=== PATIENT | female | born 1980 | race Caucasian/White ===

== ENCOUNTER → 2019-11-04 09:43 | Outpatient (CLI) | payer MEDICARE, SELFPAY ==
--- NOTE | 2019-11-04 09:52 | RAD_ITS ---
STUDY: AIR-CONTRAST UPPER GI SERIES. REASON FOR EXAM: Female, 39 years old. Altered bowel habits -- diarrhea about 6 times a day everyday, cramping -- started about 8 months ago, getting worse x 2 months FLUOROSCOPY TIME (if supplied): ( 50 seconds ) minutes/seconds TECHNIQUE: The patient ingested barium. Multiple images of the esophagus, stomach and duodenum were obtained. COMPARISON: None. FINDINGS: The esophagus is unremarkable. There is no evidence of obstruction. No mass lesion is seen. There is evidence of a small sliding hiatal hernia without gastroesophageal reflux. The remainder of the stomach and duodenum is unremarkable. IMPRESSION: Small sliding hiatal hernia without gastroesophageal reflux. Electronically Signed: Randy Burch, at 11:15 EST , Service support , STUDY: SMALL BOWEL FOLLOW-THROUGH EXAMINATION. REASON FOR EXAM: Female, 39 years old. Altered bowel habits -- diarrhea about 6 times a day everyday, cramping -- started about 8 months ago, getting worse x 2 months FLUOROSCOPY TIME (if supplied): ( 50 seconds ) minutes/seconds TECHNIQUE: The patient ingested barium. A small bowel follow-through examination was then obtained. COMPARISON: None. FINDINGS: The small bowel transit is normal. There is no evidence of intrinsic or extrinsic small bowel disease. The terminal ileum is unremarkable. RAD/Upper GI/w Small Bowel IMPRESSION: Unremarkable small bowel examination. Electronically Signed: Randy Burch, at 11:17 EST , Service support ,
== END ==
PROVIDERS: Family Provider Family Medicine; PCP Family Medicine; Referring Provider Nurse Practitioner Adult Health; Visit Provider Nurse Practitioner Adult Health
DX: R19.4 Change in bowel habit (principal)
CPT/HCPCS: 74246; 74248

== ENCOUNTER 2019-12-23 11:19 | Day surgery (SDC) | payer MEDICARE, SELFPAY ==
--- NOTE | 2019-12-22 18:12 | PCM.HP.BLA ---
History and Physical Date of Admission: 12/23/19 Sheila Quiroz a 39 year old female who is returning for follow up regarding altered bowel habits. I saw the patient in consultation on 10/21/19. That note has been reviewed. UGI-SBFT was essentially normal, showing only a small hiatal hernia. ? The patient has a history of DM, HTN, CYN, chronic fibromyalgia pain (sees pain management), and Bipolar 1 disorder. ? ? Presenting complaint: The patient presents today reporting a 9 month history of intermittent diarrhea. ?Has 4-6 bowel movements a day of loose stool. ?Bowels have become more frequent over the past 1 or 2 months. Stools are brown.?Denies any blood in the stool. ?Now is more watery type diarrhea. ?Does have occasional stool leakage in the middle of the night. ? ? Takes metformin in the morning with her breakfast. Her first bowel movement can be before she eats anything. ? Reports a 100 pound weight loss over the past 2 years. ?She has changed her diet cutting out flour and sugar. ? ? Using some [id number] Pepto-Bismol and Imodium, up to the maximum without significant improvement. ?Homeopathic things made it worse. ? She has tried to increase her fiber in her diet. ?She does have some cramping that occurs with the bowel movements. ? ? Component Latest Ref Rng & Units 10/11/2019 Shigella spp./Enteroinvasive E.coli DNA ? Not Detected Campylobacter jejuni/coli DNA ? Not Detected Shiga toxin-producing gene(s) ? Not Detected Salmonella spp. DNA ? Not Detected Specimen Request ? Specimen received in sterile container. Test Results ? Positive for lactoferrin, which may indicate presence of fecal white blood cells (A) C. difficile PCR ? Negative for C. difficile toxin by PCR ? ? REVIEW OF SYSTEMS: GENERAL: Weight loss Last 10 Encounter Wt Readings: Date: Wt: 11/27/2019 121.6 kg (268 lb) 10/21/2019 125.6 kg (277 lb) 10/21/2019 126.1 kg (278 lb) 09/23/2019 128.4 kg (283 lb) 07/25/2019 133 kg (293 lb 3.2 oz) 07/15/2019 132.9 kg (293 lb) 04/19/2017 161.5 kg (356 lb) 08/05/2016 156 kg (344 lb) 04/13/2016 160.6 kg (354 lb) 01/13/2016 166 kg (366 lb) RESPIRATORY: Negative for cough, hemoptysis, wheezing, COPD, dyspnea or shortness of breath CARDIOVASCULAR: Hypertension. No chest pain or palpitations. GI: The patient states that her appetite has been adequate. She does get hungry. There has been no nausea, no vomiting. She denies dysphagia and denies odynophagia. There has not been indigestion or heartburn. There has not been regurgitation. Bowel habits have been irregular. There has been diarrhea. There has not been constipation. The patient denies rectal bleeding. There has not been melena. Intermittent abdominal cramping that is located in the left lower and right lower quadrant. TRANSFER PROFESSOR: Negative for abnormal vaginal bleeding, abnormal vaginal discharge. LMP: 10/14/19. MUSCULOSKELETAL: muscle pain related to fibromyalgia. PSYCH: as reported above HEMATOLOGY/LYMPHOLOGY Negative for prolonged bleeding, bruising easily or swollen nodes ENDOCRINE: Takes an OTC thyroid supplement. Also on metformin. NEURO: No history of headaches, syncope, paralysis, seizures or tremors All other reviewed and negative other than HPI. ? ? PAST MEDICAL HISTORY ? Allergic rhinitis due to other allergen ? ? Bipolar I disorder, most recent episode (or current) unspecified ? ? hosp 04 mutile suicide attempts/Dr. Jenkins ? Hypercalcemia ? ? Migraine without aura ? ? Morbid obesity (HCC) ? ? stated BMI HT: 68 WT: 375 ? Myalgia and myositis, unspecified ? ? Other specified cardiac dysrhythmias(427.89) ? ? PMH - PAST MEDICAL HISTORY OF ? ? MONO ? Unspecified essential hypertension ? ? ? PAST SURGICAL HISTORY ? EXTRACTION, ERUPTED TOOTH OR EXPOSED ROOT (ELEVATION AND/OR FORCEPS REMOVAL) ? 1995 ? [place] teeth ? REMOVAL ADENOIDS,PRIMARY,<12 Y/O ? 1994 ? Adenoidectomy ? REMOVAL OF TONSILS,<12 Y/O ? 1994 ? Tonsillectomy ? ? FAMILY HISTORY ? No Known Problems Mother ? ? other (stiff persons disease) Father ? ? other (autoimmune disorder) Father ? ? Diabetes Brother ? ? Diabetes Maternal Grandmother ? ? ? CURRENT MEDICATIONS ? metFORMIN (GLUCOPHAGE) 500 mg tablet Take 1 tablet by mouth daily with breakfast. 30 tablet 2 ? topiramate (TOPAMAX) 100 mg tablet Take 100 mg by mouth once daily. ? ? ? topiramate (TOPAMAX) 200 mg tablet Take 400 mg by mouth once daily. ? ? ? gabapentin (NEURONTIN) 600 mg tablet Take 600 mg by mouth four times daily. ? ? ? valbenazine (INGREZZA) 80 mg cap Take 80 mg by mouth once daily. ? ? ? meloxicam (MOBIC) 15 mg tablet Take 15 mg by mouth once daily as needed. ? ? ? buprenorphine HCl (BELBUCA) [address] 150 mcg between cheek and gum q 12 HR. ? ? ? valbenazine (INGREZZA) 80 mg cap Take 80 mg by mouth daily at bedtime. ? ? ? lisdexamfetamine (VYVANSE) 60 mg capsule Take 60 mg by mouth once daily. ? ? ? LORazepam (ATIVAN) 1 mg tablet Take 1 mg by mouth every 8 hours as needed. ? ? ? blood sugar diagnostic (CiespaceTOUCH VERIO) test strip testing 2-3 times daily - dx E11.9 - Insulin: Yes 100 Strip 12 ? benztropine (COGENTIN) 2 mg tablet Take 2 mg by mouth four times daily. ? ? ? losartan (COZAAR) 25 mg tablet Take 25 mg by mouth twice daily. ? ? ? Lancets (ONE TOUCH DELICA) lancets Test blood sugar(s) 2-3 daily. Dx: uncontrolled diabetes (250.02). Insulin: Yes 100 Each 5 ? tretinoin (RETIN-A) 0.025 % topical cream Apply 1 application to affected area daily at bedtime. (Patient not taking: Reported on 04/19/2017) 45 g 2 ? furosemide 40 mg tablet take 1 1/2 tablet daily ? ? ? calcium carbonate (CALTRATE 600) 600 mg (1,500 mg) tab Take 1 tablet by mouth twice daily. ? 0 ? buprenorphine (BUTRANS) 5 mcg/hour Apply 1 Patch as directed once each week. ? 0 ? ziprasidone 80 mg capsule Take 80 mg by mouth once daily. ? DAILY MULTI-VITAMIN ORAL Take 1 tablet by mouth once daily. ? ? ? lamotrigine (LAMICTAL) 200 mg ORAL tablet Take 400 mg by mouth once daily. ? ? 0 ? carvedilol (COREG) 25 mg ORAL tablet Take by mouth. 2 tablets twice daily ? 0 ? ? SOCIAL HISTORY: Patient is single. She quit smoking 11 years ago. She reports her alcohol use as never. ? ? PHYSICAL EXAMINATION: Blood pressure 128/70, pulse 64, weight 121.6 kg (268 lb), last menstrual period 11/14/2019, SpO2 98 %. General Appearance: Well appearing, alert, in no acute distress, well-hydrated, well nourished. Skin: Skin color, texture, turgor normal, no suspicious rashes or lesions. Head: Normocephalic, no masses, lesions or abnormalities. Eyes: Anicteric sclera. Oropharynx: Lips, mucosa, and tongue normal, teeth and gums normal, oropharynx normal. Neck: Supple, no adenopathy; thyroid symmetric, normal size . Lungs: lungs clear to auscultation. No wheezing, rhonchi, rales. Heart: RRR without murmur . Abdomen: Abdomen soft, non-tender. Bowel sounds normal. No masses, organomegaly. Extremities: No deformities, edema, skin discoloration, clubbing or cyanosis. Peripheral Pulses: Normal. Neurologic: Gait normal. Sensation grossly intact. ? ? Impression: functional bowel/ IBS. Consider microscopic colitis ? ? Plan: This patient will be scheduled [facility] a colon[facility] She will be using Golytely as the prep. The preparation, as well as the procedure, has been explained in detail. The risks, benefits, anticipated outcomes and possible complications, including failure to complete the endoscopy and perforation, were mentioned. ?I explained the procedure in understandable terms and the patient was given printed material concerning the planned procedure. The patient had the opportunity to ask questions concerning the planned procedure. The patient freely consents to the planned procedure. ? The patient is asked to call with any questions for concerns, or should there be any change in health status between now and the scheduled procedure. ? I have reviewed the information that the MA entered for this encounter. I spent 30 minutes in the visit, with greater than 50% of the total [id number] time of the visit in counseling and coordination of care. ? Ronel Montana RN [employer].ASSOCIATE PROJECT MANAGER
[2019-12-23] VITALS (8 sets, daily range): BP systolic 97–118; BP diastolic 65–70; PULSE 53–61; RESP 16; TEMP 36.1–36.2; O2SAT 16–100; BMI 40.4
--- NOTE | 2019-12-23 | COLBX_PTH ---
PATIENT: PRADEEP CROWE LOC: EN U#:[id number] AGE/SX: 39/F ROOM: RE12/23/[address]: Dr. Anny Trimble MD : 1980 BED: DIS: 12/23/2019 SPEC #: [id number] RECD: 12/23/19 13:46 STATUS: MIKE REAlida #: [id number] SUZI: 12/23/19 00:[address]: Anny Trimble DEPT: SURGICAL PATHOLOGY RECD BY: Eliseo Sandra ENTERED: 12/23/19 13:46 SP TYPE: COLON BX OTHR DR: Dr. Torres Moore MD Tissues: COLON BIOPSY Procedures: Surgery Specimen Level IV HEADER OPERATION: Colonoscopy (MAC) PRE-OP DIAGNOSIS: Altered bowel habits TISSUE SUBMITTED: Random colon biopsies MICROSCOPIC DIAGNOSIS Colon, random biopsy: Fragments of colonic mucosa with pigment laden macrophages, consistent with melanosis coli. SJ:phi 12/24/19 MICROSCOPIC DESCRIPTION Slides are reviewed. GROSS DESCRIPTION Received in fixative is one container labeled with the patient's name and designated random colon biopsy. The specimen consists of multiple irregular fragments of light liu soft tissue that in aggregate measure 1.5 x 0.7 x 0.1 cm. The specimen is totally submitted in one cassette. / SJ:phi 12/23/19 TC:5 CPT: 31627
[2019-12-23 11:55] LABS: Bedside Glucose 108 mg/dL (70-110)
[2019-12-23] MEDS: Lactated Ringers 1,000 ML 75 ML IV (11:56)
[2019-12-23 11:59] LABS: Internal QC Validated? YES +Cl - CLEAR BKGD; Pregnancy, Urine Negative Negative
--- NOTE | 2019-12-23 13:30 | OP.CCLET_ITS ---
12/23/2019 Torres Moore Re : Colonoscopy procedure for Sheila Arias Teresa This procedure was performed on Monday, December 23, 2019. My impressions and recommendations are as follows: Impressions : - Preparation of the colon was fair. - Non-bleeding internal hemorrhoids. - Biopsies were taken with a cold forceps from the entire colon for evaluation of microscopic colitis. Recommendations : - Discharge patient to home (ambulatory). - Resume previous diet. - Continue present medications. - Await pathology results. - Return to nurse practitioner in 1 week. - No recommendation at this time regarding repeat colonoscopy due to age. My findings are described in the full procedure note, which is enclosed. If I can be of further assistance, please feel free to contact me at Doctor phone number(s): , Work: . Sincerely, MD Anny Vergara MD 12/23/2019 1:29:37 PM This report has been signed electronically.
--- NOTE | 2019-12-23 13:30 | OP.COLON_ITS ---
Patient Name: Sheila Quiroz Procedure Date: 12/23/2019 12:40 PM Date of : 1980 Age: 39 Procedure: Colonoscopy Indications: Generalized abdominal pain, Change in bowel habits Providers: Anny Trimble MD Referring MD: Torres Moore Medicines: See the Anesthesia note for documentation of the administered medications Patient Profile: Refer to note in patient chart for documentation of history and physical. Last Colonoscopy: none. The patient's first colonoscopy is today. Complications: No immediate complications. Estimated blood loss: Minimal. Procedure: Pre-Anesthesia Assessment: - see anesthesia note After I obtained informed consent, the scope was passed under direct vision. Throughout the procedure, the patient's blood pressure, pulse, and oxygen saturations were monitored continuously. The pediatric colonoscope was introduced through the anus and advanced to the cecum, identified by the appendiceal orifice, IC valve and transillumination. The colonoscopy was performed with difficulty due to a redundant colon. Successful completion of the procedure was aided by changing the patient to a supine position and manual pressure. The patient tolerated the procedure well. The quality of the bowel preparation was fair and poor, there was still retained fecal material. Therefore lavage and aspiration was done to clear the fecal material. This took some time. The marsh were cleared adequately, however, polyps less than 1 cm may be missed due to the inadequacyof the colon cleansing preparation. Scope In: 12:49:22 PM Scope Withdrawal Time 0 hours 16 minutes 35 seconds Scope Out: 1:24:24 PM Total Procedure Duration Time 0 hours 35 minutes 2 seconds Findings: The perianal and digital rectal examinations were normal. Pertinent negatives include normal sphincter tone. Non-bleeding internal hemorrhoids were found. Biopsies for histology were taken with a cold forceps from the entire colon for evaluation of microscopic colitis. Impression: - Preparation of the colon was fair. - Non-bleeding internal hemorrhoids. - Biopsies were taken with a cold forceps from the entire colon for evaluation of microscopic colitis. Recommendation: - Discharge patient to home (ambulatory). - Resume previous diet. - Continue present medications. - Await pathology results. - Return to nurse practitioner in 1 week. - No recommendation at this time regarding repeat colonoscopy due to age. Procedure Code(s): --- Professional --- 38082, Colonoscopy, flexible; with biopsy, single or multiple Diagnosis Code(s): --- Professional --- K64.8, Other hemorrhoids R10.84, Generalized abdominal pain R19.4, Change in bowel habit CPT copyright 2017 [employer]. All rights reserved. The codes documented in this report are preliminary and upon cigarette tipper review may be revised to meet current compliance requirements. MD Anny Vergara MD 12/23/2019 1:29:37 PM This report has been signed electronically. Number of Addenda: 0 Note Initiated On: 12/23/2019 12:40 PM
== END 2019-12-23 14:08 | disposition home or self-care (01) ==
LOC: EN 11:19 → AC 11:22
PROVIDERS: Anesthesiology; PCP Family Medicine; Referring Provider Surgery; Visit Provider Surgery
PROC: 0DJD8ZZ Inspection of Lower Intestinal Tract, Via Natural or Artificial Opening Endoscopic (ICD-10-PCS; CPT 45378; principal; 2019-12-23 12:25)
DX: K63.89 Other specified diseases of intestine (principal); K64.8 Other hemorrhoids; R10.84 Generalized abdominal pain; F31.9 Bipolar disorder, unspecified; E66.01 Morbid (severe) obesity due to excess calories; I10 Essential (primary) hypertension; E11.9 Type 2 diabetes mellitus without complications; Z68.44 Body mass index [BMI] 60.0-69.9, adult; Z79.4 Long term (current) use of insulin; Z87.891 Personal history of nicotine dependence
CPT/HCPCS: 45380; 81025; 82962; 88305; J7120; J2405

== ENCOUNTER → 2023-07-17 | Outpatient (CLI) | payer MEDICARE, MEDICAID, SELFPAY ==
--- NOTE | 2023-07-17 14:34 | NEURO_ITS ---
NCS and/or EMG Patient Report Ordering Doctor: Luis Vee DATE OF SERVICE: 07/17/23 Findings: Nerve conduction studies were performed in the right and left lower extremities. The right peroneal motor study recording the extensor digitorum brevis showed a normal amplitude, normal distal latency and normal conduction velocity. No conduction block or focal slowing was present across the fibular neck. The right tibial motor study recording the abductor hallucis brevis showed a reduced amplitude, normal distal latency and borderline conduction velocity. Right sural sensory response showed a reduced amplitude and slightly slowed conduction velocity. Right superficial peroneal sensory response showed a red uced amplitude and borderline conduction velocity. Right superficial radial sensory response showed a normal amplitude and conduction velocity. The left peroneal motor study recording the extensor digitorum brevis showed a normal amplitude, normal distal latency and normal conduction velocity. No conduction block or focal slowing was present across the fibular neck. The left tibial motor study recording the abductor hallucis brevis showed a borderline amplitude, normal distal latency and normal conduction velocity. Left sural sensory response showed a normal amplitude and conduction velocity. Left superficial peroneal sensory response showed a normal amplitude and conduction velocity. Needle EMG of the right lower extremity muscles was performed. No denervation was present in any muscle. Motor units were mildly polyphasic in the extensor hallucis longus. All other motor unit morphology, activation and recruitment patterns were normal. Impression: This is an abnormal study. 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 Given the prominent pes cavus deformity on examination, a hereditary neuropathy (i.e., CMT2) could be considered. Yomi Herman D.O. Multi Select Codes Neurology Neurology Interp Codes: 83464-05 Musc test done w/n test comp (interp) and 30671-38 Nr cndj test 9-10 studies (interp)
== END | disposition home or self-care (01) ==
LOC: PSN 12:44
PROVIDERS: PCP Family Medicine; Referring Provider Podiatrist; Visit Provider Podiatrist
DX: G62.9 Polyneuropathy, unspecified (principal); G60.8 Other hereditary and idiopathic neuropathies
CPT/HCPCS: 95885; 95911

== ENCOUNTER → 2025-05-20 | Outpatient (CLI) | payer MEDICARE, MEDICAID, SELFPAY ==
--- NOTE | 2025-05-20 12:45 | MRI_ITS ---
PROCEDURE: UPPER EXT JOINT ONLY(ROUTINE) 05/20/2025 REASON FOR EXAM: PAIN, RULE OUT CUFF TEAR TECHNIQUE: UPPER EXT JOINT ONLY(ROUTINE) Multiplanar and multisequence images were obtained without IV contrast administration. COMPARISON: April 21, 2025 x-ray FINDINGS: Bone Marrow: There is no bony contusion or occult fracture. Rotator cuff: There is no muscular atrophy. There is a full-thickness, full width tear of the supraspinatus with 1.8 cm of retraction. There is moderate distal infraspinatus tendinopathy and subscapularis tendinopathy without full-thickness tear or retraction. The teres minor appears intact. AC joint: The AC joint is aligned without evidence of separation. There is a type 3 acromion with impingement configuration. Labrum: The labrum appears intact. Biceps tendon: The biceps tendon is present in the biceps tendon groove, with intact anchors. Effusion: There is a small joint effusion which extends into the subacromial subdeltoid bursa. MRI/Upper Ext Joint Only(Routine) IMPRESSION: There is a full-thickness, full width tear of the supraspinatus with 1.8 cm of retraction. There is moderate distal infraspinatus tendinopathy and subscapularis tendinopa thy without full-thickness tear or retraction. There is a type 3 acromion with impingement configuration. There is a small joint effusion which extends into the subacromial subdeltoid b ursa. Reading Location: [facility]
== END | disposition home or self-care (01) ==
LOC: OPMRI 12:22
PROVIDERS: PCP Family Medicine; Referring Provider Orthopaedic Surgery Sports Medicine; Visit Provider Orthopaedic Surgery Sports Medicine
DX: M25.512 Pain in left shoulder (principal)
CPT/HCPCS: 73221

== ENCOUNTER 2025-06-11 05:18 | Day surgery (SDC) | payer MEDICARE, MEDICAID, SELFPAY ==
[2025-06-11] VITALS (9 sets, daily range): BP systolic 84–107; BP diastolic 50–77; PULSE 45–48; RESP 14–16; TEMP 36.2–36.4; O2SAT 93–100; BMI 29.1
--- OUTSIDE RECORDS SUMMARY | 2025-06-11 05:22 | XMS RPT_ITS | CCD ---
Author Organization [facility] Care Team Providers Care Fire Equipment Inspector Name Role Phone NAJMA URIBE, TORRES Primary Care Physician Torres Yao MD Primary Care Provider [phone] Torres Yao MD Primary Care Provider Torres Yao MD Primary Care Provider Torres Yao MD Primary Care Provider NAJMA URIBE, TORRES Primary Care Physician [phone] Torres Yao MD Primary Care Provider MATTIE BAEZ PA-C Attending TORRES Crocker MD Primary Care Unavailable NELDA LOWE Attending Unavailable TORRES YAO MD Primary Care Unavailable PILI STAFF ELECTRONIC WARFARE OFFICER-ADIEL CAMEJO Attending TORRES Crocker MD Primary Care Unavailable DR ANABEL TOLEDO MD Attending TORRES Elise MD Primary Care Unavailable Mallory STAFF ELECTRONIC WARFARE OFFICER.Beryl CAMEJO Unavailable Suppan STAFF ELECTRONIC WARFARE OFFICER.BASHIR, Ellen A Unavailable Suppsukhdev STAFF ELECTRONIC WARFARE OFFICER.GROUP RESERVATIONS COORDINATOR, Ellen A Unavailable Dr. Torres Yao MD Primary Care Provider Dr. Torres Yao MD Referring Provider Mahad Saleh MD Attending Provider [phone] Manuel Leary MD Attending Provider ELLEN RENE Referring Unavailable TORRES YAO Primary Care Unavailable FREEMAN SARABIA Attending Unavailable TORRES YAO Primary Care Unavailable FREEMAN SARABIA Attending Unavailable TORRES YAO Primary Care Unavailable ISAAC CANNON Admitting Unavailable IASAC CANNON Attending Unavailable NAJMA, TORRES J Primary Care Unavailable FREEMAN SARABIA Attending Unavailable NAJMA, TORRES J Primary Care Unavailable LEANDRA, FREEMAN Soto Attending Unavailable NAJMA, TORRES J Primary Care Unavailable LEANDRA, FREEMAN Soto Attending Unavailable NAJMA, TORRES J Primary Care Unavailable NAJMA, TORRES J Primary Care Unavailable SUPPSUKHDEV, ELLEN A Referring Unavailable NAJMA, TORRES Child Primary Care Unavailable SUPPSUKHDEV, ELLEN A Referring Unavailable LEMJAMES, JOANNA Attending Unavailable NAJMA, TORRES Child Primary Care Unavailable LEANDRA, FREEMAN Referring Unavailable LEMON, JOANNA Attending Unavailable NAJMA, TORRES J Primary Care Unavailable SUPPAN, ELLEN A Referring Unavailable NAJMA, TORRES Child Primary Care Unavailable SUPPSUKHDEV, ELLEN A Referring Unavailable SALVADOR HART Attending Unavailable NAJMA, TORRES Child Primary Care Unavailable SUPPSUKHDEV, ELLEN A Referring Unavailable NAJMA, TORRES Child Primary Care Unavailable FREEMAN SARABIA Referring Unavailable NAJMA, TORRES Child Primary Care Unavailable FREEMAN SARABIA Referring Unavailable NAJMA, TORRES Child Primary Care Unavailable SUPPSUKHDEV, ELLEN A Referring Unavailable NAJMA, TORRES Child Primary Care Unavailable SELF Referring Unavailable SUPPAN, ELLEN A Attending Unavailable NAJMA, TORRES Child Primary Care Unavailable [facility], TORRES Child Attending Unavailable NAJMA, TORRES Child Primary Care Unavailable SUPPSUKHDEV, ELLEN A Attending Unavailable NAJMA, TORRES Child Primary Care Unavailable SUPPSUKHDEV, ELLEN A Referring Unavailable SALVADOR HART Attending Unavailable [facility], TORRES Child Primary Care Unavailable SUPPSUKHDEV, ELLEN A Referring Unavailable SALVADOR HART Attending Unavailable NAJMA, TORRES Child Primary Care Unavailable SUPPSUKHDEV, ELLEN A Referring Unavailable NAJMA, TORRES Child Primary Care Unavailable NAJMA, TORRES Child Referring Unavailable NAJMA, TORRES Child Primary Care Unavailable SUPPAN, ELLEN A Attending Unavailable NAJMA, TORRES Child Primary Care Unavailable NAJMA, TORRES Child Attending Unavailable NAJMA, TORRES Child Primary Care Unavailable SUPPAN, ELLEN A Referring Unavailable JOANNA REY Attending Unavailable NAJMA, TORRES Child Primary Care Unavailable FREEMAN SARABIA Referring Unavailable JOVAN PAIGE Attending Unavailable NAJMA, TORRES Child Primary Care Unavailable SUPPSUKHDEV, ELLEN A Referring Unavailable NAJMA, TORRES Child Primary Care Unavailable SUPPSUKHDEV, ELLEN A Referring Unavailable SALVADOR HART Attending Unavailable NAJMA, TORRES Child Primary Care Unavailable SUPPAN, ELLEN A Referring Unavailable NAJMA, [facility] Primary Care Unavailable SUPPAN, ELLEN A Referring Unavailable SALVADOR HART Attending Unavailable [facility] TORRES Primary Care Unavailable ELLEN RENE Referring Unavailable SALVADOR HART Attending Unavailable Mahad Saleh MD Referring Provider PetreyTorres Primary Care Unavailable NajmaTorres Referring Unavailable Mahad Saleh Attending Unavailable [facility] Care Unavailable Mahad Saleh Attending Unavailable Mahad Saleh Referring Unavailable PetreyTorres Primary Care Unavailable Mahad Saleh Attending Unavailable Mahad Saleh Referring Unavailable Manuel Leary Attending Unavailable [facility] Primary Care Unavailable [facility] Primary Care Unavailable [facility] Referring Unavailable Mahad Saleh Attending Unavailable Allergies Allergy Classification Reported Allergen(s) Allergy Type Date of Onset Reaction(s) Facility Lincosamides (antibiotic) (1 source) Clindamycin Drug Allergy 7 Diarrhea [facility] Work Phone: Macrolides (antibiotic) (1 source) Azithromycin Drug Allergy 9 Itching [facility] Penicillins (antibiotic) (1 source) Penicillins Drug Allergy 5 Rash [facility] Work Phone: Quinolones (antibiotic) (1 source) levoFLOXacin Drug Allergy 9 Swelling [facility] Sulfonamides (antibiotic) (1 source) Sulfonamides (Antibiotic) Drug Allergy 2 Unknown [facility] (20 sources) Clindamycin; Translations: [clindamycin] Drug Allergy 7 Diarrhea [facility] (4 sources) Penicillin; Translations: [penicillin] Drug Allergy [facility] (4 sources) Sulfonamides (Antibiotic); Translations: [sulfa drugs] Drug allergy [facility] (20 sources) Azithromycin; Translations: [AZITHROMYCIN] Drug Allergy 9 Itching [facility] (20 sources) levoFLOXacin; Translations: [LEVOFLOXACIN] Drug Allergy 9 Swelling [facility] Work Phone: (14 sources) Penicillins; Translations: [PENICILLINS] Propensity to adverse reactions 5 [facility] Work Phone: (20 sources) Sulfonamides (Antibiotic); Translations: [SULFA (SULFONAMIDE ANTIBIOTICS)] Drug Allergy 2 Unknown [facility] (20 sources) Penicillins Propensity to adverse reactions 5 [facility] Work Phone: (14 sources) Penicillins Propensity to adverse reactions 5 [facility] Work Phone: (4 sources) Penicillins Allergy to substance 5 Anaphylaxis [facility] (1 source) Penicillins Drug allergy (disorder) 5 [facility] Repository Medications Current Medications Medication Drug Class(es) Dates Sig (Normalized) Sig (Original) Albuterol (2 sources) beta2-Adrenergic Agonist Start: 05-04-2010 take 2.5 mg by inhalation every two hours as needed for wheezing Ventolin/Proventil 2.5 mg, Inhalation, q2hr, PRN, as needed for wheezing Start Date: 05/04/10 Status: Ordered benztropine mesylate 2 mg oral tablet (20 sources) Anticholinergic, Antihistamine Start: 02-14-2017 benztropine 2 mg oral tablet Dose : 2 mg = 1 tab(s), Oral, QID, # 180 tab(s) Start Date: 02/14/17 Status: Ordered Comment on above: Take 2 mg by mouth f our times daily. Blood-Glucose Meter monitoring kit (1 source) Start: 01-31-2022 End: 02-01-2022 Blood-Glucose Meter monitoring kit Indications: Type 2 diabetes mellitus without complication, with long-term current use of insulin ([facility]) Glucose Meter of Choice - Kit - Dx: Type 2 DM - Uncontrolled E11.65 1 Each 0 01/31/2022 02/01/2022 Active Comment on above: Glucose Meter of Cho ice - Kit - Dx: Type 2 DM - Uncontrolled E11.65 carvedilol 25 mg oral tablet (4 sources) alpha-Adrenergic Zion, beta-Adrenergic Zion Start: 12-20-2019 take 2 tablets by mouth twice daily Carvedilol 25 MG tablet Active 50 mg PO TWICE A DAY December 20, 2019 1:00am diclofenac sodium 0.01 mg/mg topical gel (4 sources) Nonsteroidal Anti-inflammatory Drug Start: 12-20-2019 Diclofenac Sodium 100 GM gel Active 100 g TP NEEDED as needed for Pain Or Fever December 20, 2019 1:00am diclofenac sodium-menthol (DITHOL) 1.5-10 % combo pack (20 sources) Start: 01-23-2019 diclofenac sodium-menthol (DITHOL) 1.5-10 % combo pack Apply to affected area. 01/23/2019 Active Start: 01-23-2019 diclofenac sod ium-menthol (DITHOL) 1.5-10 % combo pack Apply to affected area. 0 01/23/2019 Active Comment on above: Apply to affected ar ea. DULoxetine 60 mg delayed release oral capsule (2 sources) Serotonin and Norepinephrine Reuptake Inhibitor Start: 02-14-2017 Cymbalta 60 mg oral delayed release capsule Dose : 60 mg = 1 cap(s), Oral, BID Start Date: 02/14/17 Status: Ordered furosemide 40 mg oral tablet (8 sources) Loop Diuretic Start: 05-31-2021 Lasix 40 mg oral tablet Dose : 60 mg = 1.5 tab(s), Oral, qDay, # 135 tab(s), 3 Refill(s), Pharmacy: [address], 172.7, cm, 05/31/21 14:30:00 EDT, Height, kg, 05/31/21 14:30:00 EDT, Dosing Weight Start Date: 05/31/21 Status: Ordered Start: 12-20-2019 End: 03-07-2022 Furosemide 40 MG tablet Acti ve 60 mg PO DAILY December 20, 2019 1:00am Comment on above: Take 60 mg by mouth once daily. hydrOXYzine pamoate 50 mg oral capsule (4 sources) Antihistamine Start: 06-01-2020 hydrOXYzine pamoate 50 mg oral capsule Dose : 50 mg = 1 cap(s), Oral, TID, 0 Refill(s) Start Date: 06/01/20 Status: Ordered Ipratropium (2 sources) Anticholinergic Start: 05-04-2010 Atrovent 500 mcg, Nebulized, QID Start Date: 05/04/10 Status: Ordered ketoconazole 20 mg/ml medicated shampoo (20 sources) Azole Antifungal Start: 01-31-2022 ketoconazole (NIZORAL) 2 % shampoo 01/31/2022 Active lamoTRIgine 2 mg oral tablet (20 sources) Mood Stabilizer, Anti-epileptic Agent Start: 06-01-2020 lamoTRIgine 2 mg oral tablet, chewable dispersible Dose : 2 mg = 1 tab(s), Chewed, BID, # 180 tab(s), 0 Refill(s), >= 10 kg and Start Date: 06/01/20 Status: Ordered Start: 02-14-2017 LaMICtal 200 m g oral tablet Dose : 400 mg = 2 tab(s), Oral, qDay, # 180 tab(s) Start Date: 02/14/17 Status: Ordered Start: 02-14-2017 LaMICtal 100 m g oral tablet Dose : 100 mg = 1 tab(s), Oral, qDay, # 180 tab(s) Start Date: 02/14/17 Status: Ordered Start: 11-14-2011 take 2 tablets by mo nmh once daily lamoTRIgine (LAMICTAL) 200 mg tablet Indications: Bipolar I disorder, most recent episode (or current) unspecified Take 400 mg by mouth once daily. 0 11/14/2011 Active Comment on above: Take 400 mg by mouth once daily. LORazepam 2 mg oral tablet (3 sources) Benzodiazepine Start: 02-29-2024 End: 03-02-2024 Ativan 2 mg oral tablet Dose : 2 mg = 1 tab(s), Oral, qHS, PRN for insomnia, X 2 day(s), # 4 tab(s), 0 Refill(s), 03/02/24 5:46:00 PM EDT, Insomnia, 84.1 Start Date: 02/29/24 Stop Date: 03/02/24 Status: Ordered Start: 05-02-2010 take 1 tablet by tanvi three times daily Ativan 1 mg oral tablet 1 mg, = 1 tab(s), PO, TID Start Date: 05/02/10 Status: Ordered losartan potassium 25 mg oral tablet (20 sources) Angiotensin 2 Receptor Zion Start: 06-04-2021 End: 08-28-2024 take 1 tablet by mouth twice daily losartan 25 mg oral tablet 1 tab(s), Oral, BID, # 180 tab(s), 3 Refill(s), [facility]: [facility] #[id number], 172.7, cm, 06/26/23 13:06:00 EDT, Height, kg, 06/26/23 13:06:00 EDT, Dosing Weight Start Date: 06/26/23 Status: Ordered Start: 12-20-2019 take 1 tablet by tanvi th once daily losartan (COZAAR) 25 mg tablet Take 25 mg by mouth once daily. 01/22/2025 Active Comment on above: Take 25 mg by mouth twice daily. meclizine hydrochloride 12.5 mg oral tablet (2 sources) Antiemetic Start: 07-06-20 meclizine 12.5 mg oral tablet Dose : 12.5 mg = 1 tab(s), Oral, TID, PRN as needed for motion sickness, # 20 tab(s), 0 Refill(s) Start Date: 07/06/21 Status: Ordered meloxicam 15 mg oral tablet (20 sources) Nonsteroidal Anti-inflammatory Drug Start: 04-21-20 End: 09-12-20 25 take 0.5-1 tablets by mouth once daily as needed for pain meloxicam (MOBIC) 15 mg tablet Indications: Primary osteoarthritis of both knees Take 0.5-1 tablets by mouth once daily as needed for pain. 30 tablet 3 05/15/2025 09/12/2025 Active Start: 11-26-2020 meloxicam (MOB IC) 15 mg tablet Take 7.5-15 mg by mouth once daily as needed. 0 11/26/2020 Active Comment on above: Take 7.5-15 mg by mo ut once daily as needed. Take 0.5-1 tablets b y mouth once daily as needed. Take 0.5-1 tablets b y mouth once daily as needed for pain. metaxalone 800 mg oral tablet (20 sources) Start: 1 End: 3 metaxalone 800 mg oral tablet Dose : 800 mg = 1 tab(s), Oral, TID, 0 Refill(s) Start Date: 05/31/21 Status: Ordered Comment on above: Take 800 mg by mouth three times daily. Take 1 tablet by tanvi th three times daily. 24 hr metFORMIN hydrochloride 500 mg extended release oral tablet (4 sources) Biguanide Start: 0 take 1 tablet by mouth once daily Metformin 500 MG tablet Active 500 mg PO DAILY December 20, 2019 1:00am DIABETES cn-[id number]-FA-Ca carb-vit K (WOMEN'S MULTIVITAMIN) 18 mg-400 mcg- 500 mg-50 mcg tab (20 sources) Start: 8 qy-sy-[id number]-FA-Ca carb-vit K (WOMEN'S MULTIVITAMIN) 18 mg-400 mcg- 500 mg-50 mcg tab Women's Multivitamin 18 mg-400 mcg- 500 mg-50 mcg tablet 02/15/2018 Active Start: 02-15-2018 xu-wv-szft-FA- Ca carb-vit K (WOMEN'S MULTIVITAMIN) 18 mg-400 mcg- 500 mg-50 mcg tab Women's Multivitamin 18 mg-400 mcg- 500 mg-50 mcg tablet 0 02/15/2018 Active Comment on above: Women's Multivitamin 18 mg-400 mcg- 500 mg-50 mcg tablet perphenazine 2 mg oral tablet (4 sources) Phenothiazine Start: 12-20-19 20 take 1 tablet by mouth once daily Perphenazine 2 MG tablet Active 2 mg PO DAILY December 20, 2019 1:00am Potassium Chloride (10 sources) Start: 05-31-20 21 potassium chloride 8 mEq (600 mg) oral capsule, extended release Dose : 16 mEq = 2 cap(s), Oral, BID, # 120 cap(s), 3 Refill(s), Pharmacy: [address], 172.7, cm, 05/31/21 14:30:00 EDT, Height, kg, 05/31/21 14:30:00 EDT, Dosing Weight Start Date: 05/31/21 Status: Ordered Start: 04-23-2021 End: 03-07-2022 take 2 capsules by mouth once daily potassium chloride SR (MICRO-K) 8 mEq cpER Take 2 capsules by mouth once daily. 60 capsule 1 04/23/2021 03/07/2022 Discontinued (Discontinued by another Health Care Provider) Start: 09-02-2020 End: 07-20-2022 Potassium Chloride (SLOW-K) 8 mEq tablet Comment on above: Take 2 capsules by m outh once daily. K-Tab 8 mEq tablet e xtended release pregabalin 150 mg oral capsule (20 sources) Start: 08-28-2024 End: 09-12-2025 take 1 capsule by mouth three times daily pregabalin (LYRICA) 150 mg capsule Indications: Fibromyalgia Take 1 capsule by mouth three times a day for 120 days. 90 capsule 3 05/15/2025 09/12/2025 Active Start: 05-23-2024 End: 11-13-2024 take 1 capsule by mouth three times daily pregabalin (LYRICA) 100 mg capsule Indications: Fibromyalgia Take 1 capsule by mouth three times a day for 120 days. 90 capsule 3 07/16/2024 08/28/2024 Discontinued Start: 05-13-2024 End: 06-12-2024 pregabalin (LYRICA) 75 mg ca psule Indications: Fibromyalgia Take 1 capsule by mouth as directed for 30 days. Take one at HS for 3 days, then BID for 3 days, then TID 81 capsule 0 05/13/2024 05/23/2024 Discontinued Start: 09-28-2023 End: 02-07-2024 take 1 capsule by mouth three times daily pregabalin (LYRICA) 75 mg capsule Indications: Fibromyalgia Take 1 capsule by mouth three times a day for 120 days. 90 capsule 3 10/09/2023 02/07/2024 Discontinued Start: 07-20-2023 End: 11-17-2023 take 1 capsule by mouth twice daily pregabalin (LYRICA) 75 mg capsule Indications: Fibromyalgia Take 1 capsule by mouth twice daily for 120 days. 60 capsule 3 07/20/2023 09/28/2023 Discontinued Start: 07-13-2023 End: 11-10-2023 take 1 capsule by mouth three times daily pregabalin (LYRICA) 50 mg capsule Indications: Fibromyalgia Take 1 capsule by mouth three times daily for 120 days. 90 capsule 3 07/13/2023 07/20/2023 Discontinued (Dosage adjustment) Start: 06-26-2023 End: 10-24-2023 take 1 capsule by mouth twice daily pregabalin (LYRICA) 50 mg capsule Indications: Fibromyalgia Take 1 capsule by mouth twice daily for 120 days. 60 capsule 3 06/26/2023 07/13/2023 Discontinued Start: 05-26-2023 End: 07-13-2023 pregabalin 25 mg oral capsul e Dose : 25 mg = 1 cap(s), Oral, QID, 0 Refill(s), 93.2 Start Date: 06/26/23 Status: Ordered Comment on above: Take 1 capsule by [facility] as directed for 28 days. One QHS x 1 week, BID x 1 week, TID x 1 week, then one in the AM, one in the afternoon, and two in the PM x 1 week. Take 1 capsule by [facility] twice daily for 120 days. Take 50 mg by mouth twice daily. Take 1 capsule by [facility] three times daily for 120 days. Take 75 mg by mouth twice daily. Take 1 capsule by [facility] three times a day for 120 days. spironolactone 25 mg oral tablet (20 sources) Aldosterone Antagonist Start: 06-26-20 take 2 tablets by mouth in the morning, then take 1 tablet by mouth in the morning spironolactone 25 mg oral tablet See Instructions, Take 2 tabs in am and 1 tab in am, # 270 tab(s), 3 Refill(s), [facility]acy: [facility] #[id number], 172.7, cm, 06/26/23 13:06:00 EDT, Height, kg, 06/26/23 13:06:00 EDT, Dosing Weight Start Date: 06/26/23 Status: Ordered Start: 09-16-2021 spironolactone 25 mg oral tablet Dose : 25 mg = 1 tab(s), Oral, BID, # 60 tab(s), 5 Refill(s), Pharmacy: [facility], 172.7, cm, 09/16/21 11:26:00 EST, Height, kg, 09/16/21 11:26:00 EST, Dosing Weight Start Date: 09/16/21 Status: Ordered take 1 tablet by [facility] three times daily spironolactone (ALDACTONE) 25 mg tablet Take 25 mg by mouth three times a day. Active Comment on above: Take 25 mg by mouth twice daily. Take 25 mg by mouth three times a day. topiramate 100 mg oral tablet (20 sources) Start: 06-01-2020 take 1 mg by mouth once daily Topamax 100 mg oral tablet mg = tab(s), Oral, Daily, 0 Refill(s) Start Date: 06/01/20 Status: Ordered Start: 06-01-2020 take 1 mg by mouth twice daily Topamax 100 mg oral tablet mg = tab(s), Oral, BID, 0 Refill(s) Start Date: 06/01/20 Status: Ordered Start: 12-20-2019 Topiramate 200 MG capsule,sprinkle,ER 24hr Active 500 mg PO AT BEDTIME December 20, 2019 1:00am MOOD STABILIZER take 2 tablets by mo uth once daily topiramate (TOPAMAX) 200 mg tablet Take 400 mg by mouth once daily. Active Comment on above: Take 100 mg by mouth once daily. Take 400 mg by mouth once daily. traZODone hydrochloride 100 mg oral tablet (20 sources) Serotonin Reuptake Inhibitor Start: 05-22-2025 Trazodone 100 mg tablet Active mg PO May 22, 2025 12:00am Start: 05-16-2025 traZODone (SHAD YREL) 100 mg tablet Indications: Chronic insomnia , Panic disorder Use one half to one tab at bedtime as needed. 30 tablet 1 05/16/2025 Active Start: 06-03-2020 End: 04-03-2024 take 1 tablet by mouth once daily at bedtime traZODone (DESYREL) 100 mg tablet Take 1 tablet by mouth daily at bedtime. 06/03/2020 03/04/2024 Discontinued (Course of therapy completed) Comment on above: Take 1 tablet by tanvi th daily at bedtime. valbenazine 80 mg oral capsule (20 sources) Start: 12-20-19 take 1 capsule by mouth once daily Valbenazine 80 MG capsule Active 80 mg PO DAILY December 20, 2019 1:00am HEAVEN WILDE Comment on above: Take 80 mg by mouth once daily. ziprasidone 60 mg oral capsule (20 sources) Atypical Antipsychotic Start: 12-17-19 take 2 capsules by mouth once daily ziprasidone (GEODON) 60 mg capsule Take 120 mg by mouth once daily. 12/17/2020 Active Start: 12-17-2020 take 1 capsule by mo uth once daily ziprasidone (GEODON) 60 mg capsule Take 60 mg by mouth once daily. 0 12/17/2020 Active Start: 06-01-2020 take 1 capsule by mo uth three times daily ziprasidone (GEODON) 20 mg capsule Take 20 mg by mouth three times daily. 06/01/2020 Active Start: 06-01-2020 take 1 capsule by [facility] twice daily at mealtime ziprasidone (GEODON) 20 mg capsule Take 20 mg by mouth twice daily with meals. 0 06/01/2020 Active Start: 12-20-2019 Ziprasidone Hc l 80 MG capsule Active 100 mg PO DAILY December 20, 2019 1:00am BIPOLAR Start: 02-14-2017 ziprasidone 80 mg oral capsule Dose : 80 mg = 1 cap(s), Oral, BID, # 60 cap(s) Start Date: 02/14/17 Status: Ordered Comment on above: Take 20 mg by mouth twice daily with meals. Take 60 mg by mouth once daily. Take 20 mg by mouth three times daily. Completed/Discontinued Medications Medication Drug Class(es) Dates Sig (Normalized) Sig (Original) asenapine 5 mg sublingual tablet (5 sources) Atypical Antipsychotic Start: 04-26-2024 End: 05-23-2024 take 5 mg under the tongue once daily at bedtime asenapine sublingual (SAPHRIS) 5 mg subl Dissolve 5 mg under the tongue daily at bedtime. 04/26/2024 05/23/2024 Discontinued (Course of therapy completed) Belbuca 150 mcg buccal film (2 sources) Start: 06-01-2020 Belbuca 150 mcg buccal film Dose : 150 mcg = 1 EA, Buccal, q12h, 0 Refill(s), 139.8 Start Date: 06/01/20 Status: Ordered 168 hr buprenorphine 0.01 mg/hr transdermal system (20 sources) Partial Opioid Agonist Start: 04-11-2024 End: 02-14-2025 apply 1 dose transdermal route every hour buprenorphine (BUTRANS) 10 mcg/hour Indications: Primary osteoarthritis of both knees Apply 1 Patch as directed one time a week for 28 days. As directed. Do not start before April 11, 2024. 4 Patch 04/11/2024 02/14/2025 Discontinued (Discontinued by Patient) Start: 01-18-2024 End: 04-11-2024 apply 1 dose transdermal route every hour buprenorphine (BUTRANS) 20 mcg/hour transdermal patch Indications: Primary osteoarthritis of both knees Apply 1 Patch as directed one time a week for 28 days. Do not start before January 18, 2024. 4 Patch 01/18/2024 02/08/2024 Discontinued Start: 11-21-2023 End: 01-16-2024 apply 1 dose transdermal route every hour buprenorphine (BUTRANS) 20 mcg/hour transdermal patch Indications: Primary osteoarthritis of both knees Apply 1 Patch as directed one time a week for 28 days. Do not start before December 19, 2023. 4 Patch 0 12/19/2023 01/15/2024 Discontinued Start: 09-26-2023 End: 10-24-2023 apply 1 dose transdermal route every week buprenorphine (BUTRANS) 20 mcg/hour transdermal patch Indications: Chronic pain syndrome Apply 1 Patch as directed one time a week for 28 days. Apply one patch to fatty area for 7 days. Do not start until 12 hours after last belbuca taken. 4 Patch 0 09/26/2023 10/24/2023 Active Start: 05-21-2023 End: 10-21-2023 buprenorphine (BELBUCA) 150 mcg buccal film Indications: Primary osteoarthritis of both knees Place 1 Film between cheek and gum every 12 hours for 30 days. Do not start before September 21, 2023. 60 Film 0 09/21/2023 09/26/2023 Discontinued (Cost of medication) Start: 05-24-2022 End: 03-24-2023 buprenorphine (BELBUCA) 150 mcg buccal film Indications: Primary osteoarthritis of both knees Place 1 Film between cheek and gum q 12 HR for 30 days. 60 Film 0 11/22/2022 12/21/2022 Discontinued Start: 04-21-2022 End: 05-19-2022 buprenorphine (BELBUCA) 150 mcg buccal film Indications: Primary osteoarthritis of both knees Place 1 Film between cheek and gum q 12 HR. 60 Film 0 04/21/2022 05/19/2022 Discontinued Start: 06-01-2020 Belbuca 150 mc g buccal film Dose : 150 mcg = 1 EA, Buccal, q12h, 0 Refill(s), 139.8 Start Date: 06/01/20 Status: Ordered Start: 12-20-2019 Buprenorphine Hcl 150 MCG film Active 150 ug BC TWICE A DAY December 20, 2019 1:00am PAIN Start: 02-14-2017 Butrans 20 mcg /hr transdermal film, extended release Apply 1 patch(es), Topical, qWeek Start Date: 02/14/17 Status: Ordered take 150 ug by mouth (buccal) every twelve hours buprenorphine HCl (BELBUCA) [address] 150 mcg between cheek and gum q 12 HR. 0 Active Comment on above: Place 150 mcg betwee n cheek and gum q [address] 1 Film between cheek and gum q [address] 1 Film between cheek and gum q 12 HR for 30 days. Do not start before May 24, 2022. Place 1 Film between cheek and gum q 12 HR for 30 days. Do not start before June 23, 2022. Place 1 Film between cheek and gum q 12 HR for 30 days. Do not start before July 23, 2022. Place 1 Film between cheek and gum q 12 HR for 30 days. Do not start before August 22, 2022. Place 1 Film between cheek and gum q 12 HR for 30 days. Do not start before September 21, 2022. Place 1 Film between cheek and gum q 12 HR for 30 days. Do not start before October 20, 2022. Place 1 Film between cheek and gum q 12 HR [address] 1 Film between cheek and gum q 12 HR for 30 days. Do not start before December 23, 2022. Place 1 Film between cheek and gum q 12 HR for 30 days. Do not start before January 22, 2023. Place 1 Film between cheek and gum q 12 HR for 30 days. Do not start before February 22, 2023. Place 1 Film between cheek and gum q 12 HR for 30 days. Do not start before May 21, 2023. Place 1 Film between cheek and gum every 12 hours for 30 days. Do not start before June 21, 2023. Place 1 Film between cheek and gum every 12 hours for 30 days. Do not start before July 21, 2023. Place 1 Film between cheek and gum every [address] 1 Film between cheek and gum every 12 hours for 30 days. Do not start before September 21, 2023. Apply 1 Patch as dir ected one time a week for 28 days. Apply one patch to fatty area for 7 days. Do not start until 12 hours after last belbuca taken. Apply 1 Patch as dir ected one time a week for 28 days. Do not start before November 21, 2023. Apply 1 Patch as dir ected one time a week for 28 days. Do not start before December 19, 2023. Apply 1 Patch as dir ected one time a week for 28 days. Do not start before January 18, 2024. Apply 1 Patch as dir ected one time a week for 28 days. Do not start before February 15, 2024. cyclobenzaprine hydrochloride 10 mg oral tablet (20 sources) Muscle Relaxant Start: 11-30-19 End: 06-13-20 take 1 tablet by mouth three times daily as needed for muscle spasms cyclobenzaprine (FLEXERIL) 10 mg tablet Indications: Fibromyalgia Take 1 tablet by mouth three times a day as needed for muscle spasm. 90 tablet 3 08/25/2023 02/08/2024 Discontinued Start: 12-20-2019 take 1 tablet by tanvi three times daily as needed Cyclobenzaprine 5 MG tablet Active 5 mg PO THREE TIMES A DAY as needed for MUSCLE RELAXANT December 20, 2019 1:00am Comment on above: Take 1 tablet by tanvi three times daily as needed for muscle spasm. Take 1 tablet by tanvi th three times a day as needed for muscle spasm. DAILY MULTI-VITAMIN ORAL (20 sources) End: 02-07-2024 take 1 tablet by mouth once daily DAILY MULTI-VITAMIN ORAL Take 1 tablet by mouth once daily. 02/07/2024 Discontinued (Duplicate Entry) End: 02-07-2024 take 1 tablet by mouth once daily DAILY MULTI-VITAMIN ORAL Take 1 tablet by mouth once daily. 0 02/07/2024 Discontinued (Duplicate Entry) take 1 tablet by tanvi once daily DAILY MULTI-VITAMIN ORAL Take 1 tablet by mouth once daily. 0 Active Comment on above: Take 1 tablet by tanvi th once daily. gabapentin 600 mg oral tablet (20 sources) Anti-epileptic Agent Start: 06-01-2020 End: 05-26-2023 take 1 tablet by mouth four times daily gabapentin (NEURONTIN) 600 mg tablet Indications: Primary osteoarthritis of both knees Take 1 tablet by mouth four times daily for 120 days. 120 tablet 3 09/01/2022 12/27/2022 Discontinued Start: 12-20-2019 take 1 tablet by tnavi every four hours Gabapentin 600 MG tablet extended release 24 hr Active 600 mg PO Q4H December 20, 2019 1:00am Comment on above: Take 600 mg by mouth four times daily. Take 1 tablet by tanvi four times daily for 30 days. Take 1 tablet by tanvi th four times daily for 120 days. take 1 tablet by tanvi th four times a day methocarbamol 500 mg oral tablet (6 sources) Muscle Relaxant Start: 2023 End: 2023 take 1 tablet by mouth every six hours as needed for pain methocarbamol (ROBAXIN) 500 mg tablet Indications: Acute right-sided low back pain without sciatica Take 1 tablet by mouth every 6 hours as needed (Pain). 90 tablet 05/10/2024 06/09/2024 methylPREDNISolone 4 mg oral tablet (5 sources) Corticosteroid Start: 2021 End: 2021 take 1 tablet by mouth once methylPREDNISolone (MEDROL DOSE-PACK) 4 mg Dose-Pack Indications: Primary osteoarthritis of both knees , Sacroiliitis (HCC) Take 1 tablet by mouth as directed. As Instructed per package 1 Package 0 04/21/2022 07/20/2022 Discontinued (Course of therapy completed) Comment on above: Take 1 tablet by tanvi as directed. As Instructed per package tiZANidine 4 mg oral tablet (11 sources) Central alpha-2 Adrenergic Agonist Start: 2023 End: 2023 take 1 tablet by mouth twice daily as needed for muscle spasms tiZANidine (ZANAFLEX) 4 mg tablet Indications: Lumbar strain, subsequent encounter Take 1 tablet by mouth two times a day as needed (muscle spasms). 60 tablet 2 06/13/2024 08/28/2024 Discontinued (Discontinued by another Health Care Provider) zolpidem tartrate 10 mg oral tablet (20 sources) gamma-Aminobutyric Acid-ergic Agonist Start: 2020 End: 2023 Ambien 10 mg oral tablet Dose : 10 mg = 1 tab(s), Oral, qHS, 0 Refill(s), 91 Start Date: 09/16/21 Status: Ordered Comment on above: Take 10 mg by mouth daily at bedtime. Problems Active Problems Problem Classification Problem Date Documented Da te Episodic/Chronic Abdominal pain (1 source) Abdominal discomfort; Translations: [Unspecified abdominal pain] 01-29-2024 Episodic Anxiety disorders (20 sources) Anxiety; Translations: [Generalized anxiety disorder] Onset: 02-15-2018 02-14-2017 Chronic Cardiac dysrhythmias (4 sources) Palpitations 02-04-2020 Episodic Essential hypertension (20 sources) Hypertensive disorder; Translations: [Benign essential hypertension] Onset: 06-16-2009 02-14-2017 Chronic Fluid and electrolyte disorders (1 source) Hypokalemia; Translations: [Hypokalemia] Episodic Gastrointestinal hemorrhage (2 sources) Rectal hemorrhage; Translations: [Hemorrhage of anus and rectum] 01-29-2024 Episodic Genitourinary symptoms and ill-defined conditions (6 sources) Retention of urine; Translations: [Retention of urine, unspecified] Onset: 05-05-2025 05-05-2025 Episodic Headache; including migraine (1 source) Migraine without aura, not refractory ; Translations: [Migraine without aura, not intractable, without status migrainosus] 10-13-2023 Chronic Malaise and fatigue (1 source) Fatigue; Translations: [Other fatigue] 10-13-2023 Episodic Miscellaneous mental health disorders (5 sources) Chronic insomnia; Translations: [Psychophysiologic insomnia] Onset: 05-16-2025 03-05-2024 Chronic Mood disorders (20 sources) Bipolar I disorder; Translations: [Bipolar disorder, unspecified] Onset: 11-29-2006 02-14-2017 Chronic Open wounds of extremities (1 source) Laceration of thumb; Translations: [Laceration without foreign body of unspecified thumb without damage to nail, initial encounter] Onset: 01-08-2022 Episodic Osteoarthritis (20 sources) Osteoarthritis of knee; Translations: [Unilateral primary osteoarthritis, unspecified knee] Onset: 03-18-2020 Resolved: 04-12-2023 03-29-2022 Chronic Other aftercare (1 source) Long-term current use of insulin; Translations: [supervisor intermediates (current) use of insulin] 03-14-2025 Episodic Other aftercare (1 source) supervisor intermediates (current) use of insulin; Translations: [supervisor intermediates (current) use of insulin (HCC)] Onset: 03-14-2025 Episodic Other bone disease and musculoskeletal deformities (1 source) Disorder of bone; Translations: [Disorder of bone, unspecified] 03-14-2025 Episodic Other bone disease and musculoskeletal deformities (1 source) Disorder of bone, unspecified; Translations: [Disorder of bone, unspecified] Onset: 03-14-2025 Episodic Other connective tissue disease (4 sources) Fibromyositis 02-14-2017 Episodic Other connective tissue disease (1 source) Bursitis of left shoulder; Translations: [Bursitis of left shoulder] 05-30-2023 Episodic Other connective tissue disease (4 sources) Tear of left rotator cuff; Translations: [Unspecified rotator cuff tear or rupture of left shoulder, not specified as traumatic] 05-22-2025 Episodic Other connective tissue disease (1 source) Unspecified rotator cuff tear or rupture of left shoulder, not specified as traumatic; Translations: [Unspecified rotator cuff tear or rupture of left shoulder, not specified as traumatic] Onset: 05-22-2025 Episodic Other gastrointestinal disorders (2 sources) Chronic constipation; Translations: [Other constipation] 01-29-2024 Episodic Other nervous system disorders (20 sources) Chronic pain syndrome; Translations: [Chronic pain syndrome] Onset: 10-20-2007 04-19-2017 Chronic Other nervous system disorders (20 sources) Bilateral peripheral neuropathy of lower limbs; Translations: [Unspecified mononeuropathy of bilateral lower limbs] Onset: 02-07-2024 08-25-2023 Chronic Other nervous system disorders (1 source) Polyneuropathy; Translations: [Other specified polyneuropathies] 10-13-2023 Chronic Other nervous system disorders (2 sources) Unspecified mononeuropathy of bilateral lower limbs; Translations: [Neuropathy involving both lower extremities] Onset: 02-07-2024 Chronic Other nervous system disorders (1 source) Chronic pain syndrome; Translations: [Chronic pain syndrome] Onset: 04-19-2017 Chronic Other non-traumatic joint disorders (3 sources) Bilateral chronic pain of upper limbs; Translations: [Pain in right shoulder] 08-25-2023 Episodic Other non-traumatic joint disorders (11 sources) Pain in left shoulder; Translations: [Left shoulder pain] Onset: 05-30-2025 04-21-2025 Episodic Other non-traumatic joint disorders (4 sources) Disorder of shoulder; Translations: [Other specified joint disorders, left shoulder] 05-22-2025 Episodic Other non-traumatic joint disorders (1 source) Other specified joint disorders, left shoulder; Translations: [Other specified joint disorders, left shoulder] Onset: 05-22-2025 Episodic Other screening for suspected conditions (not mental disorders or infectious disease) (12 sources) Patient encounter status; Translations: [Encounter for other screening for malignant neoplasm of breast] Onset: 09-23-2024 12-08-2022 Episodic Residual codes; unclassified (4 sources) Obstructive sleep apnea syndrome 01-28-2020 Chronic Residual codes; unclassified (20 sources) Sleep apnea; Translations: [Sleep apnea, unspecified] Onset: 02-11-2011 03-05-2021 Chronic Residual codes; unclassified (3 sources) Edema of lower extremity 09-16-2021 Episodic Residual codes; unclassified (1 source) Insomnia; Translations: [Insomnia, unspecified] Onset: 02-29-2024 Episodic Screening and history of mental health and substance abuse codes (1 source) H/O: attempted suicide; Translations: [History of suicide attempt] 03-05-2024 Episodic Spondylosis; intervertebral disc disorders; other back problems (20 sources) Inflammation of sacroiliac joint; Translations: [Sacroiliitis, not elsewhere classified] Onset: 03-02-2022 03-29-2022 Chronic Sprains and strains (2 sources) Low back strain; Translations: [Strain of muscle, fascia and tendon of lower back, subsequent encounter] 06-13-2024 Episodic Past or Other Problems Problem Classification Problem Date Documented Da te Episodic/Chronic Diabetes mellitus without complication (20 sources) Diabetes mellitus; Translations: [Type 2 diabetes mellitus without complication] Onset: 10-29-2013 Resolved: 04-12-2023 02-14-2017 Chronic Other aftercare (20 sources) Long-term current use of drug therapy; Translations: [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] Onset: 09-24-2018 03-29-2022 Episodic Other circulatory disease (20 sources) Elevated blood-pressure reading without diagnosis of hypertension; Translations: [Elevated blood-pressure reading, without diagnosis of hypertension] Onset: 11-29-2006 Resolved: 08-05-2016 08-05-2016 Episodic Other connective tissue disease (20 sources) Fibromyalgia; Translations: [Fibromyalgia] Onset: 06-16-2009 09-06-2021 Episodic Other connective tissue disease (20 sources) Plantar fasciitis; Translations: [Plantar fascial fibromatosis] Onset: 07-26-2021 07-26-2021 Episodic Other connective tissue disease (20 sources) Pain in left foot; Translations: [Pain in left foot] Onset: 07-26-2021 07-26-2021 Episodic Other connective tissue disease (20 sources) Bilateral subacromial bursitis of shoulders; Translations: [Bursitis of right shoulder] Onset: 11-30-2022 Episodic Other connective tissue disease (2 sources) Fibromyalgia; Translations: [Fibromyalgia] Onset: 09-06-2021 Episodic Other connective tissue disease (2 sources) Bursitis of right shoulder; Translations: [Subacromial bursitis of both shoulders] Onset: 11-30-2022 Episodic Other connective tissue disease (2 sources) Bursitis of left shoulder; Translations: [Subacromial bursitis of both shoulders] Onset: 11-30-2022 Episodic Other nutritional; endocrine; and metabolic disorders (20 sources) Morbid obesity; Translations: [Morbid (severe) obesity due to excess calories] Onset: 01-01-2009 Resolved: 03-07-2022 01-01-2009 Chronic Other nutritional; endocrine; and metabolic disorders (20 sources) H/O: diabetes mellitus; Translations: [Personal history of other endocrine, nutritional and metabolic disease] Onset: 10-13-2023 10-13-2023 Episodic Other nutritional; endocrine; and metabolic disorders (1 source) Personal history of other endocrine, nutritional and metabolic disease; Translations: [History of diabetes mellitus] Onset: 10-13-2023 Episodic Other skin disorders (20 sources) Acne; Translations: [Acne, unspecified] Onset: 11-29-2006 Resolved: 09-06-2021 09-29-2014 Episodic Spondylosis; intervertebral disc disorders; other back problems (20 sources) Acute low back pain; Translations: [Acute right-sided low back pain without sciatica] Onset: 06-03-2024 05-10-2024 Episodic Unclassified (1 source) Patient encounter status 01-14-2025 Results Test Name Value Interpretation Reference Range Facility Orthopedic Visit Reporton Orthopedic Visit Report [facility] [address] [place] [id number] OFFICE VISIT Date of Service: 05/22/25 MR#: [id number] Acct: [id number] Name: SHEILA CROWE Rep #: [id number] : 1980 Provider: Dr. Mahad light MD Age/Sex: 44/F Location: [facility] Status: Signed Intake Vital Signs 04/21/25 11:00 05/21/25 11:11 05/22/25 10:24 Height 5 ft 8 in 5 ft 8 in 5 ft 8 in Weight: 194 lb 4 oz 187 lb BMI 29.5 28.4 Intake Visit Reasons: LEFT SHOULDER Chief Complaint: Left shoulder pain Accompanied by: Self Is patient in pain?: Yes Pain scale (1-10): 5 Allergies Penicillins (PCN) Allergy (Verified 05/22/25 10:26) Anaphylaxis Medications ???Medication ???Instructions ???Recorded ???Confirmed ???Type buprenorphine HCl 150 mcg buccal 150 mcg BC BID PAIN 12/20/1905/22 History film carvedilol 25 mg tablet 50 mg PO BID 12/20/19 05/22/25 His tory cyclobenzaprine 5 mg tablet 5 mg PO TID PRN MUSCLE RELAXANT 05/22/25 History diclofenac sodium 1 % topical gel 100 g TP PRN PRN Pain Or Fever 05/22/25 History furosemide 40 mg tablet 60 mg PO DAILY 12/20/19 05/22/25 H istory gabapentin 600 mg tablet,extended 600 mg PO Q4H 12/20/19 05/22/25 H istory release 24 hr lamotrigine 200 mg tablet 400 mg PO DAILY 12/20/19 05/22/25 History losartan 25 mg tablet 25 mg PO DAILY 12/20/19 05/22/25 H istory metformin 500 mg tablet,extended 500 mg PO DAILY DIABETES 12/20/19 05/22/25 History release 24 hr perphenazine 2 mg tablet 2 mg PO DAILY 12/20/19 05/22/25 Hi story topiramate 200 mg capsule 500 mg PO QHS MOOD STABILIZER 12/0105/22/25 History sprinkle,extended release 24 hr valbenazine 80 mg capsule 80 mg PO DAILY GEODONE SE 12/20/19 05/22/25 History ziprasidone HCl 80 mg capsule 100 mg PO DAILY BIPOLAR 12/20/19 0 05/22/25 History trazodone 100 mg tablet mg PO 05/22/25 05/22/25 History Have you fallen in the past year?: No [facility] History (Updated 05/22/25 @ 10:27 by Mahad Saleh MD) Impingement of left shoulder Left rotator cuff tear Left shoulder pain Social History Smoking Status: Former smoker HPI LEFT SHOULDER Details: This documentation accurately reflects the service provided and the decisions made by me, Dr. Mahad Saleh MD 05/22/25 1024. Part of today???s visit was documented by [ ], acting as scribe. SHEILA CROWE is a 44 year old F here today for FU L shoulder MRI. on disability for mental health, did PT for 15 visits, failed a cortisone injection. worse with even light lifting. Ortho Exam General General: Yes no acute distress Neurologic: Yes alert and Yes oriented x3 Psychologic: Yes reasonable and appropriate Supplemental Info [facility] Imaging Services [address] [place] [id number] Upper Ext Joint Only(Routine) MR#: [id number] Acct: [id number] Name: SHEILA CROWE Rep #: [id number] : 1980 F 44 From: Tomer Arauz MD PCP: Dr. Torres Yao MD Status: REG CLI Study: Upper Ext Joint Only(Routine) Date of Exam: 05/20/25 Exam# [id number] Ordering Dr: Mahad Saleh MD PROCEDURE: UPPER EXT JOINT ONLY(ROUTINE) 05/20/2025 REASON FOR EXAM: PAIN, RULE OUT CUFF TEAR TECHNIQUE: UPPER EXT JOINT ONLY(ROUTINE) Multiplanar and multisequence images were obtained without IV contrast administration. COMPARISON: April 21, 2025 x-ray FINDINGS: Bone Marrow: There is no bony contusion or occult fracture. Rotator cuff: There is no muscular atrophy. There is a full-thickness, full width tear of the supraspinatus with 1.8 cm of retraction. There is moderate distal infraspinatus tendinopathy and subscapularis tendinopathy without full-thickness tear or retraction. The teres minor appears intact. AC joint: The AC joint is aligned without evidence of separation. There is a type 3 acromion with impingement configuration. Labrum: The labrum appears intact. Biceps tendon: The biceps tendon is present in the biceps tendon groove, with intact anchors. Effusion: There is a small joint effusion which extends into the subacromial subdeltoid bursa. MRI/Upper Ext Joint Only(Routine) IMPRESSION: There is a full-thickness, full width tear of the supraspinatus with 1.8 cm of retraction. There is moderate distal infraspinatus tendinopathy and subscapularis tendinopathy without full- thickness tear or retraction. There is a type 3 acromion with impingement configuration. There is a small joint effusion which extends in (more content not included)... Normal [facility] Magnetic resonance imaging r eportOrdered By: Tomer Arauz on 05-21-2025 Study report [facility] Imaging Services [address] [place] [address] Upper Ext Joint Only(Routine) MR#: [id number] Acct: [id number] Name: SHEILA CROWE Rep #: [id number] : 1980 F 44 From: Adriana Arauz MD PCP: Dr. Torres Yao MD Status: JAYESH CHAPMAN Study:Upper Ext Joint Only(Routine) Date of Exam: 05/20/25 Exam# [id number] Ordering Dr: Mahad Saleh MD PROCEDURE: UPPER EXT JOINT ONLY(ROUTINE) 05/20/2025 REASON FOR EXAM: PAIN, RULE OUT CUFF TEAR TECHNIQUE: UPPER EXT JOINT ONLY(ROUTINE) Multiplanar and multisequence images were obtained without IV contrast administration. COMPARISON: April 21, 2025 x-ray FINDINGS: Bone Marrow: There is no bony contusion or occult fracture. Rotator cuff: There is no muscular atrophy. There is a full-thickness, full width tear of the supraspinatus with 1.8 cm of retraction. There is moderate distal infraspinatus tendinopathy and subscapularis tendinopathy without full-thickness tear or retraction. The teres minor appears intact. AC joint: The AC joint is aligned without evidence of separation. There is a type 3 acromion with impingement configuration. Labrum: The labrum appears intact. Biceps tendon: The biceps tendon is present in the biceps tendon groove, with intact anchors. Effusion: There is a small joint effusion which extends into the subacromial subdeltoid bursa. MRI/Upper Ext Joint Only(Routine) IMPRESSION: There is a full-thickness, full width tear of the supraspinatus with 1.8 cm of retraction. There is moderate distal infraspinatus tendinopathy and subscapularis tendinopathy without full-thickness tear or retraction. There is a type 3 acromion with impingement configuration. There is a small joint effusion which extends into the subacromial subdeltoid bursa. Reading Location: [facility] CC: Dr. Mahad Saleh MD; Dr. Torres Yao MD ~ Part Time Receptionist: Signed [facility] Upper Ext Joint Only(Routine )on 05-20-2025 Upper Ext Joint Only(Routine) [facility] Imaging Services [address] [place] [id number] Upper Ext Joint Only(Routine) MR#: [id number] Acct: [id number] Name: SHEILA CROWE Rep #: [id number] : 1980 F 44 From: Tomer Arauz MD PCP: Dr. Torres Yao MD Status: REG CLI Study: Upper Ext Joint Only(Routine) Date of Exam: 0 05/20/25 Exam# [id number] Ordering Dr: Mahad Saleh MD PROCEDURE: UPPER EXT JOINT ONLY(ROUTINE) 05/20/2025 REASON FOR EXAM: PAIN, RULE OUT CUFF TEAR TECHNIQUE: UPPER EXT JOINT ONLY(ROUTINE) Multiplanar and multisequence images were obtained without IV contrast administration. COMPARISON: April 21, 2025 x-ray FINDINGS: Bone Marrow: There is no bony contusion or occult fracture. Rotator cuff: There is no muscular atrophy. There is a full-thickness, full width tear of the supraspinatus with 1.8 cm of retraction. There is moderate distal infraspinatus tendinopathy and subscapularis tendinopathy without full-thickness tear or retraction. The teres minor appears intact. AC joint: The AC joint is aligned without evidence of separation. There is a type 3 acromion with impingement configuration. Labrum: The labrum appears intact. Biceps tendon: The biceps tendon is present in the biceps tendon groove, with intact anchors. Effusion: There is a small joint effusion which extends into the subacromial subdeltoid bursa. MRI/Upper Ext Joint Only(Routine) IMPRESSION: There is a full-thickness, full width tear of the supraspinatus with 1.8 cm of retraction. There is moderate distal infraspinatus tendinopathy and subscapularis tendinopathy without full- thickness tear or retraction. There is a type 3 acromion with impingement configuration. There is a small joint effusion which extends into the subacromial subdeltoid bursa. Reading Location: [facility] CC: Dr. Mahad Saleh MD; Dr. Torres Yao MD Part Time Receptionist: Signed Normal [facility] CNOVon 05-16-2025 CNOV Office Visit (FAMPWS ) SHEILA CROWE ([id number]) 1980 F Date Time Provider Department 05/16/25 1:40 PM [facility] During your visit today, we recorded the following information about you: Pulse Blood pressure Weight 77/minute 120/72 84.8 kg Torres Yao MD 05/16/2025 1:57 PM Addendum [facility] [address] [place] [address] [facility] [address] [place] [id number] [employer] [facility] [address] [address] [facility] [address] [place] [address] [facility] [address] [place] [address] [facility] [address] [address] [employer] [address] [facility] [place] [address] [place] [address] Torres Yao MD 05/16/2025 1:58 PM Signed Sheila Crowe is a 44-year-old female with a history of anxiety, depression, and insomnia, presenting for increased panic attacks and sleep disturbances following a traumatic event. HPI Anxiety and Depression: - Recent increase in panic attacks and sleep disturbances, sleeping only a few hours per night. - Decreased appetite and significant fatigue. - Traumatic event involving the of her dog two weeks ago, which she witnessed. - Dog was a rescue with anxiety, had been with Sheila for nine years. - Experiencing intrusive thoughts and flashbacks of the event. - Psychiatrist is on maternity leave; next appointment scheduled for June. - Previously on trazodone for sleep, last taken over a year ago. - High tolerance to medications; has been on Geodon and trazodone concurrently in the past. - Current medications include Geodon, topiramate, Ingrezza, Cogentin, and Lamictal. - Recent negative experience with a counselor; seeking new counseling options. - Engages in daily exercise, currently walking two miles a day with her mother. - Previously exercised an hour a day; now limited due to fatigue and grief. MEDICATIONS: Current Outpatient Medications Medication Sig meloxicam (MOBIC) 15 mg tablet Take 0.5-1 tablets by mouth once daily as needed for pain. pregabalin (LYRICA) 150 mg capsule Take 1 capsule by mouth three times a day for 120 days. losartan (COZAAR) 25 mg tablet Take 25 mg by mouth once daily. diclofenac sodium-menthol (DITHOL) 1.5-10 % combo pack Apply to affected area. ketoconazole (NIZORAL) 2 % shampoo en-ei-xytb-FA-Ca carb-vit K (WOMEN'S MULTIVITAMIN) 18 mg-400 mcg- 500 mg-50 mcg tab Women's Multivitamin 18 mg-400 mcg- 500 mg-50 mcg tablet spironolactone (ALDACTONE) 25 mg tablet Take 25 mg by mouth three times a day. ziprasidone (GEODON) 20 mg capsule Take 20 mg by mouth three times daily. (Patient taking differently: Take 20 mg by mouth three times a day as needed.) ziprasidone (GEODON) 60 mg capsule Take 120 mg by mouth once daily. topiramate (TOPAMAX) 100 mg tablet Take 100 mg by mouth once daily. topiramate (TOPAMAX) 200 mg tablet Take 400 mg by mouth once daily. valbenazine (INGREZZA) 80 mg capsule Take 80 mg by mouth once daily. benztropine (COGENTIN) 2 mg tablet Take 2 mg by mouth four times daily. lamoTRIgine (LAMICTAL) 200 mg tablet Take 400 mg by mouth once daily. (Patient taking differently: Take 200 mg by mouth once daily.) traZODone (DESYREL) 100 mg tablet Use one half to one tab at bedtime as needed. No current facility-administered medications for this visit. ALLERGIES: ALLERGIES Allergen Reactions Clindamycin Diarrhea Hives, cramping Levaquin [Levofloxa* Swelling Penicillins Rash Sulfa (Sulfonamide * Unknown Zithromax [Azithrom* Itching PAST MEDICAL HISTORY Diagnosis Date Allergic rhinitis due to other allergen Bipolar I disorder, most recent episode (or current) unspecified hosp 04 mutile suicide attempts/Dr. Jenkins Hypercalcemia Migraine without aura Morbid obesity (HCC) stated BMI HT: 68 WT: 375 Myalgia and myositis, unspecified Other specified cardiac dysrhythmias(427.89) PMH - PAST MEDICAL HISTORY OF MONO Unspecified essential hypertension PAST SURGICAL HISTORY Procedure Laterality Date ADENOIDECTOMY PRIMARY Adenoidectomy COLONOSCOPY W/BIOPSY SINGLE/MULTIPLE 12/23/2019 EXTRACTION, ERUPTED TOOTH OR EXPOSED ROOT (ELEVATION AND/OR FORCEPS REMOVAL) 1996 [place] teeth TONSILLECTOMY PRIMARY/SECONDARY Tonsillectomy FAMILY HISTORY Problem Relation Age of Onset Rheumatologic disease Mother other (stiff persons disease) Father other (autoimmune disorder) Father Diabetes Br (more content not included)... Normal [facility] CNOVon 05-15-2025 CNOV Office Visit (JAXONMJK ) SHEILA CROWE ([id number]) 1980 F Date Time Provider Department 05/15/25 11:30 AM FREEMAN SARABIA During your visit today, we recorded the following information about you: Pulse Respiration Blood pressure 74/minute 16/minute 132/83 Freeman Sarabia PA-C 05/15/2025 12:06 PM Signed This note was created using [email or web address] Subjective Sheila Crowe is a 44 year old female. The patient primarily being seen for back, bilateral knee and shoulder, and generalized body pain Patient was last seen on: 05/15/25 At that time, the treatment plan was: see notes Current Meds: pregabalin - pm, meloxicam - yesterday Efficacy: help Side effects: denies TENS unit: yes How often used: daily Benefit: helps Physical Therapy: 01/2025 [facility] Last UDS: not on narcotics Last injection: 09/17/24 - bilateral subacromial bursa OARRS reviewed At the present time, the patient reports benefit with her present analgesic therapy. She denies any adverse effects. Since her previous visit, she denies any hospitalizations or ER visits. She is scheduled for a left shoulder MRI on Monday that was ordered by Dr. Saleh at [facility] 03/14/2025 05/15/2025 INTAKE PAIN ASSESSMENT Are you having pain associated with your visit today? No Yes, Provider notified Pain Scales Verbal (Numeric Rating or Visual Analog Scale) Pain Level 5 Pain Location Generalized Description Aching;Shooting;Pressu re;Tingling;Tightness Duration Amount of Time 6 Duration Units Years Frequency Continuous Intervention/Comfort measure Medication;Relaxation 02/14/2025 05/15/2025 Pain Disability Index Family/Home Responsibilities: This category includes chores or duties performed around the house (e.g. yard work), errands or favors for other family members (e.g. driving the children to school) 3 10 Total Disability Recreation: This category includes hobbies, sports, and other similar leisure time activities 4 8 Social Activity: This category refers to activities which involve participation with friends and acquaintances, other than family members. It includes parties, theater, concerts, dinning out, and other social functions 3 3 Occupation: This category refers to activities that are a part of or directly related to ones' job. This includes non-paying jobs as well, such as that of a housewife or volunteer worker 6 6 Sexual Behavior: This category refers to the frequency and quality of one's sex life 0 No disability 0 No disability Self Care: This category includes activities which involve personal maintenance and independent daily living (e.g. taking a shower, driving, getting dress, etc) 4 5 Life Support Activity: This category refers to basic-life supporting behaviors such as eating, sleeping, and breathing 1 7 PDI Score 21 39 PAST MEDICAL HISTORY Diagnosis Date Allergic rhinitis due to other allergen Bipolar I disorder, most recent episode (or current) unspecified hosp 04 mutile suicide attempts/Dr. Jenkins Hypercalcemia Migraine without aura Morbid obesity (HCC) stated BMI HT: 68 WT: 375 Myalgia and myositis, unspecified Other specified cardiac dysrhythmias(427.89) PMH - PAST MEDICAL HISTORY OF MONO Unspecified essential hypertension PAST SURGICAL HISTORY Procedure Laterality Date ADENOIDECTOMY PRIMARY Adenoidectomy COLONOSCOPY W/BIOPSY SINGLE/MULTIPLE 12/23/2019 EXTRACTION, ERUPTED TOOTH OR EXPOSED ROOT (ELEVATION AND/OR FORCEPS REMOVAL) 1995 [place] teeth TONSILLECTOMY PRIMARY/SECONDARY Tonsillectomy Social History Tobacco Use Smoking status: Former Current packs/day: 0.00 Types: Cigarettes Quit date: 06/16/2008 Years since quittin.9 Smokeless tobacco: Never Vaping Use Vaping status: Never Used Substance Use Topics Alcohol use: No Drug use: No Review of Systems Constitutional: Negative for fever and unexpected weight change. Musculoskeletal: Positive for back pain. +back pain, joint pain, muscle cramps/weakness, stiffness, arthritis, and leg pain with exertion. Objective BP 132/83 (BP Site: Left Arm, BP Position: Sitting) Pulse 74 Resp 16 LMP 02/22/2024 SpO2 100% Physical Exam Vitals and nursing note reviewed. Constitutional: Appearance: Normal appearance. She is well-developed, well-groomed and overweight. HENT: Head: Normocephalic and atraumatic. Right Ear: Hearing normal. Left Ear: Hearing normal. Eyes: Conjunctiva/sclera: Conjunctivae normal. Comments: Wearing glasses Musculoskeletal: Comments: The patient walks with a normal gait. There is tenderness to palpation in the cervical and lumbar region with spasms noted in the trapezius, paraspinal, and latissimus dorsi muscles. She has tenderness noted over the right SI joint Strength is 5/5 throughout. Sensation is intact to light touc (more content not included)... Normal [facility] CNOVon 05-05-2025 [facility] Office Visit (FAMPWS ) SHEILA CROWE ([id number]) 1980 F Date Time Provider Department 05/05/25 12:40 PM [facility] During your visit today, we recorded the following information about you: Temperature Pulse Blood pressure Weight 97.6 degrees 67/minute 110/66 88.9 kg Ellen Rene APRN.GROUP RESERVATIONS COORDINATOR 05/05/2025 1:09 PM Signed This is a 44 year old female who presents today with: Patient presents with: Edema: Bilateral legs HISTORY OF PRESENT ILLNESS: Sheila Crowe is a 44 year old female. Patient presents with: Edema: Bilateral legs Sheila Crowe is a 44-year-old female with a history of fibromyalgia, presenting for evaluation of weight gain and urinary retention. Weight Gain: - Sheila noticed significant weight gain over the past 10-14 days, described as a lot of it water weight. - Reports increased appetite, attributing it to Duodone. - Taking spironolactone; previously took Lasix over a year ago. - Taking Lyrica for fibromyalgia, but reports it is no longer effective and is considering discontinuation. - Taking topiramate. - Denies excessive thirst or high salt intake. - Diet fluctuates between healthy eating and occasional binges; tries to eat vegetables and lean proteins. - Engages in regular exercise, sometimes described as overexercising. Urinary Retention: - Reports difficulty initiating urination and feeling unable to completely empty the bladder. - Does not feel the urge to urinate even after several hours. - Uses a technique of washing hands with cold water to stimulate urination. - Denies urinary urgency or frequency. - Reports alternating between constipation and diarrhea. Fibromyalgia: - Managed with Lyrica, prescribed by a pain management provider at [facility]. - Uses TENS unit and ice for symptom relief. - Also taking meloxicam once a week for pain management. Fatigue: - Reports increased fatigue, possibly related to reducing caffeine intake. - Previously consumed high amounts of caffeine, which she believes contributed to elevated blood pressure. - Has been trying to cut back on caffeine recently. PAST MEDICAL HISTORY: PAST MEDICAL HISTORY Diagnosis Date Allergic rhinitis due to other allergen Bipolar I disorder, most recent episode (or current) unspecified hosp 04 mutile suicide attempts/Dr. Jenkins Hypercalcemia Migraine without aura Morbid obesity (HCC) stated BMI HT: 68 WT: 375 Myalgia and myositis, unspecified Other specified cardiac dysrhythmias(427.89) PMH - PAST MEDICAL HISTORY OF MONO Unspecified essential hypertension PAST SURGICAL HISTORY Procedure Laterality Date ADENOIDECTOMY PRIMARY Adenoidectomy COLONOSCOPY W/BIOPSY SINGLE/MULTIPLE 12/23/2019 EXTRACTION, ERUPTED TOOTH OR EXPOSED ROOT (ELEVATION AND/OR FORCEPS REMOVAL) 1995 [place] teeth TONSILLECTOMY PRIMARY/SECONDARY Tonsillectomy ALLERGIES Clindamycin, Levaquin [Levofloxacin], Penicillins, Sulfa (Sulfonamide Antibiotics), and Zithromax [Azithromycin] MEDICATIONS Current Outpatient Medications Medication Sig losartan (COZAAR) 25 mg tablet Take 25 mg by mouth once daily. meloxicam (MOBIC) 15 mg tablet Take 0.5-1 tablets by mouth once daily as needed for pain. pregabalin (LYRICA) 150 mg capsule Take 1 capsule by mouth three times a day for 120 days. diclofenac sodium-menthol (DITHOL) 1.5-10 % combo pack Apply to affected area. fo-up-egzq-FA-Ca carb-vit K (WOMEN'S MULTIVITAMIN) 18 mg-400 mcg- 500 mg-50 mcg tab Women's Multivitamin 18 mg-400 mcg- 500 mg-50 mcg tablet spironolactone (ALDACTONE) 25 mg tablet Take 25 mg by mouth three times a day. ziprasidone (GEODON) 20 mg capsule Take 20 mg by mouth three times daily. (Patient taking differently: Take 20 mg by mouth three times a day as needed.) ziprasidone (GEODON) 60 mg capsule Take 120 mg by mouth once daily. topiramate (TOPAMAX) 100 mg tablet Take 100 mg by mouth once daily. topiramate (TOPAMAX) 200 mg tablet Take 400 mg by mouth once daily. valbenazine (INGREZZA) 80 mg capsule Take 80 mg by mouth once daily. benztropine (COGENTIN) 2 mg tablet Take 2 mg by mouth four times daily. lamoTRIgine (LAMICTAL) 200 mg tablet Take 400 mg by mouth once daily. (Patient taking differently: Take 200 mg by mouth once daily.) ketoconazole (NIZORAL) 2 % shampoo No current facility-administered medications for this visit. FAMILY HISTORY Problem Relation Age of Onset Rheumatologic disease Mother other (stiff persons disease) Father other (autoimmune disorder) Father Diabetes Brother Type 1, age 40 Diabetes Maternal Grandmother Diabetes Paternal Grandmother Heart Paternal Grandmother Social History Tobacco Use Smoking status: Former Current packs/day: 0.00 Types: Cigarettes Quit date: 06/16/2008 Years since quittin.8 Smokeless tobacco: Never Vaping Use Vapin (more content not included)... Normal [facility] PELVIS BLADDERon 05-05-20 25 PELVIS BLADDER * * *Final Report* * * DATE OF EXAM: May 05 2025 3:10PM LDU 1041 - US PELVIS BLADDER / PROCEDURE REASON: Urinary retention * * * * Physician Interpretation * * * * EXAM TITLE: ULTRASOUND OF THE PELVIS/Bladder DATE:05/05/2025 COMPARISON: None. CLINICAL INDICATION/HISTORY: Urinary retention TECHNIQUE: Scanning was performed by the technologist.ULTRASOUN D OF THE PELVIS/Bladder FINDINGS/ impression: Urinary bladder: Prevoid bladder volume 440 cc. Post void bladder volume 78 cc No evidence of bladder calculi, abnormal bladder wall mass or trabeculation Part Time Receptionist: [facility] Transcribe Date/Time: May 05 2025 3:29P Dictated by : DEE DEE TORRES MD This examination was interpreted and the report reviewed and electronically signed by: DEE DEE TORRES MD on May 05 2025 3:31PM EST [id number] Normal [facility] US Urinary bladderon 025 * * *Final Report* * * DATE OF EXAM: May 05 2025 3:10PM LDU 1041 - US PELVIS BLADDER / PROCEDURE REASON: Urinary retention * * * * Physician Interpretation * * * * EXAM TITLE: ULTRASOUND OF THE PELVIS/Bladder DATE:05/05/2025 COMPARISON: None. CLINICAL INDICATION/HISTORY: Urinary retention TECHNIQUE: Scanning was performed by the technologist.ULTRASOUN D OF THE PELVIS/Bladder FINDINGS/ impression: Urinary bladder: Prevoid bladder volume 440 cc. Post void bladder volume 78 cc No evidence of bladder calculi, abnormal bladder wall mass or trabeculation [facility] Transcribe Date/Time: May 05 2025 3:29P Dictated by : DEE DEE TORRES MD This examination was interpreted and the report reviewed and electronically signed by: DEE DEE TORRES MD on May 05 2025 3:31PM EST [facility] Provider, [facility] - 05/05/2025 * * *Final Report* * * DATE OF EXAM: May 05 2025 3:10PM LDU 1041 - US PELVIS BLADDER / PROCEDURE REASON: Urinary retention * * * * Physician Interpretation * * * * EXAM TITLE: ULTRASOUND OF THE PELVIS/Bladder DATE:05/05/2025 COMPARISON: None. CLINICAL INDICATION/HISTORY: Urinary retention TECHNIQUE: Scanning was performed by the technologist.ULTRASOUN D OF THE PELVIS/Bladder FINDINGS/ impression: Urinary bladder: Prevoid bladder volume 440 cc. Post void bladder volume 78 cc No evidence of bladder calculi, abnormal bladder wall mass or trabeculation Part Time Receptionist: [facility] Transcribe Date/Time: May 05 2025 3:29P Dictated by : DEE DEE TORRES MD This examination was interpreted and the report reviewed and electronically signed by: DEE DEE TORRES MD on May 05 2025 3:31PM EST [facility] Radiology Study observation (narrative) [facility] US Urinary bladderOrdered By : [facility]cf Provider on 05-05-2025 [facility] Urinalysis complete panel (U )on 05-05-2025 Bacteria LM.HPF (Urine sed) [#/Area] Negative Negative /HPF [facility] Bilirubin Ql (U) Negative Negative [facility] Clarity (Unsp spec) Clear Clear [facility] Color (U) Yellow Yellow [facility] Epithelial cells LM.HPF (Urine sed) [#/Area] None Seen /HPF [facility] Glucose Test strip (U) [Mass/Vol] Negative Negative [facility] Hemoglobin Ql (U) Negative Negative [facility] Hyaline casts (Urine sed) [#/Area] 0 /[LPF] 0 /LPF [facility] Ketones Ql (U) Negative Negative [facility] Leukocyte esterase Test strip Ql (U) Negative Negative [facility] Nitrite Ql (U) Negative Negative [facility] pH (U) 6.5 [pH] NINF - 8.5 [facility] Protein (U) [Mass/Vol] Negative Negative [facility] RBC LM.HPF (Urine sed) [#/Area] 0-2 /HPF 0-2 /HPF [facility] Specific gravity (U) [Rel density] 1.011 1.005 - 1.030 [facility] Urobilinogen Ql (U) 0.2 EU/dL 0.2-1.0 EU/dL [facility] WBC LM.HPF (Urine sed) [#/Area] 0-5 /HPF 0-5 /HPF [facility] This test was developed and its performance characteristics determined by [facility]'s [facility] Pathology and [facility] [place] (-[facility]). It has not been cleared or approved by the FDA. -[facility] is regulated under CLIA as qualified to perform high-complexity testing. This test is used for clinical purposes. It should not be regarded as investigational or for research. [facility] Bacteria LM.HPF (Urine sed) [#/Area] Negative Normal Negative [facility] Comment on above: Order Comment: Speci men Type: URINE SPECIMENOrdering Facility: [facility] Address: [address] [place] [address] Performed By: #### 2 4356-8 ####[facility] LABCLIA [id number] [address] [place] [address] [place] Bilirubin Ql (U) Negative Normal Negative [facility] Comment on above: Order Comment: Speci men Type: URINE SPECIMENOrdering Facility: [facility] Address: [address] [place] [address] Performed By: #### 2 4356-8 ####[facility] LABCLIA [id number] [place] [address] [place] Clarity (Unsp spec) Clear Normal Clear [facility] Comment on above: Order Comment: Speci men Type: URINE SPECIMENOrdering Facility: [facility] Address: [address] [place] [address] Performed By: #### 2 4356-8 ####[facility] LABCLIA [id number] [place] [id number] [place] Color (U) Yellow Normal Yellow [facility] Comment on above: Order Comment: Speci men Type: URINE SPECIMENOrdering Facility: [facility] Address: [address] [place] [address] Performed By: #### 2 4356-8 ####[facility] LABCLIA [id number] [address], [facility] [place] Epithelial cells LM.HPF (Urine sed) [#/Area] None Seen Normal [facility] Comment on above: Order Comment: Speci men Type: URINE SPECIMENOrdering Facility: [facility] Address: [address] [place] [address] Performed By: #### 2 4356-8 ####[facility] LABCLIA [id number] [address], [facility] [place] Glucose Test strip (U) [Mass/Vol] Negative Normal Negative [facility] Comment on above: Order Comment: Speci men Type: URINE SPECIMENOrdering Facility: [facility] Address: [address] [place] [address] Performed By: #### 2 4356-8 ####[facility] LABCLIA [id number] [address] [place] [address] [place] Hemoglobin Ql (U) Negative Normal Negative [facility] Comment on above: Order Comment: Speci men Type: URINE SPECIMENOrdering Facility: [facility] Address: [address] [place] [address] Performed By: #### 2 4356-8 ####[facility] LABCLIA [id number] [place] [address] [place] Hyaline casts (Urine sed) [#/Area] 0 /[LPF] Normal 0 /LPF [facility] Comment on above: Order Comment: Speci men Type: URINE SPECIMENOrdering Facility: [facility] Address: [address] [place] [address] Performed By: #### 2 4356-8 ####[facility] LABCLIA [id number] [place] [address] [place] Ketones Ql (U) Negative Normal Negative [facility] Comment on above: Order Comment: Speci men Type: URINE SPECIMENOrdering Facility: [facility] Address: [address] [place] [address] Performed By: #### 2 4356-8 ####[facility] LABCLIA [id number] [place] [id number] [place] Leukocyte esterase Test strip Ql (U) Negative Normal Negative [facility] Comment on above: Order Comment: Speci men Type: URINE SPECIMENOrdering Facility: [facility] Address: [address] [place] [address] Performed By: #### 2 4356-8 ####[facility] LABCLIA [id number] [address], [place] [address] [place] Nitrite Ql (U) Negative Normal Negative [facility] Comment on above: Order Comment: Speci men Type: URINE SPECIMENOrdering Facility: [facility] Address: [address] [place] [address] Performed By: #### 2 4356-8 ####[facility] LABIA [id number] [place] [address] [place] pH (U) 6.5 [pH] Normal <8.5 [facility] Comment on above: Order Comment: Speci men Type: URINE SPECIMENOrdering Facility: [facility] Address: [address] [place] [address] Performed By: #### 2 4356-8 ####[facility] LABIA [id number] [address], [place] [address] [place] Protein (U) [Mass/Vol] Negative Normal Negative [facility] Comment on above: Order Comment: Speci men Type: URINE SPECIMENOrdering Facility: [facility] Address: [address] [place] [address] Performed By: #### 2 4356-8 ####[facility] LABIA [id number] [place] [address] [place] RBC LM.HPF (Urine sed) [#/Area] 0-2 /HPF Normal 0-2 /HPF [facility] Comment on above: Order Comment: Speci men Type: URINE SPECIMENOrdering Facility: [facility] Address: [address] [place] [address] Performed By: #### 2 4356-8 ####[facility] LABIA [id number] [place] [address] [place] Specific gravity (U) [Rel density] 1.011 Normal 1.005-1.030 [facility] Comment on above: Order Comment: Speci men Type: URINE SPECIMENOrdering Facility: [facility] Address: [address] [place] [address] Performed By: #### 2 4356-8 ####[facility] LABIA [id number] [place] [address] [place] Urobilinogen Ql (U) 0.2 EU/dL Normal 0.2-1.0 EU/dL [facility] Comment on above: Order Comment: Speci men Type: URINE SPECIMENOrdering Facility: [facility] Address: [address] [place] [address] Performed By: #### 2 4356-8 ####[facility] LABIA [id number] [place] [address] [place] WBC LM.HPF (Urine sed) [#/Area] 0-5 /HPF Normal 0-5 /HPF [facility] Comment on above: Order Comment: Speci men Type: URINE SPECIMENOrdering Facility: [facility] Address: [address] [place] [address] Performed By: #### 2 4356-8 ####[facility] [id number] [place] [address] [place] Orthopedic Visit Reporton Orthopedic Visit Report [facility] [address] [place] [address] OFFICE VISIT Date of Service: 04/21/25 MR#: [id number] Acct: [id number] Name: SHEILA CROWE Rep #: [id number] : 1980 Provider: Dr. Mahad light MD Age/Sex: 44/F Location: [facility] Status: Signed Intake Vital Signs 12/23/19 11:43 04/21/25 11:00 Height 5 ft 8 in 5 ft 8 in Weight: 194 lb 4 oz BMI 29.5 Intake Visit Reasons: LEFT SHOULDER Chief Complaint: Left shoulder pain Accompanied by: Self Is patient in pain?: Yes Pain scale (1-10): 6 Allergies Penicillins (PCN) Allergy (Verified 04/21/25 11:03) Anaphylaxis Medications ???Medication ???Instructions ???Recorded ???Confirmed ???Type buprenorphine HCl 150 mcg buccal 150 mcg BC BID PAIN 12/20/1904/21 History film carvedilol 25 mg tablet 50 mg PO BID 12/20/19 04/21/25 His tory cyclobenzaprine 5 mg tablet 5 mg PO TID PRN MUSCLE RELAXANT 04/21/25 History diclofenac sodium 1 % topical gel 100 g TP PRN PRN Pain Or Fever 04/21/25 History furosemide 40 mg tablet 60 mg PO DAILY 12/20/19 04/21/25 H istory gabapentin 600 mg tablet,extended 600 mg PO Q4H 12/20/19 04/21/25 H istory release 24 hr lamotrigine 200 mg tablet 400 mg PO DAILY 12/20/19 04/21/25 History losartan 25 mg tablet 25 mg PO DAILY 12/20/19 04/21/25 H istory metformin 500 mg tablet,extended 500 mg PO DAILY DIABETES 12/20/19 04/21/25 History release 24 hr perphenazine 2 mg tablet 2 mg PO DAILY 12/20/19 04/21/25 Hi story topiramate 200 mg capsule 500 mg PO QHS MOOD STABILIZER 12/0104/21/25 History sprinkle,extended release 24 hr valbenazine 80 mg capsule 80 mg PO DAILY GEODONE SE 12/20/19 04/21/25 History ziprasidone HCl 80 mg capsule 100 mg PO DAILY BIPOLAR 12/20/19 0 04/21/25 History Have you fallen in the past year?: No PFSH Medical History Left shoulder pain Social History Smoking Status: Former smoker HPI LEFT SHOULDER Details: This documentation accurately reflects the service provided and the decisions made by me, Dr. Mahad Saleh MD 04/21/25 0901. Part of today???s visit was documented by [ ], acting as scribe. SHEILA CROWE is a 44 year old F here today for L shoulder pain. RHD. 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 lost 300 pounds. lot strain. had a cortisone injection on the left and did not help at all, but did help on the right side. Did do 16 PT visits through the [facility]. Hurts anteriorly. worse to lift or in abduction. Supplemental Info Left shoulder x-rays 4 views obtained today show mild signs of impingement syndrome type II acromion no acute abnormalities joint spaces well-maintained. Coding Level of Care Code Off vis,new,level 4 Diagnoses Left shoulder pain M25.512 Assessment and Plan Assessment and Plan (1) Left shoulder pain: Status: Acute Plan: SHEILA CROWE is a 44 year old F here today for L shoulder pain. Patient has now failed over 6 weeks of physical therapy with 16 visits through the [facility] as well as a cortisone in jection that offered no relief. Patient has been doing quite a bit of exercise and use over the years with the left upper extremity the concern here would be for rotator cuff tear although within the differential is other things like bursitis impingement syndrome tendinosis irritation or tears in the biceps or other problems. At this point I will go ahead and order an MRI of the left shoulder and follow the patient up after that they understood the plan no further questions or concerns. Patient counselled on non-operative and operative means of treating shoulder pain. Conservative options include but not limited to: 1. Rest and Activity Modification: Giving your shoulder time to heal by avoiding movements that cause pain can help. This may involve limiting overhead activities or heavy lifting. 2. Physical Therapy: A physical therapist can guide you through exercises that strengthen the muscles around the shoulder, improve flexibility, and reduce strain on the rotator cuff tendon. 3. Ice and Heat Therapy: Applying ice to the shoulder can help reduce swelling and pain, especially after activity. Heat can be helpful to relax tense muscles and improve blood flow before exercises. 4. Anti-Inflammatory Medications: Ivck-jta-oayspvc medications like ibuprofen or naproxen can help reduce pain and inflammation in the tendon. 5. Corticosteroid Injections: If the pain is more severe, a steroid injection can reduce inflammation in the shoulder and provide relief for a longer (more content not included)... Normal [facility] Shoulder min 2 Viewson 04-21 Shoulder min 2 Views [facility] Imaging Services [address] [place] [address] Shoulder min 2 Views MR#: [id number] Acct: [id number] Name: SHEILA CROWE Rep #: [id number] : 1980 F 44 From: José Manuel Villalta PCP: Dr. Torres Yao MD Status: DEP AMB Study: Shoulder min 2 Views Date of Exam: 04/21/25 Exam# [id number] Ordering Dr: Mahad Saleh MD PROCEDURE: SHOULDER MIN 2 VIEWS 04/21/2025 REASON FOR EXAM: PAIN TECHNIQUE: SHOULDER MIN 2 VIEWS COMPARISON: None. RAD/Shoulder min 2 Views IMPRESSION: At least mild left acromioclavicular joint degenerative changes are seen. Mild degenerative changes about the left humeral head greater tuberosity further suggest the presence of chronic rotator cuff disease. The left glenohumeral joint demonstrates minimal degenerative changes, without apparent joint narrowing. No acute fracture or dislocation is seen. Reading Location: [place] [address] CC: Dr. Mahad Saleh MD; Dr. Torres Yao MD Part Time Receptionist: Signed [facility] 04-15-2025 BASHIRN Telephone (AMEYA) SHEILA CROWE ([id number]) 1980 F Date Time Provider Department 04/15/25 FREEMAN SARABIA During your visit today, we recorded the following information about you: Bertha Flynn LPN 04/15/2025 3:56 PM Signed VM received and stated I was supposed to have a referral made for Ortho and they said they never got it, but they did allow me to schedule, so I am but they need the clinicals. Spoke with pt and confirmed information in chart from 02/18/25, explained we will refax the referral. Bertha Flynn LPN 04/15/2025 4:17 PM Signed Referral fax confirmation showing at [phone]. Allergies As of Date: 04/15/2025 Noted Allergy Reaction CLINDAMYCIN 07/05/2007 6 - Diarrhea Comments: Hives, cramping LEVAQUIN (LEVOFLOXACIN) 01/12/2009 7 - Swelling PENICILLINS 07/27/2005 2 - Rash SULFA (SULFONAMIDE ANTIBIOTICS) 03/29/2022 16 - Unknown ZITHROMAX (AZITHROMYCIN) 01/01/2009 9 - Itching Date Reviewed: 03/14/2025 Reviewed by: Iwona Goff LPN - Fully Assessed Prescriptions as of 04/15/2025 - losartan (COZAAR) 25 mg tablet Take 25 mg by mouth once daily. - meloxicam (MOBIC) 15 mg tablet Take 0.5-1 tablets by mouth once daily as needed for pain. - pregabalin (LYRICA) 150 mg capsule Take 1 capsule by mouth three times a day for 120 days. - diclofenac sodium-menthol (DITHOL) 1.5-10 % combo pack Apply to affected area. - ketoconazole (NIZORAL) 2 % shampoo - nh-xk-rujs-FA-Ca carb-vit K (WOMEN'S MULTIVITAMIN) 18 mg-400 mcg- 500 mg-50 mcg tab Women's Multivitamin 18 mg-400 mcg- 500 mg-50 mcg tablet - spironolactone (ALDACTONE) 25 mg tablet Take 25 mg by mouth three times a day. - ziprasidone (GEODON) 20 mg capsule Take 20 mg by mouth three times daily. - ziprasidone (GEODON) 60 mg capsule Take 120 mg by mouth once daily. - topiramate (TOPAMAX) 100 mg tablet Take 100 mg by mouth once daily. - topiramate (TOPAMAX) 200 mg tablet Take 400 mg by mouth once daily. - valbenazine (INGREZZA) 80 mg capsule Take 80 mg by mouth once daily. - benztropine (COGENTIN) 2 mg tablet Take 2 mg by mouth four times daily. - lamoTRIgine (LAMICTAL) 200 mg tablet Take 400 mg by mouth once daily. Problem List As Of Date 04/15/2025 Noted Resolved Elevated blood pressure reading without diagnos*11/29/2006 08/05/2016 Bipolar I disorder (HCC) [F31.9] 11/29/2006 Other acne [L70.8] 11/29/2006 09/06/2021 Chronic pain syndrome [G89.4] 10/20/2007 Morbid obesity (HCC) [E66.01] 01/01/2009 03/07/2022 Essential Hypertension, Benign [I10] 06/16/2009 Fibromyalgia [M79.7] 06/16/2009 Sleep apnea [G47.30] 02/11/2011 Type 2 diabetes mellitus in remission (HCC) [E1*10/29/2013 04/12/2023 Type II or unspecified type diabetes mellitus w*02/03/2014 08/05/2016 Acne [L70.9] 09/29/2014 Plantar fasciitis [M72.2] 07/26/2021 Left foot pain [M79.672] 07/26/2021 Generalized anxiety disorder [F41.1] 02/15/2018 Osteoarthritis of knee [M17.9] 03/18/2020 04/12/2023 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 [Z79.899]09/24/2018 Sacroiliitis (HCC) [M46.1] 03/02/2022 Subacromial bursitis of both shoulders [M75.51,*11/30/2022 Primary osteoarthritis of both knees [M17.0] 11/30/2022 History of diabetes mellitus [Z86.39] 10/13/2023 Neuropathy involving both lower extremities [G5*02/07/2024 Acute midline low back pain without sciatica [M*06/03/2024 Bilateral shoulder region arthritis [M19.011, M*11/25/2024 Encounter Status:Closed by BERTHA FLYNN on 04/15/25 [facility] Sp 03-14-2025 CNOV Office Visit (FAMPWS ) CROWESHEILA WANG ([id number]) 1980 F Date Time Provider Department 03/14/25 10:00 AM TORRES YAO During your visit today, we recorded the following information about you: Pulse Blood pressure Weight 97/minute 132/78 83 kg Torres Yao MD 03/14/2025 10:40 AM Signed Look into switching to a counselor experienced in managing eating disorders. Consider virtual therapy options (such as the ?[employer]? program mentioned) and discuss these changes with your psychiatrist. Follow up with your orthopedic referral regarding your continued left shoulder pain and discomfort during arm movements. Schedule your mammogram as recommended. Arrange for colon cancer screening using a Cologuard test, as discussed. Plan to have labs (CBC, CMP, cholesterol, thyroid, vitamin D, and A1c) in about six months. Adjust your exercise routine to approximately 30 minutes of activity plus a 30?minute stretch daily, as advised by your psychiatrist. Monitor your neuropathy symptoms in your feet and use your foot roller (the ball with nubs) for pain relief if needed. Torres Yao MD 03/14/2025 11:01 AM Signed Sheila is a 44-year-old female with a history of bipolar disorder, fibromyalgia, and neuropathy, presenting for an annual wellness visit, with additional concerns about eating disorder management and left shoulder pain. HPI Annual Wellness Exam: - Last colonoscopy on 12/19/[address] Trimble; prep described as fair. - Mammogram ordered. - Denies chest pain, dyspnea, abdominal pain, hematochezia, or melena. - Reports improved sleep quality. Eating Disorder: - Struggling with eating disorder; lost 10 lbs in the last 10 days, partially attributed to water weight. - Engages in binge eating, fasting, and excessive exercise. - Previously maintained weight but recently gained some weight, leading to increased efforts to lose weight before today's visit. - Currently seeing a counselor, but feels the counseling is ineffective. - Psychiatrist recommended counseling but noted a lack of local specialists in eating disorders. - Sheila reads books on eating disorders and tries to follow advice on eating regular meals. - Fearful of gaining weight due to a history of losing 300 lbs. - On multiple medications for bipolar disorder that increase hunger, including Geodon. - Recent increase in Geodon dosage led to strange behaviors and side effects, including toe dystonia. - Denies self-harm or suicidal ideation. - Experiences mixed episodes with rapid mood changes. - Psychiatrist recently seen; next appointment uncertain due to psychiatrist's maternity leave and upcoming skilled nursing next fall. - Next psychology appointment in a week; Sheila expresses dissatisfaction with current counselor, stating sessions are unproductive. - Practices mindfulness and meditation independently. - Interested in a program called [employer] [facility] [employer] that offers online counseling. encouraged her to look into that as a consideration. Left Shoulder Pain: - Referred to orthopedics for left shoulder pain. - Previous diagnosis of bursitis; received an injection and completed 15 physical therapy sessions without relief. - Pain with abduction and other movements. Neuropathy: - Neuropathy in feet reportedly worsening, with increased numbness but persistent pain. - Able to walk 10,000 steps a day, which was previously not possible. - Uses a ball with nubs to roll under feet for pain relief; reports decreased sensation. - Neurologist advised that neuropathy will not affect ability to walk. Fibromyalgia: - Fibromyalgia exacerbated by over-exercising. Hypertension: - Last seen by cardiology; antihypertensive medication dosage was reduced. - Believes stress may be contributing to elevated blood pressure readings. MEDICATIONS: Current Outpatient Medications Medication Sig losartan (COZAAR) 25 mg tablet Take 25 mg by mouth once daily. meloxicam (MOBIC) 15 mg tablet Take 0.5-1 tablets by mouth once daily as needed for pain. pregabalin (LYRICA) 150 mg capsule Take 1 capsule by mouth three times a day for 120 days. ketoconazole (NIZORAL) 2 % shampoo ud-xj-lawa-FA-Ca carb-vit K (WOMEN'S MULTIVITAMIN) 18 mg-400 mcg- 500 mg-50 mcg tab Women's Multivitamin 18 mg-400 mcg- 500 mg-50 mcg tablet spironolactone (ALDACTONE) 25 mg tablet Take 25 mg by mouth three times a day. ziprasidone (GEODON) 60 mg capsule Take 120 mg by mouth once daily. topiramate (TOPAMAX) 100 mg tablet Take 100 mg by mouth once daily. topiramate (TOPAMAX) 200 mg tablet Take 400 mg by mouth once daily. valbenazine (INGREZZA) 80 mg capsule Take 80 mg by mouth once daily. benztropine (COGENTIN) 2 mg tablet Take 2 mg by mouth four times daily. lamoTRIgine (LAMICTAL) 200 mg tablet Take 400 mg by mouth once daily. diclofenac sodium-mentho (more content not included)... [facility] SCREENING W TOMOon 03-14 [facility] SCREENING W CHANA * * *Final Report* * * DATE OF EXAM: Mar 14 2025 12:58PM [id number] [id number] - [facility] SCREENING W CHANA / PROCEDURE REASON: Encounter for screening mammogram for breast cancer * * * * Physician Interpretation * * * * RESULT: [facility] [address] [id number] #[id number] - [facility] SCREENING W CHANA HISTORY: 44 year-old patient seen for screening. Patient is asymptomatic in both breasts. Patient states no personal history of breast cancer. The patient has a family history of breast cancer. COMPARISON STUDIES: The present examination has been compared to prior imaging studies dated 09/16/2020 (mammogram), 09/16/2020 (ultrasound), 11/10/2021 (mammogram), 12/08/2022 (mammogram) and 12/11/2023 (mammogram). MAMMOGRAM TECHNIQUE: The study was acquired using full field digital technology and interpreted from soft copy. Digital Breast Tomosynthesis (DBT) images were obtained and used to assist in the interpretation of this examination. Computer-aided detection was utilized by the radiologist in the interpretation of this examination. MAMMOGRAM FINDINGS: There are scattered areas of fibroglandular density. There are multiple stable scattered punctate calcifications in both breasts. No suspicious masses, calcifications or other abnormalities are seen in either breast. IMPRESSION: There is no mammographic evidence of malignancy. Routine screening mammogram is recommended. Annual mammogram will be due in 1 year. BI-RADS Category 2: Benign RISK: Based on the Tyrer-Cuzick (TC) risk assessment model, this patient has a 9.1% lifetime risk of developing breast cancer, meaning they are at average risk for developing breast cancer. However, this is only an estimate based on available history provided on the patient's questionnaire. We encourage all patients to talk with their providers about these results, further recommendations for managing breast health, and appropriate supplemental screening options if the patient has dense breast tissue. Interpreting Radiologist: Criselda Sanches M.D. FACR, FSBI Electronically signed on: 03/17/2025 Part Time Receptionist: ADRIAN Transcribe Date/Time: Mar 14 2025 12:49P Dictated by: CRISELDA SANCHES MD This examination was interpreted and the report reviewed and electronically signed by: CRISELDA SANCHES MD on Mar 17 2025 3:28PM EST [id number] Normal [facility] CNOVon 02-14-2025 CNOV Office Visit (PAMMJK ) SHEILA CROWE ([id number]) 1980 F Date Time Provider Department 02/14/25 1:30 PM FREEMAN SARABIA During your visit today, we recorded the following information about you: Pulse Respiration Blood pressure Weight 84/minute 18/minute 142/88 83.9 kg Carmel Stark, RN 02/14/2025 1:55 PM Signed Lyrica am/ Meloxicam yest. Meds help pain Denies side effects TENS, daily-helpful 09/17/24-b/l subacromial bursa Freeman Sarabia PA-C 02/14/2025 1:55 PM Signed This note was created using [email or web address]. Subjective Sheila Crowe is a 44 year old female. The patient primarily being seen for back, generalized body, and bilateral knee and shoulder pain Patient was last seen on: 11/22/24 At that time, the treatment plan was: see notes Current Meds: pregabalin - am, meloxicam - yesterday Efficacy: help Side effects: denies TENS unit: yes How often used: daily Benefit: helps Physical Therapy: 01/2025 - [facility] Last UDS: 09/28/23 - not currently using narcotics Last injection: 11/19/24 - bilateral subacromial bursa injections OARRS reviewed At the present time, the patient reports benefit with her present analgesic therapy. She denies any adverse effects. Since her previous visit, she denies any hospitalizations or ER visits. She went to PT for her shoulder and feels this may have helped her ROM some. The left shoulder is still bothering her and affecting her ADLs. She likes to sew but states that this increases her pain. 02/04/2025 02/14/2025 INTAKE PAIN ASSESSMENT Are you having pain associated with your visit today? Yes, Provider notified Pain Scales Verbal (Numeric Rating or Visual Analog Scale) Pain Level 4 4 Pain Location Back-Lower Description -- Sharp Frequency Continuous Intervention/Comfort measure Medication;Relaxation; Cold;Heat 11/22/2024 02/14/2025 Pain Disability Index Family/Home Responsibilities: This category includes chores or duties performed around the house (e.g. yard work), errands or favors for other family members (e.g. driving the children to school) 6 3 Recreation: This category includes hobbies, sports, and other similar leisure time activities 5 4 Social Activity: This category refers to activities which involve participation with friends and acquaintances, other than family members. It includes parties, theater, concerts, dinning out, and other social functions 5 3 Occupation: This category refers to activities that are a part of or directly related to ones' job. This includes non-paying jobs as well, such as that of a housewife or volunteer worker 6 6 Sexual Behavior: This category refers to the frequency and quality of one's sex life 6 0 No disability Self Care: This category includes activities which involve personal maintenance and independent daily living (e.g. taking a shower, driving, getting dress, etc) 4 4 Life Support Activity: This category refers to basic-life supporting behaviors such as eating, sleeping, and breathing 3 1 PDI Score 35 21 PAST MEDICAL HISTORY Diagnosis Date Allergic rhinitis due to other allergen Bipolar I disorder, most recent episode (or current) unspecified hosp 04 mutile suicide attempts/Dr. Jenkins Hypercalcemia Migraine without aura Morbid obesity (HCC) stated BMI HT: 68 WT: 375 Myalgia and myositis, unspecified Other specified cardiac dysrhythmias(427.89) PMH - PAST MEDICAL HISTORY OF MONO Unspecified essential hypertension PAST SURGICAL HISTORY Procedure Laterality Date ADENOIDECTOMY PRIMARY Adenoidectomy COLONOSCOPY W/BIOPSY SINGLE/MULTIPLE 12/23/2019 EXTRACTION, ERUPTED TOOTH OR EXPOSED ROOT (ELEVATION AND/OR FORCEPS REMOVAL) 1996 [place] teeth TONSILLECTOMY PRIMARY/SECONDARY Tonsillectomy Social History Tobacco Use Smoking status: Former Current packs/day: 0.00 Types: Cigarettes Quit date: 06/16/2008 Years since quittin.6 Smokeless tobacco: Never Vaping Use Vaping status: Never Used Substance Use Topics Alcohol use: No Drug use: No Review of Systems Constitutional: Negative for fever and unexpected weight change. Musculoskeletal: Positive for back pain. +back pain, joint pain, muscle cramps/weakness, stiffness, arthritis, and leg pain with exertion. Objective BP 142/88 (BP Site: Left Arm, BP Position: Sitting, BP Cuff Size: Regular Adult) Pulse 84 Resp 18 Wt 83.9 kg (185 lb) LMP 02/22/2024 SpO2 99% BMI 28.13 kg/m? Physical Exam Vitals and nursing note reviewed. Constitutional: Appearance: Normal appearance. She is well-developed, well-groomed and overweight. HENT: Head: Normocephalic and atraumatic. Right Ear: Hearing normal. Left Ear: Hearing normal. Eyes: Conjunctiva/sclera: Conjunctivae normal. Comments: Wearing glasses Musculoskeletal: Comments: The patient walks with a normal gai (more content not included)... Normal [facility] CNTHERAPYon 02-04-2025 CNTHERAPY OT/PT/Speech Visit (PTWS) SHEILA CROWE ([id number]) 1980 F Date Time Provider Department 02/04/25 3:45 PM JOVAN PAIGE PTRENO Date Time Provider Department Center 02/04/2025 3:45 PM [id number], SEAN PTRENO Rodriguez Reason for Visit: PT Discharge [752] Primary Visit Diagnosis:Subacromial bursitis of both shoulders [M75.51, M75.52] Other Visit Diagnosis:Bilateral shoulder region arthritis [M19.011, M19.012] Allergies As of Date: 02/04/2025 Noted Allergy Reaction CLINDAMYCIN 07/05/2007 6 - Diarrhea Comments: Hives, cramping LEVAQUIN (LEVOFLOXACIN) 01/12/2009 7 - Swelling PENICILLINS 07/27/2005 2 - Rash SULFA (SULFONAMIDE ANTIBIOTICS) 03/29/2022 16 - Unknown ZITHROMAX (AZITHROMYCIN) 01/01/2009 9 - Itching Date Reviewed: 11/22/2024 Reviewed by: Freeman Sarabia PA-C - Fully Assessed Prescriptions as of 02/06/2025 - pregabalin (LYRICA) 150 mg capsule Take 1 capsule by mouth three times a day for 120 days. - meloxicam (MOBIC) 15 mg tablet Take 0.5-1 tablets by mouth once daily as needed for pain. - buprenorphine (BUTRANS) 10 mcg/hour Apply 1 Patch as directed one time a week for 28 days. As directed. Do not start before April 11, 2024. - diclofenac sodium-menthol (DITHOL) 1.5-10 % combo pack Apply to affected area. - ketoconazole (NIZORAL) 2 % shampoo - tl-zv-ebnb-FA-Ca carb-vit K (WOMEN'S MULTIVITAMIN) 18 mg-400 mcg- 500 mg-50 mcg tab Women's Multivitamin 18 mg-400 mcg- 500 mg-50 mcg tablet - spironolactone (ALDACTONE) 25 mg tablet Take 25 mg by mouth three times a day. - ziprasidone (GEODON) 20 mg capsule Take 20 mg by mouth three times daily. - ziprasidone (GEODON) 60 mg capsule Take 120 mg by mouth once daily. - topiramate (TOPAMAX) 100 mg tablet Take 100 mg by mouth once daily. - topiramate (TOPAMAX) 200 mg tablet Take 400 mg by mouth once daily. - valbenazine (INGREZZA) 80 mg capsule Take 80 mg by mouth once daily. - benztropine (COGENTIN) 2 mg tablet Take 2 mg by mouth four times daily. - lamoTRIgine (LAMICTAL) 200 mg tablet Take 400 mg by mouth once daily. Normal [facility] CNTHERAPYon 01-17-2025 CNTHERAPY OT/PT/Speech Visit (PTWS) SHEILA CROWE ([id number]) 1980 F Date Time Provider Department 01/17/25 1:00 PM ELOYJAMES JOANNA PTWS Date Time Provider Department Center 01/17/2025 1:00 PM [id number] JOANNA PTWS Irwin Rodriguez Reason for Visit: Physical Therapy [503] Primary Visit Diagnosis:Subacromial bursitis of both shoulders [M75.51, M75.52] Allergies As of Date: 01/17/2025 Noted Allergy Reaction CLINDAMYCIN 07/05/2007 6 - Diarrhea Comments: Hives, cramping LEVAQUIN (LEVOFLOXACIN) 01/12/2009 7 - Swelling PENICILLINS 07/27/2005 2 - Rash SULFA (SULFONAMIDE ANTIBIOTICS) 03/29/2022 16 - Unknown ZITHROMAX (AZITHROMYCIN) 01/01/2009 9 - Itching Date Reviewed: 11/22/2024 Reviewed by: Freeman Sarabia PA-C - Fully Assessed Prescriptions as of 01/17/2025 - pregabalin (LYRICA) 150 mg capsule Take 1 capsule by mouth three times a day for 120 days. - meloxicam (MOBIC) 15 mg tablet Take 0.5-1 tablets by mouth once daily as needed for pain. - buprenorphine (BUTRANS) 10 mcg/hour Apply 1 Patch as directed one time a week for 28 days. As directed. Do not start before April 11, 2024. - diclofenac sodium-menthol (DITHOL) 1.5-10 % combo pack Apply to affected area. - ketoconazole (NIZORAL) 2 % shampoo - lu-ut-ausz-FA-Ca carb-vit K (WOMEN'S MULTIVITAMIN) 18 mg-400 mcg- 500 mg-50 mcg tab Women's Multivitamin 18 mg-400 mcg- 500 mg-50 mcg tablet - spironolactone (ALDACTONE) 25 mg tablet Take 25 mg by mouth three times a day. - ziprasidone (GEODON) 20 mg capsule Take 20 mg by mouth three times daily. - ziprasidone (GEODON) 60 mg capsule Take 120 mg by mouth once daily. - topiramate (TOPAMAX) 100 mg tablet Take 100 mg by mouth once daily. - topiramate (TOPAMAX) 200 mg tablet Take 400 mg by mouth once daily. - valbenazine (INGREZZA) 80 mg capsule Take 80 mg by mouth once daily. - benztropine (COGENTIN) 2 mg tablet Take 2 mg by mouth four times daily. - lamoTRIgine (LAMICTAL) 200 mg tablet Take 400 mg by mouth once daily. Normal [facility] CNTHERAPYon 01-09-2025 CNTHERAPY OT/PT/Speech Visit (PTWS) SHEILA CROWE ([id number]) 1980 F Date Time Provider Department 01/09/25 11:00 AM RACHEL WHITESIDE PTRENO Date Time Provider Department [place] 01/09/2025 11:00 AM [id number], MARIAH PTRENO Rodriguez Reason for Visit: Physical Therapy [503] Primary Visit Diagnosis:Subacromial bursitis of both shoulders [M75.51, M75.52] Other Visit Diagnosis:Bilateral shoulder region arthritis [M19.011, M19.012] Allergies As of Date: 01/09/2025 Noted Allergy Reaction CLINDAMYCIN 07/05/2007 6 - Diarrhea Comments: Hives, cramping LEVAQUIN (LEVOFLOXACIN) 01/12/2009 7 - Swelling PENICILLINS 07/27/2005 2 - Rash SULFA (SULFONAMIDE ANTIBIOTICS) 03/29/2022 16 - Unknown ZITHROMAX (AZITHROMYCIN) 01/01/2009 9 - Itching Date Reviewed: 11/22/2024 Reviewed by: Freeman Sarabia PA-C - Fully Assessed Prescriptions as of 01/09/2025 - pregabalin (LYRICA) 150 mg capsule Take 1 capsule by mouth three times a day for 120 days. - meloxicam (MOBIC) 15 mg tablet Take 0.5-1 tablets by mouth once daily as needed for pain. - buprenorphine (BUTRANS) 10 mcg/hour Apply 1 Patch as directed one time a week for 28 days. As directed. Do not start before April 11, 2024. - diclofenac sodium-menthol (DITHOL) 1.5-10 % combo pack Apply to affected area. - ketoconazole (NIZORAL) 2 % shampoo - qp-it-byic-FA-Ca carb-vit K (WOMEN'S MULTIVITAMIN) 18 mg-400 mcg- 500 mg-50 mcg tab Women's Multivitamin 18 mg-400 mcg- 500 mg-50 mcg tablet - spironolactone (ALDACTONE) 25 mg tablet Take 25 mg by mouth three times a day. - ziprasidone (GEODON) 20 mg capsule Take 20 mg by mouth three times daily. - ziprasidone (GEODON) 60 mg capsule Take 120 mg by mouth once daily. - topiramate (TOPAMAX) 100 mg tablet Take 100 mg by mouth once daily. - topiramate (TOPAMAX) 200 mg tablet Take 400 mg by mouth once daily. - valbenazine (INGREZZA) 80 mg capsule Take 80 mg by mouth once daily. - benztropine (COGENTIN) 2 mg tablet Take 2 mg by mouth four times daily. - lamoTRIgine (LAMICTAL) 200 mg tablet Take 400 mg by mouth once daily. Normal [facility] CNTHERAPYon 01-06-2025 CNTHERAPY OT/PT/Speech Visit (PTWS) SHEILA CROWE ([id number]) 1980 F Date Time Provider Department 01/06/25 12:00 PM JOANNA REY PTWS Date Time Provider Department Center 01/06/2025 12:00 PM [id number] REY PTWS [place] Reason for Visit: PT Progress Note [1596] Primary Visit Diagnosis:Subacromial bursitis of both shoulders [M75.51, M75.52] Allergies As of Date: 01/06/2025 Noted Allergy Reaction CLINDAMYCIN 07/05/2007 6 - Diarrhea Comments: Hives, cramping LEVAQUIN (LEVOFLOXACIN) 01/12/2009 7 - Swelling PENICILLINS 07/27/2005 2 - Rash SULFA (SULFONAMIDE ANTIBIOTICS) 03/29/2022 16 - Unknown ZITHROMAX (AZITHROMYCIN) 01/01/2009 9 - Itching Date Reviewed: 11/22/2024 Reviewed by: Freeman Sarabia PA-C - Fully Assessed Prescriptions as of 01/06/2025 - pregabalin (LYRICA) 150 mg capsule Take 1 capsule by mouth three times a day for 120 days. - meloxicam (MOBIC) 15 mg tablet Take 0.5-1 tablets by mouth once daily as needed for pain. - buprenorphine (BUTRANS) 10 mcg/hour Apply 1 Patch as directed one time a week for 28 days. As directed. Do not start before April 11, 2024. - diclofenac sodium-menthol (DITHOL) 1.5-10 % combo pack Apply to affected area. - ketoconazole (NIZORAL) 2 % shampoo - sg-gy-bpiq-FA-Ca carb-vit K (WOMEN'S MULTIVITAMIN) 18 mg-400 mcg- 500 mg-50 mcg tab Women's Multivitamin 18 mg-400 mcg- 500 mg-50 mcg tablet - spironolactone (ALDACTONE) 25 mg tablet Take 25 mg by mouth three times a day. - ziprasidone (GEODON) 20 mg capsule Take 20 mg by mouth three times daily. - ziprasidone (GEODON) 60 mg capsule Take 120 mg by mouth once daily. - topiramate (TOPAMAX) 100 mg tablet Take 100 mg by mouth once daily. - topiramate (TOPAMAX) 200 mg tablet Take 400 mg by mouth once daily. - valbenazine (INGREZZA) 80 mg capsule Take 80 mg by mouth once daily. - benztropine (COGENTIN) 2 mg tablet Take 2 mg by mouth four times daily. - lamoTRIgine (LAMICTAL) 200 mg tablet Take 400 mg by mouth once daily. Normal [facility] CNTHERAPYon 01-03-2025 CNTHERAPY OT/PT/Speech Visit (PTWS) SHEILA CROWE ([id number]) 1980 F Date Time Provider Department 01/03/25 11:00 AM RACHEL WHITESIDE PTRENO Date Time Provider Department Center 01/03/2025 11:00 AM [id number], MARIAH PTRENO Rodriguez Reason for Visit: Physical Therapy [503] Primary Visit Diagnosis:Subacromial bursitis of both shoulders [M75.51, M75.52] Other Visit Diagnosis:Bilateral shoulder region arthritis [M19.011, M19.012] Allergies As of Date: 01/03/2025 Noted Allergy Reaction CLINDAMYCIN 07/05/2007 6 - Diarrhea Comments: Hives, cramping LEVAQUIN (LEVOFLOXACIN) 01/12/2009 7 - Swelling PENICILLINS 07/27/2005 2 - Rash SULFA (SULFONAMIDE ANTIBIOTICS) 03/29/2022 16 - Unknown ZITHROMAX (AZITHROMYCIN) 01/01/2009 9 - Itching Date Reviewed: 11/22/2024 Reviewed by: Freeman Sarabia PA-C - Fully Assessed Prescriptions as of 01/03/2025 - pregabalin (LYRICA) 150 mg capsule Take 1 capsule by mouth three times a day for 120 days. - meloxicam (MOBIC) 15 mg tablet Take 0.5-1 tablets by mouth once daily as needed for pain. - buprenorphine (BUTRANS) 10 mcg/hour Apply 1 Patch as directed one time a week for 28 days. As directed. Do not start before April 11, 2024. - diclofenac sodium-menthol (DITHOL) 1.5-10 % combo pack Apply to affected area. - ketoconazole (NIZORAL) 2 % shampoo - pp-tg-mpal-FA-Ca carb-vit K (WOMEN'S MULTIVITAMIN) 18 mg-400 mcg- 500 mg-50 mcg tab Women's Multivitamin 18 mg-400 mcg- 500 mg-50 mcg tablet - spironolactone (ALDACTONE) 25 mg tablet Take 25 mg by mouth three times a day. - ziprasidone (GEODON) 20 mg capsule Take 20 mg by mouth three times daily. - ziprasidone (GEODON) 60 mg capsule Take 120 mg by mouth once daily. - topiramate (TOPAMAX) 100 mg tablet Take 100 mg by mouth once daily. - topiramate (TOPAMAX) 200 mg tablet Take 400 mg by mouth once daily. - valbenazine (INGREZZA) 80 mg capsule Take 80 mg by mouth once daily. - benztropine (COGENTIN) 2 mg tablet Take 2 mg by mouth four times daily. - lamoTRIgine (LAMICTAL) 200 mg tablet Take 400 mg by mouth once daily. Normal [facility] CNTHERAPYon 12-31-2024 CNTHERAPY OT/PT/Speech Visit (PTWS) SHEILA CROWE ([id number]) 1980 F Date Time Provider Department 12/31/24 11:45 AM RACHEL WHITESIDE PTRENO Date Time Provider Department Center 12/31/2024 11:45 AM [id number], MARIAH PTRENO Rodriguez Reason for Visit: Physical Therapy [503] Primary Visit Diagnosis:Subacromial bursitis of both shoulders [M75.51, M75.52] Other Visit Diagnosis:Bilateral shoulder region arthritis [M19.011, M19.012] Allergies As of Date: 12/31/2024 Noted Allergy Reaction CLINDAMYCIN 07/05/2007 6 - Diarrhea Comments: Hives, cramping LEVAQUIN (LEVOFLOXACIN) 01/12/2009 7 - Swelling PENICILLINS 07/27/2005 2 - Rash SULFA (SULFONAMIDE ANTIBIOTICS) 03/29/2022 16 - Unknown ZITHROMAX (AZITHROMYCIN) 01/01/2009 9 - Itching Date Reviewed: 11/22/2024 Reviewed by: Freeman Sarabia PA-C - Fully Assessed Prescriptions as of 12/31/2024 - pregabalin (LYRICA) 150 mg capsule Take 1 capsule by mouth three times a day for 120 days. - meloxicam (MOBIC) 15 mg tablet Take 0.5-1 tablets by mouth once daily as needed for pain. - buprenorphine (BUTRANS) 10 mcg/hour Apply 1 Patch as directed one time a week for 28 days. As directed. Do not start before April 11, 2024. - diclofenac sodium-menthol (DITHOL) 1.5-10 % combo pack Apply to affected area. - ketoconazole (NIZORAL) 2 % shampoo - ew-yp-elqo-FA-Ca carb-vit K (WOMEN'S MULTIVITAMIN) 18 mg-400 mcg- 500 mg-50 mcg tab Women's Multivitamin 18 mg-400 mcg- 500 mg-50 mcg tablet - spironolactone (ALDACTONE) 25 mg tablet Take 25 mg by mouth three times a day. - ziprasidone (GEODON) 20 mg capsule Take 20 mg by mouth three times daily. - ziprasidone (GEODON) 60 mg capsule Take 120 mg by mouth once daily. - topiramate (TOPAMAX) 100 mg tablet Take 100 mg by mouth once daily. - topiramate (TOPAMAX) 200 mg tablet Take 400 mg by mouth once daily. - valbenazine (INGREZZA) 80 mg capsule Take 80 mg by mouth once daily. - benztropine (COGENTIN) 2 mg tablet Take 2 mg by mouth four times daily. - lamoTRIgine (LAMICTAL) 200 mg tablet Take 400 mg by mouth once daily. Normal [facility] CNTHERAPYon 12-24-2024 CNTHERAPY OT/PT/Speech Visit (PTWS) CROWESHEILA WANG ([id number]) 1980 F Date Time Provider Department 12/24/24 2:45 PM RACHEL WHITESIDE PTWS Date Time Provider Department [place] 12/24/2024 2:45 PM [id number], MARIAH PTWS [place] Reason for Visit: Physical Therapy [503] Primary Visit Diagnosis:Subacromial bursitis of both shoulders [M75.51, M75.52] Other Visit Diagnosis:Bilateral shoulder region arthritis [M19.011, M19.012] Allergies As of Date: 12/24/2024 Noted Allergy Reaction CLINDAMYCIN 07/05/2007 6 - Diarrhea Comments: Hives, cramping LEVAQUIN (LEVOFLOXACIN) 01/12/2009 7 - Swelling PENICILLINS 07/27/2005 2 - Rash SULFA (SULFONAMIDE ANTIBIOTICS) 03/29/2022 16 - Unknown ZITHROMAX (AZITHROMYCIN) 01/01/2009 9 - Itching Date Reviewed: 11/22/2024 Reviewed by: Freeman Sarabia PA-C - Fully Assessed Prescriptions as of 12/24/2024 - meloxicam (MOBIC) 15 mg tablet Take 0.5-1 tablets by mouth once daily as needed for pain. - pregabalin (LYRICA) 150 mg capsule Take 1 capsule by mouth three times a day for 120 days. - buprenorphine (BUTRANS) 10 mcg/hour Apply 1 Patch as directed one time a week for 28 days. As directed. Do not start before April 11, 2024. - diclofenac sodium-menthol (DITHOL) 1.5-10 % combo pack Apply to affected area. - ketoconazole (NIZORAL) 2 % shampoo - aq-uy-irme-FA-Ca carb-vit K (WOMEN'S MULTIVITAMIN) 18 mg-400 mcg- 500 mg-50 mcg tab Women's Multivitamin 18 mg-400 mcg- 500 mg-50 mcg tablet - spironolactone (ALDACTONE) 25 mg tablet Take 25 mg by mouth three times a day. - ziprasidone (GEODON) 20 mg capsule Take 20 mg by mouth three times daily. - ziprasidone (GEODON) 60 mg capsule Take 120 mg by mouth once daily. - topiramate (TOPAMAX) 100 mg tablet Take 100 mg by mouth once daily. - topiramate (TOPAMAX) 200 mg tablet Take 400 mg by mouth once daily. - valbenazine (INGREZZA) 80 mg capsule Take 80 mg by mouth once daily. - benztropine (COGENTIN) 2 mg tablet Take 2 mg by mouth four times daily. - lamoTRIgine (LAMICTAL) 200 mg tablet Take 400 mg by mouth once daily. Normal [facility] CNTHERAPYon 12-11-2024 CNTHERAPY OT/PT/Speech Visit (PTWS) SHEILA CROWE ([id number]) 1980 F Date Time Provider Department 12/11/24 2:45 PM RACHEL WHITESIDE PTRENO Date Time Provider Department [place] 12/11/2024 2:45 PM [id number], MARIAH PTWS [place] Reason for Visit: Physical Therapy [503] Primary Visit Diagnosis:Subacromial bursitis of both shoulders [M75.51, M75.52] Other Visit Diagnosis:Bilateral shoulder region arthritis [M19.011, M19.012] Allergies As of Date: 12/11/2024 Noted Allergy Reaction CLINDAMYCIN 07/05/2007 6 - Diarrhea Comments: Hives, cramping LEVAQUIN (LEVOFLOXACIN) 01/12/2009 7 - Swelling PENICILLINS 07/27/2005 2 - Rash SULFA (SULFONAMIDE ANTIBIOTICS) 03/29/2022 16 - Unknown ZITHROMAX (AZITHROMYCIN) 01/01/2009 9 - Itching Date Reviewed: 11/22/2024 Reviewed by: Freeman Sarabia PA-C - Fully Assessed Prescriptions as of 12/11/2024 - meloxicam (MOBIC) 15 mg tablet Take 0.5-1 tablets by mouth once daily as needed for pain. - pregabalin (LYRICA) 150 mg capsule Take 1 capsule by mouth three times a day for 120 days. - buprenorphine (BUTRANS) 10 mcg/hour Apply 1 Patch as directed one time a week for 28 days. As directed. Do not start before April 11, 2024. - diclofenac sodium-menthol (DITHOL) 1.5-10 % combo pack Apply to affected area. - ketoconazole (NIZORAL) 2 % shampoo - bz-mg-fezd-FA-Ca carb-vit K (WOMEN'S MULTIVITAMIN) 18 mg-400 mcg- 500 mg-50 mcg tab Women's Multivitamin 18 mg-400 mcg- 500 mg-50 mcg tablet - spironolactone (ALDACTONE) 25 mg tablet Take 25 mg by mouth three times a day. - ziprasidone (GEODON) 20 mg capsule Take 20 mg by mouth three times daily. - ziprasidone (GEODON) 60 mg capsule Take 120 mg by mouth once daily. - topiramate (TOPAMAX) 100 mg tablet Take 100 mg by mouth once daily. - topiramate (TOPAMAX) 200 mg tablet Take 400 mg by mouth once daily. - valbenazine (INGREZZA) 80 mg capsule Take 80 mg by mouth once daily. - benztropine (COGENTIN) 2 mg tablet Take 2 mg by mouth four times daily. - lamoTRIgine (LAMICTAL) 200 mg tablet Take 400 mg by mouth once daily. 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: Addendum Therapy (PT/OT/Speech/Resp) ID: [id number] 12/11/2024 3:19 PM Author: RACHEL WHITESIDE Signed by RACHEL WHITESIDE TOOL STORAGE ATTENDANT on 12/11/2024 at 3:20 PM * * * This document replaces document [id number] * * * Document text: Program_ID:[id number] Access Code: [email or web address] URL: [email or web address] Date: 12-11-2024 Prepared By: Rachel Whiteside Program Notes Exercises - Seated Shoulder Flexion AAROM with Dez Behind - 2-3 x daily - 7 x weekly - 1-2 sets - 10 reps - Seated Shoulder External Rotation AAROM with Cane and Hand in Neutral - 2-3 x daily - 7 x weekly - 1-2 sets - 10 reps - Standing Shoulder Extension AAROM with Dowel - 2-3 x daily - 7 x weekly - 1-2 sets - 10 reps - Gentle Levator Scapulae Stretch - 1 x daily - 7 x weekly - 1 sets - 3 reps - Seated Gentle Upper Trapezius Stretch - 1 x daily - 7 x weekly - 1 sets - 3 reps - Supine Chest Stretch with Elbows Bent - 1 x daily - 7 x weekly - 1 sets - 3 reps - Seated Scapular Retraction - 1 x daily - 7 x weekly - 2 sets - 10 reps -- Normal [facility] THERAPY NTon 12-11-2024 THERAPY NT HNO ID: [id number] Author: RACHEL WHITESIDE PTA Service: ? Author Type: Personal Property Appraiser Type: Therapy (PT/OT/Speech/Resp) Filed: 12/11/2024 15:20 Note Text: Program_ID:[id number] Access Code: [email or web address] URL: [email or web address] Date: 12-11-2024 Prepared By: Rachel Whiteside Program Notes Exercises - Seated Shoulder Flexion AAROM with Dez Behind - 2-3 x daily - 7 x weekly - 1-2 sets - 10 reps - Seated Shoulder External Rotation AAROM with Cane and Hand in Neutral - 2-3 x daily - 7 x weekly - 1-2 sets - 10 reps - Standing Shoulder Extension AAROM with Dowel - 2-3 x daily - 7 x weekly - 1-2 sets - 10 reps - Gentle Levator Scapulae Stretch - 1 x daily - 7 x weekly - 1 sets - 3 reps - Seated Gentle Upper Trapezius Stretch - 1 x daily - 7 x weekly - 1 sets - 3 reps - Supine Chest Stretch with Elbows Bent - 1 x daily - 7 x weekly - 1 sets - 3 reps - Seated Scapular Retraction - 1 x daily - 7 x weekly - 2 sets - 10 reps Normal [facility] CNTHERAPYon 12-09-2024 CNTHERAPY OT/PT/Speech Visit (PTWS) SHEILA CROWE ([id number]) 1980 F Date Time Provider Department 12/09/24 11:00 AM RACHEL WHITESIDE PTRENO Date Time Provider Department [place] 12/09/2024 11:00 AM [id number], MARIAH PTRENO [place] Reason for Visit: Physical Therapy [503] Primary Visit Diagnosis:Subacromial bursitis of both shoulders [M75.51, M75.52] Other Visit Diagnosis:Bilateral shoulder region arthritis [M19.011, M19.012] Allergies As of Date: 12/09/2024 Noted Allergy Reaction CLINDAMYCIN 07/05/2007 6 - Diarrhea Comments: Hives, cramping LEVAQUIN (LEVOFLOXACIN) 01/12/2009 7 - Swelling PENICILLINS 07/27/2005 2 - Rash SULFA (SULFONAMIDE ANTIBIOTICS) 03/29/2022 16 - Unknown ZITHROMAX (AZITHROMYCIN) 01/01/2009 9 - Itching Date Reviewed: 11/22/2024 Reviewed by: Freeman Sarabia PA-C - Fully Assessed Prescriptions as of 12/09/2024 - meloxicam (MOBIC) 15 mg tablet Take 0.5-1 tablets by mouth once daily as needed for pain. - pregabalin (LYRICA) 150 mg capsule Take 1 capsule by mouth three times a day for 120 days. - buprenorphine (BUTRANS) 10 mcg/hour Apply 1 Patch as directed one time a week for 28 days. As directed. Do not start before April 11, 2024. - diclofenac sodium-menthol (DITHOL) 1.5-10 % combo pack Apply to affected area. - ketoconazole (NIZORAL) 2 % shampoo - ad-gv-yrxj-FA-Ca carb-vit K (WOMEN'S MULTIVITAMIN) 18 mg-400 mcg- 500 mg-50 mcg tab Women's Multivitamin 18 mg-400 mcg- 500 mg-50 mcg tablet - spironolactone (ALDACTONE) 25 mg tablet Take 25 mg by mouth three times a day. - ziprasidone (GEODON) 20 mg capsule Take 20 mg by mouth three times daily. - ziprasidone (GEODON) 60 mg capsule Take 120 mg by mouth once daily. - topiramate (TOPAMAX) 100 mg tablet Take 100 mg by mouth once daily. - topiramate (TOPAMAX) 200 mg tablet Take 400 mg by mouth once daily. - valbenazine (INGREZZA) 80 mg capsule Take 80 mg by mouth once daily. - benztropine (COGENTIN) 2 mg tablet Take 2 mg by mouth four times daily. - lamoTRIgine (LAMICTAL) 200 mg tablet Take 400 mg by mouth once daily. 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: Therapy (PT/OT/Speech/Resp) ID: [id number] 12/09/2024 11:26 AM Author: RACHEL WHITESIDE Signed by RACHEL WHITESIDE TOOL STORAGE ATTENDANT on 12/09/2024 at 11:27 AM Document text: Program_ID:[id number] Access Code: [email or web address] URL: [email or web address] Date: 12-09-2024 Prepared By: Rachel Whiteside Program Notes Exercises - Seated Shoulder Flexion AAROM with Dez Behind - 2-3 x daily - 7 x weekly - 1-2 sets - 10 reps - Seated Shoulder External Rotation AAROM with Cane and Hand in Neutral - 2-3 x daily - 7 x weekly - 1-2 sets - 10 reps - Standing Shoulder Extension AAROM with Dowel - 2-3 x daily - 7 x weekly - 1-2 sets - 10 reps -- Normal [facility] THERAPY NTon 12-09-2024 THERAPY NT HNO ID: [id number] Author: RACHEL WHITESIDE PTA Service: ? Author Type: Personal Property Appraiser Type: Therapy (PT/OT/Speech/Resp) Filed: 12/09/2024 11:27 Note Text: Program_ID:[id number] Access Code: [email or web address] URL: [email or web address] Date: 12-09-2024 Prepared By: Rachel Whiteside Program Notes Exercises - Seated Shoulder Flexion AAROM with Dez Behind - 2-3 x daily - 7 x weekly - 1-2 sets - 10 reps - Seated Shoulder External Rotation AAROM with Cane and Hand in Neutral - 2-3 x daily - 7 x weekly - 1-2 sets - 10 reps - Standing Shoulder Extension AAROM with Dowel - 2-3 x daily - 7 x weekly - 1-2 sets - 10 reps Normal [facility] [id number] 11-25-2024 [id number] HNO ID: [id number] Author: JOANNA REY PT Service: ? Author Type: Physical Therapist Type: [id number] Filed: 11/25/2024 19:37 Note Text: [facility] Physical Therapy Plan of Care Certification Patient Name: Sheila Crowe : 1980 [facility] #: [id number] Date: 11/25/2024 To: Freeman Sarabia PA-C From Therapist: Joanna Rey PT RE: Patient Certification/ Recertification Your review, approval and electronic signature are required in order to comply with Payor: MEDICARE / Plan: MEDICARE A AND B / Product Type: Medicare / regulations. The identified Physical Therapy PLAN OF CARE for the patient is as follows: M75.51, M75.52 Subacromial bursitis of both shoulders (primary encounter diagnosis) M19.011, M19.012 Bilateral shoulder region arthritis PLAN OF CARE: Assessment: Sheila Crowe presents with diagnosis of subacromial bursitis both shoulders and bilateral shld region arthritis that interferes with sleeping, reaching overhead, use hand with arm at shoulder level, Comments, carrying, grooming sewing, cutting material for quilting, blowdrying hair. The patient presents with impairments in overall function, range of motion, strength, symptom management, and tissue tenderness. Patient did not complete the PROMIS? (Patient Reported Outcome Measures Information System). Prognosis for therapy is Good due to: current objective clinical presentation, good overall health status, good support system/ coping skills, Prognosis may be limited due to chronic nature of impairments . The patient will benefit from skilled therapy services to meet the goals established for this plan of care as noted below. Goals for Episode of Care: established 11/25/24 [place] in home exercise program. Patient will decrease pain rating by 2 points to meet minimal clinical important difference for numeric pain rating scale. Patient will increase active ROM of L shld to 160-170deg flex, abd, 50-60deg ER to allow pt to to improve postural alignment and to improve performance of ADLs. Patient will demonstrate increase in L UE strength to 4 to 4+/5 during manual muscle testing in order to improve function for home management tasks, leisure / recreation skills, and prior functional tasks. Perform sleeping;reaching overhead;use hand with arm at shoulder level;Comments;carryin g;grooming; without pain. Improve postural awareness. Patient Goals: Improved function/mobility of L UE and alleviate pain Time Frame for Goals and Treatment : 01/23/25 Planned Interventions, Frequency, and Duration: Current Frequency: 2x/week Duration: 8 weeks Total Number of Visits Planned: 16 Planned Treatment Interventions: Therapeutic exercise (84330), Neuromuscular re-education (85505), Manual therapy (02701), Self-alf management (74636), Patient/Family/Caregiv er Education PLAN FOR NEXT VISIT: Assess performance of and response to HEP. Continue to progress with strengthening and ROM. may add manual techniques as needed for pain relief. Patient demonstrates good understanding of plan of care and treatment. The above goals and plan of care were discussed and agreed upon by patient/family. For further details regarding this patient refer to the Physical Therapy electronically documented visit dated 11/25/2024. Provider Attestation I have reviewed the treatment plan for Sheila Crowe, [facility]# [id number] for the period of 11/25/24 -- 01/23/25, established on 11/25/2024. Signature certifies the need for therapy services. Normal [facility] CNTHERAPYon 11-25-2024 CNTHERAPY OT/PT/Speech Visit (PTWS) SHEILA CROWE ([id number]) 1980 F Date Time Provider Department 11/25/24 5:15 PM JOANNA REY PTWS Date Time Provider Department [place] 11/25/2024 5:15 PM [id number] REY PTWS [facility] Reason for Visit: PT Eval [747] Primary Visit Diagnosis:Subacromial bursitis of both shoulders [M75.51, M75.52] Other Visit Diagnosis:Bilateral shoulder region arthritis [M19.011, M19.012] Allergies As of Date: 11/25/2024 Noted Allergy Reaction CLINDAMYCIN 07/05/2007 6 - Diarrhea Comments: Hives, cramping LEVAQUIN (LEVOFLOXACIN) 01/12/2009 7 - Swelling PENICILLINS 07/27/2005 2 - Rash SULFA (SULFONAMIDE ANTIBIOTICS) 03/29/2022 16 - Unknown ZITHROMAX (AZITHROMYCIN) 01/01/2009 9 - Itching Date Reviewed: 11/22/2024 Reviewed by: Freeman Sarabia PA-C - Fully Assessed Prescriptions as of 11/25/2024 - meloxicam (MOBIC) 15 mg tablet Take 0.5-1 tablets by mouth once daily as needed for pain. - pregabalin (LYRICA) 150 mg capsule Take 1 capsule by mouth three times a day for 120 days. - buprenorphine (BUTRANS) 10 mcg/hour Apply 1 Patch as directed one time a week for 28 days. As directed. Do not start before April 11, 2024. - diclofenac sodium-menthol (DITHOL) 1.5-10 % combo pack Apply to affected area. - ketoconazole (NIZORAL) 2 % shampoo - gj-pm-sitl-FA-Ca carb-vit K (WOMEN'S MULTIVITAMIN) 18 mg-400 mcg- 500 mg-50 mcg tab Women's Multivitamin 18 mg-400 mcg- 500 mg-50 mcg tablet - spironolactone (ALDACTONE) 25 mg tablet Take 25 mg by mouth three times a day. - ziprasidone (GEODON) 20 mg capsule Take 20 mg by mouth three times daily. - ziprasidone (GEODON) 60 mg capsule Take 120 mg by mouth once daily. - topiramate (TOPAMAX) 100 mg tablet Take 100 mg by mouth once daily. - topiramate (TOPAMAX) 200 mg tablet Take 400 mg by mouth once daily. - valbenazine (INGREZZA) 80 mg capsule Take 80 mg by mouth once daily. - benztropine (COGENTIN) 2 mg tablet Take 2 mg by mouth four times daily. - lamoTRIgine (LAMICTAL) 200 mg tablet Take 400 mg by mouth once daily. 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: Therapy (PT/OT/Speech/Resp) ID: [id number] 11/25/2024 6:05 PM Author: JOANNA REY Signed by JOANNA REY PT on 11/25/2024 at 6:05 PM Document text: Program_ID:[id number] Access Code: [email or web address] URL: [email or web address] Date: 11-25-2024 Prepared By: Salvador Hart Program Notes Exercises - Hooklying Single Knee to Chest Stretch - 1-2 x daily - 5-7 x weekly - 2-3 sets - reps - Supine Double Knee to Chest - 1-2 x daily - 5-7 x weekly - 2-3 sets - reps - Supine Posterior Pelvic Tilt - 2 x daily - 5-7 x weekly - 2 sets - 10 reps - Child's Pose Stretch - 1-2 x daily - 5-7 x weekly - 2-3 sets - reps - Cat Cow - 1-2 x daily - 5-7 x weekly - 2 sets - 10 reps - Anti-Rotation Press With Sidesteps and Anchored Resistance - 2 x daily - 5-7 x weekly - 2 sets - 8-10 reps - Seated Transversus Abdominis Bracing - 2 x daily - 5-7 x weekly - 2 sets - 10 reps - Shoulder Extension with Resistance - 1 x daily - 7 x weekly - 2 sets - 10 reps - Shoulder Internal Rotation with Resistance - 1 x daily - 7 x weekly - 2 sets - 10 reps - Shoulder External Rotation with Anchored Resistance - 1 x daily - 7 x weekly - 2 sets - 10 reps -- Letter Text Normal [facility] THERAPY NTon 11-25-2024 THERAPY NT HNO ID: [id number] Author: JOANNA REY PT Service: ? Author Type: Physical Therapist Type: Therapy (PT/OT/Speech/Resp) Filed: 11/25/2024 18:05 Note Text: Program_ID:[id number] Access Code: [email or web address] URL: [email or web address] Date: 11-25-2024 Prepared By: Salvador Hart Program Notes Exercises - Hooklying Single Knee to Chest Stretch - 1-2 x daily - 5-7 x weekly - 2-3 sets - reps - Supine Double Knee to Chest - 1-2 x daily - 5-7 x weekly - 2-3 sets - reps - Supine Posterior Pelvic Tilt - 2 x daily - 5-7 x weekly - 2 sets - 10 reps - Child's Pose Stretch - 1-2 x daily - 5-7 x weekly - 2-3 sets - reps - Cat Cow - 1-2 x daily - 5-7 x weekly - 2 sets - 10 reps - Anti-Rotation Press With Sidesteps and Anchored Resistance - 2 x daily - 5-7 x weekly - 2 sets - 8-10 reps - Seated Transversus Abdominis Bracing - 2 x daily - 5-7 x weekly - 2 sets - 10 reps - Shoulder Extension with Resistance - 1 x daily - 7 x weekly - 2 sets - 10 reps - Shoulder Internal Rotation with Resistance - 1 x daily - 7 x weekly - 2 sets - 10 reps - Shoulder External Rotation with Anchored Resistance - 1 x daily - 7 x weekly - 2 sets - 10 reps Normal [facility] CNOVon 11-22-2024 CNOV Office Visit ([place] ) SHEILA CROWE ([id number]) 1980 F Date Time Provider Department 11/22/24 11:30 AM FREEMAN SARABIA During your visit today, we recorded the following information about you: Pulse Respiration Blood pressure Weight 71/minute 18/minute 133/90 82.6 kg Carmel Stark, RN 11/22/2024 11:49 AM Signed Lyrica am/ Meloxicam am Meds help pain Denies side effects TENS, daily-helpful 09/17/24-b/l subacromial bursa Freeman Sarabia PA-C 11/22/2024 11:49 AM Signed This note was created using Newformater. Subjective Sheila Crowe is a 44 year old female. The patient primarily being seen for back, bilateral knee and shoulder, and generalized body pain Patient was last seen on: 08/28/24 At that time, the treatment plan was: see notes Current Meds: pregabalin - am, meloxicam - am Efficacy: help Side effects: denies TENS unit: yes How often used: daily Benefit: helps Physical Therapy: July PT Last UDS: 09/28/23 - not using narcotics Last injection: 09/17/24 - Bilateral subacromial bursa injections OARRS reviewed At the present time, the patient reports benefit with her present analgesic therapy. She denies any adverse effects. Since her previous visit, she denies any hospitalizations or ER visits. She states that the bilateral subacromial bursa injections relieved 100% of her pain on the right, but did not help much on the left. 09/17/2024 11/22/2024 INTAKE PAIN ASSESSMENT Are you having pain associated with your visit today? Yes, Provider notified Pain Scales Verbal (Numeric Rating or Visual Analog Scale) Pain Level 0 5 Pain Location Back-Lower Description Tightness;Aching;Burni ng;Sharp Frequency Continuous Intervention/Comfort measure Medication;Relaxation; Heat;Other: See comment Comments relief with injections Pain Assessment Reassessment Back Pain Pertinent negatives include no fever. Pain (Shoulder Pain) Pertinent negatives include no fever. PAST MEDICAL HISTORY Diagnosis Date Allergic rhinitis due to other allergen Bipolar I disorder, most recent episode (or current) unspecified hosp 04 mutile suicide attempts/Dr. Jenkins Hypercalcemia Migraine without aura Morbid obesity (HCC) stated BMI HT: 68 WT: 375 Myalgia and myositis, unspecified Other specified cardiac dysrhythmias(427.89) PMH - PAST MEDICAL HISTORY OF MONO Unspecified essential hypertension PAST SURGICAL HISTORY Procedure Laterality Date ADENOIDECTOMY PRIMARY Adenoidectomy COLONOSCOPY W/BIOPSY SINGLE/MULTIPLE 12/23/2019 EXTRACTION, ERUPTED TOOTH OR EXPOSED ROOT (ELEVATION AND/OR FORCEPS REMOVAL) 1995 [place] teeth TONSILLECTOMY PRIMARY/SECONDARY Tonsillectomy Social History Tobacco Use Smoking status: Former Current packs/day: 0.00 Types: Cigarettes Quit date: 06/16/2008 Years since quittin.4 Smokeless tobacco: Never Vaping Use Vaping status: Never Used Substance Use Topics Alcohol use: No Drug use: No Review of Systems Constitutional: Negative for fever and unexpected weight change. Musculoskeletal: Positive for back pain. +back pain, joint pain, muscle cramps/weakness, stiffness, arthritis, and leg pain with exertion. Objective BP 133/90 (BP Site: Left Arm, BP Position: Sitting, BP Cuff Size: Regular Adult) Pulse 71 Resp 18 Wt 82.6 kg (182 lb) LMP 02/22/2024 SpO2 100% BMI 27.67 kg/m? Physical Exam Vitals and nursing note reviewed. Constitutional: Appearance: Normal appearance. She is well-developed, well-groomed and overweight. HENT: Head: Normocephalic and atraumatic. Right Ear: Hearing normal. Left Ear: Hearing normal. Eyes: Conjunctiva/sclera: Conjunctivae normal. Comments: Wearing glasses Musculoskeletal: Comments: The patient walks with a normal gait. There is tenderness to palpation in the cervical and lumbar region with spasms noted in the trapezius, paraspinal, and latissimus dorsi muscles. She has tenderness noted over the right SI joint Strength is 5/5 throughout. Sensation is intact to light touch throughout. SLR is negative. She has tenderness to palpation in the knees bilaterally. There is tenderness noted in the left shoulder over the acromioclavicular joint with decreased ROM in all planes secondary to pain Neurological: Mental Status: She is alert and oriented to person, place, and time. Psychiatric: Attention and Perception: Attention and perception normal. Mood and Affect: Mood and affect normal. Speech: Speech normal. Behavior: Behavior normal. Behavior is cooperative. Thought Content: Thought content normal. Judgment: Judgment normal. Assessment and Plan ASSESSMENT/PLAN: 1. Fibromyalgia - ICD9: 729.1, ICD10: M79.7 (primary diagnosis) 2. Primary osteoarthritis of both knees - ICD9: 715.16, ICD10: M17.0 - MELOXICAM 15 MG TABLET 3. Subacromia (more content not included)... [facility] ([place]) SHEILA CROWE ([id number]) 1980 F Date Time Provider Department [facility] During your visit today, we recorded the following information about you: Og Pastor LPN 09/24/2024 8:14 AM Signed ----- Message from Ellen Rene sent at 09/24/2024 7:47 AM EST ----- Labs look good. Hemoglobin A1c indicates a possible low blood sugar, no diabetes. Thyroid is normal. Blood counts and kidney function are normal. While your LDL, bad cholesterol, is high your good cholesterol and triglycerides are so good; we can except that LDL. No changes are needed. Everything looks good. Og Pastor LPN 09/24/2024 8:15 AM Signed Left a message for pt to call the office and ask to speak to a nurse. MART Gu Laurie Lynn, LPN 09/24/2024 8:41 AM Signed Spoke with pt and information listed below given. Pt verbalizes understanding. Og Pastor LPN Allergies As of Date: 09/24/2024 Noted Allergy Reaction CLINDAMYCIN 07/05/2007 6 - Diarrhea Comments: Hives, cramping LEVAQUIN (LEVOFLOXACIN) 01/12/2009 7 - Swelling PENICILLINS 07/27/2005 2 - Rash SULFA (SULFONAMIDE ANTIBIOTICS) 03/29/2022 16 - Unknown ZITHROMAX (AZITHROMYCIN) 01/01/2009 9 - Itching Date Reviewed: 09/17/2024 Reviewed by: Jenna Diaz, RN - Fully Assessed Reason for Visit: Results [95] Prescriptions as of 09/24/2024 - pregabalin (LYRICA) 150 mg capsule Take 1 capsule by mouth three times a day for 120 days. - meloxicam (MOBIC) 15 mg tablet Take 0.5-1 tablets by mouth once daily as needed for pain. - buprenorphine (BUTRANS) 10 mcg/hour Apply 1 Patch as directed one time a week for 28 days. As directed. Do not start before April 11, 2024. - diclofenac sodium-menthol (DITHOL) 1.5-10 % combo pack Apply to affected area. - ketoconazole (NIZORAL) 2 % shampoo - hy-nb-shqx-FA-Ca carb-vit K (WOMEN'S MULTIVITAMIN) 18 mg-400 mcg- 500 mg-50 mcg tab Women's Multivitamin 18 mg-400 mcg- 500 mg-50 mcg tablet - spironolactone (ALDACTONE) 25 mg tablet Take 25 mg by mouth three times a day. - ziprasidone (GEODON) 20 mg capsule Take 20 mg by mouth three times daily. - ziprasidone (GEODON) 60 mg capsule Take 120 mg by mouth once daily. - topiramate (TOPAMAX) 100 mg tablet Take 100 mg by mouth once daily. - topiramate (TOPAMAX) 200 mg tablet Take 400 mg by mouth once daily. - valbenazine (INGREZZA) 80 mg capsule Take 80 mg by mouth once daily. - benztropine (COGENTIN) 2 mg tablet Take 2 mg by mouth four times daily. - lamoTRIgine (LAMICTAL) 200 mg tablet Take 400 mg by mouth once daily. Problem List As Of Date 09/24/2024 Noted Resolved Elevated blood pressure reading without diagnos*11/29/2006 08/05/2016 Bipolar I disorder (HCC) [F31.9] 11/29/2006 Other acne [L70.8] 11/29/2006 09/06/2021 Chronic pain syndrome [G89.4] 10/20/2007 Morbid obesity (HCC) [E66.01] 01/01/2009 03/07/2022 Essential Hypertension, Benign [I10] 06/16/2009 Fibromyalgia [M79.7] 06/16/2009 Sleep apnea [G47.30] 02/11/2011 Type 2 diabetes mellitus in remission (HCC) [E1*10/29/2013 04/12/2023 Type II or unspecified type diabetes mellitus w*02/03/2014 08/05/2016 Acne [L70.9] 09/29/2014 Plantar fasciitis [M72.2] 07/26/2021 Left foot pain [M79.672] 07/26/2021 Generalized anxiety disorder [F41.1] 02/15/2018 Osteoarthritis of knee [M17.9] 03/18/2020 04/12/2023 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 [Z79.899]09/24/2018 Sacroiliitis (HCC) [M46.1] 03/02/2022 Subacromial bursitis of both shoulders [M75.51,*11/30/2022 Primary osteoarthritis of both knees [M17.0] 11/30/2022 History of diabetes mellitus [Z86.39] 10/13/2023 Neuropathy involving both lower extremities [G5*02/07/2024 Acute midline low back pain without sciatica [M*06/03/2024 Encounter Status:Closed by OG PASTOR on 09/24/24 Normal [facility] ALBUMIN/CREATININE RATIO, UR INEon 09-23-2024 Albumin DL <= 20 mg/L (U) [Mass/Vol] mg/dL Normal [facility] Comment on above: Order Comment: Speci men Type: URINE SPECIMENOrdering Facility: [facility] Address: [address] [place] [address] Performed By: #### U ACR ####[facility] LABCLIA [id number] [place] [address] [place] Albumin/Creatinine (U) [Mass ratio] Normal [facility] Comment on above: Order Comment: Speci men Type: URINE SPECIMENOrdering Facility: [facility] Address: [address] [place] [address] Result Comment: Not calculated Adult Male and Female Nephrotic Criteria: <30 mg/g is considered normal to mildly increased 30-300 mg/g is considered moderately increased >300 mg/g is considered severely increased KDIGO. (2013). KDIGO 2012 Clinical Practice Guideline for the Evaluation and Management of Chronic Kidney Disease. Official Journal of the International Society of Nephrology, 3(1), 1-150. Performed By: #### U ACR ####[facility] LABCLIA [id number] [place] [address] [place] Creatinine (U) [Mass/Vol] 18.0 mg/dL Low 20.0-300.0 [facility] Comment on above: Order Comment: Speci men Type: URINE SPECIMENOrdering Facility: [facility] Address: [address] [place] [address] Performed By: #### U ACR ####[facility] LABCLIA [id number] [place] [id number] [place] CBC W Auto Differential pane l (Bld)on 09-23-2024 Basophils (Bld) [#/Vol] 0.03 10*3/uL Normal <0.11 [facility] Comment on above: Order Comment: Speci men Type: BLOOD SPECIMENOrdering Facility: [facility] Address: [address] [place] [address] Performed By: #### 5 7021-8 ####[facility] LABCLIA [id number] [place] [address] [place] Basophils/100 WBC (Bld) 0.5 % Normal [facility] Comment on above: Order Comment: Speci men Type: BLOOD SPECIMENOrdering Facility: [facility] Address: [address] [place] [address] Performed By: #### 5 7021-8 ####[facility] LABCLIA [id number] [place] [address] [place] Differential cell count method Nom (Bld) Auto Normal [facility] Comment on above: Order Comment: Speci men Type: BLOOD SPECIMENOrdering Facility: [facility] Address: [address] [place] [address] Performed By: #### 5 7021-8 ####[facility] LABCLIA [id number] [place] [address] [place] Eosinophils (Bld) [#/Vol] 0.04 10*3/uL Normal <0.46 [facility] Comment on above: Order Comment: Speci men Type: BLOOD SPECIMENOrdering Facility: [facility] Address: [address] [place] [address] Performed By: #### 5 7021-8 ####[facility] LABCLIA [id number] [place] [address] [place] Eosinophils/100 WBC (Bld) 0.6 % Normal [facility] Comment on above: Order Comment: Speci men Type: BLOOD SPECIMENOrdering Facility: [facility] Address: [address] [place] [address] Performed By: #### 5 7021-8 ####[facility] LABCLIA [id number] [id number] [address] [place] Erythrocyte distribution width (RBC) [Ratio] 12.5 % Normal 11.5-15.0 [facility] Comment on above: Order Comment: Speci men Type: BLOOD SPECIMENOrdering Facility: [facility] Address: [address] [place] [address] Performed By: #### 5 7021-8 ####[facility] LABCLIA [id number] [place] [address] [place] Hematocrit (Bld) [Volume fraction] 42.4 % Normal 36.0-46.0 [facility] Comment on above: Order Comment: Speci men Type: BLOOD SPECIMENOrdering Facility: [facility] Address: [address] [place] [address] Performed By: #### 5 7021-8 ####[facility] LABCLIA [id number] [place] [address] [place] Hemoglobin (Bld) [Mass/Vol] 13.9 g/dL Normal 11.5-15.5 [facility] Comment on above: Order Comment: Speci men Type: BLOOD SPECIMENOrdering Facility: [facility] Address: [address] [place] [address] Performed By: #### 5 7021-8 ####[facility] LABIA [id number] [place] [address] [place] Immature granulocytes (Bld) [#/Vol] 10*3/uL Normal <0.10 [facility] Comment on above: Order Comment: Speci men Type: BLOOD SPECIMENOrdering Facility: [facility] Address: [address] [place] [address] Performed By: #### 5 7021-8 ####[facility] LABCLIA [id number] [place] [address] [place] Immature granulocytes/100 WBC (Bld) 0.3 % Normal [facility] Comment on above: Order Comment: Speci men Type: BLOOD SPECIMENOrdering Facility: [facility] Address: [address] [place] [address] Performed By: #### 5 7021-8 ####[facility] LABCLIA [id number] [place] [address] [place] Lymphocytes (Bld) [#/Vol] 2.31 10*3/uL Normal 1.00-4.00 [facility] Comment on above: Order Comment: Speci men Type: BLOOD SPECIMENOrdering Facility: [facility] Address: [address] [place] [address] Performed By: #### 5 7021-8 ####[facility] LABCLIA [id number] [place] [address] [place] Lymphocytes/100 WBC (Bld) 35.4 % Normal [facility] Comment on above: Order Comment: Speci men Type: BLOOD SPECIMENOrdering Facility: [facility] Address: [address] [place] [address] Performed By: #### 5 7021-8 ####[facility] LABCLIA [id number] [place] [address] [place] MCH (RBC) [Entitic mass] 30.6 pg Normal 26.0-34.0 [facility] Comment on above: Order Comment: Speci men Type: BLOOD SPECIMENOrdering Facility: [facility] Address: [address] [place] [address] Performed By: #### 5 7021-8 ####[facility] LABCLIA [id number] [place] [address] [place] MCHC (RBC) [Mass/Vol] 32.8 g/dL Normal 30.5-36.0 [facility] Comment on above: Order Comment: Speci men Type: BLOOD SPECIMENOrdering Facility: [facility] Address: [address] [place] [address] Performed By: #### 5 7021-8 ####[facility] LABCLIA [id number] [place] [address] [place] MCV (RBC) [Entitic vol] 93.4 fL Normal 80.0-100.0 [facility] Comment on above: Order Comment: Speci men Type: BLOOD SPECIMENOrdering Facility: [facility] Address: [address] [place] [address] Performed By: #### 5 7021-8 ####[facility] LABCLIA [id number] [place] [address] [place] Monocytes (Bld) [#/Vol] 0.28 10*3/uL Normal <0.87 [facility] Comment on above: Order Comment: Speci men Type: BLOOD SPECIMENOrdering Facility: [facility] Address: [address] [place] [address] Performed By: #### 5 7021-8 ####[facility] LABCLIA [id number] [place] [address] [place] Monocytes/100 WBC (Bld) 4.3 % Normal [facility] Comment on above: Order Comment: Speci men Type: BLOOD SPECIMENOrdering Facility: [facility] Address: [address] [place] [address] Performed By: #### 5 7021-8 ####[facility] LABCLIA [id number] [place] [address] [place] Neutrophils (Bld) [#/Vol] 3.85 10*3/uL Normal 1.45-7.50 [facility] Comment on above: Order Comment: Speci men Type: BLOOD SPECIMENOrdering Facility: [facility] Address: [address] [place] [address] Performed By: #### 5 7021-8 ####[facility] LABCLIA [id number] [place] [address] [place] Neutrophils/100 WBC (Bld) 58.9 % Normal [facility] Comment on above: Order Comment: Speci men Type: BLOOD SPECIMENOrdering Facility: [facility] Address: [address] [place] [address] Performed By: #### 5 7021-8 ####[facility] LABCLIA [id number] [place] [address] [place] Nucleated RBC (Bld) [#/Vol] 10*3/uL Normal <0.01 [facility] Comment on above: Order Comment: Speci men Type: BLOOD SPECIMENOrdering Facility: [facility] Address: [address] [place] [address] Performed By: #### 5 7021-8 ####[facility] LABCLIA [id number] [place] [address] [place] Nucleated RBC/100 WBC (Bld) [Ratio] 0.0 /100 WBC Normal [facility] Comment on above: Order Comment: Speci men Type: BLOOD SPECIMENOrdering Facility: [facility] Address: [address] [place] [address] Performed By: #### 5 7021-8 ####[facility] LABIA [id number] [place] [address] [place] Platelet mean volume (Bld) [Entitic vol] 12.2 fL Normal 9.0-12.7 [facility] Comment on above: Order Comment: Speci men Type: BLOOD SPECIMENOrdering Facility: [facility] Address: [address] [place] [address] Performed By: #### 5 7021-8 ####[facility] LABCLIA [id number] [place] [address] [place] Platelets (Bld) [#/Vol] 163 10*3/uL Normal 150-400 [facility] Comment on above: Order Comment: Speci men Type: BLOOD SPECIMENOrdering Facility: [facility] Address: [address] [place] [address] Performed By: #### 5 7021-8 ####[facility] LABCLIA [id number] [place] [address] [place] RBC (Bld) [#/Vol] 4.54 10*6/uL Normal 3.90-5.20 [facility] Comment on above: Order Comment: Speci men Type: BLOOD SPECIMENOrdering Facility: [facility] Address: [address] [place] [address] Performed By: #### 5 7021-8 ####[facility] LABIA [id number] [place] [address] [place] WBC (Bld) [#/Vol] 6.53 10*3/uL Normal 3.70-11.00 [facility] Comment on above: Order Comment: Speci men Type: BLOOD SPECIMENOrdering Facility: [facility] Address: [address] [place] [address] Performed By: #### 5 7021-8 ####[facility] LABIA [id number] [place] [address] [place] Comprehensive metabolic 2000 panelon 09-23-2024 Albumin [Mass/Vol] 4.6 g/dL Normal 3.9-4.9 [facility] Comment on above: Order Comment: Speci men Type: BLOOD SPECIMENOrdering Facility: [facility] Address: [address] [place] [address] Performed By: #### 1 9123-9, 3016-3, 51608-1, LIPNF ####[facility] LABIA [id number] [place] [address] [place] ALP [Catalytic activity/Vol] 59 U/L Normal 34-123 [facility] Comment on above: Order Comment: Speci men Type: BLOOD SPECIMENOrdering Facility: [facility] Address: [address] [place] [address] Performed By: #### 1 9123-9, 3016-3, 93409-8, LIPNF ####[facility] LABCLIA [id number] [place] [address] [place] ALT [Catalytic activity/Vol] 18 U/L Normal 7-38 [facility] Comment on above: Order Comment: Speci men Type: BLOOD SPECIMENOrdering Facility: [facility] Address: [address] [place] [address] Performed By: #### 1 9123-9, 3016-3, 17292-6, LIPNF ####[facility] LABCLIA [id number] [place] [address] [place] Anion gap [Moles/Vol] 11 mmol/L Normal 8-15 [facility] Comment on above: Order Comment: Speci men Type: BLOOD SPECIMENOrdering Facility: [facility] Address: [address] [place] [address] Performed By: #### 1 9123-9, 3016-3, 72036-9, LIPNF ####[facility] LABCLIA [id number] [place] [address] [place] AST [Catalytic activity/Vol] 17 U/L Normal 13-35 [facility] Comment on above: Order Comment: Speci men Type: BLOOD SPECIMENOrdering Facility: [facility] Address: [address] [place] [address] Performed By: #### 1 9123-9, 3016-3, 23550-5, LIPNF ####[facility] LABCLIA [id number] [place] [address] [place] Bilirubin [Mass/Vol] 0.2 mg/dL Normal 0.2-1.3 [facility] Comment on above: Order Comment: Speci men Type: BLOOD SPECIMENOrdering Facility: [facility] Address: [address] [place] [address] Performed By: #### 1 9123-9, 3016-3, 92432-0, LIPNF ####[facility] LABCLIA [id number] [place] [address] [place] Calcium [Mass/Vol] 9.3 mg/dL Normal 8.5-10.2 [facility] Comment on above: Order Comment: Speci men Type: BLOOD SPECIMENOrdering Facility: [facility] Address: [address] [place] [address] Performed By: #### 1 9123-9, 3016-3, 90253-5, LIPNF ####[facility] LABCLIA [id number] [place] [address] [place] Chloride [Moles/Vol] 106 mmol/L Normal 98-107 [facility] Comment on above: Order Comment: Speci men Type: BLOOD SPECIMENOrdering Facility: [facility] Address: [address] [place] [address] Performed By: #### 1 9123-9, 3016-3, 63584-3, LIPNF ####[facility] LABCLIA [id number] [place] [address] [place] CO2 [Moles/Vol] 21 mmol/L Low 22-30 [facility] Comment on above: Order Comment: Speci men Type: BLOOD SPECIMENOrdering Facility: [facility] Address: [address] [place] [address] Performed By: #### 1 9123-9, 3016-3, 04709-7, LIPNF ####[facility] LABCLIA [id number] [place] [address] [place] Creatinine [Mass/Vol] 0.78 mg/dL Normal 0.58-0.96 [facility] Comment on above: Order Comment: Speci men Type: BLOOD SPECIMENOrdering Facility: [facility] Address: [address] [place] [address] Performed By: #### 1 9123-9, 3016-3, 83019-5, LIPNF ####[facility] LABCLIA [id number] [id number] [address] [place] Creatinine and Glomerular filtration rate.predicted panel (S/P/Bld) 96 mL/min/1.73m??? Normal >=60 [facility] Comment on above: Order Comment: Pérez zhu Type: BLOOD SPECIMENOrdering Facility: [facility] Address: [address] [place] [address] Result Comment: Lydia mated Glomerular Filtration Rate (eGFR) is calculated using the 2020 CKD-EPI creatinine equation. This equation utilizes serum creatinine, sex, and age as parameters. The creatinine assay has traceable calibration to isotope dilution-mass spectrometry. Refer to KDIGO guidelines for clinical interpretation. In patients with unstable renal function, e.g. those with acute kidney injury, the eGFR may not accurately reflect actual GFR. Performed By: #### 1 9123-9, 3016-3, 27109-1, LIPNF ####[facility] LABCLIA [id number] [place] [address] [place] Glucose [Mass/Vol] 92 mg/dL Normal 74-99 [facility] Comment on above: Order Comment: Pérez zhu Type: BLOOD SPECIMENOrdering Facility: [facility] Address: [address] [place] [address] Result Comment: The [place] Diabetes Association (ADA) provides guidance for cutoff values for fasting glucose and random glucose. The ADA defines fasting as no caloric intake for at least 8 hours. Fasting plasma glucose results between 100 to 125 mg/dL indicate increased risk for diabetes (prediabetes). Fasting plasma glucose results greater than or equal to 126 mg/dL meet the criteria for diagnosis of diabetes. In the absence of unequivocal hyperglycemia, results should be confirmed by repeat testing. In a patient with classic symptoms of hyperglycemia or hyperglycemic crisis, random plasma glucose results greater than or equal to 200 mg/dL meet the criteria for diagnosis of diabetes. Reference: Standards of Medical Care in Diabetes 2016, [place] Diabetes Association. Diabetes Care. 2016.39(Suppl 1). Performed By: #### 1 9123-9, 3016-3, 51497-6, LIPNF ####[facility] LABCLIA [id number] [place] [id number] [place] Potassium [Moles/Vol] 3.9 mmol/L Normal 3.7-5.1 [facility] Comment on above: Order Comment: Speci men Type: BLOOD SPECIMENOrdering Facility: [facility] Address: [address] [place] [address] Performed By: #### 1 9123-9, 3016-3, 31547-7, LIPNF ####[facility] LABCLIA [id number] [place] [address] [place] Protein [Mass/Vol] 7.5 g/dL Normal 6.3-8.0 [facility] Comment on above: Order Comment: Speci men Type: BLOOD SPECIMENOrdering Facility: [facility] Address: [address] [place] [address] Performed By: #### 1 9123-9, 3016-3, 70467-8, LIPNF ####[facility] LABCLIA [id number] [place] [address] [place] Sodium [Moles/Vol] 138 mmol/L Normal 136-144 [facility] Comment on above: Order Comment: Speci men Type: BLOOD SPECIMENOrdering Facility: [facility] Address: [address] [place] [address] Performed By: #### 1 9123-9, 3016-3, 08281-9, LIPNF ####[facility] LABCLIA [id number] [place] [address] [place] Urea nitrogen [Mass/Vol] 18 mg/dL Normal 7-21 [facility] Comment on above: Order Comment: Speci men Type: BLOOD SPECIMENOrdering Facility: [facility] Address: [address] [place] [address] Performed By: #### 1 9123-9, 3016-3, 48940-1, LIPNF ####[facility] LABCLIA [id number] [place] [address] [place] HbA1c (Bld)on 09-23-2024 Average glucose Estimated from glycated hemoglobin (Bld) [Mass/Vol] 80 mg/dL Normal [facility] Comment on above: Order Comment: Pérez zhu Type: BLOOD SPECIMENOrdering Facility: [facility] Address: [address] [place] [address] Result Comment: eAG: (Estimated average glucose) is a calculated value from HgbA1c and is client support representative of the average blood glucose level in the last 2-3 month period. Performed By: #### 5 5454-3 ####[facility] LABCLIA [id number] [place] [address] [place] HbA1c (Bld) [Mass fraction] 4.4 % Normal 4.3-5.6 [facility] Comment on above: Order Comment: Pérez zhu Type: BLOOD SPECIMENOrdering Facility: [facility] Address: [address] [place] [address] Result Comment: [place] Diabetes Association guidelines indicate that patients with HgbA1c in the range 5.7-6.4% are at increased risk for development of diabetes, and intervention by lifestyle modification may be beneficial. HgbA1c greater or equal to 6.5% is considered diagnostic of diabetes. Performed By: #### 5 5454-3 ####[facility] LABCLIA [id number] [address] [place] LIPID PANEL, NONFASTINGon Cholesterol [Mass/Vol] 190 mg/dL Normal <200 [facility] Comment on above: Order Comment: Pérez zhu Type: BLOOD SPECIMENOrdering Facility: [facility] Address: [address] [place] [address] Result Comment: <200 mg/dL, Desirable 200-239 mg/dL, Borderline high >239 mg/dL, High Performed By: #### 1 9123-9, 3016-3, 42305-8, LIPNF ####[facility] LABCLIA [id number] [address] [place] HDL CHOLESTEROL, NF 53 mg/dL Normal >39 [facility] Comment on above: Order Comment: Speci men Type: BLOOD SPECIMENOrdering Facility: [facility] Address: [address] [place] [address] Result Comment: 40-5 9 mg/dL, Acceptable >59 mg/dL, High: Negative risk factor for coronary heart disease <40 mg/dL, Low: Positive risk factor for coronary heart disease Performed By: #### 1 9123-9, 3016-3, 35671-1, LIPNF ####[facility] LABCLIA [id number] [place] [address] [place] LDL CHOLESTEROL, NF 121 mg/dL High <100 [facility] Comment on above: Order Comment: Leonorbryce zhu Type: BLOOD SPECIMENOrdering Facility: [facility] Address: [address] [place] [address] Result Comment: <100 mg/dL, Optimal 100-129 mg/dL, Near optimal/above optimal 130-159 mg/dL, Borderline high 160-189 mg/dL, High >189 mg/dL, Very high Secondary prevention optimal LDL Cholesterol levels are recommended to be < 70 mg/dL Performed By: #### 1 9123-9, 3016-3, 32220-3, LIPNF ####[facility] LABCLIA [id number] [place] [address] [place] LDL/HDL RATIO, NF 2.28 mg/dL Normal <2.54 [facility] Comment on above: Order Comment: Pérez zhu Type: BLOOD SPECIMENOrdering Facility: [facility] Address: [address] [place] [address] Result Comment: Refe rence: 1. National Cholesterol Education Program ATP III Guideline At-A-Glance Quick Desk Reference: National Heart, Lung, and Blood [place]. National Institutes of Health. 2001: NIH Publication No. 01-3305. 2. An International Atherosclerosis Society position paper: global recommendations for the management of dyslipidemia: executive summary, Atherosclerosis. 2014: 232(2):410-413. Performed By: #### 1 9123-9, 3016-3, 65438-8, LIPNF ####[facility] LABCLIA [id number] [place] [address] [place] NON HDL CHOL, NF 137 mg/dL High <[address] [facility] Comment on above: Order Comment: Speci men Type: BLOOD SPECIMENOrdering Facility: [facility] Address: [address] [place] [address] Result Comment: <130 mg/dL, Optimal 130-159 mg/dL, Near optimal/above optimal 160-189 mg/dL, Borderline high 190-219 mg/dL, High >219 mg/dL, Very high Secondary prevention optimal non HDL Cholesterol levels are recommended to be <100 mg/dL Performed By: #### 1 9123-9, 3016-3, 89683-1, LIPNF ####[facility] LABCLIA [id number] [place] [address] [place] T CHOL/HDL RATIO NF 3.58 mg/dL Normal <5.10 [facility] Comment on above: Order Comment: Speci men Type: BLOOD SPECIMENOrdering Facility: [facility] Address: [address] [place] [address] Performed By: #### 1 9123-9, 3016-3, 17036-5, LIPNF ####[facility] LABCLIA [id number] [place] [address] [place] TRIGLYCERIDES, NF 81 mg/dL Normal <150 [facility] Comment on above: Order Comment: Speci men Type: BLOOD SPECIMENOrdering Facility: [facility] Address: [address] [place] [address] Result Comment: <150 mg/dL, Normal 150-199 mg/dL, Borderline high 200-499 mg/dL, High >499 mg/dL, Very high Performed By: #### 1 9123-9, 3016-3, 72322-2, LIPNF ####[facility] LABCLIA [id number] [place] [address] [place] VLDL CHOLESTEROL, NF 16 mg/dL Normal <30 [facility] Comment on above: Order Comment: Speci men Type: BLOOD SPECIMENOrdering Facility: [facility] Address: [address] [place] [address] Performed By: #### 1 9123-9, 3016-3, 22146-7, LIPNF ####[facility] LABCLIA [id number] [place] [address] [place] Magnesium SerPl-mCncon 09-23 Magnesium [Mass/Vol] 2.2 mg/dL Normal 1.7-2.3 [facility] Comment on above: Order Comment: Speci men Type: BLOOD SPECIMENOrdering Facility: [facility] Address: [address] [place] [address] Performed By: #### 1 9123-9, 3016-3, 73393-1, LIPNF ####[facility] LABCLIA [id number] [place] [address] [place] TSH SerPl-aCncon 09-23-2024 TSH Qn 1.470 m[IU]/L Normal 0.270-4.200 [facility] Comment on above: Order Comment: Speci men Type: BLOOD SPECIMENOrdering Facility: [facility] Address: [address] [place] [address] Result Comment: If t he patient is , TSH reference range varies by gestational period: First Trimester (weeks 9-12): 0.180-2.990 mIU/L Second Trimester: 0.110-3.980 mIU/L Third Trimester: 0.480-4.710 mIU/L Gordon Al et al. A Practical Approach for the Verifications and Determination of Site- and Trimester-Specific Reference Intervals for Thyroid Function tests in . Thyroid, 2019:29:3:412-420. Gilson Garcia, et al. 2017 Guidelines of the [place] Thyroid Association for the Diagnosis and Management of Thyroid Disease during and the . Thyroid, 2017:27:3:315-389. Performed By: #### 1 9123-9, 3016-3, 62302-3, LIPNF ####[facility] LABCLIA [id number] [facility] [id number] [place] [address] [place] Vit [facility]12 [facility] 024 Cobalamin (Vitamin B12) [Mass/Vol] 976 pg/mL Normal 232-1245 [facility] Comment on above: Order Comment: Speci men Type: BLOOD SPECIMENOrdering Facility: [facility] Address: [address] [place] [address] Performed By: #### 2 132-9 ####[facility] LABCLIA [id number] [facility] [place] [address] [place] OPERATIVE NOon 09-17-2024 OPERATIVE NO HNO ID: [id number] Author: ISAAC CANNON MD Service: Pain Management Author Type: Anesthesiologist Type: Operative Report Filed: 09/17/2024 13:25 Note Text: Summary: B Subacromial bursa inj PATIENT: Sheila Crowe SURGEON: Primary: Isaac Cannon MD : 1980 DATE OF SURGERY: September 17, 2024 PRE-OP Diagnosis: Subacromial bursitis of both shoulders [M75.51, M75.52] POST-OP Diagnosis: Same Procedure: Procedure(s): ARTHROCENTESIS,ASPIRAT ION AND/OR INJECTION,MAJOR JOINT OR BURSA W/O US GUIDANCE (Subacromial bursas) Anesthesia Type: Local The following procedure was performed in the office today: Shoulder (subacromial bursa injection with ultrasound) (77063-39, U/S) Laterality: Bilateral Approach: anterior Injectate: [1 mL methylprednisolone (80 mg/mL) in 5 mL of 1% lidocaine-total split between 2 bursas Notes: Procedure: Patient was placed in sitting position. The patient was prepped in a sterile fashion in the sitting position after informed consent was signed and all the patient's questions were answered including the risks, benefits, alternative treatment options and prognosis. A time out was performed as per protocol. The subacromial bursa was identified with ultrasound. Using a 1.5 inch 25 gauge needle, the needle was advanced to the area between the deltoid and supraspinatus muscle over the humeral head. After aspiration was negative for heme, the injectate noted above was then injected without difficulty and the needle was removed. The procedure was repeated on the opposite side. The patient tolerated the procedure well and was discharged after an appropriate period of observation. If there are any complications, the patient was instructed to call us. The patient is to follow-up with the ordering physician as planned. Isaac Cannon [facility] Office Visit (FAMPWS ) SHEILA CROWE ([id number]) 1980 F Date Time Provider Department 09/12/24 10:00 AM ELLEN RENE [facility] During your visit today, we recorded the following information about you: Pulse Respiration Blood pressure Weight 76/minute 16/minute 134/78 82.7 kg Ellen Rene APRN.CNP 09/12/2024 10:36 AM Signed This is a 43 year old female who presents today with: Patient presents with: Back Pain: 3 month f/u HISTORY OF PRESENT ILLNESS: Sheila Crowe is a 43 year old female. Patient presents with: Back Pain: 3 month f/u Back is feeling better. Only hurts if she sits too long or in a car too long. Doing stretches and exercises. No pain down legs except fibromyalgia pain. On topiramate 500 mg daily and Lyrica 150 mg 3 x day. Sleeping really well. Walking loosens up her back- no longer daily walking a mile but doing harder exercises. Sitting for hours still aches some Lying is bad, but now from shoulders 0/10.in axial pain and out into hips- outer hips and anterior unless sitting too long thighs achy from exercises Tried using TENs unit, didn't help PAST MEDICAL HISTORY: PAST MEDICAL HISTORY Diagnosis Date Allergic rhinitis due to other allergen Bipolar I disorder, most recent episode (or current) unspecified hosp 04 mutile suicide attempts/Dr. Jenkins Hypercalcemia Migraine without aura Morbid obesity (HCC) stated BMI HT: 68 WT: 375 Myalgia and myositis, unspecified Other specified cardiac dysrhythmias(427.89) PMH - PAST MEDICAL HISTORY OF MONO Unspecified essential hypertension PAST SURGICAL HISTORY Procedure Laterality Date ADENOIDECTOMY PRIMARY Adenoidectomy COLONOSCOPY W/BIOPSY SINGLE/MULTIPLE 12/23/2019 EXTRACTION, ERUPTED TOOTH OR EXPOSED ROOT (ELEVATION AND/OR FORCEPS REMOVAL) 1995 [place] teeth TONSILLECTOMY PRIMARY/SECONDARY Tonsillectomy ALLERGIES Clindamycin, Levaquin [Levofloxacin], Penicillins, Sulfa (Sulfonamide Antibiotics), and Zithromax [Azithromycin] MEDICATIONS Current Outpatient Medications Medication Sig pregabalin (LYRICA) 150 mg capsule Take 1 capsule by mouth three times a day for 120 days. meloxicam (MOBIC) 15 mg tablet Take 0.5-1 tablets by mouth once daily as needed for pain. buprenorphine (BUTRANS) 10 mcg/hour Apply 1 Patch as directed one time a week for 28 days. As directed. Do not start before April 11, 2024. diclofenac sodium-menthol (DITHOL) 1.5-10 % combo pack Apply to affected area. ketoconazole (NIZORAL) 2 % shampoo [id number] carb-vit K (WOMEN'S MULTIVITAMIN) 18 mg-400 mcg- 500 mg-50 mcg tab Women's Multivitamin 18 mg-400 mcg- 500 mg-50 mcg tablet spironolactone (ALDACTONE) 25 mg tablet Take 25 mg by mouth three times a day. ziprasidone (GEODON) 20 mg capsule Take 20 mg by mouth three times daily. ziprasidone (GEODON) 60 mg capsule Take 120 mg by mouth once daily. topiramate (TOPAMAX) 100 mg tablet Take 100 mg by mouth once daily. topiramate (TOPAMAX) 200 mg tablet Take 400 mg by mouth once daily. valbenazine (INGREZZA) 80 mg capsule Take 80 mg by mouth once daily. benztropine (COGENTIN) 2 mg tablet Take 2 mg by mouth four times daily. lamoTRIgine (LAMICTAL) 200 mg tablet Take 400 mg by mouth once daily. No current facility-administered medications for this visit. FAMILY HISTORY Problem Relation Age of Onset Rheumatologic disease Mother other (stiff persons disease) Father other (autoimmune disorder) Father Diabetes Brother Type 1, age 40 Diabetes Maternal Grandmother Diabetes Paternal Grandmother Heart Paternal Grandmother Social History Tobacco Use Smoking status: Former Current packs/day: 0.00 Types: Cigarettes Quit date: 06/16/2008 Years since quittin.2 Smokeless tobacco: Never Vaping Use Vaping status: Never Used Substance Use Topics Alcohol use: No Drug use: No REVIEW OF SYSTEMS GENERAL: Some weight loss, no malaise, no fevers/chills HEENT: Negative for frequent or significant headaches, No changes in hearing or vision. NECK: Negative for lumps, goiter, pain and significant neck swelling RESPIRATORY: Negative for cough, hemoptysis, wheezing, dyspnea or shortness of breath CARDIOVASCULAR: Negative for chest pain, leg swelling, orthopnea, or palpitations GI: No nausea, vomiting, + diarrhea/ usually constipation. No hematochezia/melena. No heartburn or reflux symptoms. : No history of dysuria, frequency or incontinence MUSCULOSKELETAL: Multiple joint pains and muscle aches SKIN: Negative for lesions, rash, and itching NEURO: No history of headaches, syncope, paralysis, seizures or tremors MOOD: Negative for depression, anxiety, or suicidal ideation. EXAM: BP 134/78 Pulse 76 Resp 16 Wt 82.7 kg (182 lb 5.1 oz) LMP 02/22/2024 SpO2 (!) 85% BMI 27.72 kg/m? PHYSICAL EXAM: Physical Exam Vitals reviewed. (more content not included)... Normal [facility] CNOVon 08-28-2024 [facility] Office Visit (JAXONMJK ) SHEILA CROWE ([id number]) 1980 F Date Time Provider Department 08/28/24 1:30 PM FREEMAN SARABIA During your visit today, we recorded the following information about you: Pulse Respiration Blood pressure Weight 73/minute 18/minute 134/88 84.4 kg Carmel Stark, RN 08/28/2024 1:19 PM Signed Lyrica am/ Meloxicam am Meds help pain Denies side effects TENS, daily-helpful 01/04/24-b/l subacromial bursa Freeman Sarabia PA-C 08/28/2024 1:37 PM Signed This note was created using [employer]mix. Subjective Sheila Crowe is a 43 year old female. The patient primarily being seen for back, bilateral knee and shoulder pain, and generalized whole body pain Patient was last seen on: 05/23/24 At that time, the treatment plan was: see notes Current Meds: pregabalin - am, meloxicam - am Efficacy: helps Side effects: denies TENS unit: yes How often used: daily Benefit: helps Physical Therapy: now - [facility] Last UDS: Last injection: 01/04/24 - Bilateral subacromial bursa injections OARRS reviewed At the present time, the patient reports some benefit with her present analgesic therapy. She denies any adverse effects. She would like to try increasing the pregabalin dosing a little higher. Since her previous visit, she denies any hospitalizations or ER visits. She states that her shoulder pain has been getting worse and she would like to get the subacromial bursa injections repeated. They were previously done in December and gave her 70% relief initially. She got at least 50% relief for over 3 months. The shoulder pain is interfering with her ability to sit at her sewing machine. 08/07/2024 08/28/2024 INTAKE PAIN ASSESSMENT Are you having pain associated with your visit today? Yes, Provider notified Pain Scales Verbal (Numeric Rating or Visual Analog Scale) Pain Level 2 6 Pain Location Generalized Description Aching;Sharp;Pressure Frequency Continuous Intervention/Comfort measure Medication;Relaxation; Exercise;Cold;Other: See comment Comments relief with shoulder injections in past HPI PAST MEDICAL HISTORY Diagnosis Date Allergic rhinitis due to other allergen Bipolar I disorder, most recent episode (or current) unspecified hosp 04 mutile suicide attempts/Dr. Jenkins Hypercalcemia Migraine without aura Morbid obesity (HCC) stated BMI HT: 68 WT: 375 Myalgia and myositis, unspecified Other specified cardiac dysrhythmias(427.89) PMH - PAST MEDICAL HISTORY OF MONO Unspecified essential hypertension PAST SURGICAL HISTORY Procedure Laterality Date ADENOIDECTOMY PRIMARY Adenoidectomy COLONOSCOPY W/BIOPSY SINGLE/MULTIPLE 12/23/2019 EXTRACTION, ERUPTED TOOTH OR EXPOSED ROOT (ELEVATION AND/OR FORCEPS REMOVAL) 1995 [place] teeth TONSILLECTOMY PRIMARY/SECONDARY Tonsillectomy Social History Tobacco Use Smoking status: Former Current packs/day: 0.00 Types: Cigarettes Quit date: 06/16/2008 Years since quittin.2 Smokeless tobacco: Never Vaping Use Vaping status: Never Used Substance Use Topics Alcohol use: No Drug use: No Review of Systems Constitutional: Negative for fever and unexpected weight change. Musculoskeletal: +back pain, joint pain, muscle cramps/weakness, stiffness, arthritis, and leg pain with exertion. Objective BP 134/88 (BP Site: Left Arm, BP Position: Sitting, BP Cuff Size: Regular Adult) Pulse 73 Resp 18 Wt 84.4 kg (186 lb) LMP 02/22/2024 SpO2 99% BMI 28.28 kg/m? Physical Exam Vitals and nursing note reviewed. Constitutional: Appearance: Normal appearance. She is well-developed, well-groomed and overweight. HENT: Head: Normocephalic and atraumatic. Right Ear: Hearing normal. Left Ear: Hearing normal. Eyes: Conjunctiva/sclera: Conjunctivae normal. Comments: Wearing glasses Musculoskeletal: Comments: The patient walks with a normal gait. There is tenderness to palpation in the cervical and lumbar region with spasms noted in the trapezius, paraspinal, and latissimus dorsi muscles. She has tenderness noted over the right SI joint Strength is 5/5 throughout. Sensation is intact to light touch throughout. SLR is negative. She has tenderness to palpation in the knees bilaterally. There is tenderness noted over the bilateral subacromial bursas. Neurological: Mental Status: She is alert and oriented to person, place, and time. Psychiatric: Attention and Perception: Attention and perception normal. Mood and Affect: Mood and affect normal. Speech: Speech normal. Behavior: Behavior normal. Behavior is cooperative. Thought Content: Thought content normal. Judgment: Judgment normal. Assessment and Plan ASSESSMENT/PLAN: 1. Subacromial bursitis of both shoulders - ICD9: 726.19, ICD10: M75.51, M75.52 (primary diagnosis) - SURGICAL REQUEST - ELECTIVE (05/2020) 2 (more content not included)... Normal [facility] CNTHERAPYon 08-07-2024 CNTHERAPY OT/PT/Speech Visit (PTWS) SHEILA CROWE ([id number]) 1980 F Date Time Provider Department 08/07/24 11:30 AM SALVADOR HART PTWS Date Time Provider Department Center 08/07/2024 11:30 AM [id number], COLIN PTWS Irwin Rodriguez Reason for Visit: PT Discharge [752] Primary Visit Diagnosis:Acute midline low back pain without sciatica [M54.50] Allergies As of Date: 08/07/2024 Noted Allergy Reaction CLINDAMYCIN 07/05/2007 6 - Diarrhea Comments: Hives, cramping LEVAQUIN (LEVOFLOXACIN) 01/12/2009 7 - Swelling PENICILLINS 07/27/2005 2 - Rash SULFA (SULFONAMIDE ANTIBIOTICS) 03/29/2022 16 - Unknown ZITHROMAX (AZITHROMYCIN) 01/01/2009 9 - Itching Date Reviewed: 06/13/2024 Reviewed by: Ellen Rene APRN.GROUP RESERVATIONS COORDINATOR - Fully Assessed Prescriptions as of 08/07/2024 - pregabalin (LYRICA) 100 mg capsule Take 1 capsule by mouth three times a day for 120 days. - tiZANidine (ZANAFLEX) 4 mg tablet Take 1 tablet by mouth two times a day as needed (muscle spasms). - meloxicam (MOBIC) 15 mg tablet Take 0.5-1 tablets by mouth once daily as needed for pain. - buprenorphine (BUTRANS) 10 mcg/hour Apply 1 Patch as directed one time a week for 28 days. As directed. Do not start before April 11, 2024. - diclofenac sodium-menthol (DITHOL) 1.5-10 % combo pack Apply to affected area. - ketoconazole (NIZORAL) 2 % shampoo - zs-xr-uxdq-FA-Ca carb-vit K (WOMEN'S MULTIVITAMIN) 18 mg-400 mcg- 500 mg-50 mcg tab Women's Multivitamin 18 mg-400 mcg- 500 mg-50 mcg tablet - spironolactone (ALDACTONE) 25 mg tablet Take 25 mg by mouth three times a day. - ziprasidone (GEODON) 20 mg capsule Take 20 mg by mouth three times daily. - ziprasidone (GEODON) 60 mg capsule Take 120 mg by mouth once daily. - topiramate (TOPAMAX) 100 mg tablet Take 100 mg by mouth once daily. - topiramate (TOPAMAX) 200 mg tablet Take 400 mg by mouth once daily. - valbenazine (INGREZZA) 80 mg capsule Take 80 mg by mouth once daily. - benztropine (COGENTIN) 2 mg tablet Take 2 mg by mouth four times daily. - losartan (COZAAR) 25 mg tablet Take 25 mg by mouth twice daily. - lamoTRIgine (LAMICTAL) 200 mg tablet Take 400 mg by mouth once daily. Normal [facility] CNTHERAPYon 07-24-2024 CNTHERAPY OT/PT/Speech Visit (PTWS) CROWESHEILA WANG ([id number]) 1980 F Date Time Provider Department 07/24/24 11:30 AM SALVADOR HART PTWS Date Time Provider Department Center 07/24/2024 11:30 AM [id number], COLIN PTWS [place] Reason for Visit: Physical Therapy [503] Primary Visit Diagnosis:Acute midline low back pain without sciatica [M54.50] Allergies As of Date: 07/24/2024 Noted Allergy Reaction CLINDAMYCIN 07/05/2007 6 - Diarrhea Comments: Hives, cramping LEVAQUIN (LEVOFLOXACIN) 01/12/2009 7 - Swelling PENICILLINS 07/27/2005 2 - Rash SULFA (SULFONAMIDE ANTIBIOTICS) 03/29/2022 16 - Unknown ZITHROMAX (AZITHROMYCIN) 01/01/2009 9 - Itching Date Reviewed: 06/13/2024 Reviewed by: Ellen Rene APRN.GROUP RESERVATIONS COORDINATOR - Fully Assessed Prescriptions as of 07/24/2024 - pregabalin (LYRICA) 100 mg capsule Take 1 capsule by mouth three times a day for 120 days. - tiZANidine (ZANAFLEX) 4 mg tablet Take 1 tablet by mouth two times a day as needed (muscle spasms). - meloxicam (MOBIC) 15 mg tablet Take 0.5-1 tablets by mouth once daily as needed for pain. - buprenorphine (BUTRANS) 10 mcg/hour Apply 1 Patch as directed one time a week for 28 days. As directed. Do not start before April 11, 2024. - diclofenac sodium-menthol (DITHOL) 1.5-10 % combo pack Apply to affected area. - ketoconazole (NIZORAL) 2 % shampoo - kk-ui-unsw-FA-Ca carb-vit K (WOMEN'S MULTIVITAMIN) 18 mg-400 mcg- 500 mg-50 mcg tab Women's Multivitamin 18 mg-400 mcg- 500 mg-50 mcg tablet - spironolactone (ALDACTONE) 25 mg tablet Take 25 mg by mouth three times a day. - ziprasidone (GEODON) 20 mg capsule Take 20 mg by mouth three times daily. - ziprasidone (GEODON) 60 mg capsule Take 120 mg by mouth once daily. - topiramate (TOPAMAX) 100 mg tablet Take 100 mg by mouth once daily. - topiramate (TOPAMAX) 200 mg tablet Take 400 mg by mouth once daily. - valbenazine (INGREZZA) 80 mg capsule Take 80 mg by mouth once daily. - benztropine (COGENTIN) 2 mg tablet Take 2 mg by mouth four times daily. - losartan (COZAAR) 25 mg tablet Take 25 mg by mouth twice daily. - lamoTRIgine (LAMICTAL) 200 mg tablet Take 400 mg by mouth once daily. 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: Addendum Therapy (PT/OT/Speech/Resp) ID: [id number] 07/24/2024 11:54 AM Author: SALVADOR HART Signed by SALVADOR HART PT on 07/24/2024 at 11:54 AM * * * This document replaces document [id number] * * * Document text: Program_ID:[id number] Access Code: [email or web address] URL: [email or web address] Date: 07-24-2024 Prepared By: Salvador Hart Program Notes Exercises - Hooklying Single Knee to Chest Stretch - 1-2 x daily - 5-7 x weekly - 2-3 sets - reps - Supine Double Knee to Chest - 1-2 x daily - 5-7 x weekly - 2-3 sets - reps - Supine Posterior Pelvic Tilt - 2 x daily - 5-7 x weekly - 2 sets - 10 reps - Child's Pose Stretch - 1-2 x daily - 5-7 x weekly - 2-3 sets - reps - Cat Cow - 1-2 x daily - 5-7 x weekly - 2 sets - 10 reps - Anti-Rotation Press With Sidesteps and Anchored Resistance - 2 x daily - 5-7 x weekly - 2 sets - 8-10 reps - Seated Transversus Abdominis Bracing - 2 x daily - 5-7 x weekly - 2 sets - 10 reps -- Normal [facility] THERAPY NTon 07-24-2024 THERAPY NT HNO ID: [id number] Author: SALVADOR HART PT Service: ? Author Type: Physical Therapist Type: Therapy (PT/OT/Speech/Resp) Filed: 07/24/2024 11:54 Note Text: Program_ID:[id number] Access Code: [email or web address] URL: [email or web address]/ Date: 07-24-2024 Prepared By: Salvador Hart Program Notes Exercises - Hooklying Single Knee to Chest Stretch - 1-2 x daily - 5-7 x weekly - 2-3 sets - reps - Supine Double Knee to Chest - 1-2 x daily - 5-7 x weekly - 2-3 sets - reps - Supine Posterior Pelvic Tilt - 2 x daily - 5-7 x weekly - 2 sets - 10 reps - Child's Pose Stretch - 1-2 x daily - 5-7 x weekly - 2-3 sets - reps - Cat Cow - 1-2 x daily - 5-7 x weekly - 2 sets - 10 reps - Anti-Rotation Press With Sidesteps and Anchored Resistance - 2 x daily - 5-7 x weekly - 2 sets - 8-10 reps - Seated Transversus Abdominis Bracing - 2 x daily - 5-7 x weekly - 2 sets - 10 reps Normal [facility] CNTHERAPYon 07-10-2024 CNTHERAPY OT/PT/Speech Visit (PTWS) SHEILA CROWE ([id number]) 1980 F Date Time Provider Department 07/10/24 3:00 PM SALVADOR HART PTWS Date Time Provider Department Center 07/10/2024 3:00 PM [id number], COLIN PTWS Irwin Rodriguez Reason for Visit: Physical Therapy [503] Primary Visit Diagnosis:Acute midline low back pain without sciatica [M54.50] Allergies As of Date: 07/10/2024 Noted Allergy Reaction CLINDAMYCIN 07/05/2007 6 - Diarrhea Comments: Hives, cramping LEVAQUIN (LEVOFLOXACIN) 01/12/2009 7 - Swelling PENICILLINS 07/27/2005 2 - Rash SULFA (SULFONAMIDE ANTIBIOTICS) 03/29/2022 16 - Unknown ZITHROMAX (AZITHROMYCIN) 01/01/2009 9 - Itching Date Reviewed: 06/13/2024 Reviewed by: Ellen Rene APRN.GROUP RESERVATIONS COORDINATOR - Fully Assessed Prescriptions as of 07/10/2024 - tiZANidine (ZANAFLEX) 4 mg tablet Take 1 tablet by mouth two times a day as needed (muscle spasms). - pregabalin (LYRICA) 100 mg capsule Take 1 capsule by mouth three times a day for 120 days. - meloxicam (MOBIC) 15 mg tablet Take 0.5-1 tablets by mouth once daily as needed for pain. - buprenorphine (BUTRANS) 10 mcg/hour Apply 1 Patch as directed one time a week for 28 days. As directed. Do not start before April 11, 2024. - diclofenac sodium-menthol (DITHOL) 1.5-10 % combo pack Apply to affected area. - ketoconazole (NIZORAL) 2 % shampoo - jg-wf-kddn-FA-Ca carb-vit K (WOMEN'S MULTIVITAMIN) 18 mg-400 mcg- 500 mg-50 mcg tab Women's Multivitamin 18 mg-400 mcg- 500 mg-50 mcg tablet - spironolactone (ALDACTONE) 25 mg tablet Take 25 mg by mouth three times a day. - ziprasidone (GEODON) 20 mg capsule Take 20 mg by mouth three times daily. - ziprasidone (GEODON) 60 mg capsule Take 120 mg by mouth once daily. - topiramate (TOPAMAX) 100 mg tablet Take 100 mg by mouth once daily. - topiramate (TOPAMAX) 200 mg tablet Take 400 mg by mouth once daily. - valbenazine (INGREZZA) 80 mg capsule Take 80 mg by mouth once daily. - benztropine (COGENTIN) 2 mg tablet Take 2 mg by mouth four times daily. - losartan (COZAAR) 25 mg tablet Take 25 mg by mouth twice daily. - lamoTRIgine (LAMICTAL) 200 mg tablet Take 400 mg by mouth once daily. Normal [facility] [id number] 07-04-2024 [id number] HNO ID: [id number] Author: SALVADOR HART PT Service: ? Author Type: Physical Therapist Type: [id number] Filed: 07/04/2024 13:00 Note Text: [facility] Physical Therapy Plan of Care Certification Patient Name: Sheila Crowe : 1980 [facility] #: [id number] Date: 07/04/2024 To: Ellen Rene A* From Therapist: Salvador Hart PT RE: Patient Certification/ Recertification Your review, approval and electronic signature are required in order to comply with Payor: MEDICARE / Plan: MEDICARE A AND B / Product Type: Medicare / regulations. The identified Physical Therapy PLAN OF CARE for the patient is as follows: M54.50 Acute midline low back pain without sciatica (primary encounter diagnosis) PLAN OF CARE UPDATE: Assessment: Sheila Crowe demonstrates moderate improvement in pain severity + frequency (intermittent now), daily + physical activities, stair negotiation, Lumbar ROM, and sleeping. She has progressed toward goals. Patient continues to present with impairments in ADL's, overall function, range of motion, soft tissue healing, strength, symptom management, and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 erythematosus and mixed connective tissue disease. Cross-reactivity with Anti-sarabia antibody is not uncommon. Clinical correlation is required. Test Methodology: Multiplex flow immunoassay. Performed By: [place] [address] Diagram Clerk: Carlos Mistry III, M.D. CLIA#: [id number] Performed By: #### A 1C, 591932, ENA1, 699352, 688740, TSH #### [address] [address] #### IFES, B12, RF, SPE, FOL #### [address] [address] PROJECT ACCOUNT MANAGER Antibody <0.2 Normal <1.0 [facility] ([place]) Comment on above: Result Comment: Anti -PROJECT ACCOUNT MANAGER antibody is used as an aid in diagnosis of systemic autoimmune diseases especially systemic lupus erythematosus and mixed connective tissue disease. Cross-reactivity with Anti-sarabia antibody is not uncommon. Clinical correlation is required. Test Methodology: Multiplex flow immunoassay. Performed By: [facility] [place] [place] [address] Diagram Clerk: Carlos Mistry III, M.D. CLIA#: [id number] Performed By: #### A 1C, 615091, ENA1, 493860, 057739, TSH #### [address] [address] #### IFES, B12, RF, SPE, FOL #### [address] [address] PROJECT ACCOUNT MANAGER Antibody Qualitative Negative Normal Negative [facility] ([place]) Comment on above: Result Comment: Perf ormed By: [place] [address] Diagram Clerk: Carlos Mistry III, M.D. CLIA#: [id number] Performed By: #### A 1C, 620796, ENA1, 673599, 346031, TSH #### [place] [address] #### IFES, B12, RF, SPE, FOL #### [address] [address] Scleroderma Ab, IgG Qualitative Negative Normal Negative [facility] ([place]) Comment on above: Result Comment: Perf ormed By: [place] [address] Diagram Clerk: Carlos Mistry III, M.D. CLIA#: [id number] Performed By: #### A 1C, 360166, ENA1, 115360, 102395, TSH #### [place] [address] #### IFES, B12, RF, SPE, FOL #### [place] [id number] Scleroderma IgG Ab <0.2 Normal <1.0 [facility] ([place]) Comment on above: Result Comment: Scl- 70/Scleroderma antibody test is used as an aid in diagnosis of systemic sclerosis especially the diffuse cutaneous form. A negative result cannot rule out systemic sclerosis. The final interpretation should consider clinical picture and other test results such as anti-centromere antibody. Test Methodology: Multiplex flow immunoassay. Performed By: [place] [address] Diagram Clerk: Carlos Mistry III, M.D. CLIA#: [id number] Performed By: #### A 1C, 176179, ENA1, 752511, 402353, TSH #### [place] [address] #### IFES, B12, RF, SPE, FOL #### [address] [address] Sm Antibody <0.2 Normal <1.0 [facility] ([place]) Comment on above: Result Comment: Perf ormed By: [place] [address] Diagram Clerk: Carlos Mistry III, M.D. CLIA#: [id number] Performed By: #### A 1C, 137754, ENA1, 602672, 158901, TSH #### [place] [address] #### IFES, B12, RF, SPE, FOL #### [address] [address] Sm Antibody Qual Negative Normal Negative [facility] ([place]) Comment on above: Result Comment: Anti -Sm (Sarabia) antibody is used as an aid in diagnosis of systemic lupus erythematosus and its presence is associated with renal disease. A negative result cannot rule out systemic lupus erythematosus. Clinical correlation is required. Test Methodology: Multiplex flow immunoassay. Performed By: [facility] [place] [place] [address] Diagram Clerk: Carlos Mistry III, M.D. CLIA#: [id number] Performed By: #### A 1C, 011330, ENA1, 747457, 384991, TSH #### [place] [address] #### IFES, B12, RF, SPE, FOL #### [address] [address] SS-A Antibody <0.2 Normal <1.0 [facility] ([place]) Comment on above: Result Comment: Test Methodology: Multiplex flow immunoassay. Anti-SSA (anti-Ro) antibody is used as an aid in diagnosis of a variety of systemic autoimmune diseases, Sjogren's syndrome among others. Clinical correlation is required. Test Methodology: Multiplex flow immunoassay. Performed By: [facility] [place], [place] [address] Diagram Clerk: Carlos Mistry III, M.D. CLIA#: [id number] Performed By: #### A 1C, 168906, ENA1, 247763, 205138, TSH #### [address] [address] #### IFES, B12, RF, SPE, FOL #### [address] [address] SS-B Antibody <0.2 Normal <1.0 [facility] ([place]) Comment on above: Result Comment: Anti -SSB (anti-La) antibody is used as an aid in diagnosis of a variety of systemic autoimmune diseases, especially for Sjogren's syndrome and systemic lupus erythematosus. Clinical correlation is required. Test Methodology: Multiplex flow immunoassay. Performed By: [place] [address] Diagram Clerk: Carlos Mistry III, M.D. CLIA#: [id number] Performed By: #### A 1C, 629151, ENA1, 884164, 405341, TSH #### [address] [address] #### IFES, B12, RF, SPE, FOL #### [address] [address] SSA Antibody Qualitative Negative Normal Negative [facility] ([place]) Comment on above: Result Comment: Perf ormed By: [facility] [place], [place] [address] Diagram Clerk: Carlos Mistry III, M.D. CLIA#: [id number] Performed By: #### A 1C, 861639, ENA1, 367168, 926371, TSH #### [address] [address] #### IFES, B12, RF, SPE, FOL #### [address] [address] SSB Antibody Qualitative Negative Normal Negative [facility] ([place]) Comment on above: Result Comment: Perf ormed By: [facility] [address] [place], [place] [address] [address] Diagram Clerk: Carlos Mistry III, M.D. CLIA#: [id number] Performed By: #### A 1C, 110864, ENA1, 761032, 758000, TSH #### [address] [address] #### IFES, B12, RF, SPE, FOL #### [place] [id number] IFESon 12-06-2023 IFES Interpretation Immunofixation electrophoresis of serum shows the presence of only polyclonal immunoglobulins (IgG,A,M,[place] and Lambda), No monoclonal protein detected. Normal [facility] ([place]) Comment on above: Result Comment: Elec tronically Signed by: TAYLOR RADFORD 12/06/2023 15:12 EST Performed By: #### A 1C, 915814, ENA1, 315335, 420445, TSH #### [place] [address] #### IFES, B12, RF, SPE, FOL #### [place] [id number] A1Con 12-05-2023 HbA1c (Bld) [Mass fraction] 4.3 % Normal 4.3-6.4 [facility] ([place]) Comment on above: Performed By: #### A 1C, 992812, ENA1, 698678, 645907, TSH #### [place] [address] #### IFES, B12, RF, SPE, FOL #### [place] [id number] B12on 12-05-2023 Cobalamin (Vitamin B12) [Mass/Vol] 1209 pg/mL High 211-911 [facility] ([place]) Comment on above: Performed By: #### A 1C, 311910, ENA1, 107077, 470576, TSH #### [place] [address] #### IFES, B12, RF, SPE, FOL #### [address] [address] FOLon 12-05-2023 Folate 24.22 ng/mL High 5.38-24.00 [facility] ([place]) Comment on above: Performed By: #### A 1C, 665344, ENA1, 194465, 676540, TSH #### [address] [address] #### IFES, B12, RF, SPE, FOL #### [place] [address] LABORATORYOrdered By: SYSTEM SYSTEM on 12-05-2023 Cobalamin (Vitamin B12) [Mass/Vol] 1209 pg/mL High 211 - 911 pg/mL AH ADM SS Folate [Mass/Vol] 24.22 ng/mL High 5.38 - 24. 00 ng/mL AH ADM SS HbA1c (Bld) [Mass fraction] 4.3 % Normal 4.3 - 6.4 % AO ADM SS TSH Qn 1.48 m[IU]/L Normal 0.36 - 3.74 mcIU/mL AO ADM SS LABORATORYOrdered By: Milvia Diamond on 12-05-2023 Protein [Mass/Vol] 7.6 G/dL Normal 5.7 - 8.2 G/dL ADM SS Comment on above: Interpretive Data: * *Note - New Reference Range in effect 20 SPEon 12-05-2023 Total Protein 7.6 G/dL Normal 5.7-8.2 [facility] ([place]) Comment on above: Result Comment: No te - New Reference Range in effect 20 Performed By: #### A 1C, 153517, ENA1, 584656, 155607, TSH #### [address] [address] #### IFES, B12, RF, SPE, FOL #### [address] [address] TSHon 12-05-2023 TSH Qn 1.48 m[IU]/L Normal 0.36-3.74 [facility] ([place]) Comment on above: Performed By: #### A 1C, 283815, ENA1, 720716, 980887, TSH #### [address] [address] #### IFES, B12, RF, SPE, FOL #### [address] [address] CBC W Auto Differential pane l (Bld)on 10-13-2023 Basophils (Bld) [#/Vol] <0.11 k/uL [facility] Basophils/100 WBC (Bld) 0.2 % [facility] Differential cell count method Nom (Bld) Auto [facility] Eosinophils (Bld) [#/Vol] 0.04 10*3/uL <0.46 k/uL [facility] Eosinophils/100 WBC (Bld) 0.7 % [facility] Erythrocyte distribution width (RBC) [Ratio] 13.1 % 11.5 - 15.0 % [facility] Hematocrit (Bld) [Volume fraction] 43.1 % 36.0 - 46.0 % [facility] Hemoglobin (Bld) [Mass/Vol] 13.9 g/dL 11.5 - 15.5 g/dL [facility] Immature granulocytes (Bld) [#/Vol] <0.10 k/uL [facility] Immature granulocytes/100 WBC (Bld) 0.3 % [facility] Lymphocytes (Bld) [#/Vol] 1.25 10*3/uL 1.00 - 4.00 k/uL [facility] Lymphocytes/100 WBC (Bld) 21.8 % [facility] MCH (RBC) [Entitic mass] 30.0 pg 26.0 - 34.0 pg [facility] MCHC (RBC) [Mass/Vol] 32.3 g/dL 30.5 - 36.0 g/dL [facility] MCV (RBC) [Entitic vol] 93.1 fL 80.0 - 100.0 fL [facility] Monocytes (Bld) [#/Vol] 0.23 10*3/uL <0.87 k/uL [facility] Monocytes/100 WBC (Bld) 4.0 % [facility] Neutrophils (Bld) [#/Vol] 4.19 10*3/uL 1.45 - 7.50 k/uL [facility] Neutrophils/100 WBC (Bld) 73.0 % [facility] Nucleated RBC (Bld) [#/Vol] <0.01 k/uL [facility] Nucleated RBC/100 WBC (Bld) [Ratio] 0.0 /100 WBC [facility] Platelet mean volume (Bld) [Entitic vol] 10.8 fL 9.0 - 12.7 fL [facility] Platelets (Bld) [#/Vol] 185 10*3/uL 150 - 400 k/uL [facility] RBC (Bld) [#/Vol] 4.63 10*6/uL 3.90 - 5.2 0 m/uL [facility] WBC (Bld) [#/Vol] 5.74 10*3/uL 3.70 - 11. 00 k/uL [facility] ESR Westergren method (Bld) [Velocity]on 10-13-2023 ESR (Bld) [Velocity] 2 mm/h 0 - 20 mm/hr [facility] ANAIFSon 07-21-2023 Antinuclear Ab Screen Negative Normal Negative [facility] ([place]) Comment on above: Result Comment: Anti -nuclear antibody test is used as an aid in diagnosis of systemic autoimmune diseases. Where positive and clinically warranted, follow-up using disease-specific testing is recommended. Low positive titers are not uncommon with advanced age, certain chronic infections, and malignancies among others. Test methodology: Indirect fluorescence immunoassay (IFA) using HEp-2 cells. Performed By: [facility] [address] [place] [address] Diagram Clerk: Carlos Mistry III, M.D. CLIA#: [id number] Performed By: #### A NAIFS #### [address] [address] .Auto Diffon 07-19-2023 Basophil, Absolute 0.0 10 3/mcL Normal 0.0-0.2 [facility] ([place]) Comment on above: Performed By: #### A 1C, 713793, ENA1, 369086, 294082, TSH #### [place] [address] [place], [place] [address] #### IFES, B12, RF, SPE, FOL #### [address] [address] Basophils/100 WBC (Bld) 0.3 % Normal 0.0-2.5 [facility] ([place]) Comment on above: Performed By: #### A 1C, 966218, ENA1, 346428, 724066, TSH #### [address] [address] #### IFES, B12, RF, SPE, FOL #### [address] [address] Eosinophil, Absolute 0.0 10 3/mcL Normal 0.0-0.4 [facility] ([place]) Comment on above: Performed By: #### A 1C, 582927, ENA1, 761057, 468602, TSH #### [address] [address] #### IFES, B12, RF, SPE, FOL #### [address] [address] Eosinophils/100 WBC (Bld) 1.0 % Normal 0.0-7.0 [facility] ([place]) Comment on above: Performed By: #### A 1C, 032870, ENA1, 387624, 390103, TSH #### [place] [address] #### IFES, B12, RF, SPE, FOL #### [address] [address] Lymphocyte, Absolute 1.2 10 3/mcL Normal 0.8-3.9 [facility] ([place]) Comment on above: Performed By: #### A 1C, 110317, ENA1, 076444, 669378, TSH #### [address] [address] #### IFES, B12, RF, SPE, FOL #### [address] [address] Lymphocytes/100 WBC (Bld) 24.9 % Normal 10.0-50.0 [facility] ([place]) Comment on above: Performed By: #### A 1C, 530518, ENA1, 508117, 293910, TSH #### [address] [address] #### IFES, B12, RF, SPE, FOL #### [address] [address] Monocyte, Absolute 0.2 10 3/mcL Normal 0.2-1.0 [facility] ([place]) Comment on above: Performed By: #### A 1C, 663674, ENA1, 213920, 586210, TSH #### [place] [address] #### IFES, B12, RF, SPE, FOL #### [address] [address] Monocytes/100 WBC (Bld) 4.5 % Normal 1.7-13.0 [facility] ([place]) Comment on above: Performed By: #### A 1C, 119855, ENA1, 393473, 619215, TSH #### [place] [address] #### IFES, B12, RF, SPE, FOL #### [address] [address] Neutrophils/100 WBC (Bld) 69.3 % Normal 37.0-80.0 [facility] ([place]) Comment on above: Performed By: #### A 1C, 188359, ENA1, 593353, 889562, TSH #### [place] [address] #### IFES, B12, RF, SPE, FOL #### [address] [address] .GFRon 07-19-2023 GFR Non- 60 ml/min/1.73sqm Normal [facility] ([place]) Comment on above: Result Comment: GFR Population mean for , Non- Americans Ages 20-29 = 116 mL/min/1.73 sq.m. Ages 30-39 = 107 mL/min/1.73 sq.m. Ages 40-49 = 99 mL/min/1.73 sq.m. Ages 50-59 = 93 mL/min/1.73 sq.m. Ages 60-69 = 85 mL/min/1.73 sq.m. Ages 70+ = 75 mL/min/1.73 sq.m. Chronic Kidney Disease: Less than 60 mL/min/1.73 square meters End Stage Renal Disease: Less than 15 mL/min/1.73 square meters Performed By: #### A 1C, 099033, ENA1, 288954, 172402, TSH #### [address] [address] #### IFES, B12, RF, SPE, FOL #### [address] [address] GFR 72 ml/min/1.73sqm Normal [facility] ([place]) Comment on above: Result Comment: GFR Population mean for , Non- Americans Ages 20-29 = 116 mL/min/1.73 sq.m. Ages 30-39 = 107 mL/min/1.73 sq.m. Ages 40-49 = 99 mL/min/1.73 sq.m. Ages 50-59 = 93 mL/min/1.73 sq.m. Ages 60-69 = 85 mL/min/1.73 sq.m. Ages 70+ = 75 mL/min/1.73 sq.m. Chronic Kidney Disease: Less than 60 mL/min/1.73 square meters End Stage Renal Disease: Less than 15 mL/min/1.73 square meters Performed By: #### Elizabeth 1C, 893864, ENA1, 181287, 703564, TSH #### [address] [address] #### IFES, B12, RF, SPE, FOL #### [address] [address] .NEUABSon 07-19-2023 Neutrophil, Absolute 3.4 10 3/mcL Normal 2.9-6.2 [facility] ([place]) Comment on above: Performed By: #### A 1C, 081155, ENA1, 676452, 243421, TSH #### [address] [address] #### IFES, B12, RF, SPE, FOL #### [address] [address] A1Con 07-19-2023 HbA1c (Bld) [Mass fraction] 5.0 % Normal 4.3-6.4 [facility] ([place]) Comment on above: Performed By: #### A 1C, 539337, ENA1, 271760, 899329, TSH #### [place] [address] #### IFES, B12, RF, SPE, FOL #### [place] [address] CBCon 07-19-2023 Erythrocyte distribution width (RBC) [Ratio] 12.9 % Normal 11.5-14.5 [facility] ([place]) Comment on above: Performed By: #### A 1C, 707762, ENA1, 009924, 998796, TSH #### [place] [address] #### IFES, B12, RF, SPE, FOL #### [place] [address] Hematocrit (Bld) [Volume fraction] 38.0 % Normal 37.0-47.0 [facility] ([place]) Comment on above: Performed By: #### A 1C, 704214, ENA1, 849918, 466665, TSH #### [place] [address] #### IFES, B12, RF, SPE, FOL #### [place] [address] Hgb 12.9 G/dL Normal 12.0-16.0 [facility] ([place]) Comment on above: Performed By: #### A 1C, 261724, ENA1, 568653, 555153, TSH #### [place] [address] #### IFES, B12, RF, SPE, FOL #### [place] [address] MCH (RBC) [Entitic mass] 30.4 pg Normal 27.0-31.2 [facility] ([place]) Comment on above: Performed By: #### A 1C, 582385, ENA1, 150474, 219763, TSH #### [place] [address] #### IFES, B12, RF, SPE, FOL #### [address] [address] MCHC 34.1 G/dL Normal 33.0-37.0 [facility] ([place]) Comment on above: Performed By: #### A 1C, 849449, ENA1, 675341, 394742, TSH #### [place] [address] #### IFES, B12, RF, SPE, FOL #### [place] [address] MCV (RBC) [Entitic vol] 89.2 fL Normal 80.0-94.0 [facility] ([place]) Comment on above: Performed By: #### A 1C, 620412, ENA1, 284878, 750914, TSH #### [place] [address] #### IFES, B12, RF, SPE, FOL #### [place] [address] Platelet 138 10 3/mcL Normal 130-400 [facility] ([place]) Comment on above: Performed By: #### A 1C, 520574, ENA1, 918218, 125449, TSH #### [place] [address] #### IFES, B12, RF, SPE, FOL #### [place] [address] Platelet mean volume (Bld) [Entitic vol] 9.5 fL Normal 7.4-10.4 [facility] ([place]) Comment on above: Performed By: #### A 1C, 483022, ENA1, 388025, 625784, TSH #### [place] [address] #### IFES, B12, RF, SPE, FOL #### [address] [address] RBC 4.26 10 6/mcL Normal 4.20-5.40 [facility] ([place]) Comment on above: Performed By: #### A 1C, 765339, ENA1, 917009, 690004, TSH #### [place] [address] #### IFES, B12, RF, SPE, FOL #### [place] [address] WBC 4.9 10 3/mcL Normal 4.6-10.8 [facility] ([place]) Comment on above: Performed By: #### Elizabeth 1C, 128178, ENA1, 305893, 699839, TSH #### [place] [address] #### IFES, B12, RF, SPE, FOL #### [place] [address] CMPon 07-19-2023 Albumin Level 4.5 G/dL Normal 3.5-5.0 [facility] ([place]) Comment on above: Performed By: #### Elizabeth 1C, 268574, ENA1, 446207, 682089, TSH #### [place] [address] #### IFES, B12, RF, SPE, FOL #### [place] [address] Albumin/Globulin [Mass ratio] 1.4 {ratio} Normal 1.1-2.5 [facility] ([place]) Comment on above: Performed By: #### A 1C, 048671, ENA1, 460957, 209475, TSH #### [place] [address] #### IFES, B12, RF, SPE, FOL #### [place] [address] ALP [Catalytic activity/Vol] 67 U/L Normal 40-135 [facility] ([place]) Comment on above: Performed By: #### A 1C, 935404, ENA1, 056452, 984720, TSH #### [place] [address] #### IFES, B12, RF, SPE, FOL #### [address] [address] ALT [Catalytic activity/Vol] 25 U/L Normal 14-59 [facility] ([place]) Comment on above: Performed By: #### A 1C, 302630, ENA1, 881015, 458995, TSH #### [place] [address] #### IFES, B12, RF, SPE, FOL #### [place] [address] AST [Catalytic activity/Vol] 18 U/L Normal 10-40 [facility] ([place]) Comment on above: Performed By: #### A 1C, 177561, ENA1, 226540, 659829, TSH #### [place] [address] #### IFES, B12, RF, SPE, FOL #### [place] [address] Bili Total 0.4 mg/dL Normal 0.2-1.0 [facility] ([place]) Comment on above: Result Comment: Use of this assay is not recommended for patients undergoing treatment with eltrombopag due to the potential for falsely elevated results. Performed By: #### A 1C, 192616, ENA1, 112726, 284815, TSH #### [place] [address] #### IFES, B12, RF, SPE, FOL #### [place] [id number] BUN/Creatinine Ratio 20 ratio Normal 7-27 [facility] ([place]) Comment on above: Performed By: #### A 1C, 726330, ENA1, 317272, 539445, TSH #### [place] [address] #### IFES, B12, RF, SPE, FOL #### [address] [address] Calcium [Mass/Vol] 9.4 mg/dL Normal 8.4-10.2 [facility] ([place]) Comment on above: Performed By: #### A 1C, 047507, ENA1, 611674, 435641, TSH #### [place] [address] #### IFES, B12, RF, SPE, FOL #### [address] [address] Chloride [Moles/Vol] 106 mmol/L Normal 98-107 [facility] ([place]) Comment on above: Performed By: #### A 1C, 873038, ENA1, 240250, 906996, TSH #### [place] [address] #### IFES, B12, RF, SPE, FOL #### [place] [address] CO2 [Moles/Vol] 24 mmol/L Normal 22-29 [facility] ([place]) Comment on above: Performed By: #### A 1C, 498510, ENA1, 605846, 404363, TSH #### [place] [address] #### IFES, B12, RF, SPE, FOL #### [address] [address] Creatinine [Mass/Vol] 1.01 mg/dL Normal 0.55-1.02 [facility] ([place]) Comment on above: Performed By: #### A 1C, 099671, ENA1, 398626, 134901, TSH #### [place] [address] #### IFES, B12, RF, SPE, FOL #### [address] [address] Electrolyte Balance 12.0 mEq/L Normal 4.0-15.0 [facility] ([place]) Comment on above: Performed By: #### A 1C, 679143, ENA1, 953675, 479898, TSH #### [address] [address] #### IFES, B12, RF, SPE, FOL #### [address] [address] Globulin 3.3 G/dL Normal [facility] ([place]) Comment on above: Performed By: #### A 1C, 515972, ENA1, 194439, 922216, TSH #### [address] [address] #### IFES, B12, RF, SPE, FOL #### [address] [address] Glucose [Mass/Vol] 89 mg/dL Normal 70-105 [facility] ([place]) Comment on above: Performed By: #### A 1C, 907769, ENA1, 390547, 305395, TSH #### [place] [address] #### IFES, B12, RF, SPE, FOL #### [address] [address] Potassium [Moles/Vol] 4.0 mmol/L Normal 3.5-5.1 [facility] ([place]) Comment on above: Performed By: #### A 1C, 308275, ENA1, 844794, 799169, TSH #### [address] [address] #### IFES, B12, RF, SPE, FOL #### [address] [address] Sodium [Moles/Vol] 142 mmol/L Normal 136-145 [facility] ([place]) Comment on above: Performed By: #### A 1C, 523008, ENA1, 645379, 802873, TSH #### [address] [address] #### IFES, B12, RF, SPE, FOL #### [address] [address] Total Protein 7.8 G/dL Normal 6.4-8.2 [facility] ([place]) Comment on above: Performed By: #### A 1C, 543902, ENA1, 546650, 558051, TSH #### [address] [address] #### IFES, B12, RF, SPE, FOL #### [address] [address] Urea nitrogen [Mass/Vol] 20 mg/dL High 7-18 [facility] ([place]) Comment on above: Performed By: #### A 1C, 678528, ENA1, 276507, 918318, TSH #### [address] [address] #### IFES, B12, RF, SPE, FOL #### [address] [address] Neal 07-19-2023 Ferritin [Mass/Vol] 51.0 ng/mL Normal 8.0-252.0 [facility] ([place]) Comment on above: Performed By: #### A 1C, 595011, ENA1, 600178, 127378, TSH #### [address] [address] #### IFES, B12, RF, SPE, FOL #### [address] [address] LIPIDon 07-19-2023 Cholesterol [Mass/Vol] 180 mg/dL Normal 0-200 [facility] ([place]) Comment on above: Result Comment: Chol esterol Reference Interval: Less than 200 Desirable 200-239 Borderline high risk 240 and above High risk Performed By: #### A 1C, 260357, ENA1, 912424, 996205, TSH #### [address] [address] #### IFES, B12, RF, SPE, FOL #### [address] [address] Cholesterol in HDL [Mass/Vol] 55 mg/dL Normal 40-60 [facility] ([place]) Comment on above: Performed By: #### A 1C, 069466, ENA1, 344232, 072074, TSH #### [address] [address] #### IFES, B12, RF, SPE, FOL #### [address] [address] Cholesterol in LDL [Mass/Vol] 112 mg/dL Normal 0-130 [facility] ([place]) Comment on above: Performed By: #### A 1C, 339110, ENA1, 262829, 924119, TSH #### [address] [address] #### IFES, B12, RF, SPE, FOL #### [address] [address] Triglyceride [Mass/Vol] 63 mg/dL Normal 0-150 [facility] ([place]) Comment on above: Result Comment: Trig lyceride Reference Interval: Less than 150 Normal 150-199 Borderline high risk 200-499 High risk 500 or higher Very high risk Performed By: #### A 1C, 616482, ENA1, 143916, 069944, TSH #### [address] [address] #### IFES, B12, RF, SPE, FOL #### [address] [address] TSHon 07-19-2023 TSH Qn 1.84 m[IU]/L Normal 0.36-3.74 [facility] ([place]) Comment on above: Performed By: #### A 1C, 872977, ENA1, 294340, 345953, TSH #### [address] [address] #### IFES, B12, RF, SPE, FOL #### [address] [address] aTPOon 07-19-2023 anti-Thyroid Peroxidase <28 Normal 0-60 [facility] ([place]) Comment on above: Result Comment: No te - New Reference Range in effect 20 Performed By: #### A 1C, 142985, ENA1, 123965, 723109, TSH #### [facility] [address] [place], [place] [address] #### IFES, B12, RF, SPE, FOL #### [facility] [address] [place] [address] BRITTON SCREENINGon 12-08-2022 [facility] Vitamin D 25 Hydroxyon 05-28 Vitamin D 25 Hydroxy 53.8 ng/mL Normal 31.0-80.0 [facility] Comment on above: Performed By: #### V ITD #### [facility] Routine Lab [address] [place], [place] [address] KNEE COMP 4 OR MORE VWS BILo n 03-18-2020 KNEE COMP 4 OR MORE VWS HANNAH KNEE COMP 4 OR MORE VWS HANNAH Ordering Physician: Freeman Sarabia 03/18/2020 10:15 AM 10 VIEWS BILATERAL KNEES: Clinical Statement: AP Comparison: None FINDINGS: On the right there is no fracture or dislocation. Tricompartment osteoarthritis is noted there is no joint effusion or apparent soft tissue swelling. On the left there is no fracture or dislocation. There is mild tricompartment osteoarthritis most severe in the medial compartment and mild in the lateral compartment and patellofemoral compartment is no appreciable joint effusion or soft tissue swelling. IMPRESSION: No acute osseous abnormality. Bilateral tricompartment osteoarthritis. Findings are more severe on the right than left with only mild degenerative changes in the lateral compartment of the left knee and patellofemoral compartment of the left knee ---- Electronic Signature on File ---- Signed By: Edy Rienoso MD [email or web address] Dictated: 03/18/2020 10:37 AM Signed: 03/18/2020 10:41 AM Reported By: EDY REINOSO M.D. Signed By: EDY REINOSO M.D. [facility] Vital Signs Date Time Vital Sign Value Performing Clinician Luis F christian 05-22-2025 10:24-0400 Body height 172.[address] Torres Yao MD Work Phone: [facility] 05-22-2025 10:24-0400 Body mass index (BMI) [Ratio] 28.4 kg/m2 Dr. Torres Yao MD Work Phone: [facility] 05-22-2025 10:24-0400 Body weight 84.[address] Torres Yao MD Work Phone: [facility] 05-16-2025 13:36-0400 Body mass index (BMI) [Ratio] 28.43 kg/m2 Torres Yao MD Work Phone: [facility] 05-16-2025 13:36-0400 Body weight 84.82 kg Torres Yao MD Work Phone: [facility] 05-16-2025 13:36-0400 Diastolic blood pressure 72 mm[Hg] Torres Yao MD Work Phone: [facility] 05-16-2025 13:36-0400 Heart rate 77 /min Torres Yao MD Work Phone: [facility] 05-16-2025 13:36-0400 SaO2% (BldA) [Mass fraction] 99 % Torres Yao MD Work Phone: [facility] 05-16-2025 13:36-0400 Systolic blood pressure 120 mm[Hg] Torres Yao MD Work Phone: [facility] 05-15-2025 11:16-0400 Diastolic blood pressure 83 mm[Hg] Freeman Sarabia PA-C Work Phone: [facility] 05-15-2025 11:16-0400 Heart rate 74 /min Freeman Sarabia PA-C Work Phone: [facility] 05-15-2025 11:16-0400 Respiratory rate 16 /min Freeman Sarabia PA-C Work Phone: [facility] 05-15-2025 11:16-0400 SaO2% (BldA) [Mass fraction] 100 % Freeman DUKE-C Work Phone: [facility] 05-15-2025 11:16-0400 Systolic blood pressure 132 mm[Hg] Freeman Sarabia PA-C Work Phone: [facility] 05-05-2025 12:58-0400 Diastolic blood pressure 66 mm[Hg] Ellen Suppan STAFF ELECTRONIC WARFARE OFFICER.GROUP RESERVATIONS COORDINATOR Work Phone: [facility] 05-05-2025 12:58-0400 Systolic blood pressure 110 mm[Hg] Ellen Suppan STAFF ELECTRONIC WARFARE OFFICER.GROUP RESERVATIONS COORDINATOR Work Phone: [facility] 05-05-2025 12:44-0400 Body mass index (BMI) [Ratio] 29.8 kg/m2 Ellen Suppan STAFF ELECTRONIC WARFARE OFFICER.GROUP RESERVATIONS COORDINATOR Work Phone: [facility] 05-05-2025 12:44-0400 Body temperature 97.59 [degF] Ellen Suppan STAFF ELECTRONIC WARFARE OFFICER.GROUP RESERVATIONS COORDINATOR Work Phone: [facility] 05-05-2025 12:44-0400 Body weight 88.91 kg Ellen Suppan STAFF ELECTRONIC WARFARE OFFICER.GROUP RESERVATIONS COORDINATOR Work Phone: [facility] 05-05-2025 12:44-0400 Heart rate 67 /min Ellen Suppan STAFF ELECTRONIC WARFARE OFFICER.GROUP RESERVATIONS COORDINATOR Work Phone: [facility] 05-05-2025 12:44-0400 SaO2% (BldA) [Mass fraction] 99 % Ellen Suppan STAFF ELECTRONIC WARFARE OFFICER.GROUP RESERVATIONS COORDINATOR Work Phone: [facility] 04-21-2025 11:00-0400 Body height 172.[address] Torres Yao MD Work Phone: [facility] 04-21-2025 11:00-0400 Body mass index (BMI) [Ratio] 29.5 kg/m2 Dr. Torres Yao MD Work Phone: [facility] 04-21-2025 11:00-0400 Body weight 88.[address] Torres Yao MD Work Phone: [facility] 03-14-2025 10:32-0400 Diastolic blood pressure 78 mm[Hg] Torres Yao MD Work Phone: [facility] 03-14-2025 10:32-0400 Systolic blood pressure 132 mm[Hg] Torres Yao MD Work Phone: [facility] 03-14-2025 10:08-0400 Body mass index (BMI) [Ratio] 27.83 kg/m2 Torres Yao MD Work Phone: [facility] 03-14-2025 10:08-0400 Body weight 83.01 kg Torres Yao MD Work Phone: [facility] 03-14-2025 10:08-0400 Heart rate 97 /min Torres Yao MD Work Phone: [facility] 03-14-2025 10:08-0400 SaO2% (BldA) [Mass fraction] 99 % Torres Yao MD Work Phone: [facility] 02-14-2025 13:13-0400 Body mass index (BMI) [Ratio] 28.13 kg/m2 Freeman Sarabia PA-C Work Phone: [facility] 02-14-2025 13:13-0400 Body weight 83.92 kg Freeman Sarabia PA-C Work Phone: [facility] 02-14-2025 13:13-0400 Diastolic blood pressure 88 mm[Hg] Freeman Sarabia PA-C Work Phone: [facility] 02-14-2025 13:13-0400 Heart rate 84 /min Freeman Sarabia PA-C Work Phone: [facility] 02-14-2025 13:13-0400 Respiratory rate 18 /min Freeman Sarabia PA-C Work Phone: [facility] 02-14-2025 13:13-0400 SaO2% (BldA) [Mass fraction] 99 % Freeman Sarabia PA-C Work Phone: [facility] 02-14-2025 13:13-0400 Systolic blood pressure 142 mm[Hg] Freeman Sarabia PA-C Work Phone: [facility] 11-22-2024 11:27-0500 Body mass index (BMI) [Ratio] 27.67 kg/m2 Freeman Sarabia PA-C Work Phone: [facility] 11-22-2024 11:27-0500 Body weight 82.56 kg Freeman Sarabia PA-C Work Phone: [facility] 11-22-2024 11:27-0500 Diastolic blood pressure 90 mm[Hg] Freeman Sarabia PA-C Work Phone: [facility] 11-22-2024 11:27-0500 Heart rate 71 /min Freeman Sarabia PA-C Work Phone: [facility] 11-22-2024 11:27-0500 Respiratory rate 18 /min Freeman Sarabia PA-C Work Phone: [facility] 11-22-2024 11:27-0500 SaO2% (BldA) [Mass fraction] 100 % Freeman Sarabia PA-C Work Phone: [facility] 11-22-2024 11:27-0500 Systolic blood pressure 133 mm[Hg] Freeman Sarabia PA-C Work Phone: [facility] 09-17-2024 13:25-0500 Diastolic blood pressure 70 mm[Hg] Isaac Cannon MD Work Phone: [facility] 09-17-2024 13:25-0500 Heart rate 69 /min Isaac Cannon MD Work Phone: [facility] 09-17-2024 13:25-0500 Respiratory rate 18 /min Isaac Cannon MD Work Phone: [facility] 09-17-2024 13:25-0500 Systolic blood pressure 114 mm[Hg] Isaac Cannon MD Work Phone: [facility] 09-17-2024 13:00-0500 Body temperature 97.2 [degF] Isaac Cannon MD Work Phone: [facility] 09-12-2024 10:08-0500 Body mass index (BMI) [Ratio] 27.72 kg/m2 Ellen Suppan STAFF ELECTRONIC WARFARE OFFICER.GROUP RESERVATIONS COORDINATOR Work Phone: [facility] 09-12-2024 10:08-0500 Body weight 82.7 kg Ellen Suppan STAFF ELECTRONIC WARFARE OFFICER.GROUP RESERVATIONS COORDINATOR Work Phone: [facility] 09-12-2024 10:08-0500 Diastolic blood pressure 78 mm[Hg] Ellen Suppan STAFF ELECTRONIC WARFARE OFFICER.GROUP RESERVATIONS COORDINATOR Work Phone: [facility] 09-12-2024 10:08-0500 Heart rate 76 /min Ellen Suppan STAFF ELECTRONIC WARFARE OFFICER.GROUP RESERVATIONS COORDINATOR Work Phone: [facility] 09-12-2024 10:08-0500 Respiratory rate 16 /min Ellen Suppan STAFF ELECTRONIC WARFARE OFFICER.GROUP RESERVATIONS COORDINATOR Work Phone: [facility] 09-12-2024 10:08-0500 SaO2% (BldA) [Mass fraction] 85 % Ellen Suppan STAFF ELECTRONIC WARFARE OFFICER.GROUP RESERVATIONS COORDINATOR Work Phone: [facility] 09-12-2024 10:08-0500 Systolic blood pressure 134 mm[Hg] Ellen Suppan STAFF ELECTRONIC WARFARE OFFICER.GROUP RESERVATIONS COORDINATOR Work Phone: [facility] 08-28-2024 13:17-0400 Body mass index (BMI) [Ratio] 28.28 kg/m2 Freeman DUKE-C Work Phone: [facility] 08-28-2024 13:17-0400 Body weight 84.37 kg Freeman DUKE-C Work Phone: [facility] 08-28-2024 13:17-0400 Diastolic blood pressure 88 mm[Hg] Freeman DUKE-C Work Phone: [facility] 08-28-2024 13:17-0400 Heart rate 73 /min Freeman DUKE-C Work Phone: [facility] 08-28-2024 13:17-0400 Respiratory rate 18 /min Freeman Sarabia PA-C Work Phone: [facility] 08-28-2024 13:17-0400 SaO2% (BldA) [Mass fraction] 99 % Freeman Sarabia PA-C Work Phone: [facility] 08-28-2024 13:17-0400 Systolic blood pressure 134 mm[Hg] Freeman Sarabia PA-C Work Phone: [facility] 06-13-2024 11:12-0400 Body mass index (BMI) [Ratio] 28.28 kg/m2 Ellen Suppan STAFF ELECTRONIC WARFARE OFFICER.GROUP RESERVATIONS COORDINATOR Work Phone: [facility] 06-13-2024 11:12-0400 Body weight 84.37 kg Ellen Suppan STAFF ELECTRONIC WARFARE OFFICER.GROUP RESERVATIONS COORDINATOR Work Phone: [facility] 06-13-2024 11:12-0400 Diastolic blood pressure 74 mm[Hg] Ellen Suppan STAFF ELECTRONIC WARFARE OFFICER.GROUP RESERVATIONS COORDINATOR Work Phone: [facility] 06-13-2024 11:12-0400 Heart rate 78 /min Ellen Suppan STAFF ELECTRONIC WARFARE OFFICER.GROUP RESERVATIONS COORDINATOR Work Phone: [facility] 06-13-2024 11:12-0400 Respiratory rate 16 /min Ellen Suppan STAFF ELECTRONIC WARFARE OFFICER.GROUP RESERVATIONS COORDINATOR Work Phone: [facility] 06-13-2024 11:12-0400 SaO2% (BldA) [Mass fraction] 99 % Ellen Suppan STAFF ELECTRONIC WARFARE OFFICER.GROUP RESERVATIONS COORDINATOR Work Phone: [facility] 06-13-2024 11:12-0400 Systolic blood pressure 122 mm[Hg] Ellen Suppan STAFF ELECTRONIC WARFARE OFFICER.GROUP RESERVATIONS COORDINATOR Work Phone: [facility] 05-23-2024 13:43-0400 Body height 172.7 cm Freeman Sarabia PA-C Work Phone: [facility] 05-23-2024 13:43-0400 Body mass index (BMI) [Ratio] 30.11 kg/m2 Freeman Sarabia PA-C Work Phone: [facility] 05-23-2024 13:43-0400 Body temperature 97.3 [degF] Freeman Sarabia PA-C Work Phone: [facility] 05-23-2024 13:43-0400 Body weight 89.81 kg Freeman Sarabia PA-C Work Phone: [facility] 05-23-2024 13:43-0400 Diastolic blood pressure 79 mm[Hg] Freeman Sarabia PA-C Work Phone: [facility] 05-23-2024 13:43-0400 Heart rate 84 /min Freeman Sarabia PA-C Work Phone: [facility] 05-23-2024 13:43-0400 Respiratory rate 20 /min Freeman Sarabia PA-C Work Phone: [facility] 05-23-2024 13:43-0400 SaO2% (BldA) [Mass fraction] 94 % Freeman Sarabia PA-C Work Phone: [facility] 05-23-2024 13:43-0400 Systolic blood pressure 120 mm[Hg] Freeman Sarabia PA-C Work Phone: [facility] 05-10-2024 11:06-0400 Body mass index (BMI) [Ratio] 28.89 kg/m2 Ellen Suppsukhdev STAFF [employer] OFFICER.[employer] RESERVATIONS COORDINATOR Work Phone: [facility] 05-10-2024 11:06-0400 Body weight 86.18 kg Ellen Suppsukhdev STAFF [employer]LECT[employer] OFFICER.GROUP RESERVATIONS COORDINATOR Work Phone: [facility] 05-10-2024 11:06-0400 Diastolic blood pressure 76 mm[Hg] Ellen Suppan STAFF ELECT[employer]IC [employer] OFFICER.GROUP RESERVATIONS COORDINATOR Work Phone: [facility] 05-10-2024 11:06-0400 Heart rate 81 /min Ellen Suppan STAFF [employer] OFFICER.GROUP RESERVATIONS COORDINATOR Work Phone: [facility] 05-10-2024 11:06-0400 SaO2% (BldA) [Mass fraction] 100 % Ellen Suppan STAFF [employer] OFFICER.GROUP RESERVATIONS COORDINATOR Work Phone: [facility] 05-10-2024 11:06-0400 Systolic blood pressure 118 mm[Hg] Ellen Suppan STAFF ELECTRONIC WARFARE OFFICER.GROUP RESERVATIONS COORDINATOR Work Phone: [facility] 03-04-2024 13:38-0400 Body mass index (BMI) [Ratio] 28.07 kg/m2 Yomi Suarez MD Work Phone: [facility] 03-04-2024 13:38-0400 Body weight 83.73 kg Yomi Suarez MD Work Phone: [facility] 03-04-2024 13:38-0400 Diastolic blood pressure 62 mm[Hg] Yomi Suarez MD Work Phone: [facility] 03-04-2024 13:38-0400 Heart rate 68 /min Yomi Suarez MD Work Phone: [facility] 03-04-2024 13:38-0400 Respiratory rate 16 /min Yomi Suarez MD Work Phone: [facility] 03-04-2024 13:38-0400 SaO2% (BldA) [Mass fraction] 98 % Yomi Suarez MD Work Phone: [facility] 03-04-2024 13:38-0400 Systolic blood pressure 100 mm[Hg] Yomi Suarez MD Work Phone: [facility] 02-29-2024 17:38-0400 Body height 172.[address] ANABEL TOLEDO MD [facility] 02-29-2024 17:38-0400 Body temperature 96.98 [degF] DR ANABEL TOLEDO MD [facility] 02-29-2024 17:38-0400 Body weight 84.[address] ANABEL TOLEDO MD [facility] 02-29-2024 17:38-0400 Diastolic Blood Pressure Non-Invasive 84 mm[Hg] DR ANABEL TOLEDO MD [facility] 02-29-2024 17:38-0400 Heart rate 90 /min DR ANABEL TOLEDO MD [facility] 02-29-2024 17:38-0400 Respiratory rate 18 /min DR ANABEL TOLEDO MD [facility] 02-29-2024 17:38-0400 Systolic Blood Pressure Non-Invasive 130 mm[Hg] DR ANABEL TOLEDO MD [facility] 02-07-2024 13:10-0400 Body height 172.7 cm Min Velazco MD Work Phone: [facility] 02-07-2024 13:10-0400 Body temperature 97.59 [degF] Min Velazco MD Work Phone: [facility] 02-07-2024 13:10-040 Body weight 83.01 kg Min Velazco MD Work Phone: [facility] 02-07-2024 13:10-0400 Diastolic blood pressure 84 mm[Hg] Min Velazco MD Work Phone: [facility] 02-07-2024 13:10-0400 Heart rate 74 /min Min Velazco MD Work Phone: [facility] 02-07-2024 13:10-0400 Respiratory rate 20 /min Min Velazco MD Work Phone: [facility] 02-07-2024 13:10-0400 SaO2% (BldA) [Mass fraction] 100 % Min Velazco MD Work Phone: [facility] 02-07-2024 13:10-0400 Systolic blood pressure 128 mm[Hg] Min Velazco MD Work Phone: [facility] 01-29-2024 14:28-040 Body height 172.7 cm Torres Yao MD Work Phone: [facility] 01-29-2024 [id number] Body weight 83.01 kg Torres Yao MD Work Phone: [facility] 01-29-2024 14:28-0400 Diastolic blood pressure 68 mm[Hg] Torres Yao MD Work Phone: [facility] 01-29-2024 14:28-0400 Heart rate 85 /min Torres Yao MD Work Phone: [facility] 01-29-2024 14:28-0400 Systolic blood pressure 99 mm[Hg] Torres Yao MD Work Phone: [facility] 01-04-2024 14:53-0500 Diastolic blood pressure 76 mm[Hg] Min Velazco MD Work Phone: [facility] 01-04-2024 14:53-0500 Heart rate 85 /min Min Velazco MD Work Phone: [facility] 01-04-2024 14:53-0500 Respiratory rate 18 /min Min Velazco MD Work Phone: [facility] 01-04-2024 14:53-0500 Systolic blood pressure 114 mm[Hg] Min Velazco MD Work Phone: [facility] 01-04-2024 14:41-0500 Body temperature 96.49 [degF] Min Velazco MD Work Phone: [facility] 12-22-2023 13:04-0500 Body temperature 97.81 [degF] Freeman Sarabia PA-C Work Phone: [facility] 12-22-2023 13:04-0500 Diastolic blood pressure 77 mm[Hg] Freeman Sarabia PA-C Work Phone: [facility] 12-22-2023 13:04-0500 Heart rate 70 /min Freeman Sarabia PA-C Work Phone: [facility] 12-22-2023 13:04-0500 Respiratory rate 18 /min Freeman DUKE-C Work Phone: [facility] 12-22-2023 13:04-0500 SaO2% (BldA) [Mass fraction] 100 % Freeman Sarabia PA-C Work Phone: [facility] 12-22-2023 13:04-0500 Systolic blood pressure 121 mm[Hg] Freeman Sarabia PA-C Work Phone: [facility] 10-13-2023 14:07-0500 Body weight 84.37 kg Torres Yao MD Work Phone: [facility] 10-13-2023 14:07-0500 Diastolic blood pressure 72 mm[Hg] Torres Yao MD Work Phone: [facility] 10-13-2023 14:07-0500 Heart rate 71 /min Torres Yao MD Work Phone: [facility] 10-13-2023 14:07-0500 SaO2% (BldA) [Mass fraction] 100 % Torres Yao MD Work Phone: [facility] 10-13-2023 14:07-0500 Systolic blood pressure 102 mm[Hg] Torres Yao MD Work Phone: [facility] 09-28-2023 14:06-0500 Body height 172.7 cm Freeman Sarabia PA-C Work Phone: [facility] 09-28-2023 14:06-0500 Body temperature 97 [degF] Freeamn Sarabia PA-C Work Phone: [facility] 09-28-2023 14:06-0500 Body weight 85.28 kg Freeman Sarabia PA-C Work Phone: [facility] 09-28-2023 14:06-0500 Diastolic blood pressure 75 mm[Hg] Freeman Sarabia PA-C Work Phone: [facility] 09-28-2023 14:06-0500 Heart rate 71 /min Freeman Sarabia PA-C Work Phone: [facility] 09-28-2023 14:06-0500 Respiratory rate 18 /min Freeman Sarabia PA-C Work Phone: [facility] 09-28-2023 14:06-0500 SaO2% (BldA) [Mass fraction] 100 % Freeman Sarabia PA-C Work Phone: [facility] 09-28-2023 14:06-0500 Systolic blood pressure 115 mm[Hg] Freeman DUKE-C Work Phone: [facility] 08-29-2023 15:13-0400 Diastolic blood pressure 74 mm[Hg] Min Velazco MD Work Phone: [facility] 08-29-2023 15:13-0400 Heart rate 62 /min Min Velazco MD Work Phone: [facility] 08-29-2023 15:13-0400 Respiratory rate 18 /min Min Velazco MD Work Phone: [facility] 08-29-2023 15:13-0400 Systolic blood pressure 104 mm[Hg] Min Velazco MD Work Phone: [facility] 08-29-2023 14:53-0400 Body temperature 96.8 [degF] Min Velazco MD Work Phone: [facility] 08-25-2023 09:07-0400 Body temperature 97.2 [degF] Freeman DUKE-Delroy Work Phone: [facility] 08-25-2023 09:07-0400 Diastolic blood pressure 72 mm[Hg] Freeman DUKE-C Work Phone: [facility] 08-25-2023 09:07-0400 Heart rate 68 /min Freeman IBARRAC Work Phone: [facility] 08-25-2023 09:07-0400 Respiratory rate 18 /min Freeman DUKE-C Work Phone: [facility] 08-25-2023 09:07-0400 SaO2% (BldA) [Mass fraction] 100 % Freeman IBARRAC Work Phone: [facility] 08-25-2023 09:07-0400 Systolic blood pressure 109 mm[Hg] Freeman Sarabia PA-C Work Phone: [facility] 07-13-2023 13:33-0400 Body temperature 97.3 [degF] Freeman Sarabia PA-C Work Phone: [facility] 07-13-2023 13:33-0400 Diastolic blood pressure 76 mm[Hg] Freeman Sarabia PA-C Work Phone: [facility] 07-13-2023 13:33-0400 Heart rate 64 /min Freeman Sarabia PA-C Work Phone: [facility] 07-13-2023 13:33-0400 Respiratory rate 18 /min Freeman Sarabia PA-C Work Phone: [facility] 07-13-2023 13:33-0400 SaO2% (BldA) [Mass fraction] 100 % Freeman Sarabia PA-C Work Phone: [facility] 07-13-2023 13:33-0400 Systolic blood pressure 119 mm[Hg] Freeman DUKE-C Work Phone: [facility] 06-01-2023 16:28-0400 Diastolic blood pressure 68 mm[Hg] Min Velazco MD Work Phone: [facility] 06-01-2023 16:28-0400 Heart rate 60 /min Min Velazco MD Work Phone: [facility] 06-01-2023 16:28-0400 Respiratory rate 18 /min Min Velazco MD Work Phone: [facility] 06-01-2023 16:28-0400 Systolic blood pressure 114 mm[Hg] Min Velazco MD Work Phone: [facility] 06-01-2023 16:19-0400 Body temperature 96.6 [degF] Min Velazco MD Work Phone: [facility] 05-26-2023 13:28-0400 Body temperature 97.59 [degF] Freeman DUKE-C Work Phone: [facility] 05-26-2023 13:28-0400 Diastolic blood pressure 85 mm[Hg] Freeman Sarabia PA-C Work Phone: [facility] 05-26-2023 13:28-0400 Heart rate 74 /min Freeman Sarabia PA-C Work Phone: [facility] 05-26-2023 13:28-0400 Respiratory rate 18 /min Freeman Sarabia PA-C Work Phone: [facility] 05-26-2023 13:28-0400 SaO2% (BldA) [Mass fraction] 100 % Freeman Sarabia PA-C Work Phone: [facility] 05-26-2023 13:28-0400 Systolic blood pressure 136 mm[Hg] Freeman Sarabia PA-C Work Phone: [facility] 03-03-2023 09:32-0400 Body temperature 97.59 [degF] Freeman Sarabia PA-C Work Phone: [facility] 03-03-2023 09:32-0400 Diastolic blood pressure 79 mm[Hg] Freeman Sarabia PA-C Work Phone: [facility] 03-03-2023 09:32-0400 Heart rate 83 /min Freeman Sarabia PA-C Work Phone: [facility] 03-03-2023 09:32-0400 Respiratory rate 18 /min Freeman Sarabia PA-C Work Phone: [facility] 03-03-2023 09:32-0400 SaO2% (BldA) [Mass fraction] 100 % Freeman Sarabia PA-C Work Phone: [facility] 03-03-2023 09:32-0400 Systolic blood pressure 123 mm[Hg] Freeman Sarabia PA-C Work Phone: [facility] 02-02-2023 10:35-0400 Diastolic blood pressure 66 mm[Hg] Min Velazco MD Work Phone: [facility] 02-02-2023 10:35-0400 Heart rate 66 /min Min Velazco MD Work Phone: [facility] 02-02-2023 10:35-0400 Respiratory rate 18 /min Min Velazco MD Work Phone: [facility] 02-02-2023 10:35-0400 Systolic blood pressure 107 mm[Hg] Min Velazco MD Work Phone: [facility] 02-02-2023 10:29-0400 Body temperature 97.9 [degF] Min Velazco MD Work Phone: [facility] 01-20-2023 09:28-0400 Body temperature 97 [degF] Freeman Sarabia PA-C Work Phone: [facility] 01-20-2023 09:28-0400 Diastolic blood pressure 66 mm[Hg] Freeman Sarabia PA-C Work Phone: [facility] 01-20-2023 09:28-0400 Heart rate 60 /min Freeman Sarabia PA-C Work Phone: [facility] 01-20-2023 09:28-0400 Respiratory rate 18 /min Freeman Sarabia PA-C Work Phone: [facility] 01-20-2023 09:28-0400 SaO2% (BldA) [Mass fraction] 100 % Freeman Sarabia PA-C Work Phone: [facility] 01-20-2023 09:28-0400 Systolic blood pressure 116 mm[Hg] Freeman Sarabia PA-C Work Phone: [facility] 11-30-2022 13:32-0500 Body height 172.7 cm Min Velazco MD Work Phone: [facility] 11-30-2022 13:32-0500 Body temperature 97.11 [degF] Min Velazco MD Work Phone: [facility] 11-30-2022 13:32-0500 Body weight 88.91 kg Min Velazco MD Work Phone: [facility] 11-30-2022 13:32-0500 Diastolic blood pressure 67 mm[Hg] Min Velazco MD Work Phone: [facility] 11-30-2022 13:32-0500 Heart rate 67 /min Min Velazco MD Work Phone: [facility] 11-30-2022 13:32-0500 Respiratory rate 20 /min Min Velazco MD Work Phone: [facility] 11-30-2022 13:32-0500 SaO2% (BldA) [Mass fraction] 100 % Min Velazco MD Work Phone: [facility] 11-30-2022 13:32-0500 Systolic blood pressure 111 mm[Hg] Min Velazco MD Work Phone: [facility] 10-13-2022 13:32-0500 Body height 172.7 cm Freeman Sarabia PA-C Work Phone: [facility] 10-13-2022 13:32-0500 Body temperature 97.59 [degF] Freeman Sarabia PA-C Work Phone: [facility] 10-13-2022 13:32-0500 Body weight 88.91 kg Fremean Sarabia PA-C Work Phone: [facility] 10-13-2022 13:32-0500 Diastolic blood pressure 67 mm[Hg] Freeman Sarabia PA-C Work Phone: [facility] 10-13-2022 13:32-0500 Heart rate 64 /min Freeman Sarabia PA-C Work Phone: [facility] 10-13-2022 13:32-0500 Respiratory rate 18 /min Freeman Sarabia PA-C Work Phone: [facility] 10-13-2022 13:32-0500 SaO2% (BldA) [Mass fraction] 100 % Freeman Sarabia PA-C Work Phone: [facility] 10-13-2022 13:32-0500 Systolic blood pressure 115 mm[Hg] Freeman Sarabia PA-C Work Phone: [facility] 09-15-2022 11:03-0500 Diastolic blood pressure 66 mm[Hg] Min Velazco MD Work Phone: [facility] 09-15-2022 11:03-0500 Heart rate 62 /min Min Velazco MD Work Phone: [facility] 09-15-2022 11:03-0500 Respiratory rate 20 /min Min Velazco MD Work Phone: [facility] 09-15-2022 11:03-0500 Systolic blood pressure 111 mm[Hg] Min Velazco MD Work Phone: [facility] 09-15-2022 10:53-0500 Body temperature 97 [degF] Min Velazco MD Work Phone: [facility] 09-01-2022 14:06-0400 Body height 172.7 cm Freeman Sarabia PA-C Work Phone: [facility] 09-01-2022 14:06-0400 Body temperature 97.2 [degF] Freeman Sarabia PA-C Work Phone: [facility] 09-01-2022 14:06-0400 Body weight 89.81 kg Freeman Sarabia PA-C Work Phone: [facility] 09-01-2022 14:06-0400 Diastolic blood pressure 73 mm[Hg] Freeman Sarabia PA-C Work Phone: [facility] 09-01-2022 14:06-0400 Heart rate 73 /min Freeman Sarabia PA-C Work Phone: [facility] 09-01-2022 14:06-0400 Respiratory rate 20 /min Freeman Sarabia PA-C Work Phone: [facility] 09-01-2022 14:06-0400 SaO2% (BldA) [Mass fraction] 100 % Freeman Sarabia PA-C Work Phone: [facility] 09-01-2022 14:06-0400 Systolic blood pressure 119 mm[Hg] Freeman Sarabia PA-C Work Phone: [facility] 07-20-2022 14:19-0400 Body height 172.7 cm Freeman Sarabia PA-C Work Phone: [facility] 07-20-2022 14:19-0400 Body temperature 96.91 [degF] Freeman Sarabia PA-C Work Phone: [facility] 07-20-2022 14:19-0400 Body weight 89.81 kg Freeman Sarabia PA-C Work Phone: [facility] 07-20-2022 14:19-0400 Diastolic blood pressure 64 mm[Hg] Freeman Sarabia PA-C Work Phone: [facility] 07-20-2022 14:19-0400 Heart rate 63 /min Freeman Sarabia PA-C Work Phone: [facility] 07-20-2022 14:19-0400 Respiratory rate 20 /min Freeman Sarabia PA-C Work Phone: [facility] 07-20-2022 14:19-0400 SaO2% (BldA) [Mass fraction] 99 % Freeman Sarabia PA-C Work Phone: [facility] 07-20-2022 14:19-0400 Systolic blood pressure 103 mm[Hg] Freeman Sarabia PA-C Work Phone: [facility] 06-09-2022 13:38-0400 Body height 172.7 cm Freeman Sarabia PA-C Work Phone: [facility] 06-09-2022 13:38-0400 Body temperature 97.2 [degF] Freeman Sarabia PA-C Work Phone: [facility] 06-09-2022 13:38-0400 Body weight 89.81 kg Freeman Sarabia PA-C Work Phone: [facility] 06-09-2022 13:38-0400 Diastolic blood pressure 67 mm[Hg] Freeman Sarabia PA-C Work Phone: [facility] 06-09-2022 13:38-0400 Heart rate 61 /min Freeman Sarabia PA-C Work Phone: [facility] 06-09-2022 13:38-0400 Respiratory rate 20 /min Freeman Sarabia PA-C Work Phone: [facility] 06-09-2022 13:38-0400 SaO2% (BldA) [Mass fraction] 98 % Freeman Sarabia PA-C Work Phone: [facility] 06-09-2022 13:38-0400 Systolic blood pressure 105 mm[Hg] Freeman Sarabia PA-C Work Phone: [facility] 03-07-2022 13:46-0400 Body weight 89.81 kg Torres Yao MD Work Phone: [facility] 03-07-2022 13:46-0400 Diastolic blood pressure 70 mm[Hg] Torres Yao MD Work Phone: [facility] 03-07-2022 13:46-0400 Heart rate 76 /min Torres Yao MD Work Phone: [facility] 03-07-2022 13:46-0400 Systolic blood pressure 108 mm[Hg] Torres Yao MD Work Phone: [facility] 01-08-2022 19:56-0500 Body temperature 98.42 [degF] KANE SHANIQUECESAR THOMSON [facility] 01-08-2022 19:56-0500 Diastolic blood pressure 79 mm[Hg] KANE SHANIQUEBARRETTT DO [facility] 01-08-2022 19:56-0500 Heart rate 74 /min KANE SHANIQUEBARRETTT DO [facility] 01-08-2022 19:56-0500 Mean blood pressure 96 mm[Hg] KANE ARCE DO [facility] 01-08-2022 19:56-0500 Respiratory rate 19 /min KANE ARCE DO [facility] 01-08-2022 19:56-0500 Systolic blood pressure 130 mm[Hg] KANE ARCE DO [facility] 08-13-2021 14:37-0400 Body temperature 98.42 [degF] KERRY NUNES DO [facility] 08-13-2021 14:37-0400 Diastolic blood pressure 76 mm[Hg] KERRY NUNES DO [facility] 08-13-2021 14:37-0400 Heart rate 73 /min KERRY NUNES DO [facility] 08-13-2021 14:37-0400 Mean blood pressure 92 mm[Hg] KERRY NUNES DO [facility] 08-13-2021 14:37-0400 Respiratory rate 18 /min KERRY NUNES DO [facility] 08-13-2021 14:37-0400 Systolic blood pressure 125 mm[Hg] KERRY NUNES DO [facility] Encounters Encounter Date Encounter Type Care Provider Facility Start: 06-11-2025 ambulatory [facility] Facility:[facility] Start: 06-09-2025 Encounter for other preprocedural examination Mahad Saleh [facility] Start: 05-22-2025 End: 05-22-[address] Mahad Saleh MD -[facility] Work Phone: Start: 05-22-2025 End: 05-22-[address] Torres Yao MD Work Phone: -[facility] Start: 05-20-2025 End: 05-20-[address] Torres Yao MD Work Phone: [facility] Start: 05-20-2025 End: 05-20-[address] Mahad Saleh MD [facility] Work Phone: Start: 05-20-2025 End: 05-20-2025 ambulatory [facility] Facility:[facility] Start: 05-16-2025 End: 05-16-2025 Patient encounter procedure Torres Yao MD Work Phone: [facility] Comment on above: Chronic insomnia (Pr imary Dx); Generalized anxiety disorder; Bipolar I disorder (HCC); Panic disorder Start: 05-16-2025 End: 05-16-2025 ambulatory [facility] Facility:[facility] Start: 05-15-2025 End: 05-15-2025 Patient encounter procedure Freeman Sarabia PA-C Work Phone: [facility] Comment on above: Fibromyalgia (Primar y Dx); Bilateral shoulder region arthritis; Subacromial bursitis of both shoulders; Primary osteoarthritis of both knees; Sacroiliitis; Neuropathy involving both lower extremities; Generalized anxiety disorder Start: 05-15-2025 End: 05-15-2025 ambulatory FREEMAN SARABIA Facility:[id number] Start: 05-05-2025 End: 05-05-2025 Subsequent hospital visit by physician [facility] Comment on above: Urinary retention [R 33.9] Start: 05-05-2025 End: 05-05-2025 Follow-up encounter Ellen Rene APRN.GROUP RESERVATIONS COORDINATOR Work Phone: [facility] Start: 05-05-2025 End: 05-05-2025 Office outpatient visit 15 minutes Ellen Rene APRN.GROUP RESERVATIONS COORDINATOR Work Phone: [facility] [place] Comment on above: Chronic pain syndrom e (Primary Dx); Fibromyalgia; Essential Hypertension, Benign; Urinary retention Start: 05-05-2025 End: 05-05-2025 ambulatory Torres Yao MD Work Phone: [facility] [place] Comment on above: Urinary Symptoms Start: 04-21-2025 End: 04-21-[address] Manuel Leary MD -[facility] Start: 04-21-2025 End: 04-21-[address] Torres Yao MD Work Phone: [facility] Work Phone: Start: 04-15-2025 End: 04-15-2025 Telephone encounter Freeman Sarabia PA-C Work Phone: [facility] Start: 03-31-2025 End: 05-31-2025 Follow-up encounter Torres Yao MD Work Phone: [facility] [place] Start: 03-17-2025 End: 05-17-2025 Follow-up encounter Torres Yao MD Work Phone: [facility] [place] Start: 03-14-2025 ambulatory TORRES YAO Facility :[facility] Start: 03-14-2025 End: 03-14-2025 Subsequent hospital visit by physician [facility] Comment on above: Encounter for screen ing mammogram for breast cancer [Z12.31] Start: 03-14-2025 End: 03-14-2025 Patient encounter procedure Torres Yao MD Work Phone: [facility] Comment on above: Fibromyalgia (Primar y Dx); Bipolar I disorder (HCC); 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 intermediates (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) use of 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 (HCC); Neuropathy involving both lower extremities; Essential Hypertension, Benign; History of diabetes mellitus; Generalized anxiety disorder; Screening for colon cancer; Disorder of bone, unspecified Start: 03-14-2025 End: 03-14-2025 ambulatory TORRES YAO Facility:[facility] Start: 02-18-2025 End: 02-18-2025 ambulatory Freeman Sarabia PA-C Work Phone: [facility] Start: 02-18-2025 End: 02-18-2025 Patient encounter procedure Freeman Sarabia PA-C Work Phone: [facility] Comment on above: Orthopedic referral Start: 02-14-2025 End: 02-14-2025 Patient encounter procedure Freeman Sarabia PA-C Work Phone: [facility] Comment on above: Fibromyalgia (Primar y Dx); Primary osteoarthritis of both knees; Subacromial bursitis of both shoulders; Bilateral shoulder region arthritis; Sacroiliitis; Neuropathy involving both lower extremities; Generalized anxiety disorder Start: 02-14-2025 End: 02-14-2025 ambulatory FREEMAN SARABIA Facility:[id number] Start: 02-04-2025 End: 02-04-2025 ambulatory TORRES YAO Facility:[facility] Start: 01-17-2025 End: 01-17-2025 ambulatory Joanna Rey PT [facility] Comment on above: Subacromial bursitis of both shoulders (Primary Dx) Start: 01-14-2025 End: 02-14-2025 ambulatory Torres Yao MD Work Phone: [facility] Start: 01-09-2025 End: 01-09-2025 ambulatory Rachel Whiteside TOOL STORAGE ATTENDANT Work Phone: [facility] Comment on above: Subacromial bursitis of both shoulders (Primary Dx); Bilateral shoulder region arthritis Start: 01-06-2025 End: 01-06-2025 ambulatory Joanna Rey PT [facility] Comment on above: Subacromial bursitis of both shoulders (Primary Dx) Start: 01-03-2025 End: 01-03-2025 ambulatory Rachel Kaschiragba TOOL STORAGE ATTENDANT Work Phone: [facility] Comment on above: Subacromial bursitis of both shoulders (Primary Dx); Bilateral shoulder region arthritis Start: 12-31-2024 End: 12-31-2024 ambulatory Rachel Kaschiragba TOOL STORAGE ATTENDANT Work Phone: [facility] Comment on above: Subacromial bursitis of both shoulders (Primary Dx); Bilateral shoulder region arthritis Start: 12-27-2024 End: 12-27-2024 Refill Freeman Sarabia PA-C Work Phone: Pain Management Comment on above: Refill Request Start: 12-24-2024 End: 12-24-2024 ambulatory Rachel Whiteside TOOL STORAGE ATTENDANT Work Phone: [facility] Comment on above: Subacromial bursitis of both shoulders (Primary Dx); Bilateral shoulder region arthritis Start: 12-11-2024 End: 12-11-2024 ambulatory Rachel Whiteside TOOL STORAGE ATTENDANT Work Phone: [facility] Comment on above: Subacromial bursitis of both shoulders (Primary Dx); Bilateral shoulder region arthritis Start: 12-09-2024 End: 12-09-2024 ambulatory Rachel Whiteside TOOL STORAGE ATTENDANT Work Phone: [facility] Comment on above: Subacromial bursitis of both shoulders (Primary Dx); Bilateral shoulder region arthritis Start: 11-25-2024 End: 11-25-2024 ambulatory Joanna Lemon PT [facility] Comment on above: Subacromial bursitis of both shoulders (Primary Dx); Bilateral shoulder region arthritis Start: 11-22-2024 End: 11-22-2024 Patient encounter procedure Freeman Sarabia PA-C Work Phone: [facility] Comment on above: Fibromyalgia (Primar y Dx); Primary osteoarthritis of both knees; Subacromial bursitis of both shoulders; Sacroiliitis (HCC); Neuropathy involving both lower extremities; Generalized anxiety disorder; Bilateral shoulder region arthritis Start: 11-22-2024 End: 11-22-2024 ambulatory FREEMAN SARABIA Facility:[id number] Start: 09-24-2024 End: 09-24-2024 Telephone encounter Torres Yao MD Work Phone: [facility] Comment on above: Results Start: 09-23-2024 End: 09-23-2024 ambulatory TORRES YAO Facility:[facility] Start: 09-17-[address] [id number] Start: 09-17-2024 End: 09-17-2024 Subsequent hospital visit by physician Isaac Cannon MD Work Phone: [facility] Comment on above: Subacromial bursitis of both shoulders [M75.51, M75.52] Start: 09-12-2024 End: 09-12-2024 ambulatory TORRES YAO Facility:[facility] Start: 09-12-2024 End: 09-12-2024 Office outpatient visit 25 minutes Ellen Rene APRN.GROUP RESERVATIONS COORDINATOR Work Phone: [facility] Comment on above: Chronic pain syndrom e (Primary Dx); Screening for depression; History of diabetes mellitus; Lumbar strain, subsequent encounter; Fibromyalgia; Essential Hypertension, Benign; Sleep apnea, unspecified type; Chronic insomnia; Encounter for lipid screening for cardiovascular disease Start: 08-28-2024 End: 08-28-2024 Patient encounter procedure Freeman Sarabia PA-C Work Phone: Pain Management Comment on above: Subacromial bursitis of both shoulders (Primary Dx); Fibromyalgia; Sacroiliitis (HCC); Primary osteoarthritis of both knees; Neuropathy involving both lower extremities; Generalized anxiety disorder Start: 08-28-2024 End: 08-29-2024 ambulatory FREEMAN SARABIA Facility:[id number] Start: 08-07-2024 End: 08-07-2024 ambulatory Salvador Hart PT Work Phone: [facility] Comment on above: Acute midline low ba ck pain without sciatica (Primary Dx) Start: 07-24-2024 End: 07-24-2024 ambulatory Salvador Hart PT Work Phone: [facility] Comment on above: Acute midline low ba ck pain without sciatica (Primary Dx) Start: 07-16-2024 End: 07-16-2024 Refill Freeman Sarabia PA-C Work Phone: Pain Management Comment on above: Refill Request Start: 07-10-2024 End: 07-10-2024 ambulatory Salvador Hart PT Work Phone: [facility] Comment on above: Acute midline low ba ck pain without sciatica (Primary Dx) Start: 07-04-2024 End: 07-04-2024 ambulatory Salvador Hart PT Work Phone: [facility] Comment on above: Acute midline low ba ck pain without sciatica (Primary Dx) Start: 06-27-2024 End: 06-27-2024 ambulatory Rachel Whiteside TOOL STORAGE ATTENDANT Work Phone: [facility] Comment on above: Acute midline low ba ck pain without sciatica (Primary Dx) Start: 06-21-2024 End: 06-21-2024 ambulatory [facility] Facility:[facility] Start: 06-21-2024 End: 06-21-2024 Subsequent hospital visit by physician [facility] [place] Work Phone: Radiology Comment on above: Coccyx pain [M53.3] Start: 06-21-2024 End: 06-21-2024 Telephone encounter Torres Yao MD Work Phone: [facility] Comment on above: Patient concern Start: 06-13-2024 End: 06-13-2024 ambulatory Salvador Hart PT Work Phone: [facility] Comment on above: Acute midline low ba ck pain without sciatica (Primary Dx) Start: 06-13-2024 End: 06-13-2024 ambulatory [facility] Facility:[facility] Start: 06-13-2024 End: 06-13-2024 Office outpatient visit 15 minutes Ellen Rene APRN.GROUP RESERVATIONS COORDINATOR Work Phone: [facility] Comment on above: Chronic pain syndrom e (Primary Dx); Fibromyalgia; Essential Hypertension, Benign; Lumbar strain, subsequent encounter Start: 06-03-2024 End: 06-03-2024 ambulatory Salvador Hart PT Work Phone: [facility] Comment on above: Acute midline low ba ck pain without sciatica (Primary Dx) Start: 05-23-2024 End: 05-23-2024 Patient encounter procedure Freeman Sarabia PA-C Work Phone: Pain Management Comment on above: Fibromyalgia (Primar y Dx); Sacroiliitis (HCC); Subacromial bursitis of both shoulders; Primary osteoarthritis of both knees; Generalized anxiety disorder; Neuropathy involving both lower extremities Start: 05-23-2024 End: 05-23-2024 ambulatory FREEMAN SARABIA Facility:[id number] Start: 05-13-2024 Telephone encounter Freeman Sarabia PA-C Work Phone: Pain Management Comment on above: Patient Update (Incr eased pain) Start: 05-10-2024 Telephone encounter Ellen Rene APRN.GROUP RESERVATIONS COORDINATOR Work Phone: [facility] [place] Comment on above: Results Start: 05-10-2024 End: 05-10-2024 Subsequent hospital visit by physician Xr [facility] [place] Work Phone: Radiology Comment on above: Acute right-sided lo w back pain without sciatica [M54.50] Start: 05-10-2024 End: 05-10-2024 Office outpatient visit 15 minutes Ellen Rene STAFF ELECTRONIC WARFARE OFFICER.GROUP RESERVATIONS COORDINATOR Work Phone: [facility] [place] Comment on above: Acute right-sided lo w back pain without sciatica (Primary Dx) Start: 03-27-2024 Refill Freeman nava PA-C Work Phone: Pain Management Comment on above: Refill Request Start: 03-21-2024 End: 03-21-2024 [facility] Freeman Sarabia PA-C Work Phone: Pain Management Comment on above: Fibromyalgia (Primar y Dx); Primary osteoarthritis of both knees; Sacroiliitis (HCC); Subacromial bursitis of both shoulders; Generalized anxiety disorder; Neuropathy involving both lower extremities Start: 03-11-2024 Refill Freeman nava PA-C Work Phone: Pain Management Comment on above: Refill Request Start: 03-04-2024 End: 03-04-2024 Patient encounter procedure Yomi Suarez MD Work Phone: Family [facility] Comment on above: Chronic insomnia (Pr imary Dx); Generalized anxiety disorder; Bipolar I disorder (HCC); Other mcfp (current) drug therapy; History of suicide attempt Start: 02-29-2024 End: 02-29-2024 Emergency department patient visit DR ANABEL TOLEDO MD Facility:B Start: 02-29-2024 End: 02-29-2024 Emergency department patient visit DR ANABEL TOLEDO MD [facility] Start: 02-08-2024 Refill Freeman nava PA-C Work Phone: Pain Management Comment on above: Refill Request Start: 02-07-2024 End: 02-07-2024 Office outpatient visit 25 minutes Min Velazco MD Work Phone: Pain Management Comment on above: Chronic pain syndrom e (Primary Dx); Fibromyalgia; Primary osteoarthritis of both knees; Sacroiliitis (HCC); Subacromial bursitis of both shoulders; Generalized anxiety disorder; Neuropathy involving both lower extremities Start: 01-29-2024 End: 01-29-2024 Subsequent hospital visit by physician Francisco [facility] [place] Work Phone: Radiology Comment on above: Rectal bleeding [K62 .5] Start: 01-29-2024 End: 01-29-2024 Patient encounter procedure Torres Yao MD Work Phone: [facility] Comment on above: Rectal bleeding (Pat nima Dx); Chronic constipation; Abdominal discomfort Start: 01-15-2024 Refill Freeman nava PA-C Work Phone: Pain Management Comment on above: Refill Request Start: 01-04-2024 End: 01-04-2024 Subsequent hospital visit by physician Min Velazco MD Work Phone: [facility] Comment on above: Subacromial bursitis of both shoulders [M75.51, M75.52] Start: 12-22-2023 End: 12-22-2023 Patient encounter procedure Freeman Sarabia PA-C Work Phone: Pain Management Comment on above: Fibromyalgia (Primar y Dx); Primary osteoarthritis of both knees; Sacroiliitis (HCC); Subacromial bursitis of both shoulders; Generalized anxiety disorder; Neuropathy involving both lower extremities Start: 12-15-2023 Refill Freeman Sarabia Pain [facility] Comment on above: Refill Request Start: 12-12-2023 Documentation procedure Mammog adarsh Coordinator [facility] Start: 12-12-2023 Letter encounter Mammography Coordinator [facility] Department Start: 12-11-2023 End: 12-11-2023 Subsequent hospital visit by physician Screen Mammo [facility] Comment on above: Encounter for screen ing mammogram for malignant neoplasm of breast [Z12.31] Start: 12-05-2023 End: 12-06-2023 ambulatory NELDA LOWE Facility:[facility] Start: 12-05-2023 End: 12-05-2023 Patient encounter procedure NELDA LOWE MD [facility] Start: 10-13-2023 End: 10-13-2023 Patient encounter procedure Torres Yao MD Work Phone: [facility] Comment on above: Fibromyalgia (Primar y Dx); Essential hypertension, benign; Sleep apnea, unspecified type; Generalized anxiety disorder; Other polyneuropathy; Bipolar I disorder (HCC); Migraine without aura and without status migrainosus, not intractable; Chronic pain syndrome; History of diabetes mellitus; Fatigue, unspecified type; Encounter for screening mammogram for malignant neoplasm of breast Start: 10-09-2023 Refill Freeman nava PA-C Work Phone: Pain Management Comment on above: Refill Request Start: 09-28-2023 End: 09-28-2023 Patient encounter procedure Freeman Sarabia PA-C Work Phone: Pain Management Comment on above: Fibromyalgia (Primar y Dx); Sacroiliitis (HCC); Primary osteoarthritis of both knees; Subacromial bursitis of both shoulders; Generalized anxiety disorder; Chronic pain of both shoulders; Neuropathy involving both lower extremities; Other mcfp (current) drug therapy Start: 09-25-2023 Telephone encounter Min Velazco MD Work Phone: Pain Management Comment on above: [place] not covered Start: 09-18-2023 Refill Freeman nava PA-C Work Phone: Pain Management Comment on above: Refill Request Start: 08-29-2023 End: 08-29-2023 Subsequent hospital visit by physician Min Velazco MD Work Phone: [facility] Comment on above: Subacromial bursitis of both shoulders [M75.51, M75.52] Start: 08-25-2023 End: 08-25-2023 Subsequent hospital visit by physician Francisco Paige Work Phone: [facility] Comment on above: Chronic pain of both shoulders [M25.511, G89.29, M25.512] Start: 08-25-2023 End: 08-25-2023 Patient encounter procedure Freeman Sarabia PA-C Work Phone: Pain Management Comment on above: Fibromyalgia (Primar y Dx); Primary osteoarthritis of both knees; Sacroiliitis (HCC); Generalized anxiety disorder; Subacromial bursitis of both shoulders; Chronic pain of both shoulders; Neuropathy involving both lower extremities Start: 08-21-2023 Refill Freeman nava PA-C Work Phone: Pain Management Comment on above: Refill Request Start: 07-20-2023 Refill Freeman nava PA-C Work Phone: Pain Management Comment on above: Refill Request Start: 07-19-2023 End: 07-20-2023 ambulatory MATTIE BAEZ PA-C Facility:[facility] Start: 07-13-2023 End: 07-13-2023 Patient encounter procedure Freeman Sarabia PA-C Work Phone: Pain Management Comment on above: Fibromyalgia (Primar y Dx); Primary osteoarthritis of both knees; Sacroiliitis (HCC); Generalized anxiety disorder; Subacromial bursitis of both shoulders Start: 06-26-2023 Refill Freeman nava PA-C Work Phone: Pain Management Comment on above: Refill Request Start: 06-20-2023 Refill Min Torres MD Work Phone: Pain Management Comment on above: Refill Request Start: 06-01-2023 End: 06-01-2023 Subsequent hospital visit by physician Min Velazco MD Work Phone: [facility] Comment on above: Bursitis of left korey ulder [M75.52] Start: 05-30-2023 Telephone encounter Freeman Sarabia PA-C Work Phone: Pain Management Comment on above: PA of pregabalin / r equest for shoulder inj Start: 05-26-2023 End: 05-26-2023 Patient encounter procedure Freeman Sarabia PA-C Work Phone: Pain Management Comment on above: Fibromyalgia (Primar y Dx); Primary osteoarthritis of both knees; Sacroiliitis (HCC); Generalized anxiety disorder; Subacromial bursitis of both shoulders Start: 03-03-2023 End: 03-03-2023 Patient encounter procedure Freeman Sarabia PA-C Work Phone: Pain Management Comment on above: Primary osteoarthrit is of both knees (Primary Dx); Fibromyalgia; Sacroiliitis (HCC); Generalized anxiety disorder; Subacromial bursitis of both shoulders; Other mcfp (current) drug therapy Start: 02-06-2023 Refill Freeman nava PA-C Work Phone: Pain Management Comment on above: Refill Request Start: 02-02-2023 End: 02-02-2023 Subsequent hospital visit by physician Min Velazco MD Work Phone: [facility] Comment on above: Subacromial bursitis of both shoulders [M75.51, M75.52] Start: 01-20-2023 End: 01-20-2023 Patient encounter procedure Freeman Sarabia PA-C Work Phone: Pain Management Comment on above: Fibromyalgia (Primar y Dx); Primary osteoarthritis of both knees; Sacroiliitis (HCC); Generalized anxiety disorder; Subacromial bursitis of both shoulders Start: 12-27-2022 Refill Freeman nava PA-C Work Phone: Pain Management Comment on above: Refill Request Start: 12-08-2022 Documentation procedure Mammog adarsh Coordinator [facility] Start: 12-08-2022 Letter encounter Mammography Coordinator [facility] Department Start: 12-08-2022 End: 12-08-2022 Subsequent hospital visit by physician Screen Mammo [facility] Comment on above: Screening breast exa mination [Z12.39] Start: 11-30-2022 Refill Freeman nava PA-C Work Phone: Pain Management Comment on above: Refill Request Start: 11-30-2022 End: 11-30-2022 Office outpatient visit 25 minutes Min Velazco MD Work Phone: Pain Management Comment on above: Fibromyalgia (Primar y Dx); Primary osteoarthritis of both knees; Sacroiliitis (HCC); Generalized anxiety disorder; Subacromial bursitis of both shoulders Start: 11-22-2022 Refill Freeman nava PA-C Work Phone: Pain Management Comment on above: Refill Request Start: 10-13-2022 End: 10-13-2022 Patient encounter procedure Freeman Sarabia PA-C Work Phone: Pain Management Comment on above: Fibromyalgia (Primar y Dx); Primary osteoarthritis of both knees; Sacroiliitis (HCC); Generalized anxiety disorder; Subacromial bursitis of both shoulders Start: 09-21-2022 Telephone encounter Torres Yao MD Work Phone: [facility] Comment on above: Results Start: 09-16-2022 Refill Freeman IBARRAC Work Phone: Pain Management Comment on above: Refill Request Start: 09-15-2022 End: 09-15-2022 Subsequent hospital visit by physician Min Velazco MD Work Phone: [facility] Comment on above: Subacromial bursitis of both shoulders [M75.51, M75.52] Start: 09-01-2022 End: 09-01-2022 Patient encounter procedure Freeman Sarabia PA-C Work Phone: Pain Management Comment on above: Fibromyalgia (Primar y Dx); Primary osteoarthritis of both knees; Generalized anxiety disorder; Sacroiliitis (HCC); 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; Subacromial bursitis of both shoulders Start: 08-18-2022 Refill Min Torres MD Work Phone: Pain Management Comment on above: Refill Request Start: 07-20-2022 End: 07-20-2022 Patient encounter procedure Freeman Sarabia PA-C Work Phone: Pain Management Comment on above: Primary osteoarthrit is of both knees (Primary Dx); Fibromyalgia; Generalized anxiety disorder; Sacroiliitis (HCC) Start: 06-20-2022 Refill Freeman nava PA-C Work Phone: Pain Management Comment on above: Refill Request Start: 06-09-2022 End: 06-09-2022 Patient encounter procedure Freeman Sarabia PA-C Work Phone: Pain Management Comment on above: Fibromyalgia (Primar y Dx); Primary osteoarthritis of both knees; Generalized anxiety disorder; Sacroiliitis (HCC) Start: 05-09-2022 Refill Min Torres MD Work Phone: Pain Management Comment on above: Refill Request Start: 05-06-2022 Refill Freeman nava PA-C Work Phone: Pain Management Comment on above: Refill Request; Refi ll Request Start: 03-29-2022 Chart abstracting Freeman snyder PA-C Work Phone: Pain Management Start: 03-07-2022 End: 03-07-2022 Patient encounter procedure Torres Yao MD Work Phone: [facility] Comment on above: Type 2 diabetes elvi itus without complication, with long-term current use of insulin (HCC) (Primary Dx); Bipolar I disorder (HCC); Essential hypertension, benign; Fibromyalgia; Acne, unspecified acne type Start: 01-31-2022 Telephone encounter Torres Yao MD Work Phone: [facility] [place] Comment on above: Glucometer New Presc ription Start: 01-19-2022 End: 01-19-2022 Subsequent hospital visit by physician Freeman Sarabia PA-C Work Phone: [facility] Comment on above: FOLLOW UP Start: 01-08-2022 End: 01-08-2022 Emergency department patient visit KANE ARCE DO [facility] Start: 08-13-2021 End: 08-13-2021 Emergency department patient visit KERRY NUNES DO [facility] Procedures Date Procedure Procedure Detail Performing Clinician Start: 05-20-2025 MRI of joint of lowe r extremity Dr. Torres Yao MD Work Phone: Start: 05-05-2025 Us pelvic nonobstetr ic image dcmtn limited/f/u Ellen Rene STAFF ELECTRONIC WARFARE OFFICER.GROUP RESERVATIONS COORDINATOR Work Phone: Start: 05-05-2025 Urnls dip stick/tabl et reagent auto microscopy Ellen Rene STAFF ELECTRONIC WARFARE OFFICER.GROUP RESERVATIONS COORDINATOR Work Phone: Start: 04-21-2025 Plain X-ray of shoulder Dr. Torres Yao MD Work Phone: Start: 09-23-2024 Lipid 1996 panel - S veronika or Plasma Freeman Sarabia PA-C Work Phone: Start: 09-17-2024 End: 09-17-2024 Arthrocentesis aspir&/inj major jt/bursa w/o us Isaac Cannon MD Work Phone: Start: 09-12-2024 Adult depression scr eening assessment Ellen Rene STAFF ELECTRONIC WARFARE OFFICER.GROUP RESERVATIONS COORDINATOR Work Phone: Start: 08-23-2024 Radex sacrum & coccy x minimum 2 views Ellen A Suppan STAFF ELECTRONIC WARFARE OFFICER.GROUP RESERVATIONS COORDINATOR Work Phone: Start: 05-10-2024 Radex spine lumbosac ral 2/3 views Ellen A Suppan STAFF ELECTRONIC WARFARE OFFICER.GROUP RESERVATIONS COORDINATOR Work Phone: Start: 01-29-2024 Radiologic exam abdomen 1 view Torres Yao MD Work Phone: Start: 01-29-2024 HEMOCUE B/O Torres Yao MD Work Phone: Start: 01-04-2024 End: 01-04-2024 Arthrocentesis aspir&/inj major jt/bursa w/o us Min Velazco MD Work Phone: Start: 08-29-2023 End: 08-29-2023 Arthrocentesis aspir&/inj major jt/bursa w/o us Min Velazco MD Work Phone: Start: 06-01-2023 End: 06-01-2023 Arthrocentesis aspir&/inj major jt/bursa w/o us Min Velazco MD Work Phone: Start: 02-02-2023 End: 02-02-2023 Arthrocentesis aspir&/inj major jt/bursa w/o us Min Velazco MD Work Phone: Start: 12-08-2022 End: 12-08-2022 Mammography Torres Yao MD Work Phone: Start: 09-15-2022 End: 09-15-2022 Arthrocentesis aspir&/inj major jt/bursa w/o us Min Velazco MD Work Phone: Start: 11-10-2021 Mammography Freeman snyder PA-C Work Phone: Start: 10-30-2019 Colonoscopy KERRY CONNELL DO Start: 06-04-2019 Electrocardiographic monitoring KERRY NUNES DO Comment on above: NSR Start: 04-13-2016 Adult depression scr eening assessment Freeman Sarabia PA-C Work Phone: Tonsillectomy and adenoidectomy KERRY NUNES DO Plan of Treatment Date Care Activity Detail Author Start: 01-09-2032 Urine microalbumin profile DTaP,Tdap,Td Vaccine (4 - Td or Tdap) [facility] Start: 09-23-2029 Lipid panel Lipid Screening [facility] Start: 03-25-2028 Screening for malign ant neoplasm of colon [facility] Start: 09-23-2027 Diabetes Screening Diabetes Screenin g [facility] Start: 05-16-2026 Annual PCP Team Chain Forming Machine Operator francisco Disease Visit Annual PCP Team Chronic Disease Visit [facility] Start: 05-05-2026 Annual PCP Team Chain Forming Machine Operator francisco Disease Visit Annual PCP Team Chronic Disease Visit [facility] Start: 03-14-2026 Annual PCP Team Chain Forming Machine Operator francisco Disease Visit Annual PCP Team Chronic Disease Visit [facility] Start: 03-14-2026 Screening for malign ant neoplasm of breast Mammogram Screening [facility] Start: 11-25-2025 BP Controlled (<130/80) BP Controlle d (<130/80) [facility] Start: 10-01-2025 End: 10-01-2025 Patient encounter procedure 10/01/2025 10:00 AM EST Office Visit Family [facility] [address] [place] [address] Torres Yao MD [address] [place] [address] 6 mo follow up Family [facility] [place] Comment on above: 6 mo follow up Start: 09-14-2025 End: 12-14-2025 25-hydroxyvitamin D3 [Mass/volume] in Serum or Plasma VITAMIN D 25 HYDROXY Lab Routine Fibromyalgia Disorder of bone, unspecified Expected: 09/14/2025, Expires: 12/14/2025 [facility] Comment on above: Expected: 09/14/2025 , Expires: 12/14/2025 Start: 09-14-2025 End: 12-14-2025 CBC W Auto Differential panel - Blood COMPLETE BLOOD COUNT AND DIFFERENTIAL Lab Routine Essential Hypertension, Benign Expected: 09/14/2025, Expires: 12/14/2025 Work Phone: Comment on above: Expected: 09/14/2025 , Expires: 12/14/2025 Start: 09-14-2025 End: 12-14-2025 Comprehensive metabolic 2000 panel - Serum or Plasma COMPREHENSIVE METABOLIC PANEL Lab Routine Essential Hypertension, Benign Expected: 09/14/2025, Expires: 12/14/2025 [facility] Comment on above: Expected: 09/14/2025 , Expires: 12/14/2025 Start: 09-14-2025 End: 12-14-2025 Hemoglobin A1c in Blood HEMOGLOBIN A1C Lab Routine History of diabetes mellitus Expected: 09/14/2025, Expires: 12/14/2025 [facility] Comment on above: Expected: 09/14/2025 , Expires: 12/14/2025 Start: 09-14-2025 End: 12-14-2025 Lipid 1996 panel - Serum or Plasma LIPID PANEL, FASTING Lab Routine Essential Hypertension, Benign Expected: 09/14/2025, Expires: 12/14/2025 [facility] Comment on above: Expected: 09/14/2025 , Expires: 12/14/2025 Start: 09-14-2025 End: 12-14-2025 Thyrotropin [Units/volume] in Serum or Plasma THYROID STIMULATING HORMONE Lab Routine Generalized anxiety disorder Expected: 09/14/2025, Expires: 12/14/2025 [facility] Comment on above: Expected: 09/14/2025 , Expires: 12/14/2025 Start: 09-12-2025 Annual PCP Team Chain Forming Machine Operator francisco Disease Visit Annual PCP Team Chronic Disease Visit [facility] Start: 09-12-2025 BP Controlled (<130/80) BP Controlle d (<130/80) [facility] Start: 09-12-2025 Covid-19 Vaccine ( season) Covid-19 Vaccine () [facility] Comment on above: Postponed from 06/30 (Declined at this time) Start: 09-12-2025 Depression Screening Depression Scre ening [facility] Start: 09-12-2025 Hepatitis B Vaccine (1 of 3 - 19+ 3-dose series) Hepatitis B Vaccine (1 of 3 - 19+ 3-dose series) [facility] Comment on above: Postponed from 10/02 (Declined at this time) Start: 09-12-2025 Screening for malign ant neoplasm of cervix Cervical Cancer Screening [facility] Comment on above: Postponed from 07/27 (Declined at this time) Start: 08-11-2025 End: 08-11-2025 Patient encounter procedure 08/11/2025 2:00 PM EDT Office Visit Pain Management [address] [place] [address] Isaac Cannon MD [address] [place] [address] Follow Up Pain Management Comment on above: Follow Up Start: 07-27-2025 HPV TESTING HPV TESTING [facility] Start: 07-27-2025 Screening for malign ant neoplasm of cervix HPV Testing [facility] Start: 06-30-2025 Influenza vaccination [facility] Start: 06-13-2025 BP Controlled (<130/80) BP Controlle d (<130/80) [facility] Start: 05-23-2025 BP Controlled (<130/80) BP Controlle d (<130/80) [facility] Start: 05-16-2025 End: 05-16-2025 Patient encounter procedure 05/16/2025 1:40 PM EDT Office Visit Family [facility] [place] [address] [place], [place] [id number] Torres Yao MD [address] [place], [place] [id number] pt feels a bit anxious tried reaching therapist on maternity leave [facility] [place] Comment on above: pt feels a bit anxio us tried reaching therapist on maternity leave Start: 05-15-2025 End: 05-15-2025 Patient encounter procedure Pain Management Comment on above: Follow Up Start: 05-10-2025 BP Controlled (<130/80) BP Controlle d (<130/80) [facility] Start: 04-28-2025 Influenza vaccination Influenza Vacc ine (#1) [facility] Comment on above: Postponed from 06/30 (Declined at this time) Start: 04-21-2025 Plain X-ray of shoulder Shoulder min 2 Views [facility] Start: 04-21-2025 XR Shoulder GE 2 Views [facility] Start: 03-14-2025 End: 03-14-2025 Patient encounter procedure 03/14/2025 10:00 AM EDT Office Visit Family [facility] [address] [place] [address] Torres Yao MD [address] [place] [address] 6 month f/u [facility] Comment on above: 6 month f/u Start: 03-04-2025 Annual PCP Team Chain Forming Machine Operator francisco Disease Visit Annual PCP Team Chronic Disease Visit [facility] Start: 03-04-2025 BP Controlled (<130/80) BP Controlle d (<130/80) [facility] Start: 02-14-2025 End: 02-14-2025 Patient encounter procedure 02/14/2025 1:30 PM EDT Office Visit Pain Management [address] [place] [address] Freeman Sarabia PA-C [address] [place] [address] Follow Up Pain Management Comment on above: Follow Up Start: 02-03-2025 End: 02-03-2025 ambulatory 02/03/2025 4:00 PM EDT OT/PT/Speech Visit [facility] [address] [place] [address] Joanna Rey PT Rupture of anterior cruciate ligament of right knee, subsequent encounter [S83.511D (ICD-10-CM [facility] Comment on above: Rupture of anterior cruciate ligament of right knee, subsequent encounter [S83.511D (ICD-10-CM Start: 01-28-2025 Annual PCP Team Chain Forming Machine Operator francisco Disease Visit Annual PCP Team Chronic Disease Visit [facility] Start: 01-28-2025 BP Controlled (<130/80) BP Controlle d (<130/80) [facility] Start: 01-17-2025 End: 01-17-2025 ambulatory 01/17/2025 1:00 PM EDT OT/PT/Speech Visit [facility] [address] [place] [address] Lemon, Joanna, PT Subacromial bursitis of both shoulders [M75.51, M75.52] [facility] Comment on above: Subacromial bursitis of both shoulders [M75.51, M75.52] Start: 01-13-2025 End: 01-13-2025 ambulatory 01/13/2025 12:00 PM EDT OT/PT/Speech Visit [facility] [address] [place] [address] Lemon, Joanna, PT Subacromial bursitis of both shoulders [M75.51, M75.52] [facility] Comment on above: Subacromial bursitis of both shoulders [M75.51, M75.52] Start: 01-09-2025 End: 01-09-2025 ambulatory 01/09/2025 11:00 AM EDT OT/PT/Speech Visit [facility] [address] [place] [address] KasRachel quezada, TOOL STORAGE ATTENDANT [address] [place] [address] Subacromial bursitis of both shoulders [M75.51, M75.52] [facility] Comment on above: Subacromial bursitis of both shoulders [M75.51, M75.52] Start: 01-06-2025 End: 01-06-2025 ambulatory 01/06/2025 12:00 PM EDT OT/PT/Speech Visit [facility] [address] [place] [address] Lemon, Joanna, PT Subacromial bursitis of both shoulders [M75.51, M75.52] [facility] Comment on above: Subacromial bursitis of both shoulders [M75.51, M75.52] Start: 01-03-2025 End: 01-03-2025 ambulatory 01/03/2025 11:00 AM EST OT/PT/Speech Visit [facility] [address] [place] [address] Rachel Whiteside, TOOL STORAGE ATTENDANT [address] [place] [address] Subacromial bursitis of both shoulders [M75.51, M75.52] [facility] Comment on above: Subacromial bursitis of both shoulders [M75.51, M75.52] Start: 12-31-2024 End: 12-31-2024 ambulatory 12/31/2024 11:45 AM EST OT/PT/Speech Visit [facility] [address] [place] [address] Leeann Whitesideh, TOOL STORAGE ATTENDANT [address] [place] [address] Subacromial bursitis of both shoulders [M75.51, M75.52] [facility] Comment on above: Subacromial bursitis of both shoulders [M75.51, M75.52] Start: 12-24-2024 End: 12-24-2024 ambulatory 12/24/2024 2:45 PM EST OT/PT/Speech Visit [facility] [address] [place] [address] Leeann Whitesideh, TOOL STORAGE ATTENDANT [address] [place] [address] Subacromial bursitis of both shoulders [M75.51, M75.52] [facility] Comment on above: Subacromial bursitis of both shoulders [M75.51, M75.52] Start: 12-22-2024 BP Controlled (<130/80) BP Controlle d (<130/80) [facility] Start: 12-19-2024 End: 12-19-2024 ambulatory 12/19/2024 11:00 AM EST OT/PT/Speech Visit [facility] [address] [place] [address] ChavochiragstarlaRachel, TOOL STORAGE ATTENDANT [address] [place] [address] shoulder pain [facility] Comment on above: shoulder pain Start: 12-11-2024 End: 12-11-2024 ambulatory 12/11/2024 2:45 PM EST OT/PT/Speech Visit [facility] [address] [place] [address] ChavoRachel quezada, TOOL STORAGE ATTENDANT [address] [place] [address] shoulder pain [facility] Comment on above: shoulder pain Start: 12-11-2024 Screening for malign ant neoplasm of breast Mammogram Screening [facility] Start: 11-22-2024 End: 11-22-2024 Patient encounter procedure 11/22/2024 11:30 AM EST Office Visit Pain Management [address] [facility] [place] [address] Freeman Sarabia PA-C [address] [place] [address] Follow Up Pain Management Comment on above: Follow Up Start: 11-10-2024 BP Controlled (<130/80) BP Controlle d (<130/80) [facility] Start: 10-13-2024 Annual PCP Team Chain Forming Machine Operator francisco Disease Visit Annual PCP Team Chronic Disease Visit [facility] Start: 10-13-2024 BP Controlled (<130/80) BP Controlle d (<130/80) [facility] Start: 10-13-2024 Covid-19 Vaccine () Covid-19 Vaccine () [facility] Comment on above: Postponed from 06/30 (Declined at this time) Start: 2024 Screening for malign ant neoplasm of colon [facility] Start: 09-28-2024 BP Controlled (<130/80) BP Controlle d (<130/80) [facility] Start: 09-17-2024 End: 09-17-2024 Admission to same day surgery center 09/17/2024 1:00 PM EST - 09/17/2024 1:15 PM EST Surgery [facility] [address] [place] [address] Isaac Cannon MD [address] [place], [place] [id number] ARTHROCENTESIS,ASPIRATIO N AND/OR INJECTION,MAJOR JOINT OR BURSA W/O US GUIDANCE (Subacromial bursas) [facility] Comment on above: ARTHROCENTESIS,ASPIR ATION AND/OR INJECTION,MAJOR JOINT OR BURSA W/O US GUIDANCE (Subacromial bursas) Start: 09-17-2024 End: 09-17-2024 Arthrocentesis aspir&/inj major jt/bursa w/o us ARTHROCENTESIS,ASPIRATIO N AND/OR INJECTION,MAJOR JOINT OR BURSA W/O US GUIDANCE Subacromial bursitis of both shoulders 09/17/2024 1:00 PM EST MR [facility] Start: 09-17-2024 Subsequent hospital visit by physician 09/17/2024 1:00 PM EST Hospital Encounter [facility] [address] [place] [address] Isaac Cannon MD [address] [place] [address] Subacromial bursitis of both shoulders [M75.51, M75.52] [facility] Comment on above: Subacromial bursitis of both shoulders [M75.51, M75.52] Start: 09-12-2024 End: 12-12-2024 CBC W Auto Differential panel - Blood COMPLETE BLOOD COUNT AND DIFFERENTIAL Lab Routine Chronic pain syndrome History of diabetes mellitus Expected: 09/12/2024, Expires: 12/12/2024 [facility] Comment on above: Expected: 09/12/2024 , Expires: 12/12/2024 Start: 09-12-2024 End: 12-12-2024 Cobalamin (Vitamin B12) [Mass/volume] in Serum or Plasma VITAMIN B12 Lab Routine Chronic pain syndrome History of diabetes mellitus Expected: 09/12/2024, Expires: 12/12/2024 [facility] Comment on above: Expected: 09/12/2024 , Expires: 12/12/2024 Start: 09-12-2024 End: 12-12-2024 Comprehensive metabolic 2000 panel - Serum or Plasma COMPREHENSIVE METABOLIC PANEL Lab Routine Chronic pain syndrome History of diabetes mellitus Essential Hypertension, Benign Expected: 09/12/2024, Expires: 12/12/2024 Work Phone: Comment on above: Expected: 09/12/2024 , Expires: 12/12/2024 Start: 09-12-2024 End: 12-12-2024 Hemoglobin A1c in Blood HEMOGLOBIN A1C Lab Routine Chronic pain syndrome History of diabetes mellitus Expected: 09/12/2024, Expires: 12/12/2024 [facility] Comment on above: Expected: 09/12/2024 , Expires: 12/12/2024 Start: 09-12-2024 End: 12-12-2024 LIPID PANEL, NONFASTING LIPID PANEL, NONFASTING Lab Routine Chronic pain syndrome History of diabetes mellitus Encounter for lipid screening for cardiovascular disease Expected: 09/12/2024, Expires: 12/12/2024 [facility] Comment on above: Expected: 09/12/2024 , Expires: 12/12/2024 Start: 09-12-2024 End: 12-12-2024 Magnesium [Mass/volume] in Serum or Plasma MAGNESIUM Lab Routine Chronic pain syndrome History of diabetes mellitus Expected: 09/12/2024, Expires: 12/12/2024 [facility] Comment on above: Expected: 09/12/2024 , Expires: 12/12/2024 Start: 09-12-2024 End: 12-12-2024 Microalbumin/Creatinine [Mass Ratio] in Urine ALBUMIN/CREATININE RATIO, URINE Lab Routine History of diabetes mellitus Expected: 09/12/2024, Expires: 12/12/2024 [facility] Comment on above: Expected: 09/12/2024 , Expires: 12/12/2024 Start: 09-12-2024 End: 12-12-2024 Thyrotropin [Units/volume] in Serum or Plasma THYROID STIMULATING HORMONE Lab Routine Chronic pain syndrome History of diabetes mellitus Expected: 09/12/2024, Expires: 12/12/2024 [facility] Comment on above: Expected: 09/12/2024 , Expires: 12/12/2024 Start: 09-12-2024 End: 09-12-2024 Patient encounter procedure 09/12/2024 10:00 AM EST Office Visit Family [facility] [address] [place] [address] Ellen Rene APRN.GROUP RESERVATIONS COORDINATOR [address] [facility] [place] [address] 3 month lumbar spine f/u [facility] Comment on above: 3 month lumbar spine f/u Start: 08-28-2024 End: 08-28-2024 Patient encounter procedure 08/28/2024 1:30 PM EDT Office Visit Pain Management [address] [place] [address] Freeman Sarabia PA-C [address] [place] [address] Follow up Pain Management Comment on above: Follow up Start: 08-25-2024 BP Controlled (<130/80) BP Controlle d (<130/80) [facility] Start: 08-07-2024 End: 08-07-2024 ambulatory 08/07/2024 11:30 AM EDT OT/PT/Speech [facility] [address] [facility] [place], [place] [address] Salvador Hart, PT [address] [place] [address] M54.50 (ICD-10-CM) - Acute midline low back pain without sciatica [facility] Comment on above: M54.50 (ICD-10-CM) - Acute midline low back pain without sciatica Start: 07-24-2024 End: 07-24-2024 ambulatory 07/24/2024 11:30 AM EDT OT/PT/Speech Visit [facility] [address] [place] [address] Salvador Hart, PT [address] [place] [address] M54.50 (ICD-10-CM) - Acute midline low back pain without sciatica [facility] Comment on above: M54.50 (ICD-10-CM) - Acute midline low back pain without sciatica Start: 07-13-2024 BP Controlled (<130/80) BP Controlle d (<130/80) [facility] Start: 07-10-2024 End: 07-10-2024 ambulatory 07/10/2024 3:00 PM EDT OT/PT/Speech Visit [facility] [address] [place] [address] Salvador Hart, PT [address] [place], [place] [id number] M54.50 (ICD-10-CM) - Acute midline low back pain without sciatica [facility] Comment on above: M54.50 (ICD-10-CM) - Acute midline low back pain without sciatica Start: 07-04-2024 End: 07-04-2024 Documentation procedure 07/04/2024 Plan of Care Documentation [facility] [address] [place] [address] [facility] Start: 07-04-2024 End: 07-04-2024 ambulatory 07/04/2024 10:45 AM EDT OT/PT/Speech Visit [facility] [address] [place] [address] Salvador Hart, PT [address] [place] [address] Acute midline low back pain without sciatica [M54.50] [facility] Comment on above: Acute midline low ba ck pain without sciatica [M54.50] Start: 06-30-2024 Covid-19 Vaccine ( season) Covid-19 Vaccine () [facility] Start: 06-30-2024 Covid-19 Vaccine ( season) Covid-19 Vaccine () [facility] Start: 06-30-2024 Influenza vaccination [facility] Start: 06-27-2024 End: 06-27-2024 ambulatory 06/27/2024 10:15 AM EDT OT/PT/Speech Visit [facility] [address] [place], [place] [address] Rachel Whiteside, TOOL STORAGE ATTENDANT [address] [facility] [place] [address] Acute midline low back pain without sciatica [M54.50] [facility] Comment on above: Acute midline low ba ck pain without sciatica [M54.50] Start: 06-21-2024 End: 07-21-2025 XR Sacrum and Coccyx 3 Views Work Phone: Comment on above: Expected: 06/21/2024 , Expires: 07/21/2025 Start: 06-20-2024 End: 06-20-2024 ambulatory 06/20/2024 10:15 AM EDT OT/PT/Speech Visit [facility] [address] [facility] [place] [address] Rachel Whiteside, TOOL STORAGE ATTENDANT [address] [place] [address] Acute midline low back pain without sciatica [M54.50] [facility] Comment on above: Acute midline low ba ck pain without sciatica [M54.50] Start: 06-13-2024 End: 06-13-2024 ambulatory 06/13/2024 2:15 PM EDT OT/PT/Speech Visit [facility] [address] [place] [facility] [place] [address] Salvador Hart, PT [address] [place] [address] Acute midline low back pain without sciatica [M54.50] [facility] Comment on above: Acute midline low ba ck pain without sciatica [M54.50] Start: 06-13-2024 End: 06-13-2024 Patient encounter procedure 06/13/2024 11:20 AM EDT Office Visit Family [facility] [address] [facility] [place] [address] Ellen Rene APRN.[facility] [address] [facility] [address] 1 month f/u [facility] Comment on above: 1 month f/u Start: 06-03-2024 End: 06-03-2024 ambulatory 06/03/2024 10:00 AM EDT OT/PT/Speech Visit [facility] [address] [facility] [place] [address] Salvador Hart, PT [address] [facility] [place] [address] Acute midline low back pain without sciatica [M54.50] [facility] Comment on above: Acute midline low ba ck pain without sciatica [M54.50] Start: 05-26-2024 Urine microalbumin profile [facility] Start: 05-23-2024 End: 05-23-2024 Patient encounter procedure 05/23/2024 1:30 PM EDT Office Visit Pain Management [address] [place] [address] Freeman Sarabia PADrewC [address] [place] [address] follow up Pain Management Comment on above: follow up Start: 04-28-2024 Influenza vaccination Influenza Vacc ine (#1) [facility] Comment on above: Postponed from 06/30 (Declined at this time) Start: 04-19-2024 End: 04-19-2024 Patient encounter procedure 04/19/2024 10:20 AM EDT Office Visit [facility] [place] [address] [place] [address] Torres Yao MD [address] [place] [address] 6 mth f/u [facility] [place] Comment on above: 6 mth f/u Start: 04-12-2024 ANNUAL PCP TEAM ELECTRONICS UTILITY WORKER FRANCISCO DISEASE VISIT ANNUAL PCP TEAM CHRONIC DISEASE VISIT [facility] Start: 04-12-2024 COVID-19 VACCINE (3 - Booster for Kamala series) COVID-19 VACCINE (3 - Booster for Kamala series) [facility] Comment on above: Postponed from 12/23 (Declined at this time) Start: 04-12-2024 HEPATITIS B (1 of 3 - 3-dose series) HEPATITIS B (1 of 3 - 3-dose series) [facility] Comment on above: Postponed from 10/02 (Declined at this time) Start: 04-12-2024 Hepatitis B Vaccine (1 of 3 - 19+ 3-dose series) Hepatitis B Vaccine (1 of 3 - 19+ 3-dose series) [facility] Comment on above: Postponed from 10/02 (Declined at this time) Start: 04-12-2024 Hepatitis B Vaccine (1 of 3 - 3-dose series) Hepatitis B Vaccine (1 of 3 - 3-dose series) [facility] Comment on above: Postponed from 10/02 (Declined at this time) Start: 04-12-2024 PNEUMOCOCCAL (2 - PCV) PNEUMOCOCCAL (2 - PCV) [facility] Comment on above: Postponed from 10/21 (Declined at this time) Start: 04-12-2024 Pneumococcal vaccination Pneum ococcal Vaccine (2 - PCV) [facility] Comment on above: Postponed from 10/21 (Declined at this time) Start: 03-20-2024 End: 03-20-2024 Patient encounter procedure 03/20/2024 1:15 PM EDT Office Visit Pain Management [address] [facility] [place] [address] Freeman Sarabia PA-C [address] [place] [address] FOLLOWUP Pain Management Comment on above: FOLLOWUP Start: 03-03-2024 BP CONTROLLED (<130/80) BP CONTROLLE D (<130/80) [facility] Start: 01-21-2024 BP CONTROLLED (<130/80) BP CONTROLLE D (<130/80) [facility] Start: 12-08-2023 Mammography [facility] Start: 12-08-2023 Screening for malign ant neoplasm of breast Mammogram Screening [facility] Start: 11-30-2023 BP CONTROLLED (<130/80) BP CONTROLLE D (<130/80) [facility] Start: 10-30-2023 Behavioral Health Screening Behavioral Health Screening [facility] Start: 10-30-2023 Depression Assessment Depression Ass essment [facility] Start: 10-13-2023 End: 10-13-2024 BINTA BY IFA SCREEN Work Phone: Comment on above: Expected: 10/13/2023 , Expires: 10/13/2024 Start: 10-13-2023 BP CONTROLLED (<130/80) BP CONTROLLE D (<130/80) [facility] Start: 10-13-2023 End: 10-13-2024 C reactive protein [Mass/volume] in Serum or Plasma Work Phone: Comment on above: Expected: 10/13/2023 , Expires: 10/13/2024 Start: 10-13-2023 End: 01-12-2024 Cobalamin (Vitamin B12) [Mass/volume] in Serum or Plasma Work Phone: Comment on above: Expected: 10/13/2023 , Expires: 01/12/2024 Start: 10-13-2023 End: 01-12-2024 Comprehensive metabolic 2000 panel - Serum or Plasma Work Phone: Comment on above: Expected: 10/13/2023 , Expires: 01/12/2024 Start: 10-13-2023 End: 01-12-2024 Folate [Mass/volume] in Serum or Plasma Work Phone: Comment on above: Expected: 10/13/2023 , Expires: 01/12/2024 Start: 10-13-2023 End: 01-12-2024 Hemoglobin A1c in Blood Work Phone: Comment on above: Expected: 10/13/2023 , Expires: 01/12/2024 Start: 10-13-2023 End: 01-12-2024 PROTEIN ELECTROPHORESIS SERUM W/INTERP Work Phone: Comment on above: Expected: 10/13/2023 , Expires: 01/12/2024 Start: 10-13-2023 End: 10-13-2024 Rheumatoid factor [Units/volume] in Serum or Plasma Work Phone: Comment on above: Expected: 10/13/2023 , Expires: 10/13/2024 Start: 10-13-2023 End: 01-12-2024 Thyrotropin [Units/volume] in Serum or Plasma Work Phone: Comment on above: Expected: 10/13/2023 , Expires: 01/12/2024 Start: 09-28-2023 End: 12-28-2023 TOXASSURE FLEX 23, URINE TOXASSURE FLEX 23, URINE Lab Routine Other [facility] (current) drug therapy Primary osteoarthritis of both knees Expected: 09/28/2023, Expires: 12/28/2023 Work Phone: Comment on above: Expected: 09/28/2023 , Expires: 12/28/2023 Start: 09-19-2023 Hepatitis B surface antibody level LDL CHOLESTEROL [facility] Start: 09-08-2023 ANNUAL PCP TEAM ELECTRONICS UTILITY WORKER FRANCISCO DISEASE VISIT ANNUAL PCP TEAM CHRONIC DISEASE VISIT [facility] Start: 09-01-2023 BP CONTROLLED (<130/80) BP CONTROLLE D (<130/80) [facility] Start: 07-27-2023 PAP TESTING PAP TESTING [facility] Start: 07-27-2023 Screening for malign ant neoplasm of cervix [facility] Start: 07-20-2023 BP CONTROLLED (<130/80) BP CONTROLLE D (<130/80) [facility] Start: 06-30-2023 Covid-19 Vaccine () Covid-19 Vaccine () [facility] Start: 06-30-2023 Influenza vaccination [facility] Start: 06-09-2023 BP CONTROLLED (<130/80) BP CONTROLLE D (<130/80) [facility] Start: 04-28-2023 Influenza vaccination INFLUENZA (#1) [facility] Comment on above: Postponed from 06/30 (Declined at this time) Start: 03-19-2023 Hemoglobin A1c/Hemoglobin.total in Blood HBA1C [facility] Start: 03-10-2023 Hepatitis B screening URINE AL BUMIN:CREATININE RATIO [facility] Start: 03-10-2023 Hepatitis C antibody , confirmatory test DILATED RETINAL EXAM [facility] Start: 03-07-2023 ANNUAL PCP TEAM ELECTRONICS UTILITY WORKER FRANCISCO DISEASE VISIT ANNUAL PCP TEAM CHRONIC DISEASE VISIT [facility] Start: 03-07-2023 BP CONTROLLED (<130/80) BP CONTROLLE D (<130/80) [facility] Start: 03-03-2023 End: 05-03-2023 TOXASSURE FLEX 23, URINE TOXASSURE FLEX 23, URINE Lab Routine Primary osteoarthritis of both knees Other [facility] (current) drug therapy Expected: 03/03/2023, Expires: 05/03/2023 Work Phone: Comment on above: Expected: 03/03/2023 , Expires: 05/03/2023 Start: 11-10-2022 Mammography MAMMOGRAM [facility] Start: 10-30-2022 DEPRESSION ASSESSMENT DEPRESSION ASS ESSMENT [facility] Start: 09-21-2022 End: 11-21-2022 POTASSIUM BLD POTASSIUM BLD Lab Routine Hypokalemia Expected: 09/21/2022, Expires: 11/21/2022 Work Phone: Comment on above: Expected: 09/21/2022 , Expires: 11/21/2022 Start: 09-19-2022 3 comp foot exam completed DIABETIC FOOT EXAM [facility] Start: 09-13-2022 Hepatitis B surface antibody level LDL CHOLESTEROL [facility] Start: 09-07-2022 Hemoglobin A1c/Hemoglobin.total in Blood HBA1C [facility] Start: 09-06-2022 ANNUAL PCP TEAM ELECTRONICS UTILITY WORKER FRANCISCO DISEASE VISIT ANNUAL PCP TEAM CHRONIC DISEASE VISIT [facility] Start: 09-01-2022 End: 11-01-2022 DRUG SCR TOXASURE DRUG SCR TOXASURE Lab Routine Primary osteoarthritis of both knees 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 Expected: 09/01/2022, Expires: 11/01/2022 Work Phone: Comment on above: Expected: 09/01/2022 , Expires: 11/01/2022 Start: 06-30-2022 Influenza vaccination [facility] Start: 04-28-2022 Influenza vaccination INFLUENZA (#1) [facility] Comment on above: Postponed from 06/30 (Declined at this time) Start: 03-13-2022 Hemoglobin A1c/Hemoglobin.total in Blood HBA1C [facility] Start: 03-07-2022 End: 05-07-2022 ALBUMIN/CREAT RATIO RND UR ALBUMIN/CREAT RATIO RND UR Lab Routine Type 2 diabetes mellitus without complication, with long-term current use of insulin (HCC) Expected: 03/07/2022, Expires: 05/07/2022 Work Phone: Comment on above: Expected: 03/07/2022 , Expires: 05/07/2022 Start: 03-07-2022 End: 05-07-2022 Basic metabolic 2000 panel - Serum or Plasma Work Phone: Comment on above: Expected: 03/07/2022 , Expires: 05/07/2022 Start: 03-07-2022 End: 05-07-2022 Hemoglobin A1c/Hemoglobin.total in Blood Work Phone: Comment on above: Expected: 03/07/2022 , Expires: 05/07/2022 Start: 03-05-2022 3 comp foot exam completed DIABETIC FOOT EXAM [facility] Start: 02-26-2022 COVID-19 VACCINE (3 - Booster for Kamala series) COVID-19 VACCINE (3 - Booster for Kamala series) [facility] Start: 02-24-2022 Hepatitis B screening URINE AL BUMIN:CREATININE RATIO [facility] Start: 12-23-2021 COVID-19 VACCINE (3 - Booster for Kamala series) COVID-19 VACCINE (3 - Booster for Kamala series) [facility] Start: 10-30-2021 DEPRESSION ASSESSMENT DEPRESSION ASS ESSMENT [facility] Start: 10-06-2021 Hepatitis C antibody , confirmatory test DILATED RETINAL EXAM [facility] Start: 04-13-2017 Adult depression screening assessment DEPRESSION SCREENING [facility] Start: 10-21-2014 PNEUMOCOCCAL (2 - PCV) PNEUMOCOCCAL (2 - PCV) [facility] Start: 05-30-2001 Medicare Annual Well ness Visit Medicare Annual Wellness Visit [facility] Start: 1998 HEPATITIS B (1 of 3 - Risk 3-dose series) HEPATITIS B (1 of 3 - Risk 3-dose series) [facility] Start: 1998 Hepatitis B Vaccine (1 of 3 - 19+ 3-dose series) Hepatitis B Vaccine (1 of 3 - 19+ 3-dose series) [facility] Start: 1997 BP CONTROLLED (<130/80) BP CONTROLLE D (<130/80) [facility] Start: 1997 Depression Screening Depression Scre ening [facility] Start: 1997 HEPATITIS C SCREENING HEPATITIS C SC RETA [facility] Start: 1979 HEPATITIS B (1 of 3 - 3-dose series) HEPATITIS B (1 of 3 - 3-dose series) [facility] COLOGUARD COLOGUARD Lab Ro utine Screening for colon cancer Ordered: 03/14/2025 [facility] Comment on above: Ordered: 03/14/2025 End: 02-13-2026 DBT Breast - bilateral screening [facility] SCRE[facility] Radiology Routine Encounter for screening mammogram for breast cancer 1 Occurrences starting 01/14/2025 until 02/13/2026 Work Phone: Comment on above: 1 Occurrences starti ng 01/14/2025 until 02/13/2026 DBT Breast - bilater al screening [facility] Radiology Routine Encounter for screening mammogram for breast cancer 03/14/2025 12:58 PM EDT Work Phone: End: 11-11-2024 BRITTON SCREENING [facility] SCREEN[facility] Radiology Routine Encounter for screening mammogram for malignant neoplasm of breast 1 Occurrences starting 10/13/2023 until 11/11/2024 Work Phone: Comment on above: 1 Occurrences starti ng 10/13/2023 until 11/11/2024 MG Breast Screening BRITTON SCREENIN G Radiology Routine Encounter for screening mammogram for malignant neoplasm of breast 12/11/2023 10:18 AM [facility] Work Phone: MR Lower Extremity Joint [facility] End: 09-25-2024 XR SHOULDER ORTHO 4V AP/TRUE AP/LAT/OUTLET LEFT XR SHOULDER ORTHO 4V AP/TRUE AP/LAT/OUTLET LEFT Radiology Routine Chronic pain of both shoulders 1 Occurrences starting 08/25/2023 until 09/25/2024 Work Phone: Comment on above: 1 Occurrences starti ng 08/25/2023 until 09/25/2024 XR SHOULDER ORTHO 4V AP/TRUE AP/LAT/OUTLET LEFT XR SHOULDER ORTHO 4V AP/TRUE AP/LAT/OUTLET LEFT Radiology Routine Chronic pain of both shoulders 08/25/2023 10:14 AM EDT Work Phone: End: 09-25-2024 XR SHOULDER ORTHO 4V AP/TRUE AP/LAT/OUTLET RIGHT XR SHOULDER ORTHO 4V AP/TRUE AP/LAT/OUTLET RIGHT Radiology Routine Chronic pain of both shoulders 1 Occurrences starting 08/25/2023 until 09/25/2024 Work Phone: Comment on above: 1 Occurrences starti ng 08/25/2023 until 09/25/2024 XR SHOULDER ORTHO 4V AP/TRUE AP/LAT/OUTLET RIGHT XR SHOULDER ORTHO 4V AP/TRUE AP/LAT/OUTLET RIGHT Radiology Routine Chronic pain of both shoulders 08/25/2023 10:14 AM EDT Work Phone: [facility] MR ZANA PAIGE [facility] Immunizations Immunization Date Immunization Notes Care Provider Daniel arce 01-08-2022 tetanus toxoid, redu melanie diphtheria toxoid, and acellular pertussis vaccine, adsorbed; Translations: [Boostrix (Tdap)] KANE ARCE DO [facility] 02-04-2021 COVID-19 vaccine (KAMALA) Freeman Sarabia PA-C Work Phone: [facility] 07-15-2019 influenza, injectabl e, quadrivalent, contains preservative Freeman Sarabia PA-C Work Phone: [facility] 07-15-2019 influenza virus vacc ine, unspecified formulation Freeman Sarabia PA-C Work Phone: [facility] 08-05-2016 influenza, injectabl e, quadrivalent, contains preservative Freeman Sarabia PA-C Work Phone: [facility] 08-05-2016 influenza, seasonal, injectable Freeman Sarabia PA-C Work Phone: [facility] 10-07-2015 influenza, injectabl e, quadrivalent, contains preservative Freeman Sarabia PA-C Work Phone: [facility] 10-07-2015 influenza, seasonal, injectable Freeman Sarabia PA-C Work Phone: [facility] 09-29-2014 influenza, seasonal, injectable Freeman Sarabia PA-C Work Phone: [facility] 05-26-2014 tetanus toxoid, redu melanie diphtheria toxoid, and acellular pertussis vaccine, adsorbed Freeman Sarabia PA-C Work Phone: [facility] 10-21-2013 pneumococcal polysaccharide vaccine, 23 valent Freeman Sarabia PA-C Work Phone: [facility] Work Phone: 07-30-2011 influenza virus vacc ine, unspecified formulation Freeman Sarabia PA-C Work Phone: [facility] Work Phone: 07-30-2011 influenza, seasonal, injectable Freeman Sarabia PA-C Work Phone: [facility] 09-29-2010 influenza virus vacc ine, unspecified formulation Freeman Sarabia PA-C Work Phone: [facility] Work Phone: 09-29-2010 influenza, seasonal, injectable Freeman Sarabia PA-C Work Phone: [facility] 06-09-2004 diphtheria and tetan us toxoids, adsorbed for pediatric use Freeman Sarabia PA-C Work Phone: [facility] Work Phone: Payers Date Payer Category Payer Medicaid [id number] 2025 Self-pay 2024 Private Health Insurance MED[place]Y [address] [place] [address] [id number] 2024 Unknown MEDPAY MEDPAY [id number] 2024-Present [phone] [id number] [facility] [id number] [place] [address] Indemnity [id number] 2023 Medicare [id number] 2019 Medicaid [employer] [id number] 2019-Present [phone] [address] [place] [address] Medicaid [id number] 2014 Medicaid [id number] 2014 Medicare MEDICARE MEDICAR E A AND B [id number] 2014-Present [phone] [address] [address] [place] [address] Medicare [id number] 2014 Unknown [id number] 2001 Medicare [id number] 2001 Medicare [id number] 1979 Unknown [id number] 1979 Unknown [id number] 627 1979 Unknown [id number] 627 1979 Unknown [id number] 627 Unknown [id number] 462 Unknown [id number] 462 Unknown [id number] 462 Unknown [id number] 462 Unknown [id number] 462 Social History Date Type Detail Facility Start: 01-28-2020 End: 09-12-2024 Ex-smoker (finding) [facility] Start: 1980 Sex Assigned At Female A [facility] End: 06-16-2008 History of tobacco use Current smoker [facility] End: 06-16-2008 History of tobacco use Cigarette Smoker [facility] Start: 09-20-2021 End: 03-14-2025 Alcohol intake Current non-drinker of alcohol (finding) [facility] Start: 1980 Sex Assigned At Not on file [facility] Start: 02-25-2022 End: 09-15-2022 Exposure to SARS-CoV-2 (event) Not sure [facility] Start: 08-05-2016 End: 03-03-2023 Cigarettes smoked current (pack per day) - Reported 0.5 [facility] Work Phone: Start: 08-05-2016 End: 09-12-2024 Tobacco use and exposure Smokeless tobacco non-user [facility] Work Phone: Start: 03-03-2023 End: 05-26-2023 Tobacco use panel [facility] Work Phone: Adult Depression Screening Assessment 3 [facility] Work Phone: Start: 12-20-2019 Tobacco Use [facility] Procedure Code Equipment Code Equipment Original Text Equipment Identifier Dates Start: 11-25-2020 End: 09-15-2022 Comment on above: testing 1 times paresh y - dx E11.9 - Insulin: Yes Test blood sugar(s) 2-3 daily. Dx: uncontrolled diabetes (250.02). Insulin: Yes Test blood sugar(s) 1 x daily. Dx: uncontrolled diabetes (250.02). Insulin: Yes Functional Status Date Assessment Result Facility 04-08-2015 Are you deaf, or do you have serious difficulty hearing No 04/08/2015 9:21 AM Ellen Glaser LPN No [facility] 04-08-2015 Are you blind, or do you have serious difficulty seeing, even when wearing glasses No 04/08/2015 9:21 AM Ellen Glaser LPN No [facility] 04-08-2015 Do you have serious difficulty walking or climbing stairs No 04/08/2015 9:21 AM Ellen Glaser LPN No [facility] 04-08-2015 Do you have difficul ty dressing or bathing No 04/08/2015 9:21 AM Ellen Glaser LPN No [facility] 04-08-2015 Because of a physica l, mental, or emotional condition, do you have difficulty doing errands alone such as visiting a physician's office or shopping No 04/08/2015 9:21 AM Ellen Glaser LPN No [facility] Mental Status Date Assessment Result Facility 02-29-2024 Mental Status Orientation Oriented x 4 [facility] 04-08-2015 Because of a physica l, mental, or emotional condition, do you have serious difficulty concentrating, remembering, or making decisions No 04/08/2015 9:21 AM Ellen Glaser LPN No [facility] Clinical Notes 02-03-2014 to 05-22-2025 Note Date & Type Note Facility 05-22-2025 Progress note [facility] 05-22-2025 Progress note Note Date/Time May 22, 2025 10:45am [facility] [address] [place] [id number] OFFICE VISIT Date of Service: 05/22/25 MR#: [id number] Acct: [id number] Name: SHEILA CROWE Rep #: [id number] : 1980 Provider: Dr. Delvin Saleh MD Age/Sex: 44/F Location: [facility].NEETU Status: Signed Intake Vital Signs 04/21/25 11:00 05/21/25 11:11 05/22/25 10:24 Height 5 ft 8 in 5 ft 8 in 5 ft 8 in Weight: 194 lb 4 oz 187 lb BMI 29.5 28.4 Intake Visit Reasons: LEFT SHOULDER Chief Complaint: Left shoulder pain Accompanied by: Self Is patient in pain?: Yes Pain scale (1-10): 5 Allergies Penicillins (PCN) Allergy (Verified 05/22/25 10:26) Anaphylaxis Medications ?Medication ?Instructions ?Recorded ?Confirmed ?Type buprenorphine HCl 150 mcg buccal 150 mcg BC BID PAIN 0 12/20/19 05/22/25 History film carvedilol 25 mg tablet 50 mg PO BID 12/20/19 History cyclobenzaprine 5 mg tablet 5 mg PO TID PRN MUSCLE REL AXANT 12/20/19 05/22/25 History diclofenac sodium 1 % topical gel 100 g TP PRN PRN Elvin n Or Fever 12/20/19 05/22/25 History furosemide 40 mg tablet 60 mg PO DAILY 12/20/1904/30 History gabapentin 600 mg tablet,extended 600 mg PO Q4H 05/22/25 History release 24 hr lamotrigine 200 mg tablet 400 mg PO DAILY 12/20/19 History losartan 25 mg tablet 25 mg PO DAILY 12/20/1904/30 History metformin 500 mg tablet,extended 500 mg PO DAILY DIABE JESI 12/20/19 05/22/25 History release 24 hr perphenazine 2 mg tablet 2 mg PO DAILY 12/20/1905/22 History topiramate 200 mg capsule 500 mg PO QHS MOOD STABILIZE R 12/20/19 05/22/25 History sprinkle,extended release 24 hr valbenazine 80 mg capsule 80 mg PO DAILY GEODONE SE 05/22/25 History ziprasidone HCl 80 mg capsule 100 mg PO DAILY BIPOLAR 12/20/19 05/22/25 History trazodone 100 mg tablet mg PO 05/22/25 05/22/25 Hist ory Have you fallen in the past year?: No PFSH Medical History (Updated 05/22/25 @ 10:27 by Mahad Saleh MD) Impingement of left shoulder Left rotator cuff tear Left shoulder pain Social History Smoking Status: Former smoker HPI LEFT SHOULDER Details: This documentation accurately reflects the service provided and the decisions made by me, Dr. Mahad Saleh MD 05/22/25 1024. Part of today?s visit was documented by [ ], acting as scribe. SHEILA CROWE is a 44 year old F here today for FU L shoulder MRI. on disability for mental health, did PT for 15 visits, failed a cortisone injection. worse with even light lifting. Ortho Exam General General: Yes no acute distress Neurologic: Yes alert and Yes oriented x3 Psychologic: Yes reasonable and appropriate Supplemental Info [facility] Imaging Services [address] [place] [address] [id number] Upper Ext Joint Only(Routine) MR#: [id number] Acct: [id number] Name: SHEILA CROWE Rep #: [id number] : 1980 F 44 From: Tomer Arauz MD PCP: Dr. Torres Yao MD Status: REG CLI Study: Upper Ext Joint Only(Routine) Date of Exam: 05/20/25 Exam# [id number] Ordering Dr: Mahad Saleh MD PROCEDURE: UPPER EXT JOINT ONLY(ROUTINE) 05/20/2025 REASON FOR EXAM: PAIN, RULE OUT CUFF TEAR TECHNIQUE: UPPER EXT JOINT ONLY(ROUTINE) Multiplanar and multisequence images were obtained without IV contrast administration. COMPARISON: April 21, 2025 x-ray FINDINGS: Bone Marrow: There is no bony contusion or occult fracture. Rotator cuff: There is no muscular atrophy. There is a full-thickness, full width tear of the supraspinatus with 1.8 cm of retraction. There is moderate distal infraspinatus tendinopathy and subscapularis tendinopathy without full-thickness tear or retraction. The teres minor appears intact. AC joint: The AC joint is aligned without evidence of separation. There is a type 3 acromion with impingement configuration. Labrum: The labrum appears intact. Biceps tendon: The biceps tendon is present in the biceps tendon groove, with intact anchors. Effusion: There is a small joint effusion which extends into the subacromial subdeltoid bursa. MRI/Upper Ext Joint Only(Routine) IMPRESSION: There is a full-thickness, full width tear of the supraspinatus with 1.8 cm of retraction. There is moderate distal infraspinatus tendinopathy and subscapularis tendinopathy without full-thickness tear or retraction. There is a type 3 acromion with impingement configuration. There is a small joint effusion which extends into the subacromial subdeltoid bursa. Reading Location: [facility] Reilly independently reviewed the imaging. Concur with radiologist report. Coding Level of Care Code Off vis,est,level 4 Diagnoses Left shoulder pain M25.512 Left rotator cuff tear M75.102 Impingement of left shoulder M25.812 Assessment and Plan Assessment and Plan (1) Left shoulder pain: Status: Acute Plan: 44-year-old female with a left full-thickness 1.8 cm supraspinatus rotator cuff tear with a type III acromion. The surgical option here would be left shoulder arthroscopy, subacromial decompression, rotator cuff repair. Risks alternativesbenefits discussed with that as well as the recovery time 3 to 6 months before going back to full activities in 2 weeks in a sling postoperatively. There doeslook to be some tendon still attached to the footprint making this more so the type II or trans tendon tear / near the musculotendinous junction type tear which can make the repair more challenging with a higher risk of re tears or delayed or nonhealing, so therefore have offered and plan to do dermal allograftaugmentation with arthrex cuffmend patch. Patient understands wished to go ahead with left shoulder arthroscopy, subacromial decompression, rotator cuff repair, allograft tissue augmentation. Pros and cons risks and benefits were discussed with the patient including but not limited to infection, pain, stiffness, bleeding, damage to surrounding structures, neurovascular injury, recurrence or retear, failure or wear of hardware or fixation, instability, fracture, deep vein thrombosis and pulmonary embolism, anesthetic risks, , patient dissatisfaction, need for further surgery and other risks. Patient understood and wished to proceed with surgery,and signed the informed consent documentation. Patient counselled on non-operative and operative means of treating shoulder pain. Conservative options include but not limited to: 1. Rest and Activity Modification: Giving your shoulder time to heal by avoidingmovements that cause pain can help. This may involve limiting overhead activities or heavy lifting. 2. Physical Therapy: A physical therapist can guide you through exercises that strengthen the muscles around the shoulder, improve flexibility, and reduce strain on the rotator cuff tendon. 3. Ice and Heat Therapy: Applying ice to the shoulder can help reduce swelling and pain, especially after activity. Heat can be helpful to relax tense muscles and improve blood flow before exercises. 4. Anti-Inflammatory Medications: Ponq-fwo-rmewrsa medications like ibuprofen ornaproxen can help reduce pain and inflammation in the tendon. 5. Corticosteroid Injections: If the pain is more severe, a steroid injection can reduce inflammation in the shoulder and provide relief for a longer period. 6. Platelet-Rich Plasma (PRP) Injection: This treatment involves using your own blood to promote healing in the tendon. The plasma is rich in growth factors that can encourage tissue repair. 7. TENS (Transcutaneous Electrical Nerve Stimulation): This therapy uses a smallelectrical current to help manage pain and promote healing by stimulating nerves. (2) Left rotator cuff tear: Status: Acute (3) Impingement of left shoulder: Status: Acute Clinical Quality Measures Falls Risk Screening/Assistive Devices Have you fallen in the past year?: No 05/22/25 1045 <Electronically signed by Mahad castro MD> Date _ Mahad Saleh MD [facility] Signature: Date (if applicable) CC: ~ [place] [employer] Work Phone: [phone] 272-886707-18-2025 NoteHNO ID: [id number] Author: TORRES YAO MD Service: ? Author Type: Physician Type: Progress Notes Filed: 05/16/2025 13:58 Note Text: Sheila Crowe is a 44-year-old female with a history of anxiety, depression, and insomnia, presenting for increased panic attacks and sleep disturbances following a traumatic event. HPI Anxiety and Depression: - Recent increase in panic attacks and sleep disturbances, sleeping only a few hours per night. - Decreased appetite and significant fatigue. - Traumatic event involving the of her dog two weeks ago, which she witnessed. - Dog was a rescue with anxiety, had been with Sheila for nine years. - Experiencing intrusive thoughts and flashbacks of the event. - Psychiatrist is on maternity leave; next appointment scheduled for June. - Previously on trazodone for sleep, last taken over a year ago. - High tolerance to medications; has been on Geodon and trazodone concurrently in the past. - Current medications include Geodon, topiramate, Ingrezza, Cogentin, and Lamictal. - Recent negative experience with a counselor; seeking new counseling options. - Engages in daily exercise, currently walking two miles a day with her mother. - Previously exercised an hour a day; now limited due to fatigue and grief. MEDICATIONS: Current Outpatient Medications Medication Sig meloxicam (MOBIC) 15 mg tablet Take 0.5-1 tablets by mouth once daily as needed for pain. pregabalin (LYRICA) 150 mg capsule Take 1 capsule by mouth three times a day for 120 days. losartan (COZAAR) 25 mg tablet Take 25 mg by mouth once daily. diclofenac sodium-menthol (DITHOL) 1.5-10 % combo pack Apply to affected area. ketoconazole (NIZORAL) 2 % shampoo [id number] carb-vit K (WOMEN'S MULTIVITAMIN) 18 mg-400 mcg- 500 mg-50 mcg tab Women's Multivitamin 18 mg-400 mcg- 500 mg-50 mcg tablet spironolactone (ALDACTONE) 25 mg tablet Take 25 mg by mouth three times a day. ziprasidone (GEODON) 20 mg capsule Take 20 mg by mouth three times daily. (Patient taking differently: Take 20 mg by mouth three times a day as needed.) ziprasidone (GEODON) 60 mg capsule Take 120 mg by mouth once daily. topiramate (TOPAMAX) 100 mg tablet Take 100 mg by mouth once daily. topiramate (TOPAMAX) 200 mg tablet Take 400 mg by mouth once daily. valbenazine (INGREZZA) 80 mg capsule Take 80 mg by mouth once daily. benztropine (COGENTIN) 2 mg tablet Take 2 mg by mouth four times daily. lamoTRIgine (LAMICTAL) 200 mg tablet Take 400 mg by mouth once daily. (Patient taking differently: Take 200 mg by mouth once daily.) traZODone (DESYREL) 100 mg tablet Use one half to one tab at bedtime as needed. No current facility-administered medications for this visit. ALLERGIES: ALLERGIES Allergen Reactions Clindamycin Diarrhea Hives, cramping Levaquin [Levofloxa* Swelling Penicillins Rash Sulfa (Sulfonamide * Unknown Zithromax [Azithrom* Itching PAST MEDICAL HISTORY Diagnosis Date Allergic rhinitis due to other allergen Bipolar I disorder, most recent episode (or current) unspecified hosp 04 mutile suicide attempts/Dr. Jenkins Hypercalcemia Migraine without aura Morbid obesity (HCC) stated BMI HT: 68 WT: 375 Myalgia and myositis, unspecified Other specified cardiac dysrhythmias(427.89) PMH - PAST MEDICAL HISTORY OF MONO Unspecified essential hypertension PAST SURGICAL HISTORY Procedure Laterality Date ADENOIDECTOMY PRIMARY Adenoidectomy COLONOSCOPY W/BIOPSY SINGLE/MULTIPLE 12/23/2019 EXTRACTION, ERUPTED TOOTH OR EXPOSED ROOT (ELEVATION AND/OR FORCEPS REMOVAL) 1995 [place] teeth TONSILLECTOMY PRIMARY/SECONDARY Tonsillectomy FAMILY HISTORY Problem Relation Age of Onset Rheumatologic disease Mother other (stiff persons disease) Father other (autoimmune disorder) Father Diabetes Brother Type 1, age 40 Diabetes Maternal Grandmother Diabetes Paternal Grandmother Heart Paternal Grandmother Social History Tobacco Use Smoking status: Former Current packs/day: 0.00 Types: Cigarettes Quit date: 06/16/2008 Years since quittin.9 Smokeless tobacco: Never Vaping Use Vaping status: Never Used Substance Use Topics Alcohol use: No Drug use: No Reviewed current medications, allergies, past medical history, surgical history, family history and social history today. REVIEW OF SYSTEMS Constitutional: (+) insomnia, (+) fatigue, (+) weight loss Gastrointestinal: (+) decreased appetite Psychiatric: (+) panic attacks, (+) flashbacks HEALTH MAINTENANCE: Reviewed health maintenance issues today and recommended the following in detail. Medicare Annual Wellness Visit Never done LAB REVIEWED: VITALS: BP 120/72 Pulse 77 Wt 84.8 kg (187 lb) LMP 02/22/2024 SpO2 99% BMI 28.43 kg/m? Last 4 Encounter Wt Readings: Date: Wt: 05/16/2025 84.8 kg (187 lb) 05/05/2025 88.9 kg (196 lb) 03/14/2025 83 kg (183 lb) 02/14/2025 83.9 kg ( (more content not included)...[facility] 05-16-2025 History of Present illness Narrative* Torres Yao MD - 05/16/2025 1:58 PM EDT Sheila Crowe is a 44-year-old female with a history of anxiety, depression, and insomnia, presenting for increased panic attacks and sleep disturbances following a traumatic event. HPI Anxiety and Depression: - Recent increase in panic attacks and sleep disturbances, sleeping only a few hours per night. - Decreased appetite and significant fatigue. - Traumatic event involving the of her dog two weeks ago, which she witnessed. - Dog was a rescue with anxiety, had been with Sheila for nine years. - Experiencing intrusive thoughts and flashbacks of the event. - Psychiatrist is on maternity leave; next appointment scheduled for June. - Previously on trazodone for sleep, last taken over a year ago. - High tolerance to medications; has been on Geodon and trazodone concurrently in the past. - Current medications include Geodon, topiramate, Ingrezza, Cogentin, and Lamictal. - Recent negative experience with a counselor; seeking new counseling options. - Engages in daily exercise, currently walking two miles a day with her mother. - Previously exercised an hour a day; now limited due to fatigue and grief. MEDICATIONS: Current Outpatient Medications Medication Sig meloxicam (MOBIC) 15 mg tablet Take 0.5-1 tablets by mouth once daily as needed for pain. pregabalin (LYRICA) 150 mg capsule Take 1 capsule by mouth three times a day for 120 days. losartan (COZAAR) 25 mg tablet Take 25 mg by mouth once daily. diclofenac sodium-menthol (DITHOL) 1.5-10 % combo pack Apply to affected area. ketoconazole (NIZORAL) 2 % shampoo uq-an-ivxv-FA-Ca carb-vit K (WOMEN'S MULTIVITAMIN) 18 mg-400 mcg- 500 mg-50 mcg tab Women's Multivitamin 18 mg-400 mcg- 500 mg-50 mcg tablet spironolactone (ALDACTONE) 25 mg tablet Take 25 mg by mouth three times a day. ziprasidone (GEODON) 20 mg capsule Take 20 mg by mouth three times daily. (Patient taking differently: Take 20 mg by mouth three times a day as needed.) ziprasidone (GEODON) 60 mg capsule Take 120 mg by mouth once daily. topiramate (TOPAMAX) 100 mg tablet Take 100 mg by mouth once daily. topiramate (TOPAMAX) 200 mg tablet Take 400 mg by mouth once daily. valbenazine (INGREZZA) 80 mg capsule Take 80 mg by mouth once daily. benztropine (COGENTIN) 2 mg tablet Take 2 mg by mouth four times daily. lamoTRIgine (LAMICTAL) 200 mg tablet Take 400 mg by mouth once daily. (Patient taking differently: Take 200 mg by mouth once daily.) traZODone (DESYREL) 100 mg tablet Use one half to one tab at bedtime as needed. No current facility-administered medications for this visit. ALLERGIES: ALLERGIES Allergen Reactions Clindamycin Diarrhea Hives, cramping Levaquin [Levofloxa* Swelling Penicillins Rash Sulfa (Sulfonamide * Unknown Zithromax [Azithrom* Itching PAST MEDICAL HISTORY Diagnosis Date Allergic rhinitis due to other allergen Bipolar I disorder, most recent episode (or current) unspecified hosp 04 mutile suicide attempts/Dr. Jenkins Hypercalcemia Migraine without aura Morbid obesity (HCC) stated BMI HT: 68 WT: 375 Myalgia and myositis, unspecified Other specified cardiac dysrhythmias(427.89) PMH - PAST MEDICAL HISTORY OF MONO Unspecified essential hypertension PAST SURGICAL HISTORY Procedure Laterality Date ADENOIDECTOMY PRIMARY <AGE 11 1994 Adenoidectomy COLONOSCOPY W/BIOPSY SINGLE/MULTIPLE 12/23/2019 EXTRACTION, ERUPTED TOOTH OR EXPOSED ROOT (ELEVATION AND/OR FORCEPS REMOVAL) 1995 [place] teeth TONSILLECTOMY PRIMARY/SECONDARY <AGE 11 1994 Tonsillectomy FAMILY HISTORY Problem Relation Age of Onset Rheumatologic disease Mother other (stiff persons disease) Father other (autoimmune disorder) Father Diabetes Brother Type 1, age 40 Diabetes Maternal Grandmother Diabetes Paternal Grandmother Heart Paternal Grandmother Social History Tobacco Use Smoking status: Former Current packs/day: 0.00 Types: Cigarettes Quit date: 06/16/2008 Years since quittin.9 Smokeless tobacco: Never Vaping Use Vaping status: Never Used Substance Use Topics Alcohol use: No Drug use: No Reviewed current medications, allergies, past medical history, surgical history, family history andsocial history today. REVIEW OF SYSTEMS Constitutional: (+) insomnia, (+) fatigue, (+) weight loss Gastrointestinal: (+) decreased appetite Psychiatric: (+) panic attacks, (+) flashbacks HEALTH MAINTENANCE: Reviewed health maintenance issues today and recommended the following in detail. Medicare Annual Wellness Visit Never done LAB REVIEWED: VITALS: BP 120/72 Pulse 77 Wt 84.8 kg (187 lb) LMP 02/22/2024 SpO2 99% BMI 28.43 kg/m Last 4 Encounter Wt Readings: Date: Wt: 05/16/2025 84.8 kg (187 lb) 05/05/2025 88.9 kg (196 lb) 03/14/2025 83 kg (183 lb) 02/14/2025 83.9 kg (185 lb) PHYSICAL EXAMINATION: GENERAL: NAD, alert and oriented SKIN: unremarkable, no rash or skin lesions. LUNGS: Clear to auscultation bilaterally, no wheezes/rhonchi/rales. HEART: Regular rate and rhythm, no murmurs. No ectopy. EXTREMITIES: Normal, No deformities, No skin discoloration, No edema. NEURO: Awake, alert and oriented x3, cranial nerves II-XII grossly intact, normal gait, no involuntary motions ASSESSMENT AND PLAN 1. Chronic insomnia (F51.04) - Experiencing significant sleep disturbances, sometimes only sleeping a few hours per night. - Previously managed with trazodone, last taken over a year ago. - Prescribed trazodone 100 mg, instructed to take 1/2 to 1 tablet at bedtime as needed. - Discussed potential side effects and interactions with current medications, including Geodon. Sus tolerated them together in the past. - Follow-up in two weeks to assess effectiveness; patient to contact if symptoms worsen. 2. Generalized anxiety disorder (F41.1) 3. Panic disorder (F41.0) - Increased anxiety and panic attacks following a traumatic event involving the of her dog. - Discussed short-term use of antihistamines like hydroxyzine for daytime anxiety if needed. - Provided resources for behavioral health support and counseling. - Patient to explore new counseling options; follow-up with current psychiatrist scheduled in June. 4. Bipolar I disorder (HCC) (F31.9) - Currently managed with Geodon, topiramate, Ingrezza, Cogentin, and Lamictal. - No changes to current medication regimen. - Monitor for any mood destabilization; patient to report any significant changes. (See patient after visit summary for additional instructions to patient) Torres Yao MD Recording using [employer] software for draft documentation of the visit was discussed with the patient/authorized client support representative; all questions welcomed and answered. Patient/authorized client support representative agreed to proceed documented in this encounterMer[facility]07-18-[facility]25 Instructions* Patient Instructions* Torres Yao MD - 05/16/2025 1:56 PM EDT [facility] - Insurance Therapy/Counseling [facility] [address] [place] [address] [facility] [address] [place] [address] [employer] [address] [address] [facility] [address] [place] [address] [facility] [address] [place] [address] [facility] [address] [address] [employer] [address] [facility] [place] [address] [facility] [address] [place] [address] documented in this encounterMercy Health Tiffin [facility]07-17-2025 Instructions* Patient Instructions* Freeman Sarabia PA-C - 05/15/2025 11:43 AM EDT The OARRS report has been reviewed and is consistent with the patients medical history and medication intake. Continue with the pregabalin, meloxicam, and diclofenac gel. Continue with the PT exercises on home on your own FU with ortho about the left shoulder pain Continue using the TENS unit. Continue doing your yoga and strengthening exercises, but make sure you give your body a chance to rest between sessions. FU in the office in 3 months Continue to FU with the net developer architect for the neuropathy. FU with your psychiatrist regarding the sleep/miguel issues Continue with the kinesiology tape/roller ball on the feet. You can use CBD oil, just avoid THC, and delta 8 and delta 9. FU with Dr. Saleh with [facility] for the upcoming left shoulder MRI. Supervising Physiciain - Dr. Isaac Cannon MD documented in this encounterMercy Health Tiffin [facility]07-17-2025 NoteHNO ID: [id number] Author: FREEMAN SARABIA PA-C Service: ? Author Type: Physician Director Of Restaurants Type: Progress Notes Filed: 05/15/2025 12:06 Note Text: This note was created using NoteWriter. Subjective Sheila Crowe is a 44 year old female. The patient primarily being seen for back, bilateral knee and shoulder, and generalized body pain Patient was last seen on: 05/15/25 At that time, the treatment plan was: see notes Current Meds: pregabalin - pm, meloxicam - yesterday Efficacy: help Side effects: denies TENS unit: yes How often used: daily Benefit: helps Physical Therapy: 01/2025 [facility] Last UDS: not on narcotics Last injection: 09/17/24 - bilateral subacromial bursa OARRS reviewed At the present time, the patient reports benefit with her present analgesic therapy. She denies any adverse effects. Since her previous visit, she denies any hospitalizations or ER visits. She is scheduled for a left shoulder MRI on Monday that was ordered by Dr. Saleh at [facility] 03/14/2025 05/15/2025 INTAKE PAIN ASSESSMENT Are you having pain associated with your visit today? No Yes, Provider notified Pain Scales Verbal (Numeric Rating or Visual Analog Scale) Pain Level 5 Pain Location Generalized Description Aching;Shooting;Pressure;Tingling;Tightness Duration Amount of Time 6 Duration Units Years Frequency Continuous Intervention/Comfort measure Medication;Relaxation 02/14/2025 05/15/2025 Pain Disability Index Family/Home Responsibilities: This category includes chores or duties performed around the house (e.g. yard work), errands or favors for other family members (e.g. driving the children to school) 3 10 Total Disability Recreation: This category includes hobbies, sports, and other similar leisure time activities 4 8 Social Activity: This category refers to activities which involve participation with friends and acquaintances, other than family members. It includes parties, theater, concerts, dinning out, and other social functions 3 3 Occupation: This category refers to activities that are a part of or directly related to ones' job. This includes non-paying jobs as well, such as that of a housewife or volunteer worker 6 6 Sexual Behavior: This category refers to the frequency and quality of one's sex life 0 No disability 0 No disability Self Care: This category includes activities which involve personal maintenance and independent daily living (e.g. taking a shower, driving, getting dress, etc) 4 5 Life Support Activity: This category refers to basic-life supporting behaviors such as eating, sleeping, and breathing 1 7 PDI Score 21 39 PAST MEDICAL HISTORY Diagnosis Date Allergic rhinitis due to other allergen Bipolar I disorder, most recent episode (or current) unspecified hosp 04 mutile suicide attempts/Dr. Jenkins Hypercalcemia Migraine without aura Morbid obesity (HCC) stated BMI HT: 68 WT: 375 Myalgia and myositis, unspecified Other specified cardiac dysrhythmias(427.89) PMH - PAST MEDICAL HISTORY OF MONO Unspecified essential hypertension PAST SURGICAL HISTORY Procedure Laterality Date ADENOIDECTOMY PRIMARY Adenoidectomy COLONOSCOPY W/BIOPSY SINGLE/MULTIPLE 12/23/2019 EXTRACTION, ERUPTED TOOTH OR EXPOSED ROOT (ELEVATION AND/OR FORCEPS REMOVAL) 1995 [place] teeth TONSILLECTOMY PRIMARY/SECONDARY Tonsillectomy Social History Tobacco Use Smoking status: Former Current packs/day: 0.00 Types: Cigarettes Quit date: 06/16/2008 Years since quittin.9 Smokeless tobacco: Never Vaping Use Vaping status: Never Used Substance Use Topics Alcohol use: No Drug use: No Review of Systems Constitutional: Negative for fever and unexpected weight change. Musculoskeletal: Positive for back pain. +back pain, joint pain, muscle cramps/weakness, stiffness, arthritis, and leg pain with exertion. Objective BP 132/83 (BP Site: Left Arm, BP Position: Sitting) Pulse 74 Resp 16 LMP 02/22/2024 SpO2 100% Physical Exam Vitals and nursing note reviewed. Constitutional: Appearance: Normal appearance. She is well-developed, well-groomed and overweight. HENT: Head: Normocephalic and atraumatic. Right Ear: Hearing normal. Left Ear: Hearing normal. Eyes: Conjunctiva/sclera: Conjunctivae normal. Comments: Wearing glasses Musculoskeletal: Comments: The patient walks with a normal gait. There is tenderness to palpation in the cervical and lumbar region with spasms noted in the trapezius, paraspinal, and latissimus dorsi muscles. She has tenderness noted over the right SI joint Strength is 5/5 throughout. Sensation is intact to light touch throughout. SLR is negative. She has tenderness to palpation in the knees bilaterally. There is tenderness noted in the left shoulder over the glenohumoral joint. ROM is decreased secondary to pain with external rotation and abduction. Lupe (more content not included)...[facility]07-17-[facility] History of Present illness Narrative* Freeman Sarabia PA-C - 05/15/2025 11:40 AM EDT This note was created using [email or web address] Subjective Sheila Crowe is a 44 year old female. The patient primarily being seen for back, bilateral knee and shoulder, and generalized body pain Patient was last seen on: 05/15/25 At that time, the treatment plan was: see notes Current Meds: pregabalin - pm, meloxicam - yesterday Efficacy: help Side effects: denies TENS unit: yes How often used: daily Benefit: helps Physical Therapy: 01/2025 [facility] Last UDS: not on narcotics Last injection: 09/17/24 - bilateral subacromial bursa OARRS reviewed At the present time, the patient reports benefit with her present analgesic therapy. She denies anyadverse effects. Since her previous visit, she denies any hospitalizations or ER visits. She is scheduled for a left shoulder MRI on Monday that was ordered by Dr. Saleh at [facility] 03/14/2025 05/15/2025 INTAKE PAIN ASSESSMENT Are you having pain associated with your visit today? No Yes, Provider notified Pain Scales Verbal (Numeric Rating or Visual Analog Scale) Pain Level 5 Pain Location Generalized Description Aching;Shooting;Pressure;Tingling;Tightness Duration Amount of Time 6 Duration Units Years Frequency Continuous Intervention/Comfort measure Medication;Relaxation 02/14/2025 05/15/2025 Pain Disability Index Family/Home Responsibilities: This category includes chores or duties performed around the house (e.g. yard work), errands or favors for other family members (e.g. driving the children to school) 3 10 Total Disability Recreation: This category includes hobbies, sports, and other similar leisure time activities 4 8 Social Activity: This category refers to activities which involve participation with friends and acquaintances, other than family members. It includes parties, theater, concerts, dinning out, and other social functions 3 3 Occupation: This category refers to activities that are a part of or directly related to ones' job.This includes non-paying jobs as well, such as that of a housewife or volunteer worker 6 6 Sexual Behavior: This category refers to the frequency and quality of one's sex life 0 No disability 0 No disability Self Care: This category includes activities which involve personal maintenance and independent daily living (e.g. taking a shower, driving, getting dress, etc) 4 5 Life Support Activity: This category refers to basic-life supporting behaviors such as eating, sleeping, and breathing 1 7 PDI Score 21 39 PAST MEDICAL HISTORY Diagnosis Date Allergic rhinitis due to other allergen Bipolar I disorder, most recent episode (or current) unspecified hosp 04 mutile suicide attempts/Dr. Jenkins Hypercalcemia Migraine without aura Morbid obesity (HCC) stated BMI HT: 68 WT: 375 Myalgia and myositis, unspecified Other specified cardiac dysrhythmias(427.89) PMH - PAST MEDICAL HISTORY OF MONO Unspecified essential hypertension PAST SURGICAL HISTORY Procedure Laterality Date ADENOIDECTOMY PRIMARY <AGE 11 1994 Adenoidectomy COLONOSCOPY W/BIOPSY SINGLE/MULTIPLE 12/23/2019 EXTRACTION, ERUPTED TOOTH OR EXPOSED ROOT (ELEVATION AND/OR FORCEPS REMOVAL) 1995 [place] teeth TONSILLECTOMY PRIMARY/SECONDARY <AGE 11 1994 Tonsillectomy Social History Tobacco Use Smoking status: Former Current packs/day: 0.00 Types: Cigarettes Quit date: 06/16/2008 Years since quittin.9 Smokeless tobacco: Never Vaping Use Vaping status: Never Used Substance Use Topics Alcohol use: No Drug use: No Review of Systems Constitutional: Negative for fever and unexpected weight change. Musculoskeletal: Positive for back pain. +back pain, joint pain, muscle cramps/weakness, stiffness, arthritis, and leg pain with exertion. Objective BP 132/83 (BP Site: Left Arm, BP Position: Sitting) Pulse 74 Resp 16 LMP 02/22/2024 SpO2 100% Physical Exam Vitals and nursing note reviewed. Constitutional: Appearance: Normal appearance. She is well-developed, well-groomed and overweight. HENT: Head: Normocephalic and atraumatic. Right Ear: Hearing normal. Left Ear: Hearing normal. Eyes: Conjunctiva/sclera: Conjunctivae normal. Comments: Wearing glasses Musculoskeletal: Comments: The patient walks with a normal gait. There is tenderness to palpation in the cervical and lumbar region with spasms noted in the trapezius, paraspinal, and latissimus dorsi muscles. She has tenderness noted over the right SI joint Strength is 5/5 throughout. Sensation is intact to light touch throughout. SLR is negative. She has tenderness to palpation in the knees bilaterally. There is tenderness noted in the left shoulder over the glenohumoral joint. ROM is decreased secondary to pain with external rotation and abduction. Neurological: Mental Status: She is alert and oriented to person, place, and time. Psychiatric: Attention and Perception: Attention and perception normal. Mood and Affect: Mood and affect normal. Speech: Speech normal. Behavior: Behavior normal. Behavior is cooperative. Thought Content: Thought content normal. Judgment: Judgment normal. Assessment and Plan ASSESSMENT/PLAN: 1. Fibromyalgia - ICD9: 729.1, ICD10: M79.7 (primary diagnosis) - PREGABALIN 150 MG CAPSULE 2. Bilateral shoulder region arthritis - ICD9: 716.91, ICD10: M19.011, M19.012 3. Subacromial bursitis of both shoulders - ICD9: 726.19, ICD10: M75.51, M75.52 4. Primary osteoarthritis of both knees - ICD9: 715.16, ICD10: M17.0 - MELOXICAM 15 MG TABLET 5. Sacroiliitis - ICD9: 720.2, ICD10: M46.1 6. Neuropathy involving both lower extremities - ICD9: 356.9, ICD10: G57.93 7. Generalized anxiety disorder - ICD9: 300.02, ICD10: F41.1 PLAN: The OARRS report has been reviewed and is consistent with the patients medical history and medication intake. Continue with the pregabalin, meloxicam, and diclofenac gel. Continue with the PT exercises on home on your own FU with ortho about the left shoulder pain Continue using the TENS unit. Continue doing your yoga and strengthening exercises, but make sure you give your body a chance to rest between sessions. FU in the office in 3 months Continue to FU with the net developer architect for the neuropathy. FU with your psychiatrist regarding the sleep/miguel issues Continue with the kinesiology tape/roller ball on the feet. You can use CBD oil, just avoid THC, and delta 8 and delta 9. FU with Dr. Saleh with [facility] for the upcoming left shoulder MRI. Freeman Sarabia PA-C documented in this encounterMercy [facility]07-07-2025 Telephone encounter Note * Telephone Encounter - Cass Nelson MA - 05/05/2025 5:14 PM EDT Patient was made aware of the results. Patient verbalizes understanding. Cass Nelson Ma [facility]07-07-2025 Miscellaneous Notes* Telephone Encounter - Cass Nelson MA - 05/05/2025 5:14 PM EDT Patient was made aware of the results. Patient verbalizes understanding. Cass Nelson Ma * Telephone Encounter - Ellen Rene APRN.CNP - 05/05/2025 4:37 PM EDT Please let patient know that bladder ultrasound did not show urinary retention and everything was normal. documented in this encounterMercy Health [facility]07-07-2025 Telephone encounter Note * Telephone Encounter - Ellen Rene APRN.CNP - 05/05/2025 4:37 PM EDT Please let patient know that bladder ultrasound did not show urinary retention and everything was normal. [facility]07-[facility] History of Present illness Narrative* Jaye Marks RT(R) - 05/05/2025 3:00 PM EDT Radiology Service Progress Note PATIENT NAME: Sheila Crowe DATE OF SERVICE: May 05, 2025 TIME: 3:07 PM PATIENT IDENTITY VERIFICATION COMPLETED USING TWO (2) IDENTIFIERS: Name and Date of confirmedby patient verbally. FALL SCREENING: Has the patient had 2 falls in the last year or 1 fall with injury or currently using an Ambulatory Assistive Device (Walker, Cane, Wheelchair, Crutches, etc.)? No PATIENT GENDER DATA: Assigned female at . status: : No status:NO. PATIENT RELEVANT IMPLANT DATA REVIEWED: Yes PATIENT PRESENTS WITH AN IMPLANTABLE OR ATTACHED MANAGEMENT ASSOCIATE: No RADIOLOGY DEPARTMENT: Ultrasound PERIPHERAL IV DATA: Not applicable SIGNED BY: Jaye Marks RDMS, RVT May 05, 2025 3:07 PM documented in this encounterMercy Health [facility]07-07-2025 NoteHNO ID: [id number] Author: JAYE MARKS RT(R) Service: ? Author Type: Technologist Type: Progress Notes Filed: 05/05/2025 15:07 Note Text: Radiology Service Progress Note PATIENT NAME: Sheila Crowe DATE OF SERVICE: May 05, 2025 TIME: 3:07 PM PATIENT IDENTITY VERIFICATION COMPLETED USING TWO (2) IDENTIFIERS: Name and Date of confirmed by patient verbally. FALL SCREENING: Has the patient had 2 falls in the last year or 1 fall with injury or currently using an Ambulatory Assistive Device (Walker, Cane, Wheelchair, Crutches, etc.)? No PATIENT GENDER DATA: Assigned female at . status: : No status: NO. PATIENT RELEVANT IMPLANT DATA REVIEWED: Yes PATIENT PRESENTS WITH AN IMPLANTABLE OR ATTACHED MANAGEMENT ASSOCIATE: No RADIOLOGY DEPARTMENT: Ultrasound PERIPHERAL IV DATA: Not applicable SIGNED BY: Jaye Marks RDMS, BOYD May 05, 2025 3:07 [facility]07-07-2025 Instructions* Patient Instructions* Ellen Rene APRN.GROUP RESERVATIONS COORDINATOR - 05/05/2025 1:07 PM EDT - Continue spironolactone (potassium-sparing water pill) as you have been taking it. - Continue meloxicam for your pain. - Continue Lyrica at your current dose (two pills daily) and do not stop or change it without talking to your pain specialist. - Use stretching exercises, your TENS unit, and ice on sore areas to help manage fibromyalgia discomfort. - Limit high-sodium foods and reduce caffeine intake as tolerated. - Obtain a urinalysis to check for any infection--please provide a urine sample at the lab. - Complete a stat bladder ultrasound (bladder scan) at the specialty building to assess how well your bladder is emptying. documented in this encounterMercy Health [facility]07-07-2025 NoteHNO ID: [id number] Author: ELLEN RENE APRN.CNP Service: ? Author Type: Nurse Practitioner Type: Progress Notes Filed: 05/05/2025 13:09 Note Text: This is a 44 year old female who presents today with: Patient presents with: Edema: Bilateral legs HISTORY OF PRESENT ILLNESS: Sheila Crowe is a 44 year old female. Patient presents with: Edema: Bilateral legs Sehila Crowe is a 44-year-old female with a history of fibromyalgia, presenting for evaluation of weight gain and urinary retention. Weight Gain: - Sheila noticed significant weight gain over the past 10-14 days, described as a lot of it water weight. - Reports increased appetite, attributing it to Duodone. - Taking spironolactone; previously took Lasix over a year ago. - Taking Lyrica for fibromyalgia, but reports it is no longer effective and is considering discontinuation. - Taking topiramate. - Denies excessive thirst or high salt intake. - Diet fluctuates between healthy eating and occasional binges; tries to eat vegetables and lean proteins. - Engages in regular exercise, sometimes described as overexercising. Urinary Retention: - Reports difficulty initiating urination and feeling unable to completely empty the bladder. - Does not feel the urge to urinate even after several hours. - Uses a technique of washing hands with cold water to stimulate urination. - Denies urinary urgency or frequency. - Reports alternating between constipation and diarrhea. Fibromyalgia: - Managed with Lyrica, [facility] - Uses TENS unit and ice for symptom relief. - Also taking meloxicam once a week for pain management. Fatigue: - Reports increased fatigue, possibly related to reducing caffeine intake. - Previously consumed high amounts of caffeine, which she believes contributed to elevated blood pressure. - Has been trying to cut back on caffeine recently. PAST MEDICAL HISTORY: PAST MEDICAL HISTORY Diagnosis Date Allergic rhinitis due to other allergen Bipolar I disorder, most recent episode (or current) unspecified hosp 04 mutile suicide attempts/Dr. Jenkins Hypercalcemia Migraine without aura Morbid obesity (HCC) stated BMI HT: 68 WT: 375 Myalgia and myositis, unspecified Other specified cardiac dysrhythmias(427.89) PMH - PAST MEDICAL HISTORY OF MONO Unspecified essential hypertension PAST SURGICAL HISTORY Procedure Laterality Date ADENOIDECTOMY PRIMARY Adenoidectomy COLONOSCOPY W/BIOPSY SINGLE/MULTIPLE 12/23/2019 EXTRACTION, ERUPTED TOOTH OR EXPOSED ROOT (ELEVATION AND/OR FORCEPS REMOVAL) 1995 [place] teeth TONSILLECTOMY PRIMARY/SECONDARY Tonsillectomy ALLERGIES Clindamycin, Levaquin [Levofloxacin], Penicillins, Sulfa (Sulfonamide Antibiotics), and Zithromax [Azithromycin] MEDICATIONS Current Outpatient Medications Medication Sig losartan (COZAAR) 25 mg tablet Take 25 mg by mouth once daily. meloxicam (MOBIC) 15 mg tablet Take 0.5-1 tablets by mouth once daily as needed for pain. pregabalin (LYRICA) 150 mg capsule Take 1 capsule by mouth three times a day for 120 days. diclofenac sodium-menthol (DITHOL) 1.5-10 % combo pack Apply to affected area. [id number]-rj-rzia-FA-Ca carb-vit K (WOMEN'S MULTIVITAMIN) 18 mg-400 mcg- 500 mg-50 mcg tab Women's Multivitamin 18 mg-400 mcg- 500 mg-50 mcg tablet spironolactone (ALDACTONE) 25 mg tablet Take 25 mg by mouth three times a day. ziprasidone (GEODON) 20 mg capsule Take 20 mg by mouth three times daily. (Patient taking differently: Take 20 mg by mouth three times a day as needed.) ziprasidone (GEODON) 60 mg capsule Take 120 mg by mouth once daily. topiramate (TOPAMAX) 100 mg tablet Take 100 mg by mouth once daily. topiramate (TOPAMAX) 200 mg tablet Take 400 mg by mouth once daily. valbenazine (INGREZZA) 80 mg capsule Take 80 mg by mouth once daily. benztropine (COGENTIN) 2 mg tablet Take 2 mg by mouth four times daily. lamoTRIgine (LAMICTAL) 200 mg tablet Take 400 mg by mouth once daily. (Patient taking differently: Take 200 mg by mouth once daily.) ketoconazole (NIZORAL) 2 % shampoo No current facility-administered medications for this visit. FAMILY HISTORY Problem Relation Age of Onset Rheumatologic disease Mother other (stiff persons disease) Father other (autoimmune disorder) Father Diabetes Brother Type 1, age 40 Diabetes Maternal Grandmother Diabetes Paternal Grandmother Heart Paternal Grandmother Social History Tobacco Use Smoking status: Former Current packs/day: 0.00 Types: Cigarettes Quit date: 06/16/2008 Years since quittin.8 Smokeless tobacco: Never Vaping Use Vaping status: Never Used Substance Use Topics Alcohol use: No Drug use: No REVIEW OF SYSTEMS Constitutional: (+) weight gain, (+) fatigue, (+) increased appetite Respiratory: (+) cough, (?) dyspnea, (?) wheezing Gastrointestinal: (+) constipation, (+) diarrhea (more content not included)...[facility]07-07-2025 History of Present illness Narrative* Ellen Rene APRN.[facility] - 05/05/2025 12:50 PM EDT This is a 44 year old female who presents today with: Patient presents with: Edema: Bilateral legs HISTORY OF PRESENT ILLNESS: Sheila Crowe is a 44 year old female. Patient presents with: Edema: Bilateral legs Sheila Crowe is a 44-year-old female with a history of fibromyalgia, presenting for evaluation of weight gain and urinary retention. Weight Gain: - Sheila noticed significant weight gain over the past 10-14 days, described as a lot of it water weight. - Reports increased appetite, attributing it to Duodone. - Taking spironolactone; previously took Lasix over a year ago. - Taking Lyrica for fibromyalgia, but reports it is no longer effective and is considering discontinuation. - Taking topiramate. - Denies excessive thirst or high salt intake. - Diet fluctuates between healthy eating and occasional binges; tries to eat vegetables and lean proteins. - Engages in regular exercise, sometimes described as overexercising. Urinary Retention: - Reports difficulty initiating urination and feeling unable to completely empty the bladder. - Does not feel the urge to urinate even after several hours. - Uses a technique of washing hands with cold water to stimulate urination. - Denies urinary urgency or frequency. - Reports alternating between constipation and diarrhea. Fibromyalgia: - Managed with Lyrica, prescribed by a pain management provider at [facility]. - Uses TENS unit and ice for symptom relief. - Also taking meloxicam once a week for pain management. Fatigue: - Reports increased fatigue, possibly related to reducing caffeine intake. - Previously consumed high amounts of caffeine, which she believes contributed to elevated blood pressure. - Has been trying to cut back on caffeine recently. PAST MEDICAL HISTORY: PAST MEDICAL HISTORY Diagnosis Date Allergic rhinitis due to other allergen Bipolar I disorder, most recent episode (or current) unspecified hosp 04 mutile suicide attempts/Dr. Jenkins Hypercalcemia Migraine without aura Morbid obesity (HCC) stated BMI HT: 68 WT: 375 Myalgia and myositis, unspecified Other specified cardiac dysrhythmias(427.89) PMH - PAST MEDICAL HISTORY OF MONO Unspecified essential hypertension PAST SURGICAL HISTORY Procedure Laterality Date ADENOIDECTOMY PRIMARY <AGE 11 1994 Adenoidectomy COLONOSCOPY W/BIOPSY SINGLE/MULTIPLE 12/23/2019 EXTRACTION, ERUPTED TOOTH OR EXPOSED ROOT (ELEVATION AND/OR FORCEPS REMOVAL) 1995 [place] teeth TONSILLECTOMY PRIMARY/SECONDARY <AGE 11 1994 Tonsillectomy ALLERGIES Clindamycin, Levaquin [Levofloxacin], Penicillins, Sulfa (Sulfonamide Antibiotics), and Zithromax [Azithromycin] MEDICATIONS Current Outpatient Medications Medication Sig losartan (COZAAR) 25 mg tablet Take 25 mg by mouth once daily. meloxicam (MOBIC) 15 mg tablet Take 0.5-1 tablets by mouth once daily as needed for pain. pregabalin (LYRICA) 150 mg capsule Take 1 capsule by mouth three times a day for 120 days. diclofenac sodium-menthol (DITHOL) 1.5-10 % combo pack Apply to affected area. [id number]-cg-qduy-FA-Ca carb-vit K (WOMEN'S MULTIVITAMIN) 18 mg-400 mcg- 500 mg-50 mcg tab Women's Multivitamin 18 mg-400 mcg- 500 mg-50 mcg tablet spironolactone (ALDACTONE) 25 mg tablet Take 25 mg by mouth three times a day. ziprasidone (GEODON) 20 mg capsule Take 20 mg by mouth three times daily. (Patient taking differently: Take 20 mg by mouth three times a day as needed.) ziprasidone (GEODON) 60 mg capsule Take 120 mg by mouth once daily. topiramate (TOPAMAX) 100 mg tablet Take 100 mg by mouth once daily. topiramate (TOPAMAX) 200 mg tablet Take 400 mg by mouth once daily. valbenazine (INGREZZA) 80 mg capsule Take 80 mg by mouth once daily. benztropine (COGENTIN) 2 mg tablet Take 2 mg by mouth four times daily. lamoTRIgine (LAMICTAL) 200 mg tablet Take 400 mg by mouth once daily. (Patient taking differently: Take 200 mg by mouth once daily.) ketoconazole (NIZORAL) 2 % shampoo No current facility-administered medications for this visit. FAMILY HISTORY Problem Relation Age of Onset Rheumatologic disease Mother other (stiff persons disease) Father other (autoimmune disorder) Father Diabetes Brother Type 1, age 40 Diabetes Maternal Grandmother Diabetes Paternal Grandmother Heart Paternal Grandmother Social History Tobacco Use Smoking status: Former Current packs/day: 0.00 Types: Cigarettes Quit date: 06/16/2008 Years since quittin.8 Smokeless tobacco: Never Vaping Use Vaping status: Never Used Substance Use Topics Alcohol use: No Drug use: No REVIEW OF SYSTEMS Constitutional: (+) weight gain, (+) fatigue, (+) increased appetite Respiratory: (+) cough, (?) dyspnea, (?) wheezing Gastrointestinal: (+) constipation, (+) diarrhea Genitourinary: (+) diminished urinary urge, (+) urinary hesitancy, (+) sensation of incomplete bladder emptying, (?) urinary urgency EXAM: BP 140/78 Pulse 67 Temp 36.4 C (97.6 F) Wt 88.9 kg (196 lb) LMP 02/22/2024 SpO2 99% BMI29.80 kg/m PHYSICAL EXAM: GENERAL: NAD, alert and oriented. SKIN: Unremarkable, no rash or skin lesions. HEAD: Normocephalic. LUNGS: Clear to auscultation bilaterally, no wheezes/rhonchi/rales. HEART: Regular rate and rhythm, no murmurs. No ectopy. EXTREMITIES: Normal, no deformities, no skin discoloration, no edema- no pitting. Blood vessels clearly visible. NEURO: Awake, alert and oriented x3, cranial nerves II-XII grossly intact, normal gait, no involuntary motions. LABS: urinalysis ASSESSMENT/PLAN: 1. Chronic pain syndrome (G89.4) 2. Fibromyalgia (M79.7) - Managed with Lyrica, which is known to cause fluid retention and weight gain. - Patient reports Lyrica is no longer effective and is taking a reduced dose. Will discuss with herpain provider. - Utilizes stretching, TENS unit, and ice for symptom management. - Will send a note to the pain management provider at [facility] regarding the current swelling and concerns about Lyrica's efficacy. 3. Essential hypertension, benign (I10) - Blood pressure measured at 110/66 mmHg during the visit. - Patient reports recent episodes of higher blood pressure, possibly related to fluid retention. - Previously on losartan, which was reduced due to low blood pressure readings. - Advised to continue monitoring blood pressure at home. 4. Urinary retention (R33.9) - Reports decreased urinary frequency and difficulty initiating urination. - Ordered urinalysis to rule out infection. - Ordered stat bladder ultrasound post-void to assess for post-void residual volume. Discussed treatment plan and patient voices understanding. Patient's questions answered appropriately. Medications and potential side effects were discussed and patient voices understanding. Return to the office as scheduled or as needed for worsening/no improvement. Ellen Rene APRN.GROUP RESERVATIONS COORDINATOR documented in this encounterMer[facility] Telephone encounter Note * Telephone Encounter - Ghazala Chiang RN - 05/05/2025 9:31 AM EDT Patient calls to report urinary frequency and bilateral lower leg edema. Nurse triage completed. Both recommendations would be to see provider within 24 hours. Appt scheduled. Care advice reviewed with verbalized understanding. Reason for Disposition Urinating more frequently than usual (i.e., frequency) OR new-onset of the feeling of an urgent need to urinate (i.e., urgency) Answer Assessment - Initial Assessment Questions 1. SYMPTOM: Patent reports frequency but then when goes doesn't feel that she is going as much as usual. Urinating approximately 6x in a 24 hour period. Pushing fluids. Trying for 64 oz in 24 hours. Feels like she is retaining fluid in lower legs bilateral (no redness, warmth, or pain). Feels like she has gained 10-15 lbs in the last several weeks. Denies feeling that her bladder is full. 2. ONSET: One week ago. 3. PAIN: No 4. CAUSE: Patient is not certain reports that she has had this trouble in the past and had to be ondiuretics to get rid of the excess fluids. 5. OTHER SYMPTOMS: No blood in urine, fever, flank pain, pain with urination. Reports felt feverishfor a couple of days but not today. Protocols used: Urinary Sokbyozk-[id number] [facility]07-07-2025 Miscellaneous Notes* Telephone Encounter - Ghazala Chiang RN - 05/05/2025 9:31 AM EDT Patient calls to report urinary frequency and bilateral lower leg edema. Nurse triage completed. Both recommendations would be to see provider within 24 hours. Appt scheduled. Care advice reviewed with verbalized understanding. Reason for Disposition Urinating more frequently than usual (i.e., frequency) OR new-onset of the feeling of an urgent need to urinate (i.e., urgency) Answer Assessment - Initial Assessment Questions 1. SYMPTOM: Patent reports frequency but then when goes doesn't feel that she is going as much as usual. Urinating approximately 6x in a 24 hour period. Pushing fluids. Trying for 64 oz in 24 hours. Feels like she is retaining fluid in lower legs bilateral (no redness, warmth, or pain). Feels like she has gained 10-15 lbs in the last several weeks. Denies feeling that her bladder is full. 2. ONSET: One week ago. 3. PAIN: No 4. CAUSE: Patient is not certain reports that she has had this trouble in the past and had to be ondiuretics to get rid of the excess fluids. 5. OTHER SYMPTOMS: No blood in urine, fever, flank pain, pain with urination. Reports felt feverishfor a couple of days but not today. Protocols used: Urinary [id number] documented in this encounterMercy [facility]06-23-[facility] Evaluation note* Diagnosis Onset Date Resolution Status Admit Date Left shoulder pain acute March 312024 10:59am Impingement of left shoulder acute May 22, 2025 10:19am Left rotator cuff tear acute Ju 2024 10:19am Left shoulder pain acute April 302024 10:19am [facility] [employer] Phone: [phone] Telephone encounter Note* Telephone Encounter - Bertha Flynn LPN - 04/15/2025 4:17 PM EDT Referral fax confirmation showing at 0615. [facility]06-17-2025 Miscellaneous Notes* Telephone Encounter - Bertha Flynn LPN - 04/15/2025 4:17 PM EDT Referral fax confirmation showing at 0615. * Telephone Encounter - Bertha Flynn LPN - 04/15/2025 3:51 PM EDT [facility] received and stated I was supposed to have a referral made for Ortho and they said they never got it, but they did allow me to schedule, so I am but they need the clinicals. Spoke with pt and confirmed information in chart from 02/18/25, explained we will refax the referral. documented in this encounterMercy [facility]06-17-2025 Telephone encounter Note * Telephone Encounter - Bertha Flynn LPN - 04/15/2025 3:51 PM EDT [facility] received and stated I was supposed to have a referral made for Ortho and they said they never got it, but they did allow me to schedule, so I am but they need the clinicals. Spoke with pt and confirmed information in chart from 02/18/25, explained we will refax the referral. [facility]05-16-2025 History of Present illness Narrative* Tati Odell Mammo Tech - 03/14/2025 12:50 PM EDT Radiology Service Progress Note PATIENT NAME: Sheila Crowe DATE OF SERVICE: March 14, 2025 TIME: 1:39 PM PATIENT IDENTITY VERIFICATION COMPLETED USING TWO (2) IDENTIFIERS: Name and Date of confirmedby patient verbally. FALL SCREENING: Has the patient had 2 falls in the last year or 1 fall with injury or currently using an Ambulatory Assistive Device (Walker, Cane, Wheelchair, Crutches, etc.)? No PATIENT GENDER DATA: Assigned female at . status: : No status:NO. PATIENT RELEVANT IMPLANT DATA REVIEWED: Not Applicable PATIENT PRESENTS WITH AN IMPLANTABLE OR ATTACHED MANAGEMENT ASSOCIATE: No RADIOLOGY DEPARTMENT: Mammography PERIPHERAL IV DATA: Not applicable SIGNED BY: Mary Vargas March 14, 2025 1:39 PM documented in this encounterMercy Health [facility]05-16-2025 NoteHNO ID: [id number] Author: TATI ODELL Mammo Tech Service: ? Author Type: We[employer]her [employer] Grader Type: Progress Notes Filed: 03/14/2025 13:39 Note Text: Radiology Service Progress Note PATIENT NAME: Sheila Crowe DATE OF SERVICE: March 14, 2025 TIME: 1:39 PM PATIENT IDENTITY VERIFICATION COMPLETED USING TWO (2) IDENTIFIERS: Name and Date of confirmed by patient verbally. FALL SCREENING: Has the patient had 2 falls in the last year or 1 fall with injury or currently using an Ambulatory Assistive Device (Walker, Cane, Wheelchair, Crutches, etc.)? No PATIENT GENDER DATA: Assigned female at . status: : No status: NO. PATIENT RELEVANT IMPLANT DATA REVIEWED: Not Applicable PATIENT PRESENTS WITH AN IMPLANTABLE OR ATTACHED MANAGEMENT ASSOCIATE: No RADIOLOGY DEPARTMENT: Mammography PERIPHERAL IV DATA: Not applicable SIGNED BY: Tati Jeramie [employer] March 14, 2025 1:39 [facility]05-16-2025 NoteHNO ID: [id number] Author: TORRES YAO MD Service: ? Author Type: Physician Type: Progress Notes Filed: 03/14/2025 11:01 Note Text: Sheila is a 44-year-old female with a history of bipolar disorder, fibromyalgia, and neuropathy, presenting for an annual wellness visit, with additional concerns about eating disorder management and left shoulder pain. HPI Annual Wellness Exam: - Last colonoscopy on 12/19/[address] Trimble; prep described as fair. - Mammogram ordered. - Denies chest pain, dyspnea, abdominal pain, hematochezia, or melena. - Reports improved sleep quality. Eating Disorder: - Struggling with eating disorder; lost 10 lbs in the last 10 days, partially attributed to water weight. - Engages in binge eating, fasting, and excessive exercise. - Previously maintained weight but recently gained some weight, leading to increased efforts to lose weight before today's visit. - Currently seeing a counselor, but feels the counseling is ineffective. - Psychiatrist recommended counseling but noted a lack of local specialists in eating disorders. - Sheila reads books on eating disorders and tries to follow advice on eating regular meals. - Fearful of gaining weight due to a history of losing 300 lbs. - On multiple medications for bipolar disorder that increase hunger, including Geodon. - Recent increase in Geodon dosage led to strange behaviors and side effects, including toe dystonia. - Denies self-harm or suicidal ideation. - Experiences mixed episodes with rapid mood changes. - Psychiatrist recently seen; next appointment uncertain due to psychiatrist's maternity leave and upcoming skilled nursing next fall. - Next psychology appointment in a week; Sheila expresses dissatisfaction with current counselor, stating sessions are unproductive. - Practices mindfulness and meditation independently. - Interested in a program called [employer] [facility] that offers online counseling. encouraged her to look into that as a consideration. Left Shoulder Pain: - Referred to orthopedics for left shoulder pain. - Previous diagnosis of bursitis; received an injection and completed 15 physical therapy sessions without relief. - Pain with abduction and other movements. Neuropathy: - Neuropathy in feet reportedly worsening, with increased numbness but persistent pain. - Able to walk 10,000 steps a day, which was previously not possible. - Uses a ball with nubs to roll under feet for pain relief; reports decreased sensation. - Neurologist advised that neuropathy will not affect ability to walk. Fibromyalgia: - Fibromyalgia exacerbated by over-exercising. Hypertension: - Last seen by cardiology; antihypertensive medication dosage was reduced. - Believes stress may be contributing to elevated blood pressure readings. MEDICATIONS: Current Outpatient Medications Medication Sig losartan (COZAAR) 25 mg tablet Take 25 mg by mouth once daily. meloxicam (MOBIC) 15 mg tablet Take 0.5-1 tablets by mouth once daily as needed for pain. pregabalin (LYRICA) 150 mg capsule Take 1 capsule by mouth three times a day for 120 days. ketoconazole (NIZORAL) 2 % shampoo [id number]-mr-xwbu-FA-Ca carb-vit K (WOMEN'S MULTIVITAMIN) 18 mg-400 mcg- 500 mg-50 mcg tab Women's Multivitamin 18 mg-400 mcg- 500 mg-50 mcg tablet spironolactone (ALDACTONE) 25 mg tablet Take 25 mg by mouth three times a day. ziprasidone (GEODON) 60 mg capsule Take 120 mg by mouth once daily. topiramate (TOPAMAX) 100 mg tablet Take 100 mg by mouth once daily. topiramate (TOPAMAX) 200 mg tablet Take 400 mg by mouth once daily. valbenazine (INGREZZA) 80 mg capsule Take 80 mg by mouth once daily. benztropine (COGENTIN) 2 mg tablet Take 2 mg by mouth four times daily. lamoTRIgine (LAMICTAL) 200 mg tablet Take 400 mg by mouth once daily. diclofenac sodium-menthol (DITHOL) 1.5-10 % combo pack Apply to affected area. ziprasidone (GEODON) 20 mg capsule Take 20 mg by mouth three times daily. No current facility-administered medications for this visit. ALLERGIES: ALLERGIES Allergen Reactions Clindamycin Diarrhea Hives, cramping Levaquin [Levofloxa* Swelling Penicillins Rash Sulfa (Sulfonamide * Unknown Zithromax [Azithrom* Itching PAST MEDICAL HISTORY Diagnosis Date Allergic rhinitis due to other allergen Bipolar I disorder, most recent episode (or current) unspecified hosp 04 mutile suicide attempts/Dr. Jenkins Hypercalcemia Migraine without aura Morbid obesity (HCC) stated BMI HT: 68 WT: 375 Myalgia and myositis, unspecified Other specified cardiac dysrhythmias(427.89) PMH - PAST MEDICAL HISTORY OF MONO Unspecified essential hypertension PAST SURGICAL HISTORY Procedure Laterality Date ADENOIDECTOMY PRIMARY Adenoidectomy COLONOSCOPY W/BIOPSY SINGLE/MULTIPLE 12/23/2019 EXTRACTION, ERUPTED TOOTH OR EXPOSED ROOT (ELEVATION AND/OR FORCEPS REMOVAL) 1995 [place] teeth TONSILLECTOMY PRIMARY/SECONDA (more content not included)...[facility]05-16-2025 History of Present illness Narrative* Torres Yao MD - 03/14/2025 10:55 AM EDT Sheila is a 44-year-old female with a history of bipolar disorder, fibromyalgia, and neuropathy, presenting for an annual wellness visit, with additional concerns about eating disorder management andleft shoulder pain. HPI Annual Wellness Exam: - Last colonoscopy on 12/19/[address] Trimble; prep described as fair. - Mammogram ordered. - Denies chest pain, dyspnea, abdominal pain, hematochezia, or melena. - Reports improved sleep quality. Eating Disorder: - Struggling with eating disorder; lost 10 lbs in the last 10 days, partially attributed to water weight. - Engages in binge eating, fasting, and excessive exercise. - Previously maintained weight but recently gained some weight, leading to increased efforts to lose weight before today's visit. - Currently seeing a counselor, but feels the counseling is ineffective. - Psychiatrist recommended counseling but noted a lack of local specialists in eating disorders. - Sheila reads books on eating disorders and tries to follow advice on eating regular meals. - Fearful of gaining weight due to a history of losing 300 lbs. - On multiple medications for bipolar disorder that increase hunger, including Geodon. - Recent increase in Geodon dosage led to strange behaviors and side effects, including toe dystonia. - Denies self-harm or suicidal ideation. - Experiences mixed episodes with rapid mood changes. - Psychiatrist recently seen; next appointment uncertain due to psychiatrist's maternity leave and upcoming skilled nursing next fall. - Next psychology appointment in a week; Sheila expresses dissatisfaction with current counselor, stating sessions are unproductive. - Practices mindfulness and meditation independently. - Interested in a program called [employer] [facility] [employer] that offers online counseling. encouraged her to look into that as a consideration. Left Shoulder Pain: - Referred to orthopedics for left shoulder pain. - Previous diagnosis of bursitis; received an injection and completed 15 physical therapy sessions without relief. - Pain with abduction and other movements. Neuropathy: - Neuropathy in feet reportedly worsening, with increased numbness but persistent pain. - Able to walk 10,000 steps a day, which was previously not possible. - Uses a ball with nubs to roll under feet for pain relief; reports decreased sensation. - Neurologist advised that neuropathy will not affect ability to walk. Fibromyalgia: - Fibromyalgia exacerbated by over-exercising. Hypertension: - Last seen by cardiology; antihypertensive medication dosage was reduced. - Believes stress may be contributing to elevated blood pressure readings. MEDICATIONS: Current Outpatient Medications Medication Sig losartan (COZAAR) 25 mg tablet Take 25 mg by mouth once daily. meloxicam (MOBIC) 15 mg tablet Take 0.5-1 tablets by mouth once daily as needed for pain. pregabalin (LYRICA) 150 mg capsule Take 1 capsule by mouth three times a day for 120 days. ketoconazole (NIZORAL) 2 % shampoo [id number]-agau-FA-Ca carb-vit K (WOMEN'S MULTIVITAMIN) 18 mg-400 mcg- 500 mg-50 mcg tab Women's Multivitamin 18 mg-400 mcg- 500 mg-50 mcg tablet spironolactone (ALDACTONE) 25 mg tablet Take 25 mg by mouth three times a day. ziprasidone (GEODON) 60 mg capsule Take 120 mg by mouth once daily. topiramate (TOPAMAX) 100 mg tablet Take 100 mg by mouth once daily. topiramate (TOPAMAX) 200 mg tablet Take 400 mg by mouth once daily. valbenazine (INGREZZA) 80 mg capsule Take 80 mg by mouth once daily. benztropine (COGENTIN) 2 mg tablet Take 2 mg by mouth four times daily. lamoTRIgine (LAMICTAL) 200 mg tablet Take 400 mg by mouth once daily. diclofenac sodium-menthol (DITHOL) 1.5-10 % combo pack Apply to affected area. ziprasidone (GEODON) 20 mg capsule Take 20 mg by mouth three times daily. No current facility-administered medications for this visit. ALLERGIES: ALLERGIES Allergen Reactions Clindamycin Diarrhea Hives, cramping Levaquin [Levofloxa* Swelling Penicillins Rash Sulfa (Sulfonamide * Unknown Zithromax [Azithrom* Itching PAST MEDICAL HISTORY Diagnosis Date Allergic rhinitis due to other allergen Bipolar I disorder, most recent episode (or current) unspecified hosp 04 mutile suicide attempts/Dr. Jenkins Hypercalcemia Migraine without aura Morbid obesity (HCC) stated BMI HT: 68 WT: 375 Myalgia and myositis, unspecified Other specified cardiac dysrhythmias(427.89) PMH - PAST MEDICAL HISTORY OF MONO Unspecified essential hypertension PAST SURGICAL HISTORY Procedure Laterality Date ADENOIDECTOMY PRIMARY <AGE 11 1994 Adenoidectomy COLONOSCOPY W/BIOPSY SINGLE/MULTIPLE 12/23/2019 EXTRACTION, ERUPTED TOOTH OR EXPOSED ROOT (ELEVATION AND/OR FORCEPS REMOVAL) 1995 [place] teeth TONSILLECTOMY PRIMARY/SECONDARY <AGE 11 1994 Tonsillectomy FAMILY HISTORY Problem Relation Age of Onset Rheumatologic disease Mother other (stiff persons disease) Father other (autoimmune disorder) Father Diabetes Brother Type 1, age 40 Diabetes Maternal Grandmother Diabetes Paternal Grandmother Heart Paternal Grandmother Social History Tobacco Use Smoking status: Former Current packs/day: 0.00 Types: Cigarettes Quit date: 06/16/2008 Years since quittin.7 Smokeless tobacco: Never Vaping Use Vaping status: Never Used Substance Use Topics Alcohol use: No Drug use: No Reviewed current medications, allergies, past medical history, surgical history, family history andsocial history today. REVIEW OF SYSTEMS Constitutional: (+) weight loss Cardiovascular: (-) chest pain, (-) palpitations, (-) leg swelling Respiratory: (-) breathing problems Gastrointestinal: (+) normal bowel movements, (-) blood in stool, (-) black stools Musculoskeletal: (+) left shoulder pain with movement, (+) generalized myalgia Neurological: (+) foot numbness, (+) burning foot pain Psychiatric: (+) disordered eating behaviors, (+) mood swings, (-) suicidal ideation, (+) overexercising, (+) manic/hyper episodes HEALTH MAINTENANCE: Reviewed health maintenance issues today and recommended the following in detail. Colorectal Cancer Screening due on 2024 Mammogram Screening due on 12/11/2024 LAB REVIEWED: Labs: (09/23) - CBC, CMP, non-fasting lipid, magnesium, B12, thyroid, A1c, urine creatinine: A1c 4.4 (normal), cholesterol 190 mg/dL, LDL 121 mg/dL (minimally elevated), all other parameters within normal limits (October 2013) - Stool test for colon cancer screening (no results documented) Tests: (12/19/2019) Colonoscopy: Fair bowel prep (no additional findings discussed) VITALS: BP 132/78 Pulse 97 Wt 83 kg (183 lb) LMP 02/22/2024 SpO2 99% BMI 27.83 kg/m Last 4 Encounter Wt Readings: Date: Wt: 03/14/2025 83 kg (183 lb) 02/14/2025 83.9 kg (185 lb) 11/22/2024 82.6 kg (182 lb) 09/12/2024 82.7 kg (182 lb 5.1 oz) PHYSICAL EXAMINATION: GENERAL: NAD, alert and oriented. SKIN: Unremarkable, no rash or skin lesions. excess skin but no reports of skin infections etc. discussed options of plastic surgery. NECK: Supple, no lymphadenopathy, normal thyroid, no carotid bruits. LUNGS: Clear to auscultation bilaterally, no wheezes/rhonchi/rales. HEART: Regular rate and rhythm, no murmurs. No ectopy. EXTREMITIES: Normal, no deformities, no skin discoloration, no edema. NEURO: Awake, alert and oriented x3, cranial nerves II-XII grossly intact, normal gait, no involuntary motions. ASSESSMENT AND PLAN 1. Bipolar I disorder (HCC) (F31.9) - Experiencing mixed episodes with mood fluctuations. - Current psychiatrist on maternity leave; patient reports psychiatrist plans to retire next fall. - Discussed the importance of continuing psychiatric care and exploring virtual counseling options,especially those specializing in eating disorders. - Recommended maintaining current psychiatric treatment and discussing future plans with the psychiatrist upon her return. 2. supervisor intermediates (current) use of insulin (HCC) (Z79.4) - No longer using insulin; A1c is 4.4%. - Continue current management and monitor A1c levels. Will order labs in six months since so good at last ov. 3. Fibromyalgia (M79.7) - Symptoms exacerbated by over-exercising. - Advised to moderate exercise to prevent worsening of symptoms. 4. Neuropathy involving both lower extremities (G57.93) - Experiencing increased numbness and decreased pain in feet. - Continue current management; discussed that neuropathy is difficult to reverse. - Follow-up with neurology as needed. 5. Essential hypertension, benign (I10) - Blood pressure measured at 132/78 mmHg. - Continue current antihypertensive regimen. - Monitor blood pressure regularly. 6. History of diabetes mellitus (Z86.39) - A1c is 4.4%, indicating excellent glycemic control. - Continue current lifestyle and dietary measures. 7. Generalized anxiety disorder (F41.1) - Symptoms managed with current psychiatric treatment. - Continue current medications and follow-up with psychiatrist. 8. Screening for colon cancer (Z12.11) - Last colonoscopy on 12/19/2019 with fair prep. - Discussed options for colon cancer screening, including Cologuard. - Ordered Cologuard test. (See patient after visit summary for additional instructions to patient) Torres Yao MD Recording using ambient [employer] software for draft documentation of the visit was discussed with the patient/authorized client support representative; all questions welcomed and answered. Patient/authorized client support representative agreed to proceed documented in this encounterMer[facility]-16-[facility] Instructions* Patient Instructions* Torres Yao MD - 03/14/2025 10:40 AM EDT Look into switching to a counselor experienced in managing eating disorders. Consider virtual therapy options (such as the Eat Right Now program mentioned) and discuss these changes with your psychiatrist. Follow up with your orthopedic referral regarding your continued left shoulder pain and discomfort during arm movements. Schedule your mammogram as recommended. Arrange for colon cancer screening using a Cologuard test, as discussed. Plan to have labs (CBC, CMP, cholesterol, thyroid, vitamin D, and A1c) in about six months. Adjust your exercise routine to approximately 30 minutes of activity plus a 30?minute stretch daily, as advised by your psychiatrist. Monitor your neuropathy symptoms in your feet and use your foot roller (the ball with nubs) for pain relief if needed. documented in this encounterMercy Health [facility]04-18-2025 Instructions* Patient Instructions* Freeman Sarabia PA-C - 02/14/2025 1:37 PM EDT The OARRS report has been reviewed and is consistent with the patients medical history and medication intake. Continue with the pregabalin, meloxicam, and diclofenac gel. Continue with the PT exercises on home on your own Call with the name of an orthopedic surgeon in your area, and we will put in a referral for a consultation for the left shoulder due to a lack of response to PT and injections Continue using the TENS unit. Continue doing your yoga and strengthening exercises, but make sure you give your body a chance to rest between sessions. FU in the office in 3 months Continue to FU with the net developer architect for the neuropathy. FU with your psychiatrist regarding the sleep/miguel issues Continue with the kinesiology tape/roller ball on the feet. You can use CBD oil, just avoid THC, and delta 8 and delta 9. Supervising Physiciain - Dr. Isaac Cannon MD documented in this encounterMercy Health [facility]04-18-2025 NoteHNO ID: [id number] Author: FREEMAN SARABIA PA-C Service: ? Author Type: Physician Director Of Restaurants Type: Progress Notes Filed: 02/14/2025 13:55 Note Text: This note was created using [email or web address]. Subjective Sheila Crowe is a 44 year old female. The patient primarily being seen for back, generalized body, and bilateral knee and shoulder pain Patient was last seen on: 11/22/24 At that time, the treatment plan was: see notes Current Meds: pregabalin - am, meloxicam - yesterday Efficacy: help Side effects: denies TENS unit: yes How often used: daily Benefit: helps Physical Therapy: 01/2025 - [facility] Last UDS: 09/28/23 - not currently using narcotics Last injection: 09/17/24 - bilateral subacromial bursa injections OARRS reviewed At the present time, the patient reports benefit with her present analgesic therapy. She denies any adverse effects. Since her previous visit, she denies any hospitalizations or ER visits. She went to PT for her shoulder and feels this may have helped her ROM some. The left shoulder is still bothering her and affecting her ADLs. She likes to sew but states that this increases her pain. 02/04/2025 02/14/2025 INTAKE PAIN ASSESSMENT Are you having pain associated with your visit today? Yes, Provider notified Pain Scales Verbal (Numeric Rating or Visual Analog Scale) Pain Level 4 4 Pain Location Back-Lower Description -- Sharp Frequency Continuous Intervention/Comfort measure Medication;Relaxation;Cold;Heat 11/22/2024 02/14/2025 Pain Disability Index Family/Home Responsibilities: This category includes chores or duties performed around the house (e.g. yard work), errands or favors for other family members (e.g. driving the children to school) 6 3 Recreation: This category includes hobbies, sports, and other similar leisure time activities 5 4 Social Activity: This category refers to activities which involve participation with friends and acquaintances, other than family members. It includes parties, theater, concerts, dinning out, and other social functions 5 3 Occupation: This category refers to activities that are a part of or directly related to ones' job. This includes non-paying jobs as well, such as that of a housewife or volunteer worker 6 6 Sexual Behavior: This category refers to the frequency and quality of one's sex life 6 0 No disability Self Care: This category includes activities which involve personal maintenance and independent daily living (e.g. taking a shower, driving, getting dress, etc) 4 4 Life Support Activity: This category refers to basic-life supporting behaviors such as eating, sleeping, and breathing 3 1 PDI Score 35 21 PAST MEDICAL HISTORY Diagnosis Date Allergic rhinitis due to other allergen Bipolar I disorder, most recent episode (or current) unspecified hosp 04 mutile suicide attempts/Dr. Jenkins Hypercalcemia Migraine without aura Morbid obesity (HCC) stated BMI HT: 68 WT: 375 Myalgia and myositis, unspecified Other specified cardiac dysrhythmias(427.89) PMH - PAST MEDICAL HISTORY OF MONO Unspecified essential hypertension PAST SURGICAL HISTORY Procedure Laterality Date ADENOIDECTOMY PRIMARY Adenoidectomy COLONOSCOPY W/BIOPSY SINGLE/MULTIPLE 12/23/2019 EXTRACTION, ERUPTED TOOTH OR EXPOSED ROOT (ELEVATION AND/OR FORCEPS REMOVAL) 1995 [place] teeth TONSILLECTOMY PRIMARY/SECONDARY Tonsillectomy Social History Tobacco Use Smoking status: Former Current packs/day: 0.00 Types: Cigarettes Quit date: 06/16/2008 Years since quittin.6 Smokeless tobacco: Never Vaping Use Vaping status: Never Used Substance Use Topics Alcohol use: No Drug use: No Review of Systems Constitutional: Negative for fever and unexpected weight change. Musculoskeletal: Positive for back pain. +back pain, joint pain, muscle cramps/weakness, stiffness, arthritis, and leg pain with exertion. Objective BP 142/88 (BP Site: Left Arm, BP Position: Sitting, BP Cuff Size: Regular Adult) Pulse 84 Resp 18 Wt 83.9 kg (185 lb) LMP 02/22/2024 SpO2 99% BMI 28.13 kg/m? Physical Exam Vitals and nursing note reviewed. Constitutional: Appearance: Normal appearance. She is well-developed, well-groomed and overweight. HENT: Head: Normocephalic and atraumatic. Right Ear: Hearing normal. Left Ear: Hearing normal. Eyes: Conjunctiva/sclera: Conjunctivae normal. Comments: Wearing glasses Musculoskeletal: Comments: The patient walks with a normal gait. There is tenderness to palpation in the cervical and lumbar region with spasms noted in the trapezius, paraspinal, and latissimus dorsi muscles. She has tenderness noted over the right SI joint Strength is 5/5 throughout. Sensation is intact to light touch throughout. SLR is negative. She has tenderness to palpation in the knees bilaterally. There is tenderness noted in the left shoulder over the glenohumoral joint. ROM (more content not included)...[facility] 02-14-2025 History of Present illness Narrative* Freeman Sarabia PA-C - 02/14/2025 1:34 PM EDT This note was created using NoteWriter. Subjective Sheila Crowe is a 44 year old female. The patient primarily being seen for back, generalized body, and bilateral knee and shoulder pain Patient was last seen on: 11/22/24 At that time, the treatment plan was: see notes Current Meds: pregabalin - am, meloxicam - yesterday Efficacy: help Side effects: denies TENS unit: yes How often used: daily Benefit: helps Physical Therapy: 01/2025 - [facility] Last UDS: 09/28/23 - not currently using narcotics Last injection: 09/17/24 - bilateral subacromial bursa injections OARRS reviewed At the present time, the patient reports benefit with her present analgesic therapy. She denies anyadverse effects. Since her previous visit, she denies any hospitalizations or ER visits. She went to PT for her shoulder and feels this may have helped her ROM some. The left shoulder is still bothering her and affecting her ADLs. She likes to sew but states that this increases her pain. 02/04/2025 02/14/2025 INTAKE PAIN ASSESSMENT Are you having pain associated with your visit today? Yes, Provider notified Pain Scales Verbal (Numeric Rating or Visual Analog Scale) Pain Level 4 4 Pain Location Back-Lower Description -- Sharp Frequency Continuous Intervention/Comfort measure Medication;Relaxation;Cold;Heat 11/22/2024 02/14/2025 Pain Disability Index Family/Home Responsibilities: This category includes chores or duties performed around the house (e.g. yard work), errands or favors for other family members (e.g. driving the children to school) 6 3 Recreation: This category includes hobbies, sports, and other similar leisure time activities 5 4 Social Activity: This category refers to activities which involve participation with friends and acquaintances, other than family members. It includes parties, theater, concerts, dinning out, and other social functions 5 3 Occupation: This category refers to activities that are a part of or directly related to ones' job.This includes non-paying jobs as well, such as that of a housewife or volunteer worker 6 6 Sexual Behavior: This category refers to the frequency and quality of one's sex life 6 0 No disability Self Care: This category includes activities which involve personal maintenance and independent daily living (e.g. taking a shower, driving, getting dress, etc) 4 4 Life Support Activity: This category refers to basic-life supporting behaviors such as eating, sleeping, and breathing 3 1 PDI Score 35 21 PAST MEDICAL HISTORY Diagnosis Date Allergic rhinitis due to other allergen Bipolar I disorder, most recent episode (or current) unspecified hosp 04 mutile suicide attempts/Dr. Jenkins Hypercalcemia Migraine without aura Morbid obesity (HCC) stated BMI HT: 68 WT: 375 Myalgia and myositis, unspecified Other specified cardiac dysrhythmias(427.89) PMH - PAST MEDICAL HISTORY OF MONO Unspecified essential hypertension PAST SURGICAL HISTORY Procedure Laterality Date ADENOIDECTOMY PRIMARY <AGE 11 1994 Adenoidectomy COLONOSCOPY W/BIOPSY SINGLE/MULTIPLE 12/23/2019 EXTRACTION, ERUPTED TOOTH OR EXPOSED ROOT (ELEVATION AND/OR FORCEPS REMOVAL) 1995 [place] teeth TONSILLECTOMY PRIMARY/SECONDARY <AGE 11 1994 Tonsillectomy Social History Tobacco Use Smoking status: Former Current packs/day: 0.00 Types: Cigarettes Quit date: 06/16/2008 Years since quittin.6 Smokeless tobacco: Never Vaping Use Vaping status: Never Used Substance Use Topics Alcohol use: No Drug use: No Review of Systems Constitutional: Negative for fever and unexpected weight change. Musculoskeletal: Positive for back pain. +back pain, joint pain, muscle cramps/weakness, stiffness, arthritis, and leg pain with exertion. Objective BP 142/88 (BP Site: Left Arm, BP Position: Sitting, BP Cuff Size: Regular Adult) Pulse 84 Resp 18 Wt 83.9 kg (185 lb) LMP 02/22/2024 SpO2 99% BMI 28.13 kg/m Physical Exam Vitals and nursing note reviewed. Constitutional: Appearance: Normal appearance. She is well-developed, well-groomed and overweight. HENT: Head: Normocephalic and atraumatic. Right Ear: Hearing normal. Left Ear: Hearing normal. Eyes: Conjunctiva/sclera: Conjunctivae normal. Comments: Wearing glasses Musculoskeletal: Comments: The patient walks with a normal gait. There is tenderness to palpation in the cervical and lumbar region with spasms noted in the trapezius, paraspinal, and latissimus dorsi muscles. She has tenderness noted over the right SI joint Strength is 5/5 throughout. Sensation is intact to light touch throughout. SLR is negative. She has tenderness to palpation in the knees bilaterally. There is tenderness noted in the left shoulder over the glenohumoral joint. ROM is decreased secondary to pain with external rotation and abduction. Neurological: Mental Status: She is alert and oriented to person, place, and time. Psychiatric: Attention and Perception: Attention and perception normal. Mood and Affect: Mood and affect normal. Speech: Speech normal. Behavior: Behavior normal. Behavior is cooperative. Thought Content: Thought content normal. Judgment: Judgment normal. Assessment and Plan ASSESSMENT/PLAN: 1. Fibromyalgia - ICD9: 729.1, ICD10: M79.7 (primary diagnosis) 2. Primary osteoarthritis of both knees - ICD9: 715.16, ICD10: M17.0 - MELOXICAM 15 MG TABLET 3. Subacromial bursitis of both shoulders - ICD9: 726.19, ICD10: M75.51, M75.52 4. Bilateral shoulder region arthritis - ICD9: 716.91, ICD10: M19.011, M19.012 5. Sacroiliitis - ICD9: 720.2, ICD10: M46.1 6. Neuropathy involving both lower extremities - ICD9: 356.9, ICD10: G57.93 7. Generalized anxiety disorder - ICD9: 300.02, ICD10: F41.1 PLAN: The OARRS report has been reviewed and is consistent with the patients medical history and medication intake. Continue with the pregabalin, meloxicam, and diclofenac gel. Continue with the PT exercises on home on your own Call with the name of an orthopedic surgeon in your area, and we will put in a referral for a consultation for the left shoulder due to a lack of response to PT and injections Continue using the TENS unit. Continue doing your yoga and strengthening exercises, but make sure you give your body a chance to rest between sessions. FU in the office in 3 months Continue to FU with the net developer architect for the neuropathy. FU with your psychiatrist regarding the sleep/miguel issues Continue with the kinesiology tape/roller ball on the feet. You can use CBD oil, just avoid THC, and delta 8 and delta 9. Freeman Sarabia PA-C * Carmel Stark RN - 02/14/2025 1:08 PM EDT Lyrica am/ Meloxicam yest. Meds help pain Denies side effects TENS, daily-helpful 09/17/24-b/l subacromial bursa documented in this encounterMer[facility]04-18-2025 NoteHNO ID: [id number] Author: CARMEL STARK RN Service: ? Author Type: Registered Nurse Type: Progress Notes Filed: 02/14/2025 13:55 Note Text: Lyrica am/ Meloxicam yest. Meds help pain Denies side effects TENS, daily-helpful 09/17/24-b/l subacromial bursProv[facility]04-10-[facility]25 NoteHNO ID: [id number] Author: JOVAN PAIGE PT Service: ? Author Type: Physical Therapist Type: Progress Notes Filed: 02/06/2025 11:18 Note Text: Episode Visit Count: 10 Therapist That Will Accept/Oversee The Plan Of Care: Joanna Rey Start of Care Date: 11/25/24 Onset Date: 07/30/24 (months ago) Plan of Care Certification Date: 11/25/24 Next Certification Due Date: 01/23/25 REHABILITATION AND SPORTS THERAPY PHYSICAL THERAPY DISCONTINUANCE OF CARE PLAN OF CARE UPDATE: Assessment: Sheila Crowe is discontinued from Physical Therapy services due to maximal benefit. and Patient/Clinician mutual decision to discontinue current plan of care.. Patient was seen for 10 visits from Start of Care Date: 11/25/24 to 02/06/2025 and treatment included: Therapeutic exercise. Goals updated on 02/04/2025. Goals for Episode of Care: established 11/25/24 [place] in home exercise program. Partially met Patient will decrease pain rating by 2 points to meet minimal clinical important difference for numeric pain rating scale. Partially met Patient will increase active ROM of L shld to 160-170deg flex, abd, 50-60deg ER to allow pt to to improve postural alignment and to improve performance of ADLs. Not met Patient will demonstrate increase in L UE strength to 4 to 4+/5 during manual muscle testing in order to improve function for home management tasks, leisure / recreation skills, and prior functional tasks. Not met Perform sleeping;reaching overhead;use hand with arm at shoulder level;Comments;carrying;grooming; without pain. Improved Improve postural awareness. Met Patient Goals: Improved function/mobility of L UE and alleviate pain SUBJECTIVE: Patient notes her L shoulder is doing ok today, and overall. Pain: Pain Pain Level: 4 Pain Location: Shoulder - Left Description: (Mild tearing) Frequency: Continuous PROMIS Scales 02/04/2025 12/09/2024 08/07/2024 Higher is Better Phys Func - T Score 41 (mild dysfunction) 38 (moderate dysfunction) 47 (within normal limits) Phys Func - Percentile 18 12 38 Self-Eff Symptom - T Score 54 (Average) 38 (Low) 41 (Average) Self-Eff Symptom - Percentile 66 12 18 Proxy-reported T-scores: mean of general population = 50. 5 points is clinically meaningfully difference Percentiles provide an indication of how the patient's score ranks in relation to the general population. Higher percentile rankings indicate better function/quality of life. 50th percentile is the average of the general population and indicates half of respondents had a worse score. OBJECTIVE MEASURES WITH LEVEL OF FUNCTION: UE AROM L Shoulder Flex: 90 Degrees L Shoulder ABduction: 92 Degrees L Shoulder Internal Rotation (Functional): T11 L Shoulder External Rotation (Functional): T1 UE and Cervical Strength R UE Strength: grossly 4+/5 L UE Strength: grossly 4/5 TREATMENT: Therapeutic Exercise: 1: Objective measures obtained 2: Reviewed HEP and discussed progressions/regressions per symptoms Skilled Intervention: Patient was educated in proper exercise technique and purpose for exercises. Skilled judgment was used in selection of appropriate interventions. Provided written instruction for home exercise program to facilitate proper performance and compliance. Correct performance of therapeutic exercises was facilitated with verbal cuing. Billing Therapeutic Exercise Treatment Minutes: 26 Skilled Treatment Time Minutes (timed and untimed codes): 26 Total Session Time (minutes): 26 Session Start Time : 1554 Session Stop Time : 16[address] [facility]03-21-2025 NoteHNO ID: [id number] Author: JOANNA REY PT Service: ? Author Type: Physical Therapist Type: Progress Notes Filed: 01/17/2025 17:01 Note Text: Episode Visit Count: 9 Therapist That Will Accept/Oversee The Plan Of Care: Joanna Rey Start of Care Date: 11/25/24 Onset Date: 10/01/24 (months ago) Plan of Care Certification Date: 11/25/24 Next Certification Due Date: 01/23/25 Patient Identified by Name and Date of : Yes REHABILITATION AND SPORTS THERAPY PHYSICAL THERAPY TREATMENT NOTE ASSESSMENT: Sheila Crowe tolerated the session with decreased symptoms. She demonstrated improvements in Passive ROM L shld. The patient will continue to benefit from ongoing skilled physical therapy to progress toward set goals. PLAN FOR NEXT VISIT: Cont with exercise (UBE, stretches, ROM, strengthening). SUBJECTIVE: Pt stating her feet are more painful today than her shoulder, but she is also just tired in general d/t her brother visiting this week and has been on the go. Pt states she has been using a vest when working out (fastens in the front) which she feels this helps to improve her trunk/shoulder posture. Pain: Pain Pain Level: 5 Pain Location: Shoulder - Left Post Treatment Pain Post Treatment Pain Level: Better Post Treatment Pain Location: Shoulder - Left OBJECTIVE MEASURES WITH LEVEL OF FUNCTION: UE PROM L Shoulder Flex: 110 Degrees L Shoulder ABduction: 95 Degrees TREATMENT: Therapeutic Exercise: 1: UBE x 5 min, seat # 7 2: Shoulder circles backwards 2x 15 3: Scapular retractions 5 sec holds, 2x10 4: doorway stretch with arm at different levels (shld flex angle) 5: *corner stretch 5 x 30 sec holds 6: *scapular retraction with blue band (elbows at side) 2x 10 7: PROM L shld with pt in supine flexion, abduction, ER 2x15 Skilled Intervention: Patient was educated in proper exercise technique and purpose for exercises. Reviewed and educated patient on additions/changes for home exercise program as above (*). Skilled judgment was used in selection of appropriate interventions. Provided written instruction for home exercise program to facilitate proper performance and compliance. Correct performance of therapeutic exercises was facilitated with verbal and visual cuing. Patient education as noted. Billing Therapeutic Exercise Treatment Minutes: 45 Skilled Treatment Time Minutes (timed and untimed codes): 45 Total Session Time (minutes): 45 Session Start Time : 1302 Session Stop Time : [address] [facility]03-21-2025 History of Present illness Narrative* Joanna Rey, PT - 01/17/2025 1:02 PM EDT Episode Visit Count: 9 Therapist That Will Accept/Oversee The Plan Of Care: Joanna Rey Start of Care Date: 11/25/24 Onset Date: 07/30/24 (months ago) Plan of Care Certification Date: 11/25/24 Next Certification Due Date: 01/23/25 Patient Identified by Name and Date of : Yes REHABILITATION AND SPORTS THERAPY PHYSICAL THERAPY TREATMENT NOTE ASSESSMENT: Sheila Crowe tolerated the session with decreased symptoms. She demonstrated improvements in Passive ROM L shld. The patient will continue to benefit from ongoing skilled physical therapy to progress toward set goals. PLAN FOR NEXT VISIT: Cont with exercise (UBE, stretches, ROM, strengthening). SUBJECTIVE: Pt stating her feet are more painful today than her shoulder, but she is also just tired in general d/t her brother visiting this week and has been on the go. Pt states she has been using a vest when working out (fastens in the front) which she feels this helps to improve her trunk/shoulder posture. Pain: Pain Pain Level: 5 Pain Location: Shoulder - Left Post Treatment Pain Post Treatment Pain Level: Better Post Treatment Pain Location: Shoulder - Left OBJECTIVE MEASURES WITH LEVEL OF FUNCTION: UE PROM L Shoulder Flex: 110 Degrees L Shoulder ABduction: 95 Degrees TREATMENT: Therapeutic Exercise: 1: UBE x 5 min, seat # 7 2: Shoulder circles backwards 2x 15 3: Scapular retractions 5 sec holds, 2x10 4: doorway stretch with arm at different levels (shld flex angle) 5: *corner stretch 5 x 30 sec holds 6: *scapular retraction with blue band (elbows at side) 2x 10 7: PROM L shld with pt in supine flexion, abduction, ER 2x15 Skilled Intervention: Patient was educated in proper exercise technique and purpose for exercises. Reviewed and educated patient on additions/changes for home exercise program as above (*). Skilled judgment was used in selection of appropriate interventions. Provided written instruction for home exercise program to facilitate proper performance and compliance. Correct performance of therapeutic exercises was facilitated with verbal and visual cuing. Patient education as noted. Billing Therapeutic Exercise Treatment Minutes: 45 Skilled Treatment Time Minutes (timed and untimed codes): 45 Total Session Time (minutes): 45 Session Start Time : 1302 Session Stop Time : 1347 Joanna Rey [facility] NotePatient Outreach (FAMPWS) SHEILA CROWE ([id number]) 1980 F Date Time Provider Department 01/14/25 TORRES YAOPWS During your visit today, we recorded the following information about you: Allergies As of Date: 01/14/2025 Noted Allergy Reaction CLINDAMYCIN 07/05/2007 6 - Diarrhea Comments: Hives, cramping LEVAQUIN (LEVOFLOXACIN) 01/12/2009 7 - Swelling PENICILLINS 07/27/2005 2 - Rash SULFA (SULFONAMIDE ANTIBIOTICS) 03/29/2022 16 - Unknown ZITHROMAX (AZITHROMYCIN) 01/01/2009 9 - Itching Date Reviewed: 11/22/2024 Reviewed by: Freeman Sarabia PA-C - Fully Assessed Visit Diagnosis:Encounter for screening mammogram for breast cancer [Z12.31] Order(s):[facility] Jamie ZAYAS [[id number]] Order #: [id number] FUTURE Prescriptions as of 02/14/2025 - pregabalin (LYRICA) 150 mg capsule Take 1 capsule by mouth three times a day for 120 days. - meloxicam (MOBIC) 15 mg tablet Take 0.5-1 tablets by mouth once daily as needed for pain. - buprenorphine (BUTRANS) 10 mcg/hour Apply 1 Patch as directed one time a week for 28 days. As directed. Do not start before April 11, 2024. - diclofenac sodium-menthol (DITHOL) 1.5-10 % combo pack Apply to affected area. - ketoconazole (NIZORAL) 2 % shampoo - rt-iu-liqr-FA-Ca carb-vit K (WOMEN'S MULTIVITAMIN) 18 mg-400 mcg- 500 mg-50 mcg tab Women's Multivitamin 18 mg-400 mcg- 500 mg-50 mcg tablet - spironolactone (ALDACTONE) 25 mg tablet Take 25 mg by mouth three times a day. - ziprasidone (GEODON) 20 mg capsule Take 20 mg by mouth three times daily. - ziprasidone (GEODON) 60 mg capsule Take 120 mg by mouth once daily. - topiramate (TOPAMAX) 100 mg tablet Take 100 mg by mouth once daily. - topiramate (TOPAMAX) 200 mg tablet Take 400 mg by mouth once daily. - valbenazine (INGREZZA) 80 mg capsule Take 80 mg by mouth once daily. - benztropine (COGENTIN) 2 mg tablet Take 2 mg by mouth four times daily. - lamoTRIgine (LAMICTAL) 200 mg tablet Take 400 mg by mouth once daily. 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) [E1*10/29/2013 04/12/2023 Type II or unspecified type diabetes mellitus w*02/03/2014 08/05/2016 Acne [L70.9] 09/29/2014 Plantar fasciitis [M72.2] 07/26/2021 Left foot pain [M79.672] 07/26/2021 Generalized anxiety disorder [F41.1] 02/15/2018 Osteoarthritis of knee [M17.9] 03/18/2020 04/12/2023 Other [facility] (current) drug therapy [Z79.899]09/24/2018 Sacroiliitis (HCC) [M46.1] 03/02/2022 Subacromial bursitis of both shoulders [M75.51,*11/30/2022 Primary osteoarthritis of both knees [M17.0] 11/30/2022 History of diabetes mellitus [Z86.39] 10/13/2023 Neuropathy involving both lower extremities [G5*02/07/2024 Acute midline low back pain without sciatica [M*06/03/2024 Bilateral shoulder region arthritis [M19.011, M*11/25/2024 Encounter Status:Closed by EPIC, PRODUSER on 02/14/25[facility] 01-09-2025 NoteHNO ID: [id number] Author: SALVADOR HART PT Service: ? Author Type: Physical Therapist Type: Progress Notes Filed: 01/09/2025 12:28 Note Text: Episode Visit Count: 8 Therapist That Will Accept/Oversee The Plan Of Care: Joanna Rey Start of Care Date: 11/25/24 Onset Date: 07/30/24 (months ago) Plan of Care Certification Date: 11/25/24 Next Certification Due Date: 01/23/25 Patient Identified by Name and Date of : Yes REHABILITATION AND SPORTS THERAPY PHYSICAL THERAPY TREATMENT NOTE ASSESSMENT: Sheila Crowe tolerated the session with fatigue and decreased symptoms. She demonstrated improvements in relaxation with PROM. The patient will continue to benefit from ongoing skilled physical therapy to progress toward set goals. PLAN FOR NEXT VISIT: PROM and stretching as tolerated. Use of UBE. SUBJECTIVE: Pt reports that her L shoulder still hurts a lot. Pain: Pain Pain Level: 4 Pain Location: Shoulder - Left Frequency: Continuous Post Treatment Pain Post Treatment Pain Level: 2 Post Treatment Pain Location: Shoulder - Left OBJECTIVE MEASURES WITH LEVEL OF FUNCTION: UE PROM L Shoulder Flex: 90 Degrees TREATMENT: Therapeutic Exercise: 1: UBE x 5 min, seat # 7 2: Shoulder circles backwards 2x 15 3: Scapular retractions 5 sec holds, 2x10 4: PROM L shld with pt in supine flexion, abduction, ER 2x15 Skilled Intervention: Patient was educated in proper exercise technique and purpose for exercises. Skilled judgment was used in selection of appropriate interventions. Correct performance of therapeutic exercises was facilitated with verbal and visual cuing. Billing Therapeutic Exercise Treatment Minutes: 42 Skilled Treatment Time Minutes (timed and untimed codes): 42 Total Session Time (minutes): 42 Session Start Time : 1100 Session Stop Time : 1142 Rachel Whiteside, HARMAN Hart, PT, DPT.[facility]03-13-2025 History of Present illness Narrative* Salvador Hart PT - 01/09/2025 11:02 AM EDT Episode Visit Count: 8 Therapist That Will Accept/Oversee The Plan Of Care: Joanna Rey Start of Care Date: 11/25/24 Onset Date: 07/30/24 (months ago) Plan of Care Certification Date: 11/25/24 Next Certification Due Date: 01/23/25 Patient Identified by Name and Date of : Yes REHABILITATION AND SPORTS THERAPY PHYSICAL THERAPY TREATMENT NOTE ASSESSMENT: Sheila Crowe tolerated the session with fatigue and decreased symptoms. She demonstrated improvements in relaxation with PROM. The patient will continue to benefit from ongoing skilledphysical therapy to progress toward set goals. PLAN FOR NEXT VISIT: PROM and stretching as tolerated. Use of UBE. SUBJECTIVE: Pt reports that her L shoulder still hurts a lot. Pain: Pain Pain Level: 4 Pain Location: Shoulder - Left Frequency: Continuous Post Treatment Pain Post Treatment Pain Level: 2 Post Treatment Pain Location: Shoulder - Left OBJECTIVE MEASURES WITH LEVEL OF FUNCTION: UE PROM L Shoulder Flex: 90 Degrees TREATMENT: Therapeutic Exercise: 1: UBE x 5 min, seat # 7 2: Shoulder circles backwards 2x 15 3: Scapular retractions 5 sec holds, 2x10 4: PROM L shld with pt in supine flexion, abduction, ER 2x15 Skilled Intervention: Patient was educated in proper exercise technique and purpose for exercises. Skilled judgment was used in selection of appropriate interventions. Correct performance of therapeutic exercises was facilitated with verbal and visual cuing. Billing Therapeutic Exercise Treatment Minutes: 42 Skilled Treatment Time Minutes (timed and untimed codes): 42 Total Session Time (minutes): 42 Session Start Time : 1100 Session Stop Time : 1142 HARMAN Childs, PT, DPT. documented in [facility]25 NoteHNO ID: [id number] Author: JOANNA REY PT Service: ? Author Type: Physical Therapist Type: Progress Notes Filed: 01/06/2025 20:22 Note Text: Episode Visit Count: 7 Therapist That Will Accept/Oversee The Plan Of Care: Joanna Rey Start of Care Date: 11/25/24 Onset Date: 07/30/24 (months ago) Plan of Care Certification Date: 11/25/24 Next Certification Due Date: 01/23/25 Patient Identified by Name and Date of : Yes REHABILITATION AND SPORTS THERAPY PHYSICAL THERAPY PROGRESS REPORT PLAN OF CARE UPDATE: Assessment: Sheila Crowe demonstrates difficulty with reaching overhead and use hand with arm at shoulder level. The patient has minimal progression towards goals. Patient continues to present with impairments in overall function, posture, range of motion, strength, and symptom management that interfere with sleeping, reaching overhead, use hand with arm at shoulder level (difficulty finding comfortable position to sleep) . Current prognosis is Good due to: current objective clinical presentation, good overall health status, good support system/ coping skills, Prognosis may be limited due to Fair due to: chronic nature of impairments, limited tolerance to activity . The patient will benefit from continued skilled therapy services to meet the updated goals for this plan of care as noted below. Pt with decreased shoulder ROM and consistent pain, but seemed to respond well (reporting decreased pain) with today's treatment. Will monitor for long-lasting relief/improvement. Goals for Episode of Care: established 11/25/24 Goals updated on 01/06/2025. [place] in home exercise program.(Partially Met)-decreased frequency Patient will decrease pain rating by 2 points to meet minimal clinical important difference for numeric pain rating scale. (Not Met) Patient will increase active ROM of L shld to 160-170deg flex, abd, 50-60deg ER to allow pt to to improve postural alignment and to improve performance of ADLs. (Not Met) Patient will demonstrate increase in L UE strength to 4 to 4+/5 during manual muscle testing in order to improve function for home management tasks, leisure / recreation skills, and prior functional tasks. (Not Met) Perform sleeping;reaching overhead;use hand with arm at shoulder level;Comments;carrying;grooming; without pain. (Not Met) Improve postural awareness. (Met) Patient Goals: Improved function/mobility of L UE and alleviate pain Time Frame for Goals and Treatment : 01/23/25 Planned Interventions, Frequency, and Duration: 2x/week, 2 weeks Patient to be seen for Therapeutic exercise (43356), Neuromuscular re-education (46525), Manual therapy (76222), Self-alf management (57827), Patient/Family/Caregiver Education PLAN FOR NEXT VISIT: Continue with UBE, passive stretches, and progression of HEP as tolerated. SUBJECTIVE: Pt reports that her shoulder still hurts quite a bit. Seems to be more in the front since initial evaluation. Notes worst pain if reaching up and out (away from body). Functional Limitations: sleeping, reaching overhead, use hand with arm at shoulder level (difficulty finding comfortable position to sleep) Pain: Pain Pain Level: 5 Pain Location: Shoulder - Left Frequency: Continuous Post Treatment Pain Post Treatment Pain Level: 3 Post Treatment Pain Location: Shoulder - Left PROMIS Scales 12/09/2024 08/07/2024 07/04/2024 Higher is Better Phys Func - T Score 38 (moderate dysfunction) 47 (within normal limits) Phys Func - Percentile 12 38 Self-Eff Symptom - T Score 38 (Low) 41 (Average) 44 (Average) Self-Eff Symptom - Percentile 12 18 27 Proxy-reported T-scores: mean of general population = 50. 5 points is clinically meaningfully difference Percentiles provide an indication of how the patient's score ranks in relation to the general population. Higher percentile rankings indicate better function/quality of life. 50th percentile is the average of the general population and indicates half of respondents had a worse score. OBJECTIVE MEASURES WITH LEVEL OF FUNCTION: Posture / Alignment Posture: Rounded shoulders Shoulder Observations L Shoulder Palpation Tenderness: Bicipital groove, Comments L Shoulder Palpation Tenderness Comments: lateral subacromial space UE AROM L Shoulder Extension: 50 Degrees (ant shld pain) L Shoulder Flex: 60 Degrees (end range pain) L Shoulder ABduction: 65 Degrees (lateral shld pain) L Shoulder Internal Rotation (Functional): back of hand to upper lumbar spine L Shoulder External Rotation: 50 Degrees (pain) UE PROM L Shoulder Flex: 90 Degrees (in supine; soft end feel) TREATMENT: Therapeutic Exercise: 1: Pulleys for shoulder flexion 2 x 10 2: UBE x 5 min 3: Shoulder circles backwards 2x 15 4: Scapular retractions 5 sec holds, 2x10 5: PROM L shld with pt in supine. 6: Reviewed HEP and stretches including warming up before stretching and co (more content not included)...[facility]03-10-2025 History of Present illness Narrative* Joanna Rey, PT - 01/06/2025 12:09 PM EDT Images from the original note were not included. Episode Visit Count: 7 Therapist That Will Accept/Oversee The Plan Of Care: Joanna Rey Start of Care Date: 11/25/24 Onset Date: 07/30/24 (months ago) Plan of Care Certification Date: 11/25/24 Next Certification Due Date: 01/23/25 Patient Identified by Name and Date of : Yes REHABILITATION AND SPORTS THERAPY PHYSICAL THERAPY PROGRESS REPORT PLAN OF CARE UPDATE: Assessment: Sheila Crowe demonstrates difficulty with reaching overhead and use hand with arm at shoulder level. The patient has minimal progression towards goals. Patient continues to present with impairments in overall function, posture, range of motion, strength, and symptom management that interfere with sleeping, reaching overhead, use hand with arm at shoulder level (difficulty finding comfortable position to sleep) . Current prognosis is Good due to: current objective clinical presentation, good overall health status, good support system/ coping skills, Prognosis may be limited due to Fair due to: chronic nature of impairments, limited tolerance to activity . The patient will benefit from continued skilled therapy services to meet the updated goals for this plan of care as noted below. Pt with decreased shoulder ROM and consistent pain, but seemed to respond well (reporting decreased pain) with today's treatment. Will monitor for long-lasting relief/improvement. Goals for Episode of Care: established 11/25/24 Goals updated on 01/06/2025. [place] in home exercise program.(Partially Met)-decreased frequency Patient will decrease pain rating by 2 points to meet minimal clinical important difference for numeric pain rating scale. (Not Met) Patient will increase active ROM of L shld to 160-170deg flex, abd, 50-60deg ER to allow pt to to improve postural alignment and to improve performance of ADLs. (Not Met) Patient will demonstrate increase in L UE strength to 4 to 4+/5 during manual muscle testing in order to improve function for home management tasks, leisure / recreation skills, and prior functional tasks. (Not Met) Perform sleeping;reaching overhead;use hand with arm at shoulder level;Comments;carrying;grooming; without pain. (Not Met) Improve postural awareness. (Met) Patient Goals: Improved function/mobility of L UE and alleviate pain Time Frame for Goals and Treatment : 01/23/25 Planned Interventions, Frequency, and Duration: 2x/week, 2 weeks Patient to be seen for Therapeutic exercise (01071), Neuromuscular re-education (50850), Manual therapy (84410), Self-alf management (17199), Patient/Family/Caregiver Education PLAN FOR NEXT VISIT: Continue with UBE, passive stretches, and progression of HEP as tolerated. SUBJECTIVE: Pt reports that her shoulder still hurts quite a bit. Seems to be more in the front since initial evaluation. Notes worst pain if reaching up and out (away from body). Functional Limitations: sleeping, reaching overhead, use hand with arm at shoulder level (difficulty finding comfortable position to sleep) Pain: Pain Pain Level: 5 Pain Location: Shoulder - Left Frequency: Continuous Post Treatment Pain Post Treatment Pain Level: 3 Post Treatment Pain Location: Shoulder - Left PROMIS Scales 12/09/2024 08/07/2024 07/04/2024 Higher is Better Phys Func - T Score 38 (moderate dysfunction) 47 (within normal limits) Phys Func - Percentile 12 38 Self-Eff Symptom - T Score 38 (Low) 41 (Average) 44 (Average) Self-Eff Symptom - Percentile 12 18 27 Proxy-reported T-scores: mean of general population = 50. 5 points is clinically meaningfully difference Percentiles provide an indication of how the patient's score ranks in relation to the general population. Higher percentile rankings indicate better function/quality of life. 50th percentile is the average of the general population and indicates half of respondents had a worse score. OBJECTIVE MEASURES WITH LEVEL OF FUNCTION: Posture / Alignment Posture: Rounded shoulders Shoulder Observations L Shoulder Palpation Tenderness: Bicipital groove, Comments L Shoulder Palpation Tenderness Comments: lateral subacromial space UE AROM L Shoulder Extension: 50 Degrees (ant shld pain) L Shoulder Flex: 60 Degrees (end range pain) L Shoulder ABduction: 65 Degrees (lateral shld pain) L Shoulder Internal Rotation (Functional): back of hand to upper lumbar spine L Shoulder External Rotation: 50 Degrees (pain) UE PROM L Shoulder Flex: 90 Degrees (in supine; soft end feel) TREATMENT: Therapeutic Exercise: 1: Pulleys for shoulder flexion 2 x 10 2: UBE x 5 min 3: Shoulder circles backwards 2x 15 4: Scapular retractions 5 sec holds, 2x10 5: PROM L shld with pt in supine. 6: Reviewed HEP and stretches including warming up before stretching and comfortable stretch versuspain. Skilled Intervention: Patient was educated in proper exercise technique and purpose for exercises. Reviewed and educated patient on additions/changes for home exercise program. Skilled judgment was used in selection of appropriate interventions. Correct performance of therapeutic exercises was facilitated with verbal and visual cuing. Additional time necessary for objective measurements and reassessment due to plan of care update. Patient education as noted. Billing Therapeutic Exercise Treatment Minutes: 57 Skilled Treatment Time Minutes (timed and untimed codes): 57 Total Session Time (minutes): 57 Session Start Time : 1205 Session Stop Time : 1302 Joanna Rey PT documented [facility] encounter[facility]25 NoteHNO ID: [id number] Author: JOANNA REY PT Service: ? Author Type: Physical Therapist Type: Progress Notes Filed: 01/03/2025 12:15 Note Text: Episode Visit Count: 6 Therapist That Will Accept/Oversee The Plan Of Care: Joanna Rey Start of Care Date: 11/25/24 Onset Date: 07/30/24 (months ago) Plan of Care Certification Date: 11/25/24 Next Certification Due Date: 01/23/25 Patient Identified by Name and Date of : Yes REHABILITATION AND SPORTS THERAPY PHYSICAL THERAPY TREATMENT NOTE ASSESSMENT: Sheila Crowe tolerated the session with decreased activity tolerance due to pain and limited mobility of L shoulder. She demonstrated difficulty with PROM l shoulder flexion and ER due to increase in pain . The patient will continue to benefit from ongoing skilled physical therapy to progress toward set goals. PLAN FOR NEXT VISIT: SUBJECTIVE: Pt reports that her shoulder is still feeling the same. Pain: Pain Pain Level: 5 Pain Location: Shoulder - Left (subacromial/deltoid region) Frequency: Continuous OBJECTIVE MEASURES WITH LEVEL OF FUNCTION: UE AROM L Shoulder Flex: 74 Degrees (painful) L Shoulder ABduction: 64 Degrees (pain) UE PROM L Shoulder Flex: 100 Degrees (painful) L Shoulder ABduction: 90 Degrees (not painful) TREATMENT: Therapeutic Exercise: 1: PROM shoulder flexion ,ER, and abduction x 10 each (painful with ER and flexion) 2: Pulleys for flexion 2x8 3: Seated table slides 2x10 4: Scapular retractions 2x10 5: Shoulder circles forwards and backwards x 10 Skilled Intervention: Patient was educated in proper exercise technique and purpose for exercises. Skilled judgment was used in selection of appropriate interventions. Correct performance of therapeutic exercises was facilitated with verbal and visual cuing. Billing Therapeutic Exercise Treatment Minutes: 34 Skilled Treatment Time Minutes (timed and untimed codes): 34 Total Session Time (minutes): 34 Session Start Time : 1103 Session Stop Time : 1137 Rachel Whiteside, [employer]OR[employer] ATTENDANT Joanna Rey, [facility]03-07-2025 History of Present illness Narrative* Joanna Rey, PT - 01/03/2025 11:04 AM EST Episode Visit Count: 6 Therapist That Will Accept/Oversee The Plan Of Care: Candido Joanna Start of Care Date: 11/25/24 Onset Date: 07/30/24 (months ago) Plan of Care Certification Date: 11/25/24 Next Certification Due Date: 01/23/25 Patient Identified by Name and Date of : Yes REHABILITATION AND SPORTS THERAPY PHYSICAL THERAPY TREATMENT NOTE ASSESSMENT: Sheila Crowe tolerated the session with decreased activity tolerance due to pain andlimited mobility of L shoulder. She demonstrated difficulty with PROM l shoulder flexion and ER dueto increase in pain . The patient will continue to benefit from ongoing skilled physical therapy to progress toward set goals. PLAN FOR NEXT VISIT: SUBJECTIVE: Pt reports that her shoulder is still feeling the same. Pain: Pain Pain Level: 5 Pain Location: Shoulder - Left (subacromial/deltoid region) Frequency: Continuous OBJECTIVE MEASURES WITH LEVEL OF FUNCTION: UE AROM L Shoulder Flex: 74 Degrees (painful) L Shoulder ABduction: 64 Degrees (pain) UE PROM L Shoulder Flex: 100 Degrees (painful) L Shoulder ABduction: 90 Degrees (not painful) TREATMENT: Therapeutic Exercise: 1: PROM shoulder flexion ,ER, and abduction x 10 each (painful with ER and flexion) 2: Pulleys for flexion 2x8 3: Seated table slides 2x10 4: Scapular retractions 2x10 5: Shoulder circles forwards and backwards x 10 Skilled Intervention: Patient was educated in proper exercise technique and purpose for exercises. Skilled judgment was used in selection of appropriate interventions. Correct performance of therapeutic exercises was facilitated with verbal and visual cuing. Billing Therapeutic Exercise Treatment Minutes: 34 Skilled Treatment Time Minutes (timed and untimed codes): 34 Total Session Time (minutes): 34 Session Start Time : 1103 Session Stop Time : 1137 Rachel Whiteside, HARMAN Rey PT documented in this encounterMer[facility]25 NoteHNO ID: [id number] Author: KIMBERLEY TY PT Service: ? Author Type: Physical Therapist Type: Progress Notes Filed: 12/31/2024 12:40 Note Text: Episode Visit Count: 5 Therapist That Will Accept/Oversee The Plan Of Care: Joanna Rey Start of Care Date: 11/25/24 Onset Date: 07/30/24 (months ago) Plan of Care Certification Date: 11/25/24 Next Certification Due Date: 01/23/25 Patient Identified by Name and Date of : Yes REHABILITATION AND SPORTS THERAPY PHYSICAL THERAPY TREATMENT NOTE ASSESSMENT: Sheila Crowe tolerated the session with fatigue and expected muscle soreness. She demonstrated difficulty with mobility of L shoulder this visit. The patient will continue to benefit from ongoing skilled physical therapy to progress toward set goals. PLAN FOR NEXT VISIT: Continue with gentle shoulder ROM SUBJECTIVE: Pt reports that her shoulder is about the same. Pt states that she is having more overall pain throughout her body today, only slept a few hours last night. Pain: Pain Pain Level: 5 Pain Location: Shoulder - Left (subacromial/deltoid region) Frequency: Continuous Post Treatment Pain Post Treatment Pain Location: Shoulder - Left OBJECTIVE MEASURES WITH LEVEL OF FUNCTION: TREATMENT: Therapeutic Exercise: 1: B levator scap stretch 3x30 seconds 2: B UT stretch 3x30 seconds 3: Pulleys for flexion 2x8 4: IR behind back with pulleys 2x10 5: Seated table slides 2x10 6: Scapular retractions 2x10 7: Shoulder circles forwards and backwards x 10 8: Scapular retractions 2x10 Skilled Intervention: Patient was educated in proper exercise technique and purpose for exercises. Skilled judgment was used in selection of appropriate interventions. Correct performance of therapeutic exercises was facilitated with verbal and visual cuing. Billing Therapeutic Exercise Treatment Minutes: 40 Skilled Treatment Time Minutes (timed and untimed codes): 40 Total Session Time (minutes): 40 Session Start Time : 1145 Session Stop Time : 1225 [facility] History of Present illness Narrative* Kimberley Ty PT - 12/31/2024 11:47 AM EST Episode Visit Count: 5 Therapist That Will Accept/Oversee The Plan Of Care: EloyjamesJoanna Start of Care Date: 11/25/24 Onset Date: 07/30/24 (months ago) Plan of Care Certification Date: 11/25/24 Next Certification Due Date: 01/23/25 Patient Identified by Name and Date of : Yes REHABILITATION AND SPORTS THERAPY PHYSICAL THERAPY TREATMENT NOTE ASSESSMENT: Sheila Crowe tolerated the session with fatigue and expected muscle soreness. She demonstrated difficulty with mobility of L shoulder this visit. The patient will continue to benefit from ongoing skilled physical therapy to progress toward set goals. PLAN FOR NEXT VISIT: Continue with gentle shoulder ROM SUBJECTIVE: Pt reports that her shoulder is about the same. Pt states that she is having more overall pain throughout her body today, only slept a few hours last night. Pain: Pain Pain Level: 5 Pain Location: Shoulder - Left (subacromial/deltoid region) Frequency: Continuous Post Treatment Pain Post Treatment Pain Location: Shoulder - Left OBJECTIVE MEASURES WITH LEVEL OF FUNCTION: TREATMENT: Therapeutic Exercise: 1: B levator scap stretch 3x30 seconds 2: B UT stretch 3x30 seconds 3: Pulleys for flexion 2x8 4: IR behind back with pulleys 2x10 5: Seated table slides 2x10 6: Scapular retractions 2x10 7: Shoulder circles forwards and backwards x 10 8: Scapular retractions 2x10 Skilled Intervention: Patient was educated in proper exercise technique and purpose for exercises. Skilled judgment was used in selection of appropriate interventions. Correct performance of therapeutic exercises was facilitated with verbal and visual cuing. Billing Therapeutic Exercise Treatment Minutes: 40 Skilled Treatment Time Minutes (timed and untimed codes): 40 Total Session Time (minutes): 40 Session Start Time : 1145 Session Stop Time : 1225 HARMAN Childs PT documented in this encounterMer[facility]02-28-[facility]25 Telephone encounter Note * Telephone Encounter - Freeman Sarabia PA-C - 12/27/2024 3:35 PM EST The following approved medication requests have been transmitted electronically. Requested Prescriptions Pending Prescriptions Disp Refills pregabalin (LYRICA) 150 mg capsule 90 capsule 3 Sig: Take 1 capsule by mouth three times a day for 120 days. Freeman Sarabia PA-C [facility]02-28-[facility]25 Miscellaneous Notes* Telephone Encounter - Freeman Sarabia PA-C - 12/27/2024 3:35 PM EST The following approved medication requests have been transmitted electronically. Requested Prescriptions Pending Prescriptions Disp Refills pregabalin (LYRICA) 150 mg capsule 90 capsule 3 Sig: Take 1 capsule by mouth three times a day for 120 days. Freeman Sarabia PA-C * Telephone Encounter - Cass Frey RN - 12/27/2024 3:22 PM EST Patient phones requesting refills as follows: Requested Prescriptions Pending Prescriptions Disp Refills pregabalin (LYRICA) 150 mg capsule 90 capsule 3 Sig: Take 1 capsule by mouth three times a day for 120 days. Last UDS: Opioid/Non opioid agreement - 11/10/23. 12/22/23 - Bilateral subacromial bursas x 1 visit Summary Report Date Value Ref Range Status 03/03/2023 FINAL Final Comment: Gabapentin, MS, Ur RFX ToxAssure Flex 23, Ur Test Result Flag Units Drug Present and Declared for Prescription Verification Buprenorphine 8 EXPECTED ng/mg creat Norbuprenorphine 38 EXPECTED ng/mg creat Source of buprenorphine is a scheduled prescription medication. Norbuprenorphine is an expected metabolite of buprenorphine. Gabapentin PRESENT EXPECTED Drug Present not Declared for Prescription Verification Zolpidem Acid PRESENT UNEXPECTED Zolpidem acid is an expected metabolite of zolpidem. Test Result Flag Units Ref Range Creatinine 40 mg/dL >=20 Declared Medications: The flagging and interpretation on this report are based on the following declared medications. Unexpected results may arise from inaccuracies in the declared medications. Note: The testing scope of this panel includes these medications: Gabapentin Note: The testing scope of this panel does not include small to moderate amounts of these reported medications: Buprenorphine For clinical consultation, please call . No results found for: UQNOTE, OPIATEPNMGT, DRUGSCRPAIN Urine Panel: No results found for: UQCANN, UQBNZL, WYG9YXV, UQAMPH, UQMAMP, UQBUPRE, UQNORBUP, UQMTHD, UQEDDP, UQTRAM, UQDTRM, UQFNTL, UQNFTL, UQCODE, UQMORP, UQDCDN, UQHCOD, UQOXYC, UQHMOR, UQOXYM, UQCREA, UQPH, UQSPGR, UQOXID, UQSPQ Lab Results Component Value Date SUMM FINAL 03/03/2023 Summary Report (Summary) Date Value Ref Range Status 09/01/2022 FINAL Final Comment: TOXASSURE COMP DRUG ANALYSIS,UR Test Result Flag Units Drug Present and Declared for Prescription Verification Buprenorphine 16 EXPECTED ng/mg creat Norbuprenorphine 16 EXPECTED ng/mg creat Source of buprenorphine is a scheduled prescription medication. Norbuprenorphine is an expected metabolite of buprenorphine. Gabapentin PRESENT EXPECTED Drug Present not Declared for Prescription Verification Topiramate PRESENT UNEXPECTED Lamotrigine PRESENT UNEXPECTED Zolpidem Acid PRESENT UNEXPECTED Zolpidem acid is an expected metabolite of zolpidem. Trazodone PRESENT UNEXPECTED 1,3 chlorophenyl piperazine PRESENT UNEXPECTED 1,3-chlorophenyl piperazine is an expected metabolite of trazodone. Ziprasidone PRESENT UNEXPECTED Diphenhydramine PRESENT UNEXPECTED Benztropine PRESENT UNEXPECTED Test Result Flag Units Ref Range Creatinine 31 mg/dL >=20 Declared Medications: The flagging and interpretation on this report are based on the following declared medications. Unexpected results may arise from inaccuracies in the declared medications. Note: The testing scope of this panel includes these medications: Gabapentin Note: The testing scope of this panel does not include small to moderate amounts of these reported medications: Buprenorphine For clinical consultation, please call . Last Opioid agreement effective date: 11/10/2023 Please review and advise. Cass Frey RN documented in this encounterMer[facility]02-28-2025 Telephone encounter Note * Telephone Encounter - Cass Frey RN - 12/27/2024 3:22 PM EST Patient phones requesting refills as follows: Requested Prescriptions Pending Prescriptions Disp Refills pregabalin (LYRICA) 150 mg capsule 90 capsule 3 Sig: Take 1 capsule by mouth three times a day for 120 days. Last UDS: Opioid/Non opioid agreement - 11/10/23. 12/22/23 - Bilateral subacromial bursas x 1 visit Summary Report Date Value Ref Range Status 03/03/2023 FINAL Final Comment: Gabapentin, MS, Ur RFX ToxAssure Flex 23, Ur Test Result Flag Units Drug Present and Declared for Prescription Verification Buprenorphine 8 EXPECTED ng/mg creat Norbuprenorphine 38 EXPECTED ng/mg creat Source of buprenorphine is a scheduled prescription medication. Norbuprenorphine is an expected metabolite of buprenorphine. Gabapentin PRESENT EXPECTED Drug Present not Declared for Prescription Verification Zolpidem Acid PRESENT UNEXPECTED Zolpidem acid is an expected metabolite of zolpidem. Test Result Flag Units Ref Range Creatinine 40 mg/dL >=20 Declared Medications: The flagging and interpretation on this report are based on the following declared medications. Unexpected results may arise from inaccuracies in the declared medications. Note: The testing scope of this panel includes these medications: Gabapentin Note: The testing scope of this panel does not include small to moderate amounts of these reported medications: Buprenorphine For clinical consultation, please call . No results found for: UQNOTE, OPIATEPNMGT, DRUGSCRPAIN Urine Panel: No results found for: UQCANN, UQBNZL, LUA6KZD, UQAMPH, UQMAMP, UQBUPRE, UQNORBUP, UQMTHD, UQEDDP, UQTRAM, UQDTRM, UQFNTL, UQNFTL, UQCODE, UQMORP, UQDCDN, UQHCOD, UQOXYC, UQHMOR, UQOXYM, UQCREA, UQPH, UQSPGR, UQOXID, UQSPQ Lab Results Component Value Date SUMM FINAL 03/03/2023 Summary Report (Summary) Date Value Ref Range Status 09/01/2022 FINAL Final Comment: TOXASSURE COMP DRUG ANALYSIS,UR Test Result Flag Units Drug Present and Declared for Prescription Verification Buprenorphine 16 EXPECTED ng/mg creat Norbuprenorphine 16 EXPECTED ng/mg creat Source of buprenorphine is a scheduled prescription medication. Norbuprenorphine is an expected metabolite of buprenorphine. Gabapentin PRESENT EXPECTED Drug Present not Declared for Prescription Verification Topiramate PRESENT UNEXPECTED Lamotrigine PRESENT UNEXPECTED Zolpidem Acid PRESENT UNEXPECTED Zolpidem acid is an expected metabolite of zolpidem. Trazodone PRESENT UNEXPECTED 1,3 chlorophenyl piperazine PRESENT UNEXPECTED 1,3-chlorophenyl piperazine is an expected metabolite of trazodone. Ziprasidone PRESENT UNEXPECTED Diphenhydramine PRESENT UNEXPECTED Benztropine PRESENT UNEXPECTED Test Result Flag Units Ref Range Creatinine 31 mg/dL >=20 Declared Medications: The flagging and interpretation on this report are based on the following declared medications. Unexpected results may arise from inaccuracies in the declared medications. Note: The testing scope of this panel includes these medications: Gabapentin Note: The testing scope of this panel does not include small to moderate amounts of these reported medications: Buprenorphine For clinical consultation, please call . Last Opioid agreement effective date: 11/10/2023 Please review and advise. Cass Frey RN [facility]02-25-[facility]25 NoteHNO ID: [id number] Author: KIMBERLEY TY PT Service: ? Author Type: Physical Therapist Type: Progress Notes Filed: 12/24/2024 15:36 Note Text: Episode Visit Count: 4 Therapist That Will Accept/Oversee The Plan Of Care: Joanna Rey Start of Care Date: 11/25/24 Onset Date: 07/30/24 (months ago) Plan of Care Certification Date: 11/25/24 Next Certification Due Date: 01/23/25 Patient Identified by Name and Date of : Yes REHABILITATION AND SPORTS THERAPY PHYSICAL THERAPY TREATMENT NOTE ASSESSMENT: Sheila Crowe tolerated the session with fatigue and expected muscle soreness. She demonstrated difficulty with ER stretch. The patient will continue to benefit from ongoing skilled physical therapy to progress toward set goals. PLAN FOR NEXT VISIT: Asses response to table slides. SUBJECTIVE: Pt reports that her shoulder is about the same. In a small range her exercsies don't hurt, but does not feel like her ROM or pain is changing at all. Pain: Pain Pain Level: 5 Pain Location: Shoulder - Left (subacromial/deltoid region) Frequency: Continuous Post Treatment Pain Post Treatment Pain Level: No Change Post Treatment Pain Location: Shoulder - Left OBJECTIVE MEASURES WITH LEVEL OF FUNCTION: TREATMENT: Therapeutic Exercise: 1: B levator scap stretch 3x30 seconds 2: B UT stretch 3x30 seconds 3: Pulleys for flexion 2x8 4: *Seated table slides 2x10 5: *IR behind back with pulleys 2x10 6: ER stretch with strap x10 7: Scapular retractions 2x10 Skilled Intervention: Patient was educated in proper exercise technique and purpose for exercises. Reviewed and educated patient on additions/changes for home exercise program as above (*). Skilled judgment was used in selection of appropriate interventions. Correct performance of therapeutic exercises was facilitated with verbal and visual cuing. Billing Therapeutic Exercise Treatment Minutes: 42 Skilled Treatment Time Minutes (timed and untimed codes): 42 Total Session Time (minutes): 42 Session Start Time : 1432 Session Stop Time : 1514 HARMAN Childs, [facility]02-25-2025 History of Present illness Narrative* Kimberley Ty, PT - 12/24/2024 2:34 PM EST Episode Visit Count: 4 Therapist That Will Accept/Oversee The Plan Of Care: Eloyjames Joanna Start of Care Date: 11/25/24 Onset Date: 07/30/24 (months ago) Plan of Care Certification Date: 11/25/24 Next Certification Due Date: 01/23/25 Patient Identified by Name and Date of : Yes REHABILITATION AND SPORTS THERAPY PHYSICAL THERAPY TREATMENT NOTE ASSESSMENT: Sheila Crowe tolerated the session with fatigue and expected muscle soreness. She demonstrated difficulty with ER stretch. The patient will continue to benefit from ongoing skilled physical therapy to progress toward set goals. PLAN FOR NEXT VISIT: Asses response to table slides. SUBJECTIVE: Pt reports that her shoulder is about the same. In a small range her exercsies don't hurt, but does not feel like her ROM or pain is changing at all. Pain: Pain Pain Level: 5 Pain Location: Shoulder - Left (subacromial/deltoid region) Frequency: Continuous Post Treatment Pain Post Treatment Pain Level: No Change Post Treatment Pain Location: Shoulder - Left OBJECTIVE MEASURES WITH LEVEL OF FUNCTION: TREATMENT: Therapeutic Exercise: 1: B levator scap stretch 3x30 seconds 2: B UT stretch 3x30 seconds 3: Pulleys for flexion 2x8 4: *Seated table slides 2x10 5: *IR behind back with pulleys 2x10 6: ER stretch with strap x10 7: Scapular retractions 2x10 Skilled Intervention: Patient was educated in proper exercise technique and purpose for exercises. Reviewed and educated patient on additions/changes for home exercise program as above (*). Skilled judgment was used in selection of appropriate interventions. Correct performance of therapeutic exercises was facilitated with verbal and visual cuing. Billing Therapeutic Exercise Treatment Minutes: 42 Skilled Treatment Time Minutes (timed and untimed codes): 42 Total Session Time (minutes): 42 Session Start Time : 1432 Session Stop Time : 1514 HARMAN Childs PT documented in this encounterMer[facility]02-12-2025 History of Present illness Narrative* Rachel Whiteside PTA - 12/11/2024 3:19 PM EST Program_ID:[id number] Access Code: [email or web address] URL: [email or web address] Date: 12-11-2024 Prepared By: Rachel Whiteside Program Notes Exercises - Seated Shoulder Flexion AAROM with Dez Behind - 2-3 x daily - 7 x weekly - 1-2 sets - 10 reps - Seated Shoulder External Rotation AAROM with Cane and Hand in Neutral - 2-3 x daily - 7 x weekly - 1-2 sets - 10 reps - Standing Shoulder Extension AAROM with Dowel - 2-3 x daily - 7 x weekly - 1-2 sets - 10 reps - Gentle Levator Scapulae Stretch - 1 x daily - 7 x weekly - 1 sets - 3 reps - Seated Gentle Upper Trapezius Stretch - 1 x daily - 7 x weekly - 1 sets - 3 reps - Supine Chest Stretch with Elbows Bent - 1 x daily - 7 x weekly - 1 sets - 3 reps - Seated Scapular Retraction - 1 x daily - 7 x weekly - 2 sets - 10 reps * Kimberley Ty, PT - 12/11/2024 2:47 PM EST Episode Visit Count: 3 Therapist That Will Accept/Oversee The Plan Of Care: Joanna Rey Start of Care Date: 11/25/24 Onset Date: 07/30/24 (months ago) Plan of Care Certification Date: 11/25/24 Next Certification Due Date: 01/23/25 Patient Identified by Name and Date of : Yes REHABILITATION AND SPORTS THERAPY PHYSICAL THERAPY TREATMENT NOTE ASSESSMENT: Sheila Crowe tolerated the session with fatigue, decreased symptoms, and expected muscle soreness. She demonstrated improvements in tightness throughout L shoulder and neck with stretching. The patient will continue to benefit from ongoing skilled physical therapy to progress toward set goals. PLAN FOR NEXT VISIT: Asses response to neck stretching. Continue with AAROM exercises for L shoulder. SUBJECTIVE: Pt reports that her shoulder still hurts, might kaylee a little better. New exercises wentbetter for her.Hard for her to fully relax the L arm, epscially with pulleys. Pain: Pain Pain Level: 5 Pain Location: Shoulder - Left (subacromial/deltoid region) Frequency: Continuous Post Treatment Pain Post Treatment Pain Level: Better Post Treatment Pain Location: Shoulder - Left OBJECTIVE MEASURES WITH LEVEL OF FUNCTION: Improved neck mobility and decreased scapular elevation bilaterally. TREATMENT: Therapeutic Exercise: 1: Pulleys for flexion 2x8 2: * B levator scap stretch 3x30 seconds 3: * B UT stretch 3x30 seconds 4: *Pect stretch in supine with arms behind the head x30 seconds 5: * Seated scapular retractions 2x10 Skilled Intervention: Patient was educated in proper exercise technique and purpose for exercises. Reviewed and educated patient on additions/changes for home exercise program as above (*). Skilled judgment was used in selection of appropriate interventions. Provided written instruction for home exercise program to facilitate proper performance and compliance. Correct performance of therapeutic exercises was facilitated with verbal and visual cuing. Billing Therapeutic Exercise Treatment Minutes: 41 Skilled Treatment Time Minutes (timed and untimed codes): 41 Total Session Time (minutes): 41 Session Start Time : 1445 Session Stop Time : 1526 HARMAN Childs PT documented in this encounterMer[facility]02-12-2025 NoteHNO ID: [id number] Author: KIMBERLEY TY PT Service: ? Author Type: Physical Therapist Type: Progress Notes Filed: 12/11/2024 17:33 Note Text: Episode Visit Count: 3 Therapist That Will Accept/Oversee The Plan Of Care: Joanna Rey Start of Care Date: 11/25/24 Onset Date: 07/30/24 (months ago) Plan of Care Certification Date: 11/25/24 Next Certification Due Date: 01/23/25 Patient Identified by Name and Date of : Yes REHABILITATION AND SPORTS THERAPY PHYSICAL THERAPY TREATMENT NOTE ASSESSMENT: Sheila Crowe tolerated the session with fatigue, decreased symptoms, and expected muscle soreness. She demonstrated improvements in tightness throughout L shoulder and neck with stretching. The patient will continue to benefit from ongoing skilled physical therapy to progress toward set goals. PLAN FOR NEXT VISIT: Asses response to neck stretching. Continue with AAROM exercises for L shoulder. SUBJECTIVE: Pt reports that her shoulder still hurts, might kaylee a little better. New exercises went better for her.Hard for her to fully relax the L arm, epscially with pulleys. Pain: Pain Pain Level: 5 Pain Location: Shoulder - Left (subacromial/deltoid region) Frequency: Continuous Post Treatment Pain Post Treatment Pain Level: Better Post Treatment Pain Location: Shoulder - Left OBJECTIVE MEASURES WITH LEVEL OF FUNCTION: Improved neck mobility and decreased scapular elevation bilaterally. TREATMENT: Therapeutic Exercise: 1: Pulleys for flexion 2x8 2: * B levator scap stretch 3x30 seconds 3: * B UT stretch 3x30 seconds 4: *Pect stretch in supine with arms behind the head x30 seconds 5: * Seated scapular retractions 2x10 Skilled Intervention: Patient was educated in proper exercise technique and purpose for exercises. Reviewed and educated patient on additions/changes for home exercise program as above (*). Skilled judgment was used in selection of appropriate interventions. Provided written instruction for home exercise program to facilitate proper performance and compliance. Correct performance of therapeutic exercises was facilitated with verbal and visual cuing. Billing Therapeutic Exercise Treatment Minutes: 41 Skilled Treatment Time Minutes (timed and untimed codes): 41 Total Session Time (minutes): 41 Session Start Time : 1445 Session Stop Time : 1526 HARMAN Childs, [facility]02-10-2025 History of Present illness Narrative* Rachel Whiteside PTA - 12/09/2024 11:26 AM EST Program_ID:[id number] Access Code: [email or web address] URL: [email or web address] Date: 12-09-2024 Prepared By: Rachel Whiteside Program Notes Exercises - Seated Shoulder Flexion AAROM with Dez Behind - 2-3 x daily - 7 x weekly - 1-2 sets - 10 reps - Seated Shoulder External Rotation AAROM with Cane and Hand in Neutral - 2-3 x daily - 7 x weekly - 1-2 sets - 10 reps - Standing Shoulder Extension AAROM with Dowel - 2-3 x daily - 7 x weekly - 1-2 sets - 10 reps * Joanna Rey, PT - 12/09/2024 10:53 AM EST Episode Visit Count: 2 Therapist That Will Accept/Oversee The Plan Of Care: Joanna Rey Start of Care Date: 11/25/24 Onset Date: 07/30/24 (months ago) Plan of Care Certification Date: 11/25/24 Next Certification Due Date: 01/23/25 Patient Identified by Name and Date of : Yes REHABILITATION AND SPORTS THERAPY PHYSICAL THERAPY TREATMENT NOTE ASSESSMENT: Sheila Crowe tolerated the session with decreased activity tolerance due to increased pain and decreased ROM, fatigue, and expected muscle soreness. She demonstrated difficulty with AAROM flexion with wand. The patient will continue to benefit from ongoing skilled physical therapy toprogress toward set goals. PLAN FOR NEXT VISIT: Asses response to wand AAROM exercises. SUBJECTIVE: Pt reports that she has new pain in the front and back of her L shoudler. Was doing good with ROM and now it is limited since evaluation. Hurts more not doing anything now than it did andhard to get comfortable. Some pain with the strengthening exercises, but not a lot. Pain: Pain Pain Level: 6 (increases with movement 8/10) Pain Location: Shoulder - Left (subacromial/deltoid region) Frequency: Continuous Post Treatment Pain Post Treatment Pain Level: No Change Post Treatment Pain Location: Shoulder - Left OBJECTIVE MEASURES WITH LEVEL OF FUNCTION: UE AROM L Shoulder Flex: 70 Degrees (AAROM with wand in sitting and painful) TREATMENT: Therapeutic Exercise: 1: *Pulleys for flexion 2x8 2: Attempted shoulder flexion x3 with wand seated, unable to tolerate due to pain 3: Attempted wand press in supine, discontinued due to increase in pain near biceps tendon 4: Wand AAROM ER in supine 2x10 5: *Wand AAROM ER in sitting x10 6: *Standing wand AAROM extension 2x10 Skilled Intervention: Patient was educated in proper exercise technique and purpose for exercises. Reviewed and educated patient on additions/changes for home exercise program as above (*). Skilled judgment was used in selection of appropriate interventions. Provided written instruction for home exercise program to facilitate proper performance and compliance. Correct performance of therapeutic exercises was facilitated with verbal and visual cuing. Billing Therapeutic Exercise Treatment Minutes: 46 Skilled Treatment Time Minutes (timed and untimed codes): 46 Total Session Time (minutes): 46 Session Start Time : 1051 Session Stop Time : 1137 HARMAN Childs PT documented [facility] NoteHNO ID: [id number] Author: JOANNA REY PT Service: ? Author Type: Physical Therapist Type: Progress Notes Filed: 12/09/2024 11:56 Note Text: Episode Visit Count: 2 Therapist That Will Accept/Oversee The Plan Of Care: Joanna Rey Start of Care Date: 11/25/24 Onset Date: 07/30/24 (months ago) Plan of Care Certification Date: 11/25/24 Next Certification Due Date: 01/23/25 Patient Identified by Name and Date of : Yes REHABILITATION AND SPORTS THERAPY PHYSICAL THERAPY TREATMENT NOTE ASSESSMENT: Sheila Crowe tolerated the session with decreased activity tolerance due to increased pain and decreased ROM, fatigue, and expected muscle soreness. She demonstrated difficulty with AAROM flexion with wand. The patient will continue to benefit from ongoing skilled physical therapy to progress toward set goals. PLAN FOR NEXT VISIT: Asses response to wand AAROM exercises. SUBJECTIVE: Pt reports that she has new pain in the front and back of her L shoudler. Was doing good with ROM and now it is limited since evaluation. Hurts more not doing anything now than it did and hard to get comfortable. Some pain with the strengthening exercises, but not a lot. Pain: Pain Pain Level: 6 (increases with movement 8/10) Pain Location: Shoulder - Left (subacromial/deltoid region) Frequency: Continuous Post Treatment Pain Post Treatment Pain Level: No Change Post Treatment Pain Location: Shoulder - Left OBJECTIVE MEASURES WITH LEVEL OF FUNCTION: UE AROM L Shoulder Flex: 70 Degrees (AAROM with wand in sitting and painful) TREATMENT: Therapeutic Exercise: 1: *Pulleys for flexion 2x8 2: Attempted shoulder flexion x3 with wand seated, unable to tolerate due to pain 3: Attempted wand press in supine, discontinued due to increase in pain near biceps tendon 4: Wand AAROM ER in supine 2x10 5: *Wand AAROM ER in sitting x10 6: *Standing wand AAROM extension 2x10 Skilled Intervention: Patient was educated in proper exercise technique and purpose for exercises. Reviewed and educated patient on additions/changes for home exercise program as above (*). Skilled judgment was used in selection of appropriate interventions. Provided written instruction for home exercise program to facilitate proper performance and compliance. Correct performance of therapeutic exercises was facilitated with verbal and visual cuing. Billing Therapeutic Exercise Treatment Minutes: 46 Skilled Treatment Time Minutes (timed and untimed codes): 46 Total Session Time (minutes): 46 Session Start Time : 1051 Session Stop Time : 1137 Rachel Whiteside, TOOL STORAGE ATTENDANT Joanna Rey, [facility]01-27-2025 History of Present illness Narrative* Joanna Rey, PT - 11/25/2024 6:05 PM EST Program_ID:[id number] Access Code: [email or web address] URL: [email or web address] Date: 11-25-2024 Prepared By: Salvador Hart Program Notes Exercises - Hooklying Single Knee to Chest Stretch - 1-2 x daily - 5-7 x weekly - 2-3 sets - reps - Supine Double Knee to Chest - 1-2 x daily - 5-7 x weekly - 2-3 sets - reps - Supine Posterior Pelvic Tilt - 2 x daily - 5-7 x weekly - 2 sets - 10 reps - Child's Pose Stretch - 1-2 x daily - 5-7 x weekly - 2-3 sets - reps - Cat Cow - 1-2 x daily - 5-7 x weekly - 2 sets - 10 reps - Anti-Rotation Press With Sidesteps and Anchored Resistance - 2 x daily - 5-7 x weekly - 2 sets - 8-10 reps - Seated Transversus Abdominis Bracing - 2 x daily - 5-7 x weekly - 2 sets - 10 reps - Shoulder Extension with Resistance - 1 x daily - 7 x weekly - 2 sets - 10 reps - Shoulder Internal Rotation with Resistance - 1 x daily - 7 x weekly - 2 sets - 10 reps - Shoulder External Rotation with Anchored Resistance - 1 x daily - 7 x weekly - 2 sets - 10 reps * Joanna Rey, PT - 11/25/2024 5:45 PM EST Images from the original note were not included. Episode Visit Count: 1 Therapist That Will Accept/Oversee The Plan Of Care: Joanna Rey Start of Care Date: 11/25/24 Onset Date: 07/30/24 (months ago) Plan of Care Certification Date: 11/25/24 Next Certification Due Date: 01/23/25 Patient Identified by Name and Date of : Yes REHABILITATION AND SPORTS THERAPY PHYSICAL THERAPY EVALUATION PLAN OF CARE: Assessment: Sheila Crowe presents with diagnosis of subacromial bursitis both shoulders and bilateral shld region arthritis that interferes with sleeping, reaching overhead, use hand with arm at shoulder level, Comments, carrying, grooming sewing, cutting material for quilting, blowdrying hair. The patient presents with impairments in overall function, range of motion, strength, symptom management, and tissue tenderness. Patient did not complete the PROMIS (Patient Reported Outcome Measures Information System). Prognosis for therapy is Good due to: current objective clinical presentation, good overall health status, good support system/ coping skills, Prognosis may be limited due to chronic nature of impairments . The patient will benefit from skilled therapy services to meet the goalsestablished for this plan of care as noted below. Goals for Episode of Care: established 11/25/24 [place] in home exercise program. Patient will decrease pain rating by 2 points to meet minimal clinical important difference for numeric pain rating scale. Patient will increase active ROM of L shld to 160-170deg flex, abd, 50-60deg ER to allow pt to to improve postural alignment and to improve performance of ADLs. Patient will demonstrate increase in L UE strength to 4 to 4+/5 during manual muscle testing in order to improve function for home management tasks, leisure / recreation skills, and prior functional tasks. Perform sleeping;reaching overhead;use hand with arm at shoulder level;Comments;carrying;grooming; without pain. Improve postural awareness. Patient Goals: Improved function/mobility of L UE and alleviate pain Time Frame for Goals and Treatment : 01/23/25 Planned Interventions, Frequency, and Duration: Current Frequency: 2x/week Duration: 8 weeks Total Number of Visits Planned: 16 Planned Treatment Interventions: Therapeutic exercise (76913), Neuromuscular re- education (54084), Manual therapy (70443), Self-alf management (32542), Patient/Family/Caregiver Education PLAN FOR NEXT VISIT: Assess performance of and response to HEP. Continue to progress with strengthening and ROM. may add manual techniques as needed for pain relief. Patient demonstrates good understanding of plan of care and treatment. The above goals and plan of care were discussed and agreed upon by patient/family. SUBJECTIVE: Pt reports c/c of limited mobility of L UE including sewing, using paper cutter operator for material (quilting), and is very active with exercising as she has lost 300lb and is determined not to gain it back. Injections have always helped in the past. This time, injections 09/17/24 resolved R shoulder pain, but L helped with sagittal motions, but still painful and limited with abd, ER. Pt feels that the cold weather also tightens her up and can feel more painful in joints/all over. Patient Goals: Improved function/mobility of L UE and alleviate pain Functional Limitations: sleeping, reaching overhead, use hand with arm at shoulder level, Comments,carrying, grooming Functional Limitation Comments: sewing, cutting material for quilting, blowdrying hair Relevant History Right or Left Handed: Right Employment: Medically Disabled Recreation / Current Exercise: regular exercise Intake Information: Prescription present Previous Treatment: Injections , Pain meds (meloxicam, lyrica) Pain: Pain Pain Level: 6 (up to 8/10 with reaching/ER, as low as 2-3 at rest) Pain Location: Shoulder - Left (subacromial/deltoid region) Description: Burning, Aching (a tearing, ripping pain) Frequency: Continuous Post Treatment Pain Post Treatment Pain Level: 6 Post Treatment Pain Location: Shoulder - Left PROMIS Scales 08/07/2024 07/04/2024 06/25/2024 Higher is Better Phys Func - T Score 47 (within normal limits) 40 (mild dysfunction) Phys Func - Percentile 38 16 Self-Eff Symptom - T Score 41 (Average) 44 (Average) Self-Eff Symptom - Percentile 18 27 T-scores: mean of general population = 50. 5 points is clinically meaningfully difference Percentiles provide an indication of how the patient's score ranks in relation to the general population. Higher percentile rankings indicate better function/quality of life. 50th percentile is the average of the general population and indicates half of respondents had a worse score. OBJECTIVE MEASURES WITH LEVEL OF FUNCTION: Shoulder Observations L Shoulder Palpation Tenderness: Bicipital groove, Comments L Shoulder Palpation Tenderness Comments: subacromial space UE AROM R Shoulder Extension: 68 Degrees R Shoulder Flex: 160 Degrees R Shoulder ABduction: 175 Degrees R Shoulder Internal Rotation (Functional): 2.5inches below inferior angle of scapula R Shoulder External Rotation: 80 Degrees L Shoulder Extension: 65 Degrees (minimal discomfort) L Shoulder Flex: 145 Degrees (mild pain) L Shoulder ABduction: 95 Degrees (pain) L Shoulder Internal Rotation (Functional): 5 inches below inferior angle of scapula (pain pulling front of shoulder) L Shoulder External Rotation: 40 Degrees (tight and pain) UE and Cervical Strength R UE Strength: 4 to 4+ L UE Strength: flex 4, abd 3+ with increased pain, IR 4 with pain, ER 4- with increased pain Special Tests - Shoulder Shoulder Special Tests: Empty Can Empty Can: Left Positive Vitals BP: (not assessed today) Education: Education Learning Preferences: Demonstration, Explanation Barriers: None Learning/educational needs: Home exercise program, Plan of Care Education Provided: Yes, see treatment interventions for education provided Education Provided To: Patient Education Mode/Type: Demonstration, Explanation/Discussion, Literature/Printed Materials, Performance Response to Education/Teach Back: States/Identifies, Return Demonstration TREATMENT: PT Treatment Interventions: Therapeutic Exercise Evaluation Therapeutic Exercise: 1: *L shld ext, pink band 2 x 10 2: *L shld IR, pink band 2 x 10 3: *L shld ER, pink band 2 x 10 4: Educated pt in anatomy of shoulder and evaluation findings related to her sympotms. Instruction in avoidance of irritating positions, movements of L UE. Skilled Intervention: Patient was educated in proper exercise technique and purpose for exercises. Skilled judgment was used in selection of appropriate interventions. Provided written instruction for home exercise program to facilitate proper performance and compliance. Correct performance of therapeutic exercises was facilitated with verbal and visual cuing. Patient education as noted. Billing * Evaluation Low Complexity: 1 Unit Therapeutic Exercise Treatment Minutes: 23 Skilled Treatment Time Minutes (timed and untimed codes): 47 Total Session Time (minutes): 47 Session Start Time : 1717 Session Stop Time : 180 Joanna Rey PT documented in this [facility]Mer[facility]-27-[facility]25 NoteHNO ID: [id number] Author: JOANNA REY PT Service: ? Author Type: Physical Therapist Type: Progress Notes Filed: 11/25/2024 19:37 Note Text: Episode Visit Count: 1 Therapist That Will Accept/Oversee The Plan Of Care: Joanna Rey Start of Care Date: 11/25/24 Onset Date: 07/30/24 (months ago) Plan of Care Certification Date: 11/25/24 Next Certification Due Date: 01/23/25 Patient Identified by Name and Date of : Yes REHABILITATION AND SPORTS THERAPY PHYSICAL THERAPY EVALUATION PLAN OF CARE: Assessment: Sheila Crowe presents with diagnosis of subacromial bursitis both shoulders and bilateral shld region arthritis that interferes with sleeping, reaching overhead, use hand with arm at shoulder level, Comments, carrying, grooming sewing, cutting material for quilting, blowdrying hair. The patient presents with impairments in overall function, range of motion, strength, symptom management, and tissue tenderness. Patient did not complete the PROMIS? (Patient Reported Outcome Measures Information System). Prognosis for therapy is Good due to: current objective clinical presentation, good overall health status, good support system/ coping skills, Prognosis may be limited due to chronic nature of impairments . The patient will benefit from skilled therapy services to meet the goals established for this plan of care as noted below. Goals for Episode of Care: established 11/25/24 [place] in home exercise program. Patient will decrease pain rating by 2 points to meet minimal clinical important difference for numeric pain rating scale. Patient will increase active ROM of L shld to 160-170deg flex, abd, 50-60deg ER to allow pt to to improve postural alignment and to improve performance of ADLs. Patient will demonstrate increase in L UE strength to 4 to 4+/5 during manual muscle testing in order to improve function for home management tasks, leisure / recreation skills, and prior functional tasks. Perform sleeping;reaching overhead;use hand with arm at shoulder level;Comments;carrying;grooming; without pain. Improve postural awareness. Patient Goals: Improved function/mobility of L UE and alleviate pain Time Frame for Goals and Treatment : 01/23/25 Planned Interventions, Frequency, and Duration: Current Frequency: 2x/week Duration: 8 weeks Total Number of Visits Planned: 16 Planned Treatment Interventions: Therapeutic exercise (65863), Neuromuscular re-education (29584), Manual therapy (43617), Self-alf management (46570), Patient/Family/Caregiver Education PLAN FOR NEXT VISIT: Assess performance of and response to HEP. Continue to progress with strengthening and ROM. may add manual techniques as needed for pain relief. Patient demonstrates good understanding of plan of care and treatment. The above goals and plan of care were discussed and agreed upon by patient/family. SUBJECTIVE: Pt reports c/c of limited mobility of L UE including sewing, using paper cutter operator for material (quilting), and is very active with exercising as she has lost 300lb and is determined not to gain it back. Injections have always helped in the past. This time, injections 09/17/24 resolved R shoulder pain, but L helped with sagittal motions, but still painful and limited with abd, ER. Pt feels that the cold weather also tightens her up and can feel more painful in joints/all over. Patient Goals: Improved function/mobility of L UE and alleviate pain Functional Limitations: sleeping, reaching overhead, use hand with arm at shoulder level, Comments, carrying, grooming Functional Limitation Comments: sewing, cutting material for quilting, blowdrying hair Relevant History Right or Left Handed: Right Employment: Medically Disabled Recreation / Current Exercise: regular exercise Intake Information: Prescription present Previous Treatment: Injections , Pain meds (meloxicam, lyrica) Pain: Pain Pain Level: 6 (up to 8/10 with reaching/ER, as low as 2-3 at rest) Pain Location: Shoulder - Left (subacromial/deltoid region) Description: Burning, Aching (a tearing, ripping pain) Frequency: Continuous Post Treatment Pain Post Treatment Pain Level: 6 Post Treatment Pain Location: Shoulder - Left PROMIS Scales 08/07/2024 07/04/2024 06/25/2024 Higher is Better Phys Func - T Score 47 (within normal limits) 40 (mild dysfunction) Phys Func - Percentile 38 16 Self-Eff Symptom - T Score 41 (Average) 44 (Average) Self-Eff Symptom - Percentile 18 27 T-scores: mean of general population = 50. 5 points is clinically meaningfully difference Percentiles provide an indication of how the patient's score ranks in relation to the general population. Higher percentile rankings indicate better function/quality of life. 50th percentile is the average of the general population and indicates half of respondents had a worse score. OBJECTIVE MEASURES WITH LEVEL OF FUNCTION: Shou (more content not included)...[facility]01-24-2025 Instructions* Patient Instructions* Freeman Sarabia PA-C - 11/22/2024 11:35 AM EST The OARRS report has been reviewed and is consistent with the patients medical history and medication intake. Continue with the pregabalin, meloxicam, and diclofenac gel. Continue with the PT exercises for your back at home on your own Order PT for the shoulders and will consider an MRI if there is inadequate relief for the left shoulder pain we will consider ordering an MRI for further evaluation. She would like to do this in [place]. Continue using the TENS unit. Continue doing your yoga and strengthening exercises, but make sure you give your body a chance to rest. FU in the office in 3 months Continue to FU with the net developer architect for the neuropathy. FU with your psychiatrist regarding the sleep/miguel issues Continue with the kinesiology tape/roller ball on the feet. You can use CBD oil, just avoid THC, and delta 8 and delta 9. Supervising Physiciain - Dr. Isaac Cannon MD documented in this encounterMer[facility]01-24-2025 NoteHNO ID: [id number] Author: FREEMAN SARABIA PA-C Service: ? Author Type: Physician Director Of Restaurants Type: Progress Notes Filed: 11/22/2024 11:49 Note Text: This note was created using [email or web address] Subjective Sheila Crowe is a 44 year old female. The patient primarily being seen for back, bilateral knee and shoulder, and generalized body pain Patient was last seen on: 08/28/24 At that time, the treatment plan was: see notes Current Meds: pregabalin - am, meloxicam - am Efficacy: help Side effects: denies TENS unit: yes How often used: daily Benefit: helps Physical Therapy: July - [facility] Last UDS: 09/28/23 - not using narcotics Last injection: 09/17/24 - Bilateral subacromial bursa injections OARRS reviewed At the present time, the patient reports benefit with her present analgesic therapy. She denies any adverse effects. Since her previous visit, she denies any hospitalizations or ER visits. She states that the bilateral subacromial bursa injections relieved 100% of her pain on the right, but did not help much on the left. 09/17/2024 11/22/2024 INTAKE PAIN ASSESSMENT Are you having pain associated with your visit today? Yes, Provider notified Pain Scales Verbal (Numeric Rating or Visual Analog Scale) Pain Level 0 5 Pain Location Back-Lower Description Tightness;Aching;Burning;Sharp Frequency Continuous Intervention/Comfort measure Medication;Relaxation;Heat;Other: See comment Comments relief with injections Pain Assessment Reassessment Back Pain Pertinent negatives include no fever. Pain (Shoulder Pain) Pertinent negatives include no fever. PAST MEDICAL HISTORY Diagnosis Date Allergic rhinitis due to other allergen Bipolar I disorder, most recent episode (or current) unspecified hosp 04 mutile suicide attempts/Dr. Jenkins Hypercalcemia Migraine without aura Morbid obesity (HCC) stated BMI HT: 68 WT: 375 Myalgia and myositis, unspecified Other specified cardiac dysrhythmias(427.89) PMH - PAST MEDICAL HISTORY OF MONO Unspecified essential hypertension PAST SURGICAL HISTORY Procedure Laterality Date ADENOIDECTOMY PRIMARY Adenoidectomy COLONOSCOPY W/BIOPSY SINGLE/MULTIPLE 12/23/2019 EXTRACTION, ERUPTED TOOTH OR EXPOSED ROOT (ELEVATION AND/OR FORCEPS REMOVAL) 1995 [place] teeth TONSILLECTOMY PRIMARY/SECONDARY Tonsillectomy Social History Tobacco Use Smoking status: Former Current packs/day: 0.00 Types: Cigarettes Quit date: 06/16/2008 Years since quittin.4 Smokeless tobacco: Never Vaping Use Vaping status: Never Used Substance Use Topics Alcohol use: No Drug use: No Review of Systems Constitutional: Negative for fever and unexpected weight change. Musculoskeletal: Positive for back pain. +back pain, joint pain, muscle cramps/weakness, stiffness, arthritis, and leg pain with exertion. Objective BP 133/90 (BP Site: Left Arm, BP Position: Sitting, BP Cuff Size: Regular Adult) Pulse 71 Resp 18 Wt 82.6 kg (182 lb) LMP 02/22/2024 SpO2 100% BMI 27.67 kg/m? Physical Exam Vitals and nursing note reviewed. Constitutional: Appearance: Normal appearance. She is well-developed, well-groomed and overweight. HENT: Head: Normocephalic and atraumatic. Right Ear: Hearing normal. Left Ear: Hearing normal. Eyes: Conjunctiva/sclera: Conjunctivae normal. Comments: Wearing glasses Musculoskeletal: Comments: The patient walks with a normal gait. There is tenderness to palpation in the cervical and lumbar region with spasms noted in the trapezius, paraspinal, and latissimus dorsi muscles. She has tenderness noted over the right SI joint Strength is 5/5 throughout. Sensation is intact to light touch throughout. SLR is negative. She has tenderness to palpation in the knees bilaterally. There is tenderness noted in the left shoulder over the acromioclavicular joint with decreased ROM in all planes secondary to pain Neurological: Mental Status: She is alert and oriented to person, place, and time. Psychiatric: Attention and Perception: Attention and perception normal. Mood and Affect: Mood and affect normal. Speech: Speech normal. Behavior: Behavior normal. Behavior is cooperative. Thought Content: Thought content normal. Judgment: Judgment normal. Assessment and Plan ASSESSMENT/PLAN: 1. Fibromyalgia - ICD9: 729.1, ICD10: M79.7 (primary diagnosis) 2. Primary osteoarthritis of both knees - ICD9: 715.16, ICD10: M17.0 - MELOXICAM 15 MG TABLET 3. Subacromial bursitis of both shoulders - ICD9: 726.19, ICD10: M75.51, M75.52 - CONSULT TO PHYSICAL THERAPY 4. Sacroiliitis (HCC) - ICD9: 720.2, ICD10: M46.1 5. Neuropathy involving both lower extremities - ICD9: 356.9, ICD10: G57.93 6. Generalized anxiety disorder - ICD9: 300.02, ICD10: F41.1 7. Bilateral shoulder region arthritis - ICD9: 716.91, ICD10: M19.011, M19.012 - CONSULT TO PHYSICAL THERAPY PLAN: The OARRS report has be (more content not included)...[facility] 11-22-2024 History of Present illness Narrative* Freeman Sarabia PA-C - 11/22/2024 11:30 AM EST This note was created using [email or web address]. Subjective Sheila Crowe is a 44 year old female. The patient primarily being seen for back, bilateral knee and shoulder, and generalized body pain Patient was last seen on: 08/28/24 At that time, the treatment plan was: see notes Current Meds: pregabalin - am, meloxicam - am Efficacy: help Side effects: denies TENS unit: yes How often used: daily Benefit: helps Physical Therapy: [facility] PT Last UDS: 09/28/23 - not using narcotics Last injection: 09/17/24 - Bilateral subacromial bursa injections OARRS reviewed At the present time, the patient reports benefit with her present analgesic therapy. She denies anyadverse effects. Since her previous visit, she denies any hospitalizations or ER visits. She statesthat the bilateral subacromial bursa injections relieved 100% of her pain on the right, but did nothelp much on the left. 09/17/2024 11/22/2024 INTAKE PAIN ASSESSMENT Are you having pain associated with your visit today? Yes, Provider notified Pain Scales Verbal (Numeric Rating or Visual Analog Scale) Pain Level 0 5 Pain Location Back-Lower Description Tightness;Aching;Burning;Sharp Frequency Continuous Intervention/Comfort measure Medication;Relaxation;Heat;Other: See comment Comments relief with injections Pain Assessment Reassessment Back Pain Pertinent negatives include no fever. Pain (Shoulder Pain) Pertinent negatives include no fever. PAST MEDICAL HISTORY Diagnosis Date Allergic rhinitis due to other allergen Bipolar I disorder, most recent episode (or current) unspecified hosp 04 mutile suicide attempts/Dr. Jenkins Hypercalcemia Migraine without aura Morbid obesity (HCC) stated BMI HT: 68 WT: 375 Myalgia and myositis, unspecified Other specified cardiac dysrhythmias(427.89) PMH - PAST MEDICAL HISTORY OF MONO Unspecified essential hypertension PAST SURGICAL HISTORY Procedure Laterality Date ADENOIDECTOMY PRIMARY <AGE 11 1994 Adenoidectomy COLONOSCOPY W/BIOPSY SINGLE/MULTIPLE 12/23/2019 EXTRACTION, ERUPTED TOOTH OR EXPOSED ROOT (ELEVATION AND/OR FORCEPS REMOVAL) 1995 [place] teeth TONSILLECTOMY PRIMARY/SECONDARY <AGE 11 1994 Tonsillectomy Social History Tobacco Use Smoking status: Former Current packs/day: 0.00 Types: Cigarettes Quit date: 06/16/2008 Years since quittin.4 Smokeless tobacco: Never Vaping Use Vaping status: Never Used Substance Use Topics Alcohol use: No Drug use: No Review of Systems Constitutional: Negative for fever and unexpected weight change. Musculoskeletal: Positive for back pain. +back pain, joint pain, muscle cramps/weakness, stiffness, arthritis, and leg pain with exertion. Objective BP 133/90 (BP Site: Left Arm, BP Position: Sitting, BP Cuff Size: Regular Adult) Pulse 71 Resp 18 Wt 82.6 kg (182 lb) LMP 02/22/2024 SpO2 100% BMI 27.67 kg/m Physical Exam Vitals and nursing note reviewed. Constitutional: Appearance: Normal appearance. She is well-developed, well-groomed and overweight. HENT: Head: Normocephalic and atraumatic. Right Ear: Hearing normal. Left Ear: Hearing normal. Eyes: Conjunctiva/sclera: Conjunctivae normal. Comments: Wearing glasses Musculoskeletal: Comments: The patient walks with a normal gait. There is tenderness to palpation in the cervical and lumbar region with spasms noted in the trapezius, paraspinal, and latissimus dorsi muscles. She has tenderness noted over the right SI joint Strength is 5/5 throughout. Sensation is intact to light touch throughout. SLR is negative. She has tenderness to palpation in the knees bilaterally. There is tenderness noted in the left shoulder over the acromioclavicular joint with decreased ROM in all planes secondary to pain Neurological: Mental Status: She is alert and oriented to person, place, and time. Psychiatric: Attention and Perception: Attention and perception normal. Mood and Affect: Mood and affect normal. Speech: Speech normal. Behavior: Behavior normal. Behavior is cooperative. Thought Content: Thought content normal. Judgment: Judgment normal. Assessment and Plan ASSESSMENT/PLAN: 1. Fibromyalgia - ICD9: 729.1, ICD10: M79.7 (primary diagnosis) 2. Primary osteoarthritis of both knees - ICD9: 715.16, ICD10: M17.0 - MELOXICAM 15 MG TABLET 3. Subacromial bursitis of both shoulders - ICD9: 726.19, ICD10: M75.51, M75.52 - CONSULT TO PHYSICAL THERAPY 4. Sacroiliitis (HCC) - ICD9: 720.2, ICD10: M46.1 5. Neuropathy involving both lower extremities - ICD9: 356.9, ICD10: G57.93 6. Generalized anxiety disorder - ICD9: 300.02, ICD10: F41.1 7. Bilateral shoulder region arthritis - ICD9: 716.91, ICD10: M19.011, M19.012 - CONSULT TO PHYSICAL THERAPY PLAN: The OARRS report has been reviewed and is consistent with the patients medical history and medication intake. Continue with the pregabalin, meloxicam, and diclofenac gel. Continue with the PT exercises for your back at home on your own Order PT for the shoulders and will consider an MRI if there is inadequate relief for the left shoulder pain we will consider ordering an MRI for further evaluation. She would like to do this in [place]. Continue using the TENS unit. Continue doing your yoga and strengthening exercises, but make sure you give your body a chance to rest. FU in the office in 3 months Continue to FU with the net developer architect for the neuropathy. FU with your psychiatrist regarding the sleep/miguel issues Continue with the kinesiology tape/roller ball on the feet. You can use CBD oil, just avoid THC, and delta 8 and delta 9. Freeman Sarabia PA-C * Carmel Stark RN - 11/22/2024 11:19 AM EST Lyrica am/ Meloxicam am Meds help pain Denies side effects TENS, daily-helpful 09/17/24-b/l subacromial bursa documented in this encounterMer[facility]01-[facility]-2025 NoteHNO ID: [id number] Author: CARMEL STARK RN Service: ? Author Type: Registered Nurse Type: Progress Notes Filed: 11/22/2024 11:49 Note Text: Lyrica am/ Meloxicam am Meds help pain Denies side effects TENS, daily-helpful 09/17/24-b[facility] Tele[facility] encounter Note* Telephone Encounter - Og Pastor LPN - 09/24/2024 8:41 AM EST Spoke with pt and information listed below given. Pt verbalizes understanding. Og Pastor LPN [facility]11-26-2024 Miscellaneous Notes* Telephone Encounter - Og Pastor LPN - 09/24/2024 8:41 AM EST Spoke with pt and information listed below given. Pt verbalizes understanding. Og Pastor LPN * Telephone Encounter - Og Pastor LPN - 09/24/2024 8:14 AM EST Left a message for pt to call the office and ask to speak to a nurse. Og Pastor LPN * Telephone Encounter - Og Pastor LPN - 09/24/2024 8:14 AM EST ----- Message from Ellen Rene sent at 09/24/2024 7:47 AM EST ----- Labs look good. Hemoglobin A1c indicates a possible low blood sugar, no diabetes. Thyroid is normal. Blood counts and kidney function are normal. While your LDL, bad cholesterol, is high your good cholesterol and triglycerides are so good; we can except that LDL. No changes are needed. Everything looks good. documented in this encounterMer[facility]11-26-2024 Telephone encounter Note * Telephone Encounter - Og Pastor LPN - 09/24/2024 8:14 AM EST Left a message for pt to call the office and ask to speak to a nurse. Og Pastor LPN [facility]11-26-[facility]24 Telephone encounter Note* Telephone Encounter - Og Pastor LPN - 09/24/2024 8:14 AM EST ----- Message from Ellen Rene sent at 09/24/2024 7:47 AM EST ----- Labs look good. Hemoglobin A1c indicates a possible low blood sugar, no diabetes. Thyroid is normal. Blood counts and kidney function are normal. While your LDL, bad cholesterol, is high your good cholesterol and triglycerides are so good; we can except that LDL. No changes are needed. Everything looks good. [facility]11-19-[facility] Surgery Surgical operation note* Operative Report - Isaac Cannon MD - 09/17/2024 1:09 PM ESTSummary: B Subacromial bursa inj PATIENT: Sheila Crowe SURGEON: Primary: Isaac Cannon MD : 1980 DATE OF SURGERY: September 17, 2024 PRE-OP Diagnosis: Subacromial bursitis of both shoulders [M75.51, M75.52] POST-OP Diagnosis: Same Procedure: Procedure(s): ARTHROCENTESIS,ASPIRATION AND/OR INJECTION,MAJOR JOINT OR BURSA W/O US GUIDANCE (Subacromial bursas) Anesthesia Type: Local The following procedure was performed in the office today: Shoulder (subacromial bursa injection with ultrasound) ([id number], U/S) Laterality: Bilateral Approach: anterior Injectate: [1 mL methylprednisolone (80 mg/mL) in 5 mL of 1% lidocaine-total split between 2 bursas Notes: Procedure: Patient was placed in sitting position. The patient was prepped in a sterile fashion in the sitting position after informed consent was signed and all the patient's questions were answeredincluding the risks, benefits, alternative treatment options and prognosis. A time out was performed as per protocol. The subacromial bursa was identified with ultrasound. Using a 1.5 inch 25 gauge needle, the needle was advanced to the area between the deltoid and supraspinatus muscle over the humeral head. After aspiration was negative for heme, the injectate noted above was then injected without difficulty and the needle was removed. The procedure was repeated on the opposite side. The patient tolerated the procedure well and was discharged after an appropriate period of observation. If there are any complications, the patient was instructed to call us. The patient is to follow-up with the ordering physician as planned. Isaac Cannon MD [facility] Work Phone: [phone]) 236-282111-19-2024 Surgical operation note* Operative Report - Isaac Cannon MD - 09/17/2024 1:09 PM ESTSummary: B Subacromial bursa inj PATIENT: Sheila Crowe SURGEON: Primary: Isaac Cannon MD : 1980 DATE OF SURGERY: September 17, 2024 PRE-OP Diagnosis: Subacromial bursitis of both shoulders [M75.51, M75.52] POST-OP Diagnosis: Same Procedure: Procedure(s): ARTHROCENTESIS,ASPIRATION AND/OR INJECTION,MAJOR JOINT OR BURSA W/O US GUIDANCE (Subacromial bursas) Anesthesia Type: Local The following procedure was performed in the office today: Shoulder (subacromial bursa injection with ultrasound) ([id number], U/S) Laterality: Bilateral Approach: anterior Injectate: [1 mL methylprednisolone (80 mg/mL) in 5 mL of 1% lidocaine-total split between 2 bursas Notes: Procedure: Patient was placed in sitting position. The patient was prepped in a sterile fashion in the sitting position after informed consent was signed and all the patient's questions were answeredincluding the risks, benefits, alternative treatment options and prognosis. A time out was performed as per protocol. The subacromial bursa was identified with ultrasound. Using a 1.5 inch 25 gauge needle, the needle was advanced to the area between the deltoid and supraspinatus muscle over the humeral head. After aspiration was negative for heme, the injectate noted above was then injected without difficulty and the needle was removed. The procedure was repeated on the opposite side. The patient tolerated the procedure well and was discharged after an appropriate period of observation. If there are any complications, the patient was instructed to call us. The patient is to follow-up with the ordering physician as planned. Isaac Cannon MD documented in this encounterMer[facility]11-14-2024 Instructions* Patient Instructions* Ellen Rene APRN.CNP - 09/12/2024 10:36 AM EST 1) Check labs 2) Follow up in 6 months documented in this encounterMer[facility]11-14-2024 NoteHNO ID: [id number] Author: ELLEN RENE APRN.CNP Service: ? Author Type: Clinical Nurse Specialist Type: Progress Notes Filed: 09/12/2024 10:36 Note Text: This is a 43 year old female who presents today with: Patient presents with: Back Pain: 3 month f/u HISTORY OF PRESENT ILLNESS: Sheila Crowe is a 43 year old female. Patient presents with: Back Pain: 3 month f/u Back is feeling better. Only hurts if she sits too long or in a car too long. Doing stretches and exercises. No pain down legs except fibromyalgia pain. On topiramate 500 mg daily and Lyrica 150 mg 3 x day. Sleeping really well. Walking loosens up her back- no longer daily walking a mile but doing harder exercises. Sitting for hours still aches some Lying is bad, but now from shoulders 0/10.in axial pain and out into hips- outer hips and anterior unless sitting too long thighs achy from exercises Tried using TENs unit, didn't help PAST MEDICAL HISTORY: PAST MEDICAL HISTORY Diagnosis Date Allergic rhinitis due to other allergen Bipolar I disorder, most recent episode (or current) unspecified hosp 04 mutile suicide attempts/Dr. Jenkins Hypercalcemia Migraine without aura Morbid obesity (HCC) stated BMI HT: 68 WT: 375 Myalgia and myositis, unspecified Other specified cardiac dysrhythmias(427.89) PMH - PAST MEDICAL HISTORY OF MONO Unspecified essential hypertension PAST SURGICAL HISTORY Procedure Laterality Date ADENOIDECTOMY PRIMARY Adenoidectomy COLONOSCOPY W/BIOPSY SINGLE/MULTIPLE 12/23/2019 EXTRACTION, ERUPTED TOOTH OR EXPOSED ROOT (ELEVATION AND/OR FORCEPS REMOVAL) 1995 [place] teeth TONSILLECTOMY PRIMARY/SECONDARY Tonsillectomy ALLERGIES Clindamycin, Levaquin [Levofloxacin], Penicillins, Sulfa (Sulfonamide Antibiotics), and Zithromax [Azithromycin] MEDICATIONS Current Outpatient Medications Medication Sig pregabalin (LYRICA) 150 mg capsule Take 1 capsule by mouth three times a day for 120 days. meloxicam (MOBIC) 15 mg tablet Take 0.5-1 tablets by mouth once daily as needed for pain. buprenorphine (BUTRANS) 10 mcg/hour Apply 1 Patch as directed one time a week for 28 days. As directed. Do not start before April 11, 2024. diclofenac sodium-menthol (DITHOL) 1.5-10 % combo pack Apply to affected area. ketoconazole (NIZORAL) 2 % shampoo [id number] carb-vit K (WOMEN'S MULTIVITAMIN) 18 mg-400 mcg- 500 mg-50 mcg tab Women's Multivitamin 18 mg-400 mcg- 500 mg-50 mcg tablet spironolactone (ALDACTONE) 25 mg tablet Take 25 mg by mouth three times a day. ziprasidone (GEODON) 20 mg capsule Take 20 mg by mouth three times daily. ziprasidone (GEODON) 60 mg capsule Take 120 mg by mouth once daily. topiramate (TOPAMAX) 100 mg tablet Take 100 mg by mouth once daily. topiramate (TOPAMAX) 200 mg tablet Take 400 mg by mouth once daily. valbenazine (INGREZZA) 80 mg capsule Take 80 mg by mouth once daily. benztropine (COGENTIN) 2 mg tablet Take 2 mg by mouth four times daily. lamoTRIgine (LAMICTAL) 200 mg tablet Take 400 mg by mouth once daily. No current facility-administered medications for this visit. FAMILY HISTORY Problem Relation Age of Onset Rheumatologic disease Mother other (stiff persons disease) Father other (autoimmune disorder) Father Diabetes Brother Type 1, age 40 Diabetes Maternal Grandmother Diabetes Paternal Grandmother Heart Paternal Grandmother Social History Tobacco Use Smoking status: Former Current packs/day: 0.00 Types: Cigarettes Quit date: 06/16/2008 Years since quittin.2 Smokeless tobacco: Never Vaping Use Vaping status: Never Used Substance Use Topics Alcohol use: No Drug use: No REVIEW OF SYSTEMS GENERAL: Some weight loss, no malaise, no fevers/chills HEENT: Negative for frequent or significant headaches, No changes in hearing or vision. NECK: Negative for lumps, goiter, pain and significant neck swelling RESPIRATORY: Negative for cough, hemoptysis, wheezing, dyspnea or shortness of breath CARDIOVASCULAR: Negative for chest pain, leg swelling, orthopnea, or palpitations GI: No nausea, vomiting, + diarrhea/ usually constipation. No hematochezia/melena. No heartburn or reflux symptoms. : No history of dysuria, frequency or incontinence MUSCULOSKELETAL: Multiple joint pains and muscle aches SKIN: Negative for lesions, rash, and itching NEURO: No history of headaches, syncope, paralysis, seizures or tremors MOOD: Negative for depression, anxiety, or suicidal ideation. EXAM: BP 134/78 Pulse 76 Resp 16 Wt 82.7 kg (182 lb 5.1 oz) LMP 02/22/2024 SpO2 (!) 85% BMI 27.72 kg/m? PHYSICAL EXAM: Physical Exam Vitals reviewed. Constitutional: Appearance: Normal appearance. HENT: Head: Normocephalic. Eyes: General: Right eye: Right eye discharge: CBC. Cardiovascular: Rate and Rhythm: Normal rate and regular rhythm. Pulses: Normal pulses. Heart sounds: Normal heart sound (more content not included)...[facility]11-14-2024 History of Present illness Narrative* Ellen Rene APRN.[facility] - 09/12/2024 10:16 AM EST This is a 43 year old female who presents today with: Patient presents with: Back Pain: 3 month f/u HISTORY OF PRESENT ILLNESS: Sheila Crowe is a 43 year old female. Patient presents with: Back Pain: 3 month f/u Back is feeling better. Only hurts if she sits too long or in a car too long. Doing stretches and exercises. No pain down legs except fibromyalgia pain. On topiramate 500 mg daily and Lyrica 150 mg 3 x day. Sleeping really well. Walking loosens up her back- no longer daily walking a mile but doing harder exercises. Sitting for hours still aches some Lying is bad, but now from shoulders 0/10.in axial pain and out into hips- outer hips and anterior unless sitting too long thighs achy from exercises Tried using TENs unit, didn't help PAST MEDICAL HISTORY: PAST MEDICAL HISTORY Diagnosis Date Allergic rhinitis due to other allergen Bipolar I disorder, most recent episode (or current) unspecified hosp 04 mutile suicide attempts/Dr. Jenkins Hypercalcemia Migraine without aura Morbid obesity (HCC) stated BMI HT: 68 WT: 375 Myalgia and myositis, unspecified Other specified cardiac dysrhythmias(427.89) PMH - PAST MEDICAL HISTORY OF MONO Unspecified essential hypertension PAST SURGICAL HISTORY Procedure Laterality Date ADENOIDECTOMY PRIMARY <AGE 11 1994 Adenoidectomy COLONOSCOPY W/BIOPSY SINGLE/MULTIPLE 12/23/2019 EXTRACTION, ERUPTED TOOTH OR EXPOSED ROOT (ELEVATION AND/OR FORCEPS REMOVAL) 1995 [place] teeth TONSILLECTOMY PRIMARY/SECONDARY <AGE 11 1994 Tonsillectomy ALLERGIES Clindamycin, Levaquin [Levofloxacin], Penicillins, Sulfa (Sulfonamide Antibiotics), and Zithromax [Azithromycin] MEDICATIONS Current Outpatient Medications Medication Sig pregabalin (LYRICA) 150 mg capsule Take 1 capsule by mouth three times a day for 120 days. meloxicam (MOBIC) 15 mg tablet Take 0.5-1 tablets by mouth once daily as needed for pain. buprenorphine (BUTRANS) 10 mcg/hour Apply 1 Patch as directed one time a week for 28 days. As directed. Do not start before April 11, 2024. diclofenac sodium-menthol (DITHOL) 1.5-10 % combo pack Apply to affected area. ketoconazole (NIZORAL) 2 % shampoo [id number] carb-vit K (WOMEN'S MULTIVITAMIN) 18 mg-400 mcg- 500 mg-50 mcg tab Women's Multivitamin 18 mg-400 mcg- 500 mg-50 mcg tablet spironolactone (ALDACTONE) 25 mg tablet Take 25 mg by mouth three times a day. ziprasidone (GEODON) 20 mg capsule Take 20 mg by mouth three times daily. ziprasidone (GEODON) 60 mg capsule Take 120 mg by mouth once daily. topiramate (TOPAMAX) 100 mg tablet Take 100 mg by mouth once daily. topiramate (TOPAMAX) 200 mg tablet Take 400 mg by mouth once daily. valbenazine (INGREZZA) 80 mg capsule Take 80 mg by mouth once daily. benztropine (COGENTIN) 2 mg tablet Take 2 mg by mouth four times daily. lamoTRIgine (LAMICTAL) 200 mg tablet Take 400 mg by mouth once daily. No current facility-administered medications for this visit. FAMILY HISTORY Problem Relation Age of Onset Rheumatologic disease Mother other (stiff persons disease) Father other (autoimmune disorder) Father Diabetes Brother Type 1, age 40 Diabetes Maternal Grandmother Diabetes Paternal Grandmother Heart Paternal Grandmother Social History Tobacco Use Smoking status: Former Current packs/day: 0.00 Types: Cigarettes Quit date: 06/16/2008 Years since quittin.2 Smokeless tobacco: Never Vaping Use Vaping status: Never Used Substance Use Topics Alcohol use: No Drug use: No REVIEW OF SYSTEMS GENERAL: Some weight loss, no malaise, no fevers/chills HEENT: Negative for frequent or significant headaches, No changes in hearing or vision. NECK: Negative for lumps, goiter, pain and significant neck swelling RESPIRATORY: Negative for cough, hemoptysis, wheezing, dyspnea or shortness of breath CARDIOVASCULAR: Negative for chest pain, leg swelling, orthopnea, or palpitations GI: No nausea, vomiting, + diarrhea/ usually constipation. No hematochezia/melena. No heartburn or reflux symptoms. : No history of dysuria, frequency or incontinence MUSCULOSKELETAL: Multiple joint pains and muscle aches SKIN: Negative for lesions, rash, and itching NEURO: No history of headaches, syncope, paralysis, seizures or tremors MOOD: Negative for depression, anxiety, or suicidal ideation. EXAM: BP 134/78 Pulse 76 Resp 16 Wt 82.7 kg (182 lb 5.1 oz) LMP 02/22/2024 SpO2 (!) 85% BMI 27.72 kg/m PHYSICAL EXAM: Physical Exam Vitals reviewed. Constitutional: Appearance: Normal appearance. HENT: Head: Normocephalic. Eyes: General: Right eye: Right eye discharge: CBC. Cardiovascular: Rate and Rhythm: Normal rate and regular rhythm. Pulses: Normal pulses. Heart sounds: Normal heart sounds. Pulmonary: Effort: Pulmonary effort is normal. Breath sounds: Normal breath sounds. Abdominal: General: Bowel sounds are normal. There is no distension. Palpations: Abdomen is soft. Tenderness: There is no abdominal tenderness. Musculoskeletal: General: Normal range of motion. Cervical back: Normal range of motion and neck supple. Comments: Ongoing fibromyalgia Shoulders hurt and getting injections hannah. Skin: General: Skin is warm and dry. Neurological: Mental Status: She is alert and oriented to person, place, and time. Psychiatric: Mood and Affect: Mood normal. Behavior: Behavior normal. LABS: screening labs ASSESSMENT/PLAN: 1. Chronic pain syndrome - ICD9: 338.4, ICD10: G89.4 (primary diagnosis) Improved back pain but hannah. Shoulder pain & fibromyalgia - COMPREHENSIVE METABOLIC PANEL - COMPLETE BLOOD COUNT AND DIFFERENTIAL - LIPID PANEL, NONFASTING - MAGNESIUM - VITAMIN B12 - THYROID STIMULATING HORMONE - HEMOGLOBIN A1C 2. Screening for depression - ICD9: V79.0, ICD10: Z13.31 Stable - DEPRESSION SCREENING 3. History of diabetes mellitus - ICD9: V12.29, ICD10: Z86.39 Check labs - COMPREHENSIVE METABOLIC PANEL - COMPLETE BLOOD COUNT AND DIFFERENTIAL - LIPID PANEL, NONFASTING - MAGNESIUM - VITAMIN B12 - THYROID STIMULATING HORMONE - HEMOGLOBIN A1C - ALBUMIN/CREATININE RATIO, URINE 4. Lumbar strain, subsequent encounter - ICD9: V58.89, 847.2, ICD10: S39.012D Improved Continue current [place] 5. Fibromyalgia - ICD9: 729.1, ICD10: M79.7 - Sleeping better, exercise, controlling stress 6. Essential Hypertension, Benign - ICD9: 401.1, ICD10: I10 - Controlled - Recommend home blood pressure monitoring, to bring results to next visit - Encouraged sodium restriction, DASH or Mediterranean diet - Recommend regular aerobic exercise - COMPREHENSIVE METABOLIC PANEL 7. Sleep apnea, unspecified type - ICD9: 780.57, ICD10: G47.30 No longer needs CPAP 8. Chronic insomnia - ICD9: 780.52, ICD10: F51.04 Lately sleeping well 9. Encounter for lipid screening for cardiovascular disease - ICD9: V77.91, V81.2, ICD10: Z13.220, Z13.6 Check labs - LIPID PANEL, NONFASTING Discussed treatment plan and patient voices understanding. Patient's questions answered appropriately. Medications and potential side effects were discussed and patient voices understanding. Return to the office as scheduled or as needed for worsening/no improvement. Ellen Rene APRN.BASHIR documented in this encounterMer[facility]10-30-[facility]24 Instructions* Patient Instructions* Freeman Sarabia PA-C - 08/28/2024 1:25 PM EDT The OARRS report has been reviewed and is consistent with the patients medical history and medication intake. Continue with the meloxicam and diclofenac gel. Increase the pregabalin to 100 mg 4 times a day with your current script and then start pregabalin 150 mg three times a day on your next refill. We will not go any higher on this dosing due to the other medications you are currently using. Continue with the PT exercises at home on your own Continue using the TENS unit. Continue doing your yoga and strengthening exercises, but make sure you give your body a chance to rest. FU in the office in 3 months Continue to FU with the net developer architect for the neuropathy. FU with your psychiatrist regarding the sleep/miguel issues Continue with the kinesiology tape/roller ball on the feet. You can use CBD oil, just avoid THC, and delta 8 and delta 9. Schedule bilateral subacromial bursa injections x 1 visit. Supervising Physiciain - Dr. Isaac Cannon MD Procedure to be done: Joint Injection - bilateral subacromial bursa injections x 1 visit A van driver helper is required: No Oral Sedation is requested : No If you are receiving oral sedation, you may eat a light meal. Clothing to wear: Back injections - elastic waist/jogging pants Neck injections - wide neck or button down shirt; please do not wear neck jewelry Plan to take it easy the rest of the day following your procedure. You may resume normal [id number] hours following your procedure or as otherwise instructed. Special Instructions - NONE documented in this encounterMercy Health [facility]10-30-2024 NoteHNO ID: [id number] Author: FREEMAN SARABIA PA-C Service: ? Author Type: Physician Director Of Restaurants Type: Progress Notes Filed: 08/28/2024 13:37 Note Text: This note was created using [email or web address] Subjective Sheila Crowe is a 43 year old female. The patient primarily being seen for back, bilateral knee and shoulder pain, and generalized whole body pain Patient was last seen on: 05/23/24 At that time, the treatment plan was: see notes Current Meds: pregabalin - am, meloxicam - am Efficacy: helps Side effects: denies TENS unit: yes How often used: daily Benefit: helps Physical Therapy: now - [facility] Last UDS: Last injection: 01/04/24 - Bilateral subacromial bursa injections O[facility] reviewed At the present time, the patient reports some benefit with her present analgesic therapy. She denies any adverse effects. She would like to try increasing the pregabalin dosing a little higher. Since her previous visit, she denies any hospitalizations or ER visits. She states that her shoulder pain has been getting worse and she would like to get the subacromial bursa injections repeated. They were previously done in December and gave her 70% relief initially. She got at least 50% relief for over 3 months. The shoulder pain is interfering with her ability to sit at her sewing machine. 08/07/2024 08/28/2024 INTAKE PAIN ASSESSMENT Are you having pain associated with your visit today? Yes, Provider notified Pain Scales Verbal (Numeric Rating or Visual Analog Scale) Pain Level 2 6 Pain Location Generalized Description Aching;Sharp;Pressure Frequency Continuous Intervention/Comfort measure Medication;Relaxation;Exercise;Cold;Other: See comment Comments relief with shoulder injections in past HPI PAST MEDICAL HISTORY Diagnosis Date Allergic rhinitis due to other allergen Bipolar I disorder, most recent episode (or current) unspecified hosp 04 mutile suicide attempts/Dr. Jenkins Hypercalcemia Migraine without aura Morbid obesity (HCC) stated BMI HT: 68 WT: 375 Myalgia and myositis, unspecified Other specified cardiac dysrhythmias(427.89) PMH - PAST MEDICAL HISTORY OF MONO Unspecified essential hypertension PAST SURGICAL HISTORY Procedure Laterality Date ADENOIDECTOMY PRIMARY Adenoidectomy COLONOSCOPY W/BIOPSY SINGLE/MULTIPLE 12/23/2019 EXTRACTION, ERUPTED TOOTH OR EXPOSED ROOT (ELEVATION AND/OR FORCEPS REMOVAL) 1995 [place] teeth TONSILLECTOMY PRIMARY/SECONDARY Tonsillectomy Social History Tobacco Use Smoking status: Former Current packs/day: 0.00 Types: Cigarettes Quit date: 06/16/2008 Years since quittin.2 Smokeless tobacco: Never Vaping Use Vaping status: Never Used Substance Use Topics Alcohol use: No Drug use: No Review of Systems Constitutional: Negative for fever and unexpected weight change. Musculoskeletal: +back pain, joint pain, muscle cramps/weakness, stiffness, arthritis, and leg pain with exertion. Objective BP 134/88 (BP Site: Left Arm, BP Position: Sitting, BP Cuff Size: Regular Adult) Pulse 73 Resp 18 Wt 84.4 kg (186 lb) LMP 02/22/2024 SpO2 99% BMI 28.28 kg/m? Physical Exam Vitals and nursing note reviewed. Constitutional: Appearance: Normal appearance. She is well-developed, well-groomed and overweight. HENT: Head: Normocephalic and atraumatic. Right Ear: Hearing normal. Left Ear: Hearing normal. Eyes: Conjunctiva/sclera: Conjunctivae normal. Comments: Wearing glasses Musculoskeletal: Comments: The patient walks with a normal gait. There is tenderness to palpation in the cervical and lumbar region with spasms noted in the trapezius, paraspinal, and latissimus dorsi muscles. She has tenderness noted over the right SI joint Strength is 5/5 throughout. Sensation is intact to light touch throughout. SLR is negative. She has tenderness to palpation in the knees bilaterally. There is tenderness noted over the bilateral subacromial bursas. Neurological: Mental Status: She is alert and oriented to person, place, and time. Psychiatric: Attention and Perception: Attention and perception normal. Mood and Affect: Mood and affect normal. Speech: Speech normal. Behavior: Behavior normal. Behavior is cooperative. Thought Content: Thought content normal. Judgment: Judgment normal. Assessment and Plan ASSESSMENT/PLAN: 1. Subacromial bursitis of both shoulders - ICD9: 726.19, ICD10: M75.51, M75.52 (primary diagnosis) - SURGICAL REQUEST - ELECTIVE (05/2020) 2. Fibromyalgia - ICD9: 729.1, ICD10: M79.7 - PREGABALIN 150 MG CAPSULE 3. Sacroiliitis (HCC) - ICD9: 720.2, ICD10: M46.1 4. Primary osteoarthritis of both knees - ICD9: 715.16, ICD10: M17.0 5. Neuropathy involving both lower extremities - ICD9: 356.9, ICD10: G57.93 6. Generalized anxiety disorder - ICD9: 300.02, ICD10: F41.1 PLAN: The OARRS report has been reviewed and is consistent with the patients medical history (more content not included)...[facility]10-30-2024 History of Present illness Narrative* Freeman Sarabia PA-C - 08/28/2024 1:17 PM EDT This note was created using Kosmix. Subjective Sheila Crowe is a 43 year old female. The patient primarily being seen for back, bilateral knee and shoulder pain, and generalized whole body pain Patient was last seen on: 05/23/24 At that time, the treatment plan was: see notes Current Meds: pregabalin - am, meloxicam - am Efficacy: helps Side effects: denies TENS unit: yes How often used: daily Benefit: helps Physical Therapy: now - [facility] Last UDS: Last injection: 01/04/24 - Bilateral subacromial bursa injections OARRS reviewed At the present time, the patient reports some benefit with her present analgesic therapy. She denies any adverse effects. She would like to try increasing the pregabalin dosing a little higher. Sinceher previous visit, she denies any hospitalizations or ER visits. She states that her shoulder painhas been getting worse and she would like to get the subacromial bursa injections repeated. They were previously done in December and gave her 70% relief initially. She got at least 50% relief for over 3 months. The shoulder pain is interfering with her ability to sit at her sewing machine. 08/07/2024 08/28/2024 INTAKE PAIN ASSESSMENT Are you having pain associated with your visit today? Yes, Provider notified Pain Scales Verbal (Numeric Rating or Visual Analog Scale) Pain Level 2 6 Pain Location Generalized Description Aching;Sharp;Pressure Frequency Continuous Intervention/Comfort measure Medication;Relaxation;Exercise;Cold;Other: See comment Comments relief with shoulder injections in past HPI PAST MEDICAL HISTORY Diagnosis Date Allergic rhinitis due to other allergen Bipolar I disorder, most recent episode (or current) unspecified hosp 04 mutile suicide attempts/Dr. Jenkins Hypercalcemia Migraine without aura Morbid obesity (HCC) stated BMI HT: 68 WT: 375 Myalgia and myositis, unspecified Other specified cardiac dysrhythmias(427.89) PMH - PAST MEDICAL HISTORY OF MONO Unspecified essential hypertension PAST SURGICAL HISTORY Procedure Laterality Date ADENOIDECTOMY PRIMARY <AGE 12 1994 Adenoidectomy COLONOSCOPY W/BIOPSY SINGLE/MULTIPLE 12/23/2019 EXTRACTION, ERUPTED TOOTH OR EXPOSED ROOT (ELEVATION AND/OR FORCEPS REMOVAL) 1995 [place] teeth TONSILLECTOMY PRIMARY/SECONDARY <AGE 11 1994 Tonsillectomy Social History Tobacco Use Smoking status: Former Current packs/day: 0.00 Types: Cigarettes Quit date: 06/16/2008 Years since quittin.2 Smokeless tobacco: Never Vaping Use Vaping status: Never Used Substance Use Topics Alcohol use: No Drug use: No Review of Systems Constitutional: Negative for fever and unexpected weight change. Musculoskeletal: +back pain, joint pain, muscle cramps/weakness, stiffness, arthritis, and leg pain with exertion. Objective BP 134/88 (BP Site: Left Arm, BP Position: Sitting, BP Cuff Size: Regular Adult) Pulse 73 Resp 18 Wt 84.4 kg (186 lb) LMP 02/22/2024 SpO2 99% BMI 28.28 kg/m Physical Exam Vitals and nursing note reviewed. Constitutional: Appearance: Normal appearance. She is well-developed, well-groomed and overweight. HENT: Head: Normocephalic and atraumatic. Right Ear: Hearing normal. Left Ear: Hearing normal. Eyes: Conjunctiva/sclera: Conjunctivae normal. Comments: Wearing glasses Musculoskeletal: Comments: The patient walks with a normal gait. There is tenderness to palpation in the cervical and lumbar region with spasms noted in the trapezius, paraspinal, and latissimus dorsi muscles. She has tenderness noted over the right SI joint Strength is 5/5 throughout. Sensation is intact to light touch throughout. SLR is negative. She has tenderness to palpation in the knees bilaterally. There is tenderness noted over the bilateral subacromial bursas. Neurological: Mental Status: She is alert and oriented to person, place, and time. Psychiatric: Attention and Perception: Attention and perception normal. Mood and Affect: Mood and affect normal. Speech: Speech normal. Behavior: Behavior normal. Behavior is cooperative. Thought Content: Thought content normal. Judgment: Judgment normal. Assessment and Plan ASSESSMENT/PLAN: 1. Subacromial bursitis of both shoulders - ICD9: 726.19, ICD10: M75.51, M75.52 (primary diagnosis) - SURGICAL REQUEST - ELECTIVE (05/2020) 2. Fibromyalgia - ICD9: 729.1, ICD10: M79.7 - PREGABALIN 150 MG CAPSULE 3. Sacroiliitis (HCC) - ICD9: 720.2, ICD10: M46.1 4. Primary osteoarthritis of both knees - ICD9: 715.16, ICD10: M17.0 5. Neuropathy involving both lower extremities - ICD9: 356.9, ICD10: G57.93 6. Generalized anxiety disorder - ICD9: 300.02, ICD10: F41.1 PLAN: The OARRS report has been reviewed and is consistent with the patients medical history and medication intake. Continue with the meloxicam and diclofenac gel. Increase the pregabalin to 100 mg 4 times a day with your current script and then start pregabalin 150 mg three times a day on your next refill. We will not go any higher on this dosing due to the other medications you are currently using. Continue with the PT exercises at home on your own Continue using the TENS unit. Continue doing your yoga and strengthening exercises, but make sure you give your body a chance to rest. FU in the office in 3 months Continue to FU with the net developer architect for the neuropathy. FU with your psychiatrist regarding the sleep/miguel issues Continue with the kinesiology tape/roller ball on the feet. You can use CBD oil, just avoid THC, and delta 8 and delta 9. Schedule bilateral subacromial bursa injections x 1 visit. Freeman Sarabia PA-C [facility]* Carmel Stark RN - 08/28/2024 1:05 PM EDT Lyrica am/ Meloxicam am Meds help pain Denies side effects TENS, daily-helpful 01/04/24-b/l subacromial bursa [facility] Nurse Note* Carmel Stark RN - 08/28/2024 1:05 PM EDT Lyrica am/ Meloxicam am Meds help pain Denies side effects TENS, daily-helpful 01/04/24-b/l subacromial bursa documented in this encounterMer[facility]10-[facility]24 NoteHNO ID: [id number] Author: SALVADOR HART, JESUS Service: ? Author Type: Physical Therapist Type: Progress Notes Filed: 08/07/2024 12:09 Note Text: Episode Visit Count: 7 Therapist That Will Accept/Oversee The Plan Of Care: Salvador Hart PT. Start of Care Date: 06/03/24 Onset Date: 05/04/24 Plan of Care Certification Date: 07/10/24 Next Certification Due Date: 08/15/24 Patient Identified by Name and Date of : Yes REHABILITATION AND SPORTS THERAPY PHYSICAL THERAPY DISCONTINUANCE OF CARE PLAN OF CARE UPDATE: Assessment: Sheila Crowe is discontinued from Physical Therapy services due to goal achievement and maximal benefit. Patient was seen for 7 visits from Start of Care Date: 06/03/24 to 08/07/2024 and treatment included: Therapeutic exercise, Manual therapy, and Self-alf management. Updated 07/04/24 AND 08/07/24. Goals for Episode of Care: created on 06/03/24 through 08/18/24 [place] in home exercise program. (Goal Met) Patient will decrease pain rating by 2 points to meet minimal clinical important difference for numeric pain rating scale. (Goal Met) Restore pain-free lumbar ROM to WNL to allow for improved ADLs/IADLs. (Progressing) Patient will report she will be able to tolerate prolonged stand / sit without pain/symptoms in 8 weeks or less. (Goal Met) Sleep through night without pain/symptoms. (Partially Met, improved. Feels like she does have to reposition sometimes). Patient will increase back extensor and core strength to 5/5 on objective testing. (Goal Met) SUBJECTIVE: I feel tight, it is not really painful, but it feels tight during stretching. Reports more tightness than she is use to. Does better with movement. Feels confident with continuing HEP on her own indep. Back to doing yoga, core workouts and light cardio. Pain: Pain Pain Level: 2 Pain Location: Low Back/Lumbar Spine - Left, Low Back/Lumbar Spine - Right PROMIS Scales 08/07/2024 07/04/2024 06/25/2024 Higher is Better Phys Func - Score 47 (within normal limits) 40 (mild dysfunction) Phys Func - Percentile 38 16 Self-Eff Symptom - Score 41 (Average) 44 (Average) Self-Eff Symptom - Percentile 18 27 T-scores: mean of general population = 50. 5 points is clinically meaningfully difference Percentiles provide an indication of how the patient's score ranks in relation to the general population. Higher percentile rankings indicate better function/quality of life. 50th percentile is the average of the general population and indicates half of respondents had a worse score. OBJECTIVE MEASURES WITH LEVEL OF FUNCTION: Posture / Alignment Posture: Rounded shoulders, Comments Posture comment: Slight Lumbar Lordosis. Sitting Posture: Comments Sitting Posture Comments: Well Improved, Upright. Lumbar Spine AROM Lumbar Flexion: Normal (Can touch ground; close to flat with fingers.) Lumbar Extension: Normal (I can feel it, not near as bad..) Lumbar R Side-Bend: Normal Lumbar L Side-Bend: Normal Lumbar R Rotation: Normal Lumbar L Rotation: Normal LE Strength Trunk Strength: 5/5 Special Tests - Hip and Spine SLR Test: Right Negative, Left Negative Special Test Comments: Supine Leg Lowering from 90/90 - Negative. Gait Gait Observation: Non-Remarkable. TREATMENT: Therapeutic Exercise: 1: *Re-assessment per above, discussion on patient's progress. Discussed soft tissue healing timelines and how following traumatic accidents such as hers it is hard to predict accurate rates of healing. Discussed her progression in function and pain reduction and how with time and continued adherance to plan this should improve to prior baseline. 2: *Discussed core exercises and yoga poses based off patients questions. 3: *Patient denies needing new exercises today. Will reach out to PT if in the future she would like new things to be challenged by. 4: *Discussed stress vs. strain curve and how to apply to her exercises/activity. Skilled Intervention: Patient was educated in proper exercise technique and purpose for exercises. Patient education as noted. Activity progression based on professional judgement. Billing Therapeutic Exercise Treatment Minutes: 30 Skilled Treatment Time Minutes (timed and untimed codes): 30 Total Session Time (minutes): 30 Session Start Time : 1130 Session Stop Time : [address] [facility]10-09-2024 History of Present illness Narrative* Salvador Hart, PT - 08/07/2024 11:33 AM EDT Episode Visit Count: 7 Therapist That Will Accept/Oversee The Plan Of Care: Salvador Hart PT. Start of Care Date: 06/03/24 Onset Date: 05/04/24 Plan of Care Certification Date: 07/10/24 Next Certification Due Date: 08/15/24 Patient Identified by Name and Date of : Yes REHABILITATION AND SPORTS THERAPY PHYSICAL THERAPY DISCONTINUANCE OF CARE PLAN OF CARE UPDATE: Assessment: Sheila Crowe is discontinued from Physical Therapy services due to goal achievement and maximal benefit. Patient was seen for 7 visits from Start of Care Date: 06/03/24 to 08/07/2024 and treatment included: Therapeutic exercise, Manual therapy, and Self-alf management. Updated 07/04/24 & 08/07/24. Goals for Episode of Care: created on 06/03/24 through 08/18/24 [place] in home exercise program. (Goal Met) Patient will decrease pain rating by 2 points to meet minimal clinical important difference for numeric pain rating scale. (Goal Met) Restore pain-free lumbar ROM to WNL to allow for improved ADLs/IADLs. (Progressing) Patient will report she will be able to tolerate prolonged stand / sit without pain/symptoms in 8 weeks or less. (Goal Met) Sleep through night without pain/symptoms. (Partially Met, improved. Feels like she does have to reposition sometimes). Patient will increase back extensor and core strength to 5/5 on objective testing. (Goal Met) SUBJECTIVE: I feel tight, it is not really painful, but it feels tight during stretching. Reportsmore tightness than she is use to. Does better with movement. Feels confident with continuing HEP on her own indep. Back to doing yoga, core workouts and light cardio. Pain: Pain Pain Level: 2 Pain Location: Low Back/Lumbar Spine - Left, Low Back/Lumbar Spine - Right PROMIS Scales 08/07/2024 07/04/2024 06/25/2024 Higher is Better Phys Func - Score 47 (within normal limits) 40 (mild dysfunction) Phys Func - Percentile 38 16 Self-Eff Symptom - Score 41 (Average) 44 (Average) Self-Eff Symptom - Percentile 18 27 T-scores: mean of general population = 50. 5 points is clinically meaningfully difference Percentiles provide an indication of how the patient's score ranks in relation to the general population. Higher percentile rankings indicate better function/quality of life. 50th percentile is the average of the general population and indicates half of respondents had a worse score. OBJECTIVE MEASURES WITH LEVEL OF FUNCTION: Posture / Alignment Posture: Rounded shoulders, Comments Posture comment: Slight Lumbar Lordosis. Sitting Posture: Comments Sitting Posture Comments: Well Improved, Upright. Lumbar Spine AROM Lumbar Flexion: Normal (Can touch ground; close to flat with fingers.) Lumbar Extension: Normal (I can feel it, not near as bad..) Lumbar R Side-Bend: Normal Lumbar L Side-Bend: Normal Lumbar R Rotation: Normal Lumbar L Rotation: Normal LE Strength Trunk Strength: 5/5 Special Tests - Hip and Spine SLR Test: Right Negative, Left Negative Special Test Comments: Supine Leg Lowering from 90/90 - Negative. Gait Gait Observation: Non-Remarkable. TREATMENT: Therapeutic Exercise: 1: *Re-assessment per above, discussion on patient's progress. Discussed soft tissue healing timelines and how following traumatic accidents such as hers it is hard to predict accurate rates of healing. Discussed her progression in function and pain reduction and how with time and continued adherance to plan this should improve to prior baseline. 2: *Discussed core exercises and yoga poses based off patients questions. 3: *Patient denies needing new exercises today. Will reach out to PT if in the future she would like new things to be challenged by. 4: *Discussed stress vs. strain curve and how to apply to her exercises/activity. Skilled Intervention: Patient was educated in proper exercise technique and purpose for exercises. Patient education as noted. Activity progression based on professional judgement. Billing Therapeutic Exercise Treatment Minutes: 30 Skilled Treatment Time Minutes (timed and untimed codes): 30 Total Session Time (minutes): 30 Session Start Time : 1130 Session Stop Time : 1200 Salvador Hart PT documented in this encounterMer[facility] History of Present illness Narrative* Salvador Hart PT - 07/24/2024 11:54 AM EDT Program_ID:[id number] Access Code: [email or web address] URL: [email or web address] Date: 07-24-2024 Prepared By: Salvador Hart Program Notes Exercises - Hooklying Single Knee to Chest Stretch - 1-2 x daily - 5-7 x weekly - 2-3 sets - reps - Supine Double Knee to Chest - 1-2 x daily - 5-7 x weekly - 2-3 sets - reps - Supine Posterior Pelvic Tilt - 2 x daily - 5-7 x weekly - 2 sets - 10 reps - Child's Pose Stretch - 1-2 x daily - 5-7 x weekly - 2-3 sets - reps - Cat Cow - 1-2 x daily - 5-7 x weekly - 2 sets - 10 reps - Anti-Rotation Press With Sidesteps and Anchored Resistance - 2 x daily - 5-7 x weekly - 2 sets - 8-10 reps - Seated Transversus Abdominis Bracing - 2 x daily - 5-7 x weekly - 2 sets - 10 reps * Salvador Hart PT - 07/24/2024 11:14 AM EDT Episode Visit Count: 6 Therapist That Will Accept/Oversee The Plan Of Care: Salvador Hart PT. Start of Care Date: 06/03/24 Onset Date: 05/04/24 Plan of Care Certification Date: 07/10/24 Next Certification Due Date: 08/15/24 Patient Identified by Name and Date of : Yes REHABILITATION AND SPORTS THERAPY PHYSICAL THERAPY TREATMENT NOTE ASSESSMENT: Sheila Crowe tolerated the session with expected muscle soreness. She demonstrated difficulty with PPT in Seated Position on Table and [place] Ball. The patient will continue to benefit from ongoing skilled physical therapy to progress toward set goals. PLAN FOR NEXT VISIT: NS Strength in Seated and Standing. SUBJECTIVE: Last week has been better for patient; sitting has been better, has not sat on her recliner as much (the recliner does not have much support/cushion, and causes her the most pain). Pain: Pain Pain Level: 3 Pain Location: Low Back/Lumbar Spine - Left, Low Back/Lumbar Spine - Right OBJECTIVE MEASURES WITH LEVEL OF FUNCTION: Trouble with form of PPT on [place] Ball. TREATMENT: Therapeutic Exercise: 1: Sci-Fit: 5 Min, Level 2.0. (Direct 1:1, subjective taken.) 3: TA Bracing in Sittinx10, 5-sec holds. 4: PPT on Physioball: 2x10, 2-3sec hold. 5: Seated Pallof Hold Pertubations: 4x30, PinkTB. 6: Seated PPT: 2x10, Unable to continue due to pulling on both side of low back. Skilled Intervention: Patient was educated in proper exercise technique and purpose for exercises. Reviewed and educated patient on additions/changes for home exercise program as above (*). Skilled judgment was used in selection of appropriate interventions. Provided written instruction for home exercise program to facilitate proper performance and compliance. Correct performance of therapeutic exercises was facilitated with verbal and visual cuing. Billing Therapeutic Exercise Treatment Minutes: 39 Skilled Treatment Time Minutes (timed and untimed codes): 39 Total Session Time (minutes): 39 Session Start Time : 1120 Session Stop Time : 1159 Salvador Hart PT documented in this encounterMer[facility]09-25-[facility]24 NoteHNO ID: [id number] Author: SALVADOR HART PT Service: ? Author Type: Physical Therapist Type: Progress Notes Filed: 07/24/2024 12:33 Note Text: Episode Visit Count: 6 Therapist That Will Accept/Oversee The Plan Of Care: Salvador Hart PT. Start of Care Date: 06/03/24 Onset Date: 05/04/24 Plan of Care Certification Date: 07/10/24 Next Certification Due Date: 08/15/24 Patient Identified by Name and Date of : Yes REHABILITATION AND SPORTS THERAPY PHYSICAL THERAPY TREATMENT NOTE ASSESSMENT: Sheila Crowe tolerated the session with expected muscle soreness. She demonstrated difficulty with PPT in Seated Position on Table and [place] Ball. The patient will continue to benefit from ongoing skilled physical therapy to progress toward set goals. PLAN FOR NEXT VISIT: NS Strength in Seated and Standing. SUBJECTIVE: Last week has been better for patient; sitting has been better, has not sat on her recliner as much (the recliner does not have much support/cushion, and causes her the most pain). Pain: Pain Pain Level: 3 Pain Location: Low Back/Lumbar Spine - Left, Low Back/Lumbar Spine - Right OBJECTIVE MEASURES WITH LEVEL OF FUNCTION: Trouble with form of PPT on [place] Ball. TREATMENT: Therapeutic Exercise: 1: Sci-Fit: 5 Min, Level 2.0. (Direct 1:1, subjective taken.) 3: TA Bracing in Sittinx10, 5-sec holds. 4: PPT on Physioball: 2x10, 2-3sec hold. 5: Seated Pallof Hold Pertubations: 4x30, PinkTB. 6: Seated PPT: 2x10, Unable to continue due to pulling on both side of low back. Skilled Intervention: Patient was educated in proper exercise technique and purpose for exercises. Reviewed and educated patient on additions/changes for home exercise program as above (*). Skilled judgment was used in selection of appropriate interventions. Provided written instruction for home exercise program to facilitate proper performance and compliance. Correct performance of therapeutic exercises was facilitated with verbal and visual cuing. Billing Therapeutic Exercise Treatment Minutes: 39 Skilled Treatment Time Minutes (timed and untimed codes): 39 Total Session Time (minutes): 39 Session Start Time : 1120 Session Stop Time : 1159 Salvador Hart, [facility]09-17-2024 Telephone encounter Note * Telephone Encounter - Freeman Sarabia PA-C - 07/16/2024 10:17 AM EDT The following approved medication requests have been transmitted electronically. Requested Prescriptions Pending Prescriptions Disp Refills pregabalin (LYRICA) 100 mg capsule 90 capsule 3 Sig: Take 1 capsule by mouth three times a day for 120 days. Freeman Sarabia PA-C [facility]09-17-2024 Miscellaneous Notes* Telephone Encounter - Freeman Sarabia PA-C - 07/16/2024 10:17 AM EDT The following approved medication requests have been transmitted electronically. Requested Prescriptions Pending Prescriptions Disp Refills pregabalin (LYRICA) 100 mg capsule 90 capsule 3 Sig: Take 1 capsule by mouth three times a day for 120 days. Freeman Sarabia PA-C * Telephone Encounter - Hilda Carvalho RN - 07/16/2024 10:12 AM EDT Since [facility] closed pt no longer has Rfs at pharmacy. New RX requested. Hilda Carvalho RN July 16, 2024 10:12 AM documented [facility] Telephone encounter Note * Telephone Encounter - Hilad Carvalho RN - 07/16/2024 10:12 AM EDT Since [facility] closed pt no longer has Rfs at pharmacy. New RX requested. Hilda Carvalho RN July 16, 2024 10:12 AM [facility]09-11-2024 NoteHNO ID: [id number] Author: SALVADOR HART, PT Service: ? Author Type: Physical Therapist Type: Progress Notes Filed: 07/10/2024 15:31 Note Text: Episode Visit Count: 5 Therapist That Will Accept/Oversee The Plan Of Care: Salvador Hart PT. Start of Care Date: 06/03/24 Onset Date: 05/04/24 Plan of Care Certification Date: 07/10/24 Next Certification Due Date: 08/15/24 Patient Identified by Name and Date of : Yes REHABILITATION AND SPORTS THERAPY PHYSICAL THERAPY TREATMENT NOTE ASSESSMENT: Sheila Crowe tolerated the session with decreased symptoms. She demonstrated limitations with Lumbar ROM today. Better symptoms following MT. The patient will continue to benefit from ongoing skilled physical therapy to progress toward set goals. PLAN FOR NEXT VISIT: Discuss how sxs have been; Begin TA Bracing in Sitting; NS Strength in standing if tolerated. SUBJECTIVE: Patient reports getting a lot worse the last couple of days; bending is worse for her, cannot get comfortable laying in bed or sitting, has to reposition frequently. Reports a lot of heat in the area, which is new. Started regressing 5 days ago, no ADRIANA or re-injury. Has not reached out to referring provider. Pain is not constant. Ice helps, exercises continue to help. Wondering if not walking as much has worsened pain. Pain: Pain Pain Level: 7 Pain Location: (Across the Low Back and Tailbone.) Description: Pressure (Tearing Type Pulling Pain per patient.) Frequency: Intermittent Post Treatment Pain Post Treatment Pain Level: 3 Post Treatment Pain Location: Low Back/Lumbar Spine - Left, Low Back/Lumbar Spine - Right OBJECTIVE MEASURES WITH LEVEL OF FUNCTION: Lumbar Spine AROM Lumbar Flexion: Minimal limitation (Unable to touch ground today due to pain.) Lumbar Extension: Minimal limitation, Pain during movement Lumbar R Side-Bend: Minimal limitation Lumbar L Side-Bend: Minimal limitation Lumbar R Rotation: Normal Lumbar L Rotation: Normal Lumbar Spine AROM Comments: Above is AROM today following recent subjective of worsening pain. TREATMENT: Manual Therapy: 1: STM with tennis ball to B L/S erectors and upper glutes. - Push to tolerance. In Prone Position with Pillow under low abdomen/pelvic region. 2: Soft Tissue Mobilization AND Erector Bowstringing with Hands to B Lumbar Paraspinals: Push to tolerance. Skilled Intervention: Manual skills to improve joint mobility, ROM, and decrease pain. Utilized anatomy knowledge of the therapist, and assessment of patient's response to intervention. Self-Mcc Management: 1: *Discussed sleeping positions and pillow in between the knees during side lying. 2: *Discussed log roll technique. 3: *Discussed progressing parameters and completion rate of HEP tomasa. if she is unable to complete walking/active movement. 4: *Discussed sitting position, props and changing positions once she feels sxs coming on. Skilled Intervention: Skilled judgment in the selection of proper modification for activity of daily living/home management based on clinical presentation, deficits, and needs. Reviewed patient specific diagnosis in relation to activities of daily living/home management. Billing Manual TherapyTreatment Minutes: 23 Self-Care/Home Management Treatment Minutes: 8 Skilled Treatment Time Minutes (timed and untimed codes): 31 Total Session Time (minutes): 31 Session Start Time : 1453 Session Stop Time : [address] [facility]09-11-2024 History of Present illness Narrative* Salvador Hart, PT - 07/10/2024 2:53 PM EDT Episode Visit Count: 5 Therapist That Will Accept/Oversee The Plan Of Care: Salvador Hart PT. Start of Care Date: 06/03/24 Onset Date: 05/04/24 Plan of Care Certification Date: 07/10/24 Next Certification Due Date: 08/15/24 Patient Identified by Name and Date of : Yes REHABILITATION AND SPORTS THERAPY PHYSICAL THERAPY TREATMENT NOTE ASSESSMENT: Sheila Crowe tolerated the session with decreased symptoms. She demonstrated limitations with Lumbar ROM today. Better symptoms following MT. The patient will continue to benefit from ongoing skilled physical therapy to progress toward set goals. PLAN FOR NEXT VISIT: Discuss how sxs have been; Begin TA Bracing in Sitting; NS Strength in standing if tolerated. SUBJECTIVE: Patient reports getting a lot worse the last couple of days; bending is worse for her, cannot get comfortable laying in bed or sitting, has to reposition frequently. Reports a lot of heatin the area, which is new. Started regressing 5 days ago, no ADRIANA or re-injury. Has not reached out to referring provider. Pain is not constant. Ice helps, exercises continue to help. Wondering if notwalking as much has worsened pain. Pain: Pain Pain Level: 7 Pain Location: (Across the Low Back and Tailbone.) Description: Pressure (Tearing Type Pulling Pain per patient.) Frequency: Intermittent Post Treatment Pain Post Treatment Pain Level: 3 Post Treatment Pain Location: Low Back/Lumbar Spine - Left, Low Back/Lumbar Spine - Right OBJECTIVE MEASURES WITH LEVEL OF FUNCTION: Lumbar Spine AROM Lumbar Flexion: Minimal limitation (Unable to touch ground today due to pain.) Lumbar Extension: Minimal limitation, Pain during movement Lumbar R Side-Bend: Minimal limitation Lumbar L Side-Bend: Minimal limitation Lumbar R Rotation: Normal Lumbar L Rotation: Normal Lumbar Spine AROM Comments: Above is AROM today following recent subjective of worsening pain. TREATMENT: Manual Therapy: 1: STM with tennis ball to B L/S erectors and upper glutes. - Push to tolerance. In Prone Position with Pillow under low abdomen/pelvic region. 2: Soft Tissue Mobilization & Erector Bowstringing with Hands to B Lumbar Paraspinals: Push to tolerance. Skilled Intervention: Manual skills to improve joint mobility, ROM, and decrease pain. Utilized anatomy knowledge of the therapist, and assessment of patient's response to intervention. Self-Mcc Management: 1: *Discussed sleeping positions and pillow in between the knees during side lying. 2: *Discussed log roll technique. 3: *Discussed progressing parameters and completion rate of HEP tomasa. if she is unable to complete walking/active movement. 4: *Discussed sitting position, props and changing positions once she feels sxs coming on. Skilled Intervention: Skilled judgment in the selection of proper modification for activity of daily living/home management based on clinical presentation, deficits, and needs. Reviewed patient specific diagnosis in relation to activities of daily living/home management. Billing Manual TherapyTreatment Minutes: 23 Self-Care/Home Management Treatment Minutes: 8 Skilled Treatment Time Minutes (timed and untimed codes): 31 Total Session Time (minutes): 31 Session Start Time : 1453 Session Stop Time : 1524 Salvador Hart PT documented in this encounter[facility]24 NoteHNO ID: [id number] Author: SALVADOR HART PT Service: ? Author Type: Physical Therapist Type: Progress Notes Filed: 07/04/2024 13:00 Note Text: Episode Visit Count: 4 Therapist That Will Accept/Oversee The Plan Of Care: Salvador Hart PT. Start of Care Date: 06/03/24 Onset Date: 05/04/24 Plan of Care Certification Date: 07/10/24 Next Certification Due Date: 08/15/24 Patient Identified by Name and Date of : Yes REHABILITATION AND SPORTS THERAPY PHYSICAL THERAPY PROGRESS REPORT PLAN OF CARE UPDATE: Assessment: Sheila Crowe demonstrates moderate improvement in pain severity + frequency (intermittent now), daily + physical activities, stair negotiation, Lumbar ROM, and sleeping. She has progressed toward goals. Patient continues to present with impairments in ADL's, overall function, range of motion, soft tissue healing, strength, symptom management, and tissue tenderness that interfere with standing, sitting (Prolonged Sitting.). Current prognosis is Excellent due to: current objective clinical presentation, positive past response to therapy, within-session changes . She will benefit from continued skilled therapy services to meet the updated goals for this plan of care as noted below. Updated 07/04/24. Goals for Episode of Care: created on 06/03/24 through 08/18/24 [place] in home exercise program. (Currently Met) Patient will decrease pain rating by 2 points to meet minimal clinical important difference for numeric pain rating scale. (Improving, continuing) Restore pain-free lumbar ROM to WNL to allow for improved ADLs/IADLs. (Progressing) Patient will report she will be able to tolerate prolonged stand / sit without pain/symptoms in 8 weeks or less. (Progressing) Sleep through night without pain/symptoms. (Improving, continuing) Patient will increase back extensor and core strength to 5/5 on objective testing. (Improving, continuing) Time Frame for Goals and Treatment : 08/15/24 Planned Interventions, Frequency, and Duration: 1x every other week, 6 weeks Total Number of Visits Planned: 3 Patient to be seen for Therapeutic exercise (99641), Neuromuscular re-education (37029), Manual therapy (12754), Therapeutic activities (63521), Self-alf management (71277), Body Mechanics Training, Patient/Family/Caregiver Education PLAN FOR NEXT VISIT: Erector Strength and Stability in Standing; Can return to STM on B erectors and upper glutes as tolerated. Classification Pain Mechanism Classification: Nociceptive Low Back Pain Classification: Functional Optimization SUBJECTIVE: Had 2-3 days where it was so much better at last weekend; then had a couple bad days with just sitting; however her pain is not as constant as before. Sitting and prolonged standing are still difficult. Reports after the stretches AND exercises, her pain decreases and states it is a lot better. Tailbone is where her sitting pain is. Ice helps with the tailbone. Functional Limitations: standing, sitting Functional Limitation Comments: (Prolonged Sitting.). Spine History Symptoms Location at Onset: Back Symptoms Since Onset: Improving Pain is Worse Always: Sitting, Standing, As the day progresses Pain: Pain Pain Level: 2 Pain Location: Low Back/Lumbar Spine - Left, Low Back/Lumbar Spine - Right Description: Pressure Frequency: Intermittent Post Treatment Pain Post Treatment Pain Level: No Change Post Treatment Pain Location: Low Back/Lumbar Spine - Left, Low Back/Lumbar Spine - Right PROMIS Scales 07/04/2024 06/25/2024 Higher is Better Phys Func - Score 40 (mild dysfunction) Phys Func - Percentile 16 Self-Eff Symptom - Score 44 (Average) Self-Eff Symptom - Percentile 27 T-scores: mean of general population = 50. 5 points is clinically meaningfully difference Percentiles provide an indication of how the patient's score ranks in relation to the general population. Higher percentile rankings indicate better function/quality of life. 50th percentile is the average of the general population and indicates half of respondents had a worse score. OBJECTIVE MEASURES WITH LEVEL OF FUNCTION: Posture / Alignment Sitting Posture: Slump, Perched Spine Observations R Lumbar Spine Palpation Tenderness: Paraspinals L Lumbar Spine Palpation Tenderness: Paraspinals Lumbar Spine AROM Lumbar Flexion: Normal (Can Touch Ground. Pain returning to stand.) Lumbar Extension: Minimal limitation, Pain during movement (This feels better per patient.) Lumbar R Side [place]: Minimal limitation Lumbar L Side [place]: Minimal limitation Lumbar R Side-Bend: Normal Lumbar L Side-Bend: Normal Lumbar R Rotation: Normal Lumbar L Rotation: Normal LE Strength Trunk Strength: 4+/5 R LE Strength: 5/5 gross L LE Strength: 5/5 gross Special Tests - Hip and Spine Hip and Spine Special Tests: SLR Test, Slump Test, CHI Test SLR Test: Right Negative, Left Negative Slum (more content not included)...[facility]09-05-2024 History of Present illness Narrative* Salvador Hart, PT - 07/04/2024 10:47 AM EDT Images from the original note were not included. Episode Visit Count: 4 Therapist That Will Accept/Oversee The Plan Of Care: Salvador Hart, PT. Start of Care Date: 06/03/24 Onset Date: 05/04/24 Plan of Care Certification Date: 07/10/24 Next Certification Due Date: 08/15/24 Patient Identified by Name and Date of : Yes REHABILITATION AND SPORTS THERAPY PHYSICAL THERAPY PROGRESS REPORT PLAN OF CARE UPDATE: Assessment: Sheila Crowe demonstrates moderate improvement in pain severity + frequency (intermittent now), daily + physical activities, stair negotiation, Lumbar ROM, and sleeping. She has progressed toward goals. Patient continues to present with impairments in ADL's, overall function, range of motion, soft tissue healing, strength, symptom management, and tissue tenderness that interfere with standing,sitting (Prolonged Sitting.). Current prognosis is Excellent due to: current objective clinical presentation, positive past response to therapy, within-session changes . She will benefit from continued skilled therapy services to meet the updated goals for this plan of care as noted below. Updated 07/04/24. Goals for Episode of Care: created on 06/03/24 through 08/18/24 [place] in home exercise program. (Currently Met) Patient will decrease pain rating by 2 points to meet minimal clinical important difference for numeric pain rating scale. (Improving, continuing) Restore pain-free lumbar ROM to WNL to allow for improved ADLs/IADLs. (Progressing) Patient will report she will be able to tolerate prolonged stand / sit without pain/symptoms in 8 weeks or less. (Progressing) Sleep through night without pain/symptoms. (Improving, continuing) Patient will increase back extensor and core strength to 5/5 on objective testing. (Improving, continuing) Time Frame for Goals and Treatment : 08/15/24 Planned Interventions, Frequency, and Duration: 1x every other week, 6 weeks Total Number of Visits Planned: 3 Patient to be seen for Therapeutic exercise (24051), Neuromuscular re-education (21509), Manual therapy (91847), Therapeutic activities (39515), Self-alf management (71957), Body Mechanics Training, Patient/Family/Caregiver Education PLAN FOR NEXT VISIT: Erector Strength and Stability in Standing; Can return to STM on B erectors and upper glutes as tolerated. Classification Pain Mechanism Classification: Nociceptive Low Back Pain Classification: Functional Optimization SUBJECTIVE: Had 2-3 days where it was so much better at last weekend; then had a couple bad days with just sitting; however her pain is not as constant as before. Sitting and prolonged standing are still difficult. Reports after the stretches & exercises, her pain decreases and states it is a lot better. Tailbone is where her sitting pain is. Ice helps with the tailbone. Functional Limitations: standing, sitting Functional Limitation Comments: (Prolonged Sitting.). Spine History Symptoms Location at Onset: Back Symptoms Since Onset: Improving Pain is Worse Always: Sitting, Standing, As the day progresses Pain: Pain Pain Level: 2 Pain Location: Low Back/Lumbar Spine - Left, Low Back/Lumbar Spine - Right Description: Pressure Frequency: Intermittent Post Treatment Pain Post Treatment Pain Level: No Change Post Treatment Pain Location: Low Back/Lumbar Spine - Left, Low Back/Lumbar Spine - Right PROMIS Scales 07/04/2024 06/25/2024 Higher is Better Phys Func - Score 40 (mild dysfunction) Phys Func - Percentile 16 Self-Eff Symptom - Score 44 (Average) Self-Eff Symptom - Percentile 27 T-scores: mean of general population = 50. 5 points is clinically meaningfully difference Percentiles provide an indication of how the patient's score ranks in relation to the general population. Higher percentile rankings indicate better function/quality of life. 50th percentile is the average of the general population and indicates half of respondents had a worse score. OBJECTIVE MEASURES WITH LEVEL OF FUNCTION: Posture / Alignment Sitting Posture: Slump, Perched Spine Observations R Lumbar Spine Palpation Tenderness: Paraspinals L Lumbar Spine Palpation Tenderness: Paraspinals Lumbar Spine AROM Lumbar Flexion: Normal (Can Touch Ground. Pain returning to stand.) Lumbar Extension: Minimal limitation, Pain during movement (This feels better per patient.) Lumbar R Side [place]: Minimal limitation Lumbar L Side [place]: Minimal limitation Lumbar R Side-Bend: Normal Lumbar L Side-Bend: Normal Lumbar R Rotation: Normal Lumbar L Rotation: Normal LE Strength Trunk Strength: 4+/5 R LE Strength: 5/5 gross L LE Strength: 5/5 gross Special Tests - Hip and Spine Hip and Spine Special Tests: SLR Test, Slump Test, CHI Test SLR Test: Right Negative, Left Negative Slump Test: Right Negative, Left Negative CHI Test: Right Negative, Left Negative Special Test Comments: Supine Leg Lowering from 90/90 - Negative. TREATMENT: Therapeutic Exercise: 1: *Re-assessment & objectives taken per above, discussion on patient's progress; discussed HEPand POC moving forward. 2: *Discussion on remaining symptoms for patient and exam findings. Skilled Intervention: Patient was educated in proper exercise technique and purpose for exercises. Reviewed home exercise program as above. Patient education as noted. Manual Therapy: 1: Long [place] and Short [place] Hip Distraction Bilaterally: Pull to tolerance. (Both provided relief for the patient.) Manual Traction: Manual L/S Traction with LEs propped 90/90: Pull to tolerance. (Patient reports noinstant relief or relief following completion. Reports pulling during but no pain.) Skilled Intervention: Manual skills to improve joint mobility, ROM, and decrease pain. Utilized anatomy knowledge of the therapist, and assessment of patient's response to intervention. Billing Therapeutic Exercise Treatment Minutes: 25 Manual TherapyTreatment Minutes: 15 Skilled Treatment Time Minutes (timed and untimed codes): 40 Total Session Time (minutes): 43 Session Start Time : 1045 Session Stop Time : 1128 Salvador Hart PT documented in this encounterMer[facility] NoteHNO ID: [id number] Author: JOVAN PAIGE PT Service: ? Author Type: Physical Therapist Type: Progress Notes Filed: 06/27/2024 14:53 Note Text: Episode Visit Count: 3 Therapist That Will Accept/Oversee The Plan Of Care: Salvador Hart PT. Start of Care Date: 06/03/24 Onset Date: 05/04/24 Plan of Care Certification Date: 06/03/24 Next Certification Due Date: 07/10/24 Patient Identified by Name and Date of : Yes REHABILITATION AND SPORTS THERAPY PHYSICAL THERAPY TREATMENT NOTE ASSESSMENT: Sheila Crowe tolerated the session with fatigue and expected muscle soreness. She demonstrated difficulty with PPT with LE involovement. The patient will continue to benefit from ongoing skilled physical therapy to progress toward set goals. PLAN FOR NEXT VISIT: Consider trialing traction. SUBJECTIVE: Pt reports that her back is not feeling too bad, jsut did her stretches prior to coming to therapy today. Pt states that she is getting a new burning or tearing sensation in her tail bone with prolonged sitting. Pt states that she is using ice and that is helping ro relieve the pain fro awhile. Unable to tolerate sitting more than 20 minutes. Pain is really bad with going up stairs across her low back and hip. Pain is getting worse as the day goes on. Pt denies any saddle area parasthesias, no loss of bowel or bladder. Pt states that she does have some instances of not being able to void urine, most of the time in the morning when waking up, has to drink some coffee first. Pain: Pain Pain Level: 5 Pain Location: Low Back/Lumbar Spine - Left, Low Back/Lumbar Spine - Right Description: Pressure, Burning Frequency: Continuous Post Treatment Pain Post Treatment Pain Level: No Change Post Treatment Pain Location: Low Back/Lumbar Spine - Left, Low Back/Lumbar Spine - Right OBJECTIVE MEASURES WITH LEVEL OF FUNCTION: Difficulty returning to neutral seated position with seated,repeated lumbar flexion . TREATMENT: Therapeutic Exercise: 1: Seated,repeated lumbar flexion x10 2: Reviewed yoga stretches pt is performing at home and okayed her to keep continuing with stretches that do not cause increased LBP. 3: TA Bracing in [place]10, 5-sec holds. 4: PPT: 2x10, 2-3sec hold. 5: PPT with alt marching and toe taps attempted, but discotninued, pain increased. 6: Hook[place] TA activation with push into 55 cm physioball 2x10 Skilled Intervention: Patient was educated in proper exercise technique and purpose for exercises. Skilled judgment was used in selection of appropriate interventions. Correct performance of therapeutic exercises was facilitated with verbal and visual cuing. Self-Mcc Management: 1: Discussed symptoms of cauda equina and what to do if symptoms worsen or if she is unable to void urine more frequently. 2: Discussed difference between muscle and nerve weakness Skilled Intervention: Skilled judgment in the selection of proper modification for activity of daily living/home management based on clinical presentation, deficits, and needs. Activity progression based on professional judgement. Billing Therapeutic Exercise Treatment Minutes: 29 Self-Care/Home Management Treatment Minutes: 15 Skilled Treatment Time Minutes (timed and untimed codes): 44 Total Session Time (minutes): 44 Session Start Time : 1016 Session Stop Time : 1100 HARMAN Childs, [facility]08-29-2024 History of Present illness Narrative* Jovan Paige, PT - 06/27/2024 10:18 AM EDT Episode Visit Count: 3 Therapist That Will Accept/Oversee The Plan Of Care: Salvador Hart PT. Start of Care Date: 06/03/24 Onset Date: 05/04/24 Plan of Care Certification Date: 06/03/24 Next Certification Due Date: 07/10/24 Patient Identified by Name and Date of : Yes REHABILITATION AND SPORTS THERAPY PHYSICAL THERAPY TREATMENT NOTE ASSESSMENT: Sheila Crowe tolerated the session with fatigue and expected muscle soreness. She demonstrated difficulty with PPT with LE involovement. The patient will continue to benefit from ongoing skilled physical therapy to progress toward set goals. PLAN FOR NEXT VISIT: Consider trialing traction. SUBJECTIVE: Pt reports that her back is not feeling too bad, jsut did her stretches prior to comingto therapy today. Pt states that she is getting a new burning or tearing sensation in her tail bonewith prolonged sitting. Pt states that she is using ice and that is helping ro relieve the pain froawhile. Unable to tolerate sitting more than 20 minutes. Pain is really bad with going up stairs across her low back and hip. Pain is getting worse as the day goes on. Pt denies any saddle area parasthesias, no loss of bowel or bladder. Pt states that she does have some instances of not being able to void urine, most of the time in the morning when waking up, has to drink some coffee first. Pain: Pain Pain Level: 5 Pain Location: Low Back/Lumbar Spine - Left, Low Back/Lumbar Spine - Right Description: Pressure, Burning Frequency: Continuous Post Treatment Pain Post Treatment Pain Level: No Change Post Treatment Pain Location: Low Back/Lumbar Spine - Left, Low Back/Lumbar Spine - Right OBJECTIVE MEASURES WITH LEVEL OF FUNCTION: Difficulty returning to neutral seated position with seated,repeated lumbar flexion . TREATMENT: Therapeutic Exercise: 1: Seated,repeated lumbar flexion x10 2: Reviewed yoga stretches pt is performing at home and okayed her to keep continuing with stretches that do not cause increased LBP. 3: TA Bracing in Hooklyinx10, 5-sec holds. 4: PPT: 2x10, 2-3sec hold. 5: PPT with alt marching and toe taps attempted, but discotninued, pain increased. 6: Hooklying TA activation with push into 55 cm physioball 2x10 Skilled Intervention: Patient was educated in proper exercise technique and purpose for exercises. Skilled judgment was used in selection of appropriate interventions. Correct performance of therapeutic exercises was facilitated with verbal and visual cuing. Self-Mcc Management: 1: Discussed symptoms of cauda equina and what to do if symptoms worsen or if she is unable to voidurine more frequently. 2: Discussed difference between muscle and nerve weakness Skilled Intervention: Skilled judgment in the selection of proper modification for activity of daily living/home management based on clinical presentation, deficits, and needs. Activity progression based on professional judgement. Billing Therapeutic Exercise Treatment Minutes: 29 Self-Care/Home Management Treatment Minutes: 15 Skilled Treatment Time Minutes (timed and untimed codes): 44 Total Session Time (minutes): 44 Session Start Time : 1016 Session Stop Time : 1100 HARMAN Childs PT documented in this encounterMer[facility] History of Present illness Narrative* Aicha Dempsey RT(R) - 06/21/2024 2:10 PM EDT Radiology Service Progress Note PATIENT NAME: Sheila Crowe DATE OF SERVICE: June 21, 2024 TIME: 2:02 PM PATIENT IDENTITY VERIFICATION COMPLETED USING TWO (2) IDENTIFIERS: Name and Date of confirmedby patient verbally. FALL SCREENING: Has the patient had 2 falls in the last year or 1 fall with injury or currently using an Ambulatory Assistive Device (Walker, Cane, Wheelchair, Crutches, etc.)? No PATIENT GENDER DATA: Female. status: : No status: NO. PATIENT RELEVANT IMPLANT DATA REVIEWED: Yes PATIENT PRESENTS WITH AN IMPLANTABLE OR ATTACHED MANAGEMENT ASSOCIATE: No RADIOLOGY DEPARTMENT: General X-ray: Exam(s) Completed: Spine X-Ray(s): Sacrum/Coccyx PERIPHERAL IV DATA: Not applicable SIGNED BY: RT Efrain(R) June 21, 2024 2:02 PM documented in this encounterMercy Health [facility]08-23-2024 NoteHNO ID: [id number] Author: AICHA DEMPSEY RT(Brittany) Service: ? Author Type: Weigher And Grader Type: Progress Notes Filed: 06/21/2024 14:11 Note Text: Radiology Service Progress Note PATIENT NAME: Sheila Crowe DATE OF SERVICE: June 21, 2024 TIME: 2:02 PM PATIENT IDENTITY VERIFICATION COMPLETED USING TWO (2) IDENTIFIERS: Name and Date of confirmed by patient verbally. FALL SCREENING: Has the patient had 2 falls in the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 is an expected metabolite of trazodone. Ziprasidone PRESENT UNEXPECTED Diphenhydramine PRESENT UNEXPECTED Benztropine PRESENT UNEXPECTED Test Result Flag Units Ref Range Creatinine 31 mg/dL >=20 Declared Medications: The flagging and interpretation on this report are based on the following declared medications. Unexpected results may arise from inaccuracies in the declared medications. Note: The testing scope of this panel includes these medications: Gabapentin Note: The testing scope of this panel does not include small to moderate amounts of these reported medications: Buprenorphine For clinical consultation, please call . Last Opioid agreement effective date: 11/10/2023 Please review and advise. Joanna Sutherland RN [facility]05-[facility] History of Present illness Narrative* Yomi Suarez MD - 03/04/2024 1:51 PM EDT Chief Complaint Patient presents with: Sleep Problem HPI Sheila Crowe is a 43 year old female who presents here today for ER follow up. Patient was evaluated at [facility] ER on 02/28 for complaint of difficulty sleeping. Noted shehas history of bipolar disorder which is managed by psychiatry at [facility]. Difficulty sleeping related to manic symptoms which she reported was improved by Ativan in the past. Had been taking ambien with no relief. Evaluation in the ER showed patient with good insight into her predicamentand was given total of 4 tablets of 2 mg Ativan on discharge. Recommended she follow up with psychiatrist for further treatment. Since discharge, patient states that she has been taking Ativan as prescribed which does help with her sleep. The first night she took with Ambien. Patient was able to talk with her psychiatrist's nurse today and they advised her to not take the Ambien with her Ativan. Her next appointment with psychiatrist is in March. Patient states that she she is getting racing thoughts at night which are keeping her up and she feels like she has a lot of energy. Denies SI/HI at this time. Has history of multiple suicide attempts with medication overdose. She sets up her medication for the week, but gives the rest of her medications to her mother. Aside from Ambien, she has tried trazodone more than a year ago to help with sleep. Helped for a while, but then wore off and she was placed on Ambien. OTC she has taken benadryl and tylenol PM without improvement. Reviewing patient's OARRS, she has been getting Ambien from [facility] and is also on Buprenorphine and flexeril from [facility]. She states she takes this for fibromyalgia and chronic pain in her feet. Past medical history, appointments, medications, allergies reviewed. Previous Medical History PAST MEDICAL HISTORY Diagnosis Date Allergic rhinitis due to other allergen Bipolar I disorder, most recent episode (or current) unspecified hosp 04 mutile suicide attempts/Dr. Jenkins Hypercalcemia Migraine without aura Morbid obesity (HCC) stated BMI HT: 68 WT: 375 Myalgia and myositis, unspecified Other specified cardiac dysrhythmias(427.89) PMH - PAST MEDICAL HISTORY OF MONO Unspecified essential hypertension Previous Surgical History PAST SURGICAL HISTORY Procedure Laterality Date ADENOIDECTOMY PRIMARY <AGE 11 1994 Adenoidectomy COLONOSCOPY W/BIOPSY SINGLE/MULTIPLE 12/23/2019 EXTRACTION, ERUPTED TOOTH OR EXPOSED ROOT (ELEVATION AND/OR FORCEPS REMOVAL) 1995 [place] teeth TONSILLECTOMY PRIMARY/SECONDARY <AGE 12 1994 Tonsillectomy Family History FAMILY HISTORY Problem Relation Age of Onset Rheumatologic disease Mother other (stiff persons disease) Father other (autoimmune disorder) Father Diabetes Brother Type 1, age 40 Diabetes Maternal Grandmother Diabetes Paternal Grandmother Heart Paternal Grandmother Patient Allergies ALLERGIES Allergen Reactions Clindamycin Diarrhea Hives, cramping Levaquin [Levofloxa* Swelling Penicillins Rash Sulfa (Sulfonamide * Unknown Zithromax [Azithrom* Itching Current Medications Current Outpatient Medications on File Prior to Visit Medication Sig buprenorphine (BUTRANS) 20 mcg/hour transdermal patch Apply 1 Patch as directed one time a week for28 days. Do not start before February 15, 2024. cyclobenzaprine (FLEXERIL) 10 mg tablet Take 1 tablet by mouth three times a day as needed for muscle spasm. [id number] carb-vit K (WOMEN'S MULTIVITAMIN) 18 mg-400 mcg- 500 mg-50 mcg tab Women's Multivitamin 18 mg-400 mcg- 500 mg-50 mcg tablet spironolactone (ALDACTONE) 25 mg tablet Take 25 mg by mouth three times a day. ziprasidone (GEODON) 20 mg capsule Take 20 mg by mouth three times daily. ziprasidone (GEODON) 60 mg capsule Take 60 mg by mouth once daily. topiramate (TOPAMAX) 100 mg tablet Take 100 mg by mouth once daily. topiramate (TOPAMAX) 200 mg tablet Take 400 mg by mouth once daily. valbenazine (INGREZZA) 80 mg capsule Take 80 mg by mouth once daily. benztropine (COGENTIN) 2 mg tablet Take 2 mg by mouth four times daily. losartan (COZAAR) 25 mg tablet Take 25 mg by mouth twice daily. lamoTRIgine (LAMICTAL) 200 mg tablet Take 400 mg by mouth once daily. meloxicam (MOBIC) 15 mg tablet Take 0.5-1 tablets by mouth once daily as needed for pain. diclofenac sodium-menthol (DITHOL) 1.5-10 % combo pack Apply to affected area. ketoconazole (NIZORAL) 2 % shampoo zolpidem (AMBIEN) 10 mg Take 10 mg by mouth daily at bedtime. (Patient not taking: Reported on 03/04/2024) traZODone (DESYREL) 100 mg tablet Take 1 tablet by mouth daily at bedtime. (Patient not taking: Reported on 03/04/2024) No current facility-administered medications on file prior to visit. Social History Social History Tobacco Use Smoking status: Former Packs/day: .5 Types: Cigarettes Quit date: 06/16/2008 Years since quittin.7 Smokeless tobacco: Never Vaping Use Vaping Use: Never used Substance Use Topics Alcohol use: No Drug use: No Review of Symptoms REVIEW OF SYSTEMS See HPI EXAM: BP 100/62 Pulse 68 Resp 16 Wt 83.7 kg (184 lb 9.6 oz) LMP 02/22/2024 SpO2 98% BMI 28.07kg/m General Appearance: Well appearing, alert, in no acute distress, well-hydrated, well nourished.. Skin: Skin color, texture, turgor normal, no suspicious rashes or lesions. Lungs: Lungs clear to auscultation. No wheezing, rhonchi, rales.. Heart: RRR without murmur, gallop, or rubs. No ectopy. Health Maintenance List BP Controlled (<130/80) Never done Pap Testing due on 07/27/2023 Behavioral Health Screening Never done Hepatitis B Vaccine(1 of 3 - 19+ 3-dose series) due on 04/12/2024 Covid-19 Vaccine( - 2022- season) due on 10/13/2024 Influenza Vaccine(Season Ended) due on 06/30/2024 Mammogram Screening due on 12/11/2024 Annual PCP Team Chronic Disease Visit due on 01/28/2025 HPV Testing due on 07/27/2025 DTaP,Tdap,Td Vaccine(4 - Td or Tdap) due on 01/09/2032 Hepatitis C Screening Completed HIV Screening Completed HPV Vaccine Aged Out ASSESSMENT/PLAN: 1. Chronic insomnia - ICD9: 780.52, ICD10: F51.04 (primary diagnosis) Patient's symptoms uncontrolled on current regimen. Discussed stopping ambien and repeating treatment with trazodone qhs until she can get in for appointment with psychiatry. Discussed with her current use of buprenorphine, I would not feel comfortable giving her nightly benzos due to potential interaction causing [employer] depression and possible overdose. Patient denies SI/HI at this time and feels safe going home. 2. Generalized anxiety disorder - ICD9: 300.02, ICD10: F41.1 See above. F/u with psychiatry. 3. Bipolar I disorder (HCC) - ICD9: 296.7, ICD10: F31.9 See above. F/u with psychiatry. 4. Other mcfp (current) drug therapy - ICD9: V58.69, ICD10: Z79.899 See above. F/u with psychiatry. 5. History of suicide attempt - ICD9: V11.8, ICD10: Z91.51 See above. F/u with psychiatry. Yomi Suarez MD [facility] Hospital Discharge instructions Patient Education 02/29/2024 17:48:10 Insomnia Insomnia Insomnia is repeated difficulty going to sleep or staying asleep, or both. Whether you have insomnia is not defined by a specific amount of sleep. Different people need different amounts of sleep, and you may need more or less sleep at different times of your life. There are 3 major types of insomnia: short-term, chronic, and other. Short-term, or acute insomnia lasts less than 3 months. The symptoms are temporary and can be linked directly to a stressor, such as the of a loved one, financial problems, or a new physical problem. Short-term insomnia stops when the stressor resolves or the person adapts to its presence. Chronic insomnia occurs at least 3 times a week and lasts longer than 3 months. Chronic insomnia can occur when either the cause of the sleeping problem is not clear, or the insomnia does not get better when the stressor is resolved. A number of other criteria are also used to make the diagnosis ofchronic insomnia. Other insomnia is the third type of insomnia-related sleep disorders. This description applies to people who have problems getting to sleep or staying asleep, but don't meet all of the factors that describe either short-term or chronic insomnia. Many things cause insomnia. Different people may have different causes. It can be from an underlying medical or psychological condition, or lifestyle. It can also be primary insomnia, which means no cause can be found. Causes of insomnia include: Chronic medical problems- heart disease, gastrointestinal problems, hormonal changes, breathing problems Anxiety Stress Depression Pain Work schedule Sleep apnea Illegal drugs Certain medicines Many different medicines can affect your sleep, such as stimulants, caffeine, alcohol, some decongestants, and diet pills. Other medicines may include some types of blood pressure pills, steroids, asthma medicines, antihistamines, antidepressants, seizure medicines and statins. Not all of these will affect your sleep, and they shouldn t be stopped without talking to your doctor. Symptoms of insomnia can include: Lying awake for long periods at night before falling asleep Waking up several times during the night Waking up early in the morning and not being able to get back to sleep Feeling tired and not refreshed by sleep Not being able to function properly during the day and finding it hard to concentrate Irritability Tiredness and fatigue during the day Home care Review your medicines with your doctor or pharmacist to find out if they can cause insomnia. Not all medicines will affect your sleep, but they shouldn't be stopped without reviewing them with your doctor. There may be serious side effects and consequences from suddenly stopping your medicines. Nottaking them may cause strokes, heart attacks, and many other problems. Caffeine, smoking, and alcohol also affect sleep. Limit your daily use and don't use these before bedtime. Alcohol may make you sleepy at first, but as its effects wear off, you may awaken a few hours later and have trouble returning to sleep. Don't exercise, eat or drink large amounts of liquid within 2 hours of your bedtime. Improve your sleep habits. Have a fixed bed and wake-up time. Try to keep noise, light and heat in your bedroom at a comfortable level. Try using earplugs or eyeshades if needed. Don't watch TV in bed. If you don't fall asleep within 30 minutes, try to relax by reading or listening to soft music. Limit daytime napping to one 30 minute period, early in the day. Get regular exercise. Find other ways to lessen your stress level. If a medicine was prescribed to help reset your sleep patterns, take it as directed. Sleeping pillsare intended for short-term use, only. If taken for too long, the effect wears off while the risk of physical addiction and psychological dependence increases. Sleep diary If the cause isn t obvious and it is not improving, try keeping a sleep diary for a couple of weeks. Include in it: The time you go to bed How long it takes to fall asleep How many times you wake up What time you wake up Your meal times and what you eat What time you drink alcohol and caffeine Your exercise habits and times Follow-up care Follow up with your healthcare provider, or as advised. If an X-ray or CT scan was done, you will be notified if there is a change in the reading, especially if it affects treatment. Call 911 Call 911 if any of these occur: Trouble breathing Confusion or trouble waking Fainting or loss of consciousness Rapid heart rate New chest, arm, shoulder, neck or upper back pain Trouble with speech or vision, weakness of an arm or leg Trouble walking or talking, loss of balance, numbness or weakness in one side of your body, facial droop When to seek medical advice Call your healthcare provider right away if any of these occur: Extreme restlessness or irritability Confusion or hallucinations (seeing or hearing things that are not there) Anxiety, depression Several days without sleeping [id number] [employer] [place] [address]. All rights reserved. This information is not intended as a substitute for professional medical care. Always follow yourhealthcare professional's instructions. Follow Up Care 02/29/2024 17:33:21 With:TORRES YAO Address: SHAUNNA CRU[address] [facility] [address] [place] [address] [phone] Business (1) When:2-4 days Comments:Use Ativan as needed, this is only short-term medication. You must follow-up with your doctor, return if any worsening or concerning symptoms. [facility] 05-02-[facility] Note Discharge Instructions Thank you for allowing [facility] to assist you with your healthcare needs. The following is importantdischarge information regarding your hospital visit. Diagnosis from Today's Visit Insomnia Insomnia What to Do Next Instructions from Your Care Team No qualifying data available. Post Acute Orders No qualifying data available. You Need to Schedule the Following Appointments Follow Up with TORRES YAO When Within 2-4 days Why: Use Ativan as needed, this is only short-term medication. You must follow- up with your doctor,return if any worsening or concerning symptoms. Where: [facility] [address] [place] [address]- [phone] Business (1) Allergies clindamycin penicillin sulfa drug Medications Please ask your primary doctor or pharmacist before taking any other medication not listed, including over the counter drugs, herbal medications, vitamins and or supplements as they may interact withyour home medications. What How Much When Why Instructions Last Dose New LORazepam (Ativan 2 mg oral tablet) 1 tab(s) by mouth Daily at bedtime as needed for for insomnia Insomnia Duration: 2 Days Printed Prescription Unchanged benztropine (benztropine 2 mg oral tablet) 1 tab(s) by mouth Four (4) times a day Unchanged buprenorphine (Belbuca 150 mcg buccal film) 1 Each in the cheek Every 12 hours Unchanged buprenorphine (Butrans 20 mcg/ hr transdermal film, extended release) 1 patch(es) Topical Every week Unchanged cyclobenzaprine (cyclobenzaprine 10 mg oral tablet) take 1 tablet by mouth three times a day if needed for muscle spasm Unchanged hydrOXYzine (hydrOXYzine pamoate 50 mg oral capsule) 1 cap by mouth Three (3) times a day Unchanged lamoTRIgine (LaMICtal 200 mg oral tablet) 2 tab(s) by mouth Once a day Unchanged losartan (losartan 25 mg oral tablet) 1 tab(s) by mouth Two (2) times a day Unchanged meloxicam (meloxicam 15 mg oral tablet) take 1/ 2 to 1 tablet by mouth once daily if needed Unchanged metaxalone (metaxalone 800 mg oral tablet) 1 tab(s) by mouth Three (3) times a day Unchanged pregabalin (pregabalin 25 mg oral capsule) 1 cap by mouth Four (4) times a day Unchanged spironolactone (spironolactone 25 mg oral tablet) See instructions Take 2 tabs in am and 1 tab in am Unchanged topiramate (Topamax 100 mg oral tablet) by mouth Every day Unchanged valbenazine (Ingrezza 80 mg oral capsule) 1 cap by mouth Once a day Unchanged ziprasidone (ziprasidone 20 mg oral capsule) 2 cap by mouth Every day Unchanged ziprasidone (ziprasidone 60 mg oral capsule) 1 cap by mouth Every day Unchanged zolpidem (Ambien 10 mg oral tablet) 1 tab(s) by mouth Daily at bedtime Please take this list to your next doctor s visit. Bring all medications you take, including over the counter medications, herbals and other supplements with you to your doctor s visit. Patients and families are reminded to discard old lists and to update any records with all medication providers or retail pharmacies. Medication Leaflets lorazepam (oral) (vita A ze jaxon) Ativan, Lorazepam Intensol, Loreev XR What is the most important information I should know about lorazepam? Lorazepam can slow or stop your breathing, especially if you have recently used an opioid medication or alcohol. MISUSE OF THIS MEDICINE CAN CAUSE ADDICTION, OVERDOSE, OR . Keep this medicine where others cannot get to it. You may have withdrawal symptoms if you stop using lorazepam suddenly. Ask your doctor before stopping the medicine. What is lorazepam? Lorazepam is used in adults and children at least 12 years old to treat anxiety disorders. Extended-release lorazepam is used in adults to treat anxiety disorders. Lorazepam may also be used for purposes not listed in this medication guide. What should I discuss with my healthcare provider before taking lorazepam? You should not use lorazepam if you have: narrow-angle glaucoma; or a history of allergic reaction to any benzodiazepine (lorazepam, alprazolam, diazepam, Valium, Xanax, Versed, Klonopin, and others). Tell your doctor if you have ever had: asthma, chronic obstructive pulmonary disease (COPD), sleep apnea, or other breathing disorder; drug or alcohol addiction; depression, mental illness or psychosis, mood changes, or suicidal thoughts or actions; seizures; an allergy to aspirin or yellow food dye; or kidney or liver disease. Tell your doctor if you are or plan to become . If you use lorazepam during , your baby could be born with life-threatening withdrawal symptoms, and may need medical treatment for several weeks. If you are , your name may be listed on a registry to track the effects of lorazepam on the baby. You should not breastfeed. If you do breastfeed, tell your doctor if you notice drowsiness, feeding problems, or slow weight gain in the nursing baby. How should I take lorazepam? Follow the directions on your prescription label and read all medication guides or instruction sheets. Never use lorazepam in larger amounts, or for longer than prescribed. Tell your doctor if you feel an increased urge to use more of this medicine. Never share this medicine with another person, especially someone with a history of drug addiction.MISUSE CAN CAUSE ADDICTION, OVERDOSE, OR . Keep the medicine where others cannot get to it. Selling or giving away this medicine is against the law. Measure the oral concentrate (liquid) with the supplied measuring device (not a kitchen spoon). Mixthe liquid with water, juices, soda or soda-like beverages, or with semi-solid foods such as applesauce or puddings. Swallow this mixture right away. Swallow the extended-release capsule whole and do not crush, chew, break, or open it. If you cannot swallow a capsule whole, open it and mix the medicine with applesauce. Swallow the mixture right away without chewing. Do not stop using lorazepam without asking your doctor. You may have life- threatening withdrawal symptoms if you stop using the medicine suddenly after long-term use. Store tightly closed at room temperature, away from moisture and heat. Store the liquid form of lorazepam in the refrigerator. Throw away any liquid not used within 90 days. Keep your medicine in a place where no one can use it improperly. What happens if I miss a dose? Take the medicine as soon as you can, but skip the missed dose if it is almost time for your next dose. Do not take two doses at one time. What happens if I overdose? Seek emergency medical attention or call the Poison Help line at . An overdose of lorazepam can be fatal if you also drink alcohol or use other drugs that cause drowsiness or slow breathing. Overdose symptoms may include severe drowsiness, confusion, slurred speech, feeling restless, muscle weakness, loss of balance or coordination, feeling light-headed, slow heartbeats, weak or shallow breathing, or coma. What should I avoid while taking lorazepam? Do not drink alcohol. Dangerous side effects or could occur. Avoid driving or hazardous activity until you know how this medicine will affect you. Dizziness or drowsiness can cause falls, accidents, or severe injuries. What are the possible side effects of lorazepam? Get emergency medical help if you have signs of an allergic reaction: hives; difficulty breathing; swelling of your face, lips, tongue, or throat. Lorazepam can slow or stop your breathing, especially if you have recently used an opioid medication or alcohol. A person caring for you should seek emergency medical attention if you have slow breathing with long pauses, blue colored lips, or if you are hard to wake up. Call your doctor at once if you have: severe drowsiness; unusual changes in mood or behavior, being agitated or talkative; sudden restless feeling or excitement; seizures, depression, thinking problems, thoughts of suicide or hurting yourself; confusion, aggression, hallucinations; sleep problems (insomnia); vision changes; or dark urine, or jaundice (yellowing of the skin or eyes). Drowsiness or dizziness may last longer in older adults. Use caution to avoid falling or accidentalinjury. Common side effects may include: dizziness, sedation, drowsiness; weakness; or feeling unsteady. You will need frequent blood tests to check your blood counts and liver function. After you stop using lorazepam, seek medical help right away if you have symptoms such as: unusual muscle movements, being more active or talkative, sudden and severe changes in mood or behavior, confusion, hallucinations, seizures, suicidal thoughts or actions. Some withdrawal symptoms may last up to 12 months or longer after stopping this medicine suddenly. Tell your doctor if you have ongoing anxiety, depression, problems with memory or thinking, trouble sleeping, ringing in your ears, a burning or prickly feeling, or a crawling sensation under your skin. This is not a complete list of side effects and others may occur. Call your doctor for medical advice about side effects. You may report side effects to FDA at 7-242-BVB-2627. What other drugs will affect lorazepam? Taking lorazepam with other drugs that slow your breathing can cause dangerous side effects or . Ask your doctor before using opioid medication, a sleeping pill, a muscle relaxer, or medicine for anxiety or seizures. Tell your doctor about all your other medicines, especially: valproate, probenecid, aminophylline, or theophylline; medicine to treat mental illness; or medicine that contains an antihistamine (such as sleep medicine, cold or allergy medicine). This list is not complete and many other drugs may affect lorazepam. This includes prescription [id number] medicines, vitamins, and herbal products. Not all possible drug interactions are listed here. Where can I get more information? Your doctor or pharmacist can provide more information about lorazepam. Remember, keep this and all other medicines out of the reach of children, never share your medicines with others, and use this medication only for the indication prescribed. Every effort has been made to ensure that the information provided by [employer]. ('[employer]') is accurate, up-to-date, and complete, but no guarantee is made to that effect. Drug information contained herein may be time sensitive. [employer] information has been compiled for use by healthcare practitioners and consumers in the [place] and therefore [employer] does not warrant that uses outside of the [place] are appropriate, unless specifically indicated otherwise. [employer] drug information does not endorse drugs, diagnose patients or recommend therapy. [employer] drug information isan informational resource designed to assist licensed healthcare practitioners in caring for their p atients and/or to serve consumers viewing this service as a supplement to, and not a substitute for, the expertise, skill, knowledge and judgment of healthcare practitioners. The absence of a warningfor a given drug or drug combination in no way should be construed to indicate that the drug or drug combination is safe, effective or appropriate for any given patient. [employer] does not assume any responsibility for any aspect of healthcare administered with the aid of information [employer] provides. The information contained herein is not intended to cover all possible uses, directions, precautions, warnings, drug interactions, allergic reactions, or adverse effects. If you have questions about the drugs you are taking, check with your doctor, nurse or pharmacist. Copyright 8713-8794 [employer]. Version: 10.04. Revision Date: 03/20/2023. Education Materials Insomnia Insomnia is repeated difficulty going to sleep or staying asleep, or both. Whether you have insomnia is not defined by a specific amount of sleep. Different people need different amounts of sleep, and you may need more or less sleep at different times of your life. There are 3 major types of insomnia: short-term, chronic, and other. Short-term, or acute insomnia lasts less than 3 months. The symptoms are temporary and can be linked directly to a stressor, such as the of a loved one, financial problems, or a new physical problem. Short-term insomnia stops when the stressor resolves or the person adapts to its presence. Chronic insomnia occurs at least 3 times a week and lasts longer than 3 months. Chronic insomnia can occur when either the cause of the sleeping problem is not clear, or the insomnia does not get better when the stressor is resolved. A number of other criteria are also used to make the diagnosis ofchronic insomnia. Other insomnia is the third type of insomnia-related sleep disorders. This description applies to people who have problems getting to sleep or staying asleep, but don't meet all of the factors that describe either short-term or chronic insomnia. Many things cause insomnia. Different people may have different causes. It can be from an underlying medical or psychological condition, or lifestyle. It can also be primary insomnia, which means no cause can be found. Causes of insomnia include: Chronic medical problems- heart disease, gastrointestinal problems, hormonal changes, breathing problems Anxiety Stress Depression Pain Work schedule Sleep apnea Illegal drugs Certain medicines Many different medicines can affect your sleep, such as stimulants, caffeine, alcohol, some decongestants, and diet pills. Other medicines may include some types of blood pressure pills, steroids, asthma medicines, antihistamines, antidepressants, seizure medicines and statins. Not all of these will affect your sleep, and they shouldn t be stopped without talking to your doctor. Symptoms of insomnia can include: Lying awake for long periods at night before falling asleep Waking up several times during the night Waking up early in the morning and not being able to get back to sleep Feeling tired and not refreshed by sleep Not being able to function properly during the day and finding it hard to concentrate Irritability Tiredness and fatigue during the day Home care Review your medicines with your doctor or pharmacist to find out if they can cause insomnia. Not all medicines will affect your sleep, but they shouldn't be stopped without reviewing them with your doctor. There may be serious side effects and consequences from suddenly stopping your medicines. Nottaking them may cause strokes, heart attacks, and many other problems. Caffeine, smoking, and alcohol also affect sleep. Limit your daily use and don't use these before bedtime. Alcohol may make you sleepy at first, but as its effects wear off, you may awaken a few hours later and have trouble returning to sleep. Don't exercise, eat or drink large amounts of liquid within 2 hours of your bedtime. Improve your sleep habits. Have a fixed bed and wake-up time. Try to keep noise, light and heat in your bedroom at a comfortable level. Try using earplugs or eyeshades if needed. Don't watch TV in bed. If you don't fall asleep within 30 minutes, try to relax by reading or listening to soft music. Limit daytime napping to one 30 minute period, early in the day. Get regular exercise. Find other ways to lessen your stress level. If a medicine was prescribed to help reset your sleep patterns, take it as directed. Sleeping pillsare intended for short-term use, only. If taken for too long, the effect wears off while the risk of physical addiction and psychological dependence increases. Sleep diary If the cause isn t obvious and it is not improving, try keeping a sleep diary for a couple of weeks. Include in it: The time you go to bed How long it takes to fall asleep How many times you wake up What time you wake up Your meal times and what you eat What time you drink alcohol and caffeine Your exercise habits and times Follow-up care Follow up with your healthcare provider, or as advised. If an X-ray or CT scan was done, you will be notified if there is a change in the reading, especially if it affects treatment. Call 911 Call 911 if any of these occur: Trouble breathing Confusion or trouble waking Fainting or loss of consciousness Rapid heart rate New chest, arm, shoulder, neck or upper back pain Trouble with speech or vision, weakness of an arm or leg Trouble walking or talking, loss of balance, numbness or weakness in one side of your body, facial droop When to seek medical advice Call your healthcare provider right away if any of these occur: Extreme restlessness or irritability Confusion or hallucinations (seeing or hearing things that are not there) Anxiety, depression Several days without sleeping [id number] [employer] [place] [address]. All rights reserved. This information is not intended as a substitute for professional medical care. Always follow yourhealthcare professional's instructions. Additional Information VACCINATE! IT SAVES LIVES! Members of the community who have not yet received the COVID-19 vaccine and would like to receive it can visit one of [facility] vaccine clinics. There are many vaccine clinic locations within the [facility]. For locations and available times, please visit www.[email or web address].[place].gov/. It is important to note that some COVID mobile vaccine clinics are held outdoors and may be canceled in rainy or stormy conditions. To learn more about pediatric vaccinations (ages 5-11), we invite you to visit the [facility] webpage. [email or web address]/[email or web address] learn more about the COVID-19 vaccine, we invite you to visit the CDC website for a list of frequently asked questions. https://www.cdc.gov/coronavirus/2019-ncov/vaccines/faq.html [facility] Patient Portal Access Instructions: Stay connected with your healthcare team and access your personal medical information anytime with the [facility] Patient Portal. If you would like a full copy of your medical records please contact the [facility] Medical Records Department Monday through Monday between 8a.m. and 4:30p.m. Please follow the directions below to access the portal: 1.Access the email account you provided upon registration to the [facility].2.Look for an invitation email from [facility].3.Open the email and access the invitation link: Accept Invitation to [facility]4.Fill in the required mathew to create your account. Sign into www.[employer] with your username and password that you created in the above steps to stay up to date. You can then view a summary of results, a summary of your visits, and the ability to download your summaries to your computer or send the information securely to a physician. Remember that your healthcare information is confidential, so carefully consider who you will allow to register on the [facility] Patient Portal for access to your information. You can also access the [facility] Patient Portal on the [employer]. Simply click on Health Records under Wire and then click on the [facility] logo. HOW TO SAFELY DISPOSE OF PRESCRIPTION MEDICATIONS Please use one of the following methods to safely dispose of your unused medications. 1.Use a drug disposal kit: the drug disposal pouch allows you to safely discard your old and unuseddrugs. Ask your nurse to give you one when you are discharged.2.Visit a local take-back location: Many local pharmacies and police departments have programs that collect old and unwanted prescriptiondrugs. Call your local pharmacy or go to http://[employer]/9D6To0a to find one close to you.3.Make use of household items: Use cat litter or old coffee grounds to dispose medications if other options arenot available. Mix your drugs with these household products, seal them in an airtight container andthrow it into the garbage. Call [facility]: [phone] to be sure your drugs can be disposed of in this way. Some medicines may require a different approach.4.Never flush your medications down the toilet. IF YOU HAVE BEEN PRESCRIBED AN OPIOIDS FOR PAIN If you have been prescribed an opioid (such as hydrocodone, oxycodone or morphine), it is critical to understand the possible side effects and risks of opioid pain medications. Even when taken as directed, opioids can have several side effects including: Tolerance, meaning you might need to take more of a medication for the same pain relief. Nausea, vomiting and/or constipation. Sleepiness, dizziness, dry mouth, confusion, depression or itching. Physical dependence, meaning you have withdrawal symptoms when a medication is stopped ? this can develop within a few days. KNOW YOUR RESPONSIBILITIES It is important to know exactly how much and how often to take the opioid pain medications you are prescribed. Never take opioids in higher amounts or more often than prescribed. Do not combine opioids with alcohol or other drugs that cause drowsiness, such as benzodiazepines, also known as benzos,including diazepam and alprazolam, muscle relaxants or sleep aids. Never sell or share prescriptionopioids. This is illegal. Store opioids in a secure place and out of reach of others (including children, family, friends and visitors). The last page(s) of this document has been signed and retained as a CHART COPY Signatures Patient Education Materials Insomnia Medication Leaflets lorazepam (oral) My discharge plan and instructions have been reviewed and explained to me and I,SHEILA CROWE understand my current condition and have read and understand these discharge instructions. I have received a written copy of the plan/instructions. If I have questions, I am aware that I should contact my doctor. Patient/Front Desk Monitor Signature: Date/Time: Relationship to Patient: Witness Name/Signature: Date/Time: [facility]04-11-2024 Miscellaneous Notes* Telephone Encounter - Freeman Sarabia PA-C - 02/08/2024 3:24 PM EDT The following approved medication requests have been transmitted electronically. Requested Prescriptions Signed Prescriptions Disp Refills buprenorphine (BUTRANS) 20 mcg/hour transdermal patch 4 Patch 0 Sig: Apply 1 Patch as directed one time a week for 28 days. Do not start before February 15, 2024. Authorizing Provider: FREEMAN SARABIA cyclobenzaprine (FLEXERIL) 10 mg tablet 90 tablet 3 Sig: Take 1 tablet by mouth three times a day as needed for muscle spasm. Authorizing Provider: FREEMAN SARABIA PA-C * Telephone Encounter - Cass Frey RN - 02/08/2024 2:55 PM EDT Patient phones requesting refills as follows: Requested Prescriptions Pending Prescriptions Disp Refills buprenorphine (BUTRANS) 20 mcg/hour transdermal patch 4 Patch 0 Sig: Apply 1 Patch as directed one time a week for 28 days. cyclobenzaprine (FLEXERIL) 10 mg tablet 90 tablet 3 Sig: Take 1 tablet by mouth three times a day as needed for muscle spasm. Last UDS: Opioid agreement signed 11/10/23. Non opioid agreement signed 11/10/23. 12/22/23 - Bilateral subacromial bursas x 1 visit Summary Report Date Value Ref Range Status 03/03/2023 FINAL Final Comment: Gabapentin, MS, Ur RFX ToxAssure Flex 23, Ur Test Result Flag Units Drug Present and Declared for Prescription Verification Buprenorphine 8 EXPECTED ng/mg creat Norbuprenorphine 38 EXPECTED ng/mg creat Source of buprenorphine is a scheduled prescription medication. Norbuprenorphine is an expected metabolite of buprenorphine. Gabapentin PRESENT EXPECTED Drug Present not Declared for Prescription Verification Zolpidem Acid PRESENT UNEXPECTED Zolpidem acid is an expected metabolite of zolpidem. Test Result Flag Units Ref Range Creatinine 40 mg/dL >=20 Declared Medications: The flagging and interpretation on this report are based on the following declared medications. Unexpected results may arise from inaccuracies in the declared medications. Note: The testing scope of this panel includes these medications: Gabapentin Note: The testing scope of this panel does not include small to moderate amounts of these reported medications: Buprenorphine For clinical consultation, please call . No results found for: UQNOTE, OPIATEPNMGT, DRUGSCRPAIN Urine Panel: No results found for: UQCANN, UQBNZL, RRI6GTJ, UQAMPH, UQMAMP, UQBUPRE, UQNORBUP, UQMTHD, UQEDDP, UQTRAM, UQDTRM, UQFNTL, UQNFTL, UQCODE, UQMORP, UQDCDN, UQHCOD, UQOXYC, UQHMOR, UQOXYM, UQCREA, UQPH, UQSPGR, UQOXID, UQSPQ @FLOW([id number])@ Lab Results Component Value Date SUMM FINAL 03/03/2023 Summary Report (Summary) Date Value Ref Range Status 09/01/2022 FINAL Final Comment: TOXASSURE COMP DRUG ANALYSIS,UR Test Result Flag Units Drug Present and Declared for Prescription Verification Buprenorphine 16 EXPECTED ng/mg creat Norbuprenorphine 16 EXPECTED ng/mg creat Source of buprenorphine is a scheduled prescription medication. Norbuprenorphine is an expected metabolite of buprenorphine. Gabapentin PRESENT EXPECTED Drug Present not Declared for Prescription Verification Topiramate PRESENT UNEXPECTED Lamotrigine PRESENT UNEXPECTED Zolpidem Acid PRESENT UNEXPECTED Zolpidem acid is an expected metabolite of zolpidem. Trazodone PRESENT UNEXPECTED 1,3 chlorophenyl piperazine PRESENT UNEXPECTED 1,3-chlorophenyl piperazine is an expected metabolite of trazodone. Ziprasidone PRESENT UNEXPECTED Diphenhydramine PRESENT UNEXPECTED Benztropine PRESENT UNEXPECTED Test Result Flag Units Ref Range Creatinine 31 mg/dL >=20 Declared Medications: The flagging and interpretation on this report are based on the following declared medications. Unexpected results may arise from inaccuracies in the declared medications. Note: The testing scope of this panel includes these medications: Gabapentin Note: The testing scope of this panel does not include small to moderate amounts of these reported medications: Buprenorphine For clinical consultation, please call . Last Opioid agreement effective date: 11/10/2023 Please review and advise. Cass Frey RN [facility] Instructions* Patient Instructions* Min Velazco MD - 02/07/2024 1:24 PM EDT The patient will continue with Butrans patch, cyclobenzaprine, and meloxicam. She was encouraged to increase fluid and fiber intake and to take MiraLAX as needed for opioid-induced constipation. The patient will continue using her TENS unit. Patient will continue with yoga. She will keep herself physically active, stretch out, and exercise. Follow-up in office in 6 weeks time. documented in [facility] History of Present illness Narrative* Min Velazco MD - 02/07/2024 1:15 PM EDT This note was created using [employer]. Subjective Sheila Crowe is a 43 year old female. The patient primarily being seen for generalized pain Patient was last seen on: 12/22/23 At that time, the treatment plan was: see notes Current Meds: Butrans Patch - last applied 6 days ago, Meloxicam - yesterday, Flexeril - few days ago Efficacy: help Side effects: constipation - relieved with OTC meds TENS unit: yes How often used: 3-4 times weekly - uses on back Benefit: helps Physical Therapy: years ago Last UDS: 09/28/23 Last injection: 01/04/24 - Bilateral Subacromial Bursa injection - states 70% pain relief OARRS reviewed 01/29/2024 02/07/2024 INTAKE PAIN ASSESSMENT Are you having pain associated with your visit today? No Yes, Provider notified Pain Scales Verbal (Numeric Rating or Visual Analog Scale) Pain Level 3 Pain Location Generalized Description Aching;Dull;Sharp;Other: See comment Frequency Continuous Intervention/Comfort measure Medication HPI Patient is getting adequate relief from the present regimen and denies any side effect from it except for occasional constipation that is relieved by MiraLAX. This has improved the patient s level offunctionality and has been able to perform activities of daily living. The patient exhibits no aberrant behavior. The PDMP report and last UDS are both consistent with prescribed medications and are unremarkable. The patient has weaned herself off pregabalin and she did not notice any difference. Pain has been getting better lately. Review of Systems Constitutional: Negative for fever and unexpected weight change. Gastrointestinal: Positive for constipation. Musculoskeletal: +back pain, joint pain, muscle cramps/weakness, stiffness, arthritis, and leg pain with exertion. Objective BP 128/84 (BP Site: Left Arm, BP Position: Sitting, BP Cuff Size: Large Adult) Pulse 74 Temp 36.4 C (97.6 F) (Temporal) Resp 20 Ht 172.7 cm (5' 8) Wt 83 kg (183 lb) LMP 07/08/2020 (Approximate) SpO2 100% BMI 27.83 kg/m Physical Exam Vitals and nursing note reviewed. Constitutional: General: She is not in acute distress. Appearance: Normal appearance. She is well-developed, well-groomed and overweight. HENT: Head: Normocephalic and atraumatic. Right Ear: Hearing and external ear normal. Left Ear: Hearing and external ear normal. Nose: Nose normal. Eyes: General: No scleral icterus. Extraocular Movements: Extraocular movements intact. Conjunctiva/sclera: Conjunctivae normal. Comments: Wearing glasses Musculoskeletal: Comments: The patient walks with a normal gait. There is tenderness to palpation in the cervical and lumbar region with spasms noted in the trapezius and paraspinal muscles. She has tenderness noted over the right SI joint Strength is 5/5 throughout. Sensation is intact to light touch throughout. SLR is negative. She has tenderness to palpation in the knees bilaterally. There is tenderness noted over the bilateral subacromial bursas left greater than right. Skin: General: Skin is warm and dry. Neurological: Mental Status: She is alert and oriented to person, place, and time. Psychiatric: Attention and Perception: Attention and perception normal. Mood and Affect: Mood and affect normal. Speech: Speech normal. Behavior: Behavior normal. Behavior is cooperative. Thought Content: Thought content normal. Judgment: Judgment normal. Assessment and Plan ASSESSMENT/PLAN: 1. Chronic pain syndrome - ICD9: 338.4, ICD10: G89.4 (primary diagnosis) 2. Fibromyalgia - ICD9: 729.1, ICD10: M79.7 3. Primary osteoarthritis of both knees - ICD9: 715.16, ICD10: M17.0 4. Sacroiliitis (HCC) - ICD9: 720.2, ICD10: M46.1 5. Subacromial bursitis of both shoulders - ICD9: 726.19, ICD10: M75.51, M75.52 6. Generalized anxiety disorder - ICD9: 300.02, ICD10: F41.1 7. Neuropathy involving both lower extremities - ICD9: 356.9, ICD10: G57.93 PLAN: The patient will continue with Butrans patch, cyclobenzaprine, and meloxicam. She was encouraged to increase fluid and fiber intake and to take MiraLAX as needed for opioid-induced constipation. The patient will continue using her TENS unit. Patient will continue with yoga. She will keep herself physically active, stretch out, and exercise. Follow-up in office in 6 weeks time. 30 minutes spent for chronic pain management distinct from evaluation and management Two or more stable chronic illness and prescription medication management This document was transcribed using a voice recognition software and may contain minor errors. Min Velazco MD documented in this encounterMer[facility]04[facility] History of Present illness Narrative* Autumn Garcia RT(R) - 01/29/2024 3:20 PM EDT Radiology Service Progress Note PATIENT NAME: Sheila Crowe DATE OF SERVICE: January 29, 2024 TIME: 3:16 PM PATIENT IDENTITY VERIFICATION COMPLETED USING TWO (2) IDENTIFIERS: Name and Date of confirmedby patient verbally. FALL SCREENING: Has the patient had 2 falls in the last year or 1 fall with injury or currently using an Ambulatory Assistive Device (Walker, Cane, Wheelchair, Crutches, etc.)? No PATIENT GENDER DATA: Female. status: : No status: NO. PATIENT RELEVANT IMPLANT DATA REVIEWED: Yes PATIENT PRESENTS WITH AN IMPLANTABLE OR ATTACHED MANAGEMENT ASSOCIATE: No RADIOLOGY DEPARTMENT: General X-ray: Exam(s) Completed: Abdomen X-Ray: Abdomen PERIPHERAL IV DATA: Not applicable SIGNED BY: RT Janice(R) January 29, 2024 3:16 PM documented in this encounter[facility] History of Present illness Narrative* Torres Yao MD - 01/29/2024 2:17 PM EDT Patient presents with: Rectal Problem: Blood in stool X 1 week. 3 episodes HPI: Patient presents today for office visit for blood in stool. Hx of constipation issues. Has been taking colon clenz with fiber and herbs. States she has been taking this for years. Always with some abdominal discomfort and is gassy. Notes that over the last couple weeks she hasn't felt well. Her stomach has been bothering her. Loss of appetite. Has lost a couple pounds. Last week noticed blood in her stool about 2 tablespoons in 3 of her BM's. Blood was mixed in stool and on toilet paper when she wiped. Blood was bright red. One episode happened this morning. No black stools. No clots in the commode. Is mildly nauseated. No vomiting. No rectal pain. Has a hx of polypectomy with her polyps. Some nausea Denies vomiting Sometimes has diarrhea. States if she hasn't had a BM in a couple days she'll take more of the Colon Clenz which will cause diarrhea. Denies rectum pain. Denies hemorrhoids. Mentions she checks her BP at home occ. Had occasional low readings. Lowest was 80/50 a few weeks ago. states she felt dizzy when this happened. States her Spironolactone was increased by her Founder / Ceo and was told this could happen. Has not happened recently. Denies chest pain and shortness of breath. No syncope. No tachycardia. Bp is usually 90's systolic No bleeding or bruising elsewhere. MEDICATIONS: Current Outpatient Medications Medication Sig buprenorphine (BUTRANS) 20 mcg/hour transdermal patch Apply 1 Patch as directed one time a week for28 days. Do not start before January 18, 2024. cyclobenzaprine (FLEXERIL) 10 mg tablet Take 1 tablet by mouth three times a day as needed for muscle spasm. meloxicam (MOBIC) 15 mg tablet Take 0.5-1 tablets by mouth once daily as needed for pain. diclofenac sodium-menthol (DITHOL) 1.5-10 % combo pack Apply to affected area. ketoconazole (NIZORAL) 2 % shampoo [id number] carb-vit K (WOMEN'S MULTIVITAMIN) 18 mg-400 mcg- 500 mg-50 mcg tab Women's Multivitamin 18 mg-400 mcg- 500 mg-50 mcg tablet spironolactone (ALDACTONE) 25 mg tablet Take 25 mg by mouth three times a day. zolpidem (AMBIEN) 10 mg Take 10 mg by mouth daily at bedtime. ziprasidone (GEODON) 20 mg capsule Take 20 mg by mouth three times daily. ziprasidone (GEODON) 60 mg capsule Take 60 mg by mouth once daily. topiramate (TOPAMAX) 100 mg tablet Take 100 mg by mouth once daily. topiramate (TOPAMAX) 200 mg tablet Take 400 mg by mouth once daily. valbenazine (INGREZZA) 80 mg capsule Take 80 mg by mouth once daily. benztropine (COGENTIN) 2 mg tablet Take 2 mg by mouth four times daily. losartan (COZAAR) 25 mg tablet Take 25 mg by mouth twice daily. DAILY MULTI-VITAMIN ORAL Take 1 tablet by mouth once daily. lamoTRIgine (LAMICTAL) 200 mg tablet Take 400 mg by mouth once daily. pregabalin (LYRICA) 75 mg capsule Take 1 capsule by mouth three times a day for 120 days. (Patient not taking: Reported on 12/22/2023) traZODone (DESYREL) 100 mg tablet Take 1 tablet by mouth daily at bedtime. (Patient not taking: Reported on 01/29/2024) No current facility-administered medications for this visit. ALLERGIES: ALLERGIES Allergen Reactions Clindamycin Diarrhea Hives, cramping Levaquin [Levofloxa* Swelling Penicillins Rash Sulfa (Sulfonamide * Unknown Zithromax [Azithrom* Itching PAST MEDICAL HISTORY Diagnosis Date Allergic rhinitis due to other allergen Bipolar I disorder, most recent episode (or current) unspecified hosp 04 mutile suicide attempts/Dr. Jenkins Hypercalcemia Migraine without aura Morbid obesity (HCC) stated BMI HT: 68 WT: 375 Myalgia and myositis, unspecified Other specified cardiac dysrhythmias(427.89) PMH - PAST MEDICAL HISTORY OF MONO Unspecified essential hypertension PAST SURGICAL HISTORY Procedure Laterality Date ADENOIDECTOMY PRIMARY <AGE 11 1994 Adenoidectomy COLONOSCOPY W/BIOPSY SINGLE/MULTIPLE 12/23/2019 EXTRACTION, ERUPTED TOOTH OR EXPOSED ROOT (ELEVATION AND/OR FORCEPS REMOVAL) 1995 [place] teeth TONSILLECTOMY PRIMARY/SECONDARY <AGE 11 1994 Tonsillectomy FAMILY HISTORY Problem Relation Age of Onset Rheumatologic disease Mother other (stiff persons disease) Father other (autoimmune disorder) Father Diabetes Brother Type 1, age 40 Diabetes Maternal Grandmother Diabetes Paternal Grandmother Heart Paternal Grandmother Social History Tobacco Use Smoking status: Former Packs/day: .5 Types: Cigarettes Quit date: 06/16/2008 Years since quittin.6 Smokeless tobacco: Never Vaping Use Vaping Use: Never used Substance Use Topics Alcohol use: No Drug use: No Reviewed current medications, allergies, past medical history, surgical history, family history andsocial history today. REVIEW OF SYSTEMS All other reviewed and negative other than HPI. VITALS: BP 99/68 Pulse 85 Ht 172.7 cm (5' 8) Wt 83 kg (183 lb) LMP 07/08/2020 (Approximate) BMI 27.83 kg/m Last 4 Encounter Wt Readings: Date: Wt: 10/13/2023 84.4 kg (186 lb) 09/28/2023 85.3 kg (188 lb) 04/14/2023 85.3 kg (188 lb) 04/12/2023 85.5 kg (188 lb 6.4 oz) PHYSICAL EXAMINATION: General appearance: Well appearing, alert, in no acute distress, well-hydrated, well nourished. Skin: Skin color, texture, turgor normal, no suspicious rashes or lesions, no excess pallo Lungs: Lungs clear to auscultation. No wheezing, rhonchi, rales Heart: RRR without murmur, gallop, or rubs. No ectopy Abdomen: bowel sounds positive. No rebound. Mild diffuse tenderness. No rebound or guarding. Chaperoned by LABOR CUSTODIAN. Rectal shows no fissures or hemorrhoids. No stool in vault. No masses. Mucous isheme negative. ASSESSMENT/PLAN: 1. Rectal bleeding - ICD9: 569.3, ICD10: K62.5 (primary diagnosis) - heme negative this afternoon. Red flags for re-assessment reviewed with patient in detail. - CBC + DIFF - COMP METABOLIC PANEL - CONSULT TO GENERAL SURGERY - HEMOCUE B/O 2. Chronic constipation - ICD9: 564.00, ICD10: K59.09 - KUB Add miralax daily. - CONSULT TO GENERAL SURGERY 3. Abd discomfort. Mild discomfort. Nonsurgical abdomen. Red flags for re-assessment reviewed with patient in detail. Check labs, kub and see surgery. Appears stable today, if worsens, to ER documented in this encounterMer[facility]03-18-[facility]24 Miscellaneous Notes* Telephone Encounter - Hilda Carvalho RN - 01/15/2024 12:54 PM EDT Patient phones requesting refills as follows: Requested Prescriptions Pending Prescriptions Disp Refills buprenorphine (BUTRANS) 20 mcg/hour transdermal patch 4 Patch 0 Sig: Apply 1 Patch as directed one time a week for 28 days. Last UDS: Opioid agreement signed 11/10/23. Non opioid agreement signed 11/10/23. 12/22/23 - Bilateral subacromial bursas x 1 visit Summary Report Date Value Ref Range Status 03/03/2023 FINAL Final Comment: Gabapentin, MS, Ur RFX ToxAssure Flex 23, Ur Test Result Flag Units Drug Present and Declared for Prescription Verification Buprenorphine 8 EXPECTED ng/mg creat Norbuprenorphine 38 EXPECTED ng/mg creat Source of buprenorphine is a scheduled prescription medication. Norbuprenorphine is an expected metabolite of buprenorphine. Gabapentin PRESENT EXPECTED Drug Present not Declared for Prescription Verification Zolpidem Acid PRESENT UNEXPECTED Zolpidem acid is an expected metabolite of zolpidem. Test Result Flag Units Ref Range Creatinine 40 mg/dL >=20 Declared Medications: The flagging and interpretation on this report are based on the following declared medications. Unexpected results may arise from inaccuracies in the declared medications. Note: The testing scope of this panel includes these medications: Gabapentin Note: The testing scope of this panel does not include small to moderate amounts of these reported medications: Buprenorphine For clinical consultation, please call . No results found for: UQNOTE, OPIATEPNMGT, DRUGSCRPAIN Urine Panel: No results found for: UQCANN, UQBNZL, FBK7BIR, UQAMPH, UQMAMP, UQBUPRE, UQNORBUP, UQMTHD, UQEDDP, UQTRAM, UQDTRM, UQFNTL, UQNFTL, UQCODE, UQMORP, UQDCDN, UQHCOD, UQOXYC, UQHMOR, UQOXYM, UQCREA, UQPH, UQSPGR, UQOXID, UQSPQ @FLOW([id number])@ Lab Results Component Value Date SUMM FINAL 03/03/2023 Summary Report (Summary) Date Value Ref Range Status 09/01/2022 FINAL Final Comment: TOXASSURE COMP DRUG ANALYSIS,UR Test Result Flag Units Drug Present and Declared for Prescription Verification Buprenorphine 16 EXPECTED ng/mg creat Norbuprenorphine 16 EXPECTED ng/mg creat Source of buprenorphine is a scheduled prescription medication. Norbuprenorphine is an expected metabolite of buprenorphine. Gabapentin PRESENT EXPECTED Drug Present not Declared for Prescription Verification Topiramate PRESENT UNEXPECTED Lamotrigine PRESENT UNEXPECTED Zolpidem Acid PRESENT UNEXPECTED Zolpidem acid is an expected metabolite of zolpidem. Trazodone PRESENT UNEXPECTED 1,3 chlorophenyl piperazine PRESENT UNEXPECTED 1,3-chlorophenyl piperazine is an expected metabolite of trazodone. Ziprasidone PRESENT UNEXPECTED Diphenhydramine PRESENT UNEXPECTED Benztropine PRESENT UNEXPECTED Test Result Flag Units Ref Range Creatinine 31 mg/dL >=20 Declared Medications: The flagging and interpretation on this report are based on the following declared medications. Unexpected results may arise from inaccuracies in the declared medications. Note: The testing scope of this panel includes these medications: Gabapentin Note: The testing scope of this panel does not include small to moderate amounts of these reported medications: Buprenorphine For clinical consultation, please call . Last Opioid agreement effective date: 11/10/2023 Please review and advise. Hilda Carvalho RN documented in this encounterMer[facility]03-07-[facility]24 Hospital Discharge instructions* Discharge Instr - Other Orders* Min Velazco MD - 01/04/2024 2:44 PM EST Post-procedure instructions: 1. Rest today. You may feel drowsy the rest of the day. Avoid excessive bending, walking, and lifting. Resume your normal activities tomorrow. 2. Remove Band-Aid tomorrow. 3. Resume your current medications. If you are on any blood thinners or any other medications you were told to stop before your procedure, you may continue those tomorrow. 4. If you received oral sedation, no driving or alcohol for 24 hours. 5. You may shower, but no tub baths for 24 hours. 6. If you are diabetic, check your sugar for the next 5 days as the steroid may elevate you sugar. Call your medical doctor if you sugar is elevated. Before your next injection: (also refer to your pre-procedure checklist given to you when you scheduled your first injection) 1. Stop all blood thinners as you were directed. If you are unsure, please call our office for clarification. 2. If you were prescribed Valium prior to the procedure or if you are to receive oral sedation, youmay eat as you normally would, but you do need a van driver helper. Additional Instructions: documented in this encounterMer[facility]03-07-2024 Surgical operation note* Operative Report - Min Velazco MD - 01/04/2024 2:40 PM EST Summary: bilateral subacromial bursae injection Subacromial Bursa Injection PROCEDURE: Bilateral subacromial bursae injection CPT code: 11091-61 PREPROCEDURE DIAGNOSIS: subacromial bursitis POSTPROCEDURE DIAGNOSIS: same ANESTHESIA: none PROCEDURE REPORT: The risks and benefits of the procedure were explained to the patient and all questions were answered. The patient gave consent to proceed with the procedure. The skin was sterilely prepped. A 25G 38mm needle was advanced to the point of greatest tenderness around the right subacromial/subdeltoid bursa. 40 mg of Depo-Medrol diluted to a total volume of 5 mL with bupivacaine 0.25% was then injected. The needle was withdrawn intact. A similar procedure was performed on the left side. The patient tolerated the procedure well with no complications noted. SIGNATURE: Min Velazco MD PATIENT NAME: Sheila Crowe DATE: January 04, 2024 TIME: 2:44 PM documented in this encounterMer[facility]02-23-2024 Instructions* Patient Instructions* Freeman Sarabia PA-C - 12/22/2023 1:10 PM EST The OAR[place] report has been reviewed and is consistent with the patients medical history and medication intake. The patient's most recent drug screen was not available for review at today's visit. We have calledfor the results and they will be faxed to us so we can discuss them at the next FU. Continue with the Butrans patches, cyclobenzaprine, pregabalin, meloxicam, and diclofenac gel. If you want to try decreasing the pregabalin you can try decreasing it by one pill every week or two as tolerated and if you don't notice any changes in your pain levels stop using it. Continue using TENS unit. Continue doing your yoga and strengthening exercises, but make sure you give your body a chance to rest. FU in the office in 6 weeks. Schedule bilateral subacromial bursa injections x 1 visit Continue to FU with the net developer architect for the neuropathy. Continue with the kinesiology tape/roller ball on the feet. You can use CBD oil, just avoid THC, and delta 8 and delta 9. I will discuss the patient with Dr. Velazco when he returns to the office. All of the above is to improve functionality and quality of life. No evidence of drug abuse or diversion is seen at this time. Procedure to be done: Joint Injection - Bilateral subacromial bursa injections x 1 visit A van driver helper is required: No Oral Sedation is requested : No If you are receiving oral sedation, you may eat a light meal. Clothing to wear: Back injections - elastic waist/jogging pants Neck injections - wide neck or button down shirt; please do not wear neck jewelry Plan to take it easy the rest of the day following your procedure. You may resume normal [id number] hours following your procedure or as otherwise instructed. Special Instructions - NONE documented in this encounterMer[facility]02-23-2024 History of Present illness Narrative* Freeman Sarabia PA-C - 12/22/2023 12:59 PM EST This note was created using [email or web address] Subjective Sheila Crowe is a 43 year old female. The patient primarily being seen for generalized pain Patient was last seen on: 11/10/23 At that time, the treatment plan was: see notes Current Meds: Butrans Patch Wed./ Meloxicam yest./ Flexeril last pm Efficacy: helpful Side effects: denies TENS unit: yes How often used: 4x/week Benefit: helpful Physical Therapy: Last UDS: 09/28/23 Last injection: 08/29/23-b/l subacromial bursa OARRS reviewed At the present time, the patient reports benefit with her present analgesic therapy. She denies anyadverse effects. Since her previous visit, she denies any hospitalizations or ER visits. She saw the neurologist for her neuropathy who had no other suggestions for her at this time. She will FU withthem again in 6 months for another EMG/NCV. INTAKE PAIN ASSESSMENT 11/10/2023 12/22/2023 Are you having pain associated with your visit today? Yes, Provider notified Yes, Provider notified Pain Scales Verbal (Numeric Rating or Visual Analog Scale) Verbal (Numeric Rating or Visual Analog Scale) Pain Level 4 4 Pain Location Generalized Generalized Description Burning;Aching;Sharp Burning;Sharp Duration Amount of Time - - Duration Units - - Frequency Continuous Continuous Intervention/Comfort measure Medication;Relaxation;Cold;Other: See comment Medication;Relaxation;Exercise;Other: See comment Comments relief with injections relief with injections Pain Assessment - - HPI PAST MEDICAL HISTORY Diagnosis Date Allergic rhinitis due to other allergen Bipolar I disorder, most recent episode (or current) unspecified hosp 04 mutile suicide attempts/Dr. Jenkins Hypercalcemia Migraine without aura Morbid obesity (HCC) stated BMI HT: 68 WT: 375 Myalgia and myositis, unspecified Other specified cardiac dysrhythmias(427.89) PMH - PAST MEDICAL HISTORY OF MONO Unspecified essential hypertension PAST SURGICAL HISTORY Procedure Laterality Date ADENOIDECTOMY PRIMARY <AGE 12 1994 Adenoidectomy COLONOSCOPY W/BIOPSY SINGLE/MULTIPLE 12/23/2019 EXTRACTION, ERUPTED TOOTH OR EXPOSED ROOT (ELEVATION AND/OR FORCEPS REMOVAL) 1995 [place] teeth TONSILLECTOMY PRIMARY/SECONDARY <AGE 11 1994 Tonsillectomy Social History Tobacco Use Smoking status: Former Packs/day: .5 Types: Cigarettes Quit date: 06/16/2008 Years since quittin.5 Smokeless tobacco: Never Vaping Use Vaping Use: Never used Substance Use Topics Alcohol use: No Drug use: No Review of Systems Constitutional: Negative for fever and unexpected weight change. Musculoskeletal: +back pain, joint pain, muscle cramps/weakness, stiffness, arthritis, and leg pain with exertion. Objective BP 121/77 (BP Site: Left Arm, BP Position: Sitting, BP Cuff Size: Regular Adult) Pulse 70 Temp 36.6 C (97.8 F) (Temporal) Resp 18 LMP 07/08/2020 (Approximate) SpO2 100% Physical Exam Assessment and Plan ASSESSMENT/PLAN: 1. Fibromyalgia - ICD9: 729.1, ICD10: M79.7 (primary diagnosis) The OARRS report has been reviewed and is consistent with the patients medical history and medication intake. The patient's most recent drug screen was not available for review at today's visit. We have calledfor the results and they will be faxed to us so we can discuss them at the next FU. Continue with the Butrans patches, cyclobenzaprine, pregabalin, meloxicam, and diclofenac gel. If you want to try decreasing the pregabalin you can try decreasing it by one pill every week or two as tolerated and if you don't notice any changes in your pain levels stop using it. Continue using TENS unit. Continue doing your yoga and strengthening exercises, but make sure you give your body a chance to rest. FU in the office in 6 weeks. Schedule bilateral subacromial bursa injections x 1 visit Continue to FU with the net developer architect for the neuropathy. Continue with the kinesiology tape/roller ball on the feet. You can use CBD oil, just avoid THC, and delta 8 and delta 9. 2. Primary osteoarthritis of both knees - ICD9: 715.16, ICD10: M17.0 3. Sacroiliitis (HCC) - ICD9: 720.2, ICD10: M46.1 4. Subacromial bursitis of both shoulders - ICD9: 726.19, ICD10: M75.51, M75.52 - SURGICAL REQUEST - ELECTIVE (05/2020) 5. Generalized anxiety disorder - ICD9: 300.02, ICD10: F41.1 6. Neuropathy involving both lower extremities - ICD9: 356.9, ICD10: G57.93 Freeman Sarabia PA-C documented in this encounterMercy Health [facility]02-16-2024 Miscellaneous Notes* Telephone Encounter - Freeman Sarabia PA-C - 12/15/2023 10:43 AM EST The following approved medication requests have been transmitted electronically. Requested Prescriptions Signed Prescriptions Disp Refills buprenorphine (BUTRANS) 20 mcg/hour transdermal patch 4 Patch 0 Sig: Apply 1 Patch as directed one time a week for 28 days. Do not start before December 19, 2023. Authorizing Provider: FREEMAN SARABIA PA-C * Telephone Encounter - Hilda Carvalho RN - 12/15/2023 10:30 AM EST Patient phones requesting refills as follows: Requested Prescriptions Pending Prescriptions Disp Refills buprenorphine (BUTRANS) 20 mcg/hour transdermal patch 4 Patch 0 Sig: Apply 1 Patch as directed one time a week for 28 days. Last UDS: Opioid agreement signed 11/10/23. Non opioid agreement signed 11/10/23. Summary Report Date Value Ref Range Status 03/03/2023 FINAL Final Comment: Gabapentin, MS, Ur RFX ToxAssure Flex 23, Ur Test Result Flag Units Drug Present and Declared for Prescription Verification Buprenorphine 8 EXPECTED ng/mg creat Norbuprenorphine 38 EXPECTED ng/mg creat Source of buprenorphine is a scheduled prescription medication. Norbuprenorphine is an expected metabolite of buprenorphine. Gabapentin PRESENT EXPECTED Drug Present not Declared for Prescription Verification Zolpidem Acid PRESENT UNEXPECTED Zolpidem acid is an expected metabolite of zolpidem. Test Result Flag Units Ref Range Creatinine 40 mg/dL >=20 Declared Medications: The flagging and interpretation on this report are based on the following declared medications. Unexpected results may arise from inaccuracies in the declared medications. Note: The testing scope of this panel includes these medications: Gabapentin Note: The testing scope of this panel does not include small to moderate amounts of these reported medications: Buprenorphine For clinical consultation, please call . No results found for: UQNOTE, OPIATEPNMGT, DRUGSCRPAIN Urine Panel: No results found for: UQCANN, UQBNZL, MLO5JBE, UQAMPH, UQMAMP, UQBUPRE, UQNORBUP, UQMTHD, UQEDDP, UQTRAM, UQDTRM, UQFNTL, UQNFTL, UQCODE, UQMORP, UQDCDN, UQHCOD, UQOXYC, UQHMOR, UQOXYM, UQCREA, UQPH, UQSPGR, UQOXID, UQSPQ @FLOW([id number])@ Lab Results Component Value Date SUMM FINAL 03/03/2023 Summary Report (Summary) Date Value Ref Range Status 09/01/2022 FINAL Final Comment: TOXASSURE COMP DRUG ANALYSIS,UR Test Result Flag Units Drug Present and Declared for Prescription Verification Buprenorphine 16 EXPECTED ng/mg creat Norbuprenorphine 16 EXPECTED ng/mg creat Source of buprenorphine is a scheduled prescription medication. Norbuprenorphine is an expected metabolite of buprenorphine. Gabapentin PRESENT EXPECTED Drug Present not Declared for Prescription Verification Topiramate PRESENT UNEXPECTED Lamotrigine PRESENT UNEXPECTED Zolpidem Acid PRESENT UNEXPECTED Zolpidem acid is an expected metabolite of zolpidem. Trazodone PRESENT UNEXPECTED 1,3 chlorophenyl piperazine PRESENT UNEXPECTED 1,3-chlorophenyl piperazine is an expected metabolite of trazodone. Ziprasidone PRESENT UNEXPECTED Diphenhydramine PRESENT UNEXPECTED Benztropine PRESENT UNEXPECTED Test Result Flag Units Ref Range Creatinine 31 mg/dL >=20 Declared Medications: The flagging and interpretation on this report are based on the following declared medications. Unexpected results may arise from inaccuracies in the declared medications. Note: The testing scope of this panel includes these medications: Gabapentin Note: The testing scope of this panel does not include small to moderate amounts of these reported medications: Buprenorphine For clinical consultation, please call . Last Opioid agreement effective date: 11/10/2023 Please review and advise. Hilda Carvalho RN documented in this encounterMercy Health [facility]02-13-2024 Miscellaneous Notes* Letter - Coordinator, Mammography - 12/12/2023 1:40 PM EST December 13, 2023 PID: [id number] Sheila Crowe [address] [place] [address] Dear Ms. Crowe, We are pleased to inform you that the results of your recent breast imaging exam on 12/11/2023 are normal. Early detection of cancer is very important. We also understand recommendations regarding breast cancer screening are controversial. Please discuss with your primary care provider which strategy is best for you and whether a mammogram is right for you. Your imaging studies and report will be [facility] as part of [facility] permanent medical record and are available for your continuing care. Thank you for allowing us to help in meeting your health care needs. Sincerely, Dr. Sanches Interpreting Radiologist [facility] (Normal over 40) documented in this encounterMercy Health [facility]iff[facility]02-06-2024 Evaluation + Plan note Diagnostic Tests Pending * JONATHAN (serum) 2/24 * Methylmalonic Acid, Serum 2/624 * QUIRINO Panel /04/22 * Vitamin B6, Plasma 12/05/23 * Vitamin B1 (Thiamine), Blood 12/05/23 * Rheumatoid Factor 12/05/23 [facility] 12[facility] History of Present illness Narrative* Torres Yao MD - 10/13/2023 1:53 PM EST Patient presents with: 6 Month Exam HPI: Patient presents today for office visit for follow up. Neuropathy in bilateral feet and legs. Had EMG with podiatry 07/17/23 Dr Vee but hasn't been given results yet. Previously saw [facility] for neurology but wondering about seeing neurology again? EMG showed peripheral neuropathy on check. ? Congenital based on findings. Has seen neurology in the past for headaches and balance issues. Lately has been having a lot of sneezing and waking up with a sore throat. Sore throat goes away asthe day goes on. Does have some congestion in head also. Hasn't not tried anything for this. Deniesany cough or fever. Believes allergy related. Discussed claritin or alla. Has also been seeing pain management. Some fatigue. Bp is well controlled. No shortness of breath. No chest pain. No edema. Still seeing cardiology and psych. Not checking sugars. Not following the diet as closely recently. MEDICATIONS: Current Outpatient Medications Medication Sig pregabalin (LYRICA) 75 mg capsule Take 1 capsule by mouth three times a day for 120 days. buprenorphine (BUTRANS) 20 mcg/hour transdermal patch Apply 1 Patch as directed one time a week for28 days. Apply one patch to fatty area for 7 days. Do not start until 12 hours after last belbuca taken. cyclobenzaprine (FLEXERIL) 10 mg tablet Take 1 tablet by mouth three times a day as needed for muscle spasm. meloxicam (MOBIC) 15 mg tablet Take 0.5-1 tablets by mouth once daily as needed for pain. diclofenac sodium-menthol (DITHOL) 1.5-10 % combo pack Apply to affected area. ketoconazole (NIZORAL) 2 % shampoo [id number] carb-vit K (WOMEN'S MULTIVITAMIN) 18 mg-400 mcg- 500 mg-50 mcg tab Women's Multivitamin 18 mg-400 mcg- 500 mg-50 mcg tablet spironolactone (ALDACTONE) 25 mg tablet Take 25 mg by mouth twice daily. zolpidem (AMBIEN) 10 mg Take 10 mg by mouth daily at bedtime. ziprasidone (GEODON) 20 mg capsule Take 20 mg by mouth three times daily. ziprasidone (GEODON) 60 mg capsule Take 60 mg by mouth once daily. traZODone (DESYREL) 100 mg tablet Take 1 tablet by mouth daily at bedtime. topiramate (TOPAMAX) 100 mg tablet Take 100 mg by mouth once daily. topiramate (TOPAMAX) 200 mg tablet Take 400 mg by mouth once daily. valbenazine (INGREZZA) 80 mg capsule Take 80 mg by mouth once daily. benztropine (COGENTIN) 2 mg tablet Take 2 mg by mouth four times daily. losartan (COZAAR) 25 mg tablet Take 25 mg by mouth twice daily. DAILY MULTI-VITAMIN ORAL Take 1 tablet by mouth once daily. lamoTRIgine (LAMICTAL) 200 mg tablet Take 400 mg by mouth once daily. No current facility-administered medications for this visit. ALLERGIES: ALLERGIES Allergen Reactions Clindamycin Diarrhea Hives, cramping Levaquin [Levofloxa* Swelling Penicillins Rash Sulfa (Sulfonamide * Unknown Zithromax [Azithrom* Itching PAST MEDICAL HISTORY Diagnosis Date Allergic rhinitis due to other allergen Bipolar I disorder, most recent episode (or current) unspecified hosp 04 mutile suicide attempts/Dr. Jenkins Hypercalcemia Migraine without aura Morbid obesity (HCC) stated BMI HT: 68 WT: 375 Myalgia and myositis, unspecified Other specified cardiac dysrhythmias(427.89) PMH - PAST MEDICAL HISTORY OF MONO Unspecified essential hypertension PAST SURGICAL HISTORY Procedure Laterality Date ADENOIDECTOMY PRIMARY <AGE 12 1994 Adenoidectomy COLONOSCOPY W/BIOPSY SINGLE/MULTIPLE 12/23/2019 EXTRACTION, ERUPTED TOOTH OR EXPOSED ROOT (ELEVATION AND/OR FORCEPS REMOVAL) 1995 [place] teeth TONSILLECTOMY PRIMARY/SECONDARY <AGE 11 1994 Tonsillectomy FAMILY HISTORY Problem Relation Age of Onset Rheumatologic disease Mother other (stiff persons disease) Father other (autoimmune disorder) Father Diabetes Brother Type 1, age 40 Diabetes Maternal Grandmother Diabetes Paternal Grandmother Heart Paternal Grandmother Social History Tobacco Use Smoking status: Former Packs/day: .5 Types: Cigarettes Quit date: 06/16/2008 Years since quittin.3 Smokeless tobacco: Never Vaping Use Vaping Use: Never used Substance Use Topics Alcohol use: No Drug use: No Reviewed current medications, allergies, past medical history, surgical history, family history andsocial history today. REVIEW OF SYSTEMS Requests arthritis testing as well. All other reviewed and negative other than HPI. HEALTH MAINTENANCE: Reviewed health maintenance issues today and recommended the following in detail. Influenza Vaccine(1) due on 06/30/2023 Covid-19 Vaccine( season) due on 06/30/2023 Pap Testing due on 07/27/2023 Mammogram Screening due on 12/08/2023 VITALS: BP 102/72 Pulse 71 Wt 84.4 kg (186 lb) LMP 07/08/2020 (Approximate) SpO2 100% BMI 28.28 kg/m Last 4 Encounter Wt Readings: Date: Wt: 09/28/2023 85.3 kg (188 lb) 04/14/2023 85.3 kg (188 lb) 04/12/2023 85.5 kg (188 lb 6.4 oz) 11/30/2022 88.9 kg (196 lb) PHYSICAL EXAMINATION: General appearance: Well appearing, alert, in no acute distress, well-hydrated, well nourished. Skin: Skin color, texture, turgor normal, no suspicious rashes or lesions Head: Normocephalic, no masses, lesions, tenderness or abnormalities Lungs: Lungs clear to auscultation. No wheezing, rhonchi, rales Heart: RRR without murmur, gallop, or rubs. No ectopy Abdomen: Normal abdominal exam, Abdomen soft, non-tender. Bowel sounds normal. No masses, organomegaly Extremities: No deformities, edema, skin discoloration, clubbing or cyanosis. Good capillary refill. Musculoskeletal: No joint swelling, deformity, or tenderness Peripheral pulses: Normal ASSESSMENT/PLAN: 1. Fibromyalgia - ICD9: 729.1, ICD10: M79.7 (primary diagnosis) - stable. 2. Essential hypertension, benign - ICD9: 401.1, ICD10: I10 - Controlled - Continue current medications 3. Sleep apnea, unspecified type - ICD9: 780.57, ICD10: G47.30 - off cpap 4. Generalized anxiety disorder - ICD9: 300.02, ICD10: F41.1 - stable. 5. Other polyneuropathy - ICD9: 357.89, ICD10: G62.89 - see neurology. Check labs. - CBC + DIFF - COMP METABOLIC PANEL - VITAMIN B12 BLOOD - FOLATE SERUM - HGB A1C - TSH BLD - PROTEIN ELECTROPHORESIS SERUM W/INTERP - CONSULT TO NEUROLOGY 6. Bipolar I disorder (HCC) - ICD9: 296.7, ICD10: F31.9 - per psych. 7. Migraine without aura and without status migrainosus, not intractable - ICD9: 346.10, ICD10: G43.009 - CONSULT TO NEUROLOGY 8. Chronic pain syndrome - ICD9: 338.4, ICD10: G89.4 9. History of diabetes mellitus - ICD9: V12.29, ICD10: Z86.39 - HGB A1C 10. Fatigue, unspecified type - ICD9: 780.79, ICD10: R53.83 - TSH BLD 11. Encounter for screening mammogram for malignant neoplasm of breast - ICD9: V76.12, ICD10: Z12.31 - Follow up for annual exam in one year. - [facility] S[facility] Torres Yao MD documented in this encounterMer[facility]12[facility] Miscellaneous Notes* Telephone Encounter - Freeman Sarabia PA-C - 10/09/2023 2:27 PM EST The following approved medication requests have been transmitted electronically. Requested Prescriptions Pending Prescriptions Disp Refills pregabalin (LYRICA) 75 mg capsule 90 capsule 3 Sig: Take 1 capsule by mouth three times a day for 120 days. Freeman Sarabia PA-C * Telephone Encounter - Kristla Luo RN - 10/09/2023 1:19 PM EST Patient phones requesting refills as follows: Requested Prescriptions Pending Prescriptions Disp Refills pregabalin (LYRICA) 75 mg capsule 90 capsule 3 Sig: Take 1 capsule by mouth three times a day for 120 days. Please review and advise. Kristal Luo RN documented in this encounterMercy Health [facility]11-30-2023 Instructions* Patient Instructions* Freeman Sarabia PA-C - 09/28/2023 2:16 PM EST The OARRS report has been reviewed and is consistent with the patients medical history and medication intake. The patient underwent a random drug screen at today's office visit. Continue with cyclobenzaprine, pregabalin, meloxicam, and diclofenac gel. Increase the pregabalin to 75 mg three times a day to help cover the pain from not having the belbuca. We will send in a script for a butrans patch under her new insurance once this kicks in. Continue using TENS unit. Continue doing your yoga and strengthening exercises, but make sure you give your body a chance to rest. FU in the office in 6 weeks Continue to FU with the net developer architect for the neuropathy. Continue with the kinesiology tape/roller ball on the feet. You can use CBD oil, just avoid THC, and delta 8 and delta 9. I discussed the patient with Dr. Velazco who agrees with my assessment and plan. All of the above is to improve functionality and quality of life. No evidence of drug abuse or diversion is seen at this time. documented in this encounterMercy [facility]11-30-2023 History of Present illness Narrative* Freeman Sarabia PA-C - 09/28/2023 2:00 PM EST This note was created using [email or web address] Subjective Sheila Crowe is a 42 year old female. The patient primarily being seen for generalized pain Patient was last seen on: 08/25/23 At that time, the treatment plan was: see notes Current Meds:Belbuca last dose this am,Lyrica last dose this am,Meloxicam last dose yesterday,Flexeril last dose couple days ago Efficacy:meds help pain, insurance will not pay for belbuca new insurance will Butrans not sure when starts Side effects: none TENS unit: yes How often used:4 x week Benefit: helps Physical Therapy: Last UDS: 09/28/23 Last injection: 08/29/23 Bilateral subacromial bursa injections helped OARRS reviewed yes At the present time, the patient reports benefit with her present analgesic therapy. She denies anyadverse effects. Her insurance is no longer covering the belbuca. She has been taking this once a day for the last few days to help wean off. Since her previous visit, she denies any hospitalizationsor ER visits. She states that the bilateral subacromial bursa injections helped relieve 80% of her pain and allowed her to be more active. INTAKE PAIN ASSESSMENT 08/29/2023 09/28/2023 Are you having pain associated with your visit today? - Yes, Provider notified Pain Scales - Verbal (Numeric Rating or Visual Analog Scale) Pain Level 1 4 Pain Location Shoulder-Right Generalized Description Aching Sharp;Stabbing;Radiating;Aching Duration Amount of Time - - Duration Units - - Frequency - Continuous Intervention/Comfort measure - Medication;Other: See comment;Exercise Comments - Injections and TENs Pain Assessment Reassessment - HPI PAST MEDICAL HISTORY Diagnosis Date Allergic rhinitis due to other allergen Bipolar I disorder, most recent episode (or current) unspecified hosp 04 mutile suicide attempts/Dr. Jenkins Hypercalcemia Migraine without aura Morbid obesity (HCC) stated BMI HT: 68 WT: 375 Myalgia and myositis, unspecified Other specified cardiac dysrhythmias(427.89) PMH - PAST MEDICAL HISTORY OF MONO Unspecified essential hypertension PAST SURGICAL HISTORY Procedure Laterality Date ADENOIDECTOMY PRIMARY <AGE 11 1994 Adenoidectomy COLONOSCOPY W/BIOPSY SINGLE/MULTIPLE 12/23/2019 EXTRACTION, ERUPTED TOOTH OR EXPOSED ROOT (ELEVATION AND/OR FORCEPS REMOVAL) 1995 [place] teeth TONSILLECTOMY PRIMARY/SECONDARY <AGE 11 1994 Tonsillectomy Social History Tobacco Use Smoking status: Former Packs/day: .5 Types: Cigarettes Quit date: 06/16/2008 Years since quittin.2 Smokeless tobacco: Never Vaping Use Vaping Use: Never used Substance Use Topics Alcohol use: No Drug use: No Review of Systems Constitutional: Negative for fever and unexpected weight change. Musculoskeletal: +back pain, joint pain, muscle cramps/weakness, stiffness, arthritis, and leg pain with exertion. Objective BP 115/75 (BP Site: Left Arm, BP Position: Sitting, BP Cuff Size: Large Adult) Pulse 71 Temp 36.1 C (97 F) Resp 18 Ht 172.7 cm (5' 8) Wt 85.3 kg (188 lb) LMP 07/08/2020 (Approximate) SpO2 100% BMI 28.59 kg/m Physical Exam Vitals and nursing note reviewed. Constitutional: Appearance: Normal appearance. She is well-developed, well-groomed and overweight. HENT: Head: Normocephalic and atraumatic. Right Ear: Hearing normal. Left Ear: Hearing normal. Eyes: Conjunctiva/sclera: Conjunctivae normal. Comments: Wearing glasses Musculoskeletal: Comments: The patient walks with a normal gait. There is tenderness to palpation in the cervical and lumbar region with spasms noted in the trapezius and paraspinal muscles. She has tenderness noted over the right SI joint Strength is 5/5 throughout. Sensation is intact to light touch throughout. SLR is negative. She has tenderness to palpation in the knees bilaterally. There is tenderness noted over the left subacromial bursa. Neurological: Mental Status: She is alert and oriented to person, place, and time. Psychiatric: Attention and Perception: Attention and perception normal. Mood and Affect: Mood and affect normal. Speech: Speech normal. Behavior: Behavior normal. Behavior is cooperative. Thought Content: Thought content normal. Judgment: Judgment normal. Assessment and Plan ASSESSMENT/PLAN: 1. Fibromyalgia - ICD9: 729.1, ICD10: M79.7 (primary diagnosis) The OARRS report has been reviewed and is consistent with the patients medical history and medication intake. The patient underwent a random drug screen at today's office visit. Continue with cyclobenzaprine, pregabalin, meloxicam, and diclofenac gel. Increase the pregabalin to 75 mg three times a day to help cover the pain from not having the belbuca. We will send in a script for a butrans patch under her new insurance once this kicks in. Continue using TENS unit. Continue doing your yoga and strengthening exercises, but make sure you give your body a chance to rest. FU in the office in 6 weeks Continue to FU with the net developer architect for the neuropathy. Continue with the kinesiology tape/roller ball on the feet. You can use CBD oil, just avoid THC, and delta 8 and delta 9. 2. Sacroiliitis (HCC) - ICD9: 720.2, ICD10: M46.1 3. Primary osteoarthritis of both knees - ICD9: 715.16, ICD10: M17.0 - TOXASSURE FLEX 23, URINE 4. Subacromial bursitis of both shoulders - ICD9: 726.19, ICD10: M75.51, M75.52 5. Generalized anxiety disorder - ICD9: 300.02, ICD10: F41.1 6. Chronic pain of both shoulders - ICD9: 719.41, 338.29, ICD10: M25.511, G89.29, M25.512 7. Neuropathy involving both lower extremities - ICD9: 356.9, ICD10: G57.93 8. Other mcfp (current) drug therapy - ICD9: V58.69, ICD10: Z79.899 - TOXASSURE FLEX 23, URINE Freeman Sarabia PA-C documented in this encounterMer[facility]11-28-2023 Miscellaneous Notes* Telephone Encounter - Freeman Sarabia PA-C - 09/26/2023 10:33 AM EST The following approved medication requests have been transmitted electronically. Signed Prescriptions: Disp Refills buprenorphine (BUTRANS) 20 mcg/hour transd*4 Patch0 Sig: Apply 1 Patch as directed one time a week for 28 days. Apply one patch to fatty area for 7 days. Do not start until 12 hours after last belbuca taken. Authorizing Provider: FREEMAN SARABIA PA-C * Telephone Encounter - Bertha Flynn LPN - 09/26/2023 10:16 AM EST Pt informed of change in medication, to not start patch until 12 hours after last belbuca dose, stated ok. * Telephone Encounter - Min Velazco MD - 09/25/2023 3:12 PM EST Switch to butrans 20 mcg/hr q 7 days * Telephone Encounter - Bertha Flynn LPN - 09/25/2023 2:56 PM EST Call received from pt that PA needed for belbuca. Submitted to [facility] and call medicationnot covered, no longer on formulary. Spoke with pt and informed. Stated I have been using only 1 a day since it couldn't be filled on 09/20/23, and needed an auth (office was closed after finding out), and I am having more pain since, but since they won't cover it, if my dosing of lyrica could beincreased or consider going back to the butrans patch (I had to stop since I was sweating so much and the patch would fall off after 2 days, but now I am on a med that causes me to not sweat). documented in this encounterMer[facility]11-20-2023 Miscellaneous Notes* Telephone Encounter - Freeman Sarabia PA-C - 09/18/2023 3:07 PM EST The following approved medication requests have been transmitted electronically. Requested Prescriptions Pending Prescriptions Disp Refills buprenorphine (BELBUCA) 150 mcg buccal film 60 Film 0 Sig: Place 1 Film between cheek and gum every 12 hours for 30 days. Do not start before September 21, 2023. Freeman Sarabia PA-C * Telephone Encounter - Nydia Mike RN - 09/18/2023 2:00 PM EST Patient phones requesting refills as follows: Requested Prescriptions Pending Prescriptions Disp Refills buprenorphine (BELBUCA) 150 mcg buccal film 60 Film 0 Sig: Place 1 Film between cheek and gum every 12 hours for 30 days. Do not start before September 21, 2023. Nydia Mike RN documented in this encounterMercy [facility]10-31-2023 Hospital Discharge instructions* Discharge Instr - Other Orders* Min Velazco MD - 08/29/2023 2:53 PM EDT Post-procedure instructions: 1. Rest today. You may feel drowsy the rest of the day. Avoid excessive bending, walking, and lifting. Resume your normal activities tomorrow. 2. Remove Band-Aid tomorrow. 3. Resume your current medications. If you are on any blood thinners or any other medications you were told to stop before your procedure, you may continue those tomorrow. 4. If you received oral sedation, no driving or alcohol for 24 hours. 5. You may shower, but no tub baths for 24 hours. 6. If you are diabetic, check your sugar for the next 5 days as the steroid may elevate you sugar. Call your medical doctor if you sugar is elevated. Before your next injection: (also refer to your pre-procedure checklist given to you when you scheduled your first injection) 1. Stop all blood thinners as you were directed. If you are unsure, please call our office for clarification. 2. If you were prescribed Valium prior to the procedure or if you are to receive oral sedation, youmay eat as you normally would, but you do need a van driver helper. Additional Instructions: documented in this encounterMercy Health [facility]10-31-2023 Surgical operation note* Operative Report - Min Velazco MD - 08/29/2023 2:52 PM EDT Summary: Bilateral subacromial bursae injection Subacromial Bursa Injection PROCEDURE: Bilateral subacromial bursa injection CPT code: 52449-11 PREPROCEDURE DIAGNOSIS: subacromial bursitis POSTPROCEDURE DIAGNOSIS: same ANESTHESIA: none PROCEDURE REPORT: The risks and benefits of the procedure were explained to the patient and all questions were answered. The patient gave consent to proceed with the procedure. The skin was sterilely prepped. A 25G 38mm needle was advanced to the point of greatest tenderness around the right subacromial/subdeltoid bursa. 40 mg of Depo-Medrol diluted to a total volume of 5 mL with bupivacaine 0.25% was then injected. The needle was withdrawn intact. A similar procedure was performed on the left side. The patient tolerated the procedure well with no complications noted. SIGNATURE: Min Velazco MD PATIENT NAME: Sheila Crowe DATE: August 29, 2023 TIME: 2:52 PM documented in this encounterMercy Health [facility]10-27-2023 History of Present illness Narrative* Geno Mcrae RT(R) - 08/25/2023 10:00 AM EDT Radiology Service Progress Note PATIENT NAME: Sheila Crowe DATE OF SERVICE: August 25, 2023 TIME: 10:14 AM PATIENT IDENTITY VERIFICATION COMPLETED USING TWO (2) IDENTIFIERS: Name and Date of confirmedby patient verbally. FALL SCREENING: Has the patient had 2 falls in the last year or 1 fall with injury or currently using an Ambulatory Assistive Device (Walker, Cane, Wheelchair, Crutches, etc.)? No PATIENT GENDER DATA: Female. status: : No status: NO. PATIENT RELEVANT IMPLANT DATA REVIEWED: Yes RADIOLOGY DEPARTMENT: General X-ray: Exam(s) Completed: Upper Extremity X- Ray(s): Shoulder, AP / TRUE AP / AXILLARY / SUPRA OUTLET bilateral PERIPHERAL IV DATA: Not applicable SIGNED BY: RT Sudheer(R) August 25, 2023 10:14 AM documented in this encounterMercy Health Tiff[facility]10-27-2023 Instructions* Patient Instructions* Freeman Sarabia PA-C - 08/25/2023 9:24 AM EDT The OARRS report has been reviewed and is consistent with the patients medical history and medication intake. Continue with belbuca, cyclobenzaprine, pregabalin, meloxicam, and diclofenac gel. Continue using TENS unit. We will try and order a sock garment to use on her feet. If this is not covered you can look for one online. Continue doing your yoga and strengthening exercises, but make sure you give your body a chance to rest. FU in the office in 6 weeks Order bilateral shoulder xrays for further evaluation. Depending on the results, we will then consider ordering PT. Schedule bilateral subacromial bursa injections x 1 visit. Continue to FU with the net developer architect for the neuropathy. Continue with the kinesiology tape/roller ball on the feet. You can use CBD oil, just avoid THC, and delta 8 and delta 9. I will discuss the patient with Dr. Velazco when he returns to the office. All of the above is to improve functionality and quality of life. No evidence of drug abuse or diversion is seen at this time. documented in this encounterMercy Health [facility]10-27-2023 History of Present illness Narrative* Freeman Sarabia PA-C - 08/25/2023 9:02 AM EDT This note was created using [employer]. Subjective Sheila Crowe is a 42 year old female. The patient primarily being seen for generalized pain Patient was last seen on: 07/13/23 At that time, the treatment plan was: see notes Current Meds: Belbuca am/ Lyrica am/ Meloxicam prn/ Flexeril prn Efficacy: helpful Side effects: denies TENS unit: yes How often used: 4x/week Benefit: helpful Physical Therapy: Last UDS: 03/03/23 Last injection: 06/21/23-left subacromial bursa OARRS reviewed At the present time, the patient reports benefit with her present analgesic therapy. She denies anyadverse effects. Since her previous visit, she denies any hospitalizations or ER visits. She is having worsening pain in her shoulders and would like to get an xray of her shoulders for further evaluation. She would also like to get the shoulder injections rescheduled. INTAKE PAIN ASSESSMENT 07/13/2023 08/25/2023 Are you having pain associated with your visit today? Yes, Provider notified Yes, Provider notified Pain Scales Verbal (Numeric Rating or Visual Analog Scale) Verbal (Numeric Rating or Visual Analog Scale) Pain Level 4 5 Pain Location Generalized Generalized Description Aching;Burning;Radiating Aching;Sharp Duration Amount of Time - - Duration Units - - Frequency Continuous Continuous Intervention/Comfort measure Medication;Relaxation;Cold;Other: See comment;Exercise Medication;Relaxation;Exercise;Heat Comments relief of shoulder pain with injection in past - Pain Assessment - - HPI PAST MEDICAL HISTORY Diagnosis Date Allergic rhinitis due to other allergen Bipolar I disorder, most recent episode (or current) unspecified hosp 04 mutile suicide attempts/Dr. Jenkins Hypercalcemia Migraine without aura Morbid obesity (HCC) stated BMI HT: 68 WT: 375 Myalgia and myositis, unspecified Other specified cardiac dysrhythmias(427.89) PMH - PAST MEDICAL HISTORY OF MONO Unspecified essential hypertension PAST SURGICAL HISTORY Procedure Laterality Date ADENOIDECTOMY PRIMARY <AGE 11 1994 Adenoidectomy COLONOSCOPY W/BIOPSY SINGLE/MULTIPLE 12/23/2019 EXTRACTION, ERUPTED TOOTH OR EXPOSED ROOT (ELEVATION AND/OR FORCEPS REMOVAL) 1995 [place] teeth TONSILLECTOMY PRIMARY/SECONDARY <AGE 11 1994 Tonsillectomy Social History Tobacco Use Smoking status: Former Packs/day: .5 Types: Cigarettes Quit date: 06/16/2008 Years since quittin.2 Smokeless tobacco: Never Vaping Use Vaping Use: Never used Substance Use Topics Alcohol use: No Drug use: No Review of Systems Constitutional: Negative for fever and unexpected weight change. Musculoskeletal: +back pain, joint pain, muscle cramps/weakness, stiffness, arthritis, and leg pain with exertion. Objective BP 109/72 (BP Site: Left Arm, BP Position: Sitting, BP Cuff Size: Regular Adult) Pulse 68 Temp 36.2 C (97.2 F) (Temporal) Resp 18 LMP 07/08/2020 (Approximate) SpO2 100% Physical Exam Vitals and nursing note reviewed. Constitutional: Appearance: Normal appearance. She is well-developed, well-groomed and overweight. HENT: Head: Normocephalic and atraumatic. Right Ear: Hearing normal. Left Ear: Hearing normal. Eyes: Conjunctiva/sclera: Conjunctivae normal. Comments: Wearing glasses Musculoskeletal: Comments: The patient walks with a normal gait. There is tenderness to palpation in the cervical and lumbar region with spasms noted in the trapezius and paraspinal muscles. She has tenderness noted over the right SI joint Strength is 5/5 throughout. Sensation is intact to light touch throughout. SLR is negative. She has tenderness to palpation in the knees bilaterally. There is tenderness noted over the left subacromial bursa. Neurological: Mental Status: She is alert and oriented to person, place, and time. Psychiatric: Attention and Perception: Attention and perception normal. Mood and Affect: Mood and affect normal. Speech: Speech normal. Behavior: Behavior normal. Behavior is cooperative. Thought Content: Thought content normal. Judgment: Judgment normal. Assessment and Plan ASSESSMENT/PLAN: 1. Fibromyalgia - ICD9: 729.1, ICD10: M79.7 (primary diagnosis) The OARRS report has been reviewed and is consistent with the patients medical history and medication intake. Continue with belbuca, cyclobenzaprine, pregabalin, meloxicam, and diclofenac gel. Continue using TENS unit. We will try and order a sock garment to use on her feet. If this is not covered you can look for one online. Continue doing your yoga and strengthening exercises, but make sure you give your body a chance to rest. FU in the office in 6 weeks Order bilateral shoulder xrays for further evaluation. Depending on the results, we will then consider ordering PT. Schedule bilateral subacromial bursa injections x 1 visit. Continue to FU with the net developer architect for the neuropathy. Continue with the kinesiology tape/roller ball on the feet. You can use CBD oil, just avoid THC, and delta 8 and delta 9. - CYCLOBENZAPRINE 10 MG TABLET 2. Primary osteoarthritis of both knees - ICD9: 715.16, ICD10: M17.0 3. Sacroiliitis (HCC) - ICD9: 720.2, ICD10: M46.1 4. Generalized anxiety disorder - ICD9: 300.02, ICD10: F41.1 5. Subacromial bursitis of both shoulders - ICD9: 726.19, ICD10: M75.51, M75.52 - SURGICAL REQUEST - ELECTIVE (05/2020) 6. Chronic pain of both shoulders - ICD9: 719.41, 338.29, ICD10: M25.511, G89.29, M25.512 - XR SHOULDER ORTHO 4V AP/TRUE AP/LAT/OUTLET LEFT - XR SHOULDER ORTHO 4V AP/TRUE AP/LAT/OUTLET RIGHT 7. Neuropathy involving both lower extremities - ICD9: 356.9, ICD10: G57.93 Freeman Sarabia PA-C documented in this encounterMer[facility]23 Miscellaneous Notes* Telephone Encounter - Freeman Sarabia PA-C - 08/21/2023 11:02 AM EDT The following approved medication requests have been transmitted electronically. Requested Prescriptions Pending Prescriptions Disp Refills buprenorphine (BELBUCA) 150 mcg buccal film 60 Film 0 Sig: Place 1 Film between cheek and gum every 12 hours for 30 days. Freeman Sarabia PA-C * Telephone Encounter - Kristal Luo RN - 08/21/2023 10:50 AM EDT Patient phones requesting refills as follows: Requested Prescriptions Pending Prescriptions Disp Refills buprenorphine (BELBUCA) 150 mcg buccal film 60 Film 0 Sig: Place 1 Film between cheek and gum every 12 hours for 30 days. Please review and advise. Kristal Luo RN documented in this encounterMercy [facility]09-21-2023 Miscellaneous Notes* Telephone Encounter - Freeman Sarabia PA-C - 07/20/2023 12:16 PM EDT The following approved medication requests have been transmitted electronically. Requested Prescriptions Pending Prescriptions Disp Refills pregabalin (LYRICA) 75 mg capsule 60 capsule 3 Sig: Take 1 capsule by mouth twice daily for 120 days. Freeman Sarabia PA-C * Telephone Encounter - Nydia Miek RN - 07/20/2023 11:50 AM EDT Patient called. She states that you told her that it is OK for her to change the Pregabalin Rx at the next refill to Pregabalin 75mg bid (rather than 50mg tid). Rx set up to be sent electronically. Nydia Mike RN July 20, 2023 11:51 AM Patient phones requesting refills as follows: Requested Prescriptions Pending Prescriptions Disp Refills pregabalin (LYRICA) 75 mg capsule 60 capsule 3 Sig: Take 1 capsule by mouth twice daily for 120 days. Nydia Mike RN documented in this encounterMercy Health [facility]09-14-2023 Instructions* Patient Instructions* Freeman Sarabia PA-C - 07/13/2023 1:38 PM EDT The OARRS report has been reviewed and is consistent with the patients medical history and medication intake. Continue with belbuca, cyclobenzaprine, pregabalin, meloxicam, and diclofenac gel. Increase the pregabalin to 50 mg three times a day. Continue using TENS unit. Continue doing your yoga and strengthening exercises, but make sure you give your body a chance to rest. FU in the office in 6 weeks Continue to FU with the net developer architect and get the EMG done in June. Continue with the kinesiology tape/roller ball on the feet. You can use CBD oil, just avoid THC, and delta 8 and delta 9. I discussed the patient with Dr. Velazco who agrees with my assessment and plan. All of the above is to improve functionality and quality of life. No evidence of drug abuse or diversion is seen at this time. documented in this encounterMercy Health [facility]09-14-2023 History of Present illness Narrative* Freeman Sarabia PA-C - 07/13/2023 1:26 PM EDT This note was created using [email or web address]. Subjective Sheila Crowe is a 42 year old female. The patient primarily being seen for generalized pain Patient was last seen on: 05/26/23 At that time, the treatment plan was: see notes Current Meds: Belbuca am/ Lyrica am/ Meloxicam prn/ Flexeril prn Efficacy: helpful Side effects: denies TENS unit: yes How often used: 4x/week Benefit: helpful Physical Therapy: Last UDS: 03/03/23 Last injection: 06/01/23-left subacromial bursa OARRS reviewed At the present time, the patient reports benefit with her present analgesic therapy. She denies anyadverse effects. Since her previous visit, she denies any hospitalizations or ER visits. She statesthat the shoulder injection helped 60% of her pain and allowed her to be more active. INTAKE PAIN ASSESSMENT 06/01/2023 07/13/2023 Are you having pain associated with your visit today? - Yes, Provider notified Pain Scales - Verbal (Numeric Rating or Visual Analog Scale) Pain Level 3 4 Pain Location Shoulder-Left Generalized Description Sharp Aching;Burning;Radiating Duration Amount of Time - - Duration Units - - Frequency - Continuous Intervention/Comfort measure - Medication;Relaxation;Cold;Other: See comment;Exercise Comments - relief of shoulder pain with injection in past Pain Assessment Reassessment - HPI PAST MEDICAL HISTORY Diagnosis Date Allergic rhinitis due to other allergen Bipolar I disorder, most recent episode (or current) unspecified hosp 04 mutile suicide attempts/Dr. Jenkins Hypercalcemia Migraine without aura Morbid obesity (HCC) stated BMI HT: 68 WT: 375 Myalgia and myositis, unspecified Other specified cardiac dysrhythmias(427.89) PMH - PAST MEDICAL HISTORY OF MONO Unspecified essential hypertension PAST SURGICAL HISTORY Procedure Laterality Date ADENOIDECTOMY PRIMARY <AGE 11 1994 Adenoidectomy COLONOSCOPY W/BIOPSY SINGLE/MULTIPLE 12/23/2019 EXTRACTION, ERUPTED TOOTH OR EXPOSED ROOT (ELEVATION AND/OR FORCEPS REMOVAL) 1995 [place] teeth TONSILLECTOMY PRIMARY/SECONDARY <AGE 11 1994 Tonsillectomy Social History Tobacco Use Smoking status: Former Packs/day: .5 Types: Cigarettes Quit date: 06/16/2008 Years since quittin.0 Smokeless tobacco: Never Vaping Use Vaping Use: Never used Substance Use Topics Alcohol use: No Drug use: No Review of Systems Constitutional: Negative for fever and unexpected weight change. Musculoskeletal: +back pain, joint pain, muscle cramps/weakness, stiffness, arthritis, and leg pain with exertion. Objective BP 119/76 (BP Site: Left Arm, BP Position: Sitting, BP Cuff Size: Large Adult) Pulse 64 Temp 36.3 C (97.3 F) (Temporal) Resp 18 LMP 07/08/2020 (Approximate) SpO2 100% Physical Exam Vitals and nursing note reviewed. Constitutional: Appearance: Normal appearance. She is well-developed, well-groomed and overweight. HENT: Head: Normocephalic and atraumatic. Right Ear: Hearing normal. Left Ear: Hearing normal. Eyes: Conjunctiva/sclera: Conjunctivae normal. Comments: Wearing glasses Musculoskeletal: Comments: The patient walks with a normal gait. There is tenderness to palpation in the cervical and lumbar region with spasms noted in the trapezius and paraspinal muscles. She has tenderness noted over the right SI joint Strength is 5/5 throughout. Sensation is intact to light touch throughout. SLR is negative. She has tenderness to palpation in the knees bilaterally. There is tenderness noted over the left subacromial bursa. Neurological: Mental Status: She is alert and oriented to person, place, and time. Psychiatric: Attention and Perception: Attention and perception normal. Mood and Affect: Mood and affect normal. Speech: Speech normal. Behavior: Behavior normal. Behavior is cooperative. Thought Content: Thought content normal. Judgment: Judgment normal. Assessment and Plan ASSESSMENT/PLAN: 1. Fibromyalgia - ICD9: 729.1, ICD10: M79.7 (primary diagnosis) The OARRS report has been reviewed and is consistent with the patients medical history and medication intake. Continue with belbuca, cyclobenzaprine, pregabalin, meloxicam, and diclofenac gel. Increase the pregabalin to 50 mg three times a day. Continue using TENS unit. Continue doing your yoga and strengthening exercises, but make sure you give your body a chance to rest. FU in the office in 6 weeks Continue to FU with the net developer architect and get the EMG done in June. Continue with the kinesiology tape/roller ball on the feet. You can use CBD oil, just avoid THC, and delta 8 and delta 9. - PREGABALIN 50 MG CAPSULE 2. Primary osteoarthritis of both knees - ICD9: 715.16, ICD10: M17.0 - BUPRENORPHINE HCL 150 MCG BUCCAL FILM - MELOXICAM 15 MG TABLET 3. Sacroiliitis (HCC) - ICD9: 720.2, ICD10: M46.1 4. Generalized anxiety disorder - ICD9: 300.02, ICD10: F41.1 5. Subacromial bursitis of both shoulders - ICD9: 726.19, ICD10: M75.51, M75.52 Freeman Sarabia PA-C documented in this encounterMer[facility]08-28-2023 Miscellaneous Notes* Telephone Encounter - Freeman Sarabia PA-C - 06/26/2023 2:24 PM EDT The following approved medication requests have been transmitted electronically. Requested Prescriptions Pending Prescriptions Disp Refills pregabalin (LYRICA) 50 mg capsule 60 capsule 3 Sig: Take 1 capsule by mouth twice daily for 120 days. Freeman Sarabia PA-C * Telephone Encounter - Nydia Mike RN - 06/26/2023 1:59 PM EDT Patient called for refill of Pregabalin. She said that it is helping with her pain. She will continue at 50mg bid and keep follow up appointment on 07/13/23. Rx set up to send electronically in [employer]. Nydia Mike RN June 26, 2023 2:01 PM Patient phones requesting refills as follows: Requested Prescriptions Pending Prescriptions Disp Refills pregabalin (LYRICA) 50 mg capsule 60 capsule 3 Sig: Take 1 capsule by mouth twice daily for 120 days. Nydia Mike RN documented in this encounterMercy [facility]08-22-2023 Miscellaneous Notes* Telephone Encounter - Kristal Luo RN - 06/20/2023 7:50 AM EDT Patient phones requesting refills as follows: Requested Prescriptions Pending Prescriptions Disp Refills buprenorphine (BELBUCA) 150 mcg buccal film 60 Film 0 Sig: Place 1 Film between cheek and gum every 12 hours for 30 days. Do not start before June 21, 2023. Please review and advise. Kristal Luo, RN documented in this encounterMercy Health [facility]08-03-2023 Hospital Discharge instructions* Discharge Instr - Other Orders* Min Velazco MD - 06/01/2023 4:17 PM EDT Post-procedure instructions: 1. Rest today. You may feel drowsy the rest of the day. Avoid excessive bending, walking, and lifting. Resume your normal activities tomorrow. 2. Remove Band-Aid tomorrow. 3. Resume your current medications. If you are on any blood thinners or any other medications you were told to stop before your procedure, you may continue those tomorrow. 4. If you received oral sedation, no driving or alcohol for 24 hours. 5. You may shower, but no tub baths for 24 hours. 6. If you are diabetic, check your sugar for the next 5 days as the steroid may elevate you sugar. Call your medical doctor if you sugar is elevated. Before your next injection: (also refer to your pre-procedure checklist given to you when you scheduled your first injection) 1. Stop all blood thinners as you were directed. If you are unsure, please call our office for clarification. 2. If you were prescribed Valium prior to the procedure or if you are to receive oral sedation, youmay eat as you normally would, but you do need a van driver helper. Additional Instructions: documented in this encounterMercy Health [facility]08-03-2023 Surgical operation note* Operative Report - Min Velazco MD - 06/01/2023 4:17 PM EDT Summary: Left subacromial bursa injection Subacromial Bursa Injection PROCEDURE: Left subacromial bursa injection CPT code: 27521 PREPROCEDURE DIAGNOSIS: subacromial bursitis POSTPROCEDURE DIAGNOSIS: same ANESTHESIA: none PROCEDURE REPORT: The risks and benefits of the procedure were explained to the patient and all questions were answered. The patient gave consent to proceed with the procedure. The skin was sterilely prepped. A 25G 38mm needle was advanced to the point of greatest tenderness around the left subacromial/subdeltoid bursa. 40 mg of Depo- Medrol diluted to a total volume of 5 mL with bupivacaine 0.25% was then injected. The needle was withdrawn intact. The patient tolerated the procedure well with no complications noted. SIGNATURE: Min Velazco MD PATIENT NAME: Sheila Crowe DATE: June 01, 2023 TIME: 4:17 PM documented in this encounterMercy [facility]08-02-2023 Miscellaneous Notes* Telephone Encounter - Freeman Sarabia PA-C - 05/31/2023 7:04 AM EDT Signed. * Telephone Encounter - Bertha Flynn LPN - 05/30/2023 4:22 PM EDT Reached pt and obtained information for PA of pregabalin. Stated I was going to call and ask for a shoulder injection, I don't think I can wait for it much longer. Scheduled 06/01/2023 =@ 4:30. Procedure to be done: Joint Injection - Left shoulder - subacromial A van driver helper is required: No Oral Sedation is requested : No If you are receiving oral sedation, you may eat a light meal. Clothing to wear: Back injections - elastic waist/jogging pants Neck injections - wide neck or button down shirt; please do not wear neck jewelry Plan to take it easy the rest of the day following your procedure. You may resume normal [id number] hours following your procedure or as otherwise instructed. Special Instructions - NONE documented in this encounterMercy Health [facility]07-28-2023 Instructions* Patient Instructions* Freeman Sarabia PA-C - 05/26/2023 1:32 PM EDT The OARRS report has been reviewed and is consistent with the patients medical history and medication intake. Continue with belbuca, cyclobenzaprine, meloxicam, and diclofenac gel Take the gabapentin once a day for 1 week, then stop that and start pregabalin 25 mg one at night x1 week, twice a day for 1 week, three times a day for 1 week, then one in the AM, one in afternoon,and two in the PM x 1 week. Call our office when you are close to running out and let us know whereyou are at with the dose and whether you are having side effects and we will call in the next script. Continue using TENS unit. Continue doing your yoga and strengthening exercises, but make sure you give your body a chance to rest. FU in the office in 6 weeks Continue to FU with the new net developer architect and get the EMG done in June. Continue with the kinesiology tape/roller ball on the feet. You can use CBD oil, just avoid THC, and delta 8 and delta 9. Call our office if you need the left subacromial bursa injections scheduled prior to your next visit. I will discuss the patient with Dr. Velazco when he returns to the office. All of the above is to improve functionality and quality of life. No evidence of drug abuse or diversion is seen at this time. documented in this encounterMercy Health [facility]07-28-2023 History of Present illness Narrative* Freeman Sarabia PA-C - 05/26/2023 1:24 PM EDT This note was created using [email or web address]. Subjective Sheila Crowe is a 42 year old female. The patient primarily being seen for generalized pain Patient was last seen on: 04/14/23 At that time, the treatment plan was: see notes Current Meds: Belbuca am/ Gabapentin am/ Meloxicam prn/ Flexeril prn Efficacy: helpful Side effects: denies TENS unit: yes How often used: 4x/week Benefit: helpful Physical Therapy: Last UDS: 03/03/23 Last injection: 02/02/23-left subacromial bursa OARRS reviewed At the present time, the patient reports some benefit with her present analgesic therapy. She denies any adverse effects. She has been decreasing the dose Since her previous visit, she denies any hospitalizations or ER visits. She saw the new net developer architect and he has ordered an EMG that is currently scheduled for 07/17/23. INTAKE PAIN ASSESSMENT 04/14/2023 05/26/2023 Are you having pain associated with your visit today? Yes, Provider notified Yes, Provider notified Pain Scales Verbal (Numeric Rating or Visual Analog Scale) Verbal (Numeric Rating or Visual Analog Scale) Pain Level 5 4 Pain Location Generalized Generalized Description Sharp;Burning Aching Duration Amount of Time - - Duration Units - - Frequency Continuous Continuous Intervention/Comfort measure Medication;Relaxation;Cold;Other: See comment Medication;Relaxation;Cold;Other: See comment;Exercise Comments relief with shoulder inj. relief with injection Pain Assessment - - HPI PAST MEDICAL HISTORY Diagnosis Date Allergic rhinitis due to other allergen Bipolar I disorder, most recent episode (or current) unspecified hosp 04 mutile suicide attempts/Dr. Jenkins Hypercalcemia Migraine without aura Morbid obesity (HCC) stated BMI HT: 68 WT: 375 Myalgia and myositis, unspecified Other specified cardiac dysrhythmias(427.89) PMH - PAST MEDICAL HISTORY OF MONO Unspecified essential hypertension PAST SURGICAL HISTORY Procedure Laterality Date ADENOIDECTOMY PRIMARY <AGE 11 1994 Adenoidectomy COLONOSCOPY W/BIOPSY SINGLE/MULTIPLE 12/23/2019 EXTRACTION, ERUPTED TOOTH OR EXPOSED ROOT (ELEVATION AND/OR FORCEPS REMOVAL) 1995 [place] teeth TONSILLECTOMY PRIMARY/SECONDARY <AGE 11 1994 Tonsillectomy Social History Tobacco Use Smoking status: Former Packs/day: 0.50 Types: Cigarettes Quit date: 06/16/2008 Years since quittin.9 Smokeless tobacco: Never Vaping Use Vaping Use: Never used Substance Use Topics Alcohol use: No Drug use: No Review of Systems Constitutional: Negative for fever and unexpected weight change. Musculoskeletal: +back pain, joint pain, muscle cramps/weakness, stiffness, arthritis, and leg pain with exertion. Objective BP 136/85 (BP Site: Left Arm, BP Position: Sitting, BP Cuff Size: Regular Adult) Pulse 74 Temp 36.4 C (97.6 F) (Temporal) Resp 18 LMP 07/08/2020 (Approximate) SpO2 100% Physical Exam Vitals and nursing note reviewed. Constitutional: Appearance: Normal appearance. She is well-developed, well-groomed and overweight. HENT: Head: Normocephalic and atraumatic. Right Ear: Hearing normal. Left Ear: Hearing normal. Eyes: Conjunctiva/sclera: Conjunctivae normal. Comments: Wearing glasses Musculoskeletal: Comments: The patient walks with a normal gait. There is tenderness to palpation in the cervical and lumbar region with spasms noted in the trapezius and paraspinal muscles. She has tenderness noted over the right SI joint Strength is 5/5 throughout. Sensation is intact to light touch throughout. SLR is negative. She has tenderness to palpation in the knees bilaterally. There is tenderness noted over the left subacromial bursa. Neurological: Mental Status: She is alert and oriented to person, place, and time. Psychiatric: Attention and Perception: Attention and perception normal. Mood and Affect: Mood and affect normal. Speech: Speech normal. Behavior: Behavior normal. Behavior is cooperative. Thought Content: Thought content normal. Judgment: Judgment normal. Assessment and Plan ASSESSMENT/PLAN: 1. Fibromyalgia - ICD9: 729.1, ICD10: M79.7 (primary diagnosis) The OARRS report has been reviewed and is consistent with the patients medical history and medication intake. Continue with belbuca, cyclobenzaprine, meloxicam, and diclofenac gel Take the gabapentin once a day for 1 week, then stop that and start pregabalin 25 mg one at night x1 week, twice a day for 1 week, three times a day for 1 week, then one in the AM, one in afternoon,and two in the PM x 1 week. Call our office when you are close to running out and let us know whereyou are at with the dose and whether you are having side effects and we will call in the next script. Continue using TENS unit. Continue doing your yoga and strengthening exercises, but make sure you give your body a chance to rest. FU in the office in 6 weeks Continue to FU with the new net developer architect and get the EMG done in June. Continue with the kinesiology tape/roller ball on the feet. You can use CBD oil, just avoid THC, and delta 8 and delta 9. Call our office if you need the left subacromial bursa injections scheduled prior to your next visit. - PREGABALIN 25 MG CAPSULE 2. Primary osteoarthritis of both knees - ICD9: 715.16, ICD10: M17.0 3. Sacroiliitis (HCC) - ICD9: 720.2, ICD10: M46.1 4. Generalized anxiety disorder - ICD9: 300.02, ICD10: F41.1 5. Subacromial bursitis of both shoulders - ICD9: 726.19, ICD10: M75.51, M75.52 Freeman Sarabia PA-C documented in this encounterMercy Health [facility]05-05-2023 Instructions* Patient Instructions* Freeman Sarabia PA-C - 03/03/2023 9:51 AM EDT The OARRS report has been reviewed and is consistent with the patients medical history and medication intake. The patient underwent a random UDS at today's office visit. Continue with belbuca, gabapentin, cyclobenzaprine, meloxicam, and diclofenac gel We will send an order to [facility] for a new TENS unit to use on her upper back, knees, and lateral flanks 2-3 times a day for 30 minutes. Call them if you do not hear from them in 1-2 weeks Continue doing your yoga and strengthening exercises, but make sure you give your body a chance to rest. FU in the office in 6 weeks Continue with the kinesiology tape/roller ball on the feet. You can use CBD oil, just avoid THC, and delta 8 and delta 9. I will discuss the patient with Dr. Velazco when he returns to the office. All of the above is to improve functionality and quality of life. No evidence of drug abuse or diversion is seen at this time. documented in this encounterMercy Health [facility]05-05-2023 History of Present illness Narrative* Freeman Sarabia PA-C - 03/03/2023 9:26 AM EDT This note was created using [email or web address]. Subjective Sheila Crowe is a 42 year old female. The patient primarily being seen for generalized pain Patient was last seen on: 01/20/23 At that time, the treatment plan was: see notes Current Meds: Belbuca am/ gabapentin am/ Meloxicam yest./ Flexeril yest. Efficacy: helpful Side effects: denies TENS unit: broke How often used: Benefit: Physical Therapy: Last UDS: 03/03/23 Last injection: 02/02/23-left subacromial bursa OARRS reviewed At the present time, the patient reports benefit with her present analgesic therapy. She denies anyadverse effects. Since her previous visit, she denies any hospitalizations or ER visits. She statesthat the left subacromial bursa injection helped relieve 90% of her pain and allowed her to be moreactive. INTAKE PAIN ASSESSMENT 02/02/2023 03/03/2023 Are you having pain associated with your visit today? - Yes, Provider notified Pain Scales - Verbal (Numeric Rating or Visual Analog Scale) Pain Level 0 4 Pain Location - Generalized Description - Aching;Burning Duration Amount of Time - - Duration Units - - Frequency - Continuous Intervention/Comfort measure - Medication;Relaxation;Cold;Exercise;Other: See comment Comments - relief with shoulder inj. Pain Assessment Reassessment - PAST MEDICAL HISTORY Diagnosis Date Allergic rhinitis due to other allergen Bipolar I disorder, most recent episode (or current) unspecified hosp 04 mutile suicide attempts/Dr. Jenkins Hypercalcemia Migraine without aura Morbid obesity (HCC) stated BMI HT: 68 WT: 375 Myalgia and myositis, unspecified Other specified cardiac dysrhythmias(427.89) PMH - PAST MEDICAL HISTORY OF MONO Unspecified essential hypertension PAST SURGICAL HISTORY Procedure Laterality Date ADENOIDECTOMY PRIMARY <AGE 11 1994 Adenoidectomy COLONOSCOPY W/BIOPSY SINGLE/MULTIPLE 12/23/2019 EXTRACTION, ERUPTED TOOTH OR EXPOSED ROOT (ELEVATION AND/OR FORCEPS REMOVAL) 1995 [place] teeth TONSILLECTOMY PRIMARY/SECONDARY <AGE 11 1994 Tonsillectomy Social History Tobacco Use Smoking status: Former Packs/day: 0.50 Types: Cigarettes Quit date: 06/16/2008 Years since quittin.7 Smokeless tobacco: Never Vaping Use Vaping Use: Never used Substance Use Topics Alcohol use: No Drug use: No HPI Review of Systems Constitutional: Negative for fever and unexpected weight change. Musculoskeletal: +back pain, joint pain, muscle cramps/weakness, stiffness, arthritis, and leg pain with exertion. Objective BP 123/79 (BP Site: Left Arm, BP Position: Sitting, BP Cuff Size: Regular Adult) Pulse 83 Temp 36.4 C (97.6 F) (Temporal) Resp 18 LMP 07/08/2020 (Approximate) SpO2 100% Physical Exam Vitals and nursing note reviewed. Constitutional: Appearance: Normal appearance. She is well-developed, well-groomed and overweight. HENT: Head: Normocephalic and atraumatic. Right Ear: Hearing normal. Left Ear: Hearing normal. Eyes: Conjunctiva/sclera: Conjunctivae normal. Comments: Wearing glasses Musculoskeletal: Comments: The patient walks with a normal gait. There is tenderness to palpation in the cervical and lumbar region with spasms noted in the trapezius and paraspinal muscles. She has tenderness noted over the right SI joint Strength is 5/5 throughout. Sensation is intact to light touch throughout. SLR is negative. She has tenderness to palpation in the knees bilaterally. Neurological: Mental Status: She is alert and oriented to person, place, and time. Psychiatric: Attention and Perception: Attention and perception normal. Mood and Affect: Mood and affect normal. Speech: Speech normal. Behavior: Behavior normal. Behavior is cooperative. Thought Content: Thought content normal. Judgment: Judgment normal. Assessment and Plan ASSESSMENT/PLAN: 1. Primary osteoarthritis of both knees - ICD9: 715.16, ICD10: M17.0 (primary diagnosis) The OARRS report has been reviewed and is consistent with the patients medical history and medication intake. The patient underwent a random UDS at today's office visit. Continue with belbuca, gabapentin, cyclobenzaprine, meloxicam, and diclofenac gel We will send an order to [facility] for a new TENS unit to use on her upper back, knees, and lateral flanks 2-3 times a day for 30 minutes. Call them if you do not hear from them in 1-2 weeks Continue doing your yoga and strengthening exercises, but make sure you give your body a chance to rest. FU in the office in 6 weeks Continue with the kinesiology tape/roller ball on the feet. You can use CBD oil, just avoid THC, and delta 8 and delta 9. - TOXASSURE FLEX 23, URINE 2. Fibromyalgia - ICD9: 729.1, ICD10: M79.7 3. Sacroiliitis (HCC) - ICD9: 720.2, ICD10: M46.1 4. Generalized anxiety disorder - ICD9: 300.02, ICD10: F41.1 5. Subacromial bursitis of both shoulders - ICD9: 726.19, ICD10: M75.51, M75.52 6. Other mcfp (current) drug therapy - ICD9: V58.69, ICD10: Z79.899 - TOXASSURE FLEX 23, URINE Freeman Sarabia PA-C documented in this encounterMer[facility]04-10-[facility]23 Miscellaneous Notes* Telephone Encounter - Freeman Sarabia PA-C - 02/06/2023 2:53 PM EDT The following approved medication requests have been transmitted electronically. Requested Prescriptions Pending Prescriptions Disp Refills meloxicam (MOBIC) 15 mg tablet 30 tablet 3 Sig: Take 0.5-1 tablets by mouth once daily as needed. Freeman Sarabia PA-C * Telephone Encounter - Nydia Mike RN - 02/06/2023 2:47 PM EDT Patient phones requesting refills as follows: Requested Prescriptions Pending Prescriptions Disp Refills meloxicam (MOBIC) 15 mg tablet 30 tablet 3 Sig: Take 0.5-1 tablets by mouth once daily as needed. Nydia Mike RN documented in this encounterMercy Health Tiff[facility]04-06-2023 Hospital Discharge instructions* Discharge Instr - Other Orders* Min Velazco MD - 02/02/2023 10:29 AM EDT Post-procedure instructions: 1. Rest today. You may feel drowsy the rest of the day. Avoid excessive bending, walking, and lifting. Resume your normal activities tomorrow. 2. Remove Band-Aid tomorrow. 3. Resume your current medications. If you are on any blood thinners or any other medications you were told to stop before your procedure, you may continue those tomorrow. 4. If you received oral sedation, no driving or alcohol for 24 hours. 5. You may shower, but no tub baths for 24 hours. 6. If you are diabetic, check your sugar for the next 5 days as the steroid may elevate you sugar. Call your medical doctor if you sugar is elevated. Before your next injection: (also refer to your pre-procedure checklist given to you when you scheduled your first injection) 1. Stop all blood thinners as you were directed. If you are unsure, please call our office for clarification. 2. If you were prescribed Valium prior to the procedure or if you are to receive oral sedation, youmay eat as you normally would, but you do need a van driver helper. Additional Instructions: documented in this encounterMercy Health Tiff[facility]04-06-2023 Surgical operation note* Operative Report - Min Velazco MD - 02/02/2023 10:28 AM EDT Summary: Left subacromial bursa injection Subacromial Bursa Injection PROCEDURE: Left subacromial bursa injection CPT code: 08966 PREPROCEDURE DIAGNOSIS: subacromial bursitis POSTPROCEDURE DIAGNOSIS: same ANESTHESIA: none PROCEDURE REPORT: The risks and benefits of the procedure were explained to the patient and all questions were answered. The patient gave consent to proceed with the procedure. The skin was sterilely prepped. A 25G 38mm needle was advanced to the point of greatest tenderness around the left subacromial/subdeltoid bursa. 40 mg of Depo- Medrol diluted to a total volume of 5 mL with bupivacaine 0.25% was then injected. The needle was withdrawn intact. The patient tolerated the procedure well with no complications noted. SIGNATURE: Min Velazco MD PATIENT NAME: Sheila Crowe DATE: February 02, 2023 TIME: 10:29 AM documented in this encounterMercy Health Tiffin [facility]03-24-2023 Instructions* Patient Instructions* Freeman Sarabia PA-C - 01/20/2023 9:49 AM EDT The OARRS report has been reviewed and is consistent with the patients medical history and medication intake. Continue with belbuca, gabapentin, cyclobenzaprine, meloxicam, and diclofenac gel Call your TENS company and find out if they are able to fix/replace your unit. If not, we will senda new order to [facility]. Continue doing your yoga and strengthening exercises, but make sure you give your body a chance to rest. FU in the office in 6 weeks Continue with the kinesiology tape/roller ball on the feet. Schedule a left shoulder subacromial bursa injection x 1 visit. I will discuss the patient with Dr. Velazco when he returns to the office. All of the above is to improve functionality and quality of life. No evidence of drug abuse or diversion is seen at this time. Procedure to be done: Joint Injection - left subacromial bursa injection x 1 visit A van driver helper is required: No Oral Sedation is requested : No If you are receiving oral sedation, you may eat a light meal. Clothing to wear: Back injections - elastic waist/jogging pants Neck injections - wide neck or button down shirt; please do not wear neck jewelry Plan to take it easy the rest of the day following your procedure. You may resume normal [id number] hours following your procedure or as otherwise instructed. Special Instructions - NONE documented in this encounterMercy Health Tiff[facility]03-24-2023 History of Present illness Narrative* Freeman Sarabia PA-C - 01/20/2023 9:22 AM EDT This note was created using Newformater. Subjective Sheila Crowe is a 42 year old female. The patient primarily being seen for generalized pain Patient was last seen on: 11/30/22 At that time, the treatment plan was: see notes Current Meds: Belbuca am/ Gabapentin am/ Meloxicam 2 days ago/ cyclobenzaprine yest. Efficacy: helpful Side effects: denies TENS unit: yes How often used: broke Benefit: helpful Physical Therapy: Last UDS: 09/01/22 Last injection: 09/15/22-b/l shoulder OARRS reviewed At the present time, the patient reports benefit with her present analgesic therapy. She denies anyadverse effects. Since her previous visit, she denies any hospitalizations or ER visits. She would like to get the shoulder injection repeated due to increasing shoulder pain. INTAKE PAIN ASSESSMENT 11/30/2022 01/20/2023 Are you having pain associated with your visit today? Yes, Provider notified Yes, Provider notified Pain Scales Verbal (Numeric Rating or Visual Analog Scale) Verbal (Numeric Rating or Visual Analog Scale) Pain Level 4 4 Pain Location Generalized Generalized Description Aching;Sharp;Stabbing Throbbing;Aching Duration Amount of Time - - Duration Units Years - Frequency Continuous Continuous Intervention/Comfort measure Medication;Exercise Medication;Relaxation;Heat;Massage;Exercise;Other:See comment Comments - relief with shoulder injections Pain Assessment - - PAST MEDICAL HISTORY Diagnosis Date Allergic rhinitis due to other allergen Bipolar I disorder, most recent episode (or current) unspecified hosp 04 mutile suicide attempts/Dr. Jenkins Hypercalcemia Migraine without aura Morbid obesity (HCC) stated BMI HT: 68 WT: 375 Myalgia and myositis, unspecified Other specified cardiac dysrhythmias(427.89) PMH - PAST MEDICAL HISTORY OF MONO Unspecified essential hypertension PAST SURGICAL HISTORY Procedure Laterality Date ADENOIDECTOMY PRIMARY <AGE 11 1994 Adenoidectomy COLONOSCOPY W/BIOPSY SINGLE/MULTIPLE 12/23/2019 EXTRACTION, ERUPTED TOOTH OR EXPOSED ROOT (ELEVATION AND/OR FORCEPS REMOVAL) 1995 [place] teeth TONSILLECTOMY PRIMARY/SECONDARY <AGE 11 1994 Tonsillectomy Social History Tobacco Use Smoking status: Former Packs/day: 0.50 Types: Cigarettes Quit date: 06/16/2008 Years since quittin.6 Smokeless tobacco: Never Vaping Use Vaping Use: Never used Substance Use Topics Alcohol use: No Drug use: No HPI Review of Systems Constitutional: Negative for fever and unexpected weight change. Musculoskeletal: +back pain, joint pain, muscle cramps/weakness, stiffness, arthritis, and leg pain with exertion. Objective BP 116/66 (BP Site: Left Arm, BP Position: Sitting, BP Cuff Size: Regular Adult) Pulse 60 Temp 36.1 C (97 F) (Temporal) Resp 18 LMP 07/08/2020 (Approximate) SpO2 100% Physical Exam Vitals and nursing note reviewed. Constitutional: Appearance: Normal appearance. She is well-developed, well-groomed and overweight. HENT: Head: Normocephalic and atraumatic. Right Ear: Hearing normal. Left Ear: Hearing normal. Eyes: Conjunctiva/sclera: Conjunctivae normal. Comments: Wearing glasses Musculoskeletal: Comments: The patient walks with a normal gait. There is tenderness to palpation in the cervical and lumbar region with spasms noted in the trapezius and paraspinal muscles. She has tenderness noted over the right SI joint Strength is 5/5 throughout. Sensation is intact to light touch throughout. SLR is negative. She has tenderness to palpation in the knees bilaterally. She has tenderness to palpation noted over the left subacromial bursa. Neurological: Mental Status: She is alert and oriented to person, place, and time. Psychiatric: Attention and Perception: Attention and perception normal. Mood and Affect: Mood and affect normal. Speech: Speech normal. Behavior: Behavior normal. Behavior is cooperative. Thought Content: Thought content normal. Judgment: Judgment normal. Assessment and Plan ASSESSMENT/PLAN: 1. Fibromyalgia - ICD9: 729.1, ICD10: M79.7 (primary diagnosis) The OARRS report has been reviewed and is consistent with the patients medical history and medication intake. Continue with belbuca, gabapentin, cyclobenzaprine, meloxicam, and diclofenac gel Call your [employer] company and find out if they are able to fix/replace your unit. If not, we will senda new order to [facility]. Continue doing your yoga and strengthening exercises, but make sure you give your body a chance to rest. FU in the office in 6 weeks Continue with the kinesiology tape/roller ball on the feet. Schedule a left shoulder subacromial bursa injection x 1 visit. 2. Primary osteoarthritis of both knees - ICD9: 715.16, ICD10: M17.0 - BUPRENORPHINE HCL 150 MCG BUCCAL FILM 3. Sacroiliitis (HCC) - ICD9: 720.2, ICD10: M46.1 4. Generalized anxiety disorder - ICD9: 300.02, ICD10: F41.1 5. Subacromial bursitis of both shoulders - ICD9: 726.19, ICD10: M75.51, M75.52 - SURGICAL REQUEST - ELECTIVE (05/2020) Freeman Sarabia PA-C documented in this encounterMercy Health [facility]02-28-2023 Miscellaneous Notes* Telephone Encounter - Freeman Sarabia PA-C - 12/27/2022 1:40 PM EST The following approved medication requests have been transmitted electronically. Requested Prescriptions Pending Prescriptions Disp Refills gabapentin (NEURONTIN) 600 mg tablet [Pharmacy Med Name: GABAPENTIN 600 MG TABLET] 120 tablet 3 Sig: take 1 tablet by mouth four times a day Freeman Sarabia PA-C * Telephone Encounter - Kristal Luo RN - 12/27/2022 1:37 PM EST Patient phones requesting refills as follows: Requested Prescriptions Pending Prescriptions Disp Refills gabapentin (NEURONTIN) 600 mg tablet [Pharmacy Med Name: GABAPENTIN 600 MG TABLET] 120 tablet 3 Sig: take 1 tablet by mouth four times a day Please review and advise. Kristal Luo RN documented in this encounterMercy Health [facility]02-09-2023 Miscellaneous Notes* Letter - Mammography Coordinator - 12/08/2022 9:23 PM EST December 09, 2022 PID: [id number] Sheila Crowe [address] [id number] Dear Ms. Crowe, We are pleased to inform you that the results of your recent breast imaging exam on 12/08/2022 are normal. Your mammogram demonstrates that you have dense breast tissue, which could hide abnormalities. Dense breast tissue, in and of itself, is a relatively common condition. Therefore, this information is not provided to cause undue concern; rather, it is to raise your awareness and promote discussion with your health care provider regarding the presence of dense breast tissue in addition to other riskfactors. Early detection of cancer is very important. We also understand recommendations regarding breast cancer screening are controversial. Please discuss with your primary care provider which strategy is best for you and whether a mammogram is right for you. Your imaging studies and report will [facility] of [facility] permanent medical record and are available for your continuing care. Thank you for allowing us to help in meeting your health care needs. Sincerely, Dr. Gama Interpreting Radiologist [facility] (Normal over 40) documented in this encounterMercy Health Tiff[facility]02-09-2023 History of Present illness Narrative* Ronel Lewis Mammo Tech - 12/08/2022 10:10 AM EST Radiology Service Progress Note PATIENT NAME: Sheila Crowe DATE OF SERVICE: December 08, 2022 TIME: 9:56 AM PATIENT IDENTITY VERIFICATION COMPLETED USING TWO (2) IDENTIFIERS: Name and Date of confirmedby patient verbally. FALL SCREENING: Has the patient had 2 falls in the last year or 1 fall with injury or currently using an Ambulatory Assistive Device (Walker, Cane, Wheelchair, Crutches, etc.)? No PATIENT GENDER DATA: Female. status: : No status: NO. PATIENT RELEVANT IMPLANT DATA REVIEWED: Not Applicable RADIOLOGY DEPARTMENT: Mammography PERIPHERAL IV DATA: Not applicable SIGNED BY: Mary Patel December 08, 2022 9:56 AM documented in this encounterMercy Health T[facility]02-01-2023 Miscellaneous Notes* Telephone Encounter - Freeman Sarabia PA-C - 11/30/2022 2:38 PM EST The following approved medication requests have been transmitted electronically. Requested Prescriptions Pending Prescriptions Disp Refills cyclobenzaprine (FLEXERIL) 10 mg tablet 90 tablet 3 Sig: Take 1 tablet by mouth three times daily as needed for muscle spasm. Freeman Sarabia PA-C * Telephone Encounter - Krisatl Luo RN - 11/30/2022 2:31 PM EST Ordered per Dr Velazco at office visit Patient phones requesting refills as follows: Requested Prescriptions Pending Prescriptions Disp Refills cyclobenzaprine (FLEXERIL) 10 mg tablet 90 tablet 3 Sig: Take 1 tablet by mouth three times daily as needed for muscle spasm. Please review and advise. Kristal Luo RN documented in this encounterMercy Health Tiff[facility]02-01-2023 Instructions* Patient Instructions* Min Velaczo MD - 11/30/2022 1:50 PM EST Patient will be switched back to cyclobenzaprine from metaxalone. She will continue with Belbuca, gabapentin, meloxicam, and diclofenac gel. She will continue using her TENS unit. She will continue with yoga and stretching exercises. Follow-up in office in 6 weeks time. documented in this encounterMercy Health [facility]02-01-2023 History of Present illness Narrative* Min Velazco MD - 11/30/2022 1:30 PM EST This note was created using [email or web address]. Subjective Sheila Crowe is a 42 year old female. The patient primarily being seen for generalized pain Patient was last seen on: 10/13/22 At that time, the treatment plan was: see notes Current Meds: Belbuca - last dose this am, Gabapentin - noon, Meloxicam - couple days ago, Metaxalone - this week Efficacy: help , Metaxalone doesn't seem to be helping Side effects: none TENS unit: yes How often used: 2-3 times weekly Benefit: helps back Physical Therapy: none - does stretches at home Last UDS: 09/01/22 Last injection: 09/15/22 - Bilateral Shoulder injection OARRS reviewed INTAKE PAIN ASSESSMENT 10/13/2022 11/30/2022 Are you having pain associated with your visit today? Yes, Provider notified Yes, Provider notified Pain Scales Verbal (Numeric Rating or Visual Analog Scale) Verbal (Numeric Rating or Visual Analog Scale) Pain Level 3 4 Pain Location Generalized Generalized Description Sharp;Aching;Burning;Other: See comment Aching;Sharp;Stabbing Duration Amount of Time - - Duration Units - Years Frequency Continuous Continuous Intervention/Comfort measure Medication;Other: See comment;Heat;Massage;Exercise Medication;Exercise Comments - - Pain Assessment - - HPI Patient is getting adequate relief from the present regimen and denies any side effect from it. This has improved the patient s level of functionality and has been able to perform activities of dailyliving. The patient exhibits no aberrant behavior. The PDMP report and last UDS are both consistentwith prescribed medications and are unremarkable. Patient says that cyclobenzaprine worked better for her than Skelaxin. Review of Systems Constitutional: Negative for fever and unexpected weight change. Musculoskeletal: Positive for neck pain, back pain, joint pain, muscle cramps/weakness, stiffness, arthritis, and leg pain with exertion. Objective BP 111/67 (BP Site: Left Arm, BP Position: Sitting, BP Cuff Size: Large Adult) Pulse 67 Temp 36.2 C (97.1 F) (Temporal) Resp 20 Ht 172.7 cm (5' 8) Wt 88.9 kg (196 lb) LMP 07/08/2020 (Approximate) SpO2 100% BMI 29.80 kg/m Physical Exam Vitals and nursing note reviewed. Constitutional: General: She is not in acute distress. Appearance: Normal appearance. She is well-developed, well-groomed and normal weight. HENT: Head: Normocephalic and atraumatic. Right Ear: Hearing and external ear normal. Left Ear: Hearing and external ear normal. Nose: Nose normal. Eyes: General: No scleral icterus. Extraocular Movements: Extraocular movements intact. Conjunctiva/sclera: Conjunctivae normal. Comments: Wearing glasses Musculoskeletal: Comments: The patient walks with a normal gait. There is tenderness to palpation in the cervical and lumbar region with spasms noted in the trapezius and paraspinal muscles. She has tenderness noted over the right SI joint Strength is 5/5 throughout. Sensation is intact to light touch throughout. SLR is negative. She has tenderness to palpation in the knees bilaterally. Shoulder ROM is intact. Skin: General: Skin is warm and dry. Neurological: Mental Status: She is alert and oriented to person, place, and time. Psychiatric: Attention and Perception: Attention and perception normal. Mood and Affect: Mood and affect normal. Speech: Speech normal. Behavior: Behavior normal. Behavior is cooperative. Thought Content: Thought content normal. Judgment: Judgment normal. Assessment and Plan ASSESSMENT/PLAN: 1. Fibromyalgia - ICD9: 729.1, ICD10: M79.7 (primary diagnosis) Patient will be switched back to cyclobenzaprine from metaxalone. She will continue with Belbuca, gabapentin, meloxicam, and diclofenac gel. She will continue using her TENS unit. She will continue with yoga and stretching exercises. Follow-up in office in 6 weeks time. 2. Primary osteoarthritis of both knees - ICD9: 715.16, ICD10: M17.0 3. Sacroiliitis (HCC) - ICD9: 720.2, ICD10: M46.1 4. Generalized anxiety disorder - ICD9: 300.02, ICD10: F41.1 5. Subacromial bursitis of both shoulders - ICD9: 726.19, ICD10: M75.51, M75.52 Greater than two stable chronic illness and prescription medication management. This document was transcribed using a voice recognition software and may contain minor errors. Min Velazco MD documented in this encounterMercy Health [facility]01-24-2023 Miscellaneous Notes* Telephone Encounter - Freeman Sarabia PA-C - 11/22/2022 8:24 AM EST The following approved medication requests have been transmitted electronically. Requested Prescriptions Pending Prescriptions Disp Refills buprenorphine (BELBUCA) 150 mcg buccal film 60 Film 0 Sig: Place 1 Film between cheek and gum q 12 HR for 30 days. Freeman Sarabia PA-C * Telephone Encounter - Kristal Luo RN - 11/22/2022 8:09 AM EST Patient phones requesting refills as follows: Requested Prescriptions Pending Prescriptions Disp Refills buprenorphine (BELBUCA) 150 mcg buccal film 60 Film 0 Sig: Place 1 Film between cheek and gum q 12 HR for 30 days. Please review and advise. Kristal Luo RN documented in this encounterMercy Health Tiffin Hospital12-15-2022 Instructions* Patient Instructions* Freeman Sarabia PA-C - 10/13/2022 1:39 PM EST The OARRS report has been reviewed and is consistent with the patients medical history and medication intake. The patient's most recent urine drug screen has been reviewed and is appropriate and consistent with current therapy. Continue with belbuca, gabapentin, metaxalone, meloxicam, and diclofenac gel Continue using TENS unit. Continue doing your yoga and strengthening exercises, but make sure you give your body a chance to rest. FU in the office in [address] Velazco. Continue with the kinesiology tape/roller ball on the feet. I discussed the patient with Dr. Velazco who agrees with my assessment and plan. All of the above is to improve functionality and quality of life. No evidence of drug abuse or diversion is seen at this time. documented in this encounterMercy Health Tiffin Hospital12-15-2022 History of Present illness Narrative* Freeman Sarabia PA-C - 10/13/2022 1:26 PM EST This note was created using [email or web address]. Subjective Sheila Crowe is a 42 year old female. The patient primarily being seen for generalized pain Patient was last seen on: 09/01/22 At that time, the treatment plan was: see notes Current Meds: Belbuca last dose this am,Gabapentin last dose 12 noon today,Meloxicam last dose lastpm Efficacy: meds help pain Side effects: none TENS unit: yes How often used:3-4 x week Benefit: helps certain areas back and shoulders Physical Therapy: Last UDS: 09/01/22 Last injection: 09/15/22 Bilateral shoulder inj helped OARRS reviewed yes At the present time, the patient reports benefit with her present analgesic therapy. She denies anyadverse effects. Since her previous visit, she denies any hospitalizations or ER visits. She statesthat the subacromial bursa injections helped relieve 100 % on the right and 75% of her left of her pain and allowed her to be more active. INTAKE PAIN ASSESSMENT 09/15/2022 10/13/2022 Are you having pain associated with your visit today? - Yes, Provider notified Pain Scales - Verbal (Numeric Rating or Visual Analog Scale) Pain Level 4 3 Pain Location Shoulder-Left Generalized Description Sharp;Stabbing/Not Incision Sharp;Aching;Burning;Other: See comment Duration Amount of Time - - Duration Units - - Frequency - Continuous Intervention/Comfort measure - Medication;Other: See comment;Heat;Massage;Exercise Comments - - Pain Assessment Reassessment - PAST MEDICAL HISTORY Diagnosis Date Allergic rhinitis due to other allergen Bipolar I disorder, most recent episode (or current) unspecified hosp 04 mutile suicide attempts/Dr. Jenkins Hypercalcemia Migraine without aura Morbid obesity (HCC) stated BMI HT: 68 WT: 375 Myalgia and myositis, unspecified Other specified cardiac dysrhythmias(427.89) PMH - PAST MEDICAL HISTORY OF MONO Unspecified essential hypertension PAST SURGICAL HISTORY Procedure Laterality Date ADENOIDECTOMY PRIMARY <AGE 11 1994 Adenoidectomy COLONOSCOPY W/BIOPSY SINGLE/MULTIPLE 12/23/2019 EXTRACTION, ERUPTED TOOTH OR EXPOSED ROOT (ELEVATION AND/OR FORCEPS REMOVAL) 1995 [place] teeth TONSILLECTOMY PRIMARY/SECONDARY <AGE 11 1994 Tonsillectomy Social History Tobacco Use Smoking status: Former Packs/day: 0.50 Types: Cigarettes Quit date: 06/16/2008 Years since quittin.3 Smokeless tobacco: Never Vaping Use Vaping Use: Never used Substance Use Topics Alcohol use: No Drug use: No HPI Review of Systems Constitutional: Negative for fever and unexpected weight change. Musculoskeletal: +back pain, joint pain, muscle cramps/weakness, stiffness, arthritis, and leg pain with exertion. Objective BP 115/67 (BP Site: Left Arm, BP Position: Sitting, BP Cuff Size: Large Adult) Pulse 64 Temp 36.4 C (97.6 F) Resp 18 Ht 172.7 cm (5' 8) Wt 88.9 kg (196 lb) LMP 07/08/2020 (Approximate) SpO2 100% BMI 29.80 kg/m Physical Exam Vitals and nursing note reviewed. Constitutional: Appearance: Normal appearance. She is well-developed, well-groomed and overweight. HENT: Head: Normocephalic and atraumatic. Right Ear: Hearing normal. Left Ear: Hearing normal. Eyes: Conjunctiva/sclera: Conjunctivae normal. Comments: Wearing glasses Musculoskeletal: Comments: The patient walks with a normal gait. There is tenderness to palpation in the cervical and lumbar region with spasms noted in the trapezius and paraspinal muscles. She has tenderness noted over the right SI joint Strength is 5/5 throughout. Sensation is intact to light touch throughout. SLR is negative. She has tenderness to palpation in the knees bilaterally. Shoulder ROM is intact. Neurological: Mental Status: She is alert and oriented to person, place, and time. Psychiatric: Attention and Perception: Attention and perception normal. Mood and Affect: Mood and affect normal. Speech: Speech normal. Behavior: Behavior normal. Behavior is cooperative. Thought Content: Thought content normal. Judgment: Judgment normal. Assessment and Plan ASSESSMENT/PLAN: 1. Fibromyalgia - ICD9: 729.1, ICD10: M79.7 (primary diagnosis) The OARRS report has been reviewed and is consistent with the patients medical history and medication intake. The patient's most recent urine drug screen has been reviewed and is appropriate and consistent with current therapy. Continue with belbuca, gabapentin, metaxalone, meloxicam, and diclofenac gel Continue using TENS unit. Continue doing your yoga and strengthening exercises, but make sure you give your body a chance to rest. FU in the office in [address] Velazco. Continue with the kinesiology tape/roller ball on the feet. 2. Primary osteoarthritis of both knees - ICD9: 715.16, ICD10: M17.0 3. Sacroiliitis (HCC) - ICD9: 720.2, ICD10: M46.1 4. Generalized anxiety disorder - ICD9: 300.02, ICD10: F41.1 5. Subacromial bursitis of both shoulders - ICD9: 726.19, ICD10: M75.51, M75.52 Freeman Sarabia PA-C documented in this encounterMer[facility] Miscellaneous Notes* Telephone Encounter - Viki Kumar RN - 09/21/2022 3:45 PM EST Pt called and is notified of providers results and instructions. Pt voices understanding. Viki Kumar RN * Telephone Encounter - Torres Yao MD - 09/21/2022 3:28 PM EST Cholesterol is actually better. Potassium is borderline low. Given that she is now on spironolactone. Lets just recheck potassium in a few weeks. Arthritis studies are overall ok. Binta is minimally up. It is usually not significant at this level. documented in this encounterMer[facility]11-18-2022 Miscellaneous Notes* Telephone Encounter - Freeman Sarabia PA-C - 09/16/2022 12:11 PM EST The following approved medication requests have been transmitted electronically. Requested Prescriptions Pending Prescriptions Disp Refills buprenorphine (BELBUCA) 150 mcg buccal film 60 Film 0 Sig: Place 1 Film between cheek and gum q 12 HR for 30 days. Do not start before September 21, 2022. Freeman Sarabia PA-C * Telephone Encounter - Kristal Luo RN - 09/16/2022 11:29 AM EST Patient phones requesting refills as follows: Requested Prescriptions Pending Prescriptions Disp Refills buprenorphine (BELBUCA) 150 mcg buccal film 60 Film 0 Sig: Place 1 Film between cheek and gum q 12 HR for 30 days. Do not start before September 21, 2022. Please review and advise. Kristal Luo RN documented in this encounterMercy [facility]11-17-2022 Hospital Discharge instructions* Discharge Instr - Other Orders* Min Velazco MD - 09/15/2022 10:55 AM EST Post-procedure instructions: 1. Rest today. You may feel drowsy the rest of the day. Avoid excessive bending, walking, and lifting. Resume your normal activities tomorrow. 2. Remove Band-Aid tomorrow. 3. Resume your current medications. If you are on any blood thinners or any other medications you were told to stop before your procedure, you may continue those tomorrow. 4. If you received oral sedation, no driving or alcohol for 24 hours. 5. You may shower, but no tub baths for 24 hours. 6. If you are diabetic, check your sugar for the next 5 days as the steroid may elevate you sugar. Call your medical doctor if you sugar is elevated. Before your next injection: (also refer to your pre-procedure checklist given to you when you scheduled your first injection) 1. Stop all blood thinners as you were directed. If you are unsure, please call our office for clarification. 2. If you were prescribed Valium prior to the procedure or if you are to receive oral sedation, youmay eat as you normally would, but you do need a van driver helper. Additional Instructions: documented in this encounterMercy [facility]11-17-2022 Surgical operation note* Operative Report - Min Velazco MD - 09/15/2022 10:54 AM EST Summary: Bilateral subacromial bursae injection Subacromial Bursa Injection PROCEDURE: Bilateral subacromial bursae injection CPT code: 59706-97 PREPROCEDURE DIAGNOSIS: subacromial bursitis POSTPROCEDURE DIAGNOSIS: same ANESTHESIA: none PROCEDURE REPORT: The risks and benefits of the procedure were explained to the patient and all questions were answered. The patient gave consent to proceed with the procedure. The skin was sterilely prepped. A 25G 38mm needle was advanced to the point of greatest tenderness around the right subacromial/subdeltoid bursa. 40 mg of Depo-Medrol diluted to a total volume of 5 mL with bupivacaine 0.25% was then injected. The needle was withdrawn intact. A similar procedure was performed on the left side. The patient tolerated the procedure well with no complications noted. SIGNATURE: Min Velazco MD PATIENT NAME: Sheila Crowe DATE: September 15, 2022 TIME: 10:55 AM documented in this encounterMer[facility]11-03-2022 Instructions* Patient Instructions* Freeman Sarabia PA-C - 09/01/2022 2:13 PM EDT The OARRS report has been reviewed and is consistent with the patients medical history and medication intake. The patient underwent a random UDS at today's office visit. Continue with belbuca, gabapentin, metaxalone, meloxicam, and diclofenac gel Continue using TENS unit. Continue doing your yoga and strengthening exercises, but make sure you give your body a chance to rest. FU in the office in 6 weeks. Continue with the kinesiology tape on the feet. Schedule bilateral subacromial bursa cortisone injections x 1 visits. If that is not beneficial, weshon then pursue x-rays. I discussed the patient with Dr. Velazco who agrees with my assessment and plan. All of the above is to improve functionality and quality of life. No evidence of drug abuse or diversion is seen at this time. Procedure to be done: Joint Injection - bilateral subacromial bursa cortisone injections x 1 visit. A van driver helper is required: No Oral Sedation is requested : No If you are receiving oral sedation, you may eat a light meal. Clothing to wear: Back injections - elastic waist/jogging pants Neck injections - wide neck or button down shirt; please do not wear neck jewelry Plan to take it easy the rest of the day following your procedure. You may resume normal [id number] hours following your procedure or as otherwise instructed. Special Instructions - NONE documented in this encounterMercy [facility]11-03-2022 History of Present illness Narrative* Freeman Sarabia PA-C - 09/01/2022 2:00 PM EDT This note was created using [email or web address] Subjective Sheila Crowe is a 41 year old female. The patient primarily being seen for generalized pain Patient was last seen on: 07/20/22 At that time, the treatment plan was: see notes Current Meds: Belbuca - last dose this am, Gabapentin & Meloxicam - this am Efficacy: helps, but still having a lot of pain in shoulders Side effects: none TENS unit: yes How often used: 5 days weekly Benefit: helps Physical Therapy: none Last UDS: 09/01/22 Last injection: 09/10/19 - TPI OARRS reviewed At the present time, the patient reports benefit with her present analgesic therapy. She denies anyadverse effects. Since her previous visit, she denies any hospitalizations or ER visits. She has been having some issues with pain in her shoulders and may discuss this with her PCP because they had mentioned referring her to a insurance assistant in the past. The pain has been worse in the past month. She denies any injuries. INTAKE PAIN ASSESSMENT 07/20/2022 09/01/2022 Are you having pain associated with your visit today? Yes, Provider notified Yes, Provider notified Pain Scales Verbal (Numeric Rating or Visual Analog Scale) Verbal (Numeric Rating or Visual Analog Scale) Pain Level 3 5 Pain Location Generalized Generalized Description Aching;Dull;Sharp;Stabbing Sharp;Radiating;Shooting Duration Amount of Time - - Duration Units Years Years Frequency Continuous Continuous Intervention/Comfort measure Medication;Massage Medication;Cold;Massage;Relaxation Comments stretches daily help pain stretching helps HPI Review of Systems Constitutional: Negative for fever and unexpected weight change. Musculoskeletal: +back pain, joint pain, muscle cramps/weakness, stiffness, arthritis, and leg pain with exertion. PAST MEDICAL HISTORY Diagnosis Date Allergic rhinitis due to other allergen Bipolar I disorder, most recent episode (or current) unspecified hosp 04 mutile suicide attempts/Dr. Jenkins Hypercalcemia Migraine without aura Morbid obesity (HCC) stated BMI HT: 68 WT: 375 Myalgia and myositis, unspecified Other specified cardiac dysrhythmias(427.89) PMH - PAST MEDICAL HISTORY OF MONO Unspecified essential hypertension PAST SURGICAL HISTORY Procedure Laterality Date ADENOIDECTOMY PRIMARY <AGE 11 1994 Adenoidectomy COLONOSCOPY W/BIOPSY SINGLE/MULTIPLE 12/23/2019 EXTRACTION, ERUPTED TOOTH OR EXPOSED ROOT (ELEVATION AND/OR FORCEPS REMOVAL) 1995 [place] teeth TONSILLECTOMY PRIMARY/SECONDARY <AGE 11 1994 Tonsillectomy Social History Tobacco Use Smoking status: Former Packs/day: 0.50 Types: Cigarettes Quit date: 06/16/2008 Years since quittin.2 Smokeless tobacco: Never Vaping Use Vaping Use: Never used Substance Use Topics Alcohol use: No Drug use: No Objective BP 119/73 (BP Site: Left Arm, BP Position: Sitting, BP Cuff Size: Large Adult) Pulse 73 Temp 36.2 C (97.2 F) (Temporal) Resp 20 Ht 172.7 cm (5' 8) Wt 89.8 kg (198 lb) LMP 07/08/2020 (Approximate) SpO2 100% BMI 30.11 kg/m Physical Exam Vitals and nursing note reviewed. Constitutional: Appearance: Normal appearance. She is well-developed, well-groomed and overweight. HENT: Head: Normocephalic and atraumatic. Right Ear: Hearing normal. Left Ear: Hearing normal. Eyes: Conjunctiva/sclera: Conjunctivae normal. Comments: Wearing glasses Musculoskeletal: Comments: The patient walks with a normal gait. There is tenderness to palpation in the cervical and lumbar region with spasms noted in the trapezius and paraspinal muscles. She has tenderness noted over the right SI joint Strength is 5/5 throughout. Sensation is intact to light touch throughout. SLR is negative. She has tenderness to palpation in the knees bilaterally. Shoulder ROM is intact. She has tenderness to palpation over the bilateral subacromial bursas. Neurological: Mental Status: She is alert and oriented to person, place, and time. Psychiatric: Attention and Perception: Attention and perception normal. Mood and Affect: Mood and affect normal. Speech: Speech normal. Behavior: Behavior normal. Behavior is cooperative. Thought Content: Thought content normal. Judgment: Judgment normal. Assessment and Plan ASSESSMENT/PLAN: 1. Fibromyalgia - ICD9: 729.1, ICD10: M79.7 (primary diagnosis) The OARRS report has been reviewed and is consistent with the patients medical history and medication intake. The patient underwent a random UDS at today's office visit. Continue with belbuca, gabapentin, metaxalone, meloxicam, and diclofenac gel Continue using TENS unit. Continue doing your yoga and strengthening exercises, but make sure you give your body a chance to rest. FU in the office in 6 weeks. Continue with the kinesiology tape on the feet. Schedule bilateral subacromial bursa cortisone injections x 1 visits. If that is not beneficial, wegriffinll then pursue x-rays. 2. Primary osteoarthritis of both knees - ICD9: 715.16, ICD10: M17.0 - DRUG SCR TOXASURE - GABAPENTIN 600 MG TABLET 3. Generalized anxiety disorder - ICD9: 300.02, ICD10: F41.1 4. Sacroiliitis (HCC) - ICD9: 720.2, ICD10: M46.1 5. 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 - ICD9: V58.69, ICD10: Z79.899 - DRUG SCR TOXASURE 6. Subacromial bursitis of both shoulders - ICD9: 726.19, ICD10: M75.51, M75.52 Freeman Sarabia PA-C documented in this encounterMer[facility]10-20-2022 Miscellaneous Notes* Telephone Encounter - Kristal Luo RN - 08/18/2022 3:45 PM EDT Patient phones requesting refills as follows: Requested Prescriptions Pending Prescriptions Disp Refills buprenorphine (BELBUCA) 150 mcg buccal film 60 Film 0 Sig: Place 1 Film between cheek and gum q 12 HR for 30 days. Do not start before August 22, 2022. Please review and advise. Kristal Luo RN documented in this encounterMer[facility]09-21-2022 Instructions* Patient Instructions* Freeman Sarabia PA-C - 07/20/2022 2:37 PM EDT The OARRS report has been reviewed and is consistent with the patients medical history and medication intake. Continue with belbuca, gabapentin, metaxalone, meloxicam, and diclofenac gel Continue using TENS unit. Continue doing your yoga and strengthening exercises, but make sure you give your body a chance to rest. FU in the office in 6 weeks. Continue with the kinesiology tape. I discussed the patient with Dr. Velazco who agrees with my assessment and plan. All of the above is to improve functionality and quality of life. No evidence of drug abuse or diversion is seen at this time. documented in this encounterMer[facility]09-21-2022 History of Present illness Narrative* Freeman Sarabia PA-C - 07/20/2022 1:45 PM EDT This note was created using NoteWriter. Subjective Sheila Crowe is a 41 year old female. The patient primarily being seen for generalized pain Patient was last seen on: 06/09/22 At that time, the treatment plan was: see notes Current Meds: Belbuca - last dose this am, Gabapentin - this am, Meloxicam - couple days ago Efficacy: help Side effects: none TENS unit: yes How often used: not using much - Benefit: Physical Therapy: none Last UDS: 03/02/22 Last injection: 09/10/19 - TPI OARRS reviewed At the present time, the patient reports benefit with her present analgesic therapy. She denies anyadverse effects. Since her previous visit, she denies any hospitalizations or ER visits. She is using kinesiology tape on her feet which has helped her walk better. INTAKE PAIN ASSESSMENT 06/09/2022 07/20/2022 Are you having pain associated with your visit today? Yes, Provider notified Yes, Provider notified Pain Scales Verbal (Numeric Rating or Visual Analog Scale) Verbal (Numeric Rating or Visual Analog Scale) Pain Level 4 3 Pain Location Generalized Generalized Description Aching;Dull;Burning;Sharp Aching;Dull;Sharp;Stabbing Duration Amount of Time - - Duration Units Years Years Frequency Continuous Continuous Intervention/Comfort measure Medication;Massage Medication;Massage Comments stretching, roll ball to help plantar fasciitis stretches daily help pain HPI Review of Systems Constitutional: Negative for fever and unexpected weight change. Musculoskeletal: +back/joint pain, muscle cramps/weakness, stiffness, arthritis, and leg pain with exertion. PAST MEDICAL HISTORY Diagnosis Date Allergic rhinitis due to other allergen Bipolar I disorder, most recent episode (or current) unspecified hosp 04 mutile suicide attempts/Dr. Jenkins Hypercalcemia Migraine without aura Morbid obesity (HCC) stated BMI HT: 68 WT: 375 Myalgia and myositis, unspecified Other specified cardiac dysrhythmias(427.89) PMH - PAST MEDICAL HISTORY OF MONO Unspecified essential hypertension PAST SURGICAL HISTORY Procedure Laterality Date ADENOIDECTOMY PRIMARY <AGE 11 1994 Adenoidectomy COLONOSCOPY W/BIOPSY SINGLE/MULTIPLE 12/23/2019 EXTRACTION, ERUPTED TOOTH OR EXPOSED ROOT (ELEVATION AND/OR FORCEPS REMOVAL) 1995 [place] teeth TONSILLECTOMY PRIMARY/SECONDARY <AGE 11 1994 Tonsillectomy Social History Tobacco Use Smoking status: Former Packs/day: 0.50 Types: Cigarettes Quit date: 06/16/2008 Years since quittin.1 Smokeless tobacco: Never Vaping Use Vaping Use: Never used Substance Use Topics Alcohol use: No Drug use: No Objective BP 103/64 (BP Site: Left Arm, BP Position: Sitting, BP Cuff Size: Large Adult) Pulse 63 Temp 36.1 C (96.9 F) (Temporal) Resp 20 Ht 172.7 cm (5' 8) Wt 89.8 kg (198 lb) LMP 07/08/2020 (Approximate) SpO2 99% BMI 30.11 kg/m Physical Exam Vitals and nursing note reviewed. Constitutional: Appearance: Normal appearance. She is well-developed, well-groomed and overweight. HENT: Head: Normocephalic and atraumatic. Right Ear: Hearing normal. Left Ear: Hearing normal. Eyes: Conjunctiva/sclera: Conjunctivae normal. Comments: Wearing glasses Musculoskeletal: Comments: The patient walks with a normal gait. There is tenderness to palpation in the cervical and lumbar region with spasms noted in the trapezius and paraspinal muscles. She has tenderness noted over the right SI joint Strength is 5/5 throughout. Sensation is intact to light touch throughout. SLR is negative. She has tenderness to palpation in the knees bilaterally. Neurological: Mental Status: She is alert and oriented to person, place, and time. Psychiatric: Attention and Perception: Attention and perception normal. Mood and Affect: Mood and affect normal. Speech: Speech normal. Behavior: Behavior normal. Behavior is cooperative. Thought Content: Thought content normal. Judgment: Judgment normal. Assessment and Plan ASSESSMENT/PLAN: 1. Primary osteoarthritis of both knees - ICD9: 715.16, ICD10: M17.0 (primary diagnosis) The OARRS report has been reviewed and is consistent with the patients medical history and medication intake. Continue with belbuca, gabapentin, metaxalone, meloxicam, and diclofenac gel Continue using TENS unit. Continue doing your yoga and strengthening exercises, but make sure you give your body a chance to rest. FU in the office in 6 weeks. Continue with the kinesiology tape. - BUPRENORPHINE HCL 150 MCG BUCCAL FILM - MELOXICAM 15 MG TABLET 2. Fibromyalgia - ICD9: 729.1, ICD10: M79.7 3. Generalized anxiety disorder - ICD9: 300.02, ICD10: F41.1 4. Sacroiliitis (HCC) - ICD9: 720.2, ICD10: M46.1 Freeman Sarabia PA-C documented in this encounterMer[facility]08-22-2022 Miscellaneous Notes* Telephone Encounter - Freeman Sarabia PA-C - 06/20/2022 3:32 PM EDT The following approved medication requests have been transmitted electronically. Requested Prescriptions Pending Prescriptions Disp Refills buprenorphine (BELBUCA) 150 mcg buccal film 60 Film 0 Sig: Place 1 Film between cheek and gum q 12 HR for 30 days. Do not start before June 23, 2022. Freeman Sarabia PA-C * Telephone Encounter - Kristal Luo RN - 06/20/2022 2:50 PM EDT Patient phones requesting refills as follows: Requested Prescriptions Pending Prescriptions Disp Refills buprenorphine (BELBUCA) 150 mcg buccal film 60 Film 0 Sig: Place 1 Film between cheek and gum q 12 HR for 30 days. Do not start before June 23, 2022. Kristal Luo RN documented in this encounterMercy [facility]08-11-2022 Instructions* Patient Instructions* Freeman Sarabia PA-C - 06/09/2022 1:55 PM EDT The OARRS report has been reviewed and is consistent with the patients medical history and medication intake.Continue with belbuca, gabapentin, metaxalone, meloxicam, and diclofenac gel Continue using TENS unit. Continue doing your yoga and strengthening exercises, but make sure you give your body a chance to rest. FU in the office in 6 weeks. I discussed the patient with Dr. Velazco who agrees with my assessment and plan. All of the above is to improve functionality and quality of life. No evidence of drug abuse or diversion is seen at this time. documented in this encounterMercy [facility]08-11-2022 History of Present illness Narrative* Freeman Sarabia PA-C - 06/09/2022 1:45 PM EDT This note was created using [email or web address]. Subjective Sheila Crowe is a 41 year old female. The patient primarily being seen for generalized pain Patient was last seen on: 04/21/22 At that time, the treatment plan was: see notes Current Meds: Belbuca - last dose this am, Gabapentin - this am, Meloxicam - yesterday Efficacy: help Side effects: none TENS unit: yes How often used: couple times weekly Benefit: helps when used on mid back Physical Therapy: none Last UDS: 03/02/22 Last injection: 09/10/19 - TPI OARRS reviewed At the present time, the patient reports benefit with her present analgesic therapy. She denies anyadverse effects. Since her previous visit, she denies any hospitalizations or ER visits. She statesthat the right SI joint has improved. She continues to use the foam roller on her lower back. INTAKE PAIN ASSESSMENT 04/21/2022 06/09/2022 Are you having pain associated with your visit today? Yes, Provider notified Yes, Provider notified Pain Scales Verbal (Numeric Rating or Visual Analog Scale) Verbal (Numeric Rating or Visual Analog Scale) Pain Level 5 4 Pain Location Back Generalized Description Sharp;Shooting Aching;Dull;Burning;Sharp Duration Amount of Time - - Duration Units - Years Frequency Continuous Continuous Intervention/Comfort measure Medication;Exercise Medication;Massage Comments stretching stretching, roll ball to help plantar fasciitis HPI Review of Systems Constitutional: Negative for fever and unexpected weight change. Musculoskeletal: +back/joint pain, muscle cramps/weakness, stiffness, arthritis, and leg pain with exertion. PAST MEDICAL HISTORY Diagnosis Date Allergic rhinitis due to other allergen Bipolar I disorder, most recent episode (or current) unspecified hosp 04 mutile suicide attempts/Dr. Gregory Hypercalcemia Migraine without aura Morbid obesity (HCC) stated BMI HT: 68 WT: 375 Myalgia and myositis, unspecified Other specified cardiac dysrhythmias(427.89) PMH - PAST MEDICAL HISTORY OF MONO Unspecified essential hypertension PAST SURGICAL HISTORY Procedure Laterality Date ADENOIDECTOMY PRIMARY <AGE 11 1994 Adenoidectomy COLONOSCOPY W/BIOPSY SINGLE/MULTIPLE 12/23/2019 EXTRACTION, ERUPTED TOOTH OR EXPOSED ROOT (ELEVATION AND/OR FORCEPS REMOVAL) 1995 [place] teeth TONSILLECTOMY PRIMARY/SECONDARY <AGE 11 1994 Tonsillectomy Social History Tobacco Use Smoking status: Former Packs/day: 0.50 Types: Cigarettes Quit date: 06/16/2008 Years since quittin.9 Smokeless tobacco: Never Vaping Use Vaping Use: Never used Substance Use Topics Alcohol use: No Drug use: No Objective BP 105/67 (BP Site: Left Arm, BP Position: Sitting, BP Cuff Size: Large Adult) Pulse 61 Temp 36.2 C (97.2 F) (Temporal) Resp 20 Ht 172.7 cm (5' 8) Wt 89.8 kg (198 lb) LMP 07/08/2020 (Approximate) SpO2 98% BMI 30.11 kg/m Physical Exam Vitals and nursing note reviewed. Constitutional: Appearance: Normal appearance. She is well-developed, well-groomed and overweight. HENT: Head: Normocephalic and atraumatic. Right Ear: Hearing normal. Left Ear: Hearing normal. Eyes: Conjunctiva/sclera: Conjunctivae normal. Comments: Wearing glasses Musculoskeletal: Comments: The patient walks with a normal gait. There is tenderness to palpation in the cervical and lumbar region with spasms noted in the trapezius and paraspinal muscles. She has tenderness noted over the right SI joint Strength is 5/5 throughout. Sensation is intact to light touch throughout. SLR is negative. She has tenderness to palpation in the knees bilaterally. Neurological: Mental Status: She is alert and oriented to person, place, and time. Psychiatric: Attention and Perception: Attention and perception normal. Mood and Affect: Mood and affect normal. Speech: Speech normal. Behavior: Behavior normal. Behavior is cooperative. Thought Content: Thought content normal. Cognition and Memory: Cognition and memory normal. Judgment: Judgment normal. Assessment and Plan ASSESSMENT/PLAN: 1. Fibromyalgia - ICD9: 729.1, ICD10: M79.7 (primary diagnosis) The OARRS report has been reviewed and is consistent with the patients medical history and medication intake.Continue with belbuca, gabapentin, metaxalone, meloxicam, and diclofenac gel Continue using TENS unit. Continue doing your yoga and strengthening exercises, but make sure you give your body a chance to rest. FU in the office in 6 weeks. 2. Primary osteoarthritis of both knees - ICD9: 715.16, ICD10: M17.0 3. Generalized anxiety disorder - ICD9: 300.02, ICD10: F41.1 4. Sacroiliitis (HCC) - ICD9: 720.2, ICD10: M46.1 Freeman Sarabia PA-C documented in this encounter[facility] Miscellaneous Notes* Telephone Encounter - Freeman Sarabia PA-C - 05/19/2022 3:36 PM EDT The following approved medication requests have been transmitted electronically. Pending Prescriptions Disp Refills BUPRENORPHINE HCL 150 MCG BUCCAL FILM 60 Film 0 Sig: Place 1 Film between cheek and gum q 12 HR for 30 days. Do not start before May 24, 2022. DANYELL Class: C-III PEDRO: No Refused Prescriptions Disp Refills gabapentin (NEURONTIN) 600 mg tablet [Pharmacy Med Name: GABAPENTIN 600 MG TABLET] 120 tablet Sig: take 1 tablet by mouth four times a day as directed PEDRO: No Refused By: KRISTAL LUO Reason for Refusal: Patient should contact Prescriber first Freeman Sarabia PA-C * Telephone Encounter - Kristal Luo RN - 05/19/2022 2:19 PM EDT Patient phones requesting refills as follows: Pending Prescriptions Disp Refills BUPRENORPHINE HCL 150 MCG BUCCAL FILM 60 Film 0 Sig: Place 1 Film between cheek and gum q 12 HR for 30 days. Do not start before May 24, 2022. DANYELL Class: C-III PEDRO: No Refused Prescriptions Disp Refills gabapentin (NEURONTIN) 600 mg tablet [Pharmacy Med Name: GABAPENTIN 600 MG TABLET] 120 tablet Sig: take 1 tablet by mouth four times a day as directed PEDRO: No Refused By: KRISTAL LUO Reason for Refusal: Patient should contact Prescriber first Please review and advise. Kristal Luo RN documented in this encounterMer[facility]07-11-2022 Miscellaneous Notes* Telephone Encounter - Kristal Luo RN - 05/09/2022 1:59 PM EDT Patient phones requesting refills as follows: Pending Prescriptions Disp Refills GABAPENTIN 600 MG TABLET 120 tablet 3 Sig: Take 1 tablet by mouth four times daily for 30 days. PEDRO: No Please review and advise. Kristal Luo RN documented in this encounterMer[facility]05-09-2022 History of Present illness Narrative* Torres Yao MD - 03/07/2022 1:51 PM EDT Patient presents with: 6 Month Exam: needs new glucometer order today HPI: Patient presents today for office visit for follow up. Has been having more fatigue recently. They did adjust her sleep meds and changed her to aldactone instead of lasix. Cardiology had made the change based on questions from dermatology to use on her for skin issues. DM:no longer checks sugars. Her diet has been good. No polydipsia. PSYCH:still seeing psychiatry. CHRONIC Pain:still seeing pain management. Exercises aggressively. MEDICATIONS: Current Outpatient Medications Medication Sig spironolactone (ALDACTONE) 25 mg tablet Take 25 mg by mouth twice daily. zolpidem (AMBIEN) 10 mg Take 10 mg by mouth daily at bedtime. meloxicam (MOBIC) 15 mg tablet Take 7.5-15 mg by mouth once daily as needed. ziprasidone (GEODON) 20 mg capsule Take 20 mg by mouth twice daily with meals. ziprasidone (GEODON) 60 mg capsule Take 60 mg by mouth once daily. topiramate (TOPAMAX) 100 mg tablet Take 100 mg by mouth once daily. topiramate (TOPAMAX) 200 mg tablet Take 400 mg by mouth once daily. gabapentin (NEURONTIN) 600 mg tablet Take 600 mg by mouth four times daily. valbenazine (INGREZZA) 80 mg cap Take 80 mg by mouth once daily. buprenorphine HCl (BELBUCA) [address] 150 mcg between cheek and gum q 12 HR. benztropine (COGENTIN) 2 mg tablet Take 2 mg by mouth four times daily. losartan (COZAAR) 25 mg tablet Take 25 mg by mouth twice daily. lamotrigine (LAMICTAL) 200 mg ORAL tablet Take 400 mg by mouth once daily. Lancets lancets Test blood sugar(s) 1 x daily. Dx: uncontrolled diabetes (250.02). Insulin: Yes blood sugar diagnostic (ONETOUCH VERIO TEST STRIPS) test strip testing 1 times daily - dx E11.9 - Insulin: Yes metaxalone (SKELAXIN) 800 mg tablet Take 800 mg by mouth three times daily. traZODone (DESYREL) 100 mg tablet Take 1 tablet by mouth daily at bedtime. DAILY MULTI-VITAMIN ORAL Take 1 tablet by mouth once daily. No current facility-administered medications for this visit. ALLERGIES: ALLERGIES Allergen Reactions Clindamycin Diarrhea Hives, cramping Levaquin [Levofloxa* Swelling Penicillins Rash Zithromax [Azithrom* Itching PAST MEDICAL HISTORY Diagnosis Date Allergic rhinitis due to other allergen Bipolar I disorder, most recent episode (or current) unspecified hosp 04 mutile suicide attempts/Dr. Jenkins Hypercalcemia Migraine without aura Morbid obesity (HCC) stated BMI HT: 68 WT: 375 Myalgia and myositis, unspecified Other specified cardiac dysrhythmias(427.89) PMH - PAST MEDICAL HISTORY OF MONO Unspecified essential hypertension PAST SURGICAL HISTORY Procedure Laterality Date ADENOIDECTOMY PRIMARY <AGE 11 1994 Adenoidectomy COLONOSCOPY W/BIOPSY SINGLE/MULTIPLE 12/23/2019 EXTRACTION, ERUPTED TOOTH OR EXPOSED ROOT (ELEVATION AND/OR FORCEPS REMOVAL) 1995 [place] teeth TONSILLECTOMY PRIMARY/SECONDARY <AGE 11 1994 Tonsillectomy FAMILY HISTORY Problem Relation Age of Onset Rheumatologic disease Mother other (stiff persons disease) Father other (autoimmune disorder) Father Diabetes Brother Type 1, age 40 Diabetes Maternal Grandmother Diabetes Paternal Grandmother Heart Paternal Grandmother Social History Tobacco Use Smoking status: Former Smoker Packs/day: 0.50 Types: Cigarettes Quit date: 06/16/2008 Years since quittin.7 Smokeless tobacco: Never Used Vaping Use Vaping Use: Never used Substance Use Topics Alcohol use: No Drug use: No Reviewed current medications, allergies, past medical history, surgical history, family history andsocial history today. REVIEW OF SYSTEMS All other reviewed and negative other than HPI. HEALTH MAINTENANCE: Reviewed health maintenance issues today and recommended the following in detail. DILATED RETINAL EXAM -appt on URINE ALBUMIN:CREATININE RATIO due on 02/24/2022 VITALS: BP 108/70 Pulse 76 Wt 89.8 kg (198 lb) LMP 07/08/2020 (Approximate) BMI 29.24 kg/m Last 4 Encounter Wt Readings: Date: Wt: 03/07/2022 89.8 kg (198 lb) 09/06/2021 93 kg (205 lb) 03/05/2021 95.7 kg (211 lb) 07/27/2020 106.1 kg (234 lb) PHYSICAL EXAMINATION: General appearance: Well appearing, alert, in no acute distress, well-hydrated, well nourished. Skin: Skin color, texture, turgor normal, no suspicious rashes or lesions Head: Normocephalic, no masses, lesions, tenderness or abnormalities Neck: Supple, no adenopathy; thyroid symmetric, normal size, no bruits Lungs: Lungs clear to auscultation. No wheezing, rhonchi, rales Heart: RRR without murmur, gallop, or rubs. No ectopy Abdomen: Normal abdominal exam, Abdomen soft, non-tender. Bowel sounds normal. No masses, organomegaly Extremities: No deformities, edema, skin discoloration, clubbing or cyanosis. Good capillary refill. Musculoskeletal: No joint swelling, deformity, or tenderness ASSESSMENT/PLAN: 1. Type 2 diabetes mellitus without complication, with long-term current use of insulin (HCC) - ICD9: 250.00, V58.67, ICD10: E11.9, Z79.4 (primary diagnosis) - Check labs. - HGB A1C - BASIC METABOLIC PNL 2. Bipolar I disorder (HCC) - ICD9: 296.7, ICD10: F31.9 - stable. 3. Essential hypertension, benign - ICD9: 401.1, ICD10: I10 - good control - Continue current medication(s) - Goal of BP <130/80 4. Fibromyalgia - ICD9: 729.1, ICD10: M79.7 - continue to follow progress. 5. Acne, unspecified acne type - ICD9: 706.1, ICD10: L70.9 - stable. - BASIC METABOLIC PNL Torres Yao RTO in six months and prn. documented in this encounterMer[facility]04-04-2022 Miscellaneous Notes* Telephone Encounter - Adiel Miller MA - 01/31/2022 4:53 PM EDT Patient notified and voiced understanding. Adiel Miller MA * Telephone Encounter - Torres Yao MD - 01/31/2022 4:34 PM EDT rx sent * Telephone Encounter - Gina Schultz RN - 01/31/2022 3:24 PM EDT Patient calls and states that her glucometer has quit working. Patient states that she has had thisfor over 8 years. Patient asking if provider can write her a new prescription for a new glucometer.Patient currently has a one touch verio. Please review and advise, Gina Schultz RN documented in this encounterMer[facility]03-12-2022 Hospital Discharge instructions Patient Education 01/08/2022 20:18:09 LACERATION, Extremity (Dermabond) Laceration (Skin Glue) A laceration is a cut through the skin. You have a laceration that has been closed with a type of skin glue. Home Care Medications: Acetaminophen (Tylenol) or ibuprofen (Motrin, Advil) may be taken for pain, unless another pain medicine was prescribed. NOTE: If you have chronic liver or kidney disease or ever had a stomach ulcer or GI bleeding, talk with your doctor before using these medications. General Care: Keep the wound clean and dry. You may shower or bathe as usual, but do not use soaps, lotions, or ointments on the wound area. Do not scrub the wound. After bathing, pat the wound dry with a soft towel. If a bandage was applied and it becomes wet or dirty, replace it. Otherwise, change the bandage every 24 hours. Do not scratch, rub, or pick at the film. Do not place tape directly over the film. Do not apply liquids (such as peroxide), ointments, or creams to the wound while the film is in place. Most skin wounds heal without problems. However, an infection sometimes occurs despite proper treatment. Therefore, watch for the signs of infection listed below. Follow Up as directed by the doctor or our staff. The skin glue film will fall off naturally in 5 to 10 days. Get Prompt Medical Attention if any of the following occur: Signs of infection: Fever of 100.4 F (38 C) or higher, or as directed by your healthcare provider Increasing pain in the wound Increasing redness or swelling Pus coming from the wound Wound bleeds more than a small amount or bleeding doesn t stop Wound edges come apart You feel numbness or weakness in the wound area that doesn t go away [id number] [employer]. [address] [place] [address], [place] [address]. All rights reserved. This information is not intended as a substitute for professional medical care. Always follow yourhealthcare professional's instructions. Follow Up Care 01/08/2022 19:56:41 With:TORRES YAO MD, [facility], [facility] Address: [facility] [address] [place] [id number]- When:2-4 days [facility] 10-15-[facility]21 Hospital Discharge instructions Patient Education 08/13/2021 14:52:00 Insomnia Insomnia Insomnia is repeated difficulty going to sleep or staying asleep, or both. Whether you have insomnia is not defined by a specific amount of sleep. Different people need different amounts of sleep, and you may need more or less sleep at different times of your life. There are 3 major types of insomnia: short-term, chronic, and other. Short-term, or acute insomnia lasts less than 3 months. The symptoms are temporary and can be linked directly to a stressor, such as the of a loved one, financial problems, or a new physical problem. Short-term insomnia stops when the stressor resolves or the person adapts to its presence. Chronic insomnia occurs at least 3 times a week and lasts longer than 3 months. Chronic insomnia can occur when either the cause of the sleeping problem is not clear, or the insomnia does not get better when the stressor is resolved. A number of other criteria are also used to make the diagnosis ofchronic insomnia. Other insomnia is the third type of insomnia-related sleep disorders. This description applies to people who have problems getting to sleep or staying asleep, but don't meet all of the factors that describe either short-term or chronic insomnia. Many things cause insomnia. Different people may have different causes. It can be from an underlying medical or psychological condition, or lifestyle. It can also be primary insomnia, which means no cause can be found. Causes of insomnia include: Chronic medical problems- heart disease, gastrointestinal problems, hormonal changes, breathing problems Anxiety Stress Depression Pain Work schedule Sleep apnea Illegal drugs Certain medicines Many different medicines can affect your sleep, such as stimulants, caffeine, alcohol, some decongestants, and diet pills. Other medicines may include some types of blood pressure pills, steroids, asthma medicines, antihistamines, antidepressants, seizure medicines and statins. Not all of these will affect your sleep, and they shouldn t be stopped without talking to your doctor. Symptoms of insomnia can include: Lying awake for long periods at night before falling asleep Waking up several times during the night Waking up early in the morning and not being able to get back to sleep Feeling tired and not refreshed by sleep Not being able to function properly during the day and finding it hard to concentrate Irritability Tiredness and fatigue during the day Home care Review your medicines with your doctor or pharmacist to find out if they can cause insomnia. Not all medicines will affect your sleep, but they shouldn't be stopped without reviewing them with your doctor. There may be serious side effects and consequences from suddenly stopping your medicines. Nottaking them may cause strokes, heart attacks, and many other problems. Caffeine, smoking, and alcohol also affect sleep. Limit your daily use and don't use these before bedtime. Alcohol may make you sleepy at first, but as its effects wear off, you may awaken a few hours later and have trouble returning to sleep. Don't exercise, eat or drink large amounts of liquid within 2 hours of your bedtime. Improve your sleep habits. Have a fixed bed and wake-up time. Try to keep noise, light and heat in your bedroom at a comfortable level. Try using earplugs or eyeshades if needed. Don't watch TV in bed. If you don't fall asleep within 30 minutes, try to relax by reading or listening to soft music. Limit daytime napping to one 30 minute period, early in the day. Get regular exercise. Find other ways to lessen your stress level. If a medicine was prescribed to help reset your sleep patterns, take it as directed. Sleeping pillsare intended for short-term use, only. If taken for too long, the effect wears off while the risk of physical addiction and psychological dependence increases. Sleep diary If the cause isn t obvious and it is not improving, try keeping a sleep diary for a couple of weeks. Include in it: The time you go to bed How long it takes to fall asleep How many times you wake up What time you wake up Your meal times and what you eat What time you drink alcohol and caffeine Your exercise habits and times Follow-up care Follow up with your healthcare provider, or as advised. If an X-ray or CT scan was done, you will be notified if there is a change in the reading, especially if it affects treatment. Call 911 Call 911 if any of these occur: Trouble breathing Confusion or trouble waking Fainting or loss of consciousness Rapid heart rate New chest, arm, shoulder, neck or upper back pain Trouble with speech or vision, weakness of an arm or leg Trouble walking or talking, loss of balance, numbness or weakness in one side of your body, facial droop When to seek medical advice Call your healthcare provider right away if any of these occur: Extreme restlessness or irritability Confusion or hallucinations (seeing or hearing things that are not there) Anxiety, depression Several days without sleeping [id number] [employer] [address] [place] [address]. All rights reserved. This information is not intended as a substitute for professional medical care. Always follow [facility] professional's instructions. 08/13/2021 14:51:56 Drug Reaction, Other Reaction to Medicine (Other Type) You are having a reaction to a medicine you have taken. This may not be the same as an allergic reaction. It is an undesired, unfavorable reaction, or a side effect of a medicine. This can cause a variety of symptoms, including: Dizziness or headache Rash Flushing or hot sensation Nausea, vomiting, or stomach pain Diarrhea or constipation Trouble breathing High or low blood pressure A reaction can be an upset stomach from something like aspirin or ibuprofen, feeling faint after taking a blood pressure medicine, feeling anxious, and many other things. Symptoms of a medicine reaction can range from very mild to very severe. In most cases, the reaction goes away within 1 to 12 hours. But it will probably occur again if youtake this same medicine. Your healthcare provider will advise you whether to change how much, when,or how often you take this medicine. He or she may also advise you to discontinue this medicine or switch to another one. Home care Another medicine may be recommended to reduce your symptoms until the medicine s effect wears off. Follow your healthcare provider s advice. When the medicine s effect has worn off, there should be no further problem as long as you don't take the same medicine again. Ask your healthcare provider if you should also avoid similar medicines. Write down the informationso you will remember it. Make certain the medicine reaction is documented in your medical record. Follow-up care Follow up with your healthcare provider, or as advised if your symptoms are not better within 24 hours. When to seek medical advice Call your healthcare provider right away if any of these occur. New symptoms that concern you Worsening of your current symptoms, including rash or facial swelling Symptoms that are not relieved by the treatment advised Fever of 100.4 F (38 C) or higher, or as advised by your healthcare provider Call 911 Call 911 if any of these occur: Trouble breathing or swallowing, or wheezing Hoarse voice or trouble speaking Confusion Extreme drowsiness or trouble awakening Fainting or loss of consciousness Rapid heart rate or slow heart rate Very low or very high blood pressure Vomiting blood, or large amounts of blood in stool Seizure [id number] [employer] [address] [place] [address], [place] [address]. All rights reserved. This information is not intended as a substitute for professional medical care. Always follow yourhealthcare professional's instructions. Follow Up Care 08/13/2021 14:28:58 With:TORRES YAO MD, [facility], [facility] Address: [facility] [address] [place] [address]- When:2-4 days [facility] History of Past illness Narrative* Problem Noted Date Diagnosed Date Resolved Date Osteoarthritis of knee 03/18/202004/12 Type II or unspecified type diabetes mellitus without mention of complication, not stated as uncontrolled 02/03/2014 08/05/2016 Type 2 diabetes mellitus in remission 10/29/2013 04/12/2023 Morbid obesity 01/01/2009 03/07/2022 Elevated blood pressure read ing without diagnosis of hypertension 11/29/2006 08/05/2016 Other acne 11/29/2006 09/06/2021 documented as of this encounter (statuses as of 05/26/2023) [facility] of Past illness Narrative* Problem Noted Date Diagnosed Date Resolved Date Osteoarthritis of knee 03/18/202004/12 Type II or unspecified type diabetes mellitus without mention of complication, not stated as uncontrolled 02/03/2014 08/05/2016 Type 2 diabetes mellitus in remission 10/29/2013 04/12/2023 Morbid obesity 01/01/2009 03/07/2022 Elevated blood pressure read ing without diagnosis of hypertension 11/29/2006 08/05/2016 Other acne 11/29/2006 09/06/2021 documented as of this encounter (statuses as of 05/31/2023) [facility] of Past illness Narrative* Problem Noted Date Diagnosed Date Resolved Date Osteoarthritis of knee 03/18/202004/12 Type II or unspecified type diabetes mellitus without mention of complication, not stated as uncontrolled 02/03/2014 08/05/2016 Type 2 diabetes mellitus in remission 10/29/2013 04/12/2023 Morbid obesity 01/01/2009 03/07/2022 Elevated blood pressure read ing without diagnosis of hypertension 11/29/2006 08/05/2016 Other acne 11/29/2006 09/06/2021 documented as of this encounter (statuses as of 06/02/2023) [address]20-2020 History of Past illness Narrative* Problem Noted Date Diagnosed Date Resolved Date Osteoarthritis of knee 03/18/202004/12 Type II or unspecified type diabetes mellitus without mention of complication, not stated as uncontrolled 02/03/2014 08/05/2016 Type 2 diabetes mellitus in remission 10/29/2013 04/12/2023 Morbid obesity 01/01/2009 03/07/2022 Elevated blood pressure read ing without diagnosis of hypertension 11/29/2006 08/05/2016 Other acne 11/29/2006 09/06/2021 documented as of this encounter (statuses as of 06/20/2023) [address]20-2020 History of Past illness Narrative* Problem Noted Date Diagnosed Date Resolved Date Osteoarthritis of knee 03/18/202004/12 Type II or unspecified type diabetes mellitus without mention of complication, not stated as uncontrolled 02/03/2014 08/05/2016 Type 2 diabetes mellitus in remission 10/29/2013 04/12/2023 Morbid obesity 01/01/2009 03/07/2022 Elevated blood pressure read ing without diagnosis of hypertension 11/29/2006 08/05/2016 Other acne 11/29/2006 09/06/2021 documented as of this encounter (statuses as of 06/27/2023) [address]20-2020 History of Past illness Narrative* Problem Noted Date Diagnosed Date Resolved Date Osteoarthritis of knee 03/18/202004/12 Type II or unspecified type diabetes mellitus without mention of complication, not stated as uncontrolled 02/03/2014 08/05/2016 Type 2 diabetes mellitus in remission 10/29/2013 04/12/2023 Morbid obesity 01/01/2009 03/07/2022 Elevated blood pressure read ing without diagnosis of hypertension 11/29/2006 08/05/2016 Other acne 11/29/2006 09/06/2021 documented as of this encounter (statuses as of 07/13/2023) [address]20-2020 History of Past illness Narrative* Problem Noted Date Diagnosed Date Resolved Date Osteoarthritis of knee 03/18/202004/12 Type II or unspecified type diabetes mellitus without mention of complication, not stated as uncontrolled 02/03/2014 08/05/2016 Type 2 diabetes mellitus in remission 10/29/2013 04/12/2023 Morbid obesity 01/01/2009 03/07/2022 Elevated blood pressure read ing without diagnosis of hypertension 11/29/2006 08/05/2016 Other acne 11/29/2006 09/06/2021 documented as of this encounter (statuses as of 07/21/2023) [facility]-20-2020 History of Past illness Narrative* Problem Noted Date Diagnosed Date Resolved Date Osteoarthritis of knee 03/18/202004/12 Type II or unspecified type diabetes mellitus without mention of complication, not stated as uncontrolled 02/03/2014 08/05/2016 Type 2 diabetes mellitus in remission 10/29/2013 04/12/2023 Morbid obesity 01/01/2009 03/07/2022 Elevated blood pressure read ing without diagnosis of hypertension 11/29/2006 08/05/2016 Other acne 11/29/2006 09/06/2021 documented as of this encounter (statuses as of 08/21/2023) [facility]20[facility]2020 History of Past illness Narrative* Problem Noted Date Diagnosed Date Resolved Date Osteoarthritis of knee 03/18/202004/12 Type II or unspecified type diabetes mellitus without mention of complication, not stated as uncontrolled 02/03/2014 08/05/2016 Type 2 diabetes mellitus in remission 10/29/2013 04/12/2023 Morbid obesity 01/01/2009 03/07/2022 Elevated blood pressure read ing without diagnosis of hypertension 11/29/2006 08/05/2016 Other acne 11/29/2006 09/06/2021 documented as of this encounter (statuses as of 08/25/2023) [facility]2020 History of Past illness Narrative* Problem Noted Date Diagnosed Date Resolved Date Osteoarthritis of knee 03/18/202004/12 Type II or unspecified type diabetes mellitus without mention of complication, not stated as uncontrolled 02/03/2014 08/05/2016 Type 2 diabetes mellitus in remission 10/29/2013 04/12/2023 Morbid obesity 01/01/2009 03/07/2022 Elevated blood pressure read ing without diagnosis of hypertension 11/29/2006 08/05/2016 Other acne 11/29/2006 09/06/2021 documented as of this encounter (statuses as of 08/26/2023) [facility]2020 History of Past illness Narrative* Problem Noted Date Diagnosed Date Resolved Date Osteoarthritis of knee 03/18/202004/12 Type II or unspecified type diabetes mellitus without mention of complication, not stated as uncontrolled 02/03/2014 08/05/2016 Type 2 diabetes mellitus in remission 10/29/2013 04/12/2023 Morbid obesity 01/01/2009 03/07/2022 Elevated blood pressure read ing without diagnosis of hypertension 11/29/2006 08/05/2016 Other acne 11/29/2006 09/06/2021 documented as of this encounter (statuses as of 08/30/2023) [facility]2020 History of Past illness Narrative* Problem Noted Date Diagnosed Date Resolved Date Osteoarthritis of knee 03/18/202004/12 Type II or unspecified type diabetes mellitus without mention of complication, not stated as uncontrolled 02/03/2014 08/05/2016 Type 2 diabetes mellitus in remission 10/29/2013 04/12/2023 Morbid obesity 01/01/2009 03/07/2022 Elevated blood pressure read ing without diagnosis of hypertension 11/29/2006 08/05/2016 Other acne 11/29/2006 09/06/2021 documented as of this encounter (statuses as of 09/03/2023) [facility]2020 History of Past illness Narrative* Problem Noted Date Diagnosed Date Resolved Date Osteoarthritis of knee 03/18/202004/12 Type II or unspecified type diabetes mellitus without mention of complication, not stated as uncontrolled 02/03/2014 08/05/2016 Type 2 diabetes mellitus in remission 10/29/2013 04/12/2023 Morbid obesity 01/01/2009 03/07/2022 Elevated blood pressure read ing without diagnosis of hypertension 11/29/2006 08/05/2016 Other acne 11/29/2006 09/06/2021 documented as of this encounter (statuses as of 09/19/2023) [facility] History of Past illness Narrative* Problem Noted Date Diagnosed Date Resolved Date Osteoarthritis of knee 03/18/202004/12 Type II or unspecified type diabetes mellitus without mention of complication, not stated as uncontrolled 02/03/2014 08/05/2016 Type 2 diabetes mellitus in remission 10/29/2013 04/12/2023 Morbid obesity 01/01/2009 03/07/2022 Elevated blood pressure read ing without diagnosis of hypertension 11/29/2006 08/05/2016 Other acne 11/29/2006 09/06/2021 documented as of this encounter (statuses as of 09/27/2023) [place] [address]-20-2020 History of Past illness Narrative* Problem Noted Date Diagnosed Date Resolved Date Osteoarthritis of knee 03/18/202004/12 Type II or unspecified type diabetes mellitus without mention of complication, not stated as uncontrolled 02/03/2014 08/05/2016 Type 2 diabetes mellitus in remission 10/29/2013 04/12/2023 Morbid obesity 01/01/2009 03/07/2022 Elevated blood pressure read ing without diagnosis of hypertension 11/29/2006 08/05/2016 Other acne 11/29/2006 09/06/2021 documented as of this encounter (statuses as of 09/28/2023) [place] [address]20-2020 History of Past illness Narrative* Problem Noted Date Diagnosed Date Resolved Date Osteoarthritis of knee 03/18/202004/12 Type II or unspecified type diabetes mellitus without mention of complication, not stated as uncontrolled 02/03/2014 08/05/2016 Type 2 diabetes mellitus in remission 10/29/2013 04/12/2023 Morbid obesity 01/01/2009 03/07/2022 Elevated blood pressure read ing without diagnosis of hypertension 11/29/2006 08/05/2016 Other acne 11/29/2006 09/06/2021 documented as of this encounter (statuses as of 10/10/2023) [address]20-2020 History of Past illness Narrative* Problem Noted Date Diagnosed Date Resolved Date Osteoarthritis of knee 03/18/202004/12 Type II or unspecified type diabetes mellitus without mention of complication, not stated as uncontrolled 02/03/2014 08/05/2016 Type 2 diabetes mellitus in remission 10/29/2013 04/12/2023 Morbid obesity 01/01/2009 03/07/2022 Elevated blood pressure read ing without diagnosis of hypertension 11/29/2006 08/05/2016 Other acne 11/29/2006 09/06/2021 documented as of this encounter (statuses as of 10/14/2023) [address]20-2020 History of Past illness Narrative* Problem Noted Date Diagnosed Date Resolved Date Osteoarthritis of knee 03/18/202004/12 Type II or unspecified type diabetes mellitus without mention of complication, not stated as uncontrolled 02/03/2014 08/05/2016 Type 2 diabetes mellitus in remission 10/29/2013 04/12/2023 Morbid obesity 01/01/2009 03/07/2022 Elevated blood pressure read ing without diagnosis of hypertension 11/29/2006 08/05/2016 Other acne 11/29/2006 09/06/2021 documented as of this encounter (statuses as of 12/12/2023) [address]20-2020 History of Past illness Narrative* Problem Noted Date Diagnosed Date Resolved Date Osteoarthritis of knee 03/18/202004/12 Type II or unspecified type diabetes mellitus without mention of complication, not stated as uncontrolled 02/03/2014 08/05/2016 Type 2 diabetes mellitus in remission 10/29/2013 04/12/2023 Morbid obesity 01/01/2009 03/07/2022 Elevated blood pressure read ing without diagnosis of hypertension 11/29/2006 08/05/2016 Other acne 11/29/2006 09/06/2021 documented as of this encounter (statuses as of 12/14/2023) [address]20-2020 History of Past illness Narrative* Problem Noted Date Diagnosed Date Resolved Date Osteoarthritis of knee 03/18/202004/12 Type II or unspecified type diabetes mellitus without mention of complication, not stated as uncontrolled 02/03/2014 08/05/2016 Type 2 diabetes mellitus in remission 10/29/2013 04/12/2023 Morbid obesity 01/01/2009 03/07/2022 Elevated blood pressure read ing without diagnosis of hypertension 11/29/2006 08/05/2016 Other acne 11/29/2006 09/06/2021 documented as of this encounter (statuses as of 12/15/2023) [address]20-2020 History of Past illness Narrative* Problem Noted Date Diagnosed Date Resolved Date Osteoarthritis of knee 03/18/202004/12 Type II or unspecified type diabetes mellitus without mention of complication, not stated as uncontrolled 02/03/2014 08/05/2016 Type 2 diabetes mellitus in remission 10/29/2013 04/12/2023 Morbid obesity 01/01/2009 03/07/2022 Elevated blood pressure read ing without diagnosis of hypertension 11/29/2006 08/05/2016 Other acne 11/29/2006 09/06/2021 documented as of this encounter (statuses as of 12/22/2023) [facility]2020 History of Past illness Narrative* Problem Noted Date Diagnosed Date Resolved Date Osteoarthritis of knee 03/18/202004/12 Type II or unspecified type diabetes mellitus without mention of complication, not stated as uncontrolled 02/03/2014 08/05/2016 Type 2 diabetes mellitus in remission 10/29/2013 04/12/2023 Morbid obesity 01/01/2009 03/07/2022 Elevated blood pressure read ing without diagnosis of hypertension 11/29/2006 08/05/2016 Other acne 11/29/2006 09/06/2021 documented as of this encounter (statuses as of 01/05/2024) [facility]2020 History of Past illness Narrative* Problem Noted Date Diagnosed Date Resolved Date Osteoarthritis of knee 03/18/202004/12 Type II or unspecified type diabetes mellitus without mention of complication, not stated as uncontrolled 02/03/2014 08/05/2016 Type 2 diabetes mellitus in remission 10/29/2013 04/12/2023 Morbid obesity 01/01/2009 03/07/2022 Elevated blood pressure read ing without diagnosis of hypertension 11/29/2006 08/05/2016 Other acne 11/29/2006 09/06/2021 documented as of this encounter (statuses as of 01/18/2024) [facility]2020 History of Past illness Narrative* Problem Noted Date Diagnosed Date Resolved Date Osteoarthritis of knee 03/18/202004/12 Type II or unspecified type diabetes mellitus without mention of complication, not stated as uncontrolled 02/03/2014 08/05/2016 Type 2 diabetes mellitus in remission 10/29/2013 04/12/2023 Morbid obesity 01/01/2009 03/07/2022 Elevated blood pressure read ing without diagnosis of hypertension 11/29/2006 08/05/2016 Other acne 11/29/2006 09/06/2021 documented as of this encounter (statuses as of 01/30/2024) [facility]2020 History of Past illness Narrative* Problem Noted Date Diagnosed Date Resolved Date Osteoarthritis of knee 03/18/202004/12 Type II or unspecified type diabetes mellitus without mention of complication, not stated as uncontrolled 02/03/2014 08/05/2016 Type 2 diabetes mellitus in remission 10/29/2013 04/12/2023 Morbid obesity 01/01/2009 03/07/2022 Elevated blood pressure read ing without diagnosis of hypertension 11/29/2006 08/05/2016 Other acne 11/29/2006 09/06/2021 documented as of this encounter (statuses as of 02/08/2024) [facility]2020 History of Past illness Narrative* Problem Noted Date Diagnosed Date Resolved Date Osteoarthritis of knee 03/18/202004/12 Type II or unspecified type diabetes mellitus without mention of complication, not stated as uncontrolled 02/03/2014 08/05/2016 Type 2 diabetes mellitus in remission 10/29/2013 04/12/2023 Morbid obesity 01/01/2009 03/07/2022 Elevated blood pressure read ing without diagnosis of hypertension 11/29/2006 08/05/2016 Other acne 11/29/2006 09/06/2021 documented as of this encounter (statuses as of 02/09/2024) [facility]2014 History of Past illness Narrative* Problem Noted Date Resolved Date Type II or unspecified type diabetes mellitus without mention of complication, not stated as uncontrolled 02/03/2014 Elevated blood pressure read ing without diagnosis of hypertension 11/29/2006 08/05/2016 Other acne 11/29/2006 09/06/2021 documented as of this encounter (statuses as of 01/20/2022) [facility] History of Past illness Narrative* Problem Noted Date Resolved Date Type II or unspecified type diabetes mellitus without mention of complication, not stated as uncontrolled 02/03/2014 Elevated blood pressure read ing without diagnosis of hypertension 11/29/2006 08/05/2016 Other acne 11/29/2006 09/06/2021 documented as of this encounter (statuses as of 01/31/2022) [facility] History of Past illness Narrative* Problem Noted Date Resolved Date Type II or unspecified type diabetes mellitus without mention of complication, not stated as uncontrolled 02/03/2014 Morbid obesity 01/01/2009 03/07/2022 Elevated blood pressure read ing without diagnosis of hypertension 11/29/2006 08/05/2016 Other acne 11/29/2006 09/06/2021 documented as of this encounter (statuses as of 03/07/2022) [address]07-2014 History of Past illness Narrative* Problem Noted Date Resolved Date Type II or unspecified type diabetes mellitus without mention of complication, not stated as uncontrolled 02/03/2014 Morbid obesity 01/01/2009 03/07/2022 Elevated blood pressure read ing without diagnosis of hypertension 11/29/2006 08/05/2016 Other acne 11/29/2006 09/06/2021 documented as of this encounter (statuses as of 03/29/2022) [address]-2014 History of Past illness Narrative* Problem Noted Date Resolved Date Type II or unspecified type diabetes mellitus without mention of complication, not stated as uncontrolled 02/03/2014 Morbid obesity 01/01/2009 03/07/2022 Elevated blood pressure read ing without diagnosis of hypertension 11/29/2006 08/05/2016 Other acne 11/29/2006 09/06/2021 documented as of this encounter (statuses as of 05/09/2022) [address]-2014 History of Past illness Narrative* Problem Noted Date Resolved Date Type II or unspecified type diabetes mellitus without mention of complication, not stated as uncontrolled 02/03/2014 Morbid obesity 01/01/2009 03/07/2022 Elevated blood pressure read ing without diagnosis of hypertension 11/29/2006 08/05/2016 Other acne 11/29/2006 09/06/2021 documented as of this encounter (statuses as of 05/19/2022) [address]-2014 History of Past illness Narrative* Problem Noted Date Resolved Date Type II or unspecified type diabetes mellitus without mention of complication, not stated as uncontrolled 02/03/2014 Morbid obesity 01/01/2009 03/07/2022 Elevated blood pressure read ing without diagnosis of hypertension 11/29/2006 08/05/2016 Other acne 11/29/2006 09/06/2021 documented as of this encounter (statuses as of 06/09/2022) [address]-2014 History of Past illness Narrative* Problem Noted Date Resolved Date Type II or unspecified type diabetes mellitus without mention of complication, not stated as uncontrolled 02/03/2014 Morbid obesity 01/01/2009 03/07/2022 Elevated blood pressure read ing without diagnosis of hypertension 11/29/2006 08/05/2016 Other acne 11/29/2006 09/06/2021 documented as of this encounter (statuses as of 06/20/2022) [address]-2014 History of Past illness Narrative* Problem Noted Date Resolved Date Type II or unspecified type diabetes mellitus without mention of complication, not stated as uncontrolled 02/03/2014 Morbid obesity 01/01/2009 03/07/2022 Elevated blood pressure read ing without diagnosis of hypertension 11/29/2006 08/05/2016 Other acne 11/29/2006 09/06/2021 documented as of this encounter (statuses as of 07/20/2022) [address]-2014 History of Past illness Narrative* Problem Noted Date Resolved Date Type II or unspecified type diabetes mellitus without mention of complication, not stated as uncontrolled 02/03/2014 Morbid obesity 01/01/2009 03/07/2022 Elevated blood pressure read ing without diagnosis of hypertension 11/29/2006 08/05/2016 Other acne 11/29/2006 09/06/2021 documented as of this encounter (statuses as of 08/18/2022) [facility] History of Past illness Narrative* Problem Noted Date Resolved Date Type II or unspecified type diabetes mellitus without mention of complication, not stated as uncontrolled 02/03/2014 Morbid obesity 01/01/2009 03/07/2022 Elevated blood pressure read ing without diagnosis of hypertension 11/29/2006 08/05/2016 Other acne 11/29/2006 09/06/2021 documented as of this encounter (statuses as of 09/01/2022) [facility] History of Past illness Narrative* Problem Noted Date Resolved Date Type II or unspecified type diabetes mellitus without mention of complication, not stated as uncontrolled 02/03/2014 Morbid obesity 01/01/2009 03/07/2022 Elevated blood pressure read ing without diagnosis of hypertension 11/29/2006 08/05/2016 Other acne 11/29/2006 09/06/2021 documented as of this encounter (statuses as of 09/16/2022) [address]-2014 History of Past illness Narrative* Problem Noted Date Resolved Date Type II or unspecified type diabetes mellitus without mention of complication, not stated as uncontrolled 02/03/2014 Morbid obesity 01/01/2009 03/07/2022 Elevated blood pressure read ing without diagnosis of hypertension 11/29/2006 08/05/2016 Other acne 11/29/2006 09/06/2021 documented as of this encounter (statuses as of 09/16/2022) [address]-2014 History of Past illness Narrative* Problem Noted Date Resolved Date Type II or unspecified type diabetes mellitus without mention of complication, not stated as uncontrolled 02/03/2014 Morbid obesity 01/01/2009 03/07/2022 Elevated blood pressure read ing without diagnosis of hypertension 11/29/2006 08/05/2016 Other acne 11/29/2006 09/06/2021 documented as of this encounter (statuses as of 09/21/2022) [address]07-2014 History of Past illness Narrative* Problem Noted Date Resolved Date Type II or unspecified type diabetes mellitus without mention of complication, not stated as uncontrolled 02/03/2014 Morbid obesity 01/01/2009 03/07/2022 Elevated blood pressure read ing without diagnosis of hypertension 11/29/2006 08/05/2016 Other acne 11/29/2006 09/06/2021 documented as of this encounter (statuses as of 10/13/2022) [address]-2014 History of Past illness Narrative* Problem Noted Date Resolved Date Type II or unspecified type diabetes mellitus without mention of complication, not stated as uncontrolled 02/03/2014 Morbid obesity 01/01/2009 03/07/2022 Elevated blood pressure read ing without diagnosis of hypertension 11/29/2006 08/05/2016 Other acne 11/29/2006 09/06/2021 documented as of this encounter (statuses as of 11/22/2022) [address]-2014 History of Past illness Narrative* Problem Noted Date Resolved Date Type II or unspecified type diabetes mellitus without mention of complication, not stated as uncontrolled 02/03/2014 Morbid obesity 01/01/2009 03/07/2022 Elevated blood pressure read ing without diagnosis of hypertension 11/29/2006 08/05/2016 Other acne 11/29/2006 09/06/2021 documented as of this encounter (statuses as of 11/30/2022) [address]-2014 History of Past illness Narrative* Problem Noted Date Resolved Date Type II or unspecified type diabetes mellitus without mention of complication, not stated as uncontrolled 02/03/2014 Morbid obesity 01/01/2009 03/07/2022 Elevated blood pressure read ing without diagnosis of hypertension 11/29/2006 08/05/2016 Other acne 11/29/2006 09/06/2021 documented as of this encounter (statuses as of 12/01/2022) [address]-2014 History of Past illness Narrative* Problem Noted Date Resolved Date Type II or unspecified type diabetes mellitus without mention of complication, not stated as uncontrolled 02/03/2014 Morbid obesity 01/01/2009 03/07/2022 Elevated blood pressure read ing without diagnosis of hypertension 11/29/2006 08/05/2016 Other acne 11/29/2006 09/06/2021 documented as of this encounter (statuses as of 12/10/2022) [address]-2014 History of Past illness Narrative* Problem Noted Date Resolved Date Type II or unspecified type diabetes mellitus without mention of complication, not stated as uncontrolled 02/03/2014 Morbid obesity 01/01/2009 03/07/2022 Elevated blood pressure read ing without diagnosis of hypertension 11/29/2006 08/05/2016 Other acne 11/29/2006 09/06/2021 documented as of this encounter (statuses as of 12/27/2022) [address]-2014 History of Past illness Narrative* Problem Noted Date Resolved Date Type II or unspecified type diabetes mellitus without mention of complication, not stated as uncontrolled 02/03/2014 Morbid obesity 01/01/2009 03/07/2022 Elevated blood pressure read ing without diagnosis of hypertension 11/29/2006 08/05/2016 Other acne 11/29/2006 09/06/2021 documented as of this encounter (statuses as of 01/20/2023) [facility]2014 History of Past illness Narrative* Problem Noted Date Resolved Date Type II or unspecified type diabetes mellitus without mention of complication, not stated as uncontrolled 02/03/2014 Morbid obesity 01/01/2009 03/07/2022 Elevated blood pressure read ing without diagnosis of hypertension 11/29/2006 08/05/2016 Other acne 11/29/2006 09/06/2021 documented as of this encounter (statuses as of 02/03/2023) [facility]2014 History of Past illness Narrative* Problem Noted Date Resolved Date Type II or unspecified type diabetes mellitus without mention of complication, not stated as uncontrolled 02/03/2014 Morbid obesity 01/01/2009 03/07/2022 Elevated blood pressure read ing without diagnosis of hypertension 11/29/2006 08/05/2016 Other acne 11/29/2006 09/06/2021 documented as of this encounter (statuses as of 02/07/2023) [facility] History of Past illness Narrative* Problem Noted Date Resolved Date Type II or unspecified type diabetes mellitus without mention of complication, not stated as uncontrolled 02/03/2014 Morbid obesity 01/01/2009 03/07/2022 Elevated blood pressure read ing without diagnosis of hypertension 11/29/2006 08/05/2016 Other acne 11/29/2006 09/06/2021 documented as of this encounter (statuses as of 03/03/2023) [facility] + Plan note Future Appointments Appointment Date:05/30/2022 01:00:00 PM Scheduled Provider:ADIEL ALEJANDRE Location:[facility] Appointment Type:[facility] Evaluation note* Diagnosis Type 2 diabetes mellitus without complication, with long-term current use of insulin (HCC) documented in this encounter [facility] note* Diagnosis Type 2 diabetes mellitus without complication, with long-term current use of insulin (HCC)- Primary Bipolar I disorder (HCC) Bipolar I disorder, most recent episode (or current) unspecified Essential hypertension, benign Fibromyalgia Mylagia and myositis, unspecified Acne, unspecified acne type documented in this encounter [facility] note* Diagnosis Primary osteoarthritis of both knees- Primary Primary localized osteoarthrosis, lower leg [facility]* Diagnosis Primary osteoarthritis of both knees Primary localized osteoarthrosis, lower leg [facility]* Diagnosis Fibromyalgia- Primary Mylagia and myositis, unspecified Primary osteoarthritis of both knees Primary localized osteoarthrosis, lower leg Generalized anxiety disorder Sacroiliitis (HCC) Sacroiliitis, not elsewhere classified [facility] this encounter [facility]* Diagnosis Primary osteoarthritis of both knees Primary localized osteoarthrosis, lower leg [facility]* Diagnosis Primary osteoarthritis of both knees- Primary Primary localized osteoarthrosis, lower leg Fibromyalgia Mylagia and myositis, unspecified Generalized anxiety disorder Sacroiliitis (HCC) Sacroiliitis, not elsewhere classified [facility]* Diagnosis Primary osteoarthritis of both knees Primary localized osteoarthrosis, lower leg [facility] Diagnosis Fibromyalgia- Primary Mylagia and myositis, unspecified Primary osteoarthritis of both knees Primary localized osteoarthrosis, lower leg Generalized anxiety disorder Sacroiliitis (HCC) Sacroiliitis, not elsewhere classified Other mcfp (current) drug therapy Subacromial bursitis of both shoulders Subacromial bursitis of both shoulders [facility] Diagnosis Primary osteoarthritis of both knees Primary localized osteoarthrosis, lower leg [facility] Diagnosis Hypokalemia- Primary Hypopotassemia [facility] Diagnosis Fibromyalgia- Primary Mylagia and myositis, unspecified Primary osteoarthritis of both knees Primary localized osteoarthrosis, lower leg Sacroiliitis (HCC) Sacroiliitis, not elsewhere classified Generalized anxiety disorder Subacromial bursitis of both shoulders [facility]* Diagnosis Primary osteoarthritis of both knees Primary localized osteoarthrosis, lower leg [facility] Diagnosis Fibromyalgia- Primary Mylagia and myositis, unspecified Primary osteoarthritis of both knees Primary localized osteoarthrosis, lower leg Sacroiliitis (HCC) Sacroiliitis, not elsewhere classified Generalized anxiety disorder Subacromial bursitis of both shoulders [facility] Diagnosis Fibromyalgia- Primary Mylagia and myositis, unspecified Primary osteoarthritis of both knees Primary localized osteoarthrosis, lower leg Sacroiliitis (HCC) Sacroiliitis, not elsewhere classified Generalized anxiety disorder Subacromial bursitis of both shoulders Subacromial bursitis of both shoulders [facility]* Diagnosis Primary osteoarthritis of both knees- Primary Primary localized osteoarthrosis, lower leg Fibromyalgia Mylagia and myositis, unspecified Sacroiliitis (HCC) Sacroiliitis, not elsewhere classified Generalized anxiety disorder Subacromial bursitis of both shoulders Other mcfp (current) drug therapy [facility]* Diagnosis Fibromyalgia- Primary Mylagia and myositis, unspecified Primary osteoarthritis of both knees Primary localized osteoarthrosis, lower leg Sacroiliitis (HCC) Sacroiliitis, not elsewhere classified Generalized anxiety disorder Subacromial bursitis of both shoulders documented in this encounter [facility] note* Diagnosis Bursitis of left shoulder- Primary Disorders of bursae and tendons in shoulder region, unspecified Bursitis of left shoulder Disorders of bursae and tendons in shoulder region, unspecified [facility]* Diagnosis Fibromyalgia- Primary Mylagia and myositis, unspecified [facility]* Diagnosis Fibromyalgia- Primary Mylagia and myositis, unspecified Primary osteoarthritis of both knees Primary localized osteoarthrosis, lower leg Sacroiliitis (HCC) Sacroiliitis, not elsewhere classified Generalized anxiety disorder Subacromial bursitis of both shoulders documented in this encounter [facility] note* Diagnosis Fibromyalgia- Primary Mylagia and myositis, unspecified [facility]* Diagnosis Primary osteoarthritis of both knees Primary localized osteoarthrosis, lower leg [facility] Diagnosis Fibromyalgia- Primary Mylagia and myositis, unspecified Primary osteoarthritis of both knees Primary localized osteoarthrosis, lower leg Sacroiliitis (HCC) Sacroiliitis, not elsewhere classified Generalized anxiety disorder Subacromial bursitis of both shoulders Chronic pain of both shoulders Pain in joint, shoulder region Neuropathy involving both lower extremities Subacromial bursitis of both shoulders [facility]* Diagnosis Chronic pain of both shoulders Pain in joint, shoulder region Subacromial bursitis of both shoulders documented in this encounter [facility] note* Diagnosis Screening breast examination Breast screening, unspecified [facility]* Diagnosis Chronic pain syndrome- Primary documented in this encounter [facility] note* Diagnosis Fibromyalgia- Primary Mylagia and myositis, unspecified Sacroiliitis (HCC) Sacroiliitis, not elsewhere classified Primary osteoarthritis of both knees Primary localized osteoarthrosis, lower leg Subacromial bursitis of both shoulders Generalized anxiety disorder Chronic pain of both shoulders Pain in joint, shoulder region Neuropathy involving both lower extremities Other mcfp (current) drug therapy documented in this encounter [facility] note* Diagnosis Fibromyalgia Mylagia and myositis, unspecified [facility]* Diagnosis Fibromyalgia- Primary Mylagia and myositis, unspecified Essential hypertension, benign Sleep apnea, unspecified type Generalized anxiety disorder Other polyneuropathy Bipolar I disorder (HCC) Bipolar I disorder, most recent episode (or current) unspecified Migraine without aura and without status migrainosus, not intractable Migraine without aura, without mention of intractable migraine without mention of status migrainosus Chronic pain syndrome History of diabetes mellitus Personal history of other endocrine, metabolic, and immunity disorders Fatigue, unspecified type Encounter for screening mammogram for malignant neoplasm of breast Other screening mammogram [facility] Diagnosis Encounter for screening mammogram for malignant neoplasm of breast Other screening mammogram [facility] Diagnosis Primary osteoarthritis of both knees Primary localized osteoarthrosis, lower leg [facility] Diagnosis Fibromyalgia- Primary Mylagia and myositis, unspecified Primary osteoarthritis of both knees Primary localized osteoarthrosis, lower leg Sacroiliitis (HCC) Sacroiliitis, not elsewhere classified Subacromial bursitis of both shoulders Generalized anxiety disorder Neuropathy involving both lower extremities Subacromial bursitis of both shoulders [facility] Diagnosis Rectal bleeding- Primary Hemorrhage of rectum and anus Chronic constipation Unspecified constipation Abdominal discomfort Abdominal pain, unspecified site documented in this encounter [facility] note* Diagnosis Chronic pain syndrome- Primary Fibromyalgia Mylagia and myositis, unspecified Primary osteoarthritis of both knees Primary localized osteoarthrosis, lower leg Sacroiliitis (HCC) Sacroiliitis, not elsewhere classified Subacromial bursitis of both shoulders Generalized anxiety disorder Neuropathy involving both lower extremities documented in this encounter [facility] note* Diagnosis Primary osteoarthritis of both knees Primary localized osteoarthrosis, lower leg Fibromyalgia Mylagia and myositis, unspecified [facility]* Diagnosis Chronic insomnia- Primary Insomnia, unspecified Generalized anxiety disorder Bipolar I disorder (HCC) Bipolar I disorder, most recent episode (or current) unspecified 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 History of suicide attempt Personal history of other mental disorder documented in this encounter [facility] note* Diagnosis Fibromyalgia- Primary Mylagia and myositis, unspecified Primary osteoarthritis of both knees Primary localized osteoarthrosis, lower leg Sacroiliitis (HCC) Sacroiliitis, not elsewhere classified Subacromial bursitis of both shoulders Generalized anxiety disorder Neuropathy involving both lower extremities documented in this encounter [facility] note* Diagnosis Primary osteoarthritis of both knees Primary localized osteoarthrosis, lower leg [facility] Diagnosis Acute right-sided low back pain without sciatica- Primary Acute right-sided low back pain without sciatica [facility]* Diagnosis Fibromyalgia Mylagia and myositis, unspecified [facility] Diagnosis Fibromyalgia- Primary Mylagia and myositis, unspecified Sacroiliitis (HCC) Sacroiliitis, not elsewhere classified Subacromial bursitis of both shoulders Primary osteoarthritis of both knees Primary localized osteoarthrosis, lower leg Generalized anxiety disorder Neuropathy involving both lower extremities [facility] Diagnosis Acute midline low back pain without sciatica- Primary [facility]* Diagnosis Chronic pain syndrome- Primary Fibromyalgia Mylagia and myositis, unspecified Essential Hypertension, Benign Essential hypertension, benign Lumbar strain, subsequent encounter [facility]* Diagnosis Acute midline low back pain without sciatica- Primary [facility] Diagnosis Coccyx pain- Primary Other disorder of coccyx [facility] Diagnosis Acute midline low back pain without sciatica- Primary [facility]* Diagnosis Coccyx pain Other disorder of coccyx [facility] Diagnosis Acute right-sided low back pain without sciatica [facility] Diagnosis Acute midline low back pain without sciatica- Primary [facility]* Diagnosis Rectal bleeding Hemorrhage of rectum and anus Chronic constipation Unspecified constipation [facility]* Diagnosis Fibromyalgia Mylagia and myositis, unspecified [facility]* Diagnosis Acute midline low back pain without sciatica- Primary [facility]* Diagnosis Subacromial bursitis of both shoulders- Primary Fibromyalgia Mylagia and myositis, unspecified Sacroiliitis (HCC) Sacroiliitis, not elsewhere classified Primary osteoarthritis of both knees Primary localized osteoarthrosis, lower leg Neuropathy involving both lower extremities Generalized anxiety disorder Subacromial bursitis of both shoulders [facility] Diagnosis Chronic pain syndrome- Primary Screening for depression History of diabetes mellitus Personal history of other endocrine, metabolic, and immunity disorders Lumbar strain, subsequent encounter Fibromyalgia Mylagia and myositis, unspecified Essential Hypertension, Benign Essential hypertension, benign Sleep apnea, unspecified type Chronic insomnia Insomnia, unspecified Encounter for lipid screening for cardiovascular disease Screening for lipoid disorders Subacromial bursitis of both shoulders [facility] Diagnosis Fibromyalgia- Primary Mylagia and myositis, unspecified Primary osteoarthritis of both knees Primary localized osteoarthrosis, lower leg Subacromial bursitis of both shoulders Sacroiliitis (HCC) Sacroiliitis, not elsewhere classified Neuropathy involving both lower extremities Generalized anxiety disorder Bilateral shoulder region arthritis [facility] Diagnosis Subacromial bursitis of both shoulders- Primary Bilateral shoulder region arthritis [facility] Diagnosis Subacromial bursitis of both shoulders- Primary Bilateral shoulder region arthritis [facility] Diagnosis Subacromial bursitis of both shoulders- Primary Bilateral shoulder region arthritis [facility]* Diagnosis Subacromial bursitis of both shoulders- Primary Bilateral shoulder region arthritis [facility]* Diagnosis Fibromyalgia Mylagia and myositis, unspecified documented [facility]* Diagnosis Subacromial bursitis of both shoulders- Primary Bilateral shoulder region arthritis [facility]* Diagnosis Subacromial bursitis of both shoulders- Primary [facility]* Diagnosis Subacromial bursitis of both shoulders- Primary Bilateral shoulder region arthritis [facility]* Diagnosis Subacromial bursitis of both shoulders- Primary [facility]* Diagnosis Encounter for screening mammogram for breast cancer documented [facility]* Diagnosis Fibromyalgia- Primary Mylagia and myositis, unspecified Primary osteoarthritis of both knees Primary localized osteoarthrosis, lower leg Subacromial bursitis of both shoulders Bilateral shoulder region arthritis Sacroiliitis Sacroiliitis, not elsewhere classified Neuropathy involving both lower extremities Generalized anxiety disorder documented [facility]* Diagnosis Subacromial bursitis of both shoulders- Primary Bilateral shoulder region arthritis [facility]* Diagnosis Fibromyalgia- Primary Mylagia and myositis, unspecified Bipolar I disorder (HCC) Bipolar I disorder, most recent episode (or current) unspecified snf (current) use of insulin (HCC) Neuropathy involving both lower extremities Essential Hypertension, Benign Essential hypertension, benign History of diabetes mellitus Personal history of other endocrine, metabolic, and immunity disorders Generalized anxiety disorder Screening for colon cancer Special screening for malignant neoplasms, colon Disorder of bone, unspecified [facility]* Diagnosis Encounter for screening mammogram for breast cancer [facility]* Diagnosis Onset Date Resolution Status Admit Date Left shoulder pain acute March 312024 10:59am [facility] Work Phone: Evaluation note* Diagnosis Chronic pain syndrome- Primary Fibromyalgia Mylagia and myositis, unspecified Essential Hypertension, Benign Essential hypertension, benign Urinary retention Retention of urine, unspecified Urinary retention Retention of urine, unspecified [facility]* Diagnosis Urinary retention Retention of urine, unspecified documented in this encounter [facility] note* Diagnosis Fibromyalgia- Primary Mylagia and myositis, unspecified Bilateral shoulder region arthritis Subacromial bursitis of both shoulders Primary osteoarthritis of both knees Primary localized osteoarthrosis, lower leg Sacroiliitis Sacroiliitis, not elsewhere classified Neuropathy involving both lower extremities Generalized anxiety disorder documented in this encounter [facility] note* Diagnosis Chronic insomnia- Primary Insomnia, unspecified Generalized anxiety disorder Bipolar I disorder (HCC) Bipolar I disorder, most recent episode (or current) unspecified Panic disorder Panic disorder without agoraphobia documented in this encounter [facility] course Narrative No data available for this section [facility] Hospital Discharge instructions No data available for this section [facility] Progress note No data available for this section [facility] Reason for referral (narrative)* Diagnostic Procedure Only (Routine) - Closed Specialty Diagnoses / Procedures Referred By Mercedes maravilla Referred To Contact XR IMAGING Diagnoses Chronic pain of both shoulders Procedures XR SHOULDER ORTHO 4V AP/TRUE AP/LAT/OUTLET RIGHT RADEX SHOULDER COMPLETE MINIMUM 2 VIEWS Freeman Sarabia PA-C [address] [place] [address] [place] [address] Referral ID Status Reason Start Date Expiration Date V isits Requested Visits Authorized [id number] Closed Auto-Generate d Referral 08/25/2023 09/23/2024 1 1 * Diagnostic Procedure Only (Routine) - Closed Specialty Diagnoses / Procedures Referred By Contac t Referred To Contact XR IMAGING Diagnoses Chronic pain of both shoulders Procedures XR SHOULDER ORTHO 4V AP/TRUE AP/LAT/OUTLET LEFT RADEX SHOULDER COMPLETE MINIMUM 2 VIEWS Freemna Sarabia PA-C [address] [place] [address] [place] [address] Referral ID Status Reason Start Date Expiration Date V isits Requested Visits Authorized [id number] Closed Auto-Generate d Referral 08/25/2023 09/23/2024 1 1 [facility] for referral (narrative)* Diagnostic Procedure Only (Routine) - Closed Specialty Diagnoses / Procedures Referred By Contac t Referred To Contact BR IMAGING Diagnoses Screening breast examination Procedures BRITTON SCREENING SCREENING MAMMOGRAPHY BI 2-VIEW BREAST INC Torres Valle MD [address] [place], [place] [id number] [facility] [address] [place] [address] Referral ID Status Reason Start Date Expiration Date V isits Requested Visits Authorized [id number] Closed Auto-Generate d Referral 09/08/2022 10/08/2023 1 1 [facility] for referral (narrative)* Diagnostic Procedure Only (Routine) - Authorized Specialty Diagnoses / Procedures Referred By Contac t Referred To Contact BR IMAGING Diagnoses Encounter for screening mammogram for malignant neoplasm of breast Procedures BRITTON SCREENING SCREENING MAMMOGRAPHY BI 2-VIEW BREAST INC Torres Valle MD [address] [place] [id number] [facility] [address] [place] [address] Referral ID Status Reason Start Date Expiration Date Visits Requested Visits Authorized [id number] Authorized Auto-Generat ed Referral 3 11/11/2024 1 1 * Transition of Care (Routine) - Ref Not Required Specialty Diagnoses / Procedures Referred By Contac t Referred To Contact Neurology Diagnoses Other polyneuropathy Migraine without aura and without status migrainosus, not intractable Procedures CONSULT TO NEUROLOGY Torres Yao MD [address] [place] [id number] Referral ID Status Reason Start Date Expiration Date Visits Requested Visits Authorized [id number] Ref Not Required PCP Requested Referral 3 10/12/2024 1 1 [facility] for referral (narrative)* Diagnostic Procedure Only (Urgent) - Closed Specialty Diagnoses / Procedures Referred By Contac t Referred To Contact XR IMAGING Diagnoses Rectal bleeding Chronic constipation Procedures XR ABDOMEN 1V SUPINE RADIOLOGIC EXAM ABDOMEN 1 VIEW Torres Yao MD [address] [place] [address] [place] [address] Referral ID Status Reason Start Date Expiration Date V isits Requested Visits Authorized [id number] Closed Auto-Generate d Referral 01/29/2024 02/27/2025 1 1 * Consult, Test, Treat (Routine) - Authorized Specialty Diagnoses / Procedures Referred By Contac t Referred To Contact General Surgery Diagnoses Rectal bleeding Chronic constipation Procedures CONSULT TO GENERAL SURGERY OFFICE/OUTPATIENT [facility] 60 MINUTES Torres Yao MD [address] [place] [id number] Referral ID Status Reason Start Date Expiration Date Visits Requested Visits Authorized [id number] Authorized PCP Requested Referral 01/29/2024 01/28/2025 1 1 [facility] for referral (narrative)* Diagnostic Procedure Only (Urgent) - Closed Specialty Diagnoses / Procedures Referred By Contac t Referred To Contact XR IMAGING Diagnoses Acute right-sided low back pain without sciatica Procedures XR LUMBAR GENERAL 3V AP/LAT/L5-S1 RADEX SPINE LUMBOSACRAL 2/3 VIEWS Ellen Rene APRN.CNP [address] [place] [address] [place] [address] Referral ID Status Reason Start Date Expiration Date V isits Requested Visits Authorized [id number] Closed Auto-Generate d Referral 05/10/2024 06/09/2025 1 1 [facility] for referral (narrative)* Diagnostic Procedure Only (Routine) - Closed Specialty Diagnoses / Procedures Referred By Contac t Referred To Contact XR IMAGING Diagnoses Coccyx pain Procedures XR SACRUM/COCCYX 3V AP/LAT RADEX SACRUM & COCCYX MINIMUM 2 VIEWS Ellen Rene APRN.CNP [address] [place] [address] [place] [address] Referral ID Status Reason Start Date Expiration Date V isits Requested Visits Authorized [id number] Closed Auto-Generate d Referral 06/21/2024 07/21/2025 1 1 [facility] for referral (narrative)* Diagnostic Procedure Only (Routine) - Closed Specialty Diagnoses / Procedures Referred By Contac t Referred To Contact XR IMAGING Diagnoses Coccyx pain Procedures XR SACRUM/COCCYX 3V AP/LAT RADEX SACRUM & COCCYX MINIMUM 2 VIEWS Ellen Rene APRN.GROUP RESERVATIONS COORDINATOR [address] [place] [address] [place] [address] Referral ID Status Reason Start Date Expiration Date V isits Requested Visits Authorized [id number] Closed Auto-Generate d Referral 06/21/2024 07/21/2025 1 1 [facility] for referral (narrative)* Diagnostic Procedure Only (Urgent) - Closed Specialty Diagnoses / Procedures Referred By Contac t Referred To Contact XR IMAGING Diagnoses Acute right-sided low back pain without sciatica Procedures XR LUMBAR GENERAL 3V AP/LAT/L5-S1 RADEX SPINE LUMBOSACRAL 2/3 VIEWS Ellen Rene APRN.GROUP RESERVATIONS COORDINATOR [address] [place] [address] [place] [address] Referral ID Status Reason Start Date Expiration Date V isits Requested Visits Authorized [id number] Closed Auto-Generate d Referral 05/10/2024 06/09/2025 1 1 [facility] for referral (narrative)* Diagnostic Procedure Only (Urgent) - Closed Specialty Diagnoses / Procedures Referred By Contac t Referred To Contact XR IMAGING Diagnoses Rectal bleeding Chronic constipation Procedures XR ABDOMEN 1V SUPINE RADIOLOGIC EXAM ABDOMEN 1 VIEW Torres Yao MD [address] [place] [address] [place] [address] Referral ID Status Reason Start Date Expiration Date V isits Requested Visits Authorized [id number] Closed Auto-Generate d Referral 01/29/2024 02/27/2025 1 1 [facility] for referral (narrative)No reason for referral information [place] [facility] Work Phone: [facility] Narrative* Diagnostic Procedure Only (Routine) - Closed Specialty Diagnoses / Procedures Referred By Contac t Referred To Contact XR IMAGING Diagnoses Chronic pain of both shoulders Procedures XR SHOULDER ORTHO 4V AP/TRUE AP/LAT/OUTLET RIGHT RADEX SHOULDER COMPLETE MINIMUM 2 VIEWS Freeman Sarabia, NIEC[employer] [address] [place] [address] [place] [address] Referral ID Status Reason Start Date Expiration Date V isits Requested Visits Authorized [id number] Closed Auto-Generate d Referral 08/25/2023 09/23/2024 1 1 [facility] for visit Narrative* Diagnostic Procedure Only (Routine) - Closed Specialty Diagnoses / Procedures Referred By Contac t Referred To Contact [facility] Diagnoses Screening breast examination Procedures BRITTON SCREENING SCREENING MAMMOGRAPHY BI 2-VIEW BREAST INC CAD Torres Yao MD [address] [place] [address] [facility] [address] [place] [address] Referral ID Status Reason Start Date Expiration Date V isits Requested Visits Authorized [id number] Closed Auto-Generate d Referral 09/08/2022 10/08/2023 1 1 [facility] for visit Narrative* Diagnostic Procedure Only (Routine) - Closed Specialty Diagnoses / Procedures Referred By Madelinac t Referred To Contact [facility] Diagnoses Encounter for screening mammogram for malignant neoplasm of breast Procedures BRITTON SCREENING SCREENING MAMMOGRAPHY BI 2-VIEW BREAST INC CAD Torres Yao MD [address] [place] [address] [facility] [address] [place] [address] Referral ID Status Reason Start Date Expiration Date V isits Requested Visits Authorized [id number] Closed Auto-Generate d Referral 10/13/2023 11/11/2024 1 1 [facility] for visit Narrative* Diagnostic Procedure Only (Routine) - Closed Specialty Diagnoses / Procedures Referred By Madelinac t Referred To Contact XR IMAGING Diagnoses Coccyx pain Procedures XR SACRUM/COCCYX 3V AP/LAT RADEX SACRUM & COCCYX MINIMUM 2 VIEWS Ellen Rene, STAFF [employer]LECT[employer]IC [employer] OFFICER.GROUP RESERVATIONS COORDINATOR [address] [place] [address] [place] [address] Referral ID Status Reason Start Date Expiration Date V isits Requested Visits Authorized [id number] Closed Auto-Generate d Referral 06/21/2024 07/21/2025 1 1 [facility] for visit Narrative* Diagnostic Procedure Only (Urgent) - Closed Specialty Diagnoses / Procedures Referred By Madelinac t Referred To Contact X[facility] IMAGING Diagnoses Acute right-sided low back pain without sciatica Procedures XR LUMBAR GENERAL 3V AP/LAT/L5-S1 RADEX SPINE LUMBOSACRAL 2/3 VIEWS Ellen Rene, STAFF ELECTRONIC [employer]ARFARE OFFICER.GROUP RESERVATIONS COORDINATOR [address] [place] [address] [place] [address] Referral ID Status Reason Start Date Expiration Date V isits Requested Visits Authorized [id number] Closed Auto-Generate d Referral 05/10/2024 06/09/2025 1 1 [facility] for visit Narrative* Diagnostic Procedure Only (Urgent) - Closed Specialty Diagnoses / Procedures Referred By Madelinac t Referred To Contact XR IMAGING Diagnoses Rectal bleeding Chronic constipation Procedures XR ABDOMEN 1V SUPINE RADIOLOGIC EXAM ABDOMEN 1 VIEW Torres Yao MD [address] [place] [address] [place] [address] Referral ID Status Reason Start Date Expiration Date V isits Requested Visits Authorized [id number] Closed Auto-Generate d Referral 01/29/2024 02/27/2025 1 1 [facility] for visit Narrative* Diagnostic Procedure Only (Routine) - Closed Specialty Diagnoses / Procedures Referred By Mercedes t Referred To Contact [facility] Diagnoses Encounter for screening mammogram for breast cancer Procedures BRITTON SCREENING W CHANA SCREENING DIGITAL BREAST TOMOSYNTHESIS BI SCREENING MAMMOGRAPHY BI 2-VIEW BREAST INC CAD Torres Yao MD [address] [place] [address] Phone: tel: fax: [facility] [address] [place] [address] Referral ID Status Reason Start Date Expiration Date V isits Requested Visits Authorized [id number] Closed Auto-Generate d Referral 01/14/2025 02/13/2026 1 1 [facility] for visit Narrative* Diagnostic Procedure Only (Urgent) - Closed Specialty Diagnoses / Procedures Referred By Mercedes maravilla Referred To Contact [facility] Diagnoses Urinary retention Procedures US PELVIS BLADDER US PELVIC NONOBSTETRIC IMAGE DCMTN LIMITED/F/U Ellen Rene APRN.GROUP RESERVATIONS COORDINATOR [address] [place] [address] Phone: tel: fax: [place] [address] Referral ID Status Reason Start Date Expiration Date V isits Requested Visits Authorized [id number] Closed Auto-Generate d Referral 05/05/2025 06/04/2026 1 1 [facility] Summary Purpose Family History No Family History Records FoundNo Family History Records Found No data available for this section No data available for this section No Family History Records FoundNo Family History Records FoundNo Family History Records FoundNo Family History Records FoundNo Family History Records Found Advance Directives No Advanced Directives Records FoundNo Advanced Directives Records FoundNo Advanced Directives Records FoundNo Advanced Directives Records FoundNo Advanced Directives Records FoundNo Advanced Directives Records FoundNo Advanced Directives Records Found Reason for Referral Specialty Diagnoses / Procedures Referred By Mercedes t Referred To Contact [facility] Diagnoses Subacromial bursitis of both shoulders Bilateral shoulder region arthritis Procedures CONSULT TO PHYSICAL THERAPY PHYSICAL THERAPY EVALUATION HIGH COMPLEX 45 MINS Freeman Sarabia PA-C [address] [facility] [place] [address] [facility] [address] [place] [address] Referral ID Status Reason Start Date Expiration Date Visits Requested Visits Authorized [id number] Authorized PCP Requested Referral Auto-Generate d Referral 11/22/2024 11/22/2025 99 99 Specialty Diagnoses / Procedures Referred By Contac t Referred To Contact Diagnoses Chronic pain syndrome Freeman Sarabia PA-C [address] [place] [address] Referral ID Status Reason Start Date Expiration Date V isits Requested Visits Authorized [id number] Pending Review 1 1 Specialty Diagnoses / Procedures Referred By Contac t Referred To Contact Diagnoses Fibromyalgia Freeman Sarabia PA-C [address] [place] [address] Referral ID Status Reason Start Date Expiration Date V isits Requested Visits Authorized [id number] Pending Review 1 1 Chief Complaint and Reason for Visit Chief Complaint Admit Date LEFT SHOULDER April 21, 2025 10:5 9am Room 1 April 21, 2025 11:0 4am Reason for Visit Admit Date Left shoulder pain April 21, 2025 10:5 9am Chief Complaint Admit Date LEFT SHOULDER April 21, 2025 10:5 9am Room 1 April 21, 2025 11:0 4am LT SHOULDER PAIN, R/O CUFF TEAR April 12:22pm LEFT SHOULDER May 22, 2025 10:1 9am Reason for Visit Admit Date Left shoulder pain April 21, 2025 10:5 9am Impingement of left shoulder May 22, 2025 10:19am Left rotator cuff tear May 22, 2025 1 0:19am Left shoulder pain May 22, 2025 10:1 9am Additional Source Comments INFORMATION SOURCE (unrecogn ized section and content) DATE CREATED AUTHOR 05/29/2020 [facility] DATE CREATED AUTHOR 'S AUGUST ATABRAHAM 02/26/2021 [facility] DATE CREATED AUTHOR AUTHOR'S ORGANIZ ATION 03/07/2024 [facility] ([place]) DATE CREATED AUTHOR AUTHOR'S ORGANIZ ATION 05/09/2025 [facility] DATE CREATED AUTHOR AUTHOR'S ORGANIZ ATION 05/19/2025 [facility] DATE CREATED AUTHOR AUTHOR'S ORGANIZ ATION 05/19/2025 [facility] DATE CREATED AUTHOR AUTHOR'S ORGANIZ ATION 06/10/2025 [facility] Source Comments (unrecognize d section and content) In the event this informatio n is protected by the Federal Confidentiality of Alcohol and Drug Abuse Patient Records regulations: The Federal rules restrict any use of the information to criminally investigate or prosecute any alcohol or drug abuse patient.[facility] the event this information is protected by the Federal Confidentiality of Alcohol and Drug Abuse Patient Records regulations: The Federal rules restrict any use of the information to criminally investigate or prosecute any alcohol or drug abuse patient.[facility] the event this information is protected by the Federal Confidentiality of Alcohol and Drug Abuse Patient Records regulations: The Federal rules restrict any use of the information to criminally investigate or prosecute any alcohol or drug abuse patient.[facility] the event this information is protected by the Federal Confidentiality of Alcohol and Drug Abuse Patient Records regulations: The Federal rules restrict any use of the information to criminally investigate or prosecute any alcohol or drug abuse patient.[facility] HospitalIn the event this information is protected by the Federal Confidentiality of Alcohol and Drug Abuse Patient Records regulations: The Federal rules restrict any use of the information to criminally investigate or prosecute any alcohol or drug abuse patient.[facility] HospitalIn the event this information is protected by the Federal Confidentiality of Alcohol and Drug Abuse Patient Records regulations: The Federal rules restrict any use of the information to criminally investigate or prosecute any alcohol or drug abuse patient.[facility] HospitalIn the event this information is protected by the Federal Confidentiality of Alcohol and Drug Abuse Patient Records regulations: The Federal rules restrict any use of the information to criminally investigate or prosecute any alcohol or drug abuse patient.[facility] HospitalIn the event this information is protected by the Federal Confidentiality of Alcohol and Drug Abuse Patient Records regulations: The Federal rules restrict any use of the information to criminally investigate or prosecute any alcohol or drug abuse patient.[facility] HospitalIn the event this information is protected by the Federal Confidentiality of Alcohol and Drug Abuse Patient Records regulations: The Federal rules restrict any use of the information to criminally investigate or prosecute any alcohol or drug abuse patient.[facility] HospitalIn the event this information is protected by the Federal Confidentiality of Alcohol and Drug Abuse Patient Records regulations: The Federal rules restrict any use of the information to criminally investigate or prosecute any alcohol or drug abuse patient.[facility] HospitalIn the event this information is protected by the Federal Confidentiality of Alcohol and Drug Abuse Patient Records regulations: The Federal rules restrict any use of the information to criminally investigate or prosecute any alcohol or drug abuse patient.[facility] HospitalIn the event this information is protected by the Federal Confidentiality of Alcohol and Drug Abuse Patient Records regulations: The Federal rules restrict any use of the information to criminally investigate or prosecute any alcohol or drug abuse patient.[facility] HospitalIn the event this information is protected by the Federal Confidentiality of Alcohol and Drug Abuse Patient Records regulations: The Federal rules restrict any use of the information to criminally investigate or prosecute any alcohol or drug abuse patient.[facility] HospitalIn the event this information is protected by the Federal Confidentiality of Alcohol and Drug Abuse Patient Records regulations: The Federal rules restrict any use of the information to criminally investigate or prosecute any alcohol or drug abuse patient.[facility] HospitalIn the event this information is protected by the Federal Confidentiality of Alcohol and Drug Abuse Patient Records regulations: The Federal rules restrict any use of the information to criminally investigate or prosecute any alcohol or drug abuse patient.[facility] HospitalIn the event this information is protected by the Federal Confidentiality of Alcohol and Drug Abuse Patient Records regulations: The Federal rules restrict any use of the information to criminally investigate or prosecute any alcohol or drug abuse patient.[facility] HospitalIn the event this information is protected by the Federal Confidentiality of Alcohol and Drug Abuse Patient Records regulations: The Federal rules restrict any use of the information to criminally investigate or prosecute any alcohol or drug abuse patient.[facility] HospitalIn the event this information is protected by the Federal Confidentiality of Alcohol and Drug Abuse Patient Records regulations: The Federal rules restrict any use of the information to criminally investigate or prosecute any alcohol or drug abuse patient.[facility] HospitalIn the event this information is protected by the Federal Confidentiality of Alcohol and Drug Abuse Patient Records regulations: The Federal rules restrict any use of the information to criminally investigate or prosecute any alcohol or drug abuse patient.[facility] HospitalIn the event this information is protected by the Federal Confidentiality of Alcohol and Drug Abuse Patient Records regulations: The Federal rules restrict any use of the information to criminally investigate or prosecute any alcohol or drug abuse patient.[facility] HospitalIn the event this information is protected by the Federal Confidentiality of Alcohol and Drug Abuse Patient Records regulations: The Federal rules restrict any use of the information to criminally investigate or prosecute any alcohol or drug abuse patient.[facility] HospitalIn the event this information is protected by the Federal Confidentiality of Alcohol and Drug Abuse Patient Records regulations: The Federal rules restrict any use of the information to criminally investigate or prosecute any alcohol or drug abuse patient.[facility] HospitalIn the event this information is protected by the Federal Confidentiality of Alcohol and Drug Abuse Patient Records regulations: The Federal rules restrict any use of the information to criminally investigate or prosecute any alcohol or drug abuse patient.[facility] HospitalIn the event this information is protected by the Federal Confidentiality of Alcohol and Drug Abuse Patient Records regulations: The Federal rules restrict any use of the information to criminally investigate or prosecute any alcohol or drug abuse patient.[facility] HospitalIn the event this information is protected by the Federal Confidentiality of Alcohol and Drug Abuse Patient Records regulations: The Federal rules restrict any use of the information to criminally investigate or prosecute any alcohol or drug abuse patient.[facility] HospitalIn the event this information is protected by the Federal Confidentiality of Alcohol and Drug Abuse Patient Records regulations: The Federal rules restrict any use of the information to criminally investigate or prosecute any alcohol or drug abuse patient.[facility] HospitalIn the event this information is protected by the Federal Confidentiality of Alcohol and Drug Abuse Patient Records regulations: The Federal rules restrict any use of the information to criminally investigate or prosecute any alcohol or drug abuse patient.[facility] HospitalIn the event this information is protected by the Federal Confidentiality of Alcohol and Drug Abuse Patient Records regulations: The Federal rules restrict any use of the information to criminally investigate or prosecute any alcohol or drug abuse patient.[facility] HospitalIn the event this information is protected by the Federal Confidentiality of Alcohol and Drug Abuse Patient Records regulations: The Federal rules restrict any use of the information to criminally investigate or prosecute any alcohol or drug abuse patient.[facility] HospitalIn the event this information is protected by the Federal Confidentiality of Alcohol and Drug Abuse Patient Records regulations: The Federal rules restrict any use of the information to criminally investigate or prosecute any alcohol or drug abuse patient.[facility] HospitalIn the event this information is protected by the Federal Confidentiality of Alcohol and Drug Abuse Patient Records regulations: The Federal rules restrict any use of the information to criminally investigate or prosecute any alcohol or drug abuse patient.[facility] HospitalIn the event this information is protected by the Federal Confidentiality of Alcohol and Drug Abuse Patient Records regulations: The Federal rules restrict any use of the information to criminally investigate or prosecute any alcohol or drug abuse patient.[facility] HospitalIn the event this information is protected by the Federal Confidentiality of Alcohol and Drug Abuse Patient Records regulations: The Federal rules restrict any use of the information to criminally investigate or prosecute any alcohol or drug abuse patient.[facility] HospitalIn the event this information is protected by the Federal Confidentiality of Alcohol and Drug Abuse Patient Records regulations: The Federal rules restrict any use of the information to criminally investigate or prosecute any alcohol or drug abuse patient.[facility] HospitalIn the event this information is protected by the Federal Confidentiality of Alcohol and Drug Abuse Patient Records regulations: The Federal rules restrict any use of the information to criminally investigate or prosecute any alcohol or drug abuse patient.[facility] HospitalIn the event this information is protected by the Federal Confidentiality of Alcohol and Drug Abuse Patient Records regulations: The Federal rules restrict any use of the information to criminally investigate or prosecute any alcohol or drug abuse patient.[facility] HospitalIn the event this information is protected by the Federal Confidentiality of Alcohol and Drug Abuse Patient Records regulations: The Federal rules restrict any use of the information to criminally investigate or prosecute any alcohol or drug abuse patient.[facility] HospitalIn the event this information is protected by the Federal Confidentiality of Alcohol and Drug Abuse Patient Records regulations: The Federal rules restrict any use of the information to criminally investigate or prosecute any alcohol or drug abuse patient.[facility] HospitalIn the event this information is protected by the Federal Confidentiality of Alcohol and Drug Abuse Patient Records regulations: The Federal rules restrict any use of the information to criminally investigate or prosecute any alcohol or drug abuse patient.[facility] HospitalIn the event this information is protected by the Federal Confidentiality of Alcohol and Drug Abuse Patient Records regulations: The Federal rules restrict any use of the information to criminally investigate or prosecute any alcohol or drug abuse patient.[facility] HospitalIn the event this information is protected by the Federal Confidentiality of Alcohol and Drug Abuse Patient Records regulations: The Federal rules restrict any use of the information to criminally investigate or prosecute any alcohol or drug abuse patient.[facility] HospitalIn the event this information is protected by the Federal Confidentiality of Alcohol and Drug Abuse Patient Records regulations: The Federal rules restrict any use of the information to criminally investigate or prosecute any alcohol or drug abuse patient.[facility] the event this information is protected by the Federal Confidentiality of Alcohol and Drug Abuse Patient Records regulations: The Federal rules restrict any use of the information to criminally investigate or prosecute any alcohol or drug abuse patient.[facility] HospitalIn the event this information is protected by the Federal Confidentiality of Alcohol and Drug Abuse Patient Records regulations: The Federal rules restrict any use of the information to criminally investigate or prosecute any alcohol or drug abuse patient.[facility] HospitalIn the event this information is protected by the Federal Confidentiality of Alcohol and Drug Abuse Patient Records regulations: The Federal rules restrict any use of the information to criminally investigate or prosecute any alcohol or drug abuse patient.[facility] HospitalIn the event this information is protected by the Federal Confidentiality of Alcohol and Drug Abuse Patient Records regulations: The Federal rules restrict any use of the information to criminally investigate or prosecute any alcohol or drug abuse patient.[facility] HospitalIn the event this information is protected by the Federal Confidentiality of Alcohol and Drug Abuse Patient Records regulations: The Federal rules restrict any use of the information to criminally investigate or prosecute any alcohol or drug abuse patient.[facility] HospitalIn the event this information is protected by the Federal Confidentiality of Alcohol and Drug Abuse Patient Records regulations: The Federal rules restrict any use of the information to criminally investigate or prosecute any alcohol or drug abuse patient.[facility] HospitalIn the event this information is protected by the Federal Confidentiality of Alcohol and Drug Abuse Patient Records regulations: The Federal rules restrict any use of the information to criminally investigate or prosecute any alcohol or drug abuse patient.[facility] HospitalIn the event this information is protected by the Federal Confidentiality of Alcohol and Drug Abuse Patient Records regulations: The Federal rules restrict any use of the information to criminally investigate or prosecute any alcohol or drug abuse patient.[facility] HospitalIn the event this information is protected by the Federal Confidentiality of Alcohol and Drug Abuse Patient Records regulations: The Federal rules restrict any use of the information to criminally investigate or prosecute any alcohol or drug abuse patient.[facility] HospitalIn the event this information is protected by the Federal Confidentiality of Alcohol and Drug Abuse Patient Records regulations: The Federal rules restrict any use of the information to criminally investigate or prosecute any alcohol or drug abuse patient.[facility] HospitalIn the event this information is protected by the Federal Confidentiality of Alcohol and Drug Abuse Patient Records regulations: The Federal rules restrict any use of the information to criminally investigate or prosecute any alcohol or drug abuse patient.[facility] HospitalIn the event this information is protected by the Federal Confidentiality of Alcohol and Drug Abuse Patient Records regulations: The Federal rules restrict any use of the information to criminally investigate or prosecute any alcohol or drug abuse patient.[facility] HospitalIn the event this information is protected by the Federal Confidentiality of Alcohol and Drug Abuse Patient Records regulations: The Federal rules restrict any use of the information to criminally investigate or prosecute any alcohol or drug abuse patient.[facility] HospitalIn the event this information is protected by the Federal Confidentiality of Alcohol and Drug Abuse Patient Records regulations: The Federal rules restrict any use of the information to criminally investigate or prosecute any alcohol or drug abuse patient.[facility] HospitalIn the event this information is protected by the Federal Confidentiality of Alcohol and Drug Abuse Patient Records regulations: The Federal rules restrict any use of the information to criminally investigate or prosecute any alcohol or drug abuse patient.[facility] HospitalIn the event this information is protected by the Federal Confidentiality of Alcohol and Drug Abuse Patient Records regulations: The Federal rules restrict any use of the information to criminally investigate or prosecute any alcohol or drug abuse patient.[facility] HospitalIn the event this information is protected by the Federal Confidentiality of Alcohol and Drug Abuse Patient Records regulations: The Federal rules restrict any use of the information to criminally investigate or prosecute any alcohol or drug abuse patient.[facility] HospitalIn the event this information is protected by the Federal Confidentiality of Alcohol and Drug Abuse Patient Records regulations: The Federal rules restrict any use of the information to criminally investigate or prosecute any alcohol or drug abuse patient.[facility] HospitalIn the event this information is protected by the Federal Confidentiality of Alcohol and Drug Abuse Patient Records regulations: The Federal rules restrict any use of the information to criminally investigate or prosecute any alcohol or drug abuse patient.[facility] HospitalIn the event this information is protected by the Federal Confidentiality of Alcohol and Drug Abuse Patient Records regulations: The Federal rules restrict any use of the information to criminally investigate or prosecute any alcohol or drug abuse patient.[facility] HospitalIn the event this information is protected by the Federal Confidentiality of Alcohol and Drug Abuse Patient Records regulations: The Federal rules restrict any use of the information to criminally investigate or prosecute any alcohol or drug abuse patient.[facility] HospitalIn the event this information is protected by the Federal Confidentiality of Alcohol and Drug Abuse Patient Records regulations: The Federal rules restrict any use of the information to criminally investigate or prosecute any alcohol or drug abuse patient.[facility] HospitalIn the event this information is protected by the Federal Confidentiality of Alcohol and Drug Abuse Patient Records regulations: The Federal rules restrict any use of the information to criminally investigate or prosecute any alcohol or drug abuse patient.[facility] HospitalIn the event this information is protected by the Federal Confidentiality of Alcohol and Drug Abuse Patient Records regulations: The Federal rules restrict any use of the information to criminally investigate or prosecute any alcohol or drug abuse patient.[facility] HospitalIn the event this information is protected by the Federal Confidentiality of Alcohol and Drug Abuse Patient Records regulations: The Federal rules restrict any use of the information to criminally investigate or prosecute any alcohol or drug abuse patient.[facility] HospitalIn the event this information is protected by the Federal Confidentiality of Alcohol and Drug Abuse Patient Records regulations: The Federal rules restrict any use of the information to criminally investigate or prosecute any alcohol or drug abuse patient.[facility] HospitalIn the event this information is protected by the Federal Confidentiality of Alcohol and Drug Abuse Patient Records regulations: The Federal rules restrict any use of the information to criminally investigate or prosecute any alcohol or drug abuse patient.[facility] HospitalIn the event this information is protected by the Federal Confidentiality of Alcohol and Drug Abuse Patient Records regulations: The Federal rules restrict any use of the information to criminally investigate or prosecute any alcohol or drug abuse patient.[facility] HospitalIn the event this information is protected by the Federal Confidentiality of Alcohol and Drug Abuse Patient Records regulations: The Federal rules restrict any use of the information to criminally investigate or prosecute any alcohol or drug abuse patient.[facility] HospitalIn the event this information is protected by the Federal Confidentiality of Alcohol and Drug Abuse Patient Records regulations: The Federal rules restrict any use of the information to criminally investigate or prosecute any alcohol or drug abuse patient.[facility] HospitalIn the event this information is protected by the Federal Confidentiality of Alcohol and Drug Abuse Patient Records regulations: The Federal rules restrict any use of the information to criminally investigate or prosecute any alcohol or drug abuse patient.[facility] HospitalIn the event this information is protected by the Federal Confidentiality of Alcohol and Drug Abuse Patient Records regulations: The Federal rules restrict any use of the information to criminally investigate or prosecute any alcohol or drug abuse patient.[facility] HospitalIn the event this information is protected by the Federal Confidentiality of Alcohol and Drug Abuse Patient Records regulations: The Federal rules restrict any use of the information to criminally investigate or prosecute any alcohol or drug abuse patient.[facility] HospitalIn the event this information is protected by the Federal Confidentiality of Alcohol and Drug Abuse Patient Records regulations: The Federal rules restrict any use of the information to criminally investigate or prosecute any alcohol or drug abuse patient.[facility] HospitalIn the event this information is protected by the Federal Confidentiality of Alcohol and Drug Abuse Patient Records regulations: The Federal rules restrict any use of the information to criminally investigate or prosecute any alcohol or drug abuse patient.[facility] HospitalIn the event this information is protected by the Federal Confidentiality of Alcohol and Drug Abuse Patient Records regulations: The Federal rules restrict any use of the information to criminally investigate or prosecute any alcohol or drug abuse patient.[facility] HospitalIn the event this information is protected by the Federal Confidentiality of Alcohol and Drug Abuse Patient Records regulations: The Federal rules restrict any use of the information to criminally investigate or prosecute any alcohol or drug abuse patient.[facility] HospitalIn the event this information is protected by the Federal Confidentiality of Alcohol and Drug Abuse Patient Records regulations: The Federal rules restrict any use of the information to criminally investigate or prosecute any alcohol or drug abuse patient.[facility] HospitalIn the event this information is protected by the Federal Confidentiality of Alcohol and Drug Abuse Patient Records regulations: The Federal rules restrict any use of the information to criminally investigate or prosecute any alcohol or drug abuse patient.[facility] HospitalIn the event this information is protected by the Federal Confidentiality of Alcohol and Drug Abuse Patient Records regulations: The Federal rules restrict any use of the information to criminally investigate or prosecute any alcohol or drug abuse patient.[facility] HospitalIn the event this information is protected by the Federal Confidentiality of Alcohol and Drug Abuse Patient Records regulations: The Federal rules restrict any use of the information to criminally investigate or prosecute any alcohol or drug abuse patient.[facility] HospitalIn the event this information is protected by the Federal Confidentiality of Alcohol and Drug Abuse Patient Records regulations: The Federal rules restrict any use of the information to criminally investigate or prosecute any alcohol or drug abuse patient.[facility] HospitalIn the event this information is protected by the Federal Confidentiality of Alcohol and Drug Abuse Patient Records regulations: The Federal rules restrict any use of the information to criminally investigate or prosecute any alcohol or drug abuse patient.[facility] HospitalIn the event this information is protected by the Federal Confidentiality of Alcohol and Drug Abuse Patient Records regulations: The Federal rules restrict any use of the information to criminally investigate or prosecute any alcohol or drug abuse patient.[facility] HospitalIn the event this information is protected by the Federal Confidentiality of Alcohol and Drug Abuse Patient Records regulations: The Federal rules restrict any use of the information to criminally investigate or prosecute any alcohol or drug abuse patient.[facility] HospitalIn the event this information is protected by the Federal Confidentiality of Alcohol and Drug Abuse Patient Records regulations: The Federal rules restrict any use of the information to criminally investigate or prosecute any alcohol or drug abuse patient.[facility] HospitalIn the event this information is protected by the Federal Confidentiality of Alcohol and Drug Abuse Patient Records regulations: The Federal rules restrict any use of the information to criminally investigate or prosecute any alcohol or drug abuse patient.[facility] HospitalIn the event this information is protected by the Federal Confidentiality of Alcohol and Drug Abuse Patient Records regulations: The Federal rules restrict any use of the information to criminally investigate or prosecute any alcohol or drug abuse patient.[facility] HospitalIn the event this information is protected by the Federal Confidentiality of Alcohol and Drug Abuse Patient Records regulations: The Federal rules restrict any use of the information to criminally investigate or prosecute any alcohol or drug abuse patient.[facility] HospitalIn the event this information is protected by the Federal Confidentiality of Alcohol and Drug Abuse Patient Records regulations: The Federal rules restrict any use of the information to criminally investigate or prosecute any alcohol or drug abuse patient.[facility] the event this information is protected by the Federal Confidentiality of Alcohol and Drug Abuse Patient Records regulations: The Federal rules restrict any use of the information to criminally investigate or prosecute any alcohol or drug abuse patient.[facility] HospitalIn the event this information is protected by the Federal Confidentiality of Alcohol and Drug Abuse Patient Records regulations: The Federal rules restrict any use of the information to criminally investigate or prosecute any alcohol or drug abuse patient.[facility] HospitalIn the event this information is protected by the Federal Confidentiality of Alcohol and Drug Abuse Patient Records regulations: The Federal rules restrict any use of the information to criminally investigate or prosecute any alcohol or drug abuse patient.[facility] HospitalIn the event this information is protected by the Federal Confidentiality of Alcohol and Drug Abuse Patient Records regulations: The Federal rules restrict any use of the information to criminally investigate or prosecute any alcohol or drug abuse patient.[facility] HospitalIn the event this information is protected by the Federal Confidentiality of Alcohol and Drug Abuse Patient Records regulations: The Federal rules restrict any use of the information to criminally investigate or prosecute any alcohol or drug abuse patient.[facility] HospitalIn the event this information is protected by the Federal Confidentiality of Alcohol and Drug Abuse Patient Records regulations: The Federal rules restrict any use of the information to criminally investigate or prosecute any alcohol or drug abuse patient.[facility] HospitalIn the event this information is protected by the Federal Confidentiality of Alcohol and Drug Abuse Patient Records regulations: The Federal rules restrict any use of the information to criminally investigate or prosecute any alcohol or drug abuse patient.[facility] HospitalIn the event this information is protected by the Federal Confidentiality of Alcohol and Drug Abuse Patient Records regulations: The Federal rules restrict any use of the information to criminally investigate or prosecute any alcohol or drug abuse patient.[facility] HospitalIn the event this information is protected by the Federal Confidentiality of Alcohol and Drug Abuse Patient Records regulations: The Federal rules restrict any use of the information to criminally investigate or prosecute any alcohol or drug abuse patient.[facility] Care Teams (unrecognized sec tion and content) Fire Equipment Inspector Relationship Specialty Start Date End Date Torres Yao MD [address] [place] [address] PCP - General Family Practice 01/14/15 Fire Equipment Inspector Relationship Specialty Start Date End Date Torres Yao MD [address] [place] [address] PCP - General Family Practice 01/14/15 Fire Equipment Inspector Relationship Specialty Start Date End Date Torres Yao MD [address] [place] [address] PCP - General Family Practice 01/14/15 Fire Equipment Inspector Relationship Specialty Start Date End Date Torres Yao MD [address] [place] [address] PCP - General Family Practice 01/14/15 Fire Equipment Inspector Relationship Specialty Start Date End Date Torres Yao MD [address] [facility] [place] [address] PCP - General Family Practice 01/14/15 Fire Equipment Inspector Relationship Specialty Start Date End Date Torres Yao MD [address] [facility] [place] [address] PCP - General Family Practice 01/14/15 Fire Equipment Inspector Relationship Specialty Start Date End Date Torres Yao MD [address] [facility] [place] [address] PCP - General Family Practice 01/14/15 Fire Equipment Inspector Relationship Specialty Start Date End Date Torres Yao MD [address] [facility] [place] [address] PCP - General Family Medicine 01/14/15 Fire Equipment Inspector Relationship Specialty Start Date End Date Torres Yao MD [address] [facility] [place] [address] PCP - General Family Medicine 01/14/15 Fire Equipment Inspector Relationship Specialty Start Date End Date Torres Yao MD [address] [facility] [place] [address] PCP - General Family Medicine 01/14/15 Fire Equipment Inspector Relationship Specialty Start Date End Date Torres Yao MD [address] [facility] [place] [address] PCP - General Family Medicine 01/14/15 Fire Equipment Inspector Relationship Specialty Start Date End Date Torres Yao MD [address] [facility] [place] [address] PCP - General Family Medicine 01/14/15 Fire Equipment Inspector Relationship Specialty Start Date End Date Torres Yao MD [address] [facility] [place] [address] PCP - General Family Medicine 01/14/15 Fire Equipment Inspector Relationship Specialty Start Date End Date Torres Yao MD [address] [facility] [place] [address] PCP - General Family Medicine 01/14/15 Fire Equipment Inspector Relationship Specialty Start Date End Date Torres Yao MD [address] [facility] [place] [address] PCP - General Family Medicine 01/14/15 Fire Equipment Inspector Relationship Specialty Start Date End Date Torres Yao MD [address] [facility] [place] [address] PCP - General Family Medicine 01/14/15 Fire Equipment Inspector Relationship Specialty Start Date End Date Torres Yao MD [address] [facility] [place] [address] PCP - General Family Medicine 01/14/15 Fire Equipment Inspector Relationship Specialty Start Date End Date Torres Yao MD [address] [facility] [place] [address] PCP - General Family Medicine 01/14/15 Fire Equipment Inspector Relationship Specialty Start Date End Date Torres Yao MD [address] [facility] [place] [address] PCP - General Family Medicine 01/14/15 Fire Equipment Inspector Relationship Specialty Start Date End Date Torres Yao MD [address] [facility] [place] [address] PCP - General Family Medicine 01/14/15 Fire Equipment Inspector Relationship Specialty Start Date End Date Torres Yao MD [address] [facility] [place] [address] PCP - General Family Medicine 01/14/15 Fire Equipment Inspector Relationship Specialty Start Date End Date Torres Yao MD [address] [facility] [place] [address] PCP - General Family Medicine 01/14/15 Fire Equipment Inspector Relationship Specialty Start Date End Date Torres Yao MD [address] [facility] [place] [address] PCP - General Family Medicine 01/14/15 Fire Equipment Inspector Relationship Specialty Start Date End Date Torres Yao MD [address] [facility] [place] [address] PCP - General Family Medicine 01/14/15 Fire Equipment Inspector Relationship Specialty Start Date End Date Torres Yao MD [address] [facility] [place] [address] PCP - General Family Medicine 01/14/15 Fire Equipment Inspector Relationship Specialty Start Date End Date Torres Yao MD [address] [facility] [place] [address] PCP - General Family Medicine 01/14/15 Fire Equipment Inspector Relationship Specialty Start Date End Date Torres Yao MD [address] [facility] [place] [address] PCP - General Family Medicine 01/14/15 Fire Equipment Inspector Relationship Specialty Start Date End Date Torres Yao MD [address] [facility] [place] [address] PCP - General Family Medicine 01/14/15 Fire Equipment Inspector Relationship Specialty Start Date End Date Torres Yao MD [address] [facility] [place] [address] PCP - General Family Medicine 01/14/15 Fire Equipment Inspector Relationship Specialty Start Date End Date Torres Yao MD [address] [place], [place] [address] PCP - General Family Medicine 01/14/15 Fire Equipment Inspector Relationship Specialty Start Date End Date Torres Yao MD [address] [place], [place] [address] PCP - General Family Medicine 01/14/15 Fire Equipment Inspector Relationship Specialty Start Date End Date Torres Yao MD [address] [place], [place] [address] PCP - General Family Medicine 01/14/15 Fire Equipment Inspector Relationship Specialty Start Date End Date Torres Yao MD [address] [place] [address] PCP - General Family Medicine 01/14/15 Fire Equipment Inspector Relationship Specialty Start Date End Date Torres Yao MD [address] [place] [address] PCP - General Family Medicine 01/14/15 Fire Equipment Inspector Relationship Specialty Start Date End Date Torres Yao MD [address] [place] [address] PCP - General Family Medicine 01/14/15 Fire Equipment Inspector Relationship Specialty Start Date End Date Torres Yao MD [address] [place], [place] [address] PCP - General Family Medicine 01/14/15 Fire Equipment Inspector Relationship Specialty Start Date End Date Torres Yao MD [address] [place], [place] [address] PCP - General Family Medicine 01/14/15 Fire Equipment Inspector Relationship Specialty Start Date End Date Torres Yao MD [address] [place] [address] PCP - General Family Medicine 01/14/15 Fire Equipment Inspector Relationship Specialty Start Date End Date Torres Yao MD [address] [place] [address] PCP - General Family Medicine 01/14/15 Fire Equipment Inspector Relationship Specialty Start Date End Date Torres Yao MD [address] [place] [address] PCP - General Family Medicine 01/14/15 Fire Equipment Inspector Relationship Specialty Start Date End Date Torres Yao MD [address] [place] [address] PCP - General Family Medicine 01/14/15 Fire Equipment Inspector Relationship Specialty Start Date End Date Torres Yao MD [address] [place] [address] PCP - General Family Medicine 01/14/15 Fire Equipment Inspector Relationship Specialty Start Date End Date Torres Yao MD [address] [place] [address] PCP - General Family Medicine 01/14/15 Fire Equipment Inspector Relationship Specialty Start Date End Date Torres Yao MD [address] [place], [place] [address] PCP - General Family Medicine 01/14/15 Fire Equipment Inspector Relationship Specialty Start Date End Date Torres Yao MD [address] [place] [address] PCP - General Family Medicine 01/14/15 Beryl Tejada APRN.GROUP RESERVATIONS COORDINATOR [address] [place] [address] Day Care Center Director Family [facility] 10/07/24 Ellen Rene STAFF ELECTRONIC WARFARE OFFICER.GROUP RESERVATIONS COORDINATOR [address] [facility] [place] [address] [facility] Fire Equipment Inspector Relationship Specialty Start Date End Date Torres Yao MD [address] [place] [address] PCP - General Family Medicine 01/14/15 Beryl Tejada STAFF ELECTRONIC WARFARE OFFICER.GROUP RESERVATIONS COORDINATOR [address] [place] [address] [facility]/07/24 Ellen Rene STAFF ELECTRONIC WARFARE OFFICER.GROUP RESERVATIONS COORDINATOR [address] [place] [address] [facility] 10/07/24 Fire Equipment Inspector Relationship Specialty Start Date End Date Torres Yao MD [address] [place] [address] PCP - General Family Medicine 01/14/15 Beryl Tejada STAFF ELECTRONIC WARFARE OFFICER.GROUP RESERVATIONS COORDINATOR [address] [place] [address] [facility] 10/07/24 Ellen Rene STAFF ELECTRONIC WARFARE OFFICER.GROUP RESERVATIONS COORDINATOR [address] [facility] [place] [address] [facility] 10/07/24 Fire Equipment Inspector Relationship Specialty Start Date End Date Torres Yao MD [address] [facility] [place] [address] PCP - General Family Medicine 01/14/15 Beryl Tejada APRN.GROUP RESERVATIONS COORDINATOR [address] [place] [address] Day Care Center Director Family Medicine 10/07/24 Ellen Rene STAFF ELECTRONIC WARFARE OFFICER.GROUP RESERVATIONS COORDINATOR [address] [facility] [place] [address] Day Care Center Director Family Medicine 10/07/24 Fire Equipment Inspector Relationship Specialty Start Date End Date Torres Yao MD [address] [facility] [place] [address] PCP - General Family Medicine 01/14/15 Beryl Tejada STAFF ELECTRONIC WARFARE OFFICER.GROUP RESERVATIONS COORDINATOR [address] [facility] [place] [address] Day Care Center Director Family Medicine 10/07/24 Ellen Rene STAFF ELECTRONIC WARFARE OFFICER.GROUP RESERVATIONS COORDINATOR [address] [place] [address] Day Care Center Director Family Medicine 10/07/24 Fire Equipment Inspector Relationship Specialty Start Date End Date Torres Yao MD [address] [facility] [place] [address] PCP - General Family Medicine 01/14/15 Beryl Tejada APRN.GROUP RESERVATIONS COORDINATOR [address] [facility] [place] [address] Day Care Center Director Family Medicine 10/07/24 Ellen Rene STAFF ELECTRONIC WARFARE OFFICER.GROUP RESERVATIONS COORDINATOR [address] [place] [address] Day Care Center Director Family [facility] 10/07/24 Fire Equipment Inspector Relationship Specialty Start Date End Date Torres Yao MD [address] [facility] [place] [place] [address] PCP - General Family Medicine 01/14/15 Beryl Tejada, STAFF ELECTRONIC WARFARE OFFICER.GROUP RESERVATIONS COORDINATOR [address] [place] [address] Day Care Center Director Family Medicine 10/07/24 Ellen Rene STAFF ELECTRONIC WARFARE OFFICER.GROUP RESERVATIONS COORDINATOR [address] [place] [address] [facility]/07/24 Fire Equipment Inspector Relationship Specialty Start Date End Date Torres Yao MD [address] [place] [address] PCP - General Family Medicine 01/14/15 Beryl Tejada, STAFF ELECTRONIC WARFARE OFFICER.GROUP RESERVATIONS COORDINATOR [address] [place] [address] Day Care Center Director Family Medicine 10/07/24 Ellen Rene STAFF ELECTRONIC WARFARE OFFICER.GROUP RESERVATIONS COORDINATOR [address] [place] [address] [facility] 10/07/24 Fire Equipment Inspector Relationship Specialty Start Date End Date Torres Yao MD [address] [place] [address] PCP - General Family Medicine 01/14/15 Beryl Tejada, STAFF ELECTRONIC WARFARE OFFICER.GROUP RESERVATIONS COORDINATOR [address] [place] [address] Day Care Center Director Family Medicine 10/07/24 Ellen Rene STAFF ELECTRONIC WARFARE OFFICER.GROUP RESERVATIONS COORDINATOR [address] [facility] [place] [address] [phone] [facility] 10/07/24 Fire Equipment Inspector Relationship Specialty Start Date End Date Torres Yao MD [address] [place], [place] [address] [phone] PCP - General Family Medicine 01/14/15 Beryl Tejada STAFF ELECTRONIC WARFARE OFFICER.GROUP RESERVATIONS COORDINATOR [address] [place] [address] [facility] 10/07/24 Ellen Rene STAFF ELECTRONIC WARFARE OFFICER.GROUP RESERVATIONS COORDINATOR [address] [place] [address] [facility] 10/07/24 Fire Equipment Inspector Relationship Specialty Start Date End Date Torres Yao MD [address] [place] [address] PCP - General Family Medicine 01/14/15 Beryl Tejada, STAFF ELECTRONIC WARFARE OFFICER.GROUP RESERVATIONS COORDINATOR [address] [place] [address] [facility] 10/07/24 Ellen Rene STAFF [employer]LECT[employer]IC [employer]ARE OFFICER.GROUP RESERVATIONS COORDINATOR [address] [place] [address] [facility] 10/07/24 Fire Equipment Inspector Relationship Specialty Start Date End Date Torres Yao MD [address] [place], [place] [id number] [phone] PCP - General Family Medicine 01/14/15 Beryl Tejada APRN.GROUP RESERVATIONS COORDINATOR [address] [place] [address] [facility]24 Ellen Rene APRN.GROUP RESERVATIONS COORDINATOR [address] [place] [address] [facility] 10/07/24 Fire Equipment Inspector Relationship Specialty Start Date End Date Torres Yao MD [address] [facility] [place] [address] PCP - General Family Medicine 01/14/15 Beryl Tejada APRN.GROUP RESERVATIONS COORDINATOR [address] [place] [address] [facility] 10/07/24 Ellen Rene APRN.GROUP RESERVATIONS COORDINATOR [address] [facility] [place] [address] [facility] 10/07/24 Fire Equipment Inspector Relationship Specialty Start Date End Date Torres Yao MD [address] [facility] [address] PCP - General Family Medicine 01/14/15 Beryl Tejada STAFF ELECTRONIC [employer]ARFARE OFFICER.GROUP RESERVATIONS COORDINATOR [address] [place] [address] [facility] 10/07/24 Ellen Rene APRN.GROUP RESERVATIONS COORDINATOR [address] [facility] [address] [facility] 10/07/24 Team Status: Active Member Role Status Dates Dr. Torres Yao MD Family Provider Active Dr. Torres Yao MD Primary Care Provider Active Team Status: Active Member Role Status Dates Dr. Torres Yao MD Primary Care Provider Active Start: April 21, 2025 Dr. Torres Yao MD Referring Provider Active Start: April 21, 2025 Mahad Saleh MD Attending Provider Active St art: April 21, 2025 Team Status: Inactive Member Role Status Dates Dr. Torres Yao MD Primary Care Provider Active Start: April 21, 2025 End: April 21, 2025 Dr. Manuel Leary MD Attending Provider Active S tart: April 21, 2025 End: April 21, 2025 Team Status: Inactive Member Role Status Dates Dr. Torres Yao MD Primary Care Provider Active Start: April 21, 2025 End: April 21, 2025 Dr. Torres Yao MD Referring Provider Active Start: April 21, 2025 End: April 21, 2025 Mahad Saleh MD Attending Provider Active St art: April 21, 2025 End: April 21, 2025 Fire Equipment Inspector Relationship Specialty Start Date End Date Torres Yao MD [address] [place] [address] PCP - General Family Medicine 01/14/15 Beryl Tejada, KIM.GROUP RESERVATIONS COORDINATOR [address] [place] [address] [facility] Director Family Medicine 10/07/24 Ellen Rene STAFF ELECTRONIC WARFARE OFFICER.GROUP RESERVATIONS COORDINATOR [address] [place], [place] [id number] [facility] Director Family Medicine 10/07/24 Fire Equipment Inspector Relationship Specialty Start Date End Date Torres Yao MD [address] [place], [place] [address] PCP - General Family Medicine 01/14/15 Beryl Tejada, STAFF ELECTRONIC [employer]ARFARE OFFICER.GROUP RESERVATIONS COORDINATOR [address] [place] [address] [facility] 10/07/24 Ellen Rene APRN.GROUP RESERVATIONS COORDINATOR [address] [place] [address] [facility] 10/07/24 Fire Equipment Inspector Relationship Specialty Start Date End Date Torres Yao MD [address] [place] [address] PCP - General Family Medicine 01/14/15 Beryl Tejada APRN.GROUP RESERVATIONS COORDINATOR [address] [facility] [place] [address] [facility] 10/07/24 Ellen Rene STAFF ELECTRONIC WARFARE OFFICER.GROUP RESERVATIONS COORDINATOR [address] [place] [address] [facility] 10/07/24 Team Status: Active Member Role/Relationship Status Dates Dr. Torres Yao MD Primary Care Provider Active Team Status: Inactive Member Role/Relationship Status Dates Dr. Torres Yao MD Primary Care Provider Active Start: April 21, 2025 End: April 21, 2025 Dr. Torres Yao MD Referring Provider Active Start: April 21, 2025 End: April 21, 2025 Mahad Saleh MD Attending Provider Active St art: April 21, 2025 End: April 21, 2025 Team Status: Inactive Member Role/Relationship Status Dates Dr. Torres Yao MD Primary Care Provider Active Start: April 21, 2025 End: April 21, 2025 Dr. Manuel Leary MD Attending Provider Active S tart: April 21, 2025 End: April 21, 2025 Team Status: Active Member Role/Relationship Status Dates Dr. Torres Yao MD Primary Care Provider Active Start: May 20, 2025 Mahad Saleh MD Attending Provider Active St art: May 20, 2025 Mahad Saleh MD Referring Provider Active St art: May 20, 2025 Team Status: Inactive Member Role/Relationship Status Dates Dr. Torres Yao MD Primary Care Provider Active Start: May 22, 2025 End: May 22, 2025 Dr. Torres Yao MD Referring Provider Active Start: May 22, 2025 End: May 22, 2025 Mahad Saleh MD Attending Provider Active St art: May 22, 2025 End: May 22, 2025 Team Status: Inactive Member Role/Relationship Status Dates Dr. Torres Yao MD Primary Care Provider Active Start: May 20, 2025 End: May 20, 2025 Mahad Saleh MD Attending Provider Active St art: May 20, 2025 End: May 20, 2025 Mahad Saleh MD Referring Provider Active St art: May 20, 2025 End: May 20, 2025 Fire Equipment Inspector Relationship Specialty Start Date End Date Torres Yao MD [address] [place], [place] [id number] PCP - General Family Medicine 01/14/15 Beryl Tejada APRN.GROUP RESERVATIONS COORDINATOR [address] [place], [place] [id number] [facility] 10/07/24 Ellen Rene APRN.GROUP RESERVATIONS COORDINATOR [address] [place], [place] [id number] [facility] 10/07/24 Reason for Visit (unrecogniz ed section and content) Reason Comments Physical Therapy Specialty Diagnoses / Procedures Referred By Contac t Referred To Contact [facility] Diagnoses Acute midline low back pain without sciatica Procedures CONSULT TO PHYSICAL THERAPY PHYSICAL THERAPY EVALUATION HIGH COMPLEX 45 MINS Ellen Rene, STAFF ELECTRONIC WARFARE OFFICER.GROUP RESERVATIONS COORDINATOR [address] [place] [address] Phone: tel: fax: [facility] [address] [place] [address] Referral ID Status Reason Start Date Expiration Date Visits Requested Visits Authorized [id number] Authorized PCP Requested Referral Auto-Generate d Referral 05/17/2024 05/10/2025 99 99 Reason Comments PT Progress Note Specialty Diagnoses / Procedures Referred By Contac t Referred To Contact PHYSICAL THERAPY Diagnoses Subacromial bursitis of both shoulders Bilateral shoulder region arthritis Procedures CONSULT TO PHYSICAL THERAPY PHYSICAL THERAPY EVALUATION HIGH COMPLEX 45 MINS Freeman Sarabia PA-C [address] [place] [address] Phone: tel: fax: [facility] [address] [place] [address] Phone: tel: fax: Referral ID Status Reason Start Date Expiration Date Visits Requested Visits Authorized [id number] Authorized PCP Requested Referral Auto-Generate d Referral 11/22/2024 11/22/2025 99 99 Reason Comments PT Eval Specialty Diagnoses / Procedures Referred By Contac t Referred To Contact PHYSICAL THERAPY Diagnoses Subacromial bursitis of both shoulders Bilateral shoulder region arthritis Procedures CONSULT TO PHYSICAL THERAPY PHYSICAL THERAPY EVALUATION HIGH COMPLEX 45 MINS Freeman Sarabia PA-C [address] [place] [address] [facility] [address] [place] [address] Referral ID Status Reason Start Date Expiration Date Visits Requested Visits Authorized [id number] Authorized PCP Requested Referral Auto-Generate d Referral 11/22/2024 11/22/2025 99 99 Reason Comments PT Discharge Specialty Diagnoses / Procedures Referred By Contac t Referred To Contact [facility] Diagnoses Acute midline low back pain without sciatica Procedures CONSULT TO PHYSICAL THERAPY PHYSICAL THERAPY EVALUATION HIGH COMPLEX 45 MINS Ellen Rene, STAFF ELECTRONIC WARFARE OFFICER.GROUP RESERVATIONS COORDINATOR [address] [place] [address] [facility] [address] [place] [address] Referral ID Status Reason Start Date Expiration Date Visits Requested Visits Authorized [id number] Authorized PCP Requested Referral Auto-Generate d Referral 05/17/2024 05/10/2025 99 99 Reason Comments Glucometer New Prescription Reason Comments 6 Month Exam needs new glucometer order today Reason Onset Date Comments Refill Request 05/09/2022 Reason Onset Date Comments Refill Request Refill Request 05/19/2022 Reason Comments Pain Reason Onset Date Comments Refill Request 06/20/2022 Reason Onset Date Comments Refill Request 08/18/2022 Reason Onset Date Comments Refill Request 09/16/2022 Reason Comments Results Reason Comments Pain generalized Reason Onset Date Comments Refill Request 11/22/2022 Reason Onset Date Comments Refill Request 11/30/2022 Reason Comments Refill Request Reason Onset Date Comments Refill Request 02/06/2023 Reason Comments Pain Reason Comments PA of pregabalin / request for shoulder inj Specialty Diagnoses / Procedures Referred By Mercedes t Referred To Contact Diagnoses Bursitis of left shoulder Procedures ARTHROCENTESIS ASPIR&/INJ MAJOR JT/BURSA W/O US ARTHROCENTESIS,ASPIRATION AND/OR INJECTION,MAJOR JOINT OR BURSA W/O US GUIDANCE [facility] [address] [place] [address] Referral ID Status Reason Start Date Expiration Date Visits Re quested Visits Authorized [id number] 1 Reason Onset Date Comments Refill Request 06/20/2023 Reason Onset Date Comments Refill Request 06/26/2023 Reason Onset Date Comments Refill Request 07/20/2023 Reason Onset Date Comments Refill Request 08/21/2023 Reason Comments Back Pain Reason Onset Date Comments Refill Request 09/18/2023 Reason Comments Belbuca not covered Reason Onset Date Comments Refill Request 10/09/2023 Reason Comments 6 Month Exam Reason Onset Date Comments Refill Request 12/15/2023 Reason Comments Fibromyalgia Reason Onset Date Comments Refill Request 01/15/2024 Reason Comments Rectal Problem Blood in stool X 1 w [place]. 3 episodes Reason Comments Pain Generalized pain Reason Onset Date Comments Refill Request 02/08/2024 Reason Comments Sleep Problem Reason Onset Date Comments Refill Request 03/11/2024 Reason Comments generalized pain Reason Comments Patient Update Increased pain Reason Comments Low Back Pain Pain Shoulders, knees Reason Comments Back Pain 1 month follow up Reason Comments Patient concern Reason Onset Date Comments Refill Request 07/16/2024 Reason Comments Back Pain 3 month f/u Reason Comments Back Pain Pain (Shoulder Pain) left Reason Onset Date Comments Refill Request 12/27/2024 Reason Comments Back Pain Pain (Shoulder Pain) bilateral Reason Comments 6 Month Exam Reason Comments Urinary Symptoms Reason Comments Edema Bilateral legs Reason Comments Mood PRN Active and Recently Administ ered Medications (unrecognized section and content) Medication Order 09/13/2022 09/14/2022 09/15/2022 bupivacaine HCl injection (SENSORCAINE) (CANCELED) X (OR/PROCEDURE) PRN, Starting on Milana 09/15/22 at 1100, Until Milana 09/15/22 at 1102, Intraprocedure 1100 (Given - Provid er: Min Velazco MD) methylPREDNISolone acetate injection (DEPO-Medrol) (CANCELED) X (OR/PROCEDURE) PRN, Starting on Mil[place] 09/15/22 at 1100, Until Mil[place] 09/15/22 at 1102, Intraprocedure 1100 (Given - Provid er: Min Velazco MD) PRN Medication Order 01/31/2023 02/01/2023 02/02/2023 BUPivacaine HCl injection (SENSORCAINE) (CANCELED) X (OR/PROCEDURE) PRN, Starting on Milana 02/02/23 at 1033, Until Milana 02/02/23 at 1035, Intraprocedure 1033 (Given - Provid er: Min Velazco MD) methylPREDNISolone acetate injection (DEPO-Medrol) (CANCELED) X (OR/PROCEDURE) PRN, Starting on Milana 02/02/23 at 1033, Until Milana 02/02/23 at 1035, Intraprocedure 1033 (Given - Provid er: Min Velazco MD) PRN Medication Order 05/30/2023 05/31/2023 06/01/2023 BUPivacaine HCl injection (SENSORCAINE) (CANCELED) X (OR/PROCEDURE) PRN, Starting on Mil[place] 06/01/23 at 1624, Until Milana 06/01/23 at 1631, Intraprocedure 1624 (Given - Provid er: Min Velazco MD) methylPREDNISolone acetate injection (DEPO-Medrol) (CANCELED) X (OR/PROCEDURE) PRN, Starting on Mil[place] 06/01/23 at 1625, Until Milana 06/01/23 at 1631, Intraprocedure 1625 (Given - Provid er: Min Velazco MD) PRN Medication Order 08/27/2023 08/28/2023 08/29/2023 BUPivacaine HCl injection (SENSORCAINE) (CANCELED) X (OR/PROCEDURE) PRN, Starting on Mon08/29/23 at 1507, Until Mon08/29/23 at 1516, Intraprocedure 1507 (Given - Provid er: Min Velazco MD) methylPREDNISolone acetate injection (DEPO-Medrol) (CANCELED) X (OR/PROCEDURE) PRN, Starting on Mon08/29/23 at 1508, Until Mon08/29/23 at 1516, Intraprocedure 1508 (Given - Provid er: Min Velazco MD) PRN Medication Order 01/02/2024 01/03/2024 01/04/2024 BUPivacaine HCl injection (SENSORCAINE) (CANCELED) X (OR/PROCEDURE) PRN, Starting on Milana 01/04/24 at 1450, Until Milana 01/04/24 at 1453, Intraprocedure 1450 (Given - Provid er: Min Velazco MD) methylPREDNISolone acetate injection (DEPO-Medrol) (CANCELED) X (OR/PROCEDURE) PRN, Starting on Mil[place] 01/04/24 at 1450, Until Milana 01/04/24 at 1453, Intraprocedure 1450 (Given - Provid er: Min Velazco MD) PRN Medication Order 09/15/2024 09/16/2024 09/17/2024 lidocaine (PF) 10 mg/mL (1 %) injection (XYLOCAINE) (CANCELED) X (OR/PROCEDURE) PRN, Starting on e 09/17/24 at 1316, Until Mon09/17/24 at 1325, Intraprocedure 1316 (Given - Provid er: Isaac Cannon MD)1319 (Given - Provider: Isaac Cannon MD) methylPREDNISolone acetate injection (DEPO-Medrol) (CANCELED) X (OR/PROCEDURE) PRN, Starting on Mon09/17/24 at 1316, Until Mon09/17/24 at 1325, Intraprocedure 1316 (Given - Provid er: Isaac Cannon MD) Goals (unrecognized section and content) Goals may be documented in a n alternate section FOR RECORDS PERTAINING TO PATIENTS WHO ARE OR HAVE BEEN ENROLLED IN A CHEMICAL DEPENDENCY/SUBSTANCEABUSE PROGRAM, SOME INFORMATION MAY BE OMITTED. This clinical summary was aggregated from multiple sources. Caution should be exercised in using it in the provision of clinical care. This summary normalizes information from multiple sources, and as a consequence, information in this document may materially change the coding, format and clinical context of patient data. In addition, data may be omitted in some cases. CLINICAL DECISIONS SHOULD BE BASED ON THE PRIMARY CLINICAL RECORDS. [employer] provides no warranty or guarantee of the accuracy or completeness of information in this document.
[2025-06-11 05:50] LABS: Internal QC Validated? YES +Cl - CLEAR BKGD; Pregnancy, Urine Negative Negative; Record Kit Lot#,Urine Preg 0000947241
[2025-06-11] MEDS: Lactated Ringers 1,000 ML 15 ML IV (06:00)
--- NOTE | 2025-06-11 06:45 | PCM.PRE.AN2 ---
ASA Classification* ASA Classification ASA Classification: 2 Assessment & Plan Anesthesia* Anesthesia Assessment Anesthesia Assessment: Discussed sedation and/or anesthesia options, risks, benefits, and alternatives with patient/parents/legal guardian/POA. Questions invited. The patient/parents/legal guardian/POA seems to understand and agrees to proceed with anesthesia plan. Reviewed the physical assessment, medical history, allergy history and patient home medications list prior to surgery/procedure/anesthetic and documented any changes. Performed airway and anesthesia risk assessments. Anesthesia Type Anesthesia Type: General and Block History Source History Obtained from:: Patient and Chart Anesthesia Focused Assessment* Temperature: 97.5 F Pulse Rate: 47 Blood Pressure: 101/69 Respiratory Rate: 16 Pulse Ox: 100 Oxygen Delivery Method: Room Air Airway Assessment Mouth opens: >3 cm Mallampati Score: II Teeth Condition: Intact (Missing few teeth posteriorly and chipped front ) Neck Range of motion (ROM): Full ROM Labs Anesthesia Preop lab: CBC CHEMISTRY POC Glucose 108 mg/dL (70-110) 12/23/19 11:52 12/23/19 COAG Urine Test Negative Negative 06/11/25 05:35 06/11/25 Pre-Assessment Diagnosis/Proposed Procedure Planned Operative Procedure(s): (L) Left shoulder Arthroscopy, subacromial decompression, rotator cuff repair, allograft tissue augmentation Anesthesia History 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 When Was Last Pacemaker Check QUESTION #4 FULL TEXT: You/Your Family Experience fever (hyperthermia) with Anesthesia Last Oral Intake Last Oral intake: Last Oral Intake NPO since 05:30 06/11/25 05:57 Meds taken in AM with sips of water? Meds patient instructed to take am of surgery PONV PONV - transit survey worker: PONV - transit survey worker Female Yes 05/29/25 15:27 HX of Motion Sickness No 05/29/25 15:27 HX of N/V After Surgery No 05/29/25 15:27 Non-Smoker Yes 05/29/25 15:27 Duration of Surgery greater Yes 05/29/25 15:27 than 60 minutes Number of Risk Factors 3 05/29/25 15:27 PONV Score Moderate Risk 05/29/25 15:27 Height & Weight Height & Weight: Anesthesia: Height & Weight Height 5 ft 8 in 06/11/25 05:57 Weight: 87 kg 06/11/25 05:57 Body Mass Index (BMI) 29.1 06/11/25 05:57 Respiratory Assessment Respiratory Assessment - transit survey worker: Respiratory Tract Infection Hx - transit survey worker Hx Respiratory Tract Infection No 05/29/25 15:27 STOP Sleep Apnea STOP Sleep Apnea - transit survey worker: STOP Sleep Apnea - transit survey worker Hx Hypertension Yes: CONTROLLED WITH MED 05/29/25 15:27 Hx Sleep Apnea No 05/29/25 15:27 CPAP Yes 05/21/25 11:11 BIPAP No 05/21/25 11:11 Do you snore loudly (louder No 05/29/25 15:27 than talking or can be heard Do you often feel tired/ No 05/29/25 15:27 fatigued/ sleepy during daytime? Has anyone observed you stop No 05/29/25 15:27 breathing during sleep? STOP Results Negative 05/29/25 15:27 QUESTION #5 FULL TEXT : Do you snore loudly (louder than talking or can be heard through closed doors)? 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 Specify any problems Hx of Preganancy in last 3 N/A 05/29/25 15:27 Months Nurse Filling Out Transfusion NBUCHER 05/29/25 15:27 & Questions: Date: 05/29/25 05/29/25 15:27 Time: 15:30 05/29/25 15:27 Patient unable to answer at this time (ie. confused, unrespo /Reproduction History /Reproductive History - transit survey worker: /Reproductive Hx- transit survey worker Hx Now No 05/29/25 15:27 Gestational Age (in weeks): EDC: Hx Hx Para Hx Section SAB No 05/29/25 15:27 Active Medications Active Medications: Current Medications Generic Name Dose Route Start Last Admin Trade Name Freq PRN Reason Stop Dose Admin Cefazolin Sodium 2 gm/ Sodium 110 mls @ 200 mls/hr 06/11/25 07:30 Chloride IV 06/11/25 08:02 INTRAOP ONE Lactated Ringer's 1,000 mls @ 15 mls/hr 06/11/25 05:45 06/11/25 06:00 IV 15 mls/hr .Q48H BURTON Administration PFSH Medical History Wears glasses Depression Anxiety Bipolar disorder Arthritis Restless legs Former smoker Impingement of left shoulder Left rotator cuff tear Left shoulder pain Home Medications ?Medication ?Instructions ?Recorded ?Last Taken ?Type lamotrigine 200 mg tablet 100 mg PO DAILY 12/20/19 Unknown History losartan 25 mg tablet 25 mg PO DAILY 12/20/19 12/23/19 08:45 History topiramate 200 mg capsule 500 mg PO QHS MOOD STABILIZER 12/20/19 Unknown History sprinkle,extended release 24 hr valbenazine 80 mg capsule 80 mg PO DAILY GEODONE SE 12/20/19 Unknown History ziprasidone HCl 80 mg capsule 100 mg PO DAILY BIPOLAR 12/20/19 Unknown History trazodone 100 mg tablet 100 - 300 mg PO QHS PRN sleep 05/22/25 Unknown History benztropine 2 mg tablet 2 mg PO 4X/DAY 05/29/25 Unknown History pregabalin 100 mg capsule 100 mg PO TID 05/29/25 Unknown History spironolactone 25 mg tablet 50 mg PO BID 05/29/25 Unknown History Allergy/AdvReac Type Severity Reaction Status Date / Time Penicillins (PCN) Allergy Anaphylaxis Verified 06/11/25 05:55 amoxicillin AdvReac Anaphylaxis Verified 06/11/25 05:55 Surgical History History of wisdom tooth extraction History of tonsillectomy Social History Smoking Status: Former smoker Review of Systems (Anesthesia) ROS Narrative System reviewed and no additional complaints, except as documented.
--- NOTE | 2025-06-11 07:04 | PCM.HP.STD ---
HPI - General HPI Narrative PRADEEP CROWE, is a 44 F who presents for left shoulder arthroscopy, subacromial decompression, rotator cuff repair, allograft tissue augmentation. No changes to history and physical exam. Left shoulder marked. Risks alternatives benefits as well as postoperative instructions and narcotic counseling given. Plan for preoperative block. The patient understands wished to proceed no further questions or concerns. MR#: [id number] Acct: [id number] Name: PRADEEP CROWE Rep #: [id number] : 1980 Provider: Dr. Mahad Saleh MD Age/Sex: 44/F Location: [facility] [place] Status: Signed Intake Vital Signs 04/21/2511:00 05/21/2511:11 05/22/2510:24 Height 5 ft 8 in 5 ft 8 in 5 ft 8 in Weight: 194 lb 4 oz 187 lb BMI 29.5 28.4 Intake Visit Reasons: LEFT SHOULDER Chief Complaint: Left shoulder pain Accompanied by: Self Is patient in pain?: Yes Pain scale (1-10): 5 Allergies Penicillins (PCN) Allergy (Verified 05/22/25 10:26) Anaphylaxis Medications ?Medication ?Instructions ?Recorded ?Confirmed ?Type buprenorphine HCl 150 mcg buccal 150 mcg BC BID PAIN 12/20/19 05/22/25 History film carvedilol 25 mg tablet 50 mg PO BID 12/20/19 05/22/25 History cyclobenzaprine 5 mg tablet 5 mg PO TID PRN MUSCLE RELAXANT 12/20/19 05/22/25 History diclofenac sodium 1 % topical gel 100 g TP PRN PRN Pain Or Fever 12/20/19 05/22/25 History furosemide 40 mg tablet 60 mg PO DAILY 12/20/19 05/22/25 History gabapentin 600 mg tablet,extended 600 mg PO Q4H 12/20/19 05/22/25 History release 24 hr lamotrigine 200 mg tablet 400 mg PO DAILY 12/20/19 05/22/25 History losartan 25 mg tablet 25 mg PO DAILY 12/20/19 05/22/25 History metformin 500 mg tablet,extended 500 mg PO DAILY DIABETES 12/20/19 05/22/25 History release 24 hr perphenazine 2 mg tablet 2 mg PO DAILY 12/20/19 05/22/25 History topiramate 200 mg capsule 500 mg PO QHS MOOD STABILIZER 12/20/19 05/22/25 History sprinkle,extended release 24 hr valbenazine 80 mg capsule 80 mg PO DAILY GEODONE SE 12/20/19 05/22/25 History ziprasidone HCl 80 mg capsule 100 mg PO DAILY BIPOLAR 12/20/19 05/22/25 History trazodone 100 mg tablet mg PO 05/22/25 05/22/25 History Have you fallen in the past year?: No PFSH Medical History (Updated 05/22/25 @ 10:27 by Mahad Saleh MD) Impingement of left shoulder Left rotator cuff tear Left shoulder pain Social History Smoking Status: Former smoker HPI LEFT SHOULDER Details: This documentation accurately reflects the service provided and the decisions made by me, Dr. Mahad Saleh MD 05/22/25 1024. Part of today?s visit was documented by [ ], acting as scribe. PRADEEP CROEW is a 44 year old F here today for FU L shoulder MRI. on disability for mental health, did PT for 15 visits, failed a cortisone injection. worse with even light lifting. Ortho Exam General General: Yes no acute distress Neurologic: Yes alert and Yes oriented x3 Psychologic: Yes reasonable and appropriate Supplemental Info [facility] Imaging Services [address] [place] [id number] Upper Ext Joint Only(Routine) MR#: [id number] Acct: [id number] Name: PRADEEP CROWE Rep #: [id number] : 1980 F 44 From: Tomer Arauz MD PCP: Dr. Torres Moore MD Status: REG CLI Study: Upper Ext Joint Only(Routine) Date of Exam: 05/20/25 Exam# [id number] Ordering Dr: Mahad Saleh MD PROCEDURE: UPPER EXT JOINT ONLY(ROUTINE) 05/20/2025 REASON FOR EXAM: PAIN, RULE OUT CUFF TEAR TECHNIQUE: UPPER EXT JOINT ONLY(ROUTINE) Multiplanar and multisequence images were obtained without IV contrast administration. COMPARISON: April 21, 2025 x-ray FINDINGS: Bone Marrow: There is no bony contusion or occult fracture. Rotator cuff: There is no muscular atrophy. There is a full-thickness, full width tear of the supraspinatus with 1.8 cm of retraction. There is moderate distal infraspinatus tendinopathy and subscapularis tendinopathy without full-thickness tear or retraction. The teres minor appears intact. AC joint: The AC joint is aligned without evidence of separation. There is a type 3 acromion with impingement configuration. Labrum: The labrum appears intact. Biceps tendon: The biceps tendon is present in the biceps tendon groove, with intact anchors. Effusion: There is a small joint effusion which extends into the subacromial subdeltoid bursa. MRI/Upper Ext Joint Only(Routine) IMPRESSION: There is a full-thickness, full width tear of the supraspinatus with 1.8 cm of retraction. There is moderate distal infraspinatus tendinopathy and subscapularis tendinopathy without full-thickness tear or retraction. There is a type 3 acromion with impingement configuration. There is a small joint effusion which extends into the subacromial subdeltoid bursa. Reading Location: [facility] independently reviewed the imaging. Concur with radiologist report. Coding Level of Care Code Off vis,est,level 4 Diagnoses Left shoulder pain M25.512 Left rotator cuff tear M75.102 Impingement of left shoulder M25.812 Assessment and Plan Assessment and Plan (1) Left shoulder pain: Status: Acute Plan: 44-year-old female with a left full-thickness 1.8 cm supraspinatus rotator cuff tear with a type III acromion. The surgical option here would be left shoulder arthroscopy, subacromial decompression, rotator cuff repair. Risks alternatives benefits discussed with that as well as the recovery time 3 to 6 months before going back to full activities in 2 weeks in a sling postoperatively. There does look to be some tendon still attached to the footprint making this more so the type II or trans tendon tear / near the musculotendinous junction type tear which can make the repair more challenging with a higher risk of re tears or delayed or nonhealing, so therefore have offered and plan to do dermal allograft augmentation with arthrex cuffmend patch. Patient understands wished to go ahead with left shoulder arthroscopy, subacromial decompression, rotator cuff repair, allograft tissue augmentation. Pros and cons risks and benefits were discussed with the patient including but not limited to infection, pain, stiffness, bleeding, damage to surrounding structures, neurovascular injury, recurrence or retear, failure or wear of hardware or fixation, instability, fracture, deep vein thrombosis and pulmonary embolism, anesthetic risks, , patient dissatisfaction, need for further surgery and other risks. Patient understood and wished to proceed with surgery, and signed the informed consent documentation. Patient counselled on non-operative and operative means of treating shoulder pain. Conservative options include but not limited to: 1. Rest and Activity Modification: Giving your shoulder time to heal by avoiding movements that cause pain can help. This may involve limiting overhead activities or heavy lifting. 2. Physical Therapy: A physical therapist can guide you through exercises that strengthen the muscles around the shoulder, improve flexibility, and reduce strain on the rotator cuff tendon. 3. Ice and Heat Therapy: Applying ice to the shoulder can help reduce swelling and pain, especially after activity. Heat can be helpful to relax tense muscles and improve blood flow before exercises. 4. Anti-Inflammatory Medications: Lxch-xem-jxylbyc medications like ibuprofen or naproxen can help reduce pain and inflammation in the tendon. 5. Corticosteroid Injections: If the pain is more severe, a steroid injection can reduce inflammation in the shoulder and provide relief for a longer period. 6. Platelet-Rich Plasma (PRP) Injection: This treatment involves using your own blood to promote healing in the tendon. The plasma is rich in growth factors that can encourage tissue repair. 7. TENS (Transcutaneous Electrical Nerve Stimulation): This therapy uses a small electrical current to help manage pain and promote healing by stimulating nerves. (2) Left rotator cuff tear: Status: Acute (3) Impingement of left shoulder: Status: Acute Clinical Quality Measures Falls Risk Screening/Assistive Devices Have you fallen in the past year?: No COUNT INCLUDES THE [facility] Medical History Wears glasses Depression Anxiety Bipolar disorder Arthritis Restless legs Former smoker Impingement of left shoulder Left rotator cuff tear Left shoulder pain Home Medications ?Medication ?Instructions ?Recorded ?Last Taken ?Type lamotrigine 200 mg tablet 100 mg PO DAILY 12/20/19 Unknown History losartan 25 mg tablet 25 mg PO DAILY 12/20/19 12/23/19 08:45 History topiramate 200 mg capsule 500 mg PO QHS MOOD STABILIZER 12/20/19 Unknown History sprinkle,extended release 24 hr valbenazine 80 mg capsule 80 mg PO DAILY GEODONE SE 12/20/19 Unknown History ziprasidone HCl 80 mg capsule 100 mg PO DAILY BIPOLAR 12/20/19 Unknown History trazodone 100 mg tablet 100 - 300 mg PO QHS PRN sleep 05/22/25 Unknown History benztropine 2 mg tablet 2 mg PO 4X/DAY 05/29/25 Unknown History pregabalin 100 mg capsule 100 mg PO TID 05/29/25 Unknown History spironolactone 25 mg tablet 50 mg PO BID 05/29/25 Unknown History Allergy/AdvReac Type Severity Reaction Status Date / Time Penicillins (PCN) Allergy Anaphylaxis Verified 06/11/25 05:55 amoxicillin AdvReac Anaphylaxis Verified 06/11/25 05:55 Surgical History History of wisdom tooth extraction History of tonsillectomy Social History Smoking Status: Former smoker Vital Signs Vital Signs Vital Signs: 06/11/25 05:57 06/11/25 05:57 06/11/25 06:47 Temperature 97.5 F L 97.5 F L Temperature Source Temporal Pulse Rate 47 L 47 L Respiratory Rate 16 16 Respiratory Pattern Normal Blood Pressure 101/69 101/69 Blood Pressure Mean 79 Blood Pressure Source Monitor Blood Pressure Position Semi-Fowlers Blood Pressure Location Right Arm Pulse Ox 100 100 Oxygen Delivery Method Room Air Room Air Weight Weight: 191 lb 12.835 oz Body Mass Index (BMI) 29.1 Results Lab / Micro Data Labs: Laboratory Results - last 24 hr 06/11/25 05:35: Urine Test Negative
[2025-06-11] MEDS: Midazolam 2 MG/2 ML Syringe IV (07:12)
[2025-06-11] MEDS: Cefazolin 1 GM/5 ML Vial 2 GM IV (07:21)
[2025-06-11] MEDS: Lidocaine 1% (5 ml sdv) 5 ML Vial IV (07:30)
[2025-06-11] MEDS: Epinephrine (1 mg/ml) 1 MG/ML VIAL (07:52)
[2025-06-11] MEDS: fentaNYL 100 MCG/2 ML Ampul IV (09:19)
--- NOTE | 2025-06-11 09:22 | DCINST_ITS ---
Discharge Instructions Diet Discharge Diet: No restrictions Activity Ice area for (Minutes): 10 Lifting Restrictions: no lifting over 1 pound, pendulums 4x/day Additional Activity Instructions:: ok to remove sling at rest, hand wrist elbow ROM 4x/juan josé Dressing / Incision Call your doctor if your incision/area has: Continuous Slow Oozing, Sudden Increased Bleeding, Increased Pain/ Swelling, Increased Redness, Foul Smelling Discharge and Swelling at the incision site Call your doctor if you observe: Fever of 101 or Higher, Coldness, Increased Pain and Numbness or Tingling Change Dressing in: leave in place till F/U Cleanse incision/area with: Do not get Incision Wet Additional Dressing/Incision Instructions:: ok to change dressing if leaks or is wet Follow Up Care Please Follow Up With: Mahad Saleh MD When: within 2 weeks Test Results: Test results from this visit will be discussed in further detail at your follow- up appointment, if applicable. Discharge Plan Admission Attending Provider: Mahad Saleh Primary Care Provider: Torres Moore Instructions Patient Instructions: Shoulder Arthroscopy Print Language: [place] Citizen Discharge Orders/Prescriptions Prescriptions: New oxycodone-acetaminophen [Endocet] 5-325 mg tablet 1 tab PO Q4H MDD 6 PRN (Reason: pain) 5 Days Qty: 30 0RF No Action trazodone 100 mg tablet 100 - 300 mg PO QHS PRN (Reason: sleep) ziprasidone HCl 80 MG capsule 100 mg PO DAILY lamotrigine 200 MG tablet 100 mg PO DAILY losartan 25 MG tablet 25 mg PO DAILY topiramate 200 MG capsule,sprinkle,ER 24hr 500 mg PO QHS valbenazine 80 MG capsule 80 mg PO DAILY spironolactone 25 mg tablet 50 mg PO BID Rx Instructions: 50 MG IN AM, 25 MG IN PM benztropine 2 mg tablet 2 mg PO 4X/DAY pregabalin 100 mg capsule 100 mg PO TID Referrals / Follow Up: Mahad Saleh MD [Med Staff - Active Staff] - Torres Moore MD [Primary Care Provider] - Disposition Disposition (needs filled in before D/C Order can be placed): Home, Self Care
--- NOTE | 2025-06-11 09:24 | PCM.OPRPT ---
Problems Associated Problem List Diagnoses (1) Impingement of left shoulder: (2) Left rotator cuff tear: (3) Left shoulder pain: Procedures Musculoskeletal 20xxx-29xxx: Other Procedure See Report Operative Report (Standard) Operative Information Date of Procedure: 06/11/25 Pre-Operative Diagnosis: L shoulder impingement, rotator cuff tear Post-Operative Diagnosis: same Surgery/Procedure Performed: L shoulder arthroscopy, SAD, RC repair, arthrex cuffmend graft resource development manager: Yes Hydroelectric Station Operator Chief: shane Tasks completed by mobile sales assistant: Retracting Additional assistant designer?: No Type of Anesthesia: Block,Regional and General RN Documented Start/Stop Times: Operation Date: 06/11/25 07:30 Case Time Into Pre-Op 06/11/25 05:44 Anesthesia Start 06/11/25 07:22 Into Room 06/11/25 07:22 Out of Pre-Op 06/11/25 07:22 Procedure Start 06/11/25 07:47 Procedure Start Time: 07:47 Procedure Stop Time: 09:18 Select all DRAINS/GRAFTS/IMPLANTS that apply: Graft Graft details: arthrex cuff mend allograft tissue. Estimated Blood Loss: 50 Specimen collected: No Description of surgery: Patient brought to the operating room theater. Placed supine on the table. General anesthesia induced. 2 g of IV Ancef administered prior to the start of the case. Patient transferred left side up lateral decubitus beanbag positioner. Axillary roll placed. SCDs on the legs. All bony prominences padded. Upper extremity prepped and draped in the usual sterile fashion with chlorhexidine-based prep solution allowing over 3 minutes drying time prior to draping. 10 pounds of inline traction with the arm in 40 degrees of abduction was used. Preoperative timeout performed to confirm the site patient and the surgery. Began by inserting the arthroscope into the intra-articular portion of the shoulder. Use spinal needle inside out localization to perform an anterior portal through the rotator interval. Did a full diagnostic arthroscopy. Cartilage on the humeral head and the glenoid was normal. There was some longitudinal fraying of the biceps tendon but the origin at the superior glenoid was normal. Slight fraying of the labrum gently debrided. The subscapularis was normal. The rotator supraspinatus had a full-thickness crescent-shaped tear with minor retraction to the level of the mid humeral head. This was mobile. I then placed the arthroscope into the subacromial space and used 2 accessory lateral portals. Again the cuff was mobile. I gently debrided the edges. I prepared the tuberosity. I did a subacromial decompression for the type III acromion to flat margins for about 4 mm. I used the Arthrex power pick for multiple trephination's. I placed 2 Arthrex 2.6 mm fiber tack RC anchors just off the articular margin. Set the anchors remove the stay suture. I passed the anchors from deep to superficial through the supraspinatus tendon and cut at the swedge. I then crisscrossed the sutures and inserted these into two 4.75 mm bio composite knotless swivel anchors just off a margin of the footprint. This achieved good compression and repair of the rotator cuff tendon. I also used the accessory stay suture to pass a simple suture at the anterior and posterior margins of the tear From both anchors. I then prepared the Arthrex cuff mend graft marking the superior aspect with purple marker. I attached the fiber link sutures to the lateral side as well as simple sutures in order to attach the graft to the passing device. Passport cannulas inserted laterally. The graft was then inserted into the subacromial space on top of the repair. I fixed this medially with the included knotless all inside medial sutures and a horizontal mattress fashion 2 of those repair sutures that were stable and solid. The supply chain associate was removed. I then used the fiber link sutures at the lateral corners to then insert these into push lock anchors in the standard fashion just lateral to the knotless swivel lock anchors. This achieved good compression and spread of the graft at the greater tuberosity and at the cuff repair site. Arthroscopy pictures taken and saved onto the system wounds thoroughly irrigated. Meticulous hemostasis achieved. Portal sites cleaned with wet dry dressing followed by closure of the portals with 3-0 Monocryl sutures. Steri-Strips Adaptic 4 x 4 gauze ABD dressing with cloth tape and an abduction pillow sling was then placed. Patient woken up from general anesthetic transferred off the operating room table and taken to postanesthetic care unit in stable condition. All sponge needle instrument counts were correct. Plan to the patient discharged home according to day surgery criteria. CPT 69525, 48107, 95123, mod 22. Surgical Findings: as above Complications Complications: No Admit VTE Documentation VTE Present on Admission: No VTE Mechan Device Prophylaxis: SCD's VTE Pharm Prophylaxis ordered?: No Reason prophylaxis not ordered: Treatment Not Indicated
--- NOTE | 2025-06-11 10:33 | PCM.POST.ANE ---
Anesthesia: Postop Eval I Current Vital Signs Temperature: 97.3 F Pulse Rate: 47 Blood Pressure: 100/77 Respiratory Rate: 16 Pulse Ox: 96 Oxygen Delivery Method: Room Air Assessment Airway patent: Yes Spontaneous unlabored respirations: Yes Mental status: Awake and Calm nausea: No Vomiting: No Anesthesia Complication: No Fluid Hydration Crystalloid volume administer (ml): 1,200 Total IV fluid infused: 1,200 Progress Note Anesthesia document: Postop Eval 1 completed: Yes
--- NOTE | 2025-06-11 15:33 | POSTOPAN2_ITS ---
Anesthesia Postop Eval I Sum Postop Eval Completion status Anesthesia document: Postop Eval 1 completed: Yes Anesthesia Postop Eval I Summary Anesthesia Postop Eval I Summary: Anesthesia Postop Eval I: Assessment Summary Airway patent Yes 06/11/25 10:33 [email or web address] Spontaneous unlabored Yes 06/11/25 10:33 [email or web address] respirations Mental status Awake,Calm 06/11/25 10:33 [email or web address] nausea No 06/11/25 10:33 [email or web address] Vomiting No 06/11/25 10:33 [email or web address] Anesthesia Postop Eval I: Fluid Summary Crystalloid volume administer 1,200 06/11/25 10:33 [email or web address] (ml) Colloids volume administered ( ml) Blood Product volume administered (ml) Total IV fluid infused 1,200 06/11/25 10:33 [email or web address] Anesthesia Postop Eval I: Summary Notes Anesthesia Complication No 06/11/25 10:33 [email or web address] Anesthesia Complication Comment: Post-operative progress note Anesthesia: Postop Eval II Evaluation Mental status: Awake Pain Level: 3 nausea: No Vomiting: No
--- NOTE | 2025-06-11 15:33 | PCM.POSTANE2 ---
Anesthesia Postop Eval I Sum Postop Eval Completion status Anesthesia document: Postop Eval 1 completed: Yes Anesthesia Postop Eval I Summary Anesthesia Postop Eval I Summary: Anesthesia Postop Eval I: Assessment Summary Airway patent Yes 06/11/25 10:33 PHARMACY [email or web address] [email or web address] Spontaneous unlabored Yes 06/11/25 10:33 PHARMACY CLINICAL [email or web address] respirations Mental status Awake,Calm 06/11/25 10:33 PHARMACY CLINICAL [email or web address] nausea No 06/11/25 10:33 PHARMACY CLINICAL [email or web address] Vomiting No 06/11/25 10:33 PHARMACY CLINICAL [email or web address] Anesthesia Postop Eval I: Fluid Summary Crystalloid volume administer 1,200 06/11/25 10:33 PHARMACY CLINICAL [email or web address] (ml) Colloids volume administered ( ml) Blood Product volume administered (ml) Total IV fluid infused 1,200 06/11/25 10:33 PHARMACY CLINICAL [email or web address] Anesthesia Postop Eval I: Summary Notes Anesthesia Complication No 06/11/25 10:33 PHARMACY CLINICAL [email or web address] Anesthesia Complication Comment: Post-operative progress note Anesthesia: Postop Eval II Evaluation Mental status: Awake Pain Level: 3 nausea: No Vomiting: No
== END 2025-06-11 11:01 | disposition home or self-care (01) ==
LOC: SDC 05:21 → AC 05:21
PROVIDERS: Anesthesiology; PCP Family Medicine; Referring Provider Orthopaedic Surgery Sports Medicine; Visit Provider Orthopaedic Surgery Sports Medicine
PROC: (CPT 29805; principal; 2025-06-11 07:10)
DX: M75.102 Unspecified rotator cuff tear or rupture of left shoulder, not specified as traumatic (principal); F31.9 Bipolar disorder, unspecified; M75.42 Impingement syndrome of left shoulder; I10 Essential (primary) hypertension; F41.9 Anxiety disorder, unspecified; G25.81 Restless legs syndrome; Z79.84 Long term (current) use of oral hypoglycemic drugs; Z79.899 Other long term (current) drug therapy; Z87.891 Personal history of nicotine dependence
CPT/HCPCS: 29827; 29826; 01630; 64415; 81025; C1713; J2405

== ENCOUNTER 2025-10-01 17:19 | Inpatient (IN) | payer MEDICARE, MEDICAID, SELFPAY ==
[2025-10-01 17:19] VITALS: BP 111/63; PULSE 51; RESP 20; TEMP 36; O2SAT 98; BMI 28.8
--- NOTE | 2025-10-01 17:48 | EDS_ITS ---
HPI HPI - GI History of Present Illness Chief Complaint: Abd Pain Informant: patient Abdominal Pain/Flank Pain Onset: Today Context: Gradual Onset Timing: Continuous Quality: Aching Location: Epigastric, RUQ and LUQ Worsened by: Food Relieved by: Nothing Nausea/Vomiting/Emesis GI Symptom: Positive for Nausea; Negative for Vomiting Diarrhea/Melena/Hematochezia GI Symptom: Negative for Diarrhea, Melena or Hematochezia Associated Symptoms Associated Symptoms: Negative for Dysuria, Frequency or Hematuria LMP: Today Narrative Narrative: Patient presents with abdominal pain that began today. Patient states it came on gradually. Patient states it is constant. Patient describes her pain as aching, like she was punched in the stomach multiple times. Patient states it is mainly over the upper abdomen. Patient states it is worse with eating. Patient states she did eat some popcorn approximately 1 hour prior to arrival. Patient states her pain became worse after that. Patient admits to some nausea but denies any vomiting. Patient denies any diarrhea, melena, or hematochezia. Patient denies any dysuria, frequency, or hematuria. Patient states she started her menstrual period today. Patient saw her primary care physician today who ordered a liver profile which showed elevated alkaline phosphatase of 356, AST of 89, and ALT of 244. These were increased compared to previous results on 09/16/2025. Patient also had an outpatient right upper quadrant ultrasound which showed cholelithiasis with common bile duct dilatation. There are calculi noted near the neck of the gallbladder and proximal cystic duct. There is no definite common bile duct calculus noted. The common bile duct is 1.3 cm at the hilum and 1.5 cm near the head of the pancreas. There is no gallbladder wall thickening. There is no pericholecystic fluid. [facility] Medical History (Updated 10/01/25 @ 19:[address] Kvng Childs, DO) Hypertension Wears glasses Depression Anxiety Bipolar disorder Arthritis Restless legs Former smoker Impingement of left shoulder Left rotator cuff tear Left shoulder pain Home Medications ?Medication ?Instructions ?Recorded ?Last Taken ?Type lamotrigine 200 mg tablet 100 mg PO DAILY 12/20/19 Unk nown History losartan 25 mg tablet 25 mg PO DAILY 12/20/1912/01 08:45 History valbenazine 80 mg capsule 80 mg PO DAILY [facility] Unknown History trazodone 100 mg tablet 100 - 300 mg PO QHS PRN slee p 05/22/25 Unknown History benztropine 2 mg tablet 2 mg PO 4X/DAY 05/29/25 Unkn own History spironolactone 25 mg tablet 50 mg PO BID 05/29/25 Unkn own History meloxicam 15 mg tablet 15 mg PO QDAY 06/24/25 Unkno wn History pregabalin 150 mg capsule 150 mg PO TID 10/01/25 Unkno wn History tizanidine 4 mg tablet 4 mg PO TID 10/01/25 Unknown History topiramate 200 mg tablet 200 mg PO BID 10/01/25 Unkno wn History ziprasidone HCl 20 mg capsule 20 mg PO DAILY 10/01/25 Unknown History ziprasidone HCl 60 mg capsule 60 mg PO BID 10/01/25 Un known History Allergy/AdvReac Type Severity Reaction Status Date / Time Penicillins (PCN) Allergy Anaphylaxis Verified 10/01/25 17:20 amoxicillin AdvReac Anaphylaxis Verified 10/01/25 17:20 Surgical History History of wisdom tooth extraction History of tonsillectomy Social History Smoking Status: Former smoker ROS ROS ED Constitutional Constitutional ED: Denies chills or fever(s) Eyes Eyes: Denies blurry vision or change in vision ENT ENT ED: Reports rhinorrhea; Denies sore throat Cardiovascular Cardiovascular: Denies chest pain or palpitations Respiratory/Chest Respiratory/Chest: Denies cough or dyspnea Gastrointestinal Gastrointestinal: Reports abdominal pain and nausea; Denies diarrhea, melena or vomiting Genitourinary Genitourinary ED: Denies dysuria or hematuria Musculoskeletal Musculoskeletal: Reports back pain; Denies neck pain Integumentary Denies abscess or rash Neurologic Neurologic: Denies headache(s) or weakness Allergic/Immunologic Allergic/Immunologic ED: Denies mouth swelling or urticaria EXAM Physical Exam Const Vital Signs: 10/01/25 17:19 10/01/25 19:19 10/01/25 19:26 Temperature 96.8 F L 97.6 F L 97.6 F L Temperature Source Temporal Oral Pulse Rate 51 L 61 61 Respiratory Rate 20 H 17 17 Blood Pressure 111/63 112/74 112/74 Blood Pressure Mean 79 86 86 Pulse Ox 98 100 100 Oxygen Delivery Method Room Air Room Air Positive well nourished and well developed General Appearance ED: well developed and NAD HEENT Reports moist mucous membranes Neck supple and no JVD Resp normal respiratory effort and clear to auscultation bilaterally Cardio regular rate and regular rhythm GI non-distended Palpation: soft and tender epigastric, LUQ (Mild), RUQ and Yao's sign; Negative for guarding or rebound tenderness present Extremity full ROM Neuro CN's II-XII intact bilaterally, moves all extremities and no sensory deficits noted Sensorium / Orientation: alert Motor Exam: strength 5/5 throughout Psych mental status grossly normal MDM MDM MDM Narrative Medical decision making narrative: Differential diagnosis includes cholecystitis, cholelithiasis, dehydration, electrolyte abnormality, pancreatitis, and urinary tract infection. CBC will be obtained to assess for leukocytosis and anemia. Basic metabolic profile will be obtained to assess for electrolyte abnormality renal function. Lipase will be obtained to assess for pancreatitis. Serum hCG will be obtained to assess for . Urinalysis will be obtained to assess for urinary tract infection and hematuria. Lab Data Attestation: I reviewed the patient's lab results. Lab results narrative: CBC was reviewed and was within normal limits. Basic metabolic profile was reviewed and was essentially within normal limits. Urinalysis was reviewed. There is no evidence of urinary tract infection or hematuria. Lipase was reviewed and was elevated at 204. Labs: Laboratory Results - last 24 hr 10/01/25 18:00 WBC 6.2 RBC 4.39 Hgb 13.7 Hct 41.3 MCV 94.1 MCH 31.2 MCHC 33.2 RDW Std Deviation 44.2 H RDW Coeff of Kushal 12.7 Plt Count 135 L MPV 12.0 Immature Gran % (Auto) 0.300 Neut % (Auto) 74.5 H Lymph % (Auto) 18.6 L [place] % (Auto) 5.8 Eos % (Auto) 0.5 Baso % (Auto) 0.3 Absolute Neuts (auto) 4.6 Absolute Lymphs (auto) 1.15 Nucleated RBC % 0 Sodium 139 Potassium 3.7 Chloride 106 Carbon Dioxide 17.5 L Anion Gap 15 BUN 14 Creatinine 0.68 L Estim Creat Clear Calc 120.09 Est GFR (MDRD) Non-Af 110 BUN/Creatinine Ratio 20.3 H Glucose 117 H Calcium 10.0 Lipase 204 H Serum , Qual NEGATIVE Urine Color Yellow Urine Clarity Clear Urine pH 6.5 Ur Specific Admire 1.015 Urine Protein 15 H Urine Glucose (UA) Normal Urine Ketones Negative Urine Occult Blood Negative Urine Nitrite Negative Urine Bilirubin Negative Urine Urobilinogen Normal Ur Leukocyte Esterase Negative Urine RBC 0 SEEN Urine WBC 0 SEEN Ur Squamous Epith Cells 0 SEEN Amorphous Sediment 1+ Urine Bacteria 1+ Urine Mucus 0 SEEN Management Discussion w/another healthcare provider: Hospitalist and Quantitative Developer Treatment and Re-Evaluation :: Patient was given IV fluids, morphine, and Zofran. Patient was given a dose of Dilaudid. Case was discussed with Dr. Knowles from general surgery. He recommended admitting the patient to the hospitalist service. Case was discussed with the hospitalist. Discharge Plan Dx/Rx/DC Orders Clinical Impression: Acute gallstone pancreatitis, Cholelithiasis, Hypertension Disposition Disposition: Acute Care [facility]
[2025-10-01] MEDS: 0.9% Normal Saline (1000mL) 1,000 ML 1000 ML IV (17:59)
[2025-10-01 18:10] LABS: Mucous, Urine 0 SEEN /hpf (<or=2+); Red Blood Cells-Urine 0 SEEN /hpf (0-5); Squamous Epithelial Cells - UA 0 SEEN /hpf (5-10)
--- OUTSIDE RECORDS SUMMARY | 2025-10-01 18:10 | XMS RPT_ITS | CCD ---
Author Organization [facility] Care Team Providers Care Food Production Supervisor Name Role Phone TORRES YAO MD Primary Care Physician Torres Yao MD Primary [...] TORRES YAO MD Primary Care Unavailable PILI DIGITAL PROJECT COORDINATOR-ADIEL CAMEJO Attending TORRES Crocker MD Primary Care Unavailable DR ANABEL TOLEDO MD Attending UnavailTORRES Saavedra MD Primary Care Unavailable Mallory DIGITAL PROJECT COORDINATOR.RUFFLING MACHINE OPERATORBeryl Unavailable Marco Aan DIGITAL PROJECT COORDINATOR.RUFFLING MACHINE OPERATOR, Ellen A Unavailable Eldon DIGITAL PROJECT COORDINATOR.RUFFLING MACHINE OPERATOR, Ellen A Unavailable Dr. Torres Yao MD Primary Care Provider Dr. Torres Yao MD Referring Provider Mahad Saleh MD Attending Provider [phone] Manuel Leary MD Attending Provider ELLEN RENE Referring Unavailable TORRES YAO Primary Care Unavailable TORRES YAO Primary Care Unavailable ELLEN RENE Referring Unavailable TORRES YAO Primary Care Unavailable ELLEN RENE Referring Unavailable JOANNA REY Attending Unavailable NAJMA, TORRES J Primary Care Unavailable FREEMAN SARABIA Referring Unavailable JOANNA REY Attending Unavailable NAJMA, TORRES J Primary Care Unavailable SUPPAN, ELLEN A Referring Unavailable NAJMA, TORRES J Primary Care Unavailable SUPPAN, ELLEN A Referring Unavailable SALVADOR HART Attending Unavailable NAJMA, TORRES J Primary Care Unavailable SUPPAN, ELLEN A Referring Unavailable NAJMA, TORRES J Primary Care Unavailable LEANDRA, FREEMAN Referring Unavailable NAJMA, TORRES J Primary Care Unavailable FREEMAN SARABIA Referring Unavailable NAJMA, TORRES J Primary Care Unavailable SUPPAN, ELLEN A Referring Unavailable NAJMA, TORRES J Primary Care Unavailable SELF Referring Unavailable SUPPAN, ELLEN A Attending Unavailable NAJMA, TORRES J Primary Care Unavailable NAJMA, TORRES J Attending Unavailable NAJMA, TORRES J Primary Care Unavailable SUPPAN, ELLEN A Attending Unavailable NAJMA, TORRES J Primary Care Unavailable SUPPAN, ELLEN A Referring Unavailable HAILEYSALVADOR ADAMS Attending Unavailable NAJMA, TORRES Child Primary Care Unavailable SUPPAN, ELLEN A Referring Unavailable SALVADOR HART Attending Unavailable NAJMA, TORRES J Primary Care Unavailable SUPPAN, ELLEN A Referring Unavailable NAJMA, TORRES J Primary Care Unavailable NAJMA, TORRES J Referring Unavailable NAJMA, TORRES Child Primary Care Unavailable SUPPAN, ELLEN A Attending Unavailable NAJMA, TORRES Child Primary Care Unavailable NAJMA, TORRES Mateusz Attending Unavailable NAJMA, TORRES J Primary Care Unavailable SUPPAN, ELLEN A Referring Unavailable JOANNA REY Attending Unavailable NAJMA, TORRES J Primary Care Unavailable FREEMAN SARABIA Referring Unavailable JOVAN PAIGE Attending Unavailable NAJMA, TORRES J Primary Care Unavailable SUPPAN, ELLEN A Referring Unavailable NAJMA, TORRES J Primary Care Unavailable SUPPAN, ELLEN A Referring Unavailable SALVADOR HART Attending Unavailable NAJMA, TORRES J Primary Care Unavailable SUPPAN, ELLEN A Referring Unavailable NAJMA, TORRES Child Primary Care Unavailable SUPPAN, ELLEN A Referring Unavailable SALVADOR HART Attending Unavailable NAJMA, TORRES J Primary Care Unavailable SUPPSUKHDEV, ELLEN A Referring Unavailable SALVADOR HART Attending Unavailable Mahad Saleh MD Referring Provider Mahad Saleh MD Other Provider [phone] Torres Yao MD Primary Care Physician [phone] Mahad Saleh MD Attending Physician [phone] Gibran URIBE, Dr. Jackson Attending Physician Therese URIBE, Mahad Nurse Practitioner FREEMAN SARABIA Attending Unavailable NAJMA, TORRES J Primary Care Unavailable ISAAC CANNON Admitting Unavailable ISAAC CANNON Attending Unavailable NAJMA, TORRES J Primary Care Unavailable FREEMAN SARABIA Attending Unavailable NAJMA, TORRES J Primary Care Unavailable FREEMAN SARABIA Attending Unavailable NAJMA, TORRES J Primary Care Unavailable FREEMAN SARABIA Attending Unavailable NAJMA, TORRES J Primary Care Unavailable ISAAC CANNON Attending Unavailable NAJMA, TORRES J Primary Care Unavailable Najma, Torres Referring Unavailable Najma, Torres Primary Care Unavailable Mollison, Mahad Attending Unavailable Mollison, Mahad Attending Unavailable Najma, Torres Referring Unavailable Napier Field, Torres Primary Care Unavailable Najma, Torres Primary Care Unavailable Najma, Torres Referring Unavailable Mollison, Mahad Attending Unavailable Najma, Torres Primary Care Unavailable Manuel Leary Attending Unavailable [place], Torres Primary Care Unavailable Najma, Torres Referring Unavailable Molledison, Mahad Attending Unavailable [place], Torres Referring Unavailable [place]ier [place], Torres Primary Care Unavailable Therese, Mahad Attending Unavailable [place], Torres Primary Care Unavailable Molledison, Mahad Attending Unavailable Therese, Mahad Referring Unavailable [place]ier [place], Torres Primary Care Unavailable Molledisno, Mahad Attending Unavailable Therese, Mahad Referring Unavailable Molledison, Mahad Attending Unavailable Najma, Torres Primary Care Unavailable Molledison, Mahad Referring Unavailable Najma, Torres Referring Unavailable Napier Field, Torres Primary Care Unavailable Molledison, Mahad Attending Unavailable Therese, Mahad Attending Unavailable [place]ier Field, Torres Primary Care Unavailable Molledison, Mahad Referring Unavailable Therese, Mahad Consulting Unavailable Allergies Allergy Classification Reported Allergen(s) Allergy Type Date of Onset Reaction(s) Facility Lincosamides (antibiotic) (1 source) Clindamycin Drug Allergy 7 Diarrhea [facility] Work Phone: Macrolides (antibiotic) (1 source) Azithromycin Drug Allergy 9 Itching [facility] Penicillins (antibiotic) (1 source) Penicillins Drug Allergy 5 Rash [facility] Work Phone: Quinolones (antibiotic) (1 source) levoFLOXacin Drug Allergy 9 Swelling [facility] Sulfonamides (antibiotic) (1 source) Sulfonamides (Antibiotic) Drug Allergy 2 Unknown [facility] (20 sources) Clindamycin; Translations: [clindamycin] Drug Allergy 7 Diarrhea [facility] (4 sources) Penicillin; Translations: [penicillin] Drug Allergy [facility] (4 sources) Sulfonamides (Antibiotic); Translations: [sulfa drugs] Drug allergy [facility] (20 sources) Azithromycin; Translations: [AZITHROMYCIN] Drug Allergy 9 Itching [facility] (20 sources) levoFLOXacin; Translations: [LEVOFLOXACIN] Drug Allergy 9 Swelling [facility] Work Phone: (14 sources) Penicillins; Translations: [PENICILLINS] Propensity to adverse reactions 5 Rash [facility] Work Phone: (20 sources) Sulfonamides (Antibiotic); Translations: [SULFA (SULFONAMIDE ANTIBIOTICS)] Drug Allergy 2 Unknown [facility] (20 sources) Penicillins Propensity to adverse reactions 5 [facility] Work Phone: (14 sources) Penicillins Propensity to adverse reactions 5 [facility] Work Phone: (8 sources) Penicillins Allergy to substance 5 Anaphylaxis [facility] (4 sources) Amoxicillin Drug Allergy 5 Anaphylaxis [facility] Comment on above: & hives (1 source) Amoxicillin Drug Allergy 5 [facility] Repository (1 source) Penicillins Drug allergy (disorder) 5 [facility] Repository Medications Current Medications Medication Drug Class(es) Dates Sig (Normalized) Sig (Original) acetaminophen 500 mg oral tablet (2 sources) Start: 06-24-2025 take 1 tablet by mouth every six hours as needed Albuterol (2 sources) beta2-Adrenergic Agonist Start: 05-04-2010 take 2.5 mg by inhalation every two hours as needed for wheezing Ventolin/Proventil 2.5 mg, Inhalation, q2hr, PRN, as needed for wheezing Start Date: 05/04/10 Status: Ordered benztropine mesylate 2 mg oral tablet (20 sources) Anticholinergic, Antihistamine Start: 02-14-2017 take 1 tablet by mouth four times daily Comment on above: Take 2 mg by mouth f our times daily. Blood-Glucose Meter monitoring kit (1 source) Start: 01-31-2022 End: 02-01-2022 Blood-Glucose Meter monitoring kit Indications: Type 2 diabetes mellitus without complication, with long-term current use of insulin (HCC) Glucose Meter of Choice - Kit - Dx: Type 2 DM - Uncontrolled E11.65 1 Each 0 01/31/2022 02/01/2022 Active Comment on above: Glucose Meter of Cho ice - Kit - Dx: Type 2 DM - Uncontrolled E11.65 diclofenac sodium-menthol (DITHOL) 1.5-10 % combo pack [...] Status: Ordered furosemide 40 mg oral tablet (12 sources) Loop Diuretic Start: 05-31-2021 Lasix 40 mg oral tablet Dose : 60 mg = 1.5 tab(s), Oral, qDay, # 135 tab(s), 3 Refill(s), Pharmacy: [facility] [facility], 172.7, cm, 05/31/21 14:30:00 EDT, Height, kg, 05/31/21 14:30:00 EDT, Dosing Weight Start Date: 05/31/21 Status: Ordered Start: 12-20-2019 End: 05-29-2025 Furosemide 40 MG tablet Disc ontinued 60 mg PO DAILY December 20, 2019 1:00am May 29, 2025 3:17pm Comment on above: Take 60 mg by [...] and Start Date: 06/01/20 Status: Ordered Start: 12-20-2019 Start: 02-14-2017 LaMICtal 200 m g oral tablet Dose : 400 mg = 2 tab(s), Oral, qDay, # 180 tab(s) Start Date: 02/14/17 Status: Ordered Start: 02-14-2017 LaMICtal 100 m g oral tablet Dose : 100 mg = 1 tab(s), Oral, qDay, # 180 tab(s) Start Date: 02/14/17 Status: Ordered Start: 11-14-2011 take 2 tablets by [facility] once daily lamoTRIgine (LAMICTAL) 200 mg tablet [...] BID, # 180 tab(s), 3 Refill(s), Pharmacy: [facility] #[id number], 172.7, cm, 06/26/23 13:06:00 EDT, Height, kg, 06/26/23 13:06:00 EDT, Dosing Weight Start Date: 06/26/23 Status: Ordered Start: 12-20-2019 take 1 tablet by mouth once da hyacinth Comment on above: Take 25 mg by mouth twice daily. meclizine hydrochloride 12.5 mg oral tablet (2 sources) Antiemetic Start: 1 meclizine 12.5 mg oral tablet Dose : 12.5 mg = 1 tab(s), Oral, TID, PRN as needed for motion sickness, # 20 tab(s), 0 Refill(s) Start Date: 07/06/21 Status: Ordered meloxicam 15 mg oral tablet (20 sources) Nonsteroidal Anti-inflammatory Drug Start: 2 End: 5 take 1 tablet by mouth once daily Start: 11-26-2020 meloxicam (MOB IC) 15 mg tablet Take 7.5-15 mg by mouth once daily as needed. 0 11/26/2020 Active Comment on above: Take 7.5-15 mg by mo [facility] once daily as needed. Take 0.5-1 tablets b y mouth once daily as needed. Take 0.5-1 tablets b y mouth once daily as needed for pain. metaxalone 800 mg oral tablet (20 sources) Start: 05-31-2021 End: 11-30-2022 metaxalone 800 mg oral tablet Dose : 800 mg = 1 tab(s), Oral, TID, 0 Refill(s) Start Date: 05/31/21 Status: Ordered Comment on above: Take 800 mg by mouth three times daily. Take 1 tablet by tanvi three times daily. lu-nm-degn-FA-Ca carb-vit K (WOMEN'S MULTIVITAMIN) 18 mg-400 mcg- 500 mg-50 mcg tab (20 sources) Start: 02-15-2018 qm-sq-asqc-FA-Ca carb-vit K (WOMEN'S MULTIVITAMIN) 18 mg-400 mcg- 500 mg-50 mcg tab Women's Multivitamin 18 mg-400 mcg- 500 mg-50 mcg tablet 02/15/2018 Active Start: 02-15-2018 gj-ii-yoml-FA- Ca carb-vit K (WOMEN'S MULTIVITAMIN) 18 mg-400 mcg- 500 mg-50 mcg tab Women's Multivitamin 18 mg-400 mcg- 500 mg-50 mcg tablet 0 02/15/2018 Active Comment on above: Women's Multivitamin 18 mg-400 mcg- 500 mg-50 mcg tablet Potassium Chloride (10 sources) Start: 05-31-2021 potassium chloride 8 mEq (600 mg) oral capsule, extended release Dose : 16 mEq = 2 cap(s), Oral, BID, # 120 cap(s), 3 Refill(s), Pharmacy: [facility], 172.7, cm, 05/31/21 14:30:00 EDT, Height, [...] on above: Take 2 capsules by m out once daily. K-Tab 8 mEq tablet e xtended release pregabalin 100 mg oral capsule (20 sources) Start: 05-29-2025 take 1 capsule by mouth three times daily Start: 08-28-2024 End: 09-12-2025 take 1 capsule [...] Comment on above: Take 1 capsule by [facility] as directed for 28 days. One QHS x 1 week, BID x 1 week, TID x 1 week, then one in the AM, one in the afternoon, and two in the PM x 1 week. Take 1 capsule by [facility] twice daily for 120 days. Take 50 mg by mouth twice daily. Take 1 capsule by [facility] three times daily for 120 days. Take 75 mg by mouth twice daily. Take 1 capsule by [facility] three times a day for 120 days. spironolactone 25 mg oral tablet (20 sources) Aldosterone Antagonist Start: 05-29-2025 take 2 tablets by mouth twice daily in the morning, then take 1 tablet by mouth in the evening Start: 06-26-2023 take 2 tablets by [facility] in the morning, then take 1 tablet by mouth in the morning spironolactone 25 mg oral tablet See Instructions, Take 2 tabs in am and 1 tab in am, # 270 tab(s), 3 Refill(s), Pharmacy: [facility] #[id number], 172.7, cm, 06/26/23 13:06:00 EDT, Height, kg, 06/26/23 13:06:00 EDT, Dosing Weight Start Date: 06/26/23 Status: Ordered Start: 09-16-2021 spironolactone 25 mg oral tablet Dose : 25 mg = 1 tab(s), Oral, BID, # 60 tab(s), 5 Refill(s), Pharmacy: [facility] [facility], 172.7, cm, 09/16/21 11:26:00 EST, Height, kg, 09/16/21 11:26:00 EST, Dosing Weight Start Date: 09/16/21 Status: Ordered take 1 tablet by [facility] three times daily spironolactone (ALDACTONE) 25 [...] Start Date: 06/01/20 Status: Ordered Start: 12-20-2019 take 2 tablets by mo ut once daily topiramate (TOPAMAX) 200 mg tablet Take 400 mg by mouth once daily. Active Comment on above: Take 100 mg by mouth once daily. Take 400 mg by mouth once daily. traZODone hydrochloride 100 mg oral tablet (20 sources) Serotonin Reuptake Inhibitor Start: 05-22-2025 take 100-300 mg by mouth at bedtime as needed for sleep Start: 05-16-2025 traZODone (SHAD YREL) 100 mg [...] Comment on above: Take 1 tablet by [facility] daily at bedtime. valbenazine 80 mg oral capsule (20 sources) Start: 12-20-19 20 take 1 capsule by mouth once daily Comment on above: Take 80 mg by mouth once daily. ziprasidone 60 mg oral capsule (20 sources) Atypical Antipsychotic Start: 12-17-19 take 2 capsules by mouth once daily ziprasidone (GEODON) 60 mg capsule Take 120 mg by mouth once daily. 12/17/2020 Active Start: 12-17-2020 take 1 capsule by mo [facility] once daily ziprasidone (GEODON) 60 mg capsule Take 60 mg by mouth once daily. 0 12/17/2020 Active Start: 06-01-2020 take 1 capsule by mo [facility] three times daily ziprasidone (GEODON) 20 mg capsule Take 20 mg by mouth three times daily. 06/01/2020 Active Start: 06-01-2020 take 1 capsule by mo [facility] twice daily at mealtime ziprasidone (GEODON) 20 mg capsule Take 20 mg by mouth twice daily with meals. 0 06/01/2020 Active Start: 12-20-2019 Start: 02-14-2017 ziprasidone 80 mg oral capsule Dose : 80 mg = 1 cap(s), Oral, BID, # 60 cap(s) Start Date: 02/14/17 Status: Ordered Comment on above: Take 20 mg by mouth twice daily with meals. Take 60 mg by mouth once daily. Take 20 mg by mouth three times daily. Completed/Discontinued Medications Medication Drug Class(es) Dates Sig (Normalized) Sig (Original) acetaminophen 325 mg / oxyCODONE hydrochloride 5 mg oral tablet (6 sources) Opioid Agonist Start: 06-24-2025 End: 06-29-2025 Oxycodone-Acetamino phen (Percocet) 5-325 mg tablet Discontinued 1 {tbl} PO Q8H as needed for pain 14 5 0 June 24, 2025 June 28, 2025 12:00am June 29, 2025 12:09am Impingement of left shoulder Tear of left rotator cuff Left shoulder pain Other specified joint disorders, left shoulder Pain in left shoulder Start: 06-11-2025 take 1 tablet by mouth every f our hours as needed for pain asenapine 5 mg sublingual tablet (5 sources) [...] Start Date: 06/01/20 Status: Ordered Start: 12-20-2019 End: 05-29-2025 Buprenorphine Hcl 150 MCG fi lm Discontinued 150 ug BC TWICE A DAY December 20, 2019 1:00am May 29, 2025 3:16pm PAIN Start: 02-14-2017 Butrans 20 mcg /hr [...] Do not start before February 15, 2024. carvedilol 25 mg oral tablet (8 sources) alpha-Adrenergic Zion, beta-Adrenergic Zion Start: 12-20-19 End: 05-29-20 take 2 tablets by mouth twice daily Carvedilol 25 MG tablet Discontinued 50 mg PO TWICE A DAY December 20, 2019 1:00am May 29, 2025 3:16pm cyclobenzaprine hydrochloride 10 mg oral tablet (20 sources) Muscle Relaxant Start: 11-30-19 End: 06-13-20 24 take 1 tablet by mouth three times daily as needed for muscle spasms cyclobenzaprine (FLEXERIL) 10 mg tablet Indications: Fibromyalgia Take 1 tablet by mouth three times a day as needed for muscle spasm. 90 tablet 3 08/25/2023 02/08/2024 Discontinued Start: 12-20-2019 End: 05-29-2025 take 1 tablet by mouth three times daily as needed Cyclobenzaprine 5 MG tablet Discontinued 5 mg PO THREE TIMES A DAY as needed for MUSCLE RELAXANT December 20, 2019 1:00am May 29, 2025 3:16pm Comment on above: Take 1 tablet by [facility] th three times daily as needed for muscle [...] Comment on above: Take 1 tablet by [facility] once daily. diclofenac sodium 0.01 mg/mg topical gel (8 sources) Nonsteroidal Anti-inflammatory Drug Start: 0 End: 5 Diclofenac Sodium 100 GM gel Discontinued 100 g TP NEEDED as needed for Pain Or Fever December 20, 2019 1:00am May 29, 2025 3:17pm gabapentin 600 mg oral tablet (20 sources) Anti-epileptic Agent Start: 0 End: 3 take 1 tablet by mouth four times daily gabapentin (NEURONTIN) 600 mg tablet Indications: Primary osteoarthritis of both knees Take 1 tablet by mouth four times daily for 120 days. 120 tablet 3 09/01/2022 12/27/2022 Discontinued Start: 12-20-2019 End: 05-29-2025 take 1 tablet by mouth every four hours Gabapentin 600 MG tablet extended release 24 hr Discontinued 600 mg PO Q4H December 20, 2019 1:00am May 29, 2025 3:17pm Start: 12-20-2019 End: 05-29-2025 take 1 tablet by mouth every four hours Gabapentin 600 MG tablet extended release 24 hr Discontinued 600 mg PO Q4H December 20, 2019 1:00am May 29, 2025 3:17pm Comment on above: Take 600 mg by mouth four times daily. Take 1 tablet by [facility] four times daily for 30 days. Take 1 tablet by [facility] four times daily for 120 days. take 1 tablet by [facility] four times a day 24 hr metFORMIN hydrochloride 500 mg extended release oral tablet (8 sources) Biguanide Start: 2019 End: 2024 take 1 tablet by mouth once daily Metformin 500 MG tablet Discontinued 500 mg PO DAILY December 20, 2019 1:00am May 29, 2025 3:17pm DIABETES methocarbamol 500 mg oral tablet (6 sources) [...] above: Take 1 tablet by tanvi th as directed. 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)] Onset: 03-14-2025 [...] shoulder] 05-30-2023 Episodic Other connective tissue disease (20 sources) Tear of left rotator cuff; Translations: [Unspecified rotator cuff tear or rupture of left shoulder, not specified as traumatic] 05-22-2025 Episodic Other connective tissue disease (2 sources) Unspecified rotator cuff tear or rupture of left shoulder, not specified as traumatic; Translations: [Unspecified rotator cuff tear or rupture of left shoulder, not specified as traumatic] Onset: 09-02-2025 Episodic Other gastrointestinal disorders (2 sources) Chronic [...] Onset: 02-07-2024 Chronic Other nervous system disorders (2 sources) Chronic pain syndrome; Translations: [Chronic pain syndrome] Onset: 04-19-2017 Chronic Other non-traumatic joint disorders (3 sources) Bilateral chronic pain of upper limbs; Translations: [Pain in right shoulder] 08-25-2023 Episodic Other non-traumatic joint disorders (20 sources) Pain in left shoulder; Translations: [Left shoulder pain] Onset: 07-04-2025 04-21-2025 Episodic Other non-traumatic joint disorders (20 sources) Disorder of shoulder; Translations: [Other specified joint disorders, left shoulder] 05-22-2025 Episodic Other non-traumatic joint disorders (2 sources) Other specified joint disorders, left shoulder; Translations: [Other specified joint disorders, left shoulder] Onset: 06-13-2025 Episodic Other screening for suspected conditions (not [...] of lower back, subsequent encounter] 06-13-2024 Episodic Unclassified (2 sources) Impingement of left shoulder Unclassified (2 sources) Tear of left rotator cuff Unclassified (2 sources) Left shoulder pain Unclassified (3 sources) M25.812 - Other specified joint disorders, left shoulder,M75.102 - Unspecified rotator cuff tear or rupture of left shoulder, not specified as traumatic,M25.512 - Pain in left shoulder Unclassified (1 source) Left shoulder pain Unclassified (1 source) M25.812 - Other specified joint disorders, left shoulder Past or Other Problems Problem Classification Problem Date Documented Da te Episodic/Chronic Diabetes mellitus without complication (20 sources) Diabetes mellitus; Translations: [Type 2 diabetes mellitus without complication] Onset: 10-29-2013 Resolved: 04-12-2023 02-14-2017 Chronic Other aftercare (20 sources) Long-term current use of drug therapy; Translations: [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] Onset: 09-24-2018 03-29-2022 Episodic Other aftercare (1 source) 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 Mahad light MD Age/Sex: 44/F Location: [facility] Status: Signed Intake Vital Signs 07/22/25 12:51 09/02/25 12:58 Height 5 ft 8 in 5 ft 8 in Weight: 188 lb 187 lb BMI 28.5 28.4 Intake Visit Reasons: LEFT SHOULDER Chief Complaint: 6 week post-op Accompanied by: Self Is patient in pain?: Yes Pain scale (1-10): 4 Allergies Penicillins (PCN) Allergy (Verified 09/02/25 13:00) Anaphylaxis amoxicillin Adverse Reaction (Verified 09/02/25 13:00) Anaphylaxis Medications ???Medication ???Instructions ???Recorded ???Confirmed ???Type lamotrigine 200 mg tablet 100 mg PO DAILY 12/20/19 09/02/25 History losartan 25 mg tablet 25 mg PO DAILY 12/20/19 09/02/25 H istory topiramate 200 mg capsule 500 mg PO QHS MOOD STABILIZER 12/0109/02/25 History sprinkle,extended release 24 hr valbenazine 80 mg capsule 80 mg PO DAILY GEODONE SE 12/20/19 09/02/25 History ziprasidone HCl 80 mg capsule 100 mg PO DAILY BIPOLAR 12/20/19 1 11/02/24 History trazodone 100 mg tablet 100 - 300 mg PO QHS PRN sleep 04/3009/02/25 History benztropine 2 mg tablet 2 mg PO 4X/DAY 05/29/25 09/02/25 H istory pregabalin 100 mg capsule 100 mg PO TID 05/29/25 09/02/25 Hi story spironolactone 25 mg tablet 50 mg PO BID 05/29/25 09/02/25 His tory oxycodone-acetaminophe n 5 mg-325 1 tab PO Q4H PRN pain 5 days #30 0 06/11/25 09/02/25 Rx mg tablet (Endocet) tabs acetaminophen 500 mg tablet 500 mg PO Q6H PRN 06/24/25 5 History (Acetaminophen Extra Strength) meloxicam 15 mg tablet 15 mg PO QDAY 06/24/25 09/02/25 Hi story Have you [facility] in the past year?: [facility] History Wears glasses Depression Anxiety Bipolar disorder Arthritis Restless legs Former smoker Impingement of left shoulder Left rotator cuff tear Left shoulder pain Surgical History History of wisdom tooth extraction History of tonsillectomy Social History Smoking Status: Former smoker HPI LEFT SHOULDER Details: This documentation accurately reflects the service provided and the decisions made by me, Dr. Mahad Saleh MD 09/02/25 0856. Part of today???s visit was documented by [ ], acting as scribe. SHEILA CROWE is a 44 year old F here today for 3 months FU L shoulder arthroscopy, SAD, RC repair, arthrex cuffmend graft. Patient had a period of time where he was doing little bit better with some time off therapy she started back in and now it is little bit sore again in the anterior aspect of the shoulder no traumatic injuries. No pop. Pain is worse with lifting. There was a period of time where the patient was laying a little bit on the shoulder and having it up to sleep that seem to aggravate it. Office Procedures Ortho Injections Injections Yes Subacromial Injection Left Is this a patient provided medication?: Yes Details: Obtained consent for injection. Under sterile conditions, injected the patients left shoulder with 2cc Kenalog, and 4cc Bupivacaine. The patient tolerated the injection well without any noted complication. Patient should call our office if redness develops, pain worsens or if they have any concerns. Office Meds Kenalog 40 mg/mL suspension for injection Performing Provider: Mahad Saleh MD Performing Location: [facility] Administered by: Mahad Saleh MD on 09/02/25 13:15 Dose Route Admin Location Dispensed Lot Number Expiration Date Package NDC NDC Fine Arts Instructor 40 mg intra-articular left shoulder 1 mL [id number] 10/30/26 37700-080-04 [id number] [facility] Coding Level of Care Code Attention Teena Diagnoses Left rotator cuff tear M75.102 CPT Codes manager servicing.sub (10570) Comment 58579 and CPT inject major joint Assessment and Plan Assessment and Plan (1) Left rotator cuff tear: Status: Acute Plan: SHEILA CROWE is a 44 year old F here today for 3 months FU L shoulder arthroscopy, SAD, RC repair, arthrex cuffmend graft. The patient having some mild anterior shoulder pain but good range of motion and strength of the shoulder likely irritated or bursitis postoperatively. Low chance of an infection although could be other problems of the graft or repair or other problems of the shoulder but this is mostly likely irritation and bursitis so we will try cortisone injection per the patient's request and follow-up in 4 to 6 weeks. Pros (more content not included)... Normal [facility] Re-Evaluation - PT (1)on Re-Evaluation - PT (1) [facility] [address] [place] [address] [address] [place] [address] / REEVALUATION / MEDICARE RECERTIFICATION PHYSICAL THERAPY MR#: [id number] Acct: [id number] Name: SHEILA CROWE Rep #: [id number] : 1980 44 From: Nurys Mckoy MPT Referring Dr.: Dr. Mahad Saleh MD Status:REG RCR Insurance: MEDICARE PART A B [employer] Re-Evaluation Intro: Dr. Mahad Saleh MD, It has been my pleasure to treat SHEILA CROWE over the last 16 visits for S/P L RC Repair with arthrex cuffmend graft and SAD on 06-11-25. Please see the progress note below for an update on the physical therapy plan of care! Subjective Subjective: When pt has pain it is the anterior L shoulder. She reports that it hurts when she tries to reach for something out the the side Objective Objective/Function: Full flexion and ABD AROM and ER AROM 80 and IR WFL UE MMT: R shoulder flexion 9.3 and L 5.3 R shoulder ABD 11.4 and L 8.3 R shoulder ER 8.6 and 5.6 R shoulder IR 6.3 and L 6 Plan Plan Plan: 1X/ week for 4-6 weeks for continue of AAROM.AROM and scapular and RC strengthening with HEP Balance/Gait/Functiona l tests Balance/Special Test Scores Quick DASH Score: 45.4525 Goals Goals Goal 1:: I HEP Goal Time Frame: 8-12 Weeks Goal 2:: AROM L shoulder to 170 elevation and 70 degrees ER with no pain by 8 weeks Goal Time Frame: 6-8 Weeks Goal 3:: Be able to use her L arm functionally without having pain Goal Time Frame: 8-12 Weeks Goal 4:: L shoulder strength to be close to equal with the R shoulder by discharge Goal Time Frame: 8-12 Weeks Anticipated Interventions Anticipated Interventions Patient/Client Instruction: Educate patient on: Condition and Plan of Care For the Purpose of:: To decrease pain, To decrease swelling/inflammation, To increase ROM, To improve nutrient delivery to tissue, To improve muscle performance and motor function, To improve ability to perform ADL's, To increase tolerance to activity/condition/pos ition, To improve performance and independence with ADL's, To decrease level of supervision to perform tasks, To improve health of tissue, To decrease soft tissue restriction and To increase flexibility/ROM Therapeutic Exercise to Include: Strength training, Power training, Postural training, Flexibilty training, Neuromotor development, Passive ROM, Active ROM and Scapular Strength/Stabilization For the Purpose of:: To decrease pain, To decrease swelling/inflammation, To increase ROM, To increase oxygenation perfusion, To improve muscle performance and motor function, To improve ability to perform ADL's, To increase tolerance to activity/condition/pos ition, To improve performance and independence with ADL's, To decrease level of supervision to perform tasks, To improve ability of physical actions for home/community/work/le isure, To improve health of tissue, To decrease soft tissue restriction and To increase flexibility/ROM Manual Therapy Techniques to Include: Passive ROM For the Purpose of:: To increase ROM Cryotherapy (ice pack, ice massage): Yes Thermo therapy (hot pack): Yes For the Purpose of:: To decrease pain, To decrease swelling/inflammation, To increase ROM and To improve nutrient delivery to tissue Re-Evaluation Ending Re-evaluation ending: Please do not hesitate to contact me at [phone] by phone or if you have questions or concerns regarding this new plan of care! Sincerely, Nurys Ean, MPT 08/26/25 1330 CC: Dr. Mahad Saleh MD; Dr. Torres Yao MD Signed For Medicare only, by signing this I certify the plan of care. Physicians Signature Date [facility] 08-11-2025 [facility] Office Visit ([place] ) CROWESHEILA WANG ([id number]) 1980 F Date Time Provider Department 08/11/25 2:00 PM ISAAC CANNON During your visit today, we recorded the following information about you: Pulse Respiration Blood pressure Weight 60/minute 18/minute 112/76 84.8 kg Height 1.727 m Geno Jeong MA 08/11/2025 2:12 PM Signed Room 2 Follow up Fibromyalgia Isaac Cannon MD 08/11/2025 2:12 PM Signed PATIENT: Sheila Crowe : 1980 DATE OF SERVICE: 08/11/2025 REFERRING PRACTITIONER: No ref. provider found PRIMARY CARE PROVIDER: Torres Yao MD CHIEF COMPLAINT: Patient presents with: Fibromyalgia HISTORY OF PRESENT ILLNESS: Sheila Crowe is a 44 year old year old female who presents to the clinic today with chief complaint(s) as above. Following up for: Bilateral shoulder pain, fibromyalgia Response to treatment recommendations: Improvement with right subacromial bursa injection. Patient had left shoulder surgery approximately 7 weeks ago and is currently doing physical therapy. She is still experiencing some pain in the left shoulder Current primary concern/description: Left shoulder pain, tightness in the right thigh area Pain Level: 5 /10 Better with: Cold, heat, massage, medication Worse with: Doing too much with the left shoulder, pain is continuous Numbness/Tingling: [x] Yes [] No-bilateral feet Bladder/bowel fxn change: [] Yes [x] No --- 14 point ROS as above; pertinent positives listed above, the rest are reviewed and confirmed to be negative. Nursing ROS Reviewed and confirmed. === HISTORY: ALLERGIES Allergen Reactions Clindamycin Diarrhea Hives, cramping [...] EXPOSED ROOT (ELEVATION AND/OR FORCEPS REMOVAL) 1995 [place] teeth TONSILLECTOMY PRIMARY/SECONDARY Tonsillectomy FAMILY HISTORY Problem Relation Age of Onset Rheumatologic disease Mother other (stiff persons disease) Father other (autoimmune disorder) Father Diabetes Brother Type 1, age 40 Diabetes Maternal Grandmother Diabetes Paternal Grandmother Heart Paternal Grandmother SOCIAL HISTORY[1] Current Outpatient Medications Medication Sig traZODone (DESYREL) 100 mg tablet Use one half to one tab at bedtime as needed. meloxicam (MOBIC) 15 mg tablet Take 0.5-1 tablets by mouth once daily as needed for pain. losartan (COZAAR) 25 mg tablet Take 25 mg by mouth once daily. diclofenac sodium-menthol (DITHOL) 1.5-10 % combo pack Apply to affected area. ketoconazole (NIZORAL) 2 % shampoo [id number] carb-vit K (WOMEN'S MULTIVITAMIN) 18 mg-400 mcg- [...] Take 200 mg by mouth once daily.) pregabalin (LYRICA) 150 mg capsule Take 1 capsule by mouth three times a day for 120 days. tiZANidine (ZANAFLEX) 4 mg tablet Take 1 tablet by mouth every 8 hours as needed. No current facility-administered medications for this visit. OBJECTIVE: VS: BP 112/76 (BP Site: Left Arm, BP Position: Sitting, BP Cuff Size: Regular Adult) Pulse 60 Resp 18 Ht 172.7 cm (5' 8) Wt 84.8 kg (187 lb) LMP 02/22/2024 SpO2 97% BMI 28.43 kg/m? Body mass index is 28.43 kg/m?. PHYSICAL EXAMINATION: Gen: Well developed. No acute distress. Eyes: Conjunctivae clear. Normal upper and lower lids. CV: Non-cyanotic. No obvious jugular venous distention. Chest: Non-labored breathing, good respiratory effort. Lymph: No v (more content not included)... Normal [facility] Orthopedic Visit Reporton Orthopedic Visit Report [facility] [address] [place] [address] OFFICE VISIT Date of Service: 07/22/25 MR#: [id number] Acct: [id number] Name: SHEILA CROWE Rep #: [id number] : 1980 Provider: Dr. Mahad light MD Age/Sex: 44/F Location: [facility] Status: Signed Intake Vital Signs 06/11/25 05:57 07/22/25 12:51 Height 5 ft 8 in 5 ft 8 in Weight: 188 lb BMI 28.5 Intake Visit Reasons: LEFT SHOULDER Chief Complaint: 6 week post-op Accompanied by: Self Is patient in pain?: Yes Pain scale (1-10): 2 Allergies Penicillins (PCN) Allergy (Verified 07/22/25 12:54) Anaphylaxis amoxicillin Adverse Reaction (Verified 07/22/25 12:54) Anaphylaxis Medications ???Medication ???Instructions ???Recorded ???Confirmed ???Type lamotrigine 200 mg tablet 100 mg PO DAILY 12/20/19 07/22/25 History losartan 25 mg tablet 25 mg PO DAILY 12/20/19 07/22/25 H istory topiramate 200 mg capsule 500 mg PO QHS MOOD STABILIZER 12/0107/22/25 History sprinkle,extended release 24 hr valbenazine 80 mg capsule 80 mg PO DAILY GEODONE SE 12/20/19 07/22/25 History ziprasidone HCl 80 mg capsule 100 mg PO DAILY BIPOLAR 12/20/19 0 07/22/25 History trazodone 100 mg tablet 100 - 300 mg PO QHS PRN sleep 04/3007/22/25 History benztropine 2 mg tablet 2 mg PO 4X/DAY 05/29/25 07/22/25 H istory pregabalin 100 mg capsule 100 mg PO TID 05/29/25 07/22/25 Hi story spironolactone 25 mg tablet 50 mg PO BID 05/29/25 07/22/25 His tory oxycodone-acetaminophe n 5 mg-325 1 tab PO Q4H PRN pain 5 days #30 0 06/11/25 07/22/25 Rx mg tablet (Endocet) tabs acetaminophen 500 mg tablet 500 mg PO Q6H PRN 06/24/25 5 History (Acetaminophen Extra Strength) meloxicam 15 mg tablet 15 mg PO QDAY 06/24/25 07/22/25 Hi story Have you fallen in the past year?: Yes PFSH Medical History Wears glasses Depression Anxiety Bipolar disorder Arthritis Restless legs Former smoker Impingement of left shoulder Left rotator cuff tear Left shoulder pain Surgical History History of wisdom tooth extraction History of tonsillectomy Social History Smoking Status: Former smoker HPI LEFT SHOULDER Details: This documentation accurately reflects the service provided and the decisions made by me, Dr. Mahad Saleh MD 07/22/25 1052. Part of today???s visit was documented by [ ], acting as scribe. SHEILA CROWE is a 44 year old F here today for 6 weeks FU L shoulder arthroscopy, SAD, RC repair, arthrex cuffmend graft. Doing well good range of motion no pain doing some light stretching has good range of motion. Feels weak in the hand. Coding Level of Care Code Global Post Op Diagnoses Left rotator cuff tear M75.102 Left shoulder pain M25.512 Impingement of left shoulder M25.812 Assessment and Plan Assessment and Plan (1) Left rotator cuff tear: Status: Acute Plan: SHEILA CROWE is a 44 year old F here today for 6 weeks FU L shoulder arthroscopy, SAD, RC repair, arthrex cuffmend graft. Doing well. OK to start strengthening. FU 6 weeks. Phase 1: Initial Protection and Pain Management (Weeks 1-2) Dressing: Keep incisions clean and dry. Change dressing every 1-2 days. Sling: Wearing a sling for comfort and to protect the surgical repair Pain Management: Ice, rest, and pain medication are used to control pain and swelling. Gentle Movement: Early passive range of motion exercises are introduced to prevent stiffness. Perform pendulum exercises 4x/day, where the patient gently swings the arm in a controlled manner. Maintaining range of motion and strength in the elbow, wrist, and hand is important to prevent stiffness and muscle atrophy. Phase 2: Gradual Sikh of Motion (Weeks 2-6) Gradually discontinue the sling starting 2 weeks after surgery. Active Assisted Range of Motion: Gradually increasing the range of motion with assistance from the unaffected arm or a physical therapist is introduced. Phase 3: Gradual Sikh of Strength (Weeks 6-12) Light Strengthening: Isometrics and gentle resistance exercises are started to strengthen the rotator cuff muscles. Progression of Exercises: Exercises progress from simple movements like scapular retraction to more complex ones like lateral elevation and external rotation. Phase 4: Functional Exercises and Return to Activity (Weeks 12+) Advanced Strengthening: More challenging exercises are added to further strengthen the shoulder and improve stability. Functional Activities: Exercises that mimic daily activities and sports-specific movements are inco (more content not included)... Normal [facility] Inital Evaluation (1) - PTon 06-25-2025 Inital Evaluation (1) - PT [facility] [address] [place] [address] [address] [place] [address] / REHABILITATION SERVICES INITIAL EVALUATION MR#: [id number] Acct: [id number] Name: SHEILA CROWE Rep #: [id number] : 1980 44 From: Nurys AMADO Referring Dr.: Dr. Mahad Saleh MD Status: R EG RCR Insurance: MEDICARE PART A B [facility] Patient's Visit Information Visit Information Visit Information: SHEILA CROWE is a 44 year old F referred to Physical Therapy by Dr. Mahad Saleh MD with a diagnosis of S/P RC Repair and SAD on 06-11-25. Date of Evaluation: 06/25/25 Physical Therapist: INGRIS Amaya Visit Plan Frequency: 2x /Week Duration: 4 Months Plan: On order pt states to go slow with rehab. Her PROM looks great at eval. 2X/ week for 12-18 weeks for PROM of the L shoulder for 4 weeks (until 07-23) Start AAROM on 07-23 Will assess for strengthening at 8 weeks (08-06-25) to see if ready to advance. May use heat and ice as needed. Subjective Subjective: Pt not sure how she tore her RC but thinks a lot over time. She used to be 300 lbs and did a lot of repetitive overhead stuff and quilting. Pt is 2 weeks post op. said to take out of sling yesterday. She reports that she about the same pain proctor since out of the sling yesterday. She is icing every couple of hours. She has Fibro also and she sees pain management. She is still taking Lyrica and Myloxicam right now. She is sleeping in her bed. She is R handed and the surgery was performed on her L. Pain L shoulder pain: Pain Intensity (Out of 10): 5 Objective Objective: R handed: PROM L shoulder flexion 159 and ER 68 Instructed pt in pendulums (lateral and FW/BW), scapular squeezes, hand ball squeezes Instructed pt ok to use the sling if arm is tired or if in crowded areas Balance/Special Test Scores Quick DASH Score: 70.4525 Goals Goal 1:: I HEP Goal Time Frame: 8-12 Weeks Goal 2:: AROM L shoulder to 170 elevation and 70 degrees ER with no pain by 8 weeks Goal Time Frame: 6-8 Weeks Goal 3:: Be able to use her L arm functionally without having pain Goal Time Frame: 8-12 Weeks Goal 4:: L shoulder strength to be close to equal with the R shoulder by discharge Goal Time Frame: 8-12 Weeks Rehabilitation Potential Rehabilitation Potential: Good Anticipated Interventions Patient/Client Instruction: Educate patient on: Condition and Plan of Care For the Purpose of:: To decrease pain, To decrease swelling/inflammation, To increase ROM, To improve nutrient delivery to tissue, To improve muscle performance and motor function, To improve ability to perform ADL's, To increase tolerance to activity/condition/pos ition, To improve performance and independence with ADL's, To decrease level of supervision to perform tasks, To improve health of tissue, To decrease soft tissue restriction and To increase flexibility/ROM Therapeutic Exercise to Include: Strength training, Power training, Postural training, Flexibilty training, Neuromotor development, Passive ROM, Active ROM and Scapular Strength/Stabilization For the Purpose of:: To decrease pain, To decrease swelling/inflammation, To increase ROM, To increase oxygenation perfusion, To improve muscle performance and motor function, To improve ability to perform ADL's, To increase tolerance to activity/condition/pos ition, To improve performance and independence with ADL's, To decrease level of supervision to perform tasks, To improve ability of physical actions for home/community/work/le isure, To improve health of tissue, To decrease soft tissue restriction and To increase flexibility/ROM Manual Therapy Techniques to Include: Passive ROM For the Purpose of:: To increase ROM Cryotherapy (ice pack, ice massage): Yes Thermo therapy (hot pack): Yes For the Purpose of:: To decrease pain, To decrease swelling/inflammation, To increase ROM and To improve nutrient delivery to tissue Text: Thank you for the opportunity to evaluate your patient. For Medicare and Medicare HMO plans, please review the plan of care and approve it. It will need to be FAXED BACK to us at [phone] for Medicare purposes. For Medicare only, by signing this I certify the plan of care. Please let me know if there are questions or concerns regarding this plan of care. Physician Signature: Date:__ 06/25/25 1259 CC: Dr. Mahad Saleh MD; Dr. Torres Yao MD Signed Normal [facility] Orthopedic Visit Reporton Orthopedic Visit Report [facility] [address] [place] [address] OFFICE VISIT Date of Service: 06/24/25 MR#: [id number] Acct: [id number] Name: SHEILA CROWE Rep #: [id number] : 1980 Provider: Dr. Mahad light MD Age/Sex: 44/F Location: [facility] Status: Signed Intake Vital Signs 05/22/25 10:24 06/11/25 05:57 Height 5 ft 8 in 5 ft 8 in Intake Visit Reasons: left shoulder Chief Complaint: 2 week post-op Accompanied by: Self Is patient in pain?: Yes (shooting pain into forearm) Pain scale (1-10): 4 Allergies Penicillins (PCN) Allergy (Verified 06/24/25 13:07) Anaphylaxis amoxicillin Adverse Reaction (Verified 06/24/25 13:07) Anaphylaxis Medications ???Medication ???Instructions ???Recorded ???Confirmed ???Type lamotrigine 200 mg tablet 100 mg PO DAILY 12/20/19 06/24/25 History losartan 25 mg tablet 25 mg PO DAILY 12/20/19 06/24/25 H istory topiramate 200 mg capsule 500 mg PO QHS MOOD STABILIZER 12/0106/24/25 History sprinkle,extended release 24 hr valbenazine 80 mg capsule 80 mg PO DAILY GEODONE SE 12/20/19 06/24/25 History ziprasidone HCl 80 mg capsule 100 mg PO DAILY BIPOLAR 12/20/19 0 06/24/25 History trazodone 100 mg tablet 100 - 300 mg PO QHS PRN sleep 04/3006/24/25 History benztropine 2 mg tablet 2 mg PO 4X/DAY 05/29/25 06/24/25 H istory pregabalin 100 mg capsule 100 mg PO TID 05/29/25 06/24/25 Hi story spironolactone 25 mg tablet 50 mg PO BID 05/29/25 06/24/25 His tory oxycodone-acetaminophe n 5 mg-325 1 tab PO Q4H PRN pain 5 days #30 0 06/11/25 06/24/25 Rx mg tablet (Endocet) tabs acetaminophen 500 mg tablet 500 mg PO Q6H PRN 06/24/25 5 History (Acetaminophen Extra Strength) meloxicam 15 mg tablet 15 mg PO QDAY 06/24/25 06/24/25 Hi story oxycodone-acetaminophe n 5 mg-325 1 tab PO Q8H PRN pain 5 days #14 0 06/24/25 06/24/25 Rx mg tablet (Percocet) tabs PFSH Medical History Wears glasses Depression Anxiety Bipolar disorder Arthritis Restless legs Former smoker Impingement of left shoulder Left rotator cuff tear Left shoulder pain Surgical History History of wisdom tooth extraction History of tonsillectomy Social History Smoking Status: Former smoker HPI left shoulder Details: This documentation accurately reflects the service provided and the decisions made by me, Dr. Mahad Saleh MD 06/24/25 1121. Part of today???s visit was documented by [ ], acting as scribe. SHEILA CROWE is a 44 year old F here today for 2 weeks FU L shoulder arthroscopy, SAD, RC repair, arthrex cuffmend graft. still having pain 5/10. asking for more medications. was on chronic pain medications before / was seeing pain medicine doctor. no redness/ signs of infection. starts PT this week. feels better without the sling. Coding Level of Care Code Global Post Op Diagnoses Impingement of left shoulder M25.812 Left rotator cuff tear M75.102 Left shoulder pain M25.512 Assessment and Plan Assessment and Plan (1) Impingement of left shoulder: Status: Acute Plan: SHEILA CROWE is a 44 year old F here today for 2 weeks FU L shoulder arthroscopy, SAD, RC repair, arthrex cuffmend graft. Doing well, a bit anxious. 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 will prescribe short course at night only / for PT. DC sling. FU 4 weeks. Phase 1: Initial Protection and Pain Management (Weeks 1-2) Dressing: Keep incisions clean and dry. Change dressing every 1-2 days. Sling: Wearing a sling for comfort and to protect the surgical repair Pain Management: Ice, rest, and pain medication are used to control pain and swelling. Gentle Movement: Early passive range of motion exercises are introduced to prevent stiffness. Perform pendulum exercises 4x/day, where the patient gently swings the arm in a controlled manner. Maintaining range of motion and strength in the elbow, wrist, and hand is important to prevent stiffness and muscle atrophy. Phase 2: Gradual Sikh of Motion (Weeks 2-6) Gradually discontinue the sling starting 2 weeks after surgery. Active Assisted Range of Motion: Gradually increasing the range of motion with assistance from the unaffected arm or a physical therapist is introduced. Phase 3: Gradual Sikh of Strength (Weeks 6-12) Light Strengthening: Isometrics and gentle resistance exercises are started to strengthen the rotator cuff muscles. Progression of Exercises: Exercises progress from simple movements like scapular retraction to more complex ones like lateral elevation and external rotation. Phase 4: Functional Exercises and Return to Acti (more content not included)... Normal [facility] Orthopedic Visit Reporton Orthopedic Visit Report [facility] [place] [address] OFFICE VISIT Date of Service: 06/13/25 MR#: [id number] Acct: [id number] Name: SHEILA CROWE Rep #: [id number] : 1980 Provider: Dr. Mahad light MD Age/Sex: 44/F Location: [facility] Status: Signed Intake Vital Signs 05/22/25 10:24 06/11/25 05:57 Height 5 ft 8 in 5 ft 8 in Intake Visit Reasons: left shoulder Chief Complaint: Left shoulder pain Is patient in pain?: Yes Pain scale (1-10): 7 Allergies Penicillins (PCN) Allergy (Verified 06/13/25 13:05) Anaphylaxis amoxicillin Adverse Reaction (Verified 06/13/25 13:05) Anaphylaxis Medications ???Medication ???Instructions ???Recorded ???Confirmed ???Type lamotrigine 200 mg tablet 100 mg PO DAILY 12/20/19 06/13/25 History losartan 25 mg tablet 25 mg PO DAILY 12/20/19 06/13/25 H istory topiramate 200 mg capsule 500 mg PO QHS MOOD STABILIZER 12/0106/13/25 History sprinkle,extended release 24 hr valbenazine 80 mg capsule 80 mg PO DAILY GEODONE SE 12/20/19 06/13/25 History ziprasidone HCl 80 mg capsule 100 mg PO DAILY BIPOLAR 12/20/19 0 06/13/25 History trazodone 100 mg tablet 100 - 300 mg PO QHS PRN sleep 04/3006/13/25 History benztropine 2 mg tablet 2 mg PO 4X/DAY 05/29/25 06/13/25 H istory pregabalin 100 mg capsule 100 mg PO TID 05/29/25 06/13/25 Hi story spironolactone 25 mg tablet 50 mg PO BID 05/29/25 06/13/25 His tory oxycodone-acetaminophe n 5 mg-325 1 tab PO Q4H PRN pain 5 days #30 0 06/11/25 06/13/25 Rx mg tablet (Endocet) tabs PFSH Medical History Wears glasses Depression Anxiety Bipolar disorder Arthritis Restless legs Former smoker Impingement of left shoulder Left rotator cuff tear Left shoulder pain Surgical History History of wisdom tooth extraction History of tonsillectomy Social History Smoking Status: Former smoker HPI left shoulder Details: This documentation accurately reflects the service provided and the decisions made by me, Dr. Mahad Saleh MD 06/13/25 1125. Part of today???s visit was documented by [ ], acting as scribe. SHEILA CROWE is a 44 year old F here today for POD 2 L shoulder arthroscopy, SAD, RC repair, arthrex cuffmend graft. Doing reasonably well. Having pain postoperatively the block wore off Coding Level of Care Code Global Post Op Diagnoses Impingement of left shoulder M25.812 Left rotator cuff tear M75.102 Left shoulder pain M25.512 Assessment and Plan Assessment and Plan (1) Impingement of left shoulder: Status: Acute Plan: SHEILA CROWE is a 44 year old F here today for POD 2 L shoulder arthroscopy, SAD, RC repair, arthrex cuffmend graft. FU 2 weeks. Start PT at 3 weeks post op. Sling 2-3 weeks. Phase 1: Initial Protection and Pain Management (Weeks 1-2) Dressing: Keep incisions clean and dry. Change dressing every 1-2 days. Sling: Wearing a sling for comfort and to protect the surgical repair Pain Management: Ice, rest, and pain medication are used to control pain and swelling. Gentle Movement: Early passive range of motion exercises are introduced to prevent stiffness. Perform pendulum exercises 4x/day, where the patient gently swings the arm in a controlled manner. Maintaining range of motion and strength in the elbow, wrist, and hand is important to prevent stiffness and muscle atrophy. Phase 2: Gradual Sikh of Motion (Weeks 2-6) Gradually discontinue the sling starting 2 weeks after surgery. Active Assisted Range of Motion: Gradually increasing the range of motion with assistance from the unaffected arm or a physical therapist is introduced. Phase 3: Gradual Sikh of Strength (Weeks 6-12) Light Strengthening: Isometrics and gentle resistance exercises are started to strengthen the rotator cuff muscles. Progression of Exercises: Exercises progress from simple movements like scapular retraction to more complex ones like lateral elevation and external rotation. Phase 4: Functional Exercises and Return to Activity (Weeks 12+) Advanced Strengthening: More challenging exercises are added to further strengthen the shoulder and improve stability. Functional Activities: Exercises that mimic daily activities and sports-specific movements are incorporated to prepare the patient for a return to their desired level of activity. (2) Left rotator cuff tear: Status: Acute (3) Left shoulder pain: Status: Acute Orders: Referrals PT Referral M25.512 - Pain in left shoulder, M25.812 - Other specified joint disorders, left shoulder, M75.102 - Unspecified rotator cuff tear or r (more content not included)... Normal [facility] Discharge Instructionon 05-30 Discharge Instruction [facility] Medical Records Department [address] [place] [address] Instructions for Home/Discharge Instructions 06/11/25 0922 MR#: [id number] Acct: [id number] Name: SHEILA CROWE Rep #: [id number] : 1980 44 From: Mahad Saleh MD PCP: Dr. Torres Yao MD Status:[place] [facility] [place]charge Instructions Diet Discharge Diet: No restrictions Activity Ice area for (Minutes): 10 Lifting Restrictions: no lifting over 1 pound, pendulums 4x/day Additional Activity Instructions:: ok to remove sling at rest, hand wrist elbow ROM 4x/juan josé Dressing / Incision Call your doctor if your incision/area has: Continuous Slow Oozing, Sudden Increased Bleeding, Increased Pain/ Swelling, Increased Redness, Foul Smelling Discharge and Swelling at the incision site Call your doctor if you observe: Fever of 101 or Higher, Coldness, Increased Pain and Numbness or Tingling Change Dressing in: leave in place till F/U Cleanse incision/area with: Do not get Incision Wet Additional Dressing/Incision Instructions:: ok to change dressing if leaks or is wet Follow Up Care Please Follow Up With: Mahad Saleh MD When: within 2 weeks Test Results: Test results from this visit will be discussed in further detail at your follow-up appointment, if applicable. Discharge Plan Admission Attending Provider: Mahad Saleh Primary Care Provider: Torres Yao Instructions Patient Instructions: Shoulder Arthroscopy Print Language: Senegalese Discharge Orders/Prescriptions Prescriptions: New oxycodone-acetaminophe n [Endocet] 5-325 mg tablet 1 tab PO Q4H MDD 6 PRN (Reason: pain) 5 Days Qty: 30 0RF No Action trazodone 100 mg tablet 100 - 300 mg PO QHS PRN (Reason: sleep) ziprasidone HCl 80 MG capsule 100 mg PO DAILY lamotrigine 200 MG tablet 100 mg PO DAILY losartan 25 MG tablet 25 mg PO DAILY topiramate 200 MG capsule,sprinkle,ER 24hr 500 mg PO QHS valbenazine 80 MG capsule 80 mg PO DAILY spironolactone 25 mg tablet 50 mg PO BID Rx Instructions: 50 MG IN AM, 25 MG IN PM benztropine 2 mg tablet 2 mg PO 4X/DAY pregabalin 100 mg capsule 100 mg PO TID Referrals / Follow Up: Mahad Saleh MD [Med Staff - Active Staff] - Torres Yao MD [Primary Care Provider] - Disposition Disposition (needs filled in before D/C Order can be placed): Home, Self Care 06/11/25 0924 Mahad Saleh MD CC: Dr. Torres Yao MD Signed [facility] MR/POSTOP.[facility] 06-11-2025 MR/POSTOP.[facility] Medical Records Department [address] [place] [address] Anesthesia Postop Eval I 06/11/25 1033 MR#: [id number] Acct: [id number] Name: SHEILA CROWE Rep #: [id number] : 1980 44 From: Ayaz Pollard CRNA PCP: Dr. Torres Yao MD Status:REG SDC Y Race: C Location: [place] [address] Anesthesia: Postop Eval I Current Vital Signs Temperature: 97.3 F Pulse Rate: 47 Blood Pressure: 100/77 Respiratory Rate: 16 Pulse Ox: 96 Oxygen Delivery Method: Room Air Assessment Airway patent: Yes Spontaneous unlabored respirations: Yes Mental status: Awake and Calm nausea: No Vomiting: No Anesthesia Complication: No Fluid Hydration Crystalloid volume administer (ml): 1,200 Total IV fluid infused: 1,200 Progress Note Anesthesia document: Postop Eval 1 completed: Yes 06/11/25 1033 Date Ayaz Pollard VACUUM FRAME OPERATOR Cosigner Signature: Date CC: Signed Normal [facility] MR/[id number] 06-11-2025 /[facility] Medical Records Department [address] [place] [address] Anesthesia Postop Eval II 06/11/25 1533 MR#: [id number] Acct: [id number] Name: SHEILA CROWE Rep #: [id number] : 1980 44 From: Bianka Vega CRNA PCP: Dr. Torres Yao MD Status:[facility] Y Race: C [place] [facility] [place]esthesia Postop Eval I Sum Postop Eval Completion status Anesthesia document: Postop Eval 1 completed: Yes Anesthesia Postop Eval I Summary Anesthesia Postop Eval I Summary: Anesthesia Postop Eval I: Assessment Summary Airway patent Yes 06/11/25 10:33 VACUUM FRAME OPERATOR.SURYALOU Spontaneous unlabored Yes 06/11/25 10:33 VACUUM FRAME OPERATOR.JBLOU respirations Mental status Awake,Calm 06/11/25 10:33 VACUUM FRAME OPERATOR.JBLOU nausea No 06/11/25 10:33 VACUUM FRAME OPERATOR.JBLOU Vomiting No 06/11/25 10:33 VACUUM FRAME OPERATOR.JBLOU Anesthesia Postop Eval I: Fluid Summary Crystalloid volume administer 1,200 06/11/25 10:33 VACUUM FRAME OPERATOR.JBLOU (ml) Colloids volume administered ( ml) Blood Product volume administered (ml) Total IV fluid infused 1,200 06/11/25 10:33 VACUUM FRAME OPERATOR.JBLOU Anesthesia Postop Eval I: Summary Notes Anesthesia Complication No 06/11/25 10:33 VACUUM FRAME OPERATOR.JBLOU Anesthesia Complication Comment: Post-operative progress note Anesthesia: Postop Eval II Evaluation Mental status: Awake Pain Level: 3 nausea: No Vomiting: No 06/11/25 1534 Date Bianka Vega VACUUM FRAME OPERATOR Cosigner Signature: Date CC: Signed Normal [facility] Operative Reporton 5 Operative Report [facility] Medical Records Department [address] [place] [address] Operative Report 06/11/25923 MR#: [id number] Acct: [id number] Name: SHEILA CROWE Rep #: [id number] : 1980 44 From: Mahad Saleh MD PCP: Dr. Torres Yao MD Status:[facility] Location: [place] [address] Problems Associated Problem List Diagnoses (1) Impingement of left shoulder: (2) Left rotator cuff tear: (3) Left shoulder pain: Procedures Musculoskeletal 20xxx-29xxx: Other Procedure See Report Operative Report (Standard) Operative Information Date of Procedure: 06/11/25 Pre-Operative Diagnosis: L shoulder impingement, rotator cuff tear Post-Operative Diagnosis: same Surgery/Procedure Performed: L shoulder arthroscopy, SAD, RC repair, arthrex cuffmend graft sub prior: Yes Lining Vamper: shane Tasks completed by assistant professor of biochemistry: Retracting Additional assistant news director?: No Type of Anesthesia: Block,Regional and General RN Documented Start/Stop Times: Operation Date: 06/11/25 07:30 Case Time Into Pre-Op 06/11/25 05:44 Anesthesia Start 06/11/25 07:22 Into Room 06/11/25 07:22 Out of Pre-Op 06/11/25 07:22 Procedure Start 06/11/25 07:47 Procedure Start Time: 07:47 Procedure Stop Time: 09:18 Select all DRAINS/GRAFTS/IMPLANTS that apply: Graft Graft details: arthrex cuff mend allograft tissue. Estimated Blood Loss: 50 Specimen collected: No Description of surgery: Patient brought to the operating room theater. Placed supine on the table. General anesthesia induced. 2 g of IV Ancef administered prior to the start of the case. Patient transferred left side up lateral decubitus beanbag positioner. Axillary roll placed. SCDs on the legs. All bony prominences padded. Upper extremity prepped and draped in the usual sterile fashion with chlorhexidine-based prep solution allowing over 3 minutes drying time prior to draping. 10 pounds of inline traction with the arm in 40 degrees of abduction was used. Preoperative timeout performed to confirm the site patient and the surgery. Began by inserting the arthroscope into the intra-articular portion of the shoulder. Use spinal needle inside out localization to perform an anterior portal through the rotator interval. Did a full diagnostic arthroscopy. Cartilage on the humeral head and the glenoid was normal. There was some longitudinal fraying of the biceps tendon but the origin at the superior glenoid was normal. Slight fraying of the labrum gently debrided. The subscapularis was normal. The rotator supraspinatus had a full-thickness crescent-shaped tear with minor retraction to the level of the mid humeral head. This was mobile. I then placed the arthroscope into the subacromial space and used 2 accessory lateral portals. Again the cuff was mobile. I gently debrided the edges. I prepared the tuberosity. I did a subacromial decompression for the type III acromion to flat margins for about 4 mm. I used the Arthrex power pick for multiple trephination's. I placed 2 Arthrex 2.6 mm fiber tack RC anchors just off the articular margin. Set the anchors remove the stay suture. I passed the anchors from deep to superficial through the supraspinatus tendon and cut at the swedge. I then crisscrossed the sutures and inserted these into two 4.75 mm bio composite knotless swivel anchors just off a margin of the footprint. This achieved good compression and repair of the rotator cuff tendon. I also used the accessory stay suture to pass a simple suture at the anterior and posterior margins of the tear From both anchors. I then prepared the Arthrex cuff mend graft marking the superior aspect with purple marker. I attached the fiber link sutures to the lateral side as well as simple sutures in order to attach the graft to the passing device. Passport cannulas inserted laterally. The graft was then inserted into the subacromial space on top of the repair. I fixed this medially with the included knotless all inside medial sutures and a horizontal mattress fashion 2 of those repair sutures that were stable and solid. The newspaper inserter was removed. I then used the fiber link sutures at the lateral corners to then insert these into push lock anchors in the standard fashion just lateral to the knotless swivel lock anchors. This achieved good compression and spread of the graft at the greater tuberosity and at the cuff repair site. Arthroscopy pictures taken and saved onto the system wounds thoroughly irrigated. Meticulous hemostasis achieved. Portal sites cleaned with wet dry dressing followed by closure of the portals with 3-0 Monocryl sutures. Steri-Strips Adaptic 4 x 4 gauze ABD dressing with cloth tape and an abduction pillow sling was then placed. Patient woken up from general anesthetic transferred off the operating room table and taken to postanesthetic care unit in stable condition. Al (more content not included)... Normal [facility] ,Urineon 06-11-2025 Beta HCG ( test) Ql (U) Negative Normal [facility] Comment on above: Result Comment: Very dilute urine specimens, as indicated by a low specific gravity, may not contain factory representative levels of hCG. If is still suspected, a first morning urine specimen should be collected 48 hours later and tested. Performed By: #### L [id number] #### [facility] Laboratory [facility] [place], [address] Urine testOrdered By: Rocael Moctezuma on 06-11-2025 HCG ( test) Ql (U) Negative [facility] Comment on above: Very dilute urine sp ecimens, as indicated by a low specificgravity, may not contain factory representative levels of hCG. If is still suspected, a first morning urinespecimen should be collected 48 hours later and tested. Orthopedic Visit Reporton Orthopedic Visit Report [facility] [address] [place] [address] [address] [place] [address] OFFICE VISIT Date of Service: 05/22/25 MR#: [id number] Acct: [id number] Name: SHEILA CROWE Rep #: [id number] : 1980 Provider: Dr. Mahad light MD Age/Sex: 44/F Location: [facility] Status: Signed Intake Vital Signs 04/21/25 11:00 [...] you fallen in the past year?: No [facility]LY [facility] Medical History (Updated 05/22/25 @ 10:27 by [...] Psychologic: Yes reasonable and appropriate Supplemental Info [facility] Imaging Services [facility] [place], [place] [address] Upper Ext Joint Only(Routine) MR#: [id number] Acct: [id number] Name: SHEILA CROWE Rep #: [id number] : 1980 F 44 From: Tomer Arauz MD PCP: Dr. Torres Yao MD Status: [facility] CLI Study: Upper Ext Joint Only(Routine) Date of Exam: 05/20/25 Exam# [id number] Ordering Dr: Mahad Saleh MD PROCEDURE: UPPER [...] extends in (more content not included)... Normal [facility] Magnetic resonance imaging r eportOrdered By: Tomer Arauz on 05-21-2025 Study report [facility] Imaging Services [address] [place] [address] Upper Ext Joint Only(Routine) MR#: [id number] Acct: [id number] Name: SHEILA CROWE Rep #: [id number] : 1980 F 44 From: Adriana Arauz MD PCP: Dr. Torres Yao MD Status: [facility] [address] Study:Upper Ext Joint Only(Routine) Date of Exam: 05/20/25 Exam# [id number] Ordering Dr: Mahad Saleh MD PROCEDURE: UPPER [...] into the subacromial subdeltoid bursa. Reading [facility] CC: Dr. Mahad Saleh MD; Dr. Torres Yao MD ~ In Shop Service Technician: Signed [facility] Upper Ext Joint Only(Routine )on 05-20-2025 Upper Ext Joint Only(Routine) [facility] Imaging Services [address] [place] [id number] Upper Ext Joint Only(Routine) MR#: [id number] Acct: [id number] Name: SHEILA CROWE Rep #: [id number] : 1980 F 44 From: Tomer Arauz MD PCP: Dr. Torres Yao MD Status: REG CLI Study: Upper Ext Joint Only(Routine) Date of Exam: 0 05/20/25 Exam# [id number] Ordering Dr: Mahad Saleh MD PROCEDURE: UPPER [...] Mahad Saleh MD; Dr. Torres Yao MD In Shop Service Technician: Signed Normal [facility] CNOVon 05-16-2025 CNOV Office Visit (FAMPWS ) SHEILA CROWE ([id number]) 1980 F Date Time Provider Department 05/16/25 1:40 PM [facility] During your visit today, we recorded the following information about you: Pulse Blood pressure Weight 77/minute 120/72 84.8 kg Torres Yao MD 05/16/2025 1:57 PM Addendum [facility] - Insurance Therapy/Counseling Formerly [facility] [address] [place] [address] [facility] [address] [place] [address] [address] [address] [facility] [address] [place] [address] [facility] [address] [place] [address] [facility] [address] [place] [address] [employer] [address] [place] [address] [facility] [address] [place] [address] Torres Yao MD 05/16/2025 1:58 PM Signed [...] affected area. ketoconazole (NIZORAL) 2 % shampoo an-ao-npsd-FA-Ca carb-vit K (WOMEN'S MULTIVITAMIN) 18 mg-400 mcg- [...] EXPOSED ROOT (ELEVATION AND/OR FORCEPS REMOVAL) 1995 [place] teeth TONSILLECTOMY PRIMARY/SECONDARY Tonsillectomy FAMILY HISTORY Problem Relation Age of Onset Rheumatologic disease Mother other (stiff persons disease) Father other (autoimmune disorder) Father Diabetes Br (more content not included)... Normal [facility] CNOVon 05-15-2025 CNOV Office Visit ([place] ) SHEILA CROWE ([id number]) 1980 F Date Time Provider Department 05/15/25 11:30 AM FREEMAN SARABIA During your visit today, we recorded the following information about you: Pulse Respiration Blood pressure 74/minute 16/minute 132/83 Freeman Sarabia PA-C 05/15/2025 12:06 PM Signed This note was created using Predixion Softwareter. Subjective Sheila Crowe is a 44 year [...] used: daily Benefit: helps Physical Therapy: 01/2025 [facility] Last UDS: not on narcotics Last injection: 09/17/24 - bilateral subacromial bursa OARRS reviewed At the present time, the patient reports benefit with her present analgesic therapy. She denies any adverse effects. Since her previous visit, she denies any hospitalizations or ER visits. She is scheduled for a left shoulder MRI on Monday that was ordered by Dr. Saleh at [facility] 03/14/2025 05/15/2025 INTAKE PAIN ASSESSMENT [...] EXPOSED ROOT (ELEVATION AND/OR FORCEPS REMOVAL) 1995 [place] teeth TONSILLECTOMY PRIMARY/SECONDARY Tonsillectomy Social History Tobacco [...] light touc (more content not included)... [facility] Office Visit (FAMPWS ) SHEILA CROWE ([id number]) 1980 F Date Time Provider Department 05/05/25 12:40 PM [facility] During your visit today, we recorded the following information about you: Temperature Pulse Blood pressure Weight 97.6 degrees 67/minute 110/66 88.9 kg Ellen Rene APRN.RUFFLING MACHINE OPERATOR 05/05/2025 1:09 PM Signed This is a [...] prescribed by a pain management provider at [facility]. - Uses TENS unit and ice [...] EXPOSED ROOT (ELEVATION AND/OR FORCEPS REMOVAL) 1995 [place] teeth TONSILLECTOMY PRIMARY/SECONDARY Tonsillectomy ALLERGIES Clindamycin, Levaquin [...] % combo pack Apply to affected area. jx-yk-wvhn-FA-Ca carb-vit K (WOMEN'S MULTIVITAMIN) 18 mg-400 mcg- [...] Use Vapin (more content not included)... Normal [facility] PELVIS BLADDERon 05-05-20 25 US PELVIS BLADDER * * *Final Report* * [...] calculi, abnormal bladder wall mass or trabeculation In Shop Service Technician: [facility] Transcribe Date/Time: May 05 2025 3:29P Dictated by : DEE DEE TORRES MD This examination was interpreted and the report reviewed and electronically signed by: DEE DEE TORRES MD on May 05 2025 3:31PM EST [id number] Normal [facility] US Urinary bladderon 025 * * [...] calculi, abnormal bladder wall mass or trabeculation In Shop Service Technician: [facility] Transcribe Date/Time: May 05 2025 3:29P Dictated by : DEE DEE TORRES MD This examination was interpreted and the report reviewed and electronically signed by: DEE DEE TORRES MD on May 05 2025 3:31PM EST [facility] Provider, [facility] - 05/05/2025 * * *Final Report* * [...] calculi, abnormal bladder wall mass or trabeculation In Shop Service Technician: TAINA Transcribe Date/Time: May 05 2025 3:29P Dictated by : DEE DEE TORRES MD This examination was interpreted and the report reviewed and electronically signed by: DEE DEE TORRES MD on May 05 2025 3:31PM EST [facility] Radiology Study observation (narrative) [facility] US Urinary bladderOrdered By : Ccf Provider on 05-05-2025 [facility] Urinalysis complete panel (U )on 05-05-2025 Bacteria LM.HPF (Urine sed) [#/Area] Negative Negative /HPF [facility] Bilirubin Ql (U) Negative Negative [facility] Clarity (Unsp spec) Clear Clear [facility] Color (U) Yellow Yellow [facility] Epithelial cells LM.HPF (Urine sed) [#/Area] None Seen /HPF [facility] Glucose Test strip (U) [Mass/Vol] Negative Negative [facility] Hemoglobin Ql (U) Negative Negative [facility] Hyaline casts (Urine sed) [#/Area] 0 /[LPF] 0 /LPF [facility] Ketones Ql (U) Negative Negative [facility] Leukocyte esterase Test strip Ql (U) Negative Negative [facility] Nitrite Ql (U) Negative Negative [facility] pH (U) 6.5 [pH] NINF - 8.5 [facility] Protein (U) [Mass/Vol] Negative Negative [facility] RBC LM.HPF (Urine sed) [#/Area] 0-2 /HPF 0-2 /HPF [facility] Specific gravity (U) [Rel density] 1.011 1.005 - 1.030 [facility] Urobilinogen Ql (U) 0.2 EU/dL 0.2-1.0 EU/dL [facility] WBC LM.HPF (Urine sed) [#/Area] 0-5 /HPF 0-5 /HPF [facility] This test was developed and its performance characteristics determined by [facility]'s Theo Dugan [facility] Pathology and Laboratory Medicine [place] ([facility]). It has not been cleared or approved by the FDA. [facility] is regulated under CLIA as qualified to perform high-complexity testing. This test is used for clinical purposes. It should not be regarded as investigational or for research. [facility] Bacteria LM.HPF (Urine sed) [#/Area] Negative Normal Negative [facility] Comment on above: Order Comment: Speci men Type: URINE SPECIMENOrdering Facility: [facility] Address: [address] [place] [address] Performed By: #### 2 4356-8 ####[facility] LABCLIA [id number] [place] [address] [place] Bilirubin Ql (U) Negative Normal Negative [facility] Comment on above: Order Comment: Speci men Type: URINE SPECIMENOrdering Facility: [facility] Address: [address] [place] [address] Performed By: #### 2 4356-8 ####[facility] LABCLIA [id number] [place] [address] [place] Clarity (Unsp spec) Clear Normal Clear [facility] Comment on above: Order Comment: Speci men Type: URINE SPECIMENOrdering Facility: [facility] Address: [address] [place] [address] Performed By: #### 2 4356-8 ####[facility] LABCLIA [id number] [place] [address] [place] Color (U) Yellow Normal Yellow [facility] Comment on above: Order Comment: Speci men Type: URINE SPECIMENOrdering Facility: [facility] Address: [address] [place] [address] Performed By: #### 2 4356-8 ####[facility] LABCLIA [id number] [place] [id number] [place] Epithelial cells LM.HPF (Urine sed) [#/Area] None Seen Normal [facility] Comment on above: Order Comment: Speci men Type: URINE SPECIMENOrdering Facility: [facility] Address: [address] [place] [address] Performed By: #### 2 4356-8 ####[facility] LABCLIA [id number] [address] [place] [address] [place] Glucose Test strip (U) [Mass/Vol] Negative Normal Negative [facility] Comment on above: Order Comment: Speci men Type: URINE SPECIMENOrdering Facility: [facility] Address: [address] [place] [address] Performed By: #### 2 4356-8 ####[facility] LABCLIA [id number] [address], [facility]95 [place] Hemoglobin Ql (U) Negative Normal Negative [facility] Comment on above: Order Comment: Speci men Type: URINE SPECIMENOrdering Facility: [facility] Address: [address] [place] [address] Performed By: #### 2 4356-8 ####[facility] LABCLIA [id number] [address], [place] [address] [place] Hyaline casts (Urine sed) [#/Area] 0 /[LPF] Normal 0 /LPF [facility] Comment on above: Order Comment: Speci men Type: URINE SPECIMENOrdering Facility: [facility] Address: [address] [place] [address] Performed By: #### 2 4356-8 ####[facility] LABCLIA [id number] [address], [facility] [place] Ketones Ql (U) Negative Normal Negative [facility] Comment on above: Order Comment: Speci men Type: URINE SPECIMENOrdering Facility: [facility] Address: [address] [place] [address] Performed By: #### 2 4356-8 ####[facility] LABCLIA [id number] [address], [facility] [place] Leukocyte esterase Test strip Ql (U) Negative Normal Negative [facility] Comment on above: Order Comment: Speci men Type: URINE SPECIMENOrdering Facility: [facility] Address: [address] [place] [address] Performed By: #### 2 4356-8 ####[facility] LABCLIA [id number] [place] [address] [place] Nitrite Ql (U) Negative Normal Negative [facility] Comment on above: Order Comment: Speci men Type: URINE SPECIMENOrdering Facility: [facility] Address: [address] [place] [address] Performed By: #### 2 4356-8 ####[facility] LABCLIA [id number] [place] [address] [place] pH (U) 6.5 [pH] Normal <8.5 [facility] Comment on above: Order Comment: Speci men Type: URINE SPECIMENOrdering Facility: [facility] Address: [address] [place] [address] Performed By: #### 2 4356-8 ####[facility] LABIA [id number] [place] [address] [place] Protein (U) [Mass/Vol] Negative Normal Negative [facility] Comment on above: Order Comment: Speci men Type: URINE SPECIMENOrdering Facility: [facility] Address: [address] [place] [address] Performed By: #### 2 4356-8 ####[facility] LABIA [id number] [place] [address] [place] RBC LM.HPF (Urine sed) [#/Area] 0-2 /HPF Normal 0-2 /HPF [facility] Comment on above: Order Comment: Speci men Type: URINE SPECIMENOrdering Facility: [facility] Address: [address] [place] [address] Performed By: #### 2 4356-8 ####[facility] LABCLIA [id number] [place] [address] [place] Specific gravity (U) [Rel density] 1.011 Normal 1.005-1.030 [facility] Comment on above: Order Comment: Speci men Type: URINE SPECIMENOrdering Facility: [facility] Address: [address] [place] [address] Performed By: #### 2 4356-8 ####[facility] LABCLIA [id number] [place] [id number] [place] Urobilinogen Ql (U) 0.2 EU/dL Normal 0.2-1.0 EU/dL Cl [facility] Comment on above: Order Comment: Speci men Type: URINE SPECIMENOrdering Facility: [facility] Address: [address] [place] [address] Performed By: #### 2 4356-8 ####[facility] LABIA [id number] [place] [address] [place] WBC LM.HPF (Urine sed) [#/Area] 0-5 /HPF Normal 0-5 /HPF [facility] Comment on above: Order Comment: Speci men Type: URINE SPECIMENOrdering Facility: [facility] Address: [address] [place] [address] Performed By: #### 2 4356-8 ####[facility] [id number] [place] [address] [place] Orthopedic Visit Reporton Orthopedic Visit Report [facility] [address] [place] [address] OFFICE VISIT Date of Service: 04/21/25 MR#: [id number] Acct: [id number] Name: SHEILA CROWE Rep #: [id number] : 1980 Provider: Dr. Mahad light MD Age/Sex: 44/F Location: [facility].NEETU Status: Signed Intake Vital Signs [...] Did do 16 PT visits through the [facility]. Hurts anteriorly. worse to lift or in [...] physical therapy with 16 visits through the [facility] as well as a cortisone in [...] blood flow before exercises. 4. Anti-Inflammatory Medications: Xodp-gqn-csqnqzr medications like ibuprofen or naproxen can help reduce pain and inflammation in the tendon. 5. Corticosteroid Injections: If the pain is more severe, a steroid injection can reduce inflammation in the shoulder and provide relief for a longer (more content not included)... Normal [facility] Shoulder min 2 Viewson 04-21 Shoulder min 2 Views [facility] [address] [place] [address] Shoulder min 2 Views MR#: [id number] Acct: [id number] Name: SHEILA CROWE Rep #: [id number] : 1980 F 44 From: José Manuel Villalta PCP: Dr. Torres Yao MD Status: DEP AMB Study: Shoulder min 2 Views Date of Exam: 04/21/25 Exam# [id number] Ordering Dr: Mahad Saleh MD PROCEDURE: SHOULDER [...] fracture or dislocation is seen. Reading Location: [place] [address] CC: Dr. Mahad Saleh MD; Dr. Torres Yao MD In Shop Service Technician: Signed Normal [facility] Tele[facility] (AMEYA) SHEILA CROWE ([id number]) 1980 F Date Time Provider Department 04/15/25 [...] PM Signed Referral fax confirmation showing at 2893. 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 [Z79.899]09/24/2018 Sacroiliitis (HCC) [M46.1] 03/02/2022 Subacromial bursitis of both shoulders [M75.51,*11/30/2022 Primary osteoarthritis of both knees [M17.0] 11/30/2022 History of diabetes mellitus [Z86.39] 10/13/2023 Neuropathy involving both lower extremities [G5*02/07/2024 Acute midline low back pain without sciatica [M*06/03/2024 Bilateral shoulder region arthritis [M19.011, M*11/25/2024 Encounter Status:Closed by BERTHA FLYNN on 04/15/25 [facility] Sp 03-14-2025 CNOV Office Visit (FAMPWS ) CROWESHEILA ([id number]) 1980 F Date Time Provider Department 03/14/25 [...] due to psychiatrist's maternity leave and upcoming detention next fall. - Next psychology appointment in [...] 120 days. ketoconazole (NIZORAL) 2 % shampoo bt-mp-ebjr-FA-Ca carb-vit K (WOMEN'S MULTIVITAMIN) 18 mg-400 mcg- [...] diclofenac sodium-mentho (more content not included)... Normal [facility] SCREENING W TOMOon 03-14 [facility] SCREENING W CHANA * * *Final Report* * * DATE OF EXAM: Mar 14 2025 12:58PM WRW 0582 - [facility] SCREENING W CHANA / PROCEDURE REASON: Encounter for screening mammogram for breast cancer * * * * Physician Interpretation * * * * RESULT: [place] [address] [place] [address] #[id number] - [facility] SCREENING W CHANA HISTORY: 44 year-old patient [...] tissue. Interpreting Radiologist: Criselda Sanches M.D. FACR, [facility] Electronically signed on: 03/17/2025 In Shop Service Technician: ADRIAN Transcribe Date/Time: Mar 14 2025 12:49P Dictated by: CRISELDA SANCHES MD This examination was interpreted and the report reviewed and electronically signed by: CRISELDA SANCHES MD on Mar 17 2025 3:28PM EST [id number] Normal [facility] CNOVon 02-14-2025 CNOV Office Visit ([place] ) SHEILA CROWE ([id number]) 1980 F Date Time Provider Department 02/14/25 [...] PM Signed This note was created using [employer]. Subjective Sheila Crowe is a 44 year [...] daily Benefit: helps Physical Therapy: 01/2025 - [place] [facility] Last UDS: 09/28/23 - not currently [...] EXPOSED ROOT (ELEVATION AND/OR FORCEPS REMOVAL) 1995 [place] teeth TONSILLECTOMY PRIMARY/SECONDARY Tonsillectomy Social History Tobacco [...] normal gai (more content not included)... Normal [facility] CNTHERAPYon 02-04-2025 CNTHERAPY OT/PT/Speech Visit (PTWS) SHEILA CROWE ([id number]) 1980 F Date Time Provider Department 02/04/25 3:45 PM JOVAN PAIGE PTWS Date Time Provider Department Center 02/04/2025 3:45 PM [id number], SEAN PTWS Irwin Rodriguez Reason for Visit: PT [...] - ketoconazole (NIZORAL) 2 % shampoo - ti-vy-ttcj-FA-Ca carb-vit K (WOMEN'S MULTIVITAMIN) 18 mg-400 mcg- [...] 400 mg by mouth once daily. Normal [facility] CNTHERAPYon 01-17-2025 CNTHERAPY OT/PT/Speech Visit (PTWS) SHEILA CROWE ([id number]) 1980 F Date Time Provider Department 01/17/25 1:00 PM JOANNA REY PTWS Date Time Provider Department Center 01/17/2025 1:00 PM [id number] REY PTWS Irwin Rodriguez Reason for Visit: Physical [...] - ketoconazole (NIZORAL) 2 % shampoo - xo-hp-wvhu-FA-Ca carb-vit K (WOMEN'S MULTIVITAMIN) 18 mg-400 mcg- [...] 400 mg by mouth once daily. Normal [facility] CNTHERAPYon 01-09-2025 CNTHERAPY OT/PT/Speech Visit (PTWS) SHEILA CROWE ([id number]) 1980 F Date Time Provider Department 01/09/25 11:00 AM RACHEL WHITESIDE PTWS Date Time Provider Department Center 01/09/2025 11:00 AM [id number], MARIAH PTRENO Rodriguez Reason for Visit: Physical [...] - ketoconazole (NIZORAL) 2 % shampoo - jh-ye-zvtr-FA-Ca carb-vit K (WOMEN'S MULTIVITAMIN) 18 mg-400 mcg- [...] 400 mg by mouth once daily. Normal [facility] CNTHERAPYon 01-06-2025 CNTHERAPY OT/PT/Speech Visit (PTWS) SHEILA ([id number]) 1980 F Date Time Provider Department 01/06/25 12:00 PM JOANNA REY PTWS Date Time Provider Department Center 01/06/2025 12:00 PM [id number] REY PTWS [place] Reason for Visit: PT Progress Note [...] - ketoconazole (NIZORAL) 2 % shampoo - vn-gl-rcmo-FA-Ca carb-vit K (WOMEN'S MULTIVITAMIN) 18 mg-400 mcg- [...] 400 mg by mouth once daily. Normal [facility] CNTHERAPYon 01-03-2025 CNTHERAPY OT/PT/Speech Visit (PTWS) SHEILA CROWE ([id number]) 1980 F Date Time Provider Department 01/03/25 11:00 AM RACHEL WHITESIDE PTWS Date Time Provider Department [place] 01/03/2025 11:00 AM [id number], MARIAH PTWS Irwin Rodriguez Reason for Visit: [...] - ketoconazole (NIZORAL) 2 % shampoo - ni-vg-ifpq-FA-Ca carb-vit K (WOMEN'S MULTIVITAMIN) 18 mg-400 mcg- [...] 400 mg by mouth once daily. Normal [facility] CNTHERAPYon 12-31-2024 CNTHERAPY OT/PT/Speech Visit (PTWS) SHEILA CROWE ([id number]) 1980 F Date Time Provider Department 12/31/24 11:45 AM RACHEL WHITESIDE PTRENO Date Time Provider Department Center 12/31/2024 11:45 AM [id number], MARIAH PTRENO Rodriguez Reason for Visit: Physical [...] - ketoconazole (NIZORAL) 2 % shampoo - fv-nd-wfab-FA-Ca carb-vit K (WOMEN'S MULTIVITAMIN) 18 mg-400 mcg- [...] 400 mg by mouth once daily. Normal [facility] CNTHERAPYon 12-24-2024 CNTHERAPY OT/PT/Speech Visit (PTWS) SHEILA CROWE ([id number]) 1980 F Date Time Provider Department 12/24/24 2:45 PM RACHEL WHITESIDE PTWS Date Time Provider Department Center 12/24/2024 2:45 PM [id number], MARIAH PTWS Irwin Rodriguez Reason for Visit: [...] - ketoconazole (NIZORAL) 2 % shampoo - qv-jq-nkdl-FA-Ca carb-vit K (WOMEN'S MULTIVITAMIN) 18 mg-400 mcg- [...] 400 mg by mouth once daily. Normal [facility] CNTHERAPYon 12-11-2024 CNTHERAPY OT/PT/Speech Visit (PTWS) SHEILA CROWE ([id number]) 1980 F Date Time Provider Department 12/11/24 2:45 PM RACHEL WHITESIDE PTRENO Date Time Provider Department Center 12/11/2024 2:45 PM [id number], MARIAH PTRENO Rodriguez Reason for Visit: Physical [...] - ketoconazole (NIZORAL) 2 % shampoo - fs-yf-zjgd-FA-Ca carb-vit K (WOMEN'S MULTIVITAMIN) 18 mg-400 mcg- [...] Take 400 mg by mouth once daily. Interior Surface Insulation Worker: Addendum Therapy (PT/OT/Speech/Resp) ID: [id number] 12/11/2024 3:19 PM Author: RACHEL WHITESIDE Signed by RACHEL WHITESIDE INTERNET DESIGNER on 12/11/2024 at 3:20 PM * * * This document replaces document [id number] * * * Document text: Program_ID:[id number] Access Code: NNEMEMQR URL: [email or web address] Date: 12-11-2024 Prepared By: Rachel Whiteside Program [...] 2 sets - 10 reps -- Normal [facility] THERAPY NTon 12-11-2024 THERAPY NT HNO ID: [id number] Author: RACHEL WHITESIDE PTA Service: ? Author Type: High School Science Teacher Type: Therapy (PT/OT/Speech/Resp) Filed: 12/11/2024 15:20 Note Text: Program_ID:[id number] Access Code: [email or web address] URL: [email or web address]/ Date: 12-11-2024 Prepared By: Rachel Whiteside Program [...] - 2 sets - 10 reps Normal [facility] CNTHERAPYon 12-09-2024 CNTHERAPY OT/PT/Speech Visit (PTWS) SHEILA CROWE ([id number]) 1980 F Date Time Provider Department 12/09/24 11:00 AM RACHEL WHITESIDE PTRENO Date Time Provider Department Center 12/09/2024 11:00 AM [id number], MARIAH PTRENO Rodriguez Reason for Visit: Physical [...] - ketoconazole (NIZORAL) 2 % shampoo - pt-jf-jvez-FA-Ca carb-vit K (WOMEN'S MULTIVITAMIN) 18 mg-400 mcg- [...] Take 400 mg by mouth once daily. Interior Surface Insulation Worker: Therapy (PT/OT/Speech/Resp) ID: [id number] 12/09/2024 11:26 AM Author: RACHEL WHITESIDE Signed by RACHEL WHITESIDE INTERNET DESIGNER on 12/09/2024 at 11:27 AM Document text: Program_ID:[id number] Access Code: NNEMEMQR URL: [email or web address]/ Date: 12-09-2024 Prepared By: Rachel Whiteside Program [...] 1-2 sets - 10 reps -- Normal [facility] THERAPY NTon 12-09-2024 THERAPY NT HNO ID: [id number] Author: RACHEL WHITESIDE PTA Service: ? Author Type: High School Science Teacher Type: Therapy (PT/OT/Speech/Resp) Filed: 12/09/2024 11:27 Note Text: Program_ID:[id number] Access Code: NNEMEMQR URL: https://[facility] [employer]/ Date: 12-09-2024 Prepared By: Rachel Whiteside Program [...] - 1-2 sets - 10 reps Normal [facility] [id number] 11-25-2024 [id number] HNO ID: [id number] Author: JOANNA REY PT Service: ? Author Type: Physical Therapist Type: [id number] Filed: 11/25/2024 19:37 Note Text: [facility] Physical Therapy Plan of Care Certification Patient Name: Sheila Crowe : 1980 [facility] #: [id number] Date: 11/25/2024 To: Freeman Sarabia PA-C From [...] Goals for Episode of Care: established 11/25/24 [place] in home exercise program. Patient will decrease [...] Planned: 16 Planned Treatment Interventions: Therapeutic exercise (16005), Neuromuscular re-education (70295), Manual therapy (05920), Self-long-term management (23412), Patient/Family/Caregiv er Education PLAN FOR NEXT VISIT: [...] reviewed the treatment plan for Sheila Crowe, [facility]# [id number] for the period of 11/25/24 -- 01/23/25, established on 11/25/2024. Signature certifies the need for therapy services. Normal [facility] CNTHERAPYon 11-25-2024 CNTHERAPY OT/PT/Speech Visit (PTWS) CROWESHEILA WANG Servando ([id number]) 1980 F Date Time Provider Department 11/25/24 5:15 PM JOANNA REY PTWS Date Time Provider Department Center 11/25/2024 5:15 PM [id number] REY PTWS Irwin Rodriguez Reason for Visit: PT Eval [747] [...] - ketoconazole (NIZORAL) 2 % shampoo - ds-ui-pesn-FA-Ca carb-vit K (WOMEN'S MULTIVITAMIN) 18 mg-400 mcg- [...] Take 400 mg by mouth once daily. Interior Surface Insulation Worker: Therapy (PT/OT/Speech/Resp) ID: [id number] 11/25/2024 6:05 PM Author: JOANNA REY Signed by JOANNA REY PT on 11/25/2024 at 6:05 PM Document text: Program_ID:[id number] Access Code: NNEMEMQR URL: https://ely [employer]/ Date: 11-25-2024 Prepared By: Salvador Hart Program [...] - 10 reps -- Letter Text Normal [facility] THERAPY NTon 11-25-2024 THERAPY NT HNO ID: [id number] Author: JOANNA REY PT Service: ? Author Type: Physical Therapist Type: Therapy (PT/OT/Speech/Resp) Filed: 11/25/2024 18:05 Note Text: Program_ID:[id number] Access Code: NNEMEMQR URL: https://[email or web address] [employer]/ Date: 11-25-2024 Prepared By: Salvador Hart Program [...] - 2 sets - 10 reps Normal [facility] CNOVon 11-22-2024 CNOV Office Visit (PAMMJK ) CROWESHEILA L ([id number]) 1980 F Date Time Provider Department 11/22/24 [...] AM Signed This note was created using [employer]. Subjective Sheila Crowe is a 44 year [...] daily Benefit: helps Physical Therapy: July - PT Last UDS: 09/28/23 - not using [...] EXPOSED ROOT (ELEVATION AND/OR FORCEPS REMOVAL) 1995 [place] teeth TONSILLECTOMY PRIMARY/SECONDARY Tonsillectomy Social History Tobacco [...] TABLET 3. Subacromia (more content not included)... 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 [Z79.899]09/24/2018 Sacroiliitis (HCC) [M46.1] 03/02/2022 Subacromial bursitis of both shoulders [M75.51,*11/30/2022 Primary osteoarthritis of both knees [M17.0] 11/30/2022 History of diabetes mellitus [Z86.39] 10/13/2023 Neuropathy involving both lower extremities [G5*02/07/2024 Acute midline low back pain without sciatica [M*06/03/2024 Encounter Status:Closed by OG PASTOR on 09/24/24 Normal [facility] ALBUMIN/CREATININE RATIO, UR INEon 09-23-2024 Albumin DL <= 20 mg/L (U) [Mass/Vol] mg/dL Normal [facility] Comment on above: Order Comment: Speci men Type: URINE SPECIMENOrdering Facility: [facility] Address: [address] [place] [address] Performed By: #### U ACR ####[facility] LABCLIA [id number] [place] [address] [place] Albumin/Creatinine (U) [Mass ratio] Normal [facility] Comment on above: Order Comment: Speci men Type: URINE SPECIMENOrdering Facility: [facility] Address: [address] [place] [address] Result Comment: Not calculated Adult Male and Female Nephrotic Criteria: <30 mg/g is considered normal to mildly increased 30-300 mg/g is considered moderately increased >300 mg/g is considered severely increased KDIGO. (2013). KDIGO 2012 Clinical Practice Guideline for the Evaluation and Management of Chronic Kidney Disease. Official Journal of the International Society of Nephrology, 3(1), 1-150. Performed By: #### U ACR ####[facility] LABCLIA [id number] [place] [address] [place] Creatinine (U) [Mass/Vol] 18.0 mg/dL Low 20.0-300.0 [facility] Comment on above: Order Comment: Speci men Type: URINE SPECIMENOrdering Facility: [facility] Address: [address] [place] [address] Performed By: #### U ACR ####[facility] LABCLIA [id number] [place] [address] [place] CBC W Auto Differential pane l (Bld)on 09-23-2024 Basophils (Bld) [#/Vol] 0.03 10*3/uL Normal <0.11 [facility] Comment on above: Order Comment: Speci men Type: BLOOD SPECIMENOrdering Facility: [facility] Address: [address] [place] [address] Performed By: #### 5 7021-8 ####[facility] LABCLIA [id number] [place] [address] [place] Basophils/100 WBC (Bld) 0.5 % Normal [facility] Comment on above: Order Comment: Speci men Type: BLOOD SPECIMENOrdering Facility: [facility] Address: [address] [place] [address] Performed By: #### 5 7021-8 ####[facility] LABCLIA [id number] [place] [address] [place] Differential cell count method Nom (Bld) Auto Normal [facility] Comment on above: Order Comment: Speci men Type: BLOOD SPECIMENOrdering Facility: [facility] Address: [address] [place] [address] Performed By: #### 5 7021-8 ####[facility] LABCLIA [id number] [place] [address] [place] Eosinophils (Bld) [#/Vol] 0.04 10*3/uL Normal <0.46 [facility] Comment on above: Order Comment: Speci men Type: BLOOD SPECIMENOrdering Facility: [facility] Address: [address] [place] [address] Performed By: #### 5 7021-8 ####[facility] LABCLIA [id number] [place] [address] [place] Eosinophils/100 WBC (Bld) 0.6 % Normal [facility] Comment on above: Order Comment: Speci men Type: BLOOD SPECIMENOrdering Facility: [facility] Address: [address] [place] [address] Performed By: #### 5 7021-8 ####[facility] LABCLIA [id number] [place] [address] [place] Erythrocyte distribution width (RBC) [Ratio] 12.5 % Normal 11.5-15.0 [facility] Comment on above: Order Comment: Speci men Type: BLOOD SPECIMENOrdering Facility: [facility] Address: [address] [place] [address] Performed By: #### 5 7021-8 ####[facility] LABIA [id number] [place] [address] [place] Hematocrit (Bld) [Volume fraction] 42.4 % Normal 36.0-46.0 [facility] Comment on above: Order Comment: Speci men Type: BLOOD SPECIMENOrdering Facility: [facility] Address: [address] [place] [address] Performed By: #### 5 7021-8 ####[facility] LABIA [id number] [place] [address] [place] Hemoglobin (Bld) [Mass/Vol] 13.9 g/dL Normal 11.5-15.5 [facility] Comment on above: Order Comment: Speci men Type: BLOOD SPECIMENOrdering Facility: [facility] Address: [address] [place] [address] Performed By: #### 5 7021-8 ####[facility] LABIA [id number] [place] [address] [place] Immature granulocytes (Bld) [#/Vol] 10*3/uL Normal <0.10 [facility] Comment on above: Order Comment: Speci men Type: BLOOD SPECIMENOrdering Facility: [facility] Address: [address] [place] [address] Performed By: #### 5 7021-8 ####[facility] [facility] LABIA [id number] [place] [address] [place] Immature granulocytes/100 WBC (Bld) 0.3 % Normal [facility] Comment on above: Order Comment: Speci men Type: BLOOD SPECIMENOrdering Facility: [facility] Address: [address] [place] [address] Performed By: #### 5 7021-8 ####[facility] LABCLIA [id number] [place] [address] [place] Lymphocytes (Bld) [#/Vol] 2.31 10*3/uL Normal 1.00-4.00 [facility] Comment on above: Order Comment: Speci men Type: BLOOD SPECIMENOrdering Facility: [facility] Address: [address] [place] [address] Performed By: #### 5 7021-8 ####[facility] LABIA [id number] [place] [address] [place] Lymphocytes/100 WBC (Bld) 35.4 % Normal [facility] Comment on above: Order Comment: Speci men Type: BLOOD SPECIMENOrdering Facility: [facility] Address: [address] [place] [address] Performed By: #### 5 7021-8 ####[facility] LABIA [id number] [place] [address] [place] MCH (RBC) [Entitic mass] 30.6 pg Normal 26.0-34.0 [facility] Comment on above: Order Comment: Speci men Type: BLOOD SPECIMENOrdering Facility: [facility] Address: [address] [place] [address] Performed By: #### 5 7021-8 ####[facility] LABIA [id number] [place] [address] [place] MCHC (RBC) [Mass/Vol] 32.8 g/dL Normal 30.5-36.0 [facility] Comment on above: Order Comment: Speci men Type: BLOOD SPECIMENOrdering Facility: [facility] Address: [address] [place] [address] Performed By: #### 5 7021-8 ####[facility] LABCLIA [id number] [place] [address] [place] MCV (RBC) [Entitic vol] 93.4 fL Normal 80.0-100.0 [facility] Comment on above: Order Comment: Speci men Type: BLOOD SPECIMENOrdering Facility: [facility] Address: [address] [place] [address] Performed By: #### 5 7021-8 ####[facility] LABIA [id number] [place] [address] [place] Monocytes (Bld) [#/Vol] 0.28 10*3/uL Normal <0.87 [facility] Comment on above: Order Comment: Speci men Type: BLOOD SPECIMENOrdering Facility: [facility] Address: [address] [place] [address] Performed By: #### 5 7021-8 ####[facility] LABIA [id number] [place] [address] [place] Monocytes/100 WBC (Bld) 4.3 % Normal [facility] Comment on above: Order Comment: Speci men Type: BLOOD SPECIMENOrdering Facility: [facility] Address: [address] [place] [address] Performed By: #### 5 7021-8 ####[facility] LABIA [id number] [place] [address] [place] Neutrophils (Bld) [#/Vol] 3.85 10*3/uL Normal 1.45-7.50 [facility] Comment on above: Order Comment: Speci men Type: BLOOD SPECIMENOrdering Facility: [facility] Address: [address] [place] [address] Performed By: #### 5 7021-8 ####[facility] LABIA [id number] [place] [address] [place] Neutrophils/100 WBC (Bld) 58.9 % Normal [facility] Comment on above: Order Comment: Speci men Type: BLOOD SPECIMENOrdering Facility: [facility] Address: [address] [place] [address] Performed By: #### 5 7021-8 ####[facility] LABIA [id number] [place] [address] [place] Nucleated RBC (Bld) [#/Vol] 10*3/uL Normal <0.01 [facility] Comment on above: Order Comment: Speci men Type: BLOOD SPECIMENOrdering Facility: [facility] Address: [address] [place] [address] Performed By: #### 5 7021-8 ####[facility] LABIA [id number] [place] [address] [place] Nucleated RBC/100 WBC (Bld) [Ratio] 0.0 /100 WBC Normal [facility] Comment on above: Order Comment: Speci men Type: BLOOD SPECIMENOrdering Facility: [facility] Address: [address] [place] [address] Performed By: #### 5 7021-8 ####[facility] LABIA [id number] [place] [address] [place] Platelet mean volume (Bld) [Entitic vol] 12.2 fL Normal 9.0-12.7 [facility] Comment on above: Order Comment: Speci men Type: BLOOD SPECIMENOrdering Facility: [facility] Address: [address] [place] [address] Performed By: #### 5 7021-8 ####[facility] LABIA [id number] [place] [address] [place] Platelets (Bld) [#/Vol] 163 10*3/uL Normal 150-400 [facility] Comment on above: Order Comment: Speci men Type: BLOOD SPECIMENOrdering Facility: [facility] Address: [address] [place] [address] Performed By: #### 5 7021-8 ####[facility] LABCLIA [id number] [address] [address] [place] RBC (Bld) [#/Vol] 4.54 10*6/uL Normal 3.90-5.20 [facility] Comment on above: Order Comment: Speci men Type: BLOOD SPECIMENOrdering Facility: [facility] Address: [address] [place] [address] Performed By: #### 5 7021-8 ####[facility] LABIA [id number] [address] [address] [place] WBC (Bld) [#/Vol] 6.53 10*3/uL Normal 3.70-11.00 [facility] Comment on above: Order Comment: Speci men Type: BLOOD SPECIMENOrdering Facility: [facility] Address: [address] [place] [address] Performed By: #### 5 7021-8 ####[facility] [id number] [place] [id number] [place] Comprehensive metabolic 2000 panelon 09-23-2024 Albumin [Mass/Vol] 4.6 g/dL Normal 3.9-4.9 [facility] Comment on above: Order Comment: Speci men Type: BLOOD SPECIMENOrdering Facility: [facility] Address: [address] [place], [place] [address] Performed By: #### 1 9123-9, 3016-3, 72250-1, LIPNF ####[facility] [id number] [place] [id number] [place] ALP [Catalytic activity/Vol] 59 U/L Normal 34-123 [facility] Comment on above: Order Comment: Speci men Type: BLOOD SPECIMENOrdering Facility: [facility] Address: [address] [place] [address] Performed By: #### 1 9123-9, 3016-3, 93312-6, LIPNF ####[facility] LABCLIA [id number] [address] [address] [place] ALT [Catalytic activity/Vol] 18 U/L Normal 7-38 [facility] Comment on above: Order Comment: Speci men Type: BLOOD SPECIMENOrdering Facility: [facility] Address: [address] [place] [address] Performed By: #### 1 9123-9, 3015-3, 54786-7, LIPNF ####[facility] LABCLIA [id number] [address] [address] [place] Anion gap [Moles/Vol] 11 mmol/L Normal 8-15 [facility] Comment on above: Order Comment: Speci men Type: BLOOD SPECIMENOrdering Facility: [facility] Address: [address] [place] [address] Performed By: #### 1 9123-9, 3015-3, 89270-7, LIPNF ####[facility] LABIA [id number] [place] [id number] [place] AST [Catalytic activity/Vol] 17 U/L Normal 13-35 [facility] Comment on above: Order Comment: Speci men Type: BLOOD SPECIMENOrdering Facility: [facility] Address: [address] [place] [address] Performed By: #### 1 9123-9, 3015-3, 04314-5, LIPNF ####[facility] LABCLIA [id number] [address] [address] [place] Bilirubin [Mass/Vol] 0.2 mg/dL Normal 0.2-1.3 [facility] Comment on above: Order Comment: Speci men Type: BLOOD SPECIMENOrdering Facility: [facility] Address: [address] [place] [address] Performed By: #### 1 9123-9, 6-3, 31051-7, LIPNF ####[facility] LABCLIA [id number] [address] [address] [place] Calcium [Mass/Vol] 9.3 mg/dL Normal 8.5-10.2 [facility] Comment on above: Order Comment: Speci men Type: BLOOD SPECIMENOrdering Facility: [facility] Address: [address] [place] [address] Performed By: #### 1 9123-9, 3016-3, 05036-8, LIPNF ####[facility] LABCLIA [id number] [place] [address] [place] Chloride [Moles/Vol] 106 mmol/L Normal 98-107 [facility] Comment on above: Order Comment: Speci men Type: BLOOD SPECIMENOrdering Facility: [facility] Address: [address] [place] [address] Performed By: #### 1 9123-9, 3015-3, 93562-4, LIPNF ####[facility] LABCLIA [id number] [place] [address] [place] CO2 [Moles/Vol] 21 mmol/L Low 22-30 [facility] Comment on above: Order Comment: Speci men Type: BLOOD SPECIMENOrdering Facility: [facility] Address: [address] [place] [address] Performed By: #### 1 9123-9, 3015-3, 00632-5, LIPNF ####[facility] LABCLIA [id number] [place] [id number] [place] Creatinine [Mass/Vol] 0.78 mg/dL Normal 0.58-0.96 [facility] Comment on above: Order Comment: Speci men Type: BLOOD SPECIMENOrdering Facility: [facility] Address: [address] [place] [address] Performed By: #### 1 9123-9, 3016-3, 37661-9, LIPNF ####[facility] LABCLIA [id number] [place] [address] [place] Creatinine and Glomerular filtration rate.predicted panel (S/P/Bld) 96 mL/min/1.73m??? Normal >=60 [facility] Comment on above: Order Comment: Pérez zhu Type: BLOOD SPECIMENOrdering Facility: [facility] Address: [address] [place] [address] Result Comment: Lydia mated Glomerular Filtration Rate [...] GFR. Performed By: #### 1 9123-9, 3016-3, 19350-2, LIPNF ####[facility] [id number] [place] [address] [place] Glucose [Mass/Vol] 92 mg/dL Normal 74-99 [facility] Comment on above: Order Comment: Pérez zhu Type: BLOOD SPECIMENOrdering Facility: [facility] Address: [address] [place] [address] Result Comment: The [place] Diabetes Association (ADA) provides guidance for cutoff [...] Standards of Medical Care in Diabetes 2016, [place] Diabetes Association. Diabetes Care. 2016.39(Suppl 1). Performed By: #### 1 9123-9, 3016-3, 46804-6, LIPNF ####[facility] LABCLIA [id number] [address] [address] [place] Potassium [Moles/Vol] 3.9 mmol/L Normal 3.7-5.1 [facility] Comment on above: Order Comment: Speci men Type: BLOOD SPECIMENOrdering Facility: [facility] Address: [address] [place] [address] Performed By: #### 1 9123-9, 6-3, 60617-0, LIPNF ####[facility] LABCLIA [id number] [address] [address] [place] Protein [Mass/Vol] 7.5 g/dL Normal 6.3-8.0 [facility] Comment on above: Order Comment: Speci men Type: BLOOD SPECIMENOrdering Facility: [facility] Address: [address] [place] [address] Performed By: #### 1 9123-9, 3015-3, 43079-5, LIPNF ####[facility] LABCLIA [id number] [place] [address] [place] Sodium [Moles/Vol] 138 mmol/L Normal 136-144 [facility] Comment on above: Order Comment: Speci men Type: BLOOD SPECIMENOrdering Facility: [facility] Address: [address] [place] [address] Performed By: #### 1 9123-9, 3015-3, 82829-6, LIPNF ####[facility] LABCLIA [id number] [address] [address] [place] Urea nitrogen [Mass/Vol] 18 mg/dL Normal 7-21 [facility] Comment on above: Order Comment: Speci men Type: BLOOD SPECIMENOrdering Facility: [facility] Address: [address] [place] [address] Performed By: #### 1 9123-9, 6-3, 39873-9, LIPNF ####[facility] LABCLIA [id number] [address] [place] HbA1c (Bld)on 09-23-2024 Average glucose Estimated from glycated hemoglobin (Bld) [Mass/Vol] 80 mg/dL Normal [facility] Comment on above: Order Comment: Pérez zhu Type: BLOOD SPECIMENOrdering Facility: [facility] Address: [address] [place] [address] Result Comment: eAG: (Estimated average glucose) is a calculated value from HgbA1c and is factory representative of the average blood glucose level in the last 2-3 month period. Performed By: #### 5 5454-3 ####[facility] LABCLIA [id number] [address] OF [facility] HbA1c (Bld) [Mass fraction] 4.4 % Normal 4.3-5.6 [facility] Comment on above: Order Comment: Pérez zhu Type: BLOOD SPECIMENOrdering Facility: [facility] Address: [address] [place] [address] Result Comment: [place] Diabetes Association guidelines indicate that patients with HgbA1c in the range 5.7-6.4% are at increased risk for development of diabetes, and intervention by lifestyle modification may be beneficial. HgbA1c greater or equal to 6.5% is considered diagnostic of diabetes. Performed By: #### 5 5454-3 ####[facility] LABCLIA [id number] [address] [place] LIPID PANEL, NONFASTINGon Cholesterol [Mass/Vol] 190 mg/dL Normal <200 [facility] Comment on above: Order Comment: Pérez zhu Type: BLOOD SPECIMENOrdering Facility: [facility] Address: [address] [place] [address] Result Comment: <200 mg/dL, Desirable 200-239 mg/dL, Borderline high >239 mg/dL, High Performed By: #### 1 9123-9, 3016-3, 23698-1, LIPNF ####[facility] LABCLIA [id number] [address] [place] HDL CHOLESTEROL, NF 53 mg/dL Normal >39 [facility] Comment on above: Order Comment: Speci men Type: BLOOD SPECIMENOrdering Facility: [facility] Address: [address] [place] [address] Result Comment: 40-5 9 mg/dL, Acceptable >59 mg/dL, High: Negative risk factor for coronary heart disease <40 mg/dL, Low: Positive risk factor for coronary heart disease Performed By: #### 1 9123-9, 3016-3, 64825-5, LIPNF ####[facility] LABCLIA [id number] [address] OF [facility] LDL CHOLESTEROL, NF 121 mg/dL High <100 [facility] Comment on above: Order Comment: Pérez marko Type: BLOOD SPECIMENOrdering Facility: [facility] Address: [address] [place] [address] Result Comment: <100 mg/dL, Optimal 100-129 mg/dL, Near optimal/above optimal 130-159 mg/dL, Borderline high 160-189 mg/dL, High >189 mg/dL, Very high Secondary prevention optimal LDL Cholesterol levels are recommended to be < 70 mg/dL Performed By: #### 1 9123-9, 6-3, 90913-7, LIPNF ####[facility] LABCLIA [id number] [address] [place] LDL/HDL RATIO, NF 2.28 mg/dL Normal <2.54 [facility] Comment on above: Order Comment: Leonori men Type: BLOOD SPECIMENOrdering Facility: [facility] Address: [facility] [place] [address] Result Comment: Henri horner: 1. National Cholesterol Education Program ATP III Guideline At-A-Glance Quick Desk Reference: National Heart, Lung, and Blood Snyder. National Institutes of Health. 2001: NIH Publication No. 01-3305. 2. An International Atherosclerosis Society position paper: global recommendations for the management of dyslipidemia: executive summary, Atherosclerosis. 2014: 232(2):410-413. Performed By: #### 1 9123-9, 6-3, 47356-4, LIPNF ####[facility] LABCLIA [id number] [place] [address] [place] NON HDL CHOL, NF 137 mg/dL High <130 [facility] Comment on above: Order Comment: Speci men Type: BLOOD SPECIMENOrdering Facility: [facility] Address: [address] [place] [address] Result Comment: <130 mg/dL, Optimal 130-159 mg/dL, Near optimal/above optimal 160-189 mg/dL, Borderline high 190-219 mg/dL, High >219 mg/dL, Very high Secondary prevention optimal non HDL Cholesterol levels are recommended to be <100 mg/dL Performed By: #### 1 9123-9, 3015-3, 14626-5, LIPNF ####[facility] LABCLIA [id number] [place] [address] [place] T CHOL/HDL RATIO NF 3.58 mg/dL Normal <5.10 [facility] Comment on above: Order Comment: Speci men Type: BLOOD SPECIMENOrdering Facility: [facility] Address: [address] [place] [address] Performed By: #### 1 9123-9, 3015-3, 42915-6, LIPNF ####[facility] LABCLIA [id number] [place] [address] [place] TRIGLYCERIDES, NF 81 mg/dL Normal <150 [facility] Comment on above: Order Comment: Speci men Type: BLOOD SPECIMENOrdering Facility: [facility] Address: [address] [place] [address] Result Comment: <150 mg/dL, Normal 150-199 mg/dL, Borderline high 200-499 mg/dL, High >499 mg/dL, Very high Performed By: #### 1 9123-9, 6-3, 75602-9, LIPNF ####[facility] LABCLIA [id number] [place] [address] [place] VLDL CHOLESTEROL, NF 16 mg/dL Normal <30 [facility] Comment on above: Order Comment: Speci men Type: BLOOD SPECIMENOrdering Facility: [facility] Address: [address] [place] [address] Performed By: #### 1 9123-9, 3016-3, 42299-8, LIPNF ####[facility] LABCLIA [id number] [place] [address] [place] Magnesium SerPl-mCncon 09-23 Magnesium [Mass/Vol] 2.2 mg/dL Normal 1.7-2.3 [facility] Comment on above: Order Comment: Speci men Type: BLOOD SPECIMENOrdering Facility: [facility] Address: [address] [place] [address] Performed By: #### 1 9123-9, 3016-3, 88437-2, LIPNF ####[facility] LABCLIA [id number] [place] [address] [place] TSH SerPl-aCncon 09-23-2024 TSH Qn 1.470 m[IU]/L Normal 0.270-4.200 [facility] Comment on above: Order Comment: Speci men Type: BLOOD SPECIMENOrdering Facility: [facility] Address: [address] [place] [address] Result Comment: If t he patient is , TSH reference range varies by gestational period: First Trimester (weeks 9-12): 0.180-2.990 mIU/L Second Trimester: 0.110-3.980 mIU/L Third Trimester: 0.480-4.710 mIU/L Gordon Al et al. A Practical Approach for the Verifications and Determination of Site- and Trimester-Specific Reference Intervals for Thyroid Function tests in . Thyroid, 2019:29:3:412-420. Gilson Garcia, et al. 2017 Guidelines of the [place] Thyroid Association for the Diagnosis and Management of Thyroid Disease during and the . Thyroid, 2017:27:3:315-389. Performed By: #### 1 9123-9, 3016-3, 34965-9, LIPNF ####[facility] LABCLIA [id number] [facility] [address] [place] Vit B12 SerPl-mCncon 11-25-2 024 Cobalamin (Vitamin B12) [Mass/Vol] 976 pg/mL Normal 232-1245 [facility] Comment on above: Order Comment: Speci men Type: BLOOD SPECIMENOrdering Facility: [facility] Address: [address] [place] [address] Performed By: #### 2 132-9 ####[facility] LABCLIA [id number] [address] [place] OPERATIVE NOon 09-17-2024 OPERATIVE NO HNO ID: [id number] Author: ISAAC CANNON MD Service: Pain Management Author Type: Anesthesiologist Type: Operative Report Filed: 09/17/2024 13:25 Note Text: Summary: B Subacromial bursa inj PATIENT: Sheila Servando Crowe SURGEON: Primary: Isaac Cannon MD : 1980 DATE OF SURGERY: September 17, 2024 PRE-OP Diagnosis: Subacromial bursitis of both shoulders [M75.51, M75.52] POST-OP Diagnosis: Same Procedure: Procedure(s): ARTHROCENTESIS,ASPIRAT ION AND/OR INJECTION,MAJOR JOINT OR BURSA W/O US GUIDANCE (Subacromial bursas) Anesthesia Type: Local The following procedure was performed in the office today: Shoulder (subacromial bursa injection with ultrasound) (08487-74, U/S) Laterality: Bilateral Approach: anterior Injectate: [1 [...] ordering physician as planned. Isaac Cannon MD [facility] 09-12-2024 [facility] Office Visit ([facility] ) SHEILA CROWE ([id number]) 1980 F Date Time Provider Department 09/12/24 10:00 AM [facility] During your visit today, we recorded the following information about you: Pulse Respiration Blood pressure Weight 76/minute 16/minute 134/78 82.7 kg Ellen Rene APRN.RUFFLING MACHINE OPERATOR 09/12/2024 10:36 AM Signed This is a [...] EXPOSED ROOT (ELEVATION AND/OR FORCEPS REMOVAL) 1995 [place] teeth TONSILLECTOMY PRIMARY/SECONDARY Tonsillectomy ALLERGIES Clindamycin, Levaquin [...] affected area. ketoconazole (NIZORAL) 2 % shampoo de-qz-ayqr-FA-Ca carb-vit K (WOMEN'S MULTIVITAMIN) 18 mg-400 mcg- [...] Vitals reviewed. (more content not included)... Normal [facility] CNOVon 08-28-2024 CNOV Office Visit ([place] ) SHEILA CROWE ([id number]) 1980 F Date Time Provider Department 08/28/24 1:30 PM FREEMAN SARABIA During your visit today, we recorded the following information about you: Pulse Respiration Blood pressure Weight 73/minute 18/minute 134/88 84.4 kg Carmel Stark RN 08/28/2024 1:19 PM Signed Lyrica am/ Meloxicam am Meds help pain Denies side effects TENS, daily-helpful 01/04/24-b/l subacromial bursa Freeman Sarabia PA-C 08/28/2024 1:37 PM Signed This note was created using Make YES! Happen. Subjective Sheila Crowe is a 43 year [...] daily Benefit: helps Physical Therapy: now - [facility] Last UDS: Last injection: 01/04/24 - [...] EXPOSED ROOT (ELEVATION AND/OR FORCEPS REMOVAL) 1995 [place] teeth TONSILLECTOMY PRIMARY/SECONDARY Tonsillectomy Social History Tobacco [...] (05/2020) 2 (more content not included)... Normal [facility] CNTHERAPYon 08-07-2024 CNTHERAPY OT/PT/Speech Visit (PTWS) SHEILA CROWE ([id number]) 1980 F Date Time Provider Department 08/07/24 11:30 AM SALVADOR HART PTWS Date Time Provider Department Center 08/07/2024 11:30 AM [id number], [place] PTWS Irwin Rodriguez Reason for Visit: [...] Date Reviewed: 06/13/2024 Reviewed by: Ellen Rene APRN.RUFFLING MACHINE OPERATOR - Fully Assessed Prescriptions as of 08/07/2024 [...] - ketoconazole (NIZORAL) 2 % shampoo - ca-mg-oloi-FA-Ca carb-vit K (WOMEN'S MULTIVITAMIN) 18 mg-400 mcg- [...] 400 mg by mouth once daily. Normal [facility] CNTHERAPYon 07-24-2024 CNTHERAPY OT/PT/Speech Visit (PTWS) SHEILA CROWE ([id number]) 1980 F Date Time Provider Department 07/24/24 11:30 AM SALVADOR HART PTWS Date Time Provider Department Center 07/24/2024 11:30 AM [id number], [place] PTWS Irwin Rodriguez Reason for Visit: [...] Date Reviewed: 06/13/2024 Reviewed by: Ellen Rene APRN.RUFFLING MACHINE OPERATOR - Fully Assessed Prescriptions as of 07/24/2024 [...] - ketoconazole (NIZORAL) 2 % shampoo - di-cc-aemd-FA-Ca carb-vit K (WOMEN'S MULTIVITAMIN) 18 mg-400 mcg- [...] Take 400 mg by mouth once daily. Interior Surface Insulation Worker: Addendum Therapy (PT/OT/Speech/Resp) ID: [id number] 07/24/2024 11:54 AM Author: SALVADOR HART Signed by SALVADOR HART PT on 07/24/2024 at 11:54 AM * * * This document replaces document [id number] * * * Document text: Program_ID:[id number] Access Code: [email or web address] URL: [email or web address] Date: 07-24-2024 Prepared By: Salvador Hart Program [...] 2 sets - 10 reps -- Normal [facility] THERAPY NTon 07-24-2024 THERAPY NT HNO ID: [id number] Author: SALVADOR HART PT Service: ? Author Type: Physical Therapist Type: Therapy (PT/OT/Speech/Resp) Filed: 07/24/2024 11:54 Note Text: Program_ID:[id number] Access Code: [email or web address] URL: [email or web address] [employer] Date: 07-24-2024 Prepared By: Salvador Hart Program [...] - 2 sets - 10 reps Normal [facility] CNTHERAPYon 07-10-2024 CNTHERAPY OT/PT/Speech Visit (PTWS) SHEILA CROWE ([id number]) 1980 F Date Time Provider Department 07/10/24 3:00 PM SALVADOR HART PTWS Date Time Provider Department [place] 07/10/2024 3:00 PM [id number], COLIN PTWS Irwin Rodriguez Reason for Visit: [...] Date Reviewed: 06/13/2024 Reviewed by: Ellen Rene APRN.RUFFLING MACHINE OPERATOR - Fully Assessed Prescriptions as of 07/10/2024 [...] - ketoconazole (NIZORAL) 2 % shampoo - oo-oo-bhxs-FA-Ca carb-vit K (WOMEN'S MULTIVITAMIN) 18 mg-400 mcg- [...] 400 mg by mouth once daily. Normal [facility] [id number] 07-04-2024 [id number] HNO ID: [id number] Author: SALVADOR HART, JESUS Service: ? Author Type: Physical Therapist Type: [id number] Filed: 07/04/2024 13:00 Note Text: [facility] Physical Therapy Plan of Care Certification Patient Name: Sheila Crowe : 1980 [facility] #: [id number] Date: 07/04/2024 To: Ellen Rene A* From [...] of Care: created on 06/03/24 through 08/18/24 [place] in home exercise program. (Currently Met) Patient [...] Patient to be seen for Therapeutic exercise (22454), Neuromuscular re-education (18075), Manual therapy (12066), Therapeutic activities (15772), Self-long-term management (62050), Body Mechanics Training, Patient/Family/Caregiv er Education PLAN FOR NEXT VISIT: Erector Strength and Stability in Standing; Can return to STM on B erectors and upper glutes as tolerated. For further details regarding this patient refer to the Physical Therapy electronically documented visit dated 07/04/2024. Provider Attestation I have reviewed the treatment plan for Sheila Crowe, CC# [id number] for the period of 07/10/24 -- 08/15/24, established on 07/04/2024. Signature certifies the need for therapy services. Normal [facility] CNTHERAPYon 07-04-2024 CNTHERAPY OT/PT/Speech Visit (PTWS) SHEILA CROWE ([id number]) 1980 F Date Time Provider Department 07/04/24 10:45 AM SALVADOR HART PTWS Date Time Provider Department Center 07/04/2024 10:45 AM [id number], COLIN PTWS Irwin Rodriguez Reason for Visit: [...] Date Reviewed: 06/13/2024 Reviewed by: Ellen Rene APRN.RUFFLING MACHINE OPERATOR - Fully Assessed Prescriptions as of 07/04/2024 [...] - ketoconazole (NIZORAL) 2 % shampoo - to-tv-dudo-FA-Ca carb-vit K (WOMEN'S MULTIVITAMIN) 18 mg-400 mcg- [...] 400 mg by mouth once daily. Normal [facility] CNTHERAPYon 06-27-2024 CNTHERAPY OT/PT/Speech Visit (PTWS) SHEILA CROWE ([id number]) 1980 F Date Time Provider Department 06/27/24 10:15 AM RACHEL WHITESIDE PTWS Date Time Provider Department Center 06/27/2024 10:15 AM [id number], MARIAH PTWS Irwin Rodriguez Reason for Visit: [...] Date Reviewed: 06/13/2024 Reviewed by: Ellen Rene APRN.RUFFLING MACHINE OPERATOR - Fully Assessed Prescriptions as of 06/27/2024 [...] - ketoconazole (NIZORAL) 2 % shampoo - md-ui-wcux-FA-Ca carb-vit K (WOMEN'S MULTIVITAMIN) 18 mg-400 mcg- [...] 400 mg by mouth once daily. Normal [facility] XR Sacrum and Coccyx 3 Views on 06-25-2024 IMPRESSION: No acute osseous abnormality. In Shop Service Technician: PSCB Transcribe Date/Time: Jun 25 2024 5:53P Dictated by : GUSTAVO PECK DO This examination was interpreted and the report reviewed and electronically signed by: GUSTAVO PECK DO on Jun 25 2024 5:55PM [facility] DIVISION OF RADIOLOGY * * *Final Report* [...] lumbar spine. DIVISION OF RADIOLOGY Provider, Camelia Spann - 06/25/2024 * * *Final Report* * [...] spine. IMPRESSION IMPRESSION: No acute osseous abnormality. In Shop Service Technician: TAINA Transcribe Date/Time: Jun 25 2024 5:53P Dictated by : GUSTAVO PECK DO This examination was interpreted and the report reviewed and electronically signed by: GUSTAVO PECK DO on Jun 25 2024 5:55PM [facility] XR Sacrum and Coccyx 3 Views Ordered By: Radha Provider [facility] SHEIL[facility] CROW[facility] ([id number]) 1980 F Date Time Provider Department 06/21/24 [facility] During your visit today, we recorded the [...] please advise and phone pt with reply: [phone] Ellen Rene APRN.RUFFLING MACHINE OPERATOR 06/21/2024 10:42 AM Signed We can certainly [...] Date Reviewed: 06/13/2024 Reviewed by: Ellen Rene APRN.RUFFLING MACHINE OPERATOR - Fully Assessed Reason for Visit: Patient concern [Other] Primary Visit Diagnosis:Coccyx pain [M53.3] Order(s):XR SACRUM/COCCYX 3V AP/LAT [5996511] Order #: [id number] FUTURE Prescriptions as of 06/21/2024 - tiZANidine [...] - ketoconazole (NIZORAL) 2 % shampoo - xk-ia-edzr-FA-Ca carb-vit K (WOMEN'S MULTIVITAMIN) 18 mg-400 mcg- [...] Osteoarthritis of knee [M17.9] 03/18/2020 04/12/2023 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 IMPRESSION: No acute osseous abnormality. In Shop Service Technician: PSCB Transcribe Date/Time: Jun 25 2024 5:53P Dictated by : GUSTAVO PECK DO This examination was interpreted and the report reviewed and electronically signed by: GUSTAVO PECK DO on Jun 25 2024 5:55PM EST [id number] Normal [facility] XR Sacrum and Coccyx 3 Views on 06-21-2024 Radiology Study observation (narrative) [facility] CNOVon 06-13-2024 CNOV Office Visit (FAMPWS ) SHEILA CROWE ([id number]) 1980 F Date Time Provider Department 06/13/24 11:20 AM [facility] During your visit today, we recorded the following information about you: Pulse Respiration Blood pressure Weight 78/minute 16/minute 122/74 84.4 kg Ellen Rene, DIGITAL PROJECT COORDINATOR.RUFFLING MACHINE OPERATOR 06/13/2024 11:39 AM Signed This is a [...] EXPOSED ROOT (ELEVATION AND/OR FORCEPS REMOVAL) Comment: [place] teeth 1995: TONSILLECTOMY PRIMARY/SECONDARY Comment: Tonsillectomy ALLERGIES [...] affected area. ketoconazole (NIZORAL) 2 % shampoo ad-tx-amfi-FA-Ca carb-vit K (WOMEN'S MULTIVITAMIN) 18 mg-400 mcg- [...] next v (more content not included)... Normal [facility] CNTHERAPYon 06-13-2024 CNTHERAPY OT/PT/Speech Visit (PTWS) SHEILA CROWE ([id number]) 1980 F Date Time Provider Department 06/13/24 2:15 PM SALVADOR HART PTWS Date Time Provider Department Center 06/13/2024 2:15 PM [id number], COLIN PTWS Irwin Rodriguez Reason for Visit: [...] Date Reviewed: 06/13/2024 Reviewed by: Ellen Rene APRN.RUFFLING MACHINE OPERATOR - Fully Assessed Prescriptions as of 07/04/2024 [...] - ketoconazole (NIZORAL) 2 % shampoo - sd-pu-tqhd-FA-Ca carb-vit K (WOMEN'S MULTIVITAMIN) 18 mg-400 mcg- [...] Take 400 mg by mouth once daily. Interior Surface Insulation Worker: Therapy (PT/OT/Speech/Resp) ID: [id number] 06/13/2024 2:45 PM Author: SALVADOR HART Signed by SALVADOR HART PT on 06/13/2024 at 2:45 PM Document text: Program_ID:[id number] Access Code: [email or web address] URL: [email or web address] Date: 06-13-2024 Prepared By: Salvador Hart Program [...] 2 sets - 10 reps -- Normal [facility] THERAPY NTon 06-13-2024 THERAPY NT HNO ID: [id number] Author: SALVADOR HART, PT Service: ? Author Type: Physical Therapist Type: Therapy (PT/OT/Speech/Resp) Filed: 06/13/2024 14:45 Note Text: Program_ID:[id number] Access Code: [email or web address] URL: [email or web address] Date: 06-13-2024 Prepared By: Salvador Hart Program [...] - 2 sets - 10 reps Normal [facility] [id number] 06-03-2024 [id number] HNO ID: [id number] Author: SALVADOR HART PT Service: ? Author Type: Physical Therapist Type: [id number] Filed: 06/03/2024 13:39 Note Text: [facility] Physical Therapy Plan of Care Certification Patient Name: Sheila Crowe : 1980 [facility] #: [id number] Date: 06/03/2024 To: Ellen Rene A* From [...] of Care: created on 06/03/24 through 08/03/24 [place] in home exercise program. Patient will decrease [...] Planned: 4 Planned Treatment Interventions: Therapeutic exercise (29061), Neuromuscular re-education (41980), Manual therapy (42187), Therapeutic activities (83156), Self-long-term management (20824), Body Mechanics Training, Patient/Family/Caregiv er Education PLAN [...] I have reviewed the treatment plan for Sheial Crowe, [facility]# [id number] for the period of 06/03/24 -- 07/10/24, established on 06/03/2024. Signature certifies the need for therapy services. Normal [facility] CNTHERAPYon 06-03-2024 CNTHERAPY OT/PT/Speech Visit (PTWS) SHEILA CROWE ([id number]) 1980 F Date Time Provider Department 06/03/24 10:00 AM SALVADOR HART PTWS Date Time Provider Department Center 06/03/2024 10:00 AM [id number], COLIN PTWS Irwin Michael Reason for Visit: PT Brittney [747] Primary Visit Diagnosis:Acute midline low back [...] - ketoconazole (NIZORAL) 2 % shampoo - fz-zb-fwvm-FA-Ca carb-vit K (WOMEN'S MULTIVITAMIN) 18 mg-400 mcg- [...] Take 400 mg by mouth once daily. Interior Surface Insulation Worker: Therapy (PT/OT/Speech/Resp) ID: [id number] 06/03/2024 10:40 AM Author: SALVADOR HART Signed by SALVADOR HART PT on 06/03/2024 at 10:40 AM Document text: Program_ID:[id number] Access Code: [email or web address] URL: [email or web address] Date: 06-03-2024 Prepared By: Salvador Hart Program [...] - 2-3 sets - reps -- Normal [facility] THERAPY NTon 06-03-2024 THERAPY NT HNO ID: [id number] Author: SALVADOR HART, PT Service: ? Author Type: Physical Therapist Type: Therapy (PT/OT/Speech/Resp) Filed: 06/03/2024 10:40 Note Text: Program_ID:[id number] Access Code: [email or web address] URL: [email or web address] Date: 06-03-2024 Prepared By: Salvador Hart Program [...] weekly - 2-3 sets - reps Normal [facility] XR Lumbar spine 3 Viewson IMPRESSION: Lumbar spine degenerative changes as described above. In Shop Service Technician: PSCB Transcribe Date/Time: May 10 2024 12:05P Dictated by : MACEY GERBER MD This examination was interpreted and the report reviewed and electronically signed by: MACEY GERBER MD on May 10 2024 12:09PM [facility] DIVISION OF RADIOLOGY * * *Final Report* [...] spine are presented. FINDINGS: There are five woj-guz-vfpkifh lumbar vertebrae. No fracture or subluxations are noted. L1-2 and possible L5-S1 disc space narrowing noted. There is moderate osteophyte formation. Kissing spine seen on lateral view. DIVISION OF RADIOLOGY Provider, Camelia Spann - 05/10/2024 * * *Final Report* * [...] spine are presented. FINDINGS: There are five ird-nai-ehvmsds lumbar vertebrae. No fracture or subluxations are noted. L1-2 and possible L5-S1 disc space narrowing noted. There is moderate osteophyte formation. Kissing spine seen on lateral view. IMPRESSION IMPRESSION: Lumbar spine degenerative changes as described above. In Shop Service Technician: PSCB Transcribe Date/Time: May 10 2024 12:05P Dictated by : MACEY GERBER MD This examination was interpreted and the report reviewed and electronically signed by: MACEY GERBER MD on May 10 2024 12:09PM EST [facility] Radiology Study observation (narrative) [facility] XR Lumbar spine 3 ViewsOrder ed By: Ccf Provider on 05-10-2024 [facility] CBC W Auto Differential pane l (Bld)on 01-29-2024 Basophils (Bld) [#/Vol] <0.11 k/uL [facility] Basophils/100 WBC (Bld) 0.3 % [facility] Differential cell count method Nom (Bld) Auto [facility] Eosinophils (Bld) [#/Vol] 0.03 10*3/uL <0.46 k/uL [facility] Eosinophils/100 WBC (Bld) 0.4 % [facility] Erythrocyte distribution width (RBC) [Ratio] 11.8 % 11.5 - 15.0 % [facility] Hematocrit (Bld) [Volume fraction] 44.0 % 36.0 - 46.0 % [facility] Hemoglobin (Bld) [Mass/Vol] 14.3 g/dL 11.5 - 15.5 g/dL [facility] Immature granulocytes (Bld) [#/Vol] <0.10 k/uL [facility] Immature granulocytes/100 WBC (Bld) 0.3 % [facility] Lymphocytes (Bld) [#/Vol] 2.33 10*3/uL 1.00 - 4.00 k/uL [facility] Lymphocytes/100 WBC (Bld) 32.2 % [facility] MCH (RBC) [Entitic mass] 30.1 pg 26.0 - 34.0 pg [facility] MCHC (RBC) [Mass/Vol] 32.5 g/dL 30.5 - 36.0 g/dL [facility] MCV (RBC) [Entitic vol] 92.6 fL 80.0 - 100.0 fL [facility] Monocytes (Bld) [#/Vol] 0.27 10*3/uL <0.87 k/uL [facility] Monocytes/100 WBC (Bld) 3.7 % [facility] Neutrophils (Bld) [#/Vol] 4.56 10*3/uL 1.45 - 7.50 k/uL [facility] Neutrophils/100 WBC (Bld) 63.1 % [facility] Nucleated RBC (Bld) [#/Vol] <0.01 k/uL [facility] Nucleated RBC/100 WBC (Bld) [Ratio] 0.0 /100 WBC [facility] Platelet mean volume (Bld) [Entitic vol] 11.4 fL 9.0 - 12.7 fL [facility] Platelets (Bld) [#/Vol] 201 10*3/uL 150 - 400 k/uL [facility] RBC (Bld) [#/Vol] 4.75 10*6/uL 3.90 - 5.2 0 m/uL [facility] WBC (Bld) [#/Vol] 7.23 10*3/uL 3.70 - 11. 00 k/uL [facility] Comprehensive metabolic 2000 panelon 01-29-2024 Albumin [Mass/Vol] 4.7 g/dL 3.9 - 4.9 g/dL [facility] ALP [Catalytic activity/Vol] 66 U/L 34 - 123 U/L [facility] ALT [Catalytic activity/Vol] 19 U/L 7 - 38 U/L [facility] Anion gap [Moles/Vol] 14 mmol/L 9 - 18 mmol/L [facility] AST [Catalytic activity/Vol] 25 U/L 13 - 35 U/L [facility] Bilirubin [Mass/Vol] 0.3 mg/dL 0.2 - 1 .3 mg/dL [facility] Calcium [Mass/Vol] 10.2 mg/dL 8.5 - 10. 2 mg/dL [facility] Chloride [Moles/Vol] 104 mmol/L 97 - 10 5 mmol/L [facility] CO2 [Moles/Vol] 24 mmol/L 22 - 30 mmol/L [facility] Creatinine [Mass/Vol] 0.84 mg/dL 0.58 - 0.96 mg/dL [facility] Estimated Glomerular Filtration Rate 88 mL/min/1.73m >=60 mL/min/1.73m [facility] Glucose [Mass/Vol] 103 mg/dL High 74 - 99 mg/dL [facility] Potassium [Moles/Vol] 4.0 mmol/L 3.7 - 5.1 mmol/L [facility] Protein [Mass/Vol] 7.6 g/dL 6.3 - 8.0 g/dL [facility] Sodium [Moles/Vol] 142 mmol/L 136 - 144 mmol/L [facility] Urea nitrogen [Mass/Vol] 12 mg/dL 7 - 21 mg/dL [facility] HEMOCUE B/Oon 01-29-2024 Hemoglobin (Bld) [Mass/Vol] Negative 12.0 - 16.0 g/dL [facility] LIPASE BLDon 01-29-2024 Lipase [Catalytic activity/Vol] 15 U/L Low 16 - 61 U/L [facility] XR Abdomen Supine and Uprigh ton 01-29-2024 IMPRESSION: NO ACUTE ABDOMINAL PATHOLOGY VISUALIZED In Shop Service Technician: PSCNadeem Transcribe Date/Time: Jan 29 2024 3:34P Dictated by : CARLOS ENRIQUE YANEZ MD This examination was interpreted and the report reviewed and electronically signed by: CARLOS ENRIQUE YANEZ MD on Jan 29 2024 3:34PM [facility] DIVISION OF RADIOLOGY * * *Final Report* [...] acute osseous abnormalities. DIVISION OF RADIOLOGY Provider, [facility] - 01/29/2024 * * *Final Report* * [...] IMPRESSION IMPRESSION: NO ACUTE ABDOMINAL PATHOLOGY VISUALIZED In Shop Service Technician: [facility] Transcribe Date/Time: Jan 29 2024 3:34P Dictated by : CARLOS ENRIQUE YANEZ MD This examination was interpreted and the report reviewed and electronically signed by: CARLOS ENRIQUE YANEZ MD on Jan 29 2024 3:34PM EST [facility] Radiology Study observation (narrative) [facility] XR Abdomen Supine and Uprigh tOrdered By: Ccf Provider on 01-29-2024 [facility] [id number] 12-15-2023 Vitamin B6 Lvl 26.2 UG/L Normal 3.4-65.2 [facility] ([place]) Comment on above: Result Comment: This test was developed and its performance characteristics determined by [facility]. It has not been cleared or approved by the Food and Drug Administration. Deficiency: <3.4 Marginal: 3.4 - 5.1 Adequate: >5.1 Performed At: [address] [id number] Lloyd White MD Ph:[phone] Performed By: #### A 1C, 279574, ENA1, 603901, 458132, TSH #### [place] [address] [address] #### IFES, B12, RF, SPE, FOL #### [address] [address] METon 12-11-2023 Methylmalonic Acid 153 nmol/L Normal 0-378 [facility] ([place]) Comment on above: Result Comment: This test was developed and its performance characteristics determined by [facility]. It has not been cleared or approved by the Food and Drug Administration. Performed At: [address] [id number] Lloyd White MD Ph:[phone] Performed By: #### A 1C, 067754, ENA1, 669927, 670231, TSH #### [address] [address] #### IFES, B12, RF, SPE, FOL #### [place] [id number] B1WBon 12-10-2023 Vitamin B1 Whl Bld 150.0 nmol/L Normal 66.5-200.0 [facility] ([place]) Comment on above: Result Comment: This test was developed and its performance characteristics determined by [facility]. It has not been cleared or approved by the Food and Drug Administration. Performed At: [address] [id number] Lloyd White MD Ph:[phone] Performed By: #### A 1C, 441346, ENA1, 142910, 438369, TSH #### [address] [address] #### IFES, B12, RF, SPE, FOL #### [address] [address] RFon 12-07-2023 Rheumatoid Factor <6.0 Normal <=5.9 [facility] ([place]) Comment on above: Result Comment: RF I [...] tests. These results were obtained with the INOVA QUANTA Lite RF IgM MAGGI. RF IgM values obtained with different manufacturers' assay methods may not be used interchangeably. The magnitude of the reported IgM levels cannot be correlated to an endpoint titer. Performed By: #### A 1C, 481180, ENA1, 018342, 067978, TSH #### [place] [address] #### IFES, B12, RF, SPE, FOL #### [place] [address] SPEon 12-07-2023 SPE Interpretation Normal serum protein electrophoresis pattern. No abnormality detected. Normal [facility] ([place]) Comment on above: Result Comment: Elec tronically Signed by: TAYLOR RADFORD 12/07/2023 15:33 EST Performed By: #### A 1C, 610064, ENA1, 463193, 219524, TSH #### [place] [address] #### IFES, B12, RF, SPE, FOL #### [place] [address] Albumin 4.4 G/dL Normal 3.3-5.0 [facility] ([place]) Comment on above: Performed By: #### A 1C, 814959, ENA1, 624293, 944984, TSH #### [place] [address] #### IFES, B12, RF, SPE, FOL #### [place] [address] Alpha 1 0.2 G/dL Normal 0.1-0.4 [facility] ([place]) Comment on above: Performed By: #### A 1C, 895679, ENA1, 539332, 069271, TSH #### [place] [address] #### IFES, B12, RF, SPE, FOL #### [place] [address] Alpha 2 0.9 G/dL Normal 0.6-1.2 [facility] ([place]) Comment on above: Performed By: #### A 1C, 866270, ENA1, 731995, 599953, TSH #### [address] [address] #### IFES, B12, RF, SPE, FOL #### [address] [address] Beta 0.9 G/dL Normal 0.6-1.3 [facility] ([place]) Comment on above: Performed By: #### A 1C, 106991, ENA1, 990170, 275726, TSH #### [address] [address] #### IFES, B12, RF, SPE, FOL #### [address] [address] Gamma 1.2 G/dL Normal 0.7-1.6 [facility] ([place]) Comment on above: Performed By: #### A 1C, 399160, ENA1, 693181, 738770, TSH #### [place] [address] #### IFES, B12, RF, SPE, FOL #### [place] [address] ENA1on 12-06-2023 Centromere <0.2 Normal <1.0 [facility] ([place]) Comment on above: Result Comment: Anti -centromere antibody is used as in aid in diagnosis of systemic sclerosis. Clinical correlation is required. Test Methodology: Multiplex flow immunoassay. Performed By: [facility] [place] [address] Print Binding And Finishing Worker: Rick Orantes IIIIA#: [id number] Performed By: #### A 1C, 296259, ENA1, 107234, 630442, TSH #### [place] [address] #### IFES, B12, RF, SPE, FOL #### [address] [address] Centromere Ab Qualitative Negative Normal Negative [facility] ([place]) Comment on above: Result Comment: Perf ormed By: [place] [address] Print Binding And Finishing Worker: Carlos Mistry III, M.D. CLIA#: [id number] Performed By: #### A 1C, 270062, ENA1, 428553, 550487, TSH #### [address] [address] #### IFES, B12, RF, SPE, FOL #### [address] [address] Chromatin Ab Qualitative Negative Normal Negative [facility] ([place]) Comment on above: Result Comment: Perf ormed By: [place] [address] Print Binding And Finishing Worker: Carlos Mistry III, M.D. CLIA#: [id number] Performed By: #### A 1C, 504002, ENA1, 977895, 818573, TSH #### [place] [address] #### IFES, B12, RF, SPE, FOL #### [address] [address] Chromatin Antibody <0.2 Normal <1.0 [facility] ([place]) Comment on above: Result Comment: Test Methodology: Multiplex flow immunoassay. Anti-chromatin antibody is used as an aid in diagnosis of systemic lupus erythematosus. Clinical correlation is required. Test Methodology: Multiplex flow immunoassay. Performed By: [place] [address] Print Binding And Finishing Worker: Carlos Mistry III, M.D. CLIA#: [id number] Performed By: #### A 1C, 210752, ENA1, 503394, 439701, TSH #### [address] [address] #### IFES, B12, RF, SPE, FOL #### [address] [address] CARMELITA 1 Antibody <0.2 Normal <1.0 [facility] ([place]) Comment on above: Result Comment: Perf ormed By: [facility] [address] [place] [address] Print Binding And Finishing Worker: Carlos Mistry III, M.D. CLIA#: [id number] Performed By: #### A 1C, 241189, ENA1, 811290, 522267, TSH #### [address] [address] #### IFES, B12, RF, SPE, FOL #### [address] [address] CARMELITA 1 Antibody Qual Negative Normal Negative [facility] ([place]) Comment on above: Result Comment: Anti -CARMELITA-1 antibody is used as an aid in diagnosis of polymyositis and dermatomyositis especially with pulmonary involvement. A negative result cannot rule out polymyositis or dermatomyositis. Clinical correlation is required. Test Methodology: Multiplex flow immunoassay. Performed By: [place] [address] Print Binding And Finishing Worker: Carlos Mistry III, M.D. CLIA#: [id number] Performed By: #### A 1C, 909745, ENA1, 135459, 535830, TSH #### [address] [address] #### IFES, B12, RF, SPE, FOL #### [address] [address] Ribosomal PICK UP AND DELIVERY DRIVER <0.2 Normal <1.0 [facility] ([place]) Comment on above: Result Comment: Perf ormed By: [place] [address] Print Binding And Finishing Worker: Carlos Mistry III, M.D. CLIA#: [id number] Performed By: #### A 1C, 909052, ENA1, 236856, 680607, TSH #### [address] [address] #### IFES, B12, RF, SPE, FOL #### [address] [address] Ribosomal PICK UP AND DELIVERY DRIVER Qualitative Negative Normal Negative [facility] ([place]) Comment on above: Result Comment: Anti -Ribosomal RNA (Ribosomal P) antibody is used as an aid in diagnosis of systemic autoimmune diseases especially systemic lupus erythematosus and mixed connective tissue disease. Cross-reactivity with Anti-sarabia antibody is not uncommon. Clinical correlation is required. Test Methodology: Multiplex flow immunoassay. Performed By: [place] [address] Print Binding And Finishing Worker: Carlos Mistry III, M.D. CLIA#: [id number] Performed By: #### A 1C, 803346, ENA1, 444245, 967683, TSH #### [place] [address] #### IFES, B12, RF, SPE, FOL #### [address] [address] PICK UP AND DELIVERY DRIVER Antibody <0.2 Normal <1.0 [facility] ([place]) Comment on above: Result Comment: Anti -PICK UP AND DELIVERY DRIVER antibody is used as an aid in diagnosis of systemic autoimmune diseases especially systemic lupus erythematosus and mixed connective tissue disease. Cross-reactivity with Anti-sarabia antibody is not uncommon. Clinical correlation is required. Test Methodology: Multiplex flow immunoassay. Performed By: [place] [address] [employer] Binding And Finishing Worker: Carlos Mistry III, M.D. CLIA#: [id number] Performed By: #### A 1C, 516565, ENA1, 104385, 148235, TSH #### [address] [address] #### IFES, B12, RF, SPE, FOL #### [address] [address] PICK UP AND DELIVERY DRIVER Antibody Qualitative Negative Normal Negative [facility] ([place]) Comment on above: Result Comment: Perf ormed By: [place] [address] [employer] Binding And Finishing Worker: Carlos Mistry III, M.D. CLIA#: [id number] Performed By: #### A 1C, 507599, ENA1, 311068, 862692, TSH #### [address] [address] #### IFES, B12, RF, SPE, FOL #### [address] [address] Scleroderma Ab, IgG Qualitative Negative Normal Negative [facility] ([place] Comment on above: Result Comment: Perf ormed By: [place] [address] [employer] Binding And Finishing Worker: Carlos Mistry III, M.D. CLIA#: [id number] Performed By: #### A 1C, 197369, ENA1, 566614, 453785, TSH #### [place] [address] #### IFES, B12, RF, SPE, FOL #### [address] [address] Scleroderma IgG Ab <0.2 Normal <1.0 [facility] ([place]) Comment on above: Result Comment: Scl- 70/Scleroderma antibody test is used as an aid in diagnosis of systemic sclerosis especially the diffuse cutaneous form. A negative result cannot rule out systemic sclerosis. The final interpretation should consider clinical picture and other test results such as anti-centromere antibody. Test Methodology: Multiplex flow immunoassay. Performed By: [place] [address] [employer] Binding And Finishing Worker: Carlos Mistry III, M.D. CLIA#: [id number] Performed By: #### A 1C, 915590, ENA1, 458481, 135097, TSH #### [address] [address] #### IFES, B12, RF, SPE, FOL #### [place] [id number] Sm Antibody <0.2 Normal <1.0 [facility] ([place]) Comment on above: Result Comment: Perf ormed By: [place] [address] [employer] Binding And Finishing Worker: Carlos Mistry III, M.D. CLIA#: [id number] Performed By: #### A 1C, 152343, ENA1, 930484, 264752, TSH #### [address] [address] #### IFES, B12, RF, SPE, FOL #### [address] [address] Sm Antibody Qual Negative Normal Negative [facility] ([place] Comment on above: Result Comment: Anti -Sm (Sarabia) antibody is used as an aid in diagnosis of systemic lupus erythematosus and its presence is associated with renal disease. A negative result cannot rule out systemic lupus erythematosus. Clinical correlation is required. Test Methodology: Multiplex flow immunoassay. Performed By: [facility] [employer] [address] [place] [address] Print Binding And Finishing Worker: Carlos Mistry III, M.D. CLIA#: [id number] Performed By: #### A 1C, 440289, ENA1, 466561, 479527, TSH #### [place] [address] #### IFES, B12, RF, SPE, FOL #### [address] [address] SS-A Antibody <0.2 Normal <1.0 [facility] ([place]) Comment on above: Result Comment: Test Methodology: Multiplex flow immunoassay. Anti-SSA (anti-Ro) antibody is used as an aid in diagnosis of a variety of systemic autoimmune diseases, Sjogren's syndrome among others. Clinical correlation is required. Test Methodology: Multiplex flow immunoassay. Performed By: [facility] [employer] [address] [place] [address] [employer] Binding And Finishing Worker: Carlos Mistry III, M.D. CLIA#: [id number] Performed By: #### A 1C, 338120, ENA1, 600328, 824098, TSH #### [place] [address] #### IFES, B12, RF, SPE, FOL #### [address] [address] SS-B Antibody <0.2 Normal <1.0 [facility] ([place] Comment on above: Result Comment: Anti -SSB (anti-La) antibody is used as an aid in diagnosis of a variety of systemic autoimmune diseases, especially for Sjogren's syndrome and systemic lupus erythematosus. Clinical correlation is required. Test Methodology: Multiplex flow immunoassay. Performed By: [place] [address] [employer] Binding And Finishing Worker: Carlos Mistry III, M.D. CLIA#: [id number] Performed By: #### A 1C, 559191, ENA1, 722637, 357073, TSH #### [place] [address] #### IFES, B12, RF, SPE, FOL #### [address] [address] SSA Antibody Qualitative Negative Normal Negative [facility] ([place] Comment on above: Result Comment: Perf ormed By: [place] [address] [employer] Binding And Finishing Worker: Carlos Mistry III, M.D. CLIA#: [id number] Performed By: #### A 1C, 001830, ENA1, 212440, 477862, TSH #### [place] [address] #### IFES, B12, RF, SPE, FOL #### [address] [address] SSB Antibody Qualitative Negative Normal Negative [facility] ([place] Comment on above: Result Comment: Perf ormed By: [place] [address] [employer] Binding [employer] Finishing Worker: Carlos Mistry III, M.D. CLIA#: [id number] Performed By: #### Elizabeth 1C, 512435, ENA1, 177559, 917699, TSH #### [place] [address] #### IFES, B12, RF, SPE, FOL #### [address] [address] IFESon 12-06-2023 IFES Interpretation Immunofixation electrophoresis of serum shows the presence of only polyclonal immunoglobulins (IgG,A,M,[place] and Lambda), No monoclonal protein detected. Normal [facility] ([place]) Comment on above: Result Comment: Elec tronically Signed by: TAYLOR RADFORD 12/06/2023 15:12 EST Performed By: #### A 1C, 627303, ENA1, 870331, 569341, TSH #### [address] [address] #### IFES, B12, RF, SPE, FOL #### [address] [address] A1Con 12-05-2023 HbA1c (Bld) [Mass fraction] 4.3 % Normal 4.3-6.4 [facility] ([place]) Comment on above: Performed By: #### A 1C, 904033, ENA1, 217683, 009886, TSH #### [address] [address] #### IFES, B12, RF, SPE, FOL #### [address] [address] B12on 12-05-2023 Cobalamin (Vitamin B12) [Mass/Vol] 1209 pg/mL High 211-911 [facility] ([place] Comment on above: Performed By: #### A 1C, 452587, ENA1, 984041, 698077, TSH #### [address] [address] #### IFES, B12, RF, SPE, FOL #### [address] [address] FOLon 12-05-2023 Folate 24.22 ng/mL High 5.38-24.00 [facility] ([place]) Comment on above: Performed By: #### A 1C, 051105, ENA1, 066014, 288233, TSH #### [address] [address] #### IFES, B12, RF, SPE, FOL #### [address] [address] LABORATORYOrdered By: SYSTEM SYSTEM on 12-05-2023 Cobalamin (Vitamin B12) [Mass/Vol] 1209 pg/mL High 211 - 911 pg/mL ADM SS Folate [Mass/Vol] 24.22 ng/mL High 5.38 - 24. 00 ng/mL ADM SS HbA1c (Bld) [Mass fraction] 4.3 % Normal 4.3 - 6.4 % AO ADM SS TSH Qn 1.48 m[IU]/L Normal 0.36 - 3.74 mcIU/mL AO ADM SS LABORATORYOrdered By: Milvia Diamond on 12-05-2023 Protein [Mass/Vol] 7.6 G/dL Normal 5.7 - 8.2 G/dL AH ADM SS Comment on above: Interpretive Data: * *Note - New Reference Range in effect 20 SPEon 12-05-2023 Total Protein 7.6 G/dL Normal 5.7-8.2 [facility] ([place]) Comment on above: Result Comment: No te - New Reference Range in effect 20 Performed By: #### A 1C, 344533, ENA1, 506248, 238991, TSH #### [place] [address] #### IFES, B12, RF, SPE, FOL #### [place] [address] TSHon 12-05-2023 TSH Qn 1.48 m[IU]/L Normal 0.36-3.74 [facility] ([place]) Comment on above: Performed By: #### A 1C, 862649, ENA1, 176659, 227715, TSH #### [place] [address] #### IFES, B12, RF, SPE, FOL #### [place] [address] CBC W Auto Differential pane l (Bld)on 10-13-2023 Basophils (Bld) [#/Vol] <0.11 k/uL [facility] Basophils/100 WBC (Bld) 0.2 % [facility] Differential cell count method Nom (Bld) Auto [facility] Eosinophils (Bld) [#/Vol] 0.04 10*3/uL <0.46 k/uL [facility] Eosinophils/100 WBC (Bld) 0.7 % [facility] Erythrocyte distribution width (RBC) [Ratio] 13.1 % 11.5 - 15.0 % [facility] Hematocrit (Bld) [Volume fraction] 43.1 % 36.0 - 46.0 % [facility] Hemoglobin (Bld) [Mass/Vol] 13.9 g/dL 11.5 - 15.5 g/dL [facility] Immature granulocytes (Bld) [#/Vol] <0.10 k/uL [facility] Immature granulocytes/100 WBC (Bld) 0.3 % [facility] Lymphocytes (Bld) [#/Vol] 1.25 10*3/uL 1.00 - 4.00 k/uL [facility] Lymphocytes/100 WBC (Bld) 21.8 % [facility] MCH (RBC) [Entitic mass] 30.0 pg 26.0 - 34.0 pg [facility] MCHC (RBC) [Mass/Vol] 32.3 g/dL 30.5 - 36.0 g/dL [facility] MCV (RBC) [Entitic vol] 93.1 fL 80.0 - 100.0 fL [facility] Monocytes (Bld) [#/Vol] 0.23 10*3/uL <0.87 k/uL [facility] Monocytes/100 WBC (Bld) 4.0 % [facility] Neutrophils (Bld) [#/Vol] 4.19 10*3/uL 1.45 - 7.50 k/uL [facility] Neutrophils/100 WBC (Bld) 73.0 % [facility] Nucleated RBC (Bld) [#/Vol] <0.01 k/uL [facility] Nucleated RBC/100 WBC (Bld) [Ratio] 0.0 /100 WBC [facility] Platelet mean volume (Bld) [Entitic vol] 10.8 fL 9.0 - 12.7 fL [facility] Platelets (Bld) [#/Vol] 185 10*3/uL 150 - 400 k/uL [facility] RBC (Bld) [#/Vol] 4.63 10*6/uL 3.90 - 5.2 0 m/uL [facility] WBC (Bld) [#/Vol] 5.74 10*3/uL 3.70 - 11. 00 k/uL [facility] ESR Westergren method (Bld) [Velocity]on 10-13-2023 ESR (Bld) [Velocity] 2 mm/h 0 - 20 mm/hr [facility] ANAIFSon 09-22-2023 Antinuclear Ab Screen Negative Normal Negative [facility] ([place]) Comment on above: Result Comment: Anti -nuclear antibody test is used as an aid in diagnosis of systemic autoimmune diseases. Where positive and clinically warranted, follow-up using disease-specific testing is recommended. Low positive titers are not uncommon with advanced age, certain chronic infections, and malignancies among others. Test methodology: Indirect fluorescence immunoassay (IFA) using HEp-2 cells. Performed By: [facility] [address] [place] [address] Print Binding And Finishing Worker: Carlos Mistry III, M.D. CLIA#: [id number] Performed By: #### A NAIFS #### [address] [address] .Auto Diffon 07-19-2023 Basophil, Absolute 0.0 10 3/mcL Normal 0.0-0.2 [facility] ([place]) Comment on above: Performed By: #### A Lupillo, 389709, ENA1, 584035, 663297, TSH #### [place] [address] #### IFES, B12, RF, SPE, FOL #### [address] [address] Basophils/100 WBC (Bld) 0.3 % Normal 0.0-2.5 [facility] ([place]) Comment on above: Performed By: #### A 1C, 221948, ENA1, 421820, 409768, TSH #### [address] [address] #### IFES, B12, RF, SPE, FOL #### [address] [address] Eosinophil, Absolute 0.0 10 3/mcL Normal 0.0-0.4 [facility] ([place]) Comment on above: Performed By: #### A 1C, 343815, ENA1, 576461, 530119, TSH #### [address] [address] #### IFES, B12, RF, SPE, FOL #### [address] [address] Eosinophils/100 WBC (Bld) 1.0 % Normal 0.0-7.0 [facility] ([place]) Comment on above: Performed By: #### A 1C, 296265, ENA1, 940805, 178536, TSH #### [address] [address] #### IFES, B12, RF, SPE, FOL #### [address] [address] Lymphocyte, Absolute 1.2 10 3/mcL Normal 0.8-3.9 [facility] ([place]) Comment on above: Performed By: #### A 1C, 121846, ENA1, 669963, 379252, TSH #### [address] [address] #### IFES, B12, RF, SPE, FOL #### [address] [address] Lymphocytes/100 WBC (Bld) 24.9 % Normal 10.0-50.0 [facility] ([place] Comment on above: Performed By: #### A 1C, 091302, ENA1, 614949, 775743, TSH #### [address] [address] #### IFES, B12, RF, SPE, FOL #### [address] [address] Monocyte, Absolute 0.2 10 3/mcL Normal 0.2-1.0 [facility] ([place] Comment on above: Performed By: #### A 1C, 281674, ENA1, 553434, 376257, TSH #### [address] [address] #### IFES, B12, RF, SPE, FOL #### [address] [address] Monocytes/100 WBC (Bld) 4.5 % Normal 1.7-13.0 [facility] ([place] Comment on above: Performed By: #### A 1C, 496499, ENA1, 141219, 487380, TSH #### [place] [address] [place], [place] [address] #### IFES, B12, RF, SPE, FOL #### [address] [address] Neutrophils/100 WBC (Bld) 69.3 % Normal 37.0-80.0 [facility] ([place] Comment on above: Performed By: #### A 1C, 085960, ENA1, 203867, 676648, TSH #### [address] [address] #### IFES, B12, RF, SPE, FOL #### [address] [address] .GFRon 07-19-2023 GFR Non- 60 ml/min/1.73sqm Normal [facility] ([place]) Comment on above: Result Comment: GFR Population [...] square meters Performed By: #### A 1C, 786582, ENA1, 630772, 839890, TSH #### [address] [address] #### IFES, B12, RF, SPE, FOL #### [address] [address] GFR 72 ml/min/1.73sqm Normal [facility] ([place]) Comment on above: Result Comment: GFR Population [...] square meters Performed By: #### A 1C, 150878, ENA1, 086556, 124107, TSH #### [address] [address] #### IFES, B12, RF, SPE, FOL #### [address] [address] .NEUABSon 07-19-2023 Neutrophil, Absolute 3.4 10 3/mcL Normal 2.9-6.2 [facility] ([place]) Comment on above: Performed By: #### Elizabeth 1C, 109478, ENA1, 220315, 046201, TSH #### [address] [address] #### IFES, B12, RF, SPE, FOL #### [address] [address] A1Con 07-19-2023 HbA1c (Bld) [Mass fraction] 5.0 % Normal 4.3-6.4 [facility] ([place]) Comment on above: Performed By: #### Elizabeth 1C, 705637, ENA1, 118473, 331327, TSH #### [address] [address] #### IFES, B12, RF, SPE, FOL #### [address] [address] CBCon 07-19-2023 Erythrocyte distribution width (RBC) [Ratio] 12.9 % Normal 11.5-14.5 [facility] ([place]) Comment on above: Performed By: #### Elizabeth 1C, 232695, ENA1, 334361, 377756, TSH #### [place] [address] #### IFES, B12, RF, SPE, FOL #### [place] [address] Hematocrit (Bld) [Volume fraction] 38.0 % Normal 37.0-47.0 [facility] ([place] Comment on above: Performed By: #### A 1C, 222616, ENA1, 453718, 484764, TSH #### [place] [address] #### IFES, B12, RF, SPE, FOL #### [place] [address] Hgb 12.9 G/dL Normal 12.0-16.0 [facility] ([place] Comment on above: Performed By: #### A 1C, 196659, ENA1, 476744, 934678, TSH #### [place] [address] #### IFES, B12, RF, SPE, FOL #### [place] [address] MCH (RBC) [Entitic mass] 30.4 pg Normal 27.0-31.2 [facility] ([place] Comment on above: Performed By: #### A 1C, 723691, ENA1, 336702, 512905, TSH #### [place] [address] #### IFES, B12, RF, SPE, FOL #### [place] [address] MCHC 34.1 G/dL Normal 33.0-37.0 [facility] ([place] Comment on above: Performed By: #### A 1C, 246563, ENA1, 184775, 442226, TSH #### [place] [address] #### IFES, B12, RF, SPE, FOL #### [place] [address] MCV (RBC) [Entitic vol] 89.2 fL Normal 80.0-94.0 [facility] ([place] Comment on above: Performed By: #### A 1C, 713721, ENA1, 476407, 634565, TSH #### [address] [address] #### IFES, B12, RF, SPE, FOL #### [address] [address] Platelet 138 10 3/mcL Normal 130-400 [facility] ([place]) Comment on above: Performed By: #### Elizabeth 1C, 535761, ENA1, 533852, 838324, TSH #### [place] [address] #### IFES, B12, RF, SPE, FOL #### [address] [address] Platelet mean volume (Bld) [Entitic vol] 9.5 fL Normal 7.4-10.4 [facility] ([place]) Comment on above: Performed By: #### Elizabeth 1C, 203718, ENA1, 313095, 080631, TSH #### [place] [address] #### IFES, B12, RF, SPE, FOL #### [address] [address] RBC 4.26 10 6/mcL Normal 4.20-5.40 [facility] ([place]) Comment on above: Performed By: #### Elizabeth 1C, 331633, ENA1, 830239, 664525, TSH #### [address] [address] #### IFES, B12, RF, SPE, FOL #### [address] [address] WBC 4.9 10 3/mcL Normal 4.6-10.8 [facility] ([place] Comment on above: Performed By: #### Elizabeth 1C, 041065, ENA1, 246203, 812921, TSH #### [place] [id number] #### IFES, B12, RF, SPE, FOL #### [address] [address] CMPon 07-19-2023 Albumin Level 4.5 G/dL Normal 3.5-5.0 [facility] ([place]) Comment on above: Performed By: #### A 1C, 006124, ENA1, 570293, 945155, TSH #### [place] [address] #### IFES, B12, RF, SPE, FOL #### [address] [address] Albumin/Globulin [Mass ratio] 1.4 {ratio} Normal 1.1-2.5 [facility] ([place] Comment on above: Performed By: #### A 1C, 978263, ENA1, 146792, 477008, TSH #### [place] [address] #### IFES, B12, RF, SPE, FOL #### [address] [address] ALP [Catalytic activity/Vol] 67 U/L Normal 40-135 [facility] ([place]) Comment on above: Performed By: #### A 1C, 856260, ENA1, 905696, 370493, TSH #### [place] [address] #### IFES, B12, RF, SPE, FOL #### [place] [id number] ALT [Catalytic activity/Vol] 25 U/L Normal 14-59 [facility] ([place] Comment on above: Performed By: #### A 1C, 104478, ENA1, 861524, 520651, TSH #### [place] [address] #### IFES, B12, RF, SPE, FOL #### [address] [address] AST [Catalytic activity/Vol] 18 U/L Normal 10-40 [facility] ([place]) Comment on above: Performed By: #### A 1C, 377054, ENA1, 302743, 396699, TSH #### [place] [address] #### IFES, B12, RF, SPE, FOL #### [place] [address] Bili Total 0.4 mg/dL Normal 0.2-1.0 [facility] ([place]) Comment on above: Result Comment: Use of this assay is not recommended for patients undergoing treatment with eltrombopag due to the potential for falsely elevated results. Performed By: #### A 1C, 192548, ENA1, 605707, 311626, TSH #### [place] [address] #### IFES, B12, RF, SPE, FOL #### [place] [address] BUN/Creatinine Ratio 20 ratio Normal 7-27 [facility] ([place]) Comment on above: Performed By: #### A 1C, 724290, ENA1, 064918, 874827, TSH #### [place] [address] #### IFES, B12, RF, SPE, FOL #### [place] [address] Calcium [Mass/Vol] 9.4 mg/dL Normal 8.4-10.2 [facility] ([place]) Comment on above: Performed By: #### A 1C, 265786, ENA1, 150054, 145790, TSH #### [place] [address] #### IFES, B12, RF, SPE, FOL #### [place] [id number] Chloride [Moles/Vol] 106 mmol/L Normal 98-107 [facility] ([place]) Comment on above: Performed By: #### A 1C, 660829, ENA1, 123762, 229228, TSH #### [address] [address] #### IFES, B12, RF, SPE, FOL #### [address] [address] CO2 [Moles/Vol] 24 mmol/L Normal 22-29 [facility] ([place]) Comment on above: Performed By: #### A 1C, 405722, ENA1, 154710, 755379, TSH #### [place] [address] #### IFES, B12, RF, SPE, FOL #### [address] [address] Creatinine [Mass/Vol] 1.01 mg/dL Normal 0.55-1.02 [facility] ([place]) Comment on above: Performed By: #### A 1C, 300018, ENA1, 026411, 646838, TSH #### [place] [address] #### IFES, B12, RF, SPE, FOL #### [address] [address] Electrolyte Balance 12.0 mEq/L Normal 4.0-15.0 [facility] ([place]) Comment on above: Performed By: #### A 1C, 931311, ENA1, 501219, 343530, TSH #### [place] [address] #### IFES, B12, RF, SPE, FOL #### [place] [address] Globulin 3.3 G/dL Normal [facility] ([place] Comment on above: Performed By: #### A 1C, 776215, ENA1, 025558, 853083, TSH #### [place] [address] #### IFES, B12, RF, SPE, FOL #### [address] [address] Glucose [Mass/Vol] 89 mg/dL Normal 70-105 [facility] ([place]) Comment on above: Performed By: #### A 1C, 306669, ENA1, 159174, 130072, TSH #### [address] [address] #### IFES, B12, RF, SPE, FOL #### [address] [address] Potassium [Moles/Vol] 4.0 mmol/L Normal 3.5-5.1 [facility] ([place]) Comment on above: Performed By: #### A 1C, 621738, ENA1, 197446, 664807, TSH #### [address] [address] #### IFES, B12, RF, SPE, FOL #### [address] [address] Sodium [Moles/Vol] 142 mmol/L Normal 136-145 [facility] ([place] Comment on above: Performed By: #### A 1C, 017753, ENA1, 611248, 322077, TSH #### [address] [address] #### IFES, B12, RF, SPE, FOL #### [address] [address] Total Protein 7.8 G/dL Normal 6.4-8.2 [facility] ([place]) Comment on above: Performed By: #### A 1C, 564832, ENA1, 810613, 184747, TSH #### [address] [address] #### IFES, B12, RF, SPE, FOL #### [address] [address] Urea nitrogen [Mass/Vol] 20 mg/dL High 7-18 [facility] ([place] Comment on above: Performed By: #### A 1C, 394536, ENA1, 833537, 819435, TSH #### [address] [address] #### IFES, B12, RF, SPE, FOL #### [address] [address] Neal 07-19-2023 Ferritin [Mass/Vol] 51.0 ng/mL Normal 8.0-252.0 [facility] ([place]) Comment on above: Performed By: #### A 1C, 858464, ENA1, 797836, 551003, TSH #### [address] [address] #### IFES, B12, RF, SPE, FOL #### [address] [address] LIPIDon 07-19-2023 Cholesterol [Mass/Vol] 180 mg/dL Normal 0-200 [facility] ([place] Comment on above: Result Comment: Chol esterol Reference Interval: Less than 200 Desirable 200-239 Borderline high risk 240 and above High risk Performed By: #### A 1C, 270370, ENA1, 279031, 293873, TSH #### [place] [address] #### IFES, B12, RF, SPE, FOL #### [address] [address] Cholesterol in HDL [Mass/Vol] 55 mg/dL Normal 40-60 [facility] ([place] Comment on above: Performed By: #### A 1C, 177187, ENA1, 710170, 028897, TSH #### [address] [address] #### IFES, B12, RF, SPE, FOL #### [address] [address] Cholesterol in LDL [Mass/Vol] 112 mg/dL Normal 0-130 [facility] ([place] Comment on above: Performed By: #### A 1C, 523572, ENA1, 797554, 190150, TSH #### [address] [address] #### IFES, B12, RF, SPE, FOL #### [address] [address] Triglyceride [Mass/Vol] 63 mg/dL Normal 0-150 [facility] ([place] Comment on above: Result Comment: Trig lyceride Reference Interval: Less than 150 Normal 150-199 Borderline high risk 200-499 High risk 500 or higher Very high risk Performed By: #### A 1C, 462895, ENA1, 396638, 075731, TSH #### [address] [address] #### IFES, B12, RF, SPE, FOL #### [address] [address] TSHon 07-19-2023 TSH Qn 1.84 m[IU]/L Normal 0.36-3.74 [facility] ([place] Comment on above: Performed By: #### A 1C, 551596, ENA1, 998483, 415111, TSH #### [address] [address] #### IFES, B12, RF, SPE, FOL #### [address] [address] aTPOon 07-19-2023 anti-Thyroid Peroxidase <28 Normal 0-60 [facility] ([place] Comment on above: Result Comment: No te - New Reference Range in effect 20 Performed By: #### A 1C, 548333, ENA1, 380875, 080060, TSH #### [address] [address] #### IFES, B12, RF, SPE, FOL #### [address] [address] BRITTON SCREENINGon 12-08-2022 [facility] Vitamin D 25 Hydroxyon 05-28 Vitamin D 25 Hydroxy 53.8 ng/mL Normal 31.0-80.0 [facility] Comment on above: Performed By: #### V ITD #### [facility] Routine Lab [address] [place], [place] [address] KNEE COMP 4 OR MORE VWS BILo [...] Signature on File ---- Signed By: Edy Reinoso MD [email or web address] Dictated: 03/18/2020 10:37 AM Signed: 03/18/2020 10:41 AM Reported By: EDY REINOSO M.D. Signed By: EDY REINOSO M.D. [facility] Vital Signs Date Time Vital Sign Value Performing Clinician Flori anahi 07-22-2025 12:51-0400 Body height 172.[address] Torres Yao MD Work Phone: [facility] 07-22-2025 12:51-0400 Body mass index (BMI) [Ratio] 28.5 kg/m2 Dr. Torres Yao MD Work Phone: [facility] 07-22-2025 12:51-0400 Body weight 85.[address] Torres Yao MD Work Phone: [facility] 06-11-2025 10:33-0400 Body temperature 97.3 [degF] Dr. Torres Yao MD Work Phone: [facility] 06-11-2025 10:33-0400 Diastolic blood pressure 77 mm[Hg] Dr. Torres Yao MD Work Phone: [facility] 06-11-2025 10:33-0400 Heart rate 47 /min Dr. Torres Yao MD Work Phone: [phone] [place] [address] 06-11-2025 10:33-0400 Respiratory rate 16 /min Dr. Torres Yao MD Work Phone: 8(722)[phone] [place] [address] 06-11-2025 10:33-0400 SaO2% (BldA) [Mass fraction] 96 % Dr. Torres Yao MD Work Phone: 1(006)381-357110 [place] [address] 06-11-2025 10:33-0400 Systolic blood pressure 100 mm[Hg] Dr. Torres Yao MD Work Phone: 1(301)865-123110 [place] [address] 06-11-2025 05:57-0400 Body height 172.[address] Torres Yao MD Work Phone: 0(969)994-626810 [place] [address] 06-11-2025 05:57-0400 Body mass index (BMI) [Ratio] 29.1 kg/m2 Dr. Torres Yao MD Work Phone: 7(056)871-967510 [place] [address] 06-11-2025 05:57-0400 Body weight [address] Torres Yao MD Work Phone: 6(193)[phone] [place] [address] 05-22-2025 10:24-0400 Body height 172.[address] Torres Yao MD Work Phone: 2(399)542-270710 [place] [address] 05-22-2025 10:24-0400 Body mass index (BMI) [Ratio] 28.4 kg/m2 Dr. Torres Yao MD Work Phone: 9(127)129-413992 [place] [address] 05-22-2025 10:24-0400 Body weight 84.[address] Torres Yao MD Work Phone: [facility] 05-16-2025 13:36-0400 Body mass index (BMI) [Ratio] 28.43 kg/m2 Torres Yao MD Work Phone: [facility] 05-16-2025 13:36-0400 Body weight 84.82 kg Torres Yao MD Work Phone: [facility] 05-16-2025 13:36-0400 Diastolic blood pressure 72 mm[Hg] Torres Yao MD Work Phone: [facility] 05-16-2025 13:36-0400 Heart rate 77 /min Torres Yao MD Work Phone: [facility] 05-16-2025 13:36-0400 SaO2% (BldA) [Mass fraction] 99 % Torres Yao MD Work Phone: [facility] 05-16-2025 13:36-0400 Systolic blood pressure 120 mm[Hg] Torres Yao MD Work Phone: [facility] 05-15-2025 11:16-0400 Diastolic blood pressure 83 mm[Hg] Freeman Sarabia PA-C Work Phone: [facility] 05-15-2025 11:16-0400 Heart rate 74 /min Freeman Sarabia PA-C Work Phone: [facility] 05-15-2025 11:16-0400 Respiratory rate 16 /min Freeman Sarabia PA-C Work Phone: [facility] 05-15-2025 11:16-0400 SaO2% (BldA) [Mass fraction] 100 % Freeman Sarabia PA-C Work Phone: [facility] 05-15-2025 11:16-0400 Systolic blood pressure 132 mm[Hg] Freeman Sarabia PA-C Work Phone: [facility] 05-05-2025 12:58-0400 Diastolic blood pressure 66 mm[Hg] Ellen Suppan DIGITAL PROJECT COORDINATOR.RUFFLING MACHINE OPERATOR Work Phone: [facility] 05-05-2025 12:58-0400 Systolic blood pressure 110 mm[Hg] Ellen Suppan DIGITAL PROJECT COORDINATOR.RUFFLING MACHINE OPERATOR Work Phone: [facility] 05-05-2025 12:44-0400 Body mass index (BMI) [Ratio] 29.8 kg/m2 Ellen Suppan DIGITAL PROJECT COORDINATOR.RUFFLING MACHINE OPERATOR Work Phone: [facility] 05-05-2025 12:44-0400 Body temperature 97.59 [degF] Ellen Suppan DIGITAL PROJECT COORDINATOR.RUFFLING MACHINE OPERATOR Work Phone: [facility] 05-05-2025 12:44-0400 Body weight 88.91 kg Ellen Marco Asukhdev DIGITAL PROJECT COORDINATOR.RUFFLING MACHINE OPERATOR Work Phone: [facility] 05-05-2025 12:44-0400 Heart rate 67 /min Ellen Marco Asukhdev DIGITAL PROJECT COORDINATOR.RUFFLING MACHINE OPERATOR Work Phone: [facility] 05-05-2025 12:44-0400 SaO2% (BldA) [Mass fraction] 99 % Ellen Marco Asukhdev DIGITAL PROJECT COORDINATOR.RUFFLING MACHINE OPERATOR Work Phone: [facility] 04-21-2025 11:00-0400 Body height 172.[address] Torres Yao MD Work Phone: [facility] 04-21-2025 11:00-0400 Body mass index (BMI) [Ratio] 29.5 kg/m2 Dr. Torres Yao MD Work Phone: [facility] 04-21-2025 11:00-0400 Body weight 88.[address] Torres Yao MD Work Phone: [facility] 03-14-2025 10:32-0400 Diastolic blood pressure 78 mm[Hg] Torres Yao MD Work Phone: [facility] 03-14-2025 10:32-0400 Systolic blood pressure 132 mm[Hg] Torres Yao MD Work Phone: [facility] 03-14-2025 10:08-0400 Body mass index (BMI) [Ratio] 27.83 kg/m2 Torres Yao MD Work Phone: [facility] 03-14-2025 10:08-0400 Body weight 83.01 kg Torres Yao MD Work Phone: [facility] 03-14-2025 10:08-0400 Heart rate 97 /min Torres Yao MD Work Phone: [facility] 03-14-2025 10:08-0400 SaO2% (BldA) [Mass fraction] 99 % Torres Yao MD Work Phone: [facility] 02-14-2025 13:13-0400 Body mass index (BMI) [Ratio] 28.13 kg/m2 Freeman Sarabia PA-C Work Phone: [facility] 02-14-2025 13:13-0400 Body weight 83.92 kg Freeman Sarabia PA-C Work Phone: [facility] 02-14-2025 13:13-0400 Diastolic blood pressure 88 mm[Hg] Freeman Sarabia PA-C Work Phone: [facility] 02-14-2025 13:13-0400 Heart rate 84 /min Freeman Sarabia PA-C Work Phone: [facility] 02-14-2025 13:13-0400 Respiratory rate 18 /min Freeman Sarabia PA-C Work Phone: [facility] 02-14-2025 13:13-0400 SaO2% (BldA) [Mass fraction] 99 % Freeman Sarabia PA-C Work Phone: [facility] 02-14-2025 13:13-0400 Systolic blood pressure 142 mm[Hg] Freeman Sarabia PA-C Work Phone: [facility] 11-22-2024 11:27-0500 Body mass index (BMI) [Ratio] 27.67 kg/m2 Freeman Sarabia PA-C Work Phone: [facility] 11-22-2024 11:27-0500 Body weight 82.56 kg Freeman Sarabia PA-C Work Phone: [facility] 11-22-2024 11:27-0500 Diastolic blood pressure 90 mm[Hg] Freeman Sarabia PA-C Work Phone: [facility] 11-22-2024 11:27-0500 Heart rate 71 /min Freeman Sarabia PA-C Work Phone: [facility] 11-22-2024 11:27-0500 Respiratory rate 18 /min Freeman Sarabia PA-C Work Phone: [facility] 11-22-2024 11:27-0500 SaO2% (BldA) [Mass fraction] 100 % Freeman Sarabia PA-C Work Phone: [facility] 11-22-2024 11:27-0500 Systolic blood pressure 133 mm[Hg] Freeman Sarabia PA-C Work Phone: [facility] 09-17-2024 13:25-0500 Diastolic blood pressure 70 mm[Hg] Isaac Cannon MD Work Phone: [facility] 09-17-2024 13:25-0500 Heart rate 69 /min Isaac Cannon MD Work Phone: [facility] 09-17-2024 13:25-0500 Respiratory rate 18 /min Isaac Cannon MD Work Phone: [facility] 09-17-2024 13:25-0500 Systolic blood pressure 114 mm[Hg] Isaac Cannon MD Work Phone: [facility] 09-17-2024 13:00-0500 Body temperature 97.2 [degF] Isaac Cannon MD Work Phone: [facility] 09-12-2024 10:08-0500 Body mass index (BMI) [Ratio] 27.72 kg/m2 Ellen Suppan DIGITAL PROJECT COORDINATOR.RUFFLING MACHINE OPERATOR Work Phone: [facility] 09-12-2024 10:08-0500 Body weight 82.7 kg Ellen Suppan DIGITAL PROJECT COORDINATOR.RUFFLING MACHINE OPERATOR Work Phone: [facility] 09-12-2024 10:08-0500 Diastolic blood pressure 78 mm[Hg] Ellen Suppan DIGITAL PROJECT COORDINATOR.RUFFLING MACHINE OPERATOR Work Phone: [facility] 09-12-2024 10:08-0500 Heart rate 76 /min Ellen Suppan DIGITAL PROJECT COORDINATOR.RUFFLING MACHINE OPERATOR Work Phone: [facility] 09-12-2024 10:08-0500 Respiratory rate 16 /min Ellen Suppan DIGITAL PROJECT COORDINATOR.RUFFLING MACHINE OPERATOR Work Phone: [facility] 09-12-2024 10:08-0500 SaO2% (BldA) [Mass fraction] 85 % Ellen Suppan DIGITAL PROJECT COORDINATOR.RUFFLING MACHINE OPERATOR Work Phone: [facility] 09-12-2024 10:08-0500 Systolic blood pressure 134 mm[Hg] Ellen Suppan DIGITAL PROJECT COORDINATOR.RUFFLING MACHINE OPERATOR Work Phone: [facility] 08-28-2024 13:17-0400 Body mass index (BMI) [Ratio] 28.28 kg/m2 Freeman Sarabia PA-C Work Phone: [facility] 08-28-2024 13:17-0400 Body weight 84.37 kg Freeman Sarabia PA-C Work Phone: [facility] 08-28-2024 13:17-0400 Diastolic blood pressure 88 mm[Hg] Freeman Sarabia PA-C Work Phone: [facility] 08-28-2024 13:17-0400 Heart rate 73 /min Freeman Sarabia PA-C Work Phone: [facility] 08-28-2024 13:17-0400 Respiratory rate 18 /min Freeman Sarabia PA-C Work Phone: [facility] 08-28-2024 13:17-0400 SaO2% (BldA) [Mass fraction] 99 % Freeman Sarabia PA-C Work Phone: [facility] 08-28-2024 13:17-0400 Systolic blood pressure 134 mm[Hg] Freeman Sarabia PA-C Work Phone: [facility] 06-13-2024 11:12-0400 Body mass index (BMI) [Ratio] 28.28 kg/m2 Ellen Suppan DIGITAL PROJECT COORDINATOR.RUFFLING MACHINE OPERATOR Work Phone: [facility] 06-13-2024 11:12-0400 Body weight 84.37 kg Ellen Suppan DIGITAL PROJECT COORDINATOR.RUFFLING MACHINE OPERATOR Work Phone: [facility] 06-13-2024 11:12-0400 Diastolic blood pressure 74 mm[Hg] Ellen Suppan DIGITAL PROJECT COORDINATOR.RUFFLING MACHINE OPERATOR Work Phone: [facility] 06-13-2024 11:12-0400 Heart rate 78 /min Ellen Rene DIGITAL PROJECT COORDINATOR.RUFFLING MACHINE OPERATOR Work Phone: [facility] 06-13-2024 11:12-0400 Respiratory rate 16 /min Ellen Stricklandan DIGITAL PROJECT COORDINATOR.RUFFLING MACHINE OPERATOR Work Phone: [facility] 06-13-2024 11:12-0400 SaO2% (BldA) [Mass fraction] 99 % Ellen Suppan DIGITAL PROJECT COORDINATOR.RUFFLING MACHINE OPERATOR Work Phone: [facility] 06-13-2024 11:12-0400 Systolic blood pressure 122 mm[Hg] Ellen Suppan DIGITAL PROJECT COORDINATOR.RUFFLING MACHINE OPERATOR Work Phone: [facility] 05-23-2024 13:43-0400 Body height 172.7 cm Freeman DUKE-C Work Phone: [facility] 05-23-2024 13:43-0400 Body mass index (BMI) [Ratio] 30.11 kg/m2 Freeman DUKE-C Work Phone: [facility] 05-23-2024 13:43-0400 Body temperature 97.3 [degF] Freeman DUKE-C Work Phone: [facility] 05-23-2024 13:43-0400 Body weight 89.81 kg Freeman DUKE-C Work Phone: [facility] 05-23-2024 13:43-0400 Diastolic blood pressure 79 mm[Hg] Freeman DUKE-C Work Phone: [facility] 05-23-2024 13:43-0400 Heart rate 84 /min Freeman DUKE-C Work Phone: [facility] 05-23-2024 13:43-0400 Respiratory rate 20 /min Freeman Sarabia PA-C Work Phone: [facility] 05-23-2024 13:43-0400 SaO2% (BldA) [Mass fraction] 94 % Freeman DUKE-C Work Phone: [facility] 05-23-2024 13:43-0400 Systolic blood pressure 120 mm[Hg] Freeman Sarabia PA-C Work Phone: [facility] 05-10-2024 11:06-0400 Body mass index (BMI) [Ratio] 28.89 kg/m2 Ellen Suppan DIGITAL PROJECT COORDINATOR.RUFFLING MACHINE OPERATOR Work Phone: [facility] 05-10-2024 11:06-0400 Body weight 86.18 kg Ellen Suppan DIGITAL PROJECT COORDINATOR.RUFFLING MACHINE OPERATOR Work Phone: [facility] 05-10-2024 11:06-0400 Diastolic blood pressure 76 mm[Hg] Ellen Suppan DIGITAL PROJECT COORDINATOR.RUFFLING MACHINE OPERATOR Work Phone: [facility] 05-10-2024 11:06-0400 Heart rate 81 /min Ellen Suppan DIGITAL PROJECT COORDINATOR.RUFFLING MACHINE OPERATOR Work Phone: [facility] 05-10-2024 11:06-0400 SaO2% (BldA) [Mass fraction] 100 % Ellen Suppan DIGITAL PROJECT COORDINATOR.RUFFLING MACHINE OPERATOR Work Phone: [facility] 05-10-2024 11:06-0400 Systolic blood pressure 118 mm[Hg] Ellen Suppan DIGITAL PROJECT COORDINATOR.RUFFLING MACHINE OPERATOR Work Phone: [facility] 03-04-2024 13:38-0400 Body mass index (BMI) [Ratio] 28.07 kg/m2 Yomi Suarez MD Work Phone: [facility] 03-04-2024 13:38-0400 Body weight 83.73 kg Yomi Suarez MD Work Phone: [facility] 03-04-2024 13:38-0400 Diastolic blood pressure 62 mm[Hg] Yomi Suarez MD Work Phone: [facility] 03-04-2024 13:38-0400 Heart rate 68 /min Yomi Suarez MD Work Phone: [facility] 03-04-2024 13:38-0400 Respiratory rate 16 /min Yomi Suarez MD Work Phone: [facility] 03-04-2024 13:38-0400 SaO2% (BldA) [Mass fraction] 98 % Yomi Suarez MD Work Phone: [facility] 03-04-2024 13:38-0400 Systolic blood pressure 100 mm[Hg] Yomi Suarez MD Work Phone: [facility] 02-29-2024 17:38-0400 Body height 172.[address] ANABEL TOLEDO MD [facility] 02-29-2024 17:38-0400 Body temperature 96.98 [degF] DR AANBEL TOLEDO MD [facility] 02-29-2024 17:38-0400 Body weight 84.[address] ANABEL TOLEDO MD [facility] 02-29-2024 17:38-0400 Diastolic Blood Pressure Non-Invasive 84 mm[Hg] DR ANABEL TOLEDO MD [facility] 02-29-2024 17:38-0400 Heart rate 90 /min DR ANABEL TOLEDO MD [facility] 02-29-2024 17:38-0400 Respiratory rate 18 /min DR ANABEL TOLEDO MD [facility] 02-29-2024 17:38-0400 Systolic Blood Pressure Non-Invasive 130 mm[Hg] DR ANABEL TOLEDO MD [facility] 02-07-2024 13:10-0400 Body height 172.7 cm Min Velazco MD Work Phone: [facility] 02-07-2024 13:10-0400 Body temperature 97.59 [degF] Min Velazco MD Work Phone: [facility] 02-07-2024 13:10-0400 Body weight 83.01 kg Min Velazco MD Work Phone: [facility] 02-07-2024 13:10-0400 Diastolic blood pressure 84 mm[Hg] Min Velazco MD Work Phone: [facility] 02-07-2024 13:10-0400 Heart rate 74 /min Min Velazco MD Work Phone: [facility] 02-07-2024 13:10-0400 Respiratory rate 20 /min Min Velazco MD Work Phone: [facility] 02-07-2024 13:10-0400 SaO2% (BldA) [Mass fraction] 100 % Min Velazco MD Work Phone: [facility] 02-07-2024 13:10-0400 Systolic blood pressure 128 mm[Hg] Min Velazco MD Work Phone: [facility] 01-29-2024 14:28-0400 Body height 172.7 cm Torres Yao MD Work Phone: [facility] 01-29-2024 14:28-0400 Body weight 83.01 kg Torres Yao MD Work Phone: [facility] 01-29-2024 14:28-0400 Diastolic blood pressure 68 mm[Hg] Torres Yao MD Work Phone: [facility] 01-29-2024 14:28-0400 Heart rate 85 /min Torres Yao MD Work Phone: [facility] 01-29-2024 14:28-0400 Systolic blood pressure 99 mm[Hg] Torres Yao MD Work Phone: [facility] 01-04-2024 14:53-0500 Diastolic blood pressure 76 mm[Hg] Min Velazco MD Work Phone: [facility] 01-04-2024 14:53-0500 Heart rate 85 /min Min Velazco MD Work Phone: [facility] 01-04-2024 14:53-0500 Respiratory rate 18 /min Min Velazco MD Work Phone: [facility] 01-04-2024 14:53-0500 Systolic blood pressure 114 mm[Hg] Min Velazco MD Work Phone: [facility] 01-04-2024 14:41-0500 Body temperature 96.49 [degF] Min Velazco MD Work Phone: [facility] 12-22-2023 13:04-0500 Body temperature 97.81 [degF] Freeman Sarabia PA-C Work Phone: [facility] 12-22-2023 13:04-0500 Diastolic blood pressure 77 mm[Hg] Freeman Sarabia PA-C Work Phone: [facility] 12-22-2023 13:04-0500 Heart rate 70 /min Freeman Sarabia PA-C Work Phone: [facility] 12-22-2023 13:04-0500 Respiratory rate 18 /min Freeman Sarabia PA-C Work Phone: [facility] 12-22-2023 13:04-0500 SaO2% (BldA) [Mass fraction] 100 % Freeman Sarabia PA-C Work Phone: [facility] 12-22-2023 13:04-0500 Systolic blood pressure 121 mm[Hg] Freeman Sarabia PA-C Work Phone: [facility] 10-13-2023 14:07-0500 Body weight 84.37 kg Torres Yao MD Work Phone: [facility] 10-13-2023 14:07-0500 Diastolic blood pressure 72 mm[Hg] Torres Yao MD Work Phone: [facility] 10-13-2023 14:07-0500 Heart rate 71 /min Torres Yao MD Work Phone: [facility] 10-13-2023 14:07-0500 SaO2% (BldA) [Mass fraction] 100 % Torres Yao MD Work Phone: [facility] 10-13-2023 14:07-0500 Systolic blood pressure 102 mm[Hg] Torres Yao MD Work Phone: [facility] 09-28-2023 14:06-0500 Body height 172.7 cm Freeman DUKE-C Work Phone: [facility] 09-28-2023 14:06-0500 Body temperature 97 [degF] Freeman Sarabia PA-C Work Phone: [facility] 09-28-2023 14:06-0500 Body weight 85.28 kg Freeman Sarabia PA-C Work Phone: [facility] 09-28-2023 14:06-0500 Diastolic blood pressure 75 mm[Hg] Freeman Sarabia PA-C Work Phone: [facility] 09-28-2023 14:06-0500 Heart rate 71 /min Freeman DUKE-C Work Phone: [facility] 09-28-2023 14:06-0500 Respiratory rate 18 /min Freeman Sarabia PA-C Work Phone: [facility] 09-28-2023 14:06-0500 SaO2% (BldA) [Mass fraction] 100 % Freeman Sarabia PA-C Work Phone: [facility] 09-28-2023 14:06-0500 Systolic blood pressure 115 mm[Hg] Freeman Sarabia PA-C Work Phone: [facility] 08-29-2023 15:13-0400 Diastolic blood pressure 74 mm[Hg] Min Velazco MD Work Phone: [facility] 08-29-2023 15:13-0400 Heart rate 62 /min Min Velazco MD Work Phone: [facility] 08-29-2023 15:13-0400 Respiratory rate 18 /min Min Velazco MD Work Phone: [facility] 08-29-2023 15:13-0400 Systolic blood pressure 104 mm[Hg] Min Velazco MD Work Phone: [facility] 08-29-2023 14:53-0400 Body temperature 96.8 [degF] Min Velazco MD Work Phone: [facility] 08-25-2023 09:07-0400 Body temperature 97.2 [degF] Freeman Sarabia PA-C Work Phone: [facility] 08-25-2023 09:07-0400 Diastolic blood pressure 72 mm[Hg] Freeman Sarabia PA-C Work Phone: [facility] 08-25-2023 09:07-0400 Heart rate 68 /min Freeman Sarabia PA-C Work Phone: [facility] 08-25-2023 09:07-0400 Respiratory rate 18 /min Freeman Sarabia PA-C Work Phone: [facility] 08-25-2023 09:07-0400 SaO2% (BldA) [Mass fraction] 100 % Freeman Sarabia PA-C Work Phone: [facility] 08-25-2023 09:07-0400 Systolic blood pressure 109 mm[Hg] Freeman Sarabia PA-C Work Phone: [facility] 07-13-2023 13:33-0400 Body temperature 97.3 [degF] Freeman Sarabia PA-C Work Phone: [facility] 07-13-2023 13:33-0400 Diastolic blood pressure 76 mm[Hg] Freeman Sarabia PA-C Work Phone: [facility] 07-13-2023 13:33-0400 Heart rate 64 /min Freeman Sarabia PA-C Work Phone: [facility] 07-13-2023 13:33-0400 Respiratory rate 18 /min Freeman Sarabia PA-C Work Phone: [facility] 07-13-2023 13:33-0400 SaO2% (BldA) [Mass fraction] 100 % Freeman Sarabia PA-C Work Phone: [facility] 07-13-2023 13:33-0400 Systolic blood pressure 119 mm[Hg] Freeman Sarabia PA-C Work Phone: [facility] 06-01-2023 16:28-0400 Diastolic blood pressure 68 mm[Hg] Min Velazco MD Work Phone: [facility] 06-01-2023 16:28-0400 Heart rate 60 /min Min Velazco MD Work Phone: [facility] 06-01-2023 16:28-0400 Respiratory rate 18 /min Min Velazco MD Work Phone: [facility] 06-01-2023 16:28-0400 Systolic blood pressure 114 mm[Hg] Min Velazco MD Work Phone: [facility] 06-01-2023 16:19-0400 Body temperature 96.6 [degF] Min Velazco MD Work Phone: [facility] 05-26-2023 13:28-0400 Body temperature 97.59 [degF] Freeman Sarabia PA-C Work Phone: [facility] 05-26-2023 13:28-0400 Diastolic blood pressure 85 mm[Hg] Freeman Sarabia PA-C Work Phone: [facility] 05-26-2023 13:28-0400 Heart rate 74 /min Freeman Sarabia PA-C Work Phone: [facility] 05-26-2023 13:28-0400 Respiratory rate 18 /min Freeman Sarabia PA-C Work Phone: [facility] 05-26-2023 13:28-0400 SaO2% (BldA) [Mass fraction] 100 % Freeman Sarabia PA-C Work Phone: [facility] 05-26-2023 13:28-0400 Systolic blood pressure 136 mm[Hg] Freeman Sarabia PA-C Work Phone: [facility] 03-03-2023 09:32-0400 Body temperature 97.59 [degF] Freeman Sarabia PA-C Work Phone: [facility] 03-03-2023 09:32-0400 Diastolic blood pressure 79 mm[Hg] Freeman DUKE-C Work Phone: [facility] 03-03-2023 09:32-0400 Heart rate 83 /min Freeman DUKE-C Work Phone: [facility] 03-03-2023 09:32-0400 Respiratory rate 18 /min Freeman DUKE-C Work Phone: [facility] 03-03-2023 09:32-0400 SaO2% (BldA) [Mass fraction] 100 % Freeman DUKE-C Work Phone: [facility] 03-03-2023 09:32-0400 Systolic blood pressure 123 mm[Hg] Freeman DUKE-C Work Phone: [facility] 02-02-2023 10:35-0400 Diastolic blood pressure 66 mm[Hg] Min Velazco MD Work Phone: [facility] 02-02-2023 10:35-0400 Heart rate 66 /min Min Velazco MD Work Phone: [facility] 02-02-2023 10:35-0400 Respiratory rate 18 /min Min Velazco MD Work Phone: [facility] 02-02-2023 10:35-0400 Systolic blood pressure 107 mm[Hg] Min Velazco MD Work Phone: [facility] 02-02-2023 10:29-0400 Body temperature 97.9 [degF] Min Velazco MD Work Phone: [facility] 01-20-2023 09:28-0400 Body temperature 97 [degF] Freeman DUKE-C Work Phone: [facility] 01-20-2023 09:28-0400 Diastolic blood pressure 66 mm[Hg] Freeman DUKE-C Work Phone: [facility] 01-20-2023 09:28-0400 Heart rate 60 /min Freeamn Sarabia PA-C Work Phone: [facility] 01-20-2023 09:28-0400 Respiratory rate 18 /min Freeman Sarabia PA-C Work Phone: [facility] 01-20-2023 09:28-0400 SaO2% (BldA) [Mass fraction] 100 % Freeman DUKE-C Work Phone: [facility] 01-20-2023 09:28-0400 Systolic blood pressure 116 mm[Hg] Freeman DUKE-C Work Phone: [facility] 11-30-2022 13:32-0500 Body height 172.7 cm Min Velazco MD Work Phone: [facility] 11-30-2022 13:32-0500 Body temperature 97.11 [degF] Min Velazco MD Work Phone: [facility] 11-30-2022 13:32-0500 Body weight 88.91 kg Min Velazco MD Work Phone: [facility] 11-30-2022 13:32-0500 Diastolic blood pressure 67 mm[Hg] Min Velazco MD Work Phone: [facility] 11-30-2022 13:32-0500 Heart rate 67 /min Min Velazco MD Work Phone: [facility] 11-30-2022 13:32-0500 Respiratory rate 20 /min Min Velazco MD Work Phone: [facility] 11-30-2022 13:32-0500 SaO2% (BldA) [Mass fraction] 100 % Min Velazco MD Work Phone: [facility] 11-30-2022 13:32-0500 Systolic blood pressure 111 mm[Hg] Min Velazco MD Work Phone: [facility] 10-13-2022 13:32-0500 Body height 172.7 cm Freeman IBARRAC Work Phone: [facility] 10-13-2022 13:32-0500 Body temperature 97.59 [degF] Freeman DUKE-C Work Phone: [facility] 10-13-2022 13:32-0500 Body weight 88.91 kg Freeman DUKE-C Work Phone: [facility] 10-13-2022 13:32-0500 Diastolic blood pressure 67 mm[Hg] Freeman DUKE-C Work Phone: [facility] 10-13-2022 13:32-0500 Heart rate 64 /min Freeman IBARRAC Work Phone: [facility] 10-13-2022 13:32-0500 Respiratory rate 18 /min Freeman DUKE-C Work Phone: [facility] 10-13-2022 13:32-0500 SaO2% (BldA) [Mass fraction] 100 % Freeman IBARRAC Work Phone: [facility] 10-13-2022 13:32-0500 Systolic blood pressure 115 mm[Hg] Freeman DUKE-C Work Phone: [facility] 09-15-2022 11:03-0500 Diastolic blood pressure 66 mm[Hg] Min Velazco MD Work Phone: [facility] 09-15-2022 11:03-0500 Heart rate 62 /min Min Velazco MD Work Phone: [facility] 09-15-2022 11:03-0500 Respiratory rate 20 /min Min Velazco MD Work Phone: [facility] 09-15-2022 11:03-0500 Systolic blood pressure 111 mm[Hg] Min Velazco MD Work Phone: [facility] 09-15-2022 10:53-0500 Body temperature 97 [degF] Min Velazco MD Work Phone: [facility] 09-01-2022 14:06-0400 Body height 172.7 cm Freeman Sarabia PA-C Work Phone: [facility] 09-01-2022 14:06-0400 Body temperature 97.2 [degF] Freeman Sarabia PA-C Work Phone: [facility] 09-01-2022 14:06-0400 Body weight 89.81 kg Freeman Sarabia PA-C Work Phone: [facility] 09-01-2022 14:06-0400 Diastolic blood pressure 73 mm[Hg] Freeman Sarabia PA-C Work Phone: [facility] 09-01-2022 14:06-0400 Heart rate 73 /min Freeman Sarabia PA-C Work Phone: [facility] 09-01-2022 14:06-0400 Respiratory rate 20 /min Freeman Sarabia PA-C Work Phone: [facility] 09-01-2022 14:06-0400 SaO2% (BldA) [Mass fraction] 100 % Freeman Sarabia PA-C Work Phone: [facility] 09-01-2022 14:06-0400 Systolic blood pressure 119 mm[Hg] Freeman Sarabia PA-C Work Phone: [facility] 07-20-2022 14:19-0400 Body height 172.7 cm Freeman Sarabia PA-C Work Phone: [facility] 07-20-2022 14:19-0400 Body temperature 96.91 [degF] Freeman Sarabia PA-C Work Phone: [facility] 07-20-2022 14:19-0400 Body weight 89.81 kg Freeman Sarabia PA-C Work Phone: [facility] 07-20-2022 14:19-0400 Diastolic blood pressure 64 mm[Hg] Freeman Sarabia PA-C Work Phone: [facility] 07-20-2022 14:19-0400 Heart rate 63 /min Freeman Sarabia PA-C Work Phone: [facility] 07-20-2022 14:19-0400 Respiratory rate 20 /min Freeman Sarabia PA-C Work Phone: [facility] 07-20-2022 14:19-0400 SaO2% (BldA) [Mass fraction] 99 % Freeman Sarabia PA-C Work Phone: [facility] 07-20-2022 14:19-0400 Systolic blood pressure 103 mm[Hg] Freeman Sarabia PA-C Work Phone: [facility] 06-09-2022 13:38-0400 Body height 172.7 cm Freeman Sarabia PA-C Work Phone: [facility] 06-09-2022 13:38-0400 Body temperature 97.2 [degF] Freeman Sarabia PA-C Work Phone: [facility] 06-09-2022 13:38-0400 Body weight 89.81 kg Freeman Sarabia PA-C Work Phone: [facility] 06-09-2022 13:38-0400 Diastolic blood pressure 67 mm[Hg] Freeman Sarabia PA-C Work Phone: [facility] 06-09-2022 13:38-0400 Heart rate 61 /min Freeman Sarabia PA-C Work Phone: [facility] 06-09-2022 13:38-0400 Respiratory rate 20 /min Freeman Sarabia PA-C Work Phone: [facility] 06-09-2022 13:38-0400 SaO2% (BldA) [Mass fraction] 98 % Freeman Sarabia PA-C Work Phone: [facility] 06-09-2022 13:38-0400 Systolic blood pressure 105 mm[Hg] Freeman Sarabia PA-C Work Phone: [facility] 03-07-2022 13:46-0400 Body weight 89.81 kg Torres Yao MD Work Phone: [facility] 03-07-2022 13:46-0400 Diastolic blood pressure 70 mm[Hg] Torres Yao MD Work Phone: [facility] 03-07-2022 13:46-0400 Heart rate 76 /min Torres Yao MD Work Phone: [facility] 03-07-2022 13:46-0400 Systolic blood pressure 108 mm[Hg] Torres Yao MD Work Phone: [facility] 01-08-2022 19:56-0500 Body temperature 98.42 [degF] KANE GUT DO [facility] 01-08-2022 19:56-0500 Diastolic blood pressure 79 mm[Hg] KANE GUT DO [facility] 01-08-2022 19:56-0500 Heart rate 74 /min KANE GUT DO [facility] 01-08-2022 19:56-0500 Mean blood pressure 96 mm[Hg] KANE GUT DO [facility] 01-08-2022 19:56-0500 Respiratory rate 19 /min KANE GUT DO [facility] 01-08-2022 19:56-0500 Systolic blood pressure 130 mm[Hg] KANE GUT DO [facility] 08-13-2021 14:37-0400 Body temperature 98.42 [degF] KERRY NUNES DO [facility] 08-13-2021 14:37-0400 Diastolic blood pressure 76 mm[Hg] KERRY NUNES DO [facility] 08-13-2021 14:37-0400 Heart rate 73 /min KERRY NUNES DO [facility] 08-13-2021 14:37-0400 Mean blood pressure 92 mm[Hg] KERRY NUNES DO [facility] 08-13-2021 14:37-0400 Respiratory rate 18 /min KERRY NUNES DO [facility] 08-13-2021 14:37-0400 Systolic blood pressure 125 mm[Hg] KERRY NUNES DO [facility] Encounters Encounter Date Encounter Type Care Provider Facility Start: 09-02-2025 End: 09-02-2025 ambulatory Mahad Saleh Facility:[facility] Start: 08-11-2025 End: 08-11-2025 ambulatory ISAAC CANNON Facility:[id number] Start: 07-22-2025 End: 07-22-[address] Mahad Saleh MD -[facility] Work Phone: Start: 07-22-2025 End: 07-22-[address] Torres Yao MD Work Phone: -[facility] Start: 07-04-2025 Encounter for other preprocedural examination [facility] Start: 06-24-2025 End: 06-24-[address] Mahad Saleh MD -[facility] Work Phone: Start: 06-24-2025 End: 06-24-[address] oTrres Yao MD Work Phone: -[facility] Start: 06-13-2025 End: 06-13-[address] Mahad Saleh MD -[facility] Work Phone: Start: 06-13-2025 End: 06-13-[address] Torres Yao MD Work Phone: -[facility] Start: 06-11-2025 ambulatory Mahad Saleh Facility :[facility] Start: 06-11-2025 Non-patient / Non-visit Dr. Mahad molina MD -[facility] Start: 06-11-2025 End: 06-11-2025 Admission to same day surgery center Dr. Mahad Saleh [facility] Start: 06-11-2025 End: 06-11-[address] Torres Yao MD Work Phone: [facility] Start: 05-22-2025 End: 05-22-[address] Mahad Saleh MD -[facility] Work Phone: Start: 05-22-2025 End: 05-22-[address] Torres Yao MD Work Phone: -[facility] Start: 05-20-2025 End: 05-20-[address] Torres Yao MD Work Phone: [facility] Start: 05-20-2025 End: 05-20-[address] Mahad Saleh MD [facility] Work Phone: Start: 05-20-2025 End: 05-20-2025 amb[address] [facility] Facility:[facility] Start: 05-16-2025 End: 05-16-2025 Patient encounter procedure Torres Yao MD Work Phone: [facility] [place] Comment on above: Chronic insomnia (Pr imary Dx); Generalized anxiety disorder; Bipolar I disorder (HCC); Panic disorder Start: 05-16-2025 End: 05-16-2025 ambulatory [facility] Facility:[facility] Start: 05-15-2025 End: 05-15-2025 Patient encounter procedure Freeman Sarabia PA-C Work Phone: Pain Management Comment on above: Fibromyalgia (Primar y Dx); Bilateral shoulder region arthritis; Subacromial bursitis of both shoulders; Primary osteoarthritis of both knees; Sacroiliitis; Neuropathy involving both lower extremities; Generalized anxiety disorder Start: 05-15-2025 End: 05-15-2025 ambulatory FREEMAN SARABIA Facility:[id number] Start: 05-05-2025 End: 05-05-2025 Subsequent hospital visit by physician [facility] Comment on above: Urinary retention [R 33.9] Start: 05-05-2025 End: 05-05-2025 Follow-up encounter Ellen Rene APRN.RUFFLING MACHINE OPERATOR Work Phone: [facility] [place] Start: 05-05-2025 End: 05-05-2025 Office outpatient visit 15 minutes Ellen Rene APRN.RUFFLING MACHINE OPERATOR Work Phone: [facility] [place] Comment on above: Chronic pain syndrom e (Primary Dx); Fibromyalgia; Essential Hypertension, Benign; Urinary retention Start: 05-05-2025 End: 05-05-2025 ambulatory Torres Yao MD Work Phone: [facility] [place] Comment on above: Urinary Symptoms Start: 04-21-2025 End: 04-21-[address] Manuel Leary MD -[facility] Start: 04-21-2025 End: 04-21-[address] Torres Yao MD Work Phone: [facility] Work Phone: Start: 04-15-2025 End: 04-15-2025 Telephone encounter Freeman Sarabia PA-C Work Phone: Pain Management Start: 03-31-2025 End: 05-31-2025 Follow-up encounter Torres Yao MD Work Phone: [facility] [place] Start: 03-17-2025 End: 05-17-2025 Follow-up encounter Torres Yao MD Work Phone: [facility] [place] Start: 03-14-2025 ambulatory TORRES YAO Facility :[facility] Start: 03-14-2025 End: 03-14-2025 Subsequent hospital visit by physician Screen Mammo [facility] Comment on above: Encounter for screen ing mammogram for breast cancer [Z12.31] Start: 03-14-2025 End: 03-14-2025 Patient encounter procedure Torres Yao MD Work Phone: [facility] Comment on above: Fibromyalgia (Primar y Dx); Bipolar I disorder (HCC); 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); Neuropathy involving both lower extremities; Essential Hypertension, Benign; History of diabetes mellitus; Generalized anxiety disorder; Screening for colon cancer; Disorder of bone, unspecified Start: 03-14-2025 End: 03-14-2025 ambulatory TORRES YAO Facility:[facility] Start: 02-18-2025 End: 02-18-2025 ambulatory Freeman Sarabia [...] Start: 02-14-2025 End: 02-14-2025 ambulatory FREEMAN SARABIA Facility:[id number] Start: 02-04-2025 End: 02-04-2025 ambulatory TORRES YAO Facility:[facility] Start: 01-17-2025 End: 01-17-2025 ambulatory Joanna Gayle [facility] Comment on above: Subacromial bursitis of both shoulders (Primary Dx) Start: 01-14-2025 End: 02-14-2025 ambulatory Torres Yao MD [facility] Start: 01-09-2025 End: 01-09-2025 ambulatory Rachel Whiteside PTA Work Phone: [facility] Comment on above: Subacromial bursitis of both shoulders (Primary Dx); Bilateral shoulder region arthritis Start: 01-06-2025 End: 01-06-2025 ambulatory Joanna Lemon PT [facility] Comment on above: Subacromial bursitis of both shoulders (Primary Dx) Start: 01-03-2025 End: 01-03-2025 ambulatory [employer] Work Phone: [facility] Comment on above: Subacromial bursitis of both shoulders (Primary Dx); Bilateral shoulder region arthritis Start: 12-31-2024 End: 12-31-2024 ambulatory [employer] Work Phone: [facility] Comment on above: Subacromial bursitis of both shoulders (Primary Dx); Bilateral shoulder region arthritis Start: 12-27-2024 End: 12-27-2024 Refill Freeman Sarabia PA-C Work Phone: Pain Management Comment on above: Refill Request Start: 12-24-2024 End: 12-24-2024 ambulatory [employer] Work Phone: [facility] Comment on above: Subacromial bursitis of both shoulders (Primary Dx); Bilateral shoulder region arthritis Start: 12-11-2024 End: 12-11-2024 ambulatory [employer] Work Phone: [facility] Comment on above: Subacromial bursitis of both shoulders (Primary Dx); Bilateral shoulder region arthritis Start: 12-09-2024 End: 12-09-2024 ambulatory Rachel [employer] INTERNET DESIGNER Work Phone: [facility] Comment on above: Subacromial bursitis of both shoulders (Primary Dx); Bilateral shoulder region arthritis Start: 11-25-2024 End: 11-25-2024 ambulatory Joanna Lemon PT [facility] Comment on above: Subacromial bursitis [...] Start: 11-22-2024 End: 11-22-2024 ambulatory FREEMAN SARABIA Facility:[id number] Start: 09-24-2024 End: 09-24-2024 Telephone encounter Torres Yao MD Work Phone: [facility] Comment on above: Results Start: 09-23-2024 End: 09-23-2024 ambulatory TORRES YAO Facility:[facility] Start: 09-17-2024 ambulatory ISAAC Cortez ty:[id number] Start: 09-17-2024 End: 09-17-2024 Subsequent hospital visit by physician Isaac Cannon MD Work Phone: [facility] Comment on above: Subacromial bursitis of both shoulders [M75.51, M75.52] Start: 09-12-2024 End: 09-12-2024 ambulatory TORRES YAO Facility:[facility] Start: 09-12-2024 End: 09-12-2024 Office outpatient visit 25 minutes Ellen Rene APRN.CNP Work Phone: [facility] Comment on above: Chronic pain syndrom e [...] Start: 08-28-2024 End: 08-29-2024 ambulatory FREEMAN SARABIA Facility:[id number] Start: 08-07-2024 End: 08-07-2024 ambulatory Salvador Hailey PT Work Phone: [facility] Comment on above: Acute midline low ba ck pain without sciatica (Primary Dx) Start: 07-24-2024 End: 07-24-2024 ambulatory Salvador Hailey PT Work Phone: [facility] Comment on above: Acute midline low ba ck pain without sciatica (Primary Dx) Start: 07-16-2024 End: 07-16-2024 Refill Freeman Sarabia PA-C Work Phone: Pain Management Comment on above: Refill Request Start: 07-10-2024 End: 07-10-2024 ambulatory Salvador Hailey PT Work Phone: [facility] Comment on above: Acute midline low ba ck pain without sciatica (Primary Dx) Start: 07-04-2024 End: 07-04-2024 ambulatory Salvador Hailey PT Work Phone: [facility] Comment on above: Acute midline low ba ck pain without sciatica (Primary Dx) Start: 06-27-2024 End: 06-27-2024 ambulatory Rachel Whiteside INTERNET DESIGNER Work Phone: [facility] Comment on above: Acute midline low ba ck pain without sciatica (Primary Dx) Start: 06-21-2024 End: 06-21-2024 ambulatory TORRES YAO Facility:[facility] Start: 06-21-2024 End: 06-21-2024 Subsequent hospital visit by physician [facility] [place] Work Phone: Radiology Comment on above: Coccyx pain [M53.3] Start: 06-21-2024 End: 06-21-2024 Telephone encounter Torres Yao MD Work Phone: [facility] [place] Comment on above: Patient concern Start: 06-13-2024 End: 06-13-2024 ambulatory Salvador Hailey PT Work Phone: [facility] Comment on above: Acute midline low ba ck pain without sciatica (Primary Dx) Start: 06-13-2024 End: 06-13-2024 ambulatory TORRES YAO Facility:[facility] Start: 06-13-2024 End: 06-13-2024 Office outpatient visit 15 minutes Ellen Rene APRN.CNP Work Phone: [facility] Comment on above: Chronic pain syndrom e (Primary Dx); Fibromyalgia; Essential Hypertension, Benign; Lumbar strain, subsequent encounter Start: 06-03-2024 End: 06-03-2024 ambulatory Salvador Hart PT Work Phone: [facility] Comment on above: Acute midline low ba ck pain without sciatica (Primary Dx) Start: 05-23-2024 End: 05-23-2024 Patient encounter procedure Freeman Sarabia PA-C Work Phone: Pain Management Comment on above: Fibromyalgia (Primar y Dx); Sacroiliitis (HCC); Subacromial bursitis of both shoulders; Primary osteoarthritis of both knees; Generalized anxiety disorder; Neuropathy involving both lower extremities Start: 05-13-2024 Telephone encounter Freeman Sarabia PA-C Work Phone: Pain Management Comment on above: Patient Update (Incr eased pain) Start: 05-10-2024 Telephone encounter Ellen Rene APRN.CNP Work Phone: [facility] Comment on above: Results Start: 05-10-2024 End: 05-10-2024 Subsequent hospital visit by physician Xr [facility] [place] Work Phone: Radiology Comment on above: Acute right-sided lo w back pain without sciatica [M54.50] Start: 05-10-2024 End: 05-10-2024 Office outpatient visit 15 minutes Ellen Rene APRN.RUFFLING MACHINE OPERATOR Work Phone: [facility] Comment on above: Acute right-sided lo w back pain without sciatica (Primary Dx) Start: 03-27-2024 Refill Freeman nava PA-C Work Phone: Pain Management Comment on above: Refill Request Start: 03-21-2024 End: 03-21-2024 [facility] Freeman Sarabia PA-C Work Phone: Pain Management Comment on above: Fibromyalgia (Primar y Dx); Primary osteoarthritis of both knees; Sacroiliitis (HCC); Subacromial bursitis of both shoulders; Generalized anxiety disorder; Neuropathy involving both lower extremities Start: 03-11-2024 Refill Freeman IBARRAP21 Work Phone: Pain Management Comment on above: Refill Request Start: 03-04-2024 End: 03-04-2024 Patient encounter procedure Yomi Suarez MD Work Phone: 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; History of suicide attempt Start: 02-29-2024 End: 02-29-2024 Emergency department patient visit DR ANABEL TOLEDO MD Facility:[facility] Start: 02-29-2024 End: 02-29-2024 Emergency department patient visit DR ANABEL TOLEDO MD [facility] Start: 02-08-2024 Refill Freeman DUKEOverdog Work Phone: Pain Management Comment on above: [...] 01-29-2024 Subsequent hospital visit by physician Francisco [facility] [place] Work Phone: Radiology Comment on above: Rectal bleeding [K62 .5] Start: 01-29-2024 End: 01-29-2024 Patient encounter procedure Torres Yao MD Work Phone: [facility] [place] Comment on above: Rectal bleeding (Pat nima Dx); Chronic constipation; Abdominal discomfort Start: 01-15-2024 Refill Freemna nava PA-C Work Phone: Pain Management Comment [...] extremities Start: 12-15-2023 Refill Freeman Sarabia Pain Ma nagement Comment on above: Refill Request Start: 12-12-2023 Documentation procedure Mammog adarsh Coordinator [facility] Start: 12-12-2023 Letter encounter Mammography Coordinator [facility] Department Start: 12-11-2023 End: 12-11-2023 Subsequent hospital visit by physician Screen Mammo [facility] Comment on above: Encounter for screen ing mammogram for malignant neoplasm of breast [Z12.31] Start: 12-05-2023 End: 12-06-2023 ambulatory NELDA LOWE Facility:[facility] Start: 12-05-2023 End: 12-05-2023 Patient encounter procedure NELDA LOWE MD [facility] Start: 10-13-2023 End: 10-13-2023 Patient encounter procedure Torres Yao MD Work Phone: [facility] [place] Comment on above: Fibromyalgia (Primar y Dx); [...] shoulders; Neuropathy involving both lower extremities; 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 Start: 09-25-2023 Telephone encounter [...] disorder; Subacromial bursitis of both shoulders; 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 Start: 02-06-2023 Refill Freeman [...] 12-08-2022 Documentation procedure Mammog adarsh Coordinator [facility] Start: 12-08-2022 Letter encounter Mammography Coordinator [facility] Department Start: 12-08-2022 End: 12-08-2022 Subsequent hospital visit by physician Screen Mammo [facility] Comment on above: Screening [...] Telephone encounter Torres Yao MD Work Phone: [facility] Comment on above: Results Start: 09-16-2022 Refill Freeman nava PA-C Work Phone: Pain [...] knees; Generalized anxiety disorder; Sacroiliitis (HCC); 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; Subacromial bursitis of both [...] encounter procedure Torres Yao MD Work Phone: [facility] [place] Comment on above: Type 2 diabetes elvi itus without complication, with long-term current use of insulin (HCC) (Primary Dx); Bipolar I disorder (HCC); Essential hypertension, benign; Fibromyalgia; Acne, unspecified acne type Start: 01-31-2022 Telephone encounter Torres Yao MD Work Phone: [facility] [place] Comment on above: Glucometer New Presc ription Start: 01-19-2022 End: 01-19-2022 Subsequent hospital visit by physician Freeman Sarabia PA-C Work Phone[facility] Comment on above: FOLLOW UP Start: 01-08-2022 End: 01-08-2022 Emergency department patient visit KANE SHANIQUECESAR DO [facility] Start: 08-13-2021 End: 08-13-2021 Emergency department patient visit KERRY Min NUNES DO [facility] Procedures Date Procedure Procedure Detail Performing Clinician Start: 06-11-2025 Procedure on shoulder joint Dr. Torres Yao MD Work Phone: Start: 05-20-2025 MRI of joint of lowe r extremity Dr. Torres Yao MD Work Phone: Start: 05-05-2025 Us pelvic nonobstetr ic image dcmtn limited/f/u Ellen Rene DIGITAL PROJECT COORDINATOR.RUFFLING MACHINE OPERATOR Work Phone: Start: 05-05-2025 Urnls dip stick/tabl et reagent auto microscopy Ellen Rene DIGITAL PROJECT COORDINATOR.[facility] Work Phone: Start: 04-21-2025 Plain X-ray of shoulder Dr. Torres Yao MD Work Phone: Start: 09-23-2024 Lipid 1996 panel - S veronika or Plasma Freeman Sarabia PA-C Work Phone: Start: 09-17-2024 End: 09-17-2024 Arthrocentesis aspir&/inj major jt/bursa w/o us Isaac Cannon MD Work Phone: Start: 09-12-2024 Adult depression scr eening assessment Ellen Rene DIGITAL PROJECT COORDINATOR.[facility] Work Phone: Start: 06-21-2024 Radex sacrum & coccy x minimum 2 views Ellen Rene DIGITAL PROJECT COORDINATOR.[facility] Work Phone: Start: 05-10-2024 Radex spine lumbosac ral 2/3 views Ellen Rene DIGITAL PROJECT COORDINATOR.[facility] Work Phone: Start: 01-29-2024 Radiologic exam abdomen 1 view Torres Yao MD Work Phone: Start: 01-29-2024 HEMOCUE B/O Torres Yao MD Work Phone: Start: 01-04-2024 End: 01-04-2024 Arthrocentesis aspir&/inj major jt/bursa w/o Min Velazco MD Work Phone: Start: 08-29-2023 [...] Work Phone: Start: 11-10-2021 Mammography Freeman snyder PAAkua Work Phone: Start: 10-30-2019 Colonoscopy KERRY CONNELL DO Start: 06-04-2019 Electrocardiographic monitoring KERRY NUNES DO Comment on above: NSR Start: 04-13-2016 Adult depression scr eening assessment Freeman Sarabia PA-C Work Phone: Tonsillectomy and adenoidectomy KERRY NUNES DO Plan of Treatment Date Care Activity Detail Author Start: 01-09-2032 Urine microalbumin profile DTaP,Tdap,Td Vaccine (4 - Td or Tdap) [facility] Start: 09-23-2029 Lipid panel Lipid Screening [facility] Start: 03-25-2028 Screening for malign ant neoplasm of colon [facility] Start: 09-23-2027 Diabetes Screening Diabetes Screenin g [facility] Start: 05-16-2026 Annual PCP Team Associate Software Application Engineer francisco Disease Visit Annual PCP Team Chronic Disease Visit [facility] Start: 05-05-2026 Annual PCP Team Associate Software Application Engineer francisco Disease Visit Annual PCP Team Chronic Disease Visit [facility] Start: 03-14-2026 Annual PCP Team Associate Software Application Engineer francisco Disease Visit Annual PCP Team Chronic Disease Visit [facility] Start: 03-14-2026 Screening for malign ant neoplasm of breast Mammogram Screening [facility] Start: 11-25-2025 BP Controlled (<130/80) BP Controlle d (<130/80) [facility] Start: 10-01-2025 End: 10-01-2025 Patient encounter procedure 10/01/2025 10:00 AM EST [facility] Visit [facility] [place] [address] [facility] [place] [address] Torres Yao MD [address] [facility] [address] 6 mo follow up [facility] [place] Comment on above: 6 mo follow up Start: 09-14-2025 End: 12-14-2025 25-hydroxyvitamin D3 [Mass/volume] in Serum or Plasma VITAMIN D 25 HYDROXY Lab Routine Fibromyalgia Disorder of bone, unspecified Expected: 09/14/2025, Expires: 12/14/2025 [facility] Comment on above: Expected: 09/14/2025 , Expires: 12/14/2025 Start: 09-14-2025 End: 12-14-2025 CBC W Auto Differential panel - Blood COMPLETE BLOOD COUNT AND DIFFERENTIAL Lab Routine Essential Hypertension, Benign Expected: 09/14/2025, Expires: 12/14/2025 [facility] Work Phone: Comment on above: Expected: 09/14/2025 , Expires: 12/14/2025 Start: 09-14-2025 End: 12-14-2025 Comprehensive metabolic 2000 panel - Serum or Plasma COMPREHENSIVE METABOLIC PANEL Lab Routine Essential Hypertension, Benign Expected: 09/14/2025, Expires: 12/14/2025 [facility] Comment on above: Expected: 09/14/2025 , Expires: 12/14/2025 Start: 09-14-2025 End: 12-14-2025 Hemoglobin A1c in Blood HEMOGLOBIN A1C Lab Routine History of diabetes mellitus Expected: 09/14/2025, Expires: 12/14/2025 [facility] Comment on above: Expected: 09/14/2025 , Expires: 12/14/2025 Start: 09-14-2025 End: 12-14-2025 Lipid 1996 panel - Serum or Plasma LIPID PANEL, FASTING Lab Routine Essential Hypertension, Benign Expected: 09/14/2025, Expires: 12/14/2025 [facility] Comment on above: Expected: 09/14/2025 , Expires: 12/14/2025 Start: 09-14-2025 End: 12-14-2025 Thyrotropin [Units/volume] in Serum or Plasma THYROID STIMULATING HORMONE Lab Routine Generalized anxiety disorder Expected: 09/14/2025, Expires: 12/14/2025 [facility] Comment on above: Expected: 09/14/2025 , Expires: 12/14/2025 Start: 09-12-2025 Annual PCP Team Associate Software Application Engineer francisco Disease Visit Annual PCP Team Chronic Disease Visit [facility] Start: 09-12-2025 BP Controlled (<130/80) BP Controlle d (<130/80) [facility] Start: 09-12-2025 Covid-19 Vaccine () Covid-19 Vaccine () [facility] Comment on above: Postponed from 06/30 (Declined at this time) Start: 09-12-2025 Depression Screening Depression Scre ening [facility] Start: 09-12-2025 Hepatitis B Vaccine (1 of 3 - 19+ 3-dose series) Hepatitis B Vaccine (1 of 3 - 19+ 3-dose series) [facility] Comment on above: Postponed from 10/02 (Declined at this time) Start: 09-12-2025 Screening for malign ant neoplasm of cervix Cervical Cancer Screening [facility] Comment on above: Postponed from 07/27 (Declined at this time) Start: 08-11-2025 End: 08-11-2025 Patient encounter procedure 08/11/2025 2:00 PM EDT Office Visit Pain Management [address] [place] [address] Isaac Cannon MD [address] [place] [address] Follow Up Pain Management Comment on above: Follow Up Start: 07-29-2025 Registered Recurring Registered Recu rring -Physical Therapy Work Phone: Start: 07-27-2025 HPV TESTING HPV TESTING [facility] Start: 07-27-2025 Screening for malign ant neoplasm of cervix HPV Testing [facility] Start: 06-30-2025 Influenza vaccination [facility] Start: 06-13-2025 BP Controlled (<130/80) BP Controlle d (<130/80) [facility] Start: 06-11-2025 Anes arthrs humeral h/n strnclav & shoulder nos ANESTH SURGERY OF SHOULDER [facility] Start: 06-11-2025 Anterior decompressi on of shoulder joint KOREY ARTHRS SRG DECOMPRESSION [facility] Start: 06-11-2025 Arthroscopy of shoul erick with biceps tenodesis KOREY ARTHRS SRG RT8TR CUF RPR [facility] Start: 06-11-2025 Arthroscopy shoulder rotator cuff repair KOREY ARTHRS SRG RT8TR CUF R [facility] Start: 06-11-2025 Arthroscopy shoulder w/coracoacrm ligmnt release [facility] ARTHRS SRG DECOMPRESSION [facility] Start: 06-11-2025 Injection aa&/strd brachial plexus NJX AA&/STRD BRCH PLXS IMG [facility] Start: 06-11-2025 Patient discharge [facility] Start: 06-11-2025 Application of device [facility] Start: 06-11-2025 Application of ice collar, cap or bag [facility] Start: 06-11-2025 Assessment of risk o f venous thromboembolism [facility] Start: 06-11-2025 Catheterization of vein [facility] Start: 06-11-2025 Continuous positive airway pressure ventilation treatment [facility] Start: 06-11-2025 Following clinical pathway protocol [facility] Start: 06-11-2025 Incentive spirometry [facility] Start: 06-11-2025 Introduction of urin lori catheter [facility] Start: 06-11-2025 Vital signs measurements [facility] Start: 06-11-2025 End: 06-11-2025 [facility] Start: 05-23-2025 BP Controlled (<130/80) BP Controlle d (<130/80) [facility] Start: 05-16-2025 End: 05-16-2025 Patient encounter procedure 05/16/2025 1:40 PM EDT Office Visit [facility] [address] [place] [address] Torres Yao MD [address] [place] [address] pt feels a bit anxious tried reaching therapist on maternity leave [facility] [place] Comment on above: pt feels a bit anxio us tried reaching therapist on maternity leave Start: 05-15-2025 End: 05-15-2025 Patient encounter procedure Pain Management Comment on above: Follow Up Start: 05-10-2025 BP Controlled (<130/80) BP Controlle d (<130/80) [facility] Start: 04-28-2025 Influenza vaccination Influenza Vacc ine (#1) [facility] Comment on above: Postponed from 06/30 (Declined at this time) Start: 04-21-2025 Plain X-ray of shoulder Shoulder min 2 Views [facility] Start: 04-21-2025 XR Shoulder GE 2 Views [facility] Start: 03-14-2025 End: 03-14-2025 Patient encounter procedure 03/14/2025 10:00 AM EDT Office Visit [facility] [place] [address] [place] [address] Torres Yao MD [address] [place] [address] 6 month f/u [facility] [place] [facility] Comment on above: 6 month f/u Start: 03-04-2025 Annual PCP Team Associate Software Application Engineer francisco Disease Visit Annual PCP Team Chronic Disease Visit [facility] Start: 03-04-2025 BP Controlled (<130/80) BP Controlle d (<130/80) [facility] Start: 02-14-2025 End: 02-14-2025 Patient encounter procedure 02/14/2025 1:30 PM EDT Office Visit Pain Management [address] [place] [address] Freeman Sarabia PAAkua [address] [place] [address] Follow Up Pain Management Comment on above: Follow Up Start: 02-03-2025 End: 02-03-2025 ambulatory 02/03/2025 4:00 PM EDT OT/PT/Speech Visit [facility] [address] [place], [place] [id number] Joanna Rey, PT Rupture of anterior cruciate ligament of right knee, subsequent encounter [S83.511D (ICD-10-CM [facility] Comment on above: Rupture of anterior cruciate ligament of right knee, subsequent encounter [S83.511D (ICD-10-CM Start: 01-28-2025 Annual PCP Team Associate Software Application Engineer francisco Disease Visit Annual PCP Team Chronic Disease Visit [facility] Start: 01-28-2025 BP Controlled (<130/80) BP Controlle d (<130/80) [facility] Start: 01-17-2025 End: 01-17-2025 ambulatory 01/17/2025 1:00 PM EDT OT/PT/Speech Visit [facility] [address] [place] [address] Lemon, Joanna, PT Subacromial bursitis of both shoulders [M75.51, M75.52] [facility] Comment on above: Subacromial bursitis of both shoulders [M75.51, M75.52] Start: 01-13-2025 End: 01-13-2025 ambulatory 01/13/2025 12:00 PM EDT OT/PT/Speech Visit [facility] [address] [place] [address] Lemon, Joanna, PT Subacromial bursitis of both shoulders [M75.51, M75.52] [facility] Comment on above: Subacromial bursitis of both shoulders [M75.51, M75.52] Start: 01-09-2025 End: 01-09-2025 ambulatory 01/09/2025 11:00 AM EDT OT/PT/Speech Visit [facility] [address] [place] [address] KasRachel quezada, INTERNET DESIGNER [address] [place] [address] Subacromial bursitis of both shoulders [M75.51, M75.52] [facility] Comment on above: Subacromial bursitis of both shoulders [M75.51, M75.52] Start: 01-06-2025 End: 01-06-2025 ambulatory 01/06/2025 12:00 PM EDT OT/PT/Speech Visit [facility] [address] [place] [address] Joanna Rey, PT Subacromial bursitis of both shoulders [M75.51, M75.52] [facility] Comment on above: Subacromial bursitis of both shoulders [M75.51, M75.52] Start: 01-03-2025 End: 01-03-2025 ambulatory 01/03/2025 11:00 AM EST OT/PT/Speech Visit [facility] [address] [place] [address] Rachel Whiteside, INTERNET DESIGNER [address] [place] [address] Subacromial bursitis of both shoulders [M75.51, M75.52] [facility] Comment on above: Subacromial bursitis of both shoulders [M75.51, M75.52] Start: 12-31-2024 End: 12-31-2024 ambulatory 12/31/2024 11:45 AM EST OT/PT/Speech Visit [facility] [address] [place] [address] Rachel Whiteside, INTERNET DESIGNER [address] [place] [address] Subacromial bursitis of both shoulders [M75.51, M75.52] [facility] Comment on above: Subacromial bursitis of both shoulders [M75.51, M75.52] Start: 12-24-2024 End: 12-24-2024 ambulatory 12/24/2024 2:45 PM EST OT/PT/Speech Visit [facility] [address] [place] [address] Rachel Whiteside, INTERNET DESIGNER [address] [place] [address] Subacromial bursitis of both shoulders [M75.51, M75.52] [facility] Comment on above: Subacromial bursitis of both shoulders [M75.51, M75.52] Start: 12-22-2024 BP Controlled (<130/80) BP Controlle d (<130/80) [facility] Start: 12-19-2024 End: 12-19-2024 ambulatory 12/19/2024 11:00 AM EST OT/PT/Speech Visit [facility] [address] [place] [address] Rachel Whiteside, INTERNET DESIGNER [address] [place] [address] shoulder pain [facility] Comment on above: shoulder pain Start: 12-11-2024 End: 12-11-2024 ambulatory 12/11/2024 2:45 PM EST OT/PT/Speech Visit [facility] [address] [place] [address] Rachel Whiteside, INTERNET DESIGNER [address] [place] [address] shoulder pain [facility] Comment on above: shoulder pain Start: 12-11-2024 Screening for malign ant neoplasm of breast Mammogram Screening [facility] Start: 11-22-2024 End: 11-22-2024 Patient encounter procedure 11/22/2024 11:30 AM EST Office Visit Pain Management [address] [facility] [address] Freeman Sarabia PA-C [address] [facility] [place] [address] Follow Up Pain Management Comment on above: Follow Up Start: 11-10-2024 BP Controlled (<130/80) BP Controlle d (<130/80) [facility] Start: 12-15-2024 Annual PCP Team Associate Software Application Engineer francisco Disease Visit Annual PCP Team Chronic Disease Visit [facility] Start: 10-13-2024 BP Controlled (<130/80) BP Controlle d (<130/80) [facility] Start: 10-13-2024 Covid-19 Vaccine ( season) Covid-19 Vaccine () [facility] Comment on above: Postponed from 06/30 (Declined at this time) Start: 2024 Screening for malign ant neoplasm of colon [facility] Start: 09-28-2024 BP Controlled (<130/80) BP Controlle d (<130/80) [facility] Start: 09-17-2024 End: 09-17-2024 Admission to same day surgery center 09/17/2024 1:00 PM EST - 09/17/2024 1:15 PM EST Surgery [facility] [address] [place] [address] Isaac Cannon MD [address] [place] [address] ARTHROCENTESIS,ASPIRATIO N AND/OR INJECTION,MAJOR JOINT OR BURSA W/O US GUIDANCE (Subacromial bursas) [facility] Comment on above: ARTHROCENTESIS,ASPIR ATION AND/OR INJECTION,MAJOR JOINT OR BURSA W/O US GUIDANCE (Subacromial bursas) Start: 09-17-2024 End: 09-17-2024 Arthrocentesis aspir&/inj major jt/bursa w/o us ARTHROCENTESIS,ASPIRATIO N AND/OR INJECTION,MAJOR JOINT OR BURSA W/O US GUIDANCE Subacromial bursitis of both shoulders 09/17/2024 1:00 PM EST MR [facility] Start: 09-17-2024 Subsequent hospital visit by physician 09/17/2024 1:00 PM EST Hospital Encounter [facility] [address] [place] [address] Isaac Cannon MD [address] [place] [address] Subacromial bursitis of both shoulders [M75.51, M75.52] [facility] Comment on above: Subacromial bursitis of both shoulders [M75.51, M75.52] Start: 09-12-2024 End: 12-12-2024 CBC W Auto Differential panel - Blood COMPLETE BLOOD COUNT AND DIFFERENTIAL Lab Routine Chronic pain syndrome History of diabetes mellitus Expected: 09/12/2024, Expires: 12/12/2024 [facility] Comment on above: Expected: 09/12/2024 , Expires: 12/12/2024 Start: 09-12-2024 End: 12-12-2024 Cobalamin (Vitamin B12) [Mass/volume] in Serum or Plasma VITAMIN B12 Lab Routine Chronic pain syndrome History of diabetes mellitus Expected: 09/12/2024, Expires: 12/12/2024 [facility] Comment on above: Expected: 09/12/2024 , Expires: 12/12/2024 Start: 09-12-2024 End: 12-12-2024 Comprehensive metabolic 2000 panel - Serum or Plasma COMPREHENSIVE METABOLIC PANEL Lab Routine Chronic pain syndrome History of diabetes mellitus Essential Hypertension, Benign Expected: 09/12/2024, Expires: 12/12/2024 [facility] Work Phone: Comment on above: Expected: 09/12/2024 , Expires: 12/12/2024 Start: 09-12-2024 End: 12-12-2024 Hemoglobin A1c in Blood HEMOGLOBIN A1C Lab Routine Chronic pain syndrome History of diabetes mellitus Expected: 09/12/2024, Expires: 12/12/2024 [facility] Comment on above: Expected: 09/12/2024 , Expires: 12/12/2024 Start: 09-12-2024 End: 12-12-2024 LIPID PANEL, NONFASTING LIPID PANEL, NONFASTING Lab Routine Chronic pain syndrome History of diabetes mellitus Encounter for lipid screening for cardiovascular disease Expected: 09/12/2024, Expires: 12/12/2024 [facility] Comment on above: Expected: 09/12/2024 , Expires: 12/12/2024 Start: 09-12-2024 End: 12-12-2024 Magnesium [Mass/volume] in Serum or Plasma MAGNESIUM Lab Routine Chronic pain syndrome History of diabetes mellitus Expected: 09/12/2024, Expires: 12/12/2024 [facility] Comment on above: Expected: 09/12/2024 , Expires: 12/12/2024 Start: 09-12-2024 End: 12-12-2024 Microalbumin/Creatinine [Mass Ratio] in Urine ALBUMIN/CREATININE RATIO, URINE Lab Routine History of diabetes mellitus Expected: 09/12/2024, Expires: 12/12/2024 [facility] Comment on above: Expected: 09/12/2024 , Expires: 12/12/2024 Start: 09-12-2024 End: 12-12-2024 Thyrotropin [Units/volume] in Serum or Plasma THYROID STIMULATING HORMONE Lab Routine Chronic pain syndrome History of diabetes mellitus Expected: 09/12/2024, Expires: 12/12/2024 [facility] Comment on above: Expected: 09/12/2024 , Expires: 12/12/2024 Start: 09-12-2024 End: 09-12-2024 Patient encounter procedure 09/12/2024 10:00 AM EST Office Visit [facility] [place] [address] [place] [address] Ellen Rene APRN.RUFFLING MACHINE OPERATOR [address] [place], [place] [address] 3 month lumbar spine f/u [facility] Comment on above: 3 month lumbar spine f/u Start: 08-28-2024 End: 08-28-2024 Patient encounter procedure 08/28/2024 1:30 PM EDT Office Visit Pain Management [address] [place] [address] Freeman Sarabia PA-C [address] [place] [address] Follow up Pain Management Comment on above: Follow up Start: 08-25-2024 BP Controlled (<130/80) BP Controlle d (<130/80) [facility] Start: 08-07-2024 End: 08-07-2024 ambulatory 08/07/2024 11:30 AM EDT OT/PT/Speech Visit [facility] [address] [place], [place] [address] Salvador Hart, PT [address] [place], [place] [id number] M54.50 (ICD-10-CM) - Acute midline low back pain without sciatica [facility] Comment on above: M54.50 (ICD-10-CM) - Acute midline low back pain without sciatica Start: 07-24-2024 End: 07-24-2024 ambulatory 07/24/2024 11:30 AM EDT OT/PT/Speech Visit [facility] [address] [place], [place] [id number] Salvador Hart, PT [address] [place], [place] [id number] M54.50 (ICD-10-CM) - Acute midline low back pain without sciatica [facility] Comment on above: M54.50 (ICD-10-CM) - Acute midline low back pain without sciatica Start: 07-13-2024 BP Controlled (<130/80) BP Controlle d (<130/80) [facility] Start: 07-10-2024 End: 07-10-2024 ambulatory 07/10/2024 3:00 PM EDT OT/PT/Speech Visit [facility] [address] [place], [place] [address] Salvador Hart, PT [address] [place], [place] [id number] M54.50 (ICD-10-CM) - Acute midline low back pain without sciatica [facility] Comment on above: M54.50 (ICD-10-CM) - Acute midline low back pain without sciatica Start: 07-04-2024 End: 07-04-2024 Documentation procedure 07/04/2024 Plan of Care Documentation [facility] [address] [place] [address] [facility] Start: 07-04-2024 End: 07-04-2024 ambulatory 07/04/2024 10:45 AM EDT OT/PT/Speech Visit [facility] [address] [place] [address] Salvador Hart, PT [address] [facility] [place] [place] [address] Acute midline low back pain without sciatica [M54.50] [facility] Comment on above: Acute midline low ba ck pain without sciatica [M54.50] Start: 06-30-2024 Covid-19 Vaccine ( season) Covid-19 Vaccine () [facility] Start: 06-30-2024 Covid-19 Vaccine () Covid-19 Vaccine () [facility] Start: 06-30-2024 Influenza vaccination C [facility] Start: 06-27-2024 End: 06-27-2024 ambulatory 06/27/2024 10:15 AM EDT OT/PT/Speech Visit [facility] [address] [place] [address] Rachel Whiteside, INTERNET DESIGNER [address] [place] [address] Acute midline low back pain without sciatica [M54.50] [facility] Comment on above: Acute midline low ba ck pain without sciatica [M54.50] Start: 06-21-2024 End: 07-21-2025 XR Sacrum and Coccyx 3 Views [facility] Work Phone: Comment on above: Expected: 06/21/2024 , Expires: 07/21/2025 Start: 06-20-2024 End: 06-20-2024 ambulatory 06/20/2024 10:15 AM EDT OT/PT/Speech Visit [facility] [address] [place] [address] Rashaad Rachel, INTERNET DESIGNER [address] [place] [address] Acute midline low back pain without sciatica [M54.50] [facility] Comment on above: Acute midline low ba ck pain without sciatica [M54.50] Start: 06-13-2024 End: 06-13-2024 ambulatory 06/13/2024 2:15 PM EDT OT/PT/Speech Visit [facility] [address] [place] [address] Salvador Hart, PT [address] [place] [address] Acute midline low back pain without sciatica [M54.50] [facility] Comment on above: Acute midline low ba ck pain without sciatica [M54.50] Start: 06-13-2024 End: 06-13-2024 Patient encounter procedure 06/13/2024 11:20 AM EDT Office Visit Family [facility] [address] [place] [address] Ellen Rene APRN.RUFFLING MACHINE OPERATOR [address] [place] [address] 1 month f/u Family [facility] Comment on above: 1 month f/u Start: 06-03-2024 End: 06-03-2024 ambulatory 06/03/2024 10:00 AM EDT OT/PT/Speech Visit [facility] [address] [facility] [address] Salvador Hart, PT [address] [place] [address] Acute midline low back pain without sciatica [M54.50] [facility] Comment on above: Acute midline low ba ck pain without sciatica [M54.50] Start: 05-26-2024 Urine microalbumin profile [facility] Start: 05-23-2024 End: 05-23-2024 Patient encounter procedure 05/23/2024 1:30 PM EDT Office Visit Pain Management [address] [place] [address] Freeman Sarabia PA-C [address] [place] [address] follow up Pain Management Comment on above: follow up Start: 04-28-2024 Influenza vaccination Influenza Vacc ine (#1) [facility] Comment on above: Postponed from 06/30 (Declined at this time) Start: 04-19-2024 End: 04-19-2024 Patient encounter procedure 04/19/2024 10:20 AM EDT Office Visit [facility] [place] [address] [place], [place] [id number] Torres Yao MD [address] [place], [place] [id number] 6 mth f/u [facility] [place] Comment on above: 6 mth f/u Start: 04-12-2024 ANNUAL PCP TEAM HEALTH SAFETY COORDINATOR FRANCISCO DISEASE VISIT ANNUAL PCP TEAM CHRONIC DISEASE VISIT [facility] Start: 04-12-2024 COVID-19 VACCINE (3 - Booster for Kamala series) COVID-19 VACCINE (3 - Booster for Kamala series) [facility] Comment on above: Postponed from 12/23 (Declined at this time) Start: 04-12-2024 HEPATITIS B (1 of 3 - 3-dose series) HEPATITIS B (1 of 3 - 3-dose series) [facility] Comment on above: Postponed from 10/02 (Declined at this time) Start: 04-12-2024 Hepatitis B Vaccine (1 of 3 - 19+ 3-dose series) Hepatitis B Vaccine (1 of 3 - 19+ 3-dose series) [facility] Comment on above: Postponed from 10/02 (Declined at this time) Start: 04-12-2024 Hepatitis B Vaccine (1 of 3 - 3-dose series) Hepatitis B Vaccine (1 of 3 - 3-dose series) [facility] Comment on above: Postponed from 10/02 (Declined at this time) Start: 04-12-2024 PNEUMOCOCCAL (2 - PCV) PNEUMOCOCCAL (2 - PCV) [facility] Comment on above: Postponed from 10/21 (Declined at this time) Start: 04-12-2024 Pneumococcal vaccination Pneum ococcal Vaccine (2 - PCV) [facility] Comment on above: Postponed from 10/21 (Declined at this time) Start: 03-20-2024 End: 03-20-2024 Patient encounter procedure 03/20/2024 1:15 PM EDT Office Visit Pain Management [address] [place] [address] Freeman Sarabia PA-C [address] [place] [address] FOLLOWUP Pain Management Comment on above: FOLLOWUP Start: 03-03-2024 BP CONTROLLED (<130/80) BP CONTROLLE D (<130/80) [facility] Start: 01-21-2024 BP CONTROLLED (<130/80) BP CONTROLLE D (<130/80) [facility] Start: 12-08-2023 Mammography [facility] Start: 12-08-2023 Screening for malign ant neoplasm of breast Mammogram Screening [facility] Start: 11-30-2023 BP CONTROLLED (<130/80) BP CONTROLLE D (<130/80) [facility] Start: 10-30-2023 Behavioral Health Screening Behavioral Health Screening [facility] Start: 10-30-2023 Depression Assessment Depression Ass essment [facility] Start: 10-13-2023 End: 10-13-2024 BINTA BY IFA SCREEN [facility] Work Phone: Comment on above: Expected: 10/13/2023 , Expires: 10/13/2024 Start: 10-13-2023 BP CONTROLLED (<130/80) BP CONTROLLE D (<130/80) [facility] Start: 10-13-2023 End: 10-13-2024 C reactive protein [Mass/volume] in Serum or Plasma [facility] Work Phone: Comment on above: Expected: 10/13/2023 , Expires: 10/13/2024 Start: 10-13-2023 End: 01-12-2024 Cobalamin (Vitamin B12) [Mass/volume] in Serum or Plasma [facility] Work Phone: Comment on above: Expected: 10/13/2023 , Expires: 01/12/2024 Start: 10-13-2023 End: 01-12-2024 Comprehensive metabolic 2000 panel - Serum or Plasma [facility] Work Phone: Comment on above: Expected: 10/13/2023 , Expires: 01/12/2024 Start: 10-13-2023 End: 01-12-2024 Folate [Mass/volume] in Serum or Plasma [facility] Work Phone: Comment on above: Expected: 10/13/2023 , Expires: 01/12/2024 Start: 10-13-2023 End: 01-12-2024 Hemoglobin A1c in Blood [facility] Work Phone: Comment on above: Expected: 10/13/2023 , Expires: 01/12/2024 Start: 10-13-2023 End: 01-12-2024 PROTEIN ELECTROPHORESIS SERUM W/INTERP [facility] Work Phone: Comment on above: Expected: 10/13/2023 , Expires: 01/12/2024 Start: 10-13-2023 End: 10-13-2024 Rheumatoid factor [Units/volume] in Serum or Plasma [facility] Work Phone: Comment on above: Expected: 10/13/2023 , Expires: 10/13/2024 Start: 10-13-2023 End: 01-12-2024 Thyrotropin [Units/volume] in Serum or Plasma [facility] Work Phone: Comment on above: Expected: 10/13/2023 , Expires: 01/12/2024 Start: 09-28-2023 End: 12-28-2023 TOXASSURE FLEX 23, URINE TOXASSURE FLEX 23, URINE Lab Routine 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 Primary osteoarthritis of both knees Expected: 09/28/2023, Expires: 12/28/2023 [facility] Work Phone: Comment on above: Expected: 09/28/2023 , Expires: 12/28/2023 Start: 09-19-2023 Hepatitis B surface antibody level LDL CHOLESTEROL [facility] Start: 09-08-2023 ANNUAL PCP TEAM HEALTH SAFETY COORDINATOR FRANCISCO DISEASE VISIT ANNUAL PCP TEAM CHRONIC DISEASE VISIT [facility] Start: 09-01-2023 BP CONTROLLED (<130/80) BP CONTROLLE D (<130/80) [facility] Start: 07-27-2023 PAP TESTING PAP TESTING [facility] Start: 07-27-2023 Screening for malign ant neoplasm of cervix [facility] Start: 07-20-2023 BP CONTROLLED (<130/80) BP CONTROLLE D (<130/80) [facility] Start: 06-30-2023 Covid-19 Vaccine () Covid-19 Vaccine () [facility] Start: 06-30-2023 Influenza vaccination [facility] Start: 06-09-2023 BP CONTROLLED (<130/80) BP CONTROLLE D (<130/80) [facility] Start: 04-28-2023 Influenza vaccination INFLUENZA (#1) [facility] Comment on above: Postponed from 06/30 (Declined at this time) Start: 03-19-2023 Hemoglobin A1c/Hemoglobin.total in Blood HBA1C [facility] Start: 03-10-2023 Hepatitis B screening URINE AL BUMIN:CREATININE RATIO [facility] Start: 03-10-2023 Hepatitis C antibody , confirmatory test DILATED RETINAL EXAM [facility] Start: 03-07-2023 ANNUAL PCP TEAM HEALTH SAFETY COORDINATOR FRANCISCO DISEASE VISIT ANNUAL PCP TEAM CHRONIC DISEASE VISIT [facility] Start: 03-07-2023 BP CONTROLLED (<130/80) BP CONTROLLE D (<130/80) [facility] Start: 03-03-2023 End: 05-03-2023 TOXASSURE FLEX 23, URINE TOXASSURE FLEX 23, URINE Lab Routine Primary osteoarthritis of both knees 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 Expected: 03/03/2023, Expires: 05/03/2023 [facility] Work Phone: Comment on above: Expected: 03/03/2023 , Expires: 05/03/2023 Start: 11-10-2022 Mammography MAMMOGRAM [facility] Start: 10-30-2022 DEPRESSION ASSESSMENT DEPRESSION ASS ESSMENT [facility] Start: 09-21-2022 End: 11-21-2022 POTASSIUM BLD POTASSIUM BLD Lab Routine Hypokalemia Expected: 09/21/2022, Expires: 11/21/2022 [facility] Work Phone: Comment on above: Expected: 09/21/2022 , Expires: 11/21/2022 Start: 09-19-2022 3 comp foot exam completed DIABETIC FOOT EXAM [facility] Start: 09-13-2022 Hepatitis B surface antibody level LDL CHOLESTEROL [facility] Start: 09-07-2022 Hemoglobin A1c/Hemoglobin.total in Blood HBA1C [facility] Start: 09-06-2022 ANNUAL PCP TEAM HEALTH SAFETY COORDINATOR FRANCISCO DISEASE VISIT ANNUAL PCP TEAM CHRONIC DISEASE VISIT [facility] Start: 09-01-2022 End: 11-01-2022 DRUG SCR TOXASURE DRUG SCR TOXASURE Lab Routine Primary osteoarthritis of both knees 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 Expected: 09/01/2022, Expires: 11/01/2022 [facility] Work Phone: Comment on above: Expected: 09/01/2022 , Expires: 11/01/2022 Start: 06-30-2022 Influenza vaccination C [facility] Start: 04-28-2022 Influenza vaccination INFLUENZA (#1) [facility] Comment on above: Postponed from 06/30 (Declined at this time) Start: 03-13-2022 Hemoglobin A1c/Hemoglobin.total in Blood HBA1C [facility] Start: 03-07-2022 End: 05-07-2022 ALBUMIN/CREAT RATIO RND UR ALBUMIN/CREAT RATIO RND UR Lab Routine Type 2 diabetes mellitus without complication, with long-term current use of insulin (HCC) Expected: 03/07/2022, Expires: 05/07/2022 [facility] Work Phone: Comment on above: Expected: 03/07/2022 , Expires: 05/07/2022 Start: 03-07-2022 End: 05-07-2022 Basic metabolic 2000 panel - Serum or Plasma [facility] Work Phone: Comment on above: Expected: 03/07/2022 , Expires: 05/07/2022 Start: 03-07-2022 End: 05-07-2022 Hemoglobin A1c/Hemoglobin.total in Blood [facility] Work Phone: Comment on above: Expected: 03/07/2022 , Expires: 05/07/2022 Start: 03-05-2022 3 comp foot exam completed DIABETIC FOOT EXAM [facility] Start: 02-26-2022 COVID-19 VACCINE (3 - Booster for Kamala series) COVID-19 VACCINE (3 - Booster for Kamala series) [facility] Start: 02-24-2022 Hepatitis B screening URINE AL BUMIN:CREATININE RATIO [facility] Start: 12-23-2021 COVID-19 VACCINE (3 - Booster for Kamala series) COVID-19 VACCINE (3 - Booster for Kamala series) [facility] Start: 10-30-2021 DEPRESSION ASSESSMENT DEPRESSION ASS ESSMENT [facility] Start: 10-06-2021 Hepatitis C antibody , confirmatory test DILATED RETINAL EXAM [facility] Start: 04-13-2017 Adult depression screening assessment DEPRESSION SCREENING [facility] Start: 10-21-2014 PNEUMOCOCCAL (2 - PCV) PNEUMOCOCCAL (2 - PCV) [facility] Start: 05-30-2001 Medicare Annual Well ness Visit Medicare Annual Wellness Visit [facility] Start: 1998 HEPATITIS B (1 of 3 - Risk 3-dose series) HEPATITIS B (1 of 3 - Risk 3-dose series) [facility] Start: 1998 Hepatitis B Vaccine (1 of 3 - 19+ 3-dose series) Hepatitis B Vaccine (1 of 3 - 19+ 3-dose series) [facility] Start: 1997 BP CONTROLLED (<130/80) BP CONTROLLE D (<130/80) [facility] Start: 1997 Depression Screening Depression Scre ening [facility] Start: 1997 HEPATITIS C SCREENING HEPATITIS C SC RETA [facility] Start: 1979 HEPATITIS B (1 of 3 - 3-dose series) HEPATITIS B (1 of 3 - 3-dose series) [facility] COLOGUARD COLOGUARD Lab Ro utine Screening for colon cancer Ordered: 03/14/2025 [facility] Comment on above: Ordered: 03/14/2025 End: 02-13-2026 DBT Breast - bilateral screening BRITTON SCREENING [facility] Radiology Routine Encounter for screening mammogram for breast cancer 1 Occurrences starting 01/14/2025 until 02/13/2026 [facility] Work Phone: Comment on above: 1 Occurrences starti ng 01/14/2025 until 02/13/2026 DBT Breast - bilater al screening BRITTON SCREENING [facility] Radiology Routine Encounter for screening mammogram for breast cancer 03/14/2025 12:58 PM EDT [facility] Work Phone: End: 11-11-2024 BRITTON SCREENING BRITTON SCREENING Radiology Routine Encounter for screening mammogram for malignant neoplasm of breast 1 Occurrences starting 10/13/2023 until 11/11/2024 [facility] Work Phone: Comment on above: 1 Occurrences starti ng 10/13/2023 until 11/11/2024 MG Breast Screening BRITTON SCREENIN G Radiology Routine Encounter for screening mammogram for malignant neoplasm of breast 12/11/2023 10:18 AM EST [facility] Work Phone: MR Lower Extremity Joint [facility] Patient Education [facility] Work Phone: End: 09-25-2024 XR SHOULDER ORTHO 4V AP/TRUE AP/LAT/OUTLET LEFT XR SHOULDER ORTHO 4V AP/TRUE AP/LAT/OUTLET LEFT Radiology Routine Chronic pain of both shoulders 1 Occurrences starting 08/25/2023 until 09/25/2024 [facility] Work Phone: Comment on above: 1 Occurrences starti ng 08/25/2023 until 09/25/2024 XR SHOULDER ORTHO 4V AP/TRUE AP/LAT/OUTLET LEFT XR SHOULDER ORTHO 4V AP/TRUE AP/LAT/OUTLET LEFT Radiology Routine Chronic pain of both shoulders 08/25/2023 10:14 AM EDT [facility] Work Phone: End: 09-25-2024 XR SHOULDER ORTHO 4V AP/TRUE AP/LAT/OUTLET RIGHT XR SHOULDER ORTHO 4V AP/TRUE AP/LAT/OUTLET RIGHT Radiology Routine Chronic pain of both shoulders 1 Occurrences starting 08/25/2023 until 09/25/2024 [facility] Work Phone: Comment on above: 1 Occurrences starti ng 08/25/2023 until 09/25/2024 XR SHOULDER ORTHO 4V AP/TRUE AP/LAT/OUTLET RIGHT XR SHOULDER ORTHO 4V AP/TRUE AP/LAT/OUTLET RIGHT Radiology Routine Chronic pain of both shoulders 08/25/2023 10:14 AM EDT [facility] Work Phone: [facility] MR ZANA PAIGE [facility] Immunizations Immunization Date Immunization Notes Care Provider Daniel arce 01-08-2022 tetanus toxoid, redu melanie diphtheria toxoid, and acellular pertussis vaccine, adsorbed; Translations: [Boostrix (Tdap)] KANE ARCE DO [facility] 02-04-2021 COVID-19 vaccine (KAMALA) Freeman Sarabia PA-C Work Phone: [facility] 07-15-2019 influenza, injectabl e, quadrivalent, contains preservative Freeman Sarabia PA-C Work Phone: [facility] 07-15-2019 influenza virus vacc ine, unspecified formulation Freeman Sarabia PA-C Work Phone: [facility] 08-05-2016 influenza, injectabl e, quadrivalent, contains preservative Freeman Sarabia PA-C Work Phone: [facility] 08-05-2016 influenza, seasonal, injectable Freeman Sarabia PA-C Work Phone: [facility] 10-07-2015 influenza, injectabl e, quadrivalent, contains preservative Freeman Sarabia PA-C Work Phone: [facility] 10-07-2015 influenza, seasonal, injectable Freeman Sarabia PA-C Work Phone: [facility] 09-29-2014 influenza, seasonal, injectable Freeman Sarabia PA-C Work Phone: [facility] 05-26-2014 tetanus toxoid, redu melanie diphtheria toxoid, and acellular pertussis vaccine, adsorbed Freeman Sarabia PA-C Work Phone: [facility] 10-21-2013 pneumococcal polysaccharide vaccine, 23 valent Freeman Sarabia PA-C Work Phone: [facility] Work Phone: 07-30-2011 influenza virus vacc ine, unspecified formulation Freeman Sarabia PA-C Work Phone: [facility] Work Phone: 07-30-2011 influenza, seasonal, injectable Freeman Sarabia PA-C Work Phone: [facility] 09-29-2010 influenza virus vacc ine, unspecified formulation Freeman Sarabia PA-C Work Phone: [facility] Work Phone: 09-29-2010 influenza, seasonal, injectable Freeman Sarabia PA-C Work Phone: [facility] 06-09-2004 diphtheria and tetan us toxoids, adsorbed for pediatric use Freeman Sarabia PA-C Work Phone: [facility] Work Phone: Payers Date Payer Category Payer Self-pay 2024 Medicaid [id number] 2024 Private Health Insurance MEDPAY [id number] [place] [address] [id number] 2024 Unknown MEDPAY MEDPAY [id number] 2024-Present [phone] [place] [address] [id number] [place] [address] Indemnity [id number] 2023 Medicare [id number] 2019 Medicaid [employer] [facility] MEDICAID [id number] 2019-Present [phone] [address] [place] [address] Medicaid [id number] 2014 Medicaid [id number] 2014 Medicare MEDICARE MEDICAR E A AND B [id number] 2014-Present [phone] [address] [address] [place] [address] Medicare [id number] 2014 Unknown [id number] 2001 Medicare [id number] 2001 Medicare [id number] 1979 Unknown [id number]. 627 1979 Unknown [id number]. 627 1979 Unknown [id number]. 627 1979 Unknown [id number]. 627 Unknown [id number]. 462 Unknown [id number] 2.16.840.1.477486.3.579.2. 462 Unknown [id number] 2.16.840.1.345052.3.579.2. 462 Unknown [id number] 2.16.840.1.106333.3.579.2. 462 Unknown [id number] 2.16.840.1.561468.3.579.2. 462 Unknown [id number] 2.16.840.1.319406.3.579.2. 462 Unknown [id number] 2.16.840.1.363356.3.579.2. 462 Unknown [id number] 2.16.840.1.666684.3.579.2. 462 Unknown [id number] 2.16.840.1.032760.3.579.2. 462 Unknown [id number] 2.16.840.1.789681.3.579.2. 462 Unknown [id number]. 462 Social History Date Type Detail Facility Start: 01-28-2020 End: 05-29-2025 Ex-smoker (finding) [facility] Start: 1980 Sex Assigned At Female A [facility] End: 06-16-2008 History of tobacco use Current smoker [facility] End: 06-16-2008 History of tobacco use Cigarette Smoker [facility] Start: 09-20-2021 End: 03-14-2025 Alcohol intake Current non-drinker of alcohol (finding) [facility] Start: 1980 Sex Assigned At Not on file [facility] Start: 02-25-2022 End: 09-15-2022 Exposure to SARS-CoV-2 (event) Not sure [facility] Start: 08-05-2016 End: 03-03-2023 Cigarettes smoked current (pack per day) - Reported 0.5 [facility] Work Phone: Start: 08-05-2016 End: 09-12-2024 Tobacco use and exposure Smokeless tobacco non-user [facility] Work Phone: Start: 03-03-2023 End: 05-26-2023 Tobacco use panel [facility] Work Phone: Adult Depression Screening Assessment 3 [facility] Work Phone: Start: 12-20-2019 Tobacco Use Tobacco Use [facility] Medical Equipment Procedure Code Equipment Code Equipment Origin al Text Equipment Identifier Dates Arthroscopy, shoulder DECELLULARIZED DERMIS ([id number]) FDA Start: 06-11-2025 Arthroscopy, shoulder cuffed aqumentation system FDA Start: 06-11-2025 Arthroscopy, shoulder Tendon/ligament bone anchor, non-bioabsorbable [id number] FDA Start: 06-11-2025 Arthroscopy, shoulder Tendon/ligament bone anchor, non-bioabsorbable [id number] FDA Start: 06-11-2025 Arthroscopy, shoulder Tendon/ligament bone anchor, bioabsorbable [id number] FDA Start: 06-11-2025 Arthroscopy, shoulder Tendon/ligament bone anchor, bioabsorbable ()[id number] FDA Start: 06-11-2025 Arthroscopy, shoulder DECELLULARIZED DERMIS ([id number]) FDA Start: 06-11-2025 Arthroscopy, shoulder cuffed aqumentation system FDA Start: 06-11-2025 Arthroscopy, shoulder DECELLULARIZED DERMIS ([id number]) FDA Start: 06-11-2025 Arthroscopy, shoulder cuffed aqumentation system FDA Start: 06-11-2025 Start: 11-25-2020 End: 09-15-2022 Comment on above: testing 1 times daily - dx E11.9 - Insul in: Yes Test blood sugar(s) 2-3 daily. Dx: uncontrolled diabetes (250.02). Insulin: Yes Test blood sugar(s) 1 x daily. Dx: uncontrolled diabetes (250.02). Insulin: Yes Goals Date Patient Goal Desired Activity /State Functional Status Date Assessment Result Facility 06-11-2025 Functional status Ambulates [facility] Work Phone: 04-08-2015 Are you deaf, or do you have serious difficulty hearing No 04/08/2015 9:21 AM Ellen Glaser LPN No [facility] 04-08-2015 Are you blind, or do you have serious difficulty seeing, even when wearing glasses No 04/08/2015 9:21 AM Ellen Glaser LPN No [facility] 04-08-2015 Do you have serious difficulty walking or climbing stairs No 04/08/2015 9:21 AM Ellen Glaser LPN No [facility] 04-08-2015 Do you have difficul ty dressing or bathing No 04/08/2015 9:21 AM Ellen Glaser LPN No [facility] 04-08-2015 Because of a physica l, mental, or emotional condition, do you have difficulty doing errands alone such as visiting a physician's office or shopping No 04/08/2015 9:21 AM Ellen Glaser LPN No [facility] Mental Status Date Assessment Result Facility 06-11-2025 Cognitive function Level Of Cons ciousness Drowsy [facility] Work Phone: 06-11-2025 Cognitive function Voice/Name [facility] Work Phone: 02-29-2024 Mental Status [facility]2015 Because of a physica l, mental, or emotional condition, do you have serious difficulty concentrating, remembering, or making decisions No 04/08/2015 9:21 AM Ellen Glaser LPN No [facility] Clinical Notes 02-03-2014 to 08-11-2025 Note Date & Type Note Facility 08-11-2025 Note HNO ID: [id number] Author: ISAAC CANNON MD Service: ? Author Type: Physician Type: Progress Notes Filed: 08/11/2025 14:12 Note Text: PATIENT: Sheila Crowe : 1980 DATE OF SERVICE: 08/11/2025 REFERRING PRACTITIONER: No ref. provider found PRIMARY CARE PROVIDER: Torres Yao MD CHIEF COMPLAINT: Patient presents with: Fibromyalgia HISTORY OF PRESENT ILLNESS: Sheila Crowe is a 44 year old year old female who presents to the clinic today with chief complaint(s) as above. Following up for: Bilateral shoulder pain, fibromyalgia Response to treatment recommendations: Improvement with right subacromial bursa injection. Patient had left shoulder surgery approximately 7 weeks ago and is currently doing physical therapy. She is still experiencing some pain in the left shoulder Current primary concern/description: Left shoulder pain, tightness in the right thigh area Pain Level: 5 /10 Better with: Cold, heat, massage, medication Worse with: Doing too much with the left shoulder, pain is continuous Numbness/Tingling: [x] Yes [] No-bilateral feet Bladder/bowel fxn change: [] Yes [x] No --- 14 point ROS as above; pertinent positives listed above, the rest are reviewed and confirmed to be negative. Nursing ROS Reviewed and confirmed. === HISTORY: ALLERGIES Allergen Reactions Clindamycin Diarrhea Hives, cramping [...] EXPOSED ROOT (ELEVATION AND/OR FORCEPS REMOVAL) 1995 [place] teeth TONSILLECTOMY PRIMARY/SECONDARY Tonsillectomy FAMILY HISTORY Problem Relation Age of Onset Rheumatologic disease Mother other (stiff persons disease) Father other (autoimmune disorder) Father Diabetes Brother Type 1, age 40 Diabetes Maternal Grandmother Diabetes Paternal Grandmother Heart Paternal Grandmother SOCIAL HISTORY[1] Current Outpatient Medications Medication Sig traZODone (DESYREL) 100 mg tablet Use one half to one tab at bedtime as needed. meloxicam (MOBIC) 15 mg tablet Take 0.5-1 tablets by mouth once daily as needed for pain. losartan (COZAAR) 25 mg tablet Take 25 mg by mouth once daily. diclofenac sodium-menthol (DITHOL) 1.5-10 % combo pack Apply to affected area. ketoconazole (NIZORAL) 2 % shampoo [id number] carb-vit K (WOMEN'S MULTIVITAMIN) 18 mg-400 mcg- [...] Take 200 mg by mouth once daily.) pregabalin (LYRICA) 150 mg capsule Take 1 capsule by mouth three times a day for 120 days. tiZANidine (ZANAFLEX) 4 mg tablet Take 1 tablet by mouth every 8 hours as needed. No current facility-administered medications for this visit. OBJECTIVE: VS: BP 112/76 (BP Site: Left Arm, BP Position: Sitting, BP Cuff Size: Regular Adult) Pulse 60 Resp 18 Ht 172.7 cm (5' 8) Wt 84.8 kg (187 lb) LMP 02/22/2024 SpO2 97% BMI 28.43 kg/m? Body mass index is 28.43 kg/m?. PHYSICAL EXAMINATION: Gen: Well developed. No acute distress. Eyes: Conjunctivae clear. Normal upper and lower lids. CV: Non-cyanotic. No obvious jugular venous distention. Chest: Non-labored breathing, good respiratory effort. Lymph: No visible regional lymphadenopathy. No gross edema noted. Skin: Visualized portions intact and no rashes or ecchymosis noted. Psych: Alert and well-oriented. Mood/Affect: appropriate. Neuro/MSK: Straight leg raise increases tightness in the right thigh. No symptoms with straight leg raise test on the left. Shoulder exam deferred today Diagnostic Imaging: Other Diagnostic (more content not included)... [facility] 08-11-2025 Note HNO ID: [id number] Author: GENO JEONG MA Service: ? 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 Delvin Saleh MD Age/Sex: 44/F Location: [facility] Status: Signed Intake Vital Signs 05/22/25 10:24 06/11/25 05:57 Height 5 ft 8 in 5 ft 8 in Intake Visit Reasons: left shoulder Chief Complaint: Left shoulder pain Is patient in pain?: Yes Pain scale (1-10): 7 Allergies Penicillins (PCN) Allergy (Verified 06/13/25 13:05) Anaphylaxis amoxicillin Adverse Reaction (Verified 06/13/25 13:05) Anaphylaxis Medications ?Medication ?Instructions ?Recorded ?Confirmed ?Type lamotrigine 200 mg tablet 100 mg PO DAILY 12/20/19 History losartan 25 mg tablet 25 mg PO DAILY 12/20/1905/30 History topiramate 200 mg capsule 500 mg PO QHS MOOD STABILIZE R 12/20/19 06/13/25 History sprinkle,extended release 24 hr valbenazine 80 mg capsule 80 mg PO DAILY GEODONE SE 06/13/25 History ziprasidone HCl 80 mg capsule 100 mg PO DAILY BIPOLAR 12/20/19 06/13/25 History trazodone 100 mg tablet 100 - 300 mg PO QHS PRN slee p 05/22/25 06/13/25 History benztropine 2 mg tablet 2 mg PO 4X/DAY 05/29/2505/30 History pregabalin 100 mg capsule 100 mg PO TID 05/29/2506/13 History spironolactone 25 mg tablet 50 mg PO BID 05/29/2505/30 History oxycodone-acetaminophen 5 mg-325 1 tab PO Q4H PRN pain 5 days #30 06/11/25 06/13/25 Rx mg tablet (Endocet) tabs PFSH Medical History Wears glasses Depression Anxiety Bipolar disorder Arthritis Restless legs Former smoker Impingement of left shoulder Left rotator cuff tear Left shoulder pain Surgical History History of wisdom tooth extraction History of tonsillectomy Social History Smoking Status: Former smoker HPI left shoulder Details: This documentation accurately reflects the service provided and the decisions made by me, Dr. Mahad Saleh MD 06/13/25 7231. Part of today?s visit was documented by [ ], acting as scribe. SHEILA CROWE is a 44 year old F here today for POD 2 L shoulder arthroscopy, SAD, RC repair, arthrex cuffmend graft. Doing reasonably well. Having pain postoperatively the block wore off Coding Level of Care Code Global Post Op Diagnoses Impingement of left shoulder M25.812 Left rotator cuff tear M75.102 Left shoulder pain M25.512 Assessment and Plan Assessment and Plan (1) Impingement of left shoulder: Status: Acute Plan: SHEILA CROWE is a 44 year old F here today for POD 2 L shoulder arthroscopy, SAD, RC repair, arthrex cuffmend graft. FU 2 weeks. Start PT at 3 weeks post op. Sling 2-3 weeks. Phase 1: Initial Protection and Pain Management (Weeks 1-2) Dressing: Keep incisions clean and dry. Change dressing every 1-2 days. Sling: Wearing a sling for comfort and to protect the surgical repair Pain Management: Ice, rest, and pain medication are used to control pain and swelling. Gentle Movement: Early passive range of motion exercises are introduced to prevent stiffness. Perform pendulum exercises 4x/day, where the patient gently swings the arm in a controlled manner. Maintaining range of motion and strength in the elbow, wrist, and hand is important to prevent stiffness and muscle atrophy. Phase 2: Gradual Sikh of Motion (Weeks 2-6) Gradually discontinue the sling starting 2 weeks after surgery. Active Assisted Range of Motion: Gradually increasing the range of motion with assistance from the unaffected arm or a physical therapist is introduced. Phase 3: Gradual Sikh of Strength (Weeks 6-12) Light Strengthening: Isometrics and gentle resistance exercises are started to strengthen the rotator cuff muscles. Progression of Exercises: Exercises progress from simple movements like scapularretraction to more complex ones like lateral elevation and external rotation. Phase 4: Functional Exercises and Return to Activity (Weeks 12+) Advanced Strengthening: More challenging exercises are added to further strengthen the shoulder and improve stability. Functional Activities: Exercises that mimic daily activities and sports-specificmovements are incorporated to prepare the patient for a return to their desired level of activity. (2) Left rotator cuff tear: Status: Acute (3) Left shoulder pain: Status: Acute Orders: Referrals PT Referral M25.512 - Pain in left shoulder, M25.812 - Other specified joint disorders, left shoulder, M75.102 - Unspecified rotator cuff tear or rupture of left shoulder, not specified as traumatic Ortho Exam General General: Yes no acute distress Neurologic: Yes alert and Yes oriented x3 Psychologic: Yes reasonable and appropriate Left Shoulder Skin/Wound: Yes CDI, Yes healing, No ecchymosis, No erythema and Yes swelling (mild) SHOULDER: nvi mru ain/pinax, nerves. good rad pulse. 06/13/25 1325 <Electronically signed by Mahad castro MD> Date _ Mahad Saleh MD Cosigner Signature: Date (if applicable) CC: ~ [employer] Work Phone: 1(100) 244-810408-13-2025 Consult note [facility] Medical Records Department [address] [place] [address] Anesthesia Postop Eval I 06/11/25 1033 MR#: [id number] Acct: [id number] Name: SHEILA CROWE Rep #:[id number] : 1980 44 From: Ayaz MONCADA PCP: Dr. Torres Yao MD Status:REG S DC Y Race: C Location: [place] [address] Anesthesia: Postop Eval I Current Vital Signs Temperature: 97.3 F Pulse Rate: 47 Blood Pressure: 100/77 Respiratory Rate: 16 Pulse Ox: 96 Oxygen Delivery Method: Room Air Assessment Airway patent: Yes Spontaneous unlabored respirations: Yes Mental status: Awake and Calm nausea: No Vomiting: No Anesthesia Complication: No Fluid Hydration Crystalloid volume administer (ml): 1,200 Total IV fluid infused: 1,200 Progress Note Anesthesia document: Postop Eval 1 completed: Yes 06/11/25 1033 VACUUM FRAME OPERATOR> Date _ Ayaz Pollard VACUUM FRAME OPERATOR Cosigner Signature: Date CC: ~ Signed [facility]08-13-2025 Procedure note [facility] Medical Records Department [address] [place] [address] Operative Report 06/11/25 0924 MR#: [id number] Acct: [id number] Name: SHEILA CROWE Rep #:[id number] : 1980 44 From: Mahad Saleh MD PCP: Dr. Torres Yao MD Status:REG S DC Location: [place] [address] Problems Associated Problem List Diagnoses (1) Impingement of left shoulder: (2) Left rotator cuff tear: (3) Left shoulder pain: Procedures Musculoskeletal 20xxx-29xxx: Other Procedure See Report Operative Report (Standard) Operative Information Date of Procedure: 06/11/25 Pre-Operative Diagnosis: L shoulder impingement, rotator cuff tear Post-Operative Diagnosis: same Surgery/Procedure Performed: L shoulder arthroscopy, SAD, RC repair, arthrex cuffmend graft sub prior: Yes Lining Vamper: shane Tasks completed by assistant professor of biochemistry: Retracting Additional assistant news director?: No Type of Anesthesia: Block,Regional and General RN Documented Start/Stop Times: Operation Date: 06/11/25 07:30 Case Time Into Pre-Op 06/11/25 05:44 Anesthesia Start 06/11/25 07:22 Into Room 06/11/25 07:22 Out of Pre-Op 06/11/25 07:22 Procedure Start 06/11/25 07:47 Procedure Start Time: 07:47 Procedure Stop Time: 09:18 Select all DRAINS/GRAFTS/IMPLANTS that apply: Graft Graft details: arthrex cuff mend allograft tissue. Estimated Blood Loss: 50 Specimen collected: No Description of surgery: Patient brought to the operating room theater. Placed supine on the table. General anesthesia induced. 2 g of IV Ancef administered prior to the start of the case. Patient transferred left side up lateral decubitus beanbag positioner. Axillary roll placed. SCDs on the legs. All bony prominences padded. Upper extremity prepped and draped in the usual sterile fashion with chlorhexidine- based prep solution allowing over 3 minutes drying time prior to draping. 10 pounds of inline traction with the arm in 40 degrees of abduction was used. Preoperative timeout performed to confirm the site patient and the surgery. Began by inserting the arthroscope into the intra-articular portion of the shoulder. Use spinal needle inside out localization to perform an anterior portal through the rotator interval. Did a full diagnostic arthroscopy. Cartilage on the humeral head and the glenoid was normal. There was some longi tudinal fraying of the biceps tendon but the origin at the superior glenoidwas normal. Slight fraying of the labrum gently debrided. The subscapularis was normal. The rotator supraspinatus had a full-thickness crescent-shaped tearwith minor retraction to the level of the mid humeral head. This was mobile. I then placed the arthroscope into the subacromial space and used 2 accessory lateral portals. Again the cuff was mobile. I gently debrided the edges. I prepared the tuberosity. I did a subacromial decompression for the type III acromion to flat margins for about 4 mm. I used the Arthrex power pickfor multiple trephination's. I placed 2 Arthrex 2.6 mm fiber tack RC anchors just off the articularmargin. Set the anchors remove the stay suture. I passed theanchors from deep to superficial through the supraspinatus tendon and cut at theswedge. I then crisscrossed the sutures and inserted these into two 4.75 mm biocomposite knotless swivel anchors just off a margin of the footprint. This achieved good compression and repair of the rotator cuff tendon. I also used the accessory stay suture topass a simple suture at the anterior and posterior margins of the tear From both anchors. I then prepared the Arthrex cuff mend graft marking the superior aspect with purple marker. I attached the fiber link sutures to the lateral side as well assimple sutures in order to attach the graftto the passing device. Passport cannulas inserted laterally. The graft was then inserted into the subacromial space on top of the repair. I fixed this medially with the included knotless all inside medial sutures and a horizontal mattress fashion 2 of those repair sutures that were stable and solid. The newspaper inserter was removed. I then used the fiber link sutures at the lateral corners to then insertthese into push lock anchors in the standard fashion just lateral to the knotless swivel lock anchor s. This achieved good compression and spread of the graft at the greater tuberosity and at the cuffrepair site. Arthroscopy pictures taken and saved onto the system wounds thoroughly irrigated. Meticulous hemostasis achieved. Portal sites cleaned with wet dry dressing followed by closure of the portals with 3-0 Monocryl sutures. Steri- Strips Adaptic 4 x 4 gauze ABD dressing with cloth tape and an abduction pillow sling was then placed. Patient woken up from general anesthetic transferred off the operating room table and taken to postanesthetic care unit in stable condition. All sponge needle instrument counts were correct. Plan to the patient discharged home according to day surgery criteria. CPT 90544, 81704, 23532, mod 22. Surgical Findings: as above Complications Complications: No Admit VTE Documentation VTE Present on Admission: No VTE Mechan Device Prophylaxis: SCD's VTE Pharm Prophylaxis ordered?: No Reason prophylaxis not ordered: Treatment Not Indicated 06/11/25932 Cosigner Signature (if applicable): CC: Dr. Mahad Saleh MD; Dr. Torres Yao MD~ Signed [facility]08-13-2025 Discharge summary [facility] Medical Records Department [address] [place] [address] Instructions for Home/Discharge Instructions 06/11/25921 MR#: [id number] Acct: [id number] Name: SHEILA CROWE Rep #:[id number] : 1980 44 From: Mahad Saleh MD PCP: Dr. Torres Yao MD Status:REG S DC Discharge Instructions Diet Discharge Diet: No restrictions Activity Ice area for (Minutes): 10 Lifting Restrictions: no lifting over 1 pound, pendulums 4x/day Additional Activity Instructions:: ok to remove sling at rest, hand wrist elbow ROM 4x/juan josé Dressing / Incision Call your doctor if your incision/area has: Continuous Slow Oozing, Sudden Increased Bleeding, Increased Pain/ Swelling, Increased Redness, Foul Smelling Discharge and Swelling at the incision site Call your doctor if you observe: Fever of 101 or Higher, Coldness, Increased Pain and Numbness or Tingling Change Dressing in: leave in place till F/U Cleanse incision/area with: Do not get Incision Wet Additional Dressing/Incision Instructions:: ok to change dressing if leaks or iswet Follow Up Care Please Follow Up With: Mahad Saleh MD When: within 2 weeks Test Results: Test results from this visit will be discussed in further detail at your follow- up appointment, if applicable. Discharge Plan Admission Attending Provider: Mahad Saleh Primary Care Provider: Torres Yao Instructions Patient Instructions: Shoulder Arthroscopy Print Language: Senegalese Discharge Orders/Prescriptions Prescriptions: New oxycodone-acetaminophen [Endocet] 5-325 mg tablet 1 tab PO Q4H MDD 6 PRN (Reason: pain) 5 Days Qty: 30 0RF No Action trazodone 100 mg tablet 100 - 300 mg PO QHS PRN (Reason: sleep) ziprasidone HCl 80 MG capsule 100 mg PO DAILY lamotrigine 200 MG tablet 100 mg PO DAILY losartan 25 MG tablet 25 mg PO DAILY topiramate 200 MG capsule,sprinkle,ER 24hr 500 mg PO QHS valbenazine 80 MG capsule 80 mg PO DAILY spironolactone 25 mg tablet 50 mg PO BID Rx Instructions: 50 MG IN AM, 25 MG IN PM benztropine 2 mg tablet 2 mg PO 4X/DAY pregabalin 100 mg capsule 100 mg PO TID Referrals / Follow Up: Mahad Saleh MD [Med Staff - Active Staff] - Torres Yao MD [Primary Care Provider] - Disposition Disposition (needs filled in before D/C Order can be placed): Home, Self Care 06/11/25 0924Scgeovanny Saleh MD CC: Dr. Torrse Yao MD ~ [facility]08-13-2025 History and physical note Author [facility] Note Date/Time June 11, 2025 7: 05am [facility] Medical Records Department [address] [place] [address] History & Physical Exam 06/11/25 0704 MR#: [id number] Acct: [id number] Name: SHEILA CROWE Rep #:[id number] : 1980 44 From: Mahad Saleh MD PCP: Dr. Torres Yao MD Status:REG S DC Location: [facility] HPI - General HPI Narrative SHEILA CROWE, is a 44 F who presents for left shoulder arthroscopy, subacromialdecompression, rotator cuff repair, allograft tissue augmentation. No changes to history and physical exam. Left shoulder marked. Risks alternatives benefits as well as postoperative instructions and narcotic counseling given. Plan for preoperative block. The patient understands wished to proceed no further questions or concerns. MR#: [id number] Acct: [id number] Name: SHEILA CROWE Rep #: [id number] : 1980 Provider: Dr. Mahad Saleh MD Age/Sex: 44/F Location: [facility] Status: Signed Intake Vital Signs 04/21/2511:00 05/21/2511:11 05/22/2510:24 Height 5 ft 8 in 5 ft [...] mcg buccal 150 mcg BC BID PAIN 12/20/19 05/22/25 Hi story film carvedilol 25 mg tablet 50 mg PO BID 12/20/19 05/22/25 History cyclobenzaprine 5 mg tablet 5 mg PO TID PRN MUSCLE RELAXANT 12/20/19 05/22/25 History diclofenac sodium 1 % topical gel 100 g TP PRN PRN Pain Or Fever 12/20/19 05/22/25 History furosemide 40 mg tablet 60 mg PO DAILY 12/20/19 05/22/25 History gabapentin 600 mg tablet,extended 600 mg PO Q4H 12/20/19 05/22/25 History release 24 hr lamotrigine 200 mg tablet 400 mg PO DAILY 12/20/19 05/22/25 Histor y losartan 25 mg tablet 25 mg PO DAILY 12/20/19 05/22/25 History metformin 500 mg tablet,extended 500 mg PO DAILY DIABETES 12/20/19 History release 24 hr perphenazine 2 mg tablet 2 mg PO DAILY 12/20/19 05/22/25 History topiramate 200 mg capsule 500 mg PO QHS MOOD STABILIZER 12/20/19 0 05/22/25 History sprinkle,extended release 24 hr valbenazine 80 mg capsule 80 mg PO DAILY GEODONE SE 12/20/1905/22 History ziprasidone HCl 80 mg capsule 100 mg PO DAILY BIPOLAR 12/20/19 5 History trazodone 100 mg tablet mg PO [...] Psychologic: Yes reasonable and appropriate Supplemental Info [facility] Imaging Services [address] [place] [address] Upper Ext Joint Only(Routine) MR#: [id number] Acct: [id number] Name: SHEILA CROWE Rep #: [id number] : 1980 F 44 From: Tomer Arauz MD PCP: Dr. Torres Yao MD Status: REG CLI Study: Upper Ext Joint Only(Routine) Date of Exam: 05/20/25 Exam# [id number] Ordering Dr: Mahad Saleh MD PROCEDURE: UPPER [...] blood flow before exercises. 4. Anti-Inflammatory Medications: Eboj-ikh-xsqkhzv medications like ibuprofen or naproxen can help [...] Electrical Nerve Stimulation): This therapy uses a small electrical current to help manage pain and promote healing by stimulating nerves. (2) Left rotator cuff tear: Status: Acute (3) Impingement of left shoulder: Status: Acute Clinical Quality Measures Falls Risk Screening/Assistive Devices Have you fallen in the past year?: No PFSH Medical History Wears glasses Depression Anxiety Bipolar disorder Arthritis Restless legs Former smoker Impingement of left shoulder Left rotator cuff tear Left shoulder pain Home Medications ?Medication ?Instructions ?Recorded ?Last Taken ?Type lamotrigine 200 mg tablet 100 mg PO DAILY 12/20/19 Unk nown History losartan 25 mg tablet 25 mg PO DAILY 12/20/19/02/16 08:45 History topiramate 200 mg capsule 500 mg PO QHS MOOD STABILIZE R 12/20/19 Unknown History sprinkle,extended release 24 hr valbenazine 80 mg capsule 80 mg PO DAILY GEODONE SE Unknown History ziprasidone HCl 80 mg capsule 100 mg PO DAILY BIPOLAR 12/20/19 Unknown History trazodone 100 mg tablet 100 - 300 mg PO QHS PRN slee p 05/22/25 Unknown History benztropine 2 mg tablet 2 mg PO 4X/DAY 05/29/25 Unkn own History pregabalin 100 mg capsule 100 mg PO TID 05/29/25 Unkno wn History spironolactone 25 mg tablet 50 mg PO BID 05/29/25 Unkn own History Allergy/AdvReac Type Severity Reaction Status Date / Time Penicillins (PCN) Allergy Anaphylaxis Verified 06/11/25 05:55 amoxicillin AdvReac Anaphylaxis Verified 06/11/25 05:55 Surgical History History of wisdom tooth extraction History of tonsillectomy Social History Smoking Status: Former smoker Vital Signs Vital Signs Vital Signs: 06/11/25 05:57 06/11/25 05:57 06/11/25 06:47 Temperature 97.5 F L 97.5 F L Temperature Source Temporal Pulse Rate 47 L 47 L Respiratory Rate 16 16 Respiratory Pattern Normal Blood Pressure 101/69 101/69 Blood Pressure Mean 79 Blood Pressure Source Monitor Blood Pressure Position Semi-Fowlers Blood Pressure Location Right Arm Pulse Ox 100 100 Oxygen Delivery Method Room Air Room Air Weight Weight: 191 lb 12.835 oz Body Mass Index (BMI) 29.1 Results Lab / Micro Data Labs: Laboratory Results - last 24 hr 06/11/25 05:35: Urine Test Negative 06/11/25 0705 <Electronically signed by Mahad Saleh MD> Cosigner Signature (if applicable): CC: Dr. Mahad Saleh MD; Dr. Torres Yao MD~ Signed [facility] Work Phone: 1(213) 377-444208-13-2025 Consult note Author Rocael Moctezuma [facility] Note Date/Time June 11, 2025 6: 53am [facility] Medical Records Department [address] [place] [address] Pre-Anesthesia Evaluation 06/11/2545 MR#: [id number] Acct: [id number] Name: SHEILA CROWE Rep #:[id number] : 1980 44 From: Rocael Villalta PCP: Dr. Torres Yao MD Status:REG S DC Y Race: C Location: [facility] ASA Classification* ASA Classification ASA Classification: 2 Assessment & Plan Anesthesia* Anesthesia Assessment Anesthesia Assessment: Discussed sedation and/or anesthesia options, risks, benefits, and alternatives with patient/parents/legal guardian/POA. Questions invited. The patient/parents/legal guardian/POA seems to understand and agrees to proceedwith anesthesia plan. Reviewed the physical assessment, medical history, allergy history and patient home medications list prior to surgery/procedure/anesthetic and documented any changes. Performed airway and anesthesia risk assessments. Anesthesia Type Anesthesia Type: General and Block History Source History Obtained from:: Patient and Chart Anesthesia Focused Assessment* Temperature: 97.5 F Pulse Rate: 47 Blood Pressure: 101/69 Respiratory Rate: 16 Pulse Ox: 100 Oxygen Delivery Method: Room Air Airway Assessment Mouth opens: >3 cm Mallampati Score: II Teeth Condition: Intact (Missing few teeth posteriorly and chipped front ) Neck Range of motion (ROM): Full ROM Labs Anesthesia Preop lab: CBC CHEMISTRY POC Glucose 108 mg/dL (70-110) 12/23/19 11:52 12/23/19 COAG Urine Test Negative Negative 06/11/25 05:35 06/11/25 Pre-Assessment Diagnosis/Proposed Procedure Planned Operative Procedure(s): (L) Left shoulder Arthroscopy, subacromial decompression, rotator cuff repair, allograft tissue augmentation Anesthesia History Anesthesia History - property disposal officer: Anesthesia History - property disposal officer Hx Hospitalization No 05/29/25 15:27 Any Problems With Anesthesia No 05/29/25 15:27 Cholinesterase deficiency No 05/29/25 15:27 You/Your Family Experience No 05/29/25 15:27 fever (hyperthermia) with Relationship Recent Exposure to Contagious No 06/11/25 05:57 Disease Does patient have nerve No 05/29/25 15:27 stimulator Patient instructed to have device shut off --Does patient have Pacemaker No 06/11/25 05:57 or ICD? When Was Last Pacemaker Check QUESTION #4 FULL TEXT: You/Your Family Experience fever (hyperthermia) with Anesthesia Last Oral Intake Last Oral intake: Last Oral Intake NPO since 05:30 06/11/25 05:57 Meds taken in AM with sips of water? Meds patient instructed to take am of surgery PONV PONV - property disposal officer: PONV - property disposal officer Female Yes 05/29/25 15:27 HX of Motion Sickness No 05/29/25 15:27 HX of N/V After Surgery No 05/29/25 15:27 Non-Smoker Yes 05/29/25 15:27 Duration of Surgery greater Yes 05/29/25 15:27 than 60 minutes Number of Risk Factors 3 05/29/25 15:27 PONV Score Moderate Risk 05/29/25 15:27 Height & Weight Height & Weight: Anesthesia: Height & Weight Height 5 ft 8 in 06/11/25 05:57 Weight: 87 kg 06/11/25 05:57 Body Mass Index (BMI) 29.1 06/11/25 05:57 Respiratory Assessment Respiratory Assessment - property disposal officer: Respiratory Tract Infection Hx - property disposal officer Hx Respiratory Tract Infection No 05/29/25 15:27 STOP Sleep Apnea STOP Sleep Apnea - property disposal officer: STOP Sleep Apnea - property disposal officer Hx Hypertension Yes: CONTROLLED WITH MED 05/29/25 15:27 Hx Sleep Apnea No 05/29/25 15:27 CPAP Yes 05/21/25 11:11 BIPAP No 05/21/25 11:11 Do you snore loudly (louder No 05/29/25 15:27 than talking or can be heard Do you often feel tired/ No 05/29/25 15:27 fatigued/ sleepy during daytime? Has anyone observed you stop No 05/29/25 15:27 breathing during sleep? STOP Results Negative 05/29/25 15:27 QUESTION #5 FULL TEXT : Do you snore loudly (louder than talking or can be heard through closed doors)? 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 Specify any problems Hx of Preganancy in last 3 N/A 05/29/25 15:27 Months Nurse Filling Out Transfusion NBUCHER 05/29/25 15:27 & Questions: Date: 05/29/25 05/29/25 15:27 Time: 15:30 05/29/25 15:27 Patient unable to answer at this time (ie. confused, unrespo /Reproduction History /Reproductive History - property disposal officer: /Reproductive Hx- property disposal officer Hx Now No 05/29/25 15:27 Gestational Age (in weeks): EDC: Hx Hx Para Hx Section SAB No 05/29/25 15:27 Active Medications Active Medications: Current Medications Generic Name Dose Route Start Last Admin Trade Name Freq PRN Reason Stop Dose Admin Cefazolin Sodium 2 gm/ Sodium 110 mls @ 200 mls/hr 06/11/25 07:30 Chloride IV 06/11/25 08:02 INTRAOP ONE Lactated Ringer's 1,000 mls @ 15 mls/hr 06/11/25 05:45 06/11/25 06:00 IV 15 mls/hr .Q48H BURTON Administration PFSH Medical History Wears glasses Depression Anxiety Bipolar disorder Arthritis Restless legs Former smoker Impingement of left shoulder Left rotator cuff tear Left shoulder pain Home Medications ?Medication ?Instructions ?Recorded ?Last Taken ?Type lamotrigine 200 mg tablet 100 mg PO DAILY 12/20/19 Unk nown History losartan 25 mg tablet 25 mg PO DAILY 12/20/19 02/2 02/16 08:45 History topiramate 200 mg capsule 500 mg PO QHS MOOD STABILIZE R 12/20/19 Unknown History sprinkle,extended release 24 hr valbenazine 80 mg capsule 80 mg PO DAILY GEODONE SE Unknown History ziprasidone HCl 80 mg capsule 100 mg PO DAILY BIPOLAR 12/20/19 Unknown History trazodone 100 mg tablet 100 - 300 mg PO QHS PRN slee p 05/22/25 Unknown History benztropine 2 mg tablet 2 mg PO 4X/DAY 05/29/25 Unkn own History pregabalin 100 mg capsule 100 mg PO TID 05/29/25 Unkno wn History spironolactone 25 mg tablet 50 mg PO BID 05/29/25 Unkn own History Allergy/AdvReac Type Severity Reaction Status Date / Time Penicillins (PCN) Allergy Anaphylaxis Verified 06/11/25 05:55 amoxicillin AdvReac Anaphylaxis Verified 06/11/25 05:55 Surgical History History of wisdom tooth extraction History of tonsillectomy Social History Smoking Status: Former smoker Review of Systems (Anesthesia) ROS Narrative System reviewed and no additional complaints, except as documented. 06/11/25 0653 <Electronically signed by Rocael Moctezuma MD> Date _ Rocael Moctezuma MD Cosigner Signature: Date CC: ~ Signed [facility] Work Phone: 1(559) 764-228108-13-2025 History and physical note [facility] Medical Records Department [address] [place] [address] [place] [address] History & Physical Exam 06/11/25 0704 MR#: [id number] Acct: [id number] Name: SHEILA CROWE Rep #:[id number] : 1980 44 From: Mahad Saleh MD PCP: Dr. Torres Yao MD Status:REG S DC Location: [place] [address] HPI - General HPI Narrative SHEILA CROWE, is a 44 F who presents for left shoulder arthroscopy, subacromialdecompression, rotator cuff repair, allograft tissue augmentation. No changes to history and physical exam. Left shoulder marked. Risks alternatives benefits as well as postoperative instructions and narcotic counselinggiven. Plan for preoperative block. The patient understands wished to proceed no further questions or concerns. MR#: [id number] Acct: [id number] Name: SHEILA CROWE Rep #: [id number] : 1980 Provider: Dr. Mahad Saleh MD Age/Sex: 44/F Location: [facility] Status: Signed Intake Vital Signs 04/21/2511:00 05/21/2511:11 05/22/2510:24 Height 5 ft 8 in 5 ft [...] mcg buccal 150 mcg BC BID PAIN 12/20/19 05/22/25 Hi story film carvedilol 25 mg tablet 50 mg PO BID 12/20/19 05/22/25 History cyclobenzaprine 5 mg tablet 5 mg PO TID PRN MUSCLE RELAXANT 12/20/19 05/22/25 History diclofenac sodium 1 % topical gel 100 g TP PRN PRN Pain Or Fever 12/20/19 05/22/25 History furosemide 40 mg tablet 60 mg PO DAILY 12/20/19 05/22/25 History gabapentin 600 mg tablet,extended 600 mg PO Q4H 12/20/19 05/22/25 History release 24 hr lamotrigine 200 mg tablet 400 mg PO DAILY 12/20/19 05/22/25 Histor y losartan 25 mg tablet 25 mg PO DAILY 12/20/19 05/22/25 History metformin 500 mg tablet,extended 500 mg PO DAILY DIABETES 12/20/19 History release 24 hr perphenazine 2 mg tablet 2 mg PO DAILY 12/20/19 05/22/25 History topiramate 200 mg capsule 500 mg PO QHS MOOD STABILIZER 12/20/19 0 05/22/25 History sprinkle,extended release 24 hr valbenazine 80 mg capsule 80 mg PO DAILY GEODONE SE 12/20/1905/22 History ziprasidone HCl 80 mg capsule 100 mg PO DAILY BIPOLAR 12/20/19 5 History trazodone 100 mg tablet mg PO [...] and the decisions made by me, Dr. Jodie MD 05/22/25 1024. Part of today?s visit was documented by [ ], acting as scribe. SHEILA CROWE is a 44 year old F here today for FU L shoulder MRI. on disability for mental health,did PT for 15 visits, failed a cortisone injection. worse with even light lifting. Ortho Exam General General: Yes no acute distress Neurologic: Yes alert and Yes oriented x3 Psychologic: Yes reasonable and appropriate Supplemental Info [facility] Imaging Services [address] [place], [place] [address] Upper Ext Joint Only(Routine) MR#: [id number] Acct: [id number] Name: SHEILA CROWE Rep #: [id number] : 1980 F 44 From: Tomer Arauz MD PCP: Dr. Torres Yao MD Status: REG CLI Study: Upper Ext Joint Only(Routine) Date of Exam: 05/20/25 Exam# [id number] Ordering Dr: Mahad Saleh MD PROCEDURE: UPPER [...] into the subacromial subdeltoid bursa. Reading [facility] Tommie independently reviewed the imaging. Concur with radiologist [...] activities in 2 weeks in a sling postoperati vely. There doeslook to be some tendon still attached to the footprint making this more so the typeII or trans tendon tear / near the [...] wear of hardware or fixation, instability, fracture, deepvein thrombosis and pulmonary embolism, anesthetic risks, , [...] blood flow before exercises. 4. Anti-Inflammatory Medications: Ogis-uiv-amzdfms medications like ibuprofen or naproxen can help [...] Electrical Nerve Stimulation): This therapy uses a small electrical current to help manage pain and promote healing by stimulating nerves. (2) Left rotator cuff tear: Status: Acute (3) Impingement of left shoulder: Status: Acute Clinical Quality Measures Falls Risk Screening/Assistive Devices Have you fallen in the past year?: No [facility]LY [facility], [facility] Medical History Wears glasses Depression Anxiety Bipolar disorder Arthritis Restless legs Former smoker Impingement of left shoulder Left rotator cuff tear Left shoulder pain Home Medications ?Medication ?Instructions ?Recorded ?Last Taken ?Type lamotrigine 200 mg tablet 100 mg PO DAILY 12/20/19 Unk nown History losartan 25 mg tablet 25 mg PO DAILY 12/20/19/2 02/16 08:45 History topiramate 200 mg capsule 500 mg PO QHS MOOD STABILIZE R 12/20/19 Unknown History sprinkle,extended release 24 hr valbenazine 80 mg capsule 80 mg PO DAILY GEODONE SE Unknown History ziprasidone HCl 80 mg capsule 100 mg PO DAILY BIPOLAR 12/20/19 Unknown History trazodone 100 mg tablet 100 - 300 mg PO QHS PRN slee p 05/22/25 Unknown History benztropine 2 mg tablet 2 mg PO 4X/DAY 05/29/25 Unkn own History pregabalin 100 mg capsule 100 mg PO TID 05/29/25 Unkno wn History spironolactone 25 mg tablet 50 mg PO BID 05/29/25 Unkn own History Allergy/AdvReac Type Severity Reaction Status Date / Time Penicillins (PCN) Allergy Anaphylaxis Verified 06/11/25 05:55 amoxicillin AdvReac Anaphylaxis Verified 06/11/25 05:55 Surgical History History of wisdom tooth extraction History of tonsillectomy Social History Smoking Status: Former smoker Vital Signs Vital Signs Vital Signs: 06/11/25 05:57 06/11/25 05:57 06/11/25 06:47 Temperature 97.5 F L 97.5 F L Temperature Source Temporal Pulse Rate 47 L 47 L Respiratory Rate 16 16 Respiratory Pattern Normal Blood Pressure 101/69 101/69 Blood Pressure Mean 79 Blood Pressure Source Monitor Blood Pressure Position Semi-Fowlers Blood Pressure Location Right Arm Pulse Ox 100 100 Oxygen Delivery Method Room Air Room Air Weight Weight: 191 lb 12.835 oz Body Mass Index (BMI) 29.1 Results Lab / Micro Data Labs: Laboratory Results - last 24 hr 06/11/25 05:35: Urine Test Negative 06/11/25 0705 Cosigner Signature (if applicable): CC: Dr. Mahad Saleh MD; Dr. Torres Yao MD~ Signed [facility]08-13-2025 [facility] Medical Records Department [address] [place] [address] History Physical Exam 06/11/25 0704 MR#: [id number] Acct: [id number] Name: SHEILA CROWE Rep #: [id number] : 1980 44 From: Mahad Saleh MD PCP: Dr. Torres Yao MD Status:REG [facility] [place] Location: [place] [address] HPI - General HPI Narrative SHEILA CROWE, is a 44 F who presents for left shoulder arthroscopy, subacromial decompression, rotator cuff repair, allograft tissue augmentation. No changes to history and physical exam. Left shoulder marked. Risks alternatives benefits as well as postoperative instructions and narcotic counseling given. Plan for preoperative block. The patient understands wished to proceed no further questions or concerns. MR#: [id number] Acct: [id number] Name: SHEILA CROWE Rep #: [id number] : 1980 Provider: Dr. Mahad Saleh MD Age/Sex: 44/F Location: [facility] [place] Status: Signed Intake Vital Signs 04/21/2511:00 05/21/2511:11 05/22/2510:24 Height 5 ft 8 in 5 ft [...] mcg buccal 150 mcg BC BID PAIN 12/20/19 05/22/25 History film carvedilol 25 mg tablet 50 mg PO BID 12/20/19 05/22/25 History cyclobenzaprine 5 mg tablet 5 mg PO TID PRN MUSCLE RELAXANT 12/20/19 05/22/25 History diclofenac sodium 1 % topical gel 100 g TP PRN PRN Pain Or Fever 12/20/19 05/22/25 H istory furosemide 40 mg tablet 60 mg PO DAILY 12/20/19 05/22/25 History gabapentin 600 mg tablet,extended 600 mg PO Q4H 12/20/19 05/22/25 History release 24 hr lamotrigine 200 mg tablet 400 mg PO DAILY 12/20/19 05/22/25 History losartan 25 mg tablet 25 mg PO DAILY 12/20/19 05/22/25 History metformin 500 mg tablet,extended 500 mg PO DAILY DIABETES 12/20/19 05/22/25 History release 24 hr perphenazine 2 mg tablet 2 mg PO DAILY 12/20/19 05/22/25 History topiramate 200 mg capsule 500 mg PO QHS MOOD STABILIZER 12/20/19 05/22/25 Hi story sprinkle,extended release 24 hr valbenazine 80 mg capsule 80 mg PO DAILY GEODONE SE 12/20/19 05/22/25 Histor y ziprasidone HCl 80 mg capsule 100 mg [...] Psychologic: Yes reasonable and appropriate Supplemental Info [facility] Imaging Services [address] [place], [place] [id number] Upper Ext Joint Only(Routine) MR#: [id number] Acct: [id number] Name: SHEILA CROWE Rep #: [id number] : 1980 F 44 From: Tomer Arauz MD PCP: Dr. Torres Yao MD Status: REG CLI Study: Upper Ext Joint Only(Routine) Date of Exam: 05/20/25 Exam# [id number] Ordering Dr: Mahad Saleh MD PROCEDURE: UPPER [...] AC joint: The AC joint is aligned (more content not included)...[facility]08-13-2025 Consult note [facility] Medical Records Department [address] [place] [address] Pre-Anesthesia Evaluation 06/11/25 0645 MR#: [id number] Acct: [id number] Name: SHEILA CROWE Rep #:[id number] : 1980 44 From: Rocael Villalta PCP: Dr. Torres Yao MD Status:REG S DC Y Race: C Location: AC01-1 ASA Classification* ASA Classification ASA Classification: 2 Assessment & Plan Anesthesia* Anesthesia Assessment Anesthesia Assessment: Discussed sedation and/or anesthesia options, risks, benefits, and alternatives with patient/parents/legal guardian/POA. Questions invited. The patient/parents/legal guardian/POA seems to understand and agrees to proceedwith anesthesia plan. Reviewed the physical assessment, medical history, allergy history and patient home medications list prior to surgery/procedure/anesthetic and documented any changes. Performed airway and anesthesia risk assessments. Anesthesia Type Anesthesia Type: General and Block History Source History Obtained from:: Patient and Chart Anesthesia Focused Assessment* Temperature: 97.5 F Pulse Rate: 47 Blood Pressure: 101/69 Respiratory Rate: 16 Pulse Ox: 100 Oxygen Delivery Method: Room Air Airway Assessment Mouth opens: >3 cm Mallampati Score: II Teeth Condition: Intact (Missing few teeth posteriorly and chipped front ) Neck Range of motion (ROM): Full ROM Labs Anesthesia Preop lab: CBC CHEMISTRY POC Glucose 108 mg/dL (70-110) 12/23/19 11:52 12/23/19 COAG Urine Test Negative Negative 06/11/25 05:35 06/11/25 Pre-Assessment Diagnosis/Proposed Procedure Planned Operative Procedure(s): (L) Left shoulder Arthroscopy, subacromial decompression, rotator cuff repair, allograft tissue augmentation Anesthesia History Anesthesia History - property disposal officer: Anesthesia History - property disposal officer Hx Hospitalization No 05/29/25 15:27 Any Problems With Anesthesia No 05/29/25 15:27 Cholinesterase deficiency No 05/29/25 15:27 You/Your Family Experience No 05/29/25 15:27 fever (hyperthermia) with Relationship Recent Exposure to Contagious No 06/11/25 05:57 Disease Does patient have nerve No 05/29/25 15:27 stimulator Patient instructed to have device shut off --Does patient have Pacemaker No 06/11/25 05:57 or ICD? When Was Last Pacemaker Check QUESTION #4 FULL TEXT: You/Your Family Experience fever (hyperthermia) with Anesthesia Last Oral Intake Last Oral intake: Last Oral Intake NPO since 05:30 06/11/25 05:57 Meds taken in AM with sips of water? Meds patient instructed to take am of surgery PONV PONV - property disposal officer: PONV - property disposal officer Female Yes 05/29/25 15:27 HX of Motion Sickness No 05/29/25 15:27 HX of N/V After Surgery No 05/29/25 15:27 Non-Smoker Yes 05/29/25 15:27 Duration of Surgery greater Yes 05/29/25 15:27 than 60 minutes Number of Risk Factors 3 05/29/25 15:27 PONV Score Moderate Risk 05/29/25 15:27 Height & Weight Height & Weight: Anesthesia: Height & Weight Height 5 ft 8 in 06/11/25 05:57 Weight: 87 kg 06/11/25 05:57 Body Mass Index (BMI) 29.1 06/11/25 05:57 Respiratory Assessment Respiratory Assessment - property disposal officer: Respiratory Tract Infection Hx - property disposal officer Hx Respiratory Tract Infection No 05/29/25 15:27 STOP Sleep Apnea STOP Sleep Apnea - property disposal officer: STOP Sleep Apnea - property disposal officer Hx Hypertension Yes: CONTROLLED WITH MED 05/29/25 15:27 Hx Sleep Apnea No 05/29/25 15:27 CPAP Yes 05/21/25 11:11 BIPAP No 05/21/25 11:11 Do you snore loudly (louder No 05/29/25 15:27 than talking or can be heard Do you often feel tired/ No 05/29/25 15:27 fatigued/ sleepy during daytime? Has anyone observed you stop No 05/29/25 15:27 breathing during sleep? STOP Results Negative 05/29/25 15:27 QUESTION #5 FULL TEXT : Do you snore loudly (louder than talking or can be heard through closeddoors)? 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 Specify any problems Hx of Preganancy in last 3 N/A 05/29/25 15:27 Months Nurse Filling Out Transfusion NBUCHER 05/29/25 15:27 & Questions: Date: 05/29/25 05/29/25 15:27 Time: 15:30 05/29/25 15:27 Patient unable to answer at this time (ie. confused, unrespo /Reproduction History /Reproductive History - property disposal officer: /Reproductive Hx- property disposal officer Hx Now No 05/29/25 15:27 Gestational Age (in weeks): EDC: Hx Hx Para Hx Section SAB No 05/29/25 15:27 Active Medications Active Medications: Current Medications Generic Name Dose Route Start Last Admin Trade Name Freq PRN Reason Stop Dose Admin Cefazolin Sodium 2 gm/ Sodium 110 mls @ 200 mls/hr 06/11/25 07:30 Chloride IV 06/11/25 08:02 INTRAOP ONE Lactated Ringer's 1,000 mls @ 15 mls/hr 06/11/25 05:45 06/11/25 06:00 IV 15 mls/hr .Q48H BURTON Administration PFSH Medical History Wears glasses Depression Anxiety Bipolar disorder Arthritis Restless legs Former smoker Impingement of left shoulder Left rotator cuff tear Left shoulder pain Home Medications ?Medication ?Instructions ?Recorded ?Last Taken ?Type lamotrigine 200 mg tablet 100 mg PO DAILY 12/20/19 Unk nown History losartan 25 mg tablet 25 mg PO DAILY 12/20/1912/01 08:45 History topiramate 200 mg capsule 500 mg PO QHS MOOD STABILIZE R 12/20/19 Unknown History sprinkle,extended release 24 hr valbenazine 80 mg capsule 80 mg PO DAILY GEODONE SE Unknown History ziprasidone HCl 80 mg capsule 100 mg PO DAILY BIPOLAR 12/20/19 Unknown History trazodone 100 mg tablet 100 - 300 mg PO QHS PRN slee p 05/22/25 Unknown History benztropine 2 mg tablet 2 mg PO 4X/DAY 05/29/25 Unkn own History pregabalin 100 mg capsule 100 mg PO TID 05/29/25 Unkno wn History spironolactone 25 mg tablet 50 mg PO BID 05/29/25 Unkn own History Allergy/AdvReac Type Severity Reaction Status Date / Time Penicillins (PCN) Allergy Anaphylaxis Verified 06/11/25 05:55 amoxicillin AdvReac Anaphylaxis Verified 06/11/25 05:55 Surgical History History of wisdom tooth extraction History of tonsillectomy Social History Smoking Status: Former smoker Review of Systems (Anesthesia) ROS Narrative System reviewed and no additional complaints, except as documented. 06/11/25 0653 MD> Date _ Rocael Moctezuma MD [facility] Signature: Date CC: ~ Signed [facility]07-24-2025 [facility] [address] [place] [address] OFFICE VISIT Date of Service: 05/22/25 MR#: [id number] Acct: [id number] Name: SHEILA CROWE Rep #: [id number] : 1980 Provider: Dr. Delvin Saleh MD Age/Sex: 44/F Location: [facility] Status: Signed Intake Vital Signs [...] and the decisions made by me, Dr. Jodie MD 05/22/25 1024. Part of today?s visit was documented by [ ], acting as scribe. SHEILA CROWE is a 44 year old F here today for FU L shoulder MRI. on disability for mental health,did PT for 15 visits, failed a cortisone injection. worse with even light lifting. Ortho Exam General General: Yes no acute distress Neurologic: Yes alert and Yes oriented x3 Psychologic: Yes reasonable and appropriate Supplemental Info [facility] Imaging Services [address] [place] [address] Upper Ext Joint Only(Routine) MR#: [id number] Acct: [id number] Name: SHEILA CROWE Rep #: [id number] : 1980 F 44 From: Tomer Arauz MD PCP: Dr. Torres Yao MD Status: REG CLI Study: Upper Ext Joint Only(Routine) Date of Exam: 05/20/25 Exam# [id number] Ordering Dr: Mahad Saleh MD PROCEDURE: UPPER [...] into the subacromial subdeltoid bursa. Reading [facility] [place] independently reviewed the imaging. Concur with [...] shoulder can help reduce swelling and pain, especiallyafter activity. Heat can be helpful to relax tense muscles and improve blood flow before exercises. 4. Anti-Inflammatory Medications: Qlku-yyg-koooquw medications like ibuprofen ornaproxen can help reduce [...] in the past year?: No 05/22/25 1045 n > Date _ Mahad Saleh MD Cosigner Signature: Date (if applicable) CC: ~ [facility]07-24-2025 Progress note Author Mahad Saleh [facility] Services Note Date/Time May 22, 2025 10:4 5am [facility] [address] [place] [address] [place] [address] OFFICE VISIT Date of Service: 05/22/25 MR#: [id number] Acct: [id number] Name: SHEILA CROWE Rep #: [id number] : 1980 Provider: Dr. Delvin Saleh MD Age/Sex: 44/F Location: [facility] [place] Status: Signed Intake Vital Signs 04/21/25 11:00 [...] Psychologic: Yes reasonable and appropriate Supplemental Info [facility] Imaging Services [address] [place] [address] Upper Ext Joint Only(Routine) MR#: [id number] Acct: [id number] Name: SHEILA CROWE Rep #: [id number] : 1980 F 44 From: Tomer Arauz MD PCP: Dr. Torres Yao MD Status: REG CLI Study: Upper Ext Joint Only(Routine) Date of Exam: 05/20/25 Exam# [id number] Ordering Dr: Mahad Saleh MD PROCEDURE: UPPER [...] blood flow before exercises. 4. Anti-Inflammatory Medications: Wise-ndp-kyhmhmd medications like ibuprofen ornaproxen can help reduce [...] castro MD> Date _ Mahad Saleh MD Cosigner Signature: Date (if applicable) CC: ~ [facility] Work Phone: 1(227) 986-549707-18-2025 NoteHNO ID: [id number] Author: TORRES YAO MD Service: ? Author [...] affected area. ketoconazole (NIZORAL) 2 % shampoo cw-yi-iiye-FA-Ca carb-vit K (WOMEN'S MULTIVITAMIN) 18 mg-400 mcg- [...] EXPOSED ROOT (ELEVATION AND/OR FORCEPS REMOVAL) 1995 [place] TONSILLECTOMY PRIMARY/SECONDARY Tonsillectomy FAMILY HISTORY Problem [...] 02/14/2025 83.9 kg ( (more content not included)...[facility] 05-16-2025 History of Present illness Narrative* Torres [...] affected area. ketoconazole (NIZORAL) 2 % shampoo tp-ew-gsuk-FA-Ca carb-vit K (WOMEN'S MULTIVITAMIN) 18 mg-400 mcg- [...] EXPOSED ROOT (ELEVATION AND/OR FORCEPS REMOVAL) 1995 [place] TONSILLECTOMY PRIMARY/SECONDARY <AGE 12 1994 Tonsillectomy [...] to patient) Torres Yao MD Recording using [employer] software for draft documentation of the visit was discussed with the patient/authorized factory representative; all questions welcomed and answered. Patient/authorized factory representative agreed to proceed documented in this encounterMartin [facility] Hospital07-18-[facility]25 Instructions* Patient Instructions* Torres Yao MD - 05/16/2025 1:56 PM EDT [place] [facility] - Insurance Therapy/Counseling [facility] [address] [place] [address] [employer] [address] [place] [address] [address] [address] [facility] [address] [facility] [address] [place] [address] Stephanie Bankson [facility] [address] [facility] [address] [place] [address] [facility] [address] [place] [address] [employer] [address] [facility] [place] [address] [facility] [address] [place] [address] documented in this encounterMartin Memorial Hospital07-17-2025 Instructions* Patient Instructions* Freeman Sarabia PA-C [...] 3 months Continue to FU with the migratory farm hand for the neuropathy. FU with your psychiatrist regarding the sleep/miguel issues Continue with the kinesiology tape/roller ball on the feet. You can use CBD oil, just avoid THC, and delta 8 and delta 9. FU with Dr. Saleh with [facility] for the upcoming left shoulder MRI. Supervising Physiciain - Dr. Isaac Cannon MD documented in this encounterMartin Memorial Hospital07-17-2025 NoteHNO ID: [id number] Author: FREEMAN SARABIA PA-C Service: ? Author Type: Physician Street Worker Type: Progress Notes Filed: 05/15/2025 12:06 Note Text: This note was created using [employer]. Subjective Sheila Crowe is a 44 year [...] that was ordered by Dr. Saleh at [facility] 03/14/2025 05/15/2025 INTAKE PAIN ASSESSMENT [...] EXPOSED ROOT (ELEVATION AND/OR FORCEPS REMOVAL) 1995 [place] TONSILLECTOMY PRIMARY/SECONDARY Tonsillectomy Social History Tobacco [...] rotation and abduction. Lupe (more content not included)...[facility]07-17-2025 History of Present illness Narrative* Freeman Sarabia PA-C - 05/15/2025 11:40 AM EDT This note was created using [employer]. Subjective Sheila Crowe is a 44 year [...] that was ordered by Dr. Saleh at [facility] 03/14/2025 05/15/2025 INTAKE PAIN ASSESSMENT Are [...] EXPOSED ROOT (ELEVATION AND/OR FORCEPS REMOVAL) 1995 [place] TONSILLECTOMY PRIMARY/SECONDARY <AGE 12 1994 Tonsillectomy [...] 3 months Continue to FU with the migratory farm hand for the neuropathy. FU with your psychiatrist regarding the sleep/miguel issues Continue with the kinesiology tape/roller ball on the feet. You can use CBD oil, just avoid THC, and delta 8 and delta 9. FU with Dr. Saleh with [facility] for the upcoming left shoulder MRI. Freeman Sarabia PA-C documented in this encounterMartin Memorial Hospital07-07-2025 Telephone encounter Note * Telephone Encounter - Cass Nelson MA - 05/05/2025 5:14 PM EDT Patient was made aware of the results. Patient verbalizes understanding. Cass Nelson Ma [facility]07-07-2025 Miscellaneous Notes* Telephone Encounter - Cass Nelson MA - 05/05/2025 5:14 PM EDT Patient was made aware of the results. Patient verbalizes understanding. Cass Nelson Ma * Telephone Encounter - Ellen Rene APRN.CNP - 05/05/2025 4:37 PM EDT Please let patient know that bladder ultrasound did not show urinary retention and everything was normal. documented in this encounterMartin Memorial Hospital07-07-2025 Telephone encounter Note * Telephone Encounter - Ellen Rene APRN.CNP - 05/05/2025 4:37 PM EDT Please let patient know that bladder ultrasound did not show urinary retention and everything was normal. [facility] History of Present illness Narrative* Jaye Marks RT(Brittany) - 05/05/2025 3:00 PM EDT Radiology Service [...] PATIENT PRESENTS WITH AN IMPLANTABLE OR ATTACHED ALLERGY NURSE: No RADIOLOGY DEPARTMENT: Ultrasound PERIPHERAL IV DATA: Not applicable SIGNED BY: Jaye Marks RDMS, T May 05, 2025 3:07 PM documented in this encounterMartin Memorial Hospital07-07-2025 NoteHNO ID: [id number] Author: JAYE MARKS RT(Brittany) Service: ? Author Type: Technologist Type: Progress [...] PATIENT PRESENTS WITH AN IMPLANTABLE OR ATTACHED ALLERGY NURSE: No RADIOLOGY DEPARTMENT: Ultrasound PERIPHERAL IV DATA: Not applicable SIGNED BY: Jaye Marks RDMS, RVT May 05, 2025 3:07 [facility]07-07-2025 Instructions* Patient Instructions* Ellne Rene APRN.CNP - 05/05/2025 1:07 PM EDT - Continue [...] your bladder is emptying. documented in this encounterMartin Memorial Hospital07-07-2025 NoteHNO ID: [id number] Author: ELLEN RENE APRN.CNP Service: ? Author [...] prescribed by a pain management provider at [facility]. - Uses TENS unit and ice [...] EXPOSED ROOT (ELEVATION AND/OR FORCEPS REMOVAL) 1995 [place] TONSILLECTOMY PRIMARY/SECONDARY Tonsillectomy ALLERGIES Clindamycin, Levaquin [...] % combo pack Apply to affected area. ig-ic-eryx-FA-Ca carb-vit K (WOMEN'S MULTIVITAMIN) 18 mg-400 mcg- [...] (+) constipation, (+) diarrhea (more content not included)...[facility]07-07-2025 History of Present illness Narrative* Ellen Rene APRN.[facility] - 05/05/2025 12:50 PM EDT This is [...] prescribed by a pain management provider at [facility]. - Uses TENS unit and ice [...] EXPOSED ROOT (ELEVATION AND/OR FORCEPS REMOVAL) 1995 [place] TONSILLECTOMY PRIMARY/SECONDARY <AGE 12 1994 Tonsillectomy [...] % combo pack Apply to affected area. wn-iv-wqbr-FA-Ca carb-vit K (WOMEN'S MULTIVITAMIN) 18 mg-400 mcg- [...] note to the pain management provider at [facility] regarding the current swelling and concerns [...] improvement. Ellen Rene APRN.BASHIR documented in this encounterMartin Memorial Hospital07-07-2025 Telephone encounter Note * Telephone Encounter [...] days but not today. Protocols used: Urinary Smkvllag-FKZMB-FO [facility]07-07-2025 Miscellaneous Notes* Telephone Encounter - Ghazala [...] days but not today. Protocols used: Urinary Dgqqdwen-EJADZ-ZH documented in this encounterMartin Memorial Hospital06-23-2025 Evaluation note* Diagnosis Onset Date Resolution Status Admit Date Left shoulder pain acute March 312024 10:59am Impingement of left shoulder acute May 22, 2025 10:19am Left rotator cuff tear acute Ju ly 2024 10:19am Left shoulder pain acute April 302024 10:19am [facility] Work Phone: [phone]) [phone] Evaluation note* Diagnosis Onset Date Resolution Status Admit Date Left shoulder pain acute March 312024 10:59am Impingement of left shoulder acute May 22, 2025 10:19am Left rotator cuff tear acute ly 2024 10:19am Left shoulder pain acute April 302024 10:19am Impingement of left shoulder acute June 11, 2025 5:18am Left rotator cuff tear acute Au giovana 2024 5:18am Left shoulder pain acute June 11, 2025 5:18am [facility] Work Phone: [phone]) 927-783906-23-2025 Evaluation note* Diagnosis Onset Date Resolution Status Admit Date Left shoulder pain acute March 312024 10:59am Impingement of left shoulder acute May 22, 2025 10:19am Left rotator cuff tear acute Ju ly 2024 10:19am Left shoulder pain acute April 302024 10:19am Impingement of left shoulder acute June 11, 2025 5:18am Left rotator cuff tear acute Au giovana 2024 5:18am Left shoulder pain acute June 11, 2025 5:18am Impingement of left shoulder acute June 13, 2025 1:01pm Left rotator cuff tear acute Au giovana 2024 1:01pm Left shoulder pain acute June 13, 2025 1:01pm [facility] Work Phone: 1(675) 966-539206-23-2025 Evaluation note* Diagnosis Onset Date Resolution Status Admit Date Left shoulder pain acute March 312024 10:59am Impingement of left shoulder acute May 22, 2025 10:19am Left rotator cuff tear acute Ju ly 2024 10:19am Left shoulder pain acute April 302024 10:19am Impingement of left shoulder acute June 11, 2025 5:18am Left rotator cuff tear acute Au giovana 2024 5:18am Left shoulder pain acute June 11, 2025 5:18am Impingement of left shoulder acute June 13, 2025 1:01pm Left rotator cuff tear acute Au giovana 2024 1:01pm Left shoulder pain acute June 13, 2025 1:01pm Impingement of left shoulder acute June 24, 2025 1:03pm Left rotator cuff tear acute Au giovana 2024 1:03pm Left shoulder pain acute June 24, 2025 1:03pm [facility] [employer] [facility] Work Phone: 1(212) 419-409506-23-2025 Evaluation note* Diagnosis Onset Date Resolution Status Admit Date Left shoulder pain acute March 312024 10:59am Impingement of left shoulder acute May 22, 2025 10:19am Left rotator cuff tear acute Ju ly 2024 10:19am Left shoulder pain acute April 302024 10:19am Impingement of left shoulder acute June 11, 2025 5:18am Left rotator cuff tear acute Au giovana 2024 5:18am Left shoulder pain acute June 11, 2025 5:18am Impingement of left shoulder acute June 13, 2025 1:01pm Left rotator cuff tear acute Au giovana 2024 1:01pm Left shoulder pain acute June 13, 2025 1:01pm Impingement of left shoulder acute June 24, 2025 1:03pm Left rotator cuff tear acute Au giovana 2024 1:03pm Left shoulder pain acute June 24, 2025 1:03pm Impingement of left shoulder acute July 22, 2025 12:49pm Left rotator cuff tear acute Se ptember 2024 12:49pm Left shoulder pain acute Septem yvette 2024 12:49pm [employer] Work Phone: 1(622) 415-355506-17-2025 Telephone encounter Note* Telephone Encounter - Bertha Flynn LPN - 04/15/2025 4:17 PM EDT Referral fax confirmation showing at 0615. [facility]06-17-2025 Miscellaneous Notes* Telephone Encounter - Bertha Flynn LPN - 04/15/2025 4:17 PM EDT Referral fax confirmation showing at 0615. * Telephone Encounter - Bertha Flynn LPN - 04/15/2025 3:51 PM EDT VM received and stated I was supposed to have a referral made for Ortho and they said they never got it, but they did allow me to schedule, so I am but they need the clinicals. Spoke with pt and confirmed information in chart from 02/18/25, explained we will refax the referral. documented in this encounterMartin Memorial Hospital06-17-2025 Telephone encounter Note * Telephone Encounter - Bertha Flynn LPN - 04/15/2025 3:51 PM EDT VM received and stated I was supposed to have a referral made for Ortho and they said they never got it, but they did allow me to schedule, so I am but they need the clinicals. Spoke with pt and confirmed information in chart from 02/18/25, explained we will refax the referral. [facility]05-16-2025 History of Present illness Narrative* Tati [...] PATIENT PRESENTS WITH AN IMPLANTABLE OR ATTACHED ALLERGY NURSE: No RADIOLOGY DEPARTMENT: Mammography PERIPHERAL IV DATA: Not applicable SIGNED BY: Mary Vargas March 14, 2025 1:39 PM documented in this encounterMartin Memorial Hospital05-16-2025 NoteHNO ID: [id number] Author: TATI ODELL Mammo Tech Service: ? Author Type: Fisher Trap Type: Progress Notes Filed: 03/14/2025 13:39 Note [...] PATIENT PRESENTS WITH AN IMPLANTABLE OR ATTACHED ALLERGY NURSE: No RADIOLOGY DEPARTMENT: Mammography PERIPHERAL IV DATA: Not applicable SIGNED BY: Tati Odell [employer] March 14, 2025 1:39 [facility]05-16-2025 NoteHNO ID: [id number] Author: TORRES YAO MD Service: ? Author [...] due to psychiatrist's maternity leave and upcoming detention next fall. - Next psychology appointment in [...] 120 days. ketoconazole (NIZORAL) 2 % shampoo cp-kw-jmgo-FA-Ca carb-vit K (WOMEN'S MULTIVITAMIN) 18 mg-400 mcg- [...] EXPOSED ROOT (ELEVATION AND/OR FORCEPS REMOVAL) 1995 [place] TONSILLECTOMY PRIMARY/SECONDA (more content not included)...[facility]05-16-2025 History of Present illness Narrative* Torres Yao [...] due to psychiatrist's maternity leave and upcoming detention next fall. - Next psychology appointment in [...] 120 days. ketoconazole (NIZORAL) 2 % shampoo jc-sj-ebaj-FA-Ca carb-vit K (WOMEN'S MULTIVITAMIN) 18 mg-400 mcg- [...] EXPOSED ROOT (ELEVATION AND/OR FORCEPS REMOVAL) 1995 [place] TONSILLECTOMY PRIMARY/SECONDARY <AGE 11 1994 Tonsillectomy [...] with the psychiatrist upon her return. 2. group home (current) use of insulin (HCC) (Z79.4) - [...] to patient) Torres Yao MD Recording using Virt[employer] software for draft documentation of the visit was discussed with the patient/authorized factory representative; all questions welcomed and answered. Patient/authorized factory representative agreed to proceed documented in this encounterMartin Memorial Hospital05-16-2025 Instructions* Patient Instructions* Torres Yao MD [...] pain relief if needed. documented in this encounterMartin Memorial Hospital04-18-2025 Instructions* Patient Instructions* Freeman Sarabia PA-C [...] 3 months Continue to FU with the migratory farm hand for the neuropathy. FU with your psychiatrist regarding the sleep/miguel issues Continue with the kinesiology tape/roller ball on the feet. You can use CBD oil, just avoid THC, and delta 8 and delta 9. Supervising Physiciain - Dr. Isaac Cannon MD documented in this encounterMartin Memorial Hospital04-18-2025 NoteHNO ID: [id number] Author: FREEMAN SARABIA PA-C Service: ? Author Type: Physician Street Worker Type: Progress Notes Filed: 02/14/2025 13:55 Note Text: This note was created using [employer] Bioscien[employer]. Subjective Sheila Crowe is a 44 year [...] daily Benefit: helps Physical Therapy: 01/2025 - [place] PT Last UDS: 09/28/23 - not currently [...] EXPOSED ROOT (ELEVATION AND/OR FORCEPS REMOVAL) 1995 [place] TONSILLECTOMY PRIMARY/SECONDARY Tonsillectomy Social History Tobacco [...] the glenohumoral joint. ROM (more content not included)...[facility] 02-14-2025 History of Present illness Narrative* Freeman Sarabia PA-C - 02/14/2025 1:34 PM EDT This note was created using [employer]. Subjective Sheila Crowe is a 44 year [...] EXPOSED ROOT (ELEVATION AND/OR FORCEPS REMOVAL) 1995 [place] TONSILLECTOMY PRIMARY/SECONDARY <AGE 11 1994 Tonsillectomy [...] 3 months Continue to FU with the migratory farm hand for the neuropathy. FU with your psychiatrist [...] daily-helpful 09/17/24-b/l subacromial bursa documented in this encounterMartin Memorial Hospital04-18-2025 NoteHNO ID: [id number] Author: CARMEL STARK, RN Service: ? Author Type: Registered Nurse Type: Progress Notes Filed: 02/14/2025 13:55 Note Text: Lyrica am/ Meloxicam yest. Meds help pain Denies side effects TENS, daily-helpful 09/17/24-b/l subacromial [facility]ursProv[facility]04-[facility]25 NoteHNO ID: [id number] Author: JOVAN PAIGE, JESUS Service: ? Author Type: Physical Therapist [...] Goals for Episode of Care: established 11/25/24 Hettinger in home exercise program. Partially met Patient [...] Session Stop Time : 1620 Jovan Paige [facility]03-21-2025 NoteHNO ID: [id number] Author: LEMON, JOANNA, PT Service: ? Author Type: Physical Therapist [...] 1302 Session Stop Time : 1347 Joanna Rey, [facility]03-21-2025 History of Present illness Narrative* Joanna [...] 1347 Joanna Rey PT documented in this encounterMartin Memorial Hospital03-18-2025 NotePatient Outreach (FAMPWS) SHEILA CROWE ([id number]) 1980 F Date Time Provider Department [facility] visit today, we recorded the [...] for screening mammogram for breast cancer [Z12.31] Order(s):[facility] [place] SCREENING W CHANA [[id number]] Order #: [id number] FUTURE Prescriptions as of 02/14/2025 - pregabalin [...] - ketoconazole (NIZORAL) 2 % shampoo - ig-ci-ztih-FA-Ca carb-vit K (WOMEN'S MULTIVITAMIN) 18 mg-400 mcg- [...] Osteoarthritis of knee [M17.9] 03/18/2020 04/12/2023 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 Author [...] Stop Time : 1142 Rachel Whiteside, HARMAN Hart PT, DPT.[facility]03-13-2025 History of Present illness Narrative* Salvador Hart, PT - 01/09/2025 11:02 AM EDT Episode [...] : 1142 Rachel Whiteside, HARMAN Hart, PT, DPT. documented in this encounterMartin Memorial Hospital03-10-2025 NoteHNO ID: [id number] Author: JOANNA REY, PT Service: ? Author Type: Physical Therapist [...] Care: established 11/25/24 Goals updated on 01/06/2025. Hettinger in home exercise program.(Partially Met)-decreased frequency Patient [...] Patient to be seen for Therapeutic exercise (48698), Neuromuscular re-education (41521), Manual therapy (15945), Self-long-term management (12408), Patient/Family/Caregiver Education PLAN FOR NEXT VISIT: Continue [...] before stretching and co (more content not included)...[facility]03-10-2025 History of Present illness Narrative* Joanna Rey, [...] Care: established 11/25/24 Goals updated on 01/06/2025. Hettinger in home exercise program.(Partially Met)-decreased frequency Patient [...] Patient to be seen for Therapeutic exercise (94860), Neuromuscular re-education (32695), Manual therapy (31667), Self-long-term management (52733), Patient/Family/Caregiver Education PLAN FOR NEXT VISIT: Continue [...] 1302 Joanna Rey PT documented in this encounterMartin Memorial Hospital03-07-2025 NoteHNO ID: [id number] Author: JOANNA REY PT Service: ? Author [...] Stop Time : 1137 Rachel Whiteside, HARMAN Rey, [facility]03-07-2025 History of Present illness Narrative* Joanna [...] Whiteside, HARMAN Rey PT documented in this encounterMartin Memorial Hospital03-04-2025 NoteHNO ID: [id number] Author: KIMBERLEY TY PT Service: ? Author [...] : 1145 Session Stop Time : 1225 Rachel Alfonsostarla, INTERNET DESIGNER Kimberley Ty, [facility] History of Present illness Narrative* Kimberley Ty, PT - 12/31/2024 11:47 AM EST Episode [...] 1225 HARMAN Childs PT documented in this encounterMartin Memorial Hospital02-28-2025 Telephone encounter Note * Telephone Encounter - Freeman Sarabia PA-C - 12/27/2024 3:35 PM EST The following approved medication requests have been transmitted electronically. Requested Prescriptions Pending Prescriptions Disp Refills pregabalin (LYRICA) 150 mg capsule 90 capsule 3 Sig: Take 1 capsule by mouth three times a day for 120 days. Freeman Sarabia PA-C [facility]02-28-2025 Miscellaneous Notes* Telephone Encounter - Freeman [...] Panel: No results found for: UQCANN, UQBNZL, NZC4WBC, UQAMPH, UQMAMP, UQBUPRE, UQNORBUP, UQMTHD, UQEDDP, UQTRAM, [...] advise. Cass Frey RN documented in this encounterMartin Memorial Hospital02-28-2025 Telephone encounter Note * Telephone Encounter [...] Panel: No results found for: UQCANN, UQBNZL, GSH4GUZ, UQAMPH, UQMAMP, UQBUPRE, UQNORBUP, UQMTHD, UQEDDP, UQTRAM, [...] Please review and advise. Cass Frey RN [facility]02-25-2025 NoteHNO ID: [id number] Author: KIMBERLEY TY, PT Service: ? Author Type: Physical Therapist [...] Time (minutes): 42 Session Start Time : 1431 Session Stop Time : 1513 HARMAN Childs, [facility]02-25-2025 History of Present illness Narrative* Kimberley [...] Time (minutes): 42 Session Start Time : 1431 Session Stop Time : 1513 HARMAN Childs PT documented in this encounterMartin Memorial Hospital02-12-2025 History of Present illness Narrative* Rachel Whiteside PTA - 12/11/2024 3:19 PM EST Program_ID:[id number] Access Code: [email or web address] URL: [email or web address]/ Date: 12-11-2024 Prepared By: Rachel Whiteside Program [...] 2 sets - 10 reps * Kimberley Ty PT - 12/11/2024 2:47 PM EST Episode [...] 1526 HARMAN Childs PT documented in this encounterMartin Memorial Hospital02-12-2025 NoteHNO ID: [id number] Author: KIMBERLEY TY PT Service: ? Author [...] Session Stop Time : 1526 HARMAN Childs, [facility]02-10-2025 History of Present illness Narrative* Rachel Whiteside PTA - 12/09/2024 11:26 AM EST Program_ID:[id number] Access Code: [email or web address] URL: [email or web address] Date: 12-09-2024 Prepared By: Rachel Whiteside Program [...] 1137 HARMAN Childs PT documented in this encounterMartin Memorial Hospital02-10-2025 NoteHNO ID: [id number] Author: JOANNA REY PT Service: ? Author [...] Session Stop Time : 1137 Rachel Whiteside, INTERNET DESIGNER Joanna Rey, [facility]01-27-2025 History of Present illness Narrative* Joanna Rey, PT - 11/25/2024 6:05 PM EST Program_ID:[id number] Access Code: [email or web address] URL: [email or web address] Date: 11-25-2024 Prepared By: Salvador Hart Program [...] 2 sets - 10 reps * Joanna Rey PT - 11/25/2024 5:45 PM EST Images [...] Goals for Episode of Care: established 11/25/24 Hettinger in home exercise program. Patient will decrease [...] Planned: 16 Planned Treatment Interventions: Therapeutic exercise (45510), Neuromuscular re- education (79769), Manual therapy (14228), Self-long-term management (82516), Patient/Family/Caregiver Education PLAN FOR NEXT VISIT: Assess [...] mobility of L UE including sewing, using flower cutter for material (quilting), and is very active [...] Time : 1717 Session Stop Time : 1805 Joanna Rey PT documented in this encounterMartin Memorial Hospital01-27-2025 NoteHNO ID: [id number] Author: JOANNA REY PT Service: ? Author [...] Goals for Episode of Care: established 11/25/24 Hettinger in home exercise program. Patient will decrease [...] Planned: 16 Planned Treatment Interventions: Therapeutic exercise (59886), Neuromuscular re-education (20386), Manual therapy (48310), Self-long-term management (89670), Patient/Family/Caregiver Education PLAN FOR NEXT VISIT: Assess [...] mobility of L UE including sewing, using flower cutter for material (quilting), and is very active [...] LEVEL OF FUNCTION: Shou (more content not included)...[facility]01-24-2025 Instructions* Patient Instructions* Freeman Sarabia PA-C - [...] She would like to do this in [place]. Continue using the TENS unit. Continue doing your yoga and strengthening exercises, but make sure you give your body a chance to rest. FU in the office in 3 months Continue to FU with the migratory farm hand for the neuropathy. FU with your psychiatrist regarding the sleep/miguel issues Continue with the kinesiology tape/roller ball on the feet. You can use CBD oil, just avoid THC, and delta 8 and delta 9. Supervising Physiciain - Dr. Isaac Cannon MD documented in this encounterMartin Memorial Hospital01-24-2025 NoteHNO ID: [id number] Author: FREEMAN SARABIA PA-C Service: ? Author Type: Physician Street Worker Type: Progress Notes Filed: 11/22/2024 11:49 Note [...] daily Benefit: helps Physical Therapy: July - [place] PT Last UDS: 09/28/23 - not using [...] EXPOSED ROOT (ELEVATION AND/OR FORCEPS REMOVAL) 1995 [place] TONSILLECTOMY PRIMARY/SECONDARY Tonsillectomy Social History Tobacco [...] OARRS report has be (more content not included)...[facility] 11-22-2024 History of Present illness Narrative* Freeman Sarabia PA-C - 11/22/2024 11:30 AM EST This note was created using [employer]. Subjective Sheila Crowe is a 44 year [...] daily Benefit: helps Physical Therapy: July - PT Last UDS: 09/28/23 - not using [...] EXPOSED ROOT (ELEVATION AND/OR FORCEPS REMOVAL) 1995 [place] TONSILLECTOMY PRIMARY/SECONDARY <AGE 11 1994 Tonsillectomy [...] She would like to do this in [place]. Continue using the TENS unit. Continue doing your yoga and strengthening exercises, but make sure you give your body a chance to rest. FU in the office in 3 months Continue to FU with the migratory farm hand for the neuropathy. FU with your psychiatrist [...] daily-helpful 09/17/24-b/l subacromial bursa documented in this encounterMartin Memorial Hospital01-24-2025 NoteHNO ID: [id number] Author: CARMEL STARK RN Service: ? Author Type: Registered Nurse Type: Progress Notes Filed: 11/22/2024 11:49 Note Text: Lyrica am/ Meloxicam am Meds help pain Denies side effects TENS, daily-helpful 09/17/24-b/l subacromial bursProvidence [facility]berg [facility]11-26-2024 Telephone encounter Note* Telephone Encounter - Og Pastor LPN - 09/24/2024 8:41 AM EST Spoke with pt and information listed below given. Pt verbalizes understanding. Og Pastor LPN [facility]11-26-2024 Miscellaneous Notes* Telephone Encounter - Og [...] needed. Everything looks good. documented in this encounterMartin Memorial Hospital11-26-2024 Telephone encounter Note * Telephone Encounter - Og Pastor LPN - 09/24/2024 8:14 AM EST Left a message for pt to call the office and ask to speak to a nurse. Og Pastor LPN [facility]11-26-2024 Telephone encounter Note* Telephone Encounter - [...] No changes are needed. Everything looks good. [facility]11-19-2024 Surgery Surgical operation note* Operative Report [...] today: Shoulder (subacromial bursa injection with ultrasound) (01695-53, U/S) Laterality: Bilateral Approach: anterior Injectate: [1 [...] ordering physician as planned. Isaac Cannon MD [facility] Work Phone: 1(896) 683-564611-19-2024 Surgical operation note* Operative Report - Isaac [...] today: Shoulder (subacromial bursa injection with ultrasound) (22124-05, U/S) Laterality: Bilateral Approach: anterior Injectate: [1 [...] planned. Isaac Cannon MD documented in this encounterMartin Memorial Hospital11-14-2024 Instructions* Patient Instructions* Ellen Rene APRN.CNP - 09/12/2024 10:36 AM EST 1) Check labs 2) Follow up in 6 months documented in this encounterMartin Memorial Hospital11-14-2024 NoteHNO ID: [id number] Author: ELLEN RENE APRN.CNP Service: ? Author [...] EXPOSED ROOT (ELEVATION AND/OR FORCEPS REMOVAL) 1995 [place] TONSILLECTOMY PRIMARY/SECONDARY Tonsillectomy ALLERGIES Clindamycin, Levaquin [...] affected area. ketoconazole (NIZORAL) 2 % shampoo hs-pe-pcqf-FA-Ca carb-vit K (WOMEN'S MULTIVITAMIN) 18 mg-400 mcg- [...] sounds: Normal heart sound (more content not included)...[facility]11-14-2024 History of Present illness Narrative* Ellen Rene APRN.BASHIR - 09/12/2024 10:16 AM EST This is [...] EXPOSED ROOT (ELEVATION AND/OR FORCEPS REMOVAL) 1995 [place] TONSILLECTOMY PRIMARY/SECONDARY <AGE 12 1994 Tonsillectomy [...] affected area. ketoconazole (NIZORAL) 2 % shampoo xj-tl-lhmt-FA-Ca carb-vit K (WOMEN'S MULTIVITAMIN) 18 mg-400 mcg- [...] as needed for worsening/no improvement. Ellen Rene APRN.RUFFLING MACHINE OPERATOR documented in this encounterMartin Memorial Hospital10-30-2024 Instructions* Patient Instructions* Freeman Sarabia PA-C [...] 3 months Continue to FU with the migratory farm hand for the neuropathy. FU with your psychiatrist [...] subacromial bursa injections x 1 visit A emergency detail driver is required: No Oral Sedation is requested : No If you are receiving oral sedation, you may eat a light meal. Clothing to wear: Back injections - elastic waist/jogging pants Neck injections - wide neck or button down shirt; please do not wear neck jewelry Plan to take it easy the rest of the day following your procedure. You may resume normal [id number] hours following your procedure or as otherwise instructed. Special Instructions - NONE documented in this encounterMartin Memorial Hospital10-30-2024 NoteHNO ID: [id number] Author: FREEMAN SARABIA PA-C Service: ? Author Type: Physician Street Worker Type: Progress Notes Filed: 08/28/2024 13:37 Note Text: This note was created using [employer]. Subjective Sheila Crowe is a 43 year [...] daily Benefit: helps Physical Therapy: now - [place] [facility] Last UDS: Last injection: 01/04/24 - [...] EXPOSED ROOT (ELEVATION AND/OR FORCEPS REMOVAL) 1995 [place] TONSILLECTOMY PRIMARY/SECONDARY Tonsillectomy Social History Tobacco [...] the patients medical history (more content not included)...[facility]10-30-2024 History of Present illness Narrative* Freeman Sarabia PA-C - 08/28/2024 1:17 PM EDT This note was created using Predixion Softwareter. Subjective Sheila Crowe is a 43 year [...] daily Benefit: helps Physical Therapy: now - [place] PT Last UDS: Last injection: 01/04/24 - [...] EXPOSED ROOT (ELEVATION AND/OR FORCEPS REMOVAL) 1995 [place] TONSILLECTOMY PRIMARY/SECONDARY <AGE 11 1994 Tonsillectomy [...] 3 months Continue to FU with the migratory farm hand for the neuropathy. FU with your psychiatrist regarding the sleep/miguel issues Continue with the kinesiology tape/roller ball on the feet. You can use CBD oil, just avoid THC, and delta 8 and delta 9. Schedule bilateral subacromial bursa injections x 1 visit. Freeman Sarabia PA-C documented in this encounterMartin Memorial Hospital10-30-2024 Nurse Note* Carmel Stark RN - 08/28/2024 1:05 PM EDT Lyrica am/ Meloxicam am Meds help pain Denies side effects TENS, daily-helpful 01/04/24-b/l subacromial bursa [facility]10-30-2024 Nurse Note* Carmel Stark RN - 08/28/2024 1:05 PM EDT Lyrica am/ Meloxicam am Meds help pain Denies side effects TENS, daily-helpful 01/04/24-b/l subacromial bursa documented in this encounterMartin Memorial Hospital10-09-2024 NoteHNO ID: [id number] Author: SALVADOR HART PT Service: ? Author [...] treatment included: Therapeutic exercise, Manual therapy, and Self-long-term management. Updated 07/04/24 AND 08/07/24. Goals for Episode of Care: created on 06/03/24 through 08/18/24 Hettinger in home exercise program. (Goal Met) Patient [...] Session Stop Time : 1200 Salvador Hart [facility]10-09-2024 History of Present illness Narrative* Salvador [...] treatment included: Therapeutic exercise, Manual therapy, and Self-long-term management. Updated 07/04/24 & 08/07/24. Goals for Episode of Care: created on 06/03/24 through 08/18/24 Hettinger in home exercise program. (Goal Met) Patient [...] 1200 Salvador Hart PT documented in this encounterMartin Memorial Hospital09-25-2024 History of Present illness Narrative* Salvador Hart, PT - 07/24/2024 11:54 AM EDT Program_ID:[id number] Access Code: [email or web address] URL: [email or web address]/ Date: 07-24-2024 Prepared By: Salvador Hart Program [...] 10 reps * Salvador Hart, PT - 07/24/2024 11:14 AM EDT Episode [...] PPT in Seated Position on Table and [place] Ball. The patient will continue to benefit [...] FUNCTION: Trouble with form of PPT on Macanese Ball. TREATMENT: Therapeutic Exercise: 1: Sci-Fit: 5 [...] 1159 Salvador Hart PT documented in this encounterMartin Memorial Hospital09-25-2024 NoteHNO ID: [id number] Author: SALVADOR HART PT Service: ? Author [...] PPT in Seated Position on Table and [place]anese Ball. The patient will continue to benefit [...] FUNCTION: Trouble with form of PPT on Macanese Ball. TREATMENT: Therapeutic Exercise: 1: Sci-Fit: 5 [...] Session Stop Time : 1159 Salvador Hart [facility]09-17-2024 Telephone encounter Note * Telephone Encounter - Freeman Sarabia PA-C - 07/16/2024 10:17 AM EDT The following approved medication requests have been transmitted electronically. Requested Prescriptions Pending Prescriptions Disp Refills pregabalin (LYRICA) 100 mg capsule 90 capsule 3 Sig: Take 1 capsule by mouth three times a day for 120 days. Freeman Sarabia PA-C [facility]09-17-2024 Miscellaneous Notes* Telephone Encounter - Freeman [...] 16, 2024 10:12 AM documented in this encounterMartin [facility] Hospital09-[facility]24 Telephone encounter Note * Telephone Encounter - Hilda Carvalho RN - 07/16/2024 10:12 AM EDT Since [facility] closed pt no longer has Rfs at pharmacy. New RX requested. Hilda Carvalho RN July 16, 2024 10:12 AM [facility]09-11-2024 NoteHNO ID: [id number] Author: SALVADOR HART, PT Service: ? Author [...] and assessment of patient's response to intervention. Self-Senior Care Management: 1: *Discussed sleeping positions and pillow [...] Session Stop Time : 1524 Salvador Hart [facility]09-11-2024 History of Present illness Narrative* Salvador [...] and assessment of patient's response to intervention. Self-Senior Care Management: 1: *Discussed sleeping positions and pillow [...] 1524 Salvador Hart PT documented in this encounterMartin Memorial Hospital09-05-2024 NoteHNO ID: [id number] Author: SALVADOR HART PT Service: ? Author Type: Physical Therapist Type: Progress Notes Filed: 07/04/2024 13:00 Note Text: Episode Visit Count: 4 Therapist That Will Accept/Oversee The Plan Of Care: Salvador Hailey, PT. Start of Care Date: 06/03/24 Onset [...] of Care: created on 06/03/24 through 08/18/24 Hettinger in home exercise program. (Currently Met) Patient [...] Patient to be seen for Therapeutic exercise (79642), Neuromuscular re-education (79019), Manual therapy (19603), Therapeutic activities (34154), Self-long-term management (40148), Body Mechanics Training, Patient/Family/Caregiver Education PLAN FOR [...] feels better per patient.) Lumbar R Side Lodi: Minimal limitation Lumbar L Side L[place]: Minimal limitation Lumbar R Side-Bend: Normal Lumbar L Side-Bend: Normal Lumbar R Rotation: Normal Lumbar L Rotation: Normal LE Strength Trunk Strength: 4+/5 R LE Strength: 5/5 gross L LE Strength: 5/5 gross Special Tests - Hip and Spine Hip and Spine Special Tests: SLR Test, Slump Test, CHI Test SLR Test: Right Negative, Left Negative Slum (more content not included)...[facility]09-05-2024 History of Present illness Narrative* Salvador Hart, [...] of Care: created on 06/03/24 through 08/18/24 Hettinger in home exercise program. (Currently Met) Patient [...] Patient to be seen for Therapeutic exercise (14124), Neuromuscular re-education (09250), Manual therapy (30783), Therapeutic activities (67956), Self-long-term management (33702), Body Mechanics Training, Patient/Family/Caregiver Education PLAN FOR [...] feels better per patient.) Lumbar R Side Lodi: Minimal limitation Lumbar L Side L[place]: Minimal limitation Lumbar R Side-Bend: Normal Lumbar [...] education as noted. Manual Therapy: 1: Long [place] and Short [place] Hip Distraction Bilaterally: Pull to tolerance. (Both [...] 1128 Salvador Hart PT documented in this encounterMartin Memorial Hospital08-29-2024 NoteHNO ID: [id number] Author: JOVAN PAIGE PT Service: ? Author [...] was facilitated with verbal and visual cuing. Self-Senior Care Management: 1: Discussed symptoms of cauda equina [...] Session Stop Time : 1100 HARMAN Childs, [facility]08-29-2024 History of Present illness Narrative* Jovan [...] was facilitated with verbal and visual cuing. Self-Senior Care Management: 1: Discussed symptoms of cauda equina [...] 1100 HARMAN Childs PT documented in this encounterMartin Memorial Hospital08-23-2024 History of Present illness Narrative* Aicha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 Narrative* Torres Yao MD - 10/13/2023 1:53 PM EST Patient presents with: 6 Month Exam HPI: Patient presents today for office visit for follow up. Neuropathy in bilateral feet and legs. Had EMG with podiatry 07/17/23 Dr eVe but hasn't been given results yet. Previously [...] affected area. ketoconazole (NIZORAL) 2 % shampoo bk-ic-ukbg-FA-Ca carb-vit K (WOMEN'S MULTIVITAMIN) 18 mg-400 mcg- [...] EXPOSED ROOT (ELEVATION AND/OR FORCEPS REMOVAL) 1995 [place] TONSILLECTOMY PRIMARY/SECONDARY <AGE 12 1994 Tonsillectomy [...] detail. Influenza Vaccine(1) due on 06/30/2023 Covid-19 Vaccine(3 - season) due on 06/30/2023 Pap Testing due [...] for annual exam in one year. - [facility] - [place] SCREENING Torres Yao MD documented in this encounterMartin Memorial Hospital12-11-2023 Miscellaneous Notes* Telephone Encounter - Freeman Sarabia PA-C - 10/09/2023 2:27 PM EST The following approved medication requests have been transmitted electronically. Requested Prescriptions Pending Prescriptions Disp Refills pregabalin (LYRICA) 75 mg capsule 90 capsule 3 Sig: Take 1 capsule by mouth three times a day for 120 days. Freeman Sarabia PA-C * Telephone Encounter - Kristal Luo RN - 10/09/2023 1:19 PM EST Patient phones requesting refills as follows: Requested Prescriptions Pending Prescriptions Disp Refills pregabalin (LYRICA) 75 mg capsule 90 capsule 3 Sig: Take 1 capsule by mouth three times a day for 120 days. Please review and advise. Kristal Luo RN documented in this encounterMartin Memorial Hospital11-30-2023 Instructions* Patient Instructions* Freeman Sarabia PA-C [...] 6 weeks Continue to FU with the migratory farm hand for the neuropathy. Continue with the kinesiology [...] seen at this time. documented in this encounterMartin Memorial Hospital11-30-2023 History of Present illness Narrative* Freeman Sarabia PA-C - 09/28/2023 2:00 PM EST This note was created using [employer]. Subjective Sheila Crowe is a 42 year [...] EXPOSED ROOT (ELEVATION AND/OR FORCEPS REMOVAL) 1995 [place] TONSILLECTOMY PRIMARY/SECONDARY <AGE 12 1994 Tonsillectomy [...] 6 weeks Continue to FU with the migratory farm hand for the neuropathy. Continue with the kinesiology [...] - ICD9: 356.9, ICD10: G57.93 8. 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 documented in this encounterMartin Memorial Hospital11-20-2023 Miscellaneous Notes* Telephone Encounter - Freeman [...] 2023. Nydia Mike RN documented in this encounterMartin Memorial Hospital10-31-2023 Hospital Discharge instructions* Discharge Instr - [...] normally would, but you do need a emergency detail driver. Additional Instructions: documented in this encounterMartin Memorial Hospital10-31-2023 Surgical operation note* Operative Report - Min Velazco MD - 08/29/2023 2:52 PM EDT Summary: Bilateral subacromial bursae injection Subacromial Bursa Injection PROCEDURE: Bilateral subacromial bursa injection CPT code: 95583-89 PREPROCEDURE DIAGNOSIS: subacromial bursitis POSTPROCEDURE DIAGNOSIS: same [...] 2023 TIME: 2:52 PM documented in this encounterMartin Memorial Hospital10-27-2023 History of Present illness Narrative* Geno [...] 25, 2023 10:14 AM documented in this encounterMartin Memorial Hospital10-27-2023 Instructions* Patient Instructions* Freeman Sarabia PA-C [...] 1 visit. 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 Continue with the kinesiology [...] seen at this time. documented in this encounterMartin Memorial Hospital10-27-2023 History of Present illness Narrative* Freeman Sarabia PA-C - 08/25/2023 9:02 AM EDT This note was created using [employer]. Subjective Sheila Crowe is a 42 year [...] EXPOSED ROOT (ELEVATION AND/OR FORCEPS REMOVAL) 1995 [place] TONSILLECTOMY PRIMARY/SECONDARY <AGE 12 1994 Tonsillectomy [...] 1 visit. 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 Continue with the kinesiology [...] G57.93 Freeman Sarabia PA-C documented in this encounterMartin Memorial Hospital10-23-2023 Miscellaneous Notes* Telephone Encounter - Freeman [...] advise. Kristal Luo RN documented in this encounterMartin Memorial Hospital09-21-2023 Miscellaneous Notes* Telephone Encounter - Freeman Sarabia PA-C - 07/20/2023 12:16 PM EDT The following approved medication requests have been transmitted electronically. Requested Prescriptions Pending Prescriptions Disp Refills pregabalin (LYRICA) 75 mg capsule 60 capsule 3 Sig: Take 1 capsule by mouth twice daily for 120 days. Freeman Sarabia PA-C * Telephone Encounter - Nydia Mike RN - 07/20/2023 11:50 AM EDT Patient [...] days. Nydia Mike RN documented in this encounterMartin Memorial Hospital09-14-2023 Instructions* Patient Instructions* Freeman Sarabia PA-C [...] 6 weeks Continue to FU with the migratory farm hand and get the EMG done in June. [...] seen at this time. documented in this encounterMartin Memorial Hospital09-14-2023 History of Present illness Narrative* Freeman Sarabia PA-C - 07/13/2023 1:26 PM EDT This note was created using [employer]. Subjective Sheila Crowe is a 42 year [...] EXPOSED ROOT (ELEVATION AND/OR FORCEPS REMOVAL) 1995 [place] TONSILLECTOMY PRIMARY/SECONDARY <AGE 12 1994 Tonsillectomy [...] 6 weeks Continue to FU with the migratory farm hand and get the EMG done in June. [...] M75.52 Freeman Sarabia PA-C documented in this encounterMartin Memorial Hospital08-28-2023 Miscellaneous Notes* Telephone Encounter - Freeman [...] Rx set up to send electronically in [employer]. Nydia Mike RN June 26, 2023 2:01 PM Patient phones requesting refills as follows: Requested Prescriptions Pending Prescriptions Disp Refills pregabalin (LYRICA) 50 mg capsule 60 capsule 3 Sig: Take 1 capsule by mouth twice daily for 120 days. Nydia Mike RN documented in this encounterMartin Memorial Hospital08-22-2023 Miscellaneous Notes* Telephone Encounter - Kristal Luo RN - 06/20/2023 7:50 AM EDT Patient phones requesting refills as follows: Requested Prescriptions Pending Prescriptions Disp Refills buprenorphine (BELBUCA) 150 mcg buccal film 60 Film 0 Sig: Place 1 Film between cheek and gum every 12 hours for 30 days. Do not start before June 21, 2023. Please review and advise. Kristal Luo RN documented in this encounterMartin Memorial Hospital08-03-2023 Hospital Discharge instructions* Discharge Instr - [...] normally would, but you do need a emergency detail driver. Additional Instructions: documented in this encounterMartin Memorial Hospital08-03-2023 Surgical operation note* Operative Report - Min Velazco MD - 06/01/2023 4:17 PM EDT Summary: Left subacromial bursa injection Subacromial Bursa Injection PROCEDURE: Left subacromial bursa injection CPT code: 32804 PREPROCEDURE DIAGNOSIS: subacromial bursitis POSTPROCEDURE DIAGNOSIS: same [...] 2023 TIME: 4:17 PM documented in this encounterMartin Memorial Hospital08-02-2023 Miscellaneous Notes* Telephone Encounter - Freeman [...] Injection - Left shoulder - subacromial A emergency detail driver is required: No Oral Sedation is requested : No If you are receiving oral sedation, you may eat a light meal. Clothing to wear: Back injections - elastic waist/jogging pants Neck injections - wide neck or button down shirt; please do not wear neck jewelry Plan to take it easy the rest of the day following your procedure. You may resume normal [id number] hours following your procedure or as otherwise instructed. Special Instructions - NONE documented in this encounterMartin Memorial Hospital07-28-2023 Instructions* Patient Instructions* Freeman Sarabia PA-C [...] weeks Continue to FU with the new migratory farm hand and get the EMG done in June. [...] seen at this time. documented in this encounterMartin Memorial Hospital07-28-2023 History of Present illness Narrative* Freeman Sarabia PA-C - 05/26/2023 1:24 PM EDT This note was created using [employer]. Subjective Sheila Crowe is a 42 year [...] or ER visits. She saw the new migratory farm hand and he has ordered an EMG that [...] EXPOSED ROOT (ELEVATION AND/OR FORCEPS REMOVAL) 1995 [place] TONSILLECTOMY PRIMARY/SECONDARY <AGE 12 1994 Tonsillectomy [...] weeks Continue to FU with the new migratory farm hand and get the EMG done in June. [...] M75.52 Freeman Sarabia PA-C documented in this encounterMartin Memorial Hospital05-05-2023 Instructions* Patient Instructions* Freeman Sarabia PA-C - 03/03/2023 9:51 AM EDT The OARRS report has been reviewed and is consistent with the patients medical history and medication intake. The patient underwent a random UDS at today's office visit. Continue with belbuca, gabapentin, cyclobenzaprine, meloxicam, and diclofenac gel We will send an order to [facility] for a new TENS unit to use [...] seen at this time. documented in this encounterMartin Memorial Hospital05-05-2023 History of Present illness Narrative* Freeman Sarabia PA-C - 03/03/2023 9:26 AM EDT This note was created using [employer]. Subjective Sheila Crowe is a 42 year [...] EXPOSED ROOT (ELEVATION AND/OR FORCEPS REMOVAL) 1995 [place] TONSILLECTOMY PRIMARY/SECONDARY <AGE 12 1994 Tonsillectomy [...] gel We will send an order to [facility] for a new TENS unit to use [...] ICD9: 726.19, ICD10: M75.51, M75.52 6. 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 Nydia Mike RN documented in this encounterMartin Memorial Hospital04-06-2023 Hospital Discharge instructions* Discharge Instr - [...] normally would, but you do need a emergency detail driver. Additional Instructions: documented in this encounterMartin Memorial Hospital04-06-2023 Surgical operation note* Operative Report - Min Velazco MD - 02/02/2023 10:28 AM EDT Summary: Left subacromial bursa injection Subacromial Bursa Injection PROCEDURE: Left subacromial bursa injection CPT code: 53674 PREPROCEDURE DIAGNOSIS: subacromial bursitis POSTPROCEDURE DIAGNOSIS: same [...] 2023 TIME: 10:29 AM documented in this encounterMartin Memorial Hospital03-24-2023 Instructions* Patient Instructions* Freeman Sarabia PA-C - 01/20/2023 9:49 AM EDT The OARRS report has been reviewed and is consistent with the patients medical history and medication intake. Continue with belbuca, gabapentin, cyclobenzaprine, meloxicam, and diclofenac gel Call your TENS company and find out if they are able to fix/replace your unit. If not, we will senda new order to [facility]. Continue doing your yoga and strengthening exercises, [...] subacromial bursa injection x 1 visit A emergency detail driver is required: No Oral Sedation is requested : No If you are receiving oral sedation, you may eat a light meal. Clothing to wear: Back injections - elastic waist/jogging pants Neck injections - wide neck or button down shirt; please do not wear neck jewelry Plan to take it easy the rest of the day following your procedure. You may resume normal [id number] hours following your procedure or as otherwise instructed. Special Instructions - NONE documented in this encounterMartin Memorial Hospital03-24-2023 History of Present illness Narrative* Freeman Sarabia PA-C - 01/20/2023 9:22 AM EDT This note was created using [employer]. Subjective Sheila Crowe is a 42 year [...] EXPOSED ROOT (ELEVATION AND/OR FORCEPS REMOVAL) 1995 [place] TONSILLECTOMY PRIMARY/SECONDARY <AGE 12 1994 Tonsillectomy [...] not, we will senda new order to [facility]. Continue doing your yoga and strengthening exercises, [...] (05/2020) Freeman Sarabia PA-C documented in this encounterMartin Memorial Hospital02-28-2023 Miscellaneous Notes* Telephone Encounter - Freeman [...] advise. Kristal Luo RN documented in this encounterMartin Memorial Hospital02-09-2023 Miscellaneous Notes* Letter - Mammography Coordinator - 12/08/2022 9:23 PM EST December 09, 2022 PID: [id number] Sheila Crowe [address] [place] [address] Dear Ms. Crowe, We are pleased to [...] report [facility] medical [facility] and are available for your continuing care. Thank you for allowing us to help in meeting your health care needs. Sincerely, Dr. Gama Interpreting Radiologist [facility] (Normal over 40) documented in this encounterMartin Memorial Hospital02-09-2023 History of Present illness Narrative* Ronel Lewis Mammo Pelon - 12/08/2022 10:10 AM EST Radiology Service [...] PERIPHERAL IV DATA: Not applicable SIGNED BY: Huan Patelo Pelon December 08, 2022 9:56 AM documented in this encounterMartin Memorial Hospital02-01-2023 Miscellaneous Notes* Telephone Encounter - Freeman Sarabia PA-C - 11/30/2022 2:38 PM EST The following approved medication requests have been transmitted electronically. Requested Prescriptions Pending Prescriptions Disp Refills cyclobenzaprine (FLEXERIL) 10 mg tablet 90 tablet 3 Sig: Take 1 tablet by mouth three times daily as needed for muscle spasm. Freeman Sarabia PA-C * Telephone Encounter - Kristal Luo RN - 11/30/2022 2:31 PM EST Ordered per Dr Velazco at office visit Patient phones requesting refills as follows: Requested Prescriptions Pending Prescriptions Disp Refills cyclobenzaprine (FLEXERIL) 10 mg tablet 90 tablet 3 Sig: Take 1 tablet by mouth three times daily as needed for muscle spasm. Please review and advise. Kristal Luo, RN documented in this encounterMartin Memorial Hospital02-01-2023 Instructions* Patient Instructions* Min Velazco MD - 11/30/2022 1:50 PM EST Patient will be switched back to cyclobenzaprine from metaxalone. She will continue with Belbuca, gabapentin, meloxicam, and diclofenac gel. She will continue using her TENS unit. She will continue with yoga and stretching exercises. Follow-up in office in 6 weeks time. documented in this encounterMartin Memorial Hospital02-01-2023 History of Present illness Narrative* Min Velazco MD - 11/30/2022 1:30 PM EST This note was created using [employer]. Subjective Sheila Crowe is a 42 year [...] errors. Min Velazco MD documented in this encounterMartin Memorial Hospital01-24-2023 Miscellaneous Notes* Telephone Encounter - Freeman [...] advise. Kristal Luo RN documented in this encounterMartin Memorial Hospital12-15-2022 Instructions* Patient Instructions* Freeman Sarabia PA-C [...] seen at this time. documented in this encounterMartin Memorial Hospital12-15-2022 History of Present illness Narrative* Freeman Sarabia PA-C - 10/13/2022 1:26 PM EST This note was created using [employer]. Subjective Sheila Crowe is a 42 year [...] EXPOSED ROOT (ELEVATION AND/OR FORCEPS REMOVAL) 1995 [place] TONSILLECTOMY PRIMARY/SECONDARY <AGE 12 1994 Tonsillectomy [...] M75.52 Freeman Sarabia PA-C documented in this encounterMartin Memorial Hospital11-23-2022 Miscellaneous Notes* Telephone Encounter - Viki [...] significant at this level. documented in this encounterMartin Memorial Hospital11-18-2022 Miscellaneous Notes* Telephone Encounter - Freeman [...] advise. Kristal Luo RN documented in this encounterMartin Memorial Hospital11-17-2022 Hospital Discharge instructions* Discharge Instr - [...] normally would, but you do need a emergency detail driver. Additional Instructions: documented in this encounterMartin Memorial Hospital11-17-2022 Surgical operation note* Operative Report - Min Velazco MD - 09/15/2022 10:54 AM EST Summary: Bilateral subacromial bursae injection Subacromial Bursa Injection PROCEDURE: Bilateral subacromial bursae injection CPT code: 80329-63 PREPROCEDURE DIAGNOSIS: subacromial bursitis POSTPROCEDURE DIAGNOSIS: same [...] 2022 TIME: 10:55 AM documented in this encounterMartin Memorial Hospital11-03-2022 Instructions* Patient Instructions* Freeman Sarabia PA-C [...] 1 visits. If that is not beneficial, ronny then pursue x-rays. I discussed the patient with Dr. Velazco who agrees with my assessment and plan. All of the above is to improve functionality and quality of life. No evidence of drug abuse or diversion is seen at this time. Procedure to be done: Joint Injection - bilateral subacromial bursa cortisone injections x 1 visit. A emergency detail driver is required: No Oral Sedation is requested : No If you are receiving oral sedation, you may eat a light meal. Clothing to wear: Back injections - elastic waist/jogging pants Neck injections - wide neck or button down shirt; please do not wear neck jewelry Plan to take it easy the rest of the day following your procedure. You may resume normal [id number] hours following your procedure or as otherwise instructed. Special Instructions - NONE documented in this encounterMartin Memorial Hospital11-03-2022 History of Present illness Narrative* Freeman Sarabia PA-C - 09/01/2022 2:00 PM EDT This note was created using [employer]. Subjective Sheila Crowe is a 41 year [...] they had mentioned referring her to a hand spring repairer in the past. The pain has been [...] EXPOSED ROOT (ELEVATION AND/OR FORCEPS REMOVAL) 1995 [place] TONSILLECTOMY PRIMARY/SECONDARY <AGE 12 1994 Tonsillectomy [...] - ICD9: 720.2, ICD10: M46.1 5. 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 - ICD9: V58.69, ICD10: Z79.899 - DRUG SCR TOXASURE 6. Subacromial bursitis of both shoulders - ICD9: 726.19, ICD10: M75.51, M75.52 Freeman Sarabia PA-C documented in this encounterMartin Memorial Hospital10-20-2022 Miscellaneous Notes* Telephone Encounter - Kristal [...] advise. Kristal Luo RN documented in this encounterMartin Memorial Hospital09-21-2022 Instructions* Patient Instructions* Freeman Sarabia PA-C [...] seen at this time. documented in this encounterMartin Memorial Hospital09-21-2022 History of Present illness Narrative* Freeman Sarabia PA-C - 07/20/2022 1:45 PM EDT This note was created using [employer]. Subjective Sheila Crowe is a 41 year [...] EXPOSED ROOT (ELEVATION AND/OR FORCEPS REMOVAL) 1995 [place] TONSILLECTOMY PRIMARY/SECONDARY <AGE 12 1994 Tonsillectomy [...] M46.1 Freeman Sarabia PA-C documented in this encounterMartin Memorial Hospital08-22-2022 Miscellaneous Notes* Telephone Encounter - Freeman [...] 2022. Kristal Luo RN documented in this encounterMartin Memorial Hospital08-11-2022 Instructions* Patient Instructions* Freeman Sarabia PA-C [...] seen at this time. documented in this encounterMartin Memorial Hospital08-11-2022 History of Present illness Narrative* Freeman Sarabia PA-C - 06/09/2022 1:45 PM EDT This note was created using [employer]. Subjective Sheila Crowe is a 41 year [...] EXPOSED ROOT (ELEVATION AND/OR FORCEPS REMOVAL) 1995 [place] TONSILLECTOMY PRIMARY/SECONDARY <AGE 12 1994 Tonsillectomy [...] M46.1 Freeman Sarabia PA-C documented in this encounterMartin Memorial Hospital07-21-2022 Miscellaneous Notes* Telephone Encounter - Freeman [...] advise. Kristal Luo RN documented in this encounterMartin Memorial Hospital07-11-2022 Miscellaneous Notes* Telephone Encounter - Kristal Luo RN - 05/09/2022 1:59 PM EDT Patient phones requesting refills as follows: Pending Prescriptions Disp Refills GABAPENTIN 600 MG TABLET 120 tablet 3 Sig: Take 1 tablet by mouth four times daily for 30 days. PEDRO: No Please review and advise. Kristal Luo RN documented in this encounterMartin Memorial Hospital05-09-2022 History of Present illness Narrative* Torres [...] EXPOSED ROOT (ELEVATION AND/OR FORCEPS REMOVAL) 1995 [place] teeth TONSILLECTOMY PRIMARY/SECONDARY <AGE 11 1994 Tonsillectomy [...] six months and prn. [facility] Miscellaneous Notes* Telephone Encounter - Adiel [...] advise, Gina Schultz RN [facility] Hospital Discharge instructions Patient Education 01/08/2022 [...] wound area that doesn t go away [id number] [employer] [address] [place] [address]. All rights reserved. This information is not intended as a substitute for professional medical care. Always follow yourhealthcare professional's instructions. Follow Up Care 01/08/2022 19:56:41 With:TORRES YAO MD, [facility], [facility] Address: [address] [address]- When:2-4 days [facility] 10-15-2021 Hospital Discharge instructions Patient Education [...] there) Anxiety, depression Several days without sleeping [id number] [employer] [address] [place] [address], [place] [address]. All rights reserved. This information is not intended as a substitute for professional medical care. Always follow yourhealthcare professional's instructions. 08/13/2021 14:51:56 Drug Reaction, Other [...] large amounts of blood in stool Seizure [id number] [employer] [address] [place] [address], [place] [address]. All rights reserved. This information is not intended as a substitute for professional medical care. Always follow yourhealthcare professional's instructions. Follow Up Care 08/13/2021 14:28:58 With:TORRES YAO MD, [facility], [facility] Address: [facility] [address] [place] [address]- When:2-4 days [facility] 05-20-2020 History of Past illness Narrative* [...] of this encounter (statuses as of 05/26/2023) [facility] Narr[facility]* Problem [...] of this encounter (statuses as of 05/31/2023) [facility] Narrative* Problem [...] of this encounter (statuses as of 06/02/2023) [facility] Narrative* Problem [...] of this encounter (statuses as of 06/20/2023) [facility] Narrative* Problem [...] of this encounter (statuses as of 06/27/2023) [facility] Narrative* Problem [...] of this encounter (statuses as of 07/13/2023) [facility] Narr[facility]* Problem [...] of this encounter (statuses as of 07/21/2023) [address]20-2020 History of Past illness Narrative* Problem [...] of this encounter (statuses as of 08/21/2023) [address]2020 History of Past illness Narrative* Problem [...] of this encounter (statuses as of 08/25/2023) [address]2020 History of Past illness Narrative* Problem [...] of this encounter (statuses as of 08/26/2023) [facility] Narr[facility]* Problem [...] of this encounter (statuses as of 08/30/2023) [facility]arr[facility]* Problem [...] of this encounter (statuses as of 09/03/2023) [facility]* Problem [...] of this encounter (statuses as of 09/19/2023) [facility]* Problem [...] of this encounter (statuses as of 09/27/2023) [address]2020 History of Past illness Narrative* Problem [...] of this encounter (statuses as of 09/28/2023) [address]2020 History of Past illness Narrative* Problem [...] of this encounter (statuses as of 10/10/2023) [address]2020 History of Past illness Narrative* Problem [...] of this encounter (statuses as of 10/14/2023) [facility]* Problem [...] of this encounter (statuses as of 12/12/2023) [facility]arr[facility]* Problem [...] of this encounter (statuses as of 12/14/2023) [place] [address]2020 History of Past illness Narrative* Problem Noted [...] of this encounter (statuses as of 12/15/2023) [address]2020 History of Past illness Narrative* Problem [...] of this encounter (statuses as of 12/22/2023) [address]2020 History of Past illness Narrative* Problem [...] of this encounter (statuses as of 01/05/2024) [address]2020 History of Past illness Narrative* Problem [...] of this encounter (statuses as of 01/18/2024) [address]2020 History of Past illness Narrative* Problem [...] of this encounter (statuses as of 01/30/2024) [address]2020 History of Past illness Narrative* Problem [...] of this encounter (statuses as of 02/08/2024) [facility]* Problem [...] of this encounter (statuses as of 02/09/2024) [facility] Narrative* Problem Noted Date Resolved Date Type II or unspecified type diabetes mellitus without mention of complication, not stated as uncontrolled 02/03/2014 Elevated blood pressure read ing without diagnosis of hypertension 11/29/2006 08/05/2016 Other acne 11/29/2006 09/06/2021 documented as of this encounter (statuses as of 01/20/2022) [facility] Narrative* Problem Noted Date Resolved Date Type II or unspecified type diabetes mellitus without mention of complication, not stated as uncontrolled 02/03/2014 Elevated blood pressure read ing without diagnosis of hypertension 11/29/2006 08/05/2016 Other acne 11/29/2006 09/06/2021 documented as of this encounter (statuses as of 01/31/2022) [facility] Narrative* Problem Noted Date Resolved Date Type II or unspecified type diabetes mellitus without mention of complication, not stated as uncontrolled 02/03/2014 Morbid obesity 01/01/2009 03/07/2022 Elevated blood pressure read ing without diagnosis of hypertension 11/29/2006 08/05/2016 Other acne 11/29/2006 09/06/2021 documented as of this encounter (statuses as of 03/07/2022) [address]07-2014 History of Past illness Narrative* Problem Noted Date Resolved Date Type II or unspecified type diabetes mellitus without mention of complication, not stated as uncontrolled 02/03/2014 Morbid obesity 01/01/2009 03/07/2022 Elevated blood pressure read ing without diagnosis of hypertension 11/29/2006 08/05/2016 Other acne 11/29/2006 09/06/2021 documented as of this encounter (statuses as of 03/29/2022) [address]07-2014 History of Past illness Narrative* Problem Noted Date Resolved Date Type II or unspecified type diabetes mellitus without mention of complication, not stated as uncontrolled 02/03/2014 Morbid obesity 01/01/2009 03/07/2022 Elevated blood pressure read ing without diagnosis of hypertension 11/29/2006 08/05/2016 Other acne 11/29/2006 09/06/2021 documented as of this encounter (statuses as of 05/09/2022) [address]07-2014 History of Past illness Narrative* Problem Noted Date Resolved Date Type II or unspecified type diabetes mellitus without mention of complication, not stated as uncontrolled 02/03/2014 Morbid obesity 01/01/2009 03/07/2022 Elevated blood pressure read ing without diagnosis of hypertension 11/29/2006 08/05/2016 Other acne 11/29/2006 09/06/2021 documented as of this encounter (statuses as of 05/19/2022) [address]07-2014 History of Past illness Narrative* Problem Noted Date Resolved Date Type II or unspecified type diabetes mellitus without mention of complication, not stated as uncontrolled 02/03/2014 Morbid obesity 01/01/2009 03/07/2022 Elevated blood pressure read ing without diagnosis of hypertension 11/29/2006 08/05/2016 Other acne 11/29/2006 09/06/2021 documented as of this encounter (statuses as of 06/09/2022) [place] [address]07-2014 History of Past illness Narrative* Problem Noted Date Resolved Date Type II or unspecified type diabetes mellitus without mention of complication, not stated as uncontrolled 02/03/2014 Morbid obesity 01/01/2009 03/07/2022 Elevated blood pressure read ing without diagnosis of hypertension 11/29/2006 08/05/2016 Other acne 11/29/2006 09/06/2021 documented as of this encounter (statuses as of 06/20/2022) [address]07-2014 History of Past illness Narrative* Problem Noted Date Resolved Date Type II or unspecified type diabetes mellitus without mention of complication, not stated as uncontrolled 02/03/2014 Morbid obesity 01/01/2009 03/07/2022 Elevated blood pressure read ing without diagnosis of hypertension 11/29/2006 08/05/2016 Other acne 11/29/2006 09/06/2021 documented as of this encounter (statuses as of 07/20/2022) [address]07-2014 History of Past illness Narrative* Problem Noted Date Resolved Date Type II or unspecified type diabetes mellitus without mention of complication, not stated as uncontrolled 02/03/2014 Morbid obesity 01/01/2009 03/07/2022 Elevated blood pressure read ing without diagnosis of hypertension 11/29/2006 08/05/2016 Other acne 11/29/2006 09/06/2021 documented as of this encounter (statuses as of 08/18/2022) [address]07-2014 History of Past illness Narrative* Problem Noted Date Resolved Date Type II or unspecified type diabetes mellitus without mention of complication, not stated as uncontrolled 02/03/2014 Morbid obesity 01/01/2009 03/07/2022 Elevated blood pressure read ing without diagnosis of hypertension 11/29/2006 08/05/2016 Other acne 11/29/2006 09/06/2021 documented as of this encounter (statuses as of 09/01/2022) [address]07-2014 History of Past illness Narrative* Problem Noted Date Resolved Date Type II or unspecified type diabetes mellitus without mention of complication, not stated as uncontrolled 02/03/2014 Morbid obesity 01/01/2009 03/07/2022 Elevated blood pressure read ing without diagnosis of hypertension 11/29/2006 08/05/2016 Other acne 11/29/2006 09/06/2021 documented as of this encounter (statuses as of 09/16/2022) [address]07-2014 History of Past illness Narrative* Problem Noted Date Resolved Date Type II or unspecified type diabetes mellitus without mention of complication, not stated as uncontrolled 02/03/2014 Morbid obesity 01/01/2009 03/07/2022 Elevated blood pressure read ing without diagnosis of hypertension 11/29/2006 08/05/2016 Other acne 11/29/2006 09/06/2021 documented as of this encounter (statuses as of 09/16/2022) [address]07[address]2014 History of Past illness Narrative* Problem Noted Date Resolved Date Type II or unspecified type diabetes mellitus without mention of complication, not stated as uncontrolled 02/03/2014 Morbid obesity 01/01/2009 03/07/2022 Elevated blood pressure read ing without diagnosis of hypertension 11/29/2006 08/05/2016 Other acne 11/29/2006 09/06/2021 documented as of this encounter (statuses as of 09/21/2022) [facility]* Problem Noted Date Resolved Date Type II or unspecified type diabetes mellitus without mention of complication, not stated as uncontrolled 02/03/2014 Morbid obesity 01/01/2009 03/07/2022 Elevated blood pressure read ing without diagnosis of hypertension 11/29/2006 08/05/2016 Other acne 11/29/2006 09/06/2021 documented as of this encounter (statuses as of 10/13/2022) [facility] Narrative* Problem Noted Date Resolved Date Type II or unspecified type diabetes mellitus without mention of complication, not stated as uncontrolled 02/03/2014 Morbid obesity 01/01/2009 03/07/2022 Elevated blood pressure read ing without diagnosis of hypertension 11/29/2006 08/05/2016 Other acne 11/29/2006 09/06/2021 documented as of this encounter (statuses as of 11/22/2022) [facility] Narrative* Problem Noted Date Resolved Date Type II or unspecified type diabetes mellitus without mention of complication, not stated as uncontrolled 02/03/2014 Morbid obesity 01/01/2009 03/07/2022 Elevated blood pressure read ing without diagnosis of hypertension 11/29/2006 08/05/2016 Other acne 11/29/2006 09/06/2021 documented as of this encounter (statuses as of 11/30/2022) [address]07-2014 History of Past illness Narrative* Problem Noted Date Resolved Date Type II or unspecified type diabetes mellitus without mention of complication, not stated as uncontrolled 02/03/2014 Morbid obesity 01/01/2009 03/07/2022 Elevated blood pressure read ing without diagnosis of hypertension 11/29/2006 08/05/2016 Other acne 11/29/2006 09/06/2021 documented as of this encounter (statuses as of 12/01/2022) [address]07-2014 History of Past illness Narrative* Problem Noted Date Resolved Date Type II or unspecified type diabetes mellitus without mention of complication, not stated as uncontrolled 02/03/2014 Morbid obesity 01/01/2009 03/07/2022 Elevated blood pressure read ing without diagnosis of hypertension 11/29/2006 08/05/2016 Other acne 11/29/2006 09/06/2021 documented as of this encounter (statuses as of 12/10/2022) [address]07-2014 History of Past illness Narrative* Problem Noted Date Resolved Date Type II or unspecified type diabetes mellitus without mention of complication, not stated as uncontrolled 02/03/2014 Morbid obesity 01/01/2009 03/07/2022 Elevated blood pressure read ing without diagnosis of hypertension 11/29/2006 08/05/2016 Other acne 11/29/2006 09/06/2021 documented as of this encounter (statuses as of 12/27/2022) [address]07-2014 History of Past illness Narrative* Problem Noted Date Resolved Date Type II or unspecified type diabetes mellitus without mention of complication, not stated as uncontrolled 02/03/2014 Morbid obesity 01/01/2009 03/07/2022 Elevated blood pressure read ing without diagnosis of hypertension 11/29/2006 08/05/2016 Other acne 11/29/2006 09/06/2021 documented as of this encounter (statuses as of 01/20/2023) [address]07-2014 History of Past illness Narrative* Problem Noted Date Resolved Date Type II or unspecified type diabetes mellitus without mention of complication, not stated as uncontrolled 02/03/2014 Morbid obesity 01/01/2009 03/07/2022 Elevated blood pressure read ing without diagnosis of hypertension 11/29/2006 08/05/2016 Other acne 11/29/2006 09/06/2021 documented as of this encounter (statuses as of 02/03/2023) [facility]arr[facility]* Problem Noted Date Resolved Date Type II or unspecified type diabetes mellitus without mention of complication, not stated as uncontrolled 02/03/2014 Morbid obesity 01/01/2009 03/07/2022 Elevated blood pressure read ing without diagnosis of hypertension 11/29/2006 08/05/2016 Other acne 11/29/2006 09/06/2021 documented as of this encounter (statuses as of 02/07/2023) [facility] Narrative* Problem Noted Date Resolved Date Type II or unspecified type diabetes mellitus without mention of complication, not stated as uncontrolled 02/03/2014 Morbid obesity 01/01/2009 03/07/2022 Elevated blood pressure read ing without diagnosis of hypertension 11/29/2006 08/05/2016 Other acne 11/29/2006 09/06/2021 documented as of this encounter (statuses as of 03/03/2023) [facility] Ayaz Pollard [facility] Note Date/Time June 11, 2025 11 :01[facility] Medical Records Department [address] [place] [address] Anesthesia Postop Eval I 06/11/25 1033 MR#: [id number] Acct: [id number] Name: SHEILA CROWE Rep #:[id number] 18 : 1980 44 From: Ayaz MONCADA PCP: Dr. Torres Yao MD Status:REG S DC Y Race: C Location: [place] [address] Anesthesia: Postop Eval I Current Vital Signs Temperature: 97.3 F Pulse Rate: 47 Blood Pressure: 100/77 Respiratory Rate: 16 Pulse Ox: 96 Oxygen Delivery Method: Room Air Assessment Airway patent: Yes Spontaneous unlabored respirations: Yes Mental status: Awake and Calm nausea: No Vomiting: No Anesthesia Complication: No Fluid Hydration Crystalloid volume administer (ml): 1,200 Total IV fluid infused: 1,200 Progress Note Anesthesia document: Postop Eval 1 completed: Yes 06/11/25 1033 <Electronically signed by Ayaz Pollard CRNA> Date _ Ayaz Pollard CRNA Cosigner Signature: Date CC: ~ Signed [facility] Work Phone: Discharge summary Author Mahad Saleh [facility] Note Date/Time June 11, 2025 9: 24am [facility] Medical Records Department [address] [place] [address] Instructions for Home/Discharge Instructions 06/11/25 0922 MR#: [id number] Acct: [id number] Name: SHEILA CROWE Rep #:[id number] 14 : 1980 44 From: Mahad Saleh MD PCP: Dr. Torres Yao MD Status:REG S DC Discharge Instructions Diet Discharge Diet: No restrictions Activity Ice area for (Minutes): 10 Lifting Restrictions: no lifting over 1 pound, pendulums 4x/day Additional Activity Instructions:: ok to remove sling at rest, hand wrist elbow ROM 4x/juan josé Dressing / Incision Call your doctor if your incision/area has: Continuous Slow Oozing, Sudden Increased Bleeding, Increased Pain/ Swelling, Increased Redness, Foul Smelling Discharge and Swelling at the incision site Call your doctor if you observe: Fever of 101 or Higher, Coldness, Increased Pain and Numbness or Tingling Change Dressing in: leave in place till F/U Cleanse incision/area with: Do not get Incision Wet Additional Dressing/Incision Instructions:: ok to change dressing if leaks or iswet Follow Up Care Please Follow Up With: Mahad Saleh MD When: within 2 weeks Test Results: Test results from this visit will be discussed in further detail at your follow- up appointment, if applicable. Discharge Plan Admission Attending Provider: Mahad Saleh Primary Care Provider: Torres Yao Instructions Patient Instructions: Shoulder Arthroscopy Print Language: Senegalese Discharge Orders/Prescriptions Prescriptions: New oxycodone-acetaminophen [Endocet] 5-325 mg tablet 1 tab PO Q4H MDD 6 PRN (Reason: pain) 5 Days Qty: 30 0RF No Action trazodone 100 mg tablet 100 - 300 mg PO QHS PRN (Reason: sleep) ziprasidone HCl 80 MG capsule 100 mg PO DAILY lamotrigine 200 MG tablet 100 mg PO DAILY losartan 25 MG tablet 25 mg PO DAILY topiramate 200 MG capsule,sprinkle,ER 24hr 500 mg PO QHS valbenazine 80 MG capsule 80 mg PO DAILY spironolactone 25 mg tablet 50 mg PO BID Rx Instructions: 50 MG IN AM, 25 MG IN PM benztropine 2 mg tablet 2 mg PO 4X/DAY pregabalin 100 mg capsule 100 mg PO TID Referrals / Follow Up: Mahad Saleh MD [Med Staff - Active Staff] - Torres Yao MD [Primary Care Provider] - Disposition Disposition (needs filled in before D/C Order can be placed): Home, Self Care 06/11/25 0924<Electronically signed by Mahad Saleh MD>Mahad Saleh MD CC: Dr. Torres Yao MD ~ Signed [facility] Work Phone: Evaluation + Plan note Future Appointments Appointment Date:05/30/2022 01:00:00 PM Scheduled Provider:ADIEL ALEJANDRE Location:[facility] Appointment Type:[facility] Evaluation note* Diagnosis Type 2 diabetes mellitus without complication, with long-term current use of insulin (HCC) documented in this encounter [facility] note* Diagnosis Type 2 diabetes mellitus without complication, with long-term current use of insulin (HCC)- Primary Bipolar I disorder (HCC) Bipolar I disorder, most recent episode (or current) unspecified Essential hypertension, benign Fibromyalgia Mylagia and myositis, unspecified Acne, unspecified acne type documented in this encounter [facility] note* Diagnosis Primary osteoarthritis of both knees- Primary Primary localized osteoarthrosis, lower leg documented in this encounter [facility] note* Diagnosis Primary osteoarthritis of both knees Primary localized osteoarthrosis, lower leg [facility] Diagnosis Fibromyalgia- Primary Mylagia and myositis, unspecified Primary osteoarthritis of both knees Primary localized osteoarthrosis, lower leg Generalized anxiety disorder Sacroiliitis (HCC) Sacroiliitis, not elsewhere classified documented in this encounter [facility] note* Diagnosis Primary osteoarthritis of both knees Primary localized osteoarthrosis, lower leg documented in this encounter [facility] note* Diagnosis Primary osteoarthritis of both knees- Primary Primary localized osteoarthrosis, lower leg Fibromyalgia Mylagia and myositis, unspecified Generalized anxiety disorder Sacroiliitis (HCC) Sacroiliitis, not elsewhere classified documented in this encounter [facility] note* Diagnosis Primary osteoarthritis of both knees Primary localized osteoarthrosis, lower leg [facility] Diagnosis Fibromyalgia- Primary Mylagia and myositis, unspecified Primary osteoarthritis of both knees Primary localized osteoarthrosis, lower leg Generalized anxiety disorder Sacroiliitis (HCC) Sacroiliitis, not elsewhere classified 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 Subacromial bursitis of both shoulders Subacromial bursitis of both shoulders documented in this encounter [facility] note* Diagnosis Primary osteoarthritis of both knees Primary localized osteoarthrosis, lower leg [facility] Diagnosis Hypokalemia- Primary Hypopotassemia [facility]* Diagnosis Fibromyalgia- Primary Mylagia and myositis, unspecified Primary osteoarthritis of both knees Primary localized osteoarthrosis, lower leg Sacroiliitis (HCC) Sacroiliitis, not elsewhere classified Generalized anxiety disorder Subacromial bursitis of both shoulders [facility] Diagnosis Primary osteoarthritis of both knees Primary localized osteoarthrosis, lower leg [facility] Diagnosis Fibromyalgia- Primary Mylagia and myositis, unspecified Primary osteoarthritis of both knees Primary localized osteoarthrosis, lower leg Sacroiliitis (HCC) Sacroiliitis, not elsewhere classified Generalized anxiety disorder Subacromial bursitis of both shoulders [facility] Diagnosis Fibromyalgia- Primary Mylagia and myositis, unspecified Primary osteoarthritis of both knees Primary localized osteoarthrosis, lower leg Sacroiliitis (HCC) Sacroiliitis, not elsewhere classified Generalized anxiety disorder Subacromial bursitis of both shoulders Subacromial bursitis of both shoulders [facility] Diagnosis Primary osteoarthritis of both knees- Primary Primary localized osteoarthrosis, lower leg Fibromyalgia Mylagia and myositis, unspecified Sacroiliitis (HCC) Sacroiliitis, not elsewhere classified Generalized anxiety disorder Subacromial bursitis of both shoulders 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 [facility] Diagnosis Fibromyalgia- Primary Mylagia and myositis, unspecified Primary osteoarthritis of both knees Primary localized osteoarthrosis, lower leg Sacroiliitis (HCC) Sacroiliitis, not elsewhere classified Generalized anxiety disorder Subacromial bursitis of both shoulders [facility] Diagnosis Bursitis of left shoulder- Primary Disorders of bursae and tendons in shoulder region, unspecified Bursitis of left shoulder Disorders of bursae and tendons in shoulder region, unspecified [facility] center note* Diagnosis Fibromyalgia- Primary Mylagia and myositis, unspecified [facility] Fibromyalgia- Primary Mylagia and myositis, unspecified Primary osteoarthritis of both knees Primary localized osteoarthrosis, lower leg Sacroiliitis (HCC) Sacroiliitis, not elsewhere classified Generalized anxiety disorder Subacromial bursitis of both shoulders [facility] Diagnosis Fibromyalgia- Primary Mylagia and myositis, unspecified [facility] Diagnosis Primary osteoarthritis of both knees Primary localized osteoarthrosis, lower leg [facility] Diagnosis Fibromyalgia- Primary Mylagia and myositis, unspecified Primary osteoarthritis of both knees Primary localized osteoarthrosis, lower leg Sacroiliitis (HCC) Sacroiliitis, not elsewhere classified Generalized anxiety disorder Subacromial bursitis of both shoulders Chronic pain of both shoulders Pain in joint, shoulder region Neuropathy involving both lower extremities Subacromial bursitis of both shoulders [facility] Diagnosis Chronic pain of both shoulders Pain in joint, shoulder region Subacromial bursitis of both shoulders documented in this encounter [facility] note* Diagnosis Screening breast examination Breast screening, unspecified documented in this encounter [facility] note* Diagnosis Chronic pain syndrome- Primary documented in this encounter [facility] note* Diagnosis Fibromyalgia- Primary Mylagia and myositis, unspecified Sacroiliitis (HCC) Sacroiliitis, not elsewhere classified Primary osteoarthritis of both knees Primary localized osteoarthrosis, lower leg Subacromial bursitis of both shoulders Generalized anxiety disorder Chronic pain of both shoulders Pain in joint, shoulder region Neuropathy involving both lower extremities 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 documented in this encounter [facility] note* Diagnosis Fibromyalgia Mylagia and myositis, unspecified [facility] Diagnosis Fibromyalgia- Primary Mylagia and myositis, [...] Other screening mammogram [facility] Diagnosis Encounter for screening mammogram for malignant neoplasm of breast Other screening mammogram documented in this encounter [facility] note* Diagnosis Primary osteoarthritis of both knees Primary localized osteoarthrosis, lower leg documented in this encounter [facility] note* Diagnosis Fibromyalgia- Primary Mylagia and myositis, unspecified Primary osteoarthritis of both knees Primary localized osteoarthrosis, lower leg Sacroiliitis (HCC) Sacroiliitis, not elsewhere classified Subacromial bursitis of both shoulders Generalized anxiety disorder Neuropathy involving both lower extremities Subacromial bursitis of both shoulders documented in this encounter [facility] note* Diagnosis Rectal bleeding- Primary Hemorrhage of rectum and anus Chronic constipation Unspecified constipation Abdominal discomfort Abdominal pain, unspecified site documented in this encounter [facility] note* Diagnosis Chronic pain syndrome- Primary Fibromyalgia Mylagia and myositis, unspecified Primary osteoarthritis of both knees Primary localized osteoarthrosis, lower leg Sacroiliitis (HCC) Sacroiliitis, not elsewhere classified Subacromial bursitis of both shoulders Generalized anxiety disorder Neuropathy involving both lower extremities [facility] Diagnosis Primary osteoarthritis of both knees Primary localized osteoarthrosis, lower leg Fibromyalgia Mylagia and myositis, unspecified [facility] Diagnosis Chronic insomnia- Primary Insomnia, unspecified Generalized anxiety disorder Bipolar I disorder (HCC) Bipolar I disorder, most recent episode (or current) unspecified 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 History of suicide attempt Personal history of other mental disorder [facility] Diagnosis Fibromyalgia- Primary Mylagia and myositis, unspecified Primary osteoarthritis of both knees Primary localized osteoarthrosis, lower leg Sacroiliitis (HCC) Sacroiliitis, not elsewhere classified Subacromial bursitis of both shoulders Generalized anxiety disorder Neuropathy involving both lower extremities [facility] Diagnosis Primary osteoarthritis of both knees Primary localized osteoarthrosis, lower leg [facility] Diagnosis Acute right-sided low back pain without sciatica- Primary Acute right-sided low back pain without sciatica [facility]* Diagnosis Fibromyalgia Mylagia and myositis, unspecified [facility]* Diagnosis Fibromyalgia- Primary Mylagia and myositis, unspecified Sacroiliitis (HCC) Sacroiliitis, not elsewhere classified Subacromial bursitis of both shoulders Primary osteoarthritis of both knees Primary localized osteoarthrosis, lower leg Generalized anxiety disorder Neuropathy involving both lower extremities [facility] Diagnosis Acute midline low back pain without sciatica- Primary [facility]* Diagnosis Chronic pain syndrome- Primary Fibromyalgia Mylagia and myositis, unspecified Essential Hypertension, Benign Essential hypertension, benign Lumbar strain, subsequent encounter [facility]* Diagnosis Acute midline low back pain without sciatica- Primary [facility]* Diagnosis Coccyx pain- Primary Other disorder of coccyx [facility]* Diagnosis Acute midline low back pain without sciatica- Primary [facility]* Diagnosis Coccyx pain Other disorder of coccyx [facility]* Diagnosis Acute right-sided low back pain without sciatica [facility]* Diagnosis Acute midline low back pain without sciatica- Primary [facility]* Diagnosis Rectal bleeding Hemorrhage of rectum and anus Chronic constipation Unspecified constipation [facility] Diagnosis Fibromyalgia Mylagia and myositis, unspecified [facility] Diagnosis Acute midline low back pain without sciatica- Primary [facility]* Diagnosis Subacromial bursitis of both shoulders- Primary Fibromyalgia Mylagia and myositis, unspecified Sacroiliitis (HCC) Sacroiliitis, not elsewhere classified Primary osteoarthritis of both knees Primary localized osteoarthrosis, lower leg Neuropathy involving both lower extremities Generalized anxiety disorder Subacromial bursitis of both shoulders [facility] Diagnosis Chronic pain syndrome- Primary Screening [...] of both shoulders [facility]* Diagnosis Fibromyalgia- Primary Mylagia and myositis, unspecified Primary osteoarthritis of both knees Primary localized osteoarthrosis, lower leg Subacromial bursitis of both shoulders Sacroiliitis (HCC) Sacroiliitis, not elsewhere classified Neuropathy involving both lower extremities Generalized anxiety disorder Bilateral shoulder region arthritis [facility] Diagnosis Subacromial bursitis of both shoulders- Primary Bilateral shoulder region arthritis [facility]* Diagnosis Subacromial bursitis of both shoulders- Primary Bilateral shoulder region arthritis [facility]* Diagnosis Subacromial bursitis of both shoulders- Primary Bilateral shoulder region arthritis [facility]* Diagnosis Subacromial bursitis of both shoulders- Primary Bilateral shoulder region arthritis [facility]* Diagnosis Fibromyalgia Mylagia and myositis, unspecified [facility] Diagnosis Subacromial bursitis of both shoulders- Primary Bilateral shoulder region arthritis [facility]* Diagnosis Subacromial bursitis of both shoulders- Primary [facility]* Diagnosis Subacromial bursitis of both shoulders- Primary Bilateral shoulder region arthritis [facility]* Diagnosis Subacromial bursitis of both shoulders- Primary [facility]* Diagnosis Encounter for screening mammogram for breast cancer [facility]* Diagnosis Fibromyalgia- Primary Mylagia and myositis, unspecified Primary osteoarthritis of both knees Primary localized osteoarthrosis, lower leg Subacromial bursitis of both shoulders Bilateral shoulder region arthritis Sacroiliitis Sacroiliitis, not elsewhere classified Neuropathy involving both lower extremities Generalized anxiety disorder [facility]* Diagnosis Subacromial bursitis of both shoulders- Primary Bilateral shoulder region arthritis [facility]* Diagnosis Fibromyalgia- Primary Mylagia and myositis, unspecified Bipolar I disorder (HCC) Bipolar I disorder, most recent episode (or current) unspecified group home (current) use of insulin (HCC) Neuropathy involving both lower extremities Essential Hypertension, Benign Essential hypertension, benign History of diabetes mellitus Personal history of other endocrine, metabolic, and immunity disorders Generalized anxiety disorder Screening for colon cancer Special screening for malignant neoplasms, colon Disorder of bone, unspecified documented in this encounter [facility] note* Diagnosis Encounter for screening mammogram for breast cancer [facility]* Diagnosis Onset Date Resolution Status Admit Date Left shoulder pain acute March 312024 10:59am [facility] Work Phone: Evaluation note* Diagnosis Chronic pain syndrome- Primary Fibromyalgia Mylagia and myositis, unspecified Essential Hypertension, Benign Essential hypertension, benign Urinary retention Retention of urine, unspecified Urinary retention Retention of urine, unspecified documented in this encounter [facility] note* Diagnosis Urinary retention Retention of urine, unspecified [facility]* Diagnosis Fibromyalgia- Primary Mylagia and myositis, unspecified Bilateral shoulder region arthritis Subacromial bursitis of both shoulders Primary osteoarthritis of both knees Primary localized osteoarthrosis, lower leg Sacroiliitis Sacroiliitis, not elsewhere classified Neuropathy involving both lower extremities Generalized anxiety disorder [facility] Diagnosis Chronic insomnia- Primary Insomnia, unspecified Generalized anxiety disorder Bipolar I disorder (HCC) Bipolar I disorder, most recent episode (or current) unspecified Panic disorder Panic disorder without agoraphobia [facility] Narrative No data available for this section [facility] Hospital Discharge instructions No data available for this section [facility] Hospital Discharge instructionsAmbulatory Orders* PT Referral Location: None Selected [facility] Work Phone: Proaybnp note No data available for this section [facility] Projhell note Author Mahad Saleh [facility] Note Date/Time July 22, 2025 1:06pm [facility] [address] [place] [address] OFFICE VISIT Date of Service: 07/22/25 MR#: [id number] Acct: [id number] Name: SHEILA CORWE Rep #: [id number] : 1980 Provider: Dr. Delvin Saleh MD Age/Sex: 44/F Location: [facility] Status: Signed Intake Vital Signs 06/11/25 05:57 07/22/25 12:51 Height 5 ft 8 in 5 ft 8 in Weight: 188 lb BMI 28.5 Intake Visit Reasons: LEFT SHOULDER Chief Complaint: 6 week post-op Accompanied by: Self Is patient in pain?: Yes Pain scale (1-10): 2 Allergies Penicillins (PCN) Allergy (Verified 07/22/25 12:54) Anaphylaxis amoxicillin Adverse Reaction (Verified 07/22/25 12:54) Anaphylaxis Medications ?Medication ?Instructions ?Recorded ?Confirmed ?Type lamotrigine 200 mg tablet 100 mg PO DAILY 12/20/19 History losartan 25 mg tablet 25 mg PO DAILY 12/20/1907/01 History topiramate 200 mg capsule 500 mg PO QHS MOOD STABILIZE R 12/20/19 07/22/25 History sprinkle,extended release 24 hr valbenazine 80 mg capsule 80 mg PO DAILY GEODONE SE 07/22/25 History ziprasidone HCl 80 mg capsule 100 mg PO DAILY BIPOLAR 12/20/19 07/22/25 History trazodone 100 mg tablet 100 - 300 mg PO QHS PRN slee p 05/22/25 07/22/25 History benztropine 2 mg tablet 2 mg PO 4X/DAY 05/29/2507/01 History pregabalin 100 mg capsule 100 mg PO TID 05/29/2507/22 History spironolactone 25 mg tablet 50 mg PO BID 05/29/2507/01 History oxycodone-acetaminophen 5 mg-325 1 tab PO Q4H PRN pain 5 days #30 06/11/25 07/22/25 Rx mg tablet (Endocet) tabs acetaminophen 500 mg tablet 500 mg PO Q6H PRN 06/24/25 07/22/25 History (Acetaminophen Extra Strength) meloxicam 15 mg tablet 15 mg PO QDAY 06/24/2507/22 History Have you fallen in the past year?: Yes PFSH Medical History Wears glasses Depression Anxiety Bipolar disorder Arthritis Restless legs Former smoker Impingement of left shoulder Left rotator cuff tear Left shoulder pain Surgical History History of wisdom tooth extraction History of tonsillectomy Social History Smoking Status: Former smoker HPI LEFT SHOULDER Details: This documentation accurately reflects the service provided and the decisions made by me, Dr. Mahad Saleh MD 07/22/25 1052. Part of today?s visit was documented by [ ], acting as scribe. SHEILA CROWE is a 44 year old F here today for 6 weeks FU L shoulder arthroscopy, SAD, RC repair, arthrex cuffmend graft. Doing well good range of motion no pain doing some light stretching has good range of motion. Feels weakin the hand. Coding Level of Care Code Global Post Op Diagnoses Left rotator cuff tear M75.102 Left shoulder pain M25.512 Impingement of left shoulder M25.812 Assessment and Plan Assessment and Plan (1) Left rotator cuff tear: Status: Acute Plan: SHEILA CROWE is a 44 year old F here today for 6 weeks FU L shoulder arthroscopy, SAD, RC repair, arthrex cuffmend graft. Doing well. OK to start strengthening. FU 6 weeks. Phase 1: Initial Protection and Pain Management (Weeks 1-2) Dressing: Keep incisions clean and dry. Change dressing every 1-2 days. Sling: Wearing a sling for comfort and to protect the surgical repair Pain Management: Ice, rest, and pain medication are used to control pain and swelling. Gentle Movement: Early passive range of motion exercises are introduced to prevent stiffness. Perform pendulum exercises 4x/day, where the patient gently swings the arm in a controlled manner. Maintaining range of motion and strength in the elbow, wrist, and hand is important to prevent stiffness and muscle atrophy. Phase 2: Gradual Sikh of Motion (Weeks 2-6) Gradually discontinue the sling starting 2 weeks after surgery. Active Assisted Range of Motion: Gradually increasing the range of motion with assistance from the unaffected arm or a physical therapist is introduced. Phase 3: Gradual Sikh of Strength (Weeks 6-12) Light Strengthening: Isometrics and gentle resistance exercises are started to strengthen the rotator cuff muscles. Progression of Exercises: Exercises progress from simple movements like scapularretraction to more complex ones like lateral elevation and external rotation. Phase 4: Functional Exercises and Return to Activity (Weeks 12+) Advanced Strengthening: More challenging exercises are added to further strengthen the shoulder and improve stability. Functional Activities: Exercises that mimic daily activities and sports-specificmovements are incorporated to prepare the patient for a return to their desired level of activity. (2) Left shoulder pain: Status: Acute (3) Impingement of left shoulder: Status: Acute Clinical Quality Measures Falls Risk Screening/Assistive Devices Have you fallen in the past year?: Yes Ortho Exam General General: Yes no acute distress Neurologic: Yes alert and Yes oriented x3 Psychologic: Yes reasonable and appropriate Left Shoulder Skin/Wound: Yes CDI, Yes healed, No ecchymosis, No erythema and No swelling (mild) Testing: Yes AROM-External Rotation at side 0-60, Yes PROM-Forward Elevation 0- 180 and Yes PROM-External Rotation at side 0-60 SHOULDER: active fe 150. nvi mru ain/pinax, nerves. good rad pulse. 07/22/25 1308 <Electronically signed by Mahad castro MD> Date _ Mahad Saleh MD Cosigner Signature: Date (if applicable) CC: ~ [facility] Work Phone: [facility] for referral (narrative)* Diagnostic Procedure Only (Routine) - Closed Specialty Diagnoses / Procedures Referred By Contac Referred To Contact XR IMAGING Diagnoses Chronic pain of both shoulders Procedures XR SHOULDER ORTHO 4V AP/TRUE AP/LAT/OUTLET RIGHT RADEX SHOULDER COMPLETE MINIMUM 2 VIEWS Freeman Sarabia PA-C [id number] [place] [address] [place] [address] Referral ID Status Reason Start Date Expiration Date V isits Requested Visits Authorized [id number] Closed Auto-Generate d Referral 08/25/2023 09/23/2024 1 1 * Diagnostic Procedure Only (Routine) - Closed Specialty Diagnoses / Procedures Referred By Contac Referred To Contact XR IMAGING Diagnoses Chronic pain of both shoulders Procedures XR SHOULDER ORTHO 4V AP/TRUE AP/LAT/OUTLET LEFT RADEX SHOULDER COMPLETE MINIMUM 2 VIEWS Freeman Sarabia PA-C [id number] [email or web address] [address] [place] [address] Referral ID Status Reason Start Date Expiration Date V isits Requested Visits Authorized [id number] Closed Auto-Generate d Referral 08/25/2023 09/23/2024 1 1 [facility] for referral (narrative)* Diagnostic Procedure Only (Routine) - Closed Specialty Diagnoses / Procedures Referred By Contac t Referred To Contact BR IMAGING Diagnoses Screening breast examination Procedures BRITTON SCREENING SCREENING MAMMOGRAPHY BI 2-VIEW BREAST INC Torres Valle MD [address] [place] [address] [facility] [address] [place] [address] Referral ID Status Reason Start Date Expiration Date V isits Requested Visits Authorized [id number] Closed Auto-Generate d Referral 09/08/2022 10/08/2023 1 1 [facility] for referral (narrative)* Diagnostic Procedure Only (Routine) - Authorized Specialty Diagnoses / Procedures Referred By Contac t Referred To Contact BR IMAGING Diagnoses Encounter for screening mammogram for malignant neoplasm of breast Procedures BRITTON SCREENING SCREENING MAMMOGRAPHY BI 2-[place] [address] [place] [address] [facility] [address] [place] [address] Referral ID Status Reason Start Date Expiration Date Visits Requested Visits Authorized [id number] Authorized Auto-Generat ed Referral 3 11/11/2024 1 1 * Transition of Care (Routine) - Ref Not Required Specialty Diagnoses / Procedures Referred By Contac t Referred To Contact Neurology Diagnoses Other polyneuropathy Migraine without aura and without status migrainosus, not intractable Procedures CONSULT TO NEUROLOGY Torres Yao MD [address] [place] [id number] Referral ID Status Reason Start Date Expiration Date Visits Requested Visits Authorized [id number] Ref Not Required PCP Requested Referral 3 10/12/2024 1 1 [facility] for referral (narrative)* Diagnostic Procedure Only (Urgent) - Closed Specialty Diagnoses / Procedures Referred By Contac t Referred To Contact XR IMAGING Diagnoses Rectal bleeding Chronic constipation Procedures XR ABDOMEN 1V SUPINE RADIOLOGIC EXAM ABDOMEN 1 VIEW Torres Yao MD [address] [place] [address] [place] [address] Referral ID Status Reason Start Date Expiration Date V isits Requested Visits Authorized [id number] Closed Auto-Generate d Referral 01/29/2024 02/27/2025 1 1 * Consult, Test, Treat (Routine) - Authorized Specialty Diagnoses / Procedures Referred By Contac t Referred To Contact General Surgery Diagnoses Rectal bleeding Chronic constipation Procedures CONSULT TO GENERAL SURGERY OFFICE/OUTPATIENT [facility] 60 MINUTES Torres Yao MD [address] [place] [address] Referral ID Status Reason Start Date Expiration Date Visits Requested Visits Authorized [id number] Authorized PCP Requested Referral 01/29/2024 01/28/2025 1 1 [facility] for referral (narrative)* Diagnostic Procedure Only (Urgent) - Closed Specialty Diagnoses / Procedures Referred By Contac t Referred To Contact XR IMAGING Diagnoses Acute right-sided low back pain without sciatica Procedures XR LUMBAR GENERAL 3V AP/LAT/L5-S1 RADEX SPINE LUMBOSACRAL 2/3 VIEWS Ellen Rene, DIGITAL PROJECT COORDINATOR.RUFFLING MACHINE OPERATOR [address] [place] [address] [place] [address] Referral ID Status Reason Start Date Expiration Date V isits Requested Visits Authorized [id number] Closed Auto-Generate d Referral 05/10/2024 06/09/2025 1 1 [facility] for referral (narrative)* Diagnostic Procedure Only (Routine) - Closed Specialty Diagnoses / Procedures Referred By Contac t Referred To Contact XR IMAGING Diagnoses Coccyx pain Procedures XR SACRUM/COCCYX 3V AP/LAT RADEX SACRUM & COCCYX MINIMUM 2 VIEWS Ellen Rene APRN.CNP [address] [place] [address] [place] [address] Referral ID Status Reason Start Date Expiration Date V isits Requested Visits Authorized [id number] Closed Auto-Generate d Referral 06/21/2024 07/21/2025 1 1 [facility] for referral (narrative)* Diagnostic Procedure Only (Routine) - Closed Specialty Diagnoses / Procedures Referred By Contac t Referred To Contact XR IMAGING Diagnoses Coccyx pain Procedures XR SACRUM/COCCYX 3V AP/LAT RADEX SACRUM & COCCYX MINIMUM 2 VIEWS Ellen Rene APRN.RUFFLING MACHINE OPERATOR [address] [place] [address] [place] [address] Referral ID Status Reason Start Date Expiration Date V isits Requested Visits Authorized [id number] Closed Auto-Generate d Referral 06/21/2024 07/21/2025 1 1 [facility] for referral (narrative)* Diagnostic Procedure Only (Urgent) - Closed Specialty Diagnoses / Procedures Referred By Contac t Referred To Contact XR IMAGING Diagnoses Acute right-sided low back pain without sciatica Procedures XR LUMBAR GENERAL 3V AP/LAT/L5-S1 RADEX SPINE LUMBOSACRAL 2/3 VIEWS Ellen Rene APRN.RUFFLING MACHINE OPERATOR [address] [place] [address] [place] [address] Referral ID Status Reason Start Date Expiration Date V isits Requested Visits Authorized [id number] Closed Auto-Generate d Referral 05/10/2024 06/09/2025 1 1 [facility] for referral (narrative)* Diagnostic Procedure Only (Urgent) - Closed Specialty Diagnoses / Procedures Referred By Contac t Referred To Contact XR IMAGING Diagnoses Rectal bleeding Chronic constipation Procedures XR ABDOMEN 1V SUPINE RADIOLOGIC EXAM ABDOMEN 1 VIEW Torres Yao MD [address] [place] [address] [place] [address] Referral ID Status Reason Start Date Expiration Date V isits Requested Visits Authorized [id number] Closed Auto-Generate d Referral 01/29/2024 02/27/2025 1 1 [facility] for referral (narrative)No reason for referral information [facility] Work Phone: Reason for visit Narrative* Diagnostic Procedure Only (Routine) - Closed Specialty Diagnoses / Procedures Referred By Contac t Referred To Contact XR IMAGING Diagnoses Chronic pain of both shoulders Procedures XR SHOULDER ORTHO 4V AP/TRUE AP/LAT/OUTLET RIGHT RADEX SHOULDER COMPLETE MINIMUM 2 VIEWS Freeman Sarabia, NIECY [address] [place] [address] [place] [address] Referral ID Status Reason Start Date Expiration Date V isits Requested Visits Authorized [id number] Closed Auto-Generate d Referral 08/25/2023 09/23/2024 1 1 [facility] for visit Narrative* Diagnostic Procedure Only (Routine) - Closed Specialty Diagnoses / Procedures Referred By Contac t Referred To Contact BR IMAGING Diagnoses Screening breast examination Procedures BRITTON SCREENING SCREENING MAMMOGRAPHY BI 2-VIEW BREAST INC CAD Torres Yao MD [address] [place] [address] [facility] [address] [place] [address] Referral ID Status Reason Start Date Expiration Date V isits Requested Visits Authorized [id number] Closed Auto-Generate d Referral 09/08/2022 10/08/2023 1 1 [facility] for visit Narrative* Diagnostic Procedure Only (Routine) - Closed Specialty Diagnoses / Procedures Referred By Contac t Referred To Contact BR IMAGING Diagnoses Encounter for screening mammogram for malignant neoplasm of breast Procedures BRITTON SCREENING SCREENING MAMMOGRAPHY BI 2-VIEW BREAST INC CAD Torres Yao MD [address] [place] [address] Br Imaging [address] [place] [address] Referral ID Status Reason Start Date Expiration Date V isits Requested Visits Authorized [id number] Closed Auto-Generate d Referral 10/13/2023 11/11/2024 1 1 [facility] for visit Narrative* Diagnostic Procedure Only (Routine) - Closed Specialty Diagnoses / Procedures Referred By Madelinac t Referred To Contact XR IMAGING Diagnoses Coccyx pain Procedures XR SACRUM/COCCYX 3V AP/LAT RADEX SACRUM & COCCYX MINIMUM 2 VIEWS Ellen Rene, DIGITAL PROJECT COORDINATOR.RUFFLING MACHINE OPERATOR [address] [place] [address] [place] [address] Referral ID Status Reason Start Date Expiration Date V isits Requested Visits Authorized [id number] Closed Auto-Generate d Referral 06/21/2024 07/21/2025 1 1 [facility] for visit Narrative* Diagnostic Procedure Only (Urgent) - Closed Specialty Diagnoses / Procedures Referred By Contac t Referred To Contact XR IMAGING Diagnoses Acute right-sided low back pain without sciatica Procedures XR LUMBAR GENERAL 3V AP/LAT/L5-S1 RADEX SPINE LUMBOSACRAL 2/3 VIEWS Ellen Rene, DIGITAL PROJECT COORDINATOR.RUFFLING MACHINE OPERATOR [address] [place] [address] [place] [address] Referral ID Status Reason Start Date Expiration Date V isits Requested Visits Authorized [id number] Closed Auto-Generate d Referral 05/10/2024 06/09/2025 1 1 [facility] for visit Narrative* Diagnostic Procedure Only (Urgent) - Closed Specialty Diagnoses / Procedures Referred By Contac t Referred To Contact XR IMAGING Diagnoses Rectal bleeding Chronic constipation Procedures XR ABDOMEN 1V SUPINE RADIOLOGIC EXAM ABDOMEN 1 VIEW Torres Yao MD [address] [place] [address] [place] [address] Referral ID Status Reason Start Date Expiration Date V isits Requested Visits Authorized [id number] Closed Auto-Generate d Referral 01/29/2024 02/27/2025 1 1 [facility] for visit Narrative* Diagnostic Procedure Only (Routine) - Closed Specialty Diagnoses / Procedures Referred By Mercedes maravilla Referred To Contact BR IMAGING Diagnoses Encounter for screening mammogram for breast cancer Procedures BRITTON SCREENING W CHANA SCREENING DIGITAL BREAST TOMOSYNTHESIS BI SCREENING MAMMOGRAPHY BI 2-VIEW BREAST INC CAD Torres Yao MD [address] [place] [address] Phone: tel: fax: BR IMAGING [address] [place] [address] Referral ID Status Reason Start Date Expiration Date V isits Requested Visits Authorized [id number] Closed Auto-Generate d Referral 01/14/2025 02/13/2026 1 1 [facility] for visit Narrative* Diagnostic Procedure Only (Urgent) - Closed Specialty Diagnoses / Procedures Referred By Mercedes maravilla Referred To Contact US IMAGING Diagnoses Urinary retention Procedures US PELVIS BLADDER US PELVIC NONOBSTETRIC IMAGE DCMTN LIMITED/F/U Eldon, Ellen A, DIGITAL PROJECT COORDINATOR.RUFFLING MACHINE OPERATOR [address] [place] [address] Phone: tel: fax: [place] [address] Referral ID Status Reason Start Date Expiration Date V isits Requested Visits Authorized [id number] Closed Auto-Generate d Referral 05/05/2025 06/04/2026 1 1 [facility] Summary Purpose Family History No Family History Records FoundNo Family History Records Found No data available for this section No data available for this section No Family History Records FoundNo Family History Records FoundNo Family History Records FoundNo Family History Records FoundNo Family History Records Found Advance Directives No Advanced Directives Records Found Advance Directive Response Recorded Date/ Time Do you have a Healthcare Power of Cold Rolling Coordinator? No May 29, 2025 3:27pm Reason for Referral Specialty Diagnoses / Procedures Referred By Mercedes maravilla Referred To Contact [facility] Diagnoses Subacromial bursitis of both shoulders Bilateral shoulder region arthritis Procedures CONSULT TO PHYSICAL THERAPY PHYSICAL THERAPY EVALUATION HIGH COMPLEX 45 MINS Freeman Sarabia PA-C [address] [place] [address] [facility] [place] [address] Referral ID Status Reason Start Date Expiration Date Visits Requested Visits Authorized [id number] Authorized PCP Requested Referral Auto-Generate d Referral 11/22/2024 11/22/2025 99 99 Specialty Diagnoses / Procedures Referred By Contac t Referred To Contact Diagnoses Chronic pain syndrome Freeman Sarabia PA-C [address] [place] [address] Referral ID Status Reason Start Date Expiration Date V isits Requested Visits Authorized [id number] Pending Review 1 1 Specialty Diagnoses / Procedures Referred By Contac t Referred To Contact Diagnoses Fibromyalgia Freeman Sarabia PA-C [address] [place] [address] Referral ID Status Reason Start Date Expiration Date V isits Requested Visits Authorized [id number] Pending Review 1 1 Chief Complaint and [...] shoulder pain May 22, 2025 10:1 9am Chief Complaint Admit Date LEFT SHOULDER April 21, 2025 10:5 9am Room 1 April 21, 2025 11:0 4am LT SHOULDER PAIN, R/O CUFF TEAR April 12:22pm LEFT SHOULDER May 22, 2025 10:1 9am Left shoulder Arthroscopy, subacromial d ecompressi June 11, 2025 5:18am Left shoulder Arthroscopy, subacromial d ecompressi June 11, 2025 7:04am Reason for Visit Admit Date Left shoulder pain April 21, 2025 10:5 9am Impingement of left shoulder May 22, 2025 10:19am Left rotator cuff tear May 22, 2025 1 0:19am Left shoulder pain May 22, 2025 10:1 9am Impingement of left shoulder May 5:18am Left rotator cuff tear June 11, 2025 5:18am Left shoulder pain June 11, 2025 5: 18am Chief Complaint Admit Date LEFT SHOULDER April 21, 2025 10:5 9am Room 1 April 21, 2025 11:0 4am LT SHOULDER PAIN, R/O CUFF TEAR April 12:22pm LEFT SHOULDER May 22, 2025 10:1 9am Left shoulder Arthroscopy, subacromial d ecompressi June 11, 2025 5:18am Left shoulder Arthroscopy, subacromial d ecompressi June 11, 2025 7:04am left shoulder June 13, 2025 1: 01pm Reason for Visit Admit Date Left shoulder pain April 21, 2025 10:5 9am Impingement of left shoulder May 22, 2025 10:19am Left rotator cuff tear May 22, 2025 1 0:19am Left shoulder pain May 22, 2025 10:1 9am Impingement of left shoulder May 5:18am Left rotator cuff tear June 11, 2025 5:18am Left shoulder pain June 11, 2025 5: 18am Impingement of left shoulder May 1:01pm Left rotator cuff tear June 13, 2025 1:01pm Left shoulder pain June 13, 2025 1: 01pm Chief Complaint Admit Date LEFT SHOULDER April 21, 2025 10:5 9am Room 1 April 21, 2025 11:0 4am LT SHOULDER PAIN, R/O CUFF TEAR April 12:22pm LEFT SHOULDER May 22, 2025 10:1 9am Left shoulder Arthroscopy, subacromial d ecompressi June 11, 2025 5:18am Left shoulder Arthroscopy, subacromial d ecompressi June 11, 2025 7:04am left shoulder June 13, 2025 1: 01pm left shoulder June 24, 2025 1: 03pm Reason for Visit Admit Date Left shoulder pain April 21, 2025 10:5 9am Impingement of left shoulder May 22, 2025 10:19am Left rotator cuff tear May 22, 2025 1 0:19am Left shoulder pain May 22, 2025 10:1 9am Impingement of left shoulder May 5:18am Left rotator cuff tear June 11, 2025 5:18am Left shoulder pain June 11, 2025 5: 18am Impingement of left shoulder May 1:01pm Left rotator cuff tear June 13, 2025 1:01pm Left shoulder pain June 13, 2025 1: 01pm Impingement of left shoulder May 1:03pm Left rotator cuff tear June 24, 2025 1:03pm Left shoulder pain June 24, 2025 1: 03pm Chief Complaint Admit Date LEFT SHOULDER April 21, 2025 10:5 9am Room 1 April 21, 2025 11:0 4am LT SHOULDER PAIN, R/O CUFF TEAR April 12:22pm LEFT SHOULDER May 22, 2025 10:1 9am Left shoulder Arthroscopy, subacromial d ecompressi June 11, 2025 5:18am Left shoulder Arthroscopy, subacromial d ecompressi June 11, 2025 7:04am left shoulder June 13, 2025 1: 01pm left shoulder June 24, 2025 1: 03pm LEFT SHOULDER July 22, 2025 12:49pm SHOULDER POST OP. RX HERE June 1:00pm Reason for Visit Admit Date Left shoulder pain April 21, 2025 10:5 9am Impingement of left shoulder May 22, 2025 10:19am Left rotator cuff tear May 22, 2025 1 0:19am Left shoulder pain May 22, 2025 10:1 9am Impingement of left shoulder May 5:18am Left rotator cuff tear June 11, 2025 5:18am Left shoulder pain June 11, 2025 5: 18am Impingement of left shoulder May 1:01pm Left rotator cuff tear June 13, 2025 1:01pm Left shoulder pain June 13, 2025 1: 01pm Impingement of left shoulder May 1:03pm Left rotator cuff tear June 24, 2025 1:03pm Left shoulder pain June 24, 2025 1: 03pm Impingement of left shoulder July [id number] 12:49pm Left rotator cuff tear July 22 12:49pm Left shoulder pain July 22, 2025 12:49pm Additional Source Comments INFORMATION SOURCE (unrecogn ized section and content) DATE CREATED AUTHOR 05/29/2020 [facility] DATE CREATED AUTHOR AUTHOR'S ORGANIZ ATION 02/26/2021 [facility] [place] DATE CREATED AUTHOR AUTHOR'S ORGANIZ ATION 03/07/2024 [facility] DATE CREATED AUTHOR AUTHOR'S ORGANIZ ATION 05/09/2025 [facility] DATE CREATED AUTHOR AUTHOR'S ORGANIZ ATION 05/19/2025 [facility] DATE CREATED AUTHOR AUTHOR'S ORGANIZ ATION 08/12/2025 [facility] DATE CREATED AUTHOR AUTHOR'S ORGANIZ ATION 09/03/[address] [facility] Source Comments (unrecognize d section and content) In the event this informatio n is protected by the Federal Confidentiality of Alcohol and Drug Abuse Patient Records regulations: The Federal rules restrict any use of the information to criminally investigate or prosecute any alcohol or drug abuse patient.[facility] HospitalIn the event this information is protected by the Federal Confidentiality of Alcohol and Drug Abuse Patient Records regulations: The Federal rules restrict any use of the information to criminally investigate or prosecute any alcohol or drug abuse patient.[facility] HospitalIn the event this information is protected by the Federal Confidentiality of Alcohol and Drug Abuse Patient Records regulations: The Federal rules restrict any use of the information to criminally investigate or prosecute any alcohol or drug abuse patient.[facility] HospitalIn the event this information is protected by the Federal Confidentiality of Alcohol and Drug Abuse Patient Records regulations: The Federal rules restrict any use of the information to criminally investigate or prosecute any alcohol or drug abuse patient.[facility] HospitalIn the event this information is protected by the Federal Confidentiality of Alcohol and Drug Abuse Patient Records regulations: The Federal rules restrict any use of the information to criminally investigate or prosecute any alcohol or drug abuse patient.[facility] HospitalIn the event this information is protected by the Federal Confidentiality of Alcohol and Drug Abuse Patient Records regulations: The Federal rules restrict any use of the information to criminally investigate or prosecute any alcohol or drug abuse patient.[facility] HospitalIn the event this information is protected by the Federal Confidentiality of Alcohol and Drug Abuse Patient Records regulations: The Federal rules restrict any use of the information to criminally investigate or prosecute any alcohol or drug abuse patient.[facility] HospitalIn the event this information is protected by the Federal Confidentiality of Alcohol and Drug Abuse Patient Records regulations: The Federal rules restrict any use of the information to criminally investigate or prosecute any alcohol or drug abuse patient.[facility] HospitalIn the event this information is protected by the Federal Confidentiality of Alcohol and Drug Abuse Patient Records regulations: The Federal rules restrict any use of the information to criminally investigate or prosecute any alcohol or drug abuse patient.[facility] HospitalIn the event this information is protected by the Federal Confidentiality of Alcohol and Drug Abuse Patient Records regulations: The Federal rules restrict any use of the information to criminally investigate or prosecute any alcohol or drug abuse patient.[facility] HospitalIn the event this information is protected by the Federal Confidentiality of Alcohol and Drug Abuse Patient Records regulations: The Federal rules restrict any use of the information to criminally investigate or prosecute any alcohol or drug abuse patient.[facility] HospitalIn the event this information is protected by the Federal Confidentiality of Alcohol and Drug Abuse Patient Records regulations: The Federal rules restrict any use of the information to criminally investigate or prosecute any alcohol or drug abuse patient.[facility] HospitalIn the event this information is protected by the Federal Confidentiality of Alcohol and Drug Abuse Patient Records regulations: The Federal rules restrict any use of the information to criminally investigate or prosecute any alcohol or drug abuse patient.[facility] HospitalIn the event this information is protected by the Federal Confidentiality of Alcohol and Drug Abuse Patient Records regulations: The Federal rules restrict any use of the information to criminally investigate or prosecute any alcohol or drug abuse patient.[facility] HospitalIn the event this information is protected by the Federal Confidentiality of Alcohol and Drug Abuse Patient Records regulations: The Federal rules restrict any use of the information to criminally investigate or prosecute any alcohol or drug abuse patient.[facility] HospitalIn the event this information is protected by the Federal Confidentiality of Alcohol and Drug Abuse Patient Records regulations: The Federal rules restrict any use of the information to criminally investigate or prosecute any alcohol or drug abuse patient.[facility] HospitalIn the event this information is protected by the Federal Confidentiality of Alcohol and Drug Abuse Patient Records regulations: The Federal rules restrict any use of the information to criminally investigate or prosecute any alcohol or drug abuse patient.[facility] HospitalIn the event this information is protected by the Federal Confidentiality of Alcohol and Drug Abuse Patient Records regulations: The Federal rules restrict any use of the information to criminally investigate or prosecute any alcohol or drug abuse patient.[facility] HospitalIn the event this information is protected by the Federal Confidentiality of Alcohol and Drug Abuse Patient Records regulations: The Federal rules restrict any use of the information to criminally investigate or prosecute any alcohol or drug abuse patient.[facility] HospitalIn the event this information is protected by the Federal Confidentiality of Alcohol and Drug Abuse Patient Records regulations: The Federal rules restrict any use of the information to criminally investigate or prosecute any alcohol or drug abuse patient.[facility] HospitalIn the event this information is protected by the Federal Confidentiality of Alcohol and Drug Abuse Patient Records regulations: The Federal rules restrict any use of the information to criminally investigate or prosecute any alcohol or drug abuse patient.[facility] HospitalIn the event this information is protected by the Federal Confidentiality of Alcohol and Drug Abuse Patient Records regulations: The Federal rules restrict any use of the information to criminally investigate or prosecute any alcohol or drug abuse patient.[facility] HospitalIn the event this information is protected by the Federal Confidentiality of Alcohol and Drug Abuse Patient Records regulations: The Federal rules restrict any use of the information to criminally investigate or prosecute any alcohol or drug abuse patient.[facility] HospitalIn the event this information is protected by the Federal Confidentiality of Alcohol and Drug Abuse Patient Records regulations: The Federal rules restrict any use of the information to criminally investigate or prosecute any alcohol or drug abuse patient.[facility] HospitalIn the event this information is protected by the Federal Confidentiality of Alcohol and Drug Abuse Patient Records regulations: The Federal rules restrict any use of the information to criminally investigate or prosecute any alcohol or drug abuse patient.[facility] HospitalIn the event this information is protected by the Federal Confidentiality of Alcohol and Drug Abuse Patient Records regulations: The Federal rules restrict any use of the information to criminally investigate or prosecute any alcohol or drug abuse patient.[facility] HospitalIn the event this information is protected by the Federal Confidentiality of Alcohol and Drug Abuse Patient Records regulations: The Federal rules restrict any use of the information to criminally investigate or prosecute any alcohol or drug abuse patient.[facility] HospitalIn the event this information is protected by the Federal Confidentiality of Alcohol and Drug Abuse Patient Records regulations: The Federal rules restrict any use of the information to criminally investigate or prosecute any alcohol or drug abuse patient.[facility] HospitalIn the event this information is protected by the Federal Confidentiality of Alcohol and Drug Abuse Patient Records regulations: The Federal rules restrict any use of the information to criminally investigate or prosecute any alcohol or drug abuse patient.[facility] HospitalIn the event this information is protected by the Federal Confidentiality of Alcohol and Drug Abuse Patient Records regulations: The Federal rules restrict any use of the information to criminally investigate or prosecute any alcohol or drug abuse patient.[facility] HospitalIn the event this information is protected by the Federal Confidentiality of Alcohol and Drug Abuse Patient Records regulations: The Federal rules restrict any use of the information to criminally investigate or prosecute any alcohol or drug abuse patient.[facility] HospitalIn the event this information is protected by the Federal Confidentiality of Alcohol and Drug Abuse Patient Records regulations: The Federal rules restrict any use of the information to criminally investigate or prosecute any alcohol or drug abuse patient.[facility] HospitalIn the event this information is protected by the Federal Confidentiality of Alcohol and Drug Abuse Patient Records regulations: The Federal rules restrict any use of the information to criminally investigate or prosecute any alcohol or drug abuse patient.[facility] HospitalIn the event this information is protected by the Federal Confidentiality of Alcohol and Drug Abuse Patient Records regulations: The Federal rules restrict any use of the information to criminally investigate or prosecute any alcohol or drug abuse patient.[facility] HospitalIn the event this information is protected by the Federal Confidentiality of Alcohol and Drug Abuse Patient Records regulations: The Federal rules restrict any use of the information to criminally investigate or prosecute any alcohol or drug abuse patient.[facility] HospitalIn the event this information is protected by the Federal Confidentiality of Alcohol and Drug Abuse Patient Records regulations: The Federal rules restrict any use of the information to criminally investigate or prosecute any alcohol or drug abuse patient.[facility] HospitalIn the event this information is protected by the Federal Confidentiality of Alcohol and Drug Abuse Patient Records regulations: The Federal rules restrict any use of the information to criminally investigate or prosecute any alcohol or drug abuse patient.[facility] HospitalIn the event this information is protected by the Federal Confidentiality of Alcohol and Drug Abuse Patient Records regulations: The Federal rules restrict any use of the information to criminally investigate or prosecute any alcohol or drug abuse patient.[facility] HospitalIn the event this information is protected by the Federal Confidentiality of Alcohol and Drug Abuse Patient Records regulations: The Federal rules restrict any use of the information to criminally investigate or prosecute any alcohol or drug abuse patient.[facility] HospitalIn the event this information is protected by the Federal Confidentiality of Alcohol and Drug Abuse Patient Records regulations: The Federal rules restrict any use of the information to criminally investigate or prosecute any alcohol or drug abuse patient.[facility] HospitalIn the event this information is protected by the Federal Confidentiality of Alcohol and Drug Abuse Patient Records regulations: The Federal rules restrict any use of the information to criminally investigate or prosecute any alcohol or drug abuse patient.[facility] HospitalIn the event this information is protected by the Federal Confidentiality of Alcohol and Drug Abuse Patient Records regulations: The Federal rules restrict any use of the information to criminally investigate or prosecute any alcohol or drug abuse patient.[facility] HospitalIn the event this information is protected by the Federal Confidentiality of Alcohol and Drug Abuse Patient Records regulations: The Federal rules restrict any use of the information to criminally investigate or prosecute any alcohol or drug abuse patient.[facility] HospitalIn the event this information is protected by the Federal Confidentiality of Alcohol and Drug Abuse Patient Records regulations: The Federal rules restrict any use of the information to criminally investigate or prosecute any alcohol or drug abuse patient.[facility] HospitalIn the event this information is protected by the Federal Confidentiality of Alcohol and Drug Abuse Patient Records regulations: The Federal rules restrict any use of the information to criminally investigate or prosecute any alcohol or drug abuse patient.[facility] HospitalIn the event this information is protected by the Federal Confidentiality of Alcohol and Drug Abuse Patient Records regulations: The Federal rules restrict any use of the information to criminally investigate or prosecute any alcohol or drug abuse patient.[facility] HospitalIn the event this information is protected by the Federal Confidentiality of Alcohol and Drug Abuse Patient Records regulations: The Federal rules restrict any use of the information to criminally investigate or prosecute any alcohol or drug abuse patient.[facility] HospitalIn the event this information is protected by the Federal Confidentiality of Alcohol and Drug Abuse Patient Records regulations: The Federal rules restrict any use of the information to criminally investigate or prosecute any alcohol or drug abuse patient.[facility] HospitalIn the event this information is protected by the Federal Confidentiality of Alcohol and Drug Abuse Patient Records regulations: The Federal rules restrict any use of the information to criminally investigate or prosecute any alcohol or drug abuse patient.[facility] HospitalIn the event this information is protected by the Federal Confidentiality of Alcohol and Drug Abuse Patient Records regulations: The Federal rules restrict any use of the information to criminally investigate or prosecute any alcohol or drug abuse patient.[facility] HospitalIn the event this information is protected by the Federal Confidentiality of Alcohol and Drug Abuse Patient Records regulations: The Federal rules restrict any use of the information to criminally investigate or prosecute any alcohol or drug abuse patient.[facility] HospitalIn the event this information is protected by the Federal Confidentiality of Alcohol and Drug Abuse Patient Records regulations: The Federal rules restrict any use of the information to criminally investigate or prosecute any alcohol or drug abuse patient.[facility] HospitalIn the event this information is protected by the Federal Confidentiality of Alcohol and Drug Abuse Patient Records regulations: The Federal rules restrict any use of the information to criminally investigate or prosecute any alcohol or drug abuse patient.[facility] HospitalIn the event this information is protected by the Federal Confidentiality of Alcohol and Drug Abuse Patient Records regulations: The Federal rules restrict any use of the information to criminally investigate or prosecute any alcohol or drug abuse patient.[facility] HospitalIn the event this information is protected by the Federal Confidentiality of Alcohol and Drug Abuse Patient Records regulations: The Federal rules restrict any use of the information to criminally investigate or prosecute any alcohol or drug abuse patient.[facility] HospitalIn the event this information is protected by the Federal Confidentiality of Alcohol and Drug Abuse Patient Records regulations: The Federal rules restrict any use of the information to criminally investigate or prosecute any alcohol or drug abuse patient.[facility] HospitalIn the event this information is protected by the Federal Confidentiality of Alcohol and Drug Abuse Patient Records regulations: The Federal rules restrict any use of the information to criminally investigate or prosecute any alcohol or drug abuse patient.[facility] HospitalIn the event this information is protected by the Federal Confidentiality of Alcohol and Drug Abuse Patient Records regulations: The Federal rules restrict any use of the information to criminally investigate or prosecute any alcohol or drug abuse patient.[facility] HospitalIn the event this information is protected by the Federal Confidentiality of Alcohol and Drug Abuse Patient Records regulations: The Federal rules restrict any use of the information to criminally investigate or prosecute any alcohol or drug abuse patient.[facility] HospitalIn the event this information is protected by the Federal Confidentiality of Alcohol and Drug Abuse Patient Records regulations: The Federal rules restrict any use of the information to criminally investigate or prosecute any alcohol or drug abuse patient.[facility] HospitalIn the event this information is protected by the Federal Confidentiality of Alcohol and Drug Abuse Patient Records regulations: The Federal rules restrict any use of the information to criminally investigate or prosecute any alcohol or drug abuse patient.[facility] HospitalIn the event this information is protected by the Federal Confidentiality of Alcohol and Drug Abuse Patient Records regulations: The Federal rules restrict any use of the information to criminally investigate or prosecute any alcohol or drug abuse patient.[facility] HospitalIn the event this information is protected by the Federal Confidentiality of Alcohol and Drug Abuse Patient Records regulations: The Federal rules restrict any use of the information to criminally investigate or prosecute any alcohol or drug abuse patient.[facility] HospitalIn the event this information is protected by the Federal Confidentiality of Alcohol and Drug Abuse Patient Records regulations: The Federal rules restrict any use of the information to criminally investigate or prosecute any alcohol or drug abuse patient.[facility] HospitalIn the event this information is protected by the Federal Confidentiality of Alcohol and Drug Abuse Patient Records regulations: The Federal rules restrict any use of the information to criminally investigate or prosecute any alcohol or drug abuse patient.[facility] HospitalIn the event this information is protected by the Federal Confidentiality of Alcohol and Drug Abuse Patient Records regulations: The Federal rules restrict any use of the information to criminally investigate or prosecute any alcohol or drug abuse patient.[facility] HospitalIn the event this information is protected by the Federal Confidentiality of Alcohol and Drug Abuse Patient Records regulations: The Federal rules restrict any use of the information to criminally investigate or prosecute any alcohol or drug abuse patient.[facility] HospitalIn the event this information is protected by the Federal Confidentiality of Alcohol and Drug Abuse Patient Records regulations: The Federal rules restrict any use of the information to criminally investigate or prosecute any alcohol or drug abuse patient.[facility] HospitalIn the event this information is protected by the Federal Confidentiality of Alcohol and Drug Abuse Patient Records regulations: The Federal rules restrict any use of the information to criminally investigate or prosecute any alcohol or drug abuse patient.[facility] HospitalIn the event this information is protected by the Federal Confidentiality of Alcohol and Drug Abuse Patient Records regulations: The Federal rules restrict any use of the information to criminally investigate or prosecute any alcohol or drug abuse patient.[facility] HospitalIn the event this information is protected by the Federal Confidentiality of Alcohol and Drug Abuse Patient Records regulations: The Federal rules restrict any use of the information to criminally investigate or prosecute any alcohol or drug abuse patient.[facility] HospitalIn the event this information is protected by the Federal Confidentiality of Alcohol and Drug Abuse Patient Records regulations: The Federal rules restrict any use of the information to criminally investigate or prosecute any alcohol or drug abuse patient.[facility] HospitalIn the event this information is protected by the Federal Confidentiality of Alcohol and Drug Abuse Patient Records regulations: The Federal rules restrict any use of the information to criminally investigate or prosecute any alcohol or drug abuse patient.[facility] HospitalIn the event this information is protected by the Federal Confidentiality of Alcohol and Drug Abuse Patient Records regulations: The Federal rules restrict any use of the information to criminally investigate or prosecute any alcohol or drug abuse patient.[facility] HospitalIn the event this information is protected by the Federal Confidentiality of Alcohol and Drug Abuse Patient Records regulations: The Federal rules restrict any use of the information to criminally investigate or prosecute any alcohol or drug abuse patient.[facility] HospitalIn the event this information is protected by the Federal Confidentiality of Alcohol and Drug Abuse Patient Records regulations: The Federal rules restrict any use of the information to criminally investigate or prosecute any alcohol or drug abuse patient.[facility] HospitalIn the event this information is protected by the Federal Confidentiality of Alcohol and Drug Abuse Patient Records regulations: The Federal rules restrict any use of the information to criminally investigate or prosecute any alcohol or drug abuse patient.[facility] HospitalIn the event this information is protected by the Federal Confidentiality of Alcohol and Drug Abuse Patient Records regulations: The Federal rules restrict any use of the information to criminally investigate or prosecute any alcohol or drug abuse patient.[facility] HospitalIn the event this information is protected by the Federal Confidentiality of Alcohol and Drug Abuse Patient Records regulations: The Federal rules restrict any use of the information to criminally investigate or prosecute any alcohol or drug abuse patient.[facility] HospitalIn the event this information is protected by the Federal Confidentiality of Alcohol and Drug Abuse Patient Records regulations: The Federal rules restrict any use of the information to criminally investigate or prosecute any alcohol or drug abuse patient.[facility] HospitalIn the event this information is protected by the Federal Confidentiality of Alcohol and Drug Abuse Patient Records regulations: The Federal rules restrict any use of the information to criminally investigate or prosecute any alcohol or drug abuse patient.[facility] HospitalIn the event this information is protected by the Federal Confidentiality of Alcohol and Drug Abuse Patient Records regulations: The Federal rules restrict any use of the information to criminally investigate or prosecute any alcohol or drug abuse patient.[facility] HospitalIn the event this information is protected by the Federal Confidentiality of Alcohol and Drug Abuse Patient Records regulations: The Federal rules restrict any use of the information to criminally investigate or prosecute any alcohol or drug abuse patient.[facility] HospitalIn the event this information is protected by the Federal Confidentiality of Alcohol and Drug Abuse Patient Records regulations: The Federal rules restrict any use of the information to criminally investigate or prosecute any alcohol or drug abuse patient.[facility] HospitalIn the event this information is protected by the Federal Confidentiality of Alcohol and Drug Abuse Patient Records regulations: The Federal rules restrict any use of the information to criminally investigate or prosecute any alcohol or drug abuse patient.[facility] HospitalIn the event this information is protected by the Federal Confidentiality of Alcohol and Drug Abuse Patient Records regulations: The Federal rules restrict any use of the information to criminally investigate or prosecute any alcohol or drug abuse patient.[facility] HospitalIn the event this information is protected by the Federal Confidentiality of Alcohol and Drug Abuse Patient Records regulations: The Federal rules restrict any use of the information to criminally investigate or prosecute any alcohol or drug abuse patient.[facility] HospitalIn the event this information is protected by the Federal Confidentiality of Alcohol and Drug Abuse Patient Records regulations: The Federal rules restrict any use of the information to criminally investigate or prosecute any alcohol or drug abuse patient.[facility] HospitalIn the event this information is protected by the Federal Confidentiality of Alcohol and Drug Abuse Patient Records regulations: The Federal rules restrict any use of the information to criminally investigate or prosecute any alcohol or drug abuse patient.[facility] HospitalIn the event this information is protected by the Federal Confidentiality of Alcohol and Drug Abuse Patient Records regulations: The Federal rules restrict any use of the information to criminally investigate or prosecute any alcohol or drug abuse patient.[facility] HospitalIn the event this information is protected by the Federal Confidentiality of Alcohol and Drug Abuse Patient Records regulations: The Federal rules restrict any use of the information to criminally investigate or prosecute any alcohol or drug abuse patient.[facility] HospitalIn the event this information is protected by the Federal Confidentiality of Alcohol and Drug Abuse Patient Records regulations: The Federal rules restrict any use of the information to criminally investigate or prosecute any alcohol or drug abuse patient.[facility] HospitalIn the event this information is protected by the Federal Confidentiality of Alcohol and Drug Abuse Patient Records regulations: The Federal rules restrict any use of the information to criminally investigate or prosecute any alcohol or drug abuse patient.[facility] HospitalIn the event this information is protected by the Federal Confidentiality of Alcohol and Drug Abuse Patient Records regulations: The Federal rules restrict any use of the information to criminally investigate or prosecute any alcohol or drug abuse patient.[facility] HospitalIn the event this information is protected by the Federal Confidentiality of Alcohol and Drug Abuse Patient Records regulations: The Federal rules restrict any use of the information to criminally investigate or prosecute any alcohol or drug abuse patient.[facility] HospitalIn the event this information is protected by the Federal Confidentiality of Alcohol and Drug Abuse Patient Records regulations: The Federal rules restrict any use of the information to criminally investigate or prosecute any alcohol or drug abuse patient.[facility] HospitalIn the event this information is protected by the Federal Confidentiality of Alcohol and Drug Abuse Patient Records regulations: The Federal rules restrict any use of the information to criminally investigate or prosecute any alcohol or drug abuse patient.[facility] HospitalIn the event this information is protected by the Federal Confidentiality of Alcohol and Drug Abuse Patient Records regulations: The Federal rules restrict any use of the information to criminally investigate or prosecute any alcohol or drug abuse patient.[facility] HospitalIn the event this information is protected by the Federal Confidentiality of Alcohol and Drug Abuse Patient Records regulations: The Federal rules restrict any use of the information to criminally investigate or prosecute any alcohol or drug abuse patient.[facility] HospitalIn the event this information is protected by the Federal Confidentiality of Alcohol and Drug Abuse Patient Records regulations: The Federal rules restrict any use of the information to criminally investigate or prosecute any alcohol or drug abuse patient.[facility] HospitalIn the event this information is protected by the Federal Confidentiality of Alcohol and Drug Abuse Patient Records regulations: The Federal rules restrict any use of the information to criminally investigate or prosecute any alcohol or drug abuse patient.[facility] Care Teams (unrecognized sec tion and content) Food Production Supervisor Relationship Specialty Start Date End Date Torres Yao MD [address] [place] [address] PCP - General Family Practice 01/14/15 Food Production Supervisor Relationship Specialty Start Date End Date Torres Yao MD [address] [facility] [address] PCP - General Family Practice 01/14/15 Food Production Supervisor Relationship Specialty Start Date End Date Torres Yao MD [address] [facility] [address] PCP - General Family Practice 01/14/15 Food Production Supervisor Relationship Specialty Start Date End Date Torres Yao MD [address] [facility] [address] PCP - General Family Practice 01/14/15 Food Production Supervisor Relationship Specialty Start Date End Date Torres Yao MD [address] [facility] [address] PCP - General Family Practice 01/14/15 Food Production Supervisor Relationship Specialty Start Date End Date Torres Yao MD [address] [facility] [address] PCP - General Family Practice 01/14/15 Food Production Supervisor Relationship Specialty Start Date End Date Torres Yao MD [address] [facility] [address] PCP - General Family Practice 01/14/15 Food Production Supervisor Relationship Specialty Start Date End Date Torres Yao MD [address] [facility] [address] PCP - General Family Medicine 01/14/15 Food Production Supervisor Relationship Specialty Start Date End Date Torres Yao MD [address] [facility] [address] PCP - General Family Medicine 01/14/15 Food Production Supervisor Relationship Specialty Start Date End Date Torres Yao MD [address] [facility] [address] PCP - General Family Medicine 01/14/15 Food Production Supervisor Relationship Specialty Start Date End Date Torres Yao MD [address] [facility] [address] PCP - General Family Medicine 01/14/15 Food Production Supervisor Relationship Specialty Start Date End Date Torres Yao MD [address] [facility] [address] PCP - General Family Medicine 01/14/15 Food Production Supervisor Relationship Specialty Start Date End Date Torres Yao MD [address] [facility] [address] PCP - General Family Medicine 01/14/15 Food Production Supervisor Relationship Specialty Start Date End Date Torres Yao MD [address] [facility] [address] PCP - General Family Medicine 01/14/15 Food Production Supervisor Relationship Specialty Start Date End Date Torres Yao MD [address] [facility] [address] PCP - General Family Medicine 01/14/15 Food Production Supervisor Relationship Specialty Start Date End Date Torres aYo MD [address] [facility] [address] PCP - General Family Medicine 01/14/15 Food Production Supervisor Relationship Specialty Start Date End Date Torres Yao MD [address] [facility] [address] PCP - General Family Medicine 01/14/15 Food Production Supervisor Relationship Specialty Start Date End Date Torres Yao MD [address] [facility] [address] PCP - General Family Medicine 01/14/15 Food Production Supervisor Relationship Specialty Start Date End Date Torres Yao MD [address] [place] [address] PCP - General Family Medicine 01/14/15 Food Production Supervisor Relationship Specialty Start Date End Date Torres Yao MD [address] [place] [address] PCP - General Family Medicine 01/14/15 Food Production Supervisor Relationship Specialty Start Date End Date Torres Yao MD [address] [place] [address] PCP - General Family Medicine 01/14/15 Food Production Supervisor Relationship Specialty Start Date End Date Torres Yao MD [address] [place] [address] PCP - General Family Medicine 01/14/15 Food Production Supervisor Relationship Specialty Start Date End Date Torres Yao MD [address] [place] [address] PCP - General Family Medicine 01/14/15 Food Production Supervisor Relationship Specialty Start Date End Date Torres Yao MD [address] [place] [address] PCP - General Family Medicine 01/14/15 Food Production Supervisor Relationship Specialty Start Date End Date Torres Yao MD [address] [place] [address] PCP - General Family Medicine 01/14/15 Food Production Supervisor Relationship Specialty Start Date End Date Torres Yao MD [address] [place] [address] PCP - General Family Medicine 01/14/15 Food Production Supervisor Relationship Specialty Start Date End Date Torres Yao MD [address] [facility] [address] PCP - General Family Medicine 01/14/15 Food Production Supervisor Relationship Specialty Start Date End Date Torres Yao MD [address] [facility] [address] PCP - General Family Medicine 01/14/15 Food Production Supervisor Relationship Specialty Start Date End Date Torres Yao MD [address] [facility] [address] PCP - General Family Medicine 01/14/15 Food Production Supervisor Relationship Specialty Start Date End Date Torres Yao MD [address] [facility] [address] PCP - General Family Medicine 01/14/15 Food Production Supervisor Relationship Specialty Start Date End Date Torres Yao MD [address] [facility] [address] PCP - General Family Medicine 01/14/15 Food Production Supervisor Relationship Specialty Start Date End Date Torres Yao MD [address] [facility] [address] PCP - General Family Medicine 01/14/15 Food Production Supervisor Relationship Specialty Start Date End Date Torres Yao MD [address] [facility] [address] PCP - General Family Medicine 01/14/15 Food Production Supervisor Relationship Specialty Start Date End Date Torres Yao MD [address] [facility] [address] PCP - General Family Medicine 01/14/15 Food Production Supervisor Relationship Specialty Start Date End Date Torres Yao MD [address] [place], [place] [address] PCP - General Family Medicine 01/14/15 Food Production Supervisor Relationship Specialty Start Date End Date Torres Yao MD [address] [place], [place] [address] PCP - General Family Medicine 01/14/15 Food Production Supervisor Relationship Specialty Start Date End Date Torres Yao MD [address] [place] [address] PCP - General Family Medicine 01/14/15 Food Production Supervisor Relationship Specialty Start Date End Date Torres Yao MD [address] [place] [address] PCP - General Family Medicine 01/14/15 Food Production Supervisor Relationship Specialty Start Date End Date Torres Yao MD [address] [place] [address] PCP - General Family Medicine 01/14/15 Food Production Supervisor Relationship Specialty Start Date End Date Torres Yao MD [address] [place] [address] PCP - General Family Medicine 01/14/15 Food Production Supervisor Relationship Specialty Start Date End Date Torres Yao MD [address] [place], [place] [address] PCP - General Family Medicine 01/14/15 Food Production Supervisor Relationship Specialty Start Date End Date Torres Yao MD [address] [place], [place] [address] PCP - General Family Medicine 01/14/15 Food Production Supervisor Relationship Specialty Start Date End Date Torres Yao MD [address] [facility] [address] PCP - General Family Medicine 01/14/15 Food Production Supervisor Relationship Specialty Start Date End Date Torres Yao MD [address] [facility] [address] PCP - General Family Medicine 01/14/15 Food Production Supervisor Relationship Specialty Start Date End Date Torres Yao MD [address] [place] [address] PCP - General Family Medicine 01/14/15 Beryl Tejada, DIGITAL PROJECT COORDINATOR.RUFFLING MACHINE OPERATOR [address] [place] [address] Advisor [employer] F[facility] Family Medicine 10/07/24 Ellen Rene, DIGITAL PROJECT COORDINATOR.RUFFLING MACHINE OPERATOR [address] [facility] [address] Advisor [employer] Founder Family Medicine 10/07/24 Food Production Supervisor Relationship Specialty Start Date End Date Torres Yao MD [address] [place] [address] PCP - General Family Medicine 01/14/15 Beryl Tejada, DIGITAL PROJECT COORDINATOR.RUFFLING MACHINE OPERATOR [address] [place] [address] [facility] Family Medicine 10/07/24 Ellen Rene, DIGITAL PROJECT COORDINATOR.RUFFLING MACHINE OPERATOR [address] [facility] [address] Advisor [employer] [facility] Family Medicine 10/07/24 Food Production Supervisor Relationship Specialty Start Date End Date Torres Yao MD [address] [place] [address] PCP - General Family Medicine 01/14/15 Beryl Tejada APRN.RUFFLING MACHINE OPERATOR [address] [facility] [place] [id number] Advisor [employer] [facility] Family Medicine 10/07/24 Ellen Rene DIGITAL PROJECT COORDINATOR.RUFFLING MACHINE OPERATOR [address] [place] [address] Advisor [employer] Founder [facility] Medicine 10/07/24 Food Production Supervisor Relationship Specialty Start Date End Date Torres Yao MD [address] [place] [address] PCP - General Family Medicine 01/14/15 Beryl Tejada DIGITAL PROJECT COORDINATOR.RUFFLING MACHINE OPERATOR [address] [facility] [place] [address] Advisor [employer] Family Medicine 10/07/24 Ellen Rene DIGITAL PROJECT COORDINATOR.RUFFLING MACHINE OPERATOR [address] [place] [address] Advisor [employer] [facility] Family Medicine 10/07/24 Food Production Supervisor Relationship Specialty Start Date End Date Torres Yao MD [address] [place] [address] PCP - General Family Medicine 01/14/15 Beryl Tejada APRN.RUFFLING MACHINE OPERATOR [address] [facility] [place] [address] Advisor [employer] [facility] Family Medicine 10/07/24 Ellen Rene DIGITAL PROJECT COORDINATOR.RUFFLING MACHINE OPERATOR [address] [place] [address] Advisor [employer] Founder Family [facility] 10/07/24 Food Production Supervisor Relationship Specialty Start Date End Date Torres Yao MD [address] [place] [address] PCP - General Family Medicine 01/14/15 Beryl Tejada, DIGITAL PROJECT COORDINATOR.RUFFLING MACHINE OPERATOR [address] [place] [address] Advisor [employer] Family Medicine 10/07/24 Ellen Rene APRN.RUFFLING MACHINE OPERATOR [address] [place] [address] Advisor [facility] 10/07/24 Food Production Supervisor Relationship Specialty Start Date End Date Torres Yao MD [address] [place] [address] PCP - General Family Medicine 01/14/15 Beryl Tejada DIGITAL PROJECT COORDINATOR.RUFFLING MACHINE OPERATOR [address] [place] [address] Advisor [employer] [facility] Family Medicine 10/07/24 Ellen Rene DIGITAL PROJECT COORDINATOR.RUFFLING MACHINE OPERATOR [address] [place] [address] Advisor [employer] [facility] Family [facility] 10/07/24 Food Production Supervisor Relationship Specialty Start Date End Date Torres Yao MD [address] [place] [address] PCP - General Family Medicine 01/14/15 Beryl Tejada, DIGITAL PROJECT COORDINATOR.RUFFLING MACHINE OPERATOR [address] [place] [address] Advisor [employer] [facility] Family Medicine 10/07/24 Ellen Rene DIGITAL PROJECT COORDINATOR.RUFFLING MACHINE OPERATOR [address] [place] [address] [facility] 10/07/24 Food Production Supervisor Relationship Specialty Start Date End Date Torres Yao MD [address] [facility] [place] [place] [address] [phone] PCP - General Family Medicine 01/14/15 Beryl Tejada APRN.RUFFLING MACHINE OPERATOR [address] [facility] [place] [address] [facility] 10/07/24 Ellen Rene DIGITAL PROJECT COORDINATOR.RUFFLING MACHINE OPERATOR [address] [facility] [place] [address] [facility] 10/07/24 Food Production Supervisor Relationship Specialty Start Date End Date Torres Yao MD [address] [place] [address] PCP - General Family Medicine 01/14/15 Beryl Tejada, DIGITAL PROJECT COORDINATOR.RUFFLING MACHINE OPERATOR [address] [facility] [place] [address] [facility] Medicine 10/07/24 Ellen Rene DIGITAL PROJECT COORDINATOR.RUFFLING MACHINE OPERATOR [address] [facility] [address] [facility] Medicine 10/07/24 Food Production Supervisor Relationship Specialty Start Date End Date Torres Yao MD [address] [facility] [place] [address] [phone] PCP - General Family Medicine 01/14/15 Beryl Tejada, DIGITAL PROJECT COORDINATOR.RUFFLING MACHINE OPERATOR [address] [facility] [place] [place] [address] Advisor [employer] [facility] Family Medicine 10/07/24 Ellen Rene DIGITAL PROJECT COORDINATOR.RUFFLING MACHINE OPERATOR [address] [facility] [address] Advisor [employer] [facility] Family Medicine 10/07/24 Food Production Supervisor Relationship Specialty Start Date End Date Torres Yao MD [address] [facility] [place] [address] PCP - General Family Medicine 01/14/15 Beryl Tejada DIGITAL PROJECT COORDINATOR.RUFFLING MACHINE OPERATOR [address] [facility] [place] [place] [address] Advisor [employer] [facility] Family Medicine 10/07/24 Ellen Rene DIGITAL PROJECT COORDINATOR.RUFFLING MACHINE OPERATOR [address] [facility] [address] Advisor [facility] 10/07/24 Food Production Supervisor Relationship Specialty Start Date End Date Torres Yao MD [address] [facility] [place] [address] PCP - General Family Medicine 01/14/15 Beryl Tejada, DIGITAL PROJECT COORDINATOR.RUFFLING MACHINE OPERATOR [address] [place] [address] Advisor [employer] [facility] Family Medicine 10/07/24 Ellen Rene DIGITAL PROJECT COORDINATOR.RUFFLING MACHINE OPERATOR [address] [place] [address] Advisor [facility] 10/07/24 Food Production Supervisor Relationship Specialty Start Date End Date Torres Yao MD [address] [facility] [place], [place] [address] PCP - General Family Medicine 01/14/15 Beryl Tejada, DIGITAL PROJECT COORDINATOR.RUFFLING MACHINE OPERATOR [address] [facility] [place] [address] Advisor [employer] Founder [facility] 10/07/24 Ellen Rene DIGITAL PROJECT COORDINATOR.RUFFLING MACHINE OPERATOR [address] [facility] [place] [address] Advisor [facility] 10/07/24 Team Status: Active Member Role Status [...] April 21, 2025 End: April 21, 2025 Food Production Supervisor Relationship Specialty Start Date End Date Torres Yao MD [address] [facility] [place], [place] [address] PCP - General Family Medicine 01/14/15 Beryl Tejada, DIGITAL PROJECT COORDINATOR.RUFFLING MACHINE OPERATOR [address] [place] [address] Advisor [employer]ounder Family [facility] 10/07/24 Ellen Rene APRN.RUFFLING MACHINE OPERATOR [address] [place] [address] Advisor [facility] 10/07/24 Food Production Supervisor Relationship Specialty Start Date End Date Torres Yao MD [address] [place] [address] PCP - General Family Medicine 01/14/15 Beryl Tejada APRN.RUFFLING MACHINE OPERATOR [address] [place] [address] Advisor [facility] 10/07/24 Ellen Rene DIGITAL PROJECT COORDINATOR.RUFFLING MACHINE OPERATOR [address] [place] [address] Advisor [facility] 10/07/24 Food Production Supervisor Relationship Specialty Start Date End Date Torres Yao MD [address] [place] [address] PCP - General Family Medicine 01/14/15 Beryl Tejada DIGITAL PROJECT COORDINATOR.RUFFLING MACHINE OPERATOR [address] [place] [address] Advisor [facility] 10/07/24 Ellen Rene DIGITAL PROJECT COORDINATOR.RUFFLING MACHINE OPERATOR [address] [place] [address] Advisor [facility] 10/07/24 Team Status: Active Member Role/Relationship Status Dates Dr. Torres Yao MD Primary Care Provider Active Team Status: Inactive Member Role/Relationship Status Dates Dr. Torres Yao MD Primary Care Provider Active Start: April 21, 2025 End: April 21, 2025 Dr. Torres Yoa MD Referring Provider Active Start: April 21, [...] May 20, 2025 End: May 20, 2025 Food Production Supervisor Relationship Specialty Start Date End Date Torres Yao MD [address] [place], [place] [address] PCP - General Family Medicine 01/14/15 Beryl Tejada APRN.RUFFLING MACHINE OPERATOR [address] [place] [address] Advisor [employer] [facility] Family Medicine 10/07/24 Ellen Rene DIGITAL PROJECT COORDINATOR.RUFFLING MACHINE OPERATOR [address] [place] [address] Advisor [employer] [facility] Family Medicine 10/07/24 Team Status: Inactive Member Role/Relationship Status Dates Dr. Torres Yao MD Primary Care Provider Active Start: June 11, 2025 End: June 11, 2025 Mahad Saleh MD Attending Provider Active St art: June 11, 2025 End: June 11, 2025 Mahad Saleh MD Referring Provider Active St art: June 11, 2025 End: June 11, 2025 Team Status: Active Member Role/Relationship Status Dates Dr. Torres Yao MD Primary Care Provider Active Start: June 11, 2025 Mahad Saleh MD Attending Provider Active St art: June 11, 2025 Mahad Saleh MD Referring Provider Active St art: June 11, 2025 Mahad Saleh MD Other Provider Active Start: June 11, 2025 Team Status: Inactive Member Role/Relationship Status Dates Dr. Torres Yao MD Primary Care Provider Active Start: June 13, 2025 End: June 13, 2025 Dr. Torres Yao MD Referring Provider Active Start: June 13, 2025 End: June 13, 2025 Mahad Saleh MD Attending Provider Active St art: June 13, 2025 End: June 13, 2025 Team Status: Inactive Member Role/Relationship Status Dates Dr. Torres Yao MD Primary Care Provider Active Start: June 24, 2025 End: June 24, 2025 Dr. Torres Yao MD Referring Provider Active Start: June 24, 2025 End: June 24, 2025 Mahad Saleh MD Attending Provider Active St art: June 24, 2025 End: June 24, 2025 Team Status: Active Member Role/Relationship Status Dates Dr. Torres Yao MD Primary care physician Active Team Status: Inactive Member Role/Relationship Status Dates Dr. Torres Yao MD Primary care physician Active Start: April 21, 2025 End: April 21, 2025 Dr. Torres Yao MD Referring Provider Active Start: April 21, 2025 End: April 21, 2025 Mahad Saleh MD Attending physician Active S tart: April 21, 2025 End: April 21, 2025 Team Status: Inactive Member Role/Relationship Status Dates Dr. Torres Yao MD Primary care physician Active Start: April 21, 2025 End: April 21, 2025 Dr. Manuel Leary MD Attending physician Active Start: April 21, 2025 End: April 21, 2025 Team Status: Inactive Member Role/Relationship Status Dates Dr. Torres Yao MD Primary care physician Active Start: May 20, 2025 End: May 20, 2025 Mahad Saleh MD Attending physician Active S tart: May 20, 2025 End: May 20, 2025 Mahad Saleh MD Referring Provider Active St art: May 20, 2025 End: May 20, 2025 Team Status: Inactive Member Role/Relationship Status Dates Dr. Torres Yao MD Primary care physician Active Start: May 22, 2025 End: May 22, 2025 Dr. Torres Yao MD Referring Provider Active Start: May 22, 2025 End: May 22, 2025 Mahad Saleh MD Attending physician Active S tart: May 22, 2025 End: May 22, 2025 Team Status: Inactive Member Role/Relationship Status Dates Dr. Torres Yao MD Primary care physician Active Start: June 11, 2025 End: June 11, 2025 Mahad Saleh MD Attending physician Active S tart: June 11, 2025 End: June 11, 2025 Mahad Saleh MD Referring Provider Active St art: June 11, 2025 End: June 11, 2025 Team Status: Active Member Role/Relationship Status Dates Dr. Torres Yao MD Primary care physician Active Start: June 11, 2025 Mahad Saleh MD Attending physician Active S tart: June 11, 2025 Mahad Saleh MD Referring Provider Active St art: June 11, 2025 Mahad Saleh MD Nurse Practitioner Active St art: June 11, 2025 Team Status: Inactive Member Role/Relationship Status Dates Dr. Torres Yao MD Primary care physician Active Start: June 13, 2025 End: June 13, 2025 Dr. Torres Yao MD Referring Provider Active Start: June 13, 2025 End: June 13, 2025 Mahad Saleh MD Attending physician Active S tart: June 13, 2025 End: June 13, 2025 Team Status: Inactive Member Role/Relationship Status Dates Dr. Torres Yao MD Primary care physician Active Start: June 24, 2025 End: June 24, 2025 Dr. Torres Yao MD Referring Provider Active Start: June 24, 2025 End: June 24, 2025 Mahad Saleh MD Attending physician Active S tart: June 24, 2025 End: June 24, 2025 Team Status: Inactive Member Role/Relationship Status Dates Dr. Torres Yao MD Primary care physician Active Start: July 22, 2025 End: July 22, 2025 Dr. Torres Yao MD Referring Provider Active Start: July 22, 2025 End: July 22, 2025 Mahad Saleh MD Attending physician Active S tart: July 22, 2025 End: July 22, 2025 Team Status: Active Member Role/Relationship Status Dates Dr. Torres Yao MD Primary care physician Active Start: July 29, 2025 Mahad Saleh MD Attending physician Active S tart: July 29, 2025 Mahad Saleh MD Referring Provider Active St art: July 29, 2025 Reason for Visit (unrecogniz ed section and content) Reason Comments Physical Therapy Specialty Diagnoses / Procedures Referred By Contac t Referred To Contact [facility] Diagnoses Acute midline low back pain without sciatica Procedures CONSULT TO PHYSICAL THERAPY PHYSICAL THERAPY EVALUATION HIGH COMPLEX 45 MINS Ellen Rene, DIGITAL PROJECT COORDINATOR.RUFFLING MACHINE OPERATOR [address] [place] [address] Phone: tel: fax: [facility] [address] [place] [address] Referral ID Status Reason Start Date Expiration Date Visits Requested Visits Authorized [id number] Authorized PCP Requested Referral Auto-Generate d Referral 05/17/2024 05/10/2025 99 99 Reason Comments PT Progress Note Specialty Diagnoses / Procedures Referred By Contac t Referred To Contact PHYSICAL THERAPY Diagnoses Subacromial bursitis of both shoulders Bilateral shoulder region arthritis Procedures CONSULT TO PHYSICAL THERAPY PHYSICAL THERAPY EVALUATION HIGH COMPLEX 45 MINS Freeman Sarabia PA-C [address] [place] [address] Phone: tel: fax: [facility] [address] [place] [address] Phone: tel: fax: Referral ID Status Reason Start Date Expiration Date Visits Requested Visits Authorized [id number] Authorized PCP Requested Referral Auto-Generate d Referral 11/22/2024 11/22/2025 99 99 Reason Comments PT Eval Specialty Diagnoses / Procedures Referred By Contac t Referred To Contact PHYSICAL THERAPY Diagnoses Subacromial bursitis of both shoulders Bilateral shoulder region arthritis Procedures CONSULT TO PHYSICAL THERAPY PHYSICAL THERAPY EVALUATION HIGH COMPLEX 45 MINS Freeman Sarabia PA-C [address] [place] [address] Pt [facility] [address] [place] [address] Referral ID Status Reason Start Date Expiration Date Visits Requested Visits Authorized [id number] Authorized PCP Requested Referral Auto-Generate d Referral 11/22/2024 11/22/2025 99 99 Reason Comments PT Discharge Specialty Diagnoses / Procedures Referred By Contac t Referred To Contact [facility] Diagnoses Acute midline low back pain without sciatica Procedures CONSULT TO PHYSICAL THERAPY PHYSICAL THERAPY EVALUATION HIGH COMPLEX 45 MINS Ellen Rene, KIM.RUFFLING MACHINE OPERATOR [address] [place] [address] [facility] [address] [place] [address] Referral ID Status Reason Start Date Expiration Date Visits Requested Visits Authorized [id number] Authorized PCP Requested Referral Auto-Generate d Referral [...] Referred By Mercedes maravilla Referred To Contact Diagnoses Bursitis of left shoulder Procedures ARTHROCENTESIS ASPIR&/INJ MAJOR JT/BURSA W/O US ARTHROCENTESIS,ASPIRATION AND/OR INJECTION,MAJOR JOINT OR BURSA W/O US GUIDANCE [facility] [address] [place] [address] Referral ID Status Reason Start Date Expiration Date Visits Re quested Visits Authorized [id number] 1 Reason Onset Date Comments Refill [...] Problem Blood in stool X 1 w [place]. 3 episodes Reason Comments Pain Generalized pain [...] (DEPO-Medrol) (CANCELED) X (OR/PROCEDURE) PRN, Starting on e 08/29/23 at 1508, Until Mon08/29/23 at 1516, Intraprocedure [...] Starting on Milana 01/04/24 at 1450, Until Milnaa 01/04/24 at 1453, Intraprocedure 1450 (Given - Provid er: Min Velazco MD) PRN Medication Order 09/15/2024 09/16/2024 09/17/2024 lidocaine (PF) 10 mg/mL (1 %) injection (XYLOCAINE) (CANCELED) X (OR/PROCEDURE) PRN, Starting on Mon09/17/24 [...] BE BASED ON THE PRIMARY CLINICAL RECORDS. [facility]. provides no warranty or guarantee of the accuracy or completeness of information in this document.
[2025-10-01 18:15] LABS: Hematocrit 41.3 % (37-47); Hemoglobin 13.7 g/dL (12.0-15.0); Immature Granulocytes Count 0.020 X10^3/uL (0.0-0.0); Mean Corp Hgb Conc 33.2 g/dL (32-36); Mean Corpuscular Volume 94.1 fL (81-99); Mean Platelet Vol. 12.0 fl (6.2-12.0); NRBC Flagged by Analyzer 0 % (0-5); Platelet Count 135 K/mm3 (150-450); RBC Distribution Width CV 12.7 % (11.6-14.6); RBC Distribution Width SD 44.2 fl (35.1-43.9); Red Blood Count 4.39 M/mm3 (4.2-5.4); White Blood Count 6.2 K/mm3 (4.4-11.0)
[2025-10-01 18:24] LABS: Internal QC Validated? YES +Cl - CLEAR BKGD; Pregnancy, Serum, hCG Quali. NEGATIVE Negative; Record Kit Lot#, Serum Preg. 980607
[2025-10-01 18:34] LABS: Anion Gap 15 (5-15); BUN 14 mg/dL (4-19); BUN/Creat Ratio 20.3 RATIO (10-20); Calcium,Total 10.0 mg/dL (7.6-11.0); Carbon Dioxide 17.5 mmol/L (21.0-32.0); Chloride 106 mmol/L (98-108); Estimated Creatinine Clearance 120.09 ml/min (50-250); Glucose 117 mg/dL (70-99); Lipase 204 U/L (13-75); Potassium 3.7 mmol/L (3.3-5.1)
[2025-10-01 18:35] LABS: Color, Urine Yellow (Yellow); Glucose, Dipstick Normal (Normal); Ketone-Dipstick Negative (Negative); Leukocyte Esterase-Dipstick Negative /ul (Negative); Nitrite-Dipstick Negative (Negative); Occult Blood-Urine Negative /ul (Negative); Protein-Dipstick 15 mg/dl (Negative); Specific Gravity, Urine 1.015 (1.002-1.030); Urine Bilirubin Dipstick Negative (Negative)
[2025-10-01 19:19] VITALS: BP 112/74; PULSE 61; RESP 17; TEMP 36.4; O2SAT 100
[2025-10-01 19:26] VITALS: BP 112/74; PULSE 61; RESP 17; TEMP 36.4; O2SAT 100
--- NOTE | 2025-10-01 20:29 | HP.PCM.HOS_ITS ---
HPI - General General Date of Service: 10/01/25 Chief Complaint: abdominal pain HPI Narrative PRADEEP CROWE, is a 44 F who presents with abdominal pain. Symptoms began today and were very intense. Saw her primary care doctor who ordered transaminases which were elevated and ultrasound that showed a dilated bile duct. Patient was referred to the emergency room. Patient had similar pain that resolved spontaneously while she was on a trip. Never sought attention for but felt very similar to this. Patient describes her abdominal pain to be more generalized but more so in the right upper quadrant. [ ] [facility] Medical History Hypertension Wears glasses Depression Anxiety Bipolar disorder Arthritis Restless legs Former smoker Impingement of left shoulder Left rotator cuff tear Left shoulder pain Home Medications ?Medication ?Instructions ?Recorded ?Last Taken ?Type lamotrigine 200 mg tablet 100 mg PO DAILY 12/20/19 Unk nown History losartan 25 mg tablet 25 mg PO DAILY 12/20/1912/01 08:45 History valbenazine 80 mg capsule 80 mg PO DAILY GEODONE SE Unknown History trazodone 100 mg tablet 100 - 300 mg PO QHS PRN slee p 05/22/25 Unknown History benztropine 2 mg tablet 2 mg PO 4X/DAY 05/29/25 Unkn own History spironolactone 25 mg tablet 50 mg PO BID 05/29/25 Unkn own History meloxicam 15 mg tablet 15 mg PO QDAY 06/24/25 Unkno wn History pregabalin 150 mg capsule 150 mg PO TID 10/01/25 Unkno wn History tizanidine 4 mg tablet 4 mg PO TID 10/01/25 Unknown History topiramate 200 mg tablet 200 mg PO BID 10/01/25 Unkno wn History ziprasidone HCl 20 mg capsule 20 mg PO DAILY 10/01/25 Unknown History ziprasidone HCl 60 mg capsule 60 mg PO BID 10/01/25 Un known History Allergy/AdvReac Type Severity Reaction Status Date / Time Penicillins (PCN) Allergy Anaphylaxis Verified 10/01/25 17:20 amoxicillin AdvReac Anaphylaxis Verified 10/01/25 17:20 Family History (Updated 10/01/25 @ 20:[address] Kvng Simpson DO) Other Diabetes Surgical History History of wisdom tooth extraction History of tonsillectomy Social History Smoking Status: Former smoker ROS ROS Narrative No fever or chills. Shaking when she is having abdominal pain. All review of systems were negative except as mentioned above in the history of present illness and the other review of systems. Vital Signs Vital Signs Vital Signs: 10/01/25 17:19 10/01/25 19:19 10/01/25 19:26 Temperature 36.0 C L 36.4 C L 36.4 C L Temperature Source Temporal Oral Pulse Rate 51 L 61 61 Respiratory Rate 20 H 17 17 Blood Pressure 111/63 112/74 112/74 Blood Pressure Mean 79 86 86 Pulse Ox 98 100 100 Oxygen Delivery Method Room Air Room Air Weight Weight: 86.183 kg Body Mass Index (BMI) 28.8 Physical Exam Const alert and no apparent distress HEENT normocephalic, head/scalp atraumatic and hearing grossly normal bilaterally Resp normal respiratory effort, no retractions, no use of accessory muscles and clear to auscultation bilaterally Cardio regular rate, regular rhythm, S1 normal heart sound and S2 normal heart sound GI normal to inspection, nondistended, normoactive bowel sounds, soft to palpation and non-distended GI Narrative: RUQ abdominal pain. Neuro Sensorium / Orientation: awake and alert Psych Mood & Affect: anxious Results Lab / Micro Data Attestation: I reviewed the patient's lab results. 10/01/25 18:00 10/01/25 18:00 Labs: Laboratory Results - last 24 hr 10/01/25 18:00: WBC 6.2, RBC 4.39, Hgb 13.7, Hct 41.3, MCV 94.1, MCH 31.2, MCHC 33.2, RDW Std Deviation 44.2 H, RDW Coeff of Kushal 12.7, Plt Count 135 L, MPV 12.0, Immature Gran % (Auto) 0.300, Neut % (Auto) 74.5 H, Lymph % (Auto) 18.6 L, Stafford % (Auto) 5.8, Eos % (Auto) 0.5, Baso % (Auto) 0.3, Absolute Neuts (auto) 4.6, Absolute Lymphs (auto) 1.15, Nucleated RBC % 0, Sodium 139, Potassium 3.7, Chloride 106, Carbon Dioxide 17.5 L, Anion Gap 15, BUN 14, Creatinine 0.68 L, Estim Creat Clear Calc 120.09, Est GFR (MDRD) Non-Af 110, BUN/Creatinine Ratio 20.3 H, Glucose 117 H, Calcium 10.0, Lipase 204 H, Serum , Qual NEGATIVE, Urine Color Yellow, Urine Clarity Clear, Urine pH 6.5, Ur Specific [place] 1.015, Urine Protein 15 H, Urine Glucose (UA) Normal, Urine Ketones Negative, Urine Occult Blood Negative, Urine Nitrite Negative, Urine Bilirubin Negative, Urine Urobilinogen Normal, Ur Leukocyte Esterase Negative, Urine RBC 0 SEEN, Urine WBC 0 SEEN, Ur Squamous Epith Cells 0 SEEN, Amorphous Sediment 1+, Urine Bacteria 1+, Urine Mucus 0 SEEN Assessment & Plan Assessment/Plan (1) Acute gallstone pancreatitis: PLAN: No current choledocholithiasis but on the ultrasound from outpatient. Will repeat the ultrasound. General surgery is been contacted by the emergency room and will see the patient in consultation. Repeat the ultrasound if there is showing evidence choledocholithiasis then we will consult gastroenterology for evaluation for ERCP. In the meantime, continue with pain control, antiemetics and patient may have clear liquid diet. Patient will also receive the IV fluids aggressively. PLAN: Plan Bipolar disorder: Continue with benzatropine, limit or gain, topiramate ziprasidone, valbenazine. VTE prophylaxis with enoxaparin CODE STATUS: Addressed with the patient. Patient was to be full code. Charges/Coding Visit Charges Inpatient E&M: 09652 Init Hosp L2
--- OUTSIDE RECORDS SUMMARY | 2025-10-01 20:35 | XMS RPT_ITS | CCD ---
Author Organization [facility] Care Team Providers Care Varnish Maker Helper Name Role Phone TORRES YAO MD Primary Care Physician [phone] Torres Yao MD Primary Care Provider [phone] Torres Yao MD Primary Care Provider Torres Yao MD Primary Care Provider Torres Yao MD Primary Care Provider NAJMA URIBE, TORRES Primary Care Physician [phone] Torres Yao MD Primary Care Provider MATTIE BAEZ PA-C Attending TORRES Crocker MD Primary Care Unavailable NELDA LOWE Attending Unavailable TORRES YAO MD Primary Care Unavailable PILI PENAL OFFICER-ADIEL CAMEJO Attending TORRES Crocker MD Primary Care Unavailable DR ANABEL TOLEDO MD Attending UnavailTORRES Saavedra MD Primary Care Unavailable Mallory PENAL OFFICER.DARKROOM WORKERBeryl Unavailable Marco Aan PENAL OFFICER.DARKROOM WORKER, Ellen A Unavailable [phone] Eldon PENAL OFFICER.DARKROOM WORKER, Ellen A Unavailable Dr. Torres Yao MD [...] Unavailable SUPPAN, ELLEN A Referring Unavailable NAJMA, OTRRES J Primary Care Unavailable SELF Referring Unavailable [...] Referring Provider Mahad Saleh MD Other Provider [phone] Torres Yao MD Primary Care Physician [phone] Mahad Saleh MD Attending Physician Gibran URIBE, Dr. Jackson Attending Physician Therese URIBE, Mahad Nurse Practitioner [phone] FREEMAN SARABIA Attending Unavailable NAJMA, TORRES J [...] Mahad Attending Unavailable Najma, Torres Referring Unavailable Naguabo, Torres Primary Care Unavailable Najma, Torres Primary Care Unavailable Najma, Torres Referring Unavailable Mollison, Mahad Attending Unavailable Najma, Torres Primary Care Unavailable Manuel Leary Attending Unavailable [place], Torres Primary Care Unavailable Najma, Torres Referring Unavailable Molledison, Mahad Attending Unavailable [place]agu[place], Torres Referring Unavailable [place], Torres Primary Care Unavailable Therese, Mahad Attending Unavailable [place], Torres Primary Care Unavailable Molledison, Mahad Attending Unavailable Therese, Mahad Referring Unavailable [place], Torres Primary Care Unavailable Molledison, Mahad Attending Unavailable Therese, Mahad Referring Unavailable Molledison, Mahad Attending Unavailable Najma, Torres Primary Care Unavailable Molledison, Mahad Referring Unavailable Najma, Torres Referring Unavailable [place]aguabo, Torres Primary Care Unavailable Molledison, Mahad Attending Unavailable Therese, Mahad Attending Unavailable Naguabo, Torres Primary Care Unavailable Molledison, Mahad Referring Unavailable Therese, Mahad Consulting Unavailable Allergies Allergy Classification Reported Allergen(s) Allergy Type Date of Onset Reaction(s) Facility Lincosamides (antibiotic) (1 source) Clindamycin Drug Allergy 7 Diarrhea [facility] Work Phone: Macrolides (antibiotic) (1 source) Azithromycin Drug Allergy 9 Itching [facility] Penicillins (antibiotic) (1 source) Penicillins Drug Allergy 5 Rash [facility] Work Phone: Quinolones (antibiotic) (1 source) levoFLOXacin Drug Allergy 9 Swelling [facility] Sulfonamides (antibiotic) (1 source) Sulfonamides (Antibiotic) Drug Allergy 2 Unknown [facility] (20 sources) Clindamycin; Translations: [clindamycin] Drug Allergy 7 Diarrhea [facility] (4 sources) Penicillin; Translations: [penicillin] Drug Allergy [facility] (4 sources) Sulfonamides (Antibiotic); Translations: [sulfa drugs] Drug allergy [facility] (20 sources) Azithromycin; Translations: [AZITHROMYCIN] Drug Allergy 9 Itching [facility] (20 sources) levoFLOXacin; Translations: [LEVOFLOXACIN] Drug Allergy 9 Swelling [facility] Work Phone: (14 sources) Penicillins; Translations: [PENICILLINS] Propensity to adverse reactions 5 Rash [facility] Work Phone: (20 sources) Sulfonamides (Antibiotic); Translations: [SULFA (SULFONAMIDE ANTIBIOTICS)] Drug Allergy 2 Unknown [facility] (20 sources) Penicillins Propensity to adverse reactions 5 [facility] Work Phone: (14 sources) Penicillins Propensity to adverse reactions 5 [facility] Work Phone: (8 sources) Penicillins Allergy to substance 5 Anaphylaxis [facility] (4 sources) Amoxicillin Drug Allergy 5 Anaphylaxis [facility] Comment on above: & hives (1 source) Amoxicillin Drug Allergy 5 [facility] Repository (1 source) Penicillins Drug allergy (disorder) 5 [facility] Repository Medications Current Medications Medication Drug Class(es) [...] qDay, # 135 tab(s), 3 Refill(s), Pharmacy: [facility] [address] [facility], 172.7, cm, 05/31/21 14:30:00 EDT, Height, kg, [...] Ordered Start: 11-14-2011 take 2 tablets by [facility] once daily lamoTRIgine (LAMICTAL) 200 mg [...] BID, # 180 tab(s), 3 Refill(s), Pharmacy: [facility] #[id number], 172.7, cm, 06/26/23 13:06:00 EDT, Height, kg, [...] on above: Take 7.5-15 mg by [facility] once daily as needed. Take 0.5-1 tablets [...] 1 tablet by tan[facility] three times daily. yl-uy-ipkv-FA-Ca carb-vit K (WOMEN'S MULTIVITAMIN) 18 mg-400 mcg- 500 mg-50 mcg tab (20 sources) Start: 02-15-2018 ml-kf-achk-FA-Ca carb-vit K (WOMEN'S MULTIVITAMIN) 18 mg-400 mcg- 500 mg-50 mcg tab Women's Multivitamin 18 mg-400 mcg- 500 mg-50 mcg tablet 02/15/2018 Active Start: 02-15-2018 dg-cb-adyn-FA- Ca carb-vit K (WOMEN'S MULTIVITAMIN) 18 mg-400 [...] # 120 cap(s), 3 Refill(s), Pharmacy: [facility], 172.7, cm, 05/31/21 14:30:00 EDT, Height, [...] Comment on above: Take 1 capsule by [facility] as directed for 28 days. One QHS x 1 week, BID x 1 week, TID x 1 week, then one in the AM, one in the afternoon, and two in the PM x 1 week. Take 1 capsule by [facility] twice daily for 120 days. Take 50 mg by mouth twice daily. Take 1 capsule by [facility] three times daily for 120 days. Take 75 mg by mouth twice daily. Take 1 capsule by [facility] three times a day for 120 days. spironolactone 25 mg oral tablet (20 sources) Aldosterone Antagonist Start: 05-29-2025 take 2 tablets by mouth twice daily in the morning, then take 1 tablet by mouth in the evening Start: 06-26-2023 take 2 tablets by [facility] in the morning, then take 1 tablet by mouth in the morning spironolactone 25 mg oral tablet See Instructions, Take 2 tabs in am and 1 tab in am, # 270 tab(s), 3 Refill(s), [facility]: [id number], 172.7, cm, 06/26/23 13:06:00 EDT, Height, kg, 06/26/23 13:06:00 EDT, Dosing Weight Start Date: 06/26/23 Status: Ordered Start: 09-16-2021 spironolactone 25 mg oral tablet Dose : 25 mg = 1 tab(s), Oral, BID, # 60 tab(s), 5 Refill(s), Pharmacy: [facility] [facility], 172.7, cm, 09/16/21 11:26:00 EST, Height, kg, 09/16/21 11:26:00 EST, Dosing Weight Start Date: 09/16/21 Status: Ordered take 1 tablet by [facility] three times daily spironolactone (ALDACTONE) 25 [...] Comment on above: Take 1 tablet by [facility] daily at bedtime. valbenazine 80 mg [...] Start: 12-17-2020 take 1 capsule by [facility] once daily ziprasidone (GEODON) 60 mg capsule Take 60 mg by mouth once daily. 0 12/17/2020 Active Start: 06-01-2020 take 1 capsule by [facility] three times daily ziprasidone (GEODON) 20 mg capsule Take 20 mg by mouth three times daily. 06/01/2020 Active Start: 06-01-2020 take 1 capsule by mo [facility] twice daily at mealtime ziprasidone (GEODON) 20 [...] Comment on above: Take 1 tablet by [facility] once daily. diclofenac sodium 0.01 mg/mg [...] four times daily. Take 1 tablet by [facility] four times daily for 30 days. Take 1 tablet by [facility] four times daily for 120 days. 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)] Onset: [...] current use of drug therapy; Translations: [Other skilled nursing (current) drug therapy] Onset: 09-24-2018 03-29-2022 Episodic Other aftercare (1 source) Other rn long term care (current) drug therapy; Translations: [Other rn long term care (current) drug therapy] Onset: 03-29-2022 Episodic Other [...] Facility Orthopedic Visit Reporton Orthopedic Visit Report [facility] [address] [place] [address] [address] [place] [address] OFFICE VISIT Date of Service: 09/02/25 MR#: [id number] Acct: [id number] Name: SHEILA CROWE Rep #: [id number] : 1980 Provider: Dr. Mahad light MD Age/Sex: 44/F Location: [facility] Status: Signed Intake Vital Signs 07/22/25 12:51 [...] you fallen in the past year?: Yes [facility] History Wears glasses Depression Anxiety Bipolar disorder Arthritis Restless legs Former smoker Impingement of left shoulder Left rotator cuff tear Left shoulder pain Surgical History History of wisdom tooth extraction History of tonsillectomy Social History Smoking Status: Former smoker HPI LEFT SHOULDER Details: This documentation accurately reflects the service provided and the decisions made by me, Dr. Mahad Saleh MD 09/02/25 0820. Part of today???s visit was documented by [...] Performing Provider: Mahad Saleh MD Performing Location: [facility] Administered by: Mahad Saleh MD on 09/02/25 13:15 Dose Route Admin Location Dispensed Lot Number Expiration Date Package NDC NDC Carrier Operator 40 mg intra-articular left shoulder 1 mL [id number] 10/30/26 57500-510-23 [id number] [address] [facility] Coding Level of Care Code Attention Teena Diagnoses Left rotator cuff tear M75.102 CPT Codes bench patternmaker metal.sub (22895) Comment 00567 and CPT inject major joint Assessment and [...] weeks. Pros (more content not included)... Normal [facility] Re-Evaluation - PT (1)on Re-Evaluation - PT (1) [facility] Physical Therapy [facility] [address] [place] [address] [address] [place] [address] / REEVALUATION / MEDICARE RECERTIFICATION PHYSICAL THERAPY MR#: [id number] Acct: [id number] Name: SHEILA CROWE Rep #: [id number] : 1980 44 From: Nurys Mckoy MPT [...] do not hesitate to contact me at [phone] by phone or if you have questions or concerns regarding this new plan of care! Sincerely, Nurys Ean, MPT 08/26/25 1330 CC: Dr. Mahad Saleh MD; Dr. Torres Yao MD Signed For Medicare only, by signing this I certify the plan of care. Physicians Signature Date [facility] 08-11-2025 [facility] Office Visit ([place] ) CROWESHEILA WANG ([id number]) 1980 F Date Time Provider Department 08/11/25 [...] EXPOSED ROOT (ELEVATION AND/OR FORCEPS REMOVAL) 1995 [place] teeth TONSILLECTOMY PRIMARY/SECONDARY Tonsillectomy FAMILY HISTORY Problem [...] affected area. ketoconazole (NIZORAL) 2 % shampoo id-ap-xatg-FA-Ca carb-vit K (WOMEN'S MULTIVITAMIN) 18 mg-400 mcg- [...] No v (more content not included)... Normal [facility] Orthopedic Visit Reporton Orthopedic Visit Report [facility] [address] [facility] [address] [place] [address] OFFICE VISIT Date of Service: 07/22/25 MR#: [id number] Acct: [id number] Name: SHEILA CROWE Rep #: [id number] : 1980 Provider: Dr. Mahad light MD Age/Sex: 44/F Location: [facility] Status: Signed Intake Vital Signs 06/11/25 05:57 [...] stiffness and muscle atrophy. Phase 2: Gradual Confucianist of Motion (Weeks 2-6) Gradually discontinue the sling starting 2 weeks after surgery. Active Assisted Range of Motion: Gradually increasing the range of motion with assistance from the unaffected arm or a physical therapist is introduced. Phase 3: Gradual Confucianist of Strength (Weeks 6-12) Light Strengthening: Isometrics [...] are inco (more content not included)... Normal [facility] Inital Evaluation (1) - PTon 06-25-2025 Inital Evaluation (1) - PT [facility] Physical Therapy [facility] [address] [place] [address] [address] [place] [address] / REHABILITATION SERVICES INITIAL EVALUATION MR#: [id number] Acct: [id number] Name: SHEILA CROWE Rep #: [id number] : 1980 44 From: Nurys AMADO Referring Dr.: Dr. Mahad Saleh MD Status: R EG RCR Insurance: MEDICARE PART A B [facility] Patient's Visit Information Visit Information Visit [...] to be FAXED BACK to us at [phone] for Medicare purposes. For Medicare only, by signing this I certify the plan of care. Please let me know if there are questions or concerns regarding this plan of care. Physician Signature: Date:__ 06/25/25 1259 CC: Dr. Mahad Saleh MD; Dr. Torres Yao MD Signed Normal [facility] Orthopedic Visit Reporton Orthopedic Visit Report [facility] [address] [place] [address] OFFICE VISIT Date of Service: 06/24/25 MR#: [id number] Acct: [id number] Name: SHEILA CROWE Rep #: [id number] : 1980 Provider: Dr. Mahad light MD Age/Sex: 44/F Location: [facility] Status: Signed Intake Vital Signs 05/22/25 10:24 [...] a bit anxious. Narcotic counselling again, checked DEVELOPMENT TEAM LEAD. will prescribe short course at night only [...] stiffness and muscle atrophy. Phase 2: Gradual Confucianist of Motion (Weeks 2-6) Gradually discontinue the sling starting 2 weeks after surgery. Active Assisted Range of Motion: Gradually increasing the range of motion with assistance from the unaffected arm or a physical therapist is introduced. Phase 3: Gradual Confucianist of Strength (Weeks 6-12) Light Strengthening: Isometrics and gentle resistance exercises are started to strengthen the rotator cuff muscles. Progression of Exercises: Exercises progress from simple movements like scapular retraction to more complex ones like lateral elevation and external rotation. Phase 4: Functional Exercises and Return to Acti (more content not included)... Normal [facility] Orthopedic Visit Reporton Orthopedic Visit Report [facility] [place] [address] OFFICE VISIT Date of Service: 06/13/25 MR#: [id number] Acct: [id number] Name: SHEILA CROWE Rep #: [id number] : 1980 Provider: Dr. Mahad light MD Age/Sex: 44/F Location: [facility] Status: Signed Intake Vital Signs 05/22/25 10:24 [...] the decisions made by me, Dr. Mahad Salhe MD 06/13/25 1125. Part of today???s visit [...] stiffness and muscle atrophy. Phase 2: Gradual Confucianist of Motion (Weeks 2-6) Gradually discontinue the sling starting 2 weeks after surgery. Active Assisted Range of Motion: Gradually increasing the range of motion with assistance from the unaffected arm or a physical therapist is introduced. Phase 3: Gradual Confucianist of Strength (Weeks 6-12) Light Strengthening: Isometrics [...] or r (more content not included)... Normal [facility] Discharge Instructionon 05-30 Discharge Instruction [facility] Medical Records Department [address] [place] [address] Instructions for Home/Discharge Instructions 06/11/25 0922 MR#: [id number] Acct: [id number] Name: SHEILA CROWE Rep #: [id number] : 1980 44 From: Mahad Saleh MD PCP: Dr. Torres Yao MD Status:REG [facility] [place]charge Instructions Diet Discharge Diet: No restrictions [...] Instructions Patient Instructions: Shoulder Arthroscopy Print Language: Tajik Discharge Orders/Prescriptions Prescriptions: New oxycodone-acetaminophe n [Endocet] [...] MD CC: Dr. Torres Yao MD Signed [facility] MR/POSTOP.[facility] 06-11-2025 MR/POSTOP.[facility] Medical Records Department [address] [place] [address] Anesthesia Postop Eval I 06/11/25 1033 MR#: [id number] Acct: [id number] Name: SHEILA CROWE Rep #: [id number] : 1980 44 From: Ayaz Pollard CRNA PCP: Dr. Torres Yao MD Status:REG SDC Y Race: C Location: [place] [address] Anesthesia: Postop Eval I Current Vital Signs [...] completed: Yes 06/11/25 1033 Date Ayaz Pollard MEDICAL STENOGRAPHER Cosigner Signature: Date CC: Signed Normal [facility] MR/[id number] 06-11-2025 [facility] Medical Records Department [address] [place] [address] Anesthesia Postop Eval II 06/11/25 1533 MR#: [id number] Acct: [id number] Name: SHEILA CROWE Rep #: [id number] : 1980 44 From: Bianka Vega CRNA PCP: Dr. Torres Yao MD Status:[facility] Y Race: C [place] [facility] Anesthesia Postop Eval I Sum Postop Eval Completion status Anesthesia document: Postop Eval 1 completed: Yes Anesthesia Postop Eval I Summary Anesthesia Postop Eval I Summary: Anesthesia Postop Eval I: Assessment Summary Airway patent Yes 06/11/25 10:33 MEDICAL STENOGRAPHER.SURYALOU Spontaneous unlabored Yes 06/11/25 10:33 MEDICAL STENOGRAPHER.JBLOU respirations Mental status Awake,Calm 06/11/25 10:33 MEDICAL STENOGRAPHER.JBLOU nausea No 06/11/25 10:33 MEDICAL STENOGRAPHER.JBLOU Vomiting No 06/11/25 10:33 MEDICAL STENOGRAPHER.JBLOU Anesthesia Postop Eval I: Fluid Summary Crystalloid volume administer 1,200 06/11/25 10:33 MEDICAL STENOGRAPHER.JBLOU (ml) Colloids volume administered ( ml) Blood Product volume administered (ml) Total IV fluid infused 1,200 06/11/25 10:33 MEDICAL STENOGRAPHER.JBLOU Anesthesia Postop Eval I: Summary Notes Anesthesia Complication No 06/11/25 10:33 MEDICAL STENOGRAPHER.JBLOU Anesthesia Complication Comment: Post-operative progress note Anesthesia: Postop Eval II Evaluation Mental status: Awake Pain Level: 3 nausea: No Vomiting: No 06/11/25 1534 Date Bianka Vega MEDICAL STENOGRAPHER Cosigner Signature: Date CC: Signed Normal [facility] Operative Reporton 5 Operative Report [facility] Medical Records Department [address] [place] [address] Operative Report 06/11/25923 MR#: [id number] Acct: [id number] Name: SHEILA CROWE Rep #: [id number] : 1980 44 From: Mahad Saleh MD PCP: Dr. Torres Yao MD Status:[facility] Location: [place] [address] Problems Associated Problem List Diagnoses (1) Impingement of left shoulder: (2) Left rotator cuff tear: (3) Left shoulder pain: Procedures Musculoskeletal 20xxx-29xxx: Other Procedure See Report Operative Report (Standard) Operative Information Date of Procedure: 06/11/25 Pre-Operative Diagnosis: L shoulder impingement, rotator cuff tear Post-Operative Diagnosis: same Surgery/Procedure Performed: L shoulder arthroscopy, SAD, RC repair, arthrex cuffmend graft automotive designer: Yes Air Tool Operator: shane Tasks completed by first aid attendant: Retracting Additional account assistant?: No Type of Anesthesia: Block,Regional and General [...] sutures that were stable and solid. The construction rep was removed. I then used the fiber [...] condition. Al (more content not included)... Normal [facility] ,Urineon 06-11-2025 Beta HCG ( test) Ql (U) Negative Normal [facility] Comment on above: Result Comment: Very dilute urine specimens, as indicated by a low specific gravity, may not contain customer solutions representative levels of hCG. If is still suspected, a first morning urine specimen should be collected 48 hours later and tested. Performed By: #### L 400.7600 #### [facility] Laboratory [facility] [place], [address] Urine testOrdered By: Rocael Moctezuma on 06-11-2025 HCG ( test) Ql (U) Negative [facility] Comment on above: Very dilute urine sp ecimens, as indicated by a low specificgravity, may not contain customer solutions representative levels of hCG. If is still suspected, a first morning urinespecimen should be collected 48 hours later and tested. Orthopedic Visit Reporton Orthopedic Visit Report [facility] [address] [place] [address] [address] [place] [address] OFFICE VISIT Date of Service: 05/22/25 MR#: [id number] Acct: [id number] Name: SHEILA CROEW Rep #: [id number] : 1980 Provider: Dr. Mahad light MD Age/Sex: 44/F Location: [facility] Status: Signed Intake Vital Signs 04/21/25 11:00 [...] fallen in the past year?: No [facility] Medical History (Updated 05/22/25 @ 10:27 by [...] Psychologic: Yes reasonable and appropriate Supplemental Info [facility] Imaging Services [facility] [place], [place] [address] Upper Ext Joint Only(Routine) MR#: [id number] Acct: [id number] Name: SHEILA CROWE Rep #: [id number] : 1980 F 44 From: Tomer Arauz MD PCP: Dr. Torres Yao MD Status: [facility] CLI Study: Upper Ext Joint Only(Routine) Date of Exam: 05/20/25 Exam# [id number] Ordering Dr: Mahad Saleh MD PROCEDURE: UPPER [...] extends in (more content not included)... Normal [facility] Magnetic resonance imaging r eportOrdered By: Tomer Arauz on 05-21-2025 Study report [facility] Imaging Services [address] [place] [address] Upper Ext Joint Only(Routine) MR#: [id number] Acct: [id number] Name: SHEILA CROWE Rep #: [id number] : 1980 F 44 From: Adriana Arauz MD PCP: Dr. Torres Yao MD Status: [facility] Study:Upper Ext Joint Only(Routine) Date of Exam: 05/20/25 Exam# [id number] Ordering Dr: Mahad Saleh MD PROCEDURE: UPPER [...] into the subacromial subdeltoid bursa. Reading [facility] CC: Dr. Mahad Saleh MD; Dr. Torres Yao MD ~ Trainman: Signed [facility] Upper Ext Joint Only(Routine )on 05-20-2025 Upper Ext Joint Only(Routine) [facility] Imaging Services [address] [place] [address]011 Upper Ext Joint Only(Routine) MR#: [id number] Acct: [id number] Name: SHEILA CROWE Rep #: [id number] : 1980 F 44 From: Tomer Arauz MD PCP: Dr. Torres Yao MD Status: REG CLI Study: Upper Ext Joint Only(Routine) Date of Exam: 0 05/20/25 Exam# [id number] Ordering Dr: Mahad Saleh MD PROCEDURE: UPPER [...] Mahad Saleh MD; Dr. Torres Yao MD Trainman: Signed Normal [facility] CNOVon 05-16-2025 CNOV Office Visit (FAMPWS ) SHEILA CROWE ([id number]) 1980 F Date Time Provider Department 05/16/25 1:40 PM [facility] During your visit today, we recorded the following information about you: Pulse Blood pressure Weight 77/minute 120/72 84.8 kg Torres Yao MD 05/16/2025 1:57 PM Addendum [facility] - Insurance Therapy/Counseling [facility] [address] [place] [address] [facility] [address] [place] [address] [address] [facility] [address] [facility] [place] [address] [facility] [address] [facility] [address] [place] [address] [facility] [address] [place] [address] [facility] [employer] [address] [place] [address] [facility] [address] [place] [address] Torres Yao MD 05/16/2025 1:58 PM Signed [...] affected area. ketoconazole (NIZORAL) 2 % shampoo dn-ic-qrvx-FA-Ca carb-vit K (WOMEN'S MULTIVITAMIN) 18 mg-400 mcg- [...] EXPOSED ROOT (ELEVATION AND/OR FORCEPS REMOVAL) 1995 [place] teeth TONSILLECTOMY PRIMARY/SECONDARY Tonsillectomy FAMILY HISTORY Problem Relation Age of Onset Rheumatologic disease Mother other (stiff persons disease) Father other (autoimmune disorder) Father Diabetes Br (more content not included)... Normal [facility] CNOVon 05-15-2025 CNOV Office Visit ([place] ) SHEILA CROWE ([id number]) 1980 F Date Time Provider Department 05/15/25 11:30 AM FREEMAN SARABIA During your visit today, we recorded the following information about you: Pulse Respiration Blood pressure 74/minute 16/minute 132/83 Freeman Sarabia PA-C 05/15/2025 12:06 PM Signed This note was created using PhishMeter. Subjective Sheila Crowe is a 44 year [...] used: daily Benefit: helps Physical Therapy: 01/2025 [facility] Last UDS: not on narcotics Last injection: 09/17/24 - bilateral subacromial bursa OARRS reviewed At the present time, the patient reports benefit with her present analgesic therapy. She denies any adverse effects. Since her previous visit, she denies any hospitalizations or ER visits. She is scheduled for a left shoulder MRI on Monday that was ordered by Dr. Saleh at [facility] 03/14/2025 05/15/2025 INTAKE PAIN ASSESSMENT [...] EXPOSED ROOT (ELEVATION AND/OR FORCEPS REMOVAL) 1995 [place] teeth TONSILLECTOMY PRIMARY/SECONDARY Tonsillectomy Social History Tobacco [...] light touc (more content not included)... [facility] Office Visit (FAMPWS ) SHEILA CROWE ([id number]) 1980 F Date Time Provider Department 05/05/25 12:40 PM [facility] During your visit today, we recorded the following information about you: Temperature Pulse Blood pressure Weight 97.6 degrees 67/minute 110/66 88.9 kg Ellen Rene APRN.DARKROOM WORKER 05/05/2025 1:09 PM Signed This is a [...] prescribed by a pain management provider at [facility]. - Uses TENS unit and [...] EXPOSED ROOT (ELEVATION AND/OR FORCEPS REMOVAL) 1995 [place] teeth TONSILLECTOMY PRIMARY/SECONDARY Tonsillectomy ALLERGIES Clindamycin, Levaquin [...] % combo pack Apply to affected area. oz-ts-moix-FA-Ca carb-vit K (WOMEN'S MULTIVITAMIN) 18 mg-400 mcg- [...] Use Vapin (more content not included)... Normal [facility] PELVIS BLADDERon 05-05-20 25 US [...] calculi, abnormal bladder wall mass or trabeculation Trainman: [facility] Transcribe Date/Time: May 05 2025 3:29P Dictated by : DEE DEE TORRES MD This examination was interpreted and the report reviewed and electronically signed by: DEE DEE TORRES MD on May 05 2025 3:31PM EST [id number] Normal [facility] US Urinary bladderon 025 * * *Final [...] calculi, abnormal bladder wall mass or trabeculation Trainman: [facility] Transcribe Date/Time: May 05 2025 3:29P Dictated by : DEE DEE TORRES MD This examination was interpreted and the report reviewed and electronically signed by: DEE DEE TORRES MD on May 05 2025 3:31PM EST [facility] Provider, [facility] - 05/05/2025 * * *Final Report* * [...] calculi, abnormal bladder wall mass or trabeculation Trainman: TAINA Transcribe Date/Time: May 05 2025 3:29P Dictated by : DEE DEE TORRES MD This examination was interpreted and the report reviewed and electronically signed by: DEE DEE TORRES MD on May 05 2025 3:31PM EST [facility] Radiology Study observation (narrative) [facility] US Urinary bladderOrdered By : [facility] Provider on 05-05-2025 [facility] Urinalysis complete panel (U )on 05-05-2025 Bacteria LM.HPF (Urine sed) [#/Area] Negative Negative /HPF [facility] Bilirubin Ql (U) Negative Negative [facility] Clarity (Unsp spec) Clear Clear [facility] Color (U) Yellow Yellow [facility] Epithelial cells LM.HPF (Urine sed) [#/Area] None Seen /HPF [facility] Glucose Test strip (U) [Mass/Vol] Negative Negative [facility] Hemoglobin Ql (U) Negative Negative [facility] Hyaline casts (Urine sed) [#/Area] 0 /[LPF] 0 /LPF [facility] Ketones Ql (U) Negative Negative [facility] Leukocyte esterase Test strip Ql (U) Negative Negative [facility] Nitrite Ql (U) Negative Negative [facility] pH (U) 6.5 [pH] NINF - 8.5 [facility] Protein (U) [Mass/Vol] Negative Negative [facility] RBC LM.HPF (Urine sed) [#/Area] 0-2 /HPF 0-2 /HPF [facility] Specific gravity (U) [Rel density] 1.011 1.005 - 1.030 [facility] Urobilinogen Ql (U) 0.2 EU/dL 0.2-1.0 EU/dL [facility] WBC LM.HPF (Urine sed) [#/Area] 0-5 /HPF 0-5 /HPF [facility] This test was developed and its performance characteristics determined by [facility]'s Theo Dugan [facility] [place] ([facility]). It has not been cleared or approved by the FDA. [facility] is regulated under CLIA as qualified to perform high-complexity testing. This test is used for clinical purposes. It should not be regarded as investigational or for research. [facility] Bacteria LM.HPF (Urine sed) [#/Area] Negative Normal Negative [facility] Comment on above: Order Comment: Speci men Type: URINE SPECIMENOrdering Facility: [facility] Address: [address] [place] [address] Performed By: #### 2 4356-8 ####[facility] LABCLIA [id number] [place] [address] [place] Bilirubin Ql (U) Negative Normal Negative [facility] Comment on above: Order Comment: Speci men Type: URINE SPECIMENOrdering Facility: [facility] Address: [address] [place] [address] Performed By: #### 2 4356-8 ####[facility] LABCLIA [id number] [place] [address] [place] Clarity (Unsp spec) Clear Normal Clear [facility] Comment on above: Order Comment: Speci men Type: URINE SPECIMENOrdering Facility: [facility] Address: [address] [place] [address] Performed By: #### 2 4356-8 ####[facility] LABCLIA [id number] [place] [address] [place] Color (U) Yellow Normal Yellow [facility] Comment on above: Order Comment: Speci men Type: URINE SPECIMENOrdering Facility: [facility] Address: [address] [place] [address] Performed By: #### 2 4356-8 ####[facility] LABCLIA [id number] [place] [id number] [place] Epithelial cells LM.HPF (Urine sed) [#/Area] None Seen Normal [facility] Comment on above: Order Comment: Speci men Type: URINE SPECIMENOrdering Facility: [facility] Address: [address] [place] [address] Performed By: #### 2 4356-8 ####[facility] LABCLIA [id number] [address] [place] [address] [place] Glucose Test strip (U) [Mass/Vol] Negative Normal Negative [facility] Comment on above: Order Comment: Speci men Type: URINE SPECIMENOrdering Facility: [facility] Address: [address] [place] [address] Performed By: #### 2 4356-8 ####[facility] LABCLIA [id number] [address], [facility] [place] Hemoglobin Ql (U) Negative Normal Negative [facility] Comment on above: Order Comment: Speci men Type: URINE SPECIMENOrdering Facility: [facility] Address: [address] [place] [address] Performed By: #### 2 4356-8 ####[facility] LABCLIA [id number] [address], [place] [address] [place] Hyaline casts (Urine sed) [#/Area] 0 /[LPF] Normal 0 /LPF [facility] Comment on above: Order Comment: Speci men Type: URINE SPECIMENOrdering Facility: [facility] Address: [address] [place] [address] Performed By: #### 2 4356-8 ####[facility] LABCLIA [id number] [address], [facility] [place] Ketones Ql (U) Negative Normal Negative [facility] Comment on above: Order Comment: Speci men Type: URINE SPECIMENOrdering Facility: [facility] Address: [address] [place] [address] Performed By: #### 2 4356-8 ####[facility] LABCLIA [id number] [address], [facility]95 [place] Leukocyte esterase Test strip Ql (U) Negative Normal Negative [facility] Comment on above: Order Comment: Speci men Type: URINE SPECIMENOrdering Facility: [facility] Address: [address] [place] [address] Performed By: #### 2 4356-8 ####[facility] LABCLIA [id number] [place] [address] [place] Nitrite Ql (U) Negative Normal Negative [facility] Comment on above: Order Comment: Speci men Type: URINE SPECIMENOrdering Facility: [facility] Address: [address] [place] [address] Performed By: #### 2 4356-8 ####[facility] LABCLIA [id number] [place] [address] [place] pH (U) 6.5 [pH] Normal <8.5 [facility] Comment on above: Order Comment: Speci men Type: URINE SPECIMENOrdering Facility: [facility] Address: [address] [place] [address] Performed By: #### 2 4356-8 ####[facility] LABIA [id number] [place] [address] [place] Protein (U) [Mass/Vol] Negative Normal Negative [facility] Comment on above: Order Comment: Speci men Type: URINE SPECIMENOrdering Facility: [facility] Address: [address] [place] [address] Performed By: #### 2 4356-8 ####[facility] LABIA [id number] [place] [address] [place] RBC LM.HPF (Urine sed) [#/Area] 0-2 /HPF Normal 0-2 /HPF [facility] Comment on above: Order Comment: Speci men Type: URINE SPECIMENOrdering Facility: [facility] Address: [address] [place] [address] Performed By: #### 2 4356-8 ####[facility] LABCLIA [id number] [place] [address] [place] Specific gravity (U) [Rel density] 1.011 Normal 1.005-1.030 [facility] Comment on above: Order Comment: Speci men Type: URINE SPECIMENOrdering Facility: [facility] Address: [address] [place] [address] Performed By: #### 2 4356-8 ####[facility] LABCLIA [id number] [place] [id number] [place] Urobilinogen Ql (U) 0.2 EU/dL Normal 0.2-1.0 EU/dL Cl [facility] Comment on above: Order Comment: Speci men Type: URINE SPECIMENOrdering Facility: [facility] Address: [address] [place] [address] Performed By: #### 2 4356-8 ####[facility] LABIA [id number] [place] [address] [place] WBC LM.HPF (Urine sed) [#/Area] 0-5 /HPF Normal 0-5 /HPF [facility] Comment on above: Order Comment: Speci men Type: URINE SPECIMENOrdering Facility: [facility] Address: [address] [place] [address] Performed By: #### 2 4356-8 ####[facility]ITAL[facility] [id number] [place] [address] [place] Orthopedic Visit Reporton Orthopedic Visit Report [facility] [address] [place] [address] OFFICE VISIT Date of Service: 04/21/25 MR#: [id number] Acct: [id number] Name: SHEILA CROWE Rep #: [id number] : 1980 Provider: Dr. Mahad light MD Age/Sex: 44/F Location: [facility] Status: Signed Intake Vital Signs 12/23/19 11:43 [...] Did do 16 PT visits through the [facility]. Hurts anteriorly. worse to lift or in [...] physical therapy with 16 visits through the [facility] as well as a cortisone in [...] blood flow before exercises. 4. Anti-Inflammatory Medications: Oflg-wxo-tbqhmio medications like ibuprofen or naproxen can help reduce pain and inflammation in the tendon. 5. Corticosteroid Injections: If the pain is more severe, a steroid injection can reduce inflammation in the shoulder and provide relief for a longer (more content not included)... Normal [facility] Shoulder min 2 Viewson 04-21 Shoulder min 2 Views [facility] Imaging Services [address] [place] [address] Shoulder min 2 Views MR#: [id number] Acct: [id number] Name: SHEILA CROWE Rep #: [id number] : 1980 F 44 From: José Manuel Villalta PCP: Dr. Torres Yao MD Status: DEP AMB Study: Shoulder min 2 Views Date of Exam: 04/21/25 Exam# [id number] Ordering Dr: Mahad Saleh MD PROCEDURE: SHOULDER [...] fracture or dislocation is seen. Reading Location: [place] [address] CC: Dr. Mahad Saleh MD; Dr. Torres Yao MD Trainman: Signed Normal [facility] SHE[facility]OW[facility] ([id number]) 1980 F Date Time Provider Department 04/15/25 [...] PM Signed Referral fax confirmation showing at 6887. Allergies As of Date: 04/15/2025 Noted Allergy [...] - ketoconazole (NIZORAL) 2 % shampoo - av-du-mijn-FA-Ca carb-vit K (WOMEN'S MULTIVITAMIN) 18 mg-400 mcg- [...] Osteoarthritis of knee [M17.9] 03/18/2020 04/12/2023 Other rn long term care (current) drug therapy [Z79.899]09/24/2018 Sacroiliitis (HCC) [M46.1] 03/02/2022 Subacromial bursitis of both shoulders [M75.51,*11/30/2022 Primary osteoarthritis of both knees [M17.0] 11/30/2022 History of diabetes mellitus [Z86.39] 10/13/2023 Neuropathy involving both lower extremities [G5*02/07/2024 Acute midline low back pain without sciatica [M*06/03/2024 Bilateral shoulder region arthritis [M19.011, M*11/25/2024 Encounter Status:Closed by BERTHA FLYNN on 04/15/25 [facility] 03-14-2025 CNOV Office Visit (FAMPWS ) CROWESHEILA ([id number]) 1980 F Date Time Provider Department 03/14/25 [...] due to psychiatrist's 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 - Next psychology appointment in [...] 120 days. ketoconazole (NIZORAL) 2 % shampoo hq-cz-oxww-FA-Ca carb-vit K (WOMEN'S MULTIVITAMIN) 18 mg-400 mcg- [...] diclofenac sodium-mentho (more content not included)... Normal [facility] SCREENING W TOMOon 03-14 [facility] SCREENING W [facility] * * *Final Report* * * DATE OF EXAM: Mar 14 2025 12:58PM WRW 0582 - [facility] SCREENING W CHANA / PROCEDURE REASON: Encounter for screening mammogram for breast cancer * * * * Physician Interpretation * * * * RESULT: [place] [address] [place] [address] #[id number] - [facility] SCREENING W CHANA HISTORY: 44 [...] tissue. Interpreting Radiologist: Criselda Sanches M.D. FACR, [facility] Electronically signed on: 03/17/2025 Trainman: ADRIAN Transcribe Date/Time: Mar 14 2025 12:49P Dictated by: CRISELDA SANCHES MD This examination was interpreted and the report reviewed and electronically signed by: CRISELDA SANCHES MD on Mar 17 2025 3:28PM EST [id number] Normal [facility] CNOVon 02-14-2025 CNOV Office Visit ([place] ) SHEILA CROWE ([id number]) 1980 F Date Time Provider Department 02/14/25 [...] PM Signed This note was created using Antennariter. Subjective Sheila Crowe is a 44 year [...] daily Benefit: helps Physical Therapy: 01/2025 - [facility] Last UDS: 09/28/23 - not currently [...] EXPOSED ROOT (ELEVATION AND/OR FORCEPS REMOVAL) 1995 [place] teeth TONSILLECTOMY PRIMARY/SECONDARY Tonsillectomy Social History Tobacco [...] normal gai (more content not included)... Normal [facility] CNTHERAPYon 02-04-2025 CNTHERAPY OT/PT/Speech Visit (PTWS) SHEILA CROWE ([id number]) 1980 F Date Time Provider Department 02/04/25 3:45 PM JOVAN PAIGE PTWS Date Time Provider Department Center 02/04/2025 3:45 PM [id number], SEAN PTWS Irwin Rodriguez Reason for Visit: [...] - ketoconazole (NIZORAL) 2 % shampoo - rg-ys-vvbi-FA-Ca carb-vit K (WOMEN'S MULTIVITAMIN) 18 mg-400 mcg- [...] 400 mg by mouth once daily. Normal [facility] CNTHERAPYon 01-17-2025 CNTHERAPY OT/PT/Speech Visit (PTWS) SHEILA CROWE ([id number]) 1980 F Date Time Provider Department 01/17/25 1:00 PM JOANNA REY PTWS Date Time Provider Department Center 01/17/2025 1:00 PM [id number] REY PTWS Irwin Rodriguez Reason for Visit: [...] - ketoconazole (NIZORAL) 2 % shampoo - rp-kh-vsvk-FA-Ca carb-vit K (WOMEN'S MULTIVITAMIN) 18 mg-400 mcg- [...] 400 mg by mouth once daily. Normal [facility] CNTHERAPYon 01-09-2025 CNTHERAPY OT/PT/Speech Visit (PTWS) SHEILA CROWE ([id number]) 1980 F Date Time Provider Department 01/09/25 11:00 AM RACHEL WHITESIDE PTWS Date Time Provider Department Center 01/09/2025 11:00 AM [id number], MARIAH PTRENO Rodriguez Reason for Visit: Physical [...] - ketoconazole (NIZORAL) 2 % shampoo - is-tm-pmxs-FA-Ca carb-vit K (WOMEN'S MULTIVITAMIN) 18 mg-400 mcg- [...] 400 mg by mouth once daily. Normal [facility] CNTHERAPYon 01-06-2025 CNTHERAPY OT/PT/Speech Visit (PTWS) SHEILA ([id number]) 1980 F Date Time Provider Department 01/06/25 12:00 PM JOANNA REY PTWS Date Time Provider Department Center 01/06/2025 12:00 PM [id number] REY PTWS [facility] Reason for Visit: PT Progress Note [...] - ketoconazole (NIZORAL) 2 % shampoo - lu-qy-oypn-FA-Ca carb-vit K (WOMEN'S MULTIVITAMIN) 18 mg-400 mcg- [...] 400 mg by mouth once daily. Normal [facility] CNTHERAPYon 01-03-2025 CNTHERAPY OT/PT/Speech Visit (PTWS) SHEILA CROWE ([id number]) 1980 F Date Time Provider Department 01/03/25 11:00 AM RACHEL WHITESIDE PTWS Date Time Provider Department [place] 01/03/2025 11:00 AM [id number], MARIAH PTWS Irwin Rodriguez Reason for Visit: [...] - ketoconazole (NIZORAL) 2 % shampoo - gg-dt-kkgf-FA-Ca carb-vit K (WOMEN'S MULTIVITAMIN) 18 mg-400 mcg- [...] 400 mg by mouth once daily. Normal [facility] CNTHERAPYon 12-31-2024 CNTHERAPY OT/PT/Speech Visit (PTWS) SHEILA CROWE ([id number]) 1980 F Date Time Provider Department 12/31/24 11:45 AM RACHEL WHITESIDE PTRENO Date Time Provider Department Center 12/31/2024 11:45 AM [id number], MARIAH PTRENO Rodriguez Reason for Visit: Physical [...] - ketoconazole (NIZORAL) 2 % shampoo - sp-ux-pmiy-FA-Ca carb-vit K (WOMEN'S MULTIVITAMIN) 18 mg-400 mcg- [...] 400 mg by mouth once daily. Normal [facility] CNTHERAPYon 12-24-2024 CNTHERAPY OT/PT/Speech Visit (PTWS) SHEILA CROWE ([id number]) 1980 F Date Time Provider Department 12/24/24 2:45 PM RACHEL WHITESIDE PTWS Date Time Provider Department Center 12/24/2024 2:45 PM [id number], MARIAH PTWS Irwin Rodriguez Reason for Visit: [...] - ketoconazole (NIZORAL) 2 % shampoo - wh-bq-ifmp-FA-Ca carb-vit K (WOMEN'S MULTIVITAMIN) 18 mg-400 mcg- [...] 400 mg by mouth once daily. Normal [facility] CNTHERAPYon 12-11-2024 CNTHERAPY OT/PT/Speech Visit (PTWS) SHEILA CROWE ([id number]) 1980 F Date Time Provider Department 12/11/24 2:45 PM RACHEL WHITESIDE PTRENO Date Time Provider Department Center 12/11/2024 2:45 PM [id number], MARIAH PTRENO Rodriguez Reason for Visit: Physical [...] - ketoconazole (NIZORAL) 2 % shampoo - zo-aq-apwr-FA-Ca carb-vit K (WOMEN'S MULTIVITAMIN) 18 mg-400 mcg- [...] Take 400 mg by mouth once daily. Contract Programmer: Addendum Therapy (PT/OT/Speech/Resp) ID: [id number] 12/11/2024 3:19 PM Author: RACHEL WHITESIDE Signed by RACHEL WHITESIDE SMOKE ROOM OPERATOR on 12/11/2024 at 3:20 PM * * * This document replaces document [id number] * * * Document text: Program_ID:[id number] Access Code: NNEMEMQR URL: [email or web address] Date: 12-11-2024 Prepared By: Rachel Whiteside Program [...] 2 sets - 10 reps -- Normal [facility] THERAPY NTon 12-11-2024 THERAPY NT HNO ID: [id number] Author: RACHEL WHITESIDE PTA Service: ? Author Type: Compensation Adjuster Type: Therapy (PT/OT/Speech/Resp) Filed: 12/11/2024 15:20 Note Text: Program_ID:[id number] Access Code: NNEMEMQR URL: [email or web address]/ Date: 12-11-2024 Prepared By: Rachel Whiteside Program [...] - 2 sets - 10 reps Normal [facility] CNTHERAPYon 12-09-2024 CNTHERAPY OT/PT/Speech Visit (PTWS) SHEILA CROWE ([id number]) 1980 F Date Time Provider Department 12/09/24 11:00 AM RACHEL WHITESIDE PTRENO Date Time Provider Department Center 12/09/2024 11:00 AM [id number], MARIAH PTRENO Rodriguez Reason for Visit: Physical [...] - ketoconazole (NIZORAL) 2 % shampoo - it-qv-yfiw-FA-Ca carb-vit K (WOMEN'S MULTIVITAMIN) 18 mg-400 mcg- [...] Take 400 mg by mouth once daily. Contract Programmer: Therapy (PT/OT/Speech/Resp) ID: [id number] 12/09/2024 11:26 AM Author: RACHEL WHITESIDE Signed by RACHEL WHITESIDE SMOKE ROOM OPERATOR on 12/09/2024 at 11:27 AM Document text: Program_ID:[id number] Access Code: [email or web address] URL: [email or web address]/ Date: 12-09-2024 Prepared By: Rachel Whiteside Program [...] 1-2 sets - 10 reps -- Normal [facility] THERAPY NTon 12-09-2024 THERAPY NT HNO ID: [id number] Author: RACHEL WHITESIDE PTA Service: ? Author Type: Compensation Adjuster Type: Therapy (PT/OT/Speech/Resp) Filed: 12/09/2024 11:27 Note Text: Program_ID:[id number] Access Code: NNEMEMQR URL: [email or web address] [employer] Date: 12-09-2024 Prepared By: Rachel Whiteside Program [...] - 1-2 sets - 10 reps Normal [facility] [id number] 11-25-2024 [id number] HNO ID: [id number] Author: JOANNA REY PT Service: ? Author Type: Physical Therapist Type: [id number] Filed: 11/25/2024 19:37 Note Text: [facility] Physical Therapy Plan of Care Certification Patient Name: Sheila Crowe : 1980 [facility] #: [id number] Date: 11/25/2024 To: Freeman Sarabia PA-C From [...] Goals for Episode of Care: established 11/25/24 [place] in home exercise program. Patient will decrease [...] Planned: 16 Planned Treatment Interventions: Therapeutic exercise (57081), Neuromuscular re-education (27964), Manual therapy (20814), Self-detention management (86558), Patient/Family/Caregiv er Education PLAN FOR NEXT VISIT: [...] reviewed the treatment plan for Sheila Crowe, [facility]# [id number] for the period of 11/25/24 -- 01/23/25, established on 11/25/2024. Signature certifies the need for therapy services. Normal [facility] CNTHERAPYon 11-25-2024 CNTHERAPY OT/PT/Speech Visit (PTWS) CROWESHEILA WANG Serv[place] ([id number]) 1980 F Date Time Provider Department 11/25/24 5:15 PM JOANNA REY PTWS Date Time Provider Department Center 11/25/2024 5:15 PM [id number] REY PTWS Irwin Rodriguez Reason for Visit: [...] - ketoconazole (NIZORAL) 2 % shampoo - de-py-ipzp-FA-Ca carb-vit K (WOMEN'S MULTIVITAMIN) 18 mg-400 mcg- [...] Take 400 mg by mouth once daily. Contract Programmer: Therapy (PT/OT/Speech/Resp) ID: [id number] 11/25/2024 6:05 PM Author: JOANNA REY Signed by JOANNA REY PT on 11/25/2024 at 6:05 PM Document text: Program_ID:[id number] Access Code: NNEMEMQR URL: [email or web address] [employer] Date: 11-25-2024 Prepared By: Salvador Hart Program [...] - 10 reps -- Letter Text Normal [facility] THERAPY NTon 11-25-2024 THERAPY NT HNO ID: [id number] Author: JOANNA REY PT Service: ? Author Type: Physical Therapist Type: Therapy (PT/OT/Speech/Resp) Filed: 11/25/2024 18:05 Note Text: Program_ID:[id number] Access Code: [email or web address] URL: [email or web address] [employer] Date: 11-25-2024 Prepared By: Salvador Hart Program [...] - 2 sets - 10 reps Normal [facility] CNOVon 11-22-2024 CNOV Office Visit (PAMMJK ) CROWESHEILA L ([id number]) 1980 F Date Time Provider Department 11/22/24 [...] AM Signed This note was created using Antennariter. Subjective Sheila Crowe is a 44 year [...] EXPOSED ROOT (ELEVATION AND/OR FORCEPS REMOVAL) 1995 [place] teeth TONSILLECTOMY PRIMARY/SECONDARY Tonsillectomy Social History Tobacco [...] 3. Subacromia (more content not included)... Normal [facility] 09-24-2024 [facility] Telephone (NEMO) SHEILA CROWE ([id number]) 1980 F Date Time Provider Department 09/24/24 [facility] During your visit today, we recorded [...] - ketoconazole (NIZORAL) 2 % shampoo - mq-vr-abzc-FA-Ca carb-vit K (WOMEN'S MULTIVITAMIN) 18 mg-400 mcg- [...] Osteoarthritis of knee [M17.9] 03/18/2020 04/12/2023 Other rn long term care (current) drug therapy [Z79.899]09/24/2018 Sacroiliitis (HCC) [M46.1] 03/02/2022 Subacromial bursitis of both shoulders [M75.51,*11/30/2022 Primary osteoarthritis of both knees [M17.0] 11/30/2022 History of diabetes mellitus [Z86.39] 10/13/2023 Neuropathy involving both lower extremities [G5*02/07/2024 Acute midline low back pain without sciatica [M*06/03/2024 Encounter Status:Closed by OG PASTOR on 09/24/24 Normal [facility] ALBUMIN/CREATININE RATIO, UR INEon 09-23-2024 Albumin DL <= 20 mg/L (U) [Mass/Vol] mg/dL Normal [facility] Comment on above: Order Comment: Speci men Type: URINE SPECIMENOrdering Facility: [facility] Address: [address] [place] [address] Performed By: #### U ACR ####[facility] LABCLIA [id number] [place] [address] [place] Albumin/Creatinine (U) [Mass ratio] Normal [facility] Comment on above: Order Comment: Speci men Type: URINE SPECIMENOrdering Facility: [facility] Address: [address] [place] [address] Result Comment: Not calculated Adult Male and Female Nephrotic Criteria: <30 mg/g is considered normal to mildly increased 30-300 mg/g is considered moderately increased >300 mg/g is considered severely increased KDIGO. (2013). KDIGO 2012 Clinical Practice Guideline for the Evaluation and Management of Chronic Kidney Disease. Official Journal of the International Society of Nephrology, 3(1), 1-150. Performed By: #### U ACR ####[facility] LABCLIA [id number] [place] [address] [place] Creatinine (U) [Mass/Vol] 18.0 mg/dL Low 20.0-300.0 [facility] Comment on above: Order Comment: Speci men Type: URINE SPECIMENOrdering Facility: [facility] Address: [address] [place] [address] Performed By: #### U ACR ####[facility] LABCLIA [id number] [place] [address] [place] CBC W Auto Differential pane l (Bld)on 09-23-2024 Basophils (Bld) [#/Vol] 0.03 10*3/uL Normal <0.11 [facility] Comment on above: Order Comment: Speci men Type: BLOOD SPECIMENOrdering Facility: [facility] Address: [address] [place] [address] Performed By: #### 5 7021-8 ####[facility] LABCLIA [id number] [place] [address] [place] Basophils/100 WBC (Bld) 0.5 % Normal [facility] Comment on above: Order Comment: Speci men Type: BLOOD SPECIMENOrdering Facility: [facility] Address: [address] [place] [address] Performed By: #### 5 7021-8 ####[facility] LABCLIA [id number] [place] [address] [place] Differential cell count method Nom (Bld) Auto Normal [facility] Comment on above: Order Comment: Speci men Type: BLOOD SPECIMENOrdering Facility: [facility] Address: [address] [place] [address] Performed By: #### 5 7021-8 ####[facility]CLIA [id number] [place] [address] [place] Eosinophils (Bld) [#/Vol] 0.04 10*3/uL Normal <0.46 [facility] Comment on above: Order Comment: Speci men Type: BLOOD SPECIMENOrdering Facility: [facility] Address: [address] [place] [address] Performed By: #### 5 7021-8 ####[facility]CLIA [id number] [place] [address] [place] Eosinophils/100 WBC (Bld) 0.6 % Normal [facility] Comment on above: Order Comment: Speci men Type: BLOOD SPECIMENOrdering Facility: [facility] Address: [address] [place] [address] Performed By: #### 5 7021-8 ####[facility] LABCLIA [id number] [place] [address] [place] Erythrocyte distribution width (RBC) [Ratio] 12.5 % Normal 11.5-15.0 [facility] Comment on above: Order Comment: Speci men Type: BLOOD SPECIMENOrdering Facility: [facility] Address: [address] [place] [address] Performed By: #### 5 7021-8 ####[facility] LABIA [id number] [place] [address] [place] Hematocrit (Bld) [Volume fraction] 42.4 % Normal 36.0-46.0 [facility] Comment on above: Order Comment: Speci men Type: BLOOD SPECIMENOrdering Facility: [facility] Address: [address] [place] [address] Performed By: #### 5 7021-8 ####[facility] LABIA [id number] [place] [address] [place] Hemoglobin (Bld) [Mass/Vol] 13.9 g/dL Normal 11.5-15.5 [facility] Comment on above: Order Comment: Speci men Type: BLOOD SPECIMENOrdering Facility: [facility] Address: [address] [place] [address] Performed By: #### 5 7021-8 ####[facility] LABIA [id number] [place] [address] [place] Immature granulocytes (Bld) [#/Vol] 10*3/uL Normal <0.10 [facility] Comment on above: Order Comment: Speci men Type: BLOOD SPECIMENOrdering Facility: [facility] Address: [address] [place] [address] Performed By: #### 5 7021-8 ####[facility] LABIA [id number] [place] [address] [place] Immature granulocytes/100 WBC (Bld) 0.3 % Normal [facility] Comment on above: Order Comment: Speci men Type: BLOOD SPECIMENOrdering Facility: [facility] Address: [address] [place] [address] Performed By: #### 5 7021-8 ####[facility] LABCLIA [id number] [place] [address] [place] Lymphocytes (Bld) [#/Vol] 2.31 10*3/uL Normal 1.00-4.00 [facility] Comment on above: Order Comment: Speci men Type: BLOOD SPECIMENOrdering Facility: [facility] Address: [address] [place] [address] Performed By: #### 5 7021-8 ####[facility] LABIA [id number] [place] [address] [place] Lymphocytes/100 WBC (Bld) 35.4 % Normal [facility] Comment on above: Order Comment: Speci men Type: BLOOD SPECIMENOrdering Facility: [facility] Address: [address] [place] [address] Performed By: #### 5 7021-8 ####[facility] LABIA [id number] [place] [address] [place] MCH (RBC) [Entitic mass] 30.6 pg Normal 26.0-34.0 [facility] Comment on above: Order Comment: Speci men Type: BLOOD SPECIMENOrdering Facility: [facility] Address: [address] [place] [address] Performed By: #### 5 7021-8 ####[facility] LABIA [id number] [place] [address] [place] MCHC (RBC) [Mass/Vol] 32.8 g/dL Normal 30.5-36.[address] [facility] Comment on above: Order Comment: Speci men Type: BLOOD SPECIMENOrdering Facility: [facility] Address: [address] [place] [address] Performed By: #### 5 7021-8 ####[facility] LABCLIA [id number] [place] [address] [place] MCV (RBC) [Entitic vol] 93.4 fL Normal 80.0-100.0 [facility] Comment on above: Order Comment: Speci men Type: BLOOD SPECIMENOrdering Facility: [facility] Address: [address] [place] [address] Performed By: #### 5 7021-8 ####[facility] LABIA [id number] [place] [address] [place] Monocytes (Bld) [#/Vol] 0.28 10*3/uL Normal <0.87 [facility] Comment on above: Order Comment: Speci men Type: BLOOD SPECIMENOrdering Facility: [facility] Address: [address] [place] [address] Performed By: #### 5 7021-8 ####[facility] LABIA [id number] [place] [address] [place] Monocytes/100 WBC (Bld) 4.3 % Normal [facility] Comment on above: Order Comment: Speci men Type: BLOOD SPECIMENOrdering Facility: [facility] Address: [address] [place] [address] Performed By: #### 5 7021-8 ####[facility] LABIA [id number] [place] [address] [place] Neutrophils (Bld) [#/Vol] 3.85 10*3/uL Normal 1.45-7.50 [facility] Comment on above: Order Comment: Speci men Type: BLOOD SPECIMENOrdering Facility: [facility] Address: [address] [place] [address] Performed By: #### 5 7021-8 ####[facility] LABIA [id number] [place] [address] [place] Neutrophils/100 WBC (Bld) 58.9 % Normal [facility] Comment on above: Order Comment: Speci men Type: BLOOD SPECIMENOrdering Facility: [facility] Address: [address] [place] [address] Performed By: #### 5 7021-8 ####[facility] LABIA [id number] [place] [address] [place] Nucleated RBC (Bld) [#/Vol] 10*3/uL Normal <0.01 [facility] Comment on above: Order Comment: Speci men Type: BLOOD SPECIMENOrdering Facility: [facility] Address: [address] [place] [address] Performed By: #### 5 7021-8 ####[facility] LABIA [id number] [place] [address] [place] Nucleated RBC/100 WBC (Bld) [Ratio] 0.0 /100 WBC Normal [facility] Comment on above: Order Comment: Speci men Type: BLOOD SPECIMENOrdering Facility: [facility] Address: [address] [place] [address] Performed By: #### 5 7021-8 ####[facility] LABIA [id number] [place] [address] [place] Platelet mean volume (Bld) [Entitic vol] 12.2 fL Normal 9.0-12.7 [facility] Comment on above: Order Comment: Speci men Type: BLOOD SPECIMENOrdering Facility: [facility] Address: [address] [place] [address] Performed By: #### 5 7021-8 ####[facility] LABIA [id number] [place] [address] [place] Platelets (Bld) [#/Vol] 163 10*3/uL Normal 150-400 [facility] Comment on above: Order Comment: Speci men Type: BLOOD SPECIMENOrdering Facility: [facility] Address: [address] [place] [address] Performed By: #### 5 7021-8 ####[facility] LABCLIA [id number] [address] [address] [place] RBC (Bld) [#/Vol] 4.54 10*6/uL Normal 3.90-5.20 [facility] Comment on above: Order Comment: Speci men Type: BLOOD SPECIMENOrdering Facility: [facility] Address: [address] [place] [address] Performed By: #### 5 7021-8 ####[facility] LABIA [id number] [address] [address] [place] WBC (Bld) [#/Vol] 6.53 10*3/uL Normal 3.70-11.00 [facility] Comment on above: Order Comment: Speci men Type: BLOOD SPECIMENOrdering Facility: [facility] Address: [address] [place] [address] Performed By: #### 5 7021-8 ####[facility] [id number] [place] [id number] [place] Comprehensive metabolic 2000 panelon 09-23-2024 Albumin [Mass/Vol] 4.6 g/dL Normal 3.9-4.9 [facility] Comment on above: Order Comment: Speci men Type: BLOOD SPECIMENOrdering Facility: [facility] Address: [address] [place], [place] [address] Performed By: #### 1 9123-9, 3016-3, 91768-2, LIPNF ####[facility] [id number] [place] [id number] [place] ALP [Catalytic activity/Vol] 59 U/L Normal 34-123 [facility] Comment on above: Order Comment: Speci men Type: BLOOD SPECIMENOrdering Facility: [facility] Address: [address] [place] [address] Performed By: #### 1 9123-9, 3016-3, 68825-5, LIPNF ####[facility] LABCLIA [id number] [address] [address] [place] ALT [Catalytic activity/Vol] 18 U/L Normal 7-38 [facility] Comment on above: Order Comment: Speci men Type: BLOOD SPECIMENOrdering Facility: [facility] Address: [address] [place] [address] Performed By: #### 1 9123-9, 3015-3, 90022-9, LIPNF ####[facility] LABCLIA [id number] [address] [address] [place] Anion gap [Moles/Vol] 11 mmol/L Normal 8-[address] [facility] Comment on above: Order Comment: Speci men Type: BLOOD SPECIMENOrdering Facility: [facility] Address: [address] [place] [address] Performed By: #### 1 9123-9, 3015-3, 28633-5, LIPNF ####[facility] LABIA [id number] [place] [id number] [place] AST [Catalytic activity/Vol] 17 U/L Normal 13-35 [facility] Comment on above: Order Comment: Speci men Type: BLOOD SPECIMENOrdering Facility: [facility] Address: [address] [place] [address] Performed By: #### 1 9123-9, 3015-3, 63477-9, LIPNF ####[facility] LABCLIA [id number] [address] [address] [place] Bilirubin [Mass/Vol] 0.2 mg/dL Normal 0.2-1.3 [facility] Comment on above: Order Comment: Speci men Type: BLOOD SPECIMENOrdering Facility: [facility] Address: [address] [place] [address] Performed By: #### 1 9123-9, 6-3, 95657-4, LIPNF ####[facility] LABCLIA [id number] [address] [address] [place] Calcium [Mass/Vol] 9.3 mg/dL Normal 8.5-10.2 [facility] Comment on above: Order Comment: Speci men Type: BLOOD SPECIMENOrdering Facility: [facility] Address: [address] [place] [address] Performed By: #### 1 9123-9, 3016-3, 70663-5, LIPNF ####[facility] LABCLIA [id number] [place] [address] [place] Chloride [Moles/Vol] 106 mmol/L Normal 98-107 [facility] Comment on above: Order Comment: Speci men Type: BLOOD SPECIMENOrdering Facility: [facility] Address: [address] [place] [address] Performed By: #### 1 9123-9, 3015-3, 24545-2, LIPNF ####[facility] LABCLIA [id number] [place] [address] [place] CO2 [Moles/Vol] 21 mmol/L Low 22-30 [facility] Comment on above: Order Comment: Speci men Type: BLOOD SPECIMENOrdering Facility: [facility] Address: [address] [place] [address] Performed By: #### 1 9123-9, 3015-3, 59418-7, LIPNF ####[facility] LABCLIA [id number] [place] [id number] [place] Creatinine [Mass/Vol] 0.78 mg/dL Normal 0.58-0.[address] [facility] Comment on above: Order Comment: Speci men Type: BLOOD SPECIMENOrdering Facility: [facility] Address: [address] [place] [address] Performed By: #### 1 9123-9, 3016-3, 91794-4, LIPNF ####[facility] LABCLIA [id number] [place] [address] [place] Creatinine and Glomerular filtration rate.predicted panel (S/P/Bld) 96 mL/min/1.73m??? Normal >=60 [facility] Comment on above: Order Comment: Pérez zhu Type: BLOOD SPECIMENOrdering Facility: [facility] Address: [address] [place] [address] Result Comment: Lydia mated Glomerular Filtration Rate [...] GFR. Performed By: #### 1 9123-9, 3016-3, 57968-1, LIPNF ####[facility] [id number] [place] [address] [place] Glucose [Mass/Vol] 92 mg/dL Normal 74-99 [facility] Comment on above: Order Comment: Pérez zhu Type: BLOOD SPECIMENOrdering Facility: [facility] Address: [address] [place] [address] Result Comment: The [place] Diabetes Association (ADA) provides guidance for cutoff [...] Standards of Medical Care in Diabetes 2016, [place] Diabetes Association. Diabetes Care. 2016.39(Suppl 1). Performed By: #### 1 9123-9, 3016-3, 05415-5, LIPNF ####[facility] LABCLIA [id number] [address] [address] [place] Potassium [Moles/Vol] 3.9 mmol/L Normal 3.7-5.[address] [facility] Comment on above: Order Comment: Speci men Type: BLOOD SPECIMENOrdering Facility: [facility] Address: [address] [place] [address] Performed By: #### 1 9123-9, 6-3, 44073-9, LIPNF ####[facility] LABCLIA [id number] [address] [address] [place] Protein [Mass/Vol] 7.5 g/dL Normal 6.3-8.0 [facility] Comment on above: Order Comment: Speci men Type: BLOOD SPECIMENOrdering Facility: [facility] Address: [address] [place] [address] Performed By: #### 1 9123-9, 3015-3, 01043-4, LIPNF ####[facility] LABCLIA [id number] [place] [address] [place] Sodium [Moles/Vol] 138 mmol/L Normal 136-144 [facility] Comment on above: Order Comment: Speci men Type: BLOOD SPECIMENOrdering Facility: [facility] Address: [address] [place] [address] Performed By: #### 1 9123-9, 3015-3, 34586-7, LIPNF ####[facility]CLIA [id number] [address] [address] [place] Urea nitrogen [Mass/Vol] 18 mg/dL Normal 7-21 [facility] Comment on above: Order Comment: Speci men Type: BLOOD SPECIMENOrdering Facility: [facility] Address: [address] [place] [address] Performed By: #### 1 9123-9, 6-3, 74924-2, LIPNF ####[facility] LABCLIA [id number] [address] [place] HbA1c (Bld)on 09-23-2024 Average glucose Estimated from glycated hemoglobin (Bld) [Mass/Vol] 80 mg/dL Normal [facility] Comment on above: Order Comment: Pérez zhu Type: BLOOD SPECIMENOrdering Facility: [facility] Address: [address] [place] [address] Result Comment: eAG: (Estimated average glucose) is a calculated value from HgbA1c and is customer solutions representative of the average blood glucose level in the last 2-3 month period. Performed By: #### 5 5454-3 ####[facility] LABCLIA [id number] [address] [facility] HbA1c (Bld) [Mass fraction] 4.4 % Normal 4.3-5.6 [facility] Comment on above: Order Comment: Pérez zhu Type: BLOOD SPECIMENOrdering Facility: [facility] Address: [address] [place] [address] Result Comment: Amer ican Diabetes Association guidelines indicate that patients with HgbA1c in the range 5.7-6.4% are at increased risk for development of diabetes, and intervention by lifestyle modification may be beneficial. HgbA1c greater or equal to 6.5% is considered diagnostic of diabetes. Performed By: #### 5 5454-3 ####[facility] LABCLIA [id number] [address] [place] LIPID PANEL, NONFASTINGon Cholesterol [Mass/Vol] 190 mg/dL Normal <200 [facility] Comment on above: Order Comment: Pérez zhu Type: BLOOD SPECIMENOrdering Facility: [facility] Address: [address] [place] [address] Result Comment: <200 mg/dL, Desirable 200-239 mg/dL, Borderline high >239 mg/dL, High Performed By: #### 1 9123-9, 3016-3, 85042-1, LIPNF ####[facility]CLIA [id number] [address] [place] HDL CHOLESTEROL, NF 53 mg/dL Normal >39 [facility] Comment on above: Order Comment: Speci men Type: BLOOD SPECIMENOrdering Facility: [facility] Address: [address] [place] [address] Result Comment: 40-5 9 mg/dL, Acceptable >59 mg/dL, High: Negative risk factor for coronary heart disease <40 mg/dL, Low: Positive risk factor for coronary heart disease Performed By: #### 1 9123-9, 3016-3, 82963-1, LIPNF ####[facility] LABCLIA [id number] [address] [facility] LDL CHOLESTEROL, NF 121 mg/dL High <100 [facility] Comment on above: Order Comment: Pérez marko Type: BLOOD SPECIMENOrdering Facility: [facility] Address: [address] [place] [address] Result Comment: <100 mg/dL, Optimal 100-129 mg/dL, Near optimal/above optimal 130-159 mg/dL, Borderline high 160-189 mg/dL, High >189 mg/dL, Very high Secondary prevention optimal LDL Cholesterol levels are recommended to be < 70 mg/dL Performed By: #### 1 9123-9, 6-3, 54060-3, LIPNF ####[facility]CLIA [id number] [address] [place] LDL/HDL RATIO, NF 2.28 mg/dL Normal <2.54 [facility] Comment on above: Order Comment: Leonori men Type: BLOOD SPECIMENOrdering Facility: [facility] Address: [facility] [place] [address] Result Comment: Henri horner: 1. National Cholesterol Education Program ATP III Guideline At-A-Glance Quick Desk Reference: National Heart, Lung, and Blood [place]. National Institutes of Health. 2001: NIH Publication No. 01-3305. 2. An International Atherosclerosis Society position paper: global recommendations for the management of dyslipidemia: executive summary, Atherosclerosis. 2014: 232(2):410-413. Performed By: #### 1 9123-9, 6-3, 73480-3, LIPNF ####[facility] LABCLIA [id number] [place] [address] [place] NON HDL CHOL, NF 137 mg/dL High <130 [facility] Comment on above: Order Comment: Speci men Type: BLOOD SPECIMENOrdering Facility: [facility] Address: [address] [place] [address] Result Comment: <130 mg/dL, Optimal 130-159 mg/dL, Near optimal/above optimal 160-189 mg/dL, Borderline high 190-219 mg/dL, High >219 mg/dL, Very high Secondary prevention optimal non HDL Cholesterol levels are recommended to be <100 mg/dL Performed By: #### 1 9123-9, 3015-3, 75594-9, LIPNF ####[facility] LABCLIA [id number] [place] [address] [place] T CHOL/HDL RATIO NF 3.58 mg/dL Normal <5.10 [facility] Comment on above: Order Comment: Speci men Type: BLOOD SPECIMENOrdering Facility: [facility] Address: [address] [place] [address] Performed By: #### 1 9123-9, 3015-3, 90124-1, LIPNF ####[facility] LABCLIA [id number] [place] [address] [place] TRIGLYCERIDES, NF 81 mg/dL Normal <150 [facility] Comment on above: Order Comment: Speci men Type: BLOOD SPECIMENOrdering Facility: [facility] Address: [address] [place] [address] Result Comment: <150 mg/dL, Normal 150-199 mg/dL, Borderline high 200-499 mg/dL, High >499 mg/dL, Very high Performed By: #### 1 9123-9, 6-3, 20650-6, LIPNF ####[facility]CLIA [id number] [place] [address] [place] VLDL CHOLESTEROL, NF 16 mg/dL Normal <30 [facility] Comment on above: Order Comment: Speci men Type: BLOOD SPECIMENOrdering Facility: [facility] Address: [address] [place] [address] Performed By: #### 1 9123-9, 3016-3, 99185-3, LIPNF ####[facility]CLIA [id number] [place] [address] [place] Magnesium SerPl-mCncon 09-23 Magnesium [Mass/Vol] 2.2 mg/dL Normal 1.7-2.3 [facility] Comment on above: Order Comment: Speci men Type: BLOOD SPECIMENOrdering Facility: [facility] Address: [address] [place] [address] Performed By: #### 1 9123-9, 3016-3, 24006-5, LIPNF ####[facility]CL[facility] [id number] [place] [address] [place] TSH SerPl-aCncon 09-23-2024 TSH Qn 1.470 m[IU]/L Normal 0.270-4.200 [facility] Comment on above: Order Comment: Speci men Type: BLOOD SPECIMENOrdering Facility: [facility] Address: [address] [place] [address] Result Comment: If t he patient is , TSH reference range varies by gestational period: First Trimester (weeks 9-12): 0.180-2.990 mIU/L Second Trimester: 0.110-3.980 mIU/L Third Trimester: 0.480-4.710 mIU/L Gordon Al et al. A Practical Approach for the Verifications and Determination of Site- and Trimester-Specific Reference Intervals for Thyroid Function tests in . Thyroid, 2019:29:3:412-420. Gilson Garcia, et al. 2017 Guidelines of the [place] [employer] for the Diagnosis and Management of Thyroid Disease during and the . Thyroid, 2017:27:3:315-389. Performed By: #### 1 9123-9, 3016-3, 79245-4, LIPNF ####[facility] LABCLIA [id number] [facility] [address] [place] Vit B12 SerPl-mCncon 11-25-2 024 Cobalamin (Vitamin B12) [Mass/Vol] 976 pg/mL Normal 232-1245 [facility] Comment on above: Order Comment: Speci men Type: BLOOD SPECIMENOrdering Facility: [facility] Address: [address] [place] [address] Performed By: #### 2 132-9 ####[facility] LABCLIA [id number] [address] [place] OPERATIVE NOon 09-17-2024 OPERATIVE NO HNO ID: [id number] Author: ISAAC CANNON MD Service: Pain Management [...] today: Shoulder (subacromial bursa injection with ultrasound) (31718-25, U/S) Laterality: Bilateral Approach: anterior Injectate: [1 [...] ordering physician as planned. Isaac Cannon MD [facility] 09-12-2024 [facility] Office Visit (FAMPWS ) SHEILA CROWE ([id number]) 1980 F Date Time Provider Department 09/12/24 10:00 AM [facility] During [facility] visit today, we recorded the following information about you: Pulse Respiration Blood pressure Weight 76/minute 16/minute 134/78 82.7 kg Ellen Rene APRN.DARKROOM WORKER 09/12/2024 10:36 AM Signed This is a [...] EXPOSED ROOT (ELEVATION AND/OR FORCEPS REMOVAL) 1995 [place] teeth TONSILLECTOMY PRIMARY/SECONDARY Tonsillectomy ALLERGIES Clindamycin, Levaquin [...] affected area. ketoconazole (NIZORAL) 2 % shampoo oy-zo-ppty-FA-Ca carb-vit K (WOMEN'S MULTIVITAMIN) 18 mg-400 mcg- [...] Vitals reviewed. (more content not included)... Normal [facility] CNOVon 08-28-2024 CNOV Office Visit ([place] ) SHEILA CROWE ([id number]) 1980 F Date Time Provider Department 08/28/24 [...] PM Signed This note was created using Waterfall. Subjective Sheila Crowe is a 43 year [...] EXPOSED ROOT (ELEVATION AND/OR FORCEPS REMOVAL) 1995 [place] teeth TONSILLECTOMY PRIMARY/SECONDARY Tonsillectomy Social History Tobacco [...] (05/2020) 2 (more content not included)... Normal [facility] CNTHERAPYon 08-07-2024 CNTHERAPY OT/PT/Speech Visit (PTWS) SHEILA CROWE ([id number]) 1980 F Date Time Provider Department 08/07/24 11:30 AM SALVADOR HART PTWS Date Time Provider Department Center 08/07/2024 11:30 AM [id number], COLIN PTWS Irwin Rodriguez Reason for Visit: [...] Date Reviewed: 06/13/2024 Reviewed by: Ellen Rene APRN.DARKROOM WORKER - Fully Assessed Prescriptions as of 08/07/2024 [...] - ketoconazole (NIZORAL) 2 % shampoo - yl-oi-zmds-FA-Ca carb-vit K (WOMEN'S MULTIVITAMIN) 18 mg-400 mcg- [...] 400 mg by mouth once daily. Normal [facility] CNTHERAPYon 07-24-2024 CNTHERAPY OT/PT/Speech Visit (PTWS) SHEILA CROWE ([id number]) 1980 F Date Time Provider Department 07/24/24 11:30 AM SALVADOR HART PTWS Date Time Provider Department Center 07/24/2024 11:30 AM [id number], COLIN PTWS Irwin Rodriguez Reason for Visit: [...] Date Reviewed: 06/13/2024 Reviewed by: Ellen Rene APRN.DARKROOM WORKER - Fully Assessed Prescriptions as of 07/24/2024 [...] - ketoconazole (NIZORAL) 2 % shampoo - lc-bb-eput-FA-Ca carb-vit K (WOMEN'S MULTIVITAMIN) 18 mg-400 mcg- [...] Take 400 mg by mouth once daily. Contract Programmer: Addendum Therapy (PT/OT/Speech/Resp) ID: [id number] 07/24/2024 11:54 AM Author: SALVADOR HART Signed by SALVADOR HART PT on 07/24/2024 at 11:54 AM * * * This document replaces document [id number] * * * Document text: Program_ID:[id number] Access Code: [email or web address] URL: [email or web address] Date: 07-24-2024 Prepared By: Salvador Hart Program [...] 2 sets - 10 reps -- Normal [facility] THERAPY NTon 07-24-2024 THERAPY NT HNO ID: [id number] Author: SALVADOR HART PT Service: ? Author Type: Physical Therapist Type: Therapy (PT/OT/Speech/Resp) Filed: 07/24/2024 11:54 Note Text: Program_ID:[id number] Access Code: [email or web address] URL: [email or web address] Date: 07-24-2024 Prepared By: Salvador Hart Program [...] - 2 sets - 10 reps Normal [facility] CNTHERAPYon 07-10-2024 CNTHERAPY OT/PT/Speech Visit (PTWS) SHEILA CROWE ([id number]) 1980 F Date Time Provider Department 07/10/24 3:00 PM SALVADOR HART PTWS Date Time Provider Department [place] 07/10/2024 3:00 PM [id number], COLIN PTWS Irwin Rodriguez Reason for Visit: [...] Date Reviewed: 06/13/2024 Reviewed by: Ellen Rene APRN.DARKROOM WORKER - Fully Assessed Prescriptions as of 07/10/2024 [...] - ketoconazole (NIZORAL) 2 % shampoo - ct-ib-ilyw-FA-Ca carb-vit K (WOMEN'S MULTIVITAMIN) 18 mg-400 mcg- [...] 400 mg by mouth once daily. Normal [facility] [id number] 07-04-2024 [id number] HNO ID: [id number] Author: SALVADOR HART, JESUS Service: ? Author Type: Physical Therapist Type: [id number] Filed: 07/04/2024 13:00 Note Text: [facility] Physical Therapy Plan of Care Certification Patient Name: Sheila Crowe : 1980 [facility] #: [id number] Date: 07/04/2024 To: Ellen Rene A* From [...] of Care: created on 06/03/24 through 08/18/24 [place] in home exercise program. (Currently Met) Patient [...] Patient to be seen for Therapeutic exercise (14703), Neuromuscular re-education (65863), Manual therapy (23953), Therapeutic activities (27154), Self-detention management (30142), Body Mechanics Training, Patient/Family/Caregiv er Education PLAN FOR NEXT VISIT: Erector Strength and Stability in Standing; Can return to STM on B erectors and upper glutes as tolerated. For further details regarding this patient refer to the Physical Therapy electronically documented visit dated 07/04/2024. Provider Attestation I have reviewed the treatment plan for Sheila Crowe, CC# [id number] for the period of 07/10/24 -- 08/15/24, established on 07/04/2024. Signature certifies the need for therapy services. Normal [facility] CNTHERAPYon 07-04-2024 CNTHERAPY OT/PT/Speech Visit (PTWS) SHEILA CROWE ([id number]) 1980 F Date Time Provider Department 07/04/24 10:45 AM SALVADOR HART PTWS Date Time Provider Department Center 07/04/2024 10:45 AM [id number], COLIN PTWS Irwin Rodriguez Reason for Visit: [...] Date Reviewed: 06/13/2024 Reviewed by: Ellen Rene APRN.DARKROOM WORKER - Fully Assessed Prescriptions as of 07/04/2024 [...] - ketoconazole (NIZORAL) 2 % shampoo - ah-sy-thgz-FA-Ca carb-vit K (WOMEN'S MULTIVITAMIN) 18 mg-400 mcg- [...] 400 mg by mouth once daily. Normal [facility] CNTHERAPYon 06-27-2024 CNTHERAPY OT/PT/Speech Visit (PTWS) SHEILA CROWE ([id number]) 1980 F Date Time Provider Department 06/27/24 10:15 AM RACHEL WHITESIDE PTWS Date Time Provider Department Center 06/27/2024 10:15 AM [id number], MARIAH PTWS Irwin Rodriguez Reason for Visit: [...] Date Reviewed: 06/13/2024 Reviewed by: Ellen Rene APRN.DARKROOM WORKER - Fully Assessed Prescriptions as of 06/27/2024 [...] - ketoconazole (NIZORAL) 2 % shampoo - yi-we-pljf-FA-Ca carb-vit K (WOMEN'S MULTIVITAMIN) 18 mg-400 mcg- [...] 400 mg by mouth once daily. Normal [facility] XR Sacrum and Coccyx 3 Views on 06-25-2024 IMPRESSION: No acute osseous abnormality. Trainman: PSCB Transcribe Date/Time: Jun 25 2024 5:53P Dictated by : GUSTAVO PECK DO This examination was interpreted and the report reviewed and electronically signed by: GUSTAVO PECK DO on Jun 25 2024 5:55PM [facility] DIVISION OF RADIOLOGY * * *Final [...] spine. IMPRESSION IMPRESSION: No acute osseous abnormality. Trainman: TAINA Transcribe Date/Time: Jun 25 2024 5:53P Dictated by : GUSTAVO PECK DO This examination was interpreted and the report reviewed and electronically signed by: GUSTAVO PECK DO on Jun 25 2024 5:55PM [facility] XR Sacrum and Coccyx 3 Views Ordered By: Radha Provider on 06-25-2024 [facility] SHEIL[facility] CROW[facility] ([id number]) 1980 F Date Time Provider Department 06/21/24 [facility] During your visit today, we recorded [...] please advise and phone pt with reply: [phone] Ellen Rene APRN.DARKROOM WORKER 06/21/2024 10:42 AM Signed We can certainly [...] Date Reviewed: 06/13/2024 Reviewed by: Ellen Rene APRN.DARKROOM WORKER - Fully Assessed Reason for Visit: Patient concern [Other] Primary Visit Diagnosis:Coccyx pain [M53.3] Order(s):XR SACRUM/COCCYX 3V AP/LAT [[id number]] Order #: [id number] FUTURE Prescriptions as of 06/21/2024 - tiZANidine [...] - ketoconazole (NIZORAL) 2 % shampoo - mt-xm-jcdd-FA-Ca carb-vit K (WOMEN'S MULTIVITAMIN) 18 mg-400 mcg- [...] Osteoarthritis of knee [M17.9] 03/18/2020 04/12/2023 Other rn long term care (current) drug therapy [Z79.899]09/24/2018 Sacroiliitis (HCC) [M46.1] 03/02/2022 Subacromial bursitis of both shoulders [M75.51,*11/30/2022 Primary osteoarthritis of both knees [M17.0] 11/30/2022 History of diabetes mellitus [Z86.39] 10/13/2023 Neuropathy involving both lower extremities [G5*02/07/2024 Acute midline low back pain without sciatica [M*06/03/2024 Encounter Status:Closed by IWONA GOFF on 06/21/24 Normal [facility] XR SACRUM/COCCYX 3V AP/LATon 06-21-2024 [...] lumbar spine. IMPRESSION: No acute osseous abnormality. Trainman: PSCB Transcribe Date/Time: Jun 25 2024 5:53P Dictated by : GUSTAVO PECK DO This examination was interpreted and the report reviewed and electronically signed by: GUSTAVO PECK DO on Jun 25 2024 5:55PM EST [id number] Normal [facility] XR Sacrum and Coccyx 3 Views on 06-21-2024 Radiology Study observation (narrative) [facility] CNOVon 06-13-2024 CNOV Office Visit (FAMPWS ) SHEILA CROWE ([id number]) 1980 F Date Time Provider Department 06/13/24 11:20 [facility] During your visit today, we recorded the following information about you: Pulse Respiration Blood pressure Weight 78/minute 16/minute 122/74 84.4 kg Ellen Rene, PENAL OFFICER.DARKROOM WORKER 06/13/2024 11:39 AM Signed This is a [...] EXPOSED ROOT (ELEVATION AND/OR FORCEPS REMOVAL) Comment: [place] teeth 1995: TONSILLECTOMY PRIMARY/SECONDARY Comment: Tonsillectomy ALLERGIES [...] affected area. ketoconazole (NIZORAL) 2 % shampoo rs-sz-pfuv-FA-Ca carb-vit K (WOMEN'S MULTIVITAMIN) 18 mg-400 mcg- [...] next v (more content not included)... Normal [facility] CNTHERAPYon 06-13-2024 CNTHERAPY OT/PT/Speech Visit (PTWS) SHEILA CROWE ([id number]) 1980 F Date Time Provider Department 06/13/24 2:15 PM SALVADOR HART PTWS Date Time Provider Department Center 06/13/2024 2:15 PM [id number], COLIN PTWS Irwin Rodriguez Reason for Visit: [...] Date Reviewed: 06/13/2024 Reviewed by: Ellen Rene APRN.DARKROOM WORKER - Fully Assessed Prescriptions as of 07/04/2024 [...] - ketoconazole (NIZORAL) 2 % shampoo - px-sr-hgkr-FA-Ca carb-vit K (WOMEN'S MULTIVITAMIN) 18 mg-400 mcg- [...] Take 400 mg by mouth once daily. Contract Programmer: Therapy (PT/OT/Speech/Resp) ID: [id number] 06/13/2024 2:45 PM Author: SALVADOR HART Signed by SALVADOR HART PT on 06/13/2024 at 2:45 PM Document text: Program_ID:[id number] Access Code: [email or web address] URL: [email or web address] Date: 06-13-2024 Prepared By: Salvador Hart Program [...] 2 sets - 10 reps -- Normal [facility] THERAPY NTon 06-13-2024 THERAPY NT HNO ID: [id number] Author: SALVADOR HART, PT Service: ? Author Type: Physical Therapist Type: Therapy (PT/OT/Speech/Resp) Filed: 06/13/2024 14:45 Note Text: Program_ID:[id number] Access Code: [email or web address] URL: [email or web address]/ Date: 06-13-2024 Prepared By: Salvador Hart Program [...] - 2 sets - 10 reps Normal [facility] [id number] 06-03-2024 [id number] HNO ID: [id number] Author: SALVADOR HART PT Service: ? Author Type: Physical Therapist Type: [id number] Filed: 06/03/2024 13:39 Note Text: [facility] Physical Therapy Plan of Care Certification Patient Name: Sheila Crowe : 1980 [facility] #: [id number] Date: 06/03/2024 To: Ellen Rene A* From [...] of Care: created on 06/03/24 through 08/03/24 [place] in home exercise program. Patient will decrease [...] Planned: 4 Planned Treatment Interventions: Therapeutic exercise (26353), Neuromuscular re-education (84213), Manual therapy (04042), Therapeutic activities (40163), Self-detention management (49890), Body Mechanics Training, Patient/Family/Caregiv er Education PLAN [...] have reviewed the treatment plan for Sheila Corwe, [facility]# [id number] for the period of 06/03/24 -- 07/10/24, established on 06/03/2024. Signature certifies the need for therapy services. Normal [facility] CNTHERAPYon 06-03-2024 CNTHERAPY OT/PT/Speech Visit (PTWS) SHEILA CROWE ([id number]) 1980 F Date Time Provider Department 06/03/24 10:00 AM SALVADOR HART PTWS Date Time Provider Department Center 06/03/2024 10:00 AM [id number], COLIN PTWS Irwin Michael Reason for Visit: [...] - ketoconazole (NIZORAL) 2 % shampoo - uj-kl-kvmd-FA-Ca carb-vit K (WOMEN'S MULTIVITAMIN) 18 mg-400 mcg- [...] Take 400 mg by mouth once daily. Contract Programmer: Therapy (PT/OT/Speech/Resp) ID: [id number] 06/03/2024 10:40 AM Author: SALVADOR HART Signed by SALVADOR HART PT on 06/03/2024 at 10:40 AM Document text: Program_ID:[id number] Access Code: [email or web address] URL: [email or web address] Date: 06-03-2024 Prepared By: Salvador Hart Program [...] - 2-3 sets - reps -- Normal [facility] THERAPY NTon 06-03-2024 THERAPY NT HNO ID: [id number] Author: SALVADOR HART, PT Service: ? Author Type: Physical Therapist Type: Therapy (PT/OT/Speech/Resp) Filed: 06/03/2024 10:40 Note Text: Program_ID:[id number] Access Code: [email or web address] URL: [email or web address] Date: 06-03-2024 Prepared By: Salvaodr Hart Program Notes Exercises - Hooklying Single [...] weekly - 2-3 sets - reps Normal [facility] XR Lumbar spine 3 Viewson IMPRESSION: Lumbar spine degenerative changes as described above. Trainman: PSCB Transcribe Date/Time: May 10 2024 12:05P Dictated by : MACEY GERBER MD This examination was interpreted and the report reviewed and electronically signed by: MACEY GERBER MD on May 10 2024 12:09PM [facility] DIVISION OF RADIOLOGY * * *Final [...] spine are presented. FINDINGS: There are five afh-wea-mlmsihi lumbar vertebrae. No fracture or subluxations are [...] spine are presented. FINDINGS: There are five rat-exw-tuptbhq lumbar vertebrae. No fracture or subluxations are noted. L1-2 and possible L5-S1 disc space narrowing noted. There is moderate osteophyte formation. Kissing spine seen on lateral view. IMPRESSION IMPRESSION: Lumbar spine degenerative changes as described above. Trainman: PSCB Transcribe Date/Time: May 10 2024 12:05P Dictated by : MACEY GERBER MD This examination was interpreted and the report reviewed and electronically signed by: MACEY GERBER MD on May 10 2024 12:09PM EST [facility] Radiology Study observation (narrative) [facility] XR Lumbar spine 3 ViewsOrder ed By: Ccf Provider on 05-10-2024 [facility] CBC W Auto Differential pane l (Bld)on 01-29-2024 Basophils (Bld) [#/Vol] <0.11 k/uL [facility] Basophils/100 WBC (Bld) 0.3 % [facility] Differential cell count method Nom (Bld) Auto [facility] Eosinophils (Bld) [#/Vol] 0.03 10*3/uL <0.46 k/uL [facility] Eosinophils/100 WBC (Bld) 0.4 % [facility] Erythrocyte distribution width (RBC) [Ratio] 11.8 % 11.5 - 15.0 % [facility] Hematocrit (Bld) [Volume fraction] 44.0 % 36.0 - 46.0 % [facility] Hemoglobin (Bld) [Mass/Vol] 14.3 g/dL 11.5 - 15.5 g/dL [facility] Immature granulocytes (Bld) [#/Vol] <0.10 k/uL [facility] Immature granulocytes/100 WBC (Bld) 0.3 % [facility] Lymphocytes (Bld) [#/Vol] 2.33 10*3/uL 1.00 - 4.00 k/uL [facility] Lymphocytes/100 WBC (Bld) 32.2 % [facility] MCH (RBC) [Entitic mass] 30.1 pg 26.0 - 34.0 pg [facility] MCHC (RBC) [Mass/Vol] 32.5 g/dL 30.5 - 36.0 g/dL [facility] MCV (RBC) [Entitic vol] 92.6 fL 80.0 - 100.0 fL [facility] Monocytes (Bld) [#/Vol] 0.27 10*3/uL <0.87 k/uL [facility] Monocytes/100 WBC (Bld) 3.7 % [facility] Neutrophils (Bld) [#/Vol] 4.56 10*3/uL 1.45 - 7.50 k/uL [facility] Neutrophils/100 WBC (Bld) 63.1 % [facility] Nucleated RBC (Bld) [#/Vol] <0.01 k/uL [facility] Nucleated RBC/100 WBC (Bld) [Ratio] 0.0 /100 WBC [facility] Platelet mean volume (Bld) [Entitic vol] 11.4 fL 9.0 - 12.7 fL [facility] Platelets (Bld) [#/Vol] 201 10*3/uL 150 - 400 k/uL [facility] RBC (Bld) [#/Vol] 4.75 10*6/uL 3.90 - 5.2 0 m/uL [facility] WBC (Bld) [#/Vol] 7.23 10*3/uL 3.70 - 11. 00 k/uL [facility] Comprehensive metabolic 2000 panelon 01-29-2024 Albumin [Mass/Vol] 4.7 g/dL 3.9 - 4.9 g/dL [facility] ALP [Catalytic activity/Vol] 66 U/L 34 - 123 U/L [facility] ALT [Catalytic activity/Vol] 19 U/L 7 - 38 U/L [facility] Anion gap [Moles/Vol] 14 mmol/L 9 - 18 mmol/L [facility] AST [Catalytic activity/Vol] 25 U/L 13 - 35 U/L [facility] Bilirubin [Mass/Vol] 0.3 mg/dL 0.2 - 1 .3 mg/dL [facility] Calcium [Mass/Vol] 10.2 mg/dL 8.5 - 10. 2 mg/dL [facility] Chloride [Moles/Vol] 104 mmol/L 97 - 10 5 mmol/L [facility] CO2 [Moles/Vol] 24 mmol/L 22 - 30 mmol/L [facility] Creatinine [Mass/Vol] 0.84 mg/dL 0.58 - 0.96 mg/dL [facility] Estimated Glomerular Filtration Rate 88 mL/min/1.73m >=60 mL/min/1.73m [facility] Glucose [Mass/Vol] 103 mg/dL High 74 - 99 mg/dL [facility] Potassium [Moles/Vol] 4.0 mmol/L 3.7 - 5.1 mmol/L [facility] Protein [Mass/Vol] 7.6 g/dL 6.3 - 8.0 g/dL [facility] Sodium [Moles/Vol] 142 mmol/L 136 - 144 mmol/L [facility] Urea nitrogen [Mass/Vol] 12 mg/dL 7 - 21 mg/dL [facility] HEMOCUE B/Oon 01-29-2024 Hemoglobin (Bld) [Mass/Vol] Negative 12.0 - 16.0 g/dL [facility] LIPASE BLDon 01-29-2024 Lipase [Catalytic activity/Vol] 15 U/L Low 16 - 61 U/L [facility] XR Abdomen Supine and Uprigh ton 01-29-2024 IMPRESSION: NO ACUTE ABDOMINAL PATHOLOGY VISUALIZED Trainman: PSCNadeem Transcribe Date/Time: Jan 29 2024 3:34P Dictated by : CARLOS ENRIQUE YANEZ MD This examination was interpreted and the report reviewed and electronically signed by: CARLOS ENRIQUE YANEZ MD on Jan 29 2024 3:34PM [facility] DIVISION OF RADIOLOGY * * *Final [...] abnormalities. DIVISION OF RADIOLOGY Provider, [facility] - 01/29/2024 * * *Final Report* [...] IMPRESSION IMPRESSION: NO ACUTE ABDOMINAL PATHOLOGY VISUALIZED Trainman: [facility] Transcribe Date/Time: Jan 29 2024 3:34P Dictated by : CARLOS ENRIQUE YANEZ MD This examination was interpreted and the report reviewed and electronically signed by: CARLOS ENRIQUE YANEZ MD on Jan 29 2024 3:34PM EST [facility] Radiology Study observation (narrative) [facility] XR Abdomen Supine and Uprigh tOrdered By: [facility] Provider on 01-29-2024 [facility] [id number] 12-15-2023 Vitamin B6 Lvl 26.2 UG/L Normal 3.4-65.2 [facility] ([place]) Comment on above: Result Comment: This test was developed and its performance characteristics determined by [employer]. It has not been cleared or approved by the Food and Drug Administration. Deficiency: <3.4 Marginal: 3.4 - 5.1 Adequate: >5.1 Performed At: [address] [id number] Lloyd White MD Ph:[phone] Performed By: #### A 1C, 223650, ENA1, 220735, 077368, TSH #### [place] [address] [address] #### IFES, B12, RF, SPE, FOL #### [address] [address] METon 12-11-2023 Methylmalonic Acid 153 nmol/L Normal 0-378 [facility] ([place]) Comment on above: Result Comment: This test was developed and its performance characteristics determined by [facility]. It has not been cleared or approved by the Food and Drug Administration. Performed At: [address] [id number] Lloyd White MD Ph:[phone] Performed By: #### A 1C, 290880, ENA1, 980790, 911461, TSH #### [address] [address] #### IFES, B12, RF, SPE, FOL #### [place] [id number] B1WBon 12-10-2023 Vitamin B1 Whl Bld 150.0 nmol/L Normal 66.5-200.0 Counts include 234 beds at the [facility] ([place]) Comment on above: Result Comment: This test was developed and its performance characteristics determined by [facility]. It has not been cleared or approved by the Food and Drug Administration. Performed At: [address] [id number] Lloyd White MD Ph:[phone] Performed By: #### A 1C, 717571, ENA1, 648179, 177866, TSH #### [address] [address] #### IFES, B12, RF, SPE, FOL #### [address] [address] RFon 12-07-2023 Rheumatoid Factor <6.0 Normal <=5.9 Counts Include 234 Beds At The [facility] ([place]) Comment on above: [...] endpoint titer. Performed By: #### A 1C, 652253, ENA1, 535995, 988800, TSH #### [place] [address] #### IFES, B12, RF, SPE, FOL #### [place] [address] SPEon 12-07-2023 SPE Interpretation Normal serum protein electrophoresis pattern. No abnormality detected. Normal Counts Include 234 Beds At [facility] ([place]) Comment on above: Result Comment: Elec tronically Signed by: TAYLOR RADFORD 12/07/2023 15:33 EST Performed By: #### A 1C, 723065, ENA1, 390565, 626805, TSH #### [place] [address] #### IFES, B12, RF, SPE, FOL #### [place] [address] Albumin 4.4 G/dL Normal 3.3-5.0 Counts Include 234 Beds At [facility] ([place]) Comment on above: Performed By: #### A 1C, 252424, ENA1, 864519, 922825, TSH #### [place] [address] #### IFES, B12, RF, SPE, FOL #### [place] [address] Alpha 1 0.2 G/dL Normal 0.1-0.4 Counts Include 234 Beds At [facility] ([place]) Comment on above: Performed By: #### A 1C, 469279, ENA1, 322170, 952502, TSH #### [place] [address] #### IFES, B12, RF, SPE, FOL #### [place] [address] Alpha 2 0.9 G/dL Normal 0.6-1.2 Counts Include 234 Beds At [facility] ([place]) Comment on above: Performed By: #### A 1C, 757367, ENA1, 943067, 243696, TSH #### [address] [address] #### IFES, B12, RF, SPE, FOL #### [address] [address] Beta 0.9 G/dL Normal 0.6-1.3 Counts Include 234 Beds At [facility] ([place]) Comment on above: Performed By: #### A 1C, 967115, ENA1, 869970, 380607, TSH #### [address] [address] #### IFES, B12, RF, SPE, FOL #### [address] [address] Gamma 1.2 G/dL Normal 0.7-1.6 Counts Include 234 Beds At [facility] ([place]) Comment on above: Performed By: #### A 1C, 078610, ENA1, 213110, 322591, TSH #### [place] [address] #### IFES, B12, RF, SPE, FOL #### [place] [address] ENA1on 12-06-2023 Centromere <0.2 Normal <1.0 Counts Include 234 Beds At [facility] ([place]) Comment on above: Result Comment: Anti -centromere antibody is used as in aid in diagnosis of systemic sclerosis. Clinical correlation is required. Test Methodology: Multiplex flow immunoassay. Performed By: [facility] [facility] [place] [address] Nurse Practitioner: Rick Orantes IIIIA#: [id number] Performed By: #### A 1C, 591102, ENA1, 433083, 593390, TSH #### [place] [address] #### IFES, B12, RF, SPE, FOL #### [address] [address] Centromere Ab Qualitative Negative Normal Negative Counts Include 234 Beds At [facility] ([place]) Comment on above: Result Comment: Perf ormed By: [place] [address] Nurse Practitioner: Carlos Mistry III, M.D. CLIA#: [id number] Performed By: #### A 1C, 815496, ENA1, 984011, 557462, TSH #### [address] [address] #### IFES, B12, RF, SPE, FOL #### [address] [address] Chromatin Ab Qualitative Negative Normal Negative Counts Include 234 Beds At [facility] ([place]) Comment on above: Result Comment: Perf ormed By: [place] [address] Nurse Practitioner: Carlos Mistry III, M.D. CLIA#: [id number] Performed By: #### A 1C, 481182, ENA1, 763885, 117642, TSH #### [place] [address] #### IFES, B12, RF, SPE, FOL #### [address] [address] Chromatin Antibody <0.2 Normal <1.0 [facility] ([place]) Comment on above: Result Comment: Test Methodology: Multiplex flow immunoassay. Anti-chromatin antibody is used as an aid in diagnosis of systemic lupus erythematosus. Clinical correlation is required. Test Methodology: Multiplex flow immunoassay. Performed By: [place] [address] Nurse Practitioner: Carlos Mistry III, M.D. CLIA#: [id number] Performed By: #### A 1C, 811883, ENA1, 004611, 632780, TSH #### [address] [address] #### IFES, B12, RF, SPE, FOL #### [address] [address] CARMELITA 1 Antibody <0.2 Normal <1.0 [facility] ([place]) Comment on above: Result Comment: Perf ormed By: [facility] [address] [place] [address] Nurse Practitioner: Carlos Mistry III, M.D. CLIA#: [id number] Performed By: #### A 1C, 341393, ENA1, 249461, 297809, TSH #### [address] [address] #### IFES, B12, RF, SPE, FOL #### [address] [address] CARMELITA 1 Antibody Qual Negative Normal Negative [facility] ([place]) Comment on above: Result Comment: Anti -CARMELITA-1 antibody is used as an aid in diagnosis of polymyositis and dermatomyositis especially with pulmonary involvement. A negative result cannot rule out polymyositis or dermatomyositis. Clinical correlation is required. Test Methodology: Multiplex flow immunoassay. Performed By: [place] [address] Nurse Practitioner: Carlos Mistry III, M.D. CLIA#: [id number] Performed By: #### A 1C, 598484, ENA1, 047578, 353282, TSH #### [address] [address] #### IFES, B12, RF, SPE, FOL #### [address] [address] Ribosomal CUSTOMS DIRECTOR <0.2 Normal <1.0 [facility] ([place]) Comment on above: Result Comment: Perf ormed By: [place] [address] Nurse Practitioner: Carlos Mistry III, M.D. CLIA#: [id number] Performed By: #### A 1C, 635651, ENA1, 470416, 317385, TSH #### [address] [address] #### IFES, B12, RF, SPE, FOL #### [address] [address] Ribosomal CUSTOMS DIRECTOR Qualitative Negative Normal Negative Counts Include 234 Beds At [facility] ([place]) Comment on above: Result Comment: Anti -Ribosomal RNA (Ribosomal P) antibody is used as an aid in diagnosis of systemic autoimmune diseases especially systemic lupus erythematosus and mixed connective tissue disease. Cross-reactivity with Anti-sarabia antibody is not uncommon. Clinical correlation is required. Test Methodology: Multiplex flow immunoassay. Performed By: [place] [address] Nurse Practitioner: Carlos Mistry III, M.D. CLIA#: [id number] Performed By: #### A 1C, 186284, ENA1, 338758, 172384, TSH #### [place] [address] #### IFES, B12, RF, SPE, FOL #### [address] [address] CUSTOMS DIRECTOR Antibody <0.2 Normal <1.0 [facility] ([place]) Comment on above: Result Comment: Anti -CUSTOMS DIRECTOR antibody is used as an aid in diagnosis of systemic autoimmune diseases especially systemic lupus erythematosus and mixed connective tissue disease. Cross-reactivity with Anti-sarabia antibody is not uncommon. Clinical correlation is required. Test Methodology: Multiplex flow immunoassay. Performed By: [place] [address] Nurse Practitioner: Carlos Mistry III, M.D. CLIA#: [id number] Performed By: #### A 1C, 236976, ENA1, 452616, 832586, TSH #### [address] [address] #### IFES, B12, RF, SPE, FOL #### [address] [address] CUSTOMS DIRECTOR Antibody Qualitative Negative Normal Negative Counts Include 234 Beds At [facility] ([place]) Comment on above: Result Comment: Perf ormed By: [place] [address] Nurse Practitioner: Carlos Mistry III, M.D. CLIA#: [id number] Performed By: #### A 1C, 167134, ENA1, 372230, 327722, TSH #### [address] [address] #### IFES, B12, RF, SPE, FOL #### [address] [address] Scleroderma Ab, IgG Qualitative Negative Normal Negative Counts Include 234 Beds At [facility] ([place]) Comment on above: Result Comment: Perf ormed By: [place] [address] Nurse Practitioner: Carlos Mistry III, M.D. CLIA#: [id number] Performed By: #### A 1C, 308275, ENA1, 040806, 667632, TSH #### [place] [address] #### IFES, B12, RF, SPE, FOL #### [address] [address] Scleroderma IgG Ab <0.2 Normal <1.0 [facility] [place]) Comment on above: Result Comment: Scl- 70/Scleroderma antibody test is used as an aid in diagnosis of systemic sclerosis especially the diffuse cutaneous form. A negative result cannot rule out systemic sclerosis. The final interpretation should consider clinical picture and other test results such as anti-centromere antibody. Test Methodology: Multiplex flow immunoassay. Performed By: [place] [address] Nurse Practitioner: Carlos Mistry III, M.D. CLIA#: [id number] Performed By: #### A 1C, 410614, ENA1, 477211, 542794, TSH #### [address] [address] #### IFES, B12, RF, SPE, FOL #### [place] [id number] Sm Antibody <0.2 Normal <1.0 [facility] ([place]) Comment on above: Result Comment: Perf ormed By: [place] [address] Nurse Practitioner: Carlos Mistry III, M.D. CLIA#: [id number] Performed By: #### A 1C, 425543, ENA1, 845182, 492682, TSH #### [address] [address] #### IFES, B12, RF, SPE, FOL #### [address] [address] Sm Antibody Qual Negative Normal Negative Counts Include 234 Beds At [facility] ([place]) Comment on above: Result Comment: Anti -Sm (Sarabia) antibody is used as an aid in diagnosis of systemic lupus erythematosus and its presence is associated with renal disease. A negative result cannot rule out systemic lupus erythematosus. Clinical correlation is required. Test Methodology: Multiplex flow immunoassay. Performed By: [facility] [address] [place] [address] Nurse Practitioner: Carlos Mistry III, M.D. CLIA#: [id number] Performed By: #### A 1C, 835037, ENA1, 733263, 100920, TSH #### [place] [address] #### IFES, B12, RF, SPE, FOL #### [address] [address] SS-A Antibody <0.2 Normal <1.0 [facility] ([place]) Comment on above: Result Comment: Test Methodology: Multiplex flow immunoassay. Anti-SSA (anti-Ro) antibody is used as an aid in diagnosis of a variety of systemic autoimmune diseases, Sjogren's syndrome among others. Clinical correlation is required. Test Methodology: Multiplex flow immunoassay. Performed By: [facility] [address] [place] [address] Nurse Practitioner: Carlos Mistry III, M.D. CLIA#: [id number] Performed By: #### A 1C, 587579, ENA1, 464431, 760603, TSH #### [place] [address] #### IFES, B12, RF, SPE, FOL #### [address] [address] SS-B Antibody <0.2 Normal <1.0 [facility] ([place]) Comment on above: Result Comment: Anti -SSB (anti-La) antibody is used as an aid in diagnosis of a variety of systemic autoimmune diseases, especially for Sjogren's syndrome and systemic lupus erythematosus. Clinical correlation is required. Test Methodology: Multiplex flow immunoassay. Performed By: [place] [address] Nurse Practitioner: Carlos Mistry III, M.D. CLIA#: [id number] Performed By: #### A 1C, 117633, ENA1, 322793, 430604, TSH #### [place] [address] #### IFES, B12, RF, SPE, FOL #### [address] [address] SSA Antibody Qualitative Negative Normal Negative Counts Include 234 Beds At [facility] ([place]) Comment on above: Result Comment: Perf ormed By: [place] [address] Nurse Practitioner: Carlos Mistry III, M.D. CLIA#: [id number] Performed By: #### A 1C, 572892, ENA1, 065610, 236643, TSH #### [place] [address] #### IFES, B12, RF, SPE, FOL #### [address] [address] SSB Antibody Qualitative Negative Normal Negative Counts Include 234 Beds At [facility] ([place]) Comment on above: Result Comment: Perf ormed By: [place] [address] Nurse Practitioner: Carlos Mistry III, M.D. CLIA#: [id number] Performed By: #### Elizabeth 1C, 364868, ENA1, 190887, 126366, TSH #### [place] [address] #### IFES, B12, RF, SPE, FOL #### [address] [address] IFESon 12-06-2023 IFES Interpretation Immunofixation electrophoresis of serum shows the presence of only polyclonal immunoglobulins (IgG,A,M,[employer] [place] and Lambda), No monoclonal protein detected. Normal Counts Include 234 Beds At [facility] ([place]) Comment on above: Result Comment: Elec tronically Signed by: TAYLOR RADFORD 12/06/2023 15:12 EST Performed By: #### A 1C, 455038, ENA1, 998647, 598339, TSH #### [address] [address] #### IFES, B12, RF, SPE, FOL #### [address] [address] A1Con 12-05-2023 HbA1c (Bld) [Mass fraction] 4.3 % Normal 4.3-6.4 Counts Include 234 Beds At [facility] ([place]) Comment on above: Performed By: #### A 1C, 730063, ENA1, 035774, 199563, TSH #### [address] [address] #### IFES, B12, RF, SPE, FOL #### [address] [address] B12on 12-05-2023 Cobalamin (Vitamin B12) [Mass/Vol] 1209 pg/mL High 211-911 Counts Include 234 Beds At [facility] ([place] Comment on above: Performed By: #### A 1C, 636016, ENA1, 772147, 238483, TSH #### [address] [address] #### IFES, B12, RF, SPE, FOL #### [address] [address] FOLon 12-05-2023 Folate 24.22 ng/mL High 5.38-24.00 [facility] ([place]) Comment on above: Performed By: #### A 1C, 050899, ENA1, 057429, 099884, TSH #### [address] [address] #### IFES, B12, RF, SPE, FOL #### [address] [address] LABORATORYOrdered By: SYSTEM SYSTEM on 12-05-2023 Cobalamin [...] 12-05-2023 Total Protein 7.6 G/dL Normal 5.7-8.2 [facility] ([place]) Comment on above: Result Comment: No te - New Reference Range in effect 20 Performed By: #### A 1C, 483819, ENA1, 237326, 140520, TSH #### [place] [address] #### IFES, B12, RF, SPE, FOL #### [place] [address] TSHon 12-05-2023 TSH Qn 1.48 m[IU]/L Normal 0.36-3.74 [facility] ([place]) Comment on above: Performed By: #### A 1C, 913237, ENA1, 685502, 925240, TSH #### [place] [address] #### IFES, B12, RF, SPE, FOL #### [place] [address] CBC W Auto Differential pane l (Bld)on 10-13-2023 Basophils (Bld) [#/Vol] <0.11 k/uL [facility] Basophils/100 WBC (Bld) 0.2 % [facility] Differential cell count method Nom (Bld) Auto [facility] Eosinophils (Bld) [#/Vol] 0.04 10*3/uL <0.46 k/uL [facility] Eosinophils/100 WBC (Bld) 0.7 % [facility] Erythrocyte distribution width (RBC) [Ratio] 13.1 % 11.5 - 15.0 % [facility] Hematocrit (Bld) [Volume fraction] 43.1 % 36.0 - 46.0 % [facility] Hemoglobin (Bld) [Mass/Vol] 13.9 g/dL 11.5 - 15.5 g/dL [facility] Immature granulocytes (Bld) [#/Vol] <0.10 k/uL [facility] Immature granulocytes/100 WBC (Bld) 0.3 % [facility] Lymphocytes (Bld) [#/Vol] 1.25 10*3/uL 1.00 - 4.00 k/uL [facility] Lymphocytes/100 WBC (Bld) 21.8 % [facility] MCH (RBC) [Entitic mass] 30.0 pg 26.0 - 34.0 pg [facility] MCHC (RBC) [Mass/Vol] 32.3 g/dL 30.5 - 36.0 g/dL [facility] MCV (RBC) [Entitic vol] 93.1 fL 80.0 - 100.0 fL [facility] Monocytes (Bld) [#/Vol] 0.23 10*3/uL <0.87 k/uL [facility] Monocytes/100 WBC (Bld) 4.0 % [facility] Neutrophils (Bld) [#/Vol] 4.19 10*3/uL 1.45 - 7.50 k/uL [facility] Neutrophils/100 WBC (Bld) 73.0 % [facility] Nucleated RBC (Bld) [#/Vol] <0.01 k/uL [facility] Nucleated RBC/100 WBC (Bld) [Ratio] 0.0 /100 WBC [facility] Platelet mean volume (Bld) [Entitic vol] 10.8 fL 9.0 - 12.7 fL [facility] Platelets (Bld) [#/Vol] 185 10*3/uL 150 - 400 k/uL [facility] RBC (Bld) [#/Vol] 4.63 10*6/uL 3.90 - 5.2 0 m/uL [facility] WBC (Bld) [#/Vol] 5.74 10*3/uL 3.70 - 11. 00 k/uL [facility] ESR Westergren method (Bld) [Velocity]on 10-13-2023 ESR (Bld) [Velocity] 2 mm/h 0 - 20 mm/hr [facility] ANAIFSon 09-22-2023 Antinuclear Ab Screen Negative Normal Negative [facility] ([place]) Comment on above: Result Comment: Anti -nuclear antibody test is used as an aid in diagnosis of systemic autoimmune diseases. Where positive and clinically warranted, follow-up using disease-specific testing is recommended. Low positive titers are not uncommon with advanced age, certain chronic infections, and malignancies among others. Test methodology: Indirect fluorescence immunoassay (IFA) using HEp-2 cells. Performed By: [facility] [address] [place] [address] Nurse Practitioner: Carlos Mistry III, M.D. CLIA#: [id number] Performed By: #### A NAIFS #### [address] [address] .Auto Diffon 07-19-2023 Basophil, Absolute 0.0 10 3/mcL Normal 0.0-0.2 Counts include 234 beds at the [facility] ([place]) Comment on above: Performed By: #### A Lupillo, 356069, ENA1, 499862, 407276, TSH #### [place] [address] #### IFES, B12, RF, SPE, FOL #### [address] [address] Basophils/100 WBC (Bld) 0.3 % Normal 0.0-2.5 Counts Include 234 Beds At [facility] ([place]) Comment on above: Performed By: #### A 1C, 386924, ENA1, 610139, 007571, TSH #### [address] [address] #### IFES, B12, RF, SPE, FOL #### [address] [address] Eosinophil, Absolute 0.0 10 3/mcL Normal 0.0-0.4 [facility] ([place]) Comment on above: Performed By: #### A 1C, 383573, ENA1, 205948, 367429, TSH #### [address] [address] #### IFES, B12, RF, SPE, FOL #### [address] [address] Eosinophils/100 WBC (Bld) 1.0 % Normal 0.0-7.0 Counts Include 234 Beds At [facility] ([place] Comment on above: Performed By: #### A 1C, 886139, ENA1, 849293, 268328, TSH #### [address] [address] #### IFES, B12, RF, SPE, FOL #### [address] [address] Lymphocyte, Absolute 1.2 10 3/mcL Normal 0.8-3.9 [facility] ([place]) Comment on above: Performed By: #### A 1C, 887016, ENA1, 503511, 664950, TSH #### [address] [address] #### IFES, B12, RF, SPE, FOL #### [address] [address] Lymphocytes/100 WBC (Bld) 24.9 % Normal 10.0-50.0 Counts Include 234 Beds At [facility] ([place] Comment on above: Performed By: #### A 1C, 248658, ENA1, 982176, 084750, TSH #### [address] [address] #### IFES, B12, RF, SPE, FOL #### [address] [address] Monocyte, Absolute 0.2 10 3/mcL Normal 0.2-1.0 Counts include 234 beds at the [facility] ([place]) Comment on above: Performed By: #### A 1C, 790400, ENA1, 296385, 854374, TSH #### [address] [address] #### IFES, B12, RF, SPE, FOL #### [address] [address] Monocytes/100 WBC (Bld) 4.5 % Normal 1.7-13.0 Counts Include 234 Beds At [facility] ([place] Comment on above: Performed By: #### A 1C, 055531, ENA1, 703974, 846528, TSH #### [place] [address] [place], [place] [address] #### IFES, B12, RF, SPE, FOL #### [address] [address] Neutrophils/100 WBC (Bld) 69.3 % Normal 37.0-80.0 Counts Include 234 Beds At [facility] ([place] Comment on above: Performed By: #### A 1C, 178381, ENA1, 010557, 178077, TSH #### [address] [address] #### IFES, B12, RF, SPE, FOL #### [address] [address] .GFRon 07-19-2023 GFR Non- 60 ml/min/1.73sqm Normal Counts Include 234 Beds At [facility] ([place] Comment on above: Result Comment: GFR Population [...] square meters Performed By: #### A 1C, 307755, ENA1, 333312, 408902, TSH #### [address] [address] #### IFES, B12, RF, SPE, FOL #### [address] [address] GFR 72 ml/min/1.73sqm Normal Counts Include 234 Beds At [facility] ([place] Comment on above: Result Comment: GFR Population [...] square meters Performed By: #### A 1C, 728069, ENA1, 023961, 792026, TSH #### [address] [address] #### IFES, B12, RF, SPE, FOL #### [address] [address] .NEUABSon 07-19-2023 Neutrophil, Absolute 3.4 10 3/mcL Normal 2.9-6.2 [facility] ([place]) Comment on above: Performed By: #### Elizabeth 1C, 154040, ENA1, 112188, 971202, TSH #### [address] [address] #### IFES, B12, RF, SPE, FOL #### [address] [address] A1Con 07-19-2023 HbA1c (Bld) [Mass fraction] 5.0 % Normal 4.3-6.4 Counts Include 234 Beds At [facility] ([place] Comment on above: Performed By: #### Elizabeth 1C, 569387, ENA1, 474754, 846595, TSH #### [address] [address] #### IFES, B12, RF, SPE, FOL #### [address] [address] CBCon 07-19-2023 Erythrocyte distribution width (RBC) [Ratio] 12.9 % Normal 11.5-14.5 Counts Include 234 Beds At [facility] ([place] Comment on above: Performed By: #### Elizabeth 1C, 957528, ENA1, 010769, 581810, TSH #### [place] [address] #### IFES, B12, RF, SPE, FOL #### [place] [address] Hematocrit (Bld) [Volume fraction] 38.0 % Normal 37.0-47.0 Counts Include 234 Beds At [facility] ([place] Comment on above: Performed By: #### A 1C, 412688, ENA1, 785891, 747418, TSH #### [place] [address] #### IFES, B12, RF, SPE, FOL #### [place] [address] Hgb 12.9 G/dL Normal 12.0-16.0 Counts Include 234 Beds At [facility] ([place] Comment on above: Performed By: #### A 1C, 502071, ENA1, 129287, 551832, TSH #### [place] [address] #### IFES, B12, RF, SPE, FOL #### [place] [address] MCH (RBC) [Entitic mass] 30.4 pg Normal 27.0-31.2 Counts Include 234 Beds At [facility] ([place] Comment on above: Performed By: #### A 1C, 320669, ENA1, 197671, 776603, TSH #### [place] [address] #### IFES, B12, RF, SPE, FOL #### [place] [address] MCHC 34.1 G/dL Normal 33.0-37.0 Counts Include 234 Beds At [facility] ([place] Comment on above: Performed By: #### A 1C, 846352, ENA1, 449219, 738171, TSH #### [place] [address] #### IFES, B12, RF, SPE, FOL #### [place] [address] MCV (RBC) [Entitic vol] 89.2 fL Normal 80.0-94.0 Counts Include 234 Beds At [facility] ([place] Comment on above: Performed By: #### A 1C, 116034, ENA1, 938498, 675099, TSH #### [address] [address] #### IFES, B12, RF, SPE, FOL #### [address] [address] Platelet 138 10 3/mcL Normal 130-400 [facility] ([place]) Comment on above: Performed By: #### Elizabeth 1C, 035555, ENA1, 027017, 853693, TSH #### [place] [address] #### IFES, B12, RF, SPE, FOL #### [address] [address] Platelet mean volume (Bld) [Entitic vol] 9.5 fL Normal 7.4-10.4 [facility] ([place]) Comment on above: Performed By: #### Elizabeth 1C, 935081, ENA1, 265469, 924889, TSH #### [place] [address] #### IFES, B12, RF, SPE, FOL #### [address] [address] RBC 4.26 10 6/mcL Normal 4.20-5.40 [facility] ([place]) Comment on above: Performed By: #### Elizabeth 1C, 671694, ENA1, 351713, 496162, TSH #### [address] [address] #### IFES, B12, RF, SPE, FOL #### [address] [address] WBC 4.9 10 3/mcL Normal 4.6-10.8 [facility] ([place]) Comment on above: Performed By: #### Elizabeth 1C, 369939, ENA1, 919838, 210858, TSH #### [place] [id number] #### IFES, B12, RF, SPE, FOL #### [address] [address] CMPon 07-19-2023 Albumin Level 4.5 G/dL Normal 3.5-5.0 [facility] ([place]) Comment on above: Performed By: #### A 1C, 702810, ENA1, 872141, 054448, TSH #### [place] [address] #### IFES, B12, RF, SPE, FOL #### [address] [address] Albumin/Globulin [Mass ratio] 1.4 {ratio} Normal 1.1-2.5 Counts Include 234 Beds At [facility] ([place] Comment on above: Performed By: #### A 1C, 269860, ENA1, 595771, 457545, TSH #### [place] [address] #### IFES, B12, RF, SPE, FOL #### [address] [address] ALP [Catalytic activity/Vol] 67 U/L Normal 40-135 Counts Include 234 Beds At [facility] ([place] Comment on above: Performed By: #### A 1C, 395020, ENA1, 737872, 129049, TSH #### [place] [address] #### IFES, B12, RF, SPE, FOL #### [place] [id number] ALT [Catalytic activity/Vol] 25 U/L Normal 14-59 Counts Include 234 Beds At [facility] ([place] Comment on above: Performed By: #### A 1C, 602565, ENA1, 400907, 019112, TSH #### [place] [address] #### IFES, B12, RF, SPE, FOL #### [address] [address] AST [Catalytic activity/Vol] 18 U/L Normal 10-40 Counts Include 234 Beds At [facility] ([place]) Comment on above: Performed By: #### A 1C, 738143, ENA1, 283722, 369101, TSH #### [place] [address] #### IFES, B12, RF, SPE, FOL #### [place] [address] Bili Total 0.4 mg/dL Normal 0.2-1.0 Counts Include 234 Beds At [facility] ([place] Comment on above: Result Comment: Use of this assay is not recommended for patients undergoing treatment with eltrombopag due to the potential for falsely elevated results. Performed By: #### A 1C, 632854, ENA1, 810999, 004615, TSH #### [place] [address] #### IFES, B12, RF, SPE, FOL #### [place] [address] BUN/Creatinine Ratio 20 ratio Normal 7-27 Counts include 234 beds at the [facility] ([place] Comment on above: Performed By: #### A 1C, 374503, ENA1, 250639, 985316, TSH #### [place] [address] #### IFES, B12, RF, SPE, FOL #### [place] [address] Calcium [Mass/Vol] 9.4 mg/dL Normal 8.4-10.2 [facility] [place] Comment on above: Performed By: #### A 1C, 956647, ENA1, 826356, 761302, TSH #### [place] [address] #### IFES, B12, RF, SPE, FOL #### [place] [id number] Chloride [Moles/Vol] 106 mmol/L Normal 98-107 Counts include 234 beds at the [facility] ([place] Comment on above: Performed By: #### A 1C, 427344, ENA1, 798244, 918340, TSH #### [address] [address] #### IFES, B12, RF, SPE, FOL #### [address] [address] CO2 [Moles/Vol] 24 mmol/L Normal 22-29 [facility] [place] ([place]) Comment on above: Performed By: #### A 1C, 609659, ENA1, 481763, 668684, TSH #### [place] [address] #### IFES, B12, RF, SPE, FOL #### [address] [address] Creatinine [Mass/Vol] 1.01 mg/dL Normal 0.55-1.02 [facility] ([place]) Comment on above: Performed By: #### A 1C, 567027, ENA1, 550402, 271909, TSH #### [place] [address] #### IFES, B12, RF, SPE, FOL #### [address] [address] Electrolyte Balance 12.0 mEq/L Normal 4.0-15.0 [facility] ([place]) Comment on above: Performed By: #### A 1C, 180790, ENA1, 114341, 956209, TSH #### [place] [address] #### IFES, B12, RF, SPE, FOL #### [place] [address] Globulin 3.3 G/dL Normal Counts Include 234 Beds At [facility] ([place] Comment on above: Performed By: #### A 1C, 120526, ENA1, 088326, 434114, TSH #### [place] [address] #### IFES, B12, RF, SPE, FOL #### [address] [address] Glucose [Mass/Vol] 89 mg/dL Normal 70-105 [facility] [place] Comment on above: Performed By: #### A 1C, 012051, ENA1, 314912, 490622, TSH #### [address] [address] #### IFES, B12, RF, SPE, FOL #### [address] [address] Potassium [Moles/Vol] 4.0 mmol/L Normal 3.5-5.1 [facility] ([place]) Comment on above: Performed By: #### A 1C, 583774, ENA1, 905255, 817918, TSH #### [address] [address] #### IFES, B12, RF, SPE, FOL #### [address] [address] Sodium [Moles/Vol] 142 mmol/L Normal 136-145 [facility] [place] Comment on above: Performed By: #### A 1C, 376190, ENA1, 312659, 504796, TSH #### [address] [address] #### IFES, B12, RF, SPE, FOL #### [address] [address] Total Protein 7.8 G/dL Normal 6.4-8.2 [facility] ([place]) Comment on above: Performed By: #### A 1C, 403466, ENA1, 380446, 469808, TSH #### [address] [address] #### IFES, B12, RF, SPE, FOL #### [address] [address] Urea nitrogen [Mass/Vol] 20 mg/dL High 7-18 Counts Include 234 Beds At [facility] ([place] Comment on above: Performed By: #### A 1C, 091310, ENA1, [id number], [id number], TSH #### [address] [address] #### IFES, B12, RF, SPE, FOL #### [address] [address] Neal 07-19-2023 Ferritin [Mass/Vol] 51.0 ng/mL Normal 8.0-252.0 [facility] ([place]) Comment on above: Performed By: #### A 1C, 527716, ENA1, 344665, 798653, TSH #### [address] [address] #### IFES, B12, RF, SPE, FOL #### [address] [address] LIPIDon 07-19-2023 Cholesterol [Mass/Vol] 180 mg/dL Normal 0-200 Counts Include [facility] ([place]) Comment on above: Result Comment: Chol esterol Reference Interval: Less than 200 Desirable 200-239 Borderline high risk 240 and above High risk Performed By: #### A 1C, 926216, ENA1, 670430, 228291, TSH #### [place] [address] #### IFES, B12, RF, SPE, FOL #### [address] [address] Cholesterol in HDL [Mass/Vol] 55 mg/dL Normal 40-60 Counts Include [address] [facility] ([place]) Comment on above: Performed By: #### A 1C, 660772, ENA1, 245516, 187823, TSH #### [address] [address] #### IFES, B12, RF, SPE, FOL #### [address] [address] Cholesterol in LDL [Mass/Vol] 112 mg/dL Normal 0-130 Counts Include [address] [facility] ([place]) Comment on above: Performed By: #### A 1C, 749662, ENA1, 645848, 598406, TSH #### [address] [address] #### IFES, B12, RF, SPE, FOL #### [address] [address] Triglyceride [Mass/Vol] 63 mg/dL Normal 0-150 Counts Include [address] [facility] ([place]) Comment on above: Result Comment: Trig lyceride Reference Interval: Less than 150 Normal 150-199 Borderline high risk 200-499 High risk 500 or higher Very high risk Performed By: #### A 1C, 356170, ENA1, 859889, 705152, TSH #### [address] [address] #### IFES, B12, RF, SPE, FOL #### [address] [address] TSHon 07-19-2023 TSH Qn 1.84 m[IU]/L Normal 0.36-3.74 [facility] ([place]) Comment on above: Performed By: #### A 1C, 282436, ENA1, 839815, 334133, TSH #### [address] [address] #### IFES, B12, RF, SPE, FOL #### [address] [address] aTPOon 07-19-2023 anti-Thyroid Peroxidase <28 Normal 0-60 Counts Include [address] [facility] ([place]) Comment on above: Result Comment: No te - New Reference Range in effect 20 Performed By: #### A 1C, 051839, ENA1, 028317, 646232, TSH #### [address] [address] #### IFES, B12, RF, SPE, FOL #### [address] [address] BRITTON SCREENINGon 12-08-2022 [facility] Vitamin D 25 Hydroxyon 05-28 Vitamin D 25 Hydroxy 53.8 ng/mL Normal 31.0-80.0 [facility] Comment on above: Performed By: #### V ITD #### [facility] Routine Lab [address] [place], [place] [address] KNEE COMP 4 OR MORE [...] REINOSO M.D. Signed By: EDY REINOSO M.D. [facility] Vital Signs Date Time Vital Sign Value Performing Clinician Flori anahi 07-22-2025 12:51-0400 Body height 172.[address] Torres Yao MD Work Phone: [facility] 07-22-2025 12:51-0400 Body mass index (BMI) [Ratio] 28.5 kg/m2 Dr. Torres Yao MD Work Phone: [facility] 07-22-2025 12:51-0400 Body weight 85.[address] Torres Yao MD Work Phone: [facility] 06-11-2025 10:33-0400 Body temperature 97.3 [degF] Dr. Torres Yao MD Work Phone: [facility] 06-11-2025 10:33-0400 Diastolic blood pressure 77 mm[Hg] Dr. Torres Yao MD Work Phone: [facility] 06-11-2025 10:33-0400 Heart rate 47 /min Dr. Torres Yao MD Work Phone: 0(572)227-207696 [place] [address] 06-11-2025 10:33-0400 Respiratory rate 16 /min Dr. Torres Yao MD Work Phone: 3(963)725-673496 [place] [address] 06-11-2025 10:33-0400 SaO2% (BldA) [Mass fraction] 96 % Dr. Torres Yao MD Work Phone: 9(466)662-691896 [place] [address] 06-11-2025 10:33-0400 Systolic blood pressure 100 mm[Hg] Dr. Torres Yao MD Work Phone: 4(287)125-481796 [place] [address] 06-11-2025 05:57-0400 Body height 172.[address] Torres Yao MD Work Phone: 4(375)210-226196 [place] [address] 06-11-2025 05:57-0400 Body mass index (BMI) [Ratio] 29.1 kg/m2 Dr. Torres Yao MD Work Phone: 1(625)181-177096 [place] [address] 06-11-2025 05:57-0400 Body weight [address] Torres Yao MD Work Phone: 8(525)071-745896 [place] [address] 05-22-2025 10:24-0400 Body height 172.[address] Torres Yao MD Work Phone: 0(920)475-793696 [place] [address] 05-22-2025 10:24-0400 Body mass index (BMI) [Ratio] 28.4 kg/m2 Dr. Torres Yao MD Work Phone: 6(361)352-373065 [place] [address] 05-22-2025 10:24-0400 Body weight 84.[address] Torres Yao MD Work Phone: [facility] 05-16-2025 13:36-0400 Body mass index (BMI) [Ratio] 28.43 kg/m2 Torres Yao MD Work Phone: [facility] 05-16-2025 13:36-0400 Body weight 84.82 kg Torres Yao MD Work Phone: [facility] 05-16-2025 13:36-0400 Diastolic blood pressure 72 mm[Hg] Torres Yao MD Work Phone: [facility] 05-16-2025 13:36-0400 Heart rate 77 /min Torres Yao MD Work Phone: [facility] 05-16-2025 13:36-0400 SaO2% (BldA) [Mass fraction] 99 % Torres Yao MD Work Phone: [facility] 05-16-2025 13:36-0400 Systolic blood pressure 120 mm[Hg] Torres Yao MD Work Phone: [facility] 05-15-2025 11:16-0400 Diastolic blood pressure 83 mm[Hg] Freeman Sarabia PA-C Work Phone: [facility] 05-15-2025 11:16-0400 Heart rate 74 /min Freeman Sarabia PA-C Work Phone: [facility] 05-15-2025 11:16-0400 Respiratory rate 16 /min Freeman Sarabia PA-C Work Phone: [facility] 05-15-2025 11:16-0400 SaO2% (BldA) [Mass fraction] 100 % Freeman Sarabia PA-C Work Phone: [facility] 05-15-2025 11:16-0400 Systolic blood pressure 132 mm[Hg] Freeman Sarabia PA-C Work Phone: [facility] 05-05-2025 12:58-0400 Diastolic blood pressure 66 mm[Hg] Ellen Suppan [employer] OFF[employer]ER[employer] WORK[employer] Work Phone: [facility] 05-05-2025 12:58-0400 Systolic blood pressure 110 mm[Hg] Ellen Suppan [employer] OFFICER.[employer] WORKER Work Phone: [facility] 05-05-2025 12:44-0400 Body mass index (BMI) [Ratio] 29.8 kg/m2 Ellen Suppan [employer]NAL OFFICER.[employer] WORKER Work Phone: [facility] 05-05-2025 12:44-0400 Body temperature 97.59 [degF] Ellen Suppan [employer]NAL OFFICER.[employer] WORKER Work Phone: [facility] 05-05-2025 12:44-0400 Body weight 88.91 kg Ellen Marco Asukhdev [employer] OFFICER.[employer] WORKER Work Phone: [facility] 05-05-2025 12:44-0400 Heart rate 67 /min Ellen Marco Asukhdev [employer] OFFICER.[employer] WORKER Work Phone: [facility] 05-05-2025 12:44-0400 SaO2% (BldA) [Mass fraction] 99 % Ellen Marco Asukhdev [employer]NAL OFFICER.[employer] WORKER Work Phone: [facility] 04-21-2025 11:00-0400 Body height 172.[address] Torres Yao MD Work Phone: [facility] 04-21-2025 11:00-0400 Body mass index (BMI) [Ratio] 29.5 kg/m2 Dr. Torres Yao MD Work Phone: [facility] 04-21-2025 11:00-0400 Body weight 88.[address] Torres Yao MD Work Phone: [facility] 03-14-2025 10:32-0400 Diastolic blood pressure 78 mm[Hg] Torres Yao MD Work Phone: [facility] 03-14-2025 10:32-0400 Systolic blood pressure 132 mm[Hg] Torres Yao MD Work Phone: [facility] 03-14-2025 10:08-0400 Body mass index (BMI) [Ratio] 27.83 kg/m2 Torres Yao MD Work Phone: [facility] 03-14-2025 10:08-0400 Body weight 83.01 kg Torres Yao MD Work Phone: [facility] 03-14-2025 10:08-0400 Heart rate 97 /min Torres Yao MD Work Phone: [facility] 03-14-2025 10:08-0400 SaO2% (BldA) [Mass fraction] 99 % Torres Yao MD Work Phone: [facility] 02-14-2025 13:13-0400 Body mass index (BMI) [Ratio] 28.13 kg/m2 Freeman Sarabia PA-C Work Phone: [facility] 02-14-2025 13:13-0400 Body weight 83.92 kg Freeman Sarabia PA-C Work Phone: [facility] 02-14-2025 13:13-0400 Diastolic blood pressure 88 mm[Hg] Freeman Sarabia PA-C Work Phone: [facility] 02-14-2025 13:13-0400 Heart rate 84 /min Freeman Sarabia PA-C Work Phone: [facility] 02-14-2025 13:13-0400 Respiratory rate 18 /min Freeman Sarabia PA-C Work Phone: [facility] 02-14-2025 13:13-0400 SaO2% (BldA) [Mass fraction] 99 % Freeman Sarabia PA-C Work Phone: [facility] 02-14-2025 13:13-0400 Systolic blood pressure 142 mm[Hg] Freeman Sarabia PA-C Work Phone: [facility] 11-22-2024 11:27-0500 Body mass index (BMI) [Ratio] 27.67 kg/m2 Freeman Sarabia PA-C Work Phone: [facility] 11-22-2024 11:27-0500 Body weight 82.56 kg Freeman Sarabia PA-C Work Phone: [facility] 11-22-2024 11:27-0500 Diastolic blood pressure 90 mm[Hg] Freeman Sarabia PA-C Work Phone: [facility] 11-22-2024 11:27-0500 Heart rate 71 /min Freeman Sarabia PA-C Work Phone: [facility] 11-22-2024 11:27-0500 Respiratory rate 18 /min Freeman Sarabia PA-C Work Phone: [facility] 11-22-2024 11:27-0500 SaO2% (BldA) [Mass fraction] 100 % Freeman Sarabia PA-C Work Phone: [facility] 11-22-2024 11:27-0500 Systolic blood pressure 133 mm[Hg] Freeman Sarabia PA-C Work Phone: [facility] 09-17-2024 13:25-0500 Diastolic blood pressure 70 mm[Hg] Isaac Cannon MD Work Phone: [facility] 09-17-2024 13:25-0500 Heart rate 69 /min Isaac Cannon MD Work Phone: [facility] 09-17-2024 13:25-0500 Respiratory rate 18 /min Isaac Cannon MD Work Phone: [facility] 09-17-2024 13:25-0500 Systolic blood pressure 114 mm[Hg] Isaac Cannon MD Work Phone: [facility] 09-17-2024 13:00-0500 Body temperature 97.2 [degF] Isaac Cannon MD Work Phone: [facility] 09-12-2024 10:08-0500 Body mass index (BMI) [Ratio] 27.72 kg/m2 Ellen Suppan [employer] OFFICER.[employer] WORKER Work Phone: [facility] 09-12-2024 10:08-0500 Body weight 82.7 kg Ellen Suppan [employer]NAL OFFICER.[employer] WORKER Work Phone: [facility] 09-12-2024 10:08-0500 Diastolic blood pressure 78 mm[Hg] Ellen Suppan [employer]NAL OFFICER.[employer] WORKER Work Phone: [facility] 09-12-2024 10:08-0500 Heart rate 76 /min Ellen Suppan PENAL OFFICER.[employer] WORKER Work Phone: [facility] 09-12-2024 10:08-0500 Respiratory rate 16 /min Ellen Suppan PENAL OFFICER.[employer] WORKER Work Phone: [facility] 09-12-2024 10:08-0500 SaO2% (BldA) [Mass fraction] 85 % Ellen Suppan PENAL OFFICER.[employer] WORKER Work Phone: [facility] 09-12-2024 10:08-0500 Systolic blood pressure 134 mm[Hg] Ellen Suppan PENAL OFFICER.[employer] WORKER Work Phone: [facility] 08-28-2024 13:17-0400 Body mass index (BMI) [Ratio] 28.28 kg/m2 Freeman Sarabia PA-C Work Phone: [facility] 08-28-2024 13:17-0400 Body weight 84.37 kg Freeman Saarbia PA-C Work Phone: [facility] 08-28-2024 13:17-0400 Diastolic blood pressure 88 mm[Hg] Freeman Sarabia PA-C Work Phone: [facility] 08-28-2024 13:17-0400 Heart rate 73 /min Freeman Sarabia PA-C Work Phone: [facility] 08-28-2024 13:17-0400 Respiratory rate 18 /min Freeman Sarabia PA-C Work Phone: [facility] 08-28-2024 13:17-0400 SaO2% (BldA) [Mass fraction] 99 % Freeman Sarabia PA-C Work Phone: [facility] 08-28-2024 13:17-0400 Systolic blood pressure 134 mm[Hg] Freeman Sarabia PA-C Work Phone: [facility] 06-13-2024 11:12-0400 Body mass index (BMI) [Ratio] 28.28 kg/m2 Ellen Suppan [employer]NAL OFFICER.[employer] WORKER Work Phone: [facility] 06-13-2024 11:12-0400 Body weight 84.37 kg Ellen Suppan PENAL OFFICER.[employer] WORKER Work Phone: [facility] 06-13-2024 11:12-0400 Diastolic blood pressure 74 mm[Hg] Ellen Suppan PENAL OFFICER.[employer] WORKER Work Phone: [facility] 06-13-2024 11:12-0400 Heart rate 78 /min Ellen Rene [employer]NAL OFFICER.[employer] WORKER Work Phone: [facility] 06-13-2024 11:12-0400 Respiratory rate 16 /min Ellen Stricklandan [employer]NAL OFFICER.[employer] WORKER Work Phone: [facility] 06-13-2024 11:12-0400 SaO2% (BldA) [Mass fraction] 99 % Ellen Suppan PENAL OFFICER.[employer] WORKER Work Phone: [facility] 06-13-2024 11:12-0400 Systolic blood pressure 122 mm[Hg] Ellen Suppan PENAL OFFICER.[employer] WORKER Work Phone: [facility] 05-23-2024 13:43-0400 Body height 172.7 cm Freeman DUKE-C Work Phone: [facility] 05-23-2024 13:43-0400 Body mass index (BMI) [Ratio] 30.11 kg/m2 Freeman DUKE-C Work Phone: [facility] 05-23-2024 13:43-0400 Body temperature 97.3 [degF] Freeman DUKE-C Work Phone: [facility] 05-23-2024 13:43-0400 Body weight 89.81 kg Freeman DUKE-C Work Phone: [facility] 05-23-2024 13:43-0400 Diastolic blood pressure 79 mm[Hg] Freeman DUKE-C Work Phone: [facility] 05-23-2024 13:43-0400 Heart rate 84 /min Freeman DUKE-C Work Phone: [facility] 05-23-2024 13:43-0400 Respiratory rate 20 /min Freeman Sarabia PA-C Work Phone: [facility] 05-23-2024 13:43-0400 SaO2% (BldA) [Mass fraction] 94 % Freeman DUKE-C Work Phone: [facility] 05-23-2024 13:43-0400 Systolic blood pressure 120 mm[Hg] Freeman Sarabia PA-C Work Phone: [facility] 05-10-2024 11:06-0400 Body mass index (BMI) [Ratio] 28.89 kg/m2 Ellen Suppan [employer]NAL OFFICER.[employer] WORKER Work Phone: [facility] 05-10-2024 11:06-0400 Body weight 86.18 kg Ellen Suppan PENAL OFFICER.[employer] WORKER Work Phone: [facility] 05-10-2024 11:06-0400 Diastolic blood pressure 76 mm[Hg] Ellen Suppan PENAL OFFICER.[employer] WORKER Work Phone: [facility] 05-10-2024 11:06-0400 Heart rate 81 /min Ellen Suppan PENAL OFFICER.[employer] WORKER Work Phone: [facility] 05-10-2024 11:06-0400 SaO2% (BldA) [Mass fraction] 100 % Ellen Suppan PENAL OFFICER.[employer] WORKER Work Phone: [facility] 05-10-2024 11:06-0400 Systolic blood pressure 118 mm[Hg] Ellen Suppan PENAL OFFICER.[employer] WORKER Work Phone: [facility] 03-04-2024 13:38-0400 Body mass index (BMI) [Ratio] 28.07 kg/m2 Yomi Suarez MD Work Phone: [facility] 03-04-2024 13:38-0400 Body weight 83.73 kg Yomi Suarez MD Work Phone: [facility] 03-04-2024 13:38-0400 Diastolic blood pressure 62 mm[Hg] Yomi Suarez MD Work Phone: [facility] 03-04-2024 13:38-0400 Heart rate 68 /min Yomi Suarez MD Work Phone: [facility] 03-04-2024 13:38-0400 Respiratory rate 16 /min Yomi Suarez MD Work Phone: [facility] 03-04-2024 13:38-0400 SaO2% (BldA) [Mass fraction] 98 % Yomi Suarez MD Work Phone: [facility] 03-04-2024 13:38-0400 Systolic blood pressure 100 mm[Hg] Yomi Suarez MD Work Phone: [facility] 02-29-2024 17:38-0400 Body height 172.[address] ANABEL TOLEDO MD [facility] 02-29-2024 17:38-0400 Body temperature 96.98 [degF] DR ANABEL TOLEDO MD [facility] 02-29-2024 17:38-0400 Body weight 84.[address] ANABEL TOLEDO MD [facility] 02-29-2024 17:38-0400 Diastolic Blood Pressure Non-Invasive 84 mm[Hg] DR ANABEL TOLEDO MD [facility] 02-29-2024 17:38-0400 Heart rate 90 /min DR ANABEL TOLEDO MD [facility] 02-29-2024 17:38-0400 Respiratory rate 18 /min DR ANABEL TOLEDO MD [facility] 02-29-2024 17:38-0400 Systolic Blood Pressure Non-Invasive 130 mm[Hg] DR ANABEL TOLEDO MD [facility] 02-07-2024 13:10-0400 Body height 172.7 cm Min Velazco MD Work Phone: [facility] 02-07-2024 13:10-0400 Body temperature 97.59 [degF] Min Velazco MD Work Phone: [facility] 02-07-2024 13:10-0400 Body weight 83.01 kg Min Velazco MD Work Phone: [facility] 02-07-2024 13:10-0400 Diastolic blood pressure 84 mm[Hg] Min Velazco MD Work Phone: [facility] 02-07-2024 13:10-0400 Heart rate 74 /min Min Velazco MD Work Phone: [facility] 02-07-2024 13:10-0400 Respiratory rate 20 /min Min Velazco MD Work Phone: [facility] 02-07-2024 13:10-0400 SaO2% (BldA) [Mass fraction] 100 % Min Velazco MD Work Phone: [facility] 02-07-2024 13:10-0400 Systolic blood pressure 128 mm[Hg] Min Velazco MD Work Phone: [facility] 01-29-2024 14:28-0400 Body height 172.7 cm Torres Yao MD Work Phone: [facility] 01-29-2024 14:28-0400 Body weight 83.01 kg Torres Yao MD Work Phone: [facility] 01-29-2024 14:28-0400 Diastolic blood pressure 68 mm[Hg] Torres Yao MD Work Phone: [facility] 01-29-2024 14:28-0400 Heart rate 85 /min Torres Yao MD Work Phone: [facility] 01-29-2024 14:28-0400 Systolic blood pressure 99 mm[Hg] Torres Yao MD Work Phone: [facility] 01-04-2024 14:53-0500 Diastolic blood pressure 76 mm[Hg] Min Velazco MD Work Phone: [facility] 01-04-2024 14:53-0500 Heart rate 85 /min Min Velazco MD Work Phone: [facility] 01-04-2024 14:53-0500 Respiratory rate 18 /min Min Velazco MD Work Phone: [facility] 01-04-2024 14:53-0500 Systolic blood pressure 114 mm[Hg] Min Velazco MD Work Phone: [facility] 01-04-2024 14:41-0500 Body temperature 96.49 [degF] Min Velazco MD Work Phone: [facility] 12-22-2023 13:04-0500 Body temperature 97.81 [degF] Freeman Sarabia PA-C Work Phone: [facility] 12-22-2023 13:04-0500 Diastolic blood pressure 77 mm[Hg] Freeman Sarabia PA-C Work Phone: [facility] 12-22-2023 13:04-0500 Heart rate 70 /min Freeman Sarabia PA-C Work Phone: [facility] 12-22-2023 13:04-0500 Respiratory rate 18 /min Freeman Sarabia PA-C Work Phone: [facility] 12-22-2023 13:04-0500 SaO2% (BldA) [Mass fraction] 100 % Freeman Sarabia PA-C Work Phone: [facility] 12-22-2023 13:04-0500 Systolic blood pressure 121 mm[Hg] Freeman Sarabia PA-C Work Phone: [facility] 10-13-2023 14:07-0500 Body weight 84.37 kg Torres Yao MD Work Phone: [facility] 10-13-2023 14:07-0500 Diastolic blood pressure 72 mm[Hg] Torres Yao MD Work Phone: [facility] 10-13-2023 14:07-0500 Heart rate 71 /min Torres Yao MD Work Phone: [facility] 10-13-2023 14:07-0500 SaO2% (BldA) [Mass fraction] 100 % Torres Yao MD Work Phone: [facility] 10-13-2023 14:07-0500 Systolic blood pressure 102 mm[Hg] Torres Yao MD Work Phone: [facility] 09-28-2023 14:06-0500 Body height 172.7 cm Freeman DUKE-C Work Phone: [facility] 09-28-2023 14:06-0500 Body temperature 97 [degF] Freeman Sarabia PA-C Work Phone: [facility] 09-28-2023 14:06-0500 Body weight 85.28 kg Freeman Sarabia PA-C Work Phone: [facility] 09-28-2023 14:06-0500 Diastolic blood pressure 75 mm[Hg] Freeman Sarabia PA-C Work Phone: [facility] 09-28-2023 14:06-0500 Heart rate 71 /min Freeman DUKE-C Work Phone: [facility] 09-28-2023 14:06-0500 Respiratory rate 18 /min Freeman Sarabia PA-C Work Phone: [facility] 09-28-2023 14:06-0500 SaO2% (BldA) [Mass fraction] 100 % Freeman Sarabia PA-C Work Phone: [facility] 09-28-2023 14:06-0500 Systolic blood pressure 115 mm[Hg] Freeman Sarabia PA-C Work Phone: [facility] 08-29-2023 15:13-0400 Diastolic blood pressure 74 mm[Hg] Min Velazco MD Work Phone: [facility] 08-29-2023 15:13-0400 Heart rate 62 /min Min Velazco MD Work Phone: [facility] 08-29-2023 15:13-0400 Respiratory rate 18 /min Min Velazco MD Work Phone: [facility] 08-29-2023 15:13-0400 Systolic blood pressure 104 mm[Hg] Min Velazco MD Work Phone: [facility] 08-29-2023 14:53-0400 Body temperature 96.8 [degF] Min Velazco MD Work Phone: [facility] 08-25-2023 09:07-0400 Body temperature 97.2 [degF] Freeman Sarabia PA-C Work Phone: [facility] 08-25-2023 09:07-0400 Diastolic blood pressure 72 mm[Hg] Freeman Sarabia PA-C Work Phone: [facility] 08-25-2023 09:07-0400 Heart rate 68 /min Freeman Sarabia PA-C Work Phone: [facility] 08-25-2023 09:07-0400 Respiratory rate 18 /min Freeman Sarabia PA-C Work Phone: [facility] 08-25-2023 09:07-0400 SaO2% (BldA) [Mass fraction] 100 % Freeman Sarabia PA-C Work Phone: [facility] 08-25-2023 09:07-0400 Systolic blood pressure 109 mm[Hg] Freeman Sarabia PA-C Work Phone: [facility] 07-13-2023 13:33-0400 Body temperature 97.3 [degF] Freeman Sarabia PA-C Work Phone: [facility] 07-13-2023 13:33-0400 Diastolic blood pressure 76 mm[Hg] Freeman Sarabia PA-C Work Phone: [facility] 07-13-2023 13:33-0400 Heart rate 64 /min Freeman Sarabia PA-C Work Phone: [facility] 07-13-2023 13:33-0400 Respiratory rate 18 /min Freeman Sarabia PA-C Work Phone: [facility] 07-13-2023 13:33-0400 SaO2% (BldA) [Mass fraction] 100 % Freeman Sarabia PA-C Work Phone: [facility] 07-13-2023 13:33-0400 Systolic blood pressure 119 mm[Hg] Freeman Sarabia PA-C Work Phone: [facility] 06-01-2023 16:28-0400 Diastolic blood pressure 68 mm[Hg] Min Velazco MD Work Phone: [facility] 06-01-2023 16:28-0400 Heart rate 60 /min Min Velazco MD Work Phone: [facility] 06-01-2023 16:28-0400 Respiratory rate 18 /min Min Velazco MD Work Phone: [facility] 06-01-2023 16:28-0400 Systolic blood pressure 114 mm[Hg] Min Velazco MD Work Phone: [facility] 06-01-2023 16:19-0400 Body temperature 96.6 [degF] Min Velazco MD Work Phone: [facility] 05-26-2023 13:28-0400 Body temperature 97.59 [degF] Freeman Sarabia PA-C Work Phone: [facility] 05-26-2023 13:28-0400 Diastolic blood pressure 85 mm[Hg] Freeman Sarabia PA-C Work Phone: [facility] 05-26-2023 13:28-0400 Heart rate 74 /min Freeman Sarabia PA-C Work Phone: [facility] 05-26-2023 13:28-0400 Respiratory rate 18 /min Freeman Sarabia PA-C Work Phone: [facility] 05-26-2023 13:28-0400 SaO2% (BldA) [Mass fraction] 100 % Freeman Sarabia PA-C Work Phone: [facility] 05-26-2023 13:28-0400 Systolic blood pressure 136 mm[Hg] Freeman Sarabia PA-C Work Phone: [facility] 03-03-2023 09:32-0400 Body temperature 97.59 [degF] Freeman Sarabia PA-C Work Phone: [facility] 03-03-2023 09:32-0400 Diastolic blood pressure 79 mm[Hg] Freeman DUKE-C Work Phone: [facility] 03-03-2023 09:32-0400 Heart rate 83 /min Freeman DUKE-C Work Phone: [facility] 03-03-2023 09:32-0400 Respiratory rate 18 /min Freeman DUKE-C Work Phone: [facility] 03-03-2023 09:32-0400 SaO2% (BldA) [Mass fraction] 100 % Freeman DUKE-C Work Phone: [facility] 03-03-2023 09:32-0400 Systolic blood pressure 123 mm[Hg] Freeman DUKE-C Work Phone: [facility] 02-02-2023 10:35-0400 Diastolic blood pressure 66 mm[Hg] Min Velazco MD Work Phone: [facility] 02-02-2023 10:35-0400 Heart rate 66 /min Min Velazco MD Work Phone: [facility] 02-02-2023 10:35-0400 Respiratory rate 18 /min Min Velazco MD Work Phone: [facility] 02-02-2023 10:35-0400 Systolic blood pressure 107 mm[Hg] Min Velazco MD Work Phone: [facility] 02-02-2023 10:29-0400 Body temperature 97.9 [degF] Min Velazco MD Work Phone: [facility] 01-20-2023 09:28-0400 Body temperature 97 [degF] Freeman DUKE-C Work Phone: [facility] 01-20-2023 09:28-0400 Diastolic blood pressure 66 mm[Hg] Freeman DUKE-C Work Phone: [facility] 01-20-2023 09:28-0400 Heart rate 60 /min Freeman Sarabia PA-C Work Phone: [facility] 01-20-2023 09:28-0400 Respiratory rate 18 /min Freeman Sarabia PA-C Work Phone: [facility] 01-20-2023 09:28-0400 SaO2% (BldA) [Mass fraction] 100 % Freeman DUKE-C Work Phone: [facility] 01-20-2023 09:28-0400 Systolic blood pressure 116 mm[Hg] Freeman DUKE-C Work Phone: [facility] 11-30-2022 13:32-0500 Body height 172.7 cm Min Velazco MD Work Phone: [facility] 11-30-2022 13:32-0500 Body temperature 97.11 [degF] Min Velazoc MD Work Phone: [facility] 11-30-2022 13:32-0500 Body weight 88.91 kg Min Velazco MD Work Phone: [facility] 11-30-2022 13:32-0500 Diastolic blood pressure 67 mm[Hg] Min Velazco MD Work Phone: [facility] 11-30-2022 13:32-0500 Heart rate 67 /min Min Velazco MD Work Phone: [facility] 11-30-2022 13:32-0500 Respiratory rate 20 /min Min Velazco MD Work Phone: [facility] 11-30-2022 13:32-0500 SaO2% (BldA) [Mass fraction] 100 % Min Velazco MD Work Phone: [facility] 11-30-2022 13:32-0500 Systolic blood pressure 111 mm[Hg] Min Velazco MD Work Phone: [facility] 10-13-2022 13:32-0500 Body height 172.7 cm Freeman IBARRAC Work Phone: [facility] 10-13-2022 13:32-0500 Body temperature 97.59 [degF] Freeman DUKE-C Work Phone: [facility] 10-13-2022 13:32-0500 Body weight 88.91 kg Freeman DUKE-C Work Phone: [facility] 10-13-2022 13:32-0500 Diastolic blood pressure 67 mm[Hg] Freeman DUKE-C Work Phone: [facility] 10-13-2022 13:32-0500 Heart rate 64 /min Freeman IBARRAC Work Phone: [facility] 10-13-2022 13:32-0500 Respiratory rate 18 /min Freeman DUKE-C Work Phone: [facility] 10-13-2022 13:32-0500 SaO2% (BldA) [Mass fraction] 100 % Freeman IBARRAC Work Phone: [facility] 10-13-2022 13:32-0500 Systolic blood pressure 115 mm[Hg] Freeman DUKE-C Work Phone: [facility] 09-15-2022 11:03-0500 Diastolic blood pressure 66 mm[Hg] Min Velazco MD Work Phone: [facility] 09-15-2022 11:03-0500 Heart rate 62 /min Min Velazco MD Work Phone: [facility] 09-15-2022 11:03-0500 Respiratory rate 20 /min Min Velazco MD Work Phone: [facility] 09-15-2022 11:03-0500 Systolic blood pressure 111 mm[Hg] Min Velazco MD Work Phone: [facility] 09-15-2022 10:53-0500 Body temperature 97 [degF] Min Velazco MD Work Phone: [facility] 09-01-2022 14:06-0400 Body height 172.7 cm Freeman Sarabia PA-C Work Phone: [facility] 09-01-2022 14:06-0400 Body temperature 97.2 [degF] Freeman Sarabia PA-C Work Phone: [facility] 09-01-2022 14:06-0400 Body weight 89.81 kg Freeman Sarabia PA-C Work Phone: [facility] 09-01-2022 14:06-0400 Diastolic blood pressure 73 mm[Hg] Freeman Sarabia PA-C Work Phone: [facility] 09-01-2022 14:06-0400 Heart rate 73 /min Freeman Sarabia PA-C Work Phone: [facility] 09-01-2022 14:06-0400 Respiratory rate 20 /min Freeman Sarabia PA-C Work Phone: [facility] 09-01-2022 14:06-0400 SaO2% (BldA) [Mass fraction] 100 % Freeman Sarabia PA-C Work Phone: [facility] 09-01-2022 14:06-0400 Systolic blood pressure 119 mm[Hg] Freeman Sarabia PA-C Work Phone: [facility] 07-20-2022 14:19-0400 Body height 172.7 cm Freeman Sarabia PA-C Work Phone: [facility] 07-20-2022 14:19-0400 Body temperature 96.91 [degF] Freeman Sarabia PA-C Work Phone: [facility] 07-20-2022 14:19-0400 Body weight 89.81 kg Freeman Sarabia PA-C Work Phone: [facility] 07-20-2022 14:19-0400 Diastolic blood pressure 64 mm[Hg] Freeman Sarabia PA-C Work Phone: [facility] 07-20-2022 14:19-0400 Heart rate 63 /min Freeman Sarabia PA-C Work Phone: [facility] 07-20-2022 14:19-0400 Respiratory rate 20 /min Freeman Sarabia PA-C Work Phone: [facility] 07-20-2022 14:19-0400 SaO2% (BldA) [Mass fraction] 99 % Freeman Sarabia PA-C Work Phone: [facility] 07-20-2022 14:19-0400 Systolic blood pressure 103 mm[Hg] Freeman Sarabia PA-C Work Phone: [facility] 06-09-2022 13:38-0400 Body height 172.7 cm Freeman Sarabia PA-C Work Phone: [facility] 06-09-2022 13:38-0400 Body temperature 97.2 [degF] Freeman Sarabia PA-C Work Phone: [facility] 06-09-2022 13:38-0400 Body weight 89.81 kg Freeman Sarabia PA-C Work Phone: [facility] 06-09-2022 13:38-0400 Diastolic blood pressure 67 mm[Hg] Freeman Sarabia PA-C Work Phone: [facility] 06-09-2022 13:38-0400 Heart rate 61 /min Freeman Sarabia PA-C Work Phone: [facility] 06-09-2022 13:38-0400 Respiratory rate 20 /min Freeman Sarabia PA-C Work Phone: [facility] 06-09-2022 13:38-0400 SaO2% (BldA) [Mass fraction] 98 % Freeman Sarabia PA-C Work Phone: [facility] 06-09-2022 13:38-0400 Systolic blood pressure 105 mm[Hg] Freeman Sarabia PA-C Work Phone: [facility] 03-07-2022 13:46-0400 Body weight 89.81 kg Torres Yao MD Work Phone: [facility] 03-07-2022 13:46-0400 Diastolic blood pressure 70 mm[Hg] Torres Yao MD Work Phone: [facility] 03-07-2022 13:46-0400 Heart rate 76 /min Torres Yao MD Work Phone: [facility] 03-07-2022 13:46-0400 Systolic blood pressure 108 mm[Hg] Torres Yao MD Work Phone: [facility] 01-08-2022 19:56-0500 Body temperature 98.42 [degF] KANE GUT DO [facility] 01-08-2022 19:56-0500 Diastolic blood pressure 79 mm[Hg] KANE GUT DO [facility] 01-08-2022 19:56-0500 Heart rate 74 /min KANE GUT DO [facility] 01-08-2022 19:56-0500 Mean blood pressure 96 mm[Hg] KANE GUT DO [facility] 01-08-2022 19:56-0500 Respiratory rate 19 /min KANE GUT DO [facility] 01-08-2022 19:56-0500 Systolic blood pressure 130 mm[Hg] KANE GUT DO [facility] 08-13-2021 14:37-0400 Body temperature 98.42 [degF] KERRY NUNES DO [facility] 08-13-2021 14:37-0400 Diastolic blood pressure 76 mm[Hg] KERRY NUNES DO [facility] 08-13-2021 14:37-0400 Heart rate 73 /min KERRY NUNES DO [facility] 08-13-2021 14:37-0400 Mean blood pressure 92 mm[Hg] KERRY NUNES DO [facility] 08-13-2021 14:37-0400 Respiratory rate 18 /min KERRY NUNES DO [facility] 08-13-2021 14:37-0400 Systolic blood pressure 125 mm[Hg] KERRY NUNES DO [facility] Encounters Encounter Date Encounter Type Care Provider Facility Start: 09-02-2025 End: 09-02-2025 ambulatory Mahad Saleh Facility:[facility] Start: 08-11-2025 End: 08-11-2025 ambulatory ISAAC CANNON Facility:[id number] Start: 07-22-2025 End: 07-22-[address] Mahad Saleh MD -[facility] Work Phone: Start: 07-22-2025 End: 07-22-[address] Torres Yao MD Work Phone: -[facility] Start: 07-04-2025 Encounter for other preprocedural examination [facility] Start: 06-24-2025 End: 06-24-[address] Mahad Saleh MD -[facility] Work Phone: Start: 06-24-2025 End: 06-24-[address] Torres Yao MD Work Phone: -[facility] Start: 06-13-2025 End: 06-13-[address] Mahad Saleh MD -[facility] Work Phone: Start: 06-13-2025 End: 06-13-[address] Torres Yao MD Work Phone: -[facility] Start: 06-11-2025 ambulatory Mahad Saleh Facility :[facility] Start: 06-11-2025 Non-patient / Non-visit Dr. Mahad molina MD -[facility] Start: 06-11-2025 End: 06-11-2025 Admission to same day surgery center Dr. Mahad Saleh [facility] Start: 06-11-2025 End: 06-11-[address] Torres Yao MD Work Phone: [facility] Start: 05-22-2025 End: 05-22-[address] Mahad Saleh MD -[facility] Work Phone: Start: 05-22-2025 End: 05-22-[address] Torres Yao MD Work Phone: -[facility] Start: 05-20-2025 End: 05-20-[address] Torres Yao MD Work Phone: [facility] Start: 05-20-2025 End: 05-20-[address] Mahad Saleh MD [facility] Work Phone: Start: 05-20-2025 End: 05-20-2025 [facility] Start: 05-16-2025 End: 05-16-2025 Patient encounter procedure Torres Yao MD Work Phone: [facility] [place] Comment on above: Chronic insomnia (Pr imary Dx); Generalized anxiety disorder; Bipolar I disorder (HCC); Panic disorder Start: 05-16-2025 End: 05-16-2025 ambulatory [facility] Facility:[facility] Start: 05-15-2025 End: 05-15-2025 Patient encounter procedure Freeman Sarabia PA-C Work Phone: Pain Management Comment on above: Fibromyalgia (Primar y Dx); Bilateral shoulder region arthritis; Subacromial bursitis of both shoulders; Primary osteoarthritis of both knees; Sacroiliitis; Neuropathy involving both lower extremities; Generalized anxiety disorder Start: 05-15-2025 End: 05-15-2025 ambulatory FREEMAN SARABIA Facility:[id number] Start: 05-05-2025 End: 05-05-2025 Subsequent hospital visit by physician [facility] Comment on above: Urinary retention [R 33.9] Start: 05-05-2025 End: 05-05-2025 Follow-up encounter Ellen Rene APRN.DARKROOM WORKER Work Phone: [facility] [place] Start: 05-05-2025 End: 05-05-2025 Office outpatient visit 15 minutes Ellen Rene APRN.DARKROOM WORKER Work Phone: [facility] [place] Comment on above: Chronic pain syndrom e (Primary Dx); Fibromyalgia; Essential Hypertension, Benign; Urinary retention Start: 05-05-2025 End: 05-05-2025 ambulatory Torres Yao MD Work Phone: [facility] [place] Comment on above: Urinary Symptoms Start: 04-21-2025 End: 04-21-[address] Manuel Leary MD -[facility] Start: 04-21-2025 End: 04-21-[address] Torres Yao MD Work Phone: [facility] Work Phone: Start: 04-15-2025 End: 04-15-2025 Telephone encounter Freeman Sarabia PA-C Work Phone: Pain Management Start: 03-31-2025 End: 05-31-2025 Follow-up encounter Torres Yao MD Work Phone: [facility] [place] Start: 03-17-2025 End: 05-17-2025 Follow-up encounter Torres Yao MD Work Phone: [facility] [place] Start: 03-14-2025 ambulatory TORRES YAO Facility :[facility] Start: 03-14-2025 End: 03-14-2025 Subsequent hospital visit by physician Screen Mammo [facility] Comment on above: Encounter for screen ing mammogram for breast cancer [Z12.31] Start: 03-14-2025 End: 03-14-2025 Patient encounter procedure Torres Yao MD Work Phone: [facility] Comment on above: Fibromyalgia (Primar y Dx); Bipolar I disorder (HCC); 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); Neuropathy involving both lower extremities; Essential Hypertension, Benign; History of diabetes mellitus; Generalized anxiety disorder; Screening for colon cancer; Disorder of bone, unspecified Start: 03-14-2025 End: 03-14-2025 ambulatory TORRES YAO Facility:[facility] Start: 02-18-2025 End: 02-18-2025 ambulatory Freeman Sarabia [...] Start: 02-14-2025 End: 02-14-2025 ambulatory FREEMAN SARABIA Facility:[id number] Start: 02-04-2025 End: 02-04-2025 ambulatory TORRES YAO Facility:[facility] Start: 01-17-2025 End: 01-17-2025 ambulatory Joanna Gayle [facility] Comment on above: Subacromial bursitis of both shoulders (Primary Dx) Start: 01-14-2025 End: 02-14-2025 ambulatory [facility] Start: 01-09-2025 End: 01-09-2025 ambulatory Rachel Whiteside PTA Work Phone: [facility] Comment on above: Subacromial bursitis of both shoulders (Primary Dx); Bilateral shoulder region arthritis Start: 01-06-2025 End: 01-06-2025 ambulatory Joanna Lemon PT [facility] Comment on above: Subacromial bursitis of both shoulders (Primary Dx) Start: 01-03-2025 End: 01-03-2025 ambulatory [employer] Work Phone: [facility] Comment on above: Subacromial bursitis of both shoulders (Primary Dx); Bilateral shoulder region arthritis Start: 12-31-2024 End: 12-31-2024 ambulatory [employer] Work Phone: [facility] Comment on above: Subacromial bursitis of both shoulders (Primary Dx); Bilateral shoulder region arthritis Start: 12-27-2024 End: 12-27-2024 Refill Freeman Sarabia PA-C Work Phone: Pain Management Comment on above: Refill Request Start: 12-24-2024 End: 12-24-2024 ambulatory [employer] Work Phone: [facility] Comment on above: Subacromial bursitis of both shoulders (Primary Dx); Bilateral shoulder region arthritis Start: 12-11-2024 End: 12-11-2024 ambulatory [employer] Work Phone: [facility] Comment on above: Subacromial bursitis of both shoulders (Primary Dx); Bilateral shoulder region arthritis Start: 12-09-2024 End: 12-09-2024 ambulatory Rachel Amanda Huff DBA [employer] SMOKE ROOM OPERATOR Work Phone: [facility] Comment on above: Subacromial bursitis of both shoulders (Primary Dx); Bilateral shoulder region arthritis Start: 11-25-2024 End: 11-25-2024 ambulatory Joanna Lemon PT [facility] Comment on above: Subacromial [...] Start: 11-22-2024 End: 11-22-2024 ambulatory FREEMAN SARABIA Facility:[id number] Start: 09-24-2024 End: 09-24-2024 Telephone encounter Torres Yao MD Work Phone: [facility] Comment on above: Results Start: 09-23-2024 End: 09-23-2024 ambulatory TORRES YAO Facility:[facility] Start: 09-17-2024 ambulatory ISAAC Cortez ty:[id number] Start: 09-17-2024 End: 09-17-2024 Subsequent hospital visit by physician Isaac Cannon MD Work Phone: [facility] Comment on above: Subacromial bursitis of both shoulders [M75.51, M75.52] Start: 09-12-2024 End: 09-12-2024 ambulatory TORRES YAO Facility:[facility] Start: 09-12-2024 End: 09-12-2024 Office outpatient visit 25 minutes Ellen Rene APRN.CNP Work Phone: [facility] Comment on above: Chronic pain syndrom e [...] Start: 08-28-2024 End: 08-29-2024 ambulatory FREEMAN SARABIA Facility:[id number] Start: 08-07-2024 End: 08-07-2024 ambulatory Salvador Hailey PT Work Phone: [facility] Comment on above: Acute midline low ba ck pain without sciatica (Primary Dx) Start: 07-24-2024 End: 07-24-2024 ambulatory Salvador Hailey PT Work Phone: [facility] Comment on above: Acute midline low ba ck pain without sciatica (Primary Dx) Start: 07-16-2024 End: 07-16-2024 Refill Freeman Sarabia PA-C Work Phone: [facility] Management Comment on above: Refill Request Start: 07-10-2024 End: 07-10-2024 ambulatory Salvador Hailey PT Work Phone: [facility] Comment on above: Acute midline low ba ck pain without sciatica (Primary Dx) Start: 07-04-2024 End: 07-04-2024 ambulatory Salvador Hailey PT Work Phone: [facility] Comment on above: Acute midline low ba ck pain without sciatica (Primary Dx) Start: 06-27-2024 End: 06-27-2024 ambulatory Rachel Whiteside SMOKE ROOM OPERATOR Work Phone: [facility] Comment on above: Acute midline low ba ck pain without sciatica (Primary Dx) Start: 06-21-2024 End: 06-21-2024 ambulatory TORRES YAO Facility:[facility] Start: 06-21-2024 End: 06-21-2024 Subsequent hospital visit by physician [facility] [place] Work Phone: Radiology Comment on above: Coccyx pain [M53.3] Start: 06-21-2024 End: 06-21-2024 Telephone encounter Torres Yao MD Work Phone: [facility] [place] Comment on above: Patient concern Start: 06-13-2024 End: 06-13-2024 ambulatory Salvador Hailey PT Work Phone: [facility] Comment on above: Acute midline low ba ck pain without sciatica (Primary Dx) Start: 06-13-2024 End: 06-13-2024 ambulatory TORRES YAO Facility:[facility] Start: 06-13-2024 End: 06-13-2024 Office outpatient visit 15 minutes Ellen Rene APRN.CNP Work Phone: [facility] Comment on above: Chronic pain syndrom e (Primary Dx); Fibromyalgia; Essential Hypertension, Benign; Lumbar strain, subsequent encounter Start: 06-03-2024 End: 06-03-2024 ambulatory Salvador [facility] PT Work Phone: [facility] Comment on above: Acute [...] Telephone encounter Ellen Rene APRN.CNP Work Phone: [facility] Comment on above: Results Start: 05-10-2024 End: 05-10-2024 Subsequent hospital visit by physician Xr [facility] [place] Work Phone: Radiology Comment on above: Acute right-sided lo w back pain without sciatica [M54.50] Start: 05-10-2024 End: 05-10-2024 Office outpatient visit 15 minutes Ellen Rene APRN.DARKROOM WORKER Work Phone: [facility] Comment on above: Acute right-sided lo w back pain without sciatica (Primary Dx) Start: 03-27-2024 Refill Freeman nava PA-C Work Phone: Pain Management Comment on above: Refill Request Start: 03-21-2024 End: 03-21-2024 [facility] Freeman Sarabia PA-C Work Phone: Pain Management Comment on above: Fibromyalgia (Primar y Dx); Primary osteoarthritis of both knees; Sacroiliitis (HCC); Subacromial bursitis of both shoulders; Generalized anxiety disorder; Neuropathy involving both lower extremities Start: 03-11-2024 Refill Freeman [employer] Work Phone: Pain Management Comment on above: Refill Request Start: 03-04-2024 End: 03-04-2024 Patient encounter procedure Yomi Suarez MD Work Phone: [facility] [place] Comment on above: Chronic insomnia (Pr imary Dx); Generalized anxiety disorder; Bipolar I disorder (HCC); Other skilled nursing (current) drug therapy; History of suicide attempt Start: 02-29-2024 End: 02-29-2024 Emergency department patient visit DR ANABEL TOLEDO MD Facility:[facility] Start: 02-29-2024 End: 02-29-2024 Emergency department patient visit DR ANABEL TOLEDO MD [facility] Start: 02-08-2024 Refill Freeman [employer] Work Phone: Pain Management Comment on above: [...] 01-29-2024 Subsequent hospital visit by physician Francisco [facility] [place] Work Phone: Radiology Comment on above: Rectal bleeding [K62 .5] Start: 01-29-2024 End: 01-29-2024 Patient encounter procedure Torres Yao MD Work Phone: [facility] [place] Comment on above: Rectal bleeding (Pat nima [...] 12-12-2023 Documentation procedure Mammog adarsh Coordinator [facility] Start: 12-12-2023 Letter encounter Mammography Coordinator [facility] Department Start: 12-11-2023 End: 12-11-2023 Subsequent hospital visit by physician Screen Mammo [facility] Comment on above: Encounter for screen ing mammogram for malignant neoplasm of breast [Z12.31] Start: 12-05-2023 End: 12-06-2023 ambulatory NELDA LOWE Facility:[facility] Start: 12-05-2023 End: 12-05-2023 Patient encounter procedure NELDA LOWE MD [facility] Start: 10-13-2023 End: 10-13-2023 Patient encounter procedure Torres Yao MD Work Phone: [facility] [place] Comment on above: Fibromyalgia (Primar y Dx); [...] shoulders; Neuropathy involving both lower extremities; Other skilled nursing (current) drug therapy Start: 09-25-2023 Telephone encounter [...] disorder; Subacromial bursitis of both shoulders; Other skilled nursing (current) drug therapy Start: 02-06-2023 Refill Freeman [...] 12-08-2022 Documentation procedure Mammog adarsh Coordinator [facility] Start: 12-08-2022 Letter encounter Mammography Coordinator [facility] Department Start: 12-08-2022 End: 12-08-2022 Subsequent hospital visit by physician Screen Mammo [facility] Comment on above: Screening [...] Telephone encounter Torres Yao MD Work Phone: [facility] Comment on above: Results Start: 09-16-2022 Refill [...] knees; Generalized anxiety disorder; Sacroiliitis (HCC); Other skilled nursing (current) drug therapy; Subacromial bursitis of both [...] Telephone encounter Torres Yao MD Work Phone: [facility] [place] Comment on above: Glucometer New Presc ription Start: 01-19-2022 End: 01-19-2022 Subsequent hospital visit by physician Freeman Sarabia PA-C Work Phone[facility] Comment on above: FOLLOW UP Start: 01-08-2022 End: 01-08-2022 Emergency department patient visit KANE SHANIQUECESAR DO [facility] Start: 08-13-2021 End: 08-13-2021 Emergency department patient visit KERRY Min NUNES DO [facility] Procedures Date Procedure Procedure Detail Performing Clinician Start: 06-11-2025 Procedure on shoulder joint Dr. Torres Yao MD Work Phone: Start: 05-20-2025 MRI of joint of lowe r extremity Dr. Torres Yao MD Work Phone: Start: 05-05-2025 Us pelvic nonobstetr ic image dcmtn limited/f/u Ellen Rene PENAL OFFICER.[employer]RO[employer] WORKER Work Phone: Start: 05-05-2025 Urnls dip stick/tabl et reagent auto microscopy Ellen Rene PENAL OFFICER.[facility] Work Phone: Start: 04-21-2025 Plain X-ray of shoulder Dr. Torres Yao MD Work Phone: Start: 09-23-2024 Lipid 1996 panel - S veronika or Plasma Freeman Sarabia PA-C Work Phone: Start: 09-17-2024 End: 09-17-2024 Arthrocentesis aspir&/inj major jt/bursa w/o us Isaac Cannon MD Work Phone: Start: 09-12-2024 Adult depression scr eening assessment Ellen Rene PENAL OFFICER.[facility] Work Phone: Start: 06-21-2024 Radex sacrum & coccy x minimum 2 views Ellen Rene PENAL OFFICER.[facility] Work Phone: Start: 05-10-2024 Radex spine lumbosac ral 2/3 views Ellen Rene PENAL OFFICER.[facility] Work Phone: Start: 01-29-2024 Radiologic exam abdomen [...] DTaP,Tdap,Td Vaccine (4 - Td or Tdap) [facility] Start: 09-23-2029 Lipid panel Lipid Screening [facility] Start: 03-25-2028 Screening for malign ant neoplasm of colon [facility] Start: 09-23-2027 Diabetes Screening Diabetes Screenin g [facility] Start: 05-16-2026 Annual PCP Team Semiconductor Processing Technician francisco Disease Visit Annual PCP Team Chronic Disease Visit [facility] Start: 05-05-2026 Annual PCP Team Semiconductor Processing Technician francisco Disease Visit Annual PCP Team Chronic Disease Visit [facility] Start: 03-14-2026 Annual PCP Team Semiconductor Processing Technician francisco Disease Visit Annual PCP Team Chronic Disease Visit [facility] Start: 03-14-2026 Screening for malign ant neoplasm of breast Mammogram Screening [facility] Start: 11-25-2025 BP Controlled (<130/80) BP Controlle d (<130/80) [facility] Start: 10-01-2025 End: 10-01-2025 Patient encounter procedure 10/01/2025 10:00 AM EST Office Visit [facility] [place] [address] [place] [address] Torres Yao MD [address] [place] [address] 6 mo follow up [facility] [place] Comment on above: 6 mo follow up Start: 09-14-2025 End: 12-14-2025 25-hydroxyvitamin D3 [Mass/volume] in Serum or Plasma VITAMIN D 25 HYDROXY Lab Routine Fibromyalgia Disorder of bone, unspecified Expected: 09/14/2025, Expires: 12/14/2025 [facility] Comment on above: Expected: 09/14/2025 , Expires: 12/14/2025 Start: 09-14-2025 End: 12-14-2025 CBC W Auto Differential panel - Blood COMPLETE BLOOD COUNT AND DIFFERENTIAL Lab Routine Essential Hypertension, Benign Expected: 09/14/2025, Expires: 12/14/[address] [facility] Work Phone: Comment on above: Expected: 09/14/2025 , Expires: 12/14/2025 Start: 09-14-2025 End: 12-14-2025 Comprehensive metabolic 2000 panel - Serum or Plasma COMPREHENSIVE METABOLIC PANEL Lab Routine Essential Hypertension, Benign Expected: 09/14/2025, Expires: 12/14/2025 [facility] Comment on above: Expected: 09/14/2025 , Expires: 12/14/2025 Start: 09-14-2025 End: 12-14-2025 Hemoglobin A1c in Blood HEMOGLOBIN A1C Lab Routine History of diabetes mellitus Expected: 09/14/2025, Expires: 12/14/2025 [facility] Comment on above: Expected: 09/14/2025 , Expires: 12/14/2025 Start: 09-14-2025 End: 12-14-2025 Lipid 1996 panel - Serum or Plasma LIPID PANEL, FASTING Lab Routine Essential Hypertension, Benign Expected: 09/14/2025, Expires: 12/14/2025 [facility] Comment on above: Expected: 09/14/2025 , Expires: 12/14/2025 Start: 09-14-2025 End: 12-14-2025 Thyrotropin [Units/volume] in Serum or Plasma THYROID STIMULATING HORMONE Lab Routine Generalized anxiety disorder Expected: 09/14/2025, Expires: 12/14/2025 [facility] Comment on above: Expected: 09/14/2025 , Expires: 12/14/2025 Start: 09-12-2025 Annual PCP Team Semiconductor Processing Technician francisco Disease Visit Annual PCP Team Chronic Disease Visit [facility] Start: 09-12-2025 BP Controlled (<130/80) BP Controlle d (<130/80) [facility] Start: 09-12-2025 Covid-19 Vaccine () Covid-19 Vaccine () [facility] Comment on above: Postponed from 06/30 (Declined at this time) Start: 09-12-2025 Depression Screening Depression Scre ening [facility] Start: 09-12-2025 Hepatitis B Vaccine (1 of 3 - 19+ 3-dose series) Hepatitis B Vaccine (1 of 3 - 19+ 3-dose series) [facility] Comment on above: Postponed from 10/02 (Declined at this time) Start: 09-12-2025 Screening for malign ant neoplasm of cervix Cervical Cancer Screening [facility] Comment on above: Postponed from 07/27 (Declined at this time) Start: 08-11-2025 End: 08-11-2025 Patient encounter procedure 08/11/2025 2:00 PM EDT Office Visit Pain Management [address] [place] [address] Isaac Cannon MD [address] [place] [address] Follow Up Pain Management Comment on above: Follow Up Start: 07-29-2025 Registered Recurring Registered Recu rring -Physical Therapy Work Phone: Start: 07-27-2025 HPV TESTING HPV TESTING [facility] Start: 07-27-2025 Screening for malign ant neoplasm of cervix HPV Testing [facility] Start: 06-30-2025 Influenza vaccination [facility] Start: 06-13-2025 BP Controlled (<130/80) BP Controlle d (<130/80) [facility] Start: 06-11-2025 Anes arthrs humeral h/n strnclav & shoulder nos ANESTH SURGERY OF SHOULDER [facility] Start: 06-11-2025 Anterior decompressi on of shoulder joint KOREY ARTHRS SRG DECOMPRESSION [facility] Start: 06-11-2025 Arthroscopy of shoul erick with biceps tenodesis KOREY ARTHRS SRG [id number] CUF RPR [facility] Start: 06-11-2025 Arthroscopy shoulder rotator cuff repair KOREY ARTHRS SRG [id number] CUF R [facility] Start: 06-11-2025 Arthroscopy shoulder w/coracoacrm ligmnt release [place] [employer] ARTHRS SRG DECOMPRESSION [facility] Start: 06-11-2025 Injection aa&/strd brachial plexus NJX AA&/STRD BRCH PLXS IMG [facility] Start: 06-11-2025 Patient discharge [facility] Start: 06-11-2025 Application of device [facility] Start: 06-11-2025 Application of ice collar, cap or bag [facility] Start: 06-11-2025 Assessment of risk o f venous thromboembolism [facility] Start: 06-11-2025 Catheterization of vein [facility] Start: 06-11-2025 Continuous positive airway pressure ventilation treatment [facility] Start: 06-11-2025 Following clinical pathway protocol [facility] Start: 06-11-2025 Incentive spirometry [facility] Start: 06-11-2025 Introduction of urin lori catheter [facility] Start: 06-11-2025 Vital signs measurements [facility] Start: 06-11-2025 End: 06-11-2025 [facility] Start: 05-23-2025 BP Controlled (<130/80) BP Controlle d (<130/80) [facility] Start: 05-16-2025 End: 05-16-2025 Patient encounter procedure 05/16/2025 1:40 PM EDT Office Visit [facility] [address] [place] [address] Torres Yao MD [address] [place] [address] pt feels a bit anxious tried reaching therapist on maternity leave [facility] [place] Comment on above: pt feels a bit anxio us tried reaching therapist on maternity leave Start: 05-15-2025 End: 05-15-2025 Patient encounter procedure Pain Management Comment on above: Follow Up Start: 05-10-2025 BP Controlled (<130/80) BP Controlle d (<130/80) [facility] Start: 04-28-2025 Influenza vaccination Influenza Vacc ine (#1) [facility] Comment on above: Postponed from 06/30 (Declined at this time) Start: 04-21-2025 Plain X-ray of shoulder Shoulder min 2 Views [facility] Start: 04-21-2025 XR Shoulder GE 2 Views [facility] Start: 03-14-2025 End: 03-14-2025 Patient encounter procedure 03/14/2025 10:00 AM EDT Office Visit [facility] [address] [place] [address] Torres Yao MD [address] [place] [address] 6 month f/u [facility] Comment on above: 6 month f/u Start: 03-04-2025 Annual PCP Team Semiconductor Processing Technician francisco Disease Visit Annual PCP Team Chronic Disease Visit [facility] Start: 03-04-2025 BP Controlled (<130/80) BP Controlle d (<130/80) [facility] Start: 02-14-2025 End: 02-14-2025 Patient encounter procedure 02/14/2025 1:30 PM EDT Office Visit Pain Management [address] [place] [address] Freeman Sarabia PAAkua [address] [place] [address] Follow Up Pain Management Comment on above: Follow Up Start: 02-03-2025 End: 02-03-2025 ambulatory 02/03/2025 4:00 PM EDT OT/PT/Speech Visit [facility] [address] [place], [place] [address] Joanna Rey, PT Rupture of anterior cruciate ligament of right knee, subsequent encounter [S83.511D (ICD-10-CM [facility] Comment on above: Rupture of anterior cruciate ligament of right knee, subsequent encounter [S83.511D (ICD-10-CM Start: 01-28-2025 Annual PCP Team Semiconductor Processing Technician francisco Disease Visit Annual PCP Team Chronic Disease Visit [facility] Start: 01-28-2025 BP Controlled (<130/80) BP Controlle d (<130/80) [facility] Start: 01-17-2025 End: 01-17-2025 ambulatory 01/17/2025 1:00 PM EDT OT/PT/Speech Visit [facility] [address] [place] [address] Lemon, Joanna, PT Subacromial bursitis of both shoulders [M75.51, M75.52] [facility] Comment on above: Subacromial bursitis of both shoulders [M75.51, M75.52] Start: 01-13-2025 End: 01-13-2025 ambulatory 01/13/2025 12:00 PM EDT OT/PT/Speech Visit [facility] [address] [place] [address] Lemon, Joanna, PT Subacromial bursitis of both shoulders [M75.51, M75.52] [facility] Comment on above: Subacromial bursitis of both shoulders [M75.51, M75.52] Start: 01-09-2025 End: 01-09-2025 ambulatory 01/09/2025 11:00 AM EDT OT/PT/Speech Visit [facility] [address] [place] [address] KasRachel quezada, SMOKE ROOM OPERATOR [address] [place] [address] Subacromial bursitis of both shoulders [M75.51, M75.52] [facility] Comment on above: Subacromial bursitis of both shoulders [M75.51, M75.52] Start: 01-06-2025 End: 01-06-2025 ambulatory 01/06/2025 12:00 PM EDT OT/PT/Speech Visit [facility] [address] [place] [address] Joanna Rey, PT Subacromial bursitis of both shoulders [M75.51, M75.52] [facility] Comment on above: Subacromial bursitis of both shoulders [M75.51, M75.52] Start: 01-03-2025 End: 01-03-2025 ambulatory 01/03/2025 11:00 AM EST OT/PT/Speech Visit [facility] [address] [place] [address] Rachel Whiteside, SMOKE ROOM OPERATOR [address] [place] [address] Subacromial bursitis of both shoulders [M75.51, M75.52] [facility] Comment on above: Subacromial bursitis of both shoulders [M75.51, M75.52] Start: 12-31-2024 End: 12-31-2024 ambulatory 12/31/2024 11:45 AM EST OT/PT/Speech Visit [facility] [address] [place] [address] Rachel Whiteside, SMOKE ROOM OPERATOR [address] [place] [address] Subacromial bursitis of both shoulders [M75.51, M75.52] [facility] Comment on above: Subacromial bursitis of both shoulders [M75.51, M75.52] Start: 12-24-2024 End: 12-24-2024 ambulatory 12/24/2024 2:45 PM EST OT/PT/Speech Visit [facility] [address] [place] [address] Rachel Whiteside, SMOKE ROOM OPERATOR [address] [place] [address] Subacromial bursitis of both shoulders [M75.51, M75.52] [facility] Comment on above: Subacromial bursitis of both shoulders [M75.51, M75.52] Start: 12-22-2024 BP Controlled (<130/80) BP Controlle d (<130/80) [facility] Start: 12-19-2024 End: 12-19-2024 ambulatory 12/19/2024 11:00 AM EST OT/PT/Speech Visit [facility] [address] [place] [address] Rachel Whiteside, SMOKE ROOM OPERATOR [address] [place] [address] shoulder pain [facility] Comment on above: shoulder pain Start: 12-11-2024 End: 12-11-2024 ambulatory 12/11/2024 2:45 PM EST OT/PT/Speech Visit [facility] [address] [place] [address] Rachel Whiteside, SMOKE ROOM OPERATOR [address] [place] [address] shoulder pain [facility] Comment on above: shoulder pain Start: 12-11-2024 Screening for malign ant neoplasm of breast Mammogram Screening [facility] Start: 11-22-2024 End: 11-22-2024 Patient encounter procedure 11/22/2024 11:30 AM EST Office Visit Pain Management [address] [place] [address] Freeman Sarabia PA-C [address] [place] [address] Follow Up Pain Management Comment on above: Follow Up Start: 11-10-2024 BP Controlled (<130/80) BP Controlle d (<130/80) [facility] Start: 12-15-2024 Annual PCP Team Semiconductor Processing Technician francisco Disease Visit Annual PCP Team Chronic Disease Visit [facility] Start: 10-13-2024 BP Controlled (<130/80) BP Controlle d (<130/80) [facility] Start: 10-13-2024 Covid-19 Vaccine ( season) Covid-19 Vaccine () [facility] Comment on above: Postponed from 06/30 (Declined at this time) Start: 2024 Screening for malign ant neoplasm of colon [facility] Start: 09-28-2024 BP Controlled (<130/80) BP Controlle d (<130/80) [facility] Start: 09-17-2024 End: 09-17-2024 Admission to same day surgery center 09/17/2024 1:00 PM EST - 09/17/2024 1:15 PM EST Surgery [facility] [address] [place] [address] Isaac Cannon MD [address] [place] [address] ARTHROCENTESIS,ASPIRATIO N AND/OR INJECTION,MAJOR JOINT OR BURSA [...] EST Hospital Encounter [facility] [address] [place] [address] Isaac Cannon MD [address] [place] [address] Subacromial bursitis of both shoulders [M75.51, M75.52] [facility] Comment on above: Subacromial bursitis of both shoulders [M75.51, M75.52] Start: 09-12-2024 End: 12-12-2024 CBC W Auto Differential panel - Blood COMPLETE BLOOD COUNT AND DIFFERENTIAL Lab Routine Chronic pain syndrome History of diabetes mellitus Expected: 09/12/2024, Expires: 12/12/2024 [facility] Comment on above: Expected: 09/12/2024 , Expires: 12/12/2024 Start: 09-12-2024 End: 12-12-2024 Cobalamin (Vitamin B12) [Mass/volume] in Serum or Plasma VITAMIN B12 Lab Routine Chronic pain syndrome History of diabetes mellitus Expected: 09/12/2024, Expires: 12/12/2024 [facility] Comment on above: Expected: 09/12/2024 , Expires: 12/12/2024 Start: 09-12-2024 End: 12-12-2024 Comprehensive metabolic 2000 panel - Serum or Plasma COMPREHENSIVE METABOLIC PANEL Lab Routine Chronic pain syndrome History of diabetes mellitus Essential Hypertension, Benign Expected: 09/12/2024, Expires: 12/12/[address] [facility] Work Phone: Comment on above: Expected: 09/12/2024 , Expires: 12/12/2024 Start: 09-12-2024 End: 12-12-2024 Hemoglobin A1c in Blood HEMOGLOBIN A1C Lab Routine Chronic pain syndrome History of diabetes mellitus Expected: 09/12/2024, Expires: 12/12/2024 [facility] Comment on above: Expected: 09/12/2024 , Expires: 12/12/2024 Start: 09-12-2024 End: 12-12-2024 LIPID PANEL, NONFASTING LIPID PANEL, NONFASTING Lab Routine Chronic pain syndrome History of diabetes mellitus Encounter for lipid screening for cardiovascular disease Expected: 09/12/2024, Expires: 12/12/2024 [facility] Comment on above: Expected: 09/12/2024 , Expires: 12/12/2024 Start: 09-12-2024 End: 12-12-2024 Magnesium [Mass/volume] in Serum or Plasma MAGNESIUM Lab Routine Chronic pain syndrome History of diabetes mellitus Expected: 09/12/2024, Expires: 12/12/2024 [facility] Comment on above: Expected: 09/12/2024 , Expires: 12/12/2024 Start: 09-12-2024 End: 12-12-2024 Microalbumin/Creatinine [Mass Ratio] in Urine ALBUMIN/CREATININE RATIO, URINE Lab Routine History of diabetes mellitus Expected: 09/12/2024, Expires: 12/12/2024 [facility] Comment on above: Expected: 09/12/2024 , Expires: 12/12/2024 Start: 09-12-2024 End: 12-12-2024 Thyrotropin [Units/volume] in Serum or Plasma THYROID STIMULATING HORMONE Lab Routine Chronic pain syndrome History of diabetes mellitus Expected: 09/12/2024, Expires: 12/12/2024 [facility] Comment on above: Expected: 09/12/2024 , Expires: 12/12/2024 Start: 09-12-2024 End: 09-12-2024 Patient encounter procedure 09/12/2024 10:00 AM EST Office Visit Family [facility] [address] [place] [address] Ellen Rene APRN.DARKROOM WORKER [address] [place], [place] [address] 3 month lumbar spine f/u [facility] Comment on above: 3 month lumbar spine f/u Start: 08-28-2024 End: 08-28-2024 Patient encounter procedure 08/28/2024 1:30 PM EDT Office Visit Pain Management [address] [place] [address] Freeman Sarabia PA-C [address] [place] [address] Follow up Pain Management Comment on above: Follow up Start: 08-25-2024 BP Controlled (<130/80) BP Controlle d (<130/80) [facility] Start: 08-07-2024 End: 08-07-2024 ambulatory 08/07/2024 11:30 AM EDT OT/PT/Speech Visit [facility] [address] [place], [place] [id number] Salvador Hart, PT [address] [place], [place] [id number] M54.50 (ICD-10-CM) - Acute midline low back pain without sciatica [facility] Comment on above: M54.50 (ICD-10-CM) - Acute midline low back pain without sciatica Start: 07-24-2024 End: 07-24-2024 ambulatory 07/24/2024 11:30 AM EDT OT/PT/Speech Visit [facility] [address] [place], [place] [id number] Salvador [place], PT [address] [place], [place] [id number] M54.50 (ICD-10-CM) - Acute midline low back pain without sciatica [facility] Comment on above: M54.50 (ICD-10-CM) - Acute midline low back pain without sciatica Start: 07-13-2024 BP Controlled (<130/80) BP Controlle d (<130/80) [facility] Start: 07-10-2024 End: 07-10-2024 ambulatory 07/10/2024 3:00 PM EDT OT/PT/Speech Visit [facility] [address] [place], [place] [address] Salvador Hart, PT [address] [place], [place] [id number] M54.50 (ICD-10-CM) - Acute midline low back pain without sciatica [facility] Comment on above: M54.50 (ICD-10-CM) - Acute midline low back pain without sciatica Start: 07-04-2024 End: 07-04-2024 Documentation procedure 07/04/2024 Plan of Care Documentation [facility] [address] [place] [address] [facility] Start: 07-04-2024 End: 07-04-2024 ambulatory 07/04/2024 10:45 AM EDT OT/PT/Speech Visit [facility] [address] [place] [address] Salvador [place], PT [address] [place] [address] Acute midline low back pain without sciatica [M54.50] [facility] Comment on above: Acute midline low ba ck pain without sciatica [M54.50] Start: 06-30-2024 Covid-19 Vaccine ( season) Covid-19 Vaccine () [facility] Start: 06-30-2024 Covid-19 Vaccine () Covid-19 Vaccine () [facility] Start: 06-30-2024 Influenza vaccination [facility] Start: 06-27-2024 End: 06-27-2024 ambulatory 06/27/2024 10:15 AM EDT OT/PT/Speech Visit [facility] [address] [place] [address] Rachel Whiteside, SMOKE ROOM OPERATOR [address] [place] [address] Acute midline low back pain without sciatica [M54.50] [facility] Comment on above: Acute midline low ba ck pain without sciatica [M54.50] Start: 06-21-2024 End: 07-21-2025 XR Sacrum and Coccyx [address] [facility] Work Phone: Comment on above: Expected: 06/21/2024 , Expires: 07/21/2025 Start: 06-20-2024 End: 06-20-2024 ambulatory 06/20/2024 10:15 AM EDT OT/PT/Speech Visit [facility] [address] [place] [address] Rashaad Rachel, SMOKE ROOM OPERATOR [address] [place] [address] Acute midline low back pain without sciatica [M54.50] [facility] Comment on above: Acute midline low ba ck pain without sciatica [M54.50] Start: 06-13-2024 End: 06-13-2024 ambulatory 06/13/2024 2:15 PM EDT OT/PT/Speech Visit [facility] [address] [place] [address] Salvador Hart, PT [address] [place] [address] Acute midline low back pain without sciatica [M54.50] [facility] Comment on above: Acute midline low ba ck pain without sciatica [M54.50] Start: 06-13-2024 End: 06-13-2024 Patient encounter procedure 06/13/2024 11:20 AM EDT Office Visit Family [facility] [address] [facility] [place] [address] Ellen Rene APRN.DARKROOM WORKER [address] [place] [address] 1 month f/u Family [facility] Comment on above: 1 month f/u Start: 06-03-2024 End: 06-03-2024 ambulatory 06/03/2024 10:00 AM EDT OT/PT/Speech Visit [facility] [address] [place] [address] Salvador Hart, PT [address] [place] [address] Acute midline low back pain without sciatica [M54.50] [facility] Comment on above: Acute midline low ba ck pain without sciatica [M54.50] Start: 05-26-2024 Urine microalbumin profile [facility] Start: 05-23-2024 End: 05-23-2024 Patient encounter procedure 05/23/2024 1:30 PM EDT Office Visit Pain Management [address] [place] [address] Freeman Sarabia PA-C [address] [place] [address] follow up Pain Management Comment on above: follow up Start: 04-28-2024 Influenza vaccination Influenza Vacc ine (#1) [facility] Comment on above: Postponed from 06/30 (Declined at this time) Start: 04-19-2024 End: 04-19-2024 Patient encounter procedure 04/19/2024 10:20 AM EDT Office Visit [facility] [place] [address] [place], [place] [id number] Torres Yao MD [address] [place], [place] [id number] 6 mth f/u [facility] Comment on above: 6 mth f/u Start: 04-12-2024 ANNUAL PCP TEAM BANANA ROOM CUTTER FRANCISCO DISEASE VISIT ANNUAL PCP TEAM CHRONIC DISEASE VISIT [facility] Start: 04-12-2024 COVID-19 VACCINE (3 - Booster for Kamala series) COVID-19 VACCINE (3 - Booster for Kamala series) [facility] Comment on above: Postponed from 12/23 (Declined at this time) Start: 04-12-2024 HEPATITIS B (1 of 3 - 3-dose series) HEPATITIS B (1 of 3 - 3-dose series) [facility] Comment on above: Postponed from 10/02 (Declined at this time) Start: 04-12-2024 Hepatitis B Vaccine (1 of 3 - 19+ 3-dose series) Hepatitis B Vaccine (1 of 3 - 19+ 3-dose series) [facility] Comment on above: Postponed from 10/02 (Declined at this time) Start: 04-12-2024 Hepatitis B Vaccine (1 of 3 - 3-dose series) Hepatitis B Vaccine (1 of 3 - 3-dose series) [facility] Comment on above: Postponed from 10/02 (Declined at this time) Start: 04-12-2024 PNEUMOCOCCAL (2 - PCV) PNEUMOCOCCAL (2 - PCV) [facility] Comment on above: Postponed from 10/21 (Declined at this time) Start: 04-12-2024 Pneumococcal vaccination Pneum ococcal Vaccine (2 - PCV) [facility] Comment on above: Postponed from 10/21 (Declined at this time) Start: 03-20-2024 End: 03-20-2024 Patient encounter procedure 03/20/2024 1:15 PM EDT Office Visit Pain Management [address] [place] [address] Freeman Sarabia PA-C [address] [place] [address] FOLLOWUP [facility] Management Comment on above: FOLLOWUP Start: 03-03-2024 BP CONTROLLED (<130/80) BP CONTROLLE D (<130/80) [facility] Start: 01-21-2024 BP CONTROLLED (<130/80) BP CONTROLLE D (<130/80) [facility] Start: 12-08-2023 Mammography [facility] Start: 12-08-2023 Screening for malign ant neoplasm of breast Mammogram Screening [facility] Start: 11-30-2023 BP CONTROLLED (<130/80) BP CONTROLLE D (<130/80) [facility] Start: 10-30-2023 Behavioral Health Screening Behavioral Health Screening [facility] Start: 10-30-2023 Depression Assessment Depression Ass essment [facility] Start: 10-13-2023 End: 10-13-2024 BINTA BY IFA SCREEN [facility] Work Phone: Comment on above: Expected: 10/13/2023 , Expires: 10/13/2024 Start: 10-13-2023 BP CONTROLLED (<130/80) BP CONTROLLE D (<130/80) [facility] Start: 10-13-2023 End: 10-13-2024 C reactive protein [Mass/volume] in Serum or Plasma [facility] Work Phone: Comment on above: Expected: 10/13/2023 , Expires: 10/13/2024 Start: 10-13-2023 End: 01-12-2024 Cobalamin (Vitamin B12) [Mass/volume] in Serum or Plasma [facility] Work Phone: Comment on above: Expected: 10/13/2023 , Expires: 01/12/2024 Start: 10-13-2023 End: 01-12-2024 Comprehensive metabolic 2000 panel - Serum or Plasma [facility] Work Phone: Comment on above: Expected: 10/13/2023 , Expires: 01/12/2024 Start: 10-13-2023 End: 01-12-2024 Folate [Mass/volume] in Serum or Plasma [facility] Work Phone: Comment on above: Expected: 10/13/2023 , Expires: 01/12/2024 Start: 10-13-2023 End: 01-12-2024 Hemoglobin A1c in Blood [facility] Work Phone: Comment on above: Expected: 10/13/2023 , Expires: 01/12/2024 Start: 10-13-2023 End: 01-12-2024 PROTEIN ELECTROPHORESIS SERUM W/INTERP [facility] Work Phone: Comment on above: Expected: 10/13/2023 , Expires: 01/12/2024 Start: 10-13-2023 End: 10-13-2024 Rheumatoid factor [Units/volume] in Serum or Plasma [facility] Work Phone: Comment on above: Expected: 10/13/2023 , Expires: 10/13/2024 Start: 10-13-2023 End: 01-12-2024 Thyrotropin [Units/volume] in Serum or Plasma [facility] Work Phone: Comment on above: Expected: 10/13/2023 , Expires: 01/12/2024 Start: 09-28-2023 End: 12-28-2023 TOXASSURE FLEX 23, URINE TOXASSURE FLEX 23, URINE Lab Routine Other skilled nursing (current) drug therapy Primary osteoarthritis of both knees Expected: 09/28/2023, Expires: 12/28/[address] [facility] Work Phone: Comment on above: Expected: 09/28/2023 , Expires: 12/28/2023 Start: 09-19-2023 Hepatitis B surface antibody level LDL CHOLESTEROL [facility] Start: 09-08-2023 ANNUAL PCP TEAM BANANA ROOM CUTTER FRANCISCO DISEASE VISIT ANNUAL PCP TEAM CHRONIC DISEASE VISIT [facility] Start: 09-01-2023 BP CONTROLLED (<130/80) BP CONTROLLE D (<130/80) [facility] Start: 07-27-2023 PAP TESTING PAP TESTING [facility] Start: 07-27-2023 Screening for malign ant neoplasm of cervix [facility] Start: 07-20-2023 BP CONTROLLED (<130/80) BP CONTROLLE D (<130/80) [facility] Start: 06-30-2023 Covid-19 Vaccine () Covid-19 Vaccine () [facility] Start: 06-30-2023 Influenza vaccination [facility] Start: 06-09-2023 BP CONTROLLED (<130/80) BP CONTROLLE D (<130/80) [facility] Start: 04-28-2023 Influenza vaccination INFLUENZA (#1) [facility] Comment on above: Postponed from 06/30 (Declined at this time) Start: 03-19-2023 Hemoglobin A1c/Hemoglobin.total in Blood HBA1C [facility] Start: 03-10-2023 Hepatitis B screening URINE AL BUMIN:CREATININE RATIO [facility] Start: 03-10-2023 Hepatitis C antibody , confirmatory test DILATED RETINAL EXAM [facility] Start: 03-07-2023 ANNUAL PCP TEAM BANANA ROOM CUTTER FRANCISCO DISEASE VISIT ANNUAL PCP TEAM CHRONIC DISEASE VISIT [facility] Start: 03-07-2023 BP CONTROLLED (<130/80) BP CONTROLLE D (<130/80) [facility] Start: 03-03-2023 End: 05-03-2023 TOXASSURE FLEX 23, URINE TOXASSURE FLEX 23, URINE Lab Routine Primary osteoarthritis of both knees Other skilled nursing (current) drug therapy Expected: 03/03/2023, Expires: 05/03/[address] [facility] Work Phone: Comment on above: Expected: 03/03/2023 , Expires: 05/03/2023 Start: 11-10-2022 Mammography MAMMOGRAM [facility] Start: 10-30-2022 DEPRESSION ASSESSMENT DEPRESSION ASS ESSMENT [facility] Start: 09-21-2022 End: 11-21-2022 POTASSIUM BLD POTASSIUM BLD Lab Routine Hypokalemia Expected: 09/21/2022, Expires: 11/21/[address] [facility] Work Phone: Comment on above: Expected: 09/21/2022 , Expires: 11/21/2022 Start: 09-19-2022 3 comp foot exam completed DIABETIC FOOT EXAM [facility] Start: 09-13-2022 Hepatitis B surface antibody level LDL CHOLESTEROL [facility] Start: 09-07-2022 Hemoglobin A1c/Hemoglobin.total in Blood HBA1C [facility] Start: 09-06-2022 ANNUAL PCP TEAM BANANA ROOM CUTTER FRANCISCO DISEASE VISIT ANNUAL PCP TEAM CHRONIC DISEASE VISIT [facility] Start: 09-01-2022 End: 11-01-2022 DRUG SCR TOXASURE DRUG SCR TOXASURE Lab Routine Primary osteoarthritis of both knees Other rn long term care (current) drug therapy Expected: 09/01/2022, Expires: 11/01/[address] [facility] Work Phone: Comment on above: Expected: 09/01/2022 , Expires: 11/01/2022 Start: 06-30-2022 Influenza vaccination [facility] Start: 04-28-2022 Influenza vaccination INFLUENZA (#1) [facility] Comment on above: Postponed from 06/30 (Declined at this time) Start: 03-13-2022 Hemoglobin A1c/Hemoglobin.total in Blood HBA1C [facility] Start: 03-07-2022 End: 05-07-2022 ALBUMIN/CREAT RATIO RND UR ALBUMIN/CREAT RATIO RND UR Lab Routine Type 2 diabetes mellitus without complication, with long-term current use of insulin (HCC) Expected: 03/07/2022, Expires: 05/07/[address] [facility] Work Phone: Comment on above: Expected: 03/07/2022 , Expires: 05/07/2022 Start: 03-07-2022 End: 05-07-2022 Basic metabolic 2000 panel - Serum or Plasma [facility] Work Phone: Comment on above: Expected: 03/07/2022 , Expires: 05/07/2022 Start: 03-07-2022 End: 05-07-2022 Hemoglobin A1c/Hemoglobin.total in Blood [facility] Work Phone: Comment on above: Expected: 03/07/2022 , Expires: 05/07/2022 Start: 03-05-2022 3 comp foot exam completed DIABETIC FOOT EXAM [facility] Start: 02-26-2022 COVID-19 VACCINE (3 - Booster for Kamala series) COVID-19 VACCINE (3 - Booster for Kamala series) [facility] Start: 02-24-2022 Hepatitis B screening URINE AL BUMIN:CREATININE RATIO [facility] Start: 12-23-2021 COVID-19 VACCINE (3 - Booster for Kamala series) COVID-19 VACCINE (3 - Booster for Kamala series) [facility] Start: 10-30-2021 DEPRESSION ASSESSMENT DEPRESSION ASS ESSMENT [facility] Start: 10-06-2021 Hepatitis C antibody , confirmatory test DILATED RETINAL EXAM [facility] Start: 04-13-2017 Adult depression screening assessment DEPRESSION SCREENING [facility] Start: 10-21-2014 PNEUMOCOCCAL (2 - PCV) PNEUMOCOCCAL (2 - PCV) [facility] Start: 05-30-2001 Medicare Annual Well ness Visit Medicare Annual Wellness Visit [facility] Start: 1998 HEPATITIS B (1 of 3 - Risk 3-dose series) HEPATITIS B (1 of 3 - Risk 3-dose series) [facility] Start: 1998 Hepatitis B Vaccine (1 of 3 - 19+ 3-dose series) Hepatitis B Vaccine (1 of 3 - 19+ 3-dose series) [facility] Start: 1997 BP CONTROLLED (<130/80) BP CONTROLLE D (<130/80) [facility] Start: 1997 Depression Screening Depression Scre ening [facility] Start: 1997 HEPATITIS C SCREENING HEPATITIS C SC RETA [facility] Start: 1979 HEPATITIS B (1 of 3 - 3-dose series) HEPATITIS B (1 of 3 - 3-dose series) [facility] COLOGUARD COLOGUARD Lab Ro utine Screening for colon cancer Ordered: 03/14/2025 [facility] Comment on above: Ordered: 03/14/2025 End: 02-13-2026 DBT Breast - bilateral screening BRITTON SCREENING W [facility] Radiology Routine Encounter for screening mammogram for breast cancer 1 Occurrences starting 01/14/2025 until 02/13/[address] [facility] Work Phone: Comment on above: 1 Occurrences starti ng 01/14/2025 until 02/13/2026 DBT Breast - bilater al screening BRITTON SCREENING W [facility] Radiology Routine Encounter for screening mammogram for breast cancer 03/14/2025 12:58 PM EDT [facility] Work Phone: End: 11-11-2024 BRITTON SCREENING BRITTON SCREENING Radiology Routine Encounter for screening mammogram for malignant neoplasm of breast 1 Occurrences starting 10/13/2023 until 11/11/[address] [facility] Work Phone: Comment on above: 1 Occurrences starti ng 10/13/2023 until 11/11/2024 MG Breast Screening BRITTON SCREENIN G Radiology Routine Encounter for screening mammogram for malignant neoplasm of breast 12/11/2023 10:18 AM EST [facility] Work Phone: MR Lower Extremity Joint [facility] Patient Education [facility] Work Phone: End: 09-25-2024 XR SHOULDER ORTHO 4V AP/TRUE AP/LAT/OUTLET LEFT XR SHOULDER ORTHO 4V AP/TRUE AP/LAT/OUTLET LEFT Radiology Routine Chronic pain of both shoulders 1 Occurrences starting 08/25/2023 until 09/25/[address] [facility] Work Phone: Comment on above: 1 Occurrences starti ng 08/25/2023 until 09/25/2024 XR SHOULDER ORTHO 4V AP/TRUE AP/LAT/OUTLET LEFT XR SHOULDER ORTHO 4V AP/TRUE AP/LAT/OUTLET LEFT Radiology Routine Chronic pain of both shoulders 08/25/2023 10:14 AM EDT [facility] Work Phone: End: 09-25-2024 XR SHOULDER ORTHO 4V AP/TRUE AP/LAT/OUTLET RIGHT XR SHOULDER ORTHO 4V AP/TRUE AP/LAT/OUTLET RIGHT Radiology Routine Chronic pain of both shoulders 1 Occurrences starting 08/25/2023 until 09/25/[address] [facility] Work Phone: Comment on above: 1 Occurrences starti ng 08/25/2023 until 09/25/2024 XR SHOULDER ORTHO 4V AP/TRUE AP/LAT/OUTLET RIGHT XR SHOULDER ORTHO 4V AP/TRUE AP/LAT/OUTLET RIGHT Radiology Routine Chronic pain of both shoulders 08/25/2023 10:14 AM EDT [facility] Work Phone: [facility] MR ZANA PAIGE [facility] Immunizations Immunization Date Immunization Notes Care Provider Daniel arce 01-08-2022 tetanus toxoid, redu melanie diphtheria toxoid, and acellular pertussis vaccine, adsorbed; Translations: [Boostrix (Tdap)] KANE ARCE DO [facility] 02-04-2021 COVID-19 vaccine (KAMALA) Freeman Sarabia PA-C Work Phone: [facility] 07-15-2019 influenza, injectabl e, quadrivalent, contains preservative Freeman Sarabia PA-C Work Phone: [facility] 07-15-2019 influenza virus vacc ine, unspecified formulation Freeman Sarabia PA-C Work Phone: [facility] 08-05-2016 influenza, injectabl e, quadrivalent, contains preservative Freeman Sarabia PA-C Work Phone: [facility] 08-05-2016 influenza, seasonal, injectable Freeman Sarabia PA-C Work Phone: [facility] 10-07-2015 influenza, injectabl e, quadrivalent, contains preservative Freeman Sarabia PA-C Work Phone: [facility] 10-07-2015 influenza, seasonal, injectable Freeman Sarabia PA-C Work Phone: [facility] 09-29-2014 influenza, seasonal, injectable Freeman Sarabia PA-C Work Phone: [facility] 05-26-2014 tetanus toxoid, redu melanie diphtheria toxoid, and acellular pertussis vaccine, adsorbed Freeman Sarabia PA-C Work Phone: [facility] 10-21-2013 pneumococcal polysaccharide vaccine, 23 valent Freeman Sarabia PA-C Work Phone: [facility] Work Phone: 07-30-2011 influenza virus vacc ine, unspecified formulation Freeman Sarabia PA-C Work Phone: [facility] Work Phone: 07-30-2011 influenza, seasonal, injectable Freeman Sarabia PA-C Work Phone: [facility] 09-29-2010 influenza virus vacc ine, unspecified formulation Freeman Sarabia PA-C Work Phone: [facility] Work Phone: 09-29-2010 influenza, seasonal, injectable Freeman Sarabia PA-C Work Phone: [facility] 06-09-2004 diphtheria and tetan us toxoids, adsorbed for pediatric use Freeman Sarabia PA-C Work Phone: [facility] Work Phone: Payers Date Payer Category Payer Self-pay 2024 Medicaid [id number] 2024 Private Health Insurance MEDPAY [id number] [place] [address] [id number] 2024 Unknown MEDPAY MEDPAY [id number] 2024-Present [phone] [place] [address] [id number] [place] [address] Indemnity [id number] 2023 Medicare [id number] 2019 Medicaid [employer] [facility] [id number] 2019-Present [phone] [address] [place] [address] Medicaid [id number] 2014 Medicaid [id number] 2014 Medicare MEDICARE MEDICAR E A AND B [id number] 2014-Present [phone] [address] [address] [place] [address] Medicare [id number] 2014 Unknown [id number] 2001 Medicare [id number] 2001 Medicare [id number] 1979 Unknown [id number]. 627 1979 Unknown [id number] 2.16.840.1.366665.3.579.2. 627 1979 Unknown [id number] 2.16.840.1.644309.3.579.2. 627 1979 Unknown [id number] 2.16.840.1.922347.3.579.2. 627 Unknown [id number] 2.16.840.1.689500.3.579.2. 462 Unknown [id number] 2.16.840.1.211304.3.579.2. 462 Unknown [id number] 2.16.840.1.831362.3.579.2. 462 Unknown [id number] 2.16.840.1.672825.3.579.2. 462 Unknown [id number] 2.16.840.1.913382.3.579.2. 462 Unknown [id number] 2.16.840.1.980825.3.579.2. 462 Unknown [id number] 2.16.840.1.751775.3.579.2. 462 Unknown [id number] 2.16.840.1.589634.3.579.2. 462 Unknown [id number] 2.16.840.1.939914.3.579.2. 462 Unknown [id number] 2.16.840.1.092415.3.579.2. 462 Unknown [id number] 2.16.840.1.653171.3.579.2. 462 Social History Date Type Detail Facility Start: 01-28-2020 End: 05-29-2025 Ex-smoker (finding) [facility] Start: 1980 Sex Assigned At Female A [facility] End: 06-16-2008 History of tobacco use Current smoker [facility] End: 06-16-2008 History of tobacco use Cigarette Smoker [facility] Start: 09-20-2021 End: 03-14-2025 Alcohol intake Current non-drinker of alcohol (finding) [facility] Start: 1980 Sex Assigned At Not on file [facility] Start: 02-25-2022 End: 09-15-2022 Exposure to SARS-CoV-2 (event) Not sure [facility] Start: 08-05-2016 End: 03-03-2023 Cigarettes smoked current (pack per day) - Reported 0.5 [facility] Work Phone: Start: 08-05-2016 End: 09-12-2024 Tobacco use and exposure Smokeless tobacco non-user [facility] Work Phone: Start: 03-03-2023 End: 05-26-2023 Tobacco use panel [facility] Work Phone: Adult Depression Screening Assessment 3 [facility] Work Phone: Start: 12-20-2019 Tobacco Use Tobacco Use [facility] Medical Equipment Procedure Code Equipment Code Equipment Origin al Text Equipment Identifier Dates Arthroscopy, shoulder DECELLULARIZED DERMIS ([id number]) FDA Start: 06-11-2025 Arthroscopy, shoulder cuffed aqumentation system FDA Start: 06-11-2025 Arthroscopy, shoulder Tendon/ligament bone anchor, non-bioabsorbable [id number] FDA Start: 06-11-2025 Arthroscopy, shoulder Tendon/ligament bone anchor, non-bioabsorbable ()[id number] FDA Start: 06-11-2025 Arthroscopy, shoulder Tendon/ligament bone anchor, bioabsorbable ()[id number] FDA Start: 06-11-2025 Arthroscopy, shoulder Tendon/ligament bone anchor, bioabsorbable ()[id number] FDA Start: 06-11-2025 Arthroscopy, shoulder DECELLULARIZED DERMIS [...] Assessment Result Facility 06-11-2025 Functional status Ambulates [facility] Work Phone: 04-08-2015 Are you deaf, or do you have serious difficulty hearing No 04/08/2015 9:21 AM Ellen Glaser LPN No [facility] 04-08-2015 Are you blind, or do you have serious difficulty seeing, even when wearing glasses No 04/08/2015 9:21 AM Ellen Glaser LPN No [facility] 04-08-2015 Do you have serious difficulty walking or climbing stairs No 04/08/2015 9:21 AM Ellen Glaser LPN No [facility] 04-08-2015 Do you have difficul ty dressing or bathing No 04/08/2015 9:21 AM Ellen Glaser LPN No [facility] 04-08-2015 Because of a physica l, mental, or emotional condition, do you have difficulty doing errands alone such as visiting a physician's office or shopping No 04/08/2015 9:21 AM Ellen Glaser LPN No [facility] Mental Status Date Assessment Result Facility 06-11-2025 Cognitive function Level Of Cons ciousness Drowsy [facility] Work Phone: 06-11-2025 Cognitive function Voice/Name [facility] Work Phone: 02-29-2024 Mental Status Orientation Oriented x 4 [facility] 04-08-2015 Because of a physica l, mental, or emotional condition, do you have serious difficulty concentrating, remembering, or making decisions No 04/08/2015 9:21 AM Ellen Glaser LPN No [facility] Clinical Notes 02-03-2014 to 08-11-2025 Note Date & Type Note Facility 08-11-2025 Note HNO ID: [id number] Author: ISAAC CANNON MD Service: ? Author [...] EXPOSED ROOT (ELEVATION AND/OR FORCEPS REMOVAL) 1995 [place] teeth TONSILLECTOMY PRIMARY/SECONDARY Tonsillectomy FAMILY HISTORY Problem [...] affected area. ketoconazole (NIZORAL) 2 % shampoo qy-li-zhxy-FA-Ca carb-vit K (WOMEN'S MULTIVITAMIN) 18 mg-400 mcg- [...] Imaging: Other Diagnostic (more content not included)... [facility] 08-11-2025 Note HNO ID: [id number] Author: GENO JEONG MA Service: ? Author Type: Fruit Peeler Type: Progress Notes Filed: 08/11/2025 14:12 Note Text: Room 2 Follow up Fibromyalgia [facility] 07-22-2025 Progress note [facility] 06-13-2025 Progress note [facility] 06-13-2025 Progress note Note Date/Time June 13, 2025 1:25pm [facility] [address] [place] [address] [address] [place] [address] OFFICE VISIT Date of Service: 06/13/25 MR#: [id number] Acct: [id number] Name: SHEILA CROWE Rep #: [id number] : 1980 Provider: Dr. Delvin Saleh MD Age/Sex: 44/F Location: [facility] Status: Signed Intake Vital Signs 05/22/25 10:24 [...] by me, Dr. Mahad Saleh MD 06/13/25 4653. Part of today?s visit was documented by [...] stiffness and muscle atrophy. Phase 2: Gradual Confucianist of Motion (Weeks 2-6) Gradually discontinue the sling starting 2 weeks after surgery. Active Assisted Range of Motion: Gradually increasing the range of motion with assistance from the unaffected arm or a physical therapist is introduced. Phase 3: Gradual Confucianist of Strength (Weeks 6-12) Light Strengthening: Isometrics [...] Cosigner Signature: Date (if applicable) CC: ~ [facility] Work Phone: 1(862) 158-833408-13-2025 Consult note [facility] Medical Records Department [address] [place] [address] Anesthesia Postop Eval I 06/11/25 1033 MR#: [id number] Acct: [id number] Name: SHEILA CROWE Rep #:[id number] : 1980 44 From: Ayaz MONCADA PCP: Dr. Torres Yao MD Status:REG S DC Y Race: C Location: [place] [address] Anesthesia: Postop Eval I Current Vital Signs [...] Postop Eval 1 completed: Yes 06/11/25 1033 MEDICAL STENOGRAPHER> Date _ Ayaz Pollard MEDICAL STENOGRAPHER Cosigner Signature: Date CC: ~ Signed [facility]08-13-2025 Procedure note [facility] Medical Records Department [address] [place] [address] Operative Report 06/11/25 0924 MR#: [id number] Acct: [id number] Name: SHEILA CROWE Rep #:[id number] : 1980 44 From: Mahad Saleh MD PCP: Dr. Torres Yao MD Status:REG S DC Location: [place] [address] Problems Associated Problem List Diagnoses (1) Impingement of left shoulder: (2) Left rotator cuff tear: (3) Left shoulder pain: Procedures Musculoskeletal 20xxx-29xxx: Other Procedure See Report Operative Report (Standard) Operative Information Date of Procedure: 06/11/25 Pre-Operative Diagnosis: L shoulder impingement, rotator cuff tear Post-Operative Diagnosis: same Surgery/Procedure Performed: L shoulder arthroscopy, SAD, RC repair, arthrex cuffmend graft automotive designer: Yes Air Tool Operator: shane Tasks completed by first aid attendant: Retracting Additional account assistant?: No Type of Anesthesia: Block,Regional and General [...] sutures that were stable and solid. The construction rep was removed. I then used the fiber [...] home according to day surgery criteria. CPT 16955, 61180, 71019, mod 22. Surgical Findings: as above Complications Complications: No Admit VTE Documentation VTE Present on Admission: No VTE Mechan Device Prophylaxis: SCD's VTE Pharm Prophylaxis ordered?: No Reason prophylaxis not ordered: Treatment Not Indicated 06/11/25932 Cosigner Signature (if applicable): CC: Dr. Mahad Saleh MD; Dr. Torres Yao MD~ Signed [facility]08-13-2025 Discharge summary [facility] Medical Records Department [address] [place] [address] Instructions for Home/Discharge Instructions 06/11/25921 MR#: [id number] Acct: [id number] Name: SHEILA CROWE Rep #:[id number] : [...] Instructions Patient Instructions: Shoulder Arthroscopy Print Language: Tajik Discharge Orders/Prescriptions Prescriptions: New oxycodone-acetaminophen [Endocet] 5-325 [...] Care 06/11/25 0924Scgeovanny Saleh MD CC: Dr. Torres Yao MD ~ [facility]08-13-2025 History and physical note Author [facility]ad [facility] Note Date/Time June 11, 2025 7: 05am [facility] Medical Records Department [address] [place] [address] History & Physical Exam 06/11/25 0704 MR#: [id number] Acct: [id number] Name: SHEILA CROWE Rep #:[id number] : 1980 44 From: Mahad Saleh MD PCP: Dr. Torres Yao MD Status:REG S DC Location: [facility] HPI - General HPI Narrative SHEILA CROWE, is a 44 F who presents for left shoulder arthroscopy, subacromialdecompression, rotator cuff repair, allograft tissue augmentation. No changes to history and physical exam. Left shoulder marked. Risks alternatives benefits as well as postoperative instructions and narcotic counseling given. Plan for preoperative block. The patient understands wished to proceed no further questions or concerns. MR#: [id number] Acct: [id number] Name: SHEILA CROWE Rep #: [id number] : 1980 Provider: Dr. Mahad Saleh MD Age/Sex: 44/F Location: [facility] Status: Signed Intake Vital Signs 04/21/2511:00 05/21/2511:11 [...] documented by [ ], acting as scribe. SHEIAL CROWE is a 44 year old F here today for FU L shoulder MRI. on disability for mental health, did PT for 15 visits, failed a cortisone injection. worse with even light lifting. Ortho Exam General General: Yes no acute distress Neurologic: Yes alert and Yes oriented x3 Psychologic: Yes reasonable and appropriate Supplemental Info [facility] Imaging Services [address] [place] [address] Upper Ext Joint Only(Routine) MR#: [id number] Acct: [id number] Name: SHEILA CROWE Rep #: [id number] : 1980 F 44 From: Tomer Arauz MD PCP: Dr. Torres Yao MD Status: REG CLI Study: Upper Ext Joint Only(Routine) Date of Exam: 05/20/25 Exam# [id number] Ordering Dr: Mahad Saleh MD PROCEDURE: UPPER [...] blood flow before exercises. 4. Anti-Inflammatory Medications: Cgwp-vkb-eozcrbb medications like ibuprofen or naproxen can help [...] Saleh MD; Dr. Torres Yao MD~ Signed [facility] Work Phone: 1(471) 446-116208-13-2025 Consult note Author Rocael Moctezuma [facility] Note Date/Time June 11, 2025 6: 53am [facility] Medical Records Department [address] [place] [address] Pre-Anesthesia Evaluation 06/11/2545 MR#: [id number] Acct: [id number] Name: SHEILA CROWE Rep #:[id number] : [...] tissue augmentation Anesthesia History Anesthesia History - newscast producer: Anesthesia History - newscast producer Hx Hospitalization No 05/29/25 15:27 Any Problems [...] take am of surgery PONV PONV - newscast producer: PONV - newscast producer Female Yes 05/29/25 15:27 HX of Motion [...] 06/11/25 05:57 Respiratory Assessment Respiratory Assessment - newscast producer: Respiratory Tract Infection Hx - newscast producer Hx Respiratory Tract Infection No 05/29/25 15:27 STOP Sleep Apnea STOP Sleep Apnea - newscast producer: STOP Sleep Apnea - newscast producer Hx Hypertension Yes: CONTROLLED WITH MED 05/29/25 [...] Tobacco Use History Tobacco Use History - newscast producer: Tobacco Use History - newscast producer Tobacco Use Smoking Status Former smoker 05/29/25 15:27 Hx Tobacco Use No 05/29/25 15:27 Years Smoking Packs Smoked per Day Smoking Cessation Date was No - quit smoking greater 05/29/25 15:27 within the last 15 years than 15 years ago Hx Smoking Cessation Date 10/30/09 05/29/25 15:27 Hx Smoking Cessation Counseling Hematologic Medial History Hematologic Hx - newscast producer: 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 Hx of Blood Transfusion No 05/29/25 15:27 [...] confused, unrespo /Reproduction History /Reproductive History - newscast producer: /Reproductive Hx- newscast producer Hx Now No 05/29/25 15:27 Gestational Age [...] MD Cosigner Signature: Date CC: ~ Signed [facility] Work Phone: 1(935) 939-373208-13-2025 History and physical note [facility] Medical Records Department [address] [place] [address] [place] [address] History & Physical Exam 06/11/25 0704 MR#: [id number] Acct: [id number] Name: SHEILA CROWE Rep #:[id number] : 1980 44 From: Mahad Saleh MD PCP: Dr. Torres Yao MD Status:REG S DC Location: [place] [address] HPI - General HPI Narrative SHEILA CROWE, is a 44 F who presents for left shoulder arthroscopy, subacromialdecompression, rotator cuff repair, allograft tissue augmentation. No changes to history and physical exam. Left shoulder marked. Risks alternatives benefits as well as postoperative instructions and narcotic counselinggiven. Plan for preoperative block. The patient understands wished to proceed no further questions or concerns. MR#: [id number] Acct: [id number] Name: SHEILA CROWE Rep #: [id number] : 1980 Provider: Dr. Mahad Saleh MD Age/Sex: 44/F Location: [facility] Status: Signed Intake Vital Signs 04/21/2511:00 05/21/2511:11 [...] Psychologic: Yes reasonable and appropriate Supplemental Info [facility] Imaging Services [address] [place], [place] [address] Upper Ext Joint Only(Routine) MR#: [id number] Acct: [id number] Name: SHEILA CROWE Rep #: [id number] : 1980 F 44 From: Tomer Arauz MD PCP: Dr. Torres Yao MD Status: REG CLI Study: Upper Ext Joint Only(Routine) Date of Exam: 05/20/25 Exam# [id number] Ordering Dr: Mahad Saleh MD PROCEDURE: UPPER [...] into the subacromial subdeltoid bursa. Reading [facility] Tommie independently reviewed the imaging. Concur with [...] blood flow before exercises. 4. Anti-Inflammatory Medications: Umcy-vow-wzudalv medications like ibuprofen or naproxen can help [...] fallen in the past year?: No [facility] Medical History Wears glasses Depression Anxiety Bipolar [...] Saleh MD; Dr. Torres Yao MD~ Signed [facility]08-13-2025 [facility] Medical Records Department [address] [place] [address] History Physical Exam 06/11/25 0704 MR#: [id number] Acct: [id number] Name: SHEILA CROWE Rep #: [id number] : 1980 44 From: Mahad Saleh MD PCP: Dr. Torres Yao MD Status:REG [facility] [place]: [place] [address] HPI - General HPI Narrative SHEILA CROWE, is a 44 F who presents for left shoulder arthroscopy, subacromial decompression, rotator cuff repair, allograft tissue augmentation. No changes to history and physical exam. Left shoulder marked. Risks alternatives benefits as well as postoperative instructions and narcotic counseling given. Plan for preoperative block. The patient understands wished to proceed no further questions or concerns. MR#: [id number] Acct: [id number] Name: SHEILA CROWE Rep #: [id number] : 1980 Provider: Dr. Mahad Saleh MD Age/Sex: 44/F Location[facility] Status: Signed Intake Vital Signs 04/21/2511:00 05/21/2511:11 [...] Psychologic: Yes reasonable and appropriate Supplemental Info [facility] Imaging Services [address] [place], [place] [address] Upper Ext Joint Only(Routine) MR#: [id number] Acct: [id number] Name: SHEILA CROWE Rep #: [id number] : 1980 F 44 From: Tomer Arauz MD PCP: Dr. 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 Hx Hospitalization No 05/29/25 15:27 Any Problems [...] take am of surgery PONV PONV - newscast producer: PONV - newscast producer Female Yes 05/29/25 15:27 HX of Motion [...] 06/11/25 05:57 Respiratory Assessment Respiratory Assessment - newscast producer: Respiratory Tract Infection Hx - newscast producer Hx Respiratory Tract Infection No 05/29/25 15:27 STOP Sleep Apnea STOP Sleep Apnea - newscast producer: STOP Sleep Apnea - newscast producer Hx Hypertension Yes: CONTROLLED WITH MED 05/29/25 [...] Tobacco Use History Tobacco Use History - newscast producer: Tobacco Use History - newscast producer Tobacco Use Smoking Status Former smoker 05/29/25 15:27 Hx Tobacco Use No 05/29/25 15:27 Years Smoking Packs Smoked per Day Smoking Cessation Date was No - quit smoking greater 05/29/25 15:27 within the last 15 years than 15 years ago Hx Smoking Cessation Date 10/30/09 05/29/25 15:27 Hx Smoking Cessation Counseling Hematologic Medial History Hematologic Hx - newscast producer: 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 Delvin Saleh MD Age/Sex: 44/F Location: [facility] Status: Signed Intake Vital Signs 04/21/25 11:00 [...] Psychologic: Yes reasonable and appropriate Supplemental Info [facility] Imaging Services [address] [place] [address] Upper Ext Joint Only(Routine) MR#: [id number] Acct: [id number] Name: SHEILA CROWE Rep #: [id number] : 1980 F 44 From: Tomer Arauz MD PCP: Dr. Torres Yao MD Status: REG CLI Study: Upper Ext Joint Only(Routine) Date of Exam: 05/20/25 Exam# [id number] Ordering Dr: Mahad Saleh MD PROCEDURE: UPPER [...] into the subacromial subdeltoid bursa. Reading [facility]: [facility] Reilly independently reviewed the imaging. Concur [...] blood flow before exercises. 4. Anti-Inflammatory Medications: Ibon-uao-jgrjhmy medications like ibuprofen ornaproxen can help reduce [...] Cosigner Signature: Date (if applicable) CC: ~ [facility]07-24-2025 Progress note Author Mahad Saleh [facility] Note Date/Time May 22, 2025 10:4 5am [facility] [address] [place] [address] [place] [address] OFFICE VISIT Date of Service: 05/22/25 MR#: [id number] Acct: [id number] Name: SHEILA CROWE Rep #: [id number] : 1980 Provider: Dr. Delvin Saleh MD Age/Sex: 44/F Location: [facility] Status: Signed Intake Vital Signs 04/21/25 11:00 [...] Psychologic: Yes reasonable and appropriate Supplemental Info [facility] Imaging Services [address] [place] [address] Upper Ext Joint Only(Routine) MR#: [id number] Acct: [id number] Name: SHEILA CROWE Rep #: [id number] : 1980 F 44 From: Tomer Arauz MD PCP: Dr. Torres Yao MD Status: REG CLI Study: Upper Ext Joint Only(Routine) Date of Exam: 05/20/25 Exam# [id number] Ordering Dr: Mahad Saleh MD PROCEDURE: UPPER [...] blood flow before exercises. 4. Anti-Inflammatory Medications: Uqdu-lsw-hudatis medications like ibuprofen ornaproxen can help reduce [...] Cosigner Signature: Date (if applicable) CC: ~ [facility] Work Phone: 1(405) 304-110307-18-2025 NoteHNO ID: [id number] Author: TORRES YAO MD Service: ? Author [...] affected area. ketoconazole (NIZORAL) 2 % shampoo lg-ru-kxyg-FA-Ca carb-vit K (WOMEN'S MULTIVITAMIN) 18 mg-400 mcg- [...] EXPOSED ROOT (ELEVATION AND/OR FORCEPS REMOVAL) 1995 [place] TONSILLECTOMY PRIMARY/SECONDARY Tonsillectomy FAMILY HISTORY Problem [...] 02/14/2025 83.9 kg ( (more content not included)...[facility] 05-16-2025 History of Present illness [...] affected area. ketoconazole (NIZORAL) 2 % shampoo ke-kr-osqh-FA-Ca carb-vit K (WOMEN'S MULTIVITAMIN) 18 mg-400 mcg- [...] EXPOSED ROOT (ELEVATION AND/OR FORCEPS REMOVAL) 1995 [place] TONSILLECTOMY PRIMARY/SECONDARY <AGE 12 1994 Tonsillectomy [...] to patient) Torres Yao MD Recording using Flavorvanil software for draft documentation of the visit was discussed with the patient/authorized customer solutions representative; all questions welcomed and answered. Patient/authorized customer solutions representative agreed to proceed documented in this encounterBrown Memorial Hospital07-18-2025 Instructions* Patient Instructions* Torres Yao MD - 05/16/2025 1:56 PM EDT [facility] [address] [place] [address] [employer] [address] [place] [address] [address] [address] [facility] [address] [facility] [address] [place] [address] Stephanie [facility] [address] [facility] [address] [place] [address] [facility] [address] [place] [address] [employer] [address] [facility] [place] [address] [facility] [address] [place] [address] documented in this encounterBrown Memorial Hospital07-17-2025 Instructions* Patient Instructions* Freeman Sarabia [...] 3 months Continue to FU with the human resources training manager for the neuropathy. FU with your psychiatrist regarding the sleep/miguel issues Continue with the kinesiology tape/roller ball on the feet. You can use CBD oil, just avoid THC, and delta 8 and delta 9. FU with Dr. Saleh with [facility] for the upcoming left shoulder MRI. Supervising Physiciain - Dr. Isaac Cannon MD documented in this encounterBrown Memorial Hospital07-17-2025 NoteHNO ID: [id number] Author: FREEMAN SARABIA PA-C Service: ? Author Type: Physician Fish Hatcher[employer] Superintendent Type: Progress Notes Filed: 05/15/2025 12:06 Note Text: This note was created using Antennariter. Subjective Sheila Crowe is a 44 year [...] that was ordered by Dr. Saleh at [facility] 03/14/2025 05/15/2025 INTAKE PAIN ASSESSMENT [...] EXPOSED ROOT (ELEVATION AND/OR FORCEPS REMOVAL) 1995 [place] TONSILLECTOMY PRIMARY/SECONDARY Tonsillectomy Social History Tobacco [...] rotation and abduction. Lupe (more content not included)...[facility]07-17-2025 History of Present illness Narrative* Freeman Sarabia PA-C - 05/15/2025 11:40 AM EDT This note was created using Antennariter. Subjective Sheila Crowe is a 44 year [...] that was ordered by Dr. Saleh at [facility] 03/14/2025 05/15/2025 INTAKE PAIN ASSESSMENT Are [...] EXPOSED ROOT (ELEVATION AND/OR FORCEPS REMOVAL) 1995 [place] TONSILLECTOMY PRIMARY/SECONDARY <AGE 12 1994 Tonsillectomy [...] 3 months Continue to FU with the human resources training manager for the neuropathy. FU with your psychiatrist regarding the sleep/miguel issues Continue with the kinesiology tape/roller ball on the feet. You can use CBD oil, just avoid THC, and delta 8 and delta 9. FU with Dr. Saleh with [facility] for the upcoming left shoulder MRI. Freeman Sarabia PA-C documented in this encounterBrown Memorial Hospital07-07-2025 Telephone encounter Note * Telephone Encounter - Cass Nelson MA - 05/05/2025 5:14 PM EDT Patient was made aware of the results. Patient verbalizes understanding. Cass Nelson Ma [facility]07-07-2025 Miscellaneous Notes* Telephone Encounter - Cass Nelson MA - 05/05/2025 5:14 PM EDT Patient was made aware of the results. Patient verbalizes understanding. Cass Nelson Ma * Telephone Encounter - Ellen Rene APRN.CNP - 05/05/2025 4:37 PM EDT Please let patient know that bladder ultrasound did not show urinary retention and everything was normal. documented in this encounterBrown Memorial Hospital07-07-2025 Telephone encounter Note * Telephone Encounter - Ellen Rene APRN.CNP - 05/05/2025 4:37 PM EDT Please let patient know that bladder ultrasound did not show urinary retention and everything was normal. [facility]07-07-2025 History of Present illness Narrative* [...] PATIENT PRESENTS WITH AN IMPLANTABLE OR ATTACHED SCREENPLAY WRITER: No RADIOLOGY DEPARTMENT: Ultrasound PERIPHERAL IV DATA: Not applicable SIGNED BY: Jaye Marks RDMS, T May 05, 2025 3:07 PM documented in this encounterBrown Memorial Hospital07-07-2025 NoteHNO ID: [id number] Author: JAYE MARKS RT(Brittany) Service: ? Author [...] PATIENT PRESENTS WITH AN IMPLANTABLE OR ATTACHED SCREENPLAY WRITER: No RADIOLOGY DEPARTMENT: Ultrasound PERIPHERAL IV DATA: Not applicable SIGNED BY: Jaye Marks RDMS, RVT May 05, 2025 3:07 [facility]07-07-2025 Instructions* Patient Instructions* Ellen Rene APRN.CNP - 05/05/2025 1:07 PM EDT [...] your bladder is emptying. documented in this encounterBrown Memorial Hospital07-07-2025 NoteHNO ID: [id number] Author: ELLEN RENE APRN.CNP Service: ? Author [...] prescribed by a pain management provider at [facility]. - Uses TENS unit and [...] EXPOSED ROOT (ELEVATION AND/OR FORCEPS REMOVAL) 1995 [place] TONSILLECTOMY PRIMARY/SECONDARY Tonsillectomy ALLERGIES Clindamycin, Levaquin [...] % combo pack Apply to affected area. sh-tk-dbyw-FA-Ca carb-vit K (WOMEN'S MULTIVITAMIN) 18 mg-400 mcg- [...] (+) constipation, (+) diarrhea (more content not included)...[facility]07-07-2025 History of Present illness Narrative* Ellen Rene APRN.[facility] - 05/05/2025 12:50 PM EDT This [...] prescribed by a pain management provider at [facility]. - Uses TENS unit and [...] EXPOSED ROOT (ELEVATION AND/OR FORCEPS REMOVAL) 1995 [place] TONSILLECTOMY PRIMARY/SECONDARY <AGE 12 1994 Tonsillectomy [...] % combo pack Apply to affected area. le-se-rnua-FA-Ca carb-vit K (WOMEN'S MULTIVITAMIN) 18 mg-400 mcg- [...] note to the pain management provider at [facility] regarding the current swelling and [...] improvement. Ellen Rene APRN.BASHIR documented in this encounterBrown Memorial Hospital07-07-2025 Telephone encounter Note * Telephone [...] days but not today. Protocols used: Urinary Zadwhmcy-IPSAB-TH [facility]07-07-2025 Miscellaneous Notes* Telephone Encounter - [...] days but not today. Protocols used: Urinary Mevmrznq-KQEZJ-AU documented in this encounterBrown Memorial Hospital06-23-2025 Evaluation note* Diagnosis Onset Date Resolution Status Admit Date Left shoulder pain acute March 312024 10:59am Impingement of left shoulder acute May 22, 2025 10:19am Left rotator cuff tear acute Ju ly 2024 10:19am Left shoulder pain acute April 302024 10:19am [facility] Work Phone: [phone]) [phone] Evaluation note* Diagnosis Onset Date Resolution Status [...] shoulder pain acute June 11, 2025 5:18am [facility] Work Phone: 1(985) 262-872306-23-2025 Evaluation note* Diagnosis Onset Date Resolution Status [...] shoulder pain acute June 13, 2025 1:01pm [facility] Work Phone: 1(600) 430-804906-23-2025 Evaluation note* Diagnosis Onset Date Resolution Status [...] shoulder pain acute June 24, 2025 1:03pm [facility] Work Phone: [phone] Evaluation note* Diagnosis Onset Date Resolution Status [...] shoulder pain acute Septem yvette 2024 12:49pm [facility] Work Phone: 1(983) 631-492206-17-2025 Telephone encounter Note* Telephone Encounter - Bertha Flynn LPN - 04/15/2025 4:17 PM EDT Referral fax confirmation showing at 0615. [facility]06-17-20[facility] Miscellaneous Notes* Telephone Encounter - [...] will refax the referral. documented in this encounterBrown Memorial Hospital06-17-2025 Telephone encounter Note * Telephone [...] 02/18/25, explained we will refax the referral. [facility]05-16-2025 History of Present illness Narrative* [...] PATIENT PRESENTS WITH AN IMPLANTABLE OR ATTACHED SCREENPLAY WRITER: No RADIOLOGY DEPARTMENT: Mammography PERIPHERAL IV DATA: Not applicable SIGNED BY: Mary Vargas March 14, 2025 1:39 PM documented in this encounterBrown Memorial Hospital05-16-2025 NoteHNO ID: [id number] Author: TATI ODELL Mammo Tech Service: ? Author Type: Senior Operator Type: Progress Notes Filed: 03/14/2025 13:39 Note [...] PATIENT PRESENTS WITH AN IMPLANTABLE OR ATTACHED SCREENPLAY WRITER: No RADIOLOGY DEPARTMENT: Mammography PERIPHERAL IV DATA: Not applicable SIGNED BY: Tati Odell [employer] [employer] March 14, 2025 1:39 [facility]05-16-2025 NoteHNO ID: [id number] Author: TORRES YAO MD Service: ? Author [...] due to psychiatrist's 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 - Next psychology appointment in [...] 120 days. ketoconazole (NIZORAL) 2 % shampoo yw-kh-tfhl-FA-Ca carb-vit K (WOMEN'S MULTIVITAMIN) 18 mg-400 mcg- [...] EXPOSED ROOT (ELEVATION AND/OR FORCEPS REMOVAL) 1995 [place] TONSILLECTOMY PRIMARY/SECONDA (more content not included)...[facility]05-16-2025 History of Present illness Narrative* [...] due to psychiatrist's 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 - Next psychology appointment in [...] 120 days. ketoconazole (NIZORAL) 2 % shampoo xg-ay-vozz-FA-Ca carb-vit K (WOMEN'S MULTIVITAMIN) 18 mg-400 mcg- [...] EXPOSED ROOT (ELEVATION AND/OR FORCEPS REMOVAL) 1995 [place] TONSILLECTOMY PRIMARY/SECONDARY <AGE 12 1994 Tonsillectomy [...] with the psychiatrist upon her return. 2. penitentiary (current) use of insulin (HCC) (Z79.4) - [...] to patient) Torres Yao MD Recording using Flavorvanil software for draft documentation of the visit was discussed with the patient/authorized customer solutions representative; all questions welcomed and answered. Patient/authorized customer solutions representative agreed to proceed documented in this encounterBrown Memorial Hospital05-16-2025 Instructions* Patient Instructions* Torres Yao [...] pain relief if needed. documented in this encounterBrown Memorial Hospital04-18-2025 Instructions* Patient Instructions* Freeman Sarabia [...] 3 months Continue to FU with the human resources training manager for the neuropathy. FU with your psychiatrist regarding the sleep/miguel issues Continue with the kinesiology tape/roller ball on the feet. You can use CBD oil, just avoid THC, and delta 8 and delta 9. Supervising Physiciain - Dr. Isaac Cannon MD documented in this encounterBrown Memorial Hospital04-18-2025 NoteHNO ID: [id number] Author: FREEMAN SARABIA PA-C Service: ? Author Type: Physician Fish Hatchery Superintendent Type: Progress Notes Filed: 02/14/2025 13:55 Note Text: This note was created using Antennariter. Subjective Sheila Crowe is a 44 year [...] daily Benefit: helps Physical Therapy: 01/2025 - [facility] Last UDS: 09/28/23 - not currently [...] EXPOSED ROOT (ELEVATION AND/OR FORCEPS REMOVAL) 1995 [place] TONSILLECTOMY PRIMARY/SECONDARY Tonsillectomy Social History Tobacco [...] the glenohumoral joint. ROM (more content not included)...[facility] 02-14-2025 History of Present illness Narrative* Freeman Sarabia PA-C - 02/14/2025 1:34 PM EDT This note was created using Antennariter. Subjective Sheila Crowe is a 44 year [...] EXPOSED ROOT (ELEVATION AND/OR FORCEPS REMOVAL) 1995 [place] TONSILLECTOMY PRIMARY/SECONDARY <AGE 12 1994 Tonsillectomy [...] 3 months Continue to FU with the human resources training manager for the neuropathy. FU with your psychiatrist [...] daily-helpful 09/17/24-b/l subacromial bursa documented in this encounterBrown Memorial Hospital04-18-2025 NoteHNO ID: [id number] Author: CARMEL STARK, RN Service: ? Author Type: Registered Nurse Type: Progress Notes Filed: 02/14/2025 13:55 Note Text: Lyrica am/ Meloxicam yest. Meds help pain Denies side effects TENS, daily-helpful 09/17/24-b/l subacromial bursSaint [facility]-2025 NoteHNO ID: [id number] Author: JOVAN PAIGE, JESUS Service: ? Author [...] Goals for Episode of Care: established 11/25/24 [place] in home exercise program. Partially met Patient [...] Session Stop Time : 1620 Jovan Paige [facility]03-21-2025 NoteHNO ID: [id number] Author: LEMON, JOANNA, PT Service: ? Author [...] Session Stop Time : 1347 Joanna Rey, [facility]03-21-2025 History of Present illness Narrative* Joanna Rey, [...] 1347 Joanna Rey PT documented in this encounterBrown Memorial Hospital03-18-2025 NotePatient Outreach (FAMPWS) SHEILA CROWE ([id number]) 1980 F Date Time Provider Department 01/14/25 [facility] During your visit today, we recorded the [...] for screening mammogram for breast cancer [Z12.31] Order(s):[facility] SCREENING W CHANA [[id number]] Order #: [id number] FUTURE Prescriptions as of 02/14/2025 - pregabalin [...] - ketoconazole (NIZORAL) 2 % shampoo - qu-rj-gvzp-FA-Ca carb-vit K (WOMEN'S MULTIVITAMIN) 18 mg-400 mcg- [...] Osteoarthritis of knee [M17.9] 03/18/2020 04/12/2023 Other rn long term care (current) drug therapy [Z79.899]09/24/2018 Sacroiliitis (HCC) [M46.1] 03/02/2022 Subacromial bursitis of both shoulders [M75.51,*11/30/2022 Primary osteoarthritis of both knees [M17.0] 11/30/2022 History of diabetes mellitus [Z86.39] 10/13/2023 Neuropathy involving both lower extremities [G5*02/07/2024 Acute midline low back pain without sciatica [M*06/03/2024 Bilateral shoulder region arthritis [M19.011, M*11/25/2024 Encounter Status:Closed by mySugr, PRODUSER on 02/14/25[facility] 01-09-2025 NoteHNO ID: [id number] Author: SALVADOR HART PT Service: ? Author [...] : 1142 Rachel Whiteside, HARMAN Hart PT, DPT.[facility]03-13-2025 History of Present illness Narrative* Salvador Hart, [...] HARMAN Hart, PT, DPT. documented in this encounterBrown Memorial Hospital03-10-2025 NoteHNO ID: [id number] Author: JOANNA REY, PT Service: ? Author [...] Care: established 11/25/24 Goals updated on 01/06/2025. [place] in home exercise program.(Partially Met)-decreased frequency Patient [...] Patient to be seen for Therapeutic exercise (11569), Neuromuscular re-education (98119), Manual therapy (33917), Self-detention management (08863), Patient/Family/Caregiver Education PLAN FOR NEXT VISIT: Continue [...] before stretching and co (more content not included)...[facility]03-10-2025 History of Present illness Narrative* [...] Care: established 11/25/24 Goals updated on 01/06/2025. [place] in home exercise program.(Partially Met)-decreased frequency Patient [...] Patient to be seen for Therapeutic exercise (82886), Neuromuscular re-education (25540), Manual therapy (37003), Self-detention management (65134), Patient/Family/Caregiver Education PLAN FOR NEXT VISIT: Continue [...] 1302 Joanna Rey PT documented in this encounterBrown Memorial Hospital03-07-2025 NoteHNO ID: [id number] Author: JOANNA REY PT Service: ? Author [...] Time : 1137 Rachel Whiteside, HARMAN Rey, [facility]03-07-2025 History of Present illness Narrative* Joanna Rey, [...] Whiteside, HARMAN Rey PT documented in this encounterBrown Memorial Hospital03-04-2025 NoteHNO ID: [id number] Author: KIMBERLEY TY PT Service: ? Author [...] Session Stop Time : 1225 Rachel Alfonsostarla, SMOKE ROOM OPERATOR Kimberley Ty, [facility] History of Present illness Narrative* Kimberley Ty, [...] 1225 HARMAN Childs PT documented in this encounterBrown Memorial Hospital02-28-2025 Telephone encounter Note * Telephone Encounter - Freeman Sarabia PA-C - 12/27/2024 3:35 PM EST The following approved medication requests have been transmitted electronically. Requested Prescriptions Pending Prescriptions Disp Refills pregabalin (LYRICA) 150 mg capsule 90 capsule 3 Sig: Take 1 capsule by mouth three times a day for 120 days. Freeman Sarabia PA-C [facility]02-28-2025 Miscellaneous Notes* Telephone Encounter - [...] Panel: No results found for: UQCANN, UQBNZL, JQQ2GGF, UQAMPH, UQMAMP, UQBUPRE, UQNORBUP, UQMTHD, UQEDDP, UQTRAM, [...] advise. Cass Frey RN documented in this encounterBrown Memorial Hospital02-28-2025 Telephone encounter Note * Telephone [...] Panel: No results found for: UQCANN, UQBNZL, FAQ3NUK, UQAMPH, UQMAMP, UQBUPRE, UQNORBUP, UQMTHD, UQEDDP, UQTRAM, [...] Please review and advise. Cass Frey RN [facility]02-25-2025 NoteHNO ID: [id number] Author: KIMBERLEY TY, PT Service: ? Author [...] Session Stop Time : 1513 HARMAN Childs, [facility]02-25-2025 History of Present illness Narrative* Kimberley Ty, [...] 1513 HARMAN Childs PT documented in this encounterBrown Memorial Hospital02-12-2025 History of Present illness Narrative* Rachel Whiteside PTA - 12/11/2024 3:19 PM EST Program_ID:[id number] Access Code: [email or web address] URL: [email or web address] Date: 12-11-2024 Prepared By: Rachel Whiteside Program [...] 1526 HARMAN Childs PT documented in this encounterBrown Memorial Hospital02-12-2025 NoteHNO ID: [id number] Author: KIMBERLEY TY PT Service: ? Author [...] Session Stop Time : 1526 HARMAN Childs, [facility]02-10-2025 History of Present illness Narrative* Rachel Whiteside PTA - 12/09/2024 11:26 AM EST Program_ID:[id number] Access Code: [email or web address] URL: [email or web address] Date: 12-09-2024 Prepared By: Rachel Whiteside Program [...] 1137 HARMAN Childs PT documented in this encounterBrown Memorial Hospital02-10-2025 NoteHNO ID: [id number] Author: JOANNA REY PT Service: ? Author [...] Session Stop Time : 1137 Rachel Whiteside, SMOKE ROOM OPERATOR Joanna Rey, [facility]01-27-2025 History of Present illness Narrative* Joanna Rey, PT - 11/25/2024 6:05 PM EST Program_ID:[id number] Access Code: [email or web address] URL: [email or web address] Date: 11-25-2024 Prepared By: Salvador Hart Program [...] Goals for Episode of Care: established 11/25/24 [place] in [place] exercise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 [...] Please review and advise. Joanna Sutherland RN [facility]05-06-[facility] History of Present illness Narrative* Yomi Suarez MD - 03/04/2024 1:51 PM EDT Chief Complaint Patient presents with: Sleep Problem HPI Sheila Crowe is a 43 year old female who presents here today for ER follow up. Patient was evaluated at [facility] ER on 02/28 for complaint of difficulty sleeping. Noted shehas history of bipolar disorder which is managed by psychiatry at [facility]. Difficulty sleeping related to manic symptoms [...] Buprenorphine and flexeril from [facility] in [facility]. She states she takes this for [...] EXPOSED ROOT (ELEVATION AND/OR FORCEPS REMOVAL) 1995 [place] TONSILLECTOMY PRIMARY/SECONDARY <AGE 12 1994 Tonsillectomy [...] a day as needed for muscle spasm. fa-vl-gkhz-FA-Ca carb-vit K (WOMEN'S MULTIVITAMIN) 18 mg-400 mcg- [...] nightly benzos due to potential interaction causing APPLIED BEHAVIOR SPECIALIST depression and possible overdose. Patient denies SI/HI at this time and feels safe going home. 2. Generalized anxiety disorder - ICD9: 300.02, ICD10: F41.1 See above. F/u with psychiatry. 3. Bipolar I disorder (HCC) - ICD9: 296.7, ICD10: F31.9 See above. F/u with psychiatry. 4. Other rn long term care (current) drug therapy - ICD9: V58.69, ICD10: Z79.899 See above. F/u with psychiatry. 5. History of suicide attempt - ICD9: V11.8, ICD10: Z91.51 See above. F/u with psychiatry. Yomi Suarez MD documented in this encounterBrown Memorial Hospital05-02-2024 Hospital Discharge instructions Patient Education [...] there) Anxiety, depression Several days without sleeping 4425-2756 [employer]. [address] [place] [address]. All rights reserved. This information is not intended as a substitute for professional medical care. Always follow yourtrinity health systemcare professional's instructions. Follow Up Care 02/29/2024 17:33:21 With:TORRES YAO Address: [address] [address] [phone] Business (1) When:2-4 days Comments:Use Ativan as needed, this is only short-term medication. You must follow-up with your doctor, return if any worsening or concerning symptoms. [facility] 05-02-2024 Note Discharge Instructions Thank you for allowing [facility] to assist you with your healthcare needs. [...] if any worsening or concerning symptoms. Where: [facility] [address] [place] [address]- [phone] Business (1) Allergies clindamycin penicillin sulfa drug [...] may report side effects to FDA at 7-719-BFH-5368. What other drugs will affect lorazepam? Taking [...] drugs may affect lorazepam. This includes prescription wvuhfvd-xqy-ddiepad medicines, vitamins, and herbal products. Not all [...] to ensure that the information provided by [employer]. ('[employer]') is accurate, up-to-date, and complete, but no guarantee is made to that effect. Drug information contained herein may be time sensitive. [employer] information has been compiled for use by healthcare practitioners and consumers in the [place] and therefore [employer] does not warrant that uses outside of the [place] are appropriate, unless specifically indicated otherwise. [employer] drug information does not endorse drugs, diagnose patients or recommend therapy. [employer] drug information isan informational resource designed to [...] effective or appropriate for any given patient. [employer] does not assume any responsibility for any aspect of healthcare administered with the aid of information [employer] provides. The information contained herein is not intended to cover all possible uses, directions, precautions, warnings, drug interactions, allergic reactions, or adverse effects. If you have questions about the drugs you are taking, check with your doctor, nurse or pharmacist. Copyright 3843-9767 [employer]. Version: 10.04. Revision Date: 03/20/2023. Education Materials [...] there) Anxiety, depression Several days without sleeping 4009-7019 [employer]. [address] [place] [address], [place] [address]. All rights reserved. This information is not intended as a substitute for professional medical care. Always follow yourhealthcare professional's instructions. Additional Information VACCINATE! IT SAVES LIVES! Members of the community who have not yet received the COVID-19 vaccine and would like to receive it can visit one of [facility] vaccine clinics. There are many vaccine clinic locations within the [facility]. For locations and available times, please visit [email or web address] It is important to note that some COVID mobile vaccine clinics are held outdoors and may be canceled in rainy or stormy conditions. To learn more about pediatric vaccinations (ages 5-11), we invite you to visit the [facility] webpage. https://www.[email or web address].org/pages/[email or web address]-Tjdis-Pkpykflzcrf-Ogifypewxn-Zxjev-Mad stions.htmlTo learn more about the COVID-19 vaccine, we invite you to visit the CDC website for a list of frequently asked questions. https://www.cdc.gov/coronavirus/2019-ncov/vaccines/faq.html [employer] Patient Portal Access Instructions: Stay connected with your healthcare team and access your personal medical information anytime with the [employer] Patient Portal. If you would like a full copy of your medical records please contact the [facility] Medical Records Department Monday through Monday between 8a.m. and 4:30p.m. Please follow the directions below to access the portal: 1.Access the email account you provided upon registration to the hospital.2.Look for an invitation email from [facility].3.Open the email and access the invitation link: Accept Invitation to [employer]4.Fill in the required mathew to create your account. Sign into [email or web address] with your username and password that you [...] you will allow to register on the [employer] Patient Portal for access to your information. You can also access the [employer] Patient Portal on the [employer] shruthi. Simply click on Health Records under [employer] and then click on the [employer] logo. HOW TO SAFELY DISPOSE OF PRESCRIPTION [...] Call your local pharmacy or go to http://bit.Trovix/1R5Tf2j to find one close to you.3.Make use of household items: Use cat litter or old coffee grounds to dispose medications if other options arenot available. Mix your drugs with these household products, seal them in an airtight container andthrow it into the garbage. Call [facility]: [phone] to be sure your drugs can be [...] aware that I should contact my doctor. Patient/Microbiology Soil Scientist Signature: Date/Time: Relationship to Patient: Witness Name/Signature: Date/Time: [facility]04-11-2024 Miscellaneous Notes* Telephone Encounter - Freeman [...] Panel: No results found for: UQCANN, UQBNZL, HKR6OOE, UQAMPH, UQMAMP, UQBUPRE, UQNORBUP, UQMTHD, UQEDDP, UQTRAM, UQDTRM, UQFNTL, UQNFTL, UQCODE, UQMORP, UQDCDN, UQHCOD, UQOXYC, UQHMOR, UQOXYM, UQCREA, UQPH, UQSPGR, UQOXID, UQSPQ @FLOW([id number])@ Lab Results Component Value Date SUMM FINAL [...] advise. Cass Frey RN documented in this encounterBrown Memorial Hospital04-10-2024 Instructions* Patient Instructions* Min Velazco [...] in 6 weeks time. documented in this encounterBrown Memorial Hospital04-10-2024 History of Present illness Narrative* Min Velazco MD - 02/07/2024 1:15 PM EDT This note was created using Waterfall. Subjective Sheila Crowe is a 43 year [...] errors. Min Velazco MD documented in this encounterBrown Memorial Hospital04-01-2024 History of Present illness Narrative* [...] PATIENT PRESENTS WITH AN IMPLANTABLE OR ATTACHED SCREENPLAY WRITER: No RADIOLOGY DEPARTMENT: General X-ray: Exam(s) Completed: Abdomen X-Ray: Abdomen PERIPHERAL IV DATA: Not applicable SIGNED BY: RT Janice(Brittany) January 29, 2024 3:16 PM documented in this encounterBrown Memorial Hospital04-01-2024 History of Present illness Narrative* [...] States her Spironolactone was increased by her Hospital Admitting Clerk and was told this could happen. Has [...] affected area. ketoconazole (NIZORAL) 2 % shampoo vy-cc-tuqt-FA-Ca carb-vit K (WOMEN'S MULTIVITAMIN) 18 mg-400 mcg- [...] EXPOSED ROOT (ELEVATION AND/OR FORCEPS REMOVAL) 1995 [place] TONSILLECTOMY PRIMARY/SECONDARY <AGE 12 1994 Tonsillectomy [...] tenderness. No rebound or guarding. Chaperoned by FOREST FIRE CONTROL OFFICER. Rectal shows no fissures or hemorrhoids. No [...] if worsens, to ER documented in this encounterBrown Memorial Hospital03-18-2024 Miscellaneous Notes* Telephone Encounter - [...] Panel: No results found for: UQCANN, UQBNZL, RNT6FWP, UQAMPH, UQMAMP, UQBUPRE, UQNORBUP, UQMTHD, UQEDDP, UQTRAM, UQDTRM, UQFNTL, UQNFTL, UQCODE, UQMORP, UQDCDN, UQHCOD, UQOXYC, UQHMOR, UQOXYM, UQCREA, UQPH, UQSPGR, UQOXID, UQSPQ @FLOW([id number])@ Lab Results Component Value Date SUMM FINAL [...] advise. Hilda Carvalho RN documented in this encounterBrown Memorial Hospital03-07-2024 Hospital Discharge instructions* Discharge Instr [...] normally would, but you do need a line haul driver. Additional Instructions: documented in this encounterBrown Memorial Hospital03-07-2024 Surgical operation note* Operative Report - Min Velazco MD - 01/04/2024 2:40 PM EST Summary: bilateral subacromial bursae injection Subacromial Bursa Injection PROCEDURE: Bilateral subacromial bursae injection CPT code: 51414-67 PREPROCEDURE DIAGNOSIS: subacromial bursitis POSTPROCEDURE DIAGNOSIS: same [...] 2024 TIME: 2:44 PM documented in this encounterBrown Memorial Hospital02-23-2024 Instructions* Patient Instructions* Freeman Sarabia [...] 1 visit Continue to FU with the human resources training manager for the neuropathy. Continue with the kinesiology [...] subacromial bursa injections x 1 visit A line haul driver is required: No Oral Sedation is requested : No If you are receiving oral sedation, you may eat a light meal. Clothing to wear: Back injections - elastic waist/jogging pants Neck injections - wide neck or button down shirt; please do not wear neck jewelry Plan to take it easy the rest of the day following your procedure. You may resume normal kuskgiusvl92 hours following your procedure or as otherwise instructed. Special Instructions - NONE documented in this encounterBrown Memorial Hospital02-23-2024 History of Present illness Narrative* Freeman Sarabia PA-C - 12/22/2023 12:59 PM EST This note was created using Antennariter. Subjective Sheila Crowe is a 43 year [...] EXPOSED ROOT (ELEVATION AND/OR FORCEPS REMOVAL) 1995 [place] TONSILLECTOMY PRIMARY/SECONDARY <AGE 12 1994 Tonsillectomy [...] 1 visit Continue to FU with the human resources training manager for the neuropathy. Continue with the kinesiology [...] G57.93 Freeman Sarabia PA-C documented in this encounterBrown Memorial Hospital02-16-2024 Miscellaneous Notes* Telephone Encounter - [...] Panel: No results found for: UQCANN, UQBNZL, VRJ7GMQ, UQAMPH, UQMAMP, UQBUPRE, UQNORBUP, UQMTHD, UQEDDP, UQTRAM, UQDTRM, UQFNTL, UQNFTL, UQCODE, UQMORP, UQDCDN, UQHCOD, UQOXYC, UQHMOR, UQOXYM, UQCREA, UQPH, UQSPGR, UQOXID, UQSPQ @FLOW([id number])@ Lab Results Component Value Date SUMM FINAL [...] advise. Hilda Carvalho RN documented in this encounterBrown Memorial Hospital02-13-2024 Miscellaneous Notes* Letter - Coordinator, Mammography - 12/12/2023 1:40 PM EST December 13, 2023 PID: [id number] Sheila Fernández [address] [place] [address] Dear , We are pleased to inform [...] report will be [facility] at [facility] as part of your permanent medical record and are available for your continuing care. Thank you for allowing us to help in meeting your health care needs. Sincerely, Dr. Sanches Interpreting Radiologist [facility] (Normal over 40) documented in this encounterBrown Memorial Hospital02-06-2024 Evaluation + Plan note Diagnostic Tests Pending * JONATHAN (serum) 2/6/24 * Methylmalonic Acid, Serum 2/6/24 * QUIRINO Panel 2/6/24 * Vitamin B6, Plasma 2/624 * Vitamin B1 (Thiamine), Blood 2/624 * Rheumatoid Factor 12/05/23 [facility] 12-15-2023 History of Present illness Narrative* [...] affected area. ketoconazole (NIZORAL) 2 % shampoo ir-pb-dkcs-FA-Ca carb-vit K (WOMEN'S MULTIVITAMIN) 18 mg-400 mcg- [...] EXPOSED ROOT (ELEVATION AND/OR FORCEPS REMOVAL) 1995 [place] TONSILLECTOMY PRIMARY/SECONDARY <AGE 12 1994 Tonsillectomy [...] for annual exam in one year. - [facility] SCREENING Torres Yao MD documented in this encounterBrown Memorial Hospital12-11-2023 Miscellaneous Notes* Telephone Encounter - Freeman Sarabia PA-C - 10/09/2023 2:27 PM EST The following approved medication requests have been transmitted electronically. Requested Prescriptions Pending Prescriptions Disp Refills pregabalin (LYRICA) 75 mg capsule 90 capsule 3 Sig: Take 1 capsule by mouth three times a day for 120 days. Fremean Sarabia PA-C * Telephone Encounter - Kristal Luo RN - 10/09/2023 1:19 PM EST Patient phones requesting refills as follows: Requested Prescriptions Pending Prescriptions Disp Refills pregabalin (LYRICA) 75 mg capsule 90 capsule 3 Sig: Take 1 capsule by mouth three times a day for 120 days. Please review and advise. Kristal Luo RN documented in this encounterBrown Memorial Hospital11-30-2023 Instructions* Patient Instructions* Freeman Sarabia [...] 6 weeks Continue to FU with the human resources training manager for the neuropathy. Continue with the kinesiology [...] seen at this time. documented in this encounterBrown Memorial Hospital11-30-2023 History of Present illness Narrative* Freeman Sarabia PA-C - 09/28/2023 2:00 PM EST This note was created using Antennariter. Subjective Sheila Crowe is a 42 year [...] EXPOSED ROOT (ELEVATION AND/OR FORCEPS REMOVAL) 1995 [place] TONSILLECTOMY PRIMARY/SECONDARY <AGE 12 1994 Tonsillectomy [...] 6 weeks Continue to FU with the human resources training manager for the neuropathy. Continue with the kinesiology [...] - ICD9: 356.9, ICD10: G57.93 8. Other rn long term care (current) drug therapy - ICD9: V58.69, ICD10: Z79.899 - TOXASSURE FLEX 23, URINE Freeman Sarabia PA-C documented in this encounterBrown Memorial Hospital11-28-2023 Miscellaneous Notes* Telephone Encounter - [...] me to not sweat). documented in this encounterBrown Memorial Hospital11-20-2023 Miscellaneous Notes* Telephone Encounter - [...] 2023. Nydia Mike RN documented in this encounterBrown Memorial Hospital10-31-2023 Hospital Discharge instructions* Discharge Instr [...] normally would, but you do need a line haul driver. Additional Instructions: documented in this encounterBrown Memorial Hospital10-31-2023 Surgical operation note* Operative Report - Min Velazco MD - 08/29/2023 2:52 PM EDT Summary: Bilateral subacromial bursae injection Subacromial Bursa Injection PROCEDURE: Bilateral subacromial bursa injection CPT code: 00536-51 PREPROCEDURE DIAGNOSIS: subacromial bursitis POSTPROCEDURE DIAGNOSIS: same [...] 2023 TIME: 2:52 PM documented in this encounterBrown Memorial Hospital10-27-2023 History of Present illness Narrative* [...] 25, 2023 10:14 AM documented in this encounterBrown Memorial Hospital10-27-2023 Instructions* Patient Instructions* Freeman Sarabia [...] 1 visit. Continue to FU with the human resources training manager for the neuropathy. Continue with the kinesiology [...] seen at this time. documented in this encounterBrown Memorial Hospital10-27-2023 History of Present illness Narrative* Freeman Sarabia PA-C - 08/25/2023 9:02 AM EDT This note was created using Waterfall. Subjective Sheila Crowe is a 42 year [...] EXPOSED ROOT (ELEVATION AND/OR FORCEPS REMOVAL) 1995 [place] TONSILLECTOMY PRIMARY/SECONDARY <AGE 12 1994 Tonsillectomy [...] 1 visit. Continue to FU with the human resources training manager for the neuropathy. Continue with the kinesiology [...] G57.93 Freeman Sarabia PA-C documented in this encounterBrown Memorial Hospital10-23-2023 Miscellaneous Notes* Telephone Encounter - Freeman Sarabia PA-C - 08/21/2023 11:02 AM EDT The following approved medication requests have been transmitted electronically. Requested Prescriptions Pending Prescriptions Disp Refills buprenorphine (BELBUCA) 150 mcg buccal film 60 Film 0 Sig: Place 1 Film between cheek and gum every 12 hours for 30 days. Freeman Saraiba PA-C * Telephone Encounter - Kristal Luo RN - 08/21/2023 10:50 AM EDT Patient phones requesting refills as follows: Requested Prescriptions Pending Prescriptions Disp Refills buprenorphine (BELBUCA) 150 mcg buccal film 60 Film 0 Sig: Place 1 Film between cheek and gum every 12 hours for 30 days. Please review and advise. Kristal Luo RN documented in this encounterBrown Memorial Hospital09-21-2023 Miscellaneous Notes* Telephone Encounter - [...] days. Nydia Mike RN documented in this encounterBrown Memorial Hospital09-14-2023 Instructions* Patient Instructions* Freeman Sarabia [...] 6 weeks Continue to FU with the human resources training manager and get the EMG done in June. [...] seen at this time. documented in this encounterBrown Memorial Hospital09-14-2023 History of Present illness Narrative* Freeman Sarabia PA-C - 07/13/2023 1:26 PM EDT This note was created using Antennariter. Subjective Sheila Crowe is a 42 year [...] EXPOSED ROOT (ELEVATION AND/OR FORCEPS REMOVAL) 1995 [place] TONSILLECTOMY PRIMARY/SECONDARY <AGE 12 1994 Tonsillectomy [...] 6 weeks Continue to FU with the human resources training manager and get the EMG done in June. [...] M75.52 Freeman Sarabia PA-C documented in this encounterBrown Memorial Hospital08-28-2023 Miscellaneous Notes* Telephone Encounter - [...] Rx set up to send electronically in [employer]. Nydia Mike RN June 26, 2023 2:01 PM Patient phones requesting refills as follows: Requested Prescriptions Pending Prescriptions Disp Refills pregabalin (LYRICA) 50 mg capsule 60 capsule 3 Sig: Take 1 capsule by mouth twice daily for 120 days. Nydia Mike RN documented in this encounterBrown Memorial Hospital08-22-2023 Miscellaneous Notes* Telephone Encounter - [...] advise. Kristal Luo RN documented in this encounterBrown Memorial Hospital08-03-2023 Hospital Discharge instructions* Discharge Instr [...] normally would, but you do need a line haul driver. Additional Instructions: documented in this encounterBrown Memorial Hospital08-03-2023 Surgical operation note* Operative Report - Min Velazco MD - 06/01/2023 4:17 PM EDT Summary: Left subacromial bursa injection Subacromial Bursa Injection PROCEDURE: Left subacromial bursa injection CPT code: 46798 PREPROCEDURE DIAGNOSIS: subacromial bursitis POSTPROCEDURE DIAGNOSIS: same [...] 2023 TIME: 4:17 PM documented in this encounterBrown Memorial Hospital08-02-2023 Miscellaneous Notes* Telephone Encounter - [...] Injection - Left shoulder - subacromial A line haul driver is required: No Oral Sedation is requested : No If you are receiving oral sedation, you may eat a light meal. Clothing to wear: Back injections - elastic waist/jogging pants Neck injections - wide neck or button down shirt; please do not wear neck jewelry Plan to take it easy the rest of the day following your procedure. You may resume normal oeokihfzoe31 hours following your procedure or as otherwise instructed. Special Instructions - NONE documented in this encounterBrown Memorial Hospital07-28-2023 Instructions* Patient Instructions* Freeman Sarabia [...] weeks Continue to FU with the new human resources training manager and get the EMG done in June. [...] seen at this time. documented in this encounterBrown Memorial Hospital07-28-2023 History of Present illness Narrative* Freeman Sarabia PA-C - 05/26/2023 1:24 PM EDT This note was created using Antennariter. Subjective Sheila Crowe is a 42 year [...] or ER visits. She saw the new human resources training manager and he has ordered an EMG that [...] EXPOSED ROOT (ELEVATION AND/OR FORCEPS REMOVAL) 1995 [place] TONSILLECTOMY PRIMARY/SECONDARY <AGE 12 1994 Tonsillectomy [...] weeks Continue to FU with the new human resources training manager and get the EMG done in June. [...] M75.52 Freeman Sarabia PA-C documented in this encounterBrown Memorial Hospital05-05-2023 Instructions* Patient Instructions* Freeman Sarabia PA-C - 03/03/2023 9:51 AM EDT The O[facility] report has been reviewed and is consistent with the patients medical history and medication intake. The patient underwent a random UDS at today's office visit. Continue with belbuca, gabapentin, cyclobenzaprine, meloxicam, and diclofenac gel We will send an order to [facility] for a new TENS unit to use [...] seen at this time. documented in this encounterBrown Memorial Hospital05-05-2023 History of Present illness Narrative* Freeman Sarabia PA-C - 03/03/2023 9:26 AM EDT This note was created using Antennariter. Subjective Sheila Crowe is a 42 year [...] EXPOSED ROOT (ELEVATION AND/OR FORCEPS REMOVAL) 1995 [place] TONSILLECTOMY PRIMARY/SECONDARY <AGE 12 1994 Tonsillectomy [...] gel We will send an order to [facility] for a new TENS unit to use [...] ICD9: 726.19, ICD10: M75.51, M75.52 6. Other rn long term care (current) drug therapy - ICD9: V58.69, ICD10: Z79.899 - TOXASSURE FLEX 23, URINE Freeman Sarabia PA-C documented in this encounterBrown Memorial Hospital04-10-2023 Miscellaneous Notes* Telephone Encounter - [...] needed. Nydia Mike RN documented in this encounterBrown Memorial Hospital04-06-2023 Hospital Discharge instructions* Discharge Instr [...] normally would, but you do need a line haul driver. Additional Instructions: documented in this encounterBrown Memorial Hospital04-06-2023 Surgical operation note* Operative Report - Min Velazco MD - 02/02/2023 10:28 AM EDT Summary: Left subacromial bursa injection Subacromial Bursa Injection PROCEDURE: Left subacromial bursa injection CPT code: 96777 PREPROCEDURE DIAGNOSIS: subacromial bursitis POSTPROCEDURE DIAGNOSIS: same [...] 2023 TIME: 10:29 AM documented in this encounterBrown Memorial [facility] Inst[facility]* Patient Instructions* Freeman Sarabia PA-C - 01/20/2023 9:49 AM EDT The OARRS report has been reviewed and is consistent with the patients medical history and medication intake. Continue with belbuca, gabapentin, cyclobenzaprine, meloxicam, and diclofenac gel Call your TENS company and find out if they are able to fix/replace your unit. If not, we will senda new order to [facility]. Continue doing your yoga and strengthening exercises, [...] subacromial bursa injection x 1 visit A line haul driver is required: No Oral Sedation is requested : No If you are receiving oral sedation, you may eat a light meal. Clothing to wear: Back injections - elastic waist/jogging pants Neck injections - wide neck or button down shirt; please do not wear neck jewelry Plan to take it easy the rest of the day following your procedure. You may resume normal [id number] hours following your procedure or as otherwise instructed. Special Instructions - NONE documented in this encounterBrown [facility]03-[facility] History of Present illness Narrative* Freeman Sarabia PA-C - 01/20/2023 9:22 AM EDT This note was created using Antennariter. Subjective Sheila Crowe is a 42 year [...] EXPOSED ROOT (ELEVATION AND/OR FORCEPS REMOVAL) 1995 [place] teeth TONSILLECTOMY PRIMARY/SECONDARY <AGE 11 1994 Tonsillectomy [...] not, we will senda new order to [facility]. Continue doing your yoga and strengthening exercises, [...] (05/2020) Freeman Sarabia PA-C documented in this encounterBrown [facility] Hospital02-28-2023 Miscellaneous Notes* Telephone Encounter - [...] advise. Kristal Luo RN documented in this encounterBrown Memorial Hospital02-09-2023 Miscellaneous Notes* Letter - Mammography Coordinator - 12/08/2022 9:23 PM EST December 09, 2022 PID: [id number] Sheila Crowe [address] [place] [address] Dear Ms. Crowe, We are pleased to [...] report will be [facility] as part of your permanent medical record and are available for your continuing care. Thank you for allowing us to help in meeting your health care needs. Sincerely, Dr. Gama Interpreting Radiologist [facility] [place] (Normal over 40) documented in this encounterBrown Memorial Hospital02-09-2023 History of Present illness Narrative* [...] 08, 2022 9:56 AM documented in this encounterBrown Memorial Hospital02-01-2023 Miscellaneous Notes* Telephone Encounter - [...] advise. Kristal Luo, RN documented in this encounterBrown Memorial Hospital02-01-2023 Instructions* Patient Instructions* Min Velazco MD - 11/30/2022 1:50 PM EST Patient will be switched back to cyclobenzaprine from metaxalone. She will continue with Belbuca, gabapentin, meloxicam, and diclofenac gel. She will continue using her TENS unit. She will continue with yoga and stretching exercises. Follow-up in office in 6 weeks time. documented in this encounterBrown Memorial Hospital02-01-2023 History of Present illness Narrative* Min Velazco MD - 11/30/2022 1:30 PM EST This note was created using Waterfall. Subjective Sheila Crowe is a 42 year [...] errors. Min Velazco MD documented in this encounterBrown Memorial Hospital01-24-2023 Miscellaneous Notes* Telephone Encounter - [...] advise. Kristal Luo RN documented in this encounterBrown [facility] Hospital12-15-2022 Instructions* Patient Instructions* Freeman Sarabia [...] seen at this time. documented in this encounterBrown Memorial Hospital12-15-2022 History of Present illness Narrative* Freeman Sarabia PA-C - 10/13/2022 1:26 PM EST This note was created using PhishMeter. Subjective Sheila Crowe is a 42 year [...] EXPOSED ROOT (ELEVATION AND/OR FORCEPS REMOVAL) 1995 [place] teeth TONSILLECTOMY PRIMARY/SECONDARY <AGE 11 1994 Tonsillectomy [...] M75.52 Freeman Sarabia PA-C documented in this encounterBrown Memorial Hospital11-23-2022 Miscellaneous Notes* Telephone Encounter - [...] significant at this level. documented in this encounterBrown Memorial Hospital11-18-2022 Miscellaneous Notes* Telephone Encounter - [...] advise. Kristal Luo RN documented in this encounterBrown [facility] Hospital11-17-2022 Hospital Discharge instructions* Discharge Instr [...] normally would, but you do need a line haul driver. Additional Instructions: documented in this encounterBrown Memorial Hospital11-17-2022 Surgical operation note* Operative Report - Min Velazco MD - 09/15/2022 10:54 AM EST Summary: Bilateral subacromial bursae injection Subacromial Bursa Injection PROCEDURE: Bilateral subacromial bursae injection CPT code: 55199-00 PREPROCEDURE DIAGNOSIS: subacromial bursitis POSTPROCEDURE DIAGNOSIS: same [...] 2022 TIME: 10:55 AM documented in this encounterBrown Memorial Hospital11-03-2022 Instructions* Patient Instructions* Freeman Sarabia [...] bursa cortisone injections x 1 visit. A line haul driver is required: No Oral Sedation is requested : No If you are receiving oral sedation, you may eat a light meal. Clothing to wear: Back injections - elastic waist/jogging pants Neck injections - wide neck or button down shirt; please do not wear neck jewelry Plan to take it easy the rest of the day following your procedure. You may resume normal [id number] hours following your procedure or as otherwise instructed. Special Instructions - NONE documented in this encounterBrown Memorial Hospital11-03-2022 History of Present illness Narrative* Freeman Sarabia PA-C - 09/01/2022 2:00 PM EDT This note was created using Antennariter. Subjective Sheila Crowe is a 41 year [...] they had mentioned referring her to a human resources designate in the past. The pain has been [...] EXPOSED ROOT (ELEVATION AND/OR FORCEPS REMOVAL) 1995 [place] teeth TONSILLECTOMY PRIMARY/SECONDARY <AGE 11 1994 Tonsillectomy [...] - ICD9: 720.2, ICD10: M46.1 5. Other skilled nursing (current) drug therapy - ICD9: V58.69, ICD10: Z79.899 - DRUG SCR TOXASURE 6. Subacromial bursitis of both shoulders - ICD9: 726.19, ICD10: M75.51, M75.52 Freeman Sarabia PA-C documented in this encounterBrown Memorial Hospital10-20-2022 Miscellaneous Notes* Telephone Encounter - [...] advise. Kristal Luo RN documented in this encounterBrown Memorial Hospital09-21-2022 Instructions* Patient Instructions* Freeman Sarabia [...] seen at this time. documented in this encounterBrown Memorial Hospital09-21-2022 History of Present illness Narrative* Freeman Sarabia PA-C - 07/20/2022 1:45 PM EDT This note was created using Antennariter. Subjective Sheila Crowe is a 41 year [...] EXPOSED ROOT (ELEVATION AND/OR FORCEPS REMOVAL) 1995 [place] teeth TONSILLECTOMY PRIMARY/SECONDARY <AGE 11 1994 Tonsillectomy [...] M46.1 Freeman Sarabia PA-C documented in this encounterBrown Memorial Hospital08-22-2022 Miscellaneous Notes* Telephone Encounter - [...] Sarabia PA-C * Telephone Encounter - Kristal uLo RN - 06/20/2022 2:50 PM EDT Patient phones requesting refills as follows: Requested Prescriptions Pending Prescriptions Disp Refills buprenorphine (BELBUCA) 150 mcg buccal film 60 Film 0 Sig: Place 1 Film between cheek and gum q 12 HR for 30 days. Do not start before June 23, 2022. Kristal Luo RN documented in this encounterBrown Memorial Hospital08-11-2022 Instructions* Patient Instructions* Freeman Sarabia [...] seen at this time. documented in this encounterBrown Memorial Hospital08-11-2022 History of Present illness Narrative* Freeman Sarabia PA-C - 06/09/2022 1:45 PM EDT This note was created using Antennariter. Subjective Sheila Crowe is a 41 year [...] EXPOSED ROOT (ELEVATION AND/OR FORCEPS REMOVAL) 1995 [place] TONSILLECTOMY PRIMARY/SECONDARY <AGE 11 1994 Tonsillectomy [...] (HCC) - ICD9: 720.2, ICD10: M46.1 Freeman Saarbia PA-C documented in this encounterBrown Memorial Hospital07-21-2022 Miscellaneous Notes* Telephone Encounter - [...] advise. Kristal Luo RN documented in this encounterBrown Memorial Hospital07-11-2022 Miscellaneous Notes* Telephone Encounter - Kristal Luo RN - 05/09/2022 1:59 PM EDT Patient phones requesting refills as follows: Pending Prescriptions Disp Refills GABAPENTIN 600 MG TABLET 120 tablet 3 Sig: Take 1 tablet by mouth four times daily for 30 days. PEDRO: No Please review and advise. Kristal Luo RN documented in this encounterBrown Memorial Hospital05-09-2022 History of Present illness Narrative* [...] EXPOSED ROOT (ELEVATION AND/OR FORCEPS REMOVAL) 1995 [place] teeth TONSILLECTOMY PRIMARY/SECONDARY <AGE 11 1994 Tonsillectomy [...] six months and prn. documented in this encounterBrown Memorial Hospital04-04-2022 Miscellaneous Notes* Telephone Encounter - [...] advise, Gina Schultz RN documented in this encounterBrown Memorial Hospital03-12-2022 Hospital Discharge instructions Patient Education [...] wound area that doesn t go away [id number] [employer]. [address] [place] [address]. All rights reserved. This information is not intended as a substitute for professional medical care. Always follow yourhealthcare professional's instructions. Follow Up Care 01/08/2022 19:56:41 With:TORRES YAO MD, [facility], [facility] Address: [address] [address]- When:2-4 days [facility] 10-15-2021 Hospital Discharge instructions Patient Education [...] there) Anxiety, depression Several days without sleeping [phone] [employer]. [address] [place] [address], [place] [address]. All rights reserved. This information is not [...] large amounts of blood in stool Seizure [phone] [employer]. [address] [place] [address], [place] [address]. All rights reserved. This information is not intended as a substitute for professional medical care. Always follow yourhealthcare professional's instructions. Follow Up Care 08/13/2021 14:28:58 With:TORRES YAO MD, [facility], [facility] Address: [facility] [address] [place] [address]- When:2-4 days [facility] 05-20-2020 History of Past illness Narrative* [...] of this encounter (statuses as of 05/26/2023) [facility] Narrative* [...] of this encounter (statuses as of 05/31/2023) [facility] Narrative* [...] of this encounter (statuses as of 06/02/2023) [facility] Narrative* [...] of this encounter (statuses as of 06/20/2023) [facility] Narrative* [...] of this encounter (statuses as of 06/27/2023) [facility] Narrative* [...] of this encounter (statuses as of 07/13/2023) [facility] Narrative* [...] of this encounter (statuses as of 07/21/2023) [address]20-2020 History of Past illness Narrative* Problem [...] of this encounter (statuses as of 08/21/2023) [address]20[address]2020 History of Past illness Narrative* Problem [...] of this encounter (statuses as of 08/25/2023) [address]20[address]2020 History of Past illness Narrative* Problem [...] of this encounter (statuses as of 08/26/2023) [facility] Narrative* [...] of this encounter (statuses as of 08/30/2023) [facility] Narrative* [...] of this encounter (statuses as of 09/03/2023) [facility] Narrative* [...] of this encounter (statuses as of 09/19/2023) [facility] Narrative* [...] of this encounter (statuses as of 09/27/2023) [address]2020 History of Past illness Narrative* Problem [...] of this encounter (statuses as of 09/28/2023) [address]2020 History of Past illness Narrative* Problem [...] of this encounter (statuses as of 10/10/2023) [address]2020 History of Past illness Narrative* Problem [...] of this encounter (statuses as of 10/14/2023) [facility] Narrative* [...] of this encounter (statuses as of 12/12/2023) [facility] Narrative* [...] of this encounter (statuses as of 12/14/2023) [place] [address]20[address]2020 History of Past illness Narrative* Problem Noted [...] of this encounter (statuses as of 12/15/2023) [address]2020 History of Past illness Narrative* Problem [...] of this encounter (statuses as of 12/22/2023) [address]20[address]2020 History of Past illness Narrative* Problem [...] of this encounter (statuses as of 01/05/2024) [address]20[address]2020 History of Past illness Narrative* Problem [...] of this encounter (statuses as of 01/18/2024) [address]20[address]2020 History of Past illness Narrative* Problem [...] of this encounter (statuses as of 01/30/2024) [address]20[address]2020 History of Past illness Narrative* Problem [...] of this encounter (statuses as of 02/08/2024) [facility] Narrative* [...] of this encounter (statuses as of 02/09/2024) [facility] Narrative* Problem Noted Date Resolved Date Type II or unspecified type diabetes mellitus without mention of complication, not stated as uncontrolled 02/03/2014 Elevated blood pressure read ing without diagnosis of hypertension 11/29/2006 08/05/2016 Other acne 11/29/2006 09/06/2021 documented as of this encounter (statuses as of 01/20/2022) [facility] Narrative* Problem Noted Date Resolved Date Type II or unspecified type diabetes mellitus without mention of complication, not stated as uncontrolled 02/03/2014 Elevated blood pressure read ing without diagnosis of hypertension 11/29/2006 08/05/2016 Other acne 11/29/2006 09/06/2021 documented as of this encounter (statuses as of 01/31/2022) [facility] Narrative* Problem Noted Date Resolved Date Type II or unspecified type diabetes mellitus without mention of complication, not stated as uncontrolled 02/03/2014 Morbid obesity 01/01/2009 03/07/2022 Elevated blood pressure read ing without diagnosis of hypertension 11/29/2006 08/05/2016 Other acne 11/29/2006 09/06/2021 documented as of this encounter (statuses as of 03/07/2022) [address]07-2014 History of Past illness Narrative* Problem Noted Date Resolved Date Type II or unspecified type diabetes mellitus without mention of complication, not stated as uncontrolled 02/03/2014 Morbid obesity 01/01/2009 03/07/2022 Elevated blood pressure read ing without diagnosis of hypertension 11/29/2006 08/05/2016 Other acne 11/29/2006 09/06/2021 documented as of this encounter (statuses as of 03/29/2022) [address]07-2014 History of Past illness Narrative* Problem Noted Date Resolved Date Type II or unspecified type diabetes mellitus without mention of complication, not stated as uncontrolled 02/03/2014 Morbid obesity 01/01/2009 03/07/2022 Elevated blood pressure read ing without diagnosis of hypertension 11/29/2006 08/05/2016 Other acne 11/29/2006 09/06/2021 documented as of this encounter (statuses as of 05/09/2022) [address]07-2014 History of Past illness Narrative* Problem Noted Date Resolved Date Type II or unspecified type diabetes mellitus without mention of complication, not stated as uncontrolled 02/03/2014 Morbid obesity 01/01/2009 03/07/2022 Elevated blood pressure read ing without diagnosis of hypertension 11/29/2006 08/05/2016 Other acne 11/29/2006 09/06/2021 documented as of this encounter (statuses as of 05/19/2022) [address]07-2014 History of Past illness Narrative* Problem Noted Date Resolved Date Type II or unspecified type diabetes mellitus without mention of complication, not stated as uncontrolled 02/03/2014 Morbid obesity 01/01/2009 03/07/2022 Elevated blood pressure read ing without diagnosis of hypertension 11/29/2006 08/05/2016 Other acne 11/29/2006 09/06/2021 documented as of this encounter (statuses as of 06/09/2022) [place] [address]07-2014 History of Past illness Narrative* Problem Noted Date Resolved Date Type II or unspecified type diabetes mellitus without mention of complication, not stated as uncontrolled 02/03/2014 Morbid obesity 01/01/2009 03/07/2022 Elevated blood pressure read ing without diagnosis of hypertension 11/29/2006 08/05/2016 Other acne 11/29/2006 09/06/2021 documented as of this encounter (statuses as of 06/20/2022) [address]07-2014 History of Past illness Narrative* Problem Noted Date Resolved Date Type II or unspecified type diabetes mellitus without mention of complication, not stated as uncontrolled 02/03/2014 Morbid obesity 01/01/2009 03/07/2022 Elevated blood pressure read ing without diagnosis of hypertension 11/29/2006 08/05/2016 Other acne 11/29/2006 09/06/2021 documented as of this encounter (statuses as of 07/20/2022) [address]07-2014 History of Past illness Narrative* Problem Noted Date Resolved Date Type II or unspecified type diabetes mellitus without mention of complication, not stated as uncontrolled 02/03/2014 Morbid obesity 01/01/2009 03/07/2022 Elevated blood pressure read ing without diagnosis of hypertension 11/29/2006 08/05/2016 Other acne 11/29/2006 09/06/2021 documented as of this encounter (statuses as of 08/18/2022) [address]07-2014 History of Past illness Narrative* Problem Noted Date Resolved Date Type II or unspecified type diabetes mellitus without mention of complication, not stated as uncontrolled 02/03/2014 Morbid obesity 01/01/2009 03/07/2022 Elevated blood pressure read ing without diagnosis of hypertension 11/29/2006 08/05/2016 Other acne 11/29/2006 09/06/2021 documented as of this encounter (statuses as of 09/01/2022) [address]07-2014 History of Past illness Narrative* Problem Noted Date Resolved Date Type II or unspecified type diabetes mellitus without mention of complication, not stated as uncontrolled 02/03/2014 Morbid obesity 01/01/2009 03/07/2022 Elevated blood pressure read ing without diagnosis of hypertension 11/29/2006 08/05/2016 Other acne 11/29/2006 09/06/2021 documented as of this encounter (statuses as of 09/16/2022) [address]07-2014 History of Past illness Narrative* Problem Noted Date Resolved Date Type II or unspecified type diabetes mellitus without mention of complication, not stated as uncontrolled 02/03/2014 Morbid obesity 01/01/2009 03/07/2022 Elevated blood pressure read ing without diagnosis of hypertension 11/29/2006 08/05/2016 Other acne 11/29/2006 09/06/2021 documented as of this encounter (statuses as of 09/16/2022) [address]07-2014 History of Past illness Narrative* Problem Noted Date Resolved Date Type II or unspecified type diabetes mellitus without mention of complication, not stated as uncontrolled 02/03/2014 Morbid obesity 01/01/2009 03/07/2022 Elevated blood pressure read ing without diagnosis of hypertension 11/29/2006 08/05/2016 Other acne 11/29/2006 09/06/2021 documented as of this encounter (statuses as of 09/21/2022) [facility] Narrative* Problem Noted Date Resolved Date Type II or unspecified type diabetes mellitus without mention of complication, not stated as uncontrolled 02/03/2014 Morbid obesity 01/01/2009 03/07/2022 Elevated blood pressure read ing without diagnosis of hypertension 11/29/2006 08/05/2016 Other acne 11/29/2006 09/06/2021 documented as of this encounter (statuses as of 10/13/2022) [facility] Narrative* Problem Noted Date Resolved Date Type II or unspecified type diabetes mellitus without mention of complication, not stated as uncontrolled 02/03/2014 Morbid obesity 01/01/2009 03/07/2022 Elevated blood pressure read ing without diagnosis of hypertension 11/29/2006 08/05/2016 Other acne 11/29/2006 09/06/2021 documented as of this encounter (statuses as of 11/22/2022) [facility] Narrative* Problem Noted Date Resolved Date Type II or unspecified type diabetes mellitus without mention of complication, not stated as uncontrolled 02/03/2014 Morbid obesity 01/01/2009 03/07/2022 Elevated blood pressure read ing without diagnosis of hypertension 11/29/2006 08/05/2016 Other acne 11/29/2006 09/06/2021 documented as of this encounter (statuses as of 11/30/2022) [address]07-2014 History of Past illness Narrative* Problem Noted Date Resolved Date Type II or unspecified type diabetes mellitus without mention of complication, not stated as uncontrolled 02/03/2014 Morbid obesity 01/01/2009 03/07/2022 Elevated blood pressure read ing without diagnosis of hypertension 11/29/2006 08/05/2016 Other acne 11/29/2006 09/06/2021 documented as of this encounter (statuses as of 12/01/2022) [address]07-2014 History of Past illness Narrative* Problem Noted Date Resolved Date Type II or unspecified type diabetes mellitus without mention of complication, not stated as uncontrolled 02/03/2014 Morbid obesity 01/01/2009 03/07/2022 Elevated blood pressure read ing without diagnosis of hypertension 11/29/2006 08/05/2016 Other acne 11/29/2006 09/06/2021 documented as of this encounter (statuses as of 12/10/2022) [address]07-2014 History of Past illness Narrative* Problem Noted Date Resolved Date Type II or unspecified type diabetes mellitus without mention of complication, not stated as uncontrolled 02/03/2014 Morbid obesity 01/01/2009 03/07/2022 Elevated blood pressure read ing without diagnosis of hypertension 11/29/2006 08/05/2016 Other acne 11/29/2006 09/06/2021 documented as of this encounter (statuses as of 12/27/2022) [address]07-2014 History of Past illness Narrative* Problem Noted Date Resolved Date Type II or unspecified type diabetes mellitus without mention of complication, not stated as uncontrolled 02/03/2014 Morbid obesity 01/01/2009 03/07/2022 Elevated blood pressure read ing without diagnosis of hypertension 11/29/2006 08/05/2016 Other acne 11/29/2006 09/06/2021 documented as of this encounter (statuses as of 01/20/2023) [address]07-2014 History of Past illness Narrative* Problem Noted Date Resolved Date Type II or unspecified type diabetes mellitus without mention of complication, not stated as uncontrolled 02/03/2014 Morbid obesity 01/01/2009 03/07/2022 Elevated blood pressure read ing without diagnosis of hypertension 11/29/2006 08/05/2016 Other acne 11/29/2006 09/06/2021 documented as of this encounter (statuses as of 02/03/2023) [facility] Narrative* Problem Noted Date Resolved Date Type II or unspecified type diabetes mellitus without mention of complication, not stated as uncontrolled 02/03/2014 Morbid obesity 01/01/2009 03/07/2022 Elevated blood pressure read ing without diagnosis of hypertension 11/29/2006 08/05/2016 Other acne 11/29/2006 09/06/2021 documented as of this encounter (statuses as of 02/07/2023) [facility] Narrative* Problem Noted Date Resolved Date Type II or unspecified type diabetes mellitus without mention of complication, not stated as uncontrolled 02/03/2014 Morbid obesity 01/01/2009 03/07/2022 Elevated blood pressure read ing without diagnosis of hypertension 11/29/2006 08/05/2016 Other acne 11/29/2006 09/06/2021 documented as of this encounter (statuses as of 03/03/2023) [facility] Author Ayaz Pollard [facility] Note Date/Time June 11, 2025 11 :01[facility] Medical Records Department [address] [place] [address] Anesthesia Postop Eval I 06/11/25 1033 MR#: [id number] Acct: [id number] Name: SHEILA CROWE Rep #:[id number] 17 : 1980 44 From: Ayaz MONCADA PCP: Dr. Torres Yao MD Status:REG S DC Y Race: C Location: [place] [address] Anesthesia: Postop Eval I Current Vital Signs [...] CRNA Cosigner Signature: Date CC: ~ Signed [facility] Work Phone: Discharge summary Author Mahad Saleh [facility] Campus Note Date/Time June 11, 2025 9: 24am [facility] Medical Records Department [address] [place] [address] Instructions for Home/Discharge Instructions 06/11/25 0922 MR#: [id number] Acct: [id number] Name: SHEILA CROWE Rep #:[id number] : [...] Instructions Patient Instructions: Shoulder Arthroscopy Print Language: Tajik Discharge Orders/Prescriptions Prescriptions: New oxycodone-acetaminophen [Endocet] 5-325 [...] [Med Staff - Active Staff] - Torres aYo MD [Primary Care Provider] - Disposition Disposition (needs filled in before D/C Order can be placed): Home, Self Care 06/11/25 0924<Electronically signed by Mahad Saleh MD>Mahad Saleh MD CC: Dr. Torres Yao MD ~ Signed [facility] Work Phone: Evaluation + Plan note Future Appointments Appointment Date:05/30/2022 01:00:00 PM Scheduled Provider:ADIEL ALEJANDRE Location:[facility] Appointment Type:[facility] Evaluation note* Diagnosis Type 2 diabetes mellitus without complication, with long-term current use of insulin (HCC) documented in this encounter [facility] note* Diagnosis Type 2 diabetes mellitus without complication, with long-term current use of insulin (HCC)- Primary Bipolar I disorder (HCC) Bipolar I disorder, most recent episode (or current) unspecified Essential hypertension, benign Fibromyalgia Mylagia and myositis, unspecified Acne, unspecified acne type documented in this encounter [facility] note* Diagnosis Primary osteoarthritis of both knees- Primary Primary localized osteoarthrosis, lower leg documented in this encounter [facility] note* Diagnosis Primary osteoarthritis of both knees Primary localized osteoarthrosis, lower leg documented [facility] encounter [facility]* Diagnosis Fibromyalgia- Primary Mylagia and myositis, unspecified Primary osteoarthritis of both knees Primary localized osteoarthrosis, lower leg Generalized anxiety disorder Sacroiliitis (HCC) Sacroiliitis, not elsewhere classified documented in this encounter [facility] note* Diagnosis Primary osteoarthritis of both knees Primary localized osteoarthrosis, lower leg documented in this encounter [facility] note* Diagnosis Primary osteoarthritis of both knees- Primary Primary localized osteoarthrosis, lower leg Fibromyalgia Mylagia and myositis, unspecified Generalized anxiety disorder Sacroiliitis (HCC) Sacroiliitis, not elsewhere classified documented in this encounter [facility] note* Diagnosis Primary osteoarthritis of both knees Primary localized osteoarthrosis, lower leg [facility]* Diagnosis Fibromyalgia- Primary Mylagia and myositis, unspecified Primary osteoarthritis of both knees Primary localized osteoarthrosis, lower leg Generalized anxiety disorder Sacroiliitis (HCC) Sacroiliitis, not elsewhere classified Other rn long term care (current) drug therapy Subacromial bursitis of both shoulders Subacromial bursitis of both shoulders documented in this encounter [facility] note* Diagnosis Primary osteoarthritis of both knees Primary localized osteoarthrosis, lower leg documented in this encounter [facility]* Diagnosis Hypokalemia- Primary Hypopotassemia documented in this encounter [facility]* Diagnosis Fibromyalgia- Primary Mylagia and myositis, unspecified Primary osteoarthritis of both knees Primary localized osteoarthrosis, lower leg Sacroiliitis (HCC) Sacroiliitis, not elsewhere classified Generalized anxiety disorder Subacromial bursitis of both shoulders documented [facility] this encounter [facility]* Diagnosis Primary osteoarthritis of both knees Primary localized osteoarthrosis, lower leg [facility]* Diagnosis Fibromyalgia- Primary Mylagia and myositis, unspecified Primary osteoarthritis of both knees Primary localized osteoarthrosis, lower leg Sacroiliitis (HCC) Sacroiliitis, not elsewhere classified Generalized anxiety disorder Subacromial bursitis of both shoulders documented [facility] this encounter [facility]* Diagnosis Fibromyalgia- Primary Mylagia and myositis, unspecified Primary osteoarthritis of both knees Primary localized osteoarthrosis, lower leg Sacroiliitis (HCC) Sacroiliitis, not elsewhere classified Generalized anxiety disorder Subacromial bursitis of both shoulders Subacromial bursitis of both shoulders [facility] Diagnosis Primary osteoarthritis of both knees- Primary Primary localized osteoarthrosis, lower leg Fibromyalgia Mylagia and myositis, unspecified Sacroiliitis (HCC) Sacroiliitis, not elsewhere classified Generalized anxiety disorder Subacromial bursitis of both shoulders Other rn long term care (current) drug therapy [facility] Diagnosis Fibromyalgia- Primary Mylagia and myositis, unspecified Primary osteoarthritis of both knees Primary localized osteoarthrosis, lower leg Sacroiliitis (HCC) Sacroiliitis, not elsewhere classified Generalized anxiety disorder Subacromial bursitis of both shoulders [facility] Diagnosis Bursitis of left shoulder- Primary Disorders of bursae and tendons in shoulder region, unspecified Bursitis of left shoulder Disorders of bursae and tendons in shoulder region, unspecified [facility]* Diagnosis Fibromyalgia- Primary Mylagia and myositis, unspecified [facility]* Diagnosis Fibromyalgia- Primary Mylagia and myositis, unspecified Primary osteoarthritis of both knees Primary localized osteoarthrosis, lower leg Sacroiliitis (HCC) Sacroiliitis, not elsewhere classified Generalized anxiety disorder Subacromial bursitis of both shoulders [facility]* Diagnosis Fibromyalgia- Primary Mylagia and myositis, unspecified [facility]* Diagnosis Primary osteoarthritis of both knees Primary localized osteoarthrosis, lower leg [facility] Diagnosis Fibromyalgia- Primary Mylagia and myositis, unspecified Primary osteoarthritis of both knees Primary localized osteoarthrosis, lower leg Sacroiliitis (HCC) Sacroiliitis, not elsewhere classified Generalized anxiety disorder Subacromial bursitis of both shoulders Chronic pain of both shoulders Pain in joint, shoulder region Neuropathy involving both lower extremities Subacromial bursitis of both shoulders [facility]* Diagnosis Chronic pain of both shoulders Pain in joint, shoulder region Subacromial bursitis of both shoulders documented in this encounter [facility] note* Diagnosis Screening breast examination Breast screening, unspecified documented in this encounter [facility] note* Diagnosis Chronic pain syndrome- Primary documented in this encounter [facility] note* Diagnosis Fibromyalgia- Primary Mylagia and myositis, unspecified Sacroiliitis (HCC) Sacroiliitis, not elsewhere classified Primary osteoarthritis of both knees Primary localized osteoarthrosis, lower leg Subacromial bursitis of both shoulders Generalized anxiety disorder Chronic pain of both shoulders Pain in joint, shoulder region Neuropathy involving both lower extremities Other rn long term care (current) drug therapy documented in this encounter [facility] note* Diagnosis Fibromyalgia Mylagia and myositis, unspecified [facility]* Diagnosis Fibromyalgia- Primary Mylagia and myositis, [...] Other screening mammogram [facility]* Diagnosis Encounter for screening mammogram for malignant neoplasm of breast Other screening mammogram documented in this encounter [facility] note* Diagnosis Primary osteoarthritis of both knees Primary localized osteoarthrosis, lower leg documented in this encounter [facility] note* Diagnosis Fibromyalgia- Primary Mylagia and myositis, unspecified Primary osteoarthritis of both knees Primary localized osteoarthrosis, lower leg Sacroiliitis (HCC) Sacroiliitis, not elsewhere classified Subacromial bursitis of both shoulders Generalized anxiety disorder Neuropathy involving both lower extremities Subacromial bursitis of both shoulders documented in this encounter [facility] note* Diagnosis Rectal bleeding- Primary Hemorrhage of rectum and anus Chronic constipation Unspecified constipation Abdominal discomfort Abdominal pain, unspecified site documented in this encounter [facility] note* Diagnosis Chronic pain syndrome- Primary [...] most recent episode (or current) unspecified Other skilled nursing (current) drug therapy History of suicide attempt [...] osteoarthrosis, lower leg [facility] Diagnosis Acute right-sided low back pain without sciatica- Primary Acute right-sided low back pain without sciatica [facility]* Diagnosis Fibromyalgia Mylagia and myositis, [...] disorder of coccyx [facility] Diagnosis Acute right-sided low back pain without sciatica [facility] Diagnosis Acute midline low back pain without sciatica- Primary [facility]* Diagnosis Rectal bleeding Hemorrhage of rectum and anus Chronic constipation Unspecified constipation [facility]* Diagnosis Fibromyalgia Mylagia and myositis, unspecified [facility]* Diagnosis Acute midline low back pain without sciatica- Primary [facility]* Diagnosis Subacromial bursitis of both shoulders- Primary Fibromyalgia Mylagia and myositis, unspecified Sacroiliitis (HCC) Sacroiliitis, not elsewhere classified Primary osteoarthritis of both knees Primary localized osteoarthrosis, lower leg Neuropathy involving both lower extremities Generalized anxiety disorder Subacromial bursitis of both shoulders [facility]* Diagnosis Chronic pain syndrome- Primary Screening [...] of both shoulders [facility]* Diagnosis Fibromyalgia- Primary Mylagia and myositis, unspecified Primary osteoarthritis of both knees Primary localized osteoarthrosis, lower leg Subacromial bursitis of both shoulders Sacroiliitis (HCC) Sacroiliitis, not elsewhere classified Neuropathy involving both lower extremities Generalized anxiety disorder Bilateral shoulder region arthritis [facility] Diagnosis Subacromial bursitis of both shoulders- Primary Bilateral shoulder region arthritis [facility] Diagnosis Subacromial bursitis of both shoulders- Primary Bilateral shoulder region arthritis [facility] Diagnosis Subacromial bursitis of both shoulders- Primary Bilateral shoulder region arthritis [facility]* Diagnosis Subacromial bursitis of both shoulders- Primary Bilateral shoulder region arthritis [facility]* Diagnosis Fibromyalgia Mylagia and myositis, unspecified [facility]* Diagnosis Subacromial bursitis of both shoulders- Primary Bilateral shoulder region arthritis documented [facility]* Diagnosis Subacromial bursitis of both shoulders- Primary documented [facility] this encounter [facility]* Diagnosis Subacromial bursitis of both shoulders- Primary Bilateral shoulder region arthritis documented [facility] this [facility]* Diagnosis Subacromial bursitis of both shoulders- Primary documented in this encounter [facility]* Diagnosis Encounter for screening mammogram for breast cancer documented in this encounter [facility]* Diagnosis Fibromyalgia- Primary Mylagia and myositis, unspecified Primary osteoarthritis of both knees Primary localized osteoarthrosis, lower leg Subacromial bursitis of both shoulders Bilateral shoulder region arthritis Sacroiliitis Sacroiliitis, not elsewhere classified Neuropathy involving both lower extremities Generalized anxiety disorder documented [facility]* Diagnosis Subacromial bursitis of both shoulders- Primary Bilateral shoulder region arthritis [facility]* Diagnosis Fibromyalgia- Primary Mylagia and myositis, unspecified Bipolar I disorder (HCC) Bipolar I disorder, most recent episode (or current) unspecified penitentiary (current) use of insulin (HCC) Neuropathy involving both lower extremities Essential Hypertension, Benign Essential hypertension, benign History of diabetes mellitus Personal history of other endocrine, metabolic, and immunity disorders Generalized anxiety disorder Screening for colon cancer Special screening for malignant neoplasms, colon Disorder of bone, unspecified documented in this encounter [facility] note* Diagnosis Encounter for screening mammogram for breast cancer documented [facility] this encounter [facility]* Diagnosis Onset Date Resolution Status Admit Date Left shoulder pain acute March 312024 10:59am [facility] Work Phone: Evaluation note* Diagnosis Chronic pain syndrome- Primary Fibromyalgia Mylagia and myositis, unspecified Essential Hypertension, Benign Essential hypertension, benign Urinary retention Retention of urine, unspecified Urinary retention Retention of urine, unspecified documented in this encounter [facility] note* Diagnosis Urinary retention Retention of urine, unspecified documented [facility]* Diagnosis Fibromyalgia- Primary Mylagia and myositis, unspecified Bilateral shoulder region arthritis Subacromial bursitis of both shoulders Primary osteoarthritis of both knees Primary localized osteoarthrosis, lower leg Sacroiliitis Sacroiliitis, not elsewhere classified Neuropathy involving both lower extremities Generalized anxiety disorder [facility] Diagnosis Chronic insomnia- Primary Insomnia, unspecified Generalized anxiety disorder Bipolar I disorder (HCC) Bipolar I disorder, most recent episode (or current) unspecified Panic disorder Panic disorder without agoraphobia [facility] Narrative No data available for this section [facility] Discharge instructions No data available for this section [facility] Discharge instructionsAmbulatory Orders* PT Referral Location: None Selected [facility] Work Phone: Proveydc note No data available for this section [facility] Proxgubt note Author Mahad Saleh [facility] Note Date/Time July 22, 2025 1:06pm [facility] [address] [place] [address] OFFICE VISIT Date of Service: 07/22/25 MR#: [id number] Acct: [id number] Name: SHEILA CROWE Rep #: [id number] : 1980 Provider: Dr. Delvin Salhe MD Age/Sex: 44/F Location: [facility] Status: Signed Intake Vital Signs 06/11/25 05:57 [...] stiffness and muscle atrophy. Phase 2: Gradual Confucianist of Motion (Weeks 2-6) Gradually discontinue the sling starting 2 weeks after surgery. Active Assisted Range of Motion: Gradually increasing the range of motion with assistance from the unaffected arm or a physical therapist is introduced. Phase 3: Gradual Confucianist of Strength (Weeks 6-12) Light Strengthening: Isometrics [...] Cosigner Signature: Date (if applicable) CC: ~ [facility] Work [facility] Diagnostic Procedure Only (Routine) - Closed Specialty Diagnoses / Procedures Referred By Contac Referred To Contact XR IMAGING Diagnoses Chronic pain of both shoulders Procedures XR SHOULDER ORTHO 4V AP/TRUE AP/LAT/OUTLET RIGHT RADEX SHOULDER COMPLETE MINIMUM 2 VIEWS Freeman Sarabia PA-C [address] [place] [address] [place] [address] Referral ID Status Reason Start Date Expiration Date V isits Requested Visits Authorized [id number] Closed Auto-Generate d Referral 08/25/2023 09/23/2024 1 1 * Diagnostic Procedure Only (Routine) - Closed Specialty Diagnoses / Procedures Referred By Contac Referred To Contact XR IMAGING Diagnoses Chronic pain of both shoulders Procedures XR SHOULDER ORTHO 4V AP/TRUE AP/LAT/OUTLET LEFT RADEX SHOULDER COMPLETE MINIMUM 2 VIEWS Freeman Sarabia PA-C [address] [place] [address] [place] [address] Referral ID Status Reason Start Date Expiration Date V isits Requested Visits Authorized [id number] Closed Auto-Generate d Referral 08/25/2023 09/23/2024 1 1 [facility] for referral (narrative)* Diagnostic Procedure Only (Routine) - Closed Specialty Diagnoses / Procedures Referred By Contac t Referred To Contact BR IMAGING Diagnoses Screening breast examination Procedures BRITTNO SCREENING SCREENING MAMMOGRAPHY BI 2-VIEW BREAST INC Torres Valle MD [address] [place] [address] [facility] [address] [place] [address] Referral ID Status Reason Start Date Expiration Date V isits Requested Visits Authorized [id number] Closed Auto-Generate d Referral 09/08/2022 10/08/2023 1 1 [facility] for referral (narrative)* Diagnostic Procedure Only (Routine) - Authorized Specialty Diagnoses / Procedures Referred By Contac t Referred To Contact BR IMAGING Diagnoses Encounter for screening mammogram for malignant neoplasm of breast Procedures BRITTON SCREENING SCREENING MAMMOGRAPHY BI 2-[place] [address] [place] [address] [facility] [address] [place] [address] Referral ID Status Reason Start Date Expiration Date Visits Requested Visits Authorized [id number] Authorized Auto-Generat ed Referral 3 11/11/2024 1 1 * Transition of Care (Routine) - Ref Not Required Specialty Diagnoses / Procedures Referred By Contac t Referred To Contact Neurology Diagnoses Other polyneuropathy Migraine without aura and without status migrainosus, not intractable Procedures CONSULT TO NEUROLOGY Torres Yao MD [address] [place] [address] Referral ID Status Reason Start Date Expiration Date Visits Requested Visits Authorized [id number] Ref Not Required PCP Requested Referral 3 10/12/2024 1 1 [facility] for referral (narrative)* Diagnostic Procedure Only (Urgent) - Closed Specialty Diagnoses / Procedures Referred By Contac t Referred To Contact XR IMAGING Diagnoses Rectal bleeding Chronic constipation Procedures XR ABDOMEN 1V SUPINE RADIOLOGIC EXAM ABDOMEN 1 VIEW Torres Yao MD [address] [place] [address] [place] [address] Referral ID Status Reason Start Date Expiration Date V isits Requested Visits Authorized [id number] Closed Auto-Generate d Referral 01/29/2024 02/27/2025 1 1 * Consult, Test, Treat (Routine) - Authorized Specialty Diagnoses / Procedures Referred By Contac t Referred To Contact General Surgery Diagnoses Rectal bleeding Chronic constipation Procedures CONSULT TO GENERAL SURGERY OFFICE/OUTPATIENT [facility] 60 MINUTES Torres Yao MD [address] [place] [address] Referral ID Status Reason Start Date Expiration Date Visits Requested Visits Authorized [id number] Authorized PCP Requested Referral 01/29/2024 01/28/2025 1 1 [facility] for referral (narrative)* Diagnostic Procedure Only (Urgent) - Closed Specialty Diagnoses / Procedures Referred By Contac t Referred To Contact XR IMAGING Diagnoses Acute right-sided low back pain without sciatica Procedures XR LUMBAR GENERAL 3V AP/LAT/L5-S1 RADEX SPINE LUMBOSACRAL 2/3 VIEWS Ellen Rene, [employer] OFF[employer]ER.[employer] WORKER [address] [place] [address] [place] [address] Referral ID Status Reason Start Date Expiration Date V isits Requested Visits Authorized [id number] Closed Auto-Generate d Referral 05/10/2024 06/09/2025 1 1 [facility] for referral (narrative)* Diagnostic Procedure Only (Routine) - Closed Specialty Diagnoses / Procedures Referred By Contac t Referred To Contact XR IMAGING Diagnoses Coccyx pain Procedures XR SACRUM/COCCYX 3V AP/LAT RADEX SACRUM & COCCYX MINIMUM 2 VIEWS Ellen Rene APRN.CNP [address] [place] [address] [place] [address] Referral ID Status Reason Start Date Expiration Date V isits Requested Visits Authorized [id number] Closed Auto-Generate d Referral 06/21/2024 07/21/2025 1 1 [facility] for referral (narrative)* Diagnostic Procedure Only (Routine) - Closed Specialty Diagnoses / Procedures Referred By Contac t Referred To Contact XR IMAGING Diagnoses Coccyx pain Procedures XR SACRUM/COCCYX 3V AP/LAT RADEX SACRUM & COCCYX MINIMUM 2 VIEWS Ellen Rene APRN.[employer] WORKER [address] [place] [address] [place] [address] Referral ID Status Reason Start Date Expiration Date V isits Requested Visits Authorized [id number] Closed Auto-Generate d Referral 06/21/2024 07/21/2025 1 1 [facility] for referral (narrative)* Diagnostic Procedure Only (Urgent) - Closed Specialty Diagnoses / Procedures Referred By Contac t Referred To Contact XR IMAGING Diagnoses Acute right-sided low back pain without sciatica Procedures XR LUMBAR GENERAL 3V AP/LAT/L5-S1 RADEX SPINE LUMBOSACRAL 2/3 VIEWS Ellen Rene APRN.[employer]RO[employer] WORKER [address] [place] [address] [place] [address] Referral ID Status Reason Start Date Expiration Date V isits Requested Visits Authorized [id number] Closed Auto-Generate d Referral 05/10/2024 06/09/2025 1 1 [facility] for referral (narrative)* Diagnostic Procedure Only (Urgent) - Closed Specialty Diagnoses / Procedures Referred By Contac t Referred To Contact XR IMAGING Diagnoses Rectal bleeding Chronic constipation Procedures XR ABDOMEN 1V SUPINE RADIOLOGIC EXAM ABDOMEN 1 VIEW Torres Yao MD [address] [place] [address] [place] [address] Referral ID Status Reason Start Date Expiration Date V isits Requested Visits Authorized [id number] Closed Auto-Generate d Referral 01/29/2024 02/27/2025 1 1 [facility] (narrative)[facility] for [facility] Work Phone: Reason for visit Narrative* Diagnostic Procedure Only (Routine) - Closed Specialty Diagnoses / Procedures Referred By Contac t Referred To Contact XR IMAGING Diagnoses Chronic pain of both shoulders Procedures XR SHOULDER ORTHO 4V AP/TRUE AP/LAT/OUTLET RIGHT RADEX SHOULDER COMPLETE MINIMUM 2 VIEWS Freeman Sarabia, NIECY [address] [place] [address] [place] [address] Referral ID Status Reason Start Date Expiration Date V isits Requested Visits Authorized [id number] Closed Auto-Generate d Referral 08/25/2023 09/23/2024 1 1 [facility] [facility] Diagnostic Procedure Only (Routine) - Closed Specialty Diagnoses / Procedures Referred By Contac t Referred To Contact [facility] Diagnoses Screening breast examination Procedures BRITTON SCREENING SCREENING MAMMOGRAPHY BI 2-VIEW BREAST INC CAD Torres Yao MD [address] [place] [address] [facility] [address] [place] [address] Referral ID Status Reason Start Date Expiration Date V isits Requested Visits Authorized [id number] Closed Auto-Generate d Referral 09/08/2022 10/08/2023 1 1 [facility] N[facility] Diagnostic Procedure Only (Routine) - Closed Specialty Diagnoses / Procedures Referred By Contac t Referred To Contact [facility] Diagnoses Encounter for screening mammogram for malignant neoplasm of breast Procedures BRITTON SCREENING SCREENING MAMMOGRAPHY BI 2-VIEW BREAST INC CAD Torres Yao MD [address] [place] [address] [facility] [address] [place] [address] Referral ID Status Reason Start Date Expiration Date V isits Requested Visits Authorized [id number] Closed Auto-Generate d Referral 10/13/2023 11/11/2024 1 1 [facility] N[facility]* Diagnostic Procedure Only (Routine) - Closed Specialty Diagnoses / Procedures Referred By Madelinac t Referred To Contact XR IMAGING Diagnoses Coccyx pain Procedures XR SACRUM/COCCYX 3V AP/LAT RADEX SACRUM & COCCYX MINIMUM 2 VIEWS Ellen Rene, PENAL OFFICER.[employer] WORKER [address] [place] [address] [place] [address] Referral ID Status Reason Start Date Expiration Date V isits Requested Visits Authorized [id number] Closed Auto-Generate d Referral 06/21/2024 07/21/2025 1 1 [facility] N[facility]ative* Diagnostic Procedure Only (Urgent) - Closed Specialty Diagnoses / Procedures Referred By Contac t Referred To Contact XR IMAG[facility] Diagnoses Acute right-sided low back pain without sciatica Procedures XR LUMBAR GENERAL 3V AP/LAT/L5-S1 RADEX SPINE LUMBOSACRAL 2/3 VIEWS Ellen Rene, PENAL OFFICER.[employer] WORKER [address] [place] [address] [place] [address] Referral ID Status Reason Start Date Expiration Date V isits Requested Visits Authorized [id number] Closed Auto-Generate d Referral 05/10/2024 06/09/2025 1 1 [facility] N[facility]* Diagnostic Procedure Only (Urgent) - Closed Specialty Diagnoses / Procedures Referred By Contac t Referred To Contact XR IMAGING Diagnoses Rectal bleeding Chronic constipation Procedures XR ABDOMEN 1V SUPINE RADIOLOGIC EXAM ABDOMEN 1 VIEW Torres Yao MD [address] [place] [address] [place] [address] Referral ID Status Reason Start Date Expiration Date V isits Requested Visits Authorized [id number] Closed Auto-Generate d Referral 01/29/2024 02/27/2025 1 1 [facility] N[facility]* Diagnostic Procedure Only (Routine) - Closed Specialty Diagnoses / Procedures Referred By Mercedes maravilla Referred To Contact [facility] Diagnoses Encounter for screening mammogram for breast cancer Procedures BRITTON SCREENING W CHANA SCREENING DIGITAL BREAST TOMOSYNTHESIS BI SCREENING MAMMOGRAPHY BI 2-VIEW BREAST INC CAD Torres Yao MD [address] [place] [address] Phone: tel: fax: [facility] [address] [place] [address] Referral ID Status Reason Start Date Expiration Date V isits Requested Visits Authorized [id number] Closed Auto-Generate d Referral 01/14/2025 02/13/2026 1 1 [facility] N[facility]ative* Diagnostic Procedure Only (Urgent) - Closed Specialty Diagnoses / Procedures Referred By Mercedes maravilla Referred To Contact [facility] Diagnoses Urinary retention Procedures US PELVIS BLADDER US PELVIC NONOBSTETRIC IMAGE DCMTN LIMITED/F/U Eldon, Ellen A, PENAL OFFICER.[employer] WORKER [address] [place] [address] Phone: tel: fax: [place] [address] Referral ID Status Reason Start Date Expiration Date V isits Requested Visits Authorized [id number] Closed Auto-Generate d Referral 05/05/2025 06/04/2026 1 1 [facility] Summary Purpose Family History No [...] Do you have a Healthcare Power of Manager Study? No May 29, 2025 3:27pm Reason for Referral Specialty Diagnoses / Procedures Referred By Mercedes maravilla Referred To Contact [facility] Diagnoses Subacromial bursitis of both shoulders Bilateral shoulder region arthritis Procedures CONSULT TO PHYSICAL THERAPY PHYSICAL THERAPY EVALUATION HIGH COMPLEX 45 MINS Freeman Sarabia PA-C [address] [place] [address] [facility] [place] [address] Referral ID Status Reason Start Date Expiration Date Visits Requested Visits Authorized [id number] Authorized PCP Requested Referral Auto-Generate d Referral 11/22/2024 11/22/2025 99 99 Specialty Diagnoses / Procedures Referred By Contac t Referred To Contact Diagnoses Chronic pain syndrome Freeman Sarabia PA-C [address] [place] [address] Referral ID Status Reason Start Date Expiration Date V isits Requested Visits Authorized [id number] Pending Review 1 1 Specialty Diagnoses / Procedures Referred By Contac t Referred To Contact Diagnoses Fibromyalgia Freeman Sarabia PA-C [address] [place] [address] Referral ID Status Reason Start Date Expiration Date V isits Requested Visits Authorized [id number] Pending Review 1 1 Chief Complaint and [...] section and content) DATE CREATED AUTHOR 05/29/2020 [facility] DATE CREATED AUTHOR AUTHOR'S ORGANIZ ATION 02/26/2021 [facility] DATE CREATED AUTHOR AUTHOR'S ORGANIZ ATION 03/07/2024 [facility] DATE CREATED AUTHOR AUTHOR'S ORGANIZ ATION 05/09/2025 [facility] DATE CREATED AUTHOR AUTHOR'S ORGANIZ ATION 05/19/2025 [facility] DATE CREATED AUTHOR AUTHOR'S ORGANIZ ATION 08/12/2025 [facility]ter DATE CREATED AUTHOR AUTHOR'S ORGANIZ ATION 09/03/2025 [facility] Source Comments (unrecognize d section and content) In the event this informatio n is protected by the Federal Confidentiality of Alcohol and Drug Abuse Patient Records regulations: The Federal rules restrict any use of the information to criminally investigate or prosecute any alcohol or drug abuse patient.[facility]In the event this information is protected by the Federal Confidentiality of Alcohol and Drug Abuse Patient Records regulations: The Federal rules restrict any use of the information to criminally investigate or prosecute any alcohol or drug abuse patient.[facility] HospitalIn the event this information is protected by the Federal Confidentiality of Alcohol and Drug Abuse Patient Records regulations: The Federal rules restrict any use of the information to criminally investigate or prosecute any alcohol or drug abuse patient.[facility] HospitalIn the event this information is protected by the Federal Confidentiality of Alcohol and Drug Abuse Patient Records regulations: The Federal rules restrict any use of the information to criminally investigate or prosecute any alcohol or drug abuse patient.[facility] HospitalIn the event this information is protected by the Federal Confidentiality of Alcohol and Drug Abuse Patient Records regulations: The Federal rules restrict any use of the information to criminally investigate or prosecute any alcohol or drug abuse patient.[facility] HospitalIn the event this information is protected by the Federal Confidentiality of Alcohol and Drug Abuse Patient Records regulations: The Federal rules restrict any use of the information to criminally investigate or prosecute any alcohol or drug abuse patient.[facility] HospitalIn the event this information is protected by the Federal Confidentiality of Alcohol and Drug Abuse Patient Records regulations: The Federal rules restrict any use of the information to criminally investigate or prosecute any alcohol or drug abuse patient.[facility] HospitalIn the event this information is protected by the Federal Confidentiality of Alcohol and Drug Abuse Patient Records regulations: The Federal rules restrict any use of the information to criminally investigate or prosecute any alcohol or drug abuse patient.[facility] HospitalIn the event this information is protected by the Federal Confidentiality of Alcohol and Drug Abuse Patient Records regulations: The Federal rules restrict any use of the information to criminally investigate or prosecute any alcohol or drug abuse patient.[facility] HospitalIn the event this information is protected by the Federal Confidentiality of Alcohol and Drug Abuse Patient Records regulations: The Federal rules restrict any use of the information to criminally investigate or prosecute any alcohol or drug abuse patient.[facility] HospitalIn the event this information is protected by the Federal Confidentiality of Alcohol and Drug Abuse Patient Records regulations: The Federal rules restrict any use of the information to criminally investigate or prosecute any alcohol or drug abuse patient.[facility] HospitalIn the event this information is protected by the Federal Confidentiality of Alcohol and Drug Abuse Patient Records regulations: The Federal rules restrict any use of the information to criminally investigate or prosecute any alcohol or drug abuse patient.[facility] HospitalIn the event this information is protected by the Federal Confidentiality of Alcohol and Drug Abuse Patient Records regulations: The Federal rules restrict any use of the information to criminally investigate or prosecute any alcohol or drug abuse patient.[facility] HospitalIn the event this information is protected by the Federal Confidentiality of Alcohol and Drug Abuse Patient Records regulations: The Federal rules restrict any use of the information to criminally investigate or prosecute any alcohol or drug abuse patient.[facility] HospitalIn the event this information is protected by the Federal Confidentiality of Alcohol and Drug Abuse Patient Records regulations: The Federal rules restrict any use of the information to criminally investigate or prosecute any alcohol or drug abuse patient.[facility] HospitalIn the event this information is protected by the Federal Confidentiality of Alcohol and Drug Abuse Patient Records regulations: The Federal rules restrict any use of the information to criminally investigate or prosecute any alcohol or drug abuse patient.[facility] HospitalIn the event this information is protected by the Federal Confidentiality of Alcohol and Drug Abuse Patient Records regulations: The Federal rules restrict any use of the information to criminally investigate or prosecute any alcohol or drug abuse patient.[facility] HospitalIn the event this information is protected by the Federal Confidentiality of Alcohol and Drug Abuse Patient Records regulations: The Federal rules restrict any use of the information to criminally investigate or prosecute any alcohol or drug abuse patient.[facility] HospitalIn the event this information is protected by the Federal Confidentiality of Alcohol and Drug Abuse Patient Records regulations: The Federal rules restrict any use of the information to criminally investigate or prosecute any alcohol or drug abuse patient.[facility] HospitalIn the event this information is protected by the Federal Confidentiality of Alcohol and Drug Abuse Patient Records regulations: The Federal rules restrict any use of the information to criminally investigate or prosecute any alcohol or drug abuse patient.[facility] HospitalIn the event this information is protected by the Federal Confidentiality of Alcohol and Drug Abuse Patient Records regulations: The Federal rules restrict any use of the information to criminally investigate or prosecute any alcohol or drug abuse patient.[facility] HospitalIn the event this information is protected by the Federal Confidentiality of Alcohol and Drug Abuse Patient Records regulations: The Federal rules restrict any use of the information to criminally investigate or prosecute any alcohol or drug abuse patient.[facility] HospitalIn the event this information is protected by the Federal Confidentiality of Alcohol and Drug Abuse Patient Records regulations: The Federal rules restrict any use of the information to criminally investigate or prosecute any alcohol or drug abuse patient.[facility] HospitalIn the event this information is protected by the Federal Confidentiality of Alcohol and Drug Abuse Patient Records regulations: The Federal rules restrict any use of the information to criminally investigate or prosecute any alcohol or drug abuse patient.[facility] HospitalIn the event this information is protected by the Federal Confidentiality of Alcohol and Drug Abuse Patient Records regulations: The Federal rules restrict any use of the information to criminally investigate or prosecute any alcohol or drug abuse patient.[facility] HospitalIn the event this information is protected by the Federal Confidentiality of Alcohol and Drug Abuse Patient Records regulations: The Federal rules restrict any use of the information to criminally investigate or prosecute any alcohol or drug abuse patient.[facility] HospitalIn the event this information is protected by the Federal Confidentiality of Alcohol and Drug Abuse Patient Records regulations: The Federal rules restrict any use of the information to criminally investigate or prosecute any alcohol or drug abuse patient.[facility] HospitalIn the event this information is protected by the Federal Confidentiality of Alcohol and Drug Abuse Patient Records regulations: The Federal rules restrict any use of the information to criminally investigate or prosecute any alcohol or drug abuse patient.[facility] HospitalIn the event this information is protected by the Federal Confidentiality of Alcohol and Drug Abuse Patient Records regulations: The Federal rules restrict any use of the information to criminally investigate or prosecute any alcohol or drug abuse patient.[facility] HospitalIn the event this information is protected by the Federal Confidentiality of Alcohol and Drug Abuse Patient Records regulations: The Federal rules restrict any use of the information to criminally investigate or prosecute any alcohol or drug abuse patient.[facility] HospitalIn the event this information is protected by the Federal Confidentiality of Alcohol and Drug Abuse Patient Records regulations: The Federal rules restrict any use of the information to criminally investigate or prosecute any alcohol or drug abuse patient.[facility] HospitalIn the event this information is protected by the Federal Confidentiality of Alcohol and Drug Abuse Patient Records regulations: The Federal rules restrict any use of the information to criminally investigate or prosecute any alcohol or drug abuse patient.[facility] HospitalIn the event this information is protected by the Federal Confidentiality of Alcohol and Drug Abuse Patient Records regulations: The Federal rules restrict any use of the information to criminally investigate or prosecute any alcohol or drug abuse patient.[facility] HospitalIn the event this information is protected by the Federal Confidentiality of Alcohol and Drug Abuse Patient Records regulations: The Federal rules restrict any use of the information to criminally investigate or prosecute any alcohol or drug abuse patient.[facility] HospitalIn the event this information is protected by the Federal Confidentiality of Alcohol and Drug Abuse Patient Records regulations: The Federal rules restrict any use of the information to criminally investigate or prosecute any alcohol or drug abuse patient.[facility] HospitalIn the event this information is protected by the Federal Confidentiality of Alcohol and Drug Abuse Patient Records regulations: The Federal rules restrict any use of the information to criminally investigate or prosecute any alcohol or drug abuse patient.[facility] HospitalIn the event this information is protected by the Federal Confidentiality of Alcohol and Drug Abuse Patient Records regulations: The Federal rules restrict any use of the information to criminally investigate or prosecute any alcohol or drug abuse patient.[facility] HospitalIn the event this information is protected by the Federal Confidentiality of Alcohol and Drug Abuse Patient Records regulations: The Federal rules restrict any use of the information to criminally investigate or prosecute any alcohol or drug abuse patient.[facility] HospitalIn the event this information is protected by the Federal Confidentiality of Alcohol and Drug Abuse Patient Records regulations: The Federal rules restrict any use of the information to criminally investigate or prosecute any alcohol or drug abuse patient.[facility] HospitalIn the event this information is protected by the Federal Confidentiality of Alcohol and Drug Abuse Patient Records regulations: The Federal rules restrict any use of the information to criminally investigate or prosecute any alcohol or drug abuse patient.[facility] HospitalIn the event this information is protected by the Federal Confidentiality of Alcohol and Drug Abuse Patient Records regulations: The Federal rules restrict any use of the information to criminally investigate or prosecute any alcohol or drug abuse patient.[facility] HospitalIn the event this information is protected by the Federal Confidentiality of Alcohol and Drug Abuse Patient Records regulations: The Federal rules restrict any use of the information to criminally investigate or prosecute any alcohol or drug abuse patient.[facility] HospitalIn the event this information is protected by the Federal Confidentiality of Alcohol and Drug Abuse Patient Records regulations: The Federal rules restrict any use of the information to criminally investigate or prosecute any alcohol or drug abuse patient.[facility] HospitalIn the event this information is protected by the Federal Confidentiality of Alcohol and Drug Abuse Patient Records regulations: The Federal rules restrict any use of the information to criminally investigate or prosecute any alcohol or drug abuse patient.[facility] HospitalIn the event this information is protected by the Federal Confidentiality of Alcohol and Drug Abuse Patient Records regulations: The Federal rules restrict any use of the information to criminally investigate or prosecute any alcohol or drug abuse patient.[facility] HospitalIn the event this information is protected by the Federal Confidentiality of Alcohol and Drug Abuse Patient Records regulations: The Federal rules restrict any use of the information to criminally investigate or prosecute any alcohol or drug abuse patient.[facility] HospitalIn the event this information is protected by the Federal Confidentiality of Alcohol and Drug Abuse Patient Records regulations: The Federal rules restrict any use of the information to criminally investigate or prosecute any alcohol or drug abuse patient.[facility] HospitalIn the event this information is protected by the Federal Confidentiality of Alcohol and Drug Abuse Patient Records regulations: The Federal rules restrict any use of the information to criminally investigate or prosecute any alcohol or drug abuse patient.[facility] HospitalIn the event this information is protected by the Federal Confidentiality of Alcohol and Drug Abuse Patient Records regulations: The Federal rules restrict any use of the information to criminally investigate or prosecute any alcohol or drug abuse patient.[facility] HospitalIn the event this information is protected by the Federal Confidentiality of Alcohol and Drug Abuse Patient Records regulations: The Federal rules restrict any use of the information to criminally investigate or prosecute any alcohol or drug abuse patient.[facility] HospitalIn the event this information is protected by the Federal Confidentiality of Alcohol and Drug Abuse Patient Records regulations: The Federal rules restrict any use of the information to criminally investigate or prosecute any alcohol or drug abuse patient.[facility] HospitalIn the event this information is protected by the Federal Confidentiality of Alcohol and Drug Abuse Patient Records regulations: The Federal rules restrict any use of the information to criminally investigate or prosecute any alcohol or drug abuse patient.[facility] HospitalIn the event this information is protected by the Federal Confidentiality of Alcohol and Drug Abuse Patient Records regulations: The Federal rules restrict any use of the information to criminally investigate or prosecute any alcohol or drug abuse patient.[facility] HospitalIn the event this information is protected by the Federal Confidentiality of Alcohol and Drug Abuse Patient Records regulations: The Federal rules restrict any use of the information to criminally investigate or prosecute any alcohol or drug abuse patient.[facility] HospitalIn the event this information is protected by the Federal Confidentiality of Alcohol and Drug Abuse Patient Records regulations: The Federal rules restrict any use of the information to criminally investigate or prosecute any alcohol or drug abuse patient.[facility] HospitalIn the event this information is protected by the Federal Confidentiality of Alcohol and Drug Abuse Patient Records regulations: The Federal rules restrict any use of the information to criminally investigate or prosecute any alcohol or drug abuse patient.[facility] HospitalIn the event this information is protected by the Federal Confidentiality of Alcohol and Drug Abuse Patient Records regulations: The Federal rules restrict any use of the information to criminally investigate or prosecute any alcohol or drug abuse patient.[facility] HospitalIn the event this information is protected by the Federal Confidentiality of Alcohol and Drug Abuse Patient Records regulations: The Federal rules restrict any use of the information to criminally investigate or prosecute any alcohol or drug abuse patient.[facility] HospitalIn the event this information is protected by the Federal Confidentiality of Alcohol and Drug Abuse Patient Records regulations: The Federal rules restrict any use of the information to criminally investigate or prosecute any alcohol or drug abuse patient.[facility] HospitalIn the event this information is protected by the Federal Confidentiality of Alcohol and Drug Abuse Patient Records regulations: The Federal rules restrict any use of the information to criminally investigate or prosecute any alcohol or drug abuse patient.[facility] HospitalIn the event this information is protected by the Federal Confidentiality of Alcohol and Drug Abuse Patient Records regulations: The Federal rules restrict any use of the information to criminally investigate or prosecute any alcohol or drug abuse patient.[facility] HospitalIn the event this information is protected by the Federal Confidentiality of Alcohol and Drug Abuse Patient Records regulations: The Federal rules restrict any use of the information to criminally investigate or prosecute any alcohol or drug abuse patient.[facility] HospitalIn the event this information is protected by the Federal Confidentiality of Alcohol and Drug Abuse Patient Records regulations: The Federal rules restrict any use of the information to criminally investigate or prosecute any alcohol or drug abuse patient.[facility] HospitalIn the event this information is protected by the Federal Confidentiality of Alcohol and Drug Abuse Patient Records regulations: The Federal rules restrict any use of the information to criminally investigate or prosecute any alcohol or drug abuse patient.[facility] HospitalIn the event this information is protected by the Federal Confidentiality of Alcohol and Drug Abuse Patient Records regulations: The Federal rules restrict any use of the information to criminally investigate or prosecute any alcohol or drug abuse patient.[facility] [facility] HospitalIn the event this information is protected by the Federal Confidentiality of Alcohol and Drug Abuse Patient Records regulations: The Federal rules restrict any use of the information to criminally investigate or prosecute any alcohol or drug abuse patient.[facility] HospitalIn the event this information is protected by the Federal Confidentiality of Alcohol and Drug Abuse Patient Records regulations: The Federal rules restrict any use of the information to criminally investigate or prosecute any alcohol or drug abuse patient.[facility] HospitalIn the event this information is protected by the Federal Confidentiality of Alcohol and Drug Abuse Patient Records regulations: The Federal rules restrict any use of the information to criminally investigate or prosecute any alcohol or drug abuse patient.[facility] HospitalIn the event this information is protected by the Federal Confidentiality of Alcohol and Drug Abuse Patient Records regulations: The Federal rules restrict any use of the information to criminally investigate or prosecute any alcohol or drug abuse patient.[facility] HospitalIn the event this information is protected by the Federal Confidentiality of Alcohol and Drug Abuse Patient Records regulations: The Federal rules restrict any use of the information to criminally investigate or prosecute any alcohol or drug abuse patient.[facility] HospitalIn the event this information is protected by the Federal Confidentiality of Alcohol and Drug Abuse Patient Records regulations: The Federal rules restrict any use of the information to criminally investigate or prosecute any alcohol or drug abuse patient.[facility] HospitalIn the event this information is protected by the Federal Confidentiality of Alcohol and Drug Abuse Patient Records regulations: The Federal rules restrict any use of the information to criminally investigate or prosecute any alcohol or drug abuse patient.[facility] HospitalIn the event this information is protected by the Federal Confidentiality of Alcohol and Drug Abuse Patient Records regulations: The Federal rules restrict any use of the information to criminally investigate or prosecute any alcohol or drug abuse patient.[facility] HospitalIn the event this information is protected by the Federal Confidentiality of Alcohol and Drug Abuse Patient Records regulations: The Federal rules restrict any use of the information to criminally investigate or prosecute any alcohol or drug abuse patient.[facility] HospitalIn the event this information is protected by the Federal Confidentiality of Alcohol and Drug Abuse Patient Records regulations: The Federal rules restrict any use of the information to criminally investigate or prosecute any alcohol or drug abuse patient.[facility] HospitalIn the event this information is protected by the Federal Confidentiality of Alcohol and Drug Abuse Patient Records regulations: The Federal rules restrict any use of the information to criminally investigate or prosecute any alcohol or drug abuse patient.[facility] HospitalIn the event this information is protected by the Federal Confidentiality of Alcohol and Drug Abuse Patient Records regulations: The Federal rules restrict any use of the information to criminally investigate or prosecute any alcohol or drug abuse patient.[facility] HospitalIn the event this information is protected by the Federal Confidentiality of Alcohol and Drug Abuse Patient Records regulations: The Federal rules restrict any use of the information to criminally investigate or prosecute any alcohol or drug abuse patient.[facility] HospitalIn the event this information is protected by the Federal Confidentiality of Alcohol and Drug Abuse Patient Records regulations: The Federal rules restrict any use of the information to criminally investigate or prosecute any alcohol or drug abuse patient.[facility] HospitalIn the event this information is protected by the Federal Confidentiality of Alcohol and Drug Abuse Patient Records regulations: The Federal rules restrict any use of the information to criminally investigate or prosecute any alcohol or drug abuse patient.[facility] HospitalIn the event this information is protected by the Federal Confidentiality of Alcohol and Drug Abuse Patient Records regulations: The Federal rules restrict any use of the information to criminally investigate or prosecute any alcohol or drug abuse patient.[facility] HospitalIn the event this information is protected by the Federal Confidentiality of Alcohol and Drug Abuse Patient Records regulations: The Federal rules restrict any use of the information to criminally investigate or prosecute any alcohol or drug abuse patient.[facility] HospitalIn the event this information is protected by the Federal Confidentiality of Alcohol and Drug Abuse Patient Records regulations: The Federal rules restrict any use of the information to criminally investigate or prosecute any alcohol or drug abuse patient.[facility] HospitalIn the event this information is protected by the Federal Confidentiality of Alcohol and Drug Abuse Patient Records regulations: The Federal rules restrict any use of the information to criminally investigate or prosecute any alcohol or drug abuse patient.[facility] HospitalIn the event this information is protected by the Federal Confidentiality of Alcohol and Drug Abuse Patient Records regulations: The Federal rules restrict any use of the information to criminally investigate or prosecute any alcohol or drug abuse patient.[facility] HospitalIn the event this information is protected by the Federal Confidentiality of Alcohol and Drug Abuse Patient Records regulations: The Federal rules restrict any use of the information to criminally investigate or prosecute any alcohol or drug abuse patient.[facility] HospitalIn the event this information is protected by the Federal Confidentiality of Alcohol and Drug Abuse Patient Records regulations: The Federal rules restrict any use of the information to criminally investigate or prosecute any alcohol or drug abuse patient.[facility] HospitalIn the event this information is protected by the Federal Confidentiality of Alcohol and Drug Abuse Patient Records regulations: The Federal rules restrict any use of the information to criminally investigate or prosecute any alcohol or drug abuse patient.[facility] HospitalIn the event this information is protected by the Federal Confidentiality of Alcohol and Drug Abuse Patient Records regulations: The Federal rules restrict any use of the information to criminally investigate or prosecute any alcohol or drug abuse patient.[facility] HospitalIn the event this information is protected by the Federal Confidentiality of Alcohol and Drug Abuse Patient Records regulations: The Federal rules restrict any use of the information to criminally investigate or prosecute any alcohol or drug abuse patient.[facility] HospitalIn the event this information is protected by the Federal Confidentiality of Alcohol and Drug Abuse Patient Records regulations: The Federal rules restrict any use of the information to criminally investigate or prosecute any alcohol or drug abuse patient.[facility] HospitalIn the event this information is protected by the Federal Confidentiality of Alcohol and Drug Abuse Patient Records regulations: The Federal rules restrict any use of the information to criminally investigate or prosecute any alcohol or drug abuse patient.[facility] HospitalIn the event this information is protected by the Federal Confidentiality of Alcohol and Drug Abuse Patient Records regulations: The Federal rules restrict any use of the information to criminally investigate or prosecute any alcohol or drug abuse patient.[facility] HospitalIn the event this information is protected by the Federal Confidentiality of Alcohol and Drug Abuse Patient Records regulations: The Federal rules restrict any use of the information to criminally investigate or prosecute any alcohol or drug abuse patient.[facility] HospitalIn the event this information is protected by the Federal Confidentiality of Alcohol and Drug Abuse Patient Records regulations: The Federal rules restrict any use of the information to criminally investigate or prosecute any alcohol or drug abuse patient.[facility] HospitalIn the event this information is protected by the Federal Confidentiality of Alcohol and Drug Abuse Patient Records regulations: The Federal rules restrict any use of the information to criminally investigate or prosecute any alcohol or drug abuse patient.[facility] HospitalIn the event this information is protected by the Federal Confidentiality of Alcohol and Drug Abuse Patient Records regulations: The Federal rules restrict any use of the information to criminally investigate or prosecute any alcohol or drug abuse patient.[facility] HospitalIn the event this information is protected by the Federal Confidentiality of Alcohol and Drug Abuse Patient Records regulations: The Federal rules restrict any use of the information to criminally investigate or prosecute any alcohol or drug abuse patient.[facility] HospitalIn the event this information is protected by the Federal Confidentiality of Alcohol and Drug Abuse Patient Records regulations: The Federal rules restrict any use of the information to criminally investigate or prosecute any alcohol or drug abuse patient.[facility] HospitalIn the event this information is protected by the Federal Confidentiality of Alcohol and Drug Abuse Patient Records regulations: The Federal rules restrict any use of the information to criminally investigate or prosecute any alcohol or drug abuse patient.[facility] HospitalIn the event this information is protected by the Federal Confidentiality of Alcohol and Drug Abuse Patient Records regulations: The Federal rules restrict any use of the information to criminally investigate or prosecute any alcohol or drug abuse patient.[facility] Care Teams (unrecognized sec tion and content) Varnish Maker Helper Relationship Specialty Start Date End Date Torres Yao MD [address] [place] [address] PCP - General Family Practice 01/14/15 Varnish Maker Helper Relationship Specialty Start Date End Date Torres Yao MD [address] [facility] [place] [address] PCP - General Family Practice 01/14/15 Varnish Maker Helper Relationship Specialty Start Date End Date Torres Yao MD [address] [facility] [place] [address] PCP - General Family Practice 01/14/15 Varnish Maker Helper Relationship Specialty Start Date End Date Torres Yao MD [address] [facility] [place] [address] PCP - General Family Practice 01/14/15 Varnish Maker Helper Relationship Specialty Start Date End Date Torres Yao MD [address] [facility] [place] [address] PCP - General Family Practice 01/14/15 Varnish Maker Helper Relationship Specialty Start Date End Date Torres Yao MD [address] [facility] [place] [address] PCP - General Family Practice 01/14/15 Varnish Maker Helper Relationship Specialty Start Date End Date Torres Yao MD [address] [facility] [place] [address] PCP - General Family Practice 01/14/15 Varnish Maker Helper Relationship Specialty Start Date End Date Torres Yao MD [address] [facility] [place] [address] PCP - General Family Medicine 01/14/15 Varnish Maker Helper Relationship Specialty Start Date End Date Torres Yao MD [address] [facility] [place] [address] PCP - General Family Medicine 01/14/15 Varnish Maker Helper Relationship Specialty Start Date End Date Torres Yao MD [address] [facility] [place] [address] PCP - General Family Medicine 01/14/15 Varnish Maker Helper Relationship Specialty Start Date End Date Torres Yao MD [address] [facility] [place] [address] PCP - General Family Medicine 01/14/15 Varnish Maker Helper Relationship Specialty Start Date End Date Torres Yao MD [address] [facility] [place] [address] PCP - General Family Medicine 01/14/15 Varnish Maker Helper Relationship Specialty Start Date End Date Torres Yao MD [address] [facility] [place] [address] PCP - General Family Medicine 01/14/15 Varnish Maker Helper Relationship Specialty Start Date End Date Torres Yao MD [address] [facility] [place] [address] PCP - General Family Medicine 01/14/15 Varnish Maker Helper Relationship Specialty Start Date End Date Torres Yao MD [address] [facility] [place] [address] PCP - General Family Medicine 01/14/15 Varnish Maker Helper Relationship Specialty Start Date End Date Torres Yao MD [address] [facility] [place] [address] PCP - General Family Medicine 01/14/15 Varnish Maker Helper Relationship Specialty Start Date End Date Torres Yao MD [address] [facility] [place] [address] PCP - General Family Medicine 01/14/15 Varnish Maker Helper Relationship Specialty Start Date End Date Torres Yao MD [address] [facility] [place] [address] PCP - General Family Medicine 01/14/15 Varnish Maker Helper Relationship Specialty Start Date End Date Torres Yao MD [address] [place] [address] PCP - General Family Medicine 01/14/15 Varnish Maker Helper Relationship Specialty Start Date End Date Torres Yao MD [address] [place] [address] PCP - General Family Medicine 01/14/15 Varnish Maker Helper Relationship Specialty Start Date End Date Torres Yao MD [address] [place] [address] PCP - General Family Medicine 01/14/15 Varnish Maker Helper Relationship Specialty Start Date End Date Torres Yao MD [address] [place] [address] PCP - General Family Medicine 01/14/15 Varnish Maker Helper Relationship Specialty Start Date End Date Torres Yao MD [address] [place] [address] PCP - General Family Medicine 01/14/15 Varnish Maker Helper Relationship Specialty Start Date End Date Torres Yao MD [address] [place] [address] PCP - General Family Medicine 01/14/15 Varnish Maker Helper Relationship Specialty Start Date End Date Torres Yao MD [address] [place] [address] PCP - General Family Medicine 01/14/15 Varnish Maker Helper Relationship Specialty Start Date End Date Torres Yao MD [address] [place] [address] PCP - General Family Medicine 01/14/15 Varnish Maker Helper Relationship Specialty Start Date End Date Torres Yao MD [address] [facility] [place] [address] PCP - General Family Medicine 01/14/15 Varnish Maker Helper Relationship Specialty Start Date End Date Torres Yao MD [address] [facility] [place] [address] PCP - General Family Medicine 01/14/15 Varnish Maker Helper Relationship Specialty Start Date End Date Torres Yao MD [address] [facility] [place] [address] PCP - General Family Medicine 01/14/15 Varnish Maker Helper Relationship Specialty Start Date End Date Torres Yao MD [address] [facility] [place] [address] PCP - General Family Medicine 01/14/15 Varnish Maker Helper Relationship Specialty Start Date End Date Torres Yao MD [address] [facility] [place] [address] PCP - General Family Medicine 01/14/15 Varnish Maker Helper Relationship Specialty Start Date End Date Torres Yao MD [address] [facility] [place] [address] PCP - General Family Medicine 01/14/15 Varnish Maker Helper Relationship Specialty Start Date End Date Torres Yao MD [address] [facility] [place] [address] PCP - General Family Medicine 01/14/15 Varnish Maker Helper Relationship Specialty Start Date End Date Torres Yao MD [address] [facility] [place] [address] PCP - General Family Medicine 01/14/15 Varnish Maker Helper Relationship Specialty Start Date End Date Torres Yao MD [address] [place], [place] [address] PCP - General Family Medicine 01/14/15 Varnish Maker Helper Relationship Specialty Start Date End Date Torres Yao MD [address] [place], [place] [address] PCP - General Family Medicine 01/14/15 Varnish Maker Helper Relationship Specialty Start Date End Date Torres Yao MD [address] [place] [address] PCP - General Family Medicine 01/14/15 Varnish Maker Helper Relationship Specialty Start Date End Date Torres Yao MD [address] [place] [address] PCP - General Family Medicine 01/14/15 Varnish Maker Helper Relationship Specialty Start Date End Date Torres Yao MD [address] [place] [address] PCP - General Family Medicine 01/14/15 Varnish Maker Helper Relationship Specialty Start Date End Date Torres Yao MD [address] [place] [address] PCP - General Family Medicine 01/14/15 Varnish Maker Helper Relationship Specialty Start Date End Date Torres Yao MD [address] [place], [place] [address] PCP - General Family Medicine 01/14/15 Varnish Maker Helper Relationship Specialty Start Date End Date Torres Yao MD [address] [place], [place] [address] PCP - General Family Medicine 01/14/15 Varnish Maker Helper Relationship Specialty Start Date End Date Torres Yao MD [address] [facility] [place] [address] PCP - General Family Medicine 01/14/15 Varnish Maker Helper Relationship Specialty Start Date End Date Torres Yao MD [address] [facility] [place] [address] PCP - General Family Medicine 01/14/15 Varnish Maker Helper Relationship Specialty Start Date End Date Torres Yao MD [address] [place] [address] PCP - General Family Medicine 01/14/15 Beryl Tejada, PENAL OFFICER.DARKROOM WORKER [address] [place] [address] Lcac Operator Family Medicine 10/07/24 Ellen Rene, PENAL OFFICER.DARKROOM WORKER [address] [facility] [place] [address] Lcac Operator Family Medicine 10/07/24 Varnish Maker Helper Relationship Specialty Start Date End Date Torres Yao MD [address] [place] [address] PCP - General Family Medicine 01/14/15 Beryl Tejada, PENAL OFFICER.DARKROOM WORKER [address] [facility] [place] [address] [facility] Family Medicine 10/07/24 Ellen Rene, PENAL OFFICER.DARKROOM WORKER [address] [facility] [place] [address] Lcac Operator Family Medicine 10/07/24 Varnish Maker Helper Relationship Specialty Start Date End Date Torres Yao MD [address] [place] [address] PCP - General Family Medicine 01/14/15 Beryl Tejada APRN.DARKROOM WORKER [address] [place] [place] [address] Lcac Operator Family Medicine 10/07/24 Ellen Rene PENAL OFFICER.DARKROOM WORKER [address] [place] [address] Lcac Operator [facility] 10/07/24 Varnish Maker Helper Relationship Specialty Start Date End Date Torres Yao MD [address] [place] [address] PCP - General Family Medicine 01/14/15 Beryl Tejada PENAL OFFICER.DARKROOM WORKER [address] [place] [address] Lcac Operator Family Medicine 10/07/24 Ellen Rene PENAL OFFICER.DARKROOM WORKER [address] [place] [address] Lcac Operator Family Medicine 10/07/24 Varnish Maker Helper Relationship Specialty Start Date End Date Torres Yao MD [address] [place] [address] PCP - General Family Medicine 01/14/15 Beryl Tejada APRN.DARKROOM WORKER [address] [place] [address] Lcac Operator Family Medicine 10/07/24 Ellen Rene PENAL OFFICER.DARKROOM WORKER [address] [place] [address] Lcac Operator Family [facility] 10/07/24 Varnish Maker Helper Relationship Specialty Start Date End Date Torres Yao MD [address] [place] [address] PCP - General Family Medicine 01/14/15 Beryl Tejada, PENAL OFFICER.DARKROOM WORKER [address] [place] [address] Lcac Operator Family Medicine 10/07/24 Ellen Rene APRN.DARKROOM WORKER [address] [place] [address] [facility] Varnish Maker Helper Relationship Specialty Start Date End Date Torres Yao MD [address] [place] [address] PCP - General Family Medicine 01/14/15 Beryl Tejada PENAL OFFICER.DARKROOM WORKER [address] [place] [address] Lcac Operator Family Medicine 10/07/24 Ellen Rene PENAL OFFICER.DARKROOM WORKER [address] [place] [address] Lcac Operator Family Medicine 10/07/24 Varnish Maker Helper Relationship Specialty Start Date End Date Torres Yao MD [address] [place] [address] PCP - General Family Medicine 01/14/15 Beryl Tejada, PENAL OFFICER.DARKROOM WORKER [address] [place] [address] Lcac Operator Family Medicine 10/07/24 Ellen Rene PENAL OFFICER.DARKROOM WORKER [address] [place] [address] [facility] 10/07/24 Varnish Maker Helper Relationship Specialty Start Date End Date Torres Yao MD [address] [facility] [place] [address] [phone] PCP - General Family Medicine 01/14/15 Beryl Tejada APRN.DARKROOM WORKER [address] [place] [address] [facility] 10/07/24 Ellen Rene PENAL OFFICER.DARKROOM WORKER [address] [place] [address] [facility] 10/07/24 Varnish Maker Helper Relationship Specialty Start Date End Date Torres Yao MD [address] [place] [address] PCP - General Family Medicine 01/14/15 Beryl Tejada, PENAL OFFICER.DARKROOM WORKER [address] [facility] [place] [address] [facility] Medicine 10/07/24 Ellen Rene PENAL OFFICER.DARKROOM WORKER [address] [place] [address] [facility] Medicine 10/07/24 Varnish Maker Helper Relationship Specialty Start Date End Date Torres Yao MD [address] [facility] [place] [address] [phone] PCP - General Family Medicine 01/14/15 Beryl Tejada, PENAL OFFICER.DARKROOM WORKER [address] [facility] [address] Lcac Operator Family Medicine 10/07/24 Ellen Rene PENAL OFFICER.DARKROOM WORKER [address] [place] [address] Lcac Operator Family Medicine 10/07/24 Varnish Maker Helper Relationship Specialty Start Date End Date Torres Yao MD [address] [place] [address] PCP - General Family Medicine 01/14/15 Beryl Tejada PENAL OFFICER.DARKROOM WORKER [address] [facility] [address] Lcac Operator Family Medicine 10/07/24 Ellen Rene PENAL OFFICER.DARKROOM WORKER [address] [place] [address] [facility] Varnish Maker Helper Relationship Specialty Start Date End Date Torres Yao MD [address] [place] [address] PCP - General Family Medicine 01/14/15 Beryl Tejada, PENAL OFFICER.DARKROOM WORKER [address] [facility] [place] [address] Lcac Operator Family Medicine 10/07/24 Ellen Rene PENAL OFFICER.DARKROOM WORKER [address] [place] [address] [facility] 10/07/24 Varnish Maker Helper Relationship Specialty Start Date End Date Torres Yao MD [address] [facility] [place], [place] [address] PCP - General Family Medicine 01/14/15 Beryl Tejada, PENAL OFFICER.DARKROOM WORKER [address] [facility] [place] [address] Lcac Operator [facility] 10/07/24 Ellen Rene PENAL OFFICER.DARKROOM WORKER [address] [facility] [place] [address] [facility] Team Status: Active Member Role [...] April 21, 2025 End: April 21, 2025 Varnish Maker Helper Relationship Specialty Start Date End Date Torres Yao MD [address] [facility] [place], [place] [address] PCP - General Family Medicine 01/14/15 Beryl Tejada, PENAL OFFICER.DARKROOM WORKER [address] [facility] [place] [address] Lcac Operator [facility] 10/07/24 Ellen Rene APRN.DARKROOM WORKER [address] [place] [address] [facility] 10/07/24 Varnish Maker Helper Relationship Specialty Start Date End Date Torres Yao MD [address] [place] [address] PCP - General Family Medicine 01/14/15 Beryl Tejada APRN.DARKROOM WORKER [address] [place] [address] [facility] 10/07/24 Ellen Rene PENAL OFFICER.DARKROOM WORKER [address] [place] [address] Lcac OperatorEast Morgan [facility] Varnish Maker Helper Relationship Specialty Start Date End Date Torres Yao MD [address] [place] [address] PCP - General Family Medicine 01/14/15 Beryl Tejada PENAL OFFICER.DARKROOM WORKER [address] [place] [address] [facility] Ellen Rene PENAL OFFICER.DARKROOM WORKER [address] [place] [address] [facility] Team Status: Active Member Role/Relationship [...] May 20, 2025 End: May 20, 2025 Varnish Maker Helper Relationship Specialty Start Date End Date Torres Yao MD [address] [place], [place] [id number] PCP - General Family Medicine 01/14/15 Beryl Tejada APRN.DARKROOM WORKER [address] [place] [address] Lcac Operator Family Medicine 10/07/24 Ellen Rene PENAL OFFICER.DARKROOM WORKER [address] [place] [address] Lcac Operator Family Medicine 10/07/24 Team Status: Inactive Member [...] EVALUATION HIGH COMPLEX 45 MINS Ellen Rene, PENAL OFFICER.DARKROOM WORKER [address] [place] [address] Phone: tel: fax: [facility] [address] [place] [address] Referral ID Status Reason Start Date Expiration Date Visits Requested Visits Authorized [id number] Authorized PCP Requested Referral Auto-Generate d Referral 05/17/2024 05/10/2025 99 99 Reason Comments PT Progress Note Specialty Diagnoses / Procedures Referred By Contac t Referred To Contact PHYSICAL THERAPY Diagnoses Subacromial bursitis of both shoulders Bilateral shoulder region arthritis Procedures CONSULT TO PHYSICAL THERAPY PHYSICAL THERAPY EVALUATION HIGH COMPLEX 45 MINS Freeman Sarabia PA-C [address] [place] [address] Phone: tel: fax: [facility] [address] [place] [address] Phone: tel: fax: Referral ID Status Reason Start Date Expiration Date Visits Requested Visits Authorized [id number] Authorized PCP Requested Referral Auto-Generate d Referral 11/22/2024 11/22/2025 99 99 Reason Comments PT Eval Specialty Diagnoses / Procedures Referred By Contac t Referred To Contact PHYSICAL THERAPY Diagnoses Subacromial bursitis of both shoulders Bilateral shoulder region arthritis Procedures CONSULT TO PHYSICAL THERAPY PHYSICAL THERAPY EVALUATION HIGH COMPLEX 45 MINS Freeman Sarabia PA-C [address] [place] [address] Pt [facility] [address] [place] [address] Referral ID Status Reason Start Date Expiration Date Visits Requested Visits Authorized [id number] Authorized PCP Requested Referral Auto-Generate d Referral 11/22/2024 11/22/2025 99 99 Reason Comments PT Discharge Specialty Diagnoses / Procedures Referred By Contac t Referred To Contact [facility] Diagnoses Acute midline low back pain without sciatica Procedures CONSULT TO PHYSICAL THERAPY PHYSICAL THERAPY EVALUATION HIGH COMPLEX 45 MINS Ellen Rene, KIM.DARKROOM WORKER [address] [place] [address] [facility] [address] [place] [address] Referral ID Status Reason Start Date Expiration Date Visits Requested Visits Authorized [id number] Authorized PCP Requested Referral Auto-Generate d Referral [...] W/O US GUIDANCE [facility] [address] [place] [address] Referral ID Status Reason Start Date Expiration Date Visits Re quested Visits Authorized [id number] 1 Reason Onset Date Comments Refill [...] Problem Blood in stool X [address] [facility]. 3 episodes Reason Comments Pain Generalized pain [...] BE BASED ON THE PRIMARY CLINICAL RECORDS. [employer] [facility]. provides no warranty or guarantee of the accuracy or completeness of information in this document.
[2025-10-01 21:00] VITALS: BP 102/47; PULSE 62; RESP 16; O2SAT 100
--- NOTE | 2025-10-01 21:47 | US_ITS ---
PROCEDURE: US ABDOMEN LIMITED 10/01/2025 REASON FOR EXAM: GALLSTONE PANCREATITIS TECHNIQUE: Procedure Code: USABDL Modality: US Procedure: ABDOMEN LIMITED COMPARISON: None available. FINDINGS: Liver: Grossly normal in size with homogeneous parenchymal echotexture. Gallbladder: Distended with cholelithiasis, with multiple shadowing gallstones layering dependently. No significant gallbladder wall thickening or pericholecystic fluid visualized. Positive sonographic Yao's sign was reported on palpation. Common bile duct: There is intra and extrahepatic biliary ductal dilatation. The CBD is dilated measuring up to 1.7 cm diameter. Pancreas: Mildly dilated main pancreatic duct measuring up to 0.4 cm diameter. Somewhat heterogeneous appearance of the parenchyma may reflect edema. Other: Visualized right kidney is unremarkable. No right upper quadrant ascites. US/Abdomen Limited IMPRESSION: Cholelithiasis, with distended gallbladder and biliary ductal dilatation. Mild pancreatic duct dilatation. Distal choledocholithiasis is suspected. Positive sonographic Yao's sign reported but otherwise equivocal exam for acute cholecystitis. MRCP and/or nuclear HIDA scan may be helpful. Reading Location: [id number]
[2025-10-01 21:52] VITALS: BP 118/98; PULSE 64; RESP 18; TEMP 36.6; O2SAT 100
[2025-10-01 21:56] VITALS: BMI 28.9
[2025-10-01] MEDS: 0.9% Normal Saline (1000mL) 1,000 ML 200 ML IV (22:48)
[2025-10-01 23:22] VITALS: RESP 15
[2025-10-02] VITALS (8 sets, daily range): BP systolic 85–104; BP diastolic 45–65; PULSE 45–90; RESP 15–16; TEMP 36.3–37.2; O2SAT 96–100
[2025-10-02] MEDS: HYDROmorphone Inj 0.2 MG/ML SYRINGE IV ×2 (01:15→11:23)
[2025-10-02] MEDS: 0.9% Normal Saline (1000mL) 1,000 ML 200 ML IV (04:59)
[2025-10-02 06:35] LABS: Hematocrit 34.5 % (37-47); Hemoglobin 11.2 g/dL (12.0-15.0); Immature Granulocytes Count 0.010 X10^3/uL (0.0-0.0); Mean Corp Hgb Conc 32.5 g/dL (32-36); Mean Corpuscular Volume 95.8 fL (81-99); Mean Platelet Vol. 12.1 fl (6.2-12.0); NRBC Flagged by Analyzer 0 % (0-5); Platelet Count 101 K/mm3 (150-450); RBC Distribution Width CV 12.6 % (11.6-14.6); RBC Distribution Width SD 44.7 fl (35.1-43.9); Red Blood Count 3.60 M/mm3 (4.2-5.4); White Blood Count 3.3 K/mm3 (4.4-11.0)
[2025-10-02 07:09] LABS: AST(SGOT) 190 U/L (<=31); Alanine Aminotransfer ALT/SGPT 278 U/L (<=34); Albumin, Serum 3.5 g/dL (3.5-5.0); Alkaline Phosphatase 345 U/L (35-104); Anion Gap 11 (5-15); BUN 12 mg/dL (4-19); BUN/Creat Ratio 22.4 RATIO (10-20); Calcium,Total 8.5 mg/dL (7.6-11.0); Carbon Dioxide 17.9 mmol/L (21.0-32.0); Chloride 111 mmol/L (98-108); Estimated Creatinine Clearance 152.72 ml/min (50-250); Globulin 2.2 g/dL (2.2-4.2); Glucose 86 mg/dL (70-99); Potassium 3.4 mmol/L (3.3-5.1)
--- NOTE | 2025-10-02 07:55 | EX.PCM.CON.S ---
Assessment & Plan Assessment/Plan (1) Acute gallstone pancreatitis: PLAN: The patient had mildly elevated lipase yesterday. Her LFTs are more increased today. She will likely need ERCP. GI is on consult. If ERCP is performed and a stent is placed I will do her cholecystectomy as an outpatient. I discussed this with her and she is very agreeable. Ashwin Knowles MD Pager: [facility] [address] [place] [address] [address] [place], [address] [place] [address] Office: HPI Consult Data Date of Consult: 10/02/25 HPI Narrative HPI Narrative: PRADEEP CROWE, is a 45 F who presents with abdominal pain. The patient reports this morning that her pain is improved and she denies any nausea or vomiting overnight. She had LFTs done yesterday as an outpatient that showed some mild elevation so she was sent to the emergency room. [facility] Medical History Hypertension Wears glasses Depression Anxiety Bipolar disorder Arthritis Restless legs Former smoker Impingement of left shoulder Left rotator cuff tear Left shoulder pain Home Medications ?Medication ?Instructions ?Recorded ?Last Taken ?Type lamotrigine 200 mg tablet 100 mg PO QHS mood disorder 12/20/19 09/30/25 21:00 History 200 mg losartan 25 mg tablet 25 mg PO DAILY blood pressure 12/20/19 10/01/25 08:30 History valbenazine 80 mg capsule 80 mg PO DAILY GEODONE SE 12/20/19 09/30/25 21:00 History trazodone 100 mg tablet 100 - 300 mg PO QHS PRN sleep 05/22/25 09/30/25 22:00 History benztropine 2 mg tablet 2 mg PO 4X/DAY side effects 05/29/25 10/01/25 08:30 History spironolactone 25 mg tablet 50 mg PO BID diuretic 05/29/25 10/01/25 08:30 History meloxicam 15 mg tablet 15 mg PO PRN pain 06/24/25 Unknown History pregabalin 150 mg capsule 150 mg PO TID nerve pain 10/01/25 10/01/25 08:30 History topiramate 200 mg tablet 400 mg PO QHS mood disorder 10/01/25 09/30/25 21:00 History ziprasidone HCl 20 mg capsule 20 mg PO DAILY antipsychotic 10/01/25 10/01/25 08:30 History ziprasidone HCl 60 mg capsule 120 mg PO QHS sleep 10/01/25 09/30/25 21:00 History Allergy/AdvReac Type Severity Reaction Status Date / Time Penicillins (PCN) Allergy Anaphylaxis Verified 10/01/25 17:20 amoxicillin AdvReac Anaphylaxis Verified 10/01/25 17:20 Family History (Updated 10/01/25 @ 20:[address] Kvng Simpson DO) Other Diabetes Surgical History History of wisdom tooth extraction History of tonsillectomy Social History Smoking Status: Former smoker Physical Exam Const alert and oriented x3 HEENT normocephalic Eyes PERRL Resp normal respiratory effort Cardio Rate: regular rate Rhythm: regular rhythm GI soft to palpation Palpation: tender Positive for epigastric Extremity normal to inspection Lab / Micro Data 10/02/25 05:58 10/02/25 05:58 Labs: Laboratory Results - last 24 hr 10/01/25 18:00: WBC 6.2, RBC 4.39, Hgb 13.7, Hct 41.3, MCV 94.1, MCH 31.2, MCHC 33.2, RDW Std Deviation 44.2 H, RDW Coeff of Kushal 12.7, Plt Count 135 L, MPV 12.0, Immature Gran % (Auto) 0.300, Neut % (Auto) 74.5 H, Lymph % (Auto) 18.6 L, [place] % (Auto) 5.8, Eos % (Auto) 0.5, Baso % (Auto) 0.3, Absolute Neuts (auto) 4.6, Absolute Lymphs (auto) 1.15, Nucleated RBC % 0, Sodium 139, Potassium 3.7, Chloride 106, Carbon Dioxide 17.5 L, Anion Gap 15, BUN 14, Creatinine 0.68 L, Estim Creat Clear Calc 120.09, Est GFR (MDRD) Non-Af 110, BUN/Creatinine Ratio 20.3 H, Glucose 117 H, Calcium 10.0, Lipase 204 H, Serum , Qual NEGATIVE, Urine Color Yellow, Urine Clarity Clear, Urine pH 6.5, Ur Specific [place] 1.015, Urine Protein 15 H, Urine Glucose (UA) Normal, Urine Ketones Negative, Urine Occult Blood Negative, Urine Nitrite Negative, Urine Bilirubin Negative, Urine Urobilinogen Normal, Ur Leukocyte Esterase Negative, Urine RBC 0 SEEN, Urine WBC 0 SEEN, Ur Squamous Epith Cells 0 SEEN, Amorphous Sediment 1+, Urine Bacteria 1+, Urine Mucus 0 SEEN 10/02/25 05:58: WBC 3.3 L, RBC 3.60 L, Hgb 11.2 L, Hct 34.5 L, MCV 95.8, MCH 31.1, MCHC 32.5, RDW Std Deviation 44.7 H, RDW Coeff of Kushal 12.6, Plt Count 101 L, MPV 12.1 H, Immature Gran % (Auto) 0.300, Neut % (Auto) 58.5, Lymph % (Auto) 31.2, [place] % (Auto) 8.2, Eos % (Auto) 1.2, Baso % (Auto) 0.6, Absolute Neuts (auto) 1.9 L, Absolute Lymphs (auto) 1.03, Nucleated RBC % 0, Sodium 139, Potassium 3.4, Chloride 111 H, Carbon Dioxide 17.9 L, Anion Gap 11, BUN 12, Creatinine 0.53 L, Estim Creat Clear Calc 152.72, Est GFR (MDRD) Non-Af 115, BUN/Creatinine Ratio 22.4 H, Glucose 86, Calcium 8.5, Total Bilirubin 1.74 H, AST 190 H, ALT 278 H, Alkaline Phosphatase 345 H, Total Protein 5.6 L, Albumin 3.5, Globulin 2.2, Albumin/Globulin Ratio 1.6 Imaging Radiology Impression Abdomen Ultrasound 10/01/25 21:47 IMPRESSION: Cholelithiasis, with distended gallbladder and biliary ductal dilatation. Mild pancreatic duct dilatation. Distal choledocholithiasis is suspected. Positive sonographic Yao's sign reported but otherwise equivocal exam for acute cholecystitis. MRCP and/or nuclear HIDA scan may be helpful. Reading Location: [id number]
--- NOTE | 2025-10-02 11:22 | CASEMGMT ---
Dx:gallstone pancreatitis LACE:1 6-Clicks:24 Medical record reviewed and patient evaluated for identification of discharge planning needs. Based on this review, at this time criteria are not present to indicate a need for discharge planning. Will remain available to assist with discharge planning needs as identified or requested. GI to c/s.
--- NOTE | 2025-10-02 11:59 | PN.HOSP_ITS ---
Reason for Visit Chief Complaint: abdominal pain Subjective Subjective Patient is a 45-year-old lady admitted with abdominal pain radiating to the flanks and back. Patient was found to have elevated lipase level and ultrasound did demonstrate cholelithiasis admitted to regular nursing floor for subsequent management Objective Data Objective Data Vital Signs: Vital Signs Temp Pulse Resp BP Pulse Ox O2 Del Method 97.6 F L 90 16 104/60 100 Room Air 10/02/25 11:33 10/02/25 11:33 10/02/25 11:33 10/02/25 11:33 10/02/25 11:33 10/02/25 11:33 Oxygen Delivery Method Room Air Weight: 86.5 kg Body Mass Index (BMI) 28.9 Intake & Output: Intake and Output for Last 24 Hours 09/30/25 10/01/25 10/02/25 23:59 23:59 23:59 Intake Total 1000 / 1300 2300 / 2300 Balance 1000 / 1300 2300 / 2300 Lab / Micro Data 10/02/25 05:58 10/02/25 05:58 Labs: Laboratory Results - last 24 hr 10/01/25 18:00: WBC 6.2, RBC 4.39, Hgb 13.7, Hct 41.3, MCV 94.1, MCH 31.2, MCHC 33.2, RDW Std Deviation 44.2 H, RDW Coeff of Kushal 12.7, Plt Count 135 L, MPV 12.0, Immature Gran % (Auto) 0.300, Neut % (Auto) 74.5 H, Lymph % (Auto) 18.6 L, [place] % (Auto) 5.8, Eos % (Auto) 0.5, Baso % (Auto) 0.3, Absolute Neuts (auto) 4.6, Absolute Lymphs (auto) 1.15, Nucleated RBC % 0, Sodium 139, Potassium 3.7, Chloride 106, Carbon Dioxide 17.5 L, Anion Gap 15, BUN 14, Creatinine 0.68 L, Estim Creat Clear Calc 120.09, Est GFR (MDRD) Non-Af 110, BUN/Creatinine Ratio 20.3 H, Glucose 117 H, Calcium 10.0, Lipase 204 H, Serum , Qual NEGATIVE, Urine Color Yellow, Urine Clarity Clear, Urine pH 6.5, Ur Specific [place] 1.015, Urine Protein 15 H, Urine Glucose (UA) Normal, Urine Ketones Negative, Urine Occult Blood Negative, Urine Nitrite Negative, Urine Bilirubin Negative, Urine Urobilinogen Normal, Ur Leukocyte Esterase Negative, Urine RBC 0 SEEN, Urine WBC 0 SEEN, Ur Squamous Epith Cells 0 SEEN, Amorphous Sediment 1+, Urine Bacteria 1+, Urine Mucus 0 SEEN 10/02/25 05:58: WBC 3.3 L, RBC 3.60 L, Hgb 11.2 L, Hct 34.5 L, MCV 95.8, MCH 31.1, MCHC 32.5, RDW Std Deviation 44.7 H, RDW Coeff of Kushal 12.6, Plt Count 101 L, MPV 12.1 H, Immature Gran % (Auto) 0.300, Neut % (Auto) 58.5, Lymph % (Auto) 31.2, [place] % (Auto) 8.2, Eos % (Auto) 1.2, Baso % (Auto) 0.6, Absolute Neuts (auto) 1.9 L, Absolute Lymphs (auto) 1.03, Nucleated RBC % 0, Sodium 139, Potassium 3.4, Chloride 111 H, Carbon Dioxide 17.9 L, Anion Gap 11, BUN 12, C reatinine 0.53 L, Estim Creat Clear Calc 152.72, Est GFR (MDRD) Non-Af 115, B UN/Creatinine Ratio 22.4 H, Glucose 86, Calcium 8.5, Total Bilirubin 1.74 H, AST 190 H, ALT 278 H, Alkaline Phosphatase 345 H, Total Protein 5.6 L, Albumin 3.5, Globulin 2.2, Albumin/Globulin Ratio 1.6 Radiography Diagnostic Testing: Radiology Impression Abdomen Ultrasound 10/01/25 21:47 IMPRESSION: Cholelithiasis, with distended gallbladder and biliary ductal dilatation. Mild pancreatic duct dilatation. Distal choledocholithiasis is suspected. Positive sonographic Yao's sign reported but otherwise equivocal exam for acute cholecystitis. MRCP and/or nuclear HIDA scan may be helpful. Reading Location: [facility] Physical Exam Narrative GENERAL: cooperative HEENT: Atraumatic; normocephalic EYES; Anicteric, Normal Conjunctiva NECK; supple, normal thyroid, RESPIRATORY: Diminished to auscultation CARDIOVASCULAR: Regular S1 S2, GI: soft, normoactive bowel sounds, epigastric discomfort : No Renal angle tenderness; EXTREMITIES: No edema, no clubbing, MUSCULOSKELETAL: no muscle wasting NEURO: Awake; no lateralizing signs. SKIN: No Rash PSYCH; Flat affect Assessment & Plan Assessment/Plan (1) Acute gallstone pancreatitis: PLAN: Patient is a 45-year-old lady admitted with abdominal pain radiating to the flanks and back. Patient was found to have elevated lipase level and ultrasound did demonstrate cholelithiasis admitted to regular nursing floor for subsequent management 1. Gallstone pancreatitis ? As part of patient management gallbladder ultrasound was ordered which did show Cholelithiasis, with distended gallbladder and biliary ductal dilatation. Mild pancreatic duct dilatation. Distal choledocholithiasis is suspected. Positive sonographic Yao's sign reported but otherwise equivocal exam for acute cholecystitis..Patient admitted to regular nursing floor symptom management with IV fluids and type nausea medication pain meds initiated. Consult placed with both GI as well as general surgery 2. Acute transaminitis ? Secondary to cholelithiasis consult has been placed to GI. Gallbladder ultrasound obtained on admission results are as above. Repeated LFTs 3. Hypertension ? Blood pressure controlled, home medications continued with dose adjustment as needed 4. Bipolar disorder ? Continue patient medications including valbenazine, trazodone as well as lamotrigine in addition to benztropine 5. Anemia ? Secondary to chronic disorder monitoring H&H and transfuse if patient becomes symptomatic or hemoglobin falls below 7 6. DVT prophylaxis ? Subcu enoxaparin Time spent in the patient's overall evaluation,decision-making process, review of diagnostic data, adjustment of management, discussion with other providers, nursing nursing and ancillary staff involved in patient's care documentation, 40 Minutes Charges/Coding Visit Charges Inpatient E&M: 44014 Subs Hosp L2
[2025-10-02] MEDS: VALBENAZINE TOSYLATE 80 MG CAPSULE PO (13:36)
[2025-10-03] VITALS (21 sets, daily range): BP systolic 83–121; BP diastolic 48–92; PULSE 37–72; RESP 12–24; TEMP 36.2–36.6; O2SAT 10–100; BMI 29.8
--- NOTE | 2025-10-03 02:12 | EKG12_ITS ---
Test Reason : PRE OP Blood Pressure : */* mmHG Vent. Rate : 36 BPM Atrial Rate : 36 BPM P-R Int : 168 ms QRS Dur : 102 ms QT Int : 510 ms P-R-T Axes : 29 31 53 degrees QTcB Int : 394 ms Marked sinus bradycardia Low voltage QRS Abnormal ECG When compared with ECG of 20-Jun-2007 16:13, Vent. rate has decreased by 84 bpm Nonspecific T wave abnormality now evident in Lateral leads Confirmed by DARBY URIBE, SALEEM ([id number]), editor city SURI BOND ([id number]) on 10/03/2025 11:38:02 AM Referred By: DOE Confirmed By: SALEEM PASTOR MD
[2025-10-03 04:45] LABS: Hematocrit 33.6 % (37-47); Hemoglobin 10.9 g/dL (12.0-15.0); Immature Granulocytes Count 0.010 X10^3/uL (0.0-0.0); Mean Corp Hgb Conc 32.4 g/dL (32-36); Mean Corpuscular Volume 96.6 fL (81-99); Mean Platelet Vol. 11.9 fl (6.2-12.0); NRBC Flagged by Analyzer 0 % (0-5); POSITIVE COUNT YES; Platelet Count 95 K/mm3 (150-450); RBC Distribution Width CV 13.2 % (11.6-14.6); RBC Distribution Width SD 46.9 fl (35.1-43.9); Red Blood Count 3.48 M/mm3 (4.2-5.4); White Blood Count 2.7 K/mm3 (4.4-11.0)
[2025-10-03 05:04] LABS: AST(SGOT) 105 U/L (<=31); Alanine Aminotransfer ALT/SGPT 247 U/L (<=34); Albumin, Serum 3.4 g/dL (3.5-5.0); Alkaline Phosphatase 335 U/L (35-104); Anion Gap 9 (5-15); BUN 10 mg/dL (4-19); BUN/Creat Ratio 18.6 RATIO (10-20); Calcium,Total 8.9 mg/dL (7.6-11.0); Carbon Dioxide 18.9 mmol/L (21.0-32.0); Chloride 112 mmol/L (98-108); Estimated Creatinine Clearance 147.17 ml/min (50-250); Globulin 2.4 g/dL (2.2-4.2); Glucose 88 mg/dL (70-99); Magnesium 2.0 mg/dL (1.5-2.2); Potassium 3.6 mmol/L (3.3-5.1)
[2025-10-03 05:31] LABS: Differential Indicated SCAN CRITERIA MET
--- NOTE | 2025-10-03 06:21 | PCM.HOSP.N ---
Hospitalist Note Nurse texted me about patient being bradycardia heart rate 37/min, BP 88/44. Patient on multiple antipsychotic medications including trazodone, ziprasidone high-dose, benztropine which are potential for causing severe bradycardia. She is also on valbenazine, pregabalin Topamax and lamotrigine. Her heart rate running low 54 and dropped to 37 and blood pressure has been running low in 80s and low 90s yesterday to 88/53. As per the nurse, patient not having any symptoms of chest pain or shortness of breath but is sleeping. Twelve-lead EKG reviewed and shows marked sinus bradycardia at 36 bpm, low voltage QRS QT 510, QTc 394 ms. 1 L IV fluid bolus ordered. Atropine as needed for heart rate less than 40/min. Transfer order to ICU.
[2025-10-03] MEDS: 0.9% Normal Saline (1000mL) 1,000 ML 999 ML IV (06:26)
--- NOTE | 2025-10-03 06:41 | NURSING ---
dr garcia notified of the pts low bp and low heart rate, order for fluid bolus and transfer to icu.
--- NOTE | 2025-10-03 07:01 | PN.HOSP_ITS ---
Reason for Visit Chief Complaint: abdominal pain Subjective Subjective Patient was transferred to the ICU after she was found to be profoundly bradycardic with heart rate in the low 40s. Patient did not have any symptoms. Patient is scheduled to undergo ERCP Objective Data Objective Data Vital Signs: Vital Signs Temp Pulse Resp BP Pulse Ox O2 Del Method 97.5 F L 37 L 16 88/53 L 98 Room Air 10/03/25 05:00 10/03/25 06:29 10/03/25 05:00 10/03/25 05:00 10/03/25 05:00 10/03/25 05:00 Oxygen Delivery Method Room Air Weight: 86.5 kg Body Mass Index (BMI) 28.9 Intake & Output: Intake and Output for Last 24 Hours 10/01/25 10/02/25 10/03/25 23:59 23:59 23:59 Intake Total 1000 / 1300 2650 / 2650 Balance 1000 / 1300 2650 / 2650 Lab / Micro Data 10/03/25 04:35 10/03/25 04:35 Labs: Laboratory Results - last 24 hr 10/02/25 05:58: Sodium 139, Potassium 3.4, Chloride 111 H, Carbon Dioxide 17.9 L , Anion Gap 11, BUN 12, Creatinine 0.53 L, Estim Creat Clear Calc 152.72, Est GFR (MDRD) Non-Af 115, BUN/Creatinine Ratio 22.4 H, Glucose 86, Calcium 8.5, T otal Bilirubin 1.74 H, AST 190 H, ALT 278 H, Alkaline Phosphatase 345 H, Total Protein 5.6 L, Albumin 3.5, Globulin 2.2, Albumin/Globulin Ratio 1.6 10/03/25 04:35: WBC 2.7 L, RBC 3.48 L, Hgb 10.9 L, Hct 33.6 L, MCV 96.6, MCH 31.3, MCHC 32.4, RDW Std Deviation 46.9 H, RDW Coeff of Kushal 13.2, Plt Count 95 L , MPV 11.9, Immature Gran % (Auto) 0.400, Neut % (Auto) 44.2 L, Lymph % (Auto) 47.2 H, [place] % (Auto) 5.6, Eos % (Auto) 1.9, Baso % (Auto) 0.7, Absolute Neuts (auto) 1.2 L, Absolute Lymphs (auto) 1.27, Nucleated RBC % 0, Platelet Estimate MOD DEC, Sodium 140, Potassium 3.6, Chloride 112 H, Carbon Dioxide 18.9 L, Anion Gap 9, BUN 10, Creatinine 0.55 L, Estim Creat Clear Calc 147.17, Est GFR (MDRD) Non-Af 114, BUN/Creatinine Ratio 18.6, Glucose 88, Calcium 8.9, Phosphorus 3.3, Magnesium 2.0, Total Bilirubin 0.68, AST 105 H, ALT 247 H, Alkaline Phosphatase 335 H, Total Protein 5.9, Albumin 3.4 L, Globulin 2.4, Albumin/Globulin Ratio 1.4 Physical Exam Narrative GENERAL: cooperative HEENT: Atraumatic; normocephalic EYES; Anicteric, Normal Conjunctiva NECK; supple, normal thyroid, RESPIRATORY: Diminished to auscultation CARDIOVASCULAR: Regular S1 S2,, bradycardic GI: soft, normoactive bowel sounds, nontender : No Renal angle tenderness; EXTREMITIES: No edema, no clubbing, MUSCULOSKELETAL: no muscle wasting NEURO: Awake; no lateralizing signs. SKIN: No Rash PSYCH; Flat affect Assessment & Plan Assessment/Plan (1) Acute gallstone pancreatitis: PLAN: Patient is a 45-year-old lady admitted with abdominal pain radiating to the flanks and back. Patient was found to have elevated lipase level and ultrasound did demonstrate cholelithiasis admitted to regular nursing floor for subsequent management 1. Gallstone pancreatitis ? As part of patient management gallbladder ultrasound was ordered which did show Cholelithiasis, with distended gallbladder and biliary ductal dilatation. Mild pancreatic duct dilatation. Distal choledocholithiasis is suspected. Positive sonographic Yao's sign reported but otherwise equivocal exam for acute cholecystitis..Patient admitted to regular nursing floor symptom management with IV fluids and type nausea medication pain meds initiated. Consult placed with both GI as well as general surgery ? 10/03/2025; seen in consultation by Dr. Vasquez plan is for patient to undergo ERCP on 10/03/2025 2. Acute transaminitis ? Secondary to cholelithiasis consult has been placed to GI. Gallbladder ultrasound obtained on admission results are as above. Repeated LFTs ? 10/03/2025; patient transaminases trending down 3. Hypertension ? Blood pressure controlled, home medications continued with dose adjustment as needed 4. Bipolar disorder ? Continue patient medications including valbenazine, trazodone as well as lamotrigine in addition to benztropine 5. Anemia ? Secondary to chronic disorder monitoring H&H and transfuse if patient becomes symptomatic or hemoglobin falls below 7 6. DVT prophylaxis ? Subcu enoxaparin 7. Bradycardia ? Patient remains asymptomatic this was thought to be medication induced. Ordered 2D echo as part of her evaluation. Patient has been transferred from ICU to PCU for continuous telemonitoring Time spent in the patient's overall evaluation,decision-making process, review of diagnostic data, adjustment of management, discussion with other providers, nursing nursing and ancillary staff involved in patient's care documentation, 38 Minutes Charges/Coding Visit Charges Inpatient E&M: 40915 Subs Hosp L2
[2025-10-03 07:05] LABS: Troponin T High Sensitivity < 6 ng/L (<=14)
--- NOTE | 2025-10-03 08:34 | CON.PCM.GI_ITS ---
HPI Consult Data Date of Consult: 10/03/25 HPI Narrative Reason for Consultation: Choledocholithiasis HPI Narrative: PRADEEP CROWE, is a 45-year-old female presents to the Emergency Room (ER) with the onset of constant, gradually increasing abdominal pain starting today. * Pain Characteristics: Described as aching, like she was punched in the stomach multiple times. * Location: Mainly over the upper abdomen. * Aggravating Factor: Pain is worse with eating. She reports eating popcorn approximately 1 hour prior to arrival, after which the pain significantly worsened. * Associated Symptoms: Admits to nausea, but denies vomiting. * Review of Systems (ROS) - Pertinent Negatives: Denies diarrhea, melena, hematochezia, dysuria, frequency, or hematuria. * Pertinent History: Reports onset of menstrual period today. Recent Outpatient Workup (Today): * Primary Care Physician (PCP) Visit: Ordered lab work and imaging. * Labs (PCP): Showed elevated liver profile, increased compared to 09/16/2025 results: * Alkaline Phosphatase (Alk Phos): 356 (Increased) * Aspartate Aminotransferase (AST): 89 (Increased) * Alanine Aminotransferase (ALT): 244 (Increased) * Imaging (Outpatient RUQ US): * Findings: Cholelithiasis with Common Bile Duct (CBD) dilatation. * Calculi noted near the neck of the gallbladder and proximal cystic duct. * No definite CBD calculus noted. * CBD size: 1.3 cm at the hilum and 1.5 cm near the head of the pancreas. * No gallbladder wall thickening or pericholecystic fluid.] Imaging (Outpatient RUQ US Today): * Cholelithiasis (gallstones) present. * CBD diameter: 1.3 cm}$ (hilum) to 1.5 cm}$ (pancreatic head)rightarrow M arkedly dilated. * No features of acute cholecystitis (no wall thickening or pericholecystic fluid). * Calculi near gallbladder neck/proximal cystic duct. [facility] Medical History Hypertension Wears glasses Depression Anxiety Bipolar disorder Arthritis Restless legs Former smoker Impingement of left shoulder Left rotator cuff tear Left shoulder pain Home Medications ?Medication ?Instructions ?Recorded ?Last Taken ?Type lamotrigine 200 mg tablet 100 mg PO QHS mood disorder 12/20/19 09/30/25 21:00 History 200 mg losartan 25 mg tablet 25 mg PO DAILY blood pressur e 12/20/19 10/01/25 08:30 History valbenazine 80 mg capsule 80 mg PO DAILY GEODONE SE 09/30/25 21:00 History trazodone 100 mg tablet 100 - 300 mg PO QHS PRN slee p 05/22/25 09/30/25 22:00 History benztropine 2 mg tablet 2 mg PO 4X/DAY side effects 05/29/25 10/01/25 08:30 History spironolactone 25 mg tablet 50 mg PO BID diuretic 05/0110/01/25 08:30 History meloxicam 15 mg tablet 15 mg PO PRN pain 06/24/25 U nknown History pregabalin 150 mg capsule 150 mg PO TID nerve pain 01/2110/01/25 08:30 History topiramate 200 mg tablet 400 mg PO QHS PRN mood disor erick 10/01/25 09/30/25 21:00 History ziprasidone HCl 20 mg capsule 20 mg PO DAILY antipsych otic 10/01/25 10/01/25 08:30 History ziprasidone HCl 60 mg capsule 120 mg PO QHS sleep 01/2109/30/25 21:00 History Allergy/AdvReac Type Severity Reaction Status Date / Time Penicillins (PCN) Allergy Anaphylaxis Verified 10/01/25 17:20 amoxicillin AdvReac Anaphylaxis Verified 10/01/25 17:20 Family History Other Diabetes Surgical History History of wisdom tooth extraction History of tonsillectomy Social History Smoking Status: Former smoker ROS Constitutional Constitutional: Denies fatigue, fever(s), poor appetite, weight gain or weight loss Gastrointestinal Gastrointestinal: Denies belching, bloating, change in bowel habits, change in stool character, chewing difficulty, coffee ground emesis, constipation, cramping, diarrhea, dyspepsia, dysphagia, early satiety, excessive flatus, fecal incontinence, heartburn, hematemesis, hematochezia, hemorrhoids, loose stools, melena, nausea, odynophagia, rectal bleeding, tenesmus, vomiting or weight changes Physical Exam Const alert, oriented x3, no apparent distress and healthy appearing General Appearance: cooperative GI normal to inspection, nondistended, normoactive bowel sounds, soft to palpation, non-tender and non-distended Percussion: normal to percussion Rectal Exam: deferred Lab / Micro Data 10/03/25 04:35 10/03/25 04:35 Labs: Laboratory Results - last 24 hr 10/03/25 04:35: WBC 2.7 L, RBC 3.48 L, Hgb 10.9 L, Hct 33.6 L, MCV 96.6, MCH 31.3, MCHC 32.4, RDW Std Deviation 46.9 H, RDW Coeff of Kushal 13.2, Plt Count 95 L , MPV 11.9, Immature Gran % (Auto) 0.400, Neut % (Auto) 44.2 L, Lymph % (Auto) 47.2 H, [place] % (Auto) 5.6, Eos % (Auto) 1.9, Baso % (Auto) 0.7, Absolute Neuts (auto) 1.2 L, Absolute Lymphs (auto) 1.27, Nucleated RBC % 0, Platelet Estimate MOD DEC, Sodium 140, Potassium 3.6, Chloride 112 H, Carbon Dioxide 18.9 L, Anion Gap 9, BUN 10, Creatinine 0.55 L, Estim Creat Clear Calc 147.17, Est GFR (MDRD) Non-Af 114, BUN/Creatinine Ratio 18.6, Glucose 88, Calcium 8.9, Phosphorus 3.3, Magnesium 2.0, Total Bilirubin 0.68, AST 105 H, ALT 247 H, Alkaline Phosphatase 335 H, Total Protein 5.9, Albumin 3.4 L, Globulin 2.4, Albumin/Globulin Ratio 1.4 10/03/25 06:37: Troponin T High Sens < 6 Assessment & Plan Assessment/Plan (1) Cholelithiasis: (2) Acute gallstone pancreatitis: (3) Choledocholithiasis: PLAN: Problem: Acute onset of upper abdominal pain with new liver enzyme elevations and imaging evidence of cholelithiasis and significant Common Bile Duct dilatation. Diagnosis: * Choledocholithiasis (presumed): Based on the presence of cholelithiasis, markedly dilated CBD 1.5cm, and obstructive pattern of liver enzyme elevation (high Alk Phos, AST/ALT elevation). Pain worsened after eating. Although no definite CBD stone was seen on ultrasound, the degree of dilatation strongly suggests obstruction, likely transient or secondary to passage of a stone. * Biliary Colic/Biliary Obstruction: Severe, episodic abdominal pain associated with gallbladder contraction (worse after eating popcorn) against a stone obstructing the cystic duct or common bile duct. Plan Consultation: * I was consulted for therapeutic Endoscopic Retrograde Cholangiopancreatography (ERCP). Diagnostics/Monitoring: * Continue to monitor serial Liver Profile (LFTs) and Lipase/Amylase to rule out gallstone pancreatitis. * Consider obtaining a Computed Tomography (CT) scan of the abdomen if the diagnosis remains uncertain or if suspicion for other causes (pancreatitis, perforated ulcer) is high. Therapeutics: * NPO (Nothing by Mouth) status in preparation for potential ERCP. * IV Fluids (e.g., Normal Saline or Lactated Ringer's) to maintain hydration. * Pain Management (e.g., NSAIDs or narcotics as appropriate). * Anti-emetics for nausea (e.g., Ondansetron). Charges/Coding Visit Charges Inpatient E&M: 66464 Init Hosp L3
--- NOTE | 2025-10-03 10:30 | NURSING ---
Patient left unit to for ERCP
--- NOTE | 2025-10-03 10:42 | CASEMGMT ---
HERMINIA TRENT Assessment Face to Face with patient for initial transition planning/care coordination assessment due to pt's previous Critical Care status. HERMINIA TRENT introduced self and role at [facility], pt voices understanding. Pt is A&Ox4 and is resting comfortably in bed and is calm. Care providers, pharmacy, and demographics verified. Admitting dx: Pancreatitis LACE Strata: 2 PCP:Torres Moore Specialists: Therese (Ortho), Michael (Cardio), Psychiatry at the [facility] Preferred Pharmacy: [facility] Insurance: Gr[employer]PAY A/B, HUGO/FreeLunched Prescription Benefit: Yes LNOK: Zoila Quiroz (M) Living Arrangements: Pt lives with her mother in a 2 story home with 2 steps to enter ADLs/IADLs: Indep., 6-Click score is 24 Transportation: Pt states that she does not have a vehicle now but her mom is able to drive her DME: [employer]. Smart watch to track her HR. Denies further needs HHC/SNF: denies hx or needs Pt?s goal: Home with pt's mother Plan: Home. Follow up with Dr Knowles as an OP for a Lap Rosita. ERCP today. Pt states that she feels safe returning home with her mom once medically ready and denies any DC needs or concerns. Nadeem Benavides RN, CM
[2025-10-03] MEDS: Lactated Ringers 1,000 ML 15 ML IV (10:58)
--- NOTE | 2025-10-03 11:19 | PCM.PRE.AN2 ---
ASA Classification* ASA Classification ASA Classification: 2 Assessment & Plan Anesthesia* Anesthesia Assessment Anesthesia Assessment: Discussed sedation and/or anesthesia options, risks, benefits, and alternatives with patient/parents/legal guardian/POA. Questions invited. The patient/parents/legal guardian/POA seems to understand and agrees to proceed with anesthesia plan. Reviewed the physical assessment, medical history, allergy history and patient home medications list prior to surgery/procedure/anesthetic and documented any changes. Performed airway and anesthesia risk assessments. Anesthesia Type Anesthesia Type: General Anesthesia Focused Assessment* Temperature: 97.7 F Pulse Rate: 44 Blood Pressure: 121/66 Respiratory Rate: 24 Pulse Ox: 100 Airway Assessment Mouth opens: >3 cm Mallampati Score: II Labs Anesthesia Preop lab: CBC WBC, (4.4-11.0) 2.7 K/mm3 L Today, 04:35 RBC, (4.2-5.4) 3.48 M/mm3 L Today, 04:35 Hgb, (12.0-15.0) 10.9 g/dL L Today, 04:35 Hct, (37-47) 33.6 % L Today, 04:35 Plt Count, (150-450) 95 K/mm3 L Today, 04:35 CHEMISTRY Potassium, (3.3-5.1) 3.6 mmol/L Today, 04:35 Sodium, (133-145) 140 mmol/L Today, 04:35 Magnesium, (1.5-2.2) 2.0 mg/dL Today, 04:35 Phosphorus, (2.7-4.5) 3.3 mg/dL Today, 04:35 BUN, (4-19) 10 mg/dL Today, 04:35 Creatinine, (0.70-1.20) 0.55 mg/dL L Today, 04:35 Glucose, (70-99) 88 mg/dL Today, 04:35 POC Glucose, (70-110) 108 mg/dL 12/23/19, 11:52 COAG Urine Test Negative Negative 06/11/25, 05:35 Pre-Assessment Diagnosis/Proposed Procedure Planned Operative Procedure(s): ERCP Anesthesia History Anesthesia History - family service assistant: Anesthesia History - family service assistant Hx Hospitalization No 05/29/25 15:27 Any Problems With Anesthesia No 10/03/25 04:49 Cholinesterase deficiency No 10/03/25 04:49 You/Your Family Experience No 10/03/25 04:49 fever (hyperthermia) with Relationship Recent Exposure to Contagious No 10/03/25 04:49 Disease Does patient have nerve No 10/03/25 04:49 stimulator Patient instructed to have No 10/03/25 04:49 device shut off --Does patient have Pacemaker or ICD? When Was Last Pacemaker Check QUESTION #4 FULL TEXT: You/Your Family Experience fever (hyperthermia) with Anesthesia Last Oral Intake Last Oral intake: Last Oral Intake NPO since Meds taken in AM with sips of water? Meds patient instructed to take am of surgery PONV PONV - family service assistant: PONV - family service assistant Female HX of Motion Sickness HX of N/V After Surgery Non-Smoker Duration of Surgery greater than 60 minutes Number of Risk Factors PONV Score Height & Weight Height & Weight: Anesthesia: Height & Weight Height 5 ft 8 in 10/03/25 10:15 Weight: 89 kg 10/03/25 10:15 Body Mass Index (BMI) 29.8 10/03/25 07:08 Respiratory Assessment Respiratory Assessment - family service assistant: Respiratory Tract Infection Hx - family service assistant Hx Respiratory Tract Infection No 10/03/25 04:49 STOP Sleep Apnea STOP Sleep Apnea - family service assistant: STOP Sleep Apnea - family service assistant Hx Hypertension Yes 10/03/25 07:08 Hx Sleep Apnea No 10/03/25 07:08 CPAP Yes 10/03/25 07:08 BIPAP No 10/03/25 07:08 Do you snore loudly (louder No 10/03/25 07:08 than talking or can be heard Do you often feel tired/ No 10/03/25 07:08 fatigued/ sleepy during daytime? Has anyone observed you stop No 10/03/25 07:08 breathing during sleep? STOP Results Negative 10/03/25 07:08 QUESTION #5 FULL TEXT : Do you snore loudly (louder than talking or can be heard through closed doors)? Tobacco Use History Tobacco Use History - family service assistant: Tobacco Use History - family service assistant Tobacco Use Smoking Status Former smoker 10/03/25 07:08 Hx Tobacco Use No 10/03/25 07:08 Years Smoking Packs Smoked per Day Smoking Cessation Date was No - quit smoking greater 10/03/25 07:08 within the last 15 years than 15 years ago Hx Smoking Cessation Date 10/30/09 10/03/25 07:08 Hx Smoking Cessation Counseling Hematologic Medial History Hematologic Hx - family service assistant: Hematologic Medical Hx - sr. manager Hx of Blood Transfusion No 10/03/25 07:08 Hx of Transfusion in last 3 No 10/03/25 07:08 Months Date of Last Transfusion (if within last 3 months) Ever experience any problems No 10/03/25 07:08 with transfusion(s)? Specify any problems Hx of Preganancy in last 3 No 10/03/25 07:08 Months Nurse Filling Out Transfusion MPHILLIPS 10/03/25 07:08 & Questions: Date: 10/03/25 10/03/25 07:08 Time: 07:12 10/03/25 07:08 Patient unable to answer at this time (ie. confused, unrespo /Reproduction History /Reproductive History - family service assistant: /Reproductive Hx- family service assistant Hx Now No 10/03/25 07:08 Gestational Age (in weeks): EDC: Hx Hx Para Hx Section SAB No 10/03/25 07:08 Does the father of the baby or his family experience fever w Father of the baby Malignant Hypertension history comment Active Medications Active Medications: Current Medications Generic Name Dose Route Start Last Admin Trade Name Freq PRN Reason Stop Dose Admin Acetaminophen 1,000 mg 10/01/25 22:00 10/03/25 06:14 Acetaminophen 500 Mg Tablet PO Not Given Q8 BURTON Benztropine Mesylate 2 mg 10/01/25 22:00 10/02/25 23:29 Benztropine 2 Mg Tablet PO 2 mg 4X/DAY BURTON Administration Enoxaparin Sodium 40 mg 10/02/25 10:00 10/02/25 10:12 Enoxaparin 40 Mg/0.4 Ml Syringe SC Not Given DAILY BURTON Hydromorphone HCl 0.2 mg 10/01/25 21:47 10/02/25 11:23 Hydromorphone Inj 0.2 Mg/Ml Syringe IV 0.2 mg Q3H PRN PRN Administration Pain Score 6-10 Sodium Chloride 250 mls @ 15 mls/hr 10/01/25 21:49 IV .[id number] PRN Saline Flush Sodium Chloride 250 mls @ 15 mls/hr 10/01/25 21:49 IV .[id number] PRN Additional IVPB Infusion Sodium Chloride 250 mls @ 15 mls/hr 10/03/25 07:15 IV .[id number] PRN Saline Flush Sodium Chloride 250 mls @ 15 mls/hr 10/03/25 07:15 IV .[id number] PRN Additional IVPB Infusion Lactated Ringer's 1,000 mls @ 15 mls/hr 10/03/25 11:00 10/03/25 10:58 IV 15 mls/hr .Q48H BURTON Administration Ketorolac Tromethamine 15 mg 10/01/25 21:47 10/02/25 23:36 Ketorolac 15 Mg/Ml Vial IV 10/06/25 21:47 15 mg Q6H PRN PRN Administration Pain Score 1-10 Lamotrigine 100 mg 10/02/25 10:00 10/02/25 10:08 Lamotrigine 100 Mg Tablet PO 100 mg DAILY BURTON Administration Oxycodone HCl 5 mg 10/01/25 21:47 10/02/25 23:36 Oxycodone 5 Mg Tablet PO 5 mg Q4H PRN PRN Administration Pain Score 4-10 Pregabalin 150 mg 10/01/25 22:00 10/03/25 06:14 Pregabalin 75 Mg Capsule PO Not Given TID BURTON Sodium Chloride 10 - 40 ml 10/01/25 21:49 0.9% Saline Lock 10 Ml Syringe IV UD PRN SALINE FLUSH Sodium Chloride 10 - 40 ml 10/03/25 07:15 0.9% Saline Lock 10 Ml Syringe IV UD PRN SALINE FLUSH Tizanidine HCl 4 mg 10/01/25 22:00 10/03/25 06:14 Tizanidine Hcl 2 Mg Tablet PO Not Given TID BURTON Topiramate 200 mg 10/01/25 22:00 10/02/25 23:30 Topiramate 200 Mg Tablet PO 200 mg BID BURTON Administration PFSH Medical History Hypertension Wears glasses Depression Anxiety Bipolar disorder Arthritis Restless legs Former smoker Impingement of left shoulder Left rotator cuff tear Left shoulder pain Home Medications ?Medication ?Instructions ?Recorded ?Last Taken ?Type lamotrigine 200 mg tablet 100 mg PO QHS mood disorder 12/20/19 09/30/25 21:00 History 200 mg losartan 25 mg tablet 25 mg PO DAILY blood pressure 12/20/19 10/01/25 08:30 History valbenazine 80 mg capsule 80 mg PO DAILY GEODONE SE 12/20/19 09/30/25 21:00 History trazodone 100 mg tablet 100 - 300 mg PO QHS PRN sleep 05/22/25 09/30/25 22:00 History benztropine 2 mg tablet 2 mg PO 4X/DAY side effects 05/29/25 10/01/25 08:30 History spironolactone 25 mg tablet 50 mg PO BID diuretic 05/29/25 10/01/25 08:30 History meloxicam 15 mg tablet 15 mg PO PRN pain 06/24/25 Unknown History pregabalin 150 mg capsule 150 mg PO TID nerve pain 10/01/25 10/01/25 08:30 History topiramate 200 mg tablet 400 mg PO QHS PRN mood disorder 10/01/25 09/30/25 21:00 History ziprasidone HCl 20 mg capsule 20 mg PO DAILY antipsychotic 10/01/25 10/01/25 08:30 History ziprasidone HCl 60 mg capsule 120 mg PO QHS sleep 10/01/25 09/30/25 21:00 History Allergy/AdvReac Type Severity Reaction Status Date / Time Penicillins (PCN) Allergy Anaphylaxis Verified 10/01/25 17:20 amoxicillin AdvReac Anaphylaxis Verified 10/01/25 17:20 Family History Other Diabetes Surgical History History of wisdom tooth extraction History of tonsillectomy Social History Smoking Status: Former smoker Review of Systems (Anesthesia) ROS Narrative System reviewed and no additional complaints, except as documented.
[2025-10-03] MEDS: Lactated Ringers 500 ML IV (12:13)
[2025-10-03] MEDS: fentaNYL 100 MCG/2 ML Ampul IV (12:18)
--- NOTE | 2025-10-03 12:30 | RAD_ITS ---
PROCEDURE: ERCP BILIARY/PANCREAS 10/03/2025 REASON FOR EXAM: ERCP TECHNIQUE: Procedure Code: RADERCP Modality: DX Procedure: ERCP BILIARY/PANCREAS. Intraoperative fluoroscopic services provided for ERCP. 1 minute and 20 seconds of fluoroscopy. 23.73 mGy of radiation dose. COMPARISON: None FINDINGS: Intraoperative fluoroscopic services provided for ERCP. Biliary stent was placed. RAD/ERCP Biliary/Pancreas IMPRESSION: Intraoperative fluoroscopic services provided for ERCP. Biliary stent was placed. Reading Location: [place] [address]
--- NOTE | 2025-10-03 13:08 | PCM.POST.ANE ---
Anesthesia: Postop Eval I Current Vital Signs Temperature: 97.4 F Pulse Rate: 68 Blood Pressure: 83/59 Respiratory Rate: 14 Pulse Ox: 96 Oxygen Delivery Method: Room Air Assessment Airway patent: Yes Spontaneous unlabored respirations: Yes Mental status: Awake and Calm nausea: No Vomiting: No Anesthesia Complication: No Fluid Hydration Crystalloid volume administer (ml): 700 Total IV fluid infused: 700 Progress Note Anesthesia document: Postop Eval 1 completed: Yes
--- NOTE | 2025-10-03 13:52 | POSTOPAN2_ITS ---
Anesthesia Postop Eval I Sum Postop Eval Completion status Anesthesia document: Postop Eval 1 completed: Yes Anesthesia Postop Eval I Summary Anesthesia Postop Eval I Summary: Anesthesia Postop Eval I: Assessment Summary Airway patent Yes 10/03/25 13:09 [email or web address] Spontaneous unlabored Yes 10/03/25 13:09 [email or web address] respirations Mental status Awake,Calm 10/03/25 13:09 [email or web address] nausea No 10/03/25 13:09 [email or web address] Vomiting No 10/03/25 13:09 [email or web address] Anesthesia Postop Eval I: Fluid Summary Crystalloid volume administer 700 10/03/25 13:09 [email or web address] (ml) Colloids volume administered ( ml) Blood Product volume administered (ml) Total IV fluid infused 700 10/03/25 13:09 [email or web address] Anesthesia Postop Eval I: Summary Notes Anesthesia Complication No 10/03/25 13:09 [email or web address] Anesthesia Complication Comment: Post-operative progress note Anesthesia: Postop Eval II Evaluation Mental status: Awake Pain Level: 1 nausea: No Vomiting: No
--- NOTE | 2025-10-03 13:52 | PCM.POSTANE2 ---
Anesthesia Postop Eval I Sum Postop Eval Completion status Anesthesia document: Postop Eval 1 completed: Yes Anesthesia Postop Eval I Summary Anesthesia Postop Eval I Summary: Anesthesia Postop Eval I: Assessment Summary Airway patent Yes 10/03/25 13:09 [email or web address] Spontaneous unlabored Yes 10/03/25 13:09 [email or web address] respirations Mental status Awake,Calm 10/03/25 13:09 [email or web address] nausea No 10/03/25 13:09 [email or web address] Vomiting No 10/03/25 13:09 [email or web address] Anesthesia Postop Eval I: Fluid Summary Crystalloid volume administer 700 10/03/25 13:09 [email or web address] (ml) Colloids volume administered ( ml) Blood Product volume administered (ml) Total IV fluid infused 700 10/03/25 13:09 [email or web address] Anesthesia Postop Eval I: Summary Notes Anesthesia Complication No 10/03/25 13:09 [email or web address] Anesthesia Complication Comment: Post-operative progress note Anesthesia: Postop Eval II Evaluation Mental status: Awake Pain Level: 1 nausea: No Vomiting: No
[2025-10-03] MEDS: Lactated Ringers 1,000 ML 250 ML IV ×2 (14:24→18:38)
--- NOTE | 2025-10-03 17:26 | OP.ERCP_ITS ---
Patient Name: Sheila Quiroz Procedure Date: 10/03/2025 12:06 PM Date of : 1980 Age: 45 Procedure: ERCP Indications: Bile duct stone(s) Providers: Sadiq Vasquez DO Medicines: Monitored Anesthesia Care Patient Profile: This is a 45 year old female. Refer to note in patient chart for documentation of history and physical. Patient has symptoms of acute right upper quadrant abdominal pain and acute jaundice. This patient has no history of previous ERCP. This patient has no history of surgical alteration of the upper digestive tract anatomy. Complications: No immediate complications. Procedure: Pre-Anesthesia Assessment: - Prior to the procedure, a History and Physical was performed, and patient medications and allergies were reviewed. The patient is competent. The risks and benefits of the procedure and the sedation options and risks were discussed with the patient. All questions were answered and informed consent was obtained. Patient identification and proposed procedure were verified by the physician in the pre-procedure area. Mental Status Examination: alert and oriented. Airway Examination: normal oropharyngeal airway and neck mobility. Respiratory Examination: clear to auscultation. CV Examination: normal. Prophylactic Antibiotics: The patient requires prophylactic antibiotics for the planned ERCP in an obstructed bile duct. The patient received antibiotic therapy before the procedure. Prior Anticoagulants: The patient has taken no anticoagulant or antiplatelet agents. ASA Grade Assessment: II - A patient with mild systemic disease. After reviewing the risks and benefits, the patient was deemed in satisfactory condition to undergo the procedure. The anesthesia plan was to use monitored anesthesia care (MAC). Immediately prior to administration of medications, the patient was re-assessed for adequacy to receive sedatives. The heart rate, respiratory rate, oxygen saturations, blood pressure, adequacy of pulmonary ventilation, and response to care were monitored throughout the procedure. The physical status of the patient was re-assessed after the procedure. After obtaining informed consent, the scope was passed under direct vision. Throughout the procedure, the patient's blood pressure, pulse, and oxygen saturations were monitored continuously. The Duodenoscope was introduced through the mouth, and advanced to the duodenum and used to inject contrast into the bile duct. The procedure was determined to be ASGE Complexity Level 4. Scope In: 12:33:44 PM Scope Out: 12:45:31 PM Total Procedure Duration Time 0 hours 11 minutes 47 seconds Findings: The replenishment buyer film was normal. The esophagus was successfully intubated under direct vision. The scope was advanced to a normal major papilla in the descending duodenum without detailed examination of the pharynx, larynx and associated structures, and upper GI tract. The upper GI tract was grossly normal. A long 0.025 inch Jagwire was passed into the biliary tree. The short-nosed traction sphincterotome was passed over the guidewire and the bile duct was then deeply cannulated. Contrast was injected. I personally interpreted the bile duct images. There was brisk flow of contrast through the ducts. Image quality was adequate. Contrast extended to the entire biliary tree. Opacification of the entire biliary tree except for the cystic duct and gallbladder, entire opacified area, main bile duct, common bile duct, common hepatic duct, hepatic duct bifurcation, left and right hepatic ducts and all intrahepatic branches and entire biliary tree was successful. The maximum diameter of the ducts was 10 mm. The lower third of the main bile duct contained multiple stones, the largest of which was 6 mm in diameter. The main bile duct was diffusely dilated, with a stone causing an obstruction. The largest diameter was 13 mm. A 5 mm biliary sphincterotomy was made with a traction (standard) sphincterotome using ERBE electrocautery. There was no post-sphincterotomy bleeding. The biliary tree was swept with a 12 mm balloon starting at the upper third of the main bile duct, middle third of the main bile duct, lower third of the main duct, bifurcation, right intrahepatic duct(s) and right main hepatic duct. Sludge was swept from the duct. Many stones were removed. No stones remained. One 10 Fr by 5 cm temporary stent with a single external flap was placed 5 cm into the common bile duct. Bile flowed through the stent. The stent was in good position. Impression: - The entire main bile duct was dilated, with a stone causing an obstruction. - Choledocholithiasis was found. Complete removal was accomplished by biliary sphincterotomy and balloon extraction. - A biliary sphincterotomy was performed. - The biliary tree was swept. - One temporary stent was placed into the common bile duct. Procedure Code(s): --- Professional --- 47400, Endoscopic retrograde cholangiopancreatography (ERCP); with placement of endoscopic stent into biliary or pancreatic duct, including pre- and post-dilation and guide wire passage, when performed, including sphincterotomy, when performed, each stent [id number], Endoscopic retrograde cholangiopancreatography (ERCP); with removal of calculi/debris from biliary/pancreatic duct(s) 15306, 26, Endoscopic catheterization of the biliary ductal system, radiological supervision and interpretation CPT copyright 2021 [employer]. All rights reserved. The codes documented in this report are preliminary and upon accounts payable manager review may be revised to meet current compliance requirements. Sadiq Vasquez DO 10/03/2025 5:26:35 PM This report has been signed electronically. Number of Addenda: 0 Note Initiated On: 10/03/2025 12:06 PM
--- NOTE | 2025-10-03 17:27 | OP.PROVAT_ITS ---
10/03/2025 Torres Moore Re : ERCP procedure for Sheila Hicksr Teresa This procedure was performed on Friday, October 03, 2025. My impressions and recommendations are as follows: Impressions : - The entire main bile duct was dilated, with a stone causing an obstruction. - Choledocholithiasis was found. Complete removal was accomplished by biliary sphincterotomy and balloon extraction. - A biliary sphincterotomy was performed. - The biliary tree was swept. - One temporary stent was placed into the common bile duct. Recommendations : My findings are described in the full procedure note, which is enclosed. If I can be of further assistance, please feel free to contact me at . Sincerely, Sadiq Vasquez, 10/03/2025 5:26:35 PM This report has been signed electronically.
[2025-10-03] MEDS: 0.9% Saline Lock 10 ML Syringe IV (23:22)
--- NOTE | 2025-10-03 23:47 | PN.HOSP_ITS ---
Hospitalist Note Notified of patient's heart rate dropping down into the 30s, maintaining in the low 40s; after receiving at bedtime doses of Lyrica and Toradol. No beta- marvin administration noted. Advised nrsg to keep Atropine at bedside to administer for symptomatic bradycardia. Patient is asymptomatic at this time with her heart rate in the 40s, denies feeling lightheaded, dizzy, nauseous, sweaty, or syncopal. She states, I just feel really relaxed. Consult placed for cardiology to review. Echo previously ordered.
[2025-10-04 02:30] VITALS: BP 128/70; PULSE 40; RESP 16; TEMP 36.6; O2SAT 100
[2025-10-04 03:36] VITALS: PULSE 41
[2025-10-04 03:38] VITALS: BMI 30.3
[2025-10-04 04:30] VITALS: BP 121/76; PULSE 40; RESP 16; TEMP 36.6; O2SAT 98
[2025-10-04] MEDS: Lactated Ringers 1,000 ML 250 ML IV (05:15)
[2025-10-04 05:48] VITALS: BP 127/68; PULSE 41; RESP 16; TEMP 36.4; O2SAT 97
[2025-10-04 06:04] LABS: Hematocrit 34.9 % (37-47); Hemoglobin 11.5 g/dL (12.0-15.0); Immature Granulocytes Count 0.010 X10^3/uL (0.0-0.0); Mean Corp Hgb Conc 33.0 g/dL (32-36); Mean Corpuscular Volume 94.1 fL (81-99); Mean Platelet Vol. 12.1 fl (6.2-12.0); NRBC Flagged by Analyzer 0 % (0-5); Platelet Count 115 K/mm3 (150-450); RBC Distribution Width CV 12.7 % (11.6-14.6); RBC Distribution Width SD 43.8 fl (35.1-43.9); Red Blood Count 3.71 M/mm3 (4.2-5.4); White Blood Count 4.4 K/mm3 (4.4-11.0)
[2025-10-04 06:41] LABS: AST(SGOT) 63 U/L (<=31); Alanine Aminotransfer ALT/SGPT 200 U/L (<=34); Albumin, Serum 3.5 g/dL (3.5-5.0); Alkaline Phosphatase 320 U/L (35-104); Anion Gap 11 (5-15); BUN 9 mg/dL (4-19); BUN/Creat Ratio 15.1 RATIO (10-20); Calcium,Total 9.0 mg/dL (7.6-11.0); Carbon Dioxide 18.5 mmol/L (21.0-32.0); Chloride 110 mmol/L (98-108); Estimated Creatinine Clearance 138.01 ml/min (50-250); Globulin 2.3 g/dL (2.2-4.2); Glucose 87 mg/dL (70-99); Potassium 3.5 mmol/L (3.3-5.1)
--- NOTE | 2025-10-04 08:37 | EKG12_ITS ---
Test Reason : ARRYTH Blood Pressure : */* mmHG Vent. Rate : 41 BPM Atrial Rate : 41 BPM P-R Int : 166 ms QRS Dur : 96 ms QT Int : 454 ms P-R-T Axes : 78 31 44 degrees QTcB Int : 374 ms Marked sinus bradycardia Abnormal ECG Confirmed by José Manuel Pierre ([id number]), desk editor MARCELLA ALMAGUER ([id number]) on 10/07/2025 8:43:15 AM Referred By: Confirmed By: José Manuel Pierre
--- NOTE | 2025-10-04 08:37 | PCM.CONS.C ---
Assessment & Plan Assessment/Plan (1) Bradycardia: PLAN: She does have some asymptomatic bradycardia at this particular time. It appears to be predominantly sinus and my recommendation at this time would be to continue with medical therapy with watchful waiting. (2) Hypertension: PLAN: Her blood pressure appears to be under good control the plan be to continue her on the DEANDRE inhibitor ARB and the diuretic. She will follow-up as an outpatient. HPI Consult Data Date of Consult: 10/04/25 HPI Narrative HPI Narrative: PRADEEP CROWE, is a 45 F who presents with abdominal discomfort was noted to have gallstone pancreatitis and was being treated by internal medicine and GI service. Postprocedure patient was noted to be bradycardic but asymptomatic and cardiology was consulted for further evaluation and management. This morning she denies any chest pain or shortness of breath or paroxysmal nocturnal dyspnea she is not on any cardiac rate determining or rate limiting steps. Her telemetry strips this morning demonstrates sinus bradycardia with rates as low as 35. However when she moves around her heart rate up raises appropriately. [ ] [facility] Medical History Hypertension Wears glasses Depression Anxiety Bipolar disorder Arthritis Restless legs Former smoker Impingement of left shoulder Left rotator cuff tear Left shoulder pain Home Medications ?Medication ?Instructions ?Recorded ?Last Taken ?Type lamotrigine 200 mg tablet 100 mg PO QHS mood disorder 12/20/19 09/30/25 21:00 History 200 mg losartan 25 mg tablet 25 mg PO DAILY blood pressure 12/20/19 10/01/25 08:30 History valbenazine 80 mg capsule 80 mg PO DAILY GEODONE SE 12/20/19 09/30/25 21:00 History trazodone 100 mg tablet 100 - 300 mg PO QHS PRN sleep 05/22/25 09/30/25 22:00 History benztropine 2 mg tablet 2 mg PO 4X/DAY side effects 05/29/25 10/01/25 08:30 History spironolactone 25 mg tablet 50 mg PO BID diuretic 05/29/25 10/01/25 08:30 History meloxicam 15 mg tablet 15 mg PO PRN pain 06/24/25 Unknown History pregabalin 150 mg capsule 150 mg PO TID nerve pain 10/01/25 10/01/25 08:30 History topiramate 200 mg tablet 400 mg PO QHS PRN mood disorder 10/01/25 09/30/25 21:00 History ziprasidone HCl 20 mg capsule 20 mg PO DAILY antipsychotic 10/01/25 10/01/25 08:30 History ziprasidone HCl 60 mg capsule 120 mg PO QHS sleep 10/01/25 09/30/25 21:00 History Allergy/AdvReac Type Severity Reaction Status Date / Time Penicillins (PCN) Allergy Anaphylaxis Verified 10/01/25 17:20 amoxicillin AdvReac Anaphylaxis Verified 10/01/25 17:20 Family History Other Diabetes Surgical History History of wisdom tooth extraction History of tonsillectomy Social History Smoking Status: Former smoker ROS Constitutional Constitutional: Denies fever(s) or weight loss Eyes Eyes: Reports systems reviewed and no addt'l complaints, except as documented ENT HEENT: Reports systems reviewed and no addt'l complaints, except as documented Cardiovascular Cardiovascular: Denies chest pain at rest, chest pain with activity, dyspnea at rest, dyspnea on exertion, edema, palpitations or paroxysmal nocturnal dyspnea Respiratory/Chest Respiratory/Chest: Denies dyspnea on exertion, productive cough, shortness of breath at rest or shortness of breath with exertion Gastrointestinal Gastrointestinal: Denies change in bowel habits, nausea, vomiting or weight changes Genitourinary Genitourinary: Denies difficulty urinating Musculoskeletal Musculoskeletal: Denies joint stiffness or muscle weakness Integumentary Integumentary: Denies lesions Neurologic Neurologic: Denies dizziness or syncope Psychiatric Psychiatric: Denies anxiety Endocrine Endocrinology: Denies excessive sweating or fatigue Hematologic/Lymphatic Hematologic/Lymphatic: Denies anemia Allergic/Immunologic Allergic/Immunologic: Denies seasonal rhinorrhea Physical Exam Const alert and oriented x3 Orientation / Consciousness: awake Eyes PERRL Chest inspection of chest normal Cardio regular rate and regular rhythm GI normal to inspection, nondistended, normoactive bowel sounds Extremity no clubbing, cyanosis or edema Objective Data Vital Signs: Vital Signs Temp Pulse Resp BP Pulse Ox O2 Del Method 97.5 F L 41 L 16 127/68 H 97 Room Air 10/04/25 05:48 10/04/25 05:48 10/04/25 05:48 10/04/25 05:48 10/04/25 05:48 10/04/25 05:48 Oxygen Delivery Method Room Air Weight: 199 lb 15.348 oz Body Mass Index (BMI) 30.3 Intake & Output: Intake and Output for Last 24 Hours 10/02/25 10/03/25 10/04/25 23:59 23:59 23:59 Intake Total 2650 / 2650 3046 / 3046 Balance 2650 / 2650 3046 / 3046 Lab / Micro Data 10/04/25 05:39 10/04/25 05:39 Labs: Laboratory Results - last 24 hr 10/04/25 05:39: WBC 4.4, RBC 3.71 L, Hgb 11.5 L, Hct 34.9 L, MCV 94.1, MCH 31.0, MCHC 33.0, RDW Std Deviation 43.8, RDW Coeff of Kushal 12.7, Plt Count 115 L, MPV 12.1 H, Immature Gran % (Auto) 0.200, Neut % (Auto) 56.2, Lymph % (Auto) 37.2, [place] % (Auto) 5.5, Eos % (Auto) 0.7, Baso % (Auto) 0.2, Absolute Neuts (auto) 2.5, Absolute Lymphs (auto) 1.62, Nucleated RBC % 0, Sodium 139, Potassium 3.5, Chloride 110 H, Carbon Dioxide 18.5 L, Anion Gap 11, BUN 9, Creatinine 0.60 L, Estim Creat Clear Calc 138.01, Est GFR (MDRD) Non-Af 112, BUN/Creatinine Ratio 15.1, Glucose 87, Calcium 9.0, Total Bilirubin 0.58, AST 63 H, ALT 200 H, Alkaline Phosphatase 320 H, Total Protein 5.9, Albumin 3.5, Globulin 2.3, Albumin/Globulin Ratio 1.5 Cardiology Labs/Tests 10/04/25 05:39: WBC 4.4, RBC 3.71 L, Hgb 11.5 L, Hct 34.9 L, MCV 94.1, MCH 31.0, MCHC 33.0, Plt Count 115 L, MPV 12.1 H, Immature Gran % (Auto) 0.200, Neut % (Auto) 56.2, Lymph % (Auto) 37.2, [place] % (Auto) 5.5, Eos % (Auto) 0.7, Baso % (Auto) 0.2, Absolute Neuts (auto) 2.5, Nucleated RBC % 0, Sodium 139, Potassium 3.5, Chloride 110 H, Carbon Dioxide 18.5 L, Anion Gap 11, BUN 9, Creatinine 0.60 L, Est GFR (MDRD) Non-Af 112, BUN/Creatinine Ratio 15.1, Glucose 87, Calcium 9.0, Total Bilirubin 0.58 Rhythm: EKG: ECHO: Stress Test: Cardiac Cath: PCI: CT Surgery: Holter monitor: EPS: PPM: CXR: Chest CT Scan: Radiography Diagnostic Testing: Radiology Impression Endo Retro Cholangiopancreatogram 10/03/25 12:30 IMPRESSION: Intraoperative fluoroscopic services provided for ERCP. Biliary stent was placed. Reading Location: [facility] JESSE Risk Score for UA/STEMI Assesmment (YES = 1) Risk Stratification Applicable: No
--- NOTE | 2025-10-04 09:17 | PN.SURG_ITS ---
Subjective Subjective Patient had ERCP and she is comfortable with no abdominal pain. Objective Data Objective Data Vital Signs: Vital Signs Temp Pulse Resp BP Pulse Ox O2 Del Method 97.5 F L 41 L 16 127/68 H 97 Room Air 10/04/25 05:48 10/04/25 05:48 10/04/25 05:48 10/04/25 05:48 10/04/25 05:48 10/04/25 05:48 Oxygen Delivery Method Room Air Weight: 199 lb 15.348 oz Body Mass Index (BMI) 30.3 Intake & Output: Intake and Output for Last 24 Hours 10/02/25 10/03/25 10/04/25 23:59 23:59 23:59 Intake Total 2650 / 2650 3046 / 3046 Balance 2650 / 2650 3046 / 3046 Lab / Micro Data 10/04/25 05:39 10/04/25 05:39 Labs: Laboratory Results - last 24 hr 10/04/25 05:39: WBC 4.4, RBC 3.71 L, Hgb 11.5 L, Hct 34.9 L, MCV 94.1, MCH 31.0, MCHC 33.0, RDW Std Deviation 43.8, RDW Coeff of Kushal 12.7, Plt Count 115 L, MPV 12.1 H, Immature Gran % (Auto) 0.200, Neut % (Auto) 56.2, Lymph % (Auto) 37.2, [place] % (Auto) 5.5, Eos % (Auto) 0.7, Baso % (Auto) 0.2, Absolute Neuts (auto) 2.5, Absolute Lymphs (auto) 1.62, Nucleated RBC % 0, Sodium 139, Potassium 3.5, Chloride 110 H, Carbon Dioxide 18.5 L, Anion Gap 11, BUN 9, Creatinine 0.60 L, Estim Creat Clear Calc 138.01, Est GFR (MDRD) Non-Af 112, BUN/Creatinine Ratio 15.1, Glucose 87, Calcium 9.0, Total Bilirubin 0.58, AST 63 H, ALT 200 H, A lkaline Phosphatase 320 H, Total Protein 5.9, Albumin 3.5, Globulin 2.3, Albumin/Globulin Ratio 1.5 Radiography Diagnostic Testing: Radiology Impression Endo Retro Cholangiopancreatogram 10/03/25 12:30 IMPRESSION: Intraoperative fluoroscopic services provided for ERCP. Biliary stent was placed. Reading Location: [facility] Physical Exam Const oriented x3 and no apparent distress Resp normal respiratory effort GI soft to palpation and non-tender Assessment & Plan Assessment/Plan (1) Choledocholithiasis: PLAN: Patient had choledocholithiasis and had ERCP with stone removal and stent placement. She had some bradycardia and cardiology is seeing her today. She can be discharged home from my standpoint and follow-up with me to schedule elective cholecystectomy. Ashwin Knowles MD Pager: [facility] [address] [place] [address], [address] [place] [address] Office:
--- NOTE | 2025-10-04 09:27 | DS.PCM_ITS ---
Providers Date of Admission: 10/01/25 Date of Discharge: 10/04/25 Primary Care Physician: Dr. Torres Moore MD Consultations 10/01/25 21:47 Consult: General Surgery Routine Consulting Provider: Ashwin Knowles Reason for Consult: gallstone pancreatitis EMERGENT Consult: No Notified: Yes Date Notified: 10/01/25 Time Notified: 20:28 Method of Notification: ED Physician Initiated 10/02/25 10:06 Consult: Gastroenterology Routine Consulting Provider: [facility] Reason for Consult: gallstone pancreatitis EMERGENT Consult: No Notified: Yes Date Notified: 10/02/25 Time Notified: 10:06 Method of Notification: Text 10/03/25 23:46 Consult: Cardiology Routine Consulting Provider: Manuel Leary Reason for Consult: bradycardia, HR 30s EMERGENT Consult: No Notified: Yes Date Notified: 10/04/25 Time Notified: 06:52 Method of Notification: Text Reason For Visit: GALLSTONE PANCREATITIS Diagnosis Discharge Diagnosis (1) Choledocholithiasis: Status: Acute Code(s): K80.50 - Calculus of bile duct without cholangitis or cholecystitis without obstruction Plan Patient is a 45-year-old lady admitted with abdominal pain radiating to the flanks and back. Patient was found to have elevated lipase level and ultrasound did demonstrate cholelithiasis admitted to regular nursing floor for subsequent management 1. Gallstone pancreatitis ? As part of patient management gallbladder ultrasound was ordered which did show Cholelithiasis, with distended gallbladder and biliary ductal dilatation. Mild pancreatic duct dilatation. Distal choledocholithiasis is suspected. Positive sonographic Yao's sign reported but otherwise equivocal exam for acute cholecystitis..Patient admitted to regular nursing floor symptom management with IV fluids and type nausea medication pain meds initiated. Consult placed with both GI as well as general surgery ? 10/03/2025; seen in consultation by Dr. Vasquez plan is for patient to undergo ERCP on 10/03/2025 ? 10/04/2025; patient underwent ERCP on 10/03/2025. Impressions and procedure performed below. Plan is for patient to follow-up with general surgery as outpatient for elective cholecystectomy Impressions : - The entire main bile duct was dilated, with a stone causing an obstruction. - Choledocholithiasis was found. Complete removal was accomplished by biliary sphincterotomy and balloon extraction. - A biliary sphincterotomy was performed. - The biliary tree was swept. - One temporary stent was placed into the common bile duct. 2. Acute transaminitis ? Secondary to cholelithiasis consult has been placed to GI. Gallbladder ultrasound obtained on admission results are as above. Repeated LFTs ? 10/03/2025; patient transaminases trending down ? 10/04/2025; patient LFTs were improving at the time of discharge 3. Hypertension ? Blood pressure controlled, home medications continued with dose adjustment as needed 4. Bipolar disorder ? Continue patient medications including valbenazine, trazodone as well as lamotrigine in addition to benztropine 5. Anemia ? Secondary to chronic disorder monitoring H&H and transfuse if patient becomes symptomatic or hemoglobin falls below 7 6. DVT prophylaxis ? Subcu enoxaparin 7. Bradycardia ? Patient remains asymptomatic this was thought to be medication induced. Ordered 2D echo as part of her evaluation. Patient has been transferred from ICU to PCU for continuous telemonitoring Time spent in the patient's overall evaluation,decision-making process, review of diagnostic data, adjustment of management, discussion with other providers, nursing nursing and ancillary staff involved in patient's care documentation, 35 Minutes Medications at Discharge Home Medications lamotrigine 200 mg tablet 100 mg PO QHS mood disorder 12/20/19 losartan 25 mg tablet 25 mg PO DAILY blood pressure 12/20/19 valbenazine 80 mg capsule 80 mg PO DAILY GEODONE SE 12/20/19 trazodone 100 mg tablet 100 - 300 mg PO QHS PRN sleep 05/22/25 benztropine 2 mg tablet 2 mg PO 4X/DAY side effects 05/29/25 spironolactone 25 mg tablet 50 mg PO BID diuretic 05/29/25 meloxicam 15 mg tablet 15 mg PO PRN pain 06/24/25 pregabalin 150 mg capsule 150 mg PO TID nerve pain 10/01/25 topiramate 200 mg tablet 400 mg PO QHS PRN mood disorder 10/01/25 ziprasidone HCl 20 mg capsule 20 mg PO DAILY antipsychotic 10/01/25 ziprasidone HCl 60 mg capsule 120 mg PO QHS sleep 10/01/25 Physical Exam Narrative GENERAL: cooperative HEENT: Atraumatic; normocephalic EYES; Anicteric, Normal Conjunctiva NECK; supple, normal thyroid, RESPIRATORY: Diminished to auscultation CARDIOVASCULAR: Regular S1 S2,, bradycardic GI: soft, normoactive bowel sounds, nontender : No Renal angle tenderness; EXTREMITIES: No edema, no clubbing, MUSCULOSKELETAL: no muscle wasting NEURO: Awake; no lateralizing signs. SKIN: No Rash PSYCH; Flat affect Weight / BMI Weight Weight: 90.7 kg Body Mass Index (BMI) 30.3 ABG / Lab / Microbiology Data 10/04/25 05:39 10/04/25 05:39 Laboratory: Laboratory Results - last 24 hr 10/04/25 05:39: WBC 4.4, RBC 3.71 L, Hgb 11.5 L, Hct 34.9 L, MCV 94.1, MCH 31.0, MCHC 33.0, RDW Std Deviation 43.8, RDW Coeff of Kushal 12.7, Plt Count 115 L, MPV 12.1 H, Immature Gran % (Auto) 0.200, Neut % (Auto) 56.2, Lymph % (Auto) 37.2, [place] % (Auto) 5.5, Eos % (Auto) 0.7, Baso % (Auto) 0.2, Absolute Neuts (auto) 2.5, Absolute Lymphs (auto) 1.62, Nucleated RBC % 0, Sodium 139, Potassium 3.5, Chloride 110 H, Carbon Dioxide 18.5 L, Anion Gap 11, BUN 9, Creatinine 0.60 L, Estim Creat Clear Calc 138.01, Est GFR (MDRD) Non-Af 112, BUN/Creatinine Ratio 15.1, Glucose 87, Calcium 9.0, Total Bilirubin 0.58, AST 63 H, ALT 200 H, A lkaline Phosphatase 320 H, Total Protein 5.9, Albumin 3.5, Globulin 2.3, Albumin/Globulin Ratio 1.5 Radiography Diagnostic Testing: Radiology Impression Endo Retro Cholangiopancreatogram 10/03/25 12:30 IMPRESSION: Intraoperative fluoroscopic services provided for ERCP. Biliary stent was placed. Reading Location: [place] [address] D/C Instructions Discharge Activity: Return to Normal Activity Call your doctor if you observe: Fever of 101 or Higher, Shortness of breath, Fainting spells and Chest pain DC O2, CPAP, BIPAP Needs Home O2 Discharge instructions: No Meaningful Use Info Meaningful Use Meaningful Use Diagnoses (Choose all that apply): None applicable Discharge Plan Admission Admit Date/Time: 10/01/25 20:23 Attending Provider: José Manuel Obregon Primary Care Provider: Torres Moore Consulting Providers: Kvng Simpson; Elian Rodriguez; Sadiq Vasquez; Amanda Willis; Macy Christopher; Elif Gonzalez; Ashwin Knowles; Manuel Leary Discharge Orders/Prescriptions Prescriptions: Continued trazodone 100 mg tablet 100 - 300 mg PO QHS PRN (Reason: sleep) meloxicam 15 mg tablet 15 mg PO PRN lamotrigine 200 MG tablet 100 mg PO QHS losartan 25 MG tablet 25 mg PO DAILY valbenazine 80 MG capsule 80 mg PO DAILY spironolactone 25 mg tablet 50 mg PO BID Rx Instructions: 50 MG IN AM, 25 MG IN PM benztropine 2 mg tablet 2 mg PO 4X/DAY ziprasidone HCl 20 mg capsule 20 mg PO DAILY topiramate 200 mg tablet 400 mg PO QHS PRN (Reason: mood disorder) ziprasidone HCl 60 mg capsule 120 mg PO QHS pregabalin 150 mg capsule 150 mg PO TID Referrals / Follow Up: Ashwin Knowles MD [Med Staff - Active Staff, General Surgery] - Within 1 Week Sadiq Vasquez DO [Med Staff - Active Staff, Gastroenterology] - Within 2 Weeks Torres Moore MD [Primary Care Provider, Medical] - Within 2 Weeks Disposition Disposition (needs filled in before D/C Order can be placed): Home, Self Care Charges/Coding Visit Charges Inpatient E&M: 05286 Disch Hosp >30min
[2025-10-04 10:57] VITALS: BP 90/51; PULSE 57; RESP 16; TEMP 36.4; O2SAT 97
== END 2025-10-04 11:37 | disposition home or self-care (01) | DRG 439 ==
LOC: ED 19:38 → MS3 20:31 → ICU 10-03 06:37 → PCU 10-03 16:46
PROVIDERS: Internal Medicine; Internal Medicine Gastroenterology; Emergency Provider Emergency Medicine; PCP Family Medicine; Visit Provider Internal Medicine
PROC: 0FC98ZZ Extirpation of Matter from Common Bile Duct, Via Natural or Artificial Opening Endoscopic (ICD-10-PCS; CPT 43260; principal; 2025-10-03 11:25)
DX: K85.10 Biliary acute pancreatitis without necrosis or infection (principal); K80.51 Calculus of bile duct without cholangitis or cholecystitis with obstruction; D63.8 Anemia in other chronic diseases classified elsewhere; F31.9 Bipolar disorder, unspecified; I10 Essential (primary) hypertension; R00.1 Bradycardia, unspecified; Z79.899 Other long term (current) drug therapy; Z87.891 Personal history of nicotine dependence
CPT/HCPCS: 36415; 74330; 76000; 76705; 80048; 80053; 81001; 83690; 83735; 84100; 84484; 84703; 85025; 93005; 99285; C2625; A4216; J2405

== ENCOUNTER 2025-10-08 13:00 | Outpatient (RCR) | payer MEDICARE, MEDICAID, SELFPAY ==
--- NOTE | 2025-06-25 12:59 | HP.PTEVAL ---
Patient's Visit Information Visit Information Visit Information: PRADEEP CROWE is a 44 year old F referred to Physical Therapy by Dr. Mahad Saleh MD with a diagnosis of S/P RC Repair and SAD on 06-11-25. Date of Evaluation: 06/25/25 Physical Therapist: INGRIS Amaya Visit Plan Frequency: 2x /Week Duration: 4 Months Plan: On order pt states to go slow with rehab. Her PROM looks great at eval. 2X/ week for 12-18 weeks for PROM of the L shoulder for 4 weeks (until 07-23) Start AAROM on 07-23 Will assess for strengthening at 8 weeks (08-06-25) to see if ready to advance. May use heat and ice as needed. Subjective Subjective: Pt not sure how she tore her RC but thinks a lot over time. She used to be 300 lbs and did a lot of repetitive overhead stuff and quilting. Pt is 2 weeks post op. said to take out of sling yesterday. She reports that she about the same pain proctor since out of the sling yesterday. She is icing every couple of hours. She has Fibro also and she sees pain management. She is still taking Lyrica and Myloxicam right now. She is sleeping in her bed. She is R handed and the surgery was performed on her L. Pain L shoulder pain: Pain Intensity (Out of 10): 5 Objective Objective: R handed: PROM L shoulder flexion 159 and ER 68 Instructed pt in pendulums (lateral and FW/BW), scapular squeezes, hand ball squeezes Instructed pt ok to use the sling if arm is tired or if in crowded areas Balance/Special Test Scores Quick DASH Score: 70.4525 Goals Goal 1:: I HEP Goal Time Frame: 8-12 Weeks Goal 2:: AROM L shoulder to 170 elevation and 70 degrees ER with no pain by 8 weeks Goal Time Frame: 6-8 Weeks Goal 3:: Be able to use her L arm functionally without having pain Goal Time Frame: 8-12 Weeks Goal 4:: L shoulder strength to be close to equal with the R shoulder by discharge Goal Time Frame: 8-12 Weeks Rehabilitation Potential Rehabilitation Potential: Good Anticipated Interventions Patient/Client Instruction: Educate patient on: Condition and Plan of Care For the Purpose of:: To decrease pain, To decrease swelling/inflammation, To increase ROM, To improve nutrient delivery to tissue, To improve muscle performance and motor function, To improve ability to perform ADL's, To increase tolerance to activity/condition/position, To improve performance and independence with ADL's, To decrease level of supervision to perform tasks, To improve health of tissue, To decrease soft tissue restriction and To increase flexibility/ROM Therapeutic Exercise to Include: Strength training, Power training, Postural training, Flexibilty training, Neuromotor development, Passive ROM, Active ROM and Scapular Strength/Stabilization For the Purpose of:: To decrease pain, To decrease swelling/inflammation, To increase ROM, To increase oxygenation perfusion, To improve muscle performance and motor function, To improve ability to perform ADL's, To increase tolerance to activity/condition/position, To improve performance and independence with ADL's, To decrease level of supervision to perform tasks, To improve ability of physical actions for home/community/work/leisure, To improve health of tissue, To decrease soft tissue restriction and To increase flexibility/ROM Manual Therapy Techniques to Include: Passive ROM For the Purpose of:: To increase ROM Cryotherapy (ice pack, ice massage): Yes Thermo therapy (hot pack): Yes For the Purpose of:: To decrease pain, To decrease swelling/inflammation, To increase ROM and To improve nutrient delivery to tissue Text: Thank you for the opportunity to evaluate your patient. For Medicare and Medicare HMO plans, please review the plan of care and approve it. It will need to be FAXED BACK to us at [phone] for Medicare purposes. For Medicare only, by signing this I certify the plan of care. Please let me know if there are questions or concerns regarding this plan of care. Physician Signature: Date:
--- NOTE | 2025-08-26 13:30 | HP.PTREVAL ---
Re-Evaluation Intro: Dr. Mahad Saleh MD, It has been my pleasure to treat PRADEEP CROWE over the last 16 visits for S/P L RC Repair with arthrex cuffmend graft and SAD on 06-11-25. Please see the progress note below for an update on the physical therapy plan of care! Subjective Subjective: When pt has pain it is the anterior L shoulder. She reports that it hurts when she tries to reach for something out the the side Objective Objective/Function: Full flexion and ABD AROM and ER AROM 80 and IR WFL UE MMT: R shoulder flexion 9.3 and L 5.3 R shoulder ABD 11.4 and L 8.3 R shoulder ER 8.6 and 5.6 R shoulder IR 6.3 and L 6 Plan Plan Plan: 1X/ week for 4-6 weeks for continue of AAROM.AROM and scapular and RC strengthening with HEP Balance/Gait/Functional tests Balance/Special Test Scores Quick DASH Score: 45.4525 Goals Goals Goal 1:: I HEP Goal Time Frame: 8-12 Weeks Goal 2:: AROM L shoulder to 170 elevation and 70 degrees ER with no pain by 8 weeks Goal Time Frame: 6-8 Weeks Goal 3:: Be able to use her L arm functionally without having pain Goal Time Frame: 8-12 Weeks Goal 4:: L shoulder strength to be close to equal with the R shoulder by discharge Goal Time Frame: 8-12 Weeks Anticipated Interventions Anticipated Interventions Patient/Client Instruction: Educate patient on: Condition and Plan of Care For the Purpose of:: To decrease pain, To decrease swelling/inflammation, To increase ROM, To improve nutrient delivery to tissue, To improve muscle performance and motor function, To improve ability to perform ADL's, To increase tolerance to activity/condition/position, To improve performance and independence with ADL's, To decrease level of supervision to perform tasks, To improve health of tissue, To decrease soft tissue restriction and To increase flexibility/ROM Therapeutic Exercise to Include: Strength training, Power training, Postural training, Flexibilty training, Neuromotor development, Passive ROM, Active ROM and Scapular Strength/Stabilization For the Purpose of:: To decrease pain, To decrease swelling/inflammation, To increase ROM, To increase oxygenation perfusion, To improve muscle performance and motor function, To improve ability to perform ADL's, To increase tolerance to activity/condition/position, To improve performance and independence with ADL's, To decrease level of supervision to perform tasks, To improve ability of physical actions for home/community/work/leisure, To improve health of tissue, To decrease soft tissue restriction and To increase flexibility/ROM Manual Therapy Techniques to Include: Passive ROM For the Purpose of:: To increase ROM Cryotherapy (ice pack, ice massage): Yes Thermo therapy (hot pack): Yes For the Purpose of:: To decrease pain, To decrease swelling/inflammation, To increase ROM and To improve nutrient delivery to tissue Re-Evaluation Ending Re-evaluation ending: Please do not hesitate to contact me at [phone] by phone or if you have questions or concerns regarding this new plan of care! Sincerely, Nurys Mckoy, MPT
--- NOTE | 2025-10-08 14:00 | HP.PTDCSUM ---
Discharge Summary D/C summary: It has been my pleasure to treat PRADEEP CROWE referred by Dr. Mahad Saleh MD, with the diagnosis of S/P L RC Repair with arthrex cuffmend graft and SAD on 06-11-25 for a total of 18 visit(s). Discharge Date: 10/08/25 Please see the following information for a summary of their discharge status. Subjective Subjective: She reports that she has not done PT for a few days as she had to have gall stones taken out and now has to get the gallbladder taken out. Pain L shoulder pain: Pain Intensity (Out of 10): 1 Overall Improvement % Improvement: 80 Objective Objective/Function: AROM L shoulder WFL L shoulder MMT: R shoulder flexion 10# and L shoulder flexion 9.1 R shoulder ABD 12.6 and L 10 R shoulder ER 12.4 and L 10.8 R shoulder IR 15.7 add L 12.6 Goals Goal 1:: I HEP Goal Progress: Goal Met Goal 2:: AROM L shoulder to 170 elevation and 70 degrees ER with no pain by 8 weeks Goal Progress: Goal Met Goal 3:: Be able to use her L arm functionally without having pain Goal Progress: Goal Met Goal 4:: L shoulder strength to be close to equal with the R shoulder by discharge Goal Progress: Progressing Plan Plan: DC PT to HEP D/C Information Discharge Comments: DC PT to HEP d/c sentence: If there are questions or concerns regarding this patient's physical therapy, please feel free to call me at [phone]. Thank you for the referral of this patient. Sincerely, Nurys Mckoy, MPT Balance/Gait/Functional tests Balance/Special Test Scores Quick DASH Score: 20.4525 Improvement % Improvement: 80
== END 2025-10-08 19:00 | disposition home or self-care (01) ==
LOC: PT 13:00
PROVIDERS: PCP Family Medicine; Referring Provider Orthopaedic Surgery Sports Medicine; Visit Provider Orthopaedic Surgery Sports Medicine
DX: M25.812 Other specified joint disorders, left shoulder (principal); M75.102 Unspecified rotator cuff tear or rupture of left shoulder, not specified as traumatic; M25.512 Pain in left shoulder
CPT/HCPCS: 97110; 97140; 97161; 97530